=== PATIENT | male | born 1975 | race Caucasian/White ===

== ENCOUNTER 2016-08-13 18:00 | Inpatient (IN) | payer SELFPAY ==
[~2016-08-13] VITALS: Ht 180.3 cm; Wt 104.3 kg
[~2016-08-13 18:00] MED LIST: ALBU1.25 IH; ALBU4TAB3 PO; ALBU8.5H6 IH; FAMO20TA5 PO; HYDR-2666 PO; LORA0.5T96 PO; OMEP20TA63 PO; ONDA4TAB10 SL; THEO400T2 PO
[2016-08-13] MEDS ORDERED: IV NORMAL SALINE 1000ML BAG 1,000 ML IV ONE (19:15)
[2016-08-13 19:17] LABS: BASO # 0.1 x10^3/uL (0.0-0.2); BASO % 1 % (0-3); EOS % 3 % (0-3); HEMOGLOBIN 17.1 g/dL (13.0-17.5); LYMPH # 2.8 x10^3/uL (1.0-4.8); LYMPH % 36 % (24-48); MEAN CORPUSCULAR HEMOGLOBIN 30 pg (25-35); MEAN CORPUSCULAR HGB CONC 35 g/dL (31-37); MEAN CORPUSCULAR VOLUME 86 fL (79-100); MONO % 9 % (0-9); NEUT % 52 % (31-73); PLATELET COUNT 192 x10^3/uL (140-400); RED BLOOD COUNT 5.71 x10^6/uL (4.30-5.70); RED CELL DISTRIBUTION WIDTH 14.8 % (11.5-14.5); WHITE BLOOD COUNT 7.9 x10^3/uL (4.0-11.0)
[2016-08-13 19:25] LABS: BARBITURATES NEG (NEG); BENZODIAZEPINES NEG (NEG); CANNABINOIDS NEG (NEG); COCAINE NEG (NEG); METHADONE NEG (NEG); OPIATES NEG (NEG); PHENCYCLIDINE NEG (NEG)
[2016-08-13 19:30] LABS: ETHANOL, URINE POS (NEG)
[2016-08-13 19:35] LABS: ALBUMIN 3.7 g/dL (3.4-5.0); ALBUMIN/GLOBULIN RATIO 0.8 (1.0-1.7); CREATININE 1.1 mg/dL (0.7-1.3); GFR 74.5; POTASSIUM 3.1 mmol/L (3.5-5.1); TOTAL BILIRUBIN 0.6 mg/dL (0.2-1.0); TOTAL PROTEIN 8.1 g/dL (6.4-8.2)
[2016-08-13 19:36] LABS: PROTHROMBIN TIME PATIENT 12.9 SEC (11.7-14.0)
[2016-08-13] MEDS ORDERED: ONDANSETRON PF 4 MG/2 ML VIAL. IV ONE (19:45)
[2016-08-13] MEDS ORDERED: MVI, ADULT NO.4 WITH VIT K 10 ML, FOLIC ACID 1 MG, THIAMINE 100 MG in IV DEXTROSE 5 %-0... IV ONE ×4 (19:45)
--- NOTE | 2016-08-13 19:56 | RAD ---
PROCEDURE CT cervical spine without contrast. HISTORY Fall, ataxia, head and face injury TECHNIQUE Noncontrast CT imaging was performed of the cervical spine, multiplanar reconstruction images. Exposure: One or more of the following individualized dose reduction techniques were utilized for this exam: 1. Automated exposure control. 2. Adjustment of the mA and/or kV according to patient size. 3. Use of iterative reconstruction technique. COMPARISON None FINDINGS No acute cervical spine fracture is identified. There is facet hypertrophic change greatest on the right at C2-C3 and C3-4. There is negligible anterior spondylolisthesis at C2-3. There is negligible disc osteophyte complex at C3-4 also at C5-C6. No significant osseous cervical spinal stenosis is identified. There is mild cervical levoscoliosis. There is some partial fusion of the lateral masses of C1 to the occipital condyles. IMPRESSION 1. No acute cervical spine fracture is identified. 2. There is facet degenerative change of the superior cervical spine greater on the right, negligible anterior spondylolisthesis C2-3. 3. There is mild cervical levoscoliosis. 4. There is some partial fusion of the lateral masses of C1 to the occipital condyles. Electronically signed by: Rayshawn Holliday MD (Aug 13, 2016 19:55:26)
[2016-08-13 20:01] LABS: CALCIUM 8.6 mg/dL (8.5-10.1)
[2016-08-13 20:11] LABS: OBC FLU VALID
--- NOTE | 2016-08-13 20:52 | RAD ---
CT head and maxillofacial without Indication: Fall with head and facial injury. Axial imaging through the brain and facial bones was performed without contrast. Sagittal and coronal reformations of the facial bones were also performed. CT brain: The ventricles and sulci are within normal limits. No sulcal effacement, midline shift or hemorrhage is detected. The cisterns are patent. Impression: No acute intracranial process is detected. CT maxillofacial: The mandible is intact. The zygomatic arches appear intact. The maxillary sinus bravo are intact. No displaced nasal bone fracture is seen. The orbital bravo appear intact. There is mucosal thickening of ethmoid air cells as well as the maxillary sinuses. Impression: Paranasal sinus mucosal disease. No facial bone fracture is detected. Electronically signed by: Tio Helms MD (Aug 13, 2016 20:51:13)
[2016-08-13] MEDS ORDERED: ACETAMINOPHEN 325 MG TABLET. PO PRN (21:15)
[2016-08-13] MEDS ORDERED: ALBUTEROL SULFATE 2.5 MG/3 ML NEBU. NEB PRN (21:15)
--- NOTE | 2016-08-13 21:17 | PDOC1 ---
History and Physical Date of Admission Date of Admission 08/13/16 Identification/Chief Complaint Chief Complaint fall Problems: Source Source: Caregiver, Chart review, Patient History of Present Illness History of Present Illness 41yo M , heavy drinker ,comes post fall 5ds ago, and abd pain. Pt is drining daily , about 750cc wisky daily, usually had hand tremors for withdrawl , denies seizure. He STOOd up 5ds ago, then fell facing down. He said he didnot drink for 12 hours that day, denies drank. Since then, He felt not himself, with unsteady gait, and N/V daily with some LUQ abd pain. However, still drink 300cc ETOH daily. has asthma, use duoneb 4-[address] all neg Past Medical History Pulmonary: Asthma Past Surgical History Past Surgical History: No pertinent history Family History Family History: Hypertension Social History Smoke: No ALCOHOL: heavy Drugs: Marijuana Current Problem List Problem List Problems Medical Problems: (1) Pancreatitis Status: Acute (2) Syncope Status: Acute Current Medications Current Medications Current Medications Medications (Trade) Dose Ordered Sig/Wil Start Time Stop Time Status Last Admin Dose Admin Acetaminophen (Tylenol) 650 mg PRN Q6HRS PRN 08/13/16 21:15 UNV Folic Acid (Folic Acid) 1 mg DAILY 08/14/16 09:00 UNV Lorazepam (Ativan) 2 mg PRN Q4HRS PRN 08/13/16 21:15 UNV Multivitamins/ Minerals/Folic Acid/Thiamine HCl/ Dextrose/Sodium Chloride (Infuvite Adult/ Iv D5% - 1/2 NS) 1,011.2 ml @ 1,000 mls/ hr 1X ONCE 08/13/16 19:45 08/13/16 20:45 DC 08/13/16 19:49 1,000 MLS/HR Ondansetron HCl (Zofran) 4 mg PRN Q6HRS PRN 08/13/16 21:15 UNV Ondansetron HCl 4 mg 4 mg 1X ONCE 08/13/16 19:45 08/13/16 19:46 DC 08/13/16 19:20 4 MG Sodium Chloride (Iv Sodium Chloride 0.9% 1000ml Bag) 1,000 ml @ 1,000 mls/hr 1X ONCE 08/13/16 19:15 08/13/16 20:14 DC 08/13/16 19:20 1,000 MLS/HR Thiamine HCl (Vitamin B-1) 100 mg DAILY 08/14/16 09:00 UNV Allergies Allergies Allergies Coded Allergies Type Severity Reaction Last Updated Verified No Known Drug Allergies 04/30/16 No ROS Review of System CONSTITUTIONAL: No fever or chills EYES: No recent changes SKIN: No rash or itching CARDIOVASCULAR: No chest pain, syncope, palpitations, or edema RESPIRATORY: No SOB or cough GASTROINTESTINAL: No nausea, vomiting or abdominal pain NEUROLOGICAL: No headaches or weakness ENDOCRINE: No cold or heat intolerance GENITOURINARY: No urgency or frequency of urination MUSCULOSKELETAL: No back pain or joint pain LYMPHATICS: No enlarged lymph nodes PSYCHIATRIC: No anxiety or depression Physical Exam Physical Exam GEN.: No apparent distress. Alert and oriented. HEENT: Head is normocephalic, atraumatic. neck collar on NECK: Supple. LUNGS: Clear to auscultation. HEART: RRR, S1, S2 present. Peripheral pulses intact ABDOMEN: Soft, nontender. Positive bowel sounds. EXTREMITIES: Without any cyanosis. NEUROLOGIC: Normal speech, normal tone PSYCHIATRIC: Normal affect, normal mood. SKIN: No ulcerations Vitals Vitals Vital Signs Date Time Temp Pulse Resp B/P Pulse Ox O2 Delivery O2 Flow Rate FiO2 08/13/16 19:04 98.1 85 16 149/99 98 Room Air 98.1 Labs Labs Laboratory Tests Test 08/13/16 18:30 08/13/16 19:26 White Blood Count 7.9x10^3/uL (4.0-11.0) Red Blood Count 5.71x10^6/uL (4.30-5.70) Hemoglobin 17.1g/dL (13.0-17.5) Hematocrit 49.0% (39.0-53.0) Mean Corpuscular Volume 86fL (79-100) Mean Corpuscular Hemoglobin 30pg (25-35) Mean Corpuscular Hemoglobin Concent 35g/dL (31-37) Red Cell Distribution Width 14.8% (11.5-14.5) Platelet Count 192x10^3/uL (140-400) Neutrophils (%) (Auto) 52% (31-73) Lymphocytes (%) (Auto) 36% (24-48) Monocytes (%) (Auto) 9% (0-9) Eosinophils (%) (Auto) 3% (0-3) Basophils (%) (Auto) 1% (0-3) Neutrophils # (Auto) 4.1x10^3uL (1.8-7.7) Lymphocytes # (Auto) 2.8x10^3/uL (1.0-4.8) Monocytes # (Auto) 0.7x10^3/uL (0.0-1.1) Eosinophils # (Auto) 0.2x10^3/uL (0.0-0.7) Basophils # (Auto) 0.1x10^3/uL (0.0-0.2) Prothrombin Time 12.9SEC (11.7-14.0) Prothromb Time International Ratio 1.0 (0.8-1.1) Activated Partial Thromboplast Time 30SEC (24-38) Sodium Level 138mmol/L (136-145) Potassium Level 3.1mmol/L (3.5-5.1) Chloride Level 96mmol/L (98-107) Carbon Dioxide Level 30mmol/L (21-32) Anion Gap 12 (6-14) Blood Urea Nitrogen 19mg/dL (8-26) Creatinine 1.1mg/dL (0.7-1.3) Estimated GFR (Cockcroft-Gault) 74.5 BUN/Creatinine Ratio 17 (6-20) Glucose Level 126mg/dL (70-99) Calcium Level 8.6mg/dL (8.5-10.1) Total Bilirubin 0.6mg/dL (0.2-1.0) Aspartate Amino Transf (AST/SGOT) 91U/L (15-37) Alanine Aminotransferase (ALT/SGPT) 53U/L (16-63) Alkaline Phosphatase 79U/L (46-116) Troponin I Quantitative < 0.017ng/mL (0.000-0.055) Total Protein 8.1g/dL (6.4-8.2) Albumin 3.7g/dL (3.4-5.0) Albumin/Globulin Ratio 0.8 (1.0-1.7) Lipase 671U/L (73-393) Urine Opiates Screen Neg (NEG) Urine Methadone Screen Neg (NEG) Urine Barbiturates Neg (NEG) Urine Phencyclidine Screen Neg (NEG) Urine Amphetamine/Methamphetamine Neg (NEG) Urine Benzodiazepines Screen Neg (NEG) Urine Cocaine Screen Neg (NEG) Urine Cannabinoids Screen Neg (NEG) Ethyl Alcohol Level 330mg/dL (0-10) Urine Ethyl Alcohol Pos (NEG) Influenza Type A Antigen Negative (NEGATIVE) Influenza Type B Antigen Negative (NEGATIVE) Laboratory Tests Test 08/13/16 18:30 08/13/16 19:26 White Blood Count 7.9x10^3/uL (4.0-11.0) Red Blood Count 5.71x10^6/uL (4.30-5.70) Hemoglobin 17.1g/dL (13.0-17.5) Hematocrit 49.0% (39.0-53.0) Mean Corpuscular Volume 86fL (79-100) Mean Corpuscular Hemoglobin 30pg (25-35) Mean Corpuscular Hemoglobin Concent 35g/dL (31-37) Red Cell Distribution Width 14.8% (11.5-14.5) Platelet Count 192x10^3/uL (140-400) Neutrophils (%) (Auto) 52% (31-73) Lymphocytes (%) (Auto) 36% (24-48) Monocytes (%) (Auto) 9% (0-9) Eosinophils (%) (Auto) 3% (0-3) Basophils (%) (Auto) 1% (0-3) Neutrophils # (Auto) 4.1x10^3uL (1.8-7.7) Lymphocytes # (Auto) 2.8x10^3/uL (1.0-4.8) Monocytes # (Auto) 0.7x10^3/uL (0.0-1.1) Eosinophils # (Auto) 0.2x10^3/uL (0.0-0.7) Basophils # (Auto) 0.1x10^3/uL (0.0-0.2) Prothrombin Time 12.9SEC (11.7-14.0) Prothromb Time International Ratio 1.0 (0.8-1.1) Activated Partial Thromboplast Time 30SEC (24-38) Sodium Level 138mmol/L (136-145) Potassium Level 3.1mmol/L (3.5-5.1) Chloride Level 96mmol/L (98-107) Carbon Dioxide Level 30mmol/L (21-32) Anion Gap 12 (6-14) Blood Urea Nitrogen 19mg/dL (8-26) Creatinine 1.1mg/dL (0.7-1.3) Estimated GFR (Cockcroft-Gault) 74.5 BUN/Creatinine Ratio 17 (6-20) Glucose Level 126mg/dL (70-99) Calcium Level 8.6mg/dL (8.5-10.1) Total Bilirubin 0.6mg/dL (0.2-1.0) Aspartate Amino Transf (AST/SGOT) 91U/L (15-37) Alanine Aminotransferase (ALT/SGPT) 53U/L (16-63) Alkaline Phosphatase 79U/L (46-116) Troponin I Quantitative < 0.017ng/mL (0.000-0.055) Total Protein 8.1g/dL (6.4-8.2) Albumin 3.7g/dL (3.4-5.0) Albumin/Globulin Ratio 0.8 (1.0-1.7) Lipase 671U/L (73-393) Urine Opiates Screen Neg (NEG) Urine Methadone Screen Neg (NEG) Urine Barbiturates Neg (NEG) Urine Phencyclidine Screen Neg (NEG) Urine Amphetamine/Methamphetamine Neg (NEG) Urine Benzodiazepines Screen Neg (NEG) Urine Cocaine Screen Neg (NEG) Urine Cannabinoids Screen Neg (NEG) Ethyl Alcohol Level 330mg/dL (0-10) Urine Ethyl Alcohol Pos (NEG) Influenza Type A Antigen Negative (NEGATIVE) Influenza Type B Antigen Negative (NEGATIVE) VTE Prophylaxis Ordered VTE Prophylaxis Devices: Yes VTE Pharmacological Prophylaxi: Yes Assessment/Plan Assessment/Plan 1. fall 2. AMS, post concussion syndrome vs. 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 abd pain with mild pancreatitis 4. N/V 5. hypotassium 6. heavy drinker 7. marijuana drug abuse plan: 1. neuro consult 2. vitb1, FA daily 3. PTOT 4. lipase daily, abd US dvt ppx ativan BIGG Pollard MD Aug 13, 2016 21:17
[2016-08-13 21:30] LABS: MAGNESIUM 1.8 mg/dL (1.8-2.4); PHOSPHORUS 3.6 mg/dL (2.6-4.7)
[2016-08-13] MEDS ORDERED: POTASSIUM CHLORIDE 20 MEQ TABLET.ER. PO ONE (21:30)
--- NOTE | 2016-08-13 21:54 | ED.ADGEN ---
Past Medical History Past Medical History: Alcoholism, Asthma, GERD, Hypertension Past Surgical History: Tonsillectomy Additional Past Surgical Histo: adnoidectomy, left eye Alcohol Use: Heavy Drug Use: Marijuana Adult General Chief Complaint Chief Complaint: SYNCOPE HPI HPI Patient is a 41 year old man, history of alcohol abuse, GERD, hypertension, COPD, who presents to the emergency department with multiple complaints. Patient states that he had a fall about 5 days ago, "face planted", from which she has residual bruising around his right eye. Patient states that he's felt unsteady with walking since that time, and is almost fallen multiple times. He states that he has had nausea, vomiting, and left lower quadrant abdominal pain consistent with previous episodes of pancreatitis since that time as well. Patient states that he's had several episodes of "either nearly blacking out or blacking out" since that time. His complaining of ambulatory dysfunction, feels he cannot walk a straight line. States had mild blurry vision, and some feeling of being "foggy", although he is awake alert and oriented at this time, able to answer questions appropriately. He does admit to drinking today, states that he generally drinks about 750 mLs of vodka a day. Denies any drugs, does smoke cigarettes. No focal deficits reported, no other injuries, no other complaints. He states that he feels "very dehydrated". Patient states he's noted some streaks of blood in his emesis today, has been vomiting for the past several days. He states he did note dark stools, denies any cassidy blood. Review of Systems Review of Systems Constitutional: Denies fever or chills. [] Eyes: Denies change in visual acuity. [] HENT: Denies nasal congestion or sore throat. [] Respiratory: Denies cough or shortness of breath. [] Cardiovascular: Denies chest pain or edema. [] GI: Left lower quadrant abdominal pain, nausea, vomiting, : Denies dysuria. [] Musculoskeletal: Denies back pain or joint pain. [] Integument: Denies rash. [] Neurologic: Denies headache, focal weakness or sensory changes. [] Endocrine: Denies polyuria or polydipsia. [] Lymphatic: Denies swollen glands. [] Psychiatric: Denies depression or anxiety. [] Current Medications Current Medications Current Medications Medications (Trade) Dose Ordered Sig/Wil Start Time Stop Time Status Last Admin Dose Admin Multivitamins/ Minerals/Folic Acid/Thiamine HCl/ Dextrose/Sodium Chloride (Infuvite Adult/ Iv D5% - 1/2 NS) 1,011.2 ml @ 1,000 mls/ hr 1X ONCE 08/13/16 19:45 08/13/16 20:45 DC 08/13/16 19:49 1,000 MLS/HR Ondansetron HCl 4 mg 4 mg 1X ONCE 08/13/16 19:45 08/13/16 19:46 DC 08/13/16 19:20 4 MG Sodium Chloride (Iv Sodium Chloride 0.9% 1000ml Bag) 1,000 ml @ 1,000 mls/hr 1X ONCE 08/13/16 19:15 08/13/16 20:14 DC 08/13/16 19:20 1,000 MLS/HR Allergies Allergies Allergies Coded Allergies Type Severity Reaction Last Updated Verified No Known Drug Allergies 04/30/16 No Physical Exam Physical Exam Constitutional: Well developed, well nourished, no acute distress, non-toxic appearance. [] HENT: Normocephalic, patient with healing ecchymosis noted underneath the right eye, no nystagmus, no crepitus or bony point tenderness, bilateral external ears normal, oropharynx moist, no oral exudates, nose normal. [] Eyes: PERRLA, EOMI, conjunctiva normal, no discharge. [] Neck: Normal range of motion, no tenderness, supple, no stridor. [] Cardiovascular:Heart rate regular rhythm, no murmur, S1, S2, no rubs or gallops , mild tachycardia. [] Lungs & Thorax: Bilateral breath sounds clear to auscultation, no wheezing, rhonchi, rales. No chest tenderness or crepitus. [] Abdomen: Bowel sounds normal, soft, mild tenderness to palpation in the left lower quadrant, no rebound, rigidity, no guarding, no masses, no pulsatile masses. [] Skin: Warm, dry, no erythema, no rash. [] Back: No tenderness, no CVA tenderness. [] Extremities: No tenderness, no cyanosis, no clubbing, ROM intact, no edema. Negative Homans sign. [] Neurologic: Alert and oriented X 3, normal motor function, normal sensory function, no focal deficits noted. [] Psychologic: Affect normal, judgement normal, mood normal. [] Declined rectal examination in the ED. Current Patient Data Vital Signs Vital Signs Date Time Temp Pulse Resp B/P Pulse Ox O2 Delivery O2 Flow Rate FiO2 08/13/16 19:04 98.1 85 16 149/99 98 Room Air 98.1 Lab Values Laboratory Tests Test 08/13/16 18:30 08/13/16 19:26 White Blood Count 7.9x10^3/uL (4.0-11.0) Red Blood Count 5.71x10^6/uL (4.30-5.70) H Hemoglobin 17.1g/dL (13.0-17.5) Hematocrit 49.0% (39.0-53.0) Mean Corpuscular Volume 86fL (79-100) Mean Corpuscular Hemoglobin 30pg (25-35) Mean Corpuscular Hemoglobin Concent 35g/dL (31-37) Red Cell Distribution Width 14.8% (11.5-14.5) H Platelet Count 192x10^3/uL (140-400) Neutrophils (%) (Auto) 52% (31-73) Lymphocytes (%) (Auto) 36% (24-48) Monocytes (%) (Auto) 9% (0-9) Eosinophils (%) (Auto) 3% (0-3) Basophils (%) (Auto) 1% (0-3) Neutrophils # (Auto) 4.1x10^3uL (1.8-7.7) Lymphocytes # (Auto) 2.8x10^3/uL (1.0-4.8) Monocytes # (Auto) 0.7x10^3/uL (0.0-1.1) Eosinophils # (Auto) 0.2x10^3/uL (0.0-0.7) Basophils # (Auto) 0.1x10^3/uL (0.0-0.2) Prothrombin Time 12.9SEC (11.7-14.0) Prothrombin Time INR 1.0 (0.8-1.1) PTT 30SEC (24-38) Sodium Level 138mmol/L (136-145) Potassium Level 3.1mmol/L (3.5-5.1) L Chloride Level 96mmol/L (98-107) L Carbon Dioxide Level 30mmol/L (21-32) Anion Gap 12 (6-14) Blood Urea Nitrogen 19mg/dL (8-26) Creatinine 1.1mg/dL (0.7-1.3) Estimated GFR (Cockcroft-Gault) 74.5 BUN/Creatinine Ratio 17 (6-20) Glucose Level 126mg/dL (70-99) H Calcium Level 8.6mg/dL (8.5-10.1) Phosphorus Level 3.6mg/dL (2.6-4.7) Magnesium Level 1.8mg/dL (1.8-2.4) Total Bilirubin 0.6mg/dL (0.2-1.0) Aspartate Amino Transferase (AST) 91U/L (15-37) H Alanine Aminotransferase (ALT) 53U/L (16-63) Alkaline Phosphatase 79U/L (46-116) Troponin I Quantitative < 0.017ng/mL (0.000-0.055) Total Protein 8.1g/dL (6.4-8.2) Albumin 3.7g/dL (3.4-5.0) Albumin/Globulin Ratio 0.8 (1.0-1.7) L Lipase 671U/L (73-393) H Urine Opiates Screen Neg (NEG) Urine Methadone Screen Neg (NEG) Urine Barbiturates Neg (NEG) Urine Phencyclidine Screen Neg (NEG) Urine Amphetamine/Methamphetamine Neg (NEG) Urine Benzodiazepines Screen Neg (NEG) Urine Cocaine Screen Neg (NEG) Urine Cannabinoids Screen Neg (NEG) Ethyl Alcohol Level 330mg/dL (0-10) H Urine Ethyl Alcohol Pos (NEG) Influenza Type A Antigen Negative (NEGATIVE) Influenza Type B Antigen Negative (NEGATIVE) Laboratory Tests 08/13/16 18:30 Laboratory Tests 08/13/16 18:30 EKG EKG EC: Sinus rhythm, heart rate 91 beats minute, upright axis, QTC of 432, LA 160, QRS of 90, patient with mild baseline artifact noted, contour abnormalities is noted in the inferior leads, no ST elevations or depressions, no evidence of acute ST abnormalities. As interpreted by me. Interpretation Time: [facility] [address] [place], [place] [id number] IMAGING REPORT Signed PATIENT: YAHIR OLIVEIRA ACCOUNT: [id number] : 1975 LOCATION: ER AGE: 41 SEX: M EXAM STATUS: REG ER ORD. PHYSICIAN: MOOK KIDD DO REASON: fall/ataxia PROCEDURE: HEAD AND MAXILLOFACIAL WO CT head and maxillofacial without Indication: Fall with head and facial injury. Axial imaging through the brain and facial bones was performed without contrast. Sagittal and coronal reformations of the facial bones were also performed. CT brain: The ventricles and sulci are within normal limits. No sulcal effacement, midline shift or hemorrhage is detected. The cisterns are patent. Impression: No acute intracranial process is detected. CT maxillofacial: The mandible is intact. The zygomatic arches appear intact. The maxillary sinus bravo are intact. No displaced nasal bone fracture is seen. The orbital bravo appear intact. There is mucosal thickening of ethmoid air cells as well as the maxillary sinuses. Impression: Paranasal sinus mucosal disease. No facial bone fracture is detected. Electronically signed by: Tio Helms MD (Aug 13, 2016 20:51:13) DICTATED and SIGNED BY: TIO HELMS MD DATE: 08/13/162050 CC: MOOK KIDD DO; HERMILA JACKSON MD ~ Radiology/Procedures Radiology/Procedures [] [facility] [address] [place] [address] IMAGING REPORT Signed PATIENT: YAHIR OLIVEIRA ACCOUNT: [id number] : 1975 LOCATION: ER AGE: 41 SEX: M EXAM STATUS: REG ER ORD. PHYSICIAN: MOOK KIDD DO REASON: fall/ataxia PROCEDURE: HEAD AND MAXILLOFACIAL WO CT head and maxillofacial without Indication: Fall with head and facial injury. Axial imaging through the brain and facial bones was performed without contrast. Sagittal and coronal reformations of the facial bones were also performed. CT brain: The ventricles and sulci are within normal limits. No sulcal effacement, midline shift or hemorrhage is detected. The cisterns are patent. Impression: No acute intracranial process is detected. CT maxillofacial: The mandible is intact. The zygomatic arches appear intact. The maxillary sinus bravo are intact. No displaced nasal bone fracture is seen. The orbital bravo appear intact. There is mucosal thickening of ethmoid air cells as well as the maxillary sinuses. Impression: Paranasal sinus mucosal disease. No facial bone fracture is detected. Electronically signed by: Tio Helms MD (Aug 13, 2016 20:51:13) DICTATED and SIGNED BY: TIO HELMS MD DATE: 08/13/162050 CC: MOOK KIDD DO; HERMILA JACKSON MD ~ Course & Med Decision Making Course & Med Decision Making Pertinent Labs and Imaging studies reviewed. (See chart for details) Patient's examination is consistent with likely recurrent pancreatitis, alcohol level resulted at 330, potassium of 3.1, no further vomiting in the ED, patient with a lipase of 671. Imaging of head, face and neck does not reveal any evidence of acutely concerning findings, c-collar was cleared in the ED without issue. Patient is agreeable for initial hospital, states he is feeling much better after receiving a banana bag in the ED. Findings as above discussed with Dr. Witt of internal medicine, patient accepted to her service as a full admission to the medical telemetry floor, consultation placed for Dr. Bowens of neurology, for patient's gait abnormalities, I did discuss the findings as above with patient, and he is agreeable for admission, patient's symptoms may all be due to his alcohol abuse. We'll place on alcohol withdrawal protocol, follow-up for studies including repeat lipase in a.m., ultrasound of the abdomen is pending at this time. Patient remained stable, comfortable, awaiting transfer to the floor without issue. Dragon Disclaimer Dragon Disclaimer This electronic medical record was generated, in whole or in part, using a voice recognition dictation system. Departure Impression: Primary Impression: Alcoholic pancreatitis Additional Impressions: Abdominal pain Syncope Disposition: 09 ADMITTED INPATIENT Admitting Physician: Joelle Witt Condition: IMPROVED Problem Qualifiers Primary Impression: Alcoholic pancreatitis Chronicity: acute Acute pancreatitis complication: unspecified Qualified Code: K85.20 - Alcohol induced acute pancreatitis without necrosis or infection Additional Impressions: Abdominal pain Abdominal location: left lower quadrant Qualified Code: R10.32 - Left lower quadrant pain Syncope Syncope type: unspecified Qualified Code: R55 - Syncope and collapse MOOK KIDD DO Aug 13, 2016 21:54
[2016-08-13] MEDS: CHLORDIAZEPOXIDE HCL 25 MG CAPSULE PO SCH (22:45)
[2016-08-13] MEDS ORDERED: BUDE10.2 IH (23:27)
[2016-08-13 23:41] VITALS: BP 149/99
[2016-08-13 23:42] VITALS: BP 133/87
--- NOTE | 2016-08-14 00:03 | ACF ---
Admission Forms Criteria SYNCOPE Clinical Indications for Admission to Inpatient Care ( Place 'X' for any and all applicable criteria): Admission is indicated for syncope and ANY ONE of the following (1)(2)(3)(4)(5) (6)(7) : [X]I. Inpatient admission required rather than observation care (Also use Syncope: Observation Care Criteria as appropriate) because of ANY ONE of the following: [ ]a) Hemodynamic instability that is severe or persistent [ ]b) Cardiac arrhythmias of immediate concern identified or strongly suspected (eg, needs electrophysiologic study) [ ]c) Acute coronary syndrome identified (Also use Myocardial Infarction or Angina Criteria form ) [ ]d) Structural cardiac disorder (eg, aortic stenosis) suspected as cause that requires immediate correction [ ]e) Respiratory symptoms (eg, dyspnea, tachypnea) that are severe or persistent [X]f) Neurologic signs or symptoms that are severe or persistent ( eg, stroke, seizures, altered mental status) [ ]g) Severe electrolyte abnormalities requiring inpatient care [ ]h) Supplemental oxygen or respiratory treatment for over 24 hrs that are performable only in acute inpatient setting [ ]i) IV fluid to replace significant ongoing (eg, for over 24 hrs ) losses (>3 L/m2 per day) [ ]j) Continuous intravenous infusion of anticoagulation, platelet inhibitor, vasoactive, or antiarrhythmic medication(15)(16) [ ]k) Pulmonary artery catheter monitoring [ ]l) Temporary pacemaker placement(17) [ ]m) Emergent cardioversion(18) [ ]n) Other conditions, treatment or monitoring requiring inpatient admission [ ]II. Suspicion of imminently dangerous cause (eg, rare causes like pericardial tamponade, pulmonary embolism) [ ]III. Syncope causing severe injury requiring hospitalization Extended stay beyond goal length of stay may be needed for(28) [ ]a) Dangerous arrhythmia(15)(23)(27)(29) [ ]b) Myocardial ischemia [ ]c) Seizure disorder [ ]d) Syncope-related injuries The original [facility] content created by [employer] has been revised. The portions of the content which have been revised are identified through the use of italic text or in bold, and [employer] has neither reviewed nor approved the modified material. All other unmodified content is copyright [employer]. Please see references footnoted in the original [facility] edition 2016 Admission Criteria Met?: Yes MAYUR BEAVERS Aug 14, 2016 00:03
[2016-08-14] MEDS: MORPHINE SULFATE 2 MG/ML DISP.SYRIN. IV PRN ×6 (00:45→23:55)
[2016-08-14] MEDS: ONDANSETRON PF 4 MG/2 ML VIAL. IV PRN ×3 (00:46→18:15)
[2016-08-14 03:37] VITALS: BP 139/83
[2016-08-14] MEDS: CHLORDIAZEPOXIDE HCL 25 MG CAPSULE PO SCH ×4 (03:50→19:55)
[2016-08-14 06:11] LABS: CALCIUM 8.6 mg/dL (8.5-10.1); CREATININE 1.1 mg/dL (0.7-1.3); GFR 74.5; POTASSIUM 3.7 mmol/L (3.5-5.1)
[2016-08-14 06:14] LABS: BASO % 1 % (0-3); EOS % 2 % (0-3); LYMPH # 2.5 x10^3/uL (1.0-4.8); LYMPH % 33 % (24-48); MEAN CORPUSCULAR HEMOGLOBIN 30 pg (25-35); MEAN CORPUSCULAR HGB CONC 34 g/dL (31-37); MEAN CORPUSCULAR VOLUME 88 fL (79-100); MONO % 10 % (0-9); NEUT % 54 % (31-73); PLATELET COUNT 158 x10^3/uL (140-400); RED BLOOD COUNT 5.01 x10^6/uL (4.30-5.70); RED CELL DISTRIBUTION WIDTH 14.6 % (11.5-14.5); WHITE BLOOD COUNT 7.5 x10^3/uL (4.0-11.0)
--- NOTE | 2016-08-14 06:27 | EKG ---
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
[2016-08-14 07:15] VITALS: BP 133/90
--- NOTE | 2016-08-14 07:39 | RAD ---
Abdominal ultrasound, 08/13/2016: History: Abdominal pain The gallbladder is mildly distended. It contains echogenic sludge. No definite gallstones are seen. The gallbladder bravo are not thickened. The common hepatic duct is of normal caliber. The hepatic echogenicity is diffusely increased suggesting fatty change. The liver measures 21 cm in craniocaudad extent. No hepatic mass is evident. The pancreas was largely obscured by overlying bowel. The spleen is within normal limits in size measuring 12.6 cm in length. No renal abnormality is detected. The visualized portions of the aorta and inferior vena cava are unremarkable. Portions of the aorta were obscured by overlying bowel. IMPRESSION: 1. The gallbladder is distended and contains sludge. No gallstones are evident. 2. Hepatomegaly with hepatic steatosis.
--- NOTE | 2016-08-14 08:46 | RAD ---
Portable chest, 08/13/2016: History: Syncope Comparison is made to a study from 11/20/2009. The heart size and pulmonary vascularity are normal. No pulmonary infiltrates are seen. There is no evidence of pleural fluid. IMPRESSION: No acute cardiopulmonary abnormality is detected.
[2016-08-14] MEDS: FOLIC ACID 1 MG TABLET PO SCH (09:00)
[2016-08-14] MEDS: THIAMINE 100 MG TABLET. PO SCH (09:00)
[2016-08-14] MEDS: ENOXAPARIN 40 MG/0.4 ML DISP.SYRIN. SQ SCH (09:01)
[2016-08-14] MEDS: LORAZEPAM 2 MG/ML VIAL IV PRN ×3 (09:03→19:58)
[2016-08-14] MEDS: MVI, ADULT NO.4 WITH VIT K 10 ML, THIAMINE 100 MG, FOLIC ACID 1 MG in IV NORMAL SALINE ... IV SCH ×4 (09:30)
[2016-08-14] MEDS: PROCHLORPERAZINE 10 MG/2 ML VIAL. IV PRN ×2 (10:48→23:55)
--- NOTE | 2016-08-14 11:12 | PDOC ---
PROGRESS NOTES Chief Complaint Chief Complaint EtOH pancreatitis s/p fall ASSESSMENT AND PLAN: 1. EtOH pancreatitis: lipase sl improved, clinically ongoing. clear liquids as tolerated. cont IVF. monitor 2. EtOH gastritis: PPI 3. Nausea: poor response to zofran. add reglan, can alternate PRN 4. EtOH hepatitis: sl elevates in AST. monitor 5. EtOH toxicity: banana bag. ativan PRN for W/D sx 6. Hypokalemia: resolved 7. prophylaxis: PPI, lovenox Vitals Vitals Vital Signs Date Time Temp Pulse Resp B/P Pulse Ox O2 Delivery O2 Flow Rate FiO2 08/14/16 10:31 98 Room Air 08/14/16 07:15 96.6 72 18 133/90 96.6 Physical Exam General: Alert, Oriented X3, Cooperative Heart: Regular rate Lungs: Clear Abdomen: Normal bowel sounds, Other (LUQ TTP) Extremities: No edema Skin: No rashes Labs LABS Laboratory Tests Test 08/13/16 18:30 08/13/16 19:26 08/14/16 05:20 White Blood Count 7.9x10^3/uL (4.0-11.0) 7.5x10^3/uL (4.0-11.0) Red Blood Count 5.71x10^6/uL (4.30-5.70) 5.01x10^6/uL (4.30-5.70) Hemoglobin 17.1g/dL (13.0-17.5) 15.0g/dL (13.0-17.5) Hematocrit 49.0% (39.0-53.0) 44.0% (39.0-53.0) Mean Corpuscular Volume 86fL (79-100) 88fL (79-100) Mean Corpuscular Hemoglobin 30pg (25-35) 30pg (25-35) Mean Corpuscular Hemoglobin Concent 35g/dL (31-37) 34g/dL (31-37) Red Cell Distribution Width 14.8% (11.5-14.5) 14.6% (11.5-14.5) Platelet Count 192x10^3/uL (140-400) 158x10^3/uL (140-400) Neutrophils (%) (Auto) 52% (31-73) 54% (31-73) Lymphocytes (%) (Auto) 36% (24-48) 33% (24-48) Monocytes (%) (Auto) 9% (0-9) 10% (0-9) Eosinophils (%) (Auto) 3% (0-3) 2% (0-3) Basophils (%) (Auto) 1% (0-3) 1% (0-3) Neutrophils # (Auto) 4.1x10^3uL (1.8-7.7) 4.1x10^3uL (1.8-7.7) Lymphocytes # (Auto) 2.8x10^3/uL (1.0-4.8) 2.5x10^3/uL (1.0-4.8) Monocytes # (Auto) 0.7x10^3/uL (0.0-1.1) 0.8x10^3/uL (0.0-1.1) Eosinophils # (Auto) 0.2x10^3/uL (0.0-0.7) 0.1x10^3/uL (0.0-0.7) Basophils # (Auto) 0.1x10^3/uL (0.0-0.2) 0.0x10^3/uL (0.0-0.2) Prothrombin Time 12.9SEC (11.7-14.0) Prothromb Time International Ratio 1.0 (0.8-1.1) Activated Partial Thromboplast Time 30SEC (24-38) Sodium Level 138mmol/L (136-145) 138mmol/L (136-145) Potassium Level 3.1mmol/L (3.5-5.1) 3.7mmol/L (3.5-5.1) Chloride Level 96mmol/L (98-107) 97mmol/L (98-107) Carbon Dioxide Level 30mmol/L (21-32) 27mmol/L (21-32) Anion Gap 12 (6-14) 14 (6-14) Blood Urea Nitrogen 19mg/dL (8-26) 18mg/dL (8-26) Creatinine 1.1mg/dL (0.7-1.3) 1.1mg/dL (0.7-1.3) Estimated GFR (Cockcroft-Gault) 74.5 74.5 BUN/Creatinine Ratio 17 (6-20) Glucose Level 126mg/dL (70-99) 112mg/dL (70-99) Calcium Level 8.6mg/dL (8.5-10.1) 8.6mg/dL (8.5-10.1) Phosphorus Level 3.6mg/dL (2.6-4.7) Magnesium Level 1.8mg/dL (1.8-2.4) Total Bilirubin 0.6mg/dL (0.2-1.0) Aspartate Amino Transf (AST/SGOT) 91U/L (15-37) Alanine Aminotransferase (ALT/SGPT) 53U/L (16-63) Alkaline Phosphatase 79U/L (46-116) Troponin I Quantitative < 0.017ng/mL (0.000-0.055) Total Protein 8.1g/dL (6.4-8.2) Albumin 3.7g/dL (3.4-5.0) Albumin/Globulin Ratio 0.8 (1.0-1.7) Lipase 671U/L (73-393) 511U/L (73-393) Urine Opiates Screen Neg (NEG) Urine Methadone Screen Neg (NEG) Urine Barbiturates Neg (NEG) Urine Phencyclidine Screen Neg (NEG) Urine Amphetamine/Methamphetamine Neg (NEG) Urine Benzodiazepines Screen Neg (NEG) Urine Cocaine Screen Neg (NEG) Urine Cannabinoids Screen Neg (NEG) Ethyl Alcohol Level 330mg/dL (0-10) Urine Ethyl Alcohol Pos (NEG) Influenza Type A Antigen Negative (NEGATIVE) Influenza Type B Antigen Negative (NEGATIVE) Review of Systems Review of Systems in pain, remorseful about being back in hospital for EtOH abuse ANDREW YOST MD Aug 14, 2016 11:12
[2016-08-14 11:15] VITALS: BP 139/88
[2016-08-14 14:57] VITALS: BP 150/97
[2016-08-14 19:00] VITALS: BP 155/117
--- NOTE | 2016-08-14 19:06 | PDOC2 ---
NEUROLOGY CONSULT Date of Admission Date of Admission DATE: 08/14/16 TIME: 18:56 Reason for Consult Reason for Consult: IMPRESSION: Toxic encephalopathy. metabolic encephalopathy. Ataxia. Alcohol intoxication, acute on chronic, alcohol level 330. Pancreatitis. Hepatomegaly. Elevated hepatic enzymes. Tremors. RECOMMENDATIONS/PLAN: Vit B1 supplement. HCT performed, no SAH or ICH. Lab: see orders. Patient education for alcohol abstinence. OT/PT. HISTORY OF THE PRESENT ILLNESS: 41-y-old male patient with history of alcohol drinking for many years. he stated he drinks Wisky about 80% with small amount mix maybe down to 60% of alcohol a cup almost on a daily basis. He developed symptoms as described above to come to the ER of [facility]. His alcohol level was found 330. PAST MEDICAL HISTORY: Please see above. PAST SURGERY HISTORY: No major surgery recently. ALLERGY: Unknown MEDICATIONS: Refer to [facility] HISTORY: Unknown. SOCIAL HISTORY: Lives at home. Denies illicit drug use. He drinks a cup of 60% alcohol a day for many years. REVIEW OF SYSTEMS: Constitutional: No malnutrition, weight loss, cachexia. Head: No traumatic brain or head injury. Skin: No edema, or rash. Ear: No infection, tinnitus. Eyes: No vision loss or color blindness. Nose: No bleeding or purulent discharges. Hearing: No hearing decrease. Neck: No injury. Cardiac: No IL, arrhythmia Pulmonary: No COPD. GI: No GI ulcer, GI bleeding. Urinary/genital: No dysuria, hematuria, incontinence, urinary retention. Endocrinologic: No cousin face, craniofacial dysmorphism, polydactyly, goiter. Skeletomuscular: No muscular atrophy, deformity. Neurological: see HP. Psychiatric: alcohol use/abuse. Otherwise, not [id number] review of systems. PHYSICAL EXAMINATION: General appearance is in subacute distress. HEENT: Normocephalic and nontraumatic. Eyes, nose, ears, and throat are unremarkable. Neck is supple. No lymphadenopathy. No bruits are heard over the carotid artery. No crepitus. Cardiovascular: S1, S2, regular rate and rhythm. Pulmonary: Clear to auscultation bilaterally. Abdomen: Bowel sounds are positive. Extremities: No rash, lesions, or edema. No restriction of range of motion NEUROLOGICAL EXAMINATION: Drowsiness. Oriented to place and person. PERRL. EOMI. CN: no focal findings. Muscle tone: within normal. Muscle strength: 5 DTR: 2 Plantar reflex: Flexor response bilaterally Gait: not examined in bed. Sensory exam: no abnormal findings. Mild cerebellar signs elicited. F-T-N test not accurate. Current Medications Current Medications Current Medications Sodium Chloride (Iv Sodium Chloride 0.9% 1000ml Bag) 1,000 ml @ 1,000 mls/hr 1X ONCE IV Last administered on 08/13/16 19:20; Start 08/13/16 at 19:15; Stop 08/13/16 at 20:14; Status DC Ondansetron HCl 4 mg 4 mg 1X ONCE IV Last administered on 08/13/16 19:20; Start 08/13/16 at 19:45; Stop 08/13/16 at 19:46; Status DC Multivitamins/ Minerals/Folic Acid/Thiamine HCl/ Dextrose/Sodium Chloride ( Infuvite Adult/ Iv D5% - 1/ NS) 1,011.2 ml @ 1,000 mls/ hr 1X ONCE IV Last administered on 08/13/16 19:49; Start 08/13/16 at 19:45; Stop 08/13/16 at 20:45 ; Status DC Acetaminophen (Tylenol) 650 mg PRN Q6HRS PRN PO FEVER Last administered on 08/13 22:45; Start 08/13/16 at 21:15 Ondansetron HCl (Zofran) 4 mg PRN Q6HRS PRN IV NAUSEA Last administered on 06:16; Start 08/13/16 at 21:15; Stop 08/14/16 at 10:29; Status DC Thiamine HCl (Vitamin B-1) 100 mg DAILY PO Last administered on 08/14/16 09:00 ; Start 08/14/16 at 09:00 Folic Acid (Folic Acid) 1 mg DAILY PO Last administered on 08/14/16 09:00; Start 08/14/16 at 09:00 Lorazepam (Ativan) 1 mg PRN Q6HRS PRN PO ANXIETY / AGITATION; Start 08/13/16 at 21:15 Lorazepam (Ativan) 2 mg PRN Q4HRS PRN IV ANXIETY / AGITATION Last administered on 08/14/16 13:02; Start 08/13/16 at 21:15 Enoxaparin Sodium (Lovenox 40mg Syringe) 40 mg DAILY SQ Last administered on 09:01; Start 08/14/16 at 09:00 Albuterol Sulfate (Ventolin Neb Soln) 2.5 mg PRN Q4HRS PRN NEB SHORTNESS OF BREATH; Start 08/13/16 at 21:15 Potassium Chloride (Klor-Con) 40 meq 1X ONCE PO Last administered on 22:20; Start 08/13/16 at 21:30; Stop 08/13/16 at 21:31; Status DC Albuterol/ Ipratropium 3 ml 3 ml RTQID NEB ; Start 08/14/16 at 08:00 Multivitamins/ Minerals/Thiamine HCl/Folic Acid/ Sodium Chloride (Infuvite Adult / Iv Sodium Chloride 0.9% 1000ml Bag) 1,011.2 ml @ 100 mls/ hr DAILY IV Last administered on 08/14/16 09:30; Start 08/14/16 at 09:00; Stop 08/19/16 at 08:59 Chlordiazepoxide (Librium) 25 mg Q6H PO Last administered on 08/14/16 16:01; Start 08/13/16 at 22:00; Stop 08/15/16 at 04:01 Morphine Sulfate 2 mg PRN Q2HR PRN IV PAIN Last administered on 08/14/16 04:45 ; Start 08/14/16 at 00:30; Stop 08/14/16 at 07:43; Status DC Morphine Sulfate 2 mg PRN Q4HRS PRN IV PAIN Last administered on 08/14/16 18:28 ; Start 08/14/16 at 07:45 Ondansetron HCl (Zofran) 8 mg PRN Q8HRS PRN IV NAUSEA 1ST CHOICE Last administered on 08/14/16 18:15; Start 08/14/16 at 14:30 Prochlorperazine Edisylate (Compazine) 10 mg PRN Q8HRS PRN IV NAUSEA/VOMITING Last administered on 08/14/16 10:48; Start 08/14/16 at 10:30 Active Scripts Active Famotidine 20 Mg Tablet 20 Mg PO BID Zofran Odt (Ondansetron) 4 Mg Tab.rapdis 1 Tab SL Q8HRS Ativan (Lorazepam) 0.5 Mg Tablet 0.5 Mg PO TID Zofran Odt (Ondansetron) 4 Mg Tab.rapdis 1 Tab SL PRN Q8HRS PRN Hydrocodone-Apap 5-325 (Hydrocodone Bit/Acetaminophen) 1 Each Tablet 1 Tab PO PRN Q6HRS PRN Reported Symbicort 160-4.5 Mcg Inhaler (Budesonide/Formoterol Fumarate) 10.2 Gm Hfa.aer.ad 2 Puff IH BID Prilosec Otc (Omeprazole Magnesium) 20 Mg Tablet.dr 1 Tab PO DAILY Theophylline (Theophylline Anhydrous) 400 Mg Tablet.er 300 Mg PO BID Albuterol Sulfate Neb Soln (Albuterol Sulfate) 1.25 Mg/3 Ml Vial.neb 1.25 Mg IH Allergies Allergies: Coded Allergies: No Known Drug Allergies (Unverified , 04/30/16) Vitals VITALS Vital Signs Date Time Temp Pulse Resp B/P Pulse Ox O2 Delivery O2 Flow Rate FiO2 08/14/16 18:28 20 Room Air 08/14/16 14:57 97.8 106 150/97 96 97.8 Labs Labs Laboratory Tests Test 08/13/16 18:30 08/13/16 19:26 08/14/16 05:20 White Blood Count 7.9x10^3/uL (4.0-11.0) 7.5x10^3/uL (4.0-11.0) Red Blood Count 5.71x10^6/uL (4.30-5.70) 5.01x10^6/uL (4.30-5.70) Hemoglobin 17.1g/dL (13.0-17.5) 15.0g/dL (13.0-17.5) Hematocrit 49.0% (39.0-53.0) 44.0% (39.0-53.0) Mean Corpuscular Volume 86fL (79-100) 88fL (79-100) Mean Corpuscular Hemoglobin 30pg (25-35) 30pg (25-35) Mean Corpuscular Hemoglobin Concent 35g/dL (31-37) 34g/dL (31-37) Red Cell Distribution Width 14.8% (11.5-14.5) 14.6% (11.5-14.5) Platelet Count 192x10^3/uL (140-400) 158x10^3/uL (140-400) Neutrophils (%) (Auto) 52% (31-73) 54% (31-73) Lymphocytes (%) (Auto) 36% (24-48) 33% (24-48) Monocytes (%) (Auto) 9% (0-9) 10% (0-9) Eosinophils (%) (Auto) 3% (0-3) 2% (0-3) Basophils (%) (Auto) 1% (0-3) 1% (0-3) Neutrophils # (Auto) 4.1x10^3uL (1.8-7.7) 4.1x10^3uL (1.8-7.7) Lymphocytes # (Auto) 2.8x10^3/uL (1.0-4.8) 2.5x10^3/uL (1.0-4.8) Monocytes # (Auto) 0.7x10^3/uL (0.0-1.1) 0.8x10^3/uL (0.0-1.1) Eosinophils # (Auto) 0.2x10^3/uL (0.0-0.7) 0.1x10^3/uL (0.0-0.7) Basophils # (Auto) 0.1x10^3/uL (0.0-0.2) 0.0x10^3/uL (0.0-0.2) Prothrombin Time 12.9SEC (11.7-14.0) Prothromb Time International Ratio 1.0 (0.8-1.1) Activated Partial Thromboplast Time 30SEC (24-38) Sodium Level 138mmol/L (136-145) 138mmol/L (136-145) Potassium Level 3.1mmol/L (3.5-5.1) 3.7mmol/L (3.5-5.1) Chloride Level 96mmol/L (98-107) 97mmol/L (98-107) Carbon Dioxide Level 30mmol/L (21-32) 27mmol/L (21-32) Anion Gap 12 (6-14) 14 (6-14) Blood Urea Nitrogen 19mg/dL (8-26) 18mg/dL (8-26) Creatinine 1.1mg/dL (0.7-1.3) 1.1mg/dL (0.7-1.3) Estimated GFR (Cockcroft-Gault) 74.5 74.5 BUN/Creatinine Ratio 17 (6-20) Glucose Level 126mg/dL (70-99) 112mg/dL (70-99) Calcium Level 8.6mg/dL (8.5-10.1) 8.6mg/dL (8.5-10.1) Phosphorus Level 3.6mg/dL (2.6-4.7) Magnesium Level 1.8mg/dL (1.8-2.4) Total Bilirubin 0.6mg/dL (0.2-1.0) Aspartate Amino Transf (AST/SGOT) 91U/L (15-37) Alanine Aminotransferase (ALT/SGPT) 53U/L (16-63) Alkaline Phosphatase 79U/L (46-116) Troponin I Quantitative < 0.017ng/mL (0.000-0.055) Total Protein 8.1g/dL (6.4-8.2) Albumin 3.7g/dL (3.4-5.0) Albumin/Globulin Ratio 0.8 (1.0-1.7) Lipase 671U/L (73-393) 511U/L (73-393) Urine Opiates Screen Neg (NEG) Urine Methadone Screen Neg (NEG) Urine Barbiturates Neg (NEG) Urine Phencyclidine Screen Neg (NEG) Urine Amphetamine/Methamphetamine Neg (NEG) Urine Benzodiazepines Screen Neg (NEG) Urine Cocaine Screen Neg (NEG) Urine Cannabinoids Screen Neg (NEG) Ethyl Alcohol Level 330mg/dL (0-10) Urine Ethyl Alcohol Pos (NEG) Influenza Type A Antigen Negative (NEGATIVE) Influenza Type B Antigen Negative (NEGATIVE) Creatine Kinase 134U/L (39-308) Vitamin B12 Level 608pg/mL (211-946) Thyroid Stimulating Hormone (TSH) 1.705uIU/mL (0.358-3.74) Laboratory Tests Test 08/13/16 19:26 08/14/16 05:20 Influenza Type A Antigen Negative (NEGATIVE) Influenza Type B Antigen Negative (NEGATIVE) White Blood Count 7.5x10^3/uL (4.0-11.0) Red Blood Count 5.01x10^6/uL (4.30-5.70) Hemoglobin 15.0g/dL (13.0-17.5) Hematocrit 44.0% (39.0-53.0) Mean Corpuscular Volume 88fL (79-100) Mean Corpuscular Hemoglobin 30pg (25-35) Mean Corpuscular Hemoglobin Concent 34g/dL (31-37) Red Cell Distribution Width 14.6% (11.5-14.5) Platelet Count 158x10^3/uL (140-400) Neutrophils (%) (Auto) 54% (31-73) Lymphocytes (%) (Auto) 33% (24-48) Monocytes (%) (Auto) 10% (0-9) Eosinophils (%) (Auto) 2% (0-3) Basophils (%) (Auto) 1% (0-3) Neutrophils # (Auto) 4.1x10^3uL (1.8-7.7) Lymphocytes # (Auto) 2.5x10^3/uL (1.0-4.8) Monocytes # (Auto) 0.8x10^3/uL (0.0-1.1) Eosinophils # (Auto) 0.1x10^3/uL (0.0-0.7) Basophils # (Auto) 0.0x10^3/uL (0.0-0.2) Sodium Level 138mmol/L (136-145) Potassium Level 3.7mmol/L (3.5-5.1) Chloride Level 97mmol/L (98-107) Carbon Dioxide Level 27mmol/L (21-32) Anion Gap 14 (6-14) Blood Urea Nitrogen 18mg/dL (8-26) Creatinine 1.1mg/dL (0.7-1.3) Estimated GFR (Cockcroft-Gault) 74.5 Glucose Level 112mg/dL (70-99) Calcium Level 8.6mg/dL (8.5-10.1) Creatine Kinase 134U/L (39-308) Lipase 511U/L (73-393) Vitamin B12 Level 608pg/mL (211-946) Thyroid Stimulating Hormone (TSH) 1.705uIU/mL (0.358-3.74) EFE CRUZ MD Aug 14, 2016 19:06
[2016-08-14 22:48] VITALS: BP 149/102
[2016-08-15] MEDS: LORAZEPAM 2 MG/ML VIAL IV PRN ×4 (01:59→20:58)
[2016-08-15] MEDS: CHLORDIAZEPOXIDE HCL 25 MG CAPSULE PO SCH (04:00)
[2016-08-15] MEDS: MORPHINE SULFATE 2 MG/ML DISP.SYRIN. IV PRN ×4 (04:16→19:19)
[2016-08-15] MEDS: ONDANSETRON PF 4 MG/2 ML VIAL. IV PRN ×2 (04:16→15:26)
[2016-08-15 05:02] LABS: BASO # 0.1 x10^3/uL (0.0-0.2); BASO % 1 % (0-3); EOS % 6 % (0-3); HEMATOCRIT 37.3 % (39.0-53.0); LYMPH % 36 % (24-48); MEAN CORPUSCULAR HEMOGLOBIN 30 pg (25-35); MEAN CORPUSCULAR HGB CONC 35 g/dL (31-37); MEAN CORPUSCULAR VOLUME 87 fL (79-100); MONO % 8 % (0-9); NEUT % 50 % (31-73); PLATELET COUNT 101 x10^3/uL (140-400); RED BLOOD COUNT 4.28 x10^6/uL (4.30-5.70); RED CELL DISTRIBUTION WIDTH 14.2 % (11.5-14.5); WHITE BLOOD COUNT 5.6 x10^3/uL (4.0-11.0)
[2016-08-15 05:19] LABS: ALBUMIN 2.9 g/dL (3.4-5.0); ALBUMIN/GLOBULIN RATIO 0.9 (1.0-1.7); CALCIUM 8.6 mg/dL (8.5-10.1); CREATININE 1.2 mg/dL (0.7-1.3); GFR 67.4; MAGNESIUM 1.4 mg/dL (1.8-2.4); POTASSIUM 3.4 mmol/L (3.5-5.1); TOTAL BILIRUBIN 1.2 mg/dL (0.2-1.0); TOTAL PROTEIN 6.1 g/dL (6.4-8.2)
[2016-08-15 07:15] VITALS: BP 137/92
[2016-08-15] MEDS: THIAMINE 100 MG TABLET. PO SCH (08:30)
[2016-08-15] MEDS: FOLIC ACID 1 MG TABLET PO SCH (08:30)
[2016-08-15] MEDS: MVI, ADULT NO.4 WITH VIT K 10 ML, THIAMINE 100 MG, FOLIC ACID 1 MG in IV NORMAL SALINE ... IV SCH ×4 (08:30)
[2016-08-15] MEDS: ENOXAPARIN 40 MG/0.4 ML DISP.SYRIN. SQ SCH (08:31)
[2016-08-15] MEDS: PROCHLORPERAZINE 10 MG/2 ML VIAL. IV PRN ×2 (08:51→19:03)
[2016-08-15 11:16] VITALS: BP 126/85
--- NOTE | 2016-08-15 13:01 | PDOC ---
PROGRESS NOTES Chief Complaint Chief Complaint EtOH pancreatitis s/p fall ASSESSMENT AND PLAN: 1. EtOH pancreatitis: monitor lipase. clinically ongoing. advance diet to full liquids 2. EtOH gastritis: PPI 3. Nausea: improved. zofran or reglan PRN 4. EtOH hepatitis: sl worse by labs, new hyperbilirubinemia. monitor 5. EtOH toxicity: banana bag. ativan PRN for W/D sx 6. Hypokalemia: resolved 7. prophylaxis: PPI, lovenox Vitals Vitals Vital Signs Date Time Temp Pulse Resp B/P Pulse Ox O2 Delivery O2 Flow Rate FiO2 08/15/16 11:16 98.2 90 16 126/85 96 Room Air 98.2 Physical Exam General: Alert, Oriented X3, Cooperative Heart: Regular rate Lungs: Clear Abdomen: Normal bowel sounds, Other (LUQ TTP) Extremities: No edema Skin: No rashes Labs LABS Laboratory Tests Test 08/15/16 04:46 White Blood Count 5.6x10^3/uL (4.0-11.0) Red Blood Count 4.28x10^6/uL (4.30-5.70) Hemoglobin 13.0g/dL (13.0-17.5) Hematocrit 37.3% (39.0-53.0) Mean Corpuscular Volume 87fL (79-100) Mean Corpuscular Hemoglobin 30pg (25-35) Mean Corpuscular Hemoglobin Concent 35g/dL (31-37) Red Cell Distribution Width 14.2% (11.5-14.5) Platelet Count 101x10^3/uL (140-400) Neutrophils (%) (Auto) 50% (31-73) Lymphocytes (%) (Auto) 36% (24-48) Monocytes (%) (Auto) 8% (0-9) Eosinophils (%) (Auto) 6% (0-3) Basophils (%) (Auto) 1% (0-3) Neutrophils # (Auto) 2.8x10^3uL (1.8-7.7) Lymphocytes # (Auto) 2.0x10^3/uL (1.0-4.8) Monocytes # (Auto) 0.4x10^3/uL (0.0-1.1) Eosinophils # (Auto) 0.3x10^3/uL (0.0-0.7) Basophils # (Auto) 0.1x10^3/uL (0.0-0.2) Sodium Level 139mmol/L (136-145) Potassium Level 3.4mmol/L (3.5-5.1) Chloride Level 103mmol/L (98-107) Carbon Dioxide Level 28mmol/L (21-32) Anion Gap 8 (6-14) Blood Urea Nitrogen 14mg/dL (8-26) Creatinine 1.2mg/dL (0.7-1.3) Estimated GFR (Cockcroft-Gault) 67.4 BUN/Creatinine Ratio 12 (6-20) Glucose Level 108mg/dL (70-99) Calcium Level 8.6mg/dL (8.5-10.1) Magnesium Level 1.4mg/dL (1.8-2.4) Total Bilirubin 1.2mg/dL (0.2-1.0) Aspartate Amino Transf (AST/SGOT) 116U/L (15-37) Alanine Aminotransferase (ALT/SGPT) 48U/L (16-63) Alkaline Phosphatase 58U/L (46-116) Total Protein 6.1g/dL (6.4-8.2) Albumin 2.9g/dL (3.4-5.0) Albumin/Globulin Ratio 0.9 (1.0-1.7) Review of Systems Review of Systems lethargic, pt aware of MS changes - benzo induced. abd pain improved, jdry ANDREW YOST MD Aug 15, 2016 13:01
[2016-08-15] MEDS: IPRATRPIUM/ALBUTEROL 0.5/2.5MG 3 ML NEBU. NEB SCH ×2 (14:49→20:00)
[2016-08-15 15:03] VITALS: BP 134/88
--- NOTE | 2016-08-15 15:42 | PDOC ---
PROGRESS NOTES Assessment Assessment Toxic encephalopathy. metabolic encephalopathy. Ataxia, alcohol related. Alcohol intoxication, acute on chronic, alcohol level 330. Pancreatitis. Hepatomegaly. Elevated hepatic enzymes. Tremors. RECOMMENDATIONS/PLAN: Vit B1 supplement. HCT performed, no SAH or ICH. Treat pancreatitis per floor team. Treat medical diseases. Patient education for alcohol abstinence. OT/PT. Brain MRI if not improve. He need to have a PCP. HISTORY OF THE PRESENT ILLNESS: 41-y-old male patient with history of alcohol drinking for many years. he stated he drinks Whisky about 80% with small amount mix maybe down to 60% of alcohol a cup almost on a daily basis. He developed symptoms as described above to come to the ER of [facility]. His alcohol level was found 330. PAST MEDICAL HISTORY: Please see above. PAST SURGERY HISTORY: No major surgery recently. ALLERGY: Unknown MEDICATIONS: Refer to [facility] HISTORY: Unknown. SOCIAL HISTORY: Lives at home. Denies illicit drug use. He drinks a cup of 60% alcohol a day for many years. REVIEW OF SYSTEMS: Constitutional: No malnutrition, weight loss, cachexia. Head: No traumatic brain or head injury. Skin: No edema, or rash. Ear: No infection, tinnitus. Eyes: No vision loss or color blindness. Nose: No bleeding or purulent discharges. Hearing: No hearing decrease. Neck: No injury. Cardiac: No ND, arrhythmia Pulmonary: No COPD. GI: No GI ulcer, GI bleeding. Urinary/genital: No dysuria, hematuria, incontinence, urinary retention. Endocrinologic: No cousin face, craniofacial dysmorphism, polydactyly, goiter. Skeletomuscular: No muscular atrophy, deformity. Neurological: see HP. Psychiatric: alcohol use/abuse. Otherwise, not [id number] review of systems. PHYSICAL EXAMINATION: General appearance is in subacute distress. HEENT: Normocephalic and nontraumatic. Eyes, nose, ears, and throat are unremarkable. Neck is supple. No lymphadenopathy. No bruits are heard over the carotid artery. No crepitus. Cardiovascular: S1, S2, regular rate and rhythm. Pulmonary: Clear to auscultation bilaterally. Abdomen: Bowel sounds are positive. Extremities: No rash, lesions, or edema. No restriction of range of motion NEUROLOGICAL EXAMINATION: Drowsiness. Oriented to place and person. PERRL. EOMI. CN: no focal findings. Muscle tone: within normal. Muscle strength: 5 DTR: 2 Plantar reflex: Flexor response bilaterally Gait: able to walk. Sensory exam: no abnormal findings. Mild cerebellar signs elicited. F-T-N test not accurate. Objective Objective Vital Signs Date Time Temp Pulse Resp B/P Pulse Ox O2 Delivery O2 Flow Rate FiO2 08/15/16 15:24 20 97 Room Air 08/15/16 15:03 97.5 63 134/88 97.5 Intake and Output 08/15/16 07:00 Intake Total 2500 ml Output Total 400 ml Balance 2100 ml Intake Oral 2500 ml Output Urine Total 400 ml # Voids 2 Vitals Signs Vitals VS - Last 72 Hours, by Label Date Time Temp Pulse Resp B/P Pulse Ox O2 Delivery O2 Flow Rate FiO2 08/15/16 15:24 20 97 Room Air 08/15/16 15:03 97.5 63 18 134/88 97 Room Air 97.5 08/15/16 11:16 98.2 90 16 126/85 96 Room Air 98.2 08/15/16 09:19 20 96 Room Air 08/15/16 08:49 18 95 Room Air 08/15/16 08:00 Room Air 08/15/16 07:15 98.7 86 18 137/92 95 Room Air 98.7 08/15/16 04:16 18 Room Air 08/14/16 23:55 26 Room Air 08/14/16 22:48 97.6 85 20 149/102 99 Room Air 97.6 08/14/16 20:00 Room Air 08/14/16 19:00 97.5 85 18 155/117 98 Room Air 97.5 08/14/16 18:28 20 Room Air 08/14/16 14:57 97.8 106 18 150/97 96 Room Air 97.8 08/14/16 11:15 97.7 80 18 139/88 97 Room Air 97.7 08/14/16 08:03 98 Room Air 08/14/16 08:00 Room Air 08/14/16 07:15 96.6 72 18 133/90 96 Room Air 96.6 Laboratory Laboratory Laboratory Tests Test 08/15/16 04:46 White Blood Count 5.6x10^3/uL (4.0-11.0) Red Blood Count 4.28x10^6/uL (4.30-5.70) Hemoglobin 13.0g/dL (13.0-17.5) Hematocrit 37.3% (39.0-53.0) Mean Corpuscular Volume 87fL (79-100) Mean Corpuscular Hemoglobin 30pg (25-35) Mean Corpuscular Hemoglobin Concent 35g/dL (31-37) Red Cell Distribution Width 14.2% (11.5-14.5) Platelet Count 101x10^3/uL (140-400) Neutrophils (%) (Auto) 50% (31-73) Lymphocytes (%) (Auto) 36% (24-48) Monocytes (%) (Auto) 8% (0-9) Eosinophils (%) (Auto) 6% (0-3) Basophils (%) (Auto) 1% (0-3) Neutrophils # (Auto) 2.8x10^3uL (1.8-7.7) Lymphocytes # (Auto) 2.0x10^3/uL (1.0-4.8) Monocytes # (Auto) 0.4x10^3/uL (0.0-1.1) Eosinophils # (Auto) 0.3x10^3/uL (0.0-0.7) Basophils # (Auto) 0.1x10^3/uL (0.0-0.2) Sodium Level 139mmol/L (136-145) Potassium Level 3.4mmol/L (3.5-5.1) Chloride Level 103mmol/L (98-107) Carbon Dioxide Level 28mmol/L (21-32) Anion Gap 8 (6-14) Blood Urea Nitrogen 14mg/dL (8-26) Creatinine 1.2mg/dL (0.7-1.3) Estimated GFR (Cockcroft-Gault) 67.4 BUN/Creatinine Ratio 12 (6-20) Glucose Level 108mg/dL (70-99) Calcium Level 8.6mg/dL (8.5-10.1) Magnesium Level 1.4mg/dL (1.8-2.4) Total Bilirubin 1.2mg/dL (0.2-1.0) Aspartate Amino Transf (AST/SGOT) 116U/L (15-37) Alanine Aminotransferase (ALT/SGPT) 48U/L (16-63) Alkaline Phosphatase 58U/L (46-116) Total Protein 6.1g/dL (6.4-8.2) Albumin 2.9g/dL (3.4-5.0) Albumin/Globulin Ratio 0.9 (1.0-1.7) Comment Review of Relevant I have reviewed the following items wali (where applicable) has been applied. EFE CRUZ MD Aug 15, 2016 15:42
[2016-08-15 19:00] VITALS: BP 145/95
[2016-08-15 23:00] VITALS: BP 145/98
[2016-08-16] MEDS: LORAZEPAM 2 MG/ML VIAL IV PRN ×6 (01:07→23:54)
[2016-08-16] MEDS: ONDANSETRON PF 4 MG/2 ML VIAL. IV PRN ×3 (01:13→20:03)
[2016-08-16] MEDS: MORPHINE SULFATE 2 MG/ML DISP.SYRIN. IV PRN ×6 (01:15→23:54)
[2016-08-16 03:00] VITALS: BP 158/101
[2016-08-16 05:16] LABS: BASO % 1 % (0-3); EOS % 5 % (0-3); HEMATOCRIT 33.6 % (39.0-53.0); LYMPH # 1.4 x10^3/uL (1.0-4.8); LYMPH % 28 % (24-48); MEAN CORPUSCULAR HEMOGLOBIN 31 pg (25-35); MEAN CORPUSCULAR HGB CONC 36 g/dL (31-37); MEAN CORPUSCULAR VOLUME 86 fL (79-100); MONO % 10 % (0-9); NEUT % 57 % (31-73); PLATELET COUNT 89 x10^3/uL (140-400); RED BLOOD COUNT 3.92 x10^6/uL (4.30-5.70); RED CELL DISTRIBUTION WIDTH 14.6 % (11.5-14.5); WHITE BLOOD COUNT 4.9 x10^3/uL (4.0-11.0)
[2016-08-16 05:45] LABS: ALBUMIN 2.7 g/dL (3.4-5.0); ALBUMIN/GLOBULIN RATIO 0.8 (1.0-1.7); CALCIUM 8.2 mg/dL (8.5-10.1); CREATININE 1.1 mg/dL (0.7-1.3); GFR 74.5; MAGNESIUM 1.4 mg/dL (1.8-2.4); POTASSIUM 3.6 mmol/L (3.5-5.1); TOTAL BILIRUBIN 0.6 mg/dL (0.2-1.0); TOTAL PROTEIN 6.1 g/dL (6.4-8.2)
[2016-08-16 07:00] VITALS: BP 151/99
[2016-08-16] MEDS: IPRATRPIUM/ALBUTEROL 0.5/2.5MG 3 ML NEBU. NEB SCH ×4 (07:45→20:04)
[2016-08-16] MEDS: THIAMINE 100 MG TABLET. PO SCH (08:46)
[2016-08-16] MEDS: FOLIC ACID 1 MG TABLET PO SCH (08:46)
[2016-08-16] MEDS: ENOXAPARIN 40 MG/0.4 ML DISP.SYRIN. SQ SCH (08:47)
[2016-08-16] MEDS: MVI, ADULT NO.4 WITH VIT K 10 ML, THIAMINE 100 MG, FOLIC ACID 1 MG in IV NORMAL SALINE ... IV SCH ×4 (10:01)
[2016-08-16 10:52] VITALS: BP 132/80
--- NOTE | 2016-08-16 11:48 | PDOC ---
PROGRESS NOTES Assessment Assessment Toxic encephalopathy. Metabolic encephalopathy. Ataxia, alcohol related. Alcohol intoxication, acute on chronic, alcohol level 330. Pancreatitis. Hepatomegaly. Elevated hepatic enzymes. Tremors. RECOMMENDATIONS/PLAN: Continue Vit B1 supplement. HCT performed, no SAH or ICH. Treat pancreatitis per floor team. Treat medical diseases. Patient education for alcohol abstinence. OT/PT. He need to have a PCP. HISTORY OF THE PRESENT ILLNESS: 41-y-old male patient with history of alcohol drinking for many years. he stated he drinks Whisky about 80% with small amount mix maybe down to 60% of alcohol a cup almost on a daily basis. He developed symptoms as described above to come to the ER of [facility]. His alcohol level was found 330. He stated he has been doing much better and able to walk near normal on 08/16/16. PAST MEDICAL HISTORY: Please see above. PAST SURGERY HISTORY: No major surgery recently. ALLERGY: Unknown MEDICATIONS: Refer to [facility] HISTORY: Unknown. SOCIAL HISTORY: Lives at home. Denies illicit drug use. He drinks a cup of 60% alcohol a day for many years. REVIEW OF SYSTEMS: Constitutional: No malnutrition, weight loss, cachexia. Head: No traumatic brain or head injury. Skin: No edema, or rash. Ear: No infection, tinnitus. Eyes: No vision loss or color blindness. Nose: No bleeding or purulent discharges. Hearing: No hearing decrease. Neck: No injury. Cardiac: No AR, arrhythmia Pulmonary: No COPD. GI: No GI ulcer, GI bleeding. Urinary/genital: No dysuria, hematuria, incontinence, urinary retention. Endocrinologic: No cousin face, craniofacial dysmorphism, polydactyly, goiter. Skeletomuscular: No muscular atrophy, deformity. Neurological: see HP. Psychiatric: alcohol use/abuse. Otherwise, not [id number] review of systems. PHYSICAL EXAMINATION: General appearance is in no acute distress. HEENT: Normocephalic and nontraumatic. Eyes, nose, ears, and throat are unremarkable. Neck is supple. No lymphadenopathy. No bruits are heard over the carotid artery. No crepitus. Cardiovascular: S1, S2, regular rate and rhythm. Pulmonary: Clear to auscultation bilaterally. Abdomen: Bowel sounds are positive. Extremities: No rash, lesions, or edema. No restriction of range of motion NEUROLOGICAL EXAMINATION: Awake. Sitting in chair. Oriented to time, place and person. PERRL. EOMI. CN: no focal findings. Muscle tone: within normal. Muscle strength: 5 DTR: 2 Plantar reflex: Flexor response bilaterally Gait: able to walk at his baseline normal. Sensory exam: no abnormal findings. Mild cerebellar signs elicited. F-T-N test not accurate. Mild tremors noted in hands. Objective Objective Vital Signs Date Time Temp Pulse Resp B/P Pulse Ox O2 Delivery O2 Flow Rate FiO2 08/16/16 11:18 Room Air 08/16/16 10:52 97.4 92 18 132/80 98 97.4 Intake and Output 08/16/16 07:00 Intake Total 1720 ml Output Total 350 ml Balance 1370 ml Intake Oral 1720 ml Output Urine Total 350 ml # Voids 4 # Bowel Movements 1 Vitals Signs Vitals VS - Last 72 Hours, by Label Date Time Temp Pulse Resp B/P Pulse Ox O2 Delivery O2 Flow Rate FiO2 08/16/16 11:18 Room Air 08/16/16 10:52 97.4 92 18 132/80 98 Room Air 97.4 08/16/16 10:02 20 98 Room Air 08/16/16 08:00 Room Air 08/16/16 07:46 99 Room Air 08/16/16 07:00 97.5 73 18 151/99 98 Room Air 97.5 08/16/16 06:19 20 99 Room Air 08/16/16 05:49 20 Room Air 08/16/16 03:00 98.1 75 20 158/101 97 98.1 08/16/16 01:15 20 Room Air 08/15/16 23:00 98.3 80 18 145/98 99 98.3 08/15/16 20:03 98 Room Air 08/15/16 19:19 20 Room Air 08/15/16 19:00 98.0 81 20 145/95 98 98.0 08/15/16 15:24 20 97 Room Air 08/15/16 15:03 97.5 63 18 134/88 97 Room Air 97.5 08/15/16 11:16 98.2 90 16 126/85 96 Room Air 98.2 08/15/16 08:49 18 95 Room Air 08/15/16 08:00 Room Air 08/15/16 07:15 98.7 86 18 137/92 95 Room Air 98.7 Laboratory Laboratory Laboratory Tests Test 08/16/16 05:05 White Blood Count 4.9x10^3/uL (4.0-11.0) Red Blood Count 3.92x10^6/uL (4.30-5.70) Hemoglobin 12.0g/dL (13.0-17.5) Hematocrit 33.6% (39.0-53.0) Mean Corpuscular Volume 86fL (79-100) Mean Corpuscular Hemoglobin 31pg (25-35) Mean Corpuscular Hemoglobin Concent 36g/dL (31-37) Red Cell Distribution Width 14.6% (11.5-14.5) Platelet Count 89x10^3/uL (140-400) Neutrophils (%) (Auto) 57% (31-73) Lymphocytes (%) (Auto) 28% (24-48) Monocytes (%) (Auto) 10% (0-9) Eosinophils (%) (Auto) 5% (0-3) Basophils (%) (Auto) 1% (0-3) Neutrophils # (Auto) 2.8x10^3uL (1.8-7.7) Lymphocytes # (Auto) 1.4x10^3/uL (1.0-4.8) Monocytes # (Auto) 0.5x10^3/uL (0.0-1.1) Eosinophils # (Auto) 0.2x10^3/uL (0.0-0.7) Basophils # (Auto) 0.0x10^3/uL (0.0-0.2) Sodium Level 140mmol/L (136-145) Potassium Level 3.6mmol/L (3.5-5.1) Chloride Level 104mmol/L (98-107) Carbon Dioxide Level 28mmol/L (21-32) Anion Gap 8 (6-14) Blood Urea Nitrogen 8mg/dL (8-26) Creatinine 1.1mg/dL (0.7-1.3) Estimated GFR (Cockcroft-Gault) 74.5 BUN/Creatinine Ratio 7 (6-20) Glucose Level 114mg/dL (70-99) Calcium Level 8.2mg/dL (8.5-10.1) Magnesium Level 1.4mg/dL (1.8-2.4) Total Bilirubin 0.6mg/dL (0.2-1.0) Aspartate Amino Transf (AST/SGOT) 53U/L (15-37) Alanine Aminotransferase (ALT/SGPT) 39U/L (16-63) Alkaline Phosphatase 56U/L (46-116) Total Protein 6.1g/dL (6.4-8.2) Albumin 2.7g/dL (3.4-5.0) Albumin/Globulin Ratio 0.8 (1.0-1.7) Lipase 345U/L (73-393) Comment Review of Relevant I have reviewed the following items wali (where applicable) has been applied. EFE CRUZ MD Aug 16, 2016 11:48
[2016-08-16] MEDS ORDERED: methylPREDNISolone SOD SUCC PF 40 MG/ML VIAL. IV ONE (12:30)
--- NOTE | 2016-08-16 12:34 | PDOC ---
PROGRESS NOTES Chief Complaint Chief Complaint EtOH pancreatitis s/p fall ASSESSMENT AND PLAN: 1. EtOH pancreatitis: lipase improved, pain improved. advance diet 2. EtOH gastritis: PPI 3. Nausea: improved. zofran or reglan PRN 4. EtOH hepatitis: recovering. monitor 5. EtOH toxicity: banana bag. ativan PRN for W/D sx. still significant tremor 6. Hypokalemia: resolved 7. gout: new flare. IV steroids x1 today; start colchine and allopurinol in AM 7. prophylaxis: PPI, lovenox Vitals Vitals Vital Signs Date Time Temp Pulse Resp B/P Pulse Ox O2 Delivery O2 Flow Rate FiO2 08/16/16 11:18 Room Air 08/16/16 10:52 97.4 92 18 132/80 98 97.4 Physical Exam General: Alert, Oriented X3, Cooperative Heart: Regular rate Lungs: Clear Abdomen: Normal bowel sounds, Other (LUQ TTP) Extremities: No edema Skin: No rashes Labs LABS Laboratory Tests Test 08/16/16 05:05 White Blood Count 4.9x10^3/uL (4.0-11.0) Red Blood Count 3.92x10^6/uL (4.30-5.70) Hemoglobin 12.0g/dL (13.0-17.5) Hematocrit 33.6% (39.0-53.0) Mean Corpuscular Volume 86fL (79-100) Mean Corpuscular Hemoglobin 31pg (25-35) Mean Corpuscular Hemoglobin Concent 36g/dL (31-37) Red Cell Distribution Width 14.6% (11.5-14.5) Platelet Count 89x10^3/uL (140-400) Neutrophils (%) (Auto) 57% (31-73) Lymphocytes (%) (Auto) 28% (24-48) Monocytes (%) (Auto) 10% (0-9) Eosinophils (%) (Auto) 5% (0-3) Basophils (%) (Auto) 1% (0-3) Neutrophils # (Auto) 2.8x10^3uL (1.8-7.7) Lymphocytes # (Auto) 1.4x10^3/uL (1.0-4.8) Monocytes # (Auto) 0.5x10^3/uL (0.0-1.1) Eosinophils # (Auto) 0.2x10^3/uL (0.0-0.7) Basophils # (Auto) 0.0x10^3/uL (0.0-0.2) Sodium Level 140mmol/L (136-145) Potassium Level 3.6mmol/L (3.5-5.1) Chloride Level 104mmol/L (98-107) Carbon Dioxide Level 28mmol/L (21-32) Anion Gap 8 (6-14) Blood Urea Nitrogen 8mg/dL (8-26) Creatinine 1.1mg/dL (0.7-1.3) Estimated GFR (Cockcroft-Gault) 74.5 BUN/Creatinine Ratio 7 (6-20) Glucose Level 114mg/dL (70-99) Calcium Level 8.2mg/dL (8.5-10.1) Magnesium Level 1.4mg/dL (1.8-2.4) Total Bilirubin 0.6mg/dL (0.2-1.0) Aspartate Amino Transf (AST/SGOT) 53U/L (15-37) Alanine Aminotransferase (ALT/SGPT) 39U/L (16-63) Alkaline Phosphatase 56U/L (46-116) Total Protein 6.1g/dL (6.4-8.2) Albumin 2.7g/dL (3.4-5.0) Albumin/Globulin Ratio 0.8 (1.0-1.7) Lipase 345U/L (73-393) Review of Systems Review of Systems feels much better, thinks he is ready for home. gout pain developing in L big toe Comment Review of Relevant I have reviewed the following items wali (where applicable) has been applied. Labs Laboratory Tests Test 08/15/16 04:46 08/16/16 05:05 White Blood Count 5.6x10^3/uL (4.0-11.0) 4.9x10^3/uL (4.0-11.0) Red Blood Count 4.28x10^6/uL (4.30-5.70) 3.92x10^6/uL (4.30-5.70) Hemoglobin 13.0g/dL (13.0-17.5) 12.0g/dL (13.0-17.5) Hematocrit 37.3% (39.0-53.0) 33.6% (39.0-53.0) Mean Corpuscular Volume 87fL (79-100) 86fL (79-100) Mean Corpuscular Hemoglobin 30pg (25-35) 31pg (25-35) Mean Corpuscular Hemoglobin Concent 35g/dL (31-37) 36g/dL (31-37) Red Cell Distribution Width 14.2% (11.5-14.5) 14.6% (11.5-14.5) Platelet Count 101x10^3/uL (140-400) 89x10^3/uL (140-400) Neutrophils (%) (Auto) 50% (31-73) 57% (31-73) Lymphocytes (%) (Auto) 36% (24-48) 28% (24-48) Monocytes (%) (Auto) 8% (0-9) 10% (0-9) Eosinophils (%) (Auto) 6% (0-3) 5% (0-3) Basophils (%) (Auto) 1% (0-3) 1% (0-3) Neutrophils # (Auto) 2.8x10^3uL (1.8-7.7) 2.8x10^3uL (1.8-7.7) Lymphocytes # (Auto) 2.0x10^3/uL (1.0-4.8) 1.4x10^3/uL (1.0-4.8) Monocytes # (Auto) 0.4x10^3/uL (0.0-1.1) 0.5x10^3/uL (0.0-1.1) Eosinophils # (Auto) 0.3x10^3/uL (0.0-0.7) 0.2x10^3/uL (0.0-0.7) Basophils # (Auto) 0.1x10^3/uL (0.0-0.2) 0.0x10^3/uL (0.0-0.2) Sodium Level 139mmol/L (136-145) 140mmol/L (136-145) Potassium Level 3.4mmol/L (3.5-5.1) 3.6mmol/L (3.5-5.1) Chloride Level 103mmol/L (98-107) 104mmol/L (98-107) Carbon Dioxide Level 28mmol/L (21-32) 28mmol/L (21-32) Anion Gap 8 (6-14) 8 (6-14) Blood Urea Nitrogen 14mg/dL (8-26) 8mg/dL (8-26) Creatinine 1.2mg/dL (0.7-1.3) 1.1mg/dL (0.7-1.3) Estimated GFR (Cockcroft-Gault) 67.4 74.5 BUN/Creatinine Ratio 12 (6-20) 7 (6-20) Glucose Level 108mg/dL (70-99) 114mg/dL (70-99) Calcium Level 8.6mg/dL (8.5-10.1) 8.2mg/dL (8.5-10.1) Magnesium Level 1.4mg/dL (1.8-2.4) 1.4mg/dL (1.8-2.4) Total Bilirubin 1.2mg/dL (0.2-1.0) 0.6mg/dL (0.2-1.0) Aspartate Amino Transf (AST/SGOT) 116U/L (15-37) 53U/L (15-37) Alanine Aminotransferase (ALT/SGPT) 48U/L (16-63) 39U/L (16-63) Alkaline Phosphatase 58U/L (46-116) 56U/L (46-116) Total Protein 6.1g/dL (6.4-8.2) 6.1g/dL (6.4-8.2) Albumin 2.9g/dL (3.4-5.0) 2.7g/dL (3.4-5.0) Albumin/Globulin Ratio 0.9 (1.0-1.7) 0.8 (1.0-1.7) Lipase 611U/L (73-393) 345U/L (73-393) Laboratory Tests Test 08/16/16 05:05 White Blood Count 4.9x10^3/uL (4.0-11.0) Red Blood Count 3.92x10^6/uL (4.30-5.70) Hemoglobin 12.0g/dL (13.0-17.5) Hematocrit 33.6% (39.0-53.0) Mean Corpuscular Volume 86fL (79-100) Mean Corpuscular Hemoglobin 31pg (25-35) Mean Corpuscular Hemoglobin Concent 36g/dL (31-37) Red Cell Distribution Width 14.6% (11.5-14.5) Platelet Count 89x10^3/uL (140-400) Neutrophils (%) (Auto) 57% (31-73) Lymphocytes (%) (Auto) 28% (24-48) Monocytes (%) (Auto) 10% (0-9) Eosinophils (%) (Auto) 5% (0-3) Basophils (%) (Auto) 1% (0-3) Neutrophils # (Auto) 2.8x10^3uL (1.8-7.7) Lymphocytes # (Auto) 1.4x10^3/uL (1.0-4.8) Monocytes # (Auto) 0.5x10^3/uL (0.0-1.1) Eosinophils # (Auto) 0.2x10^3/uL (0.0-0.7) Basophils # (Auto) 0.0x10^3/uL (0.0-0.2) Sodium Level 140mmol/L (136-145) Potassium Level 3.6mmol/L (3.5-5.1) Chloride Level 104mmol/L (98-107) Carbon Dioxide Level 28mmol/L (21-32) Anion Gap 8 (6-14) Blood Urea Nitrogen 8mg/dL (8-26) Creatinine 1.1mg/dL (0.7-1.3) Estimated GFR (Cockcroft-Gault) 74.5 BUN/Creatinine Ratio 7 (6-20) Glucose Level 114mg/dL (70-99) Calcium Level 8.2mg/dL (8.5-10.1) Magnesium Level 1.4mg/dL (1.8-2.4) Total Bilirubin 0.6mg/dL (0.2-1.0) Aspartate Amino Transf (AST/SGOT) 53U/L (15-37) Alanine Aminotransferase (ALT/SGPT) 39U/L (16-63) Alkaline Phosphatase 56U/L (46-116) Total Protein 6.1g/dL (6.4-8.2) Albumin 2.7g/dL (3.4-5.0) Albumin/Globulin Ratio 0.8 (1.0-1.7) Lipase 345U/L (73-393) Medications Current Medications Sodium Chloride (Iv Sodium Chloride 0.9% 1000ml Bag) 1,000 ml @ 1,000 mls/hr 1X ONCE IV Last administered on 08/13/16 19:20; Start 08/13/16 at 19:15; Stop 08/13/16 at 20:14; Status DC Ondansetron HCl 4 mg 4 mg 1X ONCE IV Last administered on 08/13/16 19:20; Start 08/13/16 at 19:45; Stop 08/13/16 at 19:46; Status DC Multivitamins/ Minerals/Folic Acid/Thiamine HCl/ Dextrose/Sodium Chloride ( Infuvite Adult/ Iv D5% - 1/2 NS) 1,011.2 ml @ 1,000 mls/ hr 1X ONCE IV Last administered on 08/13/16 19:49; Start 08/13/16 at 19:45; Stop 08/13/16 at 20:45 ; Status DC Acetaminophen (Tylenol) 650 mg PRN Q6HRS PRN PO FEVER Last administered on 08/13 22:45; Start 08/13/16 at 21:15 Ondansetron HCl (Zofran) 4 mg PRN Q6HRS PRN IV NAUSEA Last administered on 06:16; Start 08/13/16 at 21:15; Stop 08/14/16 at 10:29; Status DC Thiamine HCl (Vitamin B-1) 100 mg DAILY PO Last administered on 08/16/16 08:46 ; Start 08/14/16 at 09:00 Folic Acid (Folic Acid) 1 mg DAILY PO Last administered on 08/16/16 08:46; Start 08/14/16 at 09:00 Lorazepam (Ativan) 1 mg PRN Q6HRS PRN PO ANXIETY / AGITATION; Start 08/13/16 at 21:15 Lorazepam (Ativan) 2 mg PRN Q4HRS PRN IV ANXIETY / AGITATION Last administered on 08/16/16 10:04; Start 08/13/16 at 21:15 Enoxaparin Sodium (Lovenox 40mg Syringe) 40 mg DAILY SQ Last administered on 08:47; Start 08/14/16 at 09:00 Albuterol Sulfate (Ventolin Neb Soln) 2.5 mg PRN Q4HRS PRN NEB SHORTNESS OF BREATH; Start 08/13/16 at 21:15 Potassium Chloride (Klor-Con) 40 meq 1X ONCE PO Last administered on 22:20; Start 08/13/16 at 21:30; Stop 08/13/16 at 21:31; Status DC Albuterol/ Ipratropium 3 ml 3 ml RTQID NEB Last administered on 08/16/16 11:17 ; Start 08/14/16 at 08:00 Multivitamins/ Minerals/Thiamine HCl/Folic Acid/ Sodium Chloride (Infuvite Adult / Iv Sodium Chloride 0.9% 1000ml Bag) 1,011.2 ml @ 100 mls/ hr DAILY IV Last administered on 08/16/16 10:01; Start 08/14/16 at 09:00; Stop 08/19/16 at 08:59 Chlordiazepoxide (Librium) 25 mg Q6H PO Last administered on 08/15/16 04:00; Start 08/13/16 at 22:00; Stop 08/15/16 at 04:01; Status DC Morphine Sulfate 2 mg PRN Q2HR PRN IV PAIN Last administered on 08/14/16 04:45 ; Start 08/14/16 at 00:30; Stop 08/14/16 at 07:43; Status DC Morphine Sulfate 2 mg PRN Q4HRS PRN IV PAIN Last administered on 08/16/16 10:02 ; Start 08/14/16 at 07:45 Ondansetron HCl (Zofran) 8 mg PRN Q8HRS PRN IV NAUSEA 1ST CHOICE Last administered on 08/16/16 10:06; Start 08/14/16 at 14:30 Prochlorperazine Edisylate (Compazine) 10 mg PRN Q8HRS PRN IV NAUSEA/VOMITING, 2ND CHOICE Last administered on 08/15/16 19:03; Start 08/14/16 at 10:30 Active Scripts Active Famotidine 20 Mg Tablet 20 Mg PO BID Zofran Odt (Ondansetron) 4 Mg Tab.rapdis 1 Tab SL Q8HRS Ativan (Lorazepam) 0.5 Mg Tablet 0.5 Mg PO TID Zofran Odt (Ondansetron) 4 Mg Tab.rapdis 1 Tab SL PRN Q8HRS PRN Hydrocodone-Apap 5-325 (Hydrocodone Bit/Acetaminophen) 1 Each Tablet 1 Tab PO PRN Q6HRS PRN Reported Symbicort 160-4.5 Mcg Inhaler (Budesonide/Formoterol Fumarate) 10.2 Gm Hfa.aer.ad 2 Puff IH BID Prilosec Otc (Omeprazole Magnesium) 20 Mg Tablet.dr 1 Tab PO DAILY Theophylline (Theophylline Anhydrous) 400 Mg Tablet.er 300 Mg PO BID Albuterol Sulfate Neb Soln (Albuterol Sulfate) 1.25 Mg/3 Ml Vial.neb 1.25 Mg IH Vitals/I & O Vital Sign - Last 24 Hours 08/15/16 08/15/16 08/15/16 08/15/16 15:03 15:24 19:00 19:19 Temp 97.5 98.0 97.5 98.0 Pulse 63 81 Resp 18 20 20 20 B/P 134/88 145/95 Pulse Ox 97 97 98 O2 Delivery Room Air Room Air Room Air 08/15/16 08/15/16 08/16/16 08/16/16 20:03 23:00 01:15 03:00 Temp 98.3 98.1 98.3 98.1 Pulse 80 75 Resp 18 20 20 B/P 145/98 158/101 Pulse Ox 98 99 97 O2 Delivery Room Air Room Air 08/16/16 08/16/16 08/16/16 08/16/16 05:49 07:00 07:46 08:00 Temp 97.5 97.5 Pulse 73 Resp 20 18 B/P 151/99 Pulse Ox 98 99 O2 Delivery Room Air Room Air Room Air Room Air 08/16/16 08/16/16 08/16/16 08/16/16 10:02 10:32 10:52 11:18 Temp 97.4 97.4 Pulse 92 Resp 20 20 18 B/P 132/80 Pulse Ox 98 98 98 O2 Delivery Room Air Room Air Room Air Room Air Intake and Output 08/15/16 08/15/16 08/16/16 15:00 23:00 07:00 Intake Total 1000 ml 480 ml 240 ml Output Total 350 ml Balance 1000 ml 130 ml 240 ml ANDREW YOST MD Aug 16, 2016 12:34
[2016-08-16] MEDS: COLCHICINE 0.6 MG TABLET PO SCH (12:48)
[2016-08-16] MEDS: ALLOPURINOL 300 MG TABLET. PO SCH (12:49)
[2016-08-16] MEDS: PROCHLORPERAZINE 10 MG/2 ML VIAL. IV PRN ×2 (15:01→23:16)
[2016-08-16 15:12] VITALS: BP 149/104
[2016-08-16 19:59] VITALS: BP 157/99
[2016-08-16] MEDS: LORAZEPAM 1 MG TABLET. PO PRN (23:15)
[2016-08-16 23:59] VITALS: BP 142/87
[2016-08-17 03:59] VITALS: BP 143/93
[2016-08-17] MEDS: MORPHINE SULFATE 2 MG/ML DISP.SYRIN. IV PRN ×2 (04:31→08:40)
[2016-08-17] MEDS: LORAZEPAM 2 MG/ML VIAL IV PRN (04:31)
[2016-08-17 05:26] LABS: BASO % 0 % (0-3); EOS % 0 % (0-3); HEMATOCRIT 36.8 % (39.0-53.0); HEMOGLOBIN 12.5 g/dL (13.0-17.5); LYMPH # 0.7 x10^3/uL (1.0-4.8); LYMPH % 7 % (24-48); MEAN CORPUSCULAR HEMOGLOBIN 31 pg (25-35); MEAN CORPUSCULAR HGB CONC 34 g/dL (31-37); MEAN CORPUSCULAR VOLUME 89 fL (79-100); MONO % 7 % (0-9); NEUT % 85 % (31-73); PLATELET COUNT 115 x10^3/uL (140-400); RED BLOOD COUNT 4.11 x10^6/uL (4.30-5.70); RED CELL DISTRIBUTION WIDTH 14.7 % (11.5-14.5); WHITE BLOOD COUNT 9.5 x10^3/uL (4.0-11.0)
[2016-08-17 05:54] LABS: ALBUMIN 3.2 g/dL (3.4-5.0); ALBUMIN/GLOBULIN RATIO 0.8 (1.0-1.7); CALCIUM 9.3 mg/dL (8.5-10.1); GFR 83.2; MAGNESIUM 1.5 mg/dL (1.8-2.4); POTASSIUM 4.2 mmol/L (3.5-5.1); TOTAL BILIRUBIN 0.3 mg/dL (0.2-1.0); TOTAL PROTEIN 7.3 g/dL (6.4-8.2)
[2016-08-17 07:00] VITALS: BP 170/125
[2016-08-17] MEDS: IPRATRPIUM/ALBUTEROL 0.5/2.5MG 3 ML NEBU. NEB SCH ×2 (08:00→12:00)
[2016-08-17] MEDS: ENOXAPARIN 40 MG/0.4 ML DISP.SYRIN. SQ SCH (08:38)
[2016-08-17] MEDS: FOLIC ACID 1 MG TABLET PO SCH (08:38)
[2016-08-17] MEDS: COLCHICINE 0.6 MG TABLET PO SCH (08:38)
[2016-08-17] MEDS: THIAMINE 100 MG TABLET. PO SCH (08:38)
[2016-08-17] MEDS: ONDANSETRON PF 4 MG/2 ML VIAL. IV PRN (08:39)
[2016-08-17] MEDS: ALLOPURINOL 300 MG TABLET. PO SCH (08:39)
[2016-08-17] MEDS: MVI, ADULT NO.4 WITH VIT K 10 ML, THIAMINE 100 MG, FOLIC ACID 1 MG in IV NORMAL SALINE ... IV SCH ×4 (08:39)
[2016-08-17] MEDS: LORAZEPAM 1 MG TABLET. PO PRN (10:16)
[2016-08-17 10:58] VITALS: BP 146/97
--- NOTE | 2016-08-17 11:48 | PDOC ---
PROGRESS NOTES Assessment Assessment Toxic encephalopathy. Metabolic encephalopathy. Acute ataxia, alcohol intoxication. Alcohol intoxication, acute on chronic, alcohol level 330. Pancreatitis. Hepatomegaly. Elevated hepatic enzymes. Tremors. RECOMMENDATIONS/PLAN: Continue Vit B1 supplement. HCT performed, no SAH or ICH. Treat pancreatitis per floor team. Treat medical diseases. Patient education for alcohol abstinence. OT/PT. He need to have a PCP. HISTORY OF THE PRESENT ILLNESS: 41-y-old male patient with history of alcohol drinking for many years. he stated he drinks Whisky about 80% with small amount mix maybe down to 60% of alcohol a cup almost on a daily basis. He developed symptoms as described above to come to the ER of [facility]. His alcohol level was found 330. He stated he has been doing much better and able to walk near normal since and ataxia has significantly improved after treatment. PAST MEDICAL HISTORY: Please see above. PAST SURGERY HISTORY: No major surgery recently. ALLERGY: Unknown MEDICATIONS: Refer to [facility] HISTORY: Unknown. SOCIAL HISTORY: Lives at home. Denies illicit drug use. He drinks a cup of 60% alcohol a day for many years. REVIEW OF SYSTEMS: Constitutional: No malnutrition, weight loss, cachexia. Head: No traumatic brain or head injury. Skin: No edema, or rash. Ear: No infection, tinnitus. Eyes: No vision loss or color blindness. Nose: No bleeding or purulent discharges. Hearing: No hearing decrease. Neck: No injury. Cardiac: No SD, arrhythmia Pulmonary: No COPD. GI: No GI ulcer, GI bleeding. Urinary/genital: No dysuria, hematuria, incontinence, urinary retention. Endocrinologic: No cousin face, craniofacial dysmorphism, polydactyly, goiter. Skeletomuscular: No muscular atrophy, deformity. Neurological: see HP. Psychiatric: alcohol use/abuse. Otherwise, not [id number] review of systems. PHYSICAL EXAMINATION: General appearance is in no acute distress. HEENT: Normocephalic and nontraumatic. Eyes, nose, ears, and throat are unremarkable. Neck is supple. No lymphadenopathy. No bruits are heard over the carotid artery. No crepitus. Cardiovascular: S1, S2, regular rate and rhythm. Pulmonary: Clear to auscultation bilaterally. Abdomen: Bowel sounds are positive. Extremities: No rash, lesions, or edema. No restriction of range of motion NEUROLOGICAL EXAMINATION: Awake. Sitting in chair. Oriented to time, place and person. PERRL. EOMI. CN: no focal findings. Muscle tone: within normal. Muscle strength: 5 DTR: 2 Plantar reflex: Flexor response bilaterally Gait: able to walk near normal. Sensory exam: no abnormal findings. Mild cerebellar signs elicited. F-T-N test not accurate. Mild tremors noted in hands. Objective Objective Vital Signs Date Time Temp Pulse Resp B/P Pulse Ox O2 Delivery O2 Flow Rate FiO2 08/17/16 10:58 97.6 84 18 146/97 100 Room Air 97.6 Intake and Output 08/17/16 07:00 Intake Total 2080 ml Balance 2080 ml Intake Oral 2080 ml # Voids 6 Vitals Signs Vitals VS - Last 72 Hours, by Label Date Time Temp Pulse Resp B/P Pulse Ox O2 Delivery O2 Flow Rate FiO2 08/17/16 10:58 97.6 84 18 146/97 100 Room Air 97.6 08/17/16 09:18 99 Room Air 08/17/16 09:15 Room Air 08/17/16 08:40 Room Air 08/17/16 08:30 Room Air 08/17/16 07:00 97.6 89 20 170/125 98 Room Air 97.6 08/17/16 05:12 18 95 08/17/16 04:31 16 95 Room Air 08/17/16 03:59 97.5 101 18 143/93 95 Room Air 97.5 08/16/16 23:59 97.7 93 18 142/87 97 Room Air 97.7 08/16/16 23:54 16 95 Room Air 08/16/16 20:05 Room Air 08/16/16 20:00 Room Air 08/16/16 19:59 97.8 91 20 157/99 95 Room Air 97.8 08/16/16 19:46 17 99 Room Air 08/16/16 16:00 99 Room Air 08/16/16 15:12 97.6 82 18 149/104 95 Room Air 97.6 08/16/16 14:59 20 94 Room Air 08/16/16 11:18 Room Air 08/16/16 10:52 97.4 92 18 132/80 98 Room Air 97.4 08/16/16 10:02 20 98 Room Air 08/16/16 08:00 Room Air 08/16/16 07:46 99 Room Air 08/16/16 07:00 97.5 73 18 151/99 98 Room Air 97.5 Laboratory Laboratory Laboratory Tests Test 08/17/16 04:05 White Blood Count 9.5x10^3/uL (4.0-11.0) Red Blood Count 4.11x10^6/uL (4.30-5.70) Hemoglobin 12.5g/dL (13.0-17.5) Hematocrit 36.8% (39.0-53.0) Mean Corpuscular Volume 89fL (79-100) Mean Corpuscular Hemoglobin 31pg (25-35) Mean Corpuscular Hemoglobin Concent 34g/dL (31-37) Red Cell Distribution Width 14.7% (11.5-14.5) Platelet Count 115x10^3/uL (140-400) Neutrophils (%) (Auto) 85% (31-73) Lymphocytes (%) (Auto) 7% (24-48) Monocytes (%) (Auto) 7% (0-9) Eosinophils (%) (Auto) 0% (0-3) Basophils (%) (Auto) 0% (0-3) Neutrophils # (Auto) 8.1x10^3uL (1.8-7.7) Lymphocytes # (Auto) 0.7x10^3/uL (1.0-4.8) Monocytes # (Auto) 0.7x10^3/uL (0.0-1.1) Eosinophils # (Auto) 0.0x10^3/uL (0.0-0.7) Basophils # (Auto) 0.0x10^3/uL (0.0-0.2) Sodium Level 140mmol/L (136-145) Potassium Level 4.2mmol/L (3.5-5.1) Chloride Level 103mmol/L (98-107) Carbon Dioxide Level 25mmol/L (21-32) Anion Gap 12 (6-14) Blood Urea Nitrogen 8mg/dL (8-26) Creatinine 1.0mg/dL (0.7-1.3) Estimated GFR (Cockcroft-Gault) 83.2 BUN/Creatinine Ratio 8 (6-20) Glucose Level 135mg/dL (70-99) Calcium Level 9.3mg/dL (8.5-10.1) Magnesium Level 1.5mg/dL (1.8-2.4) Total Bilirubin 0.3mg/dL (0.2-1.0) Aspartate Amino Transf (AST/SGOT) 48U/L (15-37) Alanine Aminotransferase (ALT/SGPT) 46U/L (16-63) Alkaline Phosphatase 66U/L (46-116) Total Protein 7.3g/dL (6.4-8.2) Albumin 3.2g/dL (3.4-5.0) Albumin/Globulin Ratio 0.8 (1.0-1.7) Medication Medications Current Medications Allopurinol (Zyloprim) 300 mg DAILY PO Last administered on 08/17/16 08:39; Start 08/16/16 at 13:00 Colchicine (Colcrys) 0.6 mg DAILY PO Last administered on 08/17/16 08:38; Start 08/16/16 at 13:00 Methylprednisolone Sodium Succinate (Solu-Medrol 40mg Vial) 40 mg 1X ONCE IV Last administered on 08/16/16 12:48; Start 08/16/16 at 12:30; Stop 08/16/16 at 12: 31; Status DC Comment Review of Relevant I have reviewed the following items wali (where applicable) has been applied. EFE CRUZ MD Aug 17, 2016 11:48
--- NOTE | 2016-08-17 12:21 | PDOC ---
PROGRESS NOTES Chief Complaint Chief Complaint EtOH pancreatitis s/p fall ASSESSMENT AND PLAN: 1. EtOH pancreatitis: lipase improved, pain resolved, tolerating reg diet 2. EtOH gastritis: PPI 3. Nausea: resolved 4. EtOH hepatitis: recovering. 5. EtOH toxicity: ativan PRN for W/D sx. still significant tremor 6. Hypokalemia: resolved 7. gout: new flare, improving. IV steroids x1 yesterday, now on colchine and allopurinol 8. prophylaxis: PPI, lovenox 9. Dispo: home wit PO ativen tid, F/U with [facility] detox Vitals Vitals Vital Signs Date Time Temp Pulse Resp B/P Pulse Ox O2 Delivery O2 Flow Rate FiO2 08/17/16 10:58 97.6 84 18 146/97 100 Room Air 97.6 Physical Exam Physical Exam tremors General: Alert, Oriented X3, Cooperative Heart: Regular rate Lungs: Clear Abdomen: Normal bowel sounds, Other (LUQ TTP) Extremities: No edema Skin: No rashes Labs LABS Laboratory Tests Test 08/17/16 04:05 White Blood Count 9.5x10^3/uL (4.0-11.0) Red Blood Count 4.11x10^6/uL (4.30-5.70) Hemoglobin 12.5g/dL (13.0-17.5) Hematocrit 36.8% (39.0-53.0) Mean Corpuscular Volume 89fL (79-100) Mean Corpuscular Hemoglobin 31pg (25-35) Mean Corpuscular Hemoglobin Concent 34g/dL (31-37) Red Cell Distribution Width 14.7% (11.5-14.5) Platelet Count 115x10^3/uL (140-400) Neutrophils (%) (Auto) 85% (31-73) Lymphocytes (%) (Auto) 7% (24-48) Monocytes (%) (Auto) 7% (0-9) Eosinophils (%) (Auto) 0% (0-3) Basophils (%) (Auto) 0% (0-3) Neutrophils # (Auto) 8.1x10^3uL (1.8-7.7) Lymphocytes # (Auto) 0.7x10^3/uL (1.0-4.8) Monocytes # (Auto) 0.7x10^3/uL (0.0-1.1) Eosinophils # (Auto) 0.0x10^3/uL (0.0-0.7) Basophils # (Auto) 0.0x10^3/uL (0.0-0.2) Sodium Level 140mmol/L (136-145) Potassium Level 4.2mmol/L (3.5-5.1) Chloride Level 103mmol/L (98-107) Carbon Dioxide Level 25mmol/L (21-32) Anion Gap 12 (6-14) Blood Urea Nitrogen 8mg/dL (8-26) Creatinine 1.0mg/dL (0.7-1.3) Estimated GFR (Cockcroft-Gault) 83.2 BUN/Creatinine Ratio 8 (6-20) Glucose Level 135mg/dL (70-99) Calcium Level 9.3mg/dL (8.5-10.1) Magnesium Level 1.5mg/dL (1.8-2.4) Total Bilirubin 0.3mg/dL (0.2-1.0) Aspartate Amino Transf (AST/SGOT) 48U/L (15-37) Alanine Aminotransferase (ALT/SGPT) 46U/L (16-63) Alkaline Phosphatase 66U/L (46-116) Total Protein 7.3g/dL (6.4-8.2) Albumin 3.2g/dL (3.4-5.0) Albumin/Globulin Ratio 0.8 (1.0-1.7) Review of Systems Review of Systems much improved. eager to go home Comment Review of Relevant I have reviewed the following items wali (where applicable) has been applied. Labs Laboratory Tests Test 08/16/16 05:05 08/17/16 04:05 White Blood Count 4.9x10^3/uL (4.0-11.0) 9.5x10^3/uL (4.0-11.0) Red Blood Count 3.92x10^6/uL (4.30-5.70) 4.11x10^6/uL (4.30-5.70) Hemoglobin 12.0g/dL (13.0-17.5) 12.5g/dL (13.0-17.5) Hematocrit 33.6% (39.0-53.0) 36.8% (39.0-53.0) Mean Corpuscular Volume 86fL (79-100) 89fL (79-100) Mean Corpuscular Hemoglobin 31pg (25-35) 31pg (25-35) Mean Corpuscular Hemoglobin Concent 36g/dL (31-37) 34g/dL (31-37) Red Cell Distribution Width 14.6% (11.5-14.5) 14.7% (11.5-14.5) Platelet Count 89x10^3/uL (140-400) 115x10^3/uL (140-400) Neutrophils (%) (Auto) 57% (31-73) 85% (31-73) Lymphocytes (%) (Auto) 28% (24-48) 7% (24-48) Monocytes (%) (Auto) 10% (0-9) 7% (0-9) Eosinophils (%) (Auto) 5% (0-3) 0% (0-3) Basophils (%) (Auto) 1% (0-3) 0% (0-3) Neutrophils # (Auto) 2.8x10^3uL (1.8-7.7) 8.1x10^3uL (1.8-7.7) Lymphocytes # (Auto) 1.4x10^3/uL (1.0-4.8) 0.7x10^3/uL (1.0-4.8) Monocytes # (Auto) 0.5x10^3/uL (0.0-1.1) 0.7x10^3/uL (0.0-1.1) Eosinophils # (Auto) 0.2x10^3/uL (0.0-0.7) 0.0x10^3/uL (0.0-0.7) Basophils # (Auto) 0.0x10^3/uL (0.0-0.2) 0.0x10^3/uL (0.0-0.2) Sodium Level 140mmol/L (136-145) 140mmol/L (136-145) Potassium Level 3.6mmol/L (3.5-5.1) 4.2mmol/L (3.5-5.1) Chloride Level 104mmol/L (98-107) 103mmol/L (98-107) Carbon Dioxide Level 28mmol/L (21-32) 25mmol/L (21-32) Anion Gap 8 (6-14) 12 (6-14) Blood Urea Nitrogen 8mg/dL (8-26) 8mg/dL (8-26) Creatinine 1.1mg/dL (0.7-1.3) 1.0mg/dL (0.7-1.3) Estimated GFR (Cockcroft-Gault) 74.5 83.2 BUN/Creatinine Ratio 7 (6-20) 8 (6-20) Glucose Level 114mg/dL (70-99) 135mg/dL (70-99) Calcium Level 8.2mg/dL (8.5-10.1) 9.3mg/dL (8.5-10.1) Magnesium Level 1.4mg/dL (1.8-2.4) 1.5mg/dL (1.8-2.4) Total Bilirubin 0.6mg/dL (0.2-1.0) 0.3mg/dL (0.2-1.0) Aspartate Amino Transf (AST/SGOT) 53U/L (15-37) 48U/L (15-37) Alanine Aminotransferase (ALT/SGPT) 39U/L (16-63) 46U/L (16-63) Alkaline Phosphatase 56U/L (46-116) 66U/L (46-116) Total Protein 6.1g/dL (6.4-8.2) 7.3g/dL (6.4-8.2) Albumin 2.7g/dL (3.4-5.0) 3.2g/dL (3.4-5.0) Albumin/Globulin Ratio 0.8 (1.0-1.7) 0.8 (1.0-1.7) Lipase 345U/L (73-393) Laboratory Tests Test 08/17/16 04:05 White Blood Count 9.5x10^3/uL (4.0-11.0) Red Blood Count 4.11x10^6/uL (4.30-5.70) Hemoglobin 12.5g/dL (13.0-17.5) Hematocrit 36.8% (39.0-53.0) Mean Corpuscular Volume 89fL (79-100) Mean Corpuscular Hemoglobin 31pg (25-35) Mean Corpuscular Hemoglobin Concent 34g/dL (31-37) Red Cell Distribution Width 14.7% (11.5-14.5) Platelet Count 115x10^3/uL (140-400) Neutrophils (%) (Auto) 85% (31-73) Lymphocytes (%) (Auto) 7% (24-48) Monocytes (%) (Auto) 7% (0-9) Eosinophils (%) (Auto) 0% (0-3) Basophils (%) (Auto) 0% (0-3) Neutrophils # (Auto) 8.1x10^3uL (1.8-7.7) Lymphocytes # (Auto) 0.7x10^3/uL (1.0-4.8) Monocytes # (Auto) 0.7x10^3/uL (0.0-1.1) Eosinophils # (Auto) 0.0x10^3/uL (0.0-0.7) Basophils # (Auto) 0.0x10^3/uL (0.0-0.2) Sodium Level 140mmol/L (136-145) Potassium Level 4.2mmol/L (3.5-5.1) Chloride Level 103mmol/L (98-107) Carbon Dioxide Level 25mmol/L (21-32) Anion Gap 12 (6-14) Blood Urea Nitrogen 8mg/dL (8-26) Creatinine 1.0mg/dL (0.7-1.3) Estimated GFR (Cockcroft-Gault) 83.2 BUN/Creatinine Ratio 8 (6-20) Glucose Level 135mg/dL (70-99) Calcium Level 9.3mg/dL (8.5-10.1) Magnesium Level 1.5mg/dL (1.8-2.4) Total Bilirubin 0.3mg/dL (0.2-1.0) Aspartate Amino Transf (AST/SGOT) 48U/L (15-37) Alanine Aminotransferase (ALT/SGPT) 46U/L (16-63) Alkaline Phosphatase 66U/L (46-116) Total Protein 7.3g/dL (6.4-8.2) Albumin 3.2g/dL (3.4-5.0) Albumin/Globulin Ratio 0.8 (1.0-1.7) Medications Current Medications Sodium Chloride (Iv Sodium Chloride 0.9% 1000ml Bag) 1,000 ml @ 1,000 mls/hr 1X ONCE IV Last administered on 08/13/16 19:20; Start 08/13/16 at 19:15; Stop 08/13/16 at 20:14; Status DC Ondansetron HCl 4 mg 4 mg 1X ONCE IV Last administered on 08/13/16 19:20; Start 08/13/16 at 19:45; Stop 08/13/16 at 19:46; Status DC Multivitamins/ Minerals/Folic Acid/Thiamine HCl/ Dextrose/Sodium Chloride ( Infuvite Adult/ Iv D5% - 1/2 NS) 1,011.2 ml @ 1,000 mls/ hr 1X ONCE IV Last administered on 08/13/16 19:49; Start 08/13/16 at 19:45; Stop 08/13/16 at 20:45 ; Status DC Acetaminophen (Tylenol) 650 mg PRN Q6HRS PRN PO FEVER Last administered on 08/13 22:45; Start 08/13/16 at 21:15 Ondansetron HCl (Zofran) 4 mg PRN Q6HRS PRN IV NAUSEA Last administered on 06:16; Start 08/13/16 at 21:15; Stop 08/14/16 at 10:29; Status DC Thiamine HCl (Vitamin B-1) 100 mg DAILY PO Last administered on 08/17/16 08:38 ; Start 08/14/16 at 09:00 Folic Acid (Folic Acid) 1 mg DAILY PO Last administered on 08/17/16 08:38; Start 08/14/16 at 09:00 Lorazepam (Ativan) 1 mg PRN Q6HRS PRN PO ANXIETY / AGITATION Last administered on 08/17/16 10:16; Start 08/13/16 at 21:15 Lorazepam (Ativan) 2 mg PRN Q4HRS PRN IV ANXIETY / AGITATION Last administered on 08/17/16 04:31; Start 08/13/16 at 21:15 Enoxaparin Sodium (Lovenox 40mg Syringe) 40 mg DAILY SQ Last administered on 08:38; Start 08/14/16 at 09:00 Albuterol Sulfate (Ventolin Neb Soln) 2.5 mg PRN Q4HRS PRN NEB SHORTNESS OF BREATH Last administered on 08/17/16 09:18; Start 08/13/16 at 21:15 Potassium Chloride (Klor-Con) 40 meq 1X ONCE PO Last administered on 22:20; Start 08/13/16 at 21:30; Stop 08/13/16 at 21:31; Status DC Albuterol/ Ipratropium 3 ml 3 ml RTQID NEB Last administered on 08/16/16 15:59 ; Start 08/14/16 at 08:00 Multivitamins/ Minerals/Thiamine HCl/Folic Acid/ Sodium Chloride (Infuvite Adult / Iv Sodium Chloride 0.9% 1000ml Bag) 1,011.2 ml @ 100 mls/ hr DAILY IV Last administered on 08/17/16 08:39; Start 08/14/16 at 09:00; Stop 08/19/16 at 08:59 Chlordiazepoxide (Librium) 25 mg Q6H PO Last administered on 08/15/16 04:00; Start 08/13/16 at 22:00; Stop 08/15/16 at 04:01; Status DC Morphine Sulfate 2 mg PRN Q2HR PRN IV PAIN Last administered on 08/14/16 04:45 ; Start 08/14/16 at 00:30; Stop 08/14/16 at 07:43; Status DC Morphine Sulfate 2 mg PRN Q4HRS PRN IV PAIN Last administered on 08/17/16 08:40 ; Start 08/14/16 at 07:45 Ondansetron HCl (Zofran) 8 mg PRN Q8HRS PRN IV NAUSEA 1ST CHOICE Last administered on 08/17/16 08:39; Start 08/14/16 at 14:30 Prochlorperazine Edisylate (Compazine) 10 mg PRN Q8HRS PRN IV NAUSEA/VOMITING, 2ND CHOICE Last administered on 08/16/16 23:16; Start 08/14/16 at 10:30 Methylprednisolone Sodium Succinate (Solu-Medrol 40mg Vial) 40 mg 1X ONCE IV Last administered on 08/16/16 12:48; Start 08/16/16 at 12:30; Stop 08/16/16 at 12: 31; Status DC Colchicine (Colcrys) 0.6 mg DAILY PO Last administered on 08/17/16 08:38; Start 08/16/16 at 13:00 Allopurinol (Zyloprim) 300 mg DAILY PO Last administered on 08/17/16 08:39; Start 08/16/16 at 13:00 Active Scripts Active Famotidine 20 Mg Tablet 20 Mg PO BID Zofran Odt (Ondansetron) 4 Mg Tab.rapdis 1 Tab SL Q8HRS Ativan (Lorazepam) 0.5 Mg Tablet 0.5 Mg PO TID Zofran Odt (Ondansetron) 4 Mg Tab.rapdis 1 Tab SL PRN Q8HRS PRN Hydrocodone-Apap 5-325 (Hydrocodone Bit/Acetaminophen) 1 Each Tablet 1 Tab PO PRN Q6HRS PRN Reported Symbicort 160-4.5 Mcg Inhaler (Budesonide/Formoterol Fumarate) 10.2 Gm Hfa.aer.ad 2 Puff IH BID Prilosec Otc (Omeprazole Magnesium) 20 Mg Tablet.dr 1 Tab PO DAILY Theophylline (Theophylline Anhydrous) 400 Mg Tablet.er 300 Mg PO BID Albuterol Sulfate Neb Soln (Albuterol Sulfate) 1.25 Mg/3 Ml Vial.neb 1.25 Mg IH Vitals/I & O Vital Sign - Last 24 Hours 08/16/16 08/16/16 08/16/16 08/16/16 14:59 15:12 16:00 19:46 Temp 97.6 97.6 Pulse 82 Resp 20 18 17 B/P 149/104 Pulse Ox 94 95 99 99 O2 Delivery Room Air Room Air Room Air Room Air 08/16/16 08/16/16 08/16/16 08/16/16 19:59 20:00 20:05 23:54 Temp 97.8 97.8 Pulse 91 Resp 20 16 B/P 157/99 Pulse Ox 95 95 O2 Delivery Room Air Room Air Room Air Room Air 08/16/16 08/17/16 08/17/16 08/17/16 23:59 03:59 04:31 05:12 Temp 97.7 97.5 97.7 97.5 Pulse 93 101 Resp 18 18 16 18 B/P 142/87 143/93 Pulse Ox 97 95 95 95 O2 Delivery Room Air Room Air Room Air 08/17/16 08/17/16 08/17/16 08/17/16 07:00 08:30 08:40 09:15 Temp 97.6 97.6 Pulse 89 Resp 20 B/P 170/125 Pulse Ox 98 O2 Delivery Room Air Room Air Room Air Room Air 08/17/16 08/17/16 09:18 10:58 Temp 97.6 97.6 Pulse 84 Resp 18 B/P 146/97 Pulse Ox 99 100 O2 Delivery Room Air Room Air Intake and Output 08/16/16 08/16/16 08/17/16 15:00 23:00 07:00 Intake Total 480 ml 600 ml 1000 ml Balance 480 ml 600 ml 1000 ml ANDREW YOST MD Aug 17, 2016 12:21
--- NOTE | 2016-08-17 13:40 | DISCH ---
DISCHARGE INSTRUCTIONS Condition on Discharge Condition on Discharge: Stable Activity After Discharge Activity Instructions for Disc: No restrictions Diet after Discharge Diet after Discharge: Susanna Contacting the DR. after DC Call your doctor for: Concerns you may have Follow-Up Follow up with: [facility] hospital Follow Up With: PCP in 2 weeks ANDREW YOST MD Aug 17, 2016 13:40
[2016-08-17] MEDS ORDERED: LORA-434 PO (13:45)
[2016-08-17] MEDS ORDERED: FOLI1TAB16 PO (13:45)
[2016-08-17] MEDS ORDERED: ALLO300T PO (13:45)
[2016-08-17] MEDS ORDERED: COLC0.6T34 PO (13:45)
[2016-08-17] MEDS ORDERED: THIA100T4 PO (13:45)
--- NOTE | 2016-08-18 22:26 | DS ---
DATE OF DISCHARGE: 08/17/2016 CHIEF COMPLAINT: Alcoholic pancreatitis, status post fall. HOSPITAL COURSE: The patient is a 41-year-old gentleman with history of alcoholic pancreatitis in April. He had been abstinent until about 10 days ago when he fell off the wagon once again and imbibed significant amounts. Had a fall secondary to intoxication as well as abdominal pain, which brought him to the Emergency Room. He was found with pancreatitis. He was treated conservatively with bowel rest, pain medications. Lipase and clinical symptoms improved fairly quickly. Also, has alcoholic gastritis for which he received proton pump inhibitor. For alcoholic toxicity, he was started on Ativan for withdrawal symptoms. Had significant tremors during his hospitalization, but otherwise was fairly stable. After discussion with him and his , he was agreeable to go home with Ativan rather than trying to transfer into [facility] from here. PHYSICAL EXAMINATION: Please refer to note from same day. DISCHARGE DATE: 08/17/2016 DISCHARGE CONDITION: Improved. DISCHARGE DISPOSITION: To home. DISCHARGE DIAGNOSES: 1. Alcoholic pancreatitis. 2. Alcohol withdrawal symptoms. DISCHARGE MEDICATIONS: Please refer to MAR. DISCHARGE INSTRUCTIONS: The patient will [place] [facility]. He will see his primary care physician as soon as possible as well. ANDREW YOST MD DR: UR/nts JOB#: [id number] / [id number] HERMILA Roman MDD
== END 2016-08-17 15:07 | disposition home or self-care (01) | DRG 438 ==
LOC: ER 18:03 → 5 SOUTH 20:54
PROVIDERS: ADMIT Internal Medicine; ATTEND Internal Medicine
DX: K85.90 Acute pancreatitis without necrosis or infection, unspecified (principal); G92 Toxic encephalopathy; F10.129 Alcohol abuse with intoxication, unspecified; K29.20 Alcoholic gastritis without bleeding; E87.6 Hypokalemia; F12.10 Cannabis abuse, uncomplicated; I10 Essential (primary) hypertension; J44.9 Chronic obstructive pulmonary disease, unspecified; J45.909 Unspecified asthma, uncomplicated; K21.9 Gastro-esophageal reflux disease without esophagitis; K70.10 Alcoholic hepatitis without ascites; M10.9 Gout, unspecified; Z82.49 Family history of ischemic heart disease and other diseases of the circulatory system; Z98.890 Other specified postprocedural states
CPT/HCPCS: 36415; 70450; 70486; 71010; 72125; 76700; 80048; 80053; 82550; 82607; 83690; 83735; 84100; 84443; 84484; 85027; 85610; 85730; 87804; 93005; 94250; 94640; 94760; 96365; 96375; G0480; G0481; J0780; J1650; J2060; J2270; J2405; J2920; J7030; J7620; 97116; 97530; 99285-25

== ENCOUNTER 2016-12-04 10:10 | Inpatient (IN) | payer SELFPAY ==
[~2016-12-04] VITALS: Ht 182.9 cm; Wt 105.0 kg
[2016-12-04] VITALS (14 sets, daily range): BP systolic 105–148; BP diastolic 63–84
[~2016-12-04 10:10] MED LIST changes: +ALLO300T PO; +BUDE10.2 IH; +COLC0.6T34 PO; +FOLI1TAB16 PO; +LORA-434 PO; +THIA100T4 PO
[2016-12-04] MEDS ORDERED: IV NORMAL SALINE 1000ML BAG 1,000 ML IV SCH (10:32)
[2016-12-04] MEDS ORDERED: ONDANSETRON PF 4 MG/2 ML VIAL. IV ONE (10:45)
[2016-12-04] MEDS ORDERED: PANTOPRAZOLE SODIUM IV 80 MG in IV NORMAL SALINE 100ML 100 ML IV ONE (10:45)
[2016-12-04] MEDS ORDERED: PANTOPRAZOLE IV PUSH 40 MG VIAL. IVP ONE (10:45)
[2016-12-04 10:54] LABS: BASO # 0.1 x10^3/uL (0.0-0.2); BASO % 1 % (0-3); EOS % 0 % (0-3); HEMATOCRIT 36.3 % (39.0-53.0); HEMOGLOBIN 12.7 g/dL (13.0-17.5); LYMPH # 1.2 x10^3/uL (1.0-4.8); LYMPH % 9 % (24-48); MEAN CORPUSCULAR HEMOGLOBIN 31 pg (25-35); MEAN CORPUSCULAR HGB CONC 35 g/dL (31-37); MEAN CORPUSCULAR VOLUME 87 fL (79-100); MONO % 6 % (0-9); NEUT % 85 % (31-73); PLATELET COUNT 171 x10^3/uL (140-400); RED BLOOD COUNT 4.15 x10^6/uL (4.30-5.70); RED CELL DISTRIBUTION WIDTH 13.6 % (11.5-14.5); WHITE BLOOD COUNT 13.9 x10^3/uL (4.0-11.0)
[2016-12-04] MEDS: fentaNYL PF VIAL 100 MCG/2 ML VIAL IV PRN ×6 (11:00→21:33)
[2016-12-04 11:03] LABS: CALCIUM 8.6 mg/dL (8.5-10.1); CREATININE 1.1 mg/dL (0.7-1.3); GFR 74.5; POTASSIUM 4.7 mmol/L (3.5-5.1)
[2016-12-04 11:09] LABS: ALBUMIN 3.7 g/dL (3.4-5.0); DIRECT BILIRUBIN 0.3 mg/dL (0.0-0.2); TOTAL BILIRUBIN 1.2 mg/dL (0.2-1.0); TOTAL PROTEIN 7.4 g/dL (6.4-8.2)
--- NOTE | 2016-12-04 11:11 | PHYS DOC ---
Past Medical History Past Medical History: Alcoholism, Asthma, GERD, Hypertension, Pancreatitis Past Surgical History: Tonsillectomy Additional Past Surgical Histo: adnoidectomy, left eye Alcohol Use: Heavy Drug Use: Marijuana Adult General Chief Complaint Chief Complaint: NAUSEA/VOMITING/DIARRHA HPI HPI Patient is a 41 year old alcoholic male who presents with nausea and vomiting x multiple that was nonbloody and nonbilious followed by bright red bloody emesis and dark stools. He quit drinking alcohol cold turkey yesterday. He is now shaky, has nausea, and LUQ abdominal pain worse than general abdominal pain. He has chills without measured fever and general throbbing headache. He denies chest pain, dyspnea, cough, dysuria, hematuria, vision changes. States he has abrasions from multiple falls without injury other than skin. Review of Systems Review of Systems Constitutional: Denies measured fever [] Eyes: Denies change in visual acuity, redness, or eye pain [] HENT: Denies nasal congestion or sore throat [] Respiratory: Denies cough or shortness of breath [] Cardiovascular: No additional information not addressed in HPI [] GI: Denies diarrhea [] : Denies dysuria or hematuria [] Musculoskeletal: Denies back pain or joint pain [] Integument: Denies rash or skin lesions [] Neurologic: Denies focal weakness or sensory changes [] Endocrine: Denies polyuria or polydipsia [] Current Medications Current Medications Current Medications Medications (Trade) Dose Ordered Sig/Wil Start Time Stop Time Status Last Admin Dose Admin Diazepam (Valium) 10 mg 1X ONCE 12/04/16 12:30 12/04/16 12:31 12/04/16 12:26 10 MG Fentanyl Citrate (Fentanyl 2ml Vial) 50 mcg PRN Q15MIN PRN 12/04/16 10:45 12/05/16 10:44 12/04/16 12:26 50 MCG Ondansetron HCl (Zofran) 4 mg 1X ONCE 12/04/16 10:45 12/04/16 10:46 DC 12/04/16 10:52 4 MG Pantoprazole Sodium (Protonix Vial) 40 mg 1X ONCE 12/04/16 10:45 12/04/16 10:46 DC 12/04/16 10:56 40 MG Pantoprazole Sodium 80 mg/ Sodium Chloride 100 ml @ 10 mls/hr 1X ONCE 12/04/16 10:45 12/04/16 20:44 12/04/16 11:21 10 MLS/HR Sodium Chloride 1,000 ml @ 1,000 mls/hr Q1H 12/04/16 10:32 12/04/16 11:31 DC 12/04/16 10:51 1,000 MLS/HR Allergies Allergies Allergies Coded Allergies Type Severity Reaction Last Updated Verified No Known Drug Allergies 04/30/16 No Physical Exam Physical Exam Constitutional: Well developed, well nourished, no acute distress, non-toxic appearance. [] HENT: Normocephalic, atraumatic, bilateral external ears normal, oropharynx moist, no oral exudates, nose normal. Tongue fasciculation present [] Eyes: PERRLA, EOMI, conjunctiva normal, no discharge. [] Neck: Normal range of motion, no tenderness, supple, no stridor. [] Cardiovascular:Heart rate regular rhythm [] Lungs & Thorax: Bilateral breath sounds clear to auscultation [] Abdomen: Bowel sounds normal, soft, no mild left upper quadrant more than general abdominal tenderness, no guarding or rebound. Rectal exam with small green stool with black flecks on glove; no hemorrhoid or fissure [] Skin: Warm, dry, no erythema, no rash. Has multiple healing abrasions to extremities and face without signs of infection [] Back: No tenderness, no CVA tenderness. [] Extremities: No tenderness, ROM intact, no edema. [] Neurologic: Alert and oriented X 3, normal motor function, normal sensory function, no focal deficits noted. [] Psychologic: Affect normal, judgement normal, mood normal. [] Current Patient Data Vital Signs Vital Signs Date Time Temp Pulse Resp B/P (MAP) Pulse Ox O2 Delivery O2 Flow Rate FiO2 12/04/16 12:26 18 100 Room Air 12/04/16 10:49 50 131/93 (106) 12/04/16 10:40 97.2 97.2 Lab Values Laboratory Tests Test 12/04/16 10:41 12/04/16 11:00 12/04/16 11:25 White Blood Count 13.9 x10^3/uL (4.0-11.0) H Red Blood Count 4.15 x10^6/uL (4.30-5.70) L Hemoglobin 12.7 g/dL (13.0-17.5) L Hematocrit 36.3 % (39.0-53.0) L Mean Corpuscular Volume 87 fL (79-100) Mean Corpuscular Hemoglobin 31 pg (25-35) Mean Corpuscular Hemoglobin Concent 35 g/dL (31-37) Red Cell Distribution Width 13.6 % (11.5-14.5) Platelet Count 171 x10^3/uL (140-400) Neutrophils (%) (Auto) 85 % (31-73) H Lymphocytes (%) (Auto) 9 % (24-48) L Monocytes (%) (Auto) 6 % (0-9) Eosinophils (%) (Auto) 0 % (0-3) Basophils (%) (Auto) 1 % (0-3) Neutrophils # (Auto) 11.8 x10^3uL (1.8-7.7) H Lymphocytes # (Auto) 1.2 x10^3/uL (1.0-4.8) Monocytes # (Auto) 0.9 x10^3/uL (0.0-1.1) Eosinophils # (Auto) 0.0 x10^3/uL (0.0-0.7) Basophils # (Auto) 0.1 x10^3/uL (0.0-0.2) Sodium Level 135 mmol/L (136-145) L Potassium Level 4.7 mmol/L (3.5-5.1) Chloride Level 95 mmol/L (98-107) L Carbon Dioxide Level 28 mmol/L (21-32) Anion Gap 12 (6-14) Blood Urea Nitrogen 29 mg/dL (8-26) H Creatinine 1.1 mg/dL (0.7-1.3) Estimated GFR (Cockcroft-Gault) 74.5 Glucose Level 122 mg/dL (70-99) H Calcium Level 8.6 mg/dL (8.5-10.1) Total Bilirubin 1.2 mg/dL (0.2-1.0) H Direct Bilirubin 0.3 mg/dL (0.0-0.2) H Aspartate Amino Transferase (AST) 60 U/L (15-37) H Alanine Aminotransferase (ALT) 55 U/L (16-63) Alkaline Phosphatase 64 U/L (46-116) Total Protein 7.4 g/dL (6.4-8.2) Albumin 3.7 g/dL (3.4-5.0) Lipase 82 U/L (73-393) Stool Occult Blood Negative (NEG) Urine Opiates Screen Neg (NEG) Urine Methadone Screen Neg (NEG) Urine Barbiturates Neg (NEG) Urine Phencyclidine Screen Neg (NEG) Urine Amphetamine/Methamphetamine Neg (NEG) Urine Benzodiazepines Screen Neg (NEG) Urine Cocaine Screen Pos (NEG) Urine Cannabinoids Screen Neg (NEG) Urine Ethyl Alcohol Pos (NEG) Laboratory Tests 12/04/16 10:41 Laboratory Tests 12/04/16 10:41 Course & Med Decision Making Course & Med Decision Making Pertinent Labs and Imaging studies reviewed. (See chart for details) Symptoms are improving with medications, but withdrawal symptoms are not quite controlled. Fecal occult is negative. Has elevated BUN, but hemoglobin appears stable compared to prior and laboratory evaluation is otherwise largely unremarkable. He will be admitted for alcohol withdrawal and likely upper GI bleeding. Discussed case with Dr. Ruvalcaba, who will admit. GI consult placed. Hemant Disclaimer Dragon Disclaimer This electronic medical record was generated, in whole or in part, using a voice recognition dictation system. Departure Departure Impression: Primary Impression: Alcohol withdrawal Additional Impression: Upper GI bleed Disposition: ADMITTED INPATIENT Condition: CRITICAL Referrals: HREMILA JACKSON MD (PCP) Problem Qualifiers Primary Impression: Alcohol withdrawal Complication of substance-induced condition: uncomplicated Qualified Codes: F10.230 - Alcohol dependence with withdrawal, uncomplicated Brady CADE MD December 04, 2016 11:11
[2016-12-04 11:32] LABS: NEG OBC FOB NEG; POS OBC FOB POS
[2016-12-04 12:05] LABS: BARBITURATES NEG (NEG); BENZODIAZEPINES NEG (NEG); CANNABINOIDS NEG (NEG); COCAINE POS (NEG); METHADONE NEG (NEG); OPIATES NEG (NEG); PHENCYCLIDINE NEG (NEG)
[2016-12-04] MEDS ORDERED: ACETAMINOPHEN 325 MG TABLET. PO PRN (12:30)
[2016-12-04] MEDS ORDERED: THIAMINE 100 MG TABLET. PO ONE (12:30)
[2016-12-04] MEDS ORDERED: ONDANSETRON PF 4 MG/2 ML VIAL. IV PRN (12:30)
[2016-12-04] MEDS ORDERED: FOLIC ACID 1 MG TABLET. PO ONE (12:30)
[2016-12-04] MEDS ORDERED: POTASSIUM CL 20MEQ D5-0.9%NACL 1,000 ML IV ONE (12:30)
[2016-12-04] MEDS ORDERED: MULTIVITAMIN with MINERAL TABLET. PO ONE (12:30)
[2016-12-04] MEDS ORDERED: LORazepam 1 MG TABLET PO PRN ×2 (13:15)
--- NOTE | 2016-12-04 13:48 | PDOC2 ---
GI CONSULT Reason For Consult: Upper GI bleed HPI: HPI: 41 y/o male who has previously seen Dr. Rogers. H/o alcoholism, alcoholic pancreatitis x 2, GERD (controlled on OTC omeprazole QD, EGD 20 years ago w/ esophageal dilation at ). Previous imaging as below. On this occasion admitted to ICU from ER for alcohol withdrawal. D/w Dr. Bonilla , ER physician. Drank two "fifths" of whiskey yesterday and decided to quit drinking altogether. Says he has vertigo when he drinks and falls frequently, currently w/ injuries to nose and forehead. Began feeling shaky and sweaty, and also started vomiting. Believes emesis contained red blood at least once and then was bilious w/ black flakes. Because of this, he came to the ER. Also reports 4-5 stools that "looked like black water." Vomiting and diarrhea last occurred this morning. Perhaps some upper abd discomfort. No NSAID use, reflux symptoms, dysphagia, weight loss. No previous colonoscopy. Has been tachycardic and hypertensive in ER. Hgb 12.7, compared to 12 last admission (in 08/2016), although has been higher/WNL prior to that. BUN is elevated (29) w/ normal Cr (1.1). Tox screen positive for cocaine, urine ethyl alcohol. Stool is heme negative. PMH: PMH: alcoholism, asthma (on theophylline, nebulizers, inhalers), GERD, pancreatitis, HTN, gout, tonsillectomy, left eye surgery FH: Family History: Cancer (father - bladder cancer), Other (parent and grandparent have dysphagia and GERD) Social History: Smoke: No ALCOHOL: heavy Drugs: Cocaine, Marijuana ROS: GEN: +sweats HEENT: +hoarseness CV: Denies chest pain RESP: Denies shortness of air, cough GI: Per HPI : Denies hematuria, dysuria ENDO: Denies weight changes NEURO: +dizziness/falls MSK: Denies weakness, joint pain/swelling SKIN: wounds to nose, forehead Vitals: Vitals: Vital Signs Date Time Temp Pulse Resp B/P (MAP) Pulse Ox O2 Delivery O2 Flow Rate FiO2 12/04/16 13:12 16 98 Room Air 12/04/16 12:49 104 128/59 (82) 12/04/16 10:40 97.2 97.2 Labs: Labs: Laboratory Tests Test 12/04/16 10:41 12/04/16 11:00 12/04/16 11:25 White Blood Count 13.9 x10^3/uL (4.0-11.0) Red Blood Count 4.15 x10^6/uL (4.30-5.70) Hemoglobin 12.7 g/dL (13.0-17.5) Hematocrit 36.3 % (39.0-53.0) Mean Corpuscular Volume 87 fL (79-100) Mean Corpuscular Hemoglobin 31 pg (25-35) Mean Corpuscular Hemoglobin Concent 35 g/dL (31-37) Red Cell Distribution Width 13.6 % (11.5-14.5) Platelet Count 171 x10^3/uL (140-400) Neutrophils (%) (Auto) 85 % (31-73) Lymphocytes (%) (Auto) 9 % (24-48) Monocytes (%) (Auto) 6 % (0-9) Eosinophils (%) (Auto) 0 % (0-3) Basophils (%) (Auto) 1 % (0-3) Neutrophils # (Auto) 11.8 x10^3uL (1.8-7.7) Lymphocytes # (Auto) 1.2 x10^3/uL (1.0-4.8) Monocytes # (Auto) 0.9 x10^3/uL (0.0-1.1) Eosinophils # (Auto) 0.0 x10^3/uL (0.0-0.7) Basophils # (Auto) 0.1 x10^3/uL (0.0-0.2) Sodium Level 135 mmol/L (136-145) Potassium Level 4.7 mmol/L (3.5-5.1) Chloride Level 95 mmol/L (98-107) Carbon Dioxide Level 28 mmol/L (21-32) Anion Gap 12 (6-14) Blood Urea Nitrogen 29 mg/dL (8-26) Creatinine 1.1 mg/dL (0.7-1.3) Estimated GFR (Cockcroft-Gault) 74.5 Glucose Level 122 mg/dL (70-99) Calcium Level 8.6 mg/dL (8.5-10.1) Total Bilirubin 1.2 mg/dL (0.2-1.0) Direct Bilirubin 0.3 mg/dL (0.0-0.2) Aspartate Amino Transf (AST/SGOT) 60 U/L (15-37) Alanine Aminotransferase (ALT/SGPT) 55 U/L (16-63) Alkaline Phosphatase 64 U/L (46-116) Total Protein 7.4 g/dL (6.4-8.2) Albumin 3.7 g/dL (3.4-5.0) Lipase 82 U/L (73-393) Ethyl Alcohol Level < 10 mg/dL (0-10) Stool Occult Blood Negative (NEG) Urine Opiates Screen Neg (NEG) Urine Methadone Screen Neg (NEG) Urine Barbiturates Neg (NEG) Urine Phencyclidine Screen Neg (NEG) Urine Amphetamine/Methamphetamine Neg (NEG) Urine Benzodiazepines Screen Neg (NEG) Urine Cocaine Screen Pos (NEG) Urine Cannabinoids Screen Neg (NEG) Urine Ethyl Alcohol Pos (NEG) Allergies: Coded Allergies: No Known Drug Allergies (Unverified , 04/30/16) Medications: Current Medications Medications (Trade) Dose Ordered Sig/Wil Route PRN Reason Start Time Stop Time Status Last Admin Dose Admin Fentanyl Citrate (Fentanyl 2ml Vial) 50 mcg PRN Q15MIN PRN IV PAIN GREATER THAN 3/10 12/04/16 10:45 12/05/16 10:44 12/04/16 13:12 Sodium Chloride 1,000 ml @ 1,000 mls/hr Q1H IV 12/04/16 10:32 12/04/16 11:31 DC 12/04/16 10:51 Ondansetron HCl (Zofran) 4 mg 1X ONCE IV 12/04/16 10:45 12/04/16 10:46 DC 12/04/16 10:52 Pantoprazole Sodium (Protonix Vial) 40 mg 1X ONCE IVP 12/04/16 10:45 12/04/16 10:46 DC 12/04/16 10:56 Diazepam (Valium) 20 mg 1X ONCE IV 12/04/16 10:45 12/04/16 10:46 DC 12/04/16 10:52 Pantoprazole Sodium 80 mg/ Sodium Chloride 100 ml @ 10 mls/hr 1X ONCE IV 12/04/16 10:45 12/04/16 20:44 12/04/16 11:21 Diazepam (Valium) 10 mg 1X ONCE IV 12/04/16 12:30 12/04/16 12:31 DC 12/04/16 12:26 Potassium Chloride/Dextrose/ Sod Cl 1,000 ml @ 100 mls/hr 1X ONCE IV 12/04/16 12:30 12/04/16 22:29 12/04/16 13:04 Multivitamins (Thera M Plus) 1 tab 1X ONCE PO 12/04/16 12:30 12/04/16 12:36 DC 12/04/16 13:04 Thiamine Mononitrate (Vitamin B-1) 100 mg 1X ONCE PO 12/04/16 12:30 12/04/16 12:36 DC 12/04/16 13:05 Folic Acid (Folic Acid) 1 mg 1X ONCE PO 12/04/16 12:30 12/04/16 12:36 DC 12/04/16 13:04 Diazepam (Valium) 10 mg 1X ONCE IV 12/04/16 12:45 12/04/16 12:46 DC 12/04/16 13:04 Imaging: Imaging: Abd US 08/13/16 Distended gallbladder w/ sludge (no stone), hepatomegaly w/ hepatic steatosis. CT 06/19/16 Mild hepatic steatosis, normal gallbladder and pancreas. CT A/P 04/30/16 Mild hepatomegaly c/w fatty change, poorly defined distal body and tail of pancreas c/w acute pancreatitis, distended gallbladder. PE: GEN: tremulous, hoarse HEENT: lacerations to forehead and nose LUNGS: clear anteriorly HEART: tachycardic ABD: BS+, non-tender, soft EXTREMITY: No edema SKIN: dried blood on feet NEURO/PSYCH: A & O 3 OTHER: and RN present A/P: A/P: Alcohol withdrawal -tremors, n/v, tachycardic, hypertensive; admitted to ICU Substance abuse -alcohol, cocaine Hematemesis/coffee-ground emesis, dark stools -describes multiple episodes of vomiting, noted red blood and black flakes -reports 4-5 "black water" stools -Hgb 12.7 (stable from last admission in 08/2016), BUN elevated w/ normal Cr -started on IV PPI, NPO H/o pancreatitis -presumably 2/2 alcohol, note gallbladder sludge on abd US earlier this year H/o GERD -controlled on OTC PPI QD -previous EGD w/ dilation at (20 years ago) CRC screen -no previous colonoscopy, average risk -- Withdrawal precautions. Continue IV PPI and NPO for now, monitor labs and for recurrent bleeding. If stable, possibly advance diet tomorrow. No plans for EGD at this point. MESSI GORE December 04, 2016 13:48
--- NOTE | 2016-12-04 14:44 | ACF ---
Admission Forms Criteria ALCOHOL AND PSYCHOACTIVE SUBSTANCE WITHDRAWAL Clinical Indications for Inpatient Care (Place ' X' for any and all applicable criteria): Ongoing inpatient care may be indicated for substance withdrawal[B][C] with ANY ONE of the following(1)(2)(3)(4)(21): [ ]I. Delirium due to alcohol or sedative[D] withdrawal is present. [X]II. Marked signs of withdrawal are present as indicated by ANY ONE of the following(15)(22)(23) [ ]a) Heart rate greater than 120 beats per minute is present. [ ]b) Severe vomiting is present (eg, precludes maintenance of oral hydration). [X]c) Grossly visible tremor is present. [ ]d) Profuse perspiration is present. [ ]e) Temperature greater than 101 degrees F (38.3 degrees C) is present. [ ]f) Other signs of severe withdrawal are present (eg, Altered mental status ) [ ]g) Severe withdrawal identified by standardized assessment score[A] [ ]III. Signs of withdrawal that require continued inpatient treatment as indicated by ANY ONE of the following(15)(22)(23): [ ]a) Inadequate response to pharmacotherapy (eg, benzodiazepines) [ ]b) Outpatient or lower level of care is not feasible or appropriate (eg, unavailable or inappropriate to patient condition or treatment history). [ ]IV. Withdrawal signs with high-risk indicator are present as manifested by ALL of the following[A](15)(22)(23) [ ]a) Signs of withdrawal are present as indicated by ANY ONE of the following: [ ]i. Tachycardia is present. [ ]ii. Nausea or vomiting is present. [ ]iii. Tremor is present. [ ]iv. Increased perspiration is present. [ ]v. Other signs of withdrawal are present. [ ]vi. Withdrawal identified by standardized assessment score [A] [ ]b) Elevated risk due to historical or comorbid factor is present as indicated by ANY ONE of the following: [ ]i. History of delirium due to withdrawal is present. [ ]ii. History of seizures due to withdrawal is present.[E] [ ]iii. Intrinsic seizure disorder (epilepsy) is present. [ ]iv. Patient is . [ ]v. Other significant medical history (eg, severe cardiac disease) is present, which is assessed to be at risk for destabilization due to withdrawal. [ ]V. Serious electrolyte abnormalities (eg, hyponatremia, hypokalemia, hypophosphatemia) requiring correction performable only in inpatient setting(6)(25) [ ]. Severe hypoglycemia requiring glucose infusions performable only in inpatient setting(6) [ ]VII. Drug toxicity or instability, such as Altered mental status, respiratory depression, or arrhythmias, that requires inpatient care [ ]VIII. Danger judged unmanageable at lower level of care because of ANY ONE of the following [ ]a) Danger to self [ ]b) Danger to others [ ]c) Grave disability (eg, inability to perform self-care necessary at lower level of care) The original [facility] Care [facility] content created by [facility] has been revised. The portions of the content which have been revised are identified through the use of italic text or in bold. [facility] Care Guidelines has neither reviewed nor approved the modified material. All other unmodified content is copyright [facility] Care [facility]. Please see references footnoted in the original [facility] CareGuidelines edition 2016 Admission Criteria Met?: Yes JULES DELEON December 04, 2016 14:44
--- NOTE | 2016-12-04 15:36 | PDOC1 ---
History and Physical Past Medical History Pulmonary: Asthma Past Surgical History Past Surgical History: No pertinent history Family History Family History: Hypertension Social History Smoke: No ALCOHOL: heavy Drugs: Cocaine, Marijuana Current Problem List Problem List Problems Medical Problems: (1) Alcohol withdrawal Status: Acute (2) Upper GI bleed Status: Acute Current Medications Current Medications Current Medications Medications (Trade) Dose Ordered Sig/Wil Start Time Stop Time Status Last Admin Dose Admin Acetaminophen (Tylenol) 650 mg PRN Q4HRS PRN 12/04/16 12:30 12/05/16 12:29 Diazepam (Valium) 10 mg PRN Q5MIN PRN 12/04/16 13:15 Fentanyl Citrate (Fentanyl 2ml Vial) 50 mcg PRN Q2HR PRN 12/04/16 12:30 12/05/16 12:29 Folic Acid (Folic Acid) 1 mg 1X ONCE 12/04/16 12:30 12/04/16 12:36 DC 12/04/16 13:04 1 MG Lorazepam (Ativan) 4 mg PRN Q1HR PRN 12/04/16 13:45 12/04/16 13:59 4 MG Multivitamins (Thera M Plus) 1 tab 1X ONCE 12/04/16 12:30 12/04/16 12:36 DC 12/04/16 13:04 1 TAB Ondansetron HCl (Zofran) 4 mg PRN Q8HRS PRN 12/04/16 12:30 12/05/16 12:29 Pantoprazole Sodium (Protonix Vial) 40 mg 1X ONCE 12/04/16 10:45 12/04/16 10:46 DC 12/04/16 10:56 40 MG Pantoprazole Sodium 80 mg/ Sodium Chloride 100 ml @ 10 mls/hr 1X ONCE 12/04/16 10:45 12/04/16 20:44 12/04/16 11:21 10 MLS/HR Potassium Chloride/Dextrose/ Sod Cl 1,000 ml @ 100 mls/hr 1X ONCE 12/04/16 12:30 12/04/16 22:29 12/04/16 13:04 100 MLS/HR Sodium Chloride 1,000 ml @ 1,000 mls/hr Q1H 12/04/16 10:32 12/04/16 11:31 DC 12/04/16 10:51 1,000 MLS/HR Thiamine Mononitrate (Vitamin B-1) 100 mg 1X ONCE 12/04/16 12:30 12/04/16 12:36 DC 12/04/16 13:05 100 MG Allergies Allergies Allergies Coded Allergies Type Severity Reaction Last Updated Verified No Known Drug Allergies 04/30/16 No ROS Review of System CONSTITUTIONAL: No fever or chills EYES: No recent changes SKIN: No rash or itching CARDIOVASCULAR: No chest pain, syncope, palpitations, or edema RESPIRATORY: No SOB or cough GASTROINTESTINAL: nausea, vomiting, coffee ground emesis NEUROLOGICAL: No headaches or weakness ENDOCRINE: No cold or heat intolerance GENITOURINARY: No urgency or frequency of urination MUSCULOSKELETAL: No back pain or joint pain LYMPHATICS: No enlarged lymph nodes PSYCHIATRIC: anxious Physical Exam Physical Exam GEN.: No apparent distress. Alert and oriented. tachycardia, HEENT: Head is normocephalic, atraumatic NECK: Supple. no JVD LUNGS: Clear to auscultation. HEART: TACHY, S1, S2 present. Peripheral pulses intact ABDOMEN: Soft, nontender. Positive bowel sounds. EXTREMITIES: Without any cyanosis. NEUROLOGIC: Normal speech, normal tone PSYCHIATRIC: Normal affect, normal mood. SKIN: CUT ON NOSE, several abrasion on Extremities, per family pt had fall few days ago. Vitals Vitals Vital Signs Date Time Temp Pulse Resp B/P (MAP) Pulse Ox O2 Delivery O2 Flow Rate FiO2 12/04/16 14:18 20 97 Room Air 12/04/16 13:19 108 141/81 (101) 12/04/16 10:40 97.2 97.2 Labs Labs Laboratory Tests Test 12/04/16 10:41 12/04/16 11:00 12/04/16 11:25 White Blood Count 13.9 x10^3/uL (4.0-11.0) Red Blood Count 4.15 x10^6/uL (4.30-5.70) Hemoglobin 12.7 g/dL (13.0-17.5) Hematocrit 36.3 % (39.0-53.0) Mean Corpuscular Volume 87 fL (79-100) Mean Corpuscular Hemoglobin 31 pg (25-35) Mean Corpuscular Hemoglobin Concent 35 g/dL (31-37) Red Cell Distribution Width 13.6 % (11.5-14.5) Platelet Count 171 x10^3/uL (140-400) Neutrophils (%) (Auto) 85 % (31-73) Lymphocytes (%) (Auto) 9 % (24-48) Monocytes (%) (Auto) 6 % (0-9) Eosinophils (%) (Auto) 0 % (0-3) Basophils (%) (Auto) 1 % (0-3) Neutrophils # (Auto) 11.8 x10^3uL (1.8-7.7) Lymphocytes # (Auto) 1.2 x10^3/uL (1.0-4.8) Monocytes # (Auto) 0.9 x10^3/uL (0.0-1.1) Eosinophils # (Auto) 0.0 x10^3/uL (0.0-0.7) Basophils # (Auto) 0.1 x10^3/uL (0.0-0.2) Sodium Level 135 mmol/L (136-145) Potassium Level 4.7 mmol/L (3.5-5.1) Chloride Level 95 mmol/L (98-107) Carbon Dioxide Level 28 mmol/L (21-32) Anion Gap 12 (6-14) Blood Urea Nitrogen 29 mg/dL (8-26) Creatinine 1.1 mg/dL (0.7-1.3) Estimated GFR (Cockcroft-Gault) 74.5 Glucose Level 122 mg/dL (70-99) Calcium Level 8.6 mg/dL (8.5-10.1) Total Bilirubin 1.2 mg/dL (0.2-1.0) Direct Bilirubin 0.3 mg/dL (0.0-0.2) Aspartate Amino Transf (AST/SGOT) 60 U/L (15-37) Alanine Aminotransferase (ALT/SGPT) 55 U/L (16-63) Alkaline Phosphatase 64 U/L (46-116) Total Protein 7.4 g/dL (6.4-8.2) Albumin 3.7 g/dL (3.4-5.0) Lipase 82 U/L (73-393) Ethyl Alcohol Level < 10 mg/dL (0-10) Stool Occult Blood Negative (NEG) Urine Opiates Screen Neg (NEG) Urine Methadone Screen Neg (NEG) Urine Barbiturates Neg (NEG) Urine Phencyclidine Screen Neg (NEG) Urine Amphetamine/Methamphetamine Neg (NEG) Urine Benzodiazepines Screen Neg (NEG) Urine Cocaine Screen Pos (NEG) Urine Cannabinoids Screen Neg (NEG) Urine Ethyl Alcohol Pos (NEG) Laboratory Tests Test 12/04/16 10:41 12/04/16 11:00 12/04/16 11:25 White Blood Count 13.9 x10^3/uL (4.0-11.0) Red Blood Count 4.15 x10^6/uL (4.30-5.70) Hemoglobin 12.7 g/dL (13.0-17.5) Hematocrit 36.3 % (39.0-53.0) Mean Corpuscular Volume 87 fL (79-100) Mean Corpuscular Hemoglobin 31 pg (25-35) Mean Corpuscular Hemoglobin Concent 35 g/dL (31-37) Red Cell Distribution Width 13.6 % (11.5-14.5) Platelet Count 171 x10^3/uL (140-400) Neutrophils (%) (Auto) 85 % (31-73) Lymphocytes (%) (Auto) 9 % (24-48) Monocytes (%) (Auto) 6 % (0-9) Eosinophils (%) (Auto) 0 % (0-3) Basophils (%) (Auto) 1 % (0-3) Neutrophils # (Auto) 11.8 x10^3uL (1.8-7.7) Lymphocytes # (Auto) 1.2 x10^3/uL (1.0-4.8) Monocytes # (Auto) 0.9 x10^3/uL (0.0-1.1) Eosinophils # (Auto) 0.0 x10^3/uL (0.0-0.7) Basophils # (Auto) 0.1 x10^3/uL (0.0-0.2) Sodium Level 135 mmol/L (136-145) Potassium Level 4.7 mmol/L (3.5-5.1) Chloride Level 95 mmol/L (98-107) Carbon Dioxide Level 28 mmol/L (21-32) Anion Gap 12 (6-14) Blood Urea Nitrogen 29 mg/dL (8-26) Creatinine 1.1 mg/dL (0.7-1.3) Estimated GFR (Cockcroft-Gault) 74.5 Glucose Level 122 mg/dL (70-99) Calcium Level 8.6 mg/dL (8.5-10.1) Total Bilirubin 1.2 mg/dL (0.2-1.0) Direct Bilirubin 0.3 mg/dL (0.0-0.2) Aspartate Amino Transf (AST/SGOT) 60 U/L (15-37) Alanine Aminotransferase (ALT/SGPT) 55 U/L (16-63) Alkaline Phosphatase 64 U/L (46-116) Total Protein 7.4 g/dL (6.4-8.2) Albumin 3.7 g/dL (3.4-5.0) Lipase 82 U/L (73-393) Ethyl Alcohol Level < 10 mg/dL (0-10) Stool Occult Blood Negative (NEG) Urine Opiates Screen Neg (NEG) Urine Methadone Screen Neg (NEG) Urine Barbiturates Neg (NEG) Urine Phencyclidine Screen Neg (NEG) Urine Amphetamine/Methamphetamine Neg (NEG) Urine Benzodiazepines Screen Neg (NEG) Urine Cocaine Screen Pos (NEG) Urine Cannabinoids Screen Neg (NEG) Urine Ethyl Alcohol Pos (NEG) VTE Prophylaxis Ordered VTE Prophylaxis Devices: Yes VTE Pharmacological Prophylaxi: Yes YONI HUSSEIN MD December 04, 2016 15:36
[2016-12-04 20:26] LABS: HEMATOCRIT 31.5 % (39.0-53.0); HEMOGLOBIN 10.8 g/dL (13.0-17.5); RED BLOOD COUNT 3.5 x10^6/uL (4.30-5.70); RED CELL DISTRIBUTION WIDTH 13.4 % (11.5-14.5); WHITE BLOOD COUNT 8.5 x10^3/uL (4.0-11.0)
[2016-12-04] MEDS: MULTIVIT INFUSN,ADULT 4,VIT K 10 ML, FOLIC ACID 1 MG, THIAMINE 100 MG in IV DEXTROSE 5 ... IV SCH (21:37)
[2016-12-05] VITALS (15 sets, daily range): BP systolic 103–124; BP diastolic 50–84
[2016-12-05] MEDS: fentaNYL PF VIAL 100 MCG/2 ML VIAL IV PRN ×3 (03:45→11:00)
--- NOTE | 2016-12-05 05:32 | HP ---
ADMIT DATE: 12/04/2016 CHIEF COMPLAINT: Upper GI bleeding. HISTORY OF PRESENT ILLNESS: A 41-year-old male patient with a prior history of alcoholism, alcoholic pancreatitis, GERD, presented to the ER with complaints of nausea, vomiting multiple times with nonbloody, nonbilious vomiting followed by bright red blood emesis and dark stools. The patient has a significant history of alcoholism, was admitted a few times here for alcohol withdrawals. The patient drank two fifths of whiskey yesterday and decided to quit drinking altogether and developed some shakiness, sweatiness and also had a fall a few days ago, noted to have abrasions on his nose and ankle and upper extremities. At the time of arrival, he was tachycardic and hypertensive and he was requiring high levels of benzodiazepines to control his symptoms and he is requiring ICU admission for the severity of symptoms. PAST MEDICAL HISTORY: Alcoholism, asthma, GERD, pancreatitis, alcoholic hypertension and left eye surgery. FAMILY HISTORY: Father has bladder cancer and grandparents have dysphagia, GERD. SOCIAL HISTORY: Alcoholism drugs, cocaine and marijuana, smoking ____. ALLERGIES: NKDA. REVIEW OF SYSTEMS AND PHYSICAL EXAMINATION: Please see my electronic H and P. LABORATORY FINDINGS: CBC: WBC is 13.9, hemoglobin is 12.7, MCV is 87. Chemistries: Sodium 135, potassium is 4.7, chloride is 95, carbon dioxide 28, gap is 12, BUN is 29, creatinine is 1.1. Toxicology positive for cocaine and positive for alcohol. Fecal occult blood test negative. ASSESSMENT: 1. Severe alcohol withdrawals. 2. Substance abuse, alcohol and cocaine. 3. Questionable coffee-ground emesis. 4. Prior history of alcoholic pancreatitis. 5. History of gastroesophageal reflux disease. 6. Dehydration. 7. Fall at home with bruises on face and upper extremities and lower extremities. PLAN: 1. He has been placed on alcohol withdrawal protocol. Currently, the patient got Valium in the ER and given his amount of Valium he was requiring, he needs to be placed in the ICU due to the severity of symptoms. Along with that, he has a prior history of pancreatitis with GERD. Given the nature of complaints, ? upper GI bleeding, the patient has been placed in the Critical Care Unit. Currently, he is on Protonix GTT 80 mL per hour and also placed on alcohol withdrawal prevention. The patient has been placed on multivitamin replacement with thiamine and folic acid. 2. Pain control. He has been placed on fentanyl. 3. Plan discussed with the RN and we will get a CT of the head, maxillofacial tomorrow as the patient has cuts on his nose. 4. Overall prognosis is guarded. Critical care time is 31 minutes. We will check serial hemoglobins. If the patient's hemoglobin drops significantly, he may need transfusion of 1 unit of PRBC. 5. Consult criminal justice social worker for substance abuse program. cc time 31 min. YONI HUSSEIN MD DR: AVI/gretel JOB#: [id number] / [id number] JAJA
[2016-12-05] MEDS: PANTOPRAZOLE SODIUM IV 80 MG in IV NORMAL SALINE 100ML 100 ML IV SCH ×2 (06:25→18:09)
--- NOTE | 2016-12-05 08:56 | PDOC ---
Subjective: Subjective: Wants to eat. No n/v or bleeding. Some LUQ discomfort. Objective: Objective: Per RN - no recurrent bleeding, n/v, diarrhea. Vital Signs: Vital Signs Date Time Temp Pulse Resp B/P (MAP) Pulse Ox O2 Delivery O2 Flow Rate FiO2 12/05/16 08:40 12 100 Room Air 12/05/16 08:00 98.0 91 110/68 (82) 98.0 Labs: Laboratory Tests Test 12/04/16 10:41 12/04/16 11:00 12/04/16 11:25 12/04/16 15:50 White Blood Count 13.9 x10^3/uL Red Blood Count 4.15 x10^6/uL Hemoglobin 12.7 g/dL Hematocrit 36.3 % Mean Corpuscular Volume 87 fL Mean Corpuscular Hemoglobin 31 pg Mean Corpuscular Hemoglobin Concent 35 g/dL Red Cell Distribution Width 13.6 % Platelet Count 171 x10^3/uL Neutrophils (%) (Auto) 85 % Lymphocytes (%) (Auto) 9 % Monocytes (%) (Auto) 6 % Eosinophils (%) (Auto) 0 % Basophils (%) (Auto) 1 % Neutrophils # (Auto) 11.8 x10^3uL Lymphocytes # (Auto) 1.2 x10^3/uL Monocytes # (Auto) 0.9 x10^3/uL Eosinophils # (Auto) 0.0 x10^3/uL Basophils # (Auto) 0.1 x10^3/uL Sodium Level 135 mmol/L Potassium Level 4.7 mmol/L Chloride Level 95 mmol/L Carbon Dioxide Level 28 mmol/L Anion Gap 12 Blood Urea Nitrogen 29 mg/dL Creatinine 1.1 mg/dL Estimated GFR (Cockcroft-Gault) 74.5 Glucose Level 122 mg/dL Calcium Level 8.6 mg/dL Total Bilirubin 1.2 mg/dL Direct Bilirubin 0.3 mg/dL Aspartate Amino Transf (AST/SGOT) 60 U/L Alanine Aminotransferase (ALT/SGPT) 55 U/L Alkaline Phosphatase 64 U/L Total Protein 7.4 g/dL Albumin 3.7 g/dL Lipase 82 U/L Ethyl Alcohol Level < 10 mg/dL Stool Occult Blood Negative Urine Opiates Screen Neg Urine Methadone Screen Neg Urine Barbiturates Neg Urine Phencyclidine Screen Neg Urine Amphetamine/Methamphetamine Neg Urine Benzodiazepines Screen Neg Urine Cocaine Screen Pos Urine Cannabinoids Screen Neg Urine Ethyl Alcohol Pos Nasal Screen MRSA (PCR) Negative Test 12/04/16 20:20 White Blood Count 8.5 x10^3/uL Red Blood Count 3.50 x10^6/uL Hemoglobin 10.8 g/dL Hematocrit 31.5 % Mean Corpuscular Volume 90 fL Mean Corpuscular Hemoglobin 31 pg Mean Corpuscular Hemoglobin Concent 34 g/dL Red Cell Distribution Width 13.4 % Platelet Count 113 x10^3/uL PE: GEN: still tremulous LUNGS: CTAB HEART: RRR ABD: vague LUQ discomfort NEURO/PSYCH: A & O 3 A/P: Alcohol withdrawal, substance abuse Hematemesis/coffee-ground emesis, dark stools - prior to admission Hgb from 12.7 to 10.8, BUN was 29 yesterday -h/o GERD on OTC PPI QD at home, EGD at 20 years ago -has been NPO on PPI drip LUQ discomfort H/o pancreatitis -presumably 2/2 alcohol, note gallbladder sludge on abd US earlier this year -- Wants to eat, okay to try diet. Continue supportive care for withdrawal, observe. MESSI GORE December 05, 2016 08:56
--- NOTE | 2016-12-05 12:55 | RAD ---
Indication fall, facial injury particularly around the nose and forehead. Maxillofacial CT was performed. Images were reformatted in the coronal and sagittal planes. Note is made of a similar examination August 13, 2016. The visualized brain appears unremarkable. There is modest mucosal thickening seen associated with the right maxillary sinus and a minimal amount of mucosal thickening associated with the left. There is partial opacification of ethmoid air cells. The frontal sinuses appear normally aerated and the sphenoid sinus appears normal. The zygomatic arches appear normal. A lucency is noted surrounding a right lower molar tooth likely reflecting dental, carious, disease. No mandibular fracture is seen. No maxillary fracture or orbital fracture is seen. No displaced nasal fracture is seen no definite facial fracture is apparent. IMPRESSION: Sinus disease. No facial fracture seen PQRS Compliance Statement: One or more of the following individualized dose reduction techniques were utilized for this examination: 1. Automated exposure control 2. Adjustment of the mA and/or kV according to patient size 3. Use of iterative reconstruction technique
--- NOTE | 2016-12-05 13:08 | PDOC ---
PROGRESS NOTES Chief Complaint Chief Complaint Hematemesis, Melena History of Present Illness History of Present Illness Pt was in ICU lying in bed in NAD Denies recent n/v or bleeding Feels improved from admission Reported he drinks about a fifth of whiskey a day but stopped cold turkey a couple days ago Vitals Vitals Vital Signs Date Time Temp Pulse Resp B/P (MAP) Pulse Ox O2 Delivery O2 Flow Rate FiO2 12/05/16 11:47 97.8 74 11 118/60 (79) 98 Room Air 97.8 Physical Exam General: Alert, Oriented X3, No acute distress Heart: Regular rate, No murmurs Lungs: Clear, Other (no wheezing) Abdomen: Normal bowel sounds, No tenderness Extremities: No clubbing, Other (Slight tremor in arms bilat) Skin: No rashes, Other (multiple healing skin abrasions on face and lower extremeties) Labs LABS Laboratory Tests Test 12/04/16 15:50 12/04/16 20:20 Nasal Screen MRSA (PCR) Negative (Negative) White Blood Count 8.5 x10^3/uL (4.0-11.0) Red Blood Count 3.50 x10^6/uL (4.30-5.70) Hemoglobin 10.8 g/dL (13.0-17.5) Hematocrit 31.5 % (39.0-53.0) Mean Corpuscular Volume 90 fL (79-100) Mean Corpuscular Hemoglobin 31 pg (25-35) Mean Corpuscular Hemoglobin Concent 34 g/dL (31-37) Red Cell Distribution Width 13.4 % (11.5-14.5) Platelet Count 113 x10^3/uL (140-400) Review of Systems Review of Systems Denies chest pain Denies SOA Assessment and Plan Assessmemt and Plan Problems Medical Problems: (1) Alcohol withdrawal Status: Acute (2) Upper GI bleed Status: Acute ASSESSMENT: 1. Severe alcohol withdrawals 2. Reported coffee-ground hematemesis - Hgb at 10.8 3. LUQ Pain 4. Substance abuse, alcohol and cocaine. 5. Prior history of alcoholic pancreatitis - U/S earlier this year showed gallblader sludge 6. History of gastroesophageal reflux disease. 7. Dehydration. 8. Fall at home with bruises on face and upper extremities and lower extremities. PLAN: Appreciate GI input - holding EGD unless bleeding occurs again or Hgb continues to fall CT head reviewed - sinus mucosal thickening, no fractures Advance diet Monitor Hgb Continue EtOH withdrawal protocol Continue pain control prn with Fentanyl Continue IV hydration Continue GI and DVT prophylaxis Check labs in am PT/OT Problems: Comment Review of Relevant I have reviewed the following items wali (where applicable) has been applied. Labs Laboratory Tests Test 12/04/16 10:41 12/04/16 11:00 12/04/16 11:25 12/04/16 15:50 White Blood Count 13.9 x10^3/uL (4.0-11.0) Red Blood Count 4.15 x10^6/uL (4.30-5.70) Hemoglobin 12.7 g/dL (13.0-17.5) Hematocrit 36.3 % (39.0-53.0) Mean Corpuscular Volume 87 fL (79-100) Mean Corpuscular Hemoglobin 31 pg (25-35) Mean Corpuscular Hemoglobin Concent 35 g/dL (31-37) Red Cell Distribution Width 13.6 % (11.5-14.5) Platelet Count 171 x10^3/uL (140-400) Neutrophils (%) (Auto) 85 % (31-73) Lymphocytes (%) (Auto) 9 % (24-48) Monocytes (%) (Auto) 6 % (0-9) Eosinophils (%) (Auto) 0 % (0-3) Basophils (%) (Auto) 1 % (0-3) Neutrophils # (Auto) 11.8 x10^3uL (1.8-7.7) Lymphocytes # (Auto) 1.2 x10^3/uL (1.0-4.8) Monocytes # (Auto) 0.9 x10^3/uL (0.0-1.1) Eosinophils # (Auto) 0.0 x10^3/uL (0.0-0.7) Basophils # (Auto) 0.1 x10^3/uL (0.0-0.2) Sodium Level 135 mmol/L (136-145) Potassium Level 4.7 mmol/L (3.5-5.1) Chloride Level 95 mmol/L (98-107) Carbon Dioxide Level 28 mmol/L (21-32) Anion Gap 12 (6-14) Blood Urea Nitrogen 29 mg/dL (8-26) Creatinine 1.1 mg/dL (0.7-1.3) Estimated GFR (Cockcroft-Gault) 74.5 Glucose Level 122 mg/dL (70-99) Calcium Level 8.6 mg/dL (8.5-10.1) Total Bilirubin 1.2 mg/dL (0.2-1.0) Direct Bilirubin 0.3 mg/dL (0.0-0.2) Aspartate Amino Transf (AST/SGOT) 60 U/L (15-37) Alanine Aminotransferase (ALT/SGPT) 55 U/L (16-63) Alkaline Phosphatase 64 U/L (46-116) Total Protein 7.4 g/dL (6.4-8.2) Albumin 3.7 g/dL (3.4-5.0) Lipase 82 U/L (73-393) Ethyl Alcohol Level < 10 mg/dL (0-10) Stool Occult Blood Negative (NEG) Urine Opiates Screen Neg (NEG) Urine Methadone Screen Neg (NEG) Urine Barbiturates Neg (NEG) Urine Phencyclidine Screen Neg (NEG) Urine Amphetamine/Methamphetamine Neg (NEG) Urine Benzodiazepines Screen Neg (NEG) Urine Cocaine Screen Pos (NEG) Urine Cannabinoids Screen Neg (NEG) Urine Ethyl Alcohol Pos (NEG) Nasal Screen MRSA (PCR) Negative (Negative) Test 12/04/16 20:20 White Blood Count 8.5 x10^3/uL (4.0-11.0) Red Blood Count 3.50 x10^6/uL (4.30-5.70) Hemoglobin 10.8 g/dL (13.0-17.5) Hematocrit 31.5 % (39.0-53.0) Mean Corpuscular Volume 90 fL (79-100) Mean Corpuscular Hemoglobin 31 pg (25-35) Mean Corpuscular Hemoglobin Concent 34 g/dL (31-37) Red Cell Distribution Width 13.4 % (11.5-14.5) Platelet Count 113 x10^3/uL (140-400) Laboratory Tests Test 12/04/16 15:50 12/04/16 20:20 Nasal Screen MRSA (PCR) Negative (Negative) White Blood Count 8.5 x10^3/uL (4.0-11.0) Red Blood Count 3.50 x10^6/uL (4.30-5.70) Hemoglobin 10.8 g/dL (13.0-17.5) Hematocrit 31.5 % (39.0-53.0) Mean Corpuscular Volume 90 fL (79-100) Mean Corpuscular Hemoglobin 31 pg (25-35) Mean Corpuscular Hemoglobin Concent 34 g/dL (31-37) Red Cell Distribution Width 13.4 % (11.5-14.5) Platelet Count 113 x10^3/uL (140-400) Medications Current Medications Fentanyl Citrate (Fentanyl 2ml Vial) 50 mcg PRN Q15MIN PRN IV PAIN GREATER THAN 3/10 Last administered on 12/05/16 08:03; Start 12/04/16 at 10:45; Stop at 10:44; Status DC Sodium Chloride 1,000 ml @ 1,000 mls/hr Q1H IV Last administered on 12/04/16 10:51; Start 12/04/16 at 10:32; Stop 12/04/16 at 11:31; Status DC Ondansetron HCl (Zofran) 4 mg 1X ONCE IV Last administered on 12/04/16 10:52 ; Start 12/04/16 at 10:45; Stop 12/04/16 at 10:46; Status DC Pantoprazole Sodium (Protonix Vial) 40 mg 1X ONCE IVP Last administered on 10:56; Start 12/04/16 at 10:45; Stop 12/04/16 at 10:46; Status DC Diazepam (Valium) 20 mg 1X ONCE IV Last administered on 12/04/16 10:52; Start 12/04/16 at 10:45; Stop 12/04/16 at 10:46; Status DC Pantoprazole Sodium 80 mg/ Sodium Chloride 100 ml @ 10 mls/hr 1X ONCE IV Last administered on 12/04/16 11:21; Start 12/04/16 at 10:45; Stop 12/04/16 at 20:44; Status DC Diazepam (Valium) 10 mg 1X ONCE IV Last administered on 12/04/16 12:26; Start 12/04/16 at 12:30; Stop 12/04/16 at 12:31; Status DC Ondansetron HCl (Zofran) 4 mg PRN Q8HRS PRN IV NAUSEA/VOMITING Last administered on 12/04/16 21:50; Start 12/04/16 at 12:30; Stop 12/05/16 at 12:29 ; Status DC Fentanyl Citrate (Fentanyl 2ml Vial) 50 mcg PRN Q2HR PRN IV PAIN Last administered on 12/05/16 11:00; Start 12/04/16 at 12:30; Stop 12/05/16 at 12:29 ; Status DC Acetaminophen (Tylenol) 650 mg PRN Q4HRS PRN PO FEVER; Start 12/04/16 at 12:30 ; Stop 12/05/16 at 12:29; Status DC Potassium Chloride/Dextrose/ Sod Cl 1,000 ml @ 100 mls/hr 1X ONCE IV Last administered on 12/04/16 13:04; Start 12/04/16 at 12:30; Stop 12/04/16 at 22:29 ; Status DC Multivitamins (Thera M Plus) 1 tab 1X ONCE PO Last administered on 12/04/16 13:04; Start 12/04/16 at 12:30; Stop 12/04/16 at 12:36; Status DC Thiamine Mononitrate (Vitamin B-1) 100 mg 1X ONCE PO Last administered on 12/04 13:05; Start 12/04/16 at 12:30; Stop 12/04/16 at 12:36; Status DC Folic Acid (Folic Acid) 1 mg 1X ONCE PO Last administered on 12/04/16 13:04; Start 12/04/16 at 12:30; Stop 12/04/16 at 12:36; Status DC Diazepam (Valium) 10 mg 1X ONCE IV Last administered on 12/04/16 13:04; Start 12/04/16 at 12:45; Stop 12/04/16 at 12:46; Status DC Lorazepam (Ativan) 4 mg PRN Q1HR PRN PO For CIWA 8-14; Start 12/04/16 at 13:15 ; Stop 12/04/16 at 13:37; Status DC Lorazepam (Ativan) 8 mg PRN Q1HR PRN PO For CIWA 15 or greater; Start 12/04/16 at 13:15; Stop 12/04/16 at 13:37; Status DC Diazepam (Valium) 10 mg PRN Q5MIN PRN IV COMM; Start 12/04/16 at 13:15; Stop at 12:39; Status DC Lorazepam (Ativan) 2 mg PRN Q1HR PRN IV For CIWA 8-14 Last administered on 12/05 07:26; Start 12/04/16 at 13:45 Lorazepam (Ativan) 4 mg PRN Q1HR PRN IV For CIWA 15 or greater Last administered on 12/05/16 13:03; Start 12/04/16 at 13:45 Multivitamins 10 ml/Folic Acid 1 mg/Thiamine HCl 100 mg/Dextrose/ Sodium Chloride 1,011.2 ml @ 100.009 mls/hr QHS IV Last administered on 12/04/16 21: 37; Start 12/04/16 at 21:00 Pantoprazole Sodium 80 mg/ Sodium Chloride 100 ml @ 10 mls/hr Q10H IV Last administered on 12/05/16 06:25; Start 12/05/16 at 07:00 Active Scripts Active Vitamin B-1 (Thiamine Hcl) 100 Mg Tablet 100 Mg PO DAILY Ativan (Lorazepam) 1 Mg Tablet 1 Mg PO TID Folic Acid 1 Mg Tablet 1 Mg PO DAILY Colcrys (Colchicine) 0.6 Mg Tablet 0.6 Mg PO DAILY PRN Allopurinol 300 Mg Tablet 300 Mg PO DAILY Zofran Odt (Ondansetron) 4 Mg Tab.rapdis 1 Tab SL Q8HRS Ativan (Lorazepam) 0.5 Mg Tablet 0.5 Mg PO TID Zofran Odt (Ondansetron) 4 Mg Tab.rapdis 1 Tab SL PRN Q8HRS PRN Hydrocodone-Apap 5-325 (Hydrocodone Bit/Acetaminophen) 1 Each Tablet 1 Tab PO PRN Q6HRS PRN Reported Symbicort 160-4.5 Mcg Inhaler (Budesonide/Formoterol Fumarate) 10.2 Gm Hfa.aer.ad 2 Puff IH BID Prilosec Otc (Omeprazole Magnesium) 20 Mg Tablet.dr 1 Tab PO DAILY Theophylline (Theophylline Anhydrous) 400 Mg Tablet.er 300 Mg PO BID Albuterol Sulfate Neb Soln (Albuterol Sulfate) 1.25 Mg/3 Ml Vial.neb 1.25 Mg IH Vitals/I & O Vital Sign - Last 24 Hours 12/04/16 12/04/16 12/04/16 12/04/16 13:12 13:19 13:45 14:00 Temp 97.9 97.9 Pulse 108 102 96 Resp 16 20 20 16 B/P (MAP) 141/81 (101) 143/84 (103) 144/81 (102) Pulse Ox 98 97 96 98 O2 Delivery Room Air Room Air Room Air Room Air 12/04/16 12/04/16 12/04/16 12/04/16 14:15 14:18 14:30 15:00 Pulse 96 96 94 Resp 18 20 15 15 B/P (MAP) 122/68 (86) 138/81 (100) 133/72 (92) Pulse Ox 96 97 94 99 O2 Delivery Room Air Room Air Room Air Room Air 12/04/16 12/04/16 12/04/16 12/04/16 15:08 15:30 16:00 17:00 Pulse 92 92 88 Resp 15 12 16 B/P (MAP) 119/66 (83) 148/74 (98) 117/65 (82) Pulse Ox 97 98 98 O2 Delivery Room Air Room Air Room Air Room Air 12/04/16 12/04/16 12/04/16 12/04/16 17:55 18:00 19:00 20:00 Pulse 87 91 Resp 18 20 20 B/P (MAP) 125/75 (92) 124/66 (85) Pulse Ox 99 95 96 O2 Delivery Room Air Room Air Room Air Room Air 12/04/16 12/04/16 12/04/16 12/04/16 20:00 21:00 21:33 22:00 Temp 97.6 97.6 Pulse 88 84 92 Resp 16 16 16 17 B/P (MAP) 119/63 (81) 111/63 (79) 119/71 (87) Pulse Ox 100 97 98 96 O2 Delivery Room Air Room Air Room Air Room Air 12/04/16 12/05/16 12/05/16 12/05/16 23:00 00:01 00:08 01:00 Temp 98.1 98.1 Pulse 87 81 82 Resp 18 15 18 B/P (MAP) 105/71 (82) 103/59 (74) 116/60 (78) Pulse Ox 95 97 95 O2 Delivery Room Air Room Air Room Air Room Air 12/05/16 12/05/16 12/05/16 12/05/16 02:00 03:19 03:45 04:04 Temp 97.7 97.7 Pulse 82 78 78 Resp 15 19 12 B/P (MAP) 119/66 (83) 120/57 (78) 124/65 (84) Pulse Ox 96 96 95 O2 Delivery Room Air Room Air Room Air Room Air 12/05/16 12/05/16 12/05/16 12/05/16 04:19 05:16 06:10 07:00 Pulse 78 77 75 Resp 19 17 14 B/P (MAP) 109/60 (76) 120/72 (88) 107/65 (79) Pulse Ox 96 96 97 O2 Delivery Room Air Room Air Room Air Room Air 12/05/16 12/05/16 12/05/16 12/05/16 08:00 08:00 08:03 08:40 Temp 98.0 98.0 Pulse 91 Resp 20 12 12 B/P (MAP) 110/68 (82) Pulse Ox 99 99 100 O2 Delivery Room Air Room Air Room Air Room Air 12/05/16 12/05/16 12/05/16 12/05/16 09:00 10:00 11:00 11:00 Pulse 70 70 67 Resp 15 14 12 12 B/P (MAP) 117/70 (86) 111/50 (70) 107/53 (71) Pulse Ox 98 98 100 97 O2 Delivery Room Air Room Air Room Air Room Air 12/05/16 12/05/16 11:30 11:47 Temp 97.8 97.8 Pulse 74 Resp 12 11 B/P (MAP) 118/60 (79) Pulse Ox 97 98 O2 Delivery Room Air Room Air Intake and Output 12/04/16 12/04/16 12/05/16 15:00 23:00 07:00 Intake Total 1000 ml 1036 ml 750.43 ml Output Total 750 ml 0 ml Balance 1000 ml 286 ml 750.43 ml Nutrition Consultation Dietary Evaluation: Recommendations by RD: Increase Calorie Intake, Protein supplementation Comments: Add boost breeze TID while on clear liquids (250 calories/9 grams protein per serving) Expected Outcomes/Goals: diet advancement diet tolerance meet 75% estimated nutrition needs 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
[2016-12-05] MEDS: MULTIVIT INFUSN,ADULT 4,VIT K 10 ML, FOLIC ACID 1 MG, THIAMINE 100 MG in IV DEXTROSE 5 ... IV SCH (21:00)
[2016-12-06] MEDS: PANTOPRAZOLE SODIUM IV 80 MG in IV NORMAL SALINE 100ML 100 ML IV SCH (03:00)
[2016-12-06 05:59] LABS: BASO % 1 % (0-3); EOS % 4 % (0-3); HEMATOCRIT 27.1 % (39.0-53.0); HEMOGLOBIN 9.2 g/dL (13.0-17.5); LYMPH # 1.3 x10^3/uL (1.0-4.8); LYMPH % 24 % (24-48); MEAN CORPUSCULAR HEMOGLOBIN 31 pg (25-35); MEAN CORPUSCULAR HGB CONC 34 g/dL (31-37); MEAN CORPUSCULAR VOLUME 91 fL (79-100); MONO % 7 % (0-9); NEUT % 65 % (31-73); PLATELET COUNT 99 x10^3/uL (140-400); RED BLOOD COUNT 2.98 x10^6/uL (4.30-5.70); RED CELL DISTRIBUTION WIDTH 13.7 % (11.5-14.5); WHITE BLOOD COUNT 5.3 x10^3/uL (4.0-11.0)
[2016-12-06 06:18] LABS: CALCIUM 8.1 mg/dL (8.5-10.1); GFR 83.2; POTASSIUM 3.8 mmol/L (3.5-5.1)
[2016-12-06 07:00] VITALS: BP 138/73
[2016-12-06] MEDS ORDERED: ACETAMINOPHEN 325 MG TABLET. PO PRN (10:00)
[2016-12-06] MEDS ORDERED: DOCUSATE SODIUM 100 MG CAPSULE. PO PRN (10:00)
[2016-12-06] MEDS ORDERED: hydrALAZINE 20 MG/ML VIAL. IVP PRN (10:00)
[2016-12-06] MEDS ORDERED: ONDANSETRON PF 4 MG/2 ML VIAL. IV PRN (10:00)
[2016-12-06 10:52] VITALS: BP 137/71
--- NOTE | 2016-12-06 11:56 | PDOC ---
PROGRESS NOTES Chief Complaint Chief Complaint Hematemesis, Melena 1. Severe alcohol withdrawals 2. Reported coffee-ground hematemesis - Hgb at 10.8 3. LUQ Pain 4. Substance abuse, alcohol and cocaine. 5. Prior history of alcoholic pancreatitis - U/S earlier this year showed gallblader sludge 6. History of gastroesophageal reflux disease. 7. Dehydration. 8. Fall at home with bruises on face and upper extremities and lower extremities. 9. anemia 2/2 gib , alcoholic hepatitis 10. thrombocytopenia, 2/2 alcoholic hepatitis PLAN: Appreciate GI input - holding EGD unless bleeding occurs again or Hgb continues to fall CT head reviewed - sinus mucosal thickening, no fractures Advance diet to full liquid today, may do gi soft later today or tmr if cont no N/V Monitor Hgb Continue EtOH withdrawal protocol Continue pain control prn with Fentanyl Continue IV hydration Continue GI and DVT prophylaxis Check labs in am PT/OT dc protonix drip as per GI, 40mg daily now add librium tid for DT prevention consider dc tmr History of Present Illness History of Present Illness pt has some agitation, finger tremor, able to walk independently with PT hb cont dropping, LIKELY 2/2 ivf dilutional Vitals Vitals Vital Signs Date Time Temp Pulse Resp B/P (MAP) Pulse Ox O2 Delivery O2 Flow Rate FiO2 12/06/16 10:52 97.8 93 20 137/71 (93) 98 Room Air 97.8 Physical Exam General: Alert, Oriented X3, No acute distress Heart: Regular rate, No murmurs Lungs: Clear, Other (no wheezing) Abdomen: Normal bowel sounds, No tenderness Extremities: No clubbing, Other (Slight tremor in arms bilat) Skin: No rashes, Other (multiple healing skin abrasions on face and lower extremeties) Labs LABS Laboratory Tests Test 12/06/16 05:30 White Blood Count 5.3 x10^3/uL (4.0-11.0) Red Blood Count 2.98 x10^6/uL (4.30-5.70) Hemoglobin 9.2 g/dL (13.0-17.5) Hematocrit 27.1 % (39.0-53.0) Mean Corpuscular Volume 91 fL (79-100) Mean Corpuscular Hemoglobin 31 pg (25-35) Mean Corpuscular Hemoglobin Concent 34 g/dL (31-37) Red Cell Distribution Width 13.7 % (11.5-14.5) Platelet Count 99 x10^3/uL (140-400) Neutrophils (%) (Auto) 65 % (31-73) Lymphocytes (%) (Auto) 24 % (24-48) Monocytes (%) (Auto) 7 % (0-9) Eosinophils (%) (Auto) 4 % (0-3) Basophils (%) (Auto) 1 % (0-3) Neutrophils # (Auto) 3.4 x10^3uL (1.8-7.7) Lymphocytes # (Auto) 1.3 x10^3/uL (1.0-4.8) Monocytes # (Auto) 0.4 x10^3/uL (0.0-1.1) Eosinophils # (Auto) 0.2 x10^3/uL (0.0-0.7) Basophils # (Auto) 0.0 x10^3/uL (0.0-0.2) Sodium Level 140 mmol/L (136-145) Potassium Level 3.8 mmol/L (3.5-5.1) Chloride Level 106 mmol/L (98-107) Carbon Dioxide Level 29 mmol/L (21-32) Anion Gap 5 (6-14) Blood Urea Nitrogen 10 mg/dL (8-26) Creatinine 1.0 mg/dL (0.7-1.3) Estimated GFR (Cockcroft-Gault) 83.2 Glucose Level 104 mg/dL (70-99) Calcium Level 8.1 mg/dL (8.5-10.1) Review of Systems Review of Systems no fever ,chills, sob or chest pain Assessment and Plan Assessmemt and Plan Problems Medical Problems: (1) Alcohol withdrawal Status: Acute (2) Upper GI bleed Status: Acute Problems: Comment Review of Relevant I have reviewed the following items wali (where applicable) has been applied. Labs Laboratory Tests Test 12/04/16 15:50 12/04/16 20:20 12/06/16 05:30 Nasal Screen MRSA (PCR) Negative (Negative) White Blood Count 8.5 x10^3/uL (4.0-11.0) 5.3 x10^3/uL (4.0-11.0) Red Blood Count 3.50 x10^6/uL (4.30-5.70) 2.98 x10^6/uL (4.30-5.70) Hemoglobin 10.8 g/dL (13.0-17.5) 9.2 g/dL (13.0-17.5) Hematocrit 31.5 % (39.0-53.0) 27.1 % (39.0-53.0) Mean Corpuscular Volume 90 fL (79-100) 91 fL (79-100) Mean Corpuscular Hemoglobin 31 pg (25-35) 31 pg (25-35) Mean Corpuscular Hemoglobin Concent 34 g/dL (31-37) 34 g/dL (31-37) Red Cell Distribution Width 13.4 % (11.5-14.5) 13.7 % (11.5-14.5) Platelet Count 113 x10^3/uL (140-400) 99 x10^3/uL (140-400) Neutrophils (%) (Auto) 65 % (31-73) Lymphocytes (%) (Auto) 24 % (24-48) Monocytes (%) (Auto) 7 % (0-9) Eosinophils (%) (Auto) 4 % (0-3) Basophils (%) (Auto) 1 % (0-3) Neutrophils # (Auto) 3.4 x10^3uL (1.8-7.7) Lymphocytes # (Auto) 1.3 x10^3/uL (1.0-4.8) Monocytes # (Auto) 0.4 x10^3/uL (0.0-1.1) Eosinophils # (Auto) 0.2 x10^3/uL (0.0-0.7) Basophils # (Auto) 0.0 x10^3/uL (0.0-0.2) Sodium Level 140 mmol/L (136-145) Potassium Level 3.8 mmol/L (3.5-5.1) Chloride Level 106 mmol/L (98-107) Carbon Dioxide Level 29 mmol/L (21-32) Anion Gap 5 (6-14) Blood Urea Nitrogen 10 mg/dL (8-26) Creatinine 1.0 mg/dL (0.7-1.3) Estimated GFR (Cockcroft-Gault) 83.2 Glucose Level 104 mg/dL (70-99) Calcium Level 8.1 mg/dL (8.5-10.1) Laboratory Tests Test 12/06/16 05:30 White Blood Count 5.3 x10^3/uL (4.0-11.0) Red Blood Count 2.98 x10^6/uL (4.30-5.70) Hemoglobin 9.2 g/dL (13.0-17.5) Hematocrit 27.1 % (39.0-53.0) Mean Corpuscular Volume 91 fL (79-100) Mean Corpuscular Hemoglobin 31 pg (25-35) Mean Corpuscular Hemoglobin Concent 34 g/dL (31-37) Red Cell Distribution Width 13.7 % (11.5-14.5) Platelet Count 99 x10^3/uL (140-400) Neutrophils (%) (Auto) 65 % (31-73) Lymphocytes (%) (Auto) 24 % (24-48) Monocytes (%) (Auto) 7 % (0-9) Eosinophils (%) (Auto) 4 % (0-3) Basophils (%) (Auto) 1 % (0-3) Neutrophils # (Auto) 3.4 x10^3uL (1.8-7.7) Lymphocytes # (Auto) 1.3 x10^3/uL (1.0-4.8) Monocytes # (Auto) 0.4 x10^3/uL (0.0-1.1) Eosinophils # (Auto) 0.2 x10^3/uL (0.0-0.7) Basophils # (Auto) 0.0 x10^3/uL (0.0-0.2) Sodium Level 140 mmol/L (136-145) Potassium Level 3.8 mmol/L (3.5-5.1) Chloride Level 106 mmol/L (98-107) Carbon Dioxide Level 29 mmol/L (21-32) Anion Gap 5 (6-14) Blood Urea Nitrogen 10 mg/dL (8-26) Creatinine 1.0 mg/dL (0.7-1.3) Estimated GFR (Cockcroft-Gault) 83.2 Glucose Level 104 mg/dL (70-99) Calcium Level 8.1 mg/dL (8.5-10.1) Medications Current Medications Fentanyl Citrate (Fentanyl 2ml Vial) 50 mcg PRN Q15MIN PRN IV PAIN GREATER THAN 3/10 Last administered on 12/05/16 08:03; Start 12/04/16 at 10:45; Stop at 10:44; Status DC Sodium Chloride 1,000 ml @ 1,000 mls/hr Q1H IV Last administered on 12/04/16 10:51; Start 12/04/16 at 10:32; Stop 12/04/16 at 11:31; Status DC Ondansetron HCl (Zofran) 4 mg 1X ONCE IV Last administered on 12/04/16 10:52 ; Start 12/04/16 at 10:45; Stop 12/04/16 at 10:46; Status DC Pantoprazole Sodium (Protonix Vial) 40 mg 1X ONCE IVP Last administered on 10:56; Start 12/04/16 at 10:45; Stop 12/04/16 at 10:46; Status DC Diazepam (Valium) 20 mg 1X ONCE IV Last administered on 12/04/16 10:52; Start 12/04/16 at 10:45; Stop 12/04/16 at 10:46; Status DC Pantoprazole Sodium 80 mg/ Sodium Chloride 100 ml @ 10 mls/hr 1X ONCE IV Last administered on 12/04/16 11:21; Start 12/04/16 at 10:45; Stop 12/04/16 at 20:44; Status DC Diazepam (Valium) 10 mg 1X ONCE IV Last administered on 12/04/16 12:26; Start 12/04/16 at 12:30; Stop 12/04/16 at 12:31; Status DC Ondansetron HCl (Zofran) 4 mg PRN Q8HRS PRN IV NAUSEA/VOMITING Last administered on 12/04/16 21:50; Start 12/04/16 at 12:30; Stop 12/05/16 at 12:29 ; Status DC Fentanyl Citrate (Fentanyl 2ml Vial) 50 mcg PRN Q2HR PRN IV PAIN Last administered on 12/05/16 11:00; Start 12/04/16 at 12:30; Stop 12/05/16 at 12:29 ; Status DC Acetaminophen (Tylenol) 650 mg PRN Q4HRS PRN PO FEVER; Start 12/04/16 at 12:30 ; Stop 12/05/16 at 12:29; Status DC Potassium Chloride/Dextrose/ Sod Cl 1,000 ml @ 100 mls/hr 1X ONCE IV Last administered on 12/04/16 13:04; Start 12/04/16 at 12:30; Stop 12/04/16 at 22:29 ; Status DC Multivitamins (Thera M Plus) 1 tab 1X ONCE PO Last administered on 12/04/16 13:04; Start 12/04/16 at 12:30; Stop 12/04/16 at 12:36; Status DC Thiamine Mononitrate (Vitamin B-1) 100 mg 1X ONCE PO Last administered on 12/04 13:05; Start 12/04/16 at 12:30; Stop 12/04/16 at 12:36; Status DC Folic Acid (Folic Acid) 1 mg 1X ONCE PO Last administered on 12/04/16 13:04; Start 12/04/16 at 12:30; Stop 12/04/16 at 12:36; Status DC Diazepam (Valium) 10 mg 1X ONCE IV Last administered on 12/04/16 13:04; Start 12/04/16 at 12:45; Stop 12/04/16 at 12:46; Status DC Lorazepam (Ativan) 4 mg PRN Q1HR PRN PO For CIWA 8-14; Start 12/04/16 at 13:15 ; Stop 12/04/16 at 13:37; Status DC Lorazepam (Ativan) 8 mg PRN Q1HR PRN PO For CIWA 15 or greater; Start 12/04/16 at 13:15; Stop 12/04/16 at 13:37; Status DC Diazepam (Valium) 10 mg PRN Q5MIN PRN IV COMM; Start 12/04/16 at 13:15; Stop at 12:39; Status DC Lorazepam (Ativan) 2 mg PRN Q1HR PRN IV For CIWA 8-14 Last administered on 12/06 06:19; Start 12/04/16 at 13:45 Lorazepam (Ativan) 4 mg PRN Q1HR PRN IV For CIWA 15 or greater Last administered on 12/06/16 05:07; Start 12/04/16 at 13:45 Multivitamins 10 ml/Folic Acid 1 mg/Thiamine HCl 100 mg/Dextrose/ Sodium Chloride 1,011.2 ml @ 100.009 mls/hr QHS IV Last administered on 12/05/16 21: 00; Start 12/04/16 at 21:00 Pantoprazole Sodium 80 mg/ Sodium Chloride 100 ml @ 10 mls/hr Q10H IV Last administered on 12/06/16 03:00; Start 12/05/16 at 07:00; Stop 12/06/16 at 09:50 ; Status DC Pantoprazole Sodium (Protonix) 40 mg DAILYAC PO ; Start 12/07/16 at 07:30 Acetaminophen (Tylenol) 650 mg PRN Q6HRS PRN PO FEVER; Start 12/06/16 at 10:00 Ondansetron HCl (Zofran) 4 mg PRN Q6HRS PRN IV NAUSEA/VOMITING; Start 12/06/16 at 10:00 Morphine Sulfate 2 mg PRN Q2HR PRN IV PAIN; Start 12/06/16 at 10:00 Tramadol HCl (Ultram) 50 mg PRN Q6HRS PRN PO PAIN; Start 12/06/16 at 10:00 Hydralazine HCl (Apresoline) 10 mg PRN Q4HRS PRN IVP ELEVATED BP, SEE COMMENTS ; Start 12/06/16 at 10:00 Docusate Sodium (Colace) 100 mg PRN DAILY PRN PO CONSTIPATION; Start 12/06/16 at 10:00 Chlordiazepoxide (Librium) 50 mg TID PO ; Start 12/06/16 at 10:00 Active Scripts Active Vitamin B-1 (Thiamine Hcl) 100 Mg Tablet 100 Mg PO DAILY Ativan (Lorazepam) 1 Mg Tablet 1 Mg PO TID Folic Acid 1 Mg Tablet 1 Mg PO DAILY Colcrys (Colchicine) 0.6 Mg Tablet 0.6 Mg PO DAILY PRN Allopurinol 300 Mg Tablet 300 Mg PO DAILY Zofran Odt (Ondansetron) 4 Mg Tab.rapdis 1 Tab SL Q8HRS Ativan (Lorazepam) 0.5 Mg Tablet 0.5 Mg PO TID Zofran Odt (Ondansetron) 4 Mg Tab.rapdis 1 Tab SL PRN Q8HRS PRN Hydrocodone-Apap 5-325 (Hydrocodone Bit/Acetaminophen) 1 Each Tablet 1 Tab PO PRN Q6HRS PRN Reported Symbicort 160-4.5 Mcg Inhaler (Budesonide/Formoterol Fumarate) 10.2 Gm Hfa.aer.ad 2 Puff IH BID Prilosec Otc (Omeprazole Magnesium) 20 Mg Tablet.dr 1 Tab PO DAILY Theophylline (Theophylline Anhydrous) 400 Mg Tablet.er 300 Mg PO BID Albuterol Sulfate Neb Soln (Albuterol Sulfate) 1.25 Mg/3 Ml Vial.neb 1.25 Mg IH Vitals/I & O Vital Sign - Last 24 Hours 12/05/16 12/05/16 12/05/16 12/06/16 19:00 20:00 23:09 07:00 Temp 98.5 98.3 97.8 98.5 98.3 97.8 Pulse 93 75 94 Resp 15 16 20 B/P (MAP) 120/84 (96) 118/74 (89) 138/73 (94) Pulse Ox 98 96 98 O2 Delivery Room Air Room Air Room Air Room Air 12/06/16 10:52 Temp 97.8 97.8 Pulse 93 Resp 20 B/P (MAP) 137/71 (93) Pulse Ox 98 O2 Delivery Room Air Intake and Output 12/05/16 12/05/16 12/06/16 15:00 23:00 07:00 Intake Total 900 ml 360 ml Output Total 400 ml 500 ml Balance 500 ml -140 ml Nutrition Consultation Dietary Evaluation: Recommendations by RD: Increase Calorie Intake, Protein supplementation Comments: Add boost breeze TID while on clear liquids (250 calories/9 grams protein per serving) Expected Outcomes/Goals: diet advancement diet tolerance meet 75% estimated nutrition needs Malnutrition Findings: Reduced Water Filterer Helper Strength: N/A Reduced Water Filterer Helper Strength (Non-Sev: N/A Malnutrition related to morbid: No Weight Status: Obese BIGG NICHOLE MD December 06, 2016 11:56
[2016-12-06] MEDS: chlordiazePOXIDE HCL 25 MG CAPSULE PO SCH ×3 (13:22→20:06)
--- NOTE | 2016-12-06 14:08 | PDOC ---
Subjective: Subjective: Feeling better. No n/v or bleeding. Wants to eat more. Objective: Vital Signs: Vital Signs Date Time Temp Pulse Resp B/P (MAP) Pulse Ox O2 Delivery O2 Flow Rate FiO2 12/06/16 10:52 97.8 93 20 137/71 (93) 98 Room Air 97.8 Labs: Laboratory Tests Test 12/06/16 05:30 White Blood Count 5.3 x10^3/uL Red Blood Count 2.98 x10^6/uL Hemoglobin 9.2 g/dL Hematocrit 27.1 % Mean Corpuscular Volume 91 fL Mean Corpuscular Hemoglobin 31 pg Mean Corpuscular Hemoglobin Concent 34 g/dL Red Cell Distribution Width 13.7 % Platelet Count 99 x10^3/uL Neutrophils (%) (Auto) 65 % Lymphocytes (%) (Auto) 24 % Monocytes (%) (Auto) 7 % Eosinophils (%) (Auto) 4 % Basophils (%) (Auto) 1 % Neutrophils # (Auto) 3.4 x10^3uL Lymphocytes # (Auto) 1.3 x10^3/uL Monocytes # (Auto) 0.4 x10^3/uL Eosinophils # (Auto) 0.2 x10^3/uL Basophils # (Auto) 0.0 x10^3/uL Sodium Level 140 mmol/L Potassium Level 3.8 mmol/L Chloride Level 106 mmol/L Carbon Dioxide Level 29 mmol/L Anion Gap 5 Blood Urea Nitrogen 10 mg/dL Creatinine 1.0 mg/dL Estimated GFR (Cockcroft-Gault) 83.2 Glucose Level 104 mg/dL Calcium Level 8.1 mg/dL PE: GEN: NAD, was asleep, less tremulous LUNGS: CTAB HEART: RRR ABD: left-sided discomfort NEURO/PSYCH: A & O 3 A/P: Alcohol withdrawal, substance abuse Hematemesis/coffee-ground emesis, dark stools - no recurrence Hgb from 12.7 to 10.6 to 9.2, BUN WNL, hemoccult neg -on PPI Abd discomfort (left-sided) H/o pancreatitis -2/2 alcohol, gallbladder sludge on abd US earlier this year -- Continue PPI, ADAT (orders already in). MESSI GORE December 06, 2016 14:08
[2016-12-06 15:08] VITALS: BP 140/72
[2016-12-06] MEDS: PANTOPRAZOLE 40 MG TABLET.DR. PO SCH (15:55)
[2016-12-06 19:59] VITALS: BP 135/79
[2016-12-06] MEDS: MULTIVIT INFUSN,ADULT 4,VIT K 10 ML, FOLIC ACID 1 MG, THIAMINE 100 MG in IV DEXTROSE 5 ... IV SCH (20:06)
[2016-12-06] MEDS: traMADol 50 MG TABLET PO PRN (20:35)
[2016-12-06] MEDS: MORPHINE SULFATE 2 MG/ML DISP.SYRIN. IV PRN ×2 (20:35→22:45)
[2016-12-06 23:59] VITALS: BP 141/96
[2016-12-07] MEDS: MORPHINE SULFATE 2 MG/ML DISP.SYRIN. IV PRN ×3 (01:25→08:40)
[2016-12-07] MEDS: traMADol 50 MG TABLET PO PRN (03:19)
[2016-12-07 05:12] LABS: BASO % 1 % (0-3); EOS % 4 % (0-3); HEMATOCRIT 25.5 % (39.0-53.0); HEMOGLOBIN 8.8 g/dL (13.0-17.5); LYMPH # 1.5 x10^3/uL (1.0-4.8); LYMPH % 31 % (24-48); MEAN CORPUSCULAR HEMOGLOBIN 31 pg (25-35); MEAN CORPUSCULAR HGB CONC 34 g/dL (31-37); MEAN CORPUSCULAR VOLUME 91 fL (79-100); MONO % 7 % (0-9); NEUT % 57 % (31-73); PLATELET COUNT 115 x10^3/uL (140-400); RED BLOOD COUNT 2.82 x10^6/uL (4.30-5.70); RED CELL DISTRIBUTION WIDTH 13.9 % (11.5-14.5); WHITE BLOOD COUNT 4.7 x10^3/uL (4.0-11.0)
[2016-12-07 05:35] LABS: CALCIUM 8.3 mg/dL (8.5-10.1); CREATININE 0.9 mg/dL (0.7-1.3); GFR 93.9
[2016-12-07] MEDS ORDERED: PANTOPRAZOLE 40 MG TABLET.DR. PO SCH (07:30)
[2016-12-07 07:59] VITALS: BP 129/88
[2016-12-07] MEDS: PANTOPRAZOLE 40 MG TABLET.DR. PO SCH (08:00)
[2016-12-07] MEDS: chlordiazePOXIDE HCL 25 MG CAPSULE PO SCH (08:39)
[2016-12-07] MEDS ORDERED: LORA0.5T96 PO (11:10)
[2016-12-07] MEDS ORDERED: THIA100T4 PO (11:10)
[2016-12-07] MEDS ORDERED: FOLI1TAB16 PO (11:10)
[2016-12-07] MEDS ORDERED: PANT40TA5 PO (11:10)
[2016-12-07] MEDS ORDERED: LORazepam 0.5 MG TABLET PO PRN (11:15)
[2016-12-07 12:21] VITALS: BP 123/92
--- NOTE | 2016-12-07 13:27 | PDOC3 ---
Discharge Summary [facility] Date of Admission: December 04, 2016 Discharge Date: December 07, 2016 Admitting Diagnosis 1. Severe alcohol withdrawals 2. Reported coffee-ground hematemesis - Hgb at 10.8 3. LUQ Pain 4. Substance abuse, alcohol and cocaine. 5. Prior history of alcoholic pancreatitis - U/S earlier this year showed gallbladder sludge 6. History of gastroesophageal reflux disease. 7. Dehydration. 8. Fall at home with bruises on face and upper extremities and lower extremities. 9. anemia 2/2 gib , alcoholic hepatitis, bone marrow suppression with heavy drinking 10. thrombocytopenia, 2/2 alcoholic hepatitis, Problems: Final Diagnosis CONSULTS gi Brief Hospital Course Mr. Osborn is a 41 old M, lives with his , heavy drinker, comes for alcohol withdrawl with coffee ground hematemesis. Hb stable, slowly dropping ,likely 2/2 ivf dilutional effect. no GI INTERVention done. no more N/V or hematemesis on 2nd day, tolerate food well. dc home with ativan, protonix bid for 2 weeks. dc time 35min. General: Alert, Oriented X3, No acute distress Heart: Regular rate, No murmurs Lungs: Clear, Other (no wheezing) Abdomen: Normal bowel sounds, No tenderness Extremities: No clubbing, Other (Slight tremor in arms bilat) Skin: No rashes, Other (multiple healing skin abrasions on face and lower extremeties) Patient History: FH: bladder cancer 33 FATHER Unknown Problems: Disposition home CONDITION AT DISCHARGE: Improved Diet gi soft Scheduled Allopurinol (Allopurinol), 300 MG PO DAILY Budesonide/Formoterol Fumarate (Symbicort 160-4.5 Mcg Inhaler), 2 PUFF IH BID, ( Reported) Folic Acid (Folic Acid), 1 MG PO DAILY Lorazepam (Ativan), 0.5 MG PO TID Omeprazole Magnesium (Prilosec Otc), 1 TAB PO DAILY, (Reported) Pantoprazole Sodium (Pantoprazole Sodium), 40 MG PO BIDAC Theophylline Anhydrous (Theophylline), 300 MG PO BID, (Reported) Thiamine Hcl (Vitamin B-1), 100 MG PO DAILY Scheduled PRN Colchicine (Colcrys), 0.6 MG PO DAILY PRN for gout pain Hydrocodone Bit/Acetaminophen (Hydrocodone-Apap 5-325 ), 1 TAB PO PRN Q6HRS PRN for PAIN Lorazepam (Ativan), 0.5 MG PO PRN Q8HRS PRN for ANXIETY / AGITATION Ondansetron (Zofran Odt), 1 TAB SL PRN Q8HRS PRN for NAUSEA Miscellaneous Medications Albuterol Sulfate (Albuterol Sulfate Neb Soln), 1.25 MG IH, (Reported) Discontinued Medications Lorazepam (Ativan), 1 MG PO TID Ondansetron (Zofran Odt), 1 TAB SL Q8HRS Follow Up pcp in 2 weeks BIGG NICHOLE MD December 07, 2016 13:27
[2016-12-08] MEDS ORDERED: FOLIC ACID 1 MG TABLET. PO SCH (09:00)
[2016-12-08] MEDS ORDERED: THIAMINE 100 MG TABLET. PO SCH (09:00)
== END 2016-12-07 13:22 | disposition home or self-care (01) | DRG 433 ==
LOC: ER 10:10 → 1 WEST ICU 12:30 → 5 SOUTH 12-05 12:38
PROVIDERS: ADMIT Internal Medicine; ATTEND Internal Medicine
DX: K70.10 Alcoholic hepatitis without ascites (principal); F10.239 Alcohol dependence with withdrawal, unspecified; D62 Acute posthemorrhagic anemia; F15.10 Other stimulant abuse, uncomplicated; D69.6 Thrombocytopenia, unspecified; E86.0 Dehydration; F14.10 Cocaine abuse, uncomplicated; F41.9 Anxiety disorder, unspecified; I10 Essential (primary) hypertension; J45.909 Unspecified asthma, uncomplicated; K21.9 Gastro-esophageal reflux disease without esophagitis; M10.9 Gout, unspecified; R29.6 Repeated falls; W18.39XA Other fall on same level, initial encounter; S00.83XA Contusion of other part of head, initial encounter; W19.XXXA Unspecified fall, initial encounter; Z80.52 Family history of malignant neoplasm of bladder; Z82.49 Family history of ischemic heart disease and other diseases of the circulatory system; Z85.51 Personal history of malignant neoplasm of bladder; Y93.89 Activity, other specified; Y92.038 Other place in apartment as the place of occurrence of the external cause; Y99.8 Other external cause status
CPT/HCPCS: 36415; 70486; 80048; 80076; 82274; 83690; 85027; 87641; 96361; 96365; 96366; 96375; 96376; C9113; G0480; G0481; J2060; J2270; J2405; J3010; J3360; J7030; 97116; 99285-25

== ENCOUNTER 2017-03-28 00:02 | Emergency (ER) | payer SELFPAY ==
[~2017-03-28 00:02] MED LIST changes: -HYDR-2666 PO; +HYDR-2758 PO; +LISI40TA PO; +PANT40TA5 PO
[2017-03-28 00:45] LABS: BASO # 0.2 x10^3/uL (0.0-0.2); BASO % 3 % (0-3); EOS % 4 % (0-3); HEMATOCRIT 39.5 % (39.0-53.0); HEMOGLOBIN 12.7 g/dL (13.0-17.5); LYMPH # 2.8 x10^3/uL (1.0-4.8); LYMPH % 35 % (24-48); MEAN CORPUSCULAR HEMOGLOBIN 25 pg (25-35); MEAN CORPUSCULAR HGB CONC 32 g/dL (31-37); MEAN CORPUSCULAR VOLUME 76 fL (79-100); MONO % 6 % (0-9); NEUT % 52 % (31-73); PLATELET COUNT 351 x10^3/uL (140-400); RED BLOOD COUNT 5.19 x10^6/uL (4.30-5.70); RED CELL DISTRIBUTION WIDTH 22.8 % (11.5-14.5); WHITE BLOOD COUNT 8.1 x10^3/uL (4.0-11.0)
--- NOTE | 2017-03-28 00:48 | PHYS DOC ---
Past Medical History Past Medical History: Alcoholism, Asthma, GERD, Hypertension, Pancreatitis Past Surgical History: Tonsillectomy Additional Past Surgical Histo: adnoidectomy, left eye Alcohol Use: Heavy Drug Use: Cocaine, Marijuana Social History Narrative: pt states former drug use Adult General Chief Complaint Chief Complaint: ABDOMINAL PAIN HPI HPI 42-year-old male presenting to the emergency department today . He describes his abdominal pain in the left upper quadrant it comes and goes. He reports a history of pancreatitis. The pain is mild to moderate intermittent. He denies nausea or vomiting. He reports mild amount of hemoptysis. The pain is been present for about one day. He does drink regularly. However, recently the patient was admitted for detox. He went about 7-10 days of complete abstinence and then restarted drinking about 3 days ago. Review of systems is negative for fevers chills chest pain shortness of breath. All other review of systems is negative unless otherwise noted in history of present illness. ED course: 42-year-old male presenting to the emergency department today with epigastric abdominal pain. Afebrile with mild tachycardia. IV fluids given along with thiamine and folate. Blood work obtained. pertinent exam: Soft nontender abdomen without rebound tenderness or guarding present. Negative McBurneys point. Negative Marie sign. No ecchymosis present. Blood work obtained which was unremarkable. Repeat abdominal exam continues show soft nontender abdomen. Patient was given oral Pepcid to follow-up with his doctor in the next few days. The patient was then discharged home in stable condition to follow up with their primary care physician over the next 2-3 days. They were to return if their symptoms worsened or if they were concerned for any reason. [id number] discharge instructions and return precautions were given. Patient's questions were answered to their satisfaction. Patient is comfortable plan. Patient's family is here with the patient and is able to care for the patient home. Patient's family member is comfortable monitoring the patient home. Review of Systems Review of Systems SEE ABOVE. Current Medications Current Medications Current Medications Medications (Trade) Dose Ordered Sig/Wil Start Time Stop Time Status Last Admin Dose Admin Hydromorphone HCl (Dilaudid) 0.5 mg PRN Q15MIN PRN 03/28/17 01:15 03/28/17 02:48 DC 03/28/17 02:30 0.5 MG Multi-Ingredient Mouthwash/Gargle (Gi Cocktail Single Dose) 15 ml 1X ONCE 03/28/17 02:30 03/28/17 02:31 DC 03/28/17 02:29 15 ML Multivitamins 10 ml/Folic Acid 1 mg/Thiamine HCl 100 mg/Sodium Chloride 1,011.2 ml @ 1,000 mls/ hr Q1H 03/28/17 01:00 03/28/17 01:00 DC 03/28/17 00:32 1,000 MLS/HR Ondansetron HCl (Zofran) 4 mg 1X ONCE 03/28/17 01:30 03/28/17 01:31 DC 03/28/17 01:29 4 MG Sodium Chloride 1,000 ml @ 1,000 mls/hr Q1H 03/28/17 01:30 03/28/17 02:29 DC 03/28/17 01:32 1,000 MLS/HR Allergies Allergies Allergies Coded Allergies Type Severity Reaction Last Updated Verified No Known Drug Allergies 04/30/16 No Physical Exam Physical Exam Constitutional: Well developed, well nourished, no acute distress, non-toxic appearance. [] HENT: Normocephalic, atraumatic, bilateral external ears normal, oropharynx moist, no oral exudates, nose normal. [] Eyes: PERRLA, EOMI, conjunctiva normal, no discharge. [] Neck: Normal range of motion, no tenderness, supple, no stridor. [] Cardiovascular:Heart rate regular rhythm, no murmur [] Lungs & Thorax: Bilateral breath sounds clear to auscultation [] Abdomen: Bowel sounds normal, soft, no tenderness, no masses, no pulsatile masses. [] Skin: Warm, dry, no erythema, no rash. [] Back: No tenderness, no CVA tenderness. [] Extremities: No tenderness, no cyanosis, no clubbing, ROM intact, no edema. [] Neurologic: Alert and oriented X 3, normal motor function, normal sensory function, no focal deficits noted. [] Psychologic: Affect normal, judgement normal, mood normal. [] Current Patient Data Vital Signs Vital Signs Date Time Temp Pulse Resp B/P (MAP) Pulse Ox O2 Delivery O2 Flow Rate FiO2 03/28/17 02:30 95 22 158/96 (116) 96 Room Air 03/28/17 00:12 99.1 99.1 Lab Values Laboratory Tests Test 03/28/17 00:30 03/28/17 01:05 White Blood Count 8.1 x10^3/uL (4.0-11.0) Red Blood Count 5.19 x10^6/uL (4.30-5.70) Hemoglobin 12.7 g/dL (13.0-17.5) L Hematocrit 39.5 % (39.0-53.0) Mean Corpuscular Volume 76 fL (79-100) L Mean Corpuscular Hemoglobin 25 pg (25-35) Mean Corpuscular Hemoglobin Concent 32 g/dL (31-37) Red Cell Distribution Width 22.8 % (11.5-14.5) H Platelet Count 351 x10^3/uL (140-400) # Neutrophils (%) (Auto) 52 % (31-73) Lymphocytes (%) (Auto) 35 % (24-48) Monocytes (%) (Auto) 6 % (0-9) Eosinophils (%) (Auto) 4 % (0-3) H Basophils (%) (Auto) 3 % (0-3) Neutrophils # (Auto) 4.2 x10^3uL (1.8-7.7) Lymphocytes # (Auto) 2.8 x10^3/uL (1.0-4.8) Monocytes # (Auto) 0.5 x10^3/uL (0.0-1.1) Eosinophils # (Auto) 0.3 x10^3/uL (0.0-0.7) Basophils # (Auto) 0.2 x10^3/uL (0.0-0.2) Sodium Level 140 mmol/L (136-145) Potassium Level 4.2 mmol/L (3.5-5.1) Chloride Level 101 mmol/L (98-107) Carbon Dioxide Level 28 mmol/L (21-32) Anion Gap 11 (6-14) Blood Urea Nitrogen 21 mg/dL (8-26) Creatinine 1.0 mg/dL (0.7-1.3) Estimated GFR (Cockcroft-Gault) 82.8 Glucose Level 119 mg/dL (70-99) H Calcium Level 8.8 mg/dL (8.5-10.1) Magnesium Level 2.0 mg/dL (1.8-2.4) Total Bilirubin 0.1 mg/dL (0.2-1.0) L Direct Bilirubin 0.1 mg/dL (0.0-0.2) Aspartate Amino Transferase (AST) 33 U/L (15-37) Alanine Aminotransferase (ALT) 33 U/L (16-63) Alkaline Phosphatase 69 U/L (46-116) Total Protein 8.3 g/dL (6.4-8.2) H Albumin 4.0 g/dL (3.4-5.0) Lipase 271 U/L (73-393) Ethyl Alcohol Level 370 mg/dL (0-10) H Urine Collection Type Unknown Urine Color Yellow Urine Clarity Clear Urine pH 5.5 Urine Specific [place] 1.025 Urine Protein 100 mg/dL (NEG-TRACE) Urine Glucose (UA) Negative mg/dL (NEG) Urine Ketones (Stick) Negative mg/dL (NEG) Urine Blood Negative (NEG) Urine Nitrite Negative (NEG) Urine Bilirubin Negative (NEG) Urine Urobilinogen Dipstick 0.2 mg/dL (0.2 mg/dL) Urine Leukocyte Esterase Negative (NEG) Urine RBC 0 /HPF (0-2) Urine WBC Occ /HPF (0-4) Urine Squamous Epithelial Cells Occ /LPF Urine Bacteria 0 /HPF (0-FEW) Urine Mucus Slight /LPF Urine Opiates Screen Neg (NEG) Urine Methadone Screen Neg (NEG) Urine Barbiturates Neg (NEG) Urine Phencyclidine Screen Neg (NEG) Urine Amphetamine/Methamphetamine Neg (NEG) Urine Benzodiazepines Screen Pos (NEG) Urine Cocaine Screen Neg (NEG) Urine Cannabinoids Screen Neg (NEG) Urine Ethyl Alcohol Pos (NEG) Laboratory Tests 03/28/17 00:30 Laboratory Tests 03/28/17 00:30 EKG EKG [] Radiology/Procedures Radiology/Procedures [] Course & Med Decision Making Course & Med Decision Making Pertinent Labs and Imaging studies reviewed. (See chart for details) [] Dragon Disclaimer Dragon Disclaimer This electronic medical record was generated, in whole or in part, using a voice recognition dictation system. Departure Departure Impression: Primary Impression: Abdominal pain Disposition: 01 HOME, SELF-CARE Condition: STABLE Referrals: HERMILA JACKSON MD (PCP) Scripts Famotidine (PEPCID) 40 Mg Tablet 40 MG PO HS, #14 TAB 0 Refills Prov: YISEL LOMAX MD 03/28/17 YISEL LOMAX MD Mar 28, 2017 00:48
[2017-03-28] MEDS ORDERED: MULTIVIT INFUSN,ADULT 4,VIT K 10 ML, FOLIC ACID 1 MG, THIAMINE 100 MG in IV NORMAL SALI... IV SCH (01:00)
[2017-03-28 01:15] LABS: BILIRUBIN,URINE NEGATIVE (NEG); GLUCOSE,URINE NEGATIVE (NEG); NITRITE,URINE NEGATIVE (NEG); PH,URINE 5.5; PROTEIN,URINE 100 mg/dL (NEG-TRACE); UROBILINOGEN,URINE 0.2 mg/dL (0.2 mg/dL)
[2017-03-28 01:20] LABS: CALCIUM 8.8 mg/dL (8.5-10.1); GFR 82.8; POTASSIUM 4.2 mmol/L (3.5-5.1)
[2017-03-28 01:24] LABS: DIRECT BILIRUBIN 0.1 mg/dL (0.0-0.2); TOTAL BILIRUBIN 0.1 mg/dL (0.2-1.0); TOTAL PROTEIN 8.3 g/dL (6.4-8.2)
[2017-03-28] MEDS ORDERED: IV NORMAL SALINE 1000ML BAG 1,000 ML IV SCH (01:30)
[2017-03-28] MEDS: HYDROmorphone 2 MG/ML VIAL IV/SQ PRN ×2 (01:30→02:30)
[2017-03-28] MEDS ORDERED: ONDANSETRON PF 4 MG/2 ML VIAL. IV ONE (01:30)
[2017-03-28 01:32] LABS: BARBITURATES NEG (NEG); BENZODIAZEPINES POS (NEG); CANNABINOIDS NEG (NEG); COCAINE NEG (NEG); METHADONE NEG (NEG); OPIATES NEG (NEG); PHENCYCLIDINE NEG (NEG)
[2017-03-28 01:41] LABS: BACTERIA,URINE 0 /HPF (0-FEW); RBC,URINE 0 /HPF (0-2); SQUAMOUS EPITHELIAL CELL,UR OCC /LPF; WBC,URINE OCC /HPF (0-4)
[2017-03-28] MEDS ORDERED: FAMO40TA57 PO (02:09)
[2017-03-28 02:30] VITALS: BP 158/96
[2017-03-28] MEDS ORDERED: LIDO:MAALOX:DONNATAL 1:1:1 15 ML SINGLE DOSE SWSW ONE (02:30)
== END 2017-03-28 02:48 | disposition home or self-care (01) ==
LOC: ER 00:02
DX: R10.12 Left upper quadrant pain (principal); R10.13 Epigastric pain; R04.2 Hemoptysis; R00.0 Tachycardia, unspecified; F10.20 Alcohol dependence, uncomplicated; J45.909 Unspecified asthma, uncomplicated; K21.9 Gastro-esophageal reflux disease without esophagitis; I10 Essential (primary) hypertension
CPT/HCPCS: 36415; 80048; 80076; 80307; 81001; 83690; 83735; 85025; 96361; 96365; 96375; 96376; 99284; G0480; J1170; J2405; J7030; G0479

== ENCOUNTER 2018-03-02 14:41 | Inpatient (IN) | payer SELFPAY ==
[~2018-03-02] VITALS: Ht 177.8 cm; Wt 105.7 kg
[~2018-03-02 14:41] MED LIST changes: +FAMO40TA57 PO; +LISI-130 PO; -LISI40TA PO; -THIA100T4 PO; +THIA100T57 PO
[2018-03-02] MEDS ORDERED: MORPHINE SULFATE 4 MG/ML VIAL. IV ONE ×2 (16:00→17:15)
[2018-03-02] MEDS ORDERED: ONDANSETRON PF 4 MG/2 ML VIAL. IV ONE (16:00)
[2018-03-02 16:05] LABS: BASO # 0.1 x10^3/uL (0.0-0.2); BASO % 1 % (0-3); EOS # 0.2 x10^3/uL (0.0-0.7); EOS % 3 % (0-3); HEMATOCRIT 41.4 % (39.0-53.0); HEMOGLOBIN 13.9 g/dL (13.0-17.5); LYMPH # 2.2 x10^3/uL (1.0-4.8); LYMPH % 27 % (24-48); MEAN CORPUSCULAR HEMOGLOBIN 26 pg (25-35); MEAN CORPUSCULAR HGB CONC 34 g/dL (31-37); MEAN CORPUSCULAR VOLUME 76 fL (79-100); MONO # 0.6 x10^3/uL (0.0-1.1); MONO % 8 % (0-9); NEUT # 5.1 x10^3uL (1.8-7.7); NEUT % 62 % (31-73); PLATELET COUNT 335 x10^3/uL (140-400); RED BLOOD COUNT 5.45 x10^6/uL (4.30-5.70); RED CELL DISTRIBUTION WIDTH 16.2 % (11.5-14.5); WHITE BLOOD COUNT 8.3 x10^3/uL (4.0-11.0)
[2018-03-02] MEDS ORDERED: IOHEXOL 300 MG/ML 100ML VIAL. IV ONE (16:15)
[2018-03-02 16:19] LABS: CALCIUM 8.8 mg/dL (8.5-10.1); GFR 82.8; POTASSIUM 3.7 mmol/L (3.5-5.1)
[2018-03-02 16:26] LABS: ALBUMIN 3.9 g/dL (3.4-5.0); DIRECT BILIRUBIN 0.1 mg/dL (0.0-0.2); TOTAL BILIRUBIN 0.3 mg/dL (0.2-1.0); TOTAL PROTEIN 8.1 g/dL (6.4-8.2)
[2018-03-02 17:00] LABS: BILIRUBIN,URINE NEGATIVE (NEG); CLARITY,URINE CLEAR; COLOR,URINE YELLOW; NITRITE,URINE NEGATIVE (NEG); PH,URINE 7.5; PROTEIN,URINE NEGATIVE (NEG-TRACE)
--- NOTE | 2018-03-02 17:07 | RAD ---
CT ABD PELV W/ IV CONTRST ONLY Indication: LEFT SIDE ABD PAIN WITH NAUSEA, VOMIITNG, DIARRHEA
OMNI 300 75ML, PRIOR SENT Exposure: One or more of the following individualized dose reduction techniques were utilized for this examination: 1. Automated exposure control 2. Adjustment of the mA and/or kV according to patient size 3. Use of iterative reconstruction technique. Comparison: February 24, 2017 Contrast: Intravenous contrast was given. No oral contrast per request. FINDINGS: Lower thorax: Lung bases are clear. Heart incompletely visualized, but appears enlarged. Liver: Hypodense lesion in the left lobe measures 3.5 cm diameter, with some peripheral nodular enhancement. Smaller similar lesion is seen at the central liver, measuring 2 cm. Not clearly seen on prior study. Mildly enlarged, measuring 21.5 cm longitudinal. This has increased since the prior study, when it measured 19 cm. Spleen: Unremarkable Pancreas: Unremarkable Adrenals:No evidence of mass. Kidneys:Unremarkable Gallbladder: No calcified stone Lymph nodes: No significant enlargement Vessels: * Aorta: Nonaneurysmal * Mesenteric: Patent * Portal venous: Patent GI tract: Small hiatal hernia. Mild fluid distention of proximal small bowel loops. No convincing evidence of obstruction. No evidence of acute colitis. Appendix is not clearly visualized. Reproductive organs:No evidence of mass. Urinary bladder: Unremarkable. Peritoneum: No evidence of pneumoperitoneum. No free fluid. Abdominal wall:Unremarkable Spine: Mild degenerative changes particularly at the lumbosacral junction. Bones: No destructive process identified. IMPRESSION: 1. There are 2 lesions within the liver, the imaging features of which suggest hemangiomas. However, these were not seen previously, therefore recommend further evaluation with other modality such as ultrasound or MRI. 2. Mild fluid distention of small bowel loops proximally, may represent a mild small bowel enteritis. There is not much inflammatory stranding in the fatty tissue surrounding the bowel. Focal ileus, or a low-grade or mild obstruction could be considered. Electronically signed by: Obey Tay MD (03/02/2018 5:03 PM) [id number]
[2018-03-02 17:09] LABS: BACTERIA,URINE 0 /HPF (0-FEW); SQUAMOUS EPITHELIAL CELL,UR FEW /LPF
[2018-03-02] MEDS ORDERED: FAMOTIDINE 20 MG/2 ML VIAL IVP ONE (17:30)
[2018-03-02] MEDS ORDERED: LIDO:MAALOX 1:1 20 ML SINGLE DOSE. PO ONE (17:45)
--- NOTE | 2018-03-02 17:56 | PHYS DOC ---
Past Medical History Past Medical History: Alcoholism, Asthma, GERD, Hypertension, Pancreatitis Past Surgical History: Tonsillectomy Additional Past Surgical Histo: adnoidectomy, left eye Alcohol Use: Heavy Drug Use: Cocaine, Marijuana Adult General Chief Complaint Chief Complaint: ABDOMINAL PAIN HPI HPI Patient is a 42 year old male who presents with epigastric pain after drinking alcohol. Patient is known to be an alcoholic. He has a prior history of pancreatitis. Patient did not drink alcohol over the last 7 weeks but did have a relapse this weekend binge drink. He presents to the ER today complaining of severe epigastric pain with nausea and vomiting. His symptoms have become severely worse in the last several hours. His last treatment of alcohol was at 1300 today. He does endorse prior history of some alcohol withdrawal symptoms. No fever or chills. He does complain of some dark tarry stools. Review of Systems Review of Systems Constitutional: Denies fever Eyes: Denies change in visual acuity HENT: Denies nasal congestion or sore throat Respiratory: Denies cough or shortness of breath Cardiovascular: No additional information not addressed in HPI GI: as documented above : Denies dysuria Musculoskeletal: Denies back pain Integument: Denies rash or skin lesions Neurologic: Denies headache Endocrine: Denies polyuria All other systems were reviewed and found to be within normal limits, except as documented in this note. Current Medications Current Medications Current Medications Medications (Trade) Dose Ordered Sig/Wil Start Time Stop Time Status Last Admin Dose Admin Famotidine (Pepcid Vial) 20 mg 1X ONCE 03/02/18 17:30 03/02/18 17:31 DC 03/02/18 17:24 20 MG Iohexol (Omnipaque 300 Mg/ml) 75 ml 1X ONCE 03/02/18 16:15 03/02/18 16:16 DC 03/02/18 16:36 75 ML Lorazepam (Ativan) 1 mg 1X ONCE 03/02/18 18:15 03/02/18 18:16 DC Morphine Sulfate (Morphine Sulfate) 6 mg 1X ONCE 03/02/18 17:15 03/02/18 17:16 DC 03/02/18 17:30 6 MG Multi-Ingredient Mouthwash/Gargle (Gi Cocktail) 20 ml 1X ONCE 03/02/18 17:45 03/02/18 17:48 DC Ondansetron HCl (Zofran) 4 mg 1X ONCE 03/02/18 16:00 03/02/18 16:01 DC 03/02/18 16:03 4 MG Allergies Allergies Allergies Coded Allergies Type Severity Reaction Last Updated Verified No Known Drug Allergies 04/30/16 No Physical Exam Physical Exam Constitutional: Well developed, well nourished, no acute distress HENT: Normocephalic, atraumatic, bilateral external ears normal Eyes: PERRLA, EOMI, conjunctiva normal, no discharge Neck: Normal range of motion Cardiovascular:Heart rate regular rhythm, no murmur Lungs & Thorax: Bilateral breath sounds clear to auscultation Abdomen: mild TTP over epigastrium. no guarding or rebound Skin: Warm, dry, no erythema Extremities: No tenderness, no edema Neurologic: Alert and oriented X 3 Psychologic: Affect normal Current Patient Data Vital Signs Vital Signs Date Time Temp Pulse Resp B/P (MAP) Pulse Ox O2 Delivery O2 Flow Rate FiO2 03/02/18 17:30 24 95 Room Air 03/02/18 15:54 98.0 96 157/90 (112) 98.0 Lab Values Laboratory Tests Test 03/02/18 15:45 03/02/18 18:10 White Blood Count 8.3 x10^3/uL (4.0-11.0) Red Blood Count 5.45 x10^6/uL (4.30-5.70) Hemoglobin 13.9 g/dL (13.0-17.5) Hematocrit 41.4 % (39.0-53.0) Mean Corpuscular Volume 76 fL (79-100) L Mean Corpuscular Hemoglobin 26 pg (25-35) Mean Corpuscular Hemoglobin Concent 34 g/dL (31-37) Red Cell Distribution Width 16.2 % (11.5-14.5) H Platelet Count 335 x10^3/uL (140-400) Neutrophils (%) (Auto) 62 % (31-73) Lymphocytes (%) (Auto) 27 % (24-48) Monocytes (%) (Auto) 8 % (0-9) Eosinophils (%) (Auto) 3 % (0-3) Basophils (%) (Auto) 1 % (0-3) Neutrophils # (Auto) 5.1 x10^3uL (1.8-7.7) Lymphocytes # (Auto) 2.2 x10^3/uL (1.0-4.8) Monocytes # (Auto) 0.6 x10^3/uL (0.0-1.1) Eosinophils # (Auto) 0.2 x10^3/uL (0.0-0.7) Basophils # (Auto) 0.1 x10^3/uL (0.0-0.2) Urine Collection Type Unknown Urine Color Yellow Urine Clarity Clear Urine pH 7.5 Urine Specific [place] 1.015 Urine Protein Negative mg/dL (NEG-TRACE) Urine Glucose (UA) Negative mg/dL (NEG) Urine Ketones (Stick) Negative mg/dL (NEG) Urine Blood Negative (NEG) Urine Nitrite Negative (NEG) Urine Bilirubin Negative (NEG) Urine Urobilinogen Dipstick 1.0 mg/dL (0.2 mg/dL) Urine Leukocyte Esterase Trace (NEG) Urine RBC 1-2 /HPF (0-2) Urine WBC 1-4 /HPF (0-4) Urine Squamous Epithelial Cells Few /LPF Urine Bacteria 0 /HPF (0-FEW) Sodium Level 143 mmol/L (136-145) Potassium Level 3.7 mmol/L (3.5-5.1) Chloride Level 101 mmol/L (98-107) Carbon Dioxide Level 28 mmol/L (21-32) Anion Gap 14 (6-14) Blood Urea Nitrogen 11 mg/dL (8-26) Creatinine 1.0 mg/dL (0.7-1.3) Estimated GFR (Cockcroft-Gault) 82.8 Glucose Level 148 mg/dL (70-99) H Calcium Level 8.8 mg/dL (8.5-10.1) Total Bilirubin 0.3 mg/dL (0.2-1.0) Direct Bilirubin 0.1 mg/dL (0.0-0.2) Aspartate Amino Transferase (AST) 24 U/L (15-37) Alanine Aminotransferase (ALT) 32 U/L (16-63) Alkaline Phosphatase 78 U/L (46-116) Total Protein 8.1 g/dL (6.4-8.2) Albumin 3.9 g/dL (3.4-5.0) Lipase 122 U/L (73-393) Ethyl Alcohol Level 276 mg/dL (0-10) H Stool Occult Blood Negative (NEG) Laboratory Tests 03/02/18 15:45 Laboratory Tests 03/02/18 15:45 EKG EKG [] Radiology/Procedures Radiology/Procedures FINDINGS: Lower thorax: Lung bases are clear. Heart incompletely visualized, but appears enlarged. Liver: Hypodense lesion in the left lobe measures 3.5 cm diameter, with some peripheral nodular enhancement. Smaller similar lesion is seen at the central liver, measuring 2 cm. Not clearly seen on prior study. Mildly enlarged, measuring 21.5 cm longitudinal. This has increased since the prior study, when it measured 19 cm. Spleen: Unremarkable Pancreas: Unremarkable Adrenals:No evidence of mass. Kidneys:Unremarkable Gallbladder: No calcified stone Lymph nodes: No significant enlargement Vessels: * Aorta: Nonaneurysmal * Mesenteric: Patent * Portal venous: Patent GI tract: Small hiatal hernia. Mild fluid distention of proximal small bowel loops. No convincing evidence of obstruction. No evidence of acute colitis. Appendix is not clearly visualized. Reproductive organs:No evidence of mass. Urinary bladder: Unremarkable. Peritoneum: No evidence of pneumoperitoneum. No free fluid. Abdominal wall:Unremarkable Spine: Mild degenerative changes particularly at the lumbosacral junction. Bones: No destructive process identified. IMPRESSION: 1. There are 2 lesions within the liver, the imaging features of which suggest hemangiomas. However, these were not seen previously, therefore recommend further evaluation with other modality such as ultrasound or MRI. 2. Mild fluid distention of small bowel loops proximally, may represent a mild small bowel enteritis. There is not much inflammatory stranding in the fatty tissue surrounding the bowel. Focal ileus, or a low-grade or mild obstruction could be considered. Course & Med Decision Making Course & Med Decision Making Pertinent Labs and Imaging studies reviewed. (See chart for details) 16:50: Patient is seen and examined. He has some mild tenderness to palpation over the epigastrium. Morphine and Zofran are ordered for pain control. Plan is to do standard abdominal pain workup to rule out pancreatitis. 17:55: PAT team did evaluate the patient. There are no inpatient beds for we have available. The patient can follow-up for this at a later date. The patient' s CT scan is reviewed and documented above. There are some findings of inflammation. Small bowel obstruction or ileus is not entirely ruled out. The patient currently continues to complain of abdominal pain. Guaiac of stool is negative for blood. Given the patient's CT scan findings, plan will be to admit for observation. Suspect alcoholic gastritis. His abdominal exam is not entirely consistent with any acute obstruction or ileus but will request an observation admission. I spoke to Dr. frank who will admit the patient. Patient is agreeable. Dragon Disclaimer Dragon Disclaimer This electronic medical record was generated, in whole or in part, using a voice recognition dictation system. Departure Departure Referrals: HERMILA JACKSON MD (PCP) GRIFFIN SALES DO Mar 02, 2018 17:56
[2018-03-02 18:22] LABS: FECAL OB PT NEGATIVE (NEG)
[2018-03-02] MEDS ORDERED: ONDANSETRON PF 4 MG/2 ML VIAL. IV PRN (18:30)
[2018-03-02] MEDS ORDERED: PANTOPRAZOLE IV PUSH 40 MG VIAL. IVP ONE (19:00)
[2018-03-02] MEDS: MORPHINE SULFATE 4 MG/ML VIAL. IV PRN ×2 (20:07→23:22)
[2018-03-02] MEDS: IV NORMAL SALINE 1000ML BAG 1,000 ML IV SCH (20:13)
[2018-03-02] MEDS ORDERED: PROAIR HFA8.5 GM INH (20:59)
[2018-03-02] MEDS ORDERED: IPRA3AMP29 NEB (20:59)
[2018-03-02] MEDS ORDERED: IPRATRPIUM/ALBUTEROL 0.5/2.5MG 3 ML NEBU. NEB PRN (21:15)
[2018-03-02] MEDS ORDERED: ALBUTEROL SULFATE 2.5 MG/3 ML NEBU. NEB PRN (21:30)
[2018-03-02] MEDS: THEOPHYLLINE 12HR ER 300 MG TAB.ER.12H. PO SCH (21:45)
--- NOTE | 2018-03-02 21:51 | PDOC1 ---
History and Physical Date of Admission Date of Admission DATE: 03/02/18 TIME: 21:49 Identification/Chief Complaint Chief Complaint abd pain Source Source: Caregiver (mom is present), Chart review, Patient History of Present Illness History of Present Illness Mr. Osborn is a 42 year old male who presents with acute and severe epigastric pain after drinking alcohol. Patient is known to be an alcoholic w/ a prior history of pancreatitis. He has been sober 8 months, then started drinking again past 5 days, one liter whiskey per day. . He presents to the ER today complaining of severe epigastric pain with nausea and vomiting. he has not eaten in 3 days, continued to drink EtOH, marked history of severe EtOH withdrawl with seizure. He does complain of some dark tarry stools. Past Medical History Pulmonary: Asthma Past Surgical History Past Surgical History: No pertinent history Family History Family History: Hypertension Social History ALCOHOL: heavy Drugs: Cocaine, Marijuana Current Medications Current Medications Current Medications Morphine Sulfate (Morphine Sulfate) 6 mg 1X ONCE IV Last administered on at 16:03; Start 03/02/18 at 16:00; Stop 03/02/18 at 16:01; Status DC Ondansetron HCl (Zofran) 4 mg 1X ONCE IV Last administered on 03/02/18at 16:03 ; Start 03/02/18 at 16:00; Stop 03/02/18 at 16:01; Status DC Iohexol (Omnipaque 300 Mg/ml) 75 ml 1X ONCE IV Last administered on 03/02/18at 16:36; Start 03/02/18 at 16:15; Stop 03/02/18 at 16:16; Status DC Morphine Sulfate (Morphine Sulfate) 6 mg 1X ONCE IV Last administered on at 17:30; Start 03/02/18 at 17:15; Stop 03/02/18 at 17:16; Status DC Famotidine (Pepcid Vial) 20 mg 1X ONCE IVP Last administered on 03/02/18at 17: 24; Start 03/02/18 at 17:30; Stop 03/02/18 at 17:31; Status DC Multi-Ingredient Mouthwash/Gargle (Gi Cocktail) 20 ml 1X ONCE PO ; Start at 17:45; Stop 03/02/18 at 17:48; Status DC Lorazepam (Ativan) 1 mg 1X ONCE IV Last administered on 03/02/18at 20:24; Start 03/02/18 at 18:15; Stop 03/02/18 at 18:16; Status DC Ondansetron HCl (Zofran) 4 mg PRN Q8HRS PRN IV NAUSEA/VOMITING; Start 03/02/18 at 18:30; Stop 03/03/18 at 18:29 Morphine Sulfate (Morphine Sulfate) 6 mg PRN Q3HRS PRN IV PAIN Last administered on 03/02/18at 20:07; Start 03/02/18 at 18:30; Stop 03/03/18 at 18:29 Sodium Chloride 1,000 ml @ 100 mls/hr Q10H IV Last administered on 03/02/18at 20:13; Start 03/02/18 at 18:30; Stop 03/03/18 at 18:29 Lorazepam (Ativan) 1 mg PRN Q3HRS PRN IV ETOH withdrawal; Start 03/02/18 at 18: 30 Pantoprazole Sodium (PROTONIX VIAL for IV PUSH) 40 mg 1X ONCE IVP Last administered on 03/02/18at 20:09; Start 03/02/18 at 19:00; Stop 03/02/18 at 19:01 ; Status DC Albuterol/ Ipratropium (Duoneb) 3 ml Q2HR PRN NEB SHORTNESS OF BREATH; Start at 21:15; Status UNV Albuterol Sulfate (Ventolin Neb Soln) 2.5 mg PRN Q4HRS PRN NEB SHORTNESS OF BREATH; Start 03/02/18 at 21:30 Non-Formulary Medication (Budesonide/ Formoterol Fumarate (Symbicort 160-4.5 Mcg Inhaler)) 2 puff BID IH ; Start 03/03/18 at 09:00; Status UNV Pantoprazole Sodium (Protonix) 40 mg DAILYAC PO ; Start 03/03/18 at 07:30 Theophylline (Theodur) 300 mg BID PO Last administered on 03/02/18at 21:45; Start 03/02/18 at 22:00 Budesonide (Pulmicort) 0.5 mg RTBID NEB ; Start 03/03/18 at 08:00 Albuterol Sulfate (Ventolin Neb Soln) 2.5 mg RTQID NEB ; Start 03/03/18 at 08:00 Active Scripts Active Reported Proair Hfa Inhaler (Albuterol Sulfate) 8.5 Gm Hfa.aer.ad 1 Puff INH PRN Q4HRS PRN Duoneb 0.5-3(2.5) Mg/3 Ml (Albuterol/Ipratropium) 3 Ml Ampul.neb 3 Ml NEB Q2HR PRN Symbicort 160-4.5 Mcg Inhaler (Budesonide/Formoterol Fumarate) 10.2 Gm Hfa.aer.ad 2 Puff IH BID Prilosec Otc (Omeprazole Magnesium) 20 Mg Tablet.dr 1 Tab PO DAILY Theophylline (Theophylline Anhydrous) 400 Mg Tablet.er 300 Mg PO BID Allergies Allergies: Coded Allergies: No Known Drug Allergies (Unverified , 04/30/16) ROS General: YES: Fatigue, Malaise, Appetite PSYCHOLOGICAL ROS: YES: Anxiety, Sleep disturbances; No: Behavioral Disorder, Concentration difficultie, Decreased libido, Depression, Disorientation, Hallucinations, Hostility, Irritablity, Memory difficulties, Mood Swings, Obsessive thoughts, Other Eyes: No Blurry vision, No Decreased vision, No Double vision, No Dry eyes, No Excessive tearing, No Eye Pain, No Itchy Eyes, No Loss of vision, No Photophobia , No Scotomata, No Uses contacts, No Uses glasses, No Other HEENT: No: Heacaches, Visual Changes, Hearing change, Nasal congestion, Nasal discharge, Oral lesions, Sinus pain, Sore Throat, Epistaxis, Sneezing, Snoring, Tinnitus, Vertigo, Vocal changes, Other Respiratory: No: Cough, Hemoptysis, Orthopnea, Pleuritic Pain, Shortness of breath, SOB with excertion, Sputum Changes, Stridor, Tachypnea, Wheezing, Other Cardiovascular: No Chest Pain, No Palpitations, No Orthopnea, No Paroxysmal Noc. Dyspnea, No Edema, No Lt Headedness, No Other Gastrointestinal: Yes Nausea, Yes Vomiting, Yes Abdominal Pain, Yes Melena Genitourinary: No Dysuria, No Frequency, No Incontinence, No Hematuria, No Retention, No Discharge, No Urgency, No Pain, No Flank Pain, No Other, No , No , No , No , No , No , No Musculoskeletal: No Gait Disturbance, No Joint Pain, No Joint Stiffness, No Joint Swelling, No Muscle Pain, No Muscular Weakness, No Pain In:, No Swelling In:, No Other Neurological: No Behavorial Changes, No Bowel/Bladder ControlChng, No Confusion , No Dizziness, No Gait Disturbance, No Headaches, No Impaired Coord/balance, No Memory Loss, No Numbness/Tingling, No Seizures, No Speech Problems, No Tremors, No Visual Changes, No Weakness, No Other Skin: No Dry Skin, No Eczema, No Hair Changes, No Lumps, No Mole Changes, No Mottling, No Nail Changes, No Pruritus, No Rash, No Skin Lesion Changes, No Other, No Acne Physical Exam General: Alert, Oriented X3, Cooperative, mild distress, moderate distress HEENT: Atraumatic, PERRLA, EOMI, Mucous membr. moist/pink Lungs: Clear to auscultation, Normal air movement Heart: S1S2, no gallops, no murmurs Abdomen: Normal bowel sounds, Other (tender diffuse) Extremities: No clubbing, No edema, Normal pulses Skin: Other (small breakdown on forearms, mom reports she has a new puppy) Neuro: Normal speech, Normal tone, Cranial nerves 3-12 NL Psych/Mental Status: Mood NL Vitals Vitals Vital Signs Date Time Temp Pulse Resp B/P (MAP) Pulse Ox O2 Delivery O2 Flow Rate FiO2 03/02/18 20:07 20 95 Room Air 03/02/18 15:54 98.0 96 157/90 (112) 98.0 Labs Labs Laboratory Tests Test 03/02/18 15:45 03/02/18 18:10 White Blood Count 8.3 x10^3/uL (4.0-11.0) Red Blood Count 5.45 x10^6/uL (4.30-5.70) Hemoglobin 13.9 g/dL (13.0-17.5) Hematocrit 41.4 % (39.0-53.0) Mean Corpuscular Volume 76 fL (79-100) Mean Corpuscular Hemoglobin 26 pg (25-35) Mean Corpuscular Hemoglobin Concent 34 g/dL (31-37) Red Cell Distribution Width 16.2 % (11.5-14.5) Platelet Count 335 x10^3/uL (140-400) Neutrophils (%) (Auto) 62 % (31-73) Lymphocytes (%) (Auto) 27 % (24-48) Monocytes (%) (Auto) 8 % (0-9) Eosinophils (%) (Auto) 3 % (0-3) Basophils (%) (Auto) 1 % (0-3) Neutrophils # (Auto) 5.1 x10^3uL (1.8-7.7) Lymphocytes # (Auto) 2.2 x10^3/uL (1.0-4.8) Monocytes # (Auto) 0.6 x10^3/uL (0.0-1.1) Eosinophils # (Auto) 0.2 x10^3/uL (0.0-0.7) Basophils # (Auto) 0.1 x10^3/uL (0.0-0.2) Urine Collection Type Unknown Urine Color Yellow Urine Clarity Clear Urine pH 7.5 Urine Specific [place] 1.015 Urine Protein Negative mg/dL (NEG-TRACE) Urine Glucose (UA) Negative mg/dL (NEG) Urine Ketones (Stick) Negative mg/dL (NEG) Urine Blood Negative (NEG) Urine Nitrite Negative (NEG) Urine Bilirubin Negative (NEG) Urine Urobilinogen Dipstick 1.0 mg/dL (0.2 mg/dL) Urine Leukocyte Esterase Trace (NEG) Urine RBC 1-2 /HPF (0-2) Urine WBC 1-4 /HPF (0-4) Urine Squamous Epithelial Cells Few /LPF Urine Bacteria 0 /HPF (0-FEW) Sodium Level 143 mmol/L (136-145) Potassium Level 3.7 mmol/L (3.5-5.1) Chloride Level 101 mmol/L (98-107) Carbon Dioxide Level 28 mmol/L (21-32) Anion Gap 14 (6-14) Blood Urea Nitrogen 11 mg/dL (8-26) Creatinine 1.0 mg/dL (0.7-1.3) Estimated GFR (Cockcroft-Gault) 82.8 Glucose Level 148 mg/dL (70-99) Calcium Level 8.8 mg/dL (8.5-10.1) Total Bilirubin 0.3 mg/dL (0.2-1.0) Direct Bilirubin 0.1 mg/dL (0.0-0.2) Aspartate Amino Transf (AST/SGOT) 24 U/L (15-37) Alanine Aminotransferase (ALT/SGPT) 32 U/L (16-63) Alkaline Phosphatase 78 U/L (46-116) Total Protein 8.1 g/dL (6.4-8.2) Albumin 3.9 g/dL (3.4-5.0) Lipase 122 U/L (73-393) Ethyl Alcohol Level 276 mg/dL (0-10) Stool Occult Blood Negative (NEG) Laboratory Tests Test 03/02/18 15:45 03/02/18 18:10 White Blood Count 8.3 x10^3/uL (4.0-11.0) Red Blood Count 5.45 x10^6/uL (4.30-5.70) Hemoglobin 13.9 g/dL (13.0-17.5) Hematocrit 41.4 % (39.0-53.0) Mean Corpuscular Volume 76 fL (79-100) Mean Corpuscular Hemoglobin 26 pg (25-35) Mean Corpuscular Hemoglobin Concent 34 g/dL (31-37) Red Cell Distribution Width 16.2 % (11.5-14.5) Platelet Count 335 x10^3/uL (140-400) Neutrophils (%) (Auto) 62 % (31-73) Lymphocytes (%) (Auto) 27 % (24-48) Monocytes (%) (Auto) 8 % (0-9) Eosinophils (%) (Auto) 3 % (0-3) Basophils (%) (Auto) 1 % (0-3) Neutrophils # (Auto) 5.1 x10^3uL (1.8-7.7) Lymphocytes # (Auto) 2.2 x10^3/uL (1.0-4.8) Monocytes # (Auto) 0.6 x10^3/uL (0.0-1.1) Eosinophils # (Auto) 0.2 x10^3/uL (0.0-0.7) Basophils # (Auto) 0.1 x10^3/uL (0.0-0.2) Urine Collection Type Unknown Urine Color Yellow Urine Clarity Clear Urine pH 7.5 Urine Specific [place] 1.015 Urine Protein Negative mg/dL (NEG-TRACE) Urine Glucose (UA) Negative mg/dL (NEG) Urine Ketones (Stick) Negative mg/dL (NEG) Urine Blood Negative (NEG) Urine Nitrite Negative (NEG) Urine Bilirubin Negative (NEG) Urine Urobilinogen Dipstick 1.0 mg/dL (0.2 mg/dL) Urine Leukocyte Esterase Trace (NEG) Urine RBC 1-2 /HPF (0-2) Urine WBC 1-4 /HPF (0-4) Urine Squamous Epithelial Cells Few /LPF Urine Bacteria 0 /HPF (0-FEW) Sodium Level 143 mmol/L (136-145) Potassium Level 3.7 mmol/L (3.5-5.1) Chloride Level 101 mmol/L (98-107) Carbon Dioxide Level 28 mmol/L (21-32) Anion Gap 14 (6-14) Blood Urea Nitrogen 11 mg/dL (8-26) Creatinine 1.0 mg/dL (0.7-1.3) Estimated GFR (Cockcroft-Gault) 82.8 Glucose Level 148 mg/dL (70-99) Calcium Level 8.8 mg/dL (8.5-10.1) Total Bilirubin 0.3 mg/dL (0.2-1.0) Direct Bilirubin 0.1 mg/dL (0.0-0.2) Aspartate Amino Transf (AST/SGOT) 24 U/L (15-37) Alanine Aminotransferase (ALT/SGPT) 32 U/L (16-63) Alkaline Phosphatase 78 U/L (46-116) Total Protein 8.1 g/dL (6.4-8.2) Albumin 3.9 g/dL (3.4-5.0) Lipase 122 U/L (73-393) Ethyl Alcohol Level 276 mg/dL (0-10) Stool Occult Blood Negative (NEG) VTE Prophylaxis Ordered VTE Prophylaxis Devices: Yes VTE Pharmacological Prophylaxi: Yes Assessment/Plan Assessment/Plan acute gastritis EtOH abuse gastritis, esophagitis EtOH intoxication, acute encephalopathy obesity, BMI 34 Hx EtOH withdrawl, will have strong prevention in place, he asked for Librium instead of ativan, will have PRN po and IV ativan WILMAR OSBORN MD Mar 02, 2018 21:51
[2018-03-02] MEDS ORDERED: LORazepam 1 MG TABLET PO SCH (22:00)
[2018-03-02] MEDS ORDERED: LORazepam 1 MG TABLET PO PRN (22:15)
[2018-03-02] MEDS: chlordiazePOXIDE HCL 25 MG CAPSULE PO SCH (22:41)
[2018-03-02 23:00] VITALS: BP 143/90
[2018-03-03] MEDS: MORPHINE SULFATE 4 MG/ML VIAL. IV PRN ×5 (02:42→17:40)
[2018-03-03 03:00] VITALS: BP 138/85
[2018-03-03 05:07] LABS: BASO # 0.1 x10^3/uL (0.0-0.2); BASO % 1 % (0-3); EOS # 0.3 x10^3/uL (0.0-0.7); EOS % 4 % (0-3); HEMATOCRIT 38.1 % (39.0-53.0); HEMOGLOBIN 12.7 g/dL (13.0-17.5); LYMPH % 23 % (24-48); MEAN CORPUSCULAR HEMOGLOBIN 25 pg (25-35); MEAN CORPUSCULAR HGB CONC 33 g/dL (31-37); MEAN CORPUSCULAR VOLUME 77 fL (79-100); MONO # 0.7 x10^3/uL (0.0-1.1); MONO % 8 % (0-9); NEUT # 5.7 x10^3uL (1.8-7.7); NEUT % 65 % (31-73); PLATELET COUNT 280 x10^3/uL (140-400); RED BLOOD COUNT 4.98 x10^6/uL (4.30-5.70); RED CELL DISTRIBUTION WIDTH 16.3 % (11.5-14.5); WHITE BLOOD COUNT 8.8 x10^3/uL (4.0-11.0)
[2018-03-03 05:09] LABS: PROTHROMBIN TIME PATIENT 14.7 SEC (11.7-14.0)
[2018-03-03 05:19] LABS: ALBUMIN 3.6 g/dL (3.4-5.0); ALBUMIN/GLOBULIN RATIO 0.9 (1.0-1.7); CALCIUM 8.1 mg/dL (8.5-10.1); GFR 82.8; POTASSIUM 3.8 mmol/L (3.5-5.1); TOTAL BILIRUBIN 0.4 mg/dL (0.2-1.0); TOTAL PROTEIN 7.5 g/dL (6.4-8.2)
[2018-03-03] MEDS: chlordiazePOXIDE HCL 25 MG CAPSULE PO SCH ×5 (05:59→23:27)
[2018-03-03] MEDS: IV NORMAL SALINE 1000ML BAG 1,000 ML IV SCH ×2 (05:59→14:30)
[2018-03-03] MEDS: PANTOPRAZOLE 40 MG TABLET.DR. PO SCH (05:59)
[2018-03-03] MEDS: BUDESONIDE 0.5 MG/2 ML NEBU. NEB SCH ×2 (06:55→19:17)
[2018-03-03] MEDS: ALBUTEROL SULFATE 2.5 MG/3 ML NEBU. NEB SCH ×4 (06:57→19:17)
[2018-03-03 07:00] VITALS: BP 167/96
[2018-03-03] MEDS: MULTIVIT INFUSN,ADULT 4,VIT K 10 ML, THIAMINE 100 MG, FOLIC ACID 1 MG in IV NORMAL SALI... IV SCH (08:27)
[2018-03-03] MEDS ORDERED: NON FORMULARY ITEM (Budesonide/Formoterol Fumarate (Symbicort 160-4.5 Mcg Inhaler) 2 PUFF) IH SCH (09:00)
[2018-03-03] MEDS: THEOPHYLLINE 12HR ER 300 MG TAB.ER.12H. PO SCH ×2 (10:30→21:20)
[2018-03-03 11:00] VITALS: BP 153/89
--- NOTE | 2018-03-03 13:28 | PDOC ---
PROGRESS NOTES Chief Complaint Chief Complaint acute gastritis EtOH abuse gastritis, esophagitis EtOH intoxication, acute encephalopathy auditory hallucination, acute EtOH withdrawl, tremor and tachycardia obesity, BMI 34 History of Present Illness History of Present Illness Librium sched PRn ativan haldol X1 for hallucinations very ill, cont IV fluid and supportive measures Vitals Vitals Vital Signs Date Time Temp Pulse Resp B/P (MAP) Pulse Ox O2 Delivery O2 Flow Rate FiO2 03/03/18 11:30 97 Room Air 03/03/18 11:00 96.9 93 18 153/89 (110) 96.9 Physical Exam Physical Exam asterixis, some tremor, marked nystagmus 3 beat General: Alert, Oriented X3, Cooperative, mild distress, moderate distress Heart: Other (tachycardia) Lungs: Clear, Other Abdomen: Normal bowel sounds, Other (tender diffuse) Extremities: No clubbing, No edema, Normal pulses Skin: Other (small breakdown on forearms, mom reports she has a new puppy) Labs LABS Laboratory Tests Test 03/02/18 15:45 03/02/18 18:10 03/03/18 03:10 White Blood Count 8.3 x10^3/uL (4.0-11.0) 8.8 x10^3/uL (4.0-11.0) Red Blood Count 5.45 x10^6/uL (4.30-5.70) 4.98 x10^6/uL (4.30-5.70) Hemoglobin 13.9 g/dL (13.0-17.5) 12.7 g/dL (13.0-17.5) Hematocrit 41.4 % (39.0-53.0) 38.1 % (39.0-53.0) Mean Corpuscular Volume 76 fL (79-100) 77 fL (79-100) Mean Corpuscular Hemoglobin 26 pg (25-35) 25 pg (25-35) Mean Corpuscular Hemoglobin Concent 34 g/dL (31-37) 33 g/dL (31-37) Red Cell Distribution Width 16.2 % (11.5-14.5) 16.3 % (11.5-14.5) Platelet Count 335 x10^3/uL (140-400) 280 x10^3/uL (140-400) Neutrophils (%) (Auto) 62 % (31-73) 65 % (31-73) Lymphocytes (%) (Auto) 27 % (24-48) 23 % (24-48) Monocytes (%) (Auto) 8 % (0-9) 8 % (0-9) Eosinophils (%) (Auto) 3 % (0-3) 4 % (0-3) Basophils (%) (Auto) 1 % (0-3) 1 % (0-3) Neutrophils # (Auto) 5.1 x10^3uL (1.8-7.7) 5.7 x10^3uL (1.8-7.7) Lymphocytes # (Auto) 2.2 x10^3/uL (1.0-4.8) 2.0 x10^3/uL (1.0-4.8) Monocytes # (Auto) 0.6 x10^3/uL (0.0-1.1) 0.7 x10^3/uL (0.0-1.1) Eosinophils # (Auto) 0.2 x10^3/uL (0.0-0.7) 0.3 x10^3/uL (0.0-0.7) Basophils # (Auto) 0.1 x10^3/uL (0.0-0.2) 0.1 x10^3/uL (0.0-0.2) Urine Collection Type Unknown Urine Color Yellow Urine Clarity Clear Urine pH 7.5 Urine Specific [place] 1.015 Urine Protein Negative mg/dL (NEG-TRACE) Urine Glucose (UA) Negative mg/dL (NEG) Urine Ketones (Stick) Negative mg/dL (NEG) Urine Blood Negative (NEG) Urine Nitrite Negative (NEG) Urine Bilirubin Negative (NEG) Urine Urobilinogen Dipstick 1.0 mg/dL (0.2 mg/dL) Urine Leukocyte Esterase Trace (NEG) Urine RBC 1-2 /HPF (0-2) Urine WBC 1-4 /HPF (0-4) Urine Squamous Epithelial Cells Few /LPF Urine Bacteria 0 /HPF (0-FEW) Sodium Level 143 mmol/L (136-145) 140 mmol/L (136-145) Potassium Level 3.7 mmol/L (3.5-5.1) 3.8 mmol/L (3.5-5.1) Chloride Level 101 mmol/L (98-107) 104 mmol/L (98-107) Carbon Dioxide Level 28 mmol/L (21-32) 26 mmol/L (21-32) Anion Gap 14 (6-14) 10 (6-14) Blood Urea Nitrogen 11 mg/dL (8-26) 13 mg/dL (8-26) Creatinine 1.0 mg/dL (0.7-1.3) 1.0 mg/dL (0.7-1.3) Estimated GFR (Cockcroft-Gault) 82.8 82.8 Glucose Level 148 mg/dL (70-99) 111 mg/dL (70-99) Calcium Level 8.8 mg/dL (8.5-10.1) 8.1 mg/dL (8.5-10.1) Total Bilirubin 0.3 mg/dL (0.2-1.0) 0.4 mg/dL (0.2-1.0) Direct Bilirubin 0.1 mg/dL (0.0-0.2) Aspartate Amino Transf (AST/SGOT) 24 U/L (15-37) 21 U/L (15-37) Alanine Aminotransferase (ALT/SGPT) 32 U/L (16-63) 30 U/L (16-63) Alkaline Phosphatase 78 U/L (46-116) 72 U/L (46-116) Total Protein 8.1 g/dL (6.4-8.2) 7.5 g/dL (6.4-8.2) Albumin 3.9 g/dL (3.4-5.0) 3.6 g/dL (3.4-5.0) Lipase 122 U/L (73-393) Ethyl Alcohol Level 276 mg/dL (0-10) Stool Occult Blood Negative (NEG) Prothrombin Time 14.7 SEC (11.7-14.0) Prothromb Time International Ratio 1.2 (0.8-1.1) BUN/Creatinine Ratio 13 (6-20) Albumin/Globulin Ratio 0.9 (1.0-1.7) Review of Systems Review of Systems hallucination, anxiety, tremor, abd pain Comment Review of Relevant I have reviewed the following items wali (where applicable) has been applied. Labs Laboratory Tests Test 03/02/18 15:45 8/20/18 18:10 03/03/18 03:10 White Blood Count 8.3 x10^3/uL (4.0-11.0) 8.8 x10^3/uL (4.0-11.0) Red Blood Count 5.45 x10^6/uL (4.30-5.70) 4.98 x10^6/uL (4.30-5.70) Hemoglobin 13.9 g/dL (13.0-17.5) 12.7 g/dL (13.0-17.5) Hematocrit 41.4 % (39.0-53.0) 38.1 % (39.0-53.0) Mean Corpuscular Volume 76 fL (79-100) 77 fL (79-100) Mean Corpuscular Hemoglobin 26 pg (25-35) 25 pg (25-35) Mean Corpuscular Hemoglobin Concent 34 g/dL (31-37) 33 g/dL (31-37) Red Cell Distribution Width 16.2 % (11.5-14.5) 16.3 % (11.5-14.5) Platelet Count 335 x10^3/uL (140-400) 280 x10^3/uL (140-400) Neutrophils (%) (Auto) 62 % (31-73) 65 % (31-73) Lymphocytes (%) (Auto) 27 % (24-48) 23 % (24-48) Monocytes (%) (Auto) 8 % (0-9) 8 % (0-9) Eosinophils (%) (Auto) 3 % (0-3) 4 % (0-3) Basophils (%) (Auto) 1 % (0-3) 1 % (0-3) Neutrophils # (Auto) 5.1 x10^3uL (1.8-7.7) 5.7 x10^3uL (1.8-7.7) Lymphocytes # (Auto) 2.2 x10^3/uL (1.0-4.8) 2.0 x10^3/uL (1.0-4.8) Monocytes # (Auto) 0.6 x10^3/uL (0.0-1.1) 0.7 x10^3/uL (0.0-1.1) Eosinophils # (Auto) 0.2 x10^3/uL (0.0-0.7) 0.3 x10^3/uL (0.0-0.7) Basophils # (Auto) 0.1 x10^3/uL (0.0-0.2) 0.1 x10^3/uL (0.0-0.2) Urine Collection Type Unknown Urine Color Yellow Urine Clarity Clear Urine pH 7.5 Urine Specific [place] 1.015 Urine Protein Negative mg/dL (NEG-TRACE) Urine Glucose (UA) Negative mg/dL (NEG) Urine Ketones (Stick) Negative mg/dL (NEG) Urine Blood Negative (NEG) Urine Nitrite Negative (NEG) Urine Bilirubin Negative (NEG) Urine Urobilinogen Dipstick 1.0 mg/dL (0.2 mg/dL) Urine Leukocyte Esterase Trace (NEG) Urine RBC 1-2 /HPF (0-2) Urine WBC 1-4 /HPF (0-4) Urine Squamous Epithelial Cells Few /LPF Urine Bacteria 0 /HPF (0-FEW) Sodium Level 143 mmol/L (136-145) 140 mmol/L (136-145) Potassium Level 3.7 mmol/L (3.5-5.1) 3.8 mmol/L (3.5-5.1) Chloride Level 101 mmol/L (98-107) 104 mmol/L (98-107) Carbon Dioxide Level 28 mmol/L (21-32) 26 mmol/L (21-32) Anion Gap 14 (6-14) 10 (6-14) Blood Urea Nitrogen 11 mg/dL (8-26) 13 mg/dL (8-26) Creatinine 1.0 mg/dL (0.7-1.3) 1.0 mg/dL (0.7-1.3) Estimated GFR (Cockcroft-Gault) 82.8 82.8 Glucose Level 148 mg/dL (70-99) 111 mg/dL (70-99) Calcium Level 8.8 mg/dL (8.5-10.1) 8.1 mg/dL (8.5-10.1) Total Bilirubin 0.3 mg/dL (0.2-1.0) 0.4 mg/dL (0.2-1.0) Direct Bilirubin 0.1 mg/dL (0.0-0.2) Aspartate Amino Transf (AST/SGOT) 24 U/L (15-37) 21 U/L (15-37) Alanine Aminotransferase (ALT/SGPT) 32 U/L (16-63) 30 U/L (16-63) Alkaline Phosphatase 78 U/L (46-116) 72 U/L (46-116) Total Protein 8.1 g/dL (6.4-8.2) 7.5 g/dL (6.4-8.2) Albumin 3.9 g/dL (3.4-5.0) 3.6 g/dL (3.4-5.0) Lipase 122 U/L (73-393) Ethyl Alcohol Level 276 mg/dL (0-10) Stool Occult Blood Negative (NEG) Prothrombin Time 14.7 SEC (11.7-14.0) Prothromb Time International Ratio 1.2 (0.8-1.1) BUN/Creatinine Ratio 13 (6-20) Albumin/Globulin Ratio 0.9 (1.0-1.7) Laboratory Tests Test 03/02/18 15:45 03/02/18 18:10 03/03/18 03:10 White Blood Count 8.3 x10^3/uL (4.0-11.0) 8.8 x10^3/uL (4.0-11.0) Red Blood Count 5.45 x10^6/uL (4.30-5.70) 4.98 x10^6/uL (4.30-5.70) Hemoglobin 13.9 g/dL (13.0-17.5) 12.7 g/dL (13.0-17.5) Hematocrit 41.4 % (39.0-53.0) 38.1 % (39.0-53.0) Mean Corpuscular Volume 76 fL (79-100) 77 fL (79-100) Mean Corpuscular Hemoglobin 26 pg (25-35) 25 pg (25-35) Mean Corpuscular Hemoglobin Concent 34 g/dL (31-37) 33 g/dL (31-37) Red Cell Distribution Width 16.2 % (11.5-14.5) 16.3 % (11.5-14.5) Platelet Count 335 x10^3/uL (140-400) 280 x10^3/uL (140-400) Neutrophils (%) (Auto) 62 % (31-73) 65 % (31-73) Lymphocytes (%) (Auto) 27 % (24-48) 23 % (24-48) Monocytes (%) (Auto) 8 % (0-9) 8 % (0-9) Eosinophils (%) (Auto) 3 % (0-3) 4 % (0-3) Basophils (%) (Auto) 1 % (0-3) 1 % (0-3) Neutrophils # (Auto) 5.1 x10^3uL (1.8-7.7) 5.7 x10^3uL (1.8-7.7) Lymphocytes # (Auto) 2.2 x10^3/uL (1.0-4.8) 2.0 x10^3/uL (1.0-4.8) Monocytes # (Auto) 0.6 x10^3/uL (0.0-1.1) 0.7 x10^3/uL (0.0-1.1) Eosinophils # (Auto) 0.2 x10^3/uL (0.0-0.7) 0.3 x10^3/uL (0.0-0.7) Basophils # (Auto) 0.1 x10^3/uL (0.0-0.2) 0.1 x10^3/uL (0.0-0.2) Urine Collection Type Unknown Urine Color Yellow Urine Clarity Clear Urine pH 7.5 Urine Specific [place] 1.015 Urine Protein Negative mg/dL (NEG-TRACE) Urine Glucose (UA) Negative mg/dL (NEG) Urine Ketones (Stick) Negative mg/dL (NEG) Urine Blood Negative (NEG) Urine Nitrite Negative (NEG) Urine Bilirubin Negative (NEG) Urine Urobilinogen Dipstick 1.0 mg/dL (0.2 mg/dL) Urine Leukocyte Esterase Trace (NEG) Urine RBC 1-2 /HPF (0-2) Urine WBC 1-4 /HPF (0-4) Urine Squamous Epithelial Cells Few /LPF Urine Bacteria 0 /HPF (0-FEW) Sodium Level 143 mmol/L (136-145) 140 mmol/L (136-145) Potassium Level 3.7 mmol/L (3.5-5.1) 3.8 mmol/L (3.5-5.1) Chloride Level 101 mmol/L (98-107) 104 mmol/L (98-107) Carbon Dioxide Level 28 mmol/L (21-32) 26 mmol/L (21-32) Anion Gap 14 (6-14) 10 (6-14) Blood Urea Nitrogen 11 mg/dL (8-26) 13 mg/dL (8-26) Creatinine 1.0 mg/dL (0.7-1.3) 1.0 mg/dL (0.7-1.3) Estimated GFR (Cockcroft-Gault) 82.8 82.8 Glucose Level 148 mg/dL (70-99) 111 mg/dL (70-99) Calcium Level 8.8 mg/dL (8.5-10.1) 8.1 mg/dL (8.5-10.1) Total Bilirubin 0.3 mg/dL (0.2-1.0) 0.4 mg/dL (0.2-1.0) Direct Bilirubin 0.1 mg/dL (0.0-0.2) Aspartate Amino Transf (AST/SGOT) 24 U/L (15-37) 21 U/L (15-37) Alanine Aminotransferase (ALT/SGPT) 32 U/L (16-63) 30 U/L (16-63) Alkaline Phosphatase 78 U/L (46-116) 72 U/L (46-116) Total Protein 8.1 g/dL (6.4-8.2) 7.5 g/dL (6.4-8.2) Albumin 3.9 g/dL (3.4-5.0) 3.6 g/dL (3.4-5.0) Lipase 122 U/L (73-393) Ethyl Alcohol Level 276 mg/dL (0-10) Stool Occult Blood Negative (NEG) Prothrombin Time 14.7 SEC (11.7-14.0) Prothromb Time International Ratio 1.2 (0.8-1.1) BUN/Creatinine Ratio 13 (6-20) Albumin/Globulin Ratio 0.9 (1.0-1.7) Medications Current Medications Morphine Sulfate (Morphine Sulfate) 6 mg 1X ONCE IV Last administered on at 16:03; Start 03/02/18 at 16:00; Stop 03/02/18 at 16:01; Status DC Ondansetron HCl (Zofran) 4 mg 1X ONCE IV Last administered on 03/02/18at 16:03 ; Start 03/02/18 at 16:00; Stop 03/02/18 at 16:01; Status DC Iohexol (Omnipaque 300 Mg/ml) 75 ml 1X ONCE IV Last administered on 03/02/18at 16:36; Start 03/02/18 at 16:15; Stop 03/02/18 at 16:16; Status DC Morphine Sulfate (Morphine Sulfate) 6 mg 1X ONCE IV Last administered on at 17:30; Start 03/02/18 at 17:15; Stop 03/02/18 at 17:16; Status DC Famotidine (Pepcid Vial) 20 mg 1X ONCE IVP Last administered on 03/02/18at 17: 24; Start 03/02/18 at 17:30; Stop 03/02/18 at 17:31; Status DC Multi-Ingredient Mouthwash/Gargle (Gi Cocktail) 20 ml 1X ONCE PO ; Start at 17:45; Stop 03/02/18 at 17:48; Status DC Lorazepam (Ativan) 1 mg 1X ONCE IV Last administered on 03/02/18at 20:24; Start 03/02/18 at 18:15; Stop 03/02/18 at 18:16; Status DC Ondansetron HCl (Zofran) 4 mg PRN Q8HRS PRN IV NAUSEA/VOMITING; Start 03/02/18 at 18:30; Stop 03/03/18 at 18:29 Morphine Sulfate (Morphine Sulfate) 6 mg PRN Q3HRS PRN IV PAIN Last administered on 03/03/18at 10:54; Start 03/02/18 at 18:30; Stop 03/03/18 at 18:29 Sodium Chloride 1,000 ml @ 100 mls/hr Q10H IV Last administered on 03/03/18at 05:59; Start 03/02/18 at 18:30; Stop 03/03/18 at 18:29 Lorazepam (Ativan) 1 mg PRN Q3HRS PRN IV ETOH withdrawal; Start 03/02/18 at 18: 30 Pantoprazole Sodium (PROTONIX VIAL for IV PUSH) 40 mg 1X ONCE IVP Last administered on 03/02/18at 20:09; Start 03/02/18 at 19:00; Stop 03/02/18 at 19:01 ; Status DC Albuterol/ Ipratropium (Duoneb) 3 ml Q2HR PRN NEB SHORTNESS OF BREATH; Start at 21:15; Status UNV Albuterol Sulfate (Ventolin Neb Soln) 2.5 mg PRN Q4HRS PRN NEB SHORTNESS OF BREATH; Start 03/02/18 at 21:30 Non-Formulary Medication (Budesonide/ Formoterol Fumarate (Symbicort 160-4.5 Mcg Inhaler)) 2 puff BID IH ; Start 03/03/18 at 09:00; Status UNV Pantoprazole Sodium (Protonix) 40 mg DAILYAC PO Last administered on 03/03/18at 05:59; Start 03/03/18 at 07:30 Theophylline (Theodur) 300 mg BID PO Last administered on 03/03/18at 10:30; Start 03/02/18 at 22:00 Budesonide (Pulmicort) 0.5 mg RTBID NEB Last administered on 03/03/18at 06:55; Start 03/03/18 at 08:00 Albuterol Sulfate (Ventolin Neb Soln) 2.5 mg RTQID NEB Last administered on at 11:04; Start 03/03/18 at 08:00 Multivitamins 10 ml/Thiamine HCl 100 mg/Folic Acid 1 mg/Sodium Chloride 1,011.2 ml @ 100 mls/ hr DAILY IV Last administered on 03/03/18at 08:27; Start at 09:00; Stop 03/07/18 at 19:07 Lorazepam (Ativan) 1 mg Q6H PO ; Start 03/02/18 at 22:00; Stop 03/02/18 at 22:09 ; Status DC Lorazepam (Ativan) 2 mg PRN Q1HR PRN IV For CIWA 8-14 Last administered on 03/03at 10:25; Start 03/02/18 at 22:00 Lorazepam (Ativan) 4 mg PRN Q1HR PRN IV For CIWA 15 or greater; Start 03/02/18 at 22:00 Haloperidol Lactate (Haldol Inj) 5 mg PRN Q4HRS PRN IVP Hallucinatns,Confusn, Delirium; Start 03/02/18 at 22:00 Diphenhydramine HCl (Benadryl) 25 mg PRN Q15MIN PRN IVP EPS symptoms 2'Haldol admin; Start 03/02/18 at 22:00 Chlordiazepoxide (Librium) 25 mg Q6HRS PO Last administered on 03/03/18at 05:59 ; Start 03/02/18 at 22:00 Lorazepam (Ativan) 1 mg Q6H PRN PO ANXIETY / AGITATION; Start 03/02/18 at 22:15 ; Status UNV Active Scripts Active Reported Proair Hfa Inhaler (Albuterol Sulfate) 8.5 Gm Hfa.aer.ad 1 Puff INH PRN Q4HRS PRN Duoneb 0.5-3(2.5) Mg/3 Ml (Albuterol/Ipratropium) 3 Ml Ampul.neb 3 Ml NEB Q2HR PRN Symbicort 160-4.5 Mcg Inhaler (Budesonide/Formoterol Fumarate) 10.2 Gm Hfa.aer.ad 2 Puff IH BID Prilosec Otc (Omeprazole Magnesium) 20 Mg Tablet.dr 1 Tab PO DAILY Theophylline (Theophylline Anhydrous) 400 Mg Tablet.er 300 Mg PO BID Vitals/I & O Vital Sign - Last 24 Hours 03/02/18 03/02/18 03/02/18 03/02/18 15:54 16:03 17:30 20:00 Temp 98.0 98.0 Pulse 96 Resp 16 28 24 B/P (MAP) 157/90 (112) Pulse Ox 95 95 O2 Delivery Room Air Room Air Room Air Room Air 03/02/18 03/02/18 03/02/18 03/02/18 20:07 23:00 23:22 23:25 Temp 97.7 97.7 Pulse 78 Resp 20 18 18 B/P (MAP) 143/90 (107) Pulse Ox 95 94 95 96 O2 Delivery Room Air Room Air Nasal Cannula Room Air 03/02/18 03/03/18 03/03/18 03/03/18 23:52 02:42 03:00 06:57 Temp 96.9 96.9 Pulse 72 Resp 18 20 19 B/P (MAP) 138/85 (102) Pulse Ox 96 93 97 O2 Delivery Room Air Room Air Room Air 03/03/18 03/03/18 03/03/18 03/03/18 07:00 07:12 07:45 10:54 Temp 98.1 98.1 Pulse 97 Resp 18 20 B/P (MAP) 167/96 (119) Pulse Ox 96 97 97 O2 Delivery Room Air Room Air Room Air Room Air 03/03/18 03/03/18 03/03/18 11:00 11:05 11:30 Temp 96.9 96.9 Pulse 93 Resp 18 B/P (MAP) 153/89 (110) Pulse Ox 97 97 O2 Delivery Room Air Room Air Room Air WILMAR OSBORN MD Mar 03, 2018 13:28
[2018-03-03] MEDS: diphenhydrAMINE 50 MG/ML VIAL IVP PRN (13:50)
[2018-03-03] MEDS: HALOPERIDOL LACTATE 5 MG/ML VIAL. IVP PRN (13:51)
[2018-03-03 15:00] VITALS: BP 143/81
[2018-03-03 19:00] VITALS: BP 148/94
[2018-03-03 23:00] VITALS: BP 109/59
[2018-03-04 03:01] VITALS: BP 136/62
[2018-03-04] MEDS: chlordiazePOXIDE HCL 25 MG CAPSULE PO SCH ×2 (05:45→13:30)
[2018-03-04 07:15] VITALS: BP 152/86
[2018-03-04] MEDS: ALBUTEROL SULFATE 2.5 MG/3 ML NEBU. NEB SCH ×4 (07:51→20:00)
[2018-03-04] MEDS: BUDESONIDE 0.5 MG/2 ML NEBU. NEB SCH ×2 (07:51→21:13)
[2018-03-04] MEDS: THEOPHYLLINE 12HR ER 300 MG TAB.ER.12H. PO SCH ×2 (08:09→20:44)
[2018-03-04] MEDS: PANTOPRAZOLE 40 MG TABLET.DR. PO SCH (08:09)
[2018-03-04] MEDS: MULTIVIT INFUSN,ADULT 4,VIT K 10 ML, THIAMINE 100 MG, FOLIC ACID 1 MG in IV NORMAL SALI... IV SCH (08:12)
[2018-03-04 09:26] LABS: BASO # 0.1 x10^3/uL (0.0-0.2); BASO % 1 % (0-3); EOS # 0.6 x10^3/uL (0.0-0.7); EOS % 9 % (0-3); HEMATOCRIT 37.1 % (39.0-53.0); HEMOGLOBIN 12.2 g/dL (13.0-17.5); LYMPH # 1.2 x10^3/uL (1.0-4.8); LYMPH % 18 % (24-48); MEAN CORPUSCULAR HEMOGLOBIN 25 pg (25-35); MEAN CORPUSCULAR HGB CONC 33 g/dL (31-37); MEAN CORPUSCULAR VOLUME 76 fL (79-100); MONO # 0.4 x10^3/uL (0.0-1.1); MONO % 7 % (0-9); NEUT # 4.3 x10^3uL (1.8-7.7); NEUT % 66 % (31-73); PLATELET COUNT 201 x10^3/uL (140-400); RED BLOOD COUNT 4.87 x10^6/uL (4.30-5.70); RED CELL DISTRIBUTION WIDTH 15.7 % (11.5-14.5); WHITE BLOOD COUNT 6.6 x10^3/uL (4.0-11.0)
[2018-03-04 09:51] LABS: ALBUMIN 3.2 g/dL (3.4-5.0); ALBUMIN/GLOBULIN RATIO 0.9 (1.0-1.7); CALCIUM 8.4 mg/dL (8.5-10.1); CREATININE 1.1 mg/dL (0.7-1.3); GFR 74.1; POTASSIUM 3.3 mmol/L (3.5-5.1); TOTAL BILIRUBIN 0.8 mg/dL (0.2-1.0); TOTAL PROTEIN 6.9 g/dL (6.4-8.2)
--- NOTE | 2018-03-04 10:28 | PDOC ---
PROGRESS NOTES Chief Complaint Chief Complaint acute gastritis EtOH abuse gastritis, esophagitis EtOH intoxication, acute encephalopathy auditory hallucination, acute EtOH withdrawl, tremor and tachycardia obesity, BMI 34 History of Present Illness History of Present Illness Librium sched PRn ativan haldol as need disoriented today, very ill, cont IV fluid and supportive measures Vitals Vitals Vital Signs Date Time Temp Pulse Resp B/P (MAP) Pulse Ox O2 Delivery O2 Flow Rate FiO2 03/04/18 07:52 98 Room Air 03/04/18 07:15 98.7 88 20 152/86 (108) 98.7 Physical Exam Physical Exam asterixis, some tremor, marked nystagmus 3 beat General: Alert, Oriented X3, Cooperative, mild distress, moderate distress Heart: Other (tachycardia) Lungs: Clear, Other Abdomen: Normal bowel sounds, Other (tender diffuse) Extremities: No clubbing, No edema, Normal pulses Skin: Other (small breakdown on forearms, mom reports she has a new puppy) Labs LABS Laboratory Tests Test 03/04/18 08:30 03/04/18 08:35 Sodium Level 136 mmol/L (136-145) Potassium Level 3.3 mmol/L (3.5-5.1) Chloride Level 102 mmol/L (98-107) Carbon Dioxide Level 27 mmol/L (21-32) Anion Gap 7 (6-14) Blood Urea Nitrogen 7 mg/dL (8-26) Creatinine 1.1 mg/dL (0.7-1.3) Estimated GFR (Cockcroft-Gault) 74.1 BUN/Creatinine Ratio 6 (6-20) Glucose Level 136 mg/dL (70-99) Calcium Level 8.4 mg/dL (8.5-10.1) Total Bilirubin 0.8 mg/dL (0.2-1.0) Aspartate Amino Transf (AST/SGOT) 26 U/L (15-37) Alanine Aminotransferase (ALT/SGPT) 33 U/L (16-63) Alkaline Phosphatase 84 U/L (46-116) Total Protein 6.9 g/dL (6.4-8.2) Albumin 3.2 g/dL (3.4-5.0) Albumin/Globulin Ratio 0.9 (1.0-1.7) White Blood Count 6.6 x10^3/uL (4.0-11.0) Red Blood Count 4.87 x10^6/uL (4.30-5.70) Hemoglobin 12.2 g/dL (13.0-17.5) Hematocrit 37.1 % (39.0-53.0) Mean Corpuscular Volume 76 fL (79-100) Mean Corpuscular Hemoglobin 25 pg (25-35) Mean Corpuscular Hemoglobin Concent 33 g/dL (31-37) Red Cell Distribution Width 15.7 % (11.5-14.5) Platelet Count 201 x10^3/uL (140-400) Neutrophils (%) (Auto) 66 % (31-73) Lymphocytes (%) (Auto) 18 % (24-48) Monocytes (%) (Auto) 7 % (0-9) Eosinophils (%) (Auto) 9 % (0-3) Basophils (%) (Auto) 1 % (0-3) Neutrophils # (Auto) 4.3 x10^3uL (1.8-7.7) Lymphocytes # (Auto) 1.2 x10^3/uL (1.0-4.8) Monocytes # (Auto) 0.4 x10^3/uL (0.0-1.1) Eosinophils # (Auto) 0.6 x10^3/uL (0.0-0.7) Basophils # (Auto) 0.1 x10^3/uL (0.0-0.2) Iron Level 283 ug/dL (65-175) Total Iron Binding Capacity 373 ug/dL (250-450) Iron Saturation 76 % (15-34) Comment Review of Relevant I have reviewed the following items wali (where applicable) has been applied. Labs Laboratory Tests Test 03/02/18 15:45 03/02/18 18:10 03/03/18 03:10 03/04/18 08:30 White Blood Count 8.3 x10^3/uL (4.0-11.0) 8.8 x10^3/uL (4.0-11.0) Red Blood Count 5.45 x10^6/uL (4.30-5.70) 4.98 x10^6/uL (4.30-5.70) Hemoglobin 13.9 g/dL (13.0-17.5) 12.7 g/dL (13.0-17.5) Hematocrit 41.4 % (39.0-53.0) 38.1 % (39.0-53.0) Mean Corpuscular Volume 76 fL (79-100) 77 fL (79-100) Mean Corpuscular Hemoglobin 26 pg (25-35) 25 pg (25-35) Mean Corpuscular Hemoglobin Concent 34 g/dL (31-37) 33 g/dL (31-37) Red Cell Distribution Width 16.2 % (11.5-14.5) 16.3 % (11.5-14.5) Platelet Count 335 x10^3/uL (140-400) 280 x10^3/uL (140-400) Neutrophils (%) (Auto) 62 % (31-73) 65 % (31-73) Lymphocytes (%) (Auto) 27 % (24-48) 23 % (24-48) Monocytes (%) (Auto) 8 % (0-9) 8 % (0-9) Eosinophils (%) (Auto) 3 % (0-3) 4 % (0-3) Basophils (%) (Auto) 1 % (0-3) 1 % (0-3) Neutrophils # (Auto) 5.1 x10^3uL (1.8-7.7) 5.7 x10^3uL (1.8-7.7) Lymphocytes # (Auto) 2.2 x10^3/uL (1.0-4.8) 2.0 x10^3/uL (1.0-4.8) Monocytes # (Auto) 0.6 x10^3/uL (0.0-1.1) 0.7 x10^3/uL (0.0-1.1) Eosinophils # (Auto) 0.2 x10^3/uL (0.0-0.7) 0.3 x10^3/uL (0.0-0.7) Basophils # (Auto) 0.1 x10^3/uL (0.0-0.2) 0.1 x10^3/uL (0.0-0.2) Urine Collection Type Unknown Urine Color Yellow Urine Clarity Clear Urine pH 7.5 Urine Specific [place] 1.015 Urine Protein Negative mg/dL (NEG-TRACE) Urine Glucose (UA) Negative mg/dL (NEG) Urine Ketones (Stick) Negative mg/dL (NEG) Urine Blood Negative (NEG) Urine Nitrite Negative (NEG) Urine Bilirubin Negative (NEG) Urine Urobilinogen Dipstick 1.0 mg/dL (0.2 mg/dL) Urine Leukocyte Esterase Trace (NEG) Urine RBC 1-2 /HPF (0-2) Urine WBC 1-4 /HPF (0-4) Urine Squamous Epithelial Cells Few /LPF Urine Bacteria 0 /HPF (0-FEW) Sodium Level 143 mmol/L (136-145) 140 mmol/L (136-145) 136 mmol/L (136-145) Potassium Level 3.7 mmol/L (3.5-5.1) 3.8 mmol/L (3.5-5.1) 3.3 mmol/L (3.5-5.1) Chloride Level 101 mmol/L (98-107) 104 mmol/L (98-107) 102 mmol/L (98-107) Carbon Dioxide Level 28 mmol/L (21-32) 26 mmol/L (21-32) 27 mmol/L (21-32) Anion Gap 14 (6-14) 10 (6-14) 7 (6-14) Blood Urea Nitrogen 11 mg/dL (8-26) 13 mg/dL (8-26) 7 mg/dL (8-26) Creatinine 1.0 mg/dL (0.7-1.3) 1.0 mg/dL (0.7-1.3) 1.1 mg/dL (0.7-1.3) Estimated GFR (Cockcroft-Gault) 82.8 82.8 74.1 Glucose Level 148 mg/dL (70-99) 111 mg/dL (70-99) 136 mg/dL (70-99) Calcium Level 8.8 mg/dL (8.5-10.1) 8.1 mg/dL (8.5-10.1) 8.4 mg/dL (8.5-10.1) Total Bilirubin 0.3 mg/dL (0.2-1.0) 0.4 mg/dL (0.2-1.0) 0.8 mg/dL (0.2-1.0) Direct Bilirubin 0.1 mg/dL (0.0-0.2) Aspartate Amino Transf (AST/SGOT) 24 U/L (15-37) 21 U/L (15-37) 26 U/L (15-37) Alanine Aminotransferase (ALT/SGPT) 32 U/L (16-63) 30 U/L (16-63) 33 U/L (16-63) Alkaline Phosphatase 78 U/L (46-116) 72 U/L (46-116) 84 U/L (46-116) Total Protein 8.1 g/dL (6.4-8.2) 7.5 g/dL (6.4-8.2) 6.9 g/dL (6.4-8.2) Albumin 3.9 g/dL (3.4-5.0) 3.6 g/dL (3.4-5.0) 3.2 g/dL (3.4-5.0) Lipase 122 U/L (73-393) Ethyl Alcohol Level 276 mg/dL (0-10) Stool Occult Blood Negative (NEG) Prothrombin Time 14.7 SEC (11.7-14.0) Prothromb Time International Ratio 1.2 (0.8-1.1) BUN/Creatinine Ratio 13 (6-20) 6 (6-20) Albumin/Globulin Ratio 0.9 (1.0-1.7) 0.9 (1.0-1.7) Test 03/04/18 08:35 White Blood Count 6.6 x10^3/uL (4.0-11.0) Red Blood Count 4.87 x10^6/uL (4.30-5.70) Hemoglobin 12.2 g/dL (13.0-17.5) Hematocrit 37.1 % (39.0-53.0) Mean Corpuscular Volume 76 fL (79-100) Mean Corpuscular Hemoglobin 25 pg (25-35) Mean Corpuscular Hemoglobin Concent 33 g/dL (31-37) Red Cell Distribution Width 15.7 % (11.5-14.5) Platelet Count 201 x10^3/uL (140-400) Neutrophils (%) (Auto) 66 % (31-73) Lymphocytes (%) (Auto) 18 % (24-48) Monocytes (%) (Auto) 7 % (0-9) Eosinophils (%) (Auto) 9 % (0-3) Basophils (%) (Auto) 1 % (0-3) Neutrophils # (Auto) 4.3 x10^3uL (1.8-7.7) Lymphocytes # (Auto) 1.2 x10^3/uL (1.0-4.8) Monocytes # (Auto) 0.4 x10^3/uL (0.0-1.1) Eosinophils # (Auto) 0.6 x10^3/uL (0.0-0.7) Basophils # (Auto) 0.1 x10^3/uL (0.0-0.2) Iron Level 283 ug/dL (65-175) Total Iron Binding Capacity 373 ug/dL (250-450) Iron Saturation 76 % (15-34) Laboratory Tests Test 03/04/18 08:30 03/04/18 08:35 Sodium Level 136 mmol/L (136-145) Potassium Level 3.3 mmol/L (3.5-5.1) Chloride Level 102 mmol/L (98-107) Carbon Dioxide Level 27 mmol/L (21-32) Anion Gap 7 (6-14) Blood Urea Nitrogen 7 mg/dL (8-26) Creatinine 1.1 mg/dL (0.7-1.3) Estimated GFR (Cockcroft-Gault) 74.1 BUN/Creatinine Ratio 6 (6-20) Glucose Level 136 mg/dL (70-99) Calcium Level 8.4 mg/dL (8.5-10.1) Total Bilirubin 0.8 mg/dL (0.2-1.0) Aspartate Amino Transf (AST/SGOT) 26 U/L (15-37) Alanine Aminotransferase (ALT/SGPT) 33 U/L (16-63) Alkaline Phosphatase 84 U/L (46-116) Total Protein 6.9 g/dL (6.4-8.2) Albumin 3.2 g/dL (3.4-5.0) Albumin/Globulin Ratio 0.9 (1.0-1.7) White Blood Count 6.6 x10^3/uL (4.0-11.0) Red Blood Count 4.87 x10^6/uL (4.30-5.70) Hemoglobin 12.2 g/dL (13.0-17.5) Hematocrit 37.1 % (39.0-53.0) Mean Corpuscular Volume 76 fL (79-100) Mean Corpuscular Hemoglobin 25 pg (25-35) Mean Corpuscular Hemoglobin Concent 33 g/dL (31-37) Red Cell Distribution Width 15.7 % (11.5-14.5) Platelet Count 201 x10^3/uL (140-400) Neutrophils (%) (Auto) 66 % (31-73) Lymphocytes (%) (Auto) 18 % (24-48) Monocytes (%) (Auto) 7 % (0-9) Eosinophils (%) (Auto) 9 % (0-3) Basophils (%) (Auto) 1 % (0-3) Neutrophils # (Auto) 4.3 x10^3uL (1.8-7.7) Lymphocytes # (Auto) 1.2 x10^3/uL (1.0-4.8) Monocytes # (Auto) 0.4 x10^3/uL (0.0-1.1) Eosinophils # (Auto) 0.6 x10^3/uL (0.0-0.7) Basophils # (Auto) 0.1 x10^3/uL (0.0-0.2) Iron Level 283 ug/dL (65-175) Total Iron Binding Capacity 373 ug/dL (250-450) Iron Saturation 76 % (15-34) Medications Current Medications Morphine Sulfate (Morphine Sulfate) 6 mg 1X ONCE IV Last administered on at 16:03; Start 03/02/18 at 16:00; Stop 03/02/18 at 16:01; Status DC Ondansetron HCl (Zofran) 4 mg 1X ONCE IV Last administered on 03/02/18at 16:03 ; Start 03/02/18 at 16:00; Stop 03/02/18 at 16:01; Status DC Iohexol (Omnipaque 300 Mg/ml) 75 ml 1X ONCE IV Last administered on 03/02/18at 16:36; Start 03/02/18 at 16:15; Stop 03/02/18 at 16:16; Status DC Morphine Sulfate (Morphine Sulfate) 6 mg 1X ONCE IV Last administered on at 17:30; Start 03/02/18 at 17:15; Stop 03/02/18 at 17:16; Status DC Famotidine (Pepcid Vial) 20 mg 1X ONCE IVP Last administered on 03/02/18at 17: 24; Start 03/02/18 at 17:30; Stop 03/02/18 at 17:31; Status DC Multi-Ingredient Mouthwash/Gargle (Gi Cocktail) 20 ml 1X ONCE PO ; Start at 17:45; Stop 03/02/18 at 17:48; Status DC Lorazepam (Ativan) 1 mg 1X ONCE IV Last administered on 03/02/18at 20:24; Start 03/02/18 at 18:15; Stop 03/02/18 at 18:16; Status DC Ondansetron HCl (Zofran) 4 mg PRN Q8HRS PRN IV NAUSEA/VOMITING; Start 03/02/18 at 18:30; Stop 03/03/18 at 18:29; Status DC Morphine Sulfate (Morphine Sulfate) 6 mg PRN Q3HRS PRN IV PAIN Last administered on 03/03/18at 17:40; Start 03/02/18 at 18:30; Stop 03/03/18 at 18:29 ; Status DC Sodium Chloride 1,000 ml @ 100 mls/hr Q10H IV Last administered on 03/03/18at 05:59; Start 03/02/18 at 18:30; Stop 03/03/18 at 18:29; Status DC Lorazepam (Ativan) 1 mg PRN Q3HRS PRN IV ETOH withdrawal; Start 03/02/18 at 18: 30; Stop 03/03/18 at 15:10; Status DC Pantoprazole Sodium (PROTONIX VIAL for IV PUSH) 40 mg 1X ONCE IVP Last administered on 03/02/18at 20:09; Start 03/02/18 at 19:00; Stop 03/02/18 at 19:01 ; Status DC Albuterol/ Ipratropium (Duoneb) 3 ml Q2HR PRN NEB SHORTNESS OF BREATH; Start at 21:15; Status UNV Albuterol Sulfate (Ventolin Neb Soln) 2.5 mg PRN Q4HRS PRN NEB SHORTNESS OF BREATH; Start 03/02/18 at 21:30 Non-Formulary Medication (Budesonide/ Formoterol Fumarate (Symbicort 160-4.5 Mcg Inhaler)) 2 puff BID IH ; Start 03/03/18 at 09:00; Status UNV Pantoprazole Sodium (Protonix) 40 mg DAILYAC PO Last administered on 03/04/18at 08:09; Start 03/03/18 at 07:30 Theophylline (Theodur) 300 mg BID PO Last administered on 03/04/18 08:09; Start 03/02/18 at 22:00 Budesonide (Pulmicort) 0.5 mg RTBID NEB Last administered on 03/04/18 07:51; Start 03/03/18 at 08:00 Albuterol Sulfate (Ventolin Neb Soln) 2.5 mg RTQID NEB Last administered on 07:51; Start 03/03/18 at 08:00 Multivitamins 10 ml/Thiamine HCl 100 mg/Folic Acid 1 mg/Sodium Chloride 1,011.2 ml @ 100 mls/ hr DAILY IV Last administered on 03/04/18at 08:12; Start at 09:00; Stop 03/07/18 at 19:07 Lorazepam (Ativan) 1 mg Q6H PO ; Start 03/02/18 at 22:00; Stop 03/02/18 at 22:09 ; Status DC Lorazepam (Ativan) 2 mg PRN Q1HR PRN IV For CIWA 8-14 Last administered on 03/03at 23:27; Start 03/02/18 at 22:00 Lorazepam (Ativan) 4 mg PRN Q1HR PRN IV For CIWA 15 or greater Last administered on 03/03/18at 16:15; Start 03/02/18 at 22:00 Haloperidol Lactate (Haldol Inj) 5 mg PRN Q4HRS PRN IVP Hallucinatns,Confusn, Delirium Last administered on 03/03/18 13:51; Start 03/02/18 at 22:00 Diphenhydramine HCl (Benadryl) 25 mg PRN Q15MIN PRN IVP EPS symptoms 2'Haldol admin Last administered on 03/03/18 13:50; Start 03/02/18 at 22:00 Chlordiazepoxide (Librium) 25 mg Q6HRS PO Last administered on 8/22/18at 05:45 ; Start 03/02/18 at 22:00 Lorazepam (Ativan) 1 mg Q6H PRN PO ANXIETY / AGITATION; Start 03/02/18 at 22:15 ; Status UNV Active Scripts Active Reported Proair Hfa Inhaler (Albuterol Sulfate) 8.5 Gm Hfa.aer.ad 1 Puff INH PRN Q4HRS PRN Duoneb 0.5-3(2.5) Mg/3 Ml (Albuterol/Ipratropium) 3 Ml Ampul.neb 3 Ml NEB Q2HR PRN Symbicort 160-4.5 Mcg Inhaler (Budesonide/Formoterol Fumarate) 10.2 Gm Hfa.aer.ad 2 Puff IH BID Prilosec Otc (Omeprazole Magnesium) 20 Mg Tablet.dr 1 Tab PO DAILY Theophylline (Theophylline Anhydrous) 400 Mg Tablet.er 300 Mg PO BID Vitals/I & O Vital Sign - Last 24 Hours 03/03/18 03/03/18 03/03/18 03/03/18 10:54 11:00 11:05 13:50 Temp 96.9 96.9 Pulse 93 Resp 18 B/P (MAP) 153/89 (110) Pulse Ox 97 97 97 O2 Delivery Room Air Room Air Room Air Room Air 03/03/18 03/03/18 03/03/18 03/03/18 15:00 17:40 18:22 19:00 Temp 98.1 97.7 98.1 97.7 Pulse 84 74 Resp 18 20 B/P (MAP) 143/81 (101) 148/94 (112) Pulse Ox 98 97 97 99 O2 Delivery Room Air Room Air Room Air Room Air 03/03/18 03/03/18 03/03/18 03/04/18 19:19 20:00 23:00 03:01 Temp 97.2 97.5 97.2 97.5 Pulse 83 72 Resp 20 20 B/P (MAP) 109/59 (76) 136/62 (86) Pulse Ox 96 93 O2 Delivery Room Air Room Air Room Air Room Air 03/04/18 03/04/18 03/04/18 03/04/18 05:13 07:15 07:30 07:52 Temp 98.7 98.7 Pulse 65 88 Resp 20 B/P (MAP) 152/86 (108) Pulse Ox 97 97 98 O2 Delivery Room Air Room Air Room Air Room Air Intake and Output 03/03/18 03/03/18 03/04/18 15:00 23:00 07:00 Intake Total 460 ml Output Total 600 ml Balance 460 ml -600 ml WILMAR OSBORN MD Mar 04, 2018 10:28
[2018-03-04] MEDS ORDERED: MAGNESIUM SULFATE 2GM 50 ML IV ONE (10:30)
[2018-03-04] MEDS ORDERED: POTASSIUM CHLORIDE 20 MEQ TABLET.ER. PO ONE (10:30)
[2018-03-04 11:15] VITALS: BP 127/67
[2018-03-04] MEDS: diazePAM 5 MG TABLET PO SCH ×2 (14:00→20:44)
[2018-03-04] MEDS ORDERED: HALOPERIDOL LACTATE 5 MG/ML VIAL. IVP ONE (15:00)
[2018-03-04 15:03] VITALS: BP 147/93
[2018-03-04] MEDS: diphenhydrAMINE 50 MG/ML VIAL IVP PRN ×2 (15:07→21:23)
[2018-03-04 19:00] VITALS: BP 129/71
[2018-03-04] MEDS: HALOPERIDOL LACTATE 5 MG/ML VIAL. IVP PRN (21:23)
[2018-03-04 23:00] VITALS: BP 151/73
[2018-03-05 03:00] VITALS: BP 123/76
[2018-03-05] MEDS: HALOPERIDOL LACTATE 5 MG/ML VIAL. IVP PRN (05:03)
[2018-03-05 07:15] VITALS: BP 122/78
[2018-03-05] MEDS: BUDESONIDE 0.5 MG/2 ML NEBU. NEB SCH (07:33)
[2018-03-05] MEDS: ALBUTEROL SULFATE 2.5 MG/3 ML NEBU. NEB SCH ×2 (07:33→10:52)
[2018-03-05] MEDS: THEOPHYLLINE 12HR ER 300 MG TAB.ER.12H. PO SCH (09:57)
[2018-03-05] MEDS: diazePAM 5 MG TABLET PO SCH ×2 (09:58→12:22)
[2018-03-05] MEDS: PANTOPRAZOLE 40 MG TABLET.DR. PO SCH (09:58)
[2018-03-05] MEDS: MULTIVIT INFUSN,ADULT 4,VIT K 10 ML, THIAMINE 100 MG, FOLIC ACID 1 MG in IV NORMAL SALI... IV SCH (09:59)
--- NOTE | 2018-03-05 10:18 | PDOC ---
PROGRESS NOTES Chief Complaint Chief Complaint EtOH intoxication, acute encephalopathy with active EtOH withdrawl delirium auditory hallucination, acute EtOH withdrawl, tremor a acute gastritis EtOH abuse gastritis, esophagitis obesity, BMI 34 History of Present Illness History of Present Illness valium scheduled ativan PRN, additional doses needed haldol as need disoriented today, and lethargic very ill, cont IV fluid and supportive measures Vitals Vitals Vital Signs Date Time Temp Pulse Resp B/P (MAP) Pulse Ox O2 Delivery O2 Flow Rate FiO2 03/05/18 07:34 96 Room Air 03/05/18 07:15 98.7 74 20 122/78 (93) 98.7 Physical Exam Physical Exam asterixis, some tremor, marked nystagmus 3 beat General: Alert, Oriented X3, Cooperative, mild distress, moderate distress Heart: Other (tachycardia) Lungs: Clear, Other Abdomen: Normal bowel sounds, Other (tender diffuse) Extremities: No clubbing, No edema, Normal pulses Skin: Other (small breakdown on forearms, mom reports she has a new puppy) Comment Review of Relevant I have reviewed the following items wali (where applicable) has been applied. Labs Laboratory Tests Test 03/04/18 08:30 03/04/18 08:35 Sodium Level 136 mmol/L (136-145) Potassium Level 3.3 mmol/L (3.5-5.1) Chloride Level 102 mmol/L (98-107) Carbon Dioxide Level 27 mmol/L (21-32) Anion Gap 7 (6-14) Blood Urea Nitrogen 7 mg/dL (8-26) Creatinine 1.1 mg/dL (0.7-1.3) Estimated GFR (Cockcroft-Gault) 74.1 BUN/Creatinine Ratio 6 (6-20) Glucose Level 136 mg/dL (70-99) Calcium Level 8.4 mg/dL (8.5-10.1) Total Bilirubin 0.8 mg/dL (0.2-1.0) Aspartate Amino Transf (AST/SGOT) 26 U/L (15-37) Alanine Aminotransferase (ALT/SGPT) 33 U/L (16-63) Alkaline Phosphatase 84 U/L (46-116) Total Protein 6.9 g/dL (6.4-8.2) Albumin 3.2 g/dL (3.4-5.0) Albumin/Globulin Ratio 0.9 (1.0-1.7) White Blood Count 6.6 x10^3/uL (4.0-11.0) Red Blood Count 4.87 x10^6/uL (4.30-5.70) Hemoglobin 12.2 g/dL (13.0-17.5) Hematocrit 37.1 % (39.0-53.0) Mean Corpuscular Volume 76 fL (79-100) Mean Corpuscular Hemoglobin 25 pg (25-35) Mean Corpuscular Hemoglobin Concent 33 g/dL (31-37) Red Cell Distribution Width 15.7 % (11.5-14.5) Platelet Count 201 x10^3/uL (140-400) Neutrophils (%) (Auto) 66 % (31-73) Lymphocytes (%) (Auto) 18 % (24-48) Monocytes (%) (Auto) 7 % (0-9) Eosinophils (%) (Auto) 9 % (0-3) Basophils (%) (Auto) 1 % (0-3) Neutrophils # (Auto) 4.3 x10^3uL (1.8-7.7) Lymphocytes # (Auto) 1.2 x10^3/uL (1.0-4.8) Monocytes # (Auto) 0.4 x10^3/uL (0.0-1.1) Eosinophils # (Auto) 0.6 x10^3/uL (0.0-0.7) Basophils # (Auto) 0.1 x10^3/uL (0.0-0.2) Iron Level 283 ug/dL (65-175) Total Iron Binding Capacity 373 ug/dL (250-450) Iron Saturation 76 % (15-34) Medications Current Medications Morphine Sulfate (Morphine Sulfate) 6 mg 1X ONCE IV Last administered on at 16:03; Start 03/02/18 at 16:00; Stop 03/02/18 at 16:01; Status DC Ondansetron HCl (Zofran) 4 mg 1X ONCE IV Last administered on 03/02/18at 16:03 ; Start 03/02/18 at 16:00; Stop 03/02/18 at 16:01; Status DC Iohexol (Omnipaque 300 Mg/ml) 75 ml 1X ONCE IV Last administered on 03/02/18at 16:36; Start 03/02/18 at 16:15; Stop 03/02/18 at 16:16; Status DC Morphine Sulfate (Morphine Sulfate) 6 mg 1X ONCE IV Last administered on at 17:30; Start 03/02/18 at 17:15; Stop 03/02/18 at 17:16; Status DC Famotidine (Pepcid Vial) 20 mg 1X ONCE IVP Last administered on 03/02/18at 17: 24; Start 03/02/18 at 17:30; Stop 03/02/18 at 17:31; Status DC Multi-Ingredient Mouthwash/Gargle (Gi Cocktail) 20 ml 1X ONCE PO ; Start at 17:45; Stop 03/02/18 at 17:48; Status DC Lorazepam (Ativan) 1 mg 1X ONCE IV Last administered on 03/02/18at 20:24; Start 03/02/18 at 18:15; Stop 03/02/18 at 18:16; Status DC Ondansetron HCl (Zofran) 4 mg PRN Q8HRS PRN IV NAUSEA/VOMITING; Start 03/02/18 at 18:30; Stop 03/03/18 at 18:29; Status DC Morphine Sulfate (Morphine Sulfate) 6 mg PRN Q3HRS PRN IV PAIN Last administered on 03/03/18at 17:40; Start 03/02/18 at 18:30; Stop 03/03/18 at 18:29 ; Status DC Sodium Chloride 1,000 ml @ 100 mls/hr Q10H IV Last administered on 03/03/18at 05:59; Start 03/02/18 at 18:30; Stop 03/03/18 at 18:29; Status DC Lorazepam (Ativan) 1 mg PRN Q3HRS PRN IV ETOH withdrawal; Start 03/02/18 at 18: 30; Stop 03/03/18 at 15:10; Status DC Pantoprazole Sodium (PROTONIX VIAL for IV PUSH) 40 mg 1X ONCE IVP Last administered on 03/02/18at 20:09; Start 03/02/18 at 19:00; Stop 03/02/18 at 19:01 ; Status DC Albuterol/ Ipratropium (Duoneb) 3 ml Q2HR PRN NEB SHORTNESS OF BREATH; Start at 21:15; Status UNV Albuterol Sulfate (Ventolin Neb Soln) 2.5 mg PRN Q4HRS PRN NEB SHORTNESS OF BREATH; Start 03/02/18 at 21:30 Non-Formulary Medication (Budesonide/ Formoterol Fumarate (Symbicort 160-4.5 Mcg Inhaler)) 2 puff BID IH ; Start 03/03/18 at 09:00; Status UNV Pantoprazole Sodium (Protonix) 40 mg DAILYAC PO Last administered on 03/05/18 09:58; Start 03/03/18 at 07:30 Theophylline (Theodur) 300 mg BID PO Last administered on 03/05/18 09:57; Start 03/02/18 at 22:00 Budesonide (Pulmicort) 0.5 mg RTBID NEB Last administered on 03/05/18 07:33; Start 03/03/18 at 08:00 Albuterol Sulfate (Ventolin Neb Soln) 2.5 mg RTQID NEB Last administered on at 07:33; Start 03/03/18 at 08:00 Multivitamins 10 ml/Thiamine HCl 100 mg/Folic Acid 1 mg/Sodium Chloride 1,011.2 ml @ 100 mls/ hr DAILY IV Last administered on 03/05/18at 09:59; Start at 09:00; Stop 03/07/18 at 19:07 Lorazepam (Ativan) 1 mg Q6H PO ; Start 03/02/18 at 22:00; Stop 03/02/18 at 22:09 ; Status DC Lorazepam (Ativan) 2 mg PRN Q1HR PRN IV For CIWA 8-14 Last administered on 03/05 05:04; Start 03/02/18 at 22:00 Lorazepam (Ativan) 4 mg PRN Q1HR PRN IV For CIWA 15 or greater Last administered on 03/05/18at 09:58; Start 03/02/18 at 22:00 Haloperidol Lactate (Haldol Inj) 5 mg PRN Q4HRS PRN IVP Hallucinatns,Confusn, Delirium Last administered on 03/05/18at 05:03; Start 03/02/18 at 22:00 Diphenhydramine HCl (Benadryl) 25 mg PRN Q15MIN PRN IVP EPS symptoms 2'Haldol admin Last administered on 03/04/18at 21:23; Start 03/02/18 at 22:00 Chlordiazepoxide (Librium) 25 mg Q6HRS PO Last administered on 03/04/18at 13:30 ; Start 03/02/18 at 22:00; Stop 03/04/18 at 13:46; Status DC Lorazepam (Ativan) 1 mg Q6H PRN PO ANXIETY / AGITATION; Start 03/02/18 at 22:15 ; Status UNV Potassium Chloride (Klor-Con) 40 meq 1X ONCE PO Last administered on at 10:58; Start 03/04/18 at 10:30; Stop 03/04/18 at 10:32; Status DC Magnesium Sulfate 50 ml @ 25 mls/hr 1X ONCE IV Last administered on 03/04/18at 10:58; Start 03/04/18 at 10:30; Stop 03/04/18 at 12:29; Status DC Lorazepam (Ativan) 4 mg 1X ONCE IV Last administered on 03/04/18at 14:05; Start 03/04/18 at 14:00; Stop 03/04/18 at 14:01; Status DC Diazepam (Valium) 5 mg TID PO Last administered on 03/05/18at 09:58; Start 03/04 at 14:00 Haloperidol Lactate (Haldol Inj) 5 mg 1X ONCE IVP Last administered on at 15:06; Start 03/04/18 at 15:00; Stop 03/04/18 at 15:01; Status DC Lorazepam (Ativan) 4 mg 1X ONCE IV Last administered on 03/04/18at 15:07; Start 03/04/18 at 15:00; Stop 03/04/18 at 15:02; Status DC Active Scripts Active Reported Proair Hfa Inhaler (Albuterol Sulfate) 8.5 Gm Hfa.aer.ad 1 Puff INH PRN Q4HRS PRN Duoneb 0.5-3(2.5) Mg/3 Ml (Albuterol/Ipratropium) 3 Ml Ampul.neb 3 Ml NEB Q2HR PRN Symbicort 160-4.5 Mcg Inhaler (Budesonide/Formoterol Fumarate) 10.2 Gm Hfa.aer.ad 2 Puff IH BID Prilosec Otc (Omeprazole Magnesium) 20 Mg Tablet.dr 1 Tab PO DAILY Theophylline (Theophylline Anhydrous) 400 Mg Tablet.er 300 Mg PO BID Vitals/I & O Vital Sign - Last 24 Hours 03/04/18 03/04/18 03/04/18 03/04/18 10:54 11:15 14:48 15:03 Temp 98.3 97.9 98.3 97.9 Pulse 70 100 Resp 18 18 B/P (MAP) 127/67 (87) 147/93 (111) Pulse Ox 96 96 O2 Delivery Room Air Room Air Room Air Room Air 03/04/18 03/04/18 03/04/18 03/04/18 19:00 20:00 20:25 20:30 Temp 97.9 97.9 Pulse 100 Resp 18 B/P (MAP) 129/71 (90) Pulse Ox 96 98 98 O2 Delivery Room Air Room Air Room Air Room Air 03/04/18 03/05/18 03/05/18 03/05/18 23:00 03:00 07:15 07:34 Temp 97.9 97.5 98.7 97.9 97.5 98.7 Pulse 78 71 74 Resp 18 18 20 B/P (MAP) 151/73 (99) 123/76 (92) 122/78 (93) Pulse Ox 93 97 97 96 O2 Delivery Room Air Room Air Room Air Room Air Intake and Output 03/04/18 03/04/18 03/05/18 15:00 23:00 07:00 Intake Total 1000 ml 100 ml Output Total 150 ml 300 ml Balance -150 ml 700 ml 100 ml WILMAR OSBORN MD Mar 05, 2018 10:18
[2018-03-05 11:10] VITALS: BP 127/74
[2018-03-05] MEDS ORDERED: DIAZ5TAB4 PO (12:15)
--- NOTE | 2018-03-05 12:18 | PDOC3 ---
Discharge Summary Visit Information Date of Admission: Mar 02, 2018 Date of Discharge: Mar 05, 2018 Admitting Diagnosis: delirium Final Diagnosis EtOH intoxication, acute encephalopathy with active EtOH withdrawl delirium auditory hallucination, acute EtOH withdrawl, tremor a acute gastritis EtOH abuse gastritis, esophagitis obesity, BMI 34 Brief Hospital Course Allergies Allergies Coded Allergies Type Severity Reaction Last Updated Verified No Known Drug Allergies 04/30/16 No Vital Signs Vital Signs Date Time Temp Pulse Resp B/P (MAP) Pulse Ox O2 Delivery O2 Flow Rate FiO2 03/05/18 11:10 97.2 76 18 127/74 (91) 96 Room Air 97.2 Lab Results Laboratory Tests Test 03/04/18 08:30 03/04/18 08:35 Sodium Level 136 mmol/L (136-145) Potassium Level 3.3 mmol/L (3.5-5.1) Chloride Level 102 mmol/L (98-107) Carbon Dioxide Level 27 mmol/L (21-32) Anion Gap 7 (6-14) Blood Urea Nitrogen 7 mg/dL (8-26) Creatinine 1.1 mg/dL (0.7-1.3) Estimated GFR (Cockcroft-Gault) 74.1 BUN/Creatinine Ratio 6 (6-20) Glucose Level 136 mg/dL (70-99) Calcium Level 8.4 mg/dL (8.5-10.1) Total Bilirubin 0.8 mg/dL (0.2-1.0) Aspartate Amino Transf (AST/SGOT) 26 U/L (15-37) Alanine Aminotransferase (ALT/SGPT) 33 U/L (16-63) Alkaline Phosphatase 84 U/L (46-116) Total Protein 6.9 g/dL (6.4-8.2) Albumin 3.2 g/dL (3.4-5.0) Albumin/Globulin Ratio 0.9 (1.0-1.7) White Blood Count 6.6 x10^3/uL (4.0-11.0) Red Blood Count 4.87 x10^6/uL (4.30-5.70) Hemoglobin 12.2 g/dL (13.0-17.5) Hematocrit 37.1 % (39.0-53.0) Mean Corpuscular Volume 76 fL (79-100) Mean Corpuscular Hemoglobin 25 pg (25-35) Mean Corpuscular Hemoglobin Concent 33 g/dL (31-37) Red Cell Distribution Width 15.7 % (11.5-14.5) Platelet Count 201 x10^3/uL (140-400) Neutrophils (%) (Auto) 66 % (31-73) Lymphocytes (%) (Auto) 18 % (24-48) Monocytes (%) (Auto) 7 % (0-9) Eosinophils (%) (Auto) 9 % (0-3) Basophils (%) (Auto) 1 % (0-3) Neutrophils # (Auto) 4.3 x10^3uL (1.8-7.7) Lymphocytes # (Auto) 1.2 x10^3/uL (1.0-4.8) Monocytes # (Auto) 0.4 x10^3/uL (0.0-1.1) Eosinophils # (Auto) 0.6 x10^3/uL (0.0-0.7) Basophils # (Auto) 0.1 x10^3/uL (0.0-0.2) Iron Level 283 ug/dL (65-175) Total Iron Binding Capacity 373 ug/dL (250-450) Iron Saturation 76 % (15-34) Brief Hospital Course Mr. Osborn is a 42 old acute EtOh intox, wanting detox, then withdrawl, delirium, hallucinations, tremor, better at 03/05, nystagmus and asterixis gone. still lethargic, po intake mostly poor, DC with Valium daily, he will live with his mother for the time being Discharge Information Condition at Discharge: Improved Follow Up: Weeks Disposition/Orders: D/C to Home Scheduled Budesonide/Formoterol Fumarate (Symbicort 160-4.5 Mcg Inhaler) 10.2 Gm Hfa.aer.ad, 2 PUFF IH BID, #10.6 Ref 3 (Reported) Entered as Reported by: RIKA RIVERA on 08/13/162326 Last Action: Converted on 03/02/182115 by FIONA CATHERINE Diazepam (Diazepam) 5 Mg Tablet, 5 MG PO DAILY, #30 Prescribed by: WILMAR OSBORN on 03/05/18 1215 Omeprazole Magnesium (Prilosec Otc) 20 Mg Tablet.dr, 1 TAB PO DAILY, #30 Ref 3 ( Reported) Entered as Reported by: FELICIANO KNOX on 04/30/161847 Last Action: Converted on 03/02/182115 by FIONA CATHERINE Theophylline Anhydrous (Theophylline) 400 Mg Tablet.er, 300 MG PO BID, (Reported ) Entered as Reported by: ALBERTINA MURILLO on 08/20/132034 Last Action: Converted on 03/02/182115 by FIONA CATHERINE Scheduled PRN Albuterol Sulfate (Proair Hfa Inhaler) 8.5 Gm Hfa.aer.ad, 1 PUFF INH PRN Q4HRS PRN for SHORTNESS OF BREATH, Ref 0 (Reported) Entered as Reported by: FIONA CATHERINE on 03/02/182058 Last Action: Converted on 03/02/182115 by FIONA CATHERINE Ipratropium/Albuterol Sulfate (Duoneb 0.5-3(2.5) Mg/3 Ml) 3 Ml Ampul.neb, 3 ML NEB Q2HR PRN for SHORTNESS OF BREATH, (Reported) Entered as Reported by: FIONA CATHERINE on 03/02/182058 Last Action: Continued on 03/02/182115 by FIONA CATHERINE Patient Instructions Patient Instructions > 30 min face to face WILMAR OSBORN MD Mar 05, 2018 12:18
== END 2018-03-05 13:34 | disposition home or self-care (01) | DRG 391 ==
LOC: ER 14:41 → 5 NORTH 18:15
PROVIDERS: ADMIT Internal Medicine; ATTEND Internal Medicine
DX: K29.20 Alcoholic gastritis without bleeding (principal); G93.40 Encephalopathy, unspecified; F10.239 Alcohol dependence with withdrawal, unspecified; R44.0 Auditory hallucinations; K29.00 Acute gastritis without bleeding; E66.9 Obesity, unspecified; F10.229 Alcohol dependence with intoxication, unspecified; I10 Essential (primary) hypertension; K44.9 Diaphragmatic hernia without obstruction or gangrene; Y90.8 Blood alcohol level of 240 mg/100 ml or more; H55.00 Unspecified nystagmus; R27.8 Other lack of coordination; J45.909 Unspecified asthma, uncomplicated; K21.0 Gastro-esophageal reflux disease with esophagitis; Z82.49 Family history of ischemic heart disease and other diseases of the circulatory system; Z90.89 Acquired absence of other organs; Z79.899 Other long term (current) drug therapy; Z68.33 Body mass index [BMI] 33.0-33.9, adult
CPT/HCPCS: 36415; 74177; 80048; 80053; 80076; 81001; 82274; 83540; 83550; 83690; 85025; 85610; 94640; 94760; 96374; 96375; 96376; C9113; G0480; J1200; J1630; J2060; J2270; J2405; J3475; J7030; J7613; J7626; Q9967; S0028; 99285-25

== ENCOUNTER 2018-03-26 13:38 | Inpatient (IN) | payer SELFPAY ==
[~2018-03-26] VITALS: Ht 182.9 cm; Wt 89.9 kg
[~2018-03-26 13:38] MED LIST changes: +DIAZ5TAB4 PO; +IPRA3AMP29 NEB; +PROAIR HFA8.5 GM INH
[2018-03-26] MEDS ORDERED: MULTIVIT INFUSN,ADULT 4,VIT K 10 ML, THIAMINE INJ 100 MG, FOLIC ACID INJ 1 MG in IV NOR... IV ONE (14:00)
[2018-03-26] MEDS ORDERED: PANTOPRAZOLE IV PUSH 40 MG VIAL. IVP ONE ×2 (14:00→14:10)
[2018-03-26] MEDS ORDERED: ONDANSETRON PF 4 MG/2 ML VIAL. IV ONE ×2 (14:00→15:00)
[2018-03-26 14:04] LABS: BILIRUBIN,URINE NEGATIVE (NEG); CLARITY,URINE CLEAR; COLOR,URINE YELLOW; NITRITE,URINE NEGATIVE (NEG); PH,URINE 5.5; PROTEIN,URINE NEGATIVE (NEG-TRACE); UROBILINOGEN,URINE 0.2 mg/dL (0.2 mg/dL)
[2018-03-26] MEDS ORDERED: ONDANSETRON PF 4 MG/2 ML VIAL. ONE (14:10)
--- NOTE | 2018-03-26 14:10 | PHYS DOC ---
Past Medical History Past Medical History: Alcoholism, Asthma, GERD, Hypertension, Pancreatitis Past Surgical History: Tonsillectomy Additional Past Surgical Histo: adnoidectomy, left eye Alcohol Use: Heavy Drug Use: Cocaine, Marijuana Adult General Chief Complaint Chief Complaint: GI PROBLEM HPI HPI Patient is a 43 year old male with a history of alcoholism, acid reflex, hypertension, who presents today complaining of 7 out of 10 left upper quadrant sharp constant abdominal pain that began this morning. Patient's also complaining of nausea, denies vomiting. He states he believes he has pancreatitis because he drank 1 pint of whiskey last night though the mother is in the ED stating patient drank 3 pints of whiskey last night. Patient denies any chest pain or shortness of breath. He states he does not need help with alcohol use because he knows how and where to get help. PCP Dr. Obregon Review of Systems Review of Systems Constitutional: Denies fever or chills [] Eyes: Denies change in visual acuity, redness, or eye pain [] HENT: Denies nasal congestion or sore throat [] Respiratory: Denies cough or shortness of breath [] Cardiovascular: No additional information not addressed in HPI [] GI: Reports left upper quadrant abdominal pain with nausea, denies vomiting, bloody stools or diarrhea [] : Denies dysuria or hematuria [] Musculoskeletal: Denies back pain or joint pain [] Integument: Denies rash or skin lesions [] Neurologic: Denies headache, focal weakness or sensory changes [] All other systems were reviewed and found to be within normal limits, except as documented in this note. Current Medications Current Medications Current Medications Medications (Trade) Dose Ordered Sig/Wil Start Time Stop Time Status Last Admin Dose Admin Info (CONTRAST GIVEN -- Rx MONITORING) 1 each PRN DAILY PRN 03/26/18 14:45 03/28/18 14:44 Iohexol (Omnipaque 300 Mg/ml) 100 ml STK-MED ONCE 03/26/18 14:38 03/26/18 14:39 DC Morphine Sulfate (Morphine Sulfate) 5 mg 1X ONCE 03/26/18 15:00 03/26/18 15:01 DC 03/26/18 15:09 5 MG Multivitamins 10 ml/Thiamine HCl 100 mg/Folic Acid 1 mg/Sodium Chloride 1,011.2 ml @ 1,000.088 mls/hr 1X ONCE 03/26/18 14:00 03/26/18 15:00 DC 03/26/18 15:07 1,000.088 MLS/HR Ondansetron HCl (Zofran) 4 mg 1X ONCE 03/26/18 15:00 03/26/18 15:01 DC 03/26/18 15:08 4 MG Pantoprazole Sodium (PROTONIX VIAL for IV PUSH) 40 mg STK-MED ONCE 03/26/18 14:10 03/26/18 14:11 DC Allergies Allergies Allergies Coded Allergies Type Severity Reaction Last Updated Verified No Known Drug Allergies 04/30/16 No Physical Exam Physical Exam Constitutional: Well developed, well nourished, no acute distress, non-toxic appearance. [] HENT: Normocephalic, atraumatic, bilateral external ears normal, oropharynx moist, no oral exudates, nose normal. [] Eyes: PERRLA, EOMI, conjunctiva normal, no discharge. [] Neck: Normal range of motion, no tenderness, supple, no stridor. [] Cardiovascular:Heart rate regular rhythm, no murmur [] Lungs & Thorax: Bilateral breath sounds clear to auscultation [] Abdomen: Bowel sounds normal, soft, slight tenderness in the left upper quadrant and epigastric region, no right upper quadrant or right lower quadrant tenderness, no guarding, no rebound tenderness, no masses, no pulsatile masses. [] Skin: Warm, dry, no erythema, no rash. [] Back: No tenderness, no CVA tenderness. [] Extremities: No tenderness, no cyanosis, no clubbing, ROM intact, no edema. [] Neurologic: Alert and oriented X 3, normal motor function, normal sensory function, no focal deficits noted. [] Psychologic: Affect normal, judgement normal, mood normal. [] Current Patient Data Vital Signs Vital Signs Date Time Temp Pulse Resp B/P (MAP) Pulse Ox O2 Delivery O2 Flow Rate FiO2 03/26/18 15:09 16 95 Room Air 03/26/18 13:49 97.6 93 158/93 (114) 97.6 Lab Values Laboratory Tests Test 03/26/18 13:45 03/26/18 14:00 Urine Collection Type Unknown Urine Color Yellow Urine Clarity Clear Urine pH 5.5 Urine Specific [place] >=1.030 Urine Protein Negative mg/dL (NEG-TRACE) Urine Glucose (UA) Negative mg/dL (NEG) Urine Ketones (Stick) Negative mg/dL (NEG) Urine Blood Negative (NEG) Urine Nitrite Negative (NEG) Urine Bilirubin Negative (NEG) Urine Urobilinogen Dipstick 0.2 mg/dL (0.2 mg/dL) Urine Leukocyte Esterase Negative (NEG) Urine RBC 0 /HPF (0-2) Urine WBC Occ /HPF (0-4) Urine Squamous Epithelial Cells None /LPF Urine Bacteria 0 /HPF (0-FEW) Urine Mucus Slight /LPF Urine Opiates Screen Neg (NEG) Urine Methadone Screen Neg (NEG) Urine Barbiturates Neg (NEG) Urine Phencyclidine Screen Neg (NEG) Urine Amphetamine/Methamphetamine Neg (NEG) Urine Benzodiazepines Screen Pos (NEG) Urine Cocaine Screen Neg (NEG) Urine Cannabinoids Screen Neg (NEG) Urine Ethyl Alcohol Pos (NEG) White Blood Count 7.4 x10^3/uL (4.0-11.0) Red Blood Count 5.81 x10^6/uL (4.30-5.70) H Hemoglobin 14.6 g/dL (13.0-17.5) Hematocrit 43.9 % (39.0-53.0) Mean Corpuscular Volume 76 fL (79-100) L Mean Corpuscular Hemoglobin 25 pg (25-35) Mean Corpuscular Hemoglobin Concent 33 g/dL (31-37) Red Cell Distribution Width 16.8 % (11.5-14.5) H Platelet Count 309 x10^3/uL (140-400) Neutrophils (%) (Auto) 65 % (31-73) Lymphocytes (%) (Auto) 22 % (24-48) L Monocytes (%) (Auto) 10 % (0-9) H Eosinophils (%) (Auto) 1 % (0-3) Basophils (%) (Auto) 1 % (0-3) Neutrophils # (Auto) 4.8 x10^3uL (1.8-7.7) Lymphocytes # (Auto) 1.6 x10^3/uL (1.0-4.8) Monocytes # (Auto) 0.8 x10^3/uL (0.0-1.1) Eosinophils # (Auto) 0.1 x10^3/uL (0.0-0.7) Basophils # (Auto) 0.1 x10^3/uL (0.0-0.2) Sodium Level 140 mmol/L (136-145) Potassium Level 4.2 mmol/L (3.5-5.1) Chloride Level 102 mmol/L (98-107) Carbon Dioxide Level 26 mmol/L (21-32) Anion Gap 12 (6-14) Blood Urea Nitrogen 23 mg/dL (8-26) Creatinine 1.1 mg/dL (0.7-1.3) Estimated GFR (Cockcroft-Gault) 73.8 BUN/Creatinine Ratio 21 (6-20) H Glucose Level 143 mg/dL (70-99) H Calcium Level 8.9 mg/dL (8.5-10.1) Total Bilirubin 0.3 mg/dL (0.2-1.0) Aspartate Amino Transferase (AST) 128 U/L (15-37) H Alanine Aminotransferase (ALT) 126 U/L (16-63) H Alkaline Phosphatase 72 U/L (46-116) Total Protein 8.1 g/dL (6.4-8.2) Albumin 3.8 g/dL (3.4-5.0) Albumin/Globulin Ratio 0.9 (1.0-1.7) L Lipase 1739 U/L (73-393) H Salicylates Level < 2.8 mg/dL (2.8-20.0) L Salicylate Last Dose Date Unknown Salicylate Last Dose Time Unknown Acetaminophen Level < 2 mcg/ml (10-30) L Acetaminophen Last Dose Date Unknown Acetaminophen Last Dose Time Unknown Ethyl Alcohol Level 182 mg/dL (0-10) H Laboratory Tests 03/26/18 14:00 Laboratory Tests 03/26/18 14:00 EKG EKG [] Radiology/Procedures Radiology/Procedures []PROCEDURE: CT ABD PELV W/ IV CONTRST ONLY EXAM: Abdomen and pelvis CT with intravenous contrast. HISTORY: Pain. TECHNIQUE: Computed tomographic images of the abdomen and pelvis were obtained following the administration of 75 cc Omnipaque 300 intravenous contrast. Multiplanar reformatting was performed. *One or more of the following individualized dose reduction techniques were utilized for this examination: 1. Automated exposure control. 2. Adjustment of the mA and/or kV according to patient size. 3. Use of iterative reconstruction technique. COMPARISON: 03/02/2018 and 02/24/2017 and 04/30/2016. FINDINGS: There is minimal posterior dependent and basilar atelectasis. There is no infiltrate or pleural effusion. There is slight right gynecomastia. There is a small hiatal hernia and suggestion of distal esophageal mucosal thickening. There are 4.5 cm and 2.4 cm hypodense lesions within the left and right hepatic lobes. There is hepatomegaly and mild hepatic steatosis. The gallbladder is unremarkable. There is slight stranding surrounding the pancreatic head. No focal pancreatic lesion is seen. The spleen, adrenal glands and kidneys are unremarkable. There is no evidence of bowel obstruction or abnormal bowel wall thickening. There is no lymphadenopathy. There is no suspicious osseous lesion. There is degenerative change of the lumbosacral junction. IMPRESSION: 1. Slight fatty stranding surrounding the pancreatic head. This can be seen with pancreatitis. Correlate with pancreatic laboratory values. 2. Small hiatal hernia and mild distal esophageal mucosal thickening. Correlate for possible esophagitis. 3. 4.5 cm and 2.4 cm hypodense lesions within the liver. These have increased in size compared to the most recent study and are not seen on additional prior studies, a component of which may due to differences in timing of contrast administration. There is somewhat nodular peripheral enhancement associated with these lesions, possibly due to hemangiomas. However, further evaluation with a liver sonogram or a liver protocol CT or MRI is recommended for confirmation given the interval change. 4. Mild hepatomegaly and hepatic steatosis. Electronically signed by: Eliana Johnson MD (03/26/2018 2:59 PM) [place] [id number] DICTATED and SIGNED BY: ELIANA JOHNSON MD DATE: 03/26/18 1452 Course & Med Decision Making Course & Med Decision Making Pertinent Labs and Imaging studies reviewed. (See chart for details) Male patient presenting to the ED today with complaints of left upper quadrant abdominal pain with concerned he could have pancreatitis, he has history of alcohol-induced pancreatitis and was drinking last night as much as 3 bottles of whisky per mother's statement. CBC with normal WBC, hemoglobin and hematocrit are normal. CMP with AST of 128 ALT 126, lipase 1739, alcohol [id number], drug screen positive for alcohol and benzodiazepines. CT of the abdomen and pelvic was noted for acute pancreatitis. No abscess. 15:08Consulted with Dr. Ortiz who accepted patient for admission. 15:09 Consulted with Dorie BARRERA for Dr. Rogers who follow-up with patient Patient was given banana bag in the Ed with nausea medicine and pain medicine. Also admitted with IV fluids. Dragon Disclaimer Dragon Disclaimer This electronic medical record was generated, in whole or in part, using a voice recognition dictation system. Departure Departure Impression: Primary Impression: Alcoholic pancreatitis Additional Impression: ETOH abuse Disposition: 09 ADMITTED INPATIENT Condition: STABLE Referrals: HERMILA JACKSON MD (PCP) Problem Qualifiers Primary Impression: Alcoholic pancreatitis Chronicity: acute Acute pancreatitis complication: unspecified Qualified Codes: K85.20 - Alcohol induced acute pancreatitis without necrosis or infection THIERNO LOZANO [employer] DOCUMENT [employer]PARER Mar 26, 2018 14:10
[2018-03-26 14:11] LABS: AMPHETAMINE/METHAMPHETAMINE NEG (NEG); BARBITURATES NEG (NEG); BENZODIAZEPINES POS (NEG); CANNABINOIDS NEG (NEG); COCAINE NEG (NEG); METHADONE NEG (NEG); OPIATES NEG (NEG); PHENCYCLIDINE NEG (NEG)
[2018-03-26 14:19] LABS: BASO # 0.1 x10^3/uL (0.0-0.2); BASO % 1 % (0-3); EOS # 0.1 x10^3/uL (0.0-0.7); EOS % 1 % (0-3); HEMATOCRIT 43.9 % (39.0-53.0); HEMOGLOBIN 14.6 g/dL (13.0-17.5); LYMPH # 1.6 x10^3/uL (1.0-4.8); LYMPH % 22 % (24-48); MEAN CORPUSCULAR HEMOGLOBIN 25 pg (25-35); MEAN CORPUSCULAR HGB CONC 33 g/dL (31-37); MEAN CORPUSCULAR VOLUME 76 fL (79-100); MONO # 0.8 x10^3/uL (0.0-1.1); MONO % 10 % (0-9); NEUT # 4.8 x10^3uL (1.8-7.7); NEUT % 65 % (31-73); PLATELET COUNT 309 x10^3/uL (140-400); RED BLOOD COUNT 5.81 x10^6/uL (4.30-5.70); RED CELL DISTRIBUTION WIDTH 16.8 % (11.5-14.5); WHITE BLOOD COUNT 7.4 x10^3/uL (4.0-11.0)
[2018-03-26 14:25] LABS: CALCIUM 8.9 mg/dL (8.5-10.1); CREATININE 1.1 mg/dL (0.7-1.3); GFR 73.8; POTASSIUM 4.2 mmol/L (3.5-5.1)
[2018-03-26 14:29] LABS: ACETAMIN < 2 mcg/ml (10-30); ETHANOL 182 mg/dL (0-10); SALIC < 2.8 mg/dL (2.8-20.0)
[2018-03-26 14:32] LABS: ALBUMIN 3.8 g/dL (3.4-5.0); ALBUMIN/GLOBULIN RATIO 0.9 (1.0-1.7); TOTAL BILIRUBIN 0.3 mg/dL (0.2-1.0); TOTAL PROTEIN 8.1 g/dL (6.4-8.2)
[2018-03-26 14:37] LABS: BACTERIA,URINE 0 /HPF (0-FEW); RBC,URINE 0 /HPF (0-2); WBC,URINE OCC /HPF (0-4)
[2018-03-26] MEDS ORDERED: IOHEXOL 300 MG/ML 100ML VIAL. ONE (14:38)
[2018-03-26] MEDS ORDERED: IOHEXOL 300 MG/ML 100ML VIAL. IV ONE (14:45)
[2018-03-26] MEDS ORDERED: CONTRAST GIVEN. MC PRN (14:45)
[2018-03-26] MEDS ORDERED: MORPHINE SULFATE 10 MG/ML VIAL. IV ONE (15:00)
--- NOTE | 2018-03-26 15:02 | RAD ---
EXAM: Abdomen and pelvis CT with intravenous contrast. HISTORY: Pain. TECHNIQUE: Computed tomographic images of the abdomen and pelvis were obtained following the administration of 75 cc Omnipaque 300 intravenous contrast. Multiplanar reformatting was performed. *One or more of the following individualized dose reduction techniques were utilized for this examination: 1. Automated exposure control. 2. Adjustment of the mA and/or kV according to patient size. 3. Use of iterative reconstruction technique. COMPARISON: 03/02/2018 and 02/24/2017 and 04/30/2016. FINDINGS: There is minimal posterior dependent and basilar atelectasis. There is no infiltrate or pleural effusion. There is slight right gynecomastia. There is a small hiatal hernia and suggestion of distal esophageal mucosal thickening. There are 4.5 cm and 2.4 cm hypodense lesions within the left and right hepatic lobes. There is hepatomegaly and mild hepatic steatosis. The gallbladder is unremarkable. There is slight stranding surrounding the pancreatic head. No focal pancreatic lesion is seen. The spleen, adrenal glands and kidneys are unremarkable. There is no evidence of bowel obstruction or abnormal bowel wall thickening. There is no lymphadenopathy. There is no suspicious osseous lesion. There is degenerative change of the lumbosacral junction. IMPRESSION: 1. Slight fatty stranding surrounding the pancreatic head. This can be seen with pancreatitis. Correlate with pancreatic laboratory values. 2. Small hiatal hernia and mild distal esophageal mucosal thickening. Correlate for possible esophagitis. 3. 4.5 cm and 2.4 cm hypodense lesions within the liver. These have increased in size compared to the most recent study and are not seen on additional prior studies, a component of which may due to differences in timing of contrast administration. There is somewhat nodular peripheral enhancement associated with these lesions, possibly due to hemangiomas. However, further evaluation with a liver sonogram or a liver protocol CT or MRI is recommended for confirmation given the interval change. 4. Mild hepatomegaly and hepatic steatosis. Electronically signed by: Eliana Wright MD (03/26/2018 2:59 PM) [place] [id number]
[2018-03-26] MEDS ORDERED: IV NORMAL SALINE 1000ML BAG 1,000 ML IV ONE (15:15)
--- NOTE | 2018-03-26 15:41 | PDOC2 ---
GI CONSULT Reason For Consult: Acute pancreatitis, alcohol abuse HPI: HPI: 43 y/o male who we have seen in the past. H/o alcoholic pancreatitis. Was sober x 8 months w/ AA, started drinking again last month. Last night developed severe epigastric pain w/ n/v after drinking more than a bottle of whiskey. No hematemesis, dysphagia, diarrhea, constipation, hematochezia, melena. AST 128, ALT 126, lipase 1739, ethyl alcohol 182. CT w/ fatty stranding surrounding pancreatic head, small hiatal hernia and mild distal esophageal thickening, hypodense liver lesions (increased in size possibly from timing of contrast, possible hemangiomas), hepatomegaly and hepatic steatosis. H/o GERD, currently untreated, last EGD at ~20 years ago. No previous colonoscopy. Abd US in 2017 showed distended GB w/ sludge and hepatic steatosis. No NSAIDs. Mother present. PMH: PMH: alcoholism, asthma (on theophylline, nebulizers, inhalers), GERD, hiatal hernia , recurrent pancreatitis, HTN, gout, depression, tonsillectomy, left eye surgery FH: Family History: Cancer (bladder), Other (dysphagia, GERD) Social History: ALCOHOL: heavy Drugs: Cocaine, Marijuana ROS: GEN: Denies fevers, chills, sweats HEENT: Denies blurred vision, sore throat CV: Denies chest pain RESP: Denies shortness of air, cough GI: Per HPI : Denies hematuria, dysuria ENDO: Denies weight changes NEURO: Denies confusion, dizziness MSK: Denies weakness, joint pain/swelling SKIN: Denies jaundice, pruritus Vitals: Vitals: Vital Signs Date Time Temp Pulse Resp B/P (MAP) Pulse Ox O2 Delivery O2 Flow Rate FiO2 03/26/18 15:09 16 95 Room Air 03/26/18 13:49 97.6 93 158/93 (114) 97.6 Labs: Labs: Laboratory Tests Test 03/26/18 13:45 03/26/18 14:00 Urine Collection Type Unknown Urine Color Yellow Urine Clarity Clear Urine pH 5.5 Urine Specific [place] >=1.030 Urine Protein Negative mg/dL (NEG-TRACE) Urine Glucose (UA) Negative mg/dL (NEG) Urine Ketones (Stick) Negative mg/dL (NEG) Urine Blood Negative (NEG) Urine Nitrite Negative (NEG) Urine Bilirubin Negative (NEG) Urine Urobilinogen Dipstick 0.2 mg/dL (0.2 mg/dL) Urine Leukocyte Esterase Negative (NEG) Urine RBC 0 /HPF (0-2) Urine WBC Occ /HPF (0-4) Urine Squamous Epithelial Cells None /LPF Urine Bacteria 0 /HPF (0-FEW) Urine Mucus Slight /LPF Urine Opiates Screen Neg (NEG) Urine Methadone Screen Neg (NEG) Urine Barbiturates Neg (NEG) Urine Phencyclidine Screen Neg (NEG) Urine Amphetamine/Methamphetamine Neg (NEG) Urine Benzodiazepines Screen Pos (NEG) Urine Cocaine Screen Neg (NEG) Urine Cannabinoids Screen Neg (NEG) Urine Ethyl Alcohol Pos (NEG) White Blood Count 7.4 x10^3/uL (4.0-11.0) Red Blood Count 5.81 x10^6/uL (4.30-5.70) Hemoglobin 14.6 g/dL (13.0-17.5) Hematocrit 43.9 % (39.0-53.0) Mean Corpuscular Volume 76 fL (79-100) Mean Corpuscular Hemoglobin 25 pg (25-35) Mean Corpuscular Hemoglobin Concent 33 g/dL (31-37) Red Cell Distribution Width 16.8 % (11.5-14.5) Platelet Count 309 x10^3/uL (140-400) Neutrophils (%) (Auto) 65 % (31-73) Lymphocytes (%) (Auto) 22 % (24-48) Monocytes (%) (Auto) 10 % (0-9) Eosinophils (%) (Auto) 1 % (0-3) Basophils (%) (Auto) 1 % (0-3) Neutrophils # (Auto) 4.8 x10^3uL (1.8-7.7) Lymphocytes # (Auto) 1.6 x10^3/uL (1.0-4.8) Monocytes # (Auto) 0.8 x10^3/uL (0.0-1.1) Eosinophils # (Auto) 0.1 x10^3/uL (0.0-0.7) Basophils # (Auto) 0.1 x10^3/uL (0.0-0.2) Sodium Level 140 mmol/L (136-145) Potassium Level 4.2 mmol/L (3.5-5.1) Chloride Level 102 mmol/L (98-107) Carbon Dioxide Level 26 mmol/L (21-32) Anion Gap 12 (6-14) Blood Urea Nitrogen 23 mg/dL (8-26) Creatinine 1.1 mg/dL (0.7-1.3) Estimated GFR (Cockcroft-Gault) 73.8 BUN/Creatinine Ratio 21 (6-20) Glucose Level 143 mg/dL (70-99) Calcium Level 8.9 mg/dL (8.5-10.1) Total Bilirubin 0.3 mg/dL (0.2-1.0) Aspartate Amino Transf (AST/SGOT) 128 U/L (15-37) Alanine Aminotransferase (ALT/SGPT) 126 U/L (16-63) Alkaline Phosphatase 72 U/L (46-116) Total Protein 8.1 g/dL (6.4-8.2) Albumin 3.8 g/dL (3.4-5.0) Albumin/Globulin Ratio 0.9 (1.0-1.7) Lipase 1739 U/L (73-393) Salicylates Level < 2.8 mg/dL (2.8-20.0) Salicylate Last Dose Date Unknown Salicylate Last Dose Time Unknown Acetaminophen Level < 2 mcg/ml (10-30) Acetaminophen Last Dose Date Unknown Acetaminophen Last Dose Time Unknown Ethyl Alcohol Level 182 mg/dL (0-10) Allergies: Coded Allergies: No Known Drug Allergies (Unverified , 04/30/16) Medications: Current Medications Medications (Trade) Dose Ordered Sig/Wil Route PRN Reason Start Time Stop Time Status Last Admin Dose Admin Multivitamins 10 ml/Thiamine HCl 100 mg/Folic Acid 1 mg/Sodium Chloride 1,011.2 ml @ 1,000.088 mls/hr 1X ONCE IV 03/26/18 14:00 03/26/18 15:00 DC 03/26/18 15:07 Ondansetron HCl (Zofran) 4 mg 1X ONCE IV 03/26/18 14:00 03/26/18 14:10 DC 03/26/18 14:13 Pantoprazole Sodium (PROTONIX VIAL for IV PUSH) 40 mg 1X ONCE IVP 03/26/18 14:00 03/26/18 14:10 DC 9/13/18 14:13 Iohexol (Omnipaque 300 Mg/ml) 75 ml 1X ONCE IV 03/26/18 14:45 03/26/18 14:46 DC 03/26/18 14:38 Ondansetron HCl (Zofran) 4 mg 1X ONCE IV 03/26/18 15:00 03/26/18 15:01 DC 03/26/18 15:08 Morphine Sulfate (Morphine Sulfate) 5 mg 1X ONCE IV 03/26/18 15:00 03/26/18 15:01 DC 03/26/18 15:09 Imaging: Imaging: CT A/P IMPRESSION: 1. Slight fatty stranding surrounding the pancreatic head. This can be seen with pancreatitis. Correlate with pancreatic laboratory values. 2. Small hiatal hernia and mild distal esophageal mucosal thickening. Correlate for possible esophagitis. 3. 4.5 cm and 2.4 cm hypodense lesions within the liver. These have increased in size compared to the most recent study and are not seen on additional prior studies, a component of which may due to differences in timing of contrast administration. There is somewhat nodular peripheral enhancement associated with these lesions, possibly due to hemangiomas. However , further evaluation with a liver sonogram or a liver protocol CT or MRI is recommended for confirmation given the interval change. 4. Mild hepatomegaly and hepatic steatosis. PE: GEN: uncomfortable, a bit tremulous HEENT: Atraumatic, PERRL LUNGS: CTAB HEART: RRR ABD: quiet, non-distended, epigastric discomfort to light touch EXTREMITY: No edema SKIN: No rashes, no jaundice NEURO/PSYCH: A & O 3 A/P: A/P: Alcoholism, recurrent pancreatitis GERD, hiatal hernia Hepatic steatosis CRC screen - average risk -- Withdrawal precautions, supportive care. Pain control per primary. NPO for now, can start clears when pain improves. Re: other CT findings - start PPI and check liver US. MESSI GORE Mar 26, 2018 15:41
[2018-03-26] MEDS: ONDANSETRON PF 4 MG/2 ML VIAL. IV PRN ×2 (15:57→20:54)
--- NOTE | 2018-03-26 16:28 | PDOC1 ---
History and Physical Date of Admission Date of Admission DATE: 03/26/18 TIME: 16:27 Identification/Chief Complaint Chief Complaint cc history of alcoholism, acid reflex, hypertension, who presented to ER today , 7 out of 10 left upper quadrant sharp constant abdominal pain also complaining of nausea, denies vomiting. He states he believes he has pancreatitis mother is in the ED stating patient drank 3 pints of whiskey last night. HX HEAVY WHISKEY INTAKE X MONTHS Past Medical History Past Medical History Past Medical History Past Medical History: Alcoholism, Asthma, GERD, Hypertension, Pancreatitis Past Surgical History: Tonsillectomy Additional Past Surgical Histo: adnoidectomy, left eye Alcohol Use: Heavy Drug Use: Cocaine, Marijuana FAMILY HX HTN Pulmonary: Asthma Past Surgical History Past Surgical History: No pertinent history Family History Family History: Hypertension Social History Smoke: <1 pack per day ALCOHOL: heavy Drugs: Cocaine, Marijuana Current Problem List Problem List Problems Medical Problems: (1) Alcoholic pancreatitis Status: Acute (2) ETOH abuse Status: Acute Current Medications Current Medications Current Medications Multivitamins 10 ml/Thiamine HCl 100 mg/Folic Acid 1 mg/Sodium Chloride 1,011.2 ml @ 1,000.088 mls/hr 1X ONCE IV Last administered on 03/26/18at 15:07; Start 03/26/18 at 14:00; Stop 03/26/18 at 15:00; Status DC Ondansetron HCl (Zofran) 4 mg 1X ONCE IV Last administered on 03/26/18at 14:13 ; Start 03/26/18 at 14:00; Stop 03/26/18 at 14:10; Status DC Pantoprazole Sodium (PROTONIX VIAL for IV PUSH) 40 mg 1X ONCE IVP Last administered on 03/26/18at 14:13; Start 03/26/18 at 14:00; Stop 03/26/18 at 14:10 ; Status DC Pantoprazole Sodium (PROTONIX VIAL for IV PUSH) 40 mg STK-MED ONCE IVP ; Start 03/26/18 at 14:10; Stop 03/26/18 at 14:11; Status DC Ondansetron HCl (Zofran) 4 mg STK-MED ONCE .ROUTE ; Start 03/26/18 at 14:10; Stop 03/26/18 at 14:11; Status DC Iohexol (Omnipaque 300 Mg/ml) 75 ml 1X ONCE IV Last administered on 03/26/18at 14:38; Start 03/26/18 at 14:45; Stop 03/26/18 at 14:46; Status DC Iohexol (Omnipaque 300 Mg/ml) 100 ml STK-MED ONCE .ROUTE ; Start 03/26/18 at 14: 38; Stop 03/26/18 at 14:39; Status DC Info (CONTRAST GIVEN -- Rx MONITORING) 1 each PRN DAILY PRN MC SEE COMMENTS; Start 03/26/18 at 14:45; Stop 03/28/18 at 14:44 Ondansetron HCl (Zofran) 4 mg 1X ONCE IV Last administered on 03/26/18at 15:08 ; Start 03/26/18 at 15:00; Stop 03/26/18 at 15:01; Status DC Morphine Sulfate (Morphine Sulfate) 5 mg 1X ONCE IV Last administered on at 15:09; Start 03/26/18 at 15:00; Stop 03/26/18 at 15:01; Status DC Ondansetron HCl (Zofran) 4 mg PRN Q8HRS PRN IV NAUSEA/VOMITING Last administered on 03/26/18at 15:57; Start 03/26/18 at 15:15; Stop 03/27/18 at 15:14 Morphine Sulfate (Morphine Sulfate) 4 mg PRN Q2HR PRN IV PAIN; Start 03/26/18 at 15:15; Stop 03/27/18 at 15:14 Multivitamins 10 ml/Thiamine HCl 100 mg/Folic Acid 1 mg/Sodium Chloride 1,011.2 ml @ 100 mls/ hr DAILY IV ; Start 03/26/18 at 16:00; Stop 03/30/18 at 19:07 Lorazepam (Ativan) 2 mg PRN Q1HR PRN IV For CIWA 8-14 Last administered on 03/26at 15:59; Start 03/26/18 at 15:15 Sodium Chloride 1,000 ml @ 125 mls/hr 1X ONCE IV ; Start 03/26/18 at 15:15; Stop 03/26/18 at 23:14 Pantoprazole Sodium (PROTONIX VIAL for IV PUSH) 40 mg DAILYAC IVP ; Start at 07:30 Active Scripts Active Diazepam 5 Mg Tablet 5 Mg PO DAILY Reported Proair Hfa Inhaler (Albuterol Sulfate) 8.5 Gm Hfa.aer.ad 1 Puff INH PRN Q4HRS PRN Duoneb 0.5-3(2.5) Mg/3 Ml (Albuterol/Ipratropium) 3 Ml Ampul.neb 3 Ml NEB Q2HR PRN Symbicort 160-4.5 Mcg Inhaler (Budesonide/Formoterol Fumarate) 10.2 Gm Hfa.aer.ad 2 Puff IH BID Prilosec Otc (Omeprazole Magnesium) 20 Mg Tablet.dr 1 Tab PO DAILY Theophylline (Theophylline Anhydrous) 400 Mg Tablet.er 300 Mg PO BID Allergies Allergies: Coded Allergies: No Known Drug Allergies (Unverified , 04/30/16) ROS Review of System Review of Systems Review of Systems Constitutional: Denies fever or chills [] Eyes: Denies change in visual acuity, redness, or eye pain [] HENT: Denies nasal congestion or sore throat [] Respiratory: Denies cough or shortness of breath [] Cardiovascular: No additional information not addressed in HPI [] GI: Reports left upper quadrant abdominal pain with nausea, denies vomiting, bloody stools or diarrhea [] : Denies dysuria or hematuria [] Musculoskeletal: Denies back pain or joint pain [] Integument: Denies rash or skin lesions [] Neurologic: Denies headache, focal weakness or sensory changes [] 14 PT systems were reviewed and found to be within normal limits, except as documented . General: No: Chills, Night Sweats, Fatigue, Malaise, Appetite, Other Hematological and Lymphatic: No: Bleeding Problems, Blood Clots, Blood Transfusions, Brusing, Night Sweats, Pallor, Swollen Lymph Nodes, Other Gastrointestinal: Yes Abdominal Pain Skin: No Dry Skin, No Eczema, No Hair Changes, No Lumps, No Mole Changes, No Mottling, No Nail Changes, No Pruritus, No Rash, No Skin Lesion Changes, No Other, No Acne Physical Exam Physical Exam Physical Exam Physical Exam Constitutional: Well developed, well nourished, MOD acute distress, non-toxic appearance. [] HENT: Normocephalic, atraumatic, bilateral external ears normal, oropharynx moist, no oral exudates, nose normal. [] Eyes: PERRLA, EOMI, conjunctiva normal, no discharge. [] Neck: Normal range of motion, no tenderness, supple, no stridor. [] Cardiovascular:Heart rate regular rhythm, no murmur [] Lungs & Thorax: Bilateral breath sounds clear to auscultation [] Abdomen: Bowel sounds normal, soft, slight tenderness in the left upper quadrant and epigastric region, no right upper quadrant or right lower quadrant tenderness, no guarding, no rebound tenderness, no masses, no pulsatile masses. [] Skin: Warm, dry, no erythema, no rash. [] Back: No tenderness, no CVA tenderness. [] Extremities: No tenderness, no cyanosis, no clubbing, ROM intact, no edema. [] Neurologic: Alert and oriented X 3, normal motor function, normal sensory function, no focal deficits noted. [] Psychologic: Affect normal, judgement POOR , mood normal. [] General: Oriented X3, Cooperative, moderate distress HEENT: PERRLA Lungs: Clear to auscultation Heart: S1S2 Rectal Exam: not examined Extremities: No cyanosis Neuro: Normal speech, Cranial nerves 3-12 NL Vitals Vitals Vital Signs Date Time Temp Pulse Resp B/P (MAP) Pulse Ox O2 Delivery O2 Flow Rate FiO2 03/26/18 15:09 16 95 Room Air 03/26/18 13:49 97.6 93 158/93 (114) 97.6 Labs Labs Laboratory Tests Test 03/26/18 13:45 03/26/18 14:00 Urine Collection Type Unknown Urine Color Yellow Urine Clarity Clear Urine pH 5.5 Urine Specific [place] >=1.030 Urine Protein Negative mg/dL (NEG-TRACE) Urine Glucose (UA) Negative mg/dL (NEG) Urine Ketones (Stick) Negative mg/dL (NEG) Urine Blood Negative (NEG) Urine Nitrite Negative (NEG) Urine Bilirubin Negative (NEG) Urine Urobilinogen Dipstick 0.2 mg/dL (0.2 mg/dL) Urine Leukocyte Esterase Negative (NEG) Urine RBC 0 /HPF (0-2) Urine WBC Occ /HPF (0-4) Urine Squamous Epithelial Cells None /LPF Urine Bacteria 0 /HPF (0-FEW) Urine Mucus Slight /LPF Urine Opiates Screen Neg (NEG) Urine Methadone Screen Neg (NEG) Urine Barbiturates Neg (NEG) Urine Phencyclidine Screen Neg (NEG) Urine Amphetamine/Methamphetamine Neg (NEG) Urine Benzodiazepines Screen Pos (NEG) Urine Cocaine Screen Neg (NEG) Urine Cannabinoids Screen Neg (NEG) Urine Ethyl Alcohol Pos (NEG) White Blood Count 7.4 x10^3/uL (4.0-11.0) Red Blood Count 5.81 x10^6/uL (4.30-5.70) Hemoglobin 14.6 g/dL (13.0-17.5) Hematocrit 43.9 % (39.0-53.0) Mean Corpuscular Volume 76 fL (79-100) Mean Corpuscular Hemoglobin 25 pg (25-35) Mean Corpuscular Hemoglobin Concent 33 g/dL (31-37) Red Cell Distribution Width 16.8 % (11.5-14.5) Platelet Count 309 x10^3/uL (140-400) Neutrophils (%) (Auto) 65 % (31-73) Lymphocytes (%) (Auto) 22 % (24-48) Monocytes (%) (Auto) 10 % (0-9) Eosinophils (%) (Auto) 1 % (0-3) Basophils (%) (Auto) 1 % (0-3) Neutrophils # (Auto) 4.8 x10^3uL (1.8-7.7) Lymphocytes # (Auto) 1.6 x10^3/uL (1.0-4.8) Monocytes # (Auto) 0.8 x10^3/uL (0.0-1.1) Eosinophils # (Auto) 0.1 x10^3/uL (0.0-0.7) Basophils # (Auto) 0.1 x10^3/uL (0.0-0.2) Sodium Level 140 mmol/L (136-145) Potassium Level 4.2 mmol/L (3.5-5.1) Chloride Level 102 mmol/L (98-107) Carbon Dioxide Level 26 mmol/L (21-32) Anion Gap 12 (6-14) Blood Urea Nitrogen 23 mg/dL (8-26) Creatinine 1.1 mg/dL (0.7-1.3) Estimated GFR (Cockcroft-Gault) 73.8 BUN/Creatinine Ratio 21 (6-20) Glucose Level 143 mg/dL (70-99) Calcium Level 8.9 mg/dL (8.5-10.1) Total Bilirubin 0.3 mg/dL (0.2-1.0) Aspartate Amino Transf (AST/SGOT) 128 U/L (15-37) Alanine Aminotransferase (ALT/SGPT) 126 U/L (16-63) Alkaline Phosphatase 72 U/L (46-116) Total Protein 8.1 g/dL (6.4-8.2) Albumin 3.8 g/dL (3.4-5.0) Albumin/Globulin Ratio 0.9 (1.0-1.7) Lipase 1739 U/L (73-393) Salicylates Level < 2.8 mg/dL (2.8-20.0) Salicylate Last Dose Date Unknown Salicylate Last Dose Time Unknown Acetaminophen Level < 2 mcg/ml (10-30) Acetaminophen Last Dose Date Unknown Acetaminophen Last Dose Time Unknown Ethyl Alcohol Level 182 mg/dL (0-10) Laboratory Tests Test 03/26/18 13:45 03/26/18 14:00 Urine Collection Type Unknown Urine Color Yellow Urine Clarity Clear Urine pH 5.5 Urine Specific [place] >=1.030 Urine Protein Negative mg/dL (NEG-TRACE) Urine Glucose (UA) Negative mg/dL (NEG) Urine Ketones (Stick) Negative mg/dL (NEG) Urine Blood Negative (NEG) Urine Nitrite Negative (NEG) Urine Bilirubin Negative (NEG) Urine Urobilinogen Dipstick 0.2 mg/dL (0.2 mg/dL) Urine Leukocyte Esterase Negative (NEG) Urine RBC 0 /HPF (0-2) Urine WBC Occ /HPF (0-4) Urine Squamous Epithelial Cells None /LPF Urine Bacteria 0 /HPF (0-FEW) Urine Mucus Slight /LPF Urine Opiates Screen Neg (NEG) Urine Methadone Screen Neg (NEG) Urine Barbiturates Neg (NEG) Urine Phencyclidine Screen Neg (NEG) Urine Amphetamine/Methamphetamine Neg (NEG) Urine Benzodiazepines Screen Pos (NEG) Urine Cocaine Screen Neg (NEG) Urine Cannabinoids Screen Neg (NEG) Urine Ethyl Alcohol Pos (NEG) White Blood Count 7.4 x10^3/uL (4.0-11.0) Red Blood Count 5.81 x10^6/uL (4.30-5.70) Hemoglobin 14.6 g/dL (13.0-17.5) Hematocrit 43.9 % (39.0-53.0) Mean Corpuscular Volume 76 fL (79-100) Mean Corpuscular Hemoglobin 25 pg (25-35) Mean Corpuscular Hemoglobin Concent 33 g/dL (31-37) Red Cell Distribution Width 16.8 % (11.5-14.5) Platelet Count 309 x10^3/uL (140-400) Neutrophils (%) (Auto) 65 % (31-73) Lymphocytes (%) (Auto) 22 % (24-48) Monocytes (%) (Auto) 10 % (0-9) Eosinophils (%) (Auto) 1 % (0-3) Basophils (%) (Auto) 1 % (0-3) Neutrophils # (Auto) 4.8 x10^3uL (1.8-7.7) Lymphocytes # (Auto) 1.6 x10^3/uL (1.0-4.8) Monocytes # (Auto) 0.8 x10^3/uL (0.0-1.1) Eosinophils # (Auto) 0.1 x10^3/uL (0.0-0.7) Basophils # (Auto) 0.1 x10^3/uL (0.0-0.2) Sodium Level 140 mmol/L (136-145) Potassium Level 4.2 mmol/L (3.5-5.1) Chloride Level 102 mmol/L (98-107) Carbon Dioxide Level 26 mmol/L (21-32) Anion Gap 12 (6-14) Blood Urea Nitrogen 23 mg/dL (8-26) Creatinine 1.1 mg/dL (0.7-1.3) Estimated GFR (Cockcroft-Gault) 73.8 BUN/Creatinine Ratio 21 (6-20) Glucose Level 143 mg/dL (70-99) Calcium Level 8.9 mg/dL (8.5-10.1) Total Bilirubin 0.3 mg/dL (0.2-1.0) Aspartate Amino Transf (AST/SGOT) 128 U/L (15-37) Alanine Aminotransferase (ALT/SGPT) 126 U/L (16-63) Alkaline Phosphatase 72 U/L (46-116) Total Protein 8.1 g/dL (6.4-8.2) Albumin 3.8 g/dL (3.4-5.0) Albumin/Globulin Ratio 0.9 (1.0-1.7) Lipase 1739 U/L (73-393) Salicylates Level < 2.8 mg/dL (2.8-20.0) Salicylate Last Dose Date Unknown Salicylate Last Dose Time Unknown Acetaminophen Level < 2 mcg/ml (10-30) Acetaminophen Last Dose Date Unknown Acetaminophen Last Dose Time Unknown Ethyl Alcohol Level 182 mg/dL (0-10) VTE Prophylaxis Ordered VTE Prophylaxis Devices: No VTE Pharmacological Prophylaxi: Yes Assessment/Plan Assessment/Plan IMPRESSION 1. ACUTE alcohol associated pancreatitis 2. severe alcohol abuse 3. polysubstance abuse hx 4. GERD 5. HTN plan 1. npo 2. iv fluid support, banana bag 3. bowel rest 4. iv protonix 5, gi consult 6. alcohol withdrawal protocol MENDOZA NICOLE MD Mar 26, 2018 16:27
[2018-03-26] MEDS ORDERED: NON FORMULARY ITEM (Albuterol Sulfate (Proair Hfa Inhaler) 1 PUFF) INH PRN (16:45)
[2018-03-26] MEDS ORDERED: LORazepam 1 MG TABLET PO PRN (16:45)
[2018-03-26] MEDS: MULTIVIT INFUSN,ADULT 4,VIT K 10 ML, THIAMINE INJ 100 MG, FOLIC ACID INJ 1 MG in IV NOR... IV SCH (16:57)
[2018-03-26] MEDS ORDERED: ALBUTEROL SULFATE 2.5 MG/3 ML NEBU. NEB PRN (17:00)
[2018-03-26] MEDS: MORPHINE SULFATE 4 MG/ML VIAL. IV PRN ×4 (17:06→22:50)
[2018-03-26] MEDS: LORazepam 1 MG TABLET PO SCH ×2 (17:06→22:19)
--- NOTE | 2018-03-26 17:32 | RAD ---
Indication:PANCREATITIS, NAUSEA, VOMITING TECHNIQUE: Grayscale, color Doppler and spectral waveform is of the abdomen obtained. COMPARISON:CT abdomen pelvis from 03/26/2018 FINDINGS: No radiopaque gallstones, pericholecystic fluid or gallbladder wall thickening. Visualized pancreas is within normal limits. Graded body and tail not visualized due to overlying bowel gas. IVC is patent. Aorta within normal limits. Liver is mildly enlarged measuring 21 cm in longest dimension with diffusely increased echogenicity and decreased through transmission. Main portal vein is patent with hepatopedal flow. Right kidney measures 11.8 cm in length without hydronephrosis. CBD measures 4 mm in diameter and is within normal limits. No focal liver masses are seen. IMPRESSION: Slightly suboptimal exam as patient was very uncooperative. 1. Previously seen Liver lesions on the CT from the same date are not seen on ultrasound. Nonemergent MRI of the abdomen with IV contrast recommended. 2. Mild hepatomegaly with hepatic steatosis. Electronically signed by: Octavio Rosales DO (03/26/2018 5:29 PM) [facility]
[2018-03-26 19:00] VITALS: BP 145/64
[2018-03-26] MEDS: BUDESONIDE 0.5 MG/2 ML NEBU. NEB SCH (19:55)
[2018-03-26] MEDS: ENOXAPARIN 40 MG/0.4 ML SYRINGE. SQ SCH (20:54)
[2018-03-26] MEDS: THEOPHYLLINE 12HR ER 300 MG TAB.ER.12H. PO SCH (20:54)
[2018-03-26] MEDS ORDERED: NON FORMULARY ITEM (Budesonide/Formoterol Fumarate (Symbicort 160-4.5 Mcg Inhaler) 2 PUFF) IH SCH (21:00)
[2018-03-26 23:00] VITALS: BP 135/92
[2018-03-27] VITALS (16 sets, daily range): BP systolic 99–166; BP diastolic 65–106
[2018-03-27] MEDS: MORPHINE SULFATE 4 MG/ML VIAL. IV PRN ×7 (00:45→15:12)
[2018-03-27] MEDS: cloNIDine HCL 0.1 MG TABLET PO PRN ×2 (03:25→05:28)
[2018-03-27] MEDS: ONDANSETRON PF 4 MG/2 ML VIAL. IV PRN ×2 (04:43→12:22)
[2018-03-27 05:55] LABS: BASO % 0 % (0-3); EOS % 0 % (0-3); HEMATOCRIT 47.8 % (39.0-53.0); HEMOGLOBIN 15.6 g/dL (13.0-17.5); LYMPH # 0.5 x10^3/uL (1.0-4.8); LYMPH % 2 % (24-48); MEAN CORPUSCULAR HEMOGLOBIN 25 pg (25-35); MEAN CORPUSCULAR HGB CONC 33 g/dL (31-37); MEAN CORPUSCULAR VOLUME 76 fL (79-100); MONO # 1.2 x10^3/uL (0.0-1.1); MONO % 4 % (0-9); NEUT # 26.7 x10^3uL (1.8-7.7); NEUT % 94 % (31-73); PLATELET COUNT 255 x10^3/uL (140-400); RED BLOOD COUNT 6.28 x10^6/uL (4.30-5.70); RED CELL DISTRIBUTION WIDTH 16.8 % (11.5-14.5); WHITE BLOOD COUNT 28.5 x10^3/uL (4.0-11.0)
[2018-03-27 06:10] LABS: ALBUMIN 3.7 g/dL (3.4-5.0); ALBUMIN/GLOBULIN RATIO 0.9 (1.0-1.7); CALCIUM 8.6 mg/dL (8.5-10.1); CREATININE 1.3 mg/dL (0.7-1.3); GFR 60.8; POTASSIUM 4.1 mmol/L (3.5-5.1); TOTAL BILIRUBIN 0.7 mg/dL (0.2-1.0); TOTAL PROTEIN 7.6 g/dL (6.4-8.2)
[2018-03-27] MEDS ORDERED: PANTOPRAZOLE IV PUSH 40 MG VIAL. IVP SCH (07:30)
[2018-03-27] MEDS: PANTOPRAZOLE IV PUSH 40 MG VIAL. IVP SCH (07:41)
[2018-03-27] MEDS: ALBUTEROL SULFATE 2.5 MG/3 ML NEBU. NEB SCH ×4 (08:04→19:25)
[2018-03-27] MEDS: BUDESONIDE 0.5 MG/2 ML NEBU. NEB SCH ×2 (08:04→19:26)
[2018-03-27 08:55] LABS: % BANDS 5 % (0-9); % MONOS 7 % (0-10)
[2018-03-27 08:56] LABS: % LYMPHS 3 % (24-48); % SEGS 85 % (35-66)
[2018-03-27 08:57] LABS: PLT ESTIMATE ADEQUATE (ADEQUATE)
[2018-03-27] MEDS ORDERED: THIAMINE INJ 100 MG in IV DEXTROSE 5% 50 ML IV SCH (09:00)
[2018-03-27] MEDS: THEOPHYLLINE 12HR ER 300 MG TAB.ER.12H. PO SCH ×2 (09:00→20:42)
[2018-03-27] MEDS ORDERED: MULTIVIT INFUSN,ADULT 4,VIT K 10 ML, THIAMINE INJ 100 MG, FOLIC ACID INJ 1 MG in IV NOR... IV SCH (09:00)
[2018-03-27] MEDS: MULTIVIT INFUSN,ADULT 4,VIT K 10 ML, THIAMINE INJ 100 MG, FOLIC ACID INJ 1 MG in IV NOR... IV SCH (09:00)
--- NOTE | 2018-03-27 11:20 | PDOC ---
Subjective: Subjective: Pt seen w/ Dr. Rogers earlier this morning. Not feeling well, confused. Objective: Vital Signs: Vital Signs Date Time Temp Pulse Resp B/P (MAP) Pulse Ox O2 Delivery O2 Flow Rate FiO2 03/27/18 09:26 18 Room Air 03/27/18 08:04 95 03/27/18 07:00 98.0 135 166/91 (116) 98.0 Labs: Laboratory Tests Test 03/26/18 13:45 03/26/18 14:00 03/27/18 04:15 Urine Collection Type Unknown Urine Color Yellow Urine Clarity Clear Urine pH 5.5 Urine Specific [place] >=1.030 Urine Protein Negative mg/dL Urine Glucose (UA) Negative mg/dL Urine Ketones (Stick) Negative mg/dL Urine Blood Negative Urine Nitrite Negative Urine Bilirubin Negative Urine Urobilinogen Dipstick 0.2 mg/dL Urine Leukocyte Esterase Negative Urine RBC 0 /HPF Urine WBC Occ /HPF Urine Squamous Epithelial Cells None /LPF Urine Bacteria 0 /HPF Urine Mucus Slight /LPF Urine Opiates Screen Neg Urine Methadone Screen Neg Urine Barbiturates Neg Urine Phencyclidine Screen Neg Urine Amphetamine/Methamphetamine Neg Urine Benzodiazepines Screen Pos Urine Cocaine Screen Neg Urine Cannabinoids Screen Neg Urine Ethyl Alcohol Pos White Blood Count 7.4 x10^3/uL 28.5 x10^3/uL Red Blood Count 5.81 x10^6/uL 6.28 x10^6/uL Hemoglobin 14.6 g/dL 15.6 g/dL Hematocrit 43.9 % 47.8 % Mean Corpuscular Volume 76 fL 76 fL Mean Corpuscular Hemoglobin 25 pg 25 pg Mean Corpuscular Hemoglobin Concent 33 g/dL 33 g/dL Red Cell Distribution Width 16.8 % 16.8 % Platelet Count 309 x10^3/uL 255 x10^3/uL Neutrophils (%) (Auto) 65 % 94 % Lymphocytes (%) (Auto) 22 % 2 % Monocytes (%) (Auto) 10 % 4 % Eosinophils (%) (Auto) 1 % 0 % Basophils (%) (Auto) 1 % 0 % Neutrophils # (Auto) 4.8 x10^3uL 26.7 x10^3uL Lymphocytes # (Auto) 1.6 x10^3/uL 0.5 x10^3/uL Monocytes # (Auto) 0.8 x10^3/uL 1.2 x10^3/uL Eosinophils # (Auto) 0.1 x10^3/uL 0.0 x10^3/uL Basophils # (Auto) 0.1 x10^3/uL 0.0 x10^3/uL Sodium Level 140 mmol/L 140 mmol/L Potassium Level 4.2 mmol/L 4.1 mmol/L Chloride Level 102 mmol/L 102 mmol/L Carbon Dioxide Level 26 mmol/L 22 mmol/L Anion Gap 12 16 Blood Urea Nitrogen 23 mg/dL 19 mg/dL Creatinine 1.1 mg/dL 1.3 mg/dL Estimated GFR (Cockcroft-Gault) 73.8 60.8 BUN/Creatinine Ratio 21 15 Glucose Level 143 mg/dL 113 mg/dL Calcium Level 8.9 mg/dL 8.6 mg/dL Total Bilirubin 0.3 mg/dL 0.7 mg/dL Aspartate Amino Transf (AST/SGOT) 128 U/L 87 U/L Alanine Aminotransferase (ALT/SGPT) 126 U/L 106 U/L Alkaline Phosphatase 72 U/L 76 U/L Total Protein 8.1 g/dL 7.6 g/dL Albumin 3.8 g/dL 3.7 g/dL Albumin/Globulin Ratio 0.9 0.9 Lipase 1739 U/L Salicylates Level < 2.8 mg/dL Salicylate Last Dose Date Unknown Salicylate Last Dose Time Unknown Acetaminophen Level < 2 mcg/ml Acetaminophen Last Dose Date Unknown Acetaminophen Last Dose Time Unknown Ethyl Alcohol Level 182 mg/dL Segmented Neutrophils % 85 % Band Neutrophils % 5 % Lymphocytes % 3 % Monocytes % 7 % Platelet Estimate Adequate Imaging: US IMPRESSION: Slightly suboptimal exam as patient was very uncooperative. 1. Previously seen Liver lesions on the CT from the same date are not seen on ultrasound. Nonemergent MRI of the abdomen with IV contrast recommended. 2. Mild hepatomegaly with hepatic steatosis. PE: GEN: NAD LUNGS: diminished HEART: tachycardic ABD: quiet, tender NEURO/PSYCH: confused - says he's in [place] A/P: Recurrent pancreatitis, alcohol withdrawal Leukocytosis, tachycardia -- As d/w RNs - transfer to ICU w/ leukocytosis, tachycardia - monitor for ARDS w/ pancreatitis. NPO, withdrawal precautions. MESSI GORE Mar 27, 2018 11:20
--- NOTE | 2018-03-27 11:36 | PDOC ---
PROGRESS NOTES Chief Complaint Chief Complaint pain History of Present Illness History of Present Illness pt in severe pain, hr in high 130s, very thirsty, confused, concerned enough to have him moved to ICU Vitals Vitals Vital Signs Date Time Temp Pulse Resp B/P (MAP) Pulse Ox O2 Delivery O2 Flow Rate FiO2 03/27/18 09:26 18 Room Air 03/27/18 08:04 95 03/27/18 07:00 98.0 135 166/91 (116) 98.0 Physical Exam General: Oriented X3, Cooperative, moderate distress Lungs: Clear, Other Extremities: No cyanosis Labs LABS Laboratory Tests Test 03/26/18 13:45 03/26/18 14:00 03/27/18 04:15 Urine Collection Type Unknown Urine Color Yellow Urine Clarity Clear Urine pH 5.5 Urine Specific [place] >=1.030 Urine Protein Negative mg/dL (NEG-TRACE) Urine Glucose (UA) Negative mg/dL (NEG) Urine Ketones (Stick) Negative mg/dL (NEG) Urine Blood Negative (NEG) Urine Nitrite Negative (NEG) Urine Bilirubin Negative (NEG) Urine Urobilinogen Dipstick 0.2 mg/dL (0.2 mg/dL) Urine Leukocyte Esterase Negative (NEG) Urine RBC 0 /HPF (0-2) Urine WBC Occ /HPF (0-4) Urine Squamous Epithelial Cells None /LPF Urine Bacteria 0 /HPF (0-FEW) Urine Mucus Slight /LPF Urine Opiates Screen Neg (NEG) Urine Methadone Screen Neg (NEG) Urine Barbiturates Neg (NEG) Urine Phencyclidine Screen Neg (NEG) Urine Amphetamine/Methamphetamine Neg (NEG) Urine Benzodiazepines Screen Pos (NEG) Urine Cocaine Screen Neg (NEG) Urine Cannabinoids Screen Neg (NEG) Urine Ethyl Alcohol Pos (NEG) White Blood Count 7.4 x10^3/uL (4.0-11.0) 28.5 x10^3/uL (4.0-11.0) Red Blood Count 5.81 x10^6/uL (4.30-5.70) 6.28 x10^6/uL (4.30-5.70) Hemoglobin 14.6 g/dL (13.0-17.5) 15.6 g/dL (13.0-17.5) Hematocrit 43.9 % (39.0-53.0) 47.8 % (39.0-53.0) Mean Corpuscular Volume 76 fL (79-100) 76 fL (79-100) Mean Corpuscular Hemoglobin 25 pg (25-35) 25 pg (25-35) Mean Corpuscular Hemoglobin Concent 33 g/dL (31-37) 33 g/dL (31-37) Red Cell Distribution Width 16.8 % (11.5-14.5) 16.8 % (11.5-14.5) Platelet Count 309 x10^3/uL (140-400) 255 x10^3/uL (140-400) Neutrophils (%) (Auto) 65 % (31-73) 94 % (31-73) Lymphocytes (%) (Auto) 22 % (24-48) 2 % (24-48) Monocytes (%) (Auto) 10 % (0-9) 4 % (0-9) Eosinophils (%) (Auto) 1 % (0-3) 0 % (0-3) Basophils (%) (Auto) 1 % (0-3) 0 % (0-3) Neutrophils # (Auto) 4.8 x10^3uL (1.8-7.7) 26.7 x10^3uL (1.8-7.7) Lymphocytes # (Auto) 1.6 x10^3/uL (1.0-4.8) 0.5 x10^3/uL (1.0-4.8) Monocytes # (Auto) 0.8 x10^3/uL (0.0-1.1) 1.2 x10^3/uL (0.0-1.1) Eosinophils # (Auto) 0.1 x10^3/uL (0.0-0.7) 0.0 x10^3/uL (0.0-0.7) Basophils # (Auto) 0.1 x10^3/uL (0.0-0.2) 0.0 x10^3/uL (0.0-0.2) Sodium Level 140 mmol/L (136-145) 140 mmol/L (136-145) Potassium Level 4.2 mmol/L (3.5-5.1) 4.1 mmol/L (3.5-5.1) Chloride Level 102 mmol/L (98-107) 102 mmol/L (98-107) Carbon Dioxide Level 26 mmol/L (21-32) 22 mmol/L (21-32) Anion Gap 12 (6-14) 16 (6-14) Blood Urea Nitrogen 23 mg/dL (8-26) 19 mg/dL (8-26) Creatinine 1.1 mg/dL (0.7-1.3) 1.3 mg/dL (0.7-1.3) Estimated GFR (Cockcroft-Gault) 73.8 60.8 BUN/Creatinine Ratio 21 (6-20) 15 (6-20) Glucose Level 143 mg/dL (70-99) 113 mg/dL (70-99) Calcium Level 8.9 mg/dL (8.5-10.1) 8.6 mg/dL (8.5-10.1) Total Bilirubin 0.3 mg/dL (0.2-1.0) 0.7 mg/dL (0.2-1.0) Aspartate Amino Transf (AST/SGOT) 128 U/L (15-37) 87 U/L (15-37) Alanine Aminotransferase (ALT/SGPT) 126 U/L (16-63) 106 U/L (16-63) Alkaline Phosphatase 72 U/L (46-116) 76 U/L (46-116) Total Protein 8.1 g/dL (6.4-8.2) 7.6 g/dL (6.4-8.2) Albumin 3.8 g/dL (3.4-5.0) 3.7 g/dL (3.4-5.0) Albumin/Globulin Ratio 0.9 (1.0-1.7) 0.9 (1.0-1.7) Lipase 1739 U/L (73-393) Salicylates Level < 2.8 mg/dL (2.8-20.0) Salicylate Last Dose Date Unknown Salicylate Last Dose Time Unknown Acetaminophen Level < 2 mcg/ml (10-30) Acetaminophen Last Dose Date Unknown Acetaminophen Last Dose Time Unknown Ethyl Alcohol Level 182 mg/dL (0-10) Segmented Neutrophils % 85 % (35-66) Band Neutrophils % 5 % (0-9) Lymphocytes % 3 % (24-48) Monocytes % 7 % (0-10) Platelet Estimate Adequate (ADEQUATE) Assessment and Plan Assessmemt and Plan 1. ACUTE alcohol associated pancreatitis - severe 2. severe alcohol abuse 3. polysubstance abuse hx 4. GERD 5. HTN 6. leukocytosis Plan: - move to ICU - iv fluids - NPO - see orders Problems Medical Problems: (1) Alcoholic pancreatitis Status: Acute (2) ETOH abuse Status: Acute Comment Review of Relevant I have reviewed the following items wali (where applicable) has been applied. Labs Laboratory Tests Test 03/26/18 13:45 03/26/18 14:00 03/27/18 04:15 Urine Collection Type Unknown Urine Color Yellow Urine Clarity Clear Urine pH 5.5 Urine Specific [place] >=1.030 Urine Protein Negative mg/dL (NEG-TRACE) Urine Glucose (UA) Negative mg/dL (NEG) Urine Ketones (Stick) Negative mg/dL (NEG) Urine Blood Negative (NEG) Urine Nitrite Negative (NEG) Urine Bilirubin Negative (NEG) Urine Urobilinogen Dipstick 0.2 mg/dL (0.2 mg/dL) Urine Leukocyte Esterase Negative (NEG) Urine RBC 0 /HPF (0-2) Urine WBC Occ /HPF (0-4) Urine Squamous Epithelial Cells None /LPF Urine Bacteria 0 /HPF (0-FEW) Urine Mucus Slight /LPF Urine Opiates Screen Neg (NEG) Urine Methadone Screen Neg (NEG) Urine Barbiturates Neg (NEG) Urine Phencyclidine Screen Neg (NEG) Urine Amphetamine/Methamphetamine Neg (NEG) Urine Benzodiazepines Screen Pos (NEG) Urine Cocaine Screen Neg (NEG) Urine Cannabinoids Screen Neg (NEG) Urine Ethyl Alcohol Pos (NEG) White Blood Count 7.4 x10^3/uL (4.0-11.0) 28.5 x10^3/uL (4.0-11.0) Red Blood Count 5.81 x10^6/uL (4.30-5.70) 6.28 x10^6/uL (4.30-5.70) Hemoglobin 14.6 g/dL (13.0-17.5) 15.6 g/dL (13.0-17.5) Hematocrit 43.9 % (39.0-53.0) 47.8 % (39.0-53.0) Mean Corpuscular Volume 76 fL (79-100) 76 fL (79-100) Mean Corpuscular Hemoglobin 25 pg (25-35) 25 pg (25-35) Mean Corpuscular Hemoglobin Concent 33 g/dL (31-37) 33 g/dL (31-37) Red Cell Distribution Width 16.8 % (11.5-14.5) 16.8 % (11.5-14.5) Platelet Count 309 x10^3/uL (140-400) 255 x10^3/uL (140-400) Neutrophils (%) (Auto) 65 % (31-73) 94 % (31-73) Lymphocytes (%) (Auto) 22 % (24-48) 2 % (24-48) Monocytes (%) (Auto) 10 % (0-9) 4 % (0-9) Eosinophils (%) (Auto) 1 % (0-3) 0 % (0-3) Basophils (%) (Auto) 1 % (0-3) 0 % (0-3) Neutrophils # (Auto) 4.8 x10^3uL (1.8-7.7) 26.7 x10^3uL (1.8-7.7) Lymphocytes # (Auto) 1.6 x10^3/uL (1.0-4.8) 0.5 x10^3/uL (1.0-4.8) Monocytes # (Auto) 0.8 x10^3/uL (0.0-1.1) 1.2 x10^3/uL (0.0-1.1) Eosinophils # (Auto) 0.1 x10^3/uL (0.0-0.7) 0.0 x10^3/uL (0.0-0.7) Basophils # (Auto) 0.1 x10^3/uL (0.0-0.2) 0.0 x10^3/uL (0.0-0.2) Sodium Level 140 mmol/L (136-145) 140 mmol/L (136-145) Potassium Level 4.2 mmol/L (3.5-5.1) 4.1 mmol/L (3.5-5.1) Chloride Level 102 mmol/L (98-107) 102 mmol/L (98-107) Carbon Dioxide Level 26 mmol/L (21-32) 22 mmol/L (21-32) Anion Gap 12 (6-14) 16 (6-14) Blood Urea Nitrogen 23 mg/dL (8-26) 19 mg/dL (8-26) Creatinine 1.1 mg/dL (0.7-1.3) 1.3 mg/dL (0.7-1.3) Estimated GFR (Cockcroft-Gault) 73.8 60.8 BUN/Creatinine Ratio 21 (6-20) 15 (6-20) Glucose Level 143 mg/dL (70-99) 113 mg/dL (70-99) Calcium Level 8.9 mg/dL (8.5-10.1) 8.6 mg/dL (8.5-10.1) Total Bilirubin 0.3 mg/dL (0.2-1.0) 0.7 mg/dL (0.2-1.0) Aspartate Amino Transf (AST/SGOT) 128 U/L (15-37) 87 U/L (15-37) Alanine Aminotransferase (ALT/SGPT) 126 U/L (16-63) 106 U/L (16-63) Alkaline Phosphatase 72 U/L (46-116) 76 U/L (46-116) Total Protein 8.1 g/dL (6.4-8.2) 7.6 g/dL (6.4-8.2) Albumin 3.8 g/dL (3.4-5.0) 3.7 g/dL (3.4-5.0) Albumin/Globulin Ratio 0.9 (1.0-1.7) 0.9 (1.0-1.7) Lipase 1739 U/L (73-393) Salicylates Level < 2.8 mg/dL (2.8-20.0) Salicylate Last Dose Date Unknown Salicylate Last Dose Time Unknown Acetaminophen Level < 2 mcg/ml (10-30) Acetaminophen Last Dose Date Unknown Acetaminophen Last Dose Time Unknown Ethyl Alcohol Level 182 mg/dL (0-10) Segmented Neutrophils % 85 % (35-66) Band Neutrophils % 5 % (0-9) Lymphocytes % 3 % (24-48) Monocytes % 7 % (0-10) Platelet Estimate Adequate (ADEQUATE) Laboratory Tests Test 03/26/18 13:45 03/26/18 14:00 03/27/18 04:15 Urine Collection Type Unknown Urine Color Yellow Urine Clarity Clear Urine pH 5.5 Urine Specific [place] >=1.030 Urine Protein Negative mg/dL (NEG-TRACE) Urine Glucose (UA) Negative mg/dL (NEG) Urine Ketones (Stick) Negative mg/dL (NEG) Urine Blood Negative (NEG) Urine Nitrite Negative (NEG) Urine Bilirubin Negative (NEG) Urine Urobilinogen Dipstick 0.2 mg/dL (0.2 mg/dL) Urine Leukocyte Esterase Negative (NEG) Urine RBC 0 /HPF (0-2) Urine WBC Occ /HPF (0-4) Urine Squamous Epithelial Cells None /LPF Urine Bacteria 0 /HPF (0-FEW) Urine Mucus Slight /LPF Urine Opiates Screen Neg (NEG) Urine Methadone Screen Neg (NEG) Urine Barbiturates Neg (NEG) Urine Phencyclidine Screen Neg (NEG) Urine Amphetamine/Methamphetamine Neg (NEG) Urine Benzodiazepines Screen Pos (NEG) Urine Cocaine Screen Neg (NEG) Urine Cannabinoids Screen Neg (NEG) Urine Ethyl Alcohol Pos (NEG) White Blood Count 7.4 x10^3/uL (4.0-11.0) 28.5 x10^3/uL (4.0-11.0) Red Blood Count 5.81 x10^6/uL (4.30-5.70) 6.28 x10^6/uL (4.30-5.70) Hemoglobin 14.6 g/dL (13.0-17.5) 15.6 g/dL (13.0-17.5) Hematocrit 43.9 % (39.0-53.0) 47.8 % (39.0-53.0) Mean Corpuscular Volume 76 fL (79-100) 76 fL (79-100) Mean Corpuscular Hemoglobin 25 pg (25-35) 25 pg (25-35) Mean Corpuscular Hemoglobin Concent 33 g/dL (31-37) 33 g/dL (31-37) Red Cell Distribution Width 16.8 % (11.5-14.5) 16.8 % (11.5-14.5) Platelet Count 309 x10^3/uL (140-400) 255 x10^3/uL (140-400) Neutrophils (%) (Auto) 65 % (31-73) 94 % (31-73) Lymphocytes (%) (Auto) 22 % (24-48) 2 % (24-48) Monocytes (%) (Auto) 10 % (0-9) 4 % (0-9) Eosinophils (%) (Auto) 1 % (0-3) 0 % (0-3) Basophils (%) (Auto) 1 % (0-3) 0 % (0-3) Neutrophils # (Auto) 4.8 x10^3uL (1.8-7.7) 26.7 x10^3uL (1.8-7.7) Lymphocytes # (Auto) 1.6 x10^3/uL (1.0-4.8) 0.5 x10^3/uL (1.0-4.8) Monocytes # (Auto) 0.8 x10^3/uL (0.0-1.1) 1.2 x10^3/uL (0.0-1.1) Eosinophils # (Auto) 0.1 x10^3/uL (0.0-0.7) 0.0 x10^3/uL (0.0-0.7) Basophils # (Auto) 0.1 x10^3/uL (0.0-0.2) 0.0 x10^3/uL (0.0-0.2) Sodium Level 140 mmol/L (136-145) 140 mmol/L (136-145) Potassium Level 4.2 mmol/L (3.5-5.1) 4.1 mmol/L (3.5-5.1) Chloride Level 102 mmol/L (98-107) 102 mmol/L (98-107) Carbon Dioxide Level 26 mmol/L (21-32) 22 mmol/L (21-32) Anion Gap 12 (6-14) 16 (6-14) Blood Urea Nitrogen 23 mg/dL (8-26) 19 mg/dL (8-26) Creatinine 1.1 mg/dL (0.7-1.3) 1.3 mg/dL (0.7-1.3) Estimated GFR (Cockcroft-Gault) 73.8 60.8 BUN/Creatinine Ratio 21 (6-20) 15 (6-20) Glucose Level 143 mg/dL (70-99) 113 mg/dL (70-99) Calcium Level 8.9 mg/dL (8.5-10.1) 8.6 mg/dL (8.5-10.1) Total Bilirubin 0.3 mg/dL (0.2-1.0) 0.7 mg/dL (0.2-1.0) Aspartate Amino Transf (AST/SGOT) 128 U/L (15-37) 87 U/L (15-37) Alanine Aminotransferase (ALT/SGPT) 126 U/L (16-63) 106 U/L (16-63) Alkaline Phosphatase 72 U/L (46-116) 76 U/L (46-116) Total Protein 8.1 g/dL (6.4-8.2) 7.6 g/dL (6.4-8.2) Albumin 3.8 g/dL (3.4-5.0) 3.7 g/dL (3.4-5.0) Albumin/Globulin Ratio 0.9 (1.0-1.7) 0.9 (1.0-1.7) Lipase 1739 U/L (73-393) Salicylates Level < 2.8 mg/dL (2.8-20.0) Salicylate Last Dose Date Unknown Salicylate Last Dose Time Unknown Acetaminophen Level < 2 mcg/ml (10-30) Acetaminophen Last Dose Date Unknown Acetaminophen Last Dose Time Unknown Ethyl Alcohol Level 182 mg/dL (0-10) Segmented Neutrophils % 85 % (35-66) Band Neutrophils % 5 % (0-9) Lymphocytes % 3 % (24-48) Monocytes % 7 % (0-10) Platelet Estimate Adequate (ADEQUATE) Medications Current Medications Multivitamins 10 ml/Thiamine HCl 100 mg/Folic Acid 1 mg/Sodium Chloride 1,011.2 ml @ 1,000.088 mls/hr 1X ONCE IV Last administered on 03/26/18at 15:07; Start 03/26/18 at 14:00; Stop 03/26/18 at 15:00; Status DC Ondansetron HCl (Zofran) 4 mg 1X ONCE IV Last administered on 03/26/18at 14:13 ; Start 03/26/18 at 14:00; Stop 03/26/18 at 14:10; Status DC Pantoprazole Sodium (PROTONIX VIAL for IV PUSH) 40 mg 1X ONCE IVP Last administered on 03/26/18at 14:13; Start 03/26/18 at 14:00; Stop 03/26/18 at 14:10 ; Status DC Pantoprazole Sodium (PROTONIX VIAL for IV PUSH) 40 mg STK-MED ONCE IVP ; Start 03/26/18 at 14:10; Stop 03/26/18 at 14:11; Status DC Ondansetron HCl (Zofran) 4 mg STK-MED ONCE .ROUTE ; Start 03/26/18 at 14:10; Stop 03/26/18 at 14:11; Status DC Iohexol (Omnipaque 300 Mg/ml) 75 ml 1X ONCE IV Last administered on 03/26/18at 14:38; Start 03/26/18 at 14:45; Stop 03/26/18 at 14:46; Status DC Iohexol (Omnipaque 300 Mg/ml) 100 ml STK-MED ONCE .ROUTE ; Start 03/26/18 at 14: 38; Stop 03/26/18 at 14:39; Status DC Info (CONTRAST GIVEN -- Rx MONITORING) 1 each PRN DAILY PRN MC SEE COMMENTS; Start 03/26/18 at 14:45; Stop 03/28/18 at 14:44 Ondansetron HCl (Zofran) 4 mg 1X ONCE IV Last administered on 03/26/18at 15:08 ; Start 03/26/18 at 15:00; Stop 03/26/18 at 15:01; Status DC Morphine Sulfate (Morphine Sulfate) 5 mg 1X ONCE IV Last administered on at 15:09; Start 03/26/18 at 15:00; Stop 03/26/18 at 15:01; Status DC Ondansetron HCl (Zofran) 4 mg PRN Q8HRS PRN IV NAUSEA/VOMITING Last administered on 03/27/18at 04:43; Start 03/26/18 at 15:15; Stop 03/27/18 at 15:14 Morphine Sulfate (Morphine Sulfate) 4 mg PRN Q2HR PRN IV PAIN Last administered on 03/27/18at 09:26; Start 03/26/18 at 15:15; Stop 03/27/18 at 15:14 Multivitamins 10 ml/Thiamine HCl 100 mg/Folic Acid 1 mg/Sodium Chloride 1,011.2 ml @ 100 mls/ hr DAILY IV Last administered on 03/27/18at 09:00; Start at 16:00; Stop 03/30/18 at 19:07 Lorazepam (Ativan) 2 mg PRN Q1HR PRN IV For CIWA 8-14 Last administered on 03/26at 15:59; Start 03/26/18 at 15:15; Stop 03/26/18 at 16:43; Status DC Sodium Chloride 1,000 ml @ 125 mls/hr 1X ONCE IV Last administered on at 02:10; Start 03/26/18 at 15:15; Stop 03/26/18 at 23:14; Status DC Pantoprazole Sodium (PROTONIX VIAL for IV PUSH) 40 mg DAILYAC IVP Last administered on 03/27/18at 07:41; Start 03/27/18 at 07:30 Multivitamins 10 ml/Thiamine HCl 100 mg/Folic Acid 1 mg/Sodium Chloride 1,011.2 ml @ 100 mls/ hr DAILY IV ; Start 03/27/18 at 09:00; Stop 03/31/18 at 19:07; Status UNV Multivitamins (Thera M Plus) 1 tab DAILY PO ; Start 03/31/18 at 09:00 Folic Acid (Folic Acid) 1 mg DAILY PO ; Start 03/31/18 at 09:00 Thiamine HCl 100 mg/Dextrose 51 ml @ 100 mls/hr DAILY IV ; Start 03/27/18 at 09 :00; Stop 03/31/18 at 09:31; Status UNV Lorazepam (Ativan) 2 mg Q6H PO Last administered on 03/26/18at 22:19; Start at 17:00; Stop 03/27/18 at 01:47; Status DC Lorazepam (Ativan) 4 mg PRN Q1HR PRN PO For CIWA 8-14; Start 03/26/18 at 16:45 Lorazepam (Ativan) 2 mg PRN Q1HR PRN IV For CIWA 8-14; Start 03/26/18 at 16:45 Lorazepam (Ativan) 4 mg PRN Q1HR PRN IV For CIWA 15 or greater Last administered on 03/27/18at 07:42; Start 03/26/18 at 16:45 Haloperidol Lactate (Haldol Inj) 5 mg PRN Q4HRS PRN IVP Hallucinatns,Confusn, Delirium; Start 03/26/18 at 16:45 Diphenhydramine HCl (Benadryl) 25 mg PRN Q15MIN PRN IVP EPS symptoms 2'Haldol admin; Start 03/26/18 at 16:45 Clonidine HCl (Catapres) 0.1 mg PRN Q1HR PRN PO SBP > 180 or DBP > 100, MRX3 Last administered on 03/27/18at 05:28; Start 03/26/18 at 16:45 Lorazepam (Ativan) 2 mg PRN Q15MIN PRN IV ; Start 03/26/18 at 16:45; Status UNV Lorazepam (Ativan) 4 mg PRN Q15MIN PRN IV ; Start 03/26/18 at 16:45; Status UNV Pantoprazole Sodium (PROTONIX VIAL for IV PUSH) 40 mg DAILYAC IVP ; Start at 07:30; Status UNV Enoxaparin Sodium (Lovenox 40mg Syringe) 40 mg Q24H SQ Last administered on at 20:54; Start 03/26/18 at 21:00 Albuterol Sulfate (Ventolin Neb Soln) 2.5 mg PRN Q2HRS PRN NEB SHORTNESS OF BREATH; Start 03/26/18 at 17:00 Non-Formulary Medication (Albuterol Sulfate (Proair Hfa Inhaler)) 1 puff PRN Q4HRS PRN INH SHORTNESS OF BREATH; Start 03/26/18 at 16:45; Status UNV Non-Formulary Medication (Budesonide/ Formoterol Fumarate (Symbicort 160-4.5 Mcg Inhaler)) 2 puff BID IH ; Start 03/26/18 at 21:00; Status UNV Theophylline (Theodur) 300 mg BID PO Last administered on 03/27/18at 09:00; Start 03/26/18 at 21:00 Budesonide (Pulmicort) 0.5 mg RTBID NEB Last administered on 03/27/18at 08:04; Start 03/26/18 at 20:00 Albuterol Sulfate (Ventolin Neb Soln) 2.5 mg RTQID NEB Last administered on at 08:04; Start 03/26/18 at 20:00 Active Scripts Active Diazepam 5 Mg Tablet 5 Mg PO DAILY Reported Proair Hfa Inhaler (Albuterol Sulfate) 8.5 Gm Hfa.aer.ad 1 Puff INH PRN Q4HRS PRN Duoneb 0.5-3(2.5) Mg/3 Ml (Albuterol/Ipratropium) 3 Ml Ampul.neb 3 Ml NEB Q2HR PRN Symbicort 160-4.5 Mcg Inhaler (Budesonide/Formoterol Fumarate) 10.2 Gm Hfa.aer.ad 2 Puff IH BID Prilosec Otc (Omeprazole Magnesium) 20 Mg Tablet.dr 1 Tab PO DAILY Theophylline (Theophylline Anhydrous) 400 Mg Tablet.er 300 Mg PO BID Vitals/I & O Vital Sign - Last 24 Hours 03/26/18 03/26/18 03/26/18 03/26/18 13:49 15:09 16:31 17:00 Temp 97.6 97.6 Pulse 93 74 Resp 20 16 16 B/P (MAP) 158/93 (114) 145/79 (101) Pulse Ox 96 95 97 O2 Delivery Room Air Room Air Room Air Room Air 03/26/18 03/26/18 03/26/18 03/26/18 17:06 18:39 19:00 19:46 Temp 98.5 98.5 Pulse 97 Resp 18 18 17 B/P (MAP) 145/64 (91) Pulse Ox 95 95 O2 Delivery Room Air Room Air Room Air Room Air 03/26/18 03/26/18 03/26/18 03/27/18 20:00 22:50 23:00 00:45 Temp 97.1 97.1 Pulse 105 Resp 22 B/P (MAP) 135/92 (106) Pulse Ox 95 94 95 O2 Delivery Room Air Room Air Room Air 03/27/18 03/27/18 03/27/18 03/27/18 01:20 03:00 03:25 04:44 Temp 97.0 97.0 Pulse 115 115 Resp 24 B/P (MAP) 163/106 (125) 163/106 Pulse Ox 95 94 94 O2 Delivery Room Air 03/27/18 03/27/18 03/27/18 03/27/18 05:28 07:00 07:47 08:00 Temp 98.0 98.0 Pulse 126 135 Resp 18 20 B/P (MAP) 146/109 166/91 (116) Pulse Ox 94 O2 Delivery Room Air Room Air 03/27/18 03/27/18 03/27/18 08:04 08:17 09:26 Resp 20 18 Pulse Ox 95 O2 Delivery Room Air Room Air Room Air Intake and Output 03/26/18 03/26/18 03/27/18 15:00 23:00 07:00 Intake Total 0 ml 0 ml Balance 0 ml 0 ml ALEKSEY YATES MD Mar 27, 2018 11:36
[2018-03-27] MEDS ORDERED: NORMAL SALINE IV ONE (12:15)
[2018-03-27] MEDS ORDERED: IV NORMAL SALINE 1000ML BAG 1,000 ML IV ONE ×3 (12:15)
[2018-03-27] MEDS: HALOPERIDOL LACTATE 5 MG/ML VIAL. IVP PRN ×3 (14:45→20:39)
--- NOTE | 2018-03-27 15:05 | PDOC ---
Infectious Disease Note Vital Sign Vital Signs Vital Signs Date Time Temp Pulse Resp B/P (MAP) Pulse Ox O2 Delivery O2 Flow Rate FiO2 03/27/18 14:45 94 Room Air 03/27/18 14:03 98.7 137 18 150/71 (97) 98.7 Labs Lab Laboratory Tests Test 03/27/18 04:15 03/27/18 10:45 White Blood Count 28.5 x10^3/uL (4.0-11.0) Red Blood Count 6.28 x10^6/uL (4.30-5.70) Hemoglobin 15.6 g/dL (13.0-17.5) Hematocrit 47.8 % (39.0-53.0) Mean Corpuscular Volume 76 fL (79-100) Mean Corpuscular Hemoglobin 25 pg (25-35) Mean Corpuscular Hemoglobin Concent 33 g/dL (31-37) Red Cell Distribution Width 16.8 % (11.5-14.5) Platelet Count 255 x10^3/uL (140-400) Neutrophils (%) (Auto) 94 % (31-73) Lymphocytes (%) (Auto) 2 % (24-48) Monocytes (%) (Auto) 4 % (0-9) Eosinophils (%) (Auto) 0 % (0-3) Basophils (%) (Auto) 0 % (0-3) Neutrophils # (Auto) 26.7 x10^3uL (1.8-7.7) Lymphocytes # (Auto) 0.5 x10^3/uL (1.0-4.8) Monocytes # (Auto) 1.2 x10^3/uL (0.0-1.1) Eosinophils # (Auto) 0.0 x10^3/uL (0.0-0.7) Basophils # (Auto) 0.0 x10^3/uL (0.0-0.2) Segmented Neutrophils % 85 % (35-66) Band Neutrophils % 5 % (0-9) Lymphocytes % 3 % (24-48) Monocytes % 7 % (0-10) Platelet Estimate Adequate (ADEQUATE) Sodium Level 140 mmol/L (136-145) Potassium Level 4.1 mmol/L (3.5-5.1) Chloride Level 102 mmol/L (98-107) Carbon Dioxide Level 22 mmol/L (21-32) Anion Gap 16 (6-14) Blood Urea Nitrogen 19 mg/dL (8-26) Creatinine 1.3 mg/dL (0.7-1.3) Estimated GFR (Cockcroft-Gault) 60.8 BUN/Creatinine Ratio 15 (6-20) Glucose Level 113 mg/dL (70-99) Calcium Level 8.6 mg/dL (8.5-10.1) Total Bilirubin 0.7 mg/dL (0.2-1.0) Aspartate Amino Transf (AST/SGOT) 87 U/L (15-37) Alanine Aminotransferase (ALT/SGPT) 106 U/L (16-63) Alkaline Phosphatase 76 U/L (46-116) Total Protein 7.6 g/dL (6.4-8.2) Albumin 3.7 g/dL (3.4-5.0) Albumin/Globulin Ratio 0.9 (1.0-1.7) Lactic Acid Level 4.1 mmol/L (0.4-2.0) Objective Assessment Lactic acidosis Leukocytosis ETOH abuse Pancreatitis HTN GERD Plan Plan of Care Zosyn fluids supportive care withdrawal precautions DIANNA VALENTE MD Mar 27, 2018 15:05
[2018-03-27] MEDS: PIPERACILLIN/TAZOBACTAM 3.375 GM in IV NORMAL SALINE 50ML 50 ML IV SCH ×2 (15:57→23:06)
[2018-03-27] MEDS: IV NORMAL SALINE 1000ML BAG 1,000 ML IV SCH (17:50)
[2018-03-27] MEDS: ENOXAPARIN 40 MG/0.4 ML SYRINGE. SQ SCH (20:42)
--- NOTE | 2018-03-27 22:20 | CONS ---
DATE OF CONSULTATION: 03/27/2018 REQUESTING PHYSICIAN: Dr. Matthew. REASON FOR CONSULTATION: Possible sepsis. HISTORY OF PRESENT ILLNESS: This is a 43-year-old gentleman who has alcohol dependence, who came in with not feeling well, abdominal pain, nausea. Denied any vomiting. The patient has had pancreatitis in the past and he said it feels like his pancreatitis is back. The patient was admitted on the floor, started with conservative management, fluids, banana bag, bowel rest, Protonix, etc. The patient has actually had a rapid response. White count went up to 28,000. Lactic acid 4.1. Hence, he was transferred to ICU and consult has been requested. The patient is not on any antibiotics. The patient is somnolent after having morphine and Haldol and he is not able to provide any information. Information was obtained through chart review and discussing with patient's nurse. There was no nausea, vomiting, diarrhea noted. PAST MEDICAL HISTORY: Positive for alcoholism. The patient also has gastroesophageal reflux disease, asthma, hypertension, history of pancreatitis, has had trauma to the left eye. SOCIAL HISTORY: Positive for significant alcohol use. Also, at times marijuana and cocaine use and smoking. ALLERGIES: No known drug allergies. CURRENT MEDICATIONS: Reviewed. REVIEW OF SYSTEMS: As per HPI. All other systems reviewed are negative. PHYSICAL EXAMINATION: GENERAL: Alert, awake gentleman who is somnolent under the medication influence, not in any distress. VITAL SIGNS: Temperature 98.7, pulse 137, respirations 18, blood pressure 150/71. HEENT: Right pupil is round and reacting. The patient has a surgically or traumatized left fixed pupil. No oral lesions. NECK: Supple, no JVP, no lymphadenopathy. LUNGS: Clear. HEART: S1, S2 regular. ABDOMEN: Benign. EXTREMITIES: No edema, cyanosis. SKIN: Unremarkable. NEUROLOGIC: The patient does move all the extremities. LABORATORY DATA: White count on admission yesterday was 7.4, today is 28.5. BUN and creatinine is normal. Lactic acid 4.1, AST 128, ALT 126, lipase 1739. Urinalysis was unremarkable. Blood alcohol level is 182. The patient had abdominal CT, which showed inflammation around the pancreas and hypodense lesion in the liver. IMPRESSION: 1. Leukocytosis may have been reactive, although lactic acidosis is concerning for infection. 2. Alcoholism. 3. Pancreatitis. 4. Hypertension. 5. Encephalopathy, probably medication related. RECOMMENDATIONS: Would park culture and start him on Zosyn, supportive care, IV fluids, withdrawal precautions and continue to follow. Thank you very much, Dr. Matthew for giving me the opportunity to participate in this patient's care. DIANNA VALENTE MD DR: RALEIGH/gretel JOB#: [id number] / [id number]
[2018-03-28] VITALS (12 sets, daily range): BP systolic 84–140; BP diastolic 60–93
[2018-03-28] MEDS: IV NORMAL SALINE 1000ML BAG 1,000 ML IV SCH ×3 (02:10→17:02)
[2018-03-28] MEDS: ONDANSETRON PF 4 MG/2 ML VIAL. IV PRN (02:34)
[2018-03-28] MEDS: MORPHINE SULFATE 2 MG/ML VIAL. IV PRN ×8 (02:34→23:47)
[2018-03-28] MEDS: HALOPERIDOL LACTATE 5 MG/ML VIAL. IVP PRN ×4 (02:34→23:47)
[2018-03-28 05:29] LABS: BASO % 0 % (0-3); EOS % 0 % (0-3); HEMATOCRIT 38.7 % (39.0-53.0); HEMOGLOBIN 12.8 g/dL (13.0-17.5); LYMPH # 1.2 x10^3/uL (1.0-4.8); LYMPH % 7 % (24-48); MEAN CORPUSCULAR HEMOGLOBIN 25 pg (25-35); MEAN CORPUSCULAR HGB CONC 33 g/dL (31-37); MEAN CORPUSCULAR VOLUME 76 fL (79-100); MONO % 6 % (0-9); NEUT # 14.6 x10^3uL (1.8-7.7); NEUT % 86 % (31-73); PLATELET COUNT 143 x10^3/uL (140-400); RED BLOOD COUNT 5.09 x10^6/uL (4.30-5.70); RED CELL DISTRIBUTION WIDTH 16.3 % (11.5-14.5); WHITE BLOOD COUNT 16.9 x10^3/uL (4.0-11.0)
[2018-03-28] MEDS: PIPERACILLIN/TAZOBACTAM 3.375 GM in IV NORMAL SALINE 50ML 50 ML IV SCH ×4 (05:36→23:31)
[2018-03-28 06:06] LABS: CREATININE 1.5 mg/dL (0.7-1.3); GFR 51.6
[2018-03-28] MEDS: BUDESONIDE 0.5 MG/2 ML NEBU. NEB SCH ×2 (07:33→19:30)
[2018-03-28] MEDS: ALBUTEROL SULFATE 2.5 MG/3 ML NEBU. NEB SCH ×4 (07:33→19:30)
[2018-03-28] MEDS: THEOPHYLLINE 12HR ER 300 MG TAB.ER.12H. PO SCH ×2 (07:48→20:34)
[2018-03-28] MEDS: PANTOPRAZOLE IV PUSH 40 MG VIAL. IVP SCH (07:48)
--- NOTE | 2018-03-28 08:12 | PDOC ---
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 PIV: ok Labs Lab Laboratory Tests Test 03/27/18 10:45 03/27/18 12:26 03/27/18 14:35 03/27/18 18:25 Lactic Acid Level 4.1 mmol/L (0.4-2.0) 3.7 mmol/L (0.4-2.0) 4.0 mmol/L (0.4-2.0) Nasal Screen MRSA (PCR) Negative (Negative) Test 03/28/18 05:00 White Blood Count 16.9 x10^3/uL (4.0-11.0) Red Blood Count 5.09 x10^6/uL (4.30-5.70) Hemoglobin 12.8 g/dL (13.0-17.5) Hematocrit 38.7 % (39.0-53.0) Mean Corpuscular Volume 76 fL (79-100) Mean Corpuscular Hemoglobin 25 pg (25-35) Mean Corpuscular Hemoglobin Concent 33 g/dL (31-37) Red Cell Distribution Width 16.3 % (11.5-14.5) Platelet Count 143 x10^3/uL (140-400) Neutrophils (%) (Auto) 86 % (31-73) Lymphocytes (%) (Auto) 7 % (24-48) Monocytes (%) (Auto) 6 % (0-9) Eosinophils (%) (Auto) 0 % (0-3) Basophils (%) (Auto) 0 % (0-3) Neutrophils # (Auto) 14.6 x10^3uL (1.8-7.7) Lymphocytes # (Auto) 1.2 x10^3/uL (1.0-4.8) Monocytes # (Auto) 1.0 x10^3/uL (0.0-1.1) Eosinophils # (Auto) 0.0 x10^3/uL (0.0-0.7) Basophils # (Auto) 0.0 x10^3/uL (0.0-0.2) Sodium Level 138 mmol/L (136-145) Potassium Level 4.0 mmol/L (3.5-5.1) Chloride Level 107 mmol/L (98-107) Carbon Dioxide Level 21 mmol/L (21-32) Anion Gap 10 (6-14) Blood Urea Nitrogen 22 mg/dL (8-26) Creatinine 1.5 mg/dL (0.7-1.3) Estimated GFR (Cockcroft-Gault) 51.6 Glucose Level 141 mg/dL (70-99) Lactic Acid Level 2.2 mmol/L (0.4-2.0) Calcium Level 8.0 mg/dL (8.5-10.1) Lipase 1922 U/L (73-393) Objective Assessment Leukocytosis may have been reactive, although lactic acidosis is concerning for infection, WBC and lactic acid are better Pancreatitis, lipase up to 1922 Encephalopathy, probably medication related ZAIRA Alcoholism Hypertension Plan Plan of Care Zosyn fluids NPO from 03/27 pending supportive care withdrawal precautions Attending Co-Sign The patient was seen and interviewed as well as examined at the bedside. The chart was reviewed. The case was discussed. Agree with the plan of care. ALESHA ELMORE APRN Mar 28, 2018 08:11 DIANNA VALENTE MD Mar 28, 2018 12:44
[2018-03-28] MEDS: MULTIVIT INFUSN,ADULT 4,VIT K 10 ML, THIAMINE INJ 100 MG, FOLIC ACID INJ 1 MG in IV NOR... IV SCH (08:55)
--- NOTE | 2018-03-28 11:59 | PDOC ---
Subjective: Subjective: IN ICU. Denies pain. Objective: Vital Signs: Vital Signs Date Time Temp Pulse Resp B/P (MAP) Pulse Ox O2 Delivery O2 Flow Rate FiO2 03/28/18 11:26 25 95 Room Air 03/28/18 11:01 98.9 128 98.9 Labs: Laboratory Tests Test 03/27/18 12:26 03/27/18 14:35 03/27/18 18:25 03/28/18 05:00 Nasal Screen MRSA (PCR) Negative (Negative) Lactic Acid Level 3.7 mmol/L (0.4-2.0) 4.0 mmol/L (0.4-2.0) 2.2 mmol/L (0.4-2.0) White Blood Count 16.9 x10^3/uL (4.0-11.0) Red Blood Count 5.09 x10^6/uL (4.30-5.70) Hemoglobin 12.8 g/dL (13.0-17.5) Hematocrit 38.7 % (39.0-53.0) Mean Corpuscular Volume 76 fL (79-100) Mean Corpuscular Hemoglobin 25 pg (25-35) Mean Corpuscular Hemoglobin Concent 33 g/dL (31-37) Red Cell Distribution Width 16.3 % (11.5-14.5) Platelet Count 143 x10^3/uL (140-400) Neutrophils (%) (Auto) 86 % (31-73) Lymphocytes (%) (Auto) 7 % (24-48) Monocytes (%) (Auto) 6 % (0-9) Eosinophils (%) (Auto) 0 % (0-3) Basophils (%) (Auto) 0 % (0-3) Neutrophils # (Auto) 14.6 x10^3uL (1.8-7.7) Lymphocytes # (Auto) 1.2 x10^3/uL (1.0-4.8) Monocytes # (Auto) 1.0 x10^3/uL (0.0-1.1) Eosinophils # (Auto) 0.0 x10^3/uL (0.0-0.7) Basophils # (Auto) 0.0 x10^3/uL (0.0-0.2) Sodium Level 138 mmol/L (136-145) Potassium Level 4.0 mmol/L (3.5-5.1) Chloride Level 107 mmol/L (98-107) Carbon Dioxide Level 21 mmol/L (21-32) Anion Gap 10 (6-14) Blood Urea Nitrogen 22 mg/dL (8-26) Creatinine 1.5 mg/dL (0.7-1.3) Estimated GFR (Cockcroft-Gault) 51.6 Glucose Level 141 mg/dL (70-99) Calcium Level 8.0 mg/dL (8.5-10.1) Lipase 1922 U/L (73-393) Physical Exam: Physical Exam: PE: GEN: NAD LUNGS: diminished HEART: tachycardic ABD: quiet, tender, distended NEURO/PSYCH: confused Assessment & Plan: Assessment : Laboratory Tests Test 03/26/18 14:00 03/28/18 05:00 Lipase 1739 U/L (73-393) 1922 U/L (73-393) Plan: A/P: Recurrent pancreatitis, alcohol withdrawal Leukocytosis, tachycardia Lipase worse. WBC better LINH SINCLAIR MD Mar 28, 2018 11:59
--- NOTE | 2018-03-28 12:21 | PDOC ---
PROGRESS NOTES Chief Complaint Chief Complaint Pancreatitis Alcohol abuse Asthma GERD HTN History of Present Illness History of Present Illness Pt seen and examined in ICU Dw RN Pt on 1:1 Pt in moderate distress, tachycardic Vitals Vitals Vital Signs Date Time Temp Pulse Resp B/P (MAP) Pulse Ox O2 Delivery O2 Flow Rate FiO2 03/28/18 12:01 96 Room Air 03/28/18 11:26 25 03/28/18 11:01 98.9 128 98.9 Physical Exam General: Alert, moderate distress Heart: Regular rate Lungs: Clear, Other Abdomen: Soft, No masses Extremities: No cyanosis, No edema Skin: No rashes, No breakdown Labs LABS Laboratory Tests Test 03/27/18 12:26 03/27/18 14:35 03/27/18 18:25 03/28/18 05:00 Nasal Screen MRSA (PCR) Negative (Negative) Lactic Acid Level 3.7 mmol/L (0.4-2.0) 4.0 mmol/L (0.4-2.0) 2.2 mmol/L (0.4-2.0) White Blood Count 16.9 x10^3/uL (4.0-11.0) Red Blood Count 5.09 x10^6/uL (4.30-5.70) Hemoglobin 12.8 g/dL (13.0-17.5) Hematocrit 38.7 % (39.0-53.0) Mean Corpuscular Volume 76 fL (79-100) Mean Corpuscular Hemoglobin 25 pg (25-35) Mean Corpuscular Hemoglobin Concent 33 g/dL (31-37) Red Cell Distribution Width 16.3 % (11.5-14.5) Platelet Count 143 x10^3/uL (140-400) Neutrophils (%) (Auto) 86 % (31-73) Lymphocytes (%) (Auto) 7 % (24-48) Monocytes (%) (Auto) 6 % (0-9) Eosinophils (%) (Auto) 0 % (0-3) Basophils (%) (Auto) 0 % (0-3) Neutrophils # (Auto) 14.6 x10^3uL (1.8-7.7) Lymphocytes # (Auto) 1.2 x10^3/uL (1.0-4.8) Monocytes # (Auto) 1.0 x10^3/uL (0.0-1.1) Eosinophils # (Auto) 0.0 x10^3/uL (0.0-0.7) Basophils # (Auto) 0.0 x10^3/uL (0.0-0.2) Sodium Level 138 mmol/L (136-145) Potassium Level 4.0 mmol/L (3.5-5.1) Chloride Level 107 mmol/L (98-107) Carbon Dioxide Level 21 mmol/L (21-32) Anion Gap 10 (6-14) Blood Urea Nitrogen 22 mg/dL (8-26) Creatinine 1.5 mg/dL (0.7-1.3) Estimated GFR (Cockcroft-Gault) 51.6 Glucose Level 141 mg/dL (70-99) Calcium Level 8.0 mg/dL (8.5-10.1) Lipase 1922 U/L (73-393) Review of Systems Review of Systems CO pain CO fatigue Assessment and Plan Assessmemt and Plan Problems Medical Problems: (1) Alcoholic pancreatitis Status: Acute (2) ETOH abuse Status: Acute Pancreatitis Alcohol abuse Asthma GERD HTN Plan: ICU monitoring Continue 1:1 Banana Bag Alcohol withdrawal protocol Abx Kramer to bedside drainage Labs Appreciate subspecialist input Comment Review of Relevant I have reviewed the following items wali (where applicable) has been applied. Labs Laboratory Tests Test 03/26/18 13:45 03/26/18 14:00 03/27/18 04:15 03/27/18 10:45 Urine Collection Type Unknown Urine Color Yellow Urine Clarity Clear Urine pH 5.5 Urine Specific [place] >=1.030 Urine Protein Negative mg/dL (NEG-TRACE) Urine Glucose (UA) Negative mg/dL (NEG) Urine Ketones (Stick) Negative mg/dL (NEG) Urine Blood Negative (NEG) Urine Nitrite Negative (NEG) Urine Bilirubin Negative (NEG) Urine Urobilinogen Dipstick 0.2 mg/dL (0.2 mg/dL) Urine Leukocyte Esterase Negative (NEG) Urine RBC 0 /HPF (0-2) Urine WBC Occ /HPF (0-4) Urine Squamous Epithelial Cells None /LPF Urine Bacteria 0 /HPF (0-FEW) Urine Mucus Slight /LPF Urine Opiates Screen Neg (NEG) Urine Methadone Screen Neg (NEG) Urine Barbiturates Neg (NEG) Urine Phencyclidine Screen Neg (NEG) Urine Amphetamine/Methamphetamine Neg (NEG) Urine Benzodiazepines Screen Pos (NEG) Urine Cocaine Screen Neg (NEG) Urine Cannabinoids Screen Neg (NEG) Urine Ethyl Alcohol Pos (NEG) White Blood Count 7.4 x10^3/uL (4.0-11.0) 28.5 x10^3/uL (4.0-11.0) Red Blood Count 5.81 x10^6/uL (4.30-5.70) 6.28 x10^6/uL (4.30-5.70) Hemoglobin 14.6 g/dL (13.0-17.5) 15.6 g/dL (13.0-17.5) Hematocrit 43.9 % (39.0-53.0) 47.8 % (39.0-53.0) Mean Corpuscular Volume 76 fL (79-100) 76 fL (79-100) Mean Corpuscular Hemoglobin 25 pg (25-35) 25 pg (25-35) Mean Corpuscular Hemoglobin Concent 33 g/dL (31-37) 33 g/dL (31-37) Red Cell Distribution Width 16.8 % (11.5-14.5) 16.8 % (11.5-14.5) Platelet Count 309 x10^3/uL (140-400) 255 x10^3/uL (140-400) Neutrophils (%) (Auto) 65 % (31-73) 94 % (31-73) Lymphocytes (%) (Auto) 22 % (24-48) 2 % (24-48) Monocytes (%) (Auto) 10 % (0-9) 4 % (0-9) Eosinophils (%) (Auto) 1 % (0-3) 0 % (0-3) Basophils (%) (Auto) 1 % (0-3) 0 % (0-3) Neutrophils # (Auto) 4.8 x10^3uL (1.8-7.7) 26.7 x10^3uL (1.8-7.7) Lymphocytes # (Auto) 1.6 x10^3/uL (1.0-4.8) 0.5 x10^3/uL (1.0-4.8) Monocytes # (Auto) 0.8 x10^3/uL (0.0-1.1) 1.2 x10^3/uL (0.0-1.1) Eosinophils # (Auto) 0.1 x10^3/uL (0.0-0.7) 0.0 x10^3/uL (0.0-0.7) Basophils # (Auto) 0.1 x10^3/uL (0.0-0.2) 0.0 x10^3/uL (0.0-0.2) Sodium Level 140 mmol/L (136-145) 140 mmol/L (136-145) Potassium Level 4.2 mmol/L (3.5-5.1) 4.1 mmol/L (3.5-5.1) Chloride Level 102 mmol/L (98-107) 102 mmol/L (98-107) Carbon Dioxide Level 26 mmol/L (21-32) 22 mmol/L (21-32) Anion Gap 12 (6-14) 16 (6-14) Blood Urea Nitrogen 23 mg/dL (8-26) 19 mg/dL (8-26) Creatinine 1.1 mg/dL (0.7-1.3) 1.3 mg/dL (0.7-1.3) Estimated GFR (Cockcroft-Gault) 73.8 60.8 BUN/Creatinine Ratio 21 (6-20) 15 (6-20) Glucose Level 143 mg/dL (70-99) 113 mg/dL (70-99) Calcium Level 8.9 mg/dL (8.5-10.1) 8.6 mg/dL (8.5-10.1) Total Bilirubin 0.3 mg/dL (0.2-1.0) 0.7 mg/dL (0.2-1.0) Aspartate Amino Transf (AST/SGOT) 128 U/L (15-37) 87 U/L (15-37) Alanine Aminotransferase (ALT/SGPT) 126 U/L (16-63) 106 U/L (16-63) Alkaline Phosphatase 72 U/L (46-116) 76 U/L (46-116) Total Protein 8.1 g/dL (6.4-8.2) 7.6 g/dL (6.4-8.2) Albumin 3.8 g/dL (3.4-5.0) 3.7 g/dL (3.4-5.0) Albumin/Globulin Ratio 0.9 (1.0-1.7) 0.9 (1.0-1.7) Lipase 1739 U/L (73-393) Salicylates Level < 2.8 mg/dL (2.8-20.0) Salicylate Last Dose Date Unknown Salicylate Last Dose Time Unknown Acetaminophen Level < 2 mcg/ml (10-30) Acetaminophen Last Dose Date Unknown Acetaminophen Last Dose Time Unknown Ethyl Alcohol Level 182 mg/dL (0-10) Segmented Neutrophils % 85 % (35-66) Band Neutrophils % 5 % (0-9) Lymphocytes % 3 % (24-48) Monocytes % 7 % (0-10) Platelet Estimate Adequate (ADEQUATE) Lactic Acid Level 4.1 mmol/L (0.4-2.0) Test 03/27/18 12:26 03/27/18 14:35 03/27/18 18:25 03/28/18 05:00 Nasal Screen MRSA (PCR) Negative (Negative) Lactic Acid Level 3.7 mmol/L (0.4-2.0) 4.0 mmol/L (0.4-2.0) 2.2 mmol/L (0.4-2.0) White Blood Count 16.9 x10^3/uL (4.0-11.0) Red Blood Count 5.09 x10^6/uL (4.30-5.70) Hemoglobin 12.8 g/dL (13.0-17.5) Hematocrit 38.7 % (39.0-53.0) Mean Corpuscular Volume 76 fL (79-100) Mean Corpuscular Hemoglobin 25 pg (25-35) Mean Corpuscular Hemoglobin Concent 33 g/dL (31-37) Red Cell Distribution Width 16.3 % (11.5-14.5) Platelet Count 143 x10^3/uL (140-400) Neutrophils (%) (Auto) 86 % (31-73) Lymphocytes (%) (Auto) 7 % (24-48) Monocytes (%) (Auto) 6 % (0-9) Eosinophils (%) (Auto) 0 % (0-3) Basophils (%) (Auto) 0 % (0-3) Neutrophils # (Auto) 14.6 x10^3uL (1.8-7.7) Lymphocytes # (Auto) 1.2 x10^3/uL (1.0-4.8) Monocytes # (Auto) 1.0 x10^3/uL (0.0-1.1) Eosinophils # (Auto) 0.0 x10^3/uL (0.0-0.7) Basophils # (Auto) 0.0 x10^3/uL (0.0-0.2) Sodium Level 138 mmol/L (136-145) Potassium Level 4.0 mmol/L (3.5-5.1) Chloride Level 107 mmol/L (98-107) Carbon Dioxide Level 21 mmol/L (21-32) Anion Gap 10 (6-14) Blood Urea Nitrogen 22 mg/dL (8-26) Creatinine 1.5 mg/dL (0.7-1.3) Estimated GFR (Cockcroft-Gault) 51.6 Glucose Level 141 mg/dL (70-99) Calcium Level 8.0 mg/dL (8.5-10.1) Lipase 1922 U/L (73-393) Laboratory Tests Test 03/27/18 12:26 03/27/18 14:35 03/27/18 18:25 03/28/18 05:00 Nasal Screen MRSA (PCR) Negative (Negative) Lactic Acid Level 3.7 mmol/L (0.4-2.0) 4.0 mmol/L (0.4-2.0) 2.2 mmol/L (0.4-2.0) White Blood Count 16.9 x10^3/uL (4.0-11.0) Red Blood Count 5.09 x10^6/uL (4.30-5.70) Hemoglobin 12.8 g/dL (13.0-17.5) Hematocrit 38.7 % (39.0-53.0) Mean Corpuscular Volume 76 fL (79-100) Mean Corpuscular Hemoglobin 25 pg (25-35) Mean Corpuscular Hemoglobin Concent 33 g/dL (31-37) Red Cell Distribution Width 16.3 % (11.5-14.5) Platelet Count 143 x10^3/uL (140-400) Neutrophils (%) (Auto) 86 % (31-73) Lymphocytes (%) (Auto) 7 % (24-48) Monocytes (%) (Auto) 6 % (0-9) Eosinophils (%) (Auto) 0 % (0-3) Basophils (%) (Auto) 0 % (0-3) Neutrophils # (Auto) 14.6 x10^3uL (1.8-7.7) Lymphocytes # (Auto) 1.2 x10^3/uL (1.0-4.8) Monocytes # (Auto) 1.0 x10^3/uL (0.0-1.1) Eosinophils # (Auto) 0.0 x10^3/uL (0.0-0.7) Basophils # (Auto) 0.0 x10^3/uL (0.0-0.2) Sodium Level 138 mmol/L (136-145) Potassium Level 4.0 mmol/L (3.5-5.1) Chloride Level 107 mmol/L (98-107) Carbon Dioxide Level 21 mmol/L (21-32) Anion Gap 10 (6-14) Blood Urea Nitrogen 22 mg/dL (8-26) Creatinine 1.5 mg/dL (0.7-1.3) Estimated GFR (Cockcroft-Gault) 51.6 Glucose Level 141 mg/dL (70-99) Calcium Level 8.0 mg/dL (8.5-10.1) Lipase 1922 U/L (73-393) Medications Current Medications Multivitamins 10 ml/Thiamine HCl 100 mg/Folic Acid 1 mg/Sodium Chloride 1,011.2 ml @ 1,000.088 mls/hr 1X ONCE IV Last administered on 03/26/18at 15:07; Start 03/26/18 at 14:00; Stop 03/26/18 at 15:00; Status DC Ondansetron HCl (Zofran) 4 mg 1X ONCE IV Last administered on 03/26/18at 14:13 ; Start 03/26/18 at 14:00; Stop 03/26/18 at 14:10; Status DC Pantoprazole Sodium (PROTONIX VIAL for IV PUSH) 40 mg 1X ONCE IVP Last administered on 03/26/18at 14:13; Start 03/26/18 at 14:00; Stop 03/26/18 at 14:10 ; Status DC Pantoprazole Sodium (PROTONIX VIAL for IV PUSH) 40 mg STK-MED ONCE IVP ; Start 03/26/18 at 14:10; Stop 03/26/18 at 14:11; Status DC Ondansetron HCl (Zofran) 4 mg STK-MED ONCE .ROUTE ; Start 03/26/18 at 14:10; Stop 03/26/18 at 14:11; Status DC Iohexol (Omnipaque 300 Mg/ml) 75 ml 1X ONCE IV Last administered on 03/26/18at 14:38; Start 03/26/18 at 14:45; Stop 03/26/18 at 14:46; Status DC Iohexol (Omnipaque 300 Mg/ml) 100 ml STK-MED ONCE .ROUTE ; Start 03/26/18 at 14: 38; Stop 03/26/18 at 14:39; Status DC Info (CONTRAST GIVEN -- Rx MONITORING) 1 each PRN DAILY PRN MC SEE COMMENTS; Start 03/26/18 at 14:45; Stop 03/28/18 at 14:44 Ondansetron HCl (Zofran) 4 mg 1X ONCE IV Last administered on 03/26/18at 15:08 ; Start 03/26/18 at 15:00; Stop 03/26/18 at 15:01; Status DC Morphine Sulfate (Morphine Sulfate) 5 mg 1X ONCE IV Last administered on at 15:09; Start 03/26/18 at 15:00; Stop 03/26/18 at 15:01; Status DC Ondansetron HCl (Zofran) 4 mg PRN Q8HRS PRN IV NAUSEA/VOMITING Last administered on 03/27/18at 12:22; Start 03/26/18 at 15:15; Stop 03/27/18 at 15:14 ; Status DC Morphine Sulfate (Morphine Sulfate) 4 mg PRN Q2HR PRN IV PAIN Last administered on 03/27/18at 15:12; Start 03/26/18 at 15:15; Stop 03/27/18 at 15:14 ; Status DC Multivitamins 10 ml/Thiamine HCl 100 mg/Folic Acid 1 mg/Sodium Chloride 1,011.2 ml @ 100 mls/ hr DAILY IV Last administered on 03/28/18at 08:55; Start at 16:00; Stop 03/30/18 at 19:07 Lorazepam (Ativan) 2 mg PRN Q1HR PRN IV For CIWA 8-14 Last administered on 03/26at 15:59; Start 03/26/18 at 15:15; Stop 03/26/18 at 16:43; Status DC Sodium Chloride 1,000 ml @ 125 mls/hr 1X ONCE IV Last administered on at 02:10; Start 03/26/18 at 15:15; Stop 03/26/18 at 23:14; Status DC Pantoprazole Sodium (PROTONIX VIAL for IV PUSH) 40 mg DAILYAC IVP Last administered on 03/28/18at 07:48; Start 03/27/18 at 07:30 Multivitamins 10 ml/Thiamine HCl 100 mg/Folic Acid 1 mg/Sodium Chloride 1,011.2 ml @ 100 mls/ hr DAILY IV ; Start 03/27/18 at 09:00; Stop 03/31/18 at 19:07; Status UNV Multivitamins (Thera M Plus) 1 tab DAILY PO ; Start 03/31/18 at 09:00 Folic Acid (Folic Acid) 1 mg DAILY PO ; Start 03/31/18 at 09:00 Thiamine HCl 100 mg/Dextrose 51 ml @ 100 mls/hr DAILY IV ; Start 03/27/18 at 09 :00; Stop 03/31/18 at 09:31; Status UNV Lorazepam (Ativan) 2 mg Q6H PO Last administered on 03/26/18at 22:19; Start at 17:00; Stop 03/27/18 at 01:47; Status DC Lorazepam (Ativan) 4 mg PRN Q1HR PRN PO For CIWA 8-14; Start 03/26/18 at 16:45 Lorazepam (Ativan) 2 mg PRN Q1HR PRN IV For CIWA 8-14 Last administered on 03/28at 12:09; Start 03/26/18 at 16:45 Lorazepam (Ativan) 4 mg PRN Q1HR PRN IV For CIWA 15 or greater Last administered on 03/28/18at 01:26; Start 03/26/18 at 16:45 Haloperidol Lactate (Haldol Inj) 5 mg PRN Q4HRS PRN IVP Hallucinatns,Confusn, Delirium Last administered on 03/28/18at 07:10; Start 03/26/18 at 16:45 Diphenhydramine HCl (Benadryl) 25 mg PRN Q15MIN PRN IVP EPS symptoms 2'Haldol admin; Start 03/26/18 at 16:45 Clonidine HCl (Catapres) 0.1 mg PRN Q1HR PRN PO SBP > 180 or DBP > 100, MRX3 Last administered on 03/27/18at 05:28; Start 03/26/18 at 16:45 Lorazepam (Ativan) 2 mg PRN Q15MIN PRN IV ; Start 03/26/18 at 16:45; Status UNV Lorazepam (Ativan) 4 mg PRN Q15MIN PRN IV ; Start 03/26/18 at 16:45; Status UNV Pantoprazole Sodium (PROTONIX VIAL for IV PUSH) 40 mg DAILYAC IVP ; Start at 07:30; Status UNV Enoxaparin Sodium (Lovenox 40mg Syringe) 40 mg Q24H SQ Last administered on at 20:42; Start 03/26/18 at 21:00 Albuterol Sulfate (Ventolin Neb Soln) 2.5 mg PRN Q2HRS PRN NEB SHORTNESS OF BREATH; Start 03/26/18 at 17:00 Non-Formulary Medication (Albuterol Sulfate (Proair Hfa Inhaler)) 1 puff PRN Q4HRS PRN INH SHORTNESS OF BREATH; Start 03/26/18 at 16:45; Status UNV Non-Formulary Medication (Budesonide/ Formoterol Fumarate (Symbicort 160-4.5 Mcg Inhaler)) 2 puff BID IH ; Start 03/26/18 at 21:00; Status UNV Theophylline (Theodur) 300 mg BID PO Last administered on 03/28/18at 07:48; Start 03/26/18 at 21:00 Budesonide (Pulmicort) 0.5 mg RTBID NEB Last administered on 03/28/18at 07:33; Start 03/26/18 at 20:00 Albuterol Sulfate (Ventolin Neb Soln) 2.5 mg RTQID NEB Last administered on at 11:58; Start 03/26/18 at 20:00 Sodium Chloride 1,000 ml @ 1,000 mls/hr 1X ONCE IV Last administered on at 12:23; Start 03/27/18 at 12:15; Stop 03/27/18 at 13:14; Status DC Sodium Chloride 1,000 ml @ 1,000 mls/hr 1X ONCE IV Last administered on at 13:05; Start 03/27/18 at 12:15; Stop 03/27/18 at 13:14; Status DC Sodium Chloride 1,000 ml @ 1,000 mls/hr 1X ONCE IV Last administered on at 14:11; Start 03/27/18 at 12:15; Stop 03/27/18 at 13:14; Status DC Sodium Chloride 136 ml @ 500 mls/hr 1X ONCE IV Last administered on at 12:15; Start 03/27/18 at 12:15; Stop 03/27/18 at 12:31; Status DC Piperacillin Sod/ Tazobactam Sod 3.375 gm/Sodium Chloride 50 ml @ 100 mls/hr Q6HRS IV Last administered on 03/28/18at 11:05; Start 03/27/18 at 16:00 Morphine Sulfate (Morphine Sulfate) 2 mg PRN Q2HR PRN IV PAIN Last administered on 03/28/18at 11:26; Start 03/27/18 at 16:45 Ondansetron HCl (Zofran) 4 mg PRN Q6HRS PRN IV NAUSEA/VOMITING Last administered on 03/28/18at 02:34; Start 03/27/18 at 16:45 Sodium Chloride 1,000 ml @ 125 mls/hr Q8H IV Last administered on 03/28/18at 08 :00; Start 03/27/18 at 17:45 Active Scripts Active Diazepam 5 Mg Tablet 5 Mg PO DAILY Reported Proair Hfa Inhaler (Albuterol Sulfate) 8.5 Gm Hfa.aer.ad 1 Puff INH PRN Q4HRS PRN Duoneb 0.5-3(2.5) Mg/3 Ml (Albuterol/Ipratropium) 3 Ml Ampul.neb 3 Ml NEB Q2HR PRN Symbicort 160-4.5 Mcg Inhaler (Budesonide/Formoterol Fumarate) 10.2 Gm Hfa.aer.ad 2 Puff IH BID Prilosec Otc (Omeprazole Magnesium) 20 Mg Tablet.dr 1 Tab PO DAILY Theophylline (Theophylline Anhydrous) 400 Mg Tablet.er 300 Mg PO BID Vitals/I & O Vital Sign - Last 24 Hours 03/27/18 03/27/18 03/27/18 03/27/18 12:30 13:07 14:03 14:45 Temp 98.0 98.7 98.0 98.7 Pulse 141 137 Resp 20 18 B/P (MAP) 125/70 (88) 150/71 (97) Pulse Ox 94 94 O2 Delivery Room Air Room Air Room Air Room Air 03/27/18 03/27/18 03/27/18 03/27/18 15:12 15:43 15:55 16:16 Temp 98.1 98.3 98.1 98.3 Pulse 125 131 Resp 18 18 B/P (MAP) 113/66 (82) 99/73 (82) Pulse Ox 100 94 96 O2 Delivery Room Air Room Air Room Air Room Air 03/27/18 03/27/18 03/27/18 03/27/18 16:59 18:01 19:00 19:15 Temp 98.6 98.9 98.6 98.9 Pulse 150 140 137 Resp 22 20 24 B/P (MAP) 102/73 (83) 114/86 (95) 111/66 (81) Pulse Ox 91 95 95 O2 Delivery Room Air Room Air Room Air Room Air 03/27/18 03/27/18 03/27/18 03/27/18 19:26 20:00 21:00 22:10 Temp 98.6 98.6 Pulse 138 148 141 Resp 22 24 22 B/P (MAP) 109/68 (82) 143/67 (92) 136/96 (109) Pulse Ox 93 95 95 94 O2 Delivery Room Air Room Air Room Air Room Air 03/27/18 03/27/18 03/28/18 03/28/18 23:17 23:59 00:05 02:13 Temp 98.8 98.8 Pulse 145 145 138 Resp 20 22 20 B/P (MAP) 135/69 (91) 113/65 (81) 131/93 (106) Pulse Ox 93 96 94 O2 Delivery Room Air Room Air Room Air Room Air 03/28/18 03/28/18 03/28/18 03/28/18 02:34 03:00 03:30 04:00 Temp 99.5 99.5 Pulse 137 136 Resp 20 20 20 B/P (MAP) 84/64 (71) 106/73 (84) Pulse Ox 94 96 94 O2 Delivery Room Air Room Air Room Air Room Air 03/28/18 03/28/18 03/28/18 03/28/18 05:00 06:00 07:00 07:01 Temp 99.9 99.9 Pulse 132 130 135 Resp 24 24 22 B/P (MAP) 116/73 (87) 117/73 (88) 134/76 (95) Pulse Ox 95 95 94 O2 Delivery Room Air Room Air Room Air Room Air 03/28/18 03/28/18 03/28/18 03/28/18 07:39 07:54 08:00 08:02 Pulse 128 Resp 24 24 B/P (MAP) 118/78 (91) Pulse Ox 96 95 96 O2 Delivery Room Air Room Air Room Air Room Air 03/28/18 03/28/18 03/28/18 03/28/18 08:35 09:00 10:00 11:01 Temp 98.9 98.9 Pulse 128 130 128 Resp 24 24 24 24 B/P (MAP) 119/81 (94) 116/80 (92) Pulse Ox 96 97 94 95 O2 Delivery Room Air Room Air Room Air Room Air 03/28/18 03/28/18 11:26 12:01 Resp 25 Pulse Ox 95 96 O2 Delivery Room Air Room Air Intake and Output 03/27/18 03/27/18 03/28/18 15:00 23:00 07:00 Intake Total 2000 ml 1196 ml 1703 ml Output Total 0 ml 575 ml 420 ml Balance 2000 ml 621 ml 1283 ml MAY FROST III DO Mar 28, 2018 12:21
[2018-03-28] MEDS: ENOXAPARIN 40 MG/0.4 ML SYRINGE. SQ SCH (20:46)
[2018-03-29] VITALS (12 sets, daily range): BP systolic 82–132; BP diastolic 53–74
[2018-03-29] MEDS ORDERED: OPIUM/BELLADONNA 30/16.2MG SUPP.RECT. PR PRN (01:45)
[2018-03-29] MEDS: IV NORMAL SALINE 1000ML BAG 1,000 ML IV SCH ×2 (02:09→10:14)
[2018-03-29] MEDS: diazePAM 5 MG TABLET PO PRN (02:47)
[2018-03-29] MEDS: HALOPERIDOL LACTATE 5 MG/ML VIAL. IVP PRN (03:52)
[2018-03-29 05:22] LABS: BASO % 0 % (0-3); EOS % 0 % (0-3); HEMOGLOBIN 10.1 g/dL (13.0-17.5); LYMPH # 0.8 x10^3/uL (1.0-4.8); LYMPH % 10 % (24-48); MEAN CORPUSCULAR HEMOGLOBIN 26 pg (25-35); MEAN CORPUSCULAR HGB CONC 34 g/dL (31-37); MEAN CORPUSCULAR VOLUME 77 fL (79-100); MONO # 0.7 x10^3/uL (0.0-1.1); MONO % 9 % (0-9); NEUT # 6.5 x10^3uL (1.8-7.7); NEUT % 81 % (31-73); PLATELET COUNT 99 x10^3/uL (140-400); RED BLOOD COUNT 3.92 x10^6/uL (4.30-5.70); RED CELL DISTRIBUTION WIDTH 16.4 % (11.5-14.5); WHITE BLOOD COUNT 8.1 x10^3/uL (4.0-11.0)
[2018-03-29 05:31] LABS: CALCIUM 7.7 mg/dL (8.5-10.1); CREATININE 1.1 mg/dL (0.7-1.3); GFR 73.8; POTASSIUM 3.3 mmol/L (3.5-5.1)
[2018-03-29] MEDS: PIPERACILLIN/TAZOBACTAM 3.375 GM in IV NORMAL SALINE 50ML 50 ML IV SCH ×4 (05:44→23:45)
[2018-03-29] MEDS: MORPHINE SULFATE 2 MG/ML VIAL. IV PRN ×7 (07:28→21:20)
[2018-03-29] MEDS: THEOPHYLLINE 12HR ER 300 MG TAB.ER.12H. PO SCH ×2 (07:50→21:00)
[2018-03-29] MEDS: PANTOPRAZOLE IV PUSH 40 MG VIAL. IVP SCH (07:50)
[2018-03-29] MEDS: BUDESONIDE 0.5 MG/2 ML NEBU. NEB SCH ×2 (08:00→19:47)
[2018-03-29] MEDS: ALBUTEROL SULFATE 2.5 MG/3 ML NEBU. NEB SCH ×4 (08:00→19:47)
[2018-03-29] MEDS: diphenhydrAMINE 50 MG/ML VIAL IVP PRN (08:25)
[2018-03-29] MEDS ORDERED: ATROPINE 0.5 MG/5 ML DISP.SYRINGE. IV PRN (08:30)
[2018-03-29] MEDS ORDERED: IV NORMAL SALINE 500ML BAG 500 ML IV PRN (08:30)
[2018-03-29] MEDS: MULTIVIT INFUSN,ADULT 4,VIT K 10 ML, THIAMINE INJ 100 MG, FOLIC ACID INJ 1 MG in IV NOR... IV SCH (08:53)
[2018-03-29] MEDS: DEXMEDETOMIDINE 200 MCG in IV NORMAL SALINE 50ML 48 ML IV PRN ×2 (08:53→17:03)
--- NOTE | 2018-03-29 08:55 | PDOC ---
Infectious Disease Note Subjective Subjective Per RN, patient did not sleep. He was confused and agitated all night. Now calm after dose Ativan No fevers, vomiting or diarrhea reported ROS ROS ROS unobtainable as patient is resting quietly now after a night of confusion and agitation. I didn't try to waken him at his time Vital Sign Vital Signs Vital Signs Date Time Temp Pulse Resp B/P (MAP) Pulse Ox O2 Delivery O2 Flow Rate FiO2 03/29/18 07:42 Room Air 03/29/18 07:28 22 03/29/18 07:00 99.9 132 132/74 (93) 96 99.9 Physical Exam PHYSICAL EXAM GENERAL: Resting quietly, LUNGS: Breathing nonlabored CV: Regular ABD: Obese : Kramer out EXT: No gross edema or cyanosis PIV Labs Lab Laboratory Tests Test 03/29/18 04:00 White Blood Count 8.1 x10^3/uL (4.0-11.0) Red Blood Count 3.92 x10^6/uL (4.30-5.70) Hemoglobin 10.1 g/dL (13.0-17.5) Hematocrit 30.0 % (39.0-53.0) Mean Corpuscular Volume 77 fL (79-100) Mean Corpuscular Hemoglobin 26 pg (25-35) Mean Corpuscular Hemoglobin Concent 34 g/dL (31-37) Red Cell Distribution Width 16.4 % (11.5-14.5) Platelet Count 99 x10^3/uL (140-400) Neutrophils (%) (Auto) 81 % (31-73) Lymphocytes (%) (Auto) 10 % (24-48) Monocytes (%) (Auto) 9 % (0-9) Eosinophils (%) (Auto) 0 % (0-3) Basophils (%) (Auto) 0 % (0-3) Neutrophils # (Auto) 6.5 x10^3uL (1.8-7.7) Lymphocytes # (Auto) 0.8 x10^3/uL (1.0-4.8) Monocytes # (Auto) 0.7 x10^3/uL (0.0-1.1) Eosinophils # (Auto) 0.0 x10^3/uL (0.0-0.7) Basophils # (Auto) 0.0 x10^3/uL (0.0-0.2) Sodium Level 141 mmol/L (136-145) Potassium Level 3.3 mmol/L (3.5-5.1) Chloride Level 107 mmol/L (98-107) Carbon Dioxide Level 25 mmol/L (21-32) Anion Gap 9 (6-14) Blood Urea Nitrogen 11 mg/dL (8-26) Creatinine 1.1 mg/dL (0.7-1.3) Estimated GFR (Cockcroft-Gault) 73.8 Glucose Level 118 mg/dL (70-99) Calcium Level 7.7 mg/dL (8.5-10.1) Micro Microbiology 03/27/18 Blood Culture - Preliminary, Resulted NO GROWTH AFTER 1 DAY Objective Assessment Leukocytosis may have been reactive, although lactic acidosis is concerning for infection, WBC and lactic acid are better Pancreatitis, lipase up to 1922 Encephalopathy, probably medication related ZAIRA - improved Alcoholism with DTs Hypertension Thrombocytopenia Plan Plan of Care Zosyn Continue to monitor platelets BC from 03/27 NGTD Withdrawal precautions D/w RN Attending Co-Sign The patient was seen and interviewed as well as examined at the bedside. The chart was reviewed. The case was discussed. Agree with the plan of care. ALESHA ELMORE APRN Mar 29, 2018 08:55 DIANNA VALENTE MD Mar 29, 2018 11:35
--- NOTE | 2018-03-29 13:14 | PDOC ---
PROGRESS NOTES Chief Complaint Chief Complaint Pancreatitis Alcohol abuse Asthma GERD HTN History of Present Illness History of Present Illness Pt seen and examined in ICU Dw RN Pt on 1:1 Pt with NAD. on IV Presidex Vitals Vitals Vital Signs Date Time Temp Pulse Resp B/P (MAP) Pulse Ox O2 Delivery O2 Flow Rate FiO2 03/29/18 12:00 25 93 Nasal Cannula 4.0 03/29/18 11:00 100.1 118 107/61 (76) 100.1 Physical Exam Physical Exam GENERAL: Resting quietly, LUNGS: Breathing nonlabored CV: Regular ABD: Obese : Kramer out EXT: No gross edema or cyanosis PIV General: No acute distress Heart: Regular rate Lungs: Clear, Other Abdomen: Soft, No masses Extremities: No cyanosis, No edema Skin: No rashes, No breakdown Labs LABS Laboratory Tests Test 03/29/18 04:00 White Blood Count 8.1 x10^3/uL (4.0-11.0) Red Blood Count 3.92 x10^6/uL (4.30-5.70) Hemoglobin 10.1 g/dL (13.0-17.5) Hematocrit 30.0 % (39.0-53.0) Mean Corpuscular Volume 77 fL (79-100) Mean Corpuscular Hemoglobin 26 pg (25-35) Mean Corpuscular Hemoglobin Concent 34 g/dL (31-37) Red Cell Distribution Width 16.4 % (11.5-14.5) Platelet Count 99 x10^3/uL (140-400) Neutrophils (%) (Auto) 81 % (31-73) Lymphocytes (%) (Auto) 10 % (24-48) Monocytes (%) (Auto) 9 % (0-9) Eosinophils (%) (Auto) 0 % (0-3) Basophils (%) (Auto) 0 % (0-3) Neutrophils # (Auto) 6.5 x10^3uL (1.8-7.7) Lymphocytes # (Auto) 0.8 x10^3/uL (1.0-4.8) Monocytes # (Auto) 0.7 x10^3/uL (0.0-1.1) Eosinophils # (Auto) 0.0 x10^3/uL (0.0-0.7) Basophils # (Auto) 0.0 x10^3/uL (0.0-0.2) Sodium Level 141 mmol/L (136-145) Potassium Level 3.3 mmol/L (3.5-5.1) Chloride Level 107 mmol/L (98-107) Carbon Dioxide Level 25 mmol/L (21-32) Anion Gap 9 (6-14) Blood Urea Nitrogen 11 mg/dL (8-26) Creatinine 1.1 mg/dL (0.7-1.3) Estimated GFR (Cockcroft-Gault) 73.8 Glucose Level 118 mg/dL (70-99) Calcium Level 7.7 mg/dL (8.5-10.1) Review of Systems Review of Systems Unable to obtain Assessment and Plan Assessmemt and Plan Problems Medical Problems: (1) Alcoholic pancreatitis Status: Acute (2) ETOH abuse Status: Acute Plan Replace K+ ICU Presidex ETOH Protocol Labs Home meds Prog garded Comment Review of Relevant I have reviewed the following items wali (where applicable) has been applied. Labs Laboratory Tests Test 03/27/18 14:35 03/27/18 18:25 03/28/18 05:00 03/29/18 04:00 Lactic Acid Level 3.7 mmol/L (0.4-2.0) 4.0 mmol/L (0.4-2.0) 2.2 mmol/L (0.4-2.0) White Blood Count 16.9 x10^3/uL (4.0-11.0) 8.1 x10^3/uL (4.0-11.0) Red Blood Count 5.09 x10^6/uL (4.30-5.70) 3.92 x10^6/uL (4.30-5.70) Hemoglobin 12.8 g/dL (13.0-17.5) 10.1 g/dL (13.0-17.5) Hematocrit 38.7 % (39.0-53.0) 30.0 % (39.0-53.0) Mean Corpuscular Volume 76 fL (79-100) 77 fL (79-100) Mean Corpuscular Hemoglobin 25 pg (25-35) 26 pg (25-35) Mean Corpuscular Hemoglobin Concent 33 g/dL (31-37) 34 g/dL (31-37) Red Cell Distribution Width 16.3 % (11.5-14.5) 16.4 % (11.5-14.5) Platelet Count 143 x10^3/uL (140-400) 99 x10^3/uL (140-400) Neutrophils (%) (Auto) 86 % (31-73) 81 % (31-73) Lymphocytes (%) (Auto) 7 % (24-48) 10 % (24-48) Monocytes (%) (Auto) 6 % (0-9) 9 % (0-9) Eosinophils (%) (Auto) 0 % (0-3) 0 % (0-3) Basophils (%) (Auto) 0 % (0-3) 0 % (0-3) Neutrophils # (Auto) 14.6 x10^3uL (1.8-7.7) 6.5 x10^3uL (1.8-7.7) Lymphocytes # (Auto) 1.2 x10^3/uL (1.0-4.8) 0.8 x10^3/uL (1.0-4.8) Monocytes # (Auto) 1.0 x10^3/uL (0.0-1.1) 0.7 x10^3/uL (0.0-1.1) Eosinophils # (Auto) 0.0 x10^3/uL (0.0-0.7) 0.0 x10^3/uL (0.0-0.7) Basophils # (Auto) 0.0 x10^3/uL (0.0-0.2) 0.0 x10^3/uL (0.0-0.2) Sodium Level 138 mmol/L (136-145) 141 mmol/L (136-145) Potassium Level 4.0 mmol/L (3.5-5.1) 3.3 mmol/L (3.5-5.1) Chloride Level 107 mmol/L (98-107) 107 mmol/L (98-107) Carbon Dioxide Level 21 mmol/L (21-32) 25 mmol/L (21-32) Anion Gap 10 (6-14) 9 (6-14) Blood Urea Nitrogen 22 mg/dL (8-26) 11 mg/dL (8-26) Creatinine 1.5 mg/dL (0.7-1.3) 1.1 mg/dL (0.7-1.3) Estimated GFR (Cockcroft-Gault) 51.6 73.8 Glucose Level 141 mg/dL (70-99) 118 mg/dL (70-99) Calcium Level 8.0 mg/dL (8.5-10.1) 7.7 mg/dL (8.5-10.1) Lipase 1922 U/L (73-393) Laboratory Tests Test 03/29/18 04:00 White Blood Count 8.1 x10^3/uL (4.0-11.0) Red Blood Count 3.92 x10^6/uL (4.30-5.70) Hemoglobin 10.1 g/dL (13.0-17.5) Hematocrit 30.0 % (39.0-53.0) Mean Corpuscular Volume 77 fL (79-100) Mean Corpuscular Hemoglobin 26 pg (25-35) Mean Corpuscular Hemoglobin Concent 34 g/dL (31-37) Red Cell Distribution Width 16.4 % (11.5-14.5) Platelet Count 99 x10^3/uL (140-400) Neutrophils (%) (Auto) 81 % (31-73) Lymphocytes (%) (Auto) 10 % (24-48) Monocytes (%) (Auto) 9 % (0-9) Eosinophils (%) (Auto) 0 % (0-3) Basophils (%) (Auto) 0 % (0-3) Neutrophils # (Auto) 6.5 x10^3uL (1.8-7.7) Lymphocytes # (Auto) 0.8 x10^3/uL (1.0-4.8) Monocytes # (Auto) 0.7 x10^3/uL (0.0-1.1) Eosinophils # (Auto) 0.0 x10^3/uL (0.0-0.7) Basophils # (Auto) 0.0 x10^3/uL (0.0-0.2) Sodium Level 141 mmol/L (136-145) Potassium Level 3.3 mmol/L (3.5-5.1) Chloride Level 107 mmol/L (98-107) Carbon Dioxide Level 25 mmol/L (21-32) Anion Gap 9 (6-14) Blood Urea Nitrogen 11 mg/dL (8-26) Creatinine 1.1 mg/dL (0.7-1.3) Estimated GFR (Cockcroft-Gault) 73.8 Glucose Level 118 mg/dL (70-99) Calcium Level 7.7 mg/dL (8.5-10.1) Microbiology 03/27/18 Blood Culture - Preliminary, Resulted NO GROWTH AFTER 1 DAY Medications Current Medications Multivitamins 10 ml/Thiamine HCl 100 mg/Folic Acid 1 mg/Sodium Chloride 1,011.2 ml @ 1,000.088 mls/hr 1X ONCE IV Last administered on 03/26/18at 15:07; Start 03/26/18 at 14:00; Stop 03/26/18 at 15:00; Status DC Ondansetron HCl (Zofran) 4 mg 1X ONCE IV Last administered on 03/26/18at 14:13 ; Start 03/26/18 at 14:00; Stop 03/26/18 at 14:10; Status DC Pantoprazole Sodium (PROTONIX VIAL for IV PUSH) 40 mg 1X ONCE IVP Last administered on 03/26/18at 14:13; Start 03/26/18 at 14:00; Stop 03/26/18 at 14:10 ; Status DC Pantoprazole Sodium (PROTONIX VIAL for IV PUSH) 40 mg STK-MED ONCE IVP ; Start 03/26/18 at 14:10; Stop 03/26/18 at 14:11; Status DC Ondansetron HCl (Zofran) 4 mg STK-MED ONCE .ROUTE ; Start 03/26/18 at 14:10; Stop 03/26/18 at 14:11; Status DC Iohexol (Omnipaque 300 Mg/ml) 75 ml 1X ONCE IV Last administered on 03/26/18at 14:38; Start 03/26/18 at 14:45; Stop 03/26/18 at 14:46; Status DC Iohexol (Omnipaque 300 Mg/ml) 100 ml STK-MED ONCE .ROUTE ; Start 03/26/18 at 14: 38; Stop 03/26/18 at 14:39; Status DC Info (CONTRAST GIVEN -- Rx MONITORING) 1 each PRN DAILY PRN MC SEE COMMENTS; Start 03/26/18 at 14:45; Stop 03/28/18 at 14:44; Status DC Ondansetron HCl (Zofran) 4 mg 1X ONCE IV Last administered on 03/26/18at 15:08 ; Start 03/26/18 at 15:00; Stop 03/26/18 at 15:01; Status DC Morphine Sulfate (Morphine Sulfate) 5 mg 1X ONCE IV Last administered on at 15:09; Start 03/26/18 at 15:00; Stop 03/26/18 at 15:01; Status DC Ondansetron HCl (Zofran) 4 mg PRN Q8HRS PRN IV NAUSEA/VOMITING Last administered on 03/27/18at 12:22; Start 03/26/18 at 15:15; Stop 03/27/18 at 15:14 ; Status DC Morphine Sulfate (Morphine Sulfate) 4 mg PRN Q2HR PRN IV PAIN Last administered on 03/27/18at 15:12; Start 03/26/18 at 15:15; Stop 03/27/18 at 15:14 ; Status DC Multivitamins 10 ml/Thiamine HCl 100 mg/Folic Acid 1 mg/Sodium Chloride 1,011.2 ml @ 100 mls/ hr DAILY IV Last administered on 03/29/18at 08:53; Start at 16:00; Stop 03/30/18 at 19:07 Lorazepam (Ativan) 2 mg PRN Q1HR PRN IV For CIWA 8-14 Last administered on 03/26at 15:59; Start 03/26/18 at 15:15; Stop 03/26/18 at 16:43; Status DC Sodium Chloride 1,000 ml @ 125 mls/hr 1X ONCE IV Last administered on at 02:10; Start 03/26/18 at 15:15; Stop 03/26/18 at 23:14; Status DC Pantoprazole Sodium (PROTONIX VIAL for IV PUSH) 40 mg DAILYAC IVP Last administered on 03/29/18at 07:50; Start 03/27/18 at 07:30 Multivitamins 10 ml/Thiamine HCl 100 mg/Folic Acid 1 mg/Sodium Chloride 1,011.2 ml @ 100 mls/ hr DAILY IV ; Start 03/27/18 at 09:00; Stop 03/31/18 at 19:07; Status UNV Multivitamins (Thera M Plus) 1 tab DAILY PO ; Start 03/31/18 at 09:00 Folic Acid (Folic Acid) 1 mg DAILY PO ; Start 03/31/18 at 09:00 Thiamine HCl 100 mg/Dextrose 51 ml @ 100 mls/hr DAILY IV ; Start 03/27/18 at 09 :00; Stop 03/31/18 at 09:31; Status UNV Lorazepam (Ativan) 2 mg Q6H PO Last administered on 03/26/18at 22:19; Start at 17:00; Stop 03/27/18 at 01:47; Status DC Lorazepam (Ativan) 4 mg PRN Q1HR PRN PO For CIWA 8-14; Start 03/26/18 at 16:45 Lorazepam (Ativan) 2 mg PRN Q1HR PRN IV For CIWA 8-14 Last administered on 03/28at 23:47; Start 03/26/18 at 16:45 Lorazepam (Ativan) 4 mg PRN Q1HR PRN IV For CIWA 15 or greater Last administered on 03/29/18at 08:27; Start 03/26/18 at 16:45 Haloperidol Lactate (Haldol Inj) 5 mg PRN Q4HRS PRN IVP Hallucinatns,Confusn, Delirium Last administered on 03/29/18at 03:52; Start 03/26/18 at 16:45 Diphenhydramine HCl (Benadryl) 25 mg PRN Q15MIN PRN IVP EPS symptoms 2'Haldol admin Last administered on 03/29/18at 08:25; Start 03/26/18 at 16:45 Clonidine HCl (Catapres) 0.1 mg PRN Q1HR PRN PO SBP > 180 or DBP > 100, MRX3 Last administered on 03/27/18at 05:28; Start 03/26/18 at 16:45 Lorazepam (Ativan) 2 mg PRN Q15MIN PRN IV ; Start 03/26/18 at 16:45; Status UNV Lorazepam (Ativan) 4 mg PRN Q15MIN PRN IV ; Start 03/26/18 at 16:45; Status UNV Pantoprazole Sodium (PROTONIX VIAL for IV PUSH) 40 mg DAILYAC IVP ; Start at 07:30; Status UNV Enoxaparin Sodium (Lovenox 40mg Syringe) 40 mg Q24H SQ Last administered on at 20:46; Start 03/26/18 at 21:00 Albuterol Sulfate (Ventolin Neb Soln) 2.5 mg PRN Q2HRS PRN NEB SHORTNESS OF BREATH Last administered on 03/29/18at 04:12; Start 03/26/18 at 17:00 Non-Formulary Medication (Albuterol Sulfate (Proair Hfa Inhaler)) 1 puff PRN Q4HRS PRN INH SHORTNESS OF BREATH; Start 03/26/18 at 16:45; Status UNV Non-Formulary Medication (Budesonide/ Formoterol Fumarate (Symbicort 160-4.5 Mcg Inhaler)) 2 puff BID IH ; Start 03/26/18 at 21:00; Status UNV Theophylline (Theodur) 300 mg BID PO Last administered on 03/29/18at 07:50; Start 03/26/18 at 21:00 Budesonide (Pulmicort) 0.5 mg RTBID NEB Last administered on 03/28/18at 19:30; Start 03/26/18 at 20:00 Albuterol Sulfate (Ventolin Neb Soln) 2.5 mg RTQID NEB Last administered on at 19:30; Start 03/26/18 at 20:00 Sodium Chloride 1,000 ml @ 1,000 mls/hr 1X ONCE IV Last administered on at 12:23; Start 03/27/18 at 12:15; Stop 03/27/18 at 13:14; Status DC Sodium Chloride 1,000 ml @ 1,000 mls/hr 1X ONCE IV Last administered on at 13:05; Start 03/27/18 at 12:15; Stop 03/27/18 at 13:14; Status DC Sodium Chloride 1,000 ml @ 1,000 mls/hr 1X ONCE IV Last administered on at 14:11; Start 03/27/18 at 12:15; Stop 03/27/18 at 13:14; Status DC Sodium Chloride 136 ml @ 500 mls/hr 1X ONCE IV Last administered on at 12:15; Start 03/27/18 at 12:15; Stop 03/27/18 at 12:31; Status DC Piperacillin Sod/ Tazobactam Sod 3.375 gm/Sodium Chloride 50 ml @ 100 mls/hr Q6HRS IV Last administered on 03/29/18at 11:03; Start 03/27/18 at 16:00 Morphine Sulfate (Morphine Sulfate) 2 mg PRN Q2HR PRN IV PAIN Last administered on 03/29/18at 11:27; Start 03/27/18 at 16:45 Ondansetron HCl (Zofran) 4 mg PRN Q6HRS PRN IV NAUSEA/VOMITING Last administered on 03/28/18at 02:34; Start 03/27/18 at 16:45 Sodium Chloride 1,000 ml @ 125 mls/hr Q8H IV Last administered on 03/29/18at 10 :14; Start 03/27/18 at 17:45 Diazepam (Valium) 5 mg PRN Q2HR PRN PO Agitation/Alcohol withdraw Last administered on 03/29/18at 02:47; Start 03/29/18 at 01:45 Belladonna Alkaloids/Opium (B & O) 1 supp PRN Q12HR PRN [place] BLADDER SPASM Last administered on 03/29/18at 02:58; Start 03/29/18 at 01:45 Dexmedetomidine HCl 200 mcg/ Sodium Chloride 50 ml @ 0 mls/hr CONT PRN IV PER PROTOCOL Last administered on 03/29/18at 08:53; Start 03/29/18 at 08:30 Sodium Chloride 500 ml @ 500 mls/hr 1X PRN PRN IV SEE COMMENTS; Start at 08:30 Atropine Sulfate (ATROPINE 0.5mg SYRINGE) 0.5 mg PRN Q5MIN PRN IV SEE COMMENTS ; Start 03/29/18 at 08:30 Active Scripts Active Diazepam 5 Mg Tablet 5 Mg PO DAILY Reported Proair Hfa Inhaler (Albuterol Sulfate) 8.5 Gm Hfa.aer.ad 1 Puff INH PRN Q4HRS PRN Duoneb 0.5-3(2.5) Mg/3 Ml (Albuterol/Ipratropium) 3 Ml Ampul.neb 3 Ml NEB Q2HR PRN Symbicort 160-4.5 Mcg Inhaler (Budesonide/Formoterol Fumarate) 10.2 Gm Hfa.aer.ad 2 Puff IH BID Prilosec Otc (Omeprazole Magnesium) 20 Mg Tablet.dr 1 Tab PO DAILY Theophylline (Theophylline Anhydrous) 400 Mg Tablet.er 300 Mg PO BID Vitals/I & O Vital Sign - Last 24 Hours 03/28/18 03/28/18 03/28/18 03/28/18 13:39 14:00 15:00 15:44 Temp 98.8 98.8 Pulse 130 130 Resp 24 24 24 B/P (MAP) 140/77 (98) Pulse Ox 93 93 95 96 O2 Delivery Room Air Room Air Room Air Room Air 03/28/18 03/28/18 03/28/18 03/28/18 16:51 19:08 19:08 19:30 Temp 98.3 98.3 Pulse 128 Resp 28 B/P (MAP) 119/66 (83) Pulse Ox 96 93 96 O2 Delivery Room Air Room Air Room Air Room Air 03/28/18 03/28/18 03/29/18 03/29/18 19:38 23:06 02:00 02:39 Temp 97.8 97.8 Pulse 136 Resp 30 B/P (MAP) 131/60 (83) Pulse Ox 92 92 O2 Delivery Room Air Room Air BiPAP/CPAP BiPAP/CPAP 03/29/18 03/29/18 03/29/18 03/29/18 02:58 03:58 07:00 07:28 Temp 97.8 99.9 97.8 99.9 Pulse 130 132 Resp 32 22 B/P (MAP) 120/70 (87) 132/74 (93) Pulse Ox 92 96 O2 Delivery Room Air Room Air Room Air Room Air 03/29/18 03/29/18 03/29/18 03/29/18 07:42 09:35 11:00 11:27 Temp 100.1 100.1 Pulse 118 Resp 25 B/P (MAP) 107/61 (76) Pulse Ox 97 94 93 O2 Delivery Room Air Room Air Nasal Cannula Nasal Cannula O2 Flow Rate 4.0 4.0 03/29/18 12:00 Resp 25 Pulse Ox 93 O2 Delivery Nasal Cannula O2 Flow Rate 4.0 Intake and Output 03/28/18 03/28/18 03/29/18 15:00 23:00 07:00 Intake Total 275 ml 2115 ml 1475 ml Output Total 555 ml 130 ml 700 ml Balance -280 ml 1985 ml 775 ml MAY FROST III DO Mar 29, 2018 13:14
[2018-03-29] MEDS ORDERED: POTASSIUM CHLORIDE 20 MEQ TABLET.ER. PO ONE (13:15)
[2018-03-29] MEDS: ENOXAPARIN 40 MG/0.4 ML SYRINGE. SQ SCH (21:20)
[2018-03-30] VITALS (23 sets, daily range): BP systolic 110–175; BP diastolic 57–99
[2018-03-30] MEDS: DEXMEDETOMIDINE 200 MCG in IV NORMAL SALINE 50ML 48 ML IV PRN ×12 (01:53→22:27)
[2018-03-30 04:50] LABS: BASO % 0 % (0-3); EOS # 0.1 x10^3/uL (0.0-0.7); EOS % 1 % (0-3); HEMATOCRIT 26.8 % (39.0-53.0); HEMOGLOBIN 8.9 g/dL (13.0-17.5); LYMPH # 0.9 x10^3/uL (1.0-4.8); LYMPH % 11 % (24-48); MEAN CORPUSCULAR HEMOGLOBIN 26 pg (25-35); MEAN CORPUSCULAR HGB CONC 33 g/dL (31-37); MEAN CORPUSCULAR VOLUME 79 fL (79-100); MONO # 0.8 x10^3/uL (0.0-1.1); MONO % 9 % (0-9); NEUT # 6.5 x10^3uL (1.8-7.7); NEUT % 78 % (31-73); PLATELET COUNT 116 x10^3/uL (140-400); RED BLOOD COUNT 3.42 x10^6/uL (4.30-5.70); RED CELL DISTRIBUTION WIDTH 17.2 % (11.5-14.5); WHITE BLOOD COUNT 8.4 x10^3/uL (4.0-11.0)
[2018-03-30 04:59] LABS: CALCIUM 7.8 mg/dL (8.5-10.1); GFR 82.3; POTASSIUM 3.9 mmol/L (3.5-5.1)
[2018-03-30] MEDS: MORPHINE SULFATE 2 MG/ML VIAL. IV PRN ×3 (05:14→15:12)
[2018-03-30] MEDS: PIPERACILLIN/TAZOBACTAM 3.375 GM in IV NORMAL SALINE 50ML 50 ML IV SCH ×4 (05:15→23:58)
[2018-03-30] MEDS: PANTOPRAZOLE IV PUSH 40 MG VIAL. IVP SCH (07:52)
[2018-03-30] MEDS: MULTIVIT INFUSN,ADULT 4,VIT K 10 ML, THIAMINE INJ 100 MG, FOLIC ACID INJ 1 MG in IV NOR... IV SCH (07:52)
[2018-03-30] MEDS: BUDESONIDE 0.5 MG/2 ML NEBU. NEB SCH ×2 (08:25→19:59)
[2018-03-30] MEDS: ALBUTEROL SULFATE 2.5 MG/3 ML NEBU. NEB SCH ×2 (08:25→12:28)
[2018-03-30] MEDS: HALOPERIDOL LACTATE 5 MG/ML VIAL. IVP PRN ×2 (08:44→15:11)
[2018-03-30] MEDS: THEOPHYLLINE 12HR ER 300 MG TAB.ER.12H. PO SCH ×2 (08:45→20:32)
--- NOTE | 2018-03-30 10:51 | PDOC ---
Objective: Objective: D/w RN - earlier twas eating ice chips by himself and tolerating some sips of water, then was very agitated, now medicated and on CPAP while attempting to rest (which he uses at home). Believes much of agitation caused by wanting to eat and drink. Vital Signs: Vital Signs Date Time Temp Pulse Resp B/P (MAP) Pulse Ox O2 Delivery O2 Flow Rate FiO2 03/30/18 10:00 84 27 163/87 (112) 97 BiPAP/CPAP 03/30/18 08:48 4.0 03/30/18 08:00 100.2 100.2 Labs: Laboratory Tests Test 03/30/18 04:40 White Blood Count 8.4 x10^3/uL Red Blood Count 3.42 x10^6/uL Hemoglobin 8.9 g/dL Hematocrit 26.8 % Mean Corpuscular Volume 79 fL Mean Corpuscular Hemoglobin 26 pg Mean Corpuscular Hemoglobin Concent 33 g/dL Red Cell Distribution Width 17.2 % Platelet Count 116 x10^3/uL Neutrophils (%) (Auto) 78 % Lymphocytes (%) (Auto) 11 % Monocytes (%) (Auto) 9 % Eosinophils (%) (Auto) 1 % Basophils (%) (Auto) 0 % Neutrophils # (Auto) 6.5 x10^3uL Lymphocytes # (Auto) 0.9 x10^3/uL Monocytes # (Auto) 0.8 x10^3/uL Eosinophils # (Auto) 0.1 x10^3/uL Basophils # (Auto) 0.0 x10^3/uL Sodium Level 143 mmol/L Potassium Level 3.9 mmol/L Chloride Level 111 mmol/L Carbon Dioxide Level 23 mmol/L Anion Gap 9 Blood Urea Nitrogen 12 mg/dL Creatinine 1.0 mg/dL Estimated GFR (Cockcroft-Gault) 82.3 Glucose Level 99 mg/dL Calcium Level 7.8 mg/dL PE: GEN: agitated LUNGS: CPAP HEART: RRR ABD: difficult to assess w/ agitation - does not seem tender NEURO/PSYCH: muttering, swats my hands away A/P: Recurrent pancreatitis, alcohol withdrawal w/ agitation Leukocytosis - resolved Fever Anemia -- Reviewed w/ LORA Camargo. Will also recheck lipase and LFTs. Change to PO PPI. MESSI GORE Mar 30, 2018 10:51
[2018-03-30 12:03] LABS: ALBUMIN 1.8 g/dL (3.4-5.0); DIRECT BILIRUBIN 0.2 mg/dL (0.0-0.2); TOTAL BILIRUBIN 0.6 mg/dL (0.2-1.0); TOTAL PROTEIN 5.8 g/dL (6.4-8.2)
--- NOTE | 2018-03-30 13:16 | PDOC ---
Infectious Disease Note Subjective: Subjective He was agitated earlier now sedated No vomiting or diarrhea reported had fever around 12 noon ROS: ROS Negative otherwise Vital Signs: Vital Signs Vital Signs Date Time Temp Pulse Resp B/P (MAP) Pulse Ox O2 Delivery O2 Flow Rate FiO2 03/30/18 12:28 98 Nasal Cannula 5.0 03/30/18 12:00 101.4 85 28 153/91 (111) 101.4 Physical Exam: PHYSICAL EXAM GENERAL: Resting quietly, Heent fixed pupils LUNGS: Breathing nonlabored CV: Regular ABD: Obese : Kramer out EXT: No gross edema or cyanosis PIV Medications: Inpatient Meds: Current Medications Medications (Trade) Dose Ordered Sig/Wil Start Time Stop Time Status Last Admin Dose Admin Albuterol Sulfate (Ventolin Neb Soln) 2.5 mg RTQID 03/26/18 20:00 03/30/18 12:28 2.5 MG Atropine Sulfate (ATROPINE 0.5mg SYRINGE) 0.5 mg PRN Q5MIN PRN 03/29/18 08:30 Belladonna Alkaloids/Opium (B & O) 1 supp PRN Q12HR PRN 03/29/18 01:45 03/29/18 02:58 1 SUPP Budesonide (Pulmicort) 0.5 mg RTBID 03/26/18 20:00 03/30/18 08:25 0.5 MG Clonidine HCl (Catapres) 0.1 mg PRN Q1HR PRN 03/26/18 16:45 03/27/18 05:28 0.1 MG Dexmedetomidine HCl 200 mcg/ Sodium Chloride 50 ml @ 0 mls/hr CONT PRN 03/29/18 08:30 03/30/18 12:09 31.8 MLS/HR Diazepam (Valium) 5 mg PRN Q2HR PRN 03/29/18 01:45 03/29/18 02:47 5 MG Diphenhydramine HCl (Benadryl) 25 mg PRN Q15MIN PRN 03/26/18 16:45 03/29/18 08:25 25 MG Enoxaparin Sodium (Lovenox 40mg Syringe) 40 mg Q24H 03/26/18 21:00 03/29/18 21:20 40 MG Folic Acid (Folic Acid) 1 mg DAILY 03/31/18 09:00 Haloperidol Lactate (Haldol Inj) 5 mg PRN Q4HRS PRN 03/26/18 16:45 03/30/18 08:44 5 MG Info (CONTRAST GIVEN -- Rx MONITORING) 1 each PRN DAILY PRN 03/26/18 14:45 03/28/18 14:44 DC Iohexol (Omnipaque 300 Mg/ml) 100 ml STK-MED ONCE 03/26/18 14:38 03/26/18 14:39 DC Lorazepam (Ativan) 4 mg PRN Q15MIN PRN 03/26/18 16:45 UNV Morphine Sulfate (Morphine Sulfate) 2 mg PRN Q2HR PRN 03/27/18 16:45 03/30/18 08:48 2 MG Multivitamins (Thera M Plus) 1 tab DAILY 03/31/18 09:00 Multivitamins 10 ml/Thiamine HCl 100 mg/Folic Acid 1 mg/Sodium Chloride 1,011.2 ml @ 100 mls/ hr DAILY 03/27/18 09:00 03/31/18 19:07 UNV Non-Formulary Medication (Albuterol Sulfate (Proair Hfa Inhaler)) 1 puff PRN Q4HRS PRN 03/26/18 16:45 UNV Non-Formulary Medication (Budesonide/ Formoterol Fumarate (Symbicort 160-4.5 Mcg Inhaler)) 2 puff BID 03/26/18 21:00 UNV Ondansetron HCl (Zofran) 4 mg PRN Q6HRS PRN 03/27/18 16:45 03/28/18 02:34 4 MG Pantoprazole Sodium (PROTONIX VIAL for IV PUSH) 40 mg DAILYAC 03/27/18 07:30 UNV Pantoprazole Sodium (Protonix) 40 mg DAILYAC 03/31/18 07:30 Piperacillin Sod/ Tazobactam Sod 3.375 gm/Sodium Chloride 50 ml @ 100 mls/hr Q6HRS 03/27/18 16:00 03/30/18 12:42 100 MLS/HR Potassium Chloride/Sodium Chloride 1,000 ml @ 125 mls/hr Q8H 03/29/18 14:15 03/30/18 06:35 125 MLS/HR Potassium Chloride (Klor-Con) 40 meq 1X ONCE 03/29/18 13:15 03/29/18 13:16 DC 03/29/18 14:25 40 MEQ Sodium Chloride 500 ml @ 500 mls/hr 1X PRN PRN 03/29/18 08:30 Theophylline (Theodur) 300 mg BID 03/26/18 21:00 03/30/18 08:45 300 MG Thiamine HCl 100 mg/Dextrose 51 ml @ 100 mls/hr DAILY 03/27/18 09:00 03/31/18 09:31 UNV Labs: Lab Laboratory Tests Test 03/30/18 04:40 White Blood Count 8.4 x10^3/uL (4.0-11.0) Red Blood Count 3.42 x10^6/uL (4.30-5.70) Hemoglobin 8.9 g/dL (13.0-17.5) Hematocrit 26.8 % (39.0-53.0) Mean Corpuscular Volume 79 fL (79-100) Mean Corpuscular Hemoglobin 26 pg (25-35) Mean Corpuscular Hemoglobin Concent 33 g/dL (31-37) Red Cell Distribution Width 17.2 % (11.5-14.5) Platelet Count 116 x10^3/uL (140-400) Neutrophils (%) (Auto) 78 % (31-73) Lymphocytes (%) (Auto) 11 % (24-48) Monocytes (%) (Auto) 9 % (0-9) Eosinophils (%) (Auto) 1 % (0-3) Basophils (%) (Auto) 0 % (0-3) Neutrophils # (Auto) 6.5 x10^3uL (1.8-7.7) Lymphocytes # (Auto) 0.9 x10^3/uL (1.0-4.8) Monocytes # (Auto) 0.8 x10^3/uL (0.0-1.1) Eosinophils # (Auto) 0.1 x10^3/uL (0.0-0.7) Basophils # (Auto) 0.0 x10^3/uL (0.0-0.2) Sodium Level 143 mmol/L (136-145) Potassium Level 3.9 mmol/L (3.5-5.1) Chloride Level 111 mmol/L (98-107) Carbon Dioxide Level 23 mmol/L (21-32) Anion Gap 9 (6-14) Blood Urea Nitrogen 12 mg/dL (8-26) Creatinine 1.0 mg/dL (0.7-1.3) Estimated GFR (Cockcroft-Gault) 82.3 Glucose Level 99 mg/dL (70-99) Calcium Level 7.8 mg/dL (8.5-10.1) Total Bilirubin 0.6 mg/dL (0.2-1.0) Direct Bilirubin 0.2 mg/dL (0.0-0.2) Aspartate Amino Transf (AST/SGOT) 35 U/L (15-37) Alanine Aminotransferase (ALT/SGPT) 28 U/L (16-63) Alkaline Phosphatase 42 U/L (46-116) Total Protein 5.8 g/dL (6.4-8.2) Albumin 1.8 g/dL (3.4-5.0) Lipase 366 U/L (73-393) Objective: Assessment: Fever could be from inflammation,pancreatitis or other BC neg Leukocytosis may have been reactive, although lactic acidosis is concerning for infection, WBC and lactic acid are better Pancreatitis, lipase up to 1922 Encephalopathy, probably medication related ZAIRA - improved Alcoholism with DTs Hypertension Thrombocytopenia Plan: Plan of Care Zosyn add empiric micafungin Continue to monitor platelets ,slightly improved BC from 03/27 NGTD F/U CXR Withdrawal precautions D/w EDIE KNIGHT MD Mar 30, 2018 13:16
[2018-03-30] MEDS ORDERED: OLANZapine IM 10 MG VIAL. IM PRN (14:00)
--- NOTE | 2018-03-30 14:43 | PDOC ---
PROGRESS NOTES Chief Complaint Chief Complaint Pancreatitis Alcohol abuse Asthma GERD HTN Severe metabolic encephalopathy History of Present Illness History of Present Illness Pt seen and examined in ICU Dw RN Pt on 1:1 Pt with NAD. on IV Presidex and Ativan Vitals Vitals Vital Signs Date Time Temp Pulse Resp B/P (MAP) Pulse Ox O2 Delivery O2 Flow Rate FiO2 03/30/18 14:00 85 31 164/94 (117) 96 Nasal Cannula 3.0 03/30/18 12:00 101.4 101.4 Physical Exam Physical Exam GENERAL: Resting quietly, Heent fixed pupils LUNGS: Breathing nonlabored CV: Regular ABD: Obese : Kramer out EXT: No gross edema or cyanosis PIV General: No acute distress Heart: Regular rate Lungs: Clear, Other Abdomen: Soft, No masses Extremities: No cyanosis, No edema Skin: No rashes, No breakdown Labs LABS Laboratory Tests Test 03/30/18 04:40 White Blood Count 8.4 x10^3/uL (4.0-11.0) Red Blood Count 3.42 x10^6/uL (4.30-5.70) Hemoglobin 8.9 g/dL (13.0-17.5) Hematocrit 26.8 % (39.0-53.0) Mean Corpuscular Volume 79 fL (79-100) Mean Corpuscular Hemoglobin 26 pg (25-35) Mean Corpuscular Hemoglobin Concent 33 g/dL (31-37) Red Cell Distribution Width 17.2 % (11.5-14.5) Platelet Count 116 x10^3/uL (140-400) Neutrophils (%) (Auto) 78 % (31-73) Lymphocytes (%) (Auto) 11 % (24-48) Monocytes (%) (Auto) 9 % (0-9) Eosinophils (%) (Auto) 1 % (0-3) Basophils (%) (Auto) 0 % (0-3) Neutrophils # (Auto) 6.5 x10^3uL (1.8-7.7) Lymphocytes # (Auto) 0.9 x10^3/uL (1.0-4.8) Monocytes # (Auto) 0.8 x10^3/uL (0.0-1.1) Eosinophils # (Auto) 0.1 x10^3/uL (0.0-0.7) Basophils # (Auto) 0.0 x10^3/uL (0.0-0.2) Sodium Level 143 mmol/L (136-145) Potassium Level 3.9 mmol/L (3.5-5.1) Chloride Level 111 mmol/L (98-107) Carbon Dioxide Level 23 mmol/L (21-32) Anion Gap 9 (6-14) Blood Urea Nitrogen 12 mg/dL (8-26) Creatinine 1.0 mg/dL (0.7-1.3) Estimated GFR (Cockcroft-Gault) 82.3 Glucose Level 99 mg/dL (70-99) Calcium Level 7.8 mg/dL (8.5-10.1) Total Bilirubin 0.6 mg/dL (0.2-1.0) Direct Bilirubin 0.2 mg/dL (0.0-0.2) Aspartate Amino Transf (AST/SGOT) 35 U/L (15-37) Alanine Aminotransferase (ALT/SGPT) 28 U/L (16-63) Alkaline Phosphatase 42 U/L (46-116) Total Protein 5.8 g/dL (6.4-8.2) Albumin 1.8 g/dL (3.4-5.0) Lipase 366 U/L (73-393) Review of Systems Review of Systems unable to obtain Assessment and Plan Assessmemt and Plan Problems Medical Problems: (1) Alcoholic pancreatitis Status: Acute (2) ETOH abuse Status: Acute Pancreatitis Alcohol abuse Asthma GERD HTN Severe metabolic encephalopathy Plan ICU CIWA Presidex drip Labs Banana bag Home meds O2 1:1 Prognosis guarded Comment Review of Relevant I have reviewed the following items wali (where applicable) has been applied. Labs Laboratory Tests Test 03/29/18 04:00 03/30/18 04:40 White Blood Count 8.1 x10^3/uL (4.0-11.0) 8.4 x10^3/uL (4.0-11.0) Red Blood Count 3.92 x10^6/uL (4.30-5.70) 3.42 x10^6/uL (4.30-5.70) Hemoglobin 10.1 g/dL (13.0-17.5) 8.9 g/dL (13.0-17.5) Hematocrit 30.0 % (39.0-53.0) 26.8 % (39.0-53.0) Mean Corpuscular Volume 77 fL (79-100) 79 fL (79-100) Mean Corpuscular Hemoglobin 26 pg (25-35) 26 pg (25-35) Mean Corpuscular Hemoglobin Concent 34 g/dL (31-37) 33 g/dL (31-37) Red Cell Distribution Width 16.4 % (11.5-14.5) 17.2 % (11.5-14.5) Platelet Count 99 x10^3/uL (140-400) 116 x10^3/uL (140-400) Neutrophils (%) (Auto) 81 % (31-73) 78 % (31-73) Lymphocytes (%) (Auto) 10 % (24-48) 11 % (24-48) Monocytes (%) (Auto) 9 % (0-9) 9 % (0-9) Eosinophils (%) (Auto) 0 % (0-3) 1 % (0-3) Basophils (%) (Auto) 0 % (0-3) 0 % (0-3) Neutrophils # (Auto) 6.5 x10^3uL (1.8-7.7) 6.5 x10^3uL (1.8-7.7) Lymphocytes # (Auto) 0.8 x10^3/uL (1.0-4.8) 0.9 x10^3/uL (1.0-4.8) Monocytes # (Auto) 0.7 x10^3/uL (0.0-1.1) 0.8 x10^3/uL (0.0-1.1) Eosinophils # (Auto) 0.0 x10^3/uL (0.0-0.7) 0.1 x10^3/uL (0.0-0.7) Basophils # (Auto) 0.0 x10^3/uL (0.0-0.2) 0.0 x10^3/uL (0.0-0.2) Sodium Level 141 mmol/L (136-145) 143 mmol/L (136-145) Potassium Level 3.3 mmol/L (3.5-5.1) 3.9 mmol/L (3.5-5.1) Chloride Level 107 mmol/L (98-107) 111 mmol/L (98-107) Carbon Dioxide Level 25 mmol/L (21-32) 23 mmol/L (21-32) Anion Gap 9 (6-14) 9 (6-14) Blood Urea Nitrogen 11 mg/dL (8-26) 12 mg/dL (8-26) Creatinine 1.1 mg/dL (0.7-1.3) 1.0 mg/dL (0.7-1.3) Estimated GFR (Cockcroft-Gault) 73.8 82.3 Glucose Level 118 mg/dL (70-99) 99 mg/dL (70-99) Calcium Level 7.7 mg/dL (8.5-10.1) 7.8 mg/dL (8.5-10.1) Total Bilirubin 0.6 mg/dL (0.2-1.0) Direct Bilirubin 0.2 mg/dL (0.0-0.2) Aspartate Amino Transf (AST/SGOT) 35 U/L (15-37) Alanine Aminotransferase (ALT/SGPT) 28 U/L (16-63) Alkaline Phosphatase 42 U/L (46-116) Total Protein 5.8 g/dL (6.4-8.2) Albumin 1.8 g/dL (3.4-5.0) Lipase 366 U/L (73-393) Laboratory Tests Test 03/30/18 04:40 White Blood Count 8.4 x10^3/uL (4.0-11.0) Red Blood Count 3.42 x10^6/uL (4.30-5.70) Hemoglobin 8.9 g/dL (13.0-17.5) Hematocrit 26.8 % (39.0-53.0) Mean Corpuscular Volume 79 fL (79-100) Mean Corpuscular Hemoglobin 26 pg (25-35) Mean Corpuscular Hemoglobin Concent 33 g/dL (31-37) Red Cell Distribution Width 17.2 % (11.5-14.5) Platelet Count 116 x10^3/uL (140-400) Neutrophils (%) (Auto) 78 % (31-73) Lymphocytes (%) (Auto) 11 % (24-48) Monocytes (%) (Auto) 9 % (0-9) Eosinophils (%) (Auto) 1 % (0-3) Basophils (%) (Auto) 0 % (0-3) Neutrophils # (Auto) 6.5 x10^3uL (1.8-7.7) Lymphocytes # (Auto) 0.9 x10^3/uL (1.0-4.8) Monocytes # (Auto) 0.8 x10^3/uL (0.0-1.1) Eosinophils # (Auto) 0.1 x10^3/uL (0.0-0.7) Basophils # (Auto) 0.0 x10^3/uL (0.0-0.2) Sodium Level 143 mmol/L (136-145) Potassium Level 3.9 mmol/L (3.5-5.1) Chloride Level 111 mmol/L (98-107) Carbon Dioxide Level 23 mmol/L (21-32) Anion Gap 9 (6-14) Blood Urea Nitrogen 12 mg/dL (8-26) Creatinine 1.0 mg/dL (0.7-1.3) Estimated GFR (Cockcroft-Gault) 82.3 Glucose Level 99 mg/dL (70-99) Calcium Level 7.8 mg/dL (8.5-10.1) Total Bilirubin 0.6 mg/dL (0.2-1.0) Direct Bilirubin 0.2 mg/dL (0.0-0.2) Aspartate Amino Transf (AST/SGOT) 35 U/L (15-37) Alanine Aminotransferase (ALT/SGPT) 28 U/L (16-63) Alkaline Phosphatase 42 U/L (46-116) Total Protein 5.8 g/dL (6.4-8.2) Albumin 1.8 g/dL (3.4-5.0) Lipase 366 U/L (73-393) Microbiology 03/27/18 Blood Culture - Preliminary, Resulted NO GROWTH AFTER 3 DAYS Medications Current Medications Multivitamins 10 ml/Thiamine HCl 100 mg/Folic Acid 1 mg/Sodium Chloride 1,011.2 ml @ 1,000.088 mls/hr 1X ONCE IV Last administered on 03/26/18at 15:07; Start 03/26/18 at 14:00; Stop 03/26/18 at 15:00; Status DC Ondansetron HCl (Zofran) 4 mg 1X ONCE IV Last administered on 03/26/18at 14:13 ; Start 03/26/18 at 14:00; Stop 03/26/18 at 14:10; Status DC Pantoprazole Sodium (PROTONIX VIAL for IV PUSH) 40 mg 1X ONCE IVP Last administered on 03/26/18at 14:13; Start 03/26/18 at 14:00; Stop 03/26/18 at 14:10 ; Status DC Pantoprazole Sodium (PROTONIX VIAL for IV PUSH) 40 mg STK-MED ONCE IVP ; Start 03/26/18 at 14:10; Stop 03/26/18 at 14:11; Status DC Ondansetron HCl (Zofran) 4 mg STK-MED ONCE .ROUTE ; Start 03/26/18 at 14:10; Stop 03/26/18 at 14:11; Status DC Iohexol (Omnipaque 300 Mg/ml) 75 ml 1X ONCE IV Last administered on 03/26/18at 14:38; Start 03/26/18 at 14:45; Stop 03/26/18 at 14:46; Status DC Iohexol (Omnipaque 300 Mg/ml) 100 ml STK-MED ONCE .ROUTE ; Start 03/26/18 at 14: 38; Stop 03/26/18 at 14:39; Status DC Info (CONTRAST GIVEN -- Rx MONITORING) 1 each PRN DAILY PRN MC SEE COMMENTS; Start 03/26/18 at 14:45; Stop 03/28/18 at 14:44; Status DC Ondansetron HCl (Zofran) 4 mg 1X ONCE IV Last administered on 03/26/18at 15:08 ; Start 03/26/18 at 15:00; Stop 03/26/18 at 15:01; Status DC Morphine Sulfate (Morphine Sulfate) 5 mg 1X ONCE IV Last administered on at 15:09; Start 03/26/18 at 15:00; Stop 03/26/18 at 15:01; Status DC Ondansetron HCl (Zofran) 4 mg PRN Q8HRS PRN IV NAUSEA/VOMITING Last administered on 03/27/18at 12:22; Start 03/26/18 at 15:15; Stop 03/27/18 at 15:14 ; Status DC Morphine Sulfate (Morphine Sulfate) 4 mg PRN Q2HR PRN IV PAIN Last administered on 03/27/18at 15:12; Start 03/26/18 at 15:15; Stop 03/27/18 at 15:14 ; Status DC Multivitamins 10 ml/Thiamine HCl 100 mg/Folic Acid 1 mg/Sodium Chloride 1,011.2 ml @ 100 mls/ hr DAILY IV Last administered on 03/30/18at 07:52; Start at 16:00; Stop 03/30/18 at 19:07 Lorazepam (Ativan) 2 mg PRN Q1HR PRN IV For CIWA 8-14 Last administered on 03/26at 15:59; Start 03/26/18 at 15:15; Stop 03/26/18 at 16:43; Status DC Sodium Chloride 1,000 ml @ 125 mls/hr 1X ONCE IV Last administered on at 02:10; Start 03/26/18 at 15:15; Stop 03/26/18 at 23:14; Status DC Pantoprazole Sodium (PROTONIX VIAL for IV PUSH) 40 mg DAILYAC IVP Last administered on 03/30/18at 07:52; Start 03/27/18 at 07:30; Stop 03/30/18 at 10:52 ; Status DC Multivitamins 10 ml/Thiamine HCl 100 mg/Folic Acid 1 mg/Sodium Chloride 1,011.2 ml @ 100 mls/ hr DAILY IV ; Start 03/27/18 at 09:00; Stop 03/31/18 at 19:07; Status UNV Multivitamins (Thera M Plus) 1 tab DAILY PO ; Start 03/31/18 at 09:00 Folic Acid (Folic Acid) 1 mg DAILY PO ; Start 03/31/18 at 09:00 Thiamine HCl 100 mg/Dextrose 51 ml @ 100 mls/hr DAILY IV ; Start 03/27/18 at 09 :00; Stop 03/31/18 at 09:31; Status UNV Lorazepam (Ativan) 2 mg Q6H PO Last administered on 03/26/18at 22:19; Start at 17:00; Stop 03/27/18 at 01:47; Status DC Lorazepam (Ativan) 4 mg PRN Q1HR PRN PO For CIWA 8-14; Start 03/26/18 at 16:45 Lorazepam (Ativan) 2 mg PRN Q1HR PRN IV For CIWA 8-14 Last administered on 03/30at 10:19; Start 03/26/18 at 16:45 Lorazepam (Ativan) 4 mg PRN Q1HR PRN IV For CIWA 15 or greater Last administered on 03/29/18 08:27; Start 03/26/18 at 16:45 Haloperidol Lactate (Haldol Inj) 5 mg PRN Q4HRS PRN IVP Hallucinatns,Confusn, Delirium Last administered on 03/30/18at 08:44; Start 03/26/18 at 16:45 Diphenhydramine HCl (Benadryl) 25 mg PRN Q15MIN PRN IVP EPS symptoms 2'Haldol admin Last administered on 03/29/18at 08:25; Start 03/26/18 at 16:45 Clonidine HCl (Catapres) 0.1 mg PRN Q1HR PRN PO SBP > 180 or DBP > 100, MRX3 Last administered on 03/27/18at 05:28; Start 03/26/18 at 16:45 Lorazepam (Ativan) 2 mg PRN Q15MIN PRN IV ; Start 03/26/18 at 16:45; Status UNV Lorazepam (Ativan) 4 mg PRN Q15MIN PRN IV ; Start 03/26/18 at 16:45; Status UNV Pantoprazole Sodium (PROTONIX VIAL for IV PUSH) 40 mg DAILYAC IVP ; Start at 07:30; Status UNV Enoxaparin Sodium (Lovenox 40mg Syringe) 40 mg Q24H SQ Last administered on at 21:20; Start 03/26/18 at 21:00 Albuterol Sulfate (Ventolin Neb Soln) 2.5 mg PRN Q2HRS PRN NEB SHORTNESS OF BREATH Last administered on 03/29/18at 04:12; Start 03/26/18 at 17:00; Stop 03/30 at 13:29; Status DC Non-Formulary Medication (Albuterol Sulfate (Proair Hfa Inhaler)) 1 puff PRN Q4HRS PRN INH SHORTNESS OF BREATH; Start 03/26/18 at 16:45; Status UNV Non-Formulary Medication (Budesonide/ Formoterol Fumarate (Symbicort 160-4.5 Mcg Inhaler)) 2 puff BID IH ; Start 03/26/18 at 21:00; Status UNV Theophylline (Theodur) 300 mg BID PO Last administered on 03/30/18at 08:45; Start 03/26/18 at 21:00 Budesonide (Pulmicort) 0.5 mg RTBID NEB Last administered on 03/30/18at 08:25; Start 03/26/18 at 20:00 Albuterol Sulfate (Ventolin Neb Soln) 2.5 mg RTQID NEB Last administered on at 12:28; Start 03/26/18 at 20:00; Stop 03/30/18 at 13:24; Status DC Sodium Chloride 1,000 ml @ 1,000 mls/hr 1X ONCE IV Last administered on at 12:23; Start 03/27/18 at 12:15; Stop 03/27/18 at 13:14; Status DC Sodium Chloride 1,000 ml @ 1,000 mls/hr 1X ONCE IV Last administered on at 13:05; Start 03/27/18 at 12:15; Stop 03/27/18 at 13:14; Status DC Sodium Chloride 1,000 ml @ 1,000 mls/hr 1X ONCE IV Last administered on at 14:11; Start 03/27/18 at 12:15; Stop 03/27/18 at 13:14; Status DC Sodium Chloride 136 ml @ 500 mls/hr 1X ONCE IV Last administered on at 12:15; Start 03/27/18 at 12:15; Stop 03/27/18 at 12:31; Status DC Piperacillin Sod/ Tazobactam Sod 3.375 gm/Sodium Chloride 50 ml @ 100 mls/hr Q6HRS IV Last administered on 03/30/18at 12:42; Start 03/27/18 at 16:00 Morphine Sulfate (Morphine Sulfate) 2 mg PRN Q2HR PRN IV PAIN Last administered on 03/30/18at 08:48; Start 03/27/18 at 16:45 Ondansetron HCl (Zofran) 4 mg PRN Q6HRS PRN IV NAUSEA/VOMITING Last administered on 03/28/18at 02:34; Start 03/27/18 at 16:45 Sodium Chloride 1,000 ml @ 125 mls/hr Q8H IV Last administered on 03/29/18at 10 :14; Start 03/27/18 at 17:45; Stop 03/29/18 at 14:21; Status DC Diazepam (Valium) 5 mg PRN Q2HR PRN PO Agitation/Alcohol withdraw Last administered on 03/29/18at 02:47; Start 03/29/18 at 01:45 Belladonna Alkaloids/Opium (B & O) 1 supp PRN Q12HR PRN HI BLADDER SPASM Last administered on 03/29/18at 02:58; Start 03/29/18 at 01:45 Dexmedetomidine HCl 200 mcg/ Sodium Chloride 50 ml @ 0 mls/hr CONT PRN IV PER PROTOCOL Last administered on 03/30/18at 14:07; Start 03/29/18 at 08:30 Sodium Chloride 500 ml @ 500 mls/hr 1X PRN PRN IV SEE COMMENTS; Start at 08:30 Atropine Sulfate (ATROPINE 0.5mg SYRINGE) 0.5 mg PRN Q5MIN PRN IV SEE COMMENTS ; Start 03/29/18 at 08:30 Potassium Chloride (Klor-Con) 40 meq 1X ONCE PO Last administered on at 14:25; Start 03/29/18 at 13:15; Stop 03/29/18 at 13:16; Status DC Potassium Chloride/Sodium Chloride 1,000 ml @ 125 mls/hr Q8H IV Last administered on 03/30/18at 06:35; Start 03/29/18 at 14:15 Pantoprazole Sodium (Protonix) 40 mg DAILYAC PO ; Start 03/31/18 at 07:30 Albuterol Sulfate (Ventolin Neb Soln) 2.5 mg PRN Q4HRS PRN NEB WHEEZING; Start 03/30/18 at 13:30 Micafungin Sodium 100 mg/Dextrose 100 ml @ 100 mls/hr Q24H IV ; Start 03/30/18 at 15:00 Linezolid/Dextrose 300 ml @ 300 mls/hr Q12HR IV Last administered on at 14:09; Start 03/30/18 at 14:00 Olanzapine (ZyPREXA IM) 10 mg PRN Q8HRS PRN IM ANXIETY / AGITATION; Start 03/30 at 14:00 Active Scripts Active Diazepam 5 Mg Tablet 5 Mg PO DAILY Reported Proair Hfa Inhaler (Albuterol Sulfate) 8.5 Gm Hfa.aer.ad 1 Puff INH PRN Q4HRS PRN Duoneb 0.5-3(2.5) Mg/3 Ml (Albuterol/Ipratropium) 3 Ml Ampul.neb 3 Ml NEB Q2HR PRN Symbicort 160-4.5 Mcg Inhaler (Budesonide/Formoterol Fumarate) 10.2 Gm Hfa.aer.ad 2 Puff IH BID Prilosec Otc (Omeprazole Magnesium) 20 Mg Tablet.dr 1 Tab PO DAILY Theophylline (Theophylline Anhydrous) 400 Mg Tablet.er 300 Mg PO BID Vitals/I & O Vital Sign - Last 24 Hours 03/29/18 03/29/18 03/29/18 03/29/18 15:02 15:25 16:00 16:49 Temp 100.2 100.2 Pulse 94 91 Resp B/P (MAP) 107/69 (82) 102/69 (80) Pulse Ox 97 98 93 93 O2 Delivery Nasal Cannula Nasal Cannula Nasal Cannula Room Air O2 Flow Rate 4.0 2.0 4.0 4.0 03/29/18 03/29/18 03/29/18 03/29/18 17:00 18:00 18:51 18:59 Temp 101.0 101.0 Pulse 94 90 B/P (MAP) 111/64 (80) 82/59 (67) Pulse Ox 93 92 95 O2 Delivery Nasal Cannula Nasal Cannula Room Air O2 Flow Rate 4.0 4.0 4.0 03/29/18 03/29/18 03/29/18 03/29/18 19:00 19:30 19:49 19:49 Temp 98.1 98.1 Pulse 90 25 B/P (MAP) 82/65 (71) Pulse Ox 98 98 98 O2 Delivery Nasal Cannula Nasal Cannula Nasal Cannula Nasal Cannula O2 Flow Rate 4.0 4.0 4.0 4.0 03/29/18 03/29/18 03/29/18 03/29/18 20:00 21:13 21:20 22:00 Pulse 90 89 Resp B/P (MAP) 93/62 (72) 106/53 (70) Pulse Ox 99 91 O2 Delivery Nasal Cannula Nasal Cannula Nasal Cannula O2 Flow Rate 4.0 4.0 4.0 4.0 18 18 03/30/18 03/30/18 22:39 23:00 00:05 00:05 Temp 98.3 98.3 Pulse 90 90 88 Resp B/P (MAP) 102/64 (77) 118/62 (80) 110/65 (80) Pulse Ox 91 92 91 O2 Delivery Nasal Cannula Nasal Cannula Nasal Cannula Nasal Cannula O2 Flow Rate 4.0 4.0 4.0 4.0 03/30/1818 03/30/18 03/30/18 00:29 01:10 02:02 03:08 Pulse 87 85 Resp B/P (MAP) 119/57 (77) 124/70 (88) Pulse Ox 95 94 94 96 O2 Delivery BiPAP/CPAP Nasal Cannula Nasal Cannula Nasal Cannula O2 Flow Rate 4.0 4.0 4.0 03/30/18 03/30/18 03/30/18 03/30/18 04:00 04:01 05:00 05:14 Temp 101.0 101.0 Pulse 85 85 B/P (MAP) 129/68 (88) 133/70 (91) Pulse Ox 96 95 O2 Delivery Nasal Cannula Nasal Cannula Nasal Cannula Nasal Cannula O2 Flow Rate 4.0 4.0 4.0 18 03/30/18 03/30/18 03/30/18 06:07 07:00 08:00 08:00 Temp 100.2 100.2 Pulse 85 84 85 B/P (MAP) 129/81 (97) 136/77 (96) 140/80 (100) Pulse Ox 95 98 96 O2 Delivery Nasal Cannula Nasal Cannula Nasal Cannula Nasal Cannula O2 Flow Rate 4.0 4.0 4.0 4.0 03/30/18 03/30/18 03/30/18 03/30/18 08:25 08:48 09:00 09:24 Pulse 82 Resp B/P (MAP) 150/92 (111) Pulse Ox 99 97 40 O2 Delivery BiPAP/CPAP Nasal Cannula BiPAP/CPAP BiPAP/CPAP O2 Flow Rate 4.0 03/30/18 03/30/18 03/30/18 03/30/18 09:45 10:00 11:00 12:00 Pulse 84 88 Resp 27 27 B/P (MAP) 163/87 (112) 168/93 (118) Pulse Ox 100 97 99 O2 Delivery BiPAP/CPAP BiPAP/CPAP BiPAP/CPAP Nasal Cannula O2 Flow Rate 5.0 03/30/18 03/30/18 03/30/18 03/30/18 12:00 12:28 13:00 14:00 Temp 101.4 101.4 Pulse 85 96 85 Resp 28 29 31 B/P (MAP) 153/91 (111) 160/96 (117) 164/94 (117) Pulse Ox 98 98 96 96 O2 Delivery Nasal Cannula Nasal Cannula Nasal Cannula Nasal Cannula O2 Flow Rate 5.0 5.0 3.0 3.0 Intake and Output 03/29/18 03/29/18 03/30/18 15:00 23:00 07:00 Intake Total 170 ml 3415 ml 1164 ml Output Total 650 ml 350 ml 530 ml Balance -480 ml 3065 ml 634 ml MAY FROST III DO Mar 30, 2018 14:43
[2018-03-30] MEDS: MICAFUNGIN 100 MG in IV DEXTROSE 5% 100ML 100 ML IV SCH (15:26)
[2018-03-30] MEDS: ACETAMINOPHEN 650 MG SUPP.RECT. PR PRN (17:25)
[2018-03-30] MEDS: ENOXAPARIN 40 MG/0.4 ML SYRINGE. SQ SCH (20:32)
[2018-03-31] VITALS (24 sets, daily range): BP systolic 120–182; BP diastolic 59–106
[2018-03-31] MEDS: DEXMEDETOMIDINE 200 MCG in IV NORMAL SALINE 50ML 48 ML IV PRN ×10 (00:02→13:09)
[2018-03-31] MEDS: ACETAMINOPHEN 650 MG SUPP.RECT. PR PRN ×2 (00:49→15:02)
[2018-03-31 04:34] LABS: BASO # 0.1 x10^3/uL (0.0-0.2); BASO % 1 % (0-3); EOS # 0.3 x10^3/uL (0.0-0.7); EOS % 2 % (0-3); HEMATOCRIT 28.7 % (39.0-53.0); HEMOGLOBIN 9.7 g/dL (13.0-17.5); LYMPH # 1.9 x10^3/uL (1.0-4.8); LYMPH % 10 % (24-48); MEAN CORPUSCULAR HEMOGLOBIN 26 pg (25-35); MEAN CORPUSCULAR HGB CONC 34 g/dL (31-37); MEAN CORPUSCULAR VOLUME 78 fL (79-100); MONO # 2.2 x10^3/uL (0.0-1.1); MONO % 12 % (0-9); NEUT # 13.7 x10^3uL (1.8-7.7); NEUT % 76 % (31-73); PLATELET COUNT 151 x10^3/uL (140-400); RED BLOOD COUNT 3.66 x10^6/uL (4.30-5.70); RED CELL DISTRIBUTION WIDTH 17.2 % (11.5-14.5)
[2018-03-31 05:13] LABS: CALCIUM 8.1 mg/dL (8.5-10.1); GFR 82.3; POTASSIUM 4.1 mmol/L (3.5-5.1)
[2018-03-31] MEDS: LABETALOL 20 MG/4 ML DISP.SYRIN. IVP PRN ×2 (05:14→10:02)
[2018-03-31] MEDS: HALOPERIDOL LACTATE 5 MG/ML VIAL. IVP PRN (05:20)
[2018-03-31] MEDS: PIPERACILLIN/TAZOBACTAM 3.375 GM in IV NORMAL SALINE 50ML 50 ML IV SCH ×2 (05:32→12:16)
[2018-03-31] MEDS ORDERED: PANTOPRAZOLE 40 MG TABLET.DR. PO SCH (07:30)
[2018-03-31] MEDS: BUDESONIDE 0.5 MG/2 ML NEBU. NEB SCH ×2 (08:00→19:28)
[2018-03-31 08:43] LABS: BASE EXCESS ABG -1 mmol/L (-3-3); HCO3 ABG 23 mmol/L (21-28); PCO2 ABG 38 mmHg (35-46); PO2 ABG 63 mmHg (75-108); SAT O2 ABG 92 % (92-99)
[2018-03-31 08:46] LABS: FIO2 ABG 32
[2018-03-31] MEDS: THEOPHYLLINE 12HR ER 300 MG TAB.ER.12H. PO SCH ×2 (09:00→21:00)
[2018-03-31] MEDS ORDERED: MULTIVITAMIN with MINERAL TABLET. PO SCH (09:00)
[2018-03-31] MEDS ORDERED: FOLIC ACID 1 MG TABLET. PO SCH (09:00)
[2018-03-31] MEDS ORDERED: CONTRAST GIVEN. MC PRN (09:15)
[2018-03-31] MEDS ORDERED: IOHEXOL 300 MG/ML 100ML VIAL. IV ONE ×2 (09:15→10:00)
--- NOTE | 2018-03-31 10:03 | RAD ---
EXAM: Chest, single view. HISTORY: Central line placement. COMPARISON: 08/13/2016 FINDINGS: A frontal view of the chest is obtained. There is a right internal jugular catheter with the tip in the superior cavoatrial junction. There is diffuse interstitial infiltrate. There is a suspected small left pleural effusion. There is a stable prominent cardiac silhouette. There is no pneumothorax. IMPRESSION: 1. Right internal jugular catheter with the tip in the superior cavoatrial junction. 2. Diffuse interstitial infiltrate and possible small left pleural effusion. Electronically signed by: Eliana Wright MD (03/31/2018 9:59 AM) [place] [id number]
[2018-03-31] MEDS: MORPHINE SULFATE 2 MG/ML VIAL. IV PRN (10:42)
--- NOTE | 2018-03-31 10:59 | RAD ---
EXAM: Abdomen and pelvis CT with intravenous contrast. HISTORY: Fever. Distention. TECHNIQUE: Computed tomographic images of the abdomen and pelvis were obtained following the administration of 75 cc Omnipaque 300 intravenous contrast. Multiplanar reformatting was performed. *One or more of the following individualized dose reduction techniques were utilized for this examination: 1. Automated exposure control. 2. Adjustment of the mA and/or kV according to patient size. 3. Use of iterative reconstruction technique. COMPARISON: 03/26/2018. FINDINGS: Evaluation of the lower thorax demonstrates small left greater than right pleural effusions, new compared to the prior study. There is left greater than right lower lobe compressive atelectasis/partial collapse. There is mild cardiomegaly. There are stable hypodense lesions within the liver, the largest of which measures 3.6 cm within the left hepatic lobe. There is mild perihepatic ascites. There is suspected vicarious excretion of contrast within the gallbladder. There is pericholecystic fluid. There is distal esophageal mucosal thickening and a small hiatal hernia. There has been extensive progression of pancreatic stranding and fluid due to acute pancreatitis. There is associated pancreatic enlargement. No pseudocyst is seen. There is fluid tracking inferior to the pancreatic tail left lower quadrant which appears slightly complex. The spleen is normal in size. The glands and kidneys are unremarkable. There is no evidence of bowel obstruction or abnormal bowel wall thickening. The bladder is unremarkable. There are prominent peripancreatic and periportal lymph nodes which are likely reactive. There is no suspicious osseous lesion. IMPRESSION: 1. Acute pancreatitis. There has been significant progression of peripancreatic stranding and free fluid and there is interval pancreatic enlargement. No focal pancreatic lesion or pseudocyst is seen. 2. Suspected complex free fluid tracking along the anterior inferior pancreatic tail into the left lower quadrant. There is a small amount of additional free fluid throughout the abdomen and pelvis. 3. New small left greater than right pleural effusions with left greater than right lower lobe compressive atelectasis/partial collapse. 4. Stable hypodense lesions within the liver. These are better characterized on the prior exam due to suboptimal contrast on the current study. Nonemergent assessment with a liver protocol CT or MRI is recommended. 5. Mild hepatomegaly and hepatic steatosis. 6. Small hiatal hernia and distal esophageal mucosal thickening. Correlate for esophagitis. Electronically signed by: Eliana Wright MD (03/31/2018 10:56 AM) [id number]
[2018-03-31] MEDS ORDERED: VECURONIUM BOLUS 10 MG VIAL. IV ONE ×4 (11:05→12:00)
[2018-03-31] MEDS ORDERED: PROPOFOL 100 ML IV ONE (11:08)
--- NOTE | 2018-03-31 11:18 | CONS ---
DATE OF CONSULTATION: ATTENDING PHYSICIAN: Dr. Ortiz. REASON FOR CONSULTATION: Sepsis, tachypnea. HISTORY OF PRESENT ILLNESS: The patient is a 43-year-old male who has history of alcoholism, history of asthma and history of pancreatitis. He presented to the hospital with abdominal pain and nausea. He was noted to have a white cell count of 28,000 and a lactic acid of 4.1 on admission. His lipase level was markedly elevated. He was diagnosed with acute alcoholic pancreatitis. The patient has been in the ICU and has been followed by GI and Infectious Disease for recurrent alcoholic pancreatitis along with alcohol withdrawal and agitation. I have been asked to see him for critical care consult as the patient was noted to be tachypneic today. He has a new fever of 101.6. He just went for CT abdomen and pelvis and I have been asked to see him for further evaluation. He does not answer much questions, but he mumbles few words. He is currently being on Precedex drip along with p.r.n. morphine and p.r.n. benzodiazepines. The patient is also on Lovenox for DVT prophylaxis. In addition, he is on p.r.n. Haldol. PAST MEDICAL HISTORY: History of alcoholic pancreatitis, history of asthma, history of GERD, hypertension and alcoholism. PAST SURGICAL HISTORY: Tonsillectomy, adenoidectomy and left eye surgery. SOCIAL HISTORY: Heavy alcohol use, cocaine and marijuana use. FAMILY HISTORY: Hypertension. ALLERGIES: None. MEDICATIONS: All reviewed, as listed in the MRAD. PHYSICAL EXAMINATION: GENERAL: His is lethargic. VITAL SIGNS: His T-max is 101.6. His blood pressure is on the high side with 181 systolic. Pulse ox is 96% on nasal cannula at 4 liters. HEENT: Sclerae are nonicteric. NECK: Supple. LUNGS: With few rhonchi. CARDIOVASCULAR: Regular rate and tachycardia. ABDOMEN: Soft and tender. EXTREMITIES: With trace pitting edema. LABORATORY DATA: Reviewed. White cell count 18.2, hemoglobin 9.7 and platelets are 151. His chemistry is with an albumin of 1.8. His lipase is down to 248. His ABG is with a pH of 7.41, pCO2 of 38 and a pO2 of 63. IMPRESSION: 1. Acute recurrent alcoholic pancreatitis. 2. New sepsis with a new fever and elevated white cell count. Need to rule out any pancreatic abscess or necrotic pancreatitis. 3. Alcoholism with withdrawal. 4. Acute encephalopathy/delirium. 5. History of asthma. 6. Abnormal chest x-ray with mild interstitial infiltrates, suspect acute lung injury. 7. Acute hypoxic respiratory failure related to acute pancreatitis with/suspected acute lung injury. RECOMMENDATIONS: 1. Continue with present nasal cannula. 2. Monitor ABGs and chest x-rays closely. 3. Continue Precedex along with p.r.n. Ativan and p.r.n. Haldol, add fentanyl. 4. Watch for withdrawal of care. 5. He is at risk for respiratory failure secondary to acute lung injury from acute pancreatitis and we will closely monitor for the need for intubation. 6. Follow ID recommendation. 7. Follow GI recommendations. 8. DVT and stress ulcer prophylaxis. Critical care time 39 minutes. KARLA LOVING MD DR: RENETTA/gretel JOB#: [id number] / [id number]
[2018-03-31 11:21] LABS: WHITE BLOOD COUNT 18.2 x10^3/uL (4.0-11.0)
[2018-03-31] MEDS ORDERED: SUCCINYLCHOLINE 200 MG/10 ML VIAL. IV ONE (11:30)
--- NOTE | 2018-03-31 11:31 | PDOC ---
Subjective: Subjective: Agitation still an issue requiring multiple meds. Objective: Vital Signs: Vital Signs Date Time Temp Pulse Resp B/P (MAP) Pulse Ox O2 Delivery O2 Flow Rate FiO2 03/31/18 10:42 28 98 Nasal Cannula 3.0 03/31/18 10:02 83 185/96 03/31/18 06:00 99.6 99.6 Labs: Laboratory Tests Test 03/31/18 04:00 03/31/18 08:21 03/31/18 09:25 White Blood Count 18.2 x10^3/uL Red Blood Count 3.66 x10^6/uL Hemoglobin 9.7 g/dL Hematocrit 28.7 % Mean Corpuscular Volume 78 fL Mean Corpuscular Hemoglobin 26 pg Mean Corpuscular Hemoglobin Concent 34 g/dL Red Cell Distribution Width 17.2 % Platelet Count 151 x10^3/uL Neutrophils (%) (Auto) 76 % Lymphocytes (%) (Auto) 10 % Monocytes (%) (Auto) 12 % Eosinophils (%) (Auto) 2 % Basophils (%) (Auto) 1 % Neutrophils # (Auto) 13.7 x10^3uL Lymphocytes # (Auto) 1.9 x10^3/uL Monocytes # (Auto) 2.2 x10^3/uL Eosinophils # (Auto) 0.3 x10^3/uL Basophils # (Auto) 0.1 x10^3/uL Sodium Level 142 mmol/L Potassium Level 4.1 mmol/L Chloride Level 108 mmol/L Carbon Dioxide Level 25 mmol/L Anion Gap 9 Blood Urea Nitrogen 8 mg/dL Creatinine 1.0 mg/dL Estimated GFR (Cockcroft-Gault) 82.3 Glucose Level 110 mg/dL Calcium Level 8.1 mg/dL Lipase 248 U/L O2 Saturation 92 % Arterial Blood pH 7.41 Arterial Blood pCO2 at Patient Temp 38 mmHg Arterial Blood pO2 at Patient Temp 63 mmHg Arterial Blood HCO3 23 mmol/L Arterial Blood Base Excess -1 mmol/L FiO2 32 Lactic Acid Level 0.7 mmol/L Imaging: CXR IMPRESSION: 1. Right internal jugular catheter with the tip in the superior cavoatrial junction. 2. Diffuse interstitial infiltrate and possible small left pleural effusion. CT A/P IMPRESSION: 1. Acute pancreatitis. There has been significant progression of peripancreatic stranding and free fluid and there is interval pancreatic enlargement. No focal pancreatic lesion or pseudocyst is seen. 2. Suspected complex free fluid tracking along the anterior inferior pancreatic tail into the left lower quadrant. There is a small amount of additional free fluid throughout the abdomen and pelvis. 3. New small left greater than right pleural effusions with left greater than right lower lobe compressive atelectasis/partial collapse. 4. Stable hypodense lesions within the liver. These are better characterized on the prior exam due to suboptimal contrast on the current study. Nonemergent assessment with a liver protocol CT or MRI is recommended. 5. Mild hepatomegaly and hepatic steatosis. 6. Small hiatal hernia and distal esophageal mucosal thickening. Correlate for esophagitis. PE: GEN: restless LUNGS: tachypneic HEART: tachycardic ABD: some distention, quiet, difficult to assess tenderness NEURO/PSYCH: aggravated A/P: Alcohol withdrawal Pancreatitis, leukocytosis, fever -- Code choudhury called after I saw. Will review interval CT w/ Dr. Rogers - notes progression of peripancreatic standing and pancreatic enlargement, also suspected complex free fluid along anterior inferior pancreatic tail to LLQ. Is back to NPO, will change PPI to IV. May need to consider TPN, etc. - difficult with withdrawal and agitation. MESSI GORE Mar 31, 2018 11:31
--- NOTE | 2018-03-31 11:53 | RAD ---
PORTABLE CHEST 1V History: Endotracheal tube placement Comparison: Exam earlier the same day Findings: Single view of the chest is submitted. Previously seen right internal jugular venous catheter is no longer visualized. There is now enteric catheter coursing into the region of stomach, not fully included. There is now endotracheal tube with tip about 3 cm from osvaldo. Pericardial cardiac silhouette is again enlarged. There is again left base opacity, possible small left pleural effusion. There is airspace opacity of the left perihilar region and right lung base, somewhat greater such as at the right lung base. No obvious pneumothorax is identified, limited evaluation in supine patient. Impression: 1. There is now endotracheal tube and enteric catheter. Previously seen right internal jugular venous catheter is no longer visualized. 2. There is again suspected small left pleural effusion. There is airspace opacity bilaterally somewhat increased at the right lung base in interval, could be due to edema although underlying infiltrates not excluded. 3. There is again enlargement of the pericardial cardiac silhouette. Electronically signed by: Cl Holliday MD (03/31/2018 11:50 AM) [id number]
[2018-03-31] MEDS: PROPOFOL 100 ML IV PRN ×4 (12:00→22:54)
--- NOTE | 2018-03-31 12:32 | PDOC ---
PROGRESS NOTES Chief Complaint Chief Complaint acute Pancreatitis Alcohol abuse and withdrawal AMS metabolic encephalopathy with alcohol withdrawal acute hypoxic resp failure severe agitation required intubated 03/31 h/o Asthma GERD HTN possible sepsis wo clear etiology morbid obesity leucocytosis hepatic lesions on CT plan: pulm, gi, ID consult on 3 iv abx with ID repeat bcx, cxr, repeat abd CT showed worsening pancreatitis, lipase normal tho defer to GI to see if need another LIVER CT for the lesions sedated, intubated 03/31 change TPN with central line, NPO given pancreatitis dvt, gi ppx CC time 35min History of Present Illness History of Present Illness Pt seen and examined in ICU Dw RN Pt on 1:1 Pt with NAD. on IV Presidex and Ativan pt got very agitated later this am, required intubation high fever since Friday high WBC to 18 today c/o abd pain, with distention Vitals Vitals Vital Signs Date Time Temp Pulse Resp B/P (MAP) Pulse Ox O2 Delivery O2 Flow Rate FiO2 03/31/18 12:18 100 Ventilator 03/31/18 10:42 28 3.0 03/31/18 10:02 83 185/96 03/31/18 06:00 99.6 99.6 Physical Exam Physical Exam GENERAL: mild agitation when i saw him today with precidex and ativan Heent fixed pupils LUNGS: Breathing nonlabored CV: Regular ABD: Obese, moderate distended with mild tenderness : Kramer out EXT: No gross edema or cyanosis PIV General: No acute distress Heart: Regular rate Lungs: Clear, Other Abdomen: Soft, No masses Extremities: No cyanosis, No edema Skin: No rashes, No breakdown Labs LABS Laboratory Tests Test 03/31/18 04:00 03/31/18 08:21 03/31/18 09:25 White Blood Count 18.2 x10^3/uL (4.0-11.0) Red Blood Count 3.66 x10^6/uL (4.30-5.70) Hemoglobin 9.7 g/dL (13.0-17.5) Hematocrit 28.7 % (39.0-53.0) Mean Corpuscular Volume 78 fL (79-100) Mean Corpuscular Hemoglobin 26 pg (25-35) Mean Corpuscular Hemoglobin Concent 34 g/dL (31-37) Red Cell Distribution Width 17.2 % (11.5-14.5) Platelet Count 151 x10^3/uL (140-400) Neutrophils (%) (Auto) 76 % (31-73) Lymphocytes (%) (Auto) 10 % (24-48) Monocytes (%) (Auto) 12 % (0-9) Eosinophils (%) (Auto) 2 % (0-3) Basophils (%) (Auto) 1 % (0-3) Neutrophils # (Auto) 13.7 x10^3uL (1.8-7.7) Lymphocytes # (Auto) 1.9 x10^3/uL (1.0-4.8) Monocytes # (Auto) 2.2 x10^3/uL (0.0-1.1) Eosinophils # (Auto) 0.3 x10^3/uL (0.0-0.7) Basophils # (Auto) 0.1 x10^3/uL (0.0-0.2) Sodium Level 142 mmol/L (136-145) Potassium Level 4.1 mmol/L (3.5-5.1) Chloride Level 108 mmol/L (98-107) Carbon Dioxide Level 25 mmol/L (21-32) Anion Gap 9 (6-14) Blood Urea Nitrogen 8 mg/dL (8-26) Creatinine 1.0 mg/dL (0.7-1.3) Estimated GFR (Cockcroft-Gault) 82.3 Glucose Level 110 mg/dL (70-99) Calcium Level 8.1 mg/dL (8.5-10.1) Lipase 248 U/L (73-393) O2 Saturation 92 % (92-99) Arterial Blood pH 7.41 (7.35-7.45) Arterial Blood pCO2 at Patient Temp 38 mmHg (35-46) Arterial Blood pO2 at Patient Temp 63 mmHg (75-108) Arterial Blood HCO3 23 mmol/L (21-28) Arterial Blood Base Excess -1 mmol/L (-3-3) FiO2 32 Lactic Acid Level 0.7 mmol/L (0.4-2.0) Assessment and Plan Assessmemt and Plan Problems Medical Problems: (1) Alcoholic pancreatitis Status: Acute (2) ETOH abuse Status: Acute Comment Review of Relevant I have reviewed the following items wali (where applicable) has been applied. Labs Laboratory Tests Test 03/30/18 04:40 03/31/18 04:00 03/31/18 08:21 03/31/18 09:25 White Blood Count 8.4 x10^3/uL (4.0-11.0) 18.2 x10^3/uL (4.0-11.0) Red Blood Count 3.42 x10^6/uL (4.30-5.70) 3.66 x10^6/uL (4.30-5.70) Hemoglobin 8.9 g/dL (13.0-17.5) 9.7 g/dL (13.0-17.5) Hematocrit 26.8 % (39.0-53.0) 28.7 % (39.0-53.0) Mean Corpuscular Volume 79 fL (79-100) 78 fL (79-100) Mean Corpuscular Hemoglobin 26 pg (25-35) 26 pg (25-35) Mean Corpuscular Hemoglobin Concent 33 g/dL (31-37) 34 g/dL (31-37) Red Cell Distribution Width 17.2 % (11.5-14.5) 17.2 % (11.5-14.5) Platelet Count 116 x10^3/uL (140-400) 151 x10^3/uL (140-400) Neutrophils (%) (Auto) 78 % (31-73) 76 % (31-73) Lymphocytes (%) (Auto) 11 % (24-48) 10 % (24-48) Monocytes (%) (Auto) 9 % (0-9) 12 % (0-9) Eosinophils (%) (Auto) 1 % (0-3) 2 % (0-3) Basophils (%) (Auto) 0 % (0-3) 1 % (0-3) Neutrophils # (Auto) 6.5 x10^3uL (1.8-7.7) 13.7 x10^3uL (1.8-7.7) Lymphocytes # (Auto) 0.9 x10^3/uL (1.0-4.8) 1.9 x10^3/uL (1.0-4.8) Monocytes # (Auto) 0.8 x10^3/uL (0.0-1.1) 2.2 x10^3/uL (0.0-1.1) Eosinophils # (Auto) 0.1 x10^3/uL (0.0-0.7) 0.3 x10^3/uL (0.0-0.7) Basophils # (Auto) 0.0 x10^3/uL (0.0-0.2) 0.1 x10^3/uL (0.0-0.2) Sodium Level 143 mmol/L (136-145) 142 mmol/L (136-145) Potassium Level 3.9 mmol/L (3.5-5.1) 4.1 mmol/L (3.5-5.1) Chloride Level 111 mmol/L (98-107) 108 mmol/L (98-107) Carbon Dioxide Level 23 mmol/L (21-32) 25 mmol/L (21-32) Anion Gap 9 (6-14) 9 (6-14) Blood Urea Nitrogen 12 mg/dL (8-26) 8 mg/dL (8-26) Creatinine 1.0 mg/dL (0.7-1.3) 1.0 mg/dL (0.7-1.3) Estimated GFR (Cockcroft-Gault) 82.3 82.3 Glucose Level 99 mg/dL (70-99) 110 mg/dL (70-99) Calcium Level 7.8 mg/dL (8.5-10.1) 8.1 mg/dL (8.5-10.1) Total Bilirubin 0.6 mg/dL (0.2-1.0) Direct Bilirubin 0.2 mg/dL (0.0-0.2) Aspartate Amino Transf (AST/SGOT) 35 U/L (15-37) Alanine Aminotransferase (ALT/SGPT) 28 U/L (16-63) Alkaline Phosphatase 42 U/L (46-116) Total Protein 5.8 g/dL (6.4-8.2) Albumin 1.8 g/dL (3.4-5.0) Lipase 366 U/L (73-393) 248 U/L (73-393) O2 Saturation 92 % (92-99) Arterial Blood pH 7.41 (7.35-7.45) Arterial Blood pCO2 at Patient Temp 38 mmHg (35-46) Arterial Blood pO2 at Patient Temp 63 mmHg (75-108) Arterial Blood HCO3 23 mmol/L (21-28) Arterial Blood Base Excess -1 mmol/L (-3-3) FiO2 32 Lactic Acid Level 0.7 mmol/L (0.4-2.0) Laboratory Tests Test 03/31/18 04:00 03/31/18 08:21 03/31/18 09:25 White Blood Count 18.2 x10^3/uL (4.0-11.0) Red Blood Count 3.66 x10^6/uL (4.30-5.70) Hemoglobin 9.7 g/dL (13.0-17.5) Hematocrit 28.7 % (39.0-53.0) Mean Corpuscular Volume 78 fL (79-100) Mean Corpuscular Hemoglobin 26 pg (25-35) Mean Corpuscular Hemoglobin Concent 34 g/dL (31-37) Red Cell Distribution Width 17.2 % (11.5-14.5) Platelet Count 151 x10^3/uL (140-400) Neutrophils (%) (Auto) 76 % (31-73) Lymphocytes (%) (Auto) 10 % (24-48) Monocytes (%) (Auto) 12 % (0-9) Eosinophils (%) (Auto) 2 % (0-3) Basophils (%) (Auto) 1 % (0-3) Neutrophils # (Auto) 13.7 x10^3uL (1.8-7.7) Lymphocytes # (Auto) 1.9 x10^3/uL (1.0-4.8) Monocytes # (Auto) 2.2 x10^3/uL (0.0-1.1) Eosinophils # (Auto) 0.3 x10^3/uL (0.0-0.7) Basophils # (Auto) 0.1 x10^3/uL (0.0-0.2) Sodium Level 142 mmol/L (136-145) Potassium Level 4.1 mmol/L (3.5-5.1) Chloride Level 108 mmol/L (98-107) Carbon Dioxide Level 25 mmol/L (21-32) Anion Gap 9 (6-14) Blood Urea Nitrogen 8 mg/dL (8-26) Creatinine 1.0 mg/dL (0.7-1.3) Estimated GFR (Cockcroft-Gault) 82.3 Glucose Level 110 mg/dL (70-99) Calcium Level 8.1 mg/dL (8.5-10.1) Lipase 248 U/L (73-393) O2 Saturation 92 % (92-99) Arterial Blood pH 7.41 (7.35-7.45) Arterial Blood pCO2 at Patient Temp 38 mmHg (35-46) Arterial Blood pO2 at Patient Temp 63 mmHg (75-108) Arterial Blood HCO3 23 mmol/L (21-28) Arterial Blood Base Excess -1 mmol/L (-3-3) FiO2 32 Lactic Acid Level 0.7 mmol/L (0.4-2.0) Microbiology 03/27/18 Blood Culture - Preliminary, Resulted NO GROWTH AFTER 3 DAYS Medications Current Medications Multivitamins 10 ml/Thiamine HCl 100 mg/Folic Acid 1 mg/Sodium Chloride 1,011.2 ml @ 1,000.088 mls/hr 1X ONCE IV Last administered on 03/26/18at 15:07; Start 03/26/18 at 14:00; Stop 03/26/18 at 15:00; Status DC Ondansetron HCl (Zofran) 4 mg 1X ONCE IV Last administered on 03/26/18at 14:13 ; Start 03/26/18 at 14:00; Stop 03/26/18 at 14:10; Status DC Pantoprazole Sodium (PROTONIX VIAL for IV PUSH) 40 mg 1X ONCE IVP Last administered on 03/26/18at 14:13; Start 03/26/18 at 14:00; Stop 03/26/18 at 14:10 ; Status DC Pantoprazole Sodium (PROTONIX VIAL for IV PUSH) 40 mg STK-MED ONCE IVP ; Start 03/26/18 at 14:10; Stop 03/26/18 at 14:11; Status DC Ondansetron HCl (Zofran) 4 mg STK-MED ONCE .ROUTE ; Start 03/26/18 at 14:10; Stop 03/26/18 at 14:11; Status DC Iohexol (Omnipaque 300 Mg/ml) 75 ml 1X ONCE IV Last administered on 03/26/18at 14:38; Start 03/26/18 at 14:45; Stop 03/26/18 at 14:46; Status DC Iohexol (Omnipaque 300 Mg/ml) 100 ml STK-MED ONCE .ROUTE ; Start 03/26/18 at 14: 38; Stop 03/26/18 at 14:39; Status DC Info (CONTRAST GIVEN -- Rx MONITORING) 1 each PRN DAILY PRN MC SEE COMMENTS; Start 03/26/18 at 14:45; Stop 03/28/18 at 14:44; Status DC Ondansetron HCl (Zofran) 4 mg 1X ONCE IV Last administered on 03/26/18at 15:08 ; Start 03/26/18 at 15:00; Stop 03/26/18 at 15:01; Status DC Morphine Sulfate (Morphine Sulfate) 5 mg 1X ONCE IV Last administered on at 15:09; Start 03/26/18 at 15:00; Stop 03/26/18 at 15:01; Status DC Ondansetron HCl (Zofran) 4 mg PRN Q8HRS PRN IV NAUSEA/VOMITING Last administered on 03/27/18at 12:22; Start 03/26/18 at 15:15; Stop 03/27/18 at 15:14 ; Status DC Morphine Sulfate (Morphine Sulfate) 4 mg PRN Q2HR PRN IV PAIN Last administered on 03/27/18at 15:12; Start 03/26/18 at 15:15; Stop 03/27/18 at 15:14 ; Status DC Multivitamins 10 ml/Thiamine HCl 100 mg/Folic Acid 1 mg/Sodium Chloride 1,011.2 ml @ 100 mls/ hr DAILY IV Last administered on 03/30/18at 07:52; Start at 16:00; Stop 03/30/18 at 19:07; Status DC Lorazepam (Ativan) 2 mg PRN Q1HR PRN IV For CIWA 8-14 Last administered on 03/26at 15:59; Start 03/26/18 at 15:15; Stop 03/26/18 at 16:43; Status DC Sodium Chloride 1,000 ml @ 125 mls/hr 1X ONCE IV Last administered on at 02:10; Start 03/26/18 at 15:15; Stop 03/26/18 at 23:14; Status DC Pantoprazole Sodium (PROTONIX VIAL for IV PUSH) 40 mg DAILYAC IVP Last administered on 03/30/18at 07:52; Start 03/27/18 at 07:30; Stop 03/30/18 at 10:52 ; Status DC Multivitamins 10 ml/Thiamine HCl 100 mg/Folic Acid 1 mg/Sodium Chloride 1,011.2 ml @ 100 mls/ hr DAILY IV ; Start 03/27/18 at 09:00; Stop 03/31/18 at 19:07; Status UNV Multivitamins (Thera M Plus) 1 tab DAILY PO ; Start 03/31/18 at 09:00 Folic Acid (Folic Acid) 1 mg DAILY PO ; Start 03/31/18 at 09:00 Thiamine HCl 100 mg/Dextrose 51 ml @ 100 mls/hr DAILY IV ; Start 03/27/18 at 09 :00; Stop 03/31/18 at 09:31; Status UNV Lorazepam (Ativan) 2 mg Q6H PO Last administered on 03/26/18at 22:19; Start at 17:00; Stop 03/27/18 at 01:47; Status DC Lorazepam (Ativan) 4 mg PRN Q1HR PRN PO For CIWA 8-14; Start 03/26/18 at 16:45 Lorazepam (Ativan) 2 mg PRN Q1HR PRN IV For CIWA 8-14 Last administered on 03/31at 00:14; Start 03/26/18 at 16:45 Lorazepam (Ativan) 4 mg PRN Q1HR PRN IV For CIWA 15 or greater Last administered on 03/31/18at 10:07; Start 03/26/18 at 16:45 Haloperidol Lactate (Haldol Inj) 5 mg PRN Q4HRS PRN IVP Hallucinatns,Confusn, Delirium Last administered on 03/31/18at 05:20; Start 03/26/18 at 16:45 Diphenhydramine HCl (Benadryl) 25 mg PRN Q15MIN PRN IVP EPS symptoms 2'Haldol admin Last administered on 03/29/18at 08:25; Start 03/26/18 at 16:45 Clonidine HCl (Catapres) 0.1 mg PRN Q1HR PRN PO SBP > 180 or DBP > 100, MRX3 Last administered on 03/27/18at 05:28; Start 03/26/18 at 16:45 Lorazepam (Ativan) 2 mg PRN Q15MIN PRN IV ; Start 03/26/18 at 16:45; Status UNV Lorazepam (Ativan) 4 mg PRN Q15MIN PRN IV ; Start 03/26/18 at 16:45; Status UNV Pantoprazole Sodium (PROTONIX VIAL for IV PUSH) 40 mg DAILYAC IVP ; Start at 07:30; Status UNV Enoxaparin Sodium (Lovenox 40mg Syringe) 40 mg Q24H SQ Last administered on at 20:32; Start 03/26/18 at 21:00 Albuterol Sulfate (Ventolin Neb Soln) 2.5 mg PRN Q2HRS PRN NEB SHORTNESS OF BREATH Last administered on 03/29/18at 04:12; Start 03/26/18 at 17:00; Stop 03/30 at 13:29; Status DC Non-Formulary Medication (Albuterol Sulfate (Proair Hfa Inhaler)) 1 puff PRN Q4HRS PRN INH SHORTNESS OF BREATH; Start 03/26/18 at 16:45; Status UNV Non-Formulary Medication (Budesonide/ Formoterol Fumarate (Symbicort 160-4.5 Mcg Inhaler)) 2 puff BID IH ; Start 03/26/18 at 21:00; Status UNV Theophylline (Theodur) 300 mg BID PO Last administered on 03/30/18at 08:45; Start 03/26/18 at 21:00 Budesonide (Pulmicort) 0.5 mg RTBID NEB Last administered on 03/31/18at 08:00; Start 03/26/18 at 20:00 Albuterol Sulfate (Ventolin Neb Soln) 2.5 mg RTQID NEB Last administered on at 12:28; Start 03/26/18 at 20:00; Stop 03/30/18 at 13:24; Status DC Sodium Chloride 1,000 ml @ 1,000 mls/hr 1X ONCE IV Last administered on at 12:23; Start 03/27/18 at 12:15; Stop 03/27/18 at 13:14; Status DC Sodium Chloride 1,000 ml @ 1,000 mls/hr 1X ONCE IV Last administered on at 13:05; Start 03/27/18 at 12:15; Stop 03/27/18 at 13:14; Status DC Sodium Chloride 1,000 ml @ 1,000 mls/hr 1X ONCE IV Last administered on at 14:11; Start 03/27/18 at 12:15; Stop 03/27/18 at 13:14; Status DC Sodium Chloride 136 ml @ 500 mls/hr 1X ONCE IV Last administered on at 12:15; Start 03/27/18 at 12:15; Stop 03/27/18 at 12:31; Status DC Piperacillin Sod/ Tazobactam Sod 3.375 gm/Sodium Chloride 50 ml @ 100 mls/hr Q6HRS IV Last administered on 03/31/18at 12:16; Start 03/27/18 at 16:00 Morphine Sulfate (Morphine Sulfate) 2 mg PRN Q2HR PRN IV PAIN Last administered on 03/31/18at 10:42; Start 03/27/18 at 16:45 Ondansetron HCl (Zofran) 4 mg PRN Q6HRS PRN IV NAUSEA/VOMITING Last administered on 03/28/18at 02:34; Start 03/27/18 at 16:45 Sodium Chloride 1,000 ml @ 125 mls/hr Q8H IV Last administered on 03/29/18at 10 :14; Start 03/27/18 at 17:45; Stop 03/29/18 at 14:21; Status DC Diazepam (Valium) 5 mg PRN Q2HR PRN PO Agitation/Alcohol withdraw Last administered on 03/29/18at 02:47; Start 03/29/18 at 01:45 Belladonna Alkaloids/Opium (B & O) 1 supp PRN Q12HR PRN MT BLADDER SPASM Last administered on 03/29/18at 02:58; Start 03/29/18 at 01:45 Dexmedetomidine HCl 200 mcg/ Sodium Chloride 50 ml @ 0 mls/hr CONT PRN IV PER PROTOCOL Last administered on 03/31/18at 11:59; Start 03/29/18 at 08:30 Sodium Chloride 500 ml @ 500 mls/hr 1X PRN PRN IV SEE COMMENTS; Start at 08:30 Atropine Sulfate (ATROPINE 0.5mg SYRINGE) 0.5 mg PRN Q5MIN PRN IV SEE COMMENTS ; Start 03/29/18 at 08:30 Potassium Chloride (Klor-Con) 40 meq 1X ONCE PO Last administered on at 14:25; Start 03/29/18 at 13:15; Stop 03/29/18 at 13:16; Status DC Potassium Chloride/Sodium Chloride 1,000 ml @ 125 mls/hr Q8H IV Last administered on 03/31/18at 03:43; Start 03/29/18 at 14:15 Pantoprazole Sodium (Protonix) 40 mg DAILYAC PO ; Start 03/31/18 at 07:30; Stop 03/31/18 at 11:32; Status DC Albuterol Sulfate (Ventolin Neb Soln) 2.5 mg PRN Q4HRS PRN NEB WHEEZING; Start 03/30/18 at 13:30 Micafungin Sodium 100 mg/Dextrose 100 ml @ 100 mls/hr Q24H IV Last administered on 03/30/18at 15:26; Start 03/30/18 at 15:00 Linezolid/Dextrose 300 ml @ 300 mls/hr Q12HR IV Last administered on at 09:48; Start 03/30/18 at 14:00 Olanzapine (ZyPREXA IM) 10 mg PRN Q8HRS PRN IM ANXIETY / AGITATION; Start 03/30 at 14:00 Labetalol HCl (Normodyne Iv Push) 20 mg PRN Q2HR PRN IVP GIVE FOR SBP > 180 DBP >110 Last administered on 03/31/18at 10:02; Start 03/30/18 at 17:15 Acetaminophen (Tylenol Supp) 650 mg PRN Q6HRS PRN MT MILD PAIN / TEMP Last administered on 03/31/18at 00:49; Start 03/30/18 at 17:15 Iohexol (Omnipaque 300 Mg/ml) 75 ml 1X ONCE IV ; Start 03/31/18 at 09:15; Stop 03/31/18 at 09:16; Status DC Info (CONTRAST GIVEN -- Rx MONITORING) 1 each PRN DAILY PRN MC SEE COMMENTS; Start 03/31/18 at 09:15; Stop 04/02/18 at 09:14 Iohexol (Omnipaque 300 Mg/ml) 75 ml 1X ONCE IV Last administered on 03/31/18at 10:29; Start 03/31/18 at 10:00; Stop 03/31/18 at 10:04; Status DC Fentanyl Citrate 30 ml @ 0 mls/hr CONT PRN IV PER PROTOCOL Last administered on 03/31/18at 12:18; Start 03/31/18 at 11:00 Lorazepam (Ativan) 2 mg STK-MED ONCE .ROUTE ; Start 03/31/18 at 11:02; Stop at 11:03; Status DC Vecuronium [place] (Norcuron Bolus) 10 mg STK-MED ONCE IV ; Start 03/31/18 at 11 :05; Stop 03/31/18 at 11:06; Status DC Propofol 100 ml @ As Directed STK-MED ONCE IV ; Start 03/31/18 at 11:08; Stop 03/31/18 at 11:09; Status DC Vecuronium [place] (Norcuron Bolus) 10 mg STK-MED ONCE IV ; Start 03/31/18 at 11 :08; Stop 03/31/18 at 11:10; Status DC Succinylcholine Chloride (Anectine) 200 mg 1X ONCE IV ; Start 03/31/18 at 11:30 ; Stop 03/31/18 at 11:31; Status DC Propofol 100 ml @ 0 mls/hr CONT PRN IV PER PROTOCOL; Start 03/31/18 at 11:30 Chlorhexidine Gluconate (Peridex) 15 ml BID MM ; Start 03/31/18 at 21:00 Pantoprazole Sodium (PROTONIX VIAL for IV PUSH) 40 mg DAILYAC IVP ; Start at 07:30 Vecuronium [place] (Norcuron Bolus) 10 mg 1X ONCE IV Last administered on 03/31at 11:58; Start 03/31/18 at 12:00; Stop 03/31/18 at 12:01; Status DC Active Scripts Active Diazepam 5 Mg Tablet 5 Mg PO DAILY Reported Proair Hfa Inhaler (Albuterol Sulfate) 8.5 Gm Hfa.aer.ad 1 Puff INH PRN Q4HRS PRN Duoneb 0.5-3(2.5) Mg/3 Ml (Albuterol/Ipratropium) 3 Ml Ampul.neb 3 Ml NEB Q2HR PRN Symbicort 160-4.5 Mcg Inhaler (Budesonide/Formoterol Fumarate) 10.2 Gm Hfa.aer.ad 2 Puff IH BID Prilosec Otc (Omeprazole Magnesium) 20 Mg Tablet.dr 1 Tab PO DAILY Theophylline (Theophylline Anhydrous) 400 Mg Tablet.er 300 Mg PO BID Vitals/I & O Vital Sign - Last 24 Hours 03/30/18 03/30/18 03/30/18 03/30/18 12:28 13:00 14:00 15:00 Pulse 96 85 87 Resp 29 B/P (MAP) 160/96 (117) 164/94 (117) 172/99 (123) Pulse Ox 98 96 96 93 O2 Delivery Nasal Cannula Nasal Cannula Nasal Cannula Nasal Cannula O2 Flow Rate 5.0 3.0 3.0 3.0 03/30/18 03/30/18 03/30/18 03/30/18 15:12 15:42 16:00 16:00 Temp 102.3 102.3 Pulse 88 Resp 29 B/P (MAP) 175/89 (117) Pulse Ox 96 93 93 O2 Delivery Nasal Cannula Nasal Cannula Nasal Cannula O2 Flow Rate 3.0 3.0 3.0 3.0 03/30/18 03/30/18 03/30/18 03/30/18 17:00 18:00 19:00 19:45 Temp 102.1 100.6 102.1 100.6 Pulse 86 85 84 Resp 27 B/P (MAP) 173/95 (121) 171/88 (115) 147/82 (103) Pulse Ox 95 94 96 O2 Delivery Nasal Cannula Nasal Cannula Nasal Cannula Nasal Cannula O2 Flow Rate 3.0 3.0 3.0 3.0 03/30/18 03/30/18 03/30/18 03/30/18 19:59 20:00 21:00 22:00 Temp 101.0 101.0 Pulse 81 82 81 Resp 29 B/P (MAP) 154/85 (108) 157/93 (114) 154/88 (110) Pulse Ox 96 99 94 97 O2 Delivery Nasal Cannula Nasal Cannula Nasal Cannula Nasal Cannula O2 Flow Rate 5.0 3.0 3.0 3.0 03/30/18 03/31/18 03/31/18 03/31/18 23:00 00:00 00:00 01:00 Temp 100.8 101.0 100.8 101.0 Pulse 81 84 81 Resp 18 16 19 B/P (MAP) 170/75 (106) 154/87 (109) 158/91 (113) Pulse Ox 95 92 97 O2 Delivery Nasal Cannula Nasal Cannula Nasal Cannula Nasal Cannula O2 Flow Rate 3.0 3.0 3.0 3.0 03/31/18 03/31/18 03/31/18 03/31/18 02:00 03:00 04:00 04:00 Temp 101.1 101.6 101.1 101.6 Pulse 81 82 81 Resp 27 B/P (MAP) 158/91 (113) 165/95 (118) 161/97 (118) Pulse Ox 97 95 97 O2 Delivery Nasal Cannula Nasal Cannula Nasal Cannula Nasal Cannula O2 Flow Rate 3.0 3.0 3.0 3.0 03/31/18 03/31/18 03/31/18 03/31/18 05:00 05:14 06:00 07:00 Temp 99.6 99.6 Pulse 81 85 91 84 Resp 28 B/P (MAP) 181/94 (123) 181/94 168/78 (108) 169/91 (117) Pulse Ox 92 97 97 O2 Delivery Nasal Cannula Nasal Cannula Nasal Cannula O2 Flow Rate 3.0 3.0 3.0 03/31/18 03/31/18 03/31/18 03/31/18 08:46 10:02 10:42 11:30 Pulse 83 Resp 28 B/P (MAP) 185/96 Pulse Ox 98 100 O2 Delivery Nasal Cannula Nasal Cannula Ventilator O2 Flow Rate 3.0 3.0 03/31/18 03/31/18 11:54 12:18 Pulse Ox 100 O2 Delivery Nasal Cannula Ventilator Intake and Output 03/30/18 03/30/18 03/31/18 15:00 23:00 07:00 Intake Total 50 ml 4579 ml 2217 ml Balance 50 ml 4579 ml 2217 ml BIGG NICHOLE MD Mar 31, 2018 12:32
--- NOTE | 2018-03-31 13:10 | PDOC ---
Infectious Disease Note Subjective: Subjective Pt was agitated earlier had pulled out the central line had another line placed T > 101.3 continues to have fevers wbc is increasing ROS: ROS unable to obtain d/w rn Vital Signs: Vital Signs Vital Signs Date Time Temp Pulse Resp B/P (MAP) Pulse Ox O2 Delivery O2 Flow Rate FiO2 03/31/18 12:18 100 Ventilator 03/31/18 10:42 28 3.0 03/31/18 10:02 83 185/96 03/31/18 06:00 99.6 99.6 Physical Exam: PHYSICAL EXAM GENERAL: sedated Heent fixed pupils LUNGS: Breathing nonlabored CV: Regular ABD: Obese, moderate distended with mild tenderness : Kramer + EXT: No gross edema or cyanosis rt central line in place, clean Medications: Inpatient Meds: Current Medications Medications (Trade) Dose Ordered Sig/Wli Start Time Stop Time Status Last Admin Dose Admin Acetaminophen (Tylenol Supp) 650 mg PRN Q6HRS PRN 03/30/18 17:15 03/31/18 00:49 650 MG Albuterol Sulfate (Ventolin Neb Soln) 2.5 mg PRN Q4HRS PRN 03/30/18 13:30 Atropine Sulfate (ATROPINE 0.5mg SYRINGE) 0.5 mg PRN Q5MIN PRN 03/29/18 08:30 Belladonna Alkaloids/Opium (B & O) 1 supp PRN Q12HR PRN 03/29/18 01:45 03/29/18 02:58 1 SUPP Budesonide (Pulmicort) 0.5 mg RTBID 03/26/18 20:00 03/31/18 08:00 0.5 MG Chlorhexidine Gluconate (Peridex) 15 ml BID 03/31/18 21:00 Clonidine HCl (Catapres) 0.1 mg PRN Q1HR PRN 03/26/18 16:45 03/27/18 05:28 0.1 MG Dexmedetomidine HCl 200 mcg/ Sodium Chloride 50 ml @ 0 mls/hr CONT PRN 03/29/18 08:30 03/31/18 11:59 31.8 MLS/HR Diazepam (Valium) 5 mg PRN Q2HR PRN 03/29/18 01:45 03/29/18 02:47 5 MG Diphenhydramine HCl (Benadryl) 25 mg PRN Q15MIN PRN 03/26/18 16:45 03/29/18 08:25 25 MG Enoxaparin Sodium (Lovenox 40mg Syringe) 40 mg Q24H 03/26/18 21:00 03/30/18 20:32 40 MG Fentanyl Citrate 30 ml @ 0 mls/hr CONT PRN 03/31/18 11:00 03/31/18 12:18 25 MLS/HR Folic Acid (Folic Acid) 1 mg DAILY 03/31/18 09:00 Haloperidol Lactate (Haldol Inj) 5 mg PRN Q4HRS PRN 03/26/18 16:45 03/31/18 05:20 5 MG Info (CONTRAST GIVEN -- Rx MONITORING) 1 each PRN DAILY PRN 03/31/18 09:15 04/02/18 09:14 Iohexol (Omnipaque 300 Mg/ml) 75 ml 1X ONCE 03/31/18 10:00 03/31/18 10:04 DC 03/31/18 10:29 75 ML Labetalol HCl (Normodyne Iv Push) 20 mg PRN Q2HR PRN 03/30/18 17:15 03/31/18 10:02 20 MG Linezolid/Dextrose 300 ml @ 300 mls/hr Q12HR 03/30/18 14:00 03/31/18 09:48 300 MLS/HR Lorazepam (Ativan) 2 mg STK-MED ONCE 03/31/18 11:02 03/31/18 11:03 DC Micafungin Sodium 100 mg/Dextrose 100 ml @ 100 mls/hr Q24H 03/30/18 15:00 03/30/18 15:26 100 MLS/HR Morphine Sulfate (Morphine Sulfate) 2 mg PRN Q2HR PRN 03/27/18 16:45 03/31/18 10:42 2 MG Multivitamins (Thera M Plus) 1 tab DAILY 03/31/18 09:00 Multivitamins 10 ml/Thiamine HCl 100 mg/Folic Acid 1 mg/Sodium Chloride 1,011.2 ml @ 100 mls/ hr DAILY 03/27/18 09:00 03/31/18 19:07 UNV Non-Formulary Medication (Albuterol Sulfate (Proair Hfa Inhaler)) 1 puff PRN Q4HRS PRN 03/26/18 16:45 UNV Non-Formulary Medication (Budesonide/ Formoterol Fumarate (Symbicort 160-4.5 Mcg Inhaler)) 2 puff BID 03/26/18 21:00 UNV Olanzapine (ZyPREXA IM) 10 mg PRN Q8HRS PRN 03/30/18 14:00 Ondansetron HCl (Zofran) 4 mg PRN Q6HRS PRN 03/27/18 16:45 03/28/18 02:34 4 MG Pantoprazole Sodium (PROTONIX VIAL for IV PUSH) 40 mg DAILYAC 04/01/18 07:30 Pantoprazole Sodium (Protonix) 40 mg DAILYAC 03/31/18 07:30 03/31/18 11:32 DC Piperacillin Sod/ Tazobactam Sod 3.375 gm/Sodium Chloride 50 ml @ 100 mls/hr Q6HRS 03/27/18 16:00 03/31/18 12:16 100 MLS/HR Potassium Chloride/Sodium Chloride 1,000 ml @ 125 mls/hr Q8H 03/29/18 14:15 03/31/18 03:43 125 MLS/HR Potassium Chloride (Klor-Con) 40 meq 1X ONCE 03/29/18 13:15 03/29/18 13:16 DC 03/29/18 14:25 40 MEQ Propofol 100 ml @ 0 mls/hr CONT PRN 03/31/18 11:30 Sodium Chloride 500 ml @ 500 mls/hr 1X PRN PRN 03/29/18 08:30 Succinylcholine Chloride (Anectine) 200 mg 1X ONCE 03/31/18 11:30 03/31/18 11:31 DC Theophylline (Theodur) 300 mg BID 03/26/18 21:00 03/30/18 08:45 300 MG Thiamine HCl 100 mg/Dextrose 51 ml @ 100 mls/hr DAILY 03/27/18 09:00 03/31/18 09:31 UNV Vecuronium [place] (Norcuron Bolus) 10 mg 1X ONCE 03/31/18 12:00 03/31/18 12:01 DC 03/31/18 11:58 6 MG Labs: Lab Laboratory Tests Test 03/31/18 04:00 03/31/18 08:03/31/18 09:25 White Blood Count 18.2 x10^3/uL (4.0-11.0) Red Blood Count 3.66 x10^6/uL (4.30-5.70) Hemoglobin 9.7 g/dL (13.0-17.5) Hematocrit 28.7 % (39.0-53.0) Mean Corpuscular Volume 78 fL (79-100) Mean Corpuscular Hemoglobin 26 pg (25-35) Mean Corpuscular Hemoglobin Concent 34 g/dL (31-37) Red Cell Distribution Width 17.2 % (11.5-14.5) Platelet Count 151 x10^3/uL (140-400) Neutrophils (%) (Auto) 76 % (31-73) Lymphocytes (%) (Auto) 10 % (24-48) Monocytes (%) (Auto) 12 % (0-9) Eosinophils (%) (Auto) 2 % (0-3) Basophils (%) (Auto) 1 % (0-3) Neutrophils # (Auto) 13.7 x10^3uL (1.8-7.7) Lymphocytes # (Auto) 1.9 x10^3/uL (1.0-4.8) Monocytes # (Auto) 2.2 x10^3/uL (0.0-1.1) Eosinophils # (Auto) 0.3 x10^3/uL (0.0-0.7) Basophils # (Auto) 0.1 x10^3/uL (0.0-0.2) Sodium Level 142 mmol/L (136-145) Potassium Level 4.1 mmol/L (3.5-5.1) Chloride Level 108 mmol/L (98-107) Carbon Dioxide Level 25 mmol/L (21-32) Anion Gap 9 (6-14) Blood Urea Nitrogen 8 mg/dL (8-26) Creatinine 1.0 mg/dL (0.7-1.3) Estimated GFR (Cockcroft-Gault) 82.3 Glucose Level 110 mg/dL (70-99) Calcium Level 8.1 mg/dL (8.5-10.1) Lipase 248 U/L (73-393) O2 Saturation 92 % (92-99) Arterial Blood pH 7.41 (7.35-7.45) Arterial Blood pCO2 at Patient Temp 38 mmHg (35-46) Arterial Blood pO2 at Patient Temp 63 mmHg (75-108) Arterial Blood HCO3 23 mmol/L (21-28) Arterial Blood Base Excess -1 mmol/L (-3-3) FiO2 32 Lactic Acid Level 0.7 mmol/L (0.4-2.0) Objective: Assessment: Fever with worsening CT abdomen pancreatic and peripancreatic changes BC neg Leukocytosis worsening Pancreatitis,with worsening changes on ct Encephalopathy, likely medication related ZAIRA - improved Alcoholism with DTs Hypertension Thrombocytopenia Plan: Plan of Care change Zosyn to empiric merrem cont micafungin and linezolid ( 03/30) BC from 03/27 NGTD F/U BC 03/31 GI following Withdrawal precautions D/W EDIE KNIGHT MD Mar 31, 2018 13:10
[2018-03-31 13:22] LABS: BASE EXCESS COOX 0 mmol/L (-3-3); HCO3 COOX 25 mmol/L (21-28); METHEMOGLOBIN 0.3 % (0.0-1.9); OXYHEMOGLOBIN 98.8 %; PCO2 COOX 42 mmHg (35-46); PO2 COOX 383 mmHg (75-108); SAT O2 COOX 99 % (92-99)
--- NOTE | 2018-03-31 13:47 | RAD ---
KUB, CHEST AP supine ONLY Clinical Indication: OG PLACEMENT Comparison: None. Findings: Enteric tube tip and side port are in the proximal stomach. Endotracheal tube tip is 4.2 cm superior to the osvaldo. There is right IJ central line, tip at superior atrial caval junction. No dilated small bowel. Mild air in the colon. No organomegaly. Cardiac size upper limits of normal. There is left basilar retrocardiac opacity. Pulmonary vasculature is upper limits of normal. There is no obvious pneumothorax, limited sensitivity with supine positioning. No pleural effusion is appreciated. No acute bone abnormality. IMPRESSION: 1. Appropriate position of life support devices. 2. Left basilar retrocardiac opacity. 3. Pulmonary vasculature is upper limits of normal. 4. Nonobstructive bowel gas pattern. Electronically signed by: Tommy Estrada MD (03/31/2018 1:44 PM) [id number]
[2018-03-31 14:22] LABS: MAGNESIUM 1.8 mg/dL (1.8-2.4); PHOSPHORUS 3.3 mg/dL (2.6-4.7)
[2018-03-31] MEDS: TPN PER PHARMACY MC PRN (15:12)
[2018-03-31] MEDS: MICAFUNGIN 100 MG in IV DEXTROSE 5% 100ML 100 ML IV SCH (15:49)
[2018-03-31] MEDS: OCTREOTIDE 100 MCG/ML VIAL SQ SCH ×2 (15:49→21:42)
[2018-03-31] MEDS: MEROPENEM 500 MG in IV NORMAL SALINE 50ML 50 ML IV SCH ×2 (17:07→23:46)
--- NOTE | 2018-03-31 18:36 | RAD ---
Procedure: Ultrasound guided Central line placement Clinical Indication: Patient requiring central venous access Sedation: Local anesthesia only Antibiotics: None Fluoro Time: None Contrast: None Sterility: All elements of maximal sterile barrier technique including the use of a cap, mask, sterile gown, sterile gloves, large sterile sheet, appropriate hand hygiene, and 2% chlorhexidine for cutaneous antisepsis (or acceptable alternative antiseptic per current guidelines) were followed for this procedure. Consent: The procedure was explained in its entirety to the patient or the patients designated customer service representative by a member of the treatment team, including a discussion of the risks, benefits and commonly accepted alternatives to the procedure, as well as the expected consequences of no therapy whatsoever. Discussion of the risks included, but was not limited to, those that are most frequent and those that are rare but possibly severe or life-threatening, as well as the possibility of unforeseen complications. Technique and Findings: Following informed consent, the patient was prepped and draped in usual sterile fashion. Ultrasound interrogation of the right neck revealed patency and compressibility of the targeted jugular vein. A hard copy ultrasound image was recorded as a 21-gauge micro puncture needle was used to gain access to this vein with a single stick. The needle was exchanged over a wire for a small dilator followed by a triple lumen central line. All 3 lumens flushed and aspirated with ease and the catheter was sutured to the skin. Complications: No immediate Impression: 1. Central line placement as described
[2018-03-31] MEDS: CHLORHEXIDINE 0.12% 15 ML MOUTHWASH. MM SCH (21:41)
[2018-03-31] MEDS: ENOXAPARIN 40 MG/0.4 ML SYRINGE. SQ SCH (21:42)
[2018-03-31] MEDS ORDERED: AMINO ACIDS IV SCH ×12 (22:00)
[2018-03-31] MEDS ORDERED: DEXTROSE 70% IV SCH ×12 (22:00)
[2018-03-31] MEDS ORDERED: [UNRECOGNIZED DRUG - OTHER] IV SCH ×12 (22:00)
[2018-03-31] MEDS ORDERED: TOTAL PARENTERAL NUTRITION IV SCH ×12 (22:00)
[2018-04-01] VITALS (25 sets, daily range): BP systolic 96–155; BP diastolic 52–78
[2018-04-01] MEDS: PROPOFOL 100 ML IV PRN ×6 (03:24→22:57)
[2018-04-01] MEDS: OCTREOTIDE 100 MCG/ML VIAL SQ SCH ×3 (06:01→22:34)
[2018-04-01] MEDS: MEROPENEM 500 MG in IV NORMAL SALINE 50ML 50 ML IV SCH ×4 (06:01→23:54)
[2018-04-01 06:14] LABS: BASO # 0.1 x10^3/uL (0.0-0.2); BASO % 1 % (0-3); EOS # 0.2 x10^3/uL (0.0-0.7); EOS % 2 % (0-3); HEMATOCRIT 24.4 % (39.0-53.0); LYMPH # 0.8 x10^3/uL (1.0-4.8); LYMPH % 11 % (24-48); MEAN CORPUSCULAR HEMOGLOBIN 26 pg (25-35); MEAN CORPUSCULAR HGB CONC 33 g/dL (31-37); MEAN CORPUSCULAR VOLUME 79 fL (79-100); MONO # 0.9 x10^3/uL (0.0-1.1); MONO % 12 % (0-9); NEUT # 5.9 x10^3uL (1.8-7.7); NEUT % 74 % (31-73); PLATELET COUNT 157 x10^3/uL (140-400); RED BLOOD COUNT 3.09 x10^6/uL (4.30-5.70); WHITE BLOOD COUNT 7.9 x10^3/uL (4.0-11.0)
[2018-04-01 06:36] LABS: CALCIUM 8.2 mg/dL (8.5-10.1); CREATININE 0.8 mg/dL (0.7-1.3); GFR 106.5; MAGNESIUM 1.9 mg/dL (1.8-2.4); PHOSPHORUS 3.1 mg/dL (2.6-4.7); POTASSIUM 3.8 mmol/L (3.5-5.1)
[2018-04-01] MEDS: PANTOPRAZOLE IV PUSH 40 MG VIAL. IVP SCH (07:42)
[2018-04-01] MEDS: BUDESONIDE 0.5 MG/2 ML NEBU. NEB SCH ×2 (07:51→20:06)
--- NOTE | 2018-04-01 07:52 | PDOC ---
Infectious Disease Note Subjective: Subjective Fever pattern is improving on propofol, ativan and fentanyl opens eyes comfortable d/w RN ROS: ROS limited Vital Signs: Vital Signs Vital Signs Date Time Temp Pulse Resp B/P (MAP) Pulse Ox O2 Delivery O2 Flow Rate FiO2 04/01/18 06:50 18 98 Ventilator 3.0 04/01/18 06:00 64 110/56 (74) 04/01/18 04:00 99.8 99.8 Physical Exam: PHYSICAL EXAM GENERAL: opens eyes , Heent fixed pupils LUNGS: Breathing nonlabored CV: Regular ABD: Obese, moderately distended ,BS + : Kramer + EXT: No gross edema or cyanosis rt central line in place, clean Medications: Inpatient Meds: Current Medications Medications (Trade) Dose Ordered Sig/Wil Start Time Stop Time Status Last Admin Dose Admin Acetaminophen (Tylenol Supp) 650 mg PRN Q6HRS PRN 03/30/18 17:15 03/31/18 15:02 650 MG Albuterol Sulfate (Ventolin Neb Soln) 2.5 mg PRN Q4HRS PRN 03/30/18 13:30 Atropine Sulfate (ATROPINE 0.5mg SYRINGE) 0.5 mg PRN Q5MIN PRN 03/29/18 08:30 Belladonna Alkaloids/Opium (B & O) 1 supp PRN Q12HR PRN 03/29/18 01:45 03/29/18 02:58 1 SUPP Budesonide (Pulmicort) 0.5 mg RTBID 03/26/18 20:00 03/31/18 19:28 0.5 MG Chlorhexidine Gluconate (Peridex) 15 ml BID 03/31/18 21:00 03/31/18 21:41 15 ML Clonidine HCl (Catapres) 0.1 mg PRN Q1HR PRN 03/26/18 16:45 03/27/18 05:28 0.1 MG Dexmedetomidine HCl 200 mcg/ Sodium Chloride 50 ml @ 0 mls/hr CONT PRN 03/29/18 08:30 03/31/18 13:09 23.8 MLS/HR Diazepam (Valium) 5 mg PRN Q2HR PRN 03/29/18 01:45 03/29/18 02:47 5 MG Diphenhydramine HCl (Benadryl) 25 mg PRN Q15MIN PRN 03/26/18 16:45 03/29/18 08:25 25 MG Enoxaparin Sodium (Lovenox 40mg Syringe) 40 mg Q24H 03/26/18 21:00 03/31/18 21:42 40 MG Fentanyl Citrate 30 ml @ 0 mls/hr CONT PRN 03/31/18 11:00 04/01/18 06:50 2.5 MLS/HR Folic Acid (Folic Acid) 1 mg DAILY 03/31/18 09:00 03/31/18 14:18 DC Haloperidol Lactate (Haldol Inj) 5 mg PRN Q4HRS PRN 03/26/18 16:45 03/31/18 05:20 5 MG Info (CONTRAST GIVEN -- Rx MONITORING) 1 each PRN DAILY PRN 03/31/18 09:15 04/02/18 09:14 Info (Tpn Per Pharmacy) 1 each PRN DAILY PRN 03/31/18 14:00 03/31/18 15:12 1 EACH Iohexol (Omnipaque 300 Mg/ml) 75 ml 1X ONCE 03/31/18 10:00 03/31/18 10:04 DC 03/31/18 10:29 75 ML Labetalol HCl (Normodyne Iv Push) 20 mg PRN Q2HR PRN 03/30/18 17:15 03/31/18 10:02 20 MG Linezolid/Dextrose 300 ml @ 300 mls/hr Q12HR 03/30/18 14:00 03/31/18 21:42 300 MLS/HR Lorazepam (Ativan) 2 mg STK-MED ONCE 03/31/18 11:02 03/31/18 11:03 DC Meropenem 500 mg/ Sodium Chloride 50 ml @ 100 mls/hr Q6HRS 03/31/18 18:00 04/01/18 06:01 100 MLS/HR Micafungin Sodium 100 mg/Dextrose 100 ml @ 100 mls/hr Q24H 03/30/18 15:00 03/31/18 15:49 100 MLS/HR Morphine Sulfate (Morphine Sulfate) 2 mg PRN Q2HR PRN 03/27/18 16:45 03/31/18 10:42 2 MG Multivitamins (Thera M Plus) 1 tab DAILY 03/31/18 09:00 03/31/18 14:18 DC Multivitamins 10 ml/Thiamine HCl 100 mg/Folic Acid 1 mg/Sodium Chloride 1,011.2 ml @ 100 mls/ hr DAILY 03/27/18 09:00 03/31/18 19:07 UNV Non-Formulary Medication (Albuterol Sulfate (Proair Hfa Inhaler)) 1 puff PRN Q4HRS PRN 03/26/18 16:45 UNV Non-Formulary Medication (Budesonide/ Formoterol Fumarate (Symbicort 160-4.5 Mcg Inhaler)) 2 puff BID 03/26/18 21:00 UNV Octreotide Acetate (SandoSTATIN) 100 mcg Q8HRS 03/31/18 15:30 04/01/18 06:01 100 MCG Olanzapine (ZyPREXA IM) 10 mg PRN Q8HRS PRN 03/30/18 14:00 Ondansetron HCl (Zofran) 4 mg PRN Q6HRS PRN 03/27/18 16:45 03/28/18 02:34 4 MG Pantoprazole Sodium (PROTONIX VIAL for IV PUSH) 40 mg DAILYAC 04/01/18 07:30 04/01/18 07:42 40 MG Pantoprazole Sodium (Protonix) 40 mg DAILYAC 03/31/18 07:30 03/31/18 11:32 DC Piperacillin Sod/ Tazobactam Sod 3.375 gm/Sodium Chloride 50 ml @ 100 mls/hr Q6HRS 03/27/18 16:00 03/31/18 13:38 DC 03/31/18 12:16 100 MLS/HR Potassium Chloride/Sodium Chloride 1,000 ml @ 75 mls/hr [id number] 03/29/18 14:15 03/31/18 03:43 125 MLS/HR Potassium Chloride (Klor-Con) 40 meq 1X ONCE 03/29/18 13:15 03/29/18 13:16 DC 03/29/18 14:25 40 MEQ Propofol 100 ml @ 0 mls/hr CONT PRN 03/31/18 11:30 04/01/18 03:24 17 MLS/HR Sodium Chloride 45 meq/Sodium Acetate 45 meq/ Potassium Chloride 50 meq/ Potassium Phosphate 13.6 mmol/Magnesium Sulfate 10 meq/ Calcium Gluconate 10 meq/ Multivitamins 10 ml/Chromium/ Copper/Manganese/ Seleni/Zn 1 ml/ Folic Acid 1 mg/ Thiamine HCl 100 mg/Total Donna... 1,512 ml @ 63 mls/hr TPN CONT 03/31/18 22:00 04/01/18 21:59 03/31/18 21:41 63 MLS/HR Succinylcholine Chloride (Anectine) 200 mg 1X ONCE 03/31/18 11:30 03/31/18 11:31 DC Theophylline (Theodur) 300 mg BID 03/26/18 21:00 03/30/18 08:45 300 MG Thiamine HCl 100 mg/Dextrose 51 ml @ 100 mls/hr DAILY 03/27/18 09:00 03/31/18 09:31 UNV Vecuronium [place] (Norcuron Bolus) 10 mg 1X ONCE 03/31/18 12:00 03/31/18 12:01 DC 03/31/18 11:58 6 MG Labs: Lab Laboratory Tests Test 03/31/18 08:21 03/31/18 09:25 03/31/18 11:20 04/01/18 06:05 O2 Saturation 92 % (92-99) 99 % (92-99) Arterial Blood pH 7.41 (7.35-7.45) 7.39 (7.35-7.45) Arterial Blood pCO2 at Patient Temp 38 mmHg (35-46) 42 mmHg (35-46) Arterial Blood pO2 at Patient Temp 63 mmHg (75-108) 383 mmHg (75-108) Arterial Blood HCO3 23 mmol/L (21-28) 25 mmol/L (21-28) Arterial Blood Base Excess -1 mmol/L (-3-3) 0 mmol/L (-3-3) FiO2 32 100 Lactic Acid Level 0.7 mmol/L (0.4-2.0) Oxyhemoglobin 98.8 % Methemoglobin 0.3 % (0.0-1.9) Carbon Monoxide, Quantitative 0.3 % (0.0-1.9) White Blood Count 7.9 x10^3/uL (4.0-11.0) Red Blood Count 3.09 x10^6/uL (4.30-5.70) Hemoglobin 8.0 g/dL (13.0-17.5) Hematocrit 24.4 % (39.0-53.0) Mean Corpuscular Volume 79 fL (79-100) Mean Corpuscular Hemoglobin 26 pg (25-35) Mean Corpuscular Hemoglobin Concent 33 g/dL (31-37) Red Cell Distribution Width 17.0 % (11.5-14.5) Platelet Count 157 x10^3/uL (140-400) Neutrophils (%) (Auto) 74 % (31-73) Lymphocytes (%) (Auto) 11 % (24-48) Monocytes (%) (Auto) 12 % (0-9) Eosinophils (%) (Auto) 2 % (0-3) Basophils (%) (Auto) 1 % (0-3) Neutrophils # (Auto) 5.9 x10^3uL (1.8-7.7) Lymphocytes # (Auto) 0.8 x10^3/uL (1.0-4.8) Monocytes # (Auto) 0.9 x10^3/uL (0.0-1.1) Eosinophils # (Auto) 0.2 x10^3/uL (0.0-0.7) Basophils # (Auto) 0.1 x10^3/uL (0.0-0.2) Sodium Level 141 mmol/L (136-145) Potassium Level 3.8 mmol/L (3.5-5.1) Chloride Level 107 mmol/L (98-107) Carbon Dioxide Level 28 mmol/L (21-32) Anion Gap 6 (6-14) Blood Urea Nitrogen 6 mg/dL (8-26) Creatinine 0.8 mg/dL (0.7-1.3) Estimated GFR (Cockcroft-Gault) 106.5 Glucose Level 153 mg/dL (70-99) Calcium Level 8.2 mg/dL (8.5-10.1) Phosphorus Level 3.1 mg/dL (2.6-4.7) Magnesium Level 1.9 mg/dL (1.8-2.4) Triglycerides Level 151 mg/dL (0-150) Objective: Assessment: Fever pattern improving Leukocytosis resolved, ? reactive vs other Pancreatitis,with worsening changes on ct Encephalopathy, likely medication related ZAIRA - improved Alcoholism with DTs Hypertension Lt lung opacity ? aspiration Plan: Plan of Care cont merrem micafungin and linezolid ( 03/30) NGTD GI following Withdrawal precautions D/W EDIE KNIGHT MD Apr 01, 2018 07:52
--- NOTE | 2018-04-01 08:37 | RAD ---
Portable chest, 04/01/2018: HISTORY: Respiratory failure Comparison is made to yesterday's study. The ET tube tip lies well above the osvaldo. A right jugular central venous catheter extends into the superior aspect of the right atrium. An NG tube extends in the stomach. The heart is enlarged. The pulmonary vascularity appears congested with loss of vascular margination. There are moderate bibasilar opacities suggesting pleural fluid and underlying atelectasis/infiltrate. The findings appear to have worsened slightly since yesterday study. Differences in patient positioning could be contributing to this apparent change. IMPRESSION: 1. Stable tube positions. 2. Vascular congestion with worsening basilar opacities compatible with a combination of pleural fluid and atelectasis/infiltrate. Electronically signed by: Esteban Hall MD (04/01/2018 8:33 AM) [facility]
[2018-04-01] MEDS: THEOPHYLLINE 12HR ER 300 MG TAB.ER.12H. PO SCH ×2 (09:00→20:44)
--- NOTE | 2018-04-01 11:04 | PDOC ---
PULMONARY PROGRESS NOTES Subjective intubated 03/31 was very combative yesterday and a threat to staff and himself Vitals Vital Signs Date Time Temp Pulse Resp B/P (MAP) Pulse Ox O2 Delivery O2 Flow Rate FiO2 04/01/18 09:29 100 Ventilator 04/01/18 09:00 74 17 132/67 (88) 04/01/18 08:00 98.7 98.7 04/01/18 06:50 3.0 Lungs: Clear Cardiovascular: S1 Abdomen: Soft Extremities: Other (1+edema) Skin: Warm Labs Laboratory Tests Test 03/31/18 04:00 03/31/18 08:21 03/31/18 09:25 03/31/18 11:20 White Blood Count 18.2 x10^3/uL (4.0-11.0) Red Blood Count 3.66 x10^6/uL (4.30-5.70) Hemoglobin 9.7 g/dL (13.0-17.5) Hematocrit 28.7 % (39.0-53.0) Mean Corpuscular Volume 78 fL (79-100) Mean Corpuscular Hemoglobin 26 pg (25-35) Mean Corpuscular Hemoglobin Concent 34 g/dL (31-37) Red Cell Distribution Width 17.2 % (11.5-14.5) Platelet Count 151 x10^3/uL (140-400) Neutrophils (%) (Auto) 76 % (31-73) Lymphocytes (%) (Auto) 10 % (24-48) Monocytes (%) (Auto) 12 % (0-9) Eosinophils (%) (Auto) 2 % (0-3) Basophils (%) (Auto) 1 % (0-3) Neutrophils # (Auto) 13.7 x10^3uL (1.8-7.7) Lymphocytes # (Auto) 1.9 x10^3/uL (1.0-4.8) Monocytes # (Auto) 2.2 x10^3/uL (0.0-1.1) Eosinophils # (Auto) 0.3 x10^3/uL (0.0-0.7) Basophils # (Auto) 0.1 x10^3/uL (0.0-0.2) Sodium Level 142 mmol/L (136-145) Potassium Level 4.1 mmol/L (3.5-5.1) Chloride Level 108 mmol/L (98-107) Carbon Dioxide Level 25 mmol/L (21-32) Anion Gap 9 (6-14) Blood Urea Nitrogen 8 mg/dL (8-26) Creatinine 1.0 mg/dL (0.7-1.3) Estimated GFR (Cockcroft-Gault) 82.3 Glucose Level 110 mg/dL (70-99) Calcium Level 8.1 mg/dL (8.5-10.1) Phosphorus Level 3.3 mg/dL (2.6-4.7) Magnesium Level 1.8 mg/dL (1.8-2.4) Lipase 248 U/L (73-393) O2 Saturation 92 % (92-99) 99 % (92-99) Arterial Blood pH 7.41 (7.35-7.45) 7.39 (7.35-7.45) Arterial Blood pCO2 at Patient Temp 38 mmHg (35-46) 42 mmHg (35-46) Arterial Blood pO2 at Patient Temp 63 mmHg (75-108) 383 mmHg (75-108) Arterial Blood HCO3 23 mmol/L (21-28) 25 mmol/L (21-28) Arterial Blood Base Excess -1 mmol/L (-3-3) 0 mmol/L (-3-3) FiO2 32 100 Lactic Acid Level 0.7 mmol/L (0.4-2.0) Oxyhemoglobin 98.8 % Methemoglobin 0.3 % (0.0-1.9) Carbon Monoxide, Quantitative 0.3 % (0.0-1.9) Test 04/01/18 06:05 04/01/18 08:17 White Blood Count 7.9 x10^3/uL (4.0-11.0) Red Blood Count 3.09 x10^6/uL (4.30-5.70) Hemoglobin 8.0 g/dL (13.0-17.5) Hematocrit 24.4 % (39.0-53.0) Mean Corpuscular Volume 79 fL (79-100) Mean Corpuscular Hemoglobin 26 pg (25-35) Mean Corpuscular Hemoglobin Concent 33 g/dL (31-37) Red Cell Distribution Width 17.0 % (11.5-14.5) Platelet Count 157 x10^3/uL (140-400) Neutrophils (%) (Auto) 74 % (31-73) Lymphocytes (%) (Auto) 11 % (24-48) Monocytes (%) (Auto) 12 % (0-9) Eosinophils (%) (Auto) 2 % (0-3) Basophils (%) (Auto) 1 % (0-3) Neutrophils # (Auto) 5.9 x10^3uL (1.8-7.7) Lymphocytes # (Auto) 0.8 x10^3/uL (1.0-4.8) Monocytes # (Auto) 0.9 x10^3/uL (0.0-1.1) Eosinophils # (Auto) 0.2 x10^3/uL (0.0-0.7) Basophils # (Auto) 0.1 x10^3/uL (0.0-0.2) Sodium Level 141 mmol/L (136-145) Potassium Level 3.8 mmol/L (3.5-5.1) Chloride Level 107 mmol/L (98-107) Carbon Dioxide Level 28 mmol/L (21-32) Anion Gap 6 (6-14) Blood Urea Nitrogen 6 mg/dL (8-26) Creatinine 0.8 mg/dL (0.7-1.3) Estimated GFR (Cockcroft-Gault) 106.5 Glucose Level 153 mg/dL (70-99) Calcium Level 8.2 mg/dL (8.5-10.1) Phosphorus Level 3.1 mg/dL (2.6-4.7) Magnesium Level 1.9 mg/dL (1.8-2.4) Triglycerides Level 151 mg/dL (0-150) Glucose (Fingerstick) 161 mg/dL (70-99) Laboratory Tests Test 03/31/18 11:20 04/01/18 06:05 04/01/18 08:17 O2 Saturation 99 % (92-99) Arterial Blood pH 7.39 (7.35-7.45) Arterial Blood pCO2 at Patient Temp 42 mmHg (35-46) Arterial Blood pO2 at Patient Temp 383 mmHg (75-108) Arterial Blood HCO3 25 mmol/L (21-28) Arterial Blood Base Excess 0 mmol/L (-3-3) Oxyhemoglobin 98.8 % Methemoglobin 0.3 % (0.0-1.9) Carbon Monoxide, Quantitative 0.3 % (0.0-1.9) FiO2 100 White Blood Count 7.9 x10^3/uL (4.0-11.0) Red Blood Count 3.09 x10^6/uL (4.30-5.70) Hemoglobin 8.0 g/dL (13.0-17.5) Hematocrit 24.4 % (39.0-53.0) Mean Corpuscular Volume 79 fL (79-100) Mean Corpuscular Hemoglobin 26 pg (25-35) Mean Corpuscular Hemoglobin Concent 33 g/dL (31-37) Red Cell Distribution Width 17.0 % (11.5-14.5) Platelet Count 157 x10^3/uL (140-400) Neutrophils (%) (Auto) 74 % (31-73) Lymphocytes (%) (Auto) 11 % (24-48) Monocytes (%) (Auto) 12 % (0-9) Eosinophils (%) (Auto) 2 % (0-3) Basophils (%) (Auto) 1 % (0-3) Neutrophils # (Auto) 5.9 x10^3uL (1.8-7.7) Lymphocytes # (Auto) 0.8 x10^3/uL (1.0-4.8) Monocytes # (Auto) 0.9 x10^3/uL (0.0-1.1) Eosinophils # (Auto) 0.2 x10^3/uL (0.0-0.7) Basophils # (Auto) 0.1 x10^3/uL (0.0-0.2) Sodium Level 141 mmol/L (136-145) Potassium Level 3.8 mmol/L (3.5-5.1) Chloride Level 107 mmol/L (98-107) Carbon Dioxide Level 28 mmol/L (21-32) Anion Gap 6 (6-14) Blood Urea Nitrogen 6 mg/dL (8-26) Creatinine 0.8 mg/dL (0.7-1.3) Estimated GFR (Cockcroft-Gault) 106.5 Glucose Level 153 mg/dL (70-99) Calcium Level 8.2 mg/dL (8.5-10.1) Phosphorus Level 3.1 mg/dL (2.6-4.7) Magnesium Level 1.9 mg/dL (1.8-2.4) Triglycerides Level 151 mg/dL (0-150) Glucose (Fingerstick) 161 mg/dL (70-99) Medications Active Scripts Medications Dose Route/Sig Max Daily Dose Days Date Category Diazepam 5 Mg Tablet 5 Mg PO DAILY 03/05/18 Rx Proair Hfa Inhaler (Albuterol Sulfate) 8.5 Gm Hfa.aer.ad 1 Puff INH PRN Q4HRS PRN 03/02/18 Reported Duoneb 0.5-3(2.5) Mg/3 Ml (Albuterol/Ipratropium) 3 Ml Ampul.neb 3 Ml NEB Q2HR PRN 03/02/18 Reported Symbicort 160-4.5 Mcg Inhaler (Budesonide/Formoterol Fumarate) 10.2 Gm Hfa.aer.ad 2 Puff IH BID 08/13/16 Reported Prilosec Otc (Omeprazole Magnesium) 20 Mg Tablet.dr 1 Tab PO DAILY 04/30/16 Reported Theophylline (Theophylline Anhydrous) 400 Mg Tablet.er 300 Mg PO BID 08/20/13 Reported Impression . 1. Acute recurrent alcoholic pancreatitis. worsening by ct abdomen 2. New sepsis with a new fever and elevated white cell count. progression of pancreatitis any pancreatic abscess or necrotic pancreatitis. 3. Acute Respiratory failure due to above 4. Acute encephalopathy/delirium.now intubated 5. History of asthma. 6. Abnormal chest x-ray with new infiltrate/ RLL effusion, suspect aspiration 7. Acute hypoxic respiratory failure related to acute pancreatitis with/suspected acute lung injury. Plan . 1. Continue with present AC mode, 40% fio2 2. Monitor ABGs and chest x-rays closely. 3. Continue SEDATION 4. Watch for withdrawal symptoms 5. TPN 6. Follow ID recommendation. 7. Follow GI recommendations. 8. DVT and stress ulcer prophylaxis. KARLA LOVING MD Apr 01, 2018 11:04
[2018-04-01] MEDS: CHLORHEXIDINE 0.12% 15 ML MOUTHWASH. MM SCH ×2 (11:59→20:43)
--- NOTE | 2018-04-01 12:22 | PDOC ---
Objective: Objective: Intubated, sedated, on TPN. Significant NG output - RN says thick. Has IV PPI and octreotide. Stooled yesterday. Vital Signs: Vital Signs Date Time Temp Pulse Resp B/P (MAP) Pulse Ox O2 Delivery O2 Flow Rate FiO2 04/01/18 12:00 100 Ventilator 04/01/18 11:00 66 18 122/57 (78) 04/01/18 08:00 98.7 98.7 04/01/18 06:50 3.0 Labs: Laboratory Tests Test 04/01/18 06:05 04/01/18 08:17 04/01/18 11:59 White Blood Count 7.9 x10^3/uL Red Blood Count 3.09 x10^6/uL Hemoglobin 8.0 g/dL Hematocrit 24.4 % Mean Corpuscular Volume 79 fL Mean Corpuscular Hemoglobin 26 pg Mean Corpuscular Hemoglobin Concent 33 g/dL Red Cell Distribution Width 17.0 % Platelet Count 157 x10^3/uL Neutrophils (%) (Auto) 74 % Lymphocytes (%) (Auto) 11 % Monocytes (%) (Auto) 12 % Eosinophils (%) (Auto) 2 % Basophils (%) (Auto) 1 % Neutrophils # (Auto) 5.9 x10^3uL Lymphocytes # (Auto) 0.8 x10^3/uL Monocytes # (Auto) 0.9 x10^3/uL Eosinophils # (Auto) 0.2 x10^3/uL Basophils # (Auto) 0.1 x10^3/uL Sodium Level 141 mmol/L Potassium Level 3.8 mmol/L Chloride Level 107 mmol/L Carbon Dioxide Level 28 mmol/L Anion Gap 6 Blood Urea Nitrogen 6 mg/dL Creatinine 0.8 mg/dL Estimated GFR (Cockcroft-Gault) 106.5 Glucose Level 153 mg/dL Calcium Level 8.2 mg/dL Phosphorus Level 3.1 mg/dL Magnesium Level 1.9 mg/dL Triglycerides Level 151 mg/dL Glucose (Fingerstick) 161 mg/dL 153 mg/dL PE: GEN: intubated HEENT: NG output dark/bilious LUNGS: vent HEART: RRR ABD: quiet NEURO/PSYCH: sedated A/P: Alcoholic pancreatitis w/ withdrawal -- Continue same per GI as above. MESSI GORE Apr 01, 2018 12:22
[2018-04-01] MEDS: TPN PER PHARMACY MC PRN (13:03)
--- NOTE | 2018-04-01 13:41 | PDOC ---
PROGRESS NOTES Chief Complaint Chief Complaint acute Pancreatitis Alcohol abuse and withdrawal AMS metabolic encephalopathy with alcohol withdrawal Severe agitation with homocide ideation requiring sedation and intubation 03/31 acute hypoxic resp failure 8 h/o Asthma GERD HTN possible sepsis wo clear etiology morbid obesity leucocytosis hepatic lesions on CT plan: pulm, gi, ID consulted on 3 iv abx with ID repeat bcx, cxr, repeat abd CT showed worsening pancreatitis, lipase normal tho defer to GI to see if need another LIVER CT for the lesions sedated, intubated 03/31 change TPN with central line, dc ivf NPO given pancreatitis dvt, gi ppx History of Present Illness History of Present Illness Pt seen and examined in ICU Dw RN pt got very agitated later 03/31/19, trying to kill/hurt nurse, required intubation and sedation high fever since Friday, better fri. high WBC to 18 down to 8 c/o abd pain, with distention before intubation Vitals Vitals Vital Signs Date Time Temp Pulse Resp B/P (MAP) Pulse Ox O2 Delivery O2 Flow Rate FiO2 04/01/18 13:07 100 Ventilator 04/01/18 13:00 71 18 109/52 (71) 04/01/18 12:00 99.0 99.0 04/01/18 06:50 3.0 Physical Exam Physical Exam intubated, sedated Heent fixed pupils LUNGS: Breathing nonlabored CV: Regular ABD: Obese, moderately distended ,BS + : Kramer + EXT: No gross edema or cyanosis rt central line in place, clean Heart: Regular rate Lungs: Clear Abdomen: Soft, No masses Extremities: No cyanosis, No edema Skin: No rashes, No breakdown Labs LABS Laboratory Tests Test 04/01/18 06:05 04/01/18 08:17 04/01/18 11:59 White Blood Count 7.9 x10^3/uL (4.0-11.0) Red Blood Count 3.09 x10^6/uL (4.30-5.70) Hemoglobin 8.0 g/dL (13.0-17.5) Hematocrit 24.4 % (39.0-53.0) Mean Corpuscular Volume 79 fL (79-100) Mean Corpuscular Hemoglobin 26 pg (25-35) Mean Corpuscular Hemoglobin Concent 33 g/dL (31-37) Red Cell Distribution Width 17.0 % (11.5-14.5) Platelet Count 157 x10^3/uL (140-400) Neutrophils (%) (Auto) 74 % (31-73) Lymphocytes (%) (Auto) 11 % (24-48) Monocytes (%) (Auto) 12 % (0-9) Eosinophils (%) (Auto) 2 % (0-3) Basophils (%) (Auto) 1 % (0-3) Neutrophils # (Auto) 5.9 x10^3uL (1.8-7.7) Lymphocytes # (Auto) 0.8 x10^3/uL (1.0-4.8) Monocytes # (Auto) 0.9 x10^3/uL (0.0-1.1) Eosinophils # (Auto) 0.2 x10^3/uL (0.0-0.7) Basophils # (Auto) 0.1 x10^3/uL (0.0-0.2) Sodium Level 141 mmol/L (136-145) Potassium Level 3.8 mmol/L (3.5-5.1) Chloride Level 107 mmol/L (98-107) Carbon Dioxide Level 28 mmol/L (21-32) Anion Gap 6 (6-14) Blood Urea Nitrogen 6 mg/dL (8-26) Creatinine 0.8 mg/dL (0.7-1.3) Estimated GFR (Cockcroft-Gault) 106.5 Glucose Level 153 mg/dL (70-99) Calcium Level 8.2 mg/dL (8.5-10.1) Phosphorus Level 3.1 mg/dL (2.6-4.7) Magnesium Level 1.9 mg/dL (1.8-2.4) Triglycerides Level 151 mg/dL (0-150) Glucose (Fingerstick) 161 mg/dL (70-99) 153 mg/dL (70-99) Assessment and Plan Assessmemt and Plan Problems Medical Problems: (1) Alcoholic pancreatitis Status: Acute (2) ETOH abuse Status: Acute Comment Review of Relevant I have reviewed the following items wali (where applicable) has been applied. Labs Laboratory Tests Test 03/31/18 04:00 03/31/18 08:21 03/31/18 09:25 03/31/18 11:20 White Blood Count 18.2 x10^3/uL (4.0-11.0) Red Blood Count 3.66 x10^6/uL (4.30-5.70) Hemoglobin 9.7 g/dL (13.0-17.5) Hematocrit 28.7 % (39.0-53.0) Mean Corpuscular Volume 78 fL (79-100) Mean Corpuscular Hemoglobin 26 pg (25-35) Mean Corpuscular Hemoglobin Concent 34 g/dL (31-37) Red Cell Distribution Width 17.2 % (11.5-14.5) Platelet Count 151 x10^3/uL (140-400) Neutrophils (%) (Auto) 76 % (31-73) Lymphocytes (%) (Auto) 10 % (24-48) Monocytes (%) (Auto) 12 % (0-9) Eosinophils (%) (Auto) 2 % (0-3) Basophils (%) (Auto) 1 % (0-3) Neutrophils # (Auto) 13.7 x10^3uL (1.8-7.7) Lymphocytes # (Auto) 1.9 x10^3/uL (1.0-4.8) Monocytes # (Auto) 2.2 x10^3/uL (0.0-1.1) Eosinophils # (Auto) 0.3 x10^3/uL (0.0-0.7) Basophils # (Auto) 0.1 x10^3/uL (0.0-0.2) Sodium Level 142 mmol/L (136-145) Potassium Level 4.1 mmol/L (3.5-5.1) Chloride Level 108 mmol/L (98-107) Carbon Dioxide Level 25 mmol/L (21-32) Anion Gap 9 (6-14) Blood Urea Nitrogen 8 mg/dL (8-26) Creatinine 1.0 mg/dL (0.7-1.3) Estimated GFR (Cockcroft-Gault) 82.3 Glucose Level 110 mg/dL (70-99) Calcium Level 8.1 mg/dL (8.5-10.1) Phosphorus Level 3.3 mg/dL (2.6-4.7) Magnesium Level 1.8 mg/dL (1.8-2.4) Lipase 248 U/L (73-393) O2 Saturation 92 % (92-99) 99 % (92-99) Arterial Blood pH 7.41 (7.35-7.45) 7.39 (7.35-7.45) Arterial Blood pCO2 at Patient Temp 38 mmHg (35-46) 42 mmHg (35-46) Arterial Blood pO2 at Patient Temp 63 mmHg (75-108) 383 mmHg (75-108) Arterial Blood HCO3 23 mmol/L (21-28) 25 mmol/L (21-28) Arterial Blood Base Excess -1 mmol/L (-3-3) 0 mmol/L (-3-3) FiO2 32 100 Lactic Acid Level 0.7 mmol/L (0.4-2.0) Oxyhemoglobin 98.8 % Methemoglobin 0.3 % (0.0-1.9) Carbon Monoxide, Quantitative 0.3 % (0.0-1.9) Test 04/01/18 06:05 04/01/18 08:17 04/01/18 11:59 White Blood Count 7.9 x10^3/uL (4.0-11.0) Red Blood Count 3.09 x10^6/uL (4.30-5.70) Hemoglobin 8.0 g/dL (13.0-17.5) Hematocrit 24.4 % (39.0-53.0) Mean Corpuscular Volume 79 fL (79-100) Mean Corpuscular Hemoglobin 26 pg (25-35) Mean Corpuscular Hemoglobin Concent 33 g/dL (31-37) Red Cell Distribution Width 17.0 % (11.5-14.5) Platelet Count 157 x10^3/uL (140-400) Neutrophils (%) (Auto) 74 % (31-73) Lymphocytes (%) (Auto) 11 % (24-48) Monocytes (%) (Auto) 12 % (0-9) Eosinophils (%) (Auto) 2 % (0-3) Basophils (%) (Auto) 1 % (0-3) Neutrophils # (Auto) 5.9 x10^3uL (1.8-7.7) Lymphocytes # (Auto) 0.8 x10^3/uL (1.0-4.8) Monocytes # (Auto) 0.9 x10^3/uL (0.0-1.1) Eosinophils # (Auto) 0.2 x10^3/uL (0.0-0.7) Basophils # (Auto) 0.1 x10^3/uL (0.0-0.2) Sodium Level 141 mmol/L (136-145) Potassium Level 3.8 mmol/L (3.5-5.1) Chloride Level 107 mmol/L (98-107) Carbon Dioxide Level 28 mmol/L (21-32) Anion Gap 6 (6-14) Blood Urea Nitrogen 6 mg/dL (8-26) Creatinine 0.8 mg/dL (0.7-1.3) Estimated GFR (Cockcroft-Gault) 106.5 Glucose Level 153 mg/dL (70-99) Calcium Level 8.2 mg/dL (8.5-10.1) Phosphorus Level 3.1 mg/dL (2.6-4.7) Magnesium Level 1.9 mg/dL (1.8-2.4) Triglycerides Level 151 mg/dL (0-150) Glucose (Fingerstick) 161 mg/dL (70-99) 153 mg/dL (70-99) Laboratory Tests Test 04/01/18 06:05 04/01/18 08:17 04/01/18 11:59 White Blood Count 7.9 x10^3/uL (4.0-11.0) Red Blood Count 3.09 x10^6/uL (4.30-5.70) Hemoglobin 8.0 g/dL (13.0-17.5) Hematocrit 24.4 % (39.0-53.0) Mean Corpuscular Volume 79 fL (79-100) Mean Corpuscular Hemoglobin 26 pg (25-35) Mean Corpuscular Hemoglobin Concent 33 g/dL (31-37) Red Cell Distribution Width 17.0 % (11.5-14.5) Platelet Count 157 x10^3/uL (140-400) Neutrophils (%) (Auto) 74 % (31-73) Lymphocytes (%) (Auto) 11 % (24-48) Monocytes (%) (Auto) 12 % (0-9) Eosinophils (%) (Auto) 2 % (0-3) Basophils (%) (Auto) 1 % (0-3) Neutrophils # (Auto) 5.9 x10^3uL (1.8-7.7) Lymphocytes # (Auto) 0.8 x10^3/uL (1.0-4.8) Monocytes # (Auto) 0.9 x10^3/uL (0.0-1.1) Eosinophils # (Auto) 0.2 x10^3/uL (0.0-0.7) Basophils # (Auto) 0.1 x10^3/uL (0.0-0.2) Sodium Level 141 mmol/L (136-145) Potassium Level 3.8 mmol/L (3.5-5.1) Chloride Level 107 mmol/L (98-107) Carbon Dioxide Level 28 mmol/L (21-32) Anion Gap 6 (6-14) Blood Urea Nitrogen 6 mg/dL (8-26) Creatinine 0.8 mg/dL (0.7-1.3) Estimated GFR (Cockcroft-Gault) 106.5 Glucose Level 153 mg/dL (70-99) Calcium Level 8.2 mg/dL (8.5-10.1) Phosphorus Level 3.1 mg/dL (2.6-4.7) Magnesium Level 1.9 mg/dL (1.8-2.4) Triglycerides Level 151 mg/dL (0-150) Glucose (Fingerstick) 161 mg/dL (70-99) 153 mg/dL (70-99) Microbiology 03/31/18 Blood Culture - Preliminary, Resulted NO GROWTH AFTER 1 DAY Medications Current Medications Multivitamins 10 ml/Thiamine HCl 100 mg/Folic Acid 1 mg/Sodium Chloride 1,011.2 ml @ 1,000.088 mls/hr 1X ONCE IV Last administered on 03/26/18at 15:07; Start 03/26/18 at 14:00; Stop 03/26/18 at 15:00; Status DC Ondansetron HCl (Zofran) 4 mg 1X ONCE IV Last administered on 03/26/18at 14:13 ; Start 03/26/18 at 14:00; Stop 03/26/18 at 14:10; Status DC Pantoprazole Sodium (PROTONIX VIAL for IV PUSH) 40 mg 1X ONCE IVP Last administered on 03/26/18at 14:13; Start 03/26/18 at 14:00; Stop 03/26/18 at 14:10 ; Status DC Pantoprazole Sodium (PROTONIX VIAL for IV PUSH) 40 mg STK-MED ONCE IVP ; Start 03/26/18 at 14:10; Stop 03/26/18 at 14:11; Status DC Ondansetron HCl (Zofran) 4 mg STK-MED ONCE .ROUTE ; Start 03/26/18 at 14:10; Stop 03/26/18 at 14:11; Status DC Iohexol (Omnipaque 300 Mg/ml) 75 ml 1X ONCE IV Last administered on 03/26/18at 14:38; Start 03/26/18 at 14:45; Stop 03/26/18 at 14:46; Status DC Iohexol (Omnipaque 300 Mg/ml) 100 ml STK-MED ONCE .ROUTE ; Start 03/26/18 at 14: 38; Stop 03/26/18 at 14:39; Status DC Info (CONTRAST GIVEN -- Rx MONITORING) 1 each PRN DAILY PRN MC SEE COMMENTS; Start 03/26/18 at 14:45; Stop 03/28/18 at 14:44; Status DC Ondansetron HCl (Zofran) 4 mg 1X ONCE IV Last administered on 03/26/18at 15:08 ; Start 03/26/18 at 15:00; Stop 03/26/18 at 15:01; Status DC Morphine Sulfate (Morphine Sulfate) 5 mg 1X ONCE IV Last administered on at 15:09; Start 03/26/18 at 15:00; Stop 03/26/18 at 15:01; Status DC Ondansetron HCl (Zofran) 4 mg PRN Q8HRS PRN IV NAUSEA/VOMITING Last administered on 03/27/18at 12:22; Start 03/26/18 at 15:15; Stop 03/27/18 at 15:14 ; Status DC Morphine Sulfate (Morphine Sulfate) 4 mg PRN Q2HR PRN IV PAIN Last administered on 03/27/18at 15:12; Start 03/26/18 at 15:15; Stop 03/27/18 at 15:14 ; Status DC Multivitamins 10 ml/Thiamine HCl 100 mg/Folic Acid 1 mg/Sodium Chloride 1,011.2 ml @ 100 mls/ hr DAILY IV Last administered on 03/30/18at 07:52; Start at 16:00; Stop 03/30/18 at 19:07; Status DC Lorazepam (Ativan) 2 mg PRN Q1HR PRN IV For CIWA 8-14 Last administered on 03/26at 15:59; Start 03/26/18 at 15:15; Stop 03/26/18 at 16:43; Status DC Sodium Chloride 1,000 ml @ 125 mls/hr 1X ONCE IV Last administered on at 02:10; Start 03/26/18 at 15:15; Stop 03/26/18 at 23:14; Status DC Pantoprazole Sodium (PROTONIX VIAL for IV PUSH) 40 mg DAILYAC IVP Last administered on 03/30/18at 07:52; Start 03/27/18 at 07:30; Stop 03/30/18 at 10:52 ; Status DC Multivitamins 10 ml/Thiamine HCl 100 mg/Folic Acid 1 mg/Sodium Chloride 1,011.2 ml @ 100 mls/ hr DAILY IV ; Start 03/27/18 at 09:00; Stop 03/31/18 at 19:07; Status UNV Multivitamins (Thera M Plus) 1 tab DAILY PO ; Start 03/31/18 at 09:00; Stop at 14:18; Status DC Folic Acid (Folic Acid) 1 mg DAILY PO ; Start 03/31/18 at 09:00; Stop 03/31/18 at 14:18; Status DC Thiamine HCl 100 mg/Dextrose 51 ml @ 100 mls/hr DAILY IV ; Start 03/27/18 at 09 :00; Stop 03/31/18 at 09:31; Status UNV Lorazepam (Ativan) 2 mg Q6H PO Last administered on 03/26/18at 22:19; Start at 17:00; Stop 03/27/18 at 01:47; Status DC Lorazepam (Ativan) 4 mg PRN Q1HR PRN PO For CIWA 8-14; Start 03/26/18 at 16:45 Lorazepam (Ativan) 2 mg PRN Q1HR PRN IV For CIWA 8-14 Last administered on 04/01at 04:41; Start 03/26/18 at 16:45 Lorazepam (Ativan) 4 mg PRN Q1HR PRN IV For CIWA 15 or greater Last administered on 04/01/18 07:51; Start 03/26/18 at 16:45 Haloperidol Lactate (Haldol Inj) 5 mg PRN Q4HRS PRN IVP Hallucinatns,Confusn, Delirium Last administered on 03/31/18 05:20; Start 03/26/18 at 16:45 Diphenhydramine HCl (Benadryl) 25 mg PRN Q15MIN PRN IVP EPS symptoms 2'Haldol admin Last administered on 03/29/18at 08:25; Start 03/26/18 at 16:45 Clonidine HCl (Catapres) 0.1 mg PRN Q1HR PRN PO SBP > 180 or DBP > 100, MRX3 Last administered on 03/27/18 05:28; Start 03/26/18 at 16:45 Lorazepam (Ativan) 2 mg PRN Q15MIN PRN IV ; Start 03/26/18 at 16:45; Status UNV Lorazepam (Ativan) 4 mg PRN Q15MIN PRN IV ; Start 03/26/18 at 16:45; Status UNV Pantoprazole Sodium (PROTONIX VIAL for IV PUSH) 40 mg DAILYAC IVP ; Start at 07:30; Status UNV Enoxaparin Sodium (Lovenox 40mg Syringe) 40 mg Q24H SQ Last administered on at 21:42; Start 03/26/18 at 21:00 Albuterol Sulfate (Ventolin Neb Soln) 2.5 mg PRN Q2HRS PRN NEB SHORTNESS OF BREATH Last administered on 03/29/18 04:12; Start 03/26/18 at 17:00; Stop 03/30 at 13:29; Status DC Non-Formulary Medication (Albuterol Sulfate (Proair Hfa Inhaler)) 1 puff PRN Q4HRS PRN INH SHORTNESS OF BREATH; Start 03/26/18 at 16:45; Status UNV Non-Formulary Medication (Budesonide/ Formoterol Fumarate (Symbicort 160-4.5 Mcg Inhaler)) 2 puff BID IH ; Start 03/26/18 at 21:00; Status UNV Theophylline (Theodur) 300 mg BID PO Last administered on 03/30/18at 08:45; Start 03/26/18 at 21:00 Budesonide (Pulmicort) 0.5 mg RTBID NEB Last administered on 04/01/18at 07:51; Start 03/26/18 at 20:00 Albuterol Sulfate (Ventolin Neb Soln) 2.5 mg RTQID NEB Last administered on at 12:28; Start 03/26/18 at 20:00; Stop 03/30/18 at 13:24; Status DC Sodium Chloride 1,000 ml @ 1,000 mls/hr 1X ONCE IV Last administered on at 12:23; Start 03/27/18 at 12:15; Stop 03/27/18 at 13:14; Status DC Sodium Chloride 1,000 ml @ 1,000 mls/hr 1X ONCE IV Last administered on at 13:05; Start 03/27/18 at 12:15; Stop 03/27/18 at 13:14; Status DC Sodium Chloride 1,000 ml @ 1,000 mls/hr 1X ONCE IV Last administered on at 14:11; Start 03/27/18 at 12:15; Stop 03/27/18 at 13:14; Status DC Sodium Chloride 136 ml @ 500 mls/hr 1X ONCE IV Last administered on at 12:15; Start 03/27/18 at 12:15; Stop 03/27/18 at 12:31; Status DC Piperacillin Sod/ Tazobactam Sod 3.375 gm/Sodium Chloride 50 ml @ 100 mls/hr Q6HRS IV Last administered on 03/31/18at 12:16; Start 03/27/18 at 16:00; Stop at 13:38; Status DC Morphine Sulfate (Morphine Sulfate) 2 mg PRN Q2HR PRN IV PAIN Last administered on 03/31/18at 10:42; Start 03/27/18 at 16:45 Ondansetron HCl (Zofran) 4 mg PRN Q6HRS PRN IV NAUSEA/VOMITING Last administered on 03/28/18at 02:34; Start 03/27/18 at 16:45 Sodium Chloride 1,000 ml @ 125 mls/hr Q8H IV Last administered on 03/29/18at 10 :14; Start 03/27/18 at 17:45; Stop 03/29/18 at 14:21; Status DC Diazepam (Valium) 5 mg PRN Q2HR PRN PO Agitation/Alcohol withdraw Last administered on 03/29/18at 02:47; Start 03/29/18 at 01:45 Belladonna Alkaloids/Opium (B & O) 1 supp PRN Q12HR PRN MI BLADDER SPASM Last administered on 03/29/18at 02:58; Start 03/29/18 at 01:45 Dexmedetomidine HCl 200 mcg/ Sodium Chloride 50 ml @ 0 mls/hr CONT PRN IV PER PROTOCOL Last administered on 03/31/18at 13:09; Start 03/29/18 at 08:30 Sodium Chloride 500 ml @ 500 mls/hr 1X PRN PRN IV SEE COMMENTS; Start at 08:30 Atropine Sulfate (ATROPINE 0.5mg SYRINGE) 0.5 mg PRN Q5MIN PRN IV SEE COMMENTS ; Start 03/29/18 at 08:30 Potassium Chloride (Klor-Con) 40 meq 1X ONCE PO Last administered on at 14:25; Start 03/29/18 at 13:15; Stop 03/29/18 at 13:16; Status DC Potassium Chloride/Sodium Chloride 1,000 ml @ 75 mls/hr [id number] IV Last administered on 04/01/18at 08:47; Start 03/29/18 at 14:15 Pantoprazole Sodium (Protonix) 40 mg DAILYAC PO ; Start 03/31/18 at 07:30; Stop 03/31/18 at 11:32; Status DC Albuterol Sulfate (Ventolin Neb Soln) 2.5 mg PRN Q4HRS PRN NEB WHEEZING; Start 03/30/18 at 13:30 Micafungin Sodium 100 mg/Dextrose 100 ml @ 100 mls/hr Q24H IV Last administered on 03/31/18at 15:49; Start 03/30/18 at 15:00 Linezolid/Dextrose 300 ml @ 300 mls/hr Q12HR IV Last administered on at 09:40; Start 03/30/18 at 14:00 Olanzapine (ZyPREXA IM) 10 mg PRN Q8HRS PRN IM ANXIETY / AGITATION; Start 03/30 at 14:00 Labetalol HCl (Normodyne Iv Push) 20 mg PRN Q2HR PRN IVP GIVE FOR SBP > 180 DBP >110 Last administered on 03/31/18at 10:02; Start 03/30/18 at 17:15 Acetaminophen (Tylenol Supp) 650 mg PRN Q6HRS PRN MI MILD PAIN / TEMP Last administered on 03/31/18at 15:02; Start 03/30/18 at 17:15 Iohexol (Omnipaque 300 Mg/ml) 75 ml 1X ONCE IV ; Start 03/31/18 at 09:15; Stop 03/31/18 at 09:16; Status DC Info (CONTRAST GIVEN -- Rx MONITORING) 1 each PRN DAILY PRN MC SEE COMMENTS; Start 03/31/18 at 09:15; Stop 04/02/18 at 09:14 Iohexol (Omnipaque 300 Mg/ml) 75 ml 1X ONCE IV Last administered on 03/31/18at 10:29; Start 03/31/18 at 10:00; Stop 03/31/18 at 10:04; Status DC Fentanyl Citrate 30 ml @ 0 mls/hr CONT PRN IV PER PROTOCOL Last administered on 04/01/18at 06:50; Start 03/31/18 at 11:00 Lorazepam (Ativan) 2 mg STK-MED ONCE .ROUTE ; Start 03/31/18 at 11:02; Stop at 11:03; Status DC Vecuronium Seth (Norcuron Bolus) 10 mg STK-MED ONCE IV ; Start 03/31/18 at 11 :05; Stop 03/31/18 at 11:06; Status DC Propofol 100 ml @ As Directed STK-MED ONCE IV ; Start 03/31/18 at 11:08; Stop 03/31/18 at 11:09; Status DC Vecuronium Seth (Norcuron Bolus) 10 mg STK-MED ONCE IV ; Start 03/31/18 at 11 :08; Stop 03/31/18 at 11:10; Status DC Succinylcholine Chloride (Anectine) 200 mg 1X ONCE IV ; Start 03/31/18 at 11:30 ; Stop 03/31/18 at 11:31; Status DC Propofol 100 ml @ 0 mls/hr CONT PRN IV PER PROTOCOL Last administered on 13:03; Start 03/31/18 at 11:30 Chlorhexidine Gluconate (Peridex) 15 ml BID MM Last administered on 04/01/18at 11:59; Start 03/31/18 at 21:00 Pantoprazole Sodium (PROTONIX VIAL for IV PUSH) 40 mg DAILYAC IVP Last administered on 04/01/18 07:42; Start 04/01/18 at 07:30 Vecuronium Seth (Norcuron Bolus) 10 mg 1X ONCE IV Last administered on 03/31at 11:58; Start 03/31/18 at 12:00; Stop 03/31/18 at 12:01; Status DC Meropenem 500 mg/ Sodium Chloride 50 ml @ 100 mls/hr Q6HRS IV Last administered on 04/01/18 11:45; Start 03/31/18 at 18:00 Info (Tpn Per Pharmacy) 1 each PRN DAILY PRN MC SEE COMMENTS Last administered on 04/01/18at 13:03; Start 03/31/18 at 14:00 Sodium Chloride 45 meq/Sodium Acetate 45 meq/ Potassium Chloride 50 meq/ Potassium Phosphate 13.6 mmol/Magnesium Sulfate 10 meq/ Calcium Gluconate 10 meq / Multivitamins 10 ml/Chromium/ Copper/Manganese/ Seleni/Zn 1 ml/ Folic Acid 1 mg/ Thiamine HCl 100 mg/Total Donna... 1,512 ml @ 63 mls/hr TPN CONT IV Last administered on 03/31/18at 21:41; Start 03/31/18 at 22:00; Stop 04/01/18 at 21:59 Octreotide Acetate (SandoSTATIN) 100 mcg Q8HRS SQ Last administered on at 06:01; Start 03/31/18 at 15:30 Vecuronium Seth (Norcuron Bolus) 10 mg STK-MED ONCE IV ; Start 03/31/18 at 11 :10; Stop 04/01/18 at 09:10; Status DC Lorazepam (Ativan) 2 mg STK-MED ONCE .ROUTE ; Start 03/31/18 at 11:10; Stop at 09:10; Status DC Active Scripts Active Diazepam 5 Mg Tablet 5 Mg PO DAILY Reported Proair Hfa Inhaler (Albuterol Sulfate) 8.5 Gm Hfa.aer.ad 1 Puff INH PRN Q4HRS PRN Duoneb 0.5-3(2.5) Mg/3 Ml (Albuterol/Ipratropium) 3 Ml Ampul.neb 3 Ml NEB Q2HR PRN Symbicort 160-4.5 Mcg Inhaler (Budesonide/Formoterol Fumarate) 10.2 Gm Hfa.aer.ad 2 Puff IH BID Prilosec Otc (Omeprazole Magnesium) 20 Mg Tablet.dr 1 Tab PO DAILY Theophylline (Theophylline Anhydrous) 400 Mg Tablet.er 300 Mg PO BID Vitals/I & O Vital Sign - Last 24 Hours 03/31/18 03/31/18 03/31/18 03/31/18 14:00 15:00 16:00 16:00 Temp 101.4 101.4 Pulse 80 80 74 Resp 18 18 18 B/P (MAP) 159/88 (111) 165/90 (115) 168/94 (118) Pulse Ox 100 100 100 O2 Delivery Ventilator Ventilator Ventilator Mechanical Ventilator 03/31/18 03/31/18 03/31/18 03/31/18 17:00 17:01 18:00 19:00 Pulse 80 73 80 Resp 18 18 18 B/P (MAP) 156/75 (102) 137/73 (94) 141/78 (99) Pulse Ox 100 100 100 100 O2 Delivery Ventilator Ventilator Ventilator Ventilator 03/31/18 03/31/18 03/31/18 03/31/18 19:28 20:00 20:00 21:00 Temp 98.7 98.7 Pulse 80 77 Resp 18 18 B/P (MAP) 133/69 (90) 120/59 (79) Pulse Ox 100 100 100 O2 Delivery Ventilator Ventilator Mechanical Ventilator Ventilator 03/31/18 03/31/18 03/31/18 03/31/18 21:05 22:00 23:00 23:15 Pulse 71 71 Resp 18 18 B/P (MAP) 130/73 (92) 139/73 (95) Pulse Ox 100 100 100 100 O2 Delivery Ventilator Ventilator Ventilator Ventilator 04/01/18 04/01/18 04/01/18 04/01/18 00:00 00:00 01:00 01:00 Temp 99.1 99.1 Pulse 74 73 Resp 18 18 B/P (MAP) 119/65 (83) 112/60 (77) Pulse Ox 100 100 100 O2 Delivery Mechanical Ventilator Ventilator Ventilator Ventilator 04/01/18 04/01/18 04/01/18 04/01/18 02:00 03:00 03:04 03:51 Pulse 75 70 Resp 18 18 B/P (MAP) 102/52 (69) 112/54 (73) Pulse Ox 100 100 100 O2 Delivery Ventilator Ventilator Ventilator Mechanical Ventilator 04/01/18 04/01/18 04/01/18 04/01/18 04:00 05:00 05:35 06:00 Temp 99.8 99.8 Pulse 74 71 64 Resp 18 17 17 B/P (MAP) 106/56 (73) 106/53 (70) 110/56 (74) Pulse Ox 100 100 100 98 O2 Delivery Ventilator Ventilator Ventilator Ventilator 04/01/18 04/01/18 04/01/18 04/01/18 06:50 07:00 07:20 07:30 Pulse 68 Resp 18 17 18 B/P (MAP) 136/77 (96) Pulse Ox 98 100 100 O2 Delivery Ventilator Ventilator Ventilator Mechanical Ventilator O2 Flow Rate 3.0 04/01/18 04/01/18 04/01/18 04/01/18 07:52 08:00 09:00 09:29 Temp 98.7 98.7 Pulse 78 74 Resp 18 17 B/P (MAP) 155/78 (103) 132/67 (88) Pulse Ox 100 98 100 100 O2 Delivery Ventilator Ventilator Ventilator Ventilator 04/01/18 04/01/18 04/01/18 04/01/18 10:00 11:00 12:00 12:00 Temp 99.0 99.0 Pulse 71 66 70 Resp 18 18 24 B/P (MAP) 135/65 (88) 122/57 (78) 127/57 (80) Pulse Ox 100 100 100 100 O2 Delivery Ventilator Ventilator Ventilator Ventilator 04/01/18 04/01/18 04/01/18 12:00 13:00 13:07 Pulse 71 Resp 18 B/P (MAP) 109/52 (71) Pulse Ox 98 100 O2 Delivery Mechanical Ventilator Ventilator Ventilator Intake and Output 03/31/18 03/31/18 04/01/18 15:00 23:00 07:00 Intake Total 618 ml 1207.76 ml 1790 ml Output Total 1075 ml 1035 ml 675 ml Balance -457 ml 172.76 ml 1115 ml BIGG NICHOLE MD Apr 01, 2018 13:41
[2018-04-01] MEDS: MICAFUNGIN 100 MG in IV DEXTROSE 5% 100ML 100 ML IV SCH (14:33)
[2018-04-01 15:08] LABS: BASE EXCESS ABG 2 mmol/L (-3-3); HCO3 ABG 26 mmol/L (21-28); PCO2 ABG 41 mmHg (35-46); PO2 ABG 117 mmHg (75-108); SAT O2 ABG 98 % (92-99)
[2018-04-01 15:09] LABS: FIO2 ABG 40
[2018-04-01] MEDS: ENOXAPARIN 40 MG/0.4 ML SYRINGE. SQ SCH (20:40)
[2018-04-01] MEDS ORDERED: TOTAL PARENTERAL NUTRITION IV SCH ×12 (22:00)
[2018-04-01] MEDS ORDERED: DEXTROSE 70% IV SCH ×12 (22:00)
[2018-04-01] MEDS ORDERED: [UNRECOGNIZED DRUG - OTHER] IV SCH ×12 (22:00)
[2018-04-01] MEDS ORDERED: AMINO ACIDS IV SCH ×12 (22:00)
[2018-04-02] VITALS (23 sets, daily range): BP systolic 109–160; BP diastolic 59–92
--- NOTE | 2018-04-02 02:41 | RAD ---
EXAM: CHEST 1 VIEW History: ET tube placement COMPARISON: 04/01/2018 TECHNIQUE: Single portable radiograph of the chest FINDINGS: The ET tube, feeding tube, right-sided internal jugular line are unchanged. Bilateral pleural effusions with prominent appearing bilateral interstitial lung markings likely congestive changes similar to prior exam. Bibasilar lung airspace opacities unchanged. Impression: 1. Lines and tubes unchanged. 2. Bilateral pleural effusions with congestive changes and bibasal infiltrates are similar to prior exam. Electronically signed by: Kosta Hernandez MD (04/02/2018 2:37 AM) [id number]
[2018-04-02] MEDS: PROPOFOL 100 ML IV PRN ×7 (03:13→23:26)
[2018-04-02] MEDS: MEROPENEM 500 MG in IV NORMAL SALINE 50ML 50 ML IV SCH ×4 (05:49→23:25)
[2018-04-02] MEDS: OCTREOTIDE 100 MCG/ML VIAL SQ SCH ×3 (05:49→22:18)
[2018-04-02 06:19] LABS: BASO % 0 % (0-3); EOS # 0.2 x10^3/uL (0.0-0.7); EOS % 3 % (0-3); HEMATOCRIT 23.5 % (39.0-53.0); HEMOGLOBIN 7.7 g/dL (13.0-17.5); LYMPH % 15 % (24-48); MEAN CORPUSCULAR HEMOGLOBIN 26 pg (25-35); MEAN CORPUSCULAR HGB CONC 33 g/dL (31-37); MEAN CORPUSCULAR VOLUME 79 fL (79-100); MONO # 0.8 x10^3/uL (0.0-1.1); MONO % 11 % (0-9); NEUT % 71 % (31-73); PLATELET COUNT 178 x10^3/uL (140-400); RED BLOOD COUNT 2.98 x10^6/uL (4.30-5.70); RED CELL DISTRIBUTION WIDTH 17.4 % (11.5-14.5)
[2018-04-02 06:20] LABS: CALCIUM 8.2 mg/dL (8.5-10.1); CREATININE 0.7 mg/dL (0.7-1.3); GFR 124.3; MAGNESIUM 1.9 mg/dL (1.8-2.4); PHOSPHORUS 3.6 mg/dL (2.6-4.7); POTASSIUM 3.8 mmol/L (3.5-5.1)
[2018-04-02] MEDS: CHLORHEXIDINE 0.12% 15 ML MOUTHWASH. MM SCH ×2 (07:55→19:32)
[2018-04-02] MEDS: PANTOPRAZOLE IV PUSH 40 MG VIAL. IVP SCH (07:55)
--- NOTE | 2018-04-02 07:57 | PDOC ---
Infectious Disease Note Subjective: Subjective Pt remains sedated, intubated on TPN on propofol, ativan and fentanyl opens eyes comfortable d/w RN ROS: ROS d/w RN Vital Signs: Vital Signs Vital Signs Date Time Temp Pulse Resp B/P (MAP) Pulse Ox O2 Delivery O2 Flow Rate FiO2 04/02/18 06:00 56 18 147/72 (97) 100 Ventilator 04/02/18 04:00 99.8 99.8 04/02/18 01:38 3.0 Physical Exam: PHYSICAL EXAM intubated, sedated Heent fixed pupils,opens eyes intermitently LUNGS: Breathing nonlabored CV: Regular ABD: Obese, moderately distended ,BS + : Kramer + EXT:edema +, no cyanosis rt central line in place, clean LUE PICC line looks ok Medications: Inpatient Meds: Current Medications Medications (Trade) Dose Ordered Sig/Wil Start Time Stop Time Status Last Admin Dose Admin Acetaminophen (Tylenol Supp) 650 mg PRN Q6HRS PRN 03/30/18 17:15 03/31/18 15:02 Albuterol Sulfate (Ventolin Neb Soln) 2.5 mg PRN Q4HRS PRN 03/30/18 13:30 Atropine Sulfate (ATROPINE 0.5mg SYRINGE) 0.5 mg PRN Q5MIN PRN 03/29/18 08:30 Belladonna Alkaloids/Opium (B & O) 1 supp PRN Q12HR PRN 03/29/18 01:45 03/29/18 02:58 Budesonide (Pulmicort) 0.5 mg RTBID 03/26/18 20:00 04/01/18 20:06 Chlorhexidine Gluconate (Peridex) 15 ml BID 03/31/18 21:00 04/01/18 20:43 Clonidine HCl (Catapres) 0.1 mg PRN Q1HR PRN 03/26/18 16:45 03/27/18 05:28 Dexmedetomidine HCl 200 mcg/ Sodium Chloride 50 ml @ 0 mls/hr CONT PRN 03/29/18 08:30 03/31/18 13:09 Diazepam (Valium) 5 mg PRN Q2HR PRN 03/29/18 01:45 03/29/18 02:47 Diphenhydramine HCl (Benadryl) 25 mg PRN Q15MIN PRN 03/26/18 16:45 03/29/18 08:25 Enoxaparin Sodium (Lovenox 40mg Syringe) 40 mg Q24H 03/26/18 21:00 04/01/18 20:40 Fentanyl Citrate 30 ml @ 0 mls/hr CONT PRN 03/31/18 11:00 04/02/18 01:08 Folic Acid (Folic Acid) 1 mg DAILY 03/31/18 09:00 03/31/18 14:18 DC Haloperidol Lactate (Haldol Inj) 5 mg PRN Q4HRS PRN 03/26/18 16:45 03/31/18 05:20 Info (CONTRAST GIVEN -- Rx MONITORING) 1 each PRN DAILY PRN 03/31/18 09:15 04/02/18 09:14 Info (Tpn Per Pharmacy) 1 each PRN DAILY PRN 03/31/18 14:00 04/01/18 13:03 Iohexol (Omnipaque 300 Mg/ml) 75 ml 1X ONCE 03/31/18 10:00 03/31/18 10:04 DC 03/31/18 10:29 Labetalol HCl (Normodyne Iv Push) 20 mg PRN Q2HR PRN 03/30/18 17:15 03/31/18 10:02 Linezolid/Dextrose 300 ml @ 300 mls/hr Q12HR 03/30/18 14:00 04/01/18 20:41 Lorazepam (Ativan) 2 mg STK-MED ONCE 03/31/18 11:10 04/01/18 09:10 DC Meropenem 500 mg/ Sodium Chloride 50 ml @ 100 mls/hr Q6HRS 03/31/18 18:00 04/02/18 05:49 Micafungin Sodium 100 mg/Dextrose 100 ml @ 100 mls/hr Q24H 03/30/18 15:00 04/01/18 14:33 Morphine Sulfate (Morphine Sulfate) 2 mg PRN Q2HR PRN 03/27/18 16:45 03/31/18 10:42 Multivitamins (Thera M Plus) 1 tab DAILY 03/31/18 09:00 03/31/18 14:18 DC Multivitamins 10 ml/Thiamine HCl 100 mg/Folic Acid 1 mg/Sodium Chloride 1,011.2 ml @ 100 mls/ hr DAILY 03/27/18 09:00 03/31/18 19:07 UNV Non-Formulary Medication (Albuterol Sulfate (Proair Hfa Inhaler)) 1 puff PRN Q4HRS PRN 03/26/18 16:45 UNV Non-Formulary Medication (Budesonide/ Formoterol Fumarate (Symbicort 160-4.5 Mcg Inhaler)) 2 puff BID 03/26/18 21:00 UNV Octreotide Acetate (SandoSTATIN) 100 mcg Q8HRS 03/31/18 15:30 04/02/18 05:49 Olanzapine (ZyPREXA IM) 10 mg PRN Q8HRS PRN 03/30/18 14:00 Ondansetron HCl (Zofran) 4 mg PRN Q6HRS PRN 03/27/18 16:45 03/28/18 02:34 Pantoprazole Sodium (PROTONIX VIAL for IV PUSH) 40 mg DAILYAC 04/01/18 07:30 04/01/18 07:42 Pantoprazole Sodium (Protonix) 40 mg DAILYAC 03/31/18 07:30 03/31/18 11:32 DC Piperacillin Sod/ Tazobactam Sod 3.375 gm/Sodium Chloride 50 ml @ 100 mls/hr Q6HRS 03/27/18 16:00 03/31/18 13:38 DC 03/31/18 12:16 Potassium Chloride/Sodium Chloride 1,000 ml @ 75 mls/hr [id number] 03/29/18 14:15 04/01/18 13:39 DC 04/01/18 08:47 Potassium Chloride (Klor-Con) 40 meq 1X ONCE 03/29/18 13:15 03/29/18 13:16 DC 03/29/18 14:25 Propofol 100 ml @ 0 mls/hr CONT PRN 03/31/18 11:30 04/02/18 05:50 Sodium Chloride 45 meq/Sodium Acetate 45 meq/ Potassium Chloride 50 meq/ Potassium Phosphate 13.6 mmol/Magnesium Sulfate 10 meq/ Calcium Gluconate 10 meq/ Multivitamins 10 ml/Chromium/ Copper/Manganese/ Seleni/Zn 1 ml/ Folic Acid 1 mg/ Thiamine HCl 100 mg/Total Donna... 1,512 ml @ 63 mls/hr TPN CONT 03/31/18 22:00 04/01/18 21:59 DC 03/31/18 21:41 Sodium Chloride 45 meq/Sodium Acetate 45 meq/ Potassium Chloride 70 meq/ Potassium Phosphate 13.6 mmol/Magnesium Sulfate 10 meq/ Calcium Gluconate 10 meq/ Multivitamins 10 ml/Chromium/ Copper/Manganese/ Seleni/Zn 1 ml/ Folic Acid 1 mg/ Thiamine HCl 100 mg/Total Donna... 1,512 ml @ 63 mls/hr TPN CONT 04/01/18 22:00 04/02/18 21:59 04/01/18 22:35 Succinylcholine Chloride (Anectine) 200 mg 1X ONCE 03/31/18 11:30 03/31/18 11:31 DC Theophylline (Theodur) 300 mg BID 03/26/18 21:00 03/30/18 08:45 Thiamine HCl 100 mg/Dextrose 51 ml @ 100 mls/hr DAILY 03/27/18 09:00 03/31/18 09:31 UNV Vecuronium [place] (Norcuron Bolus) 10 mg STK-MED ONCE 03/31/18 11:10 04/01/18 09:10 DC Labs: Lab Laboratory Tests Test 04/01/18 08:00 04/01/18 08:17 04/01/18 11:59 04/01/18 17:35 O2 Saturation 98 % (92-99) Arterial Blood pH 7.43 (7.35-7.45) Arterial Blood pCO2 at Patient Temp 41 mmHg (35-46) Arterial Blood pO2 at Patient Temp 117 mmHg (75-108) Arterial Blood HCO3 26 mmol/L (21-28) Arterial Blood Base Excess 2 mmol/L (-3-3) FiO2 40 Glucose (Fingerstick) 161 mg/dL (70-99) 153 mg/dL (70-99) 150 mg/dL (70-99) Test 04/01/18 23:56 04/02/18 05:46 04/02/18 05:50 Glucose (Fingerstick) 133 mg/dL (70-99) 118 mg/dL (70-99) White Blood Count 7.0 x10^3/uL (4.0-11.0) Red Blood Count 2.98 x10^6/uL (4.30-5.70) Hemoglobin 7.7 g/dL (13.0-17.5) Hematocrit 23.5 % (39.0-53.0) Mean Corpuscular Volume 79 fL (79-100) Mean Corpuscular Hemoglobin 26 pg (25-35) Mean Corpuscular Hemoglobin Concent 33 g/dL (31-37) Red Cell Distribution Width 17.4 % (11.5-14.5) Platelet Count 178 x10^3/uL (140-400) Neutrophils (%) (Auto) 71 % (31-73) Lymphocytes (%) (Auto) 15 % (24-48) Monocytes (%) (Auto) 11 % (0-9) Eosinophils (%) (Auto) 3 % (0-3) Basophils (%) (Auto) 0 % (0-3) Neutrophils # (Auto) 5.0 x10^3uL (1.8-7.7) Lymphocytes # (Auto) 1.0 x10^3/uL (1.0-4.8) Monocytes # (Auto) 0.8 x10^3/uL (0.0-1.1) Eosinophils # (Auto) 0.2 x10^3/uL (0.0-0.7) Basophils # (Auto) 0.0 x10^3/uL (0.0-0.2) Sodium Level 143 mmol/L (136-145) Potassium Level 3.8 mmol/L (3.5-5.1) Chloride Level 108 mmol/L (98-107) Carbon Dioxide Level 31 mmol/L (21-32) Anion Gap 4 (6-14) Blood Urea Nitrogen 8 mg/dL (8-26) Creatinine 0.7 mg/dL (0.7-1.3) Estimated GFR (Cockcroft-Gault) 124.3 Glucose Level 134 mg/dL (70-99) Calcium Level 8.2 mg/dL (8.5-10.1) Phosphorus Level 3.6 mg/dL (2.6-4.7) Magnesium Level 1.9 mg/dL (1.8-2.4) Objective: Assessment: Fever pattern improving Leukocytosis resolved, ? reactive vs other Pancreatitis,with worsening changes on ct Encephalopathy, likely medication related ZAIRA - improved Alcoholism with DTs Hypertension Lung infiltrates likely pulm venous congestion Plan: Plan of Care cont merrem; micafungin and linezolid ( 03/30) BC NGTD GI following Withdrawal precautions Monitor RUE edema closely ON TPN D/W EDIE KNIGHT MD Apr 02, 2018 07:56
[2018-04-02] MEDS: BUDESONIDE 0.5 MG/2 ML NEBU. NEB SCH ×2 (08:12→19:44)
--- NOTE | 2018-04-02 09:07 | PDOC ---
Objective: Objective: Reviewed w/ RN - lots of OG output. Father has cancer, is at [facility] w/ ~1 month to live, mother had been buying alcohol for him, has a teenage daughter. Vital Signs: Vital Signs Date Time Temp Pulse Resp B/P (MAP) Pulse Ox O2 Delivery O2 Flow Rate FiO2 04/02/18 08:13 100 Ventilator 04/02/18 08:00 80 22 160/64 (96) 04/02/18 07:00 99.2 99.2 04/02/18 01:38 3.0 Labs: Laboratory Tests Test 04/01/18 11:59 04/01/18 17:35 04/01/18 23:56 04/02/18 05:46 Glucose (Fingerstick) 153 mg/dL 150 mg/dL 133 mg/dL 118 mg/dL Test 04/02/18 05:50 White Blood Count 7.0 x10^3/uL Red Blood Count 2.98 x10^6/uL Hemoglobin 7.7 g/dL Hematocrit 23.5 % Mean Corpuscular Volume 79 fL Mean Corpuscular Hemoglobin 26 pg Mean Corpuscular Hemoglobin Concent 33 g/dL Red Cell Distribution Width 17.4 % Platelet Count 178 x10^3/uL Neutrophils (%) (Auto) 71 % Lymphocytes (%) (Auto) 15 % Monocytes (%) (Auto) 11 % Eosinophils (%) (Auto) 3 % Basophils (%) (Auto) 0 % Neutrophils # (Auto) 5.0 x10^3uL Lymphocytes # (Auto) 1.0 x10^3/uL Monocytes # (Auto) 0.8 x10^3/uL Eosinophils # (Auto) 0.2 x10^3/uL Basophils # (Auto) 0.0 x10^3/uL Sodium Level 143 mmol/L Potassium Level 3.8 mmol/L Chloride Level 108 mmol/L Carbon Dioxide Level 31 mmol/L Anion Gap 4 Blood Urea Nitrogen 8 mg/dL Creatinine 0.7 mg/dL Estimated GFR (Cockcroft-Gault) 124.3 Glucose Level 134 mg/dL Calcium Level 8.2 mg/dL Phosphorus Level 3.6 mg/dL Magnesium Level 1.9 mg/dL Imaging: CXR 04/02 Impression: 1. Lines and tubes unchanged. 2. Bilateral pleural effusions with congestive changes and bibasal infiltrates are similar to prior exam. PE: GEN: intubated HEENT: OG bilious LUNGS: vent HEART: RRR ABD: quiet NEURO/PSYCH: has sedation but is stirring A/P: Alcoholic pancreatitis, withdrawal - intubated, sedated, IV atbx -- On TPN and octreotide. Initial CT on 03/26, interval CT worse on 03/31. Continue same per GI. MESSI GORE Apr 02, 2018 09:07
[2018-04-02] MEDS ORDERED: FUROSEMIDE 20 MG/2 ML VIAL. IVP ONE (09:30)
--- NOTE | 2018-04-02 11:01 | PDOC ---
PULMONARY PROGRESS NOTES Subjective intubated 03/31 was very combative copious ET secretions Vitals Vital Signs Date Time Temp Pulse Resp B/P (MAP) Pulse Ox O2 Delivery O2 Flow Rate FiO2 04/02/18 10:00 87 25 151/85 (107) 100 Ventilator 04/02/18 07:00 99.2 99.2 04/02/18 01:38 3.0 Lungs: Other (coarse bs) Cardiovascular: S1 Abdomen: Soft Extremities: Other (1+edema) Skin: Warm Labs Laboratory Tests Test 03/31/18 11:20 04/01/18 06:05 04/01/18 08:00 04/01/18 08:17 O2 Saturation 99 % (92-99) 98 % (92-99) Arterial Blood pH 7.39 (7.35-7.45) 7.43 (7.35-7.45) Arterial Blood pCO2 at Patient Temp 42 mmHg (35-46) 41 mmHg (35-46) Arterial Blood pO2 at Patient Temp 383 mmHg (75-108) 117 mmHg (75-108) Arterial Blood HCO3 25 mmol/L (21-28) 26 mmol/L (21-28) Arterial Blood Base Excess 0 mmol/L (-3-3) 2 mmol/L (-3-3) Oxyhemoglobin 98.8 % Methemoglobin 0.3 % (0.0-1.9) Carbon Monoxide, Quantitative 0.3 % (0.0-1.9) FiO2 100 40 White Blood Count 7.9 x10^3/uL (4.0-11.0) Red Blood Count 3.09 x10^6/uL (4.30-5.70) Hemoglobin 8.0 g/dL (13.0-17.5) Hematocrit 24.4 % (39.0-53.0) Mean Corpuscular Volume 79 fL (79-100) Mean Corpuscular Hemoglobin 26 pg (25-35) Mean Corpuscular Hemoglobin Concent 33 g/dL (31-37) Red Cell Distribution Width 17.0 % (11.5-14.5) Platelet Count 157 x10^3/uL (140-400) Neutrophils (%) (Auto) 74 % (31-73) Lymphocytes (%) (Auto) 11 % (24-48) Monocytes (%) (Auto) 12 % (0-9) Eosinophils (%) (Auto) 2 % (0-3) Basophils (%) (Auto) 1 % (0-3) Neutrophils # (Auto) 5.9 x10^3uL (1.8-7.7) Lymphocytes # (Auto) 0.8 x10^3/uL (1.0-4.8) Monocytes # (Auto) 0.9 x10^3/uL (0.0-1.1) Eosinophils # (Auto) 0.2 x10^3/uL (0.0-0.7) Basophils # (Auto) 0.1 x10^3/uL (0.0-0.2) Sodium Level 141 mmol/L (136-145) Potassium Level 3.8 mmol/L (3.5-5.1) Chloride Level 107 mmol/L (98-107) Carbon Dioxide Level 28 mmol/L (21-32) Anion Gap 6 (6-14) Blood Urea Nitrogen 6 mg/dL (8-26) Creatinine 0.8 mg/dL (0.7-1.3) Estimated GFR (Cockcroft-Gault) 106.5 Glucose Level 153 mg/dL (70-99) Calcium Level 8.2 mg/dL (8.5-10.1) Phosphorus Level 3.1 mg/dL (2.6-4.7) Magnesium Level 1.9 mg/dL (1.8-2.4) Triglycerides Level 151 mg/dL (0-150) Glucose (Fingerstick) 161 mg/dL (70-99) Test 04/01/18 11:59 04/01/18 17:35 04/01/18 23:56 04/02/18 05:46 Glucose (Fingerstick) 153 mg/dL (70-99) 150 mg/dL (70-99) 133 mg/dL (70-99) 118 mg/dL (70-99) Test 04/02/18 05:50 White Blood Count 7.0 x10^3/uL (4.0-11.0) Red Blood Count 2.98 x10^6/uL (4.30-5.70) Hemoglobin 7.7 g/dL (13.0-17.5) Hematocrit 23.5 % (39.0-53.0) Mean Corpuscular Volume 79 fL (79-100) Mean Corpuscular Hemoglobin 26 pg (25-35) Mean Corpuscular Hemoglobin Concent 33 g/dL (31-37) Red Cell Distribution Width 17.4 % (11.5-14.5) Platelet Count 178 x10^3/uL (140-400) Neutrophils (%) (Auto) 71 % (31-73) Lymphocytes (%) (Auto) 15 % (24-48) Monocytes (%) (Auto) 11 % (0-9) Eosinophils (%) (Auto) 3 % (0-3) Basophils (%) (Auto) 0 % (0-3) Neutrophils # (Auto) 5.0 x10^3uL (1.8-7.7) Lymphocytes # (Auto) 1.0 x10^3/uL (1.0-4.8) Monocytes # (Auto) 0.8 x10^3/uL (0.0-1.1) Eosinophils # (Auto) 0.2 x10^3/uL (0.0-0.7) Basophils # (Auto) 0.0 x10^3/uL (0.0-0.2) Sodium Level 143 mmol/L (136-145) Potassium Level 3.8 mmol/L (3.5-5.1) Chloride Level 108 mmol/L (98-107) Carbon Dioxide Level 31 mmol/L (21-32) Anion Gap 4 (6-14) Blood Urea Nitrogen 8 mg/dL (8-26) Creatinine 0.7 mg/dL (0.7-1.3) Estimated GFR (Cockcroft-Gault) 124.3 Glucose Level 134 mg/dL (70-99) Calcium Level 8.2 mg/dL (8.5-10.1) Phosphorus Level 3.6 mg/dL (2.6-4.7) Magnesium Level 1.9 mg/dL (1.8-2.4) Laboratory Tests Test 04/01/18 11:59 04/01/18 17:35 04/01/18 23:56 04/02/18 05:46 Glucose (Fingerstick) 153 mg/dL (70-99) 150 mg/dL (70-99) 133 mg/dL (70-99) 118 mg/dL (70-99) Test 04/02/18 05:50 White Blood Count 7.0 x10^3/uL (4.0-11.0) Red Blood Count 2.98 x10^6/uL (4.30-5.70) Hemoglobin 7.7 g/dL (13.0-17.5) Hematocrit 23.5 % (39.0-53.0) Mean Corpuscular Volume 79 fL (79-100) Mean Corpuscular Hemoglobin 26 pg (25-35) Mean Corpuscular Hemoglobin Concent 33 g/dL (31-37) Red Cell Distribution Width 17.4 % (11.5-14.5) Platelet Count 178 x10^3/uL (140-400) Neutrophils (%) (Auto) 71 % (31-73) Lymphocytes (%) (Auto) 15 % (24-48) Monocytes (%) (Auto) 11 % (0-9) Eosinophils (%) (Auto) 3 % (0-3) Basophils (%) (Auto) 0 % (0-3) Neutrophils # (Auto) 5.0 x10^3uL (1.8-7.7) Lymphocytes # (Auto) 1.0 x10^3/uL (1.0-4.8) Monocytes # (Auto) 0.8 x10^3/uL (0.0-1.1) Eosinophils # (Auto) 0.2 x10^3/uL (0.0-0.7) Basophils # (Auto) 0.0 x10^3/uL (0.0-0.2) Sodium Level 143 mmol/L (136-145) Potassium Level 3.8 mmol/L (3.5-5.1) Chloride Level 108 mmol/L (98-107) Carbon Dioxide Level 31 mmol/L (21-32) Anion Gap 4 (6-14) Blood Urea Nitrogen 8 mg/dL (8-26) Creatinine 0.7 mg/dL (0.7-1.3) Estimated GFR (Cockcroft-Gault) 124.3 Glucose Level 134 mg/dL (70-99) Calcium Level 8.2 mg/dL (8.5-10.1) Phosphorus Level 3.6 mg/dL (2.6-4.7) Magnesium Level 1.9 mg/dL (1.8-2.4) Medications Active Scripts Medications Dose Route/Sig Max Daily Dose Days Date Category Diazepam 5 Mg Tablet 5 Mg PO DAILY 03/05/18 Rx Proair Hfa Inhaler (Albuterol Sulfate) 8.5 Gm Hfa.aer.ad 1 Puff INH PRN Q4HRS PRN 03/02/18 Reported Duoneb 0.5-3(2.5) Mg/3 Ml (Albuterol/Ipratropium) 3 Ml Ampul.neb 3 Ml NEB Q2HR PRN 03/02/18 Reported Symbicort 160-4.5 Mcg Inhaler (Budesonide/Formoterol Fumarate) 10.2 Gm Hfa.aer.ad 2 Puff IH BID 08/13/16 Reported Prilosec Otc (Omeprazole Magnesium) 20 Mg Tablet.dr 1 Tab PO DAILY 04/30/16 Reported Theophylline (Theophylline Anhydrous) 400 Mg Tablet.er 300 Mg PO BID 08/20/13 Reported Impression . 1. Acute recurrent alcoholic pancreatitis. worsening by ct abdomen 2. New sepsis with a new fever and elevated white cell count. progression of pancreatitis ? pancreatic abscess or necrotic pancreatitis. 3. Acute Respiratory failure due to above 4. Acute encephalopathy/delirium.now intubated 5. History of asthma. 6. Abnormal chest x-ray with new infiltrate/ RLL effusion, suspect aspiration 7. Acute hypoxic respiratory failure related to acute pancreatitis with/suspected acute lung injury. Plan . 1. Continue with present AC mode, 40% fio2/ Not ready for weaning due to copious secretions 2. Monitor ABGs and chest x-rays closely. 3. Continue SEDATION 4. Watch for withdrawal symptoms 5. TPN 6. Follow ID recommendation. 7. Follow GI recommendations. 8. DVT and stress ulcer prophylaxis. 9. prn suction/ prn lasix/ Abx KARLA LOVING MD Apr 02, 2018 11:01
[2018-04-02] MEDS: TPN PER PHARMACY MC PRN (12:32)
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
--- NOTE | 2018-04-02 13:43 | RAD ---
Right upper extremity venous ultrasound, 04/02/2018: HISTORY: Arm swelling The visualized portions of the right internal jugular and subclavian veins are patent. There is a bandage obscuring portions of these vessels. The right axillary, brachial, radial and ulnar veins are patent. The right cephalic vein in the upper arm is patent. There is occlusive thrombus in the cephalic vein in the forearm. The right basilic vein is patent. IMPRESSION: 1. No sonographic evidence of deep vein thrombosis in the right upper extremity. 2. Occlusive thrombus is present in the cephalic vein in the right forearm. Electronically signed by: Esteban Hall MD (04/02/2018 1:39 PM) [facility]
[2018-04-02] MEDS: MICAFUNGIN 100 MG in IV DEXTROSE 5% 100ML 100 ML IV SCH (14:09)
[2018-04-02] MEDS: MINERAL OIL/PETROLATUM,WHITE OPHTH OINT 3.5GM TUBE. OU SCH ×2 (14:49→19:32)
[2018-04-02] MEDS: DEXMEDETOMIDINE 200 MCG in IV NORMAL SALINE 50ML 48 ML IV PRN ×2 (14:59→19:34)
[2018-04-02 15:48] LABS: BASE EXCESS ABG 3 mmol/L (-3-3); HCO3 ABG 27 mmol/L (21-28); PCO2 ABG 44 mmHg (35-46); PO2 ABG 78 mmHg (75-108); SAT O2 ABG 95 % (92-99)
[2018-04-02 15:49] LABS: FIO2 ABG 40
[2018-04-02] MEDS: ENOXAPARIN 40 MG/0.4 ML SYRINGE. SQ SCH (19:32)
[2018-04-02] MEDS ORDERED: TOTAL PARENTERAL NUTRITION IV SCH ×12 (22:00)
[2018-04-02] MEDS ORDERED: AMINO ACIDS IV SCH ×12 (22:00)
[2018-04-02] MEDS ORDERED: DEXTROSE 70% IV SCH ×12 (22:00)
[2018-04-02] MEDS ORDERED: [UNRECOGNIZED DRUG - OTHER] IV SCH ×12 (22:00)
[2018-04-03] VITALS (24 sets, daily range): BP systolic 107–156; BP diastolic 58–89
[2018-04-03] MEDS: DEXMEDETOMIDINE 200 MCG in IV NORMAL SALINE 50ML 48 ML IV PRN ×4 (02:26→16:24)
[2018-04-03] MEDS: PROPOFOL 100 ML IV PRN ×5 (04:15→18:46)
[2018-04-03] MEDS: OCTREOTIDE 100 MCG/ML VIAL SQ SCH ×3 (05:13→21:10)
[2018-04-03] MEDS: MEROPENEM 500 MG in IV NORMAL SALINE 50ML 50 ML IV SCH ×3 (05:13→17:43)
[2018-04-03 07:07] LABS: BASO # 0.1 x10^3/uL (0.0-0.2); BASO % 1 % (0-3); EOS # 0.2 x10^3/uL (0.0-0.7); EOS % 3 % (0-3); HEMATOCRIT 25.7 % (39.0-53.0); HEMOGLOBIN 8.4 g/dL (13.0-17.5); LYMPH # 0.7 x10^3/uL (1.0-4.8); LYMPH % 12 % (24-48); MEAN CORPUSCULAR HEMOGLOBIN 26 pg (25-35); MEAN CORPUSCULAR HGB CONC 33 g/dL (31-37); MEAN CORPUSCULAR VOLUME 79 fL (79-100); MONO # 0.5 x10^3/uL (0.0-1.1); MONO % 9 % (0-9); NEUT # 4.3 x10^3uL (1.8-7.7); NEUT % 75 % (31-73); PLATELET COUNT 221 x10^3/uL (140-400); RED BLOOD COUNT 3.28 x10^6/uL (4.30-5.70); RED CELL DISTRIBUTION WIDTH 17.7 % (11.5-14.5); WHITE BLOOD COUNT 5.7 x10^3/uL (4.0-11.0)
[2018-04-03 07:12] LABS: CALCIUM 8.3 mg/dL (8.5-10.1); CREATININE 0.7 mg/dL (0.7-1.3); GFR 124.3; POTASSIUM 4.1 mmol/L (3.5-5.1)
[2018-04-03 07:16] LABS: MAGNESIUM 1.9 mg/dL (1.8-2.4); PHOSPHORUS 4.2 mg/dL (2.6-4.7)
[2018-04-03] MEDS: PANTOPRAZOLE IV PUSH 40 MG VIAL. IVP SCH (07:42)
[2018-04-03] MEDS: CHLORHEXIDINE 0.12% 15 ML MOUTHWASH. MM SCH ×2 (07:53→21:10)
--- NOTE | 2018-04-03 07:56 | PDOC ---
Infectious Disease Note Subjective: Subjective Pt remains sedated, intubated T max 100.9 on TPN on propofol, ativan and fentanyl opens eyes comfortable d/w RN ROS: ROS unable to obtain Vital Signs: Vital Signs Vital Signs Date Time Temp Pulse Resp B/P (MAP) Pulse Ox O2 Delivery O2 Flow Rate FiO2 04/03/18 06:05 67 18 141/77 (98) 100 Ventilator 04/03/18 04:00 98.8 98.8 Physical Exam: PHYSICAL EXAM intubated, sedated Heent fixed pupils,opens eyes intermitently LUNGS: Breathing nonlabored CV: Regular ABD: Obese, moderately distended ,BS + : Kramer + EXT:edema +, no cyanosis rt central line in place, clean LUE PICC line looks ok Medications: Inpatient Meds: Current Medications Medications (Trade) Dose Ordered Sig/Wil Start Time Stop Time Status Last Admin Dose Admin Acetaminophen (Tylenol Supp) 650 mg PRN Q6HRS PRN 03/30/18 17:15 03/31/18 15:02 650 MG Albuterol Sulfate (Ventolin Neb Soln) 2.5 mg PRN Q4HRS PRN 03/30/18 13:30 Atropine Sulfate (ATROPINE 0.5mg SYRINGE) 0.5 mg PRN Q5MIN PRN 03/29/18 08:30 Belladonna Alkaloids/Opium (B & O) 1 supp PRN Q12HR PRN 03/29/18 01:45 03/29/18 02:58 1 SUPP Budesonide (Pulmicort) 0.5 mg RTBID 03/26/18 20:00 04/02/18 19:44 0.5 MG Chlorhexidine Gluconate (Peridex) 15 ml BID 03/31/18 21:00 04/02/18 19:32 15 ML Clonidine HCl (Catapres) 0.1 mg PRN Q1HR PRN 03/26/18 16:45 03/27/18 05:28 0.1 MG Dexmedetomidine HCl 200 mcg/ Sodium Chloride 50 ml @ 0 mls/hr CONT PRN 03/29/18 08:30 04/03/18 02:26 0 MLS/HR Diazepam (Valium) 5 mg PRN Q2HR PRN 03/29/18 01:45 03/29/18 02:47 5 MG Diphenhydramine HCl (Benadryl) 25 mg PRN Q15MIN PRN 03/26/18 16:45 03/29/18 08:25 25 MG Enoxaparin Sodium (Lovenox 40mg Syringe) 40 mg Q24H 03/26/18 21:00 04/02/18 19:32 40 MG Fentanyl Citrate 30 ml @ 0 mls/hr CONT PRN 03/31/18 11:00 04/03/18 05:19 0 MLS/HR Folic Acid (Folic Acid) 1 mg DAILY 03/31/18 09:00 03/31/18 14:18 DC Furosemide (Lasix) 20 mg 1X ONCE 04/02/18 09:30 04/02/18 09:31 DC 04/02/18 09:12 20 MG Haloperidol Lactate (Haldol Inj) 5 mg PRN Q4HRS PRN 03/26/18 16:45 03/31/18 05:20 5 MG Info (CONTRAST GIVEN -- Rx MONITORING) 1 each PRN DAILY PRN 03/31/18 09:15 04/02/18 09:14 DC Info (Tpn Per Pharmacy) 1 each PRN DAILY PRN 03/31/18 14:00 04/02/18 12:32 1 EACH Iohexol (Omnipaque 300 Mg/ml) 75 ml 1X ONCE 03/31/18 10:00 03/31/18 10:04 DC 03/31/18 10:29 75 ML Labetalol HCl (Normodyne Iv Push) 20 mg PRN Q2HR PRN 03/30/18 17:15 03/31/18 10:02 20 MG Linezolid/Dextrose 300 ml @ 300 mls/hr Q12HR 03/30/18 14:00 04/02/18 19:33 300 MLS/HR Lorazepam (Ativan) 2 mg STK-MED ONCE 03/31/18 11:10 04/01/18 09:10 DC Meropenem 500 mg/ Sodium Chloride 50 ml @ 100 mls/hr Q6HRS 03/31/18 18:00 04/03/18 05:13 100 MLS/HR Micafungin Sodium 100 mg/Dextrose 100 ml @ 100 mls/hr Q24H 03/30/18 15:00 04/02/18 14:09 100 MLS/HR Morphine Sulfate (Morphine Sulfate) 2 mg PRN Q2HR PRN 03/27/18 16:45 03/31/18 10:42 2 MG Multi-Ingred Cream/Lotion/Oil/ Oint (Artificial Tears Eye Ointment) 1 rosemary Q12HR 04/02/18 14:00 04/02/18 19:32 1 ROSEMARY Multivitamins (Thera M Plus) 1 tab DAILY 03/31/18 09:00 03/31/18 14:18 DC Multivitamins 10 ml/Thiamine HCl 100 mg/Folic Acid 1 mg/Sodium Chloride 1,011.2 ml @ 100 mls/ hr DAILY 03/27/18 09:00 03/31/18 19:07 UNV Non-Formulary Medication (Albuterol Sulfate (Proair Hfa Inhaler)) 1 puff PRN Q4HRS PRN 03/26/18 16:45 UNV Non-Formulary Medication (Budesonide/ Formoterol Fumarate (Symbicort 160-4.5 Mcg Inhaler)) 2 puff BID 03/26/18 21:00 UNV Octreotide Acetate (SandoSTATIN) 100 mcg Q8HRS 03/31/18 15:30 04/03/18 05:13 100 MCG Olanzapine (ZyPREXA IM) 10 mg PRN Q8HRS PRN 03/30/18 14:00 Ondansetron HCl (Zofran) 4 mg PRN Q6HRS PRN 03/27/18 16:45 03/28/18 02:34 4 MG Pantoprazole Sodium (PROTONIX VIAL for IV PUSH) 40 mg DAILYAC 04/01/18 07:30 04/03/18 07:42 40 MG Pantoprazole Sodium (Protonix) 40 mg DAILYAC 03/31/18 07:30 03/31/18 11:32 DC Piperacillin Sod/ Tazobactam Sod 3.375 gm/Sodium Chloride 50 ml @ 100 mls/hr Q6HRS 03/27/18 16:00 03/31/18 13:38 DC 03/31/18 12:16 100 MLS/HR Potassium Chloride/Sodium Chloride 1,000 ml @ 75 mls/hr [id number] 03/29/18 14:15 04/01/18 13:39 DC 04/01/18 08:47 75 MLS/HR Potassium Chloride (Klor-Con) 40 meq 1X ONCE 03/29/18 13:15 03/29/18 13:16 DC 03/29/18 14:25 40 MEQ Propofol 100 ml @ 0 mls/hr CONT PRN 03/31/18 11:30 04/03/18 07:42 25.8 MLS/HR Sodium Chloride 45 meq/Sodium Acetate 45 meq/ Potassium Chloride 50 meq/ Potassium Phosphate 13.6 mmol/Magnesium Sulfate 10 meq/ Calcium Gluconate 10 meq/ Multivitamins 10 ml/Chromium/ Copper/Manganese/ Seleni/Zn 1 ml/ Folic Acid 1 mg/ Thiamine HCl 100 mg/Total Donna... 1,512 ml @ 63 mls/hr TPN CONT 03/31/18 22:00 04/01/18 21:59 DC 03/31/18 21:41 63 MLS/HR Sodium Chloride 45 meq/Sodium Acetate 45 meq/ Potassium Chloride 70 meq/ Potassium Phosphate 13.6 mmol/Magnesium Sulfate 10 meq/ Calcium Gluconate 10 meq/ Multivitamins 10 ml/Chromium/ Copper/Manganese/ Seleni/Zn 1 ml/ Folic Acid 1 mg/ Thiamine HCl 100 mg/Total Donna... 1,512 ml @ 63 mls/hr TPN CONT 04/02/18 22:00 04/03/18 21:59 04/02/18 22:18 63 MLS/HR Succinylcholine Chloride (Anectine) 200 mg 1X ONCE 03/31/18 11:30 03/31/18 11:31 DC Theophylline (Theodur) 300 mg BID 03/26/18 21:00 04/02/18 08:50 DC 03/30/18 08:45 300 MG Thiamine HCl 100 mg/Dextrose 51 ml @ 100 mls/hr DAILY 03/27/18 09:00 03/31/18 09:31 UNV Vecuronium Orange (Norcuron Bolus) 10 mg STK-MED ONCE 03/31/18 11:10 04/01/18 09:10 DC Labs: Lab Laboratory Tests Test 04/02/18 08:00 04/03/18 06:50 O2 Saturation 95 % (92-99) Arterial Blood pH 7.41 (7.35-7.45) Arterial Blood pCO2 at Patient Temp 44 mmHg (35-46) Arterial Blood pO2 at Patient Temp 78 mmHg (75-108) Arterial Blood HCO3 27 mmol/L (21-28) Arterial Blood Base Excess 3 mmol/L (-3-3) FiO2 40 White Blood Count 5.7 x10^3/uL (4.0-11.0) Red Blood Count 3.28 x10^6/uL (4.30-5.70) Hemoglobin 8.4 g/dL (13.0-17.5) Hematocrit 25.7 % (39.0-53.0) Mean Corpuscular Volume 79 fL (79-100) Mean Corpuscular Hemoglobin 26 pg (25-35) Mean Corpuscular Hemoglobin Concent 33 g/dL (31-37) Red Cell Distribution Width 17.7 % (11.5-14.5) Platelet Count 221 x10^3/uL (140-400) Neutrophils (%) (Auto) 75 % (31-73) Lymphocytes (%) (Auto) 12 % (24-48) Monocytes (%) (Auto) 9 % (0-9) Eosinophils (%) (Auto) 3 % (0-3) Basophils (%) (Auto) 1 % (0-3) Neutrophils # (Auto) 4.3 x10^3uL (1.8-7.7) Lymphocytes # (Auto) 0.7 x10^3/uL (1.0-4.8) Monocytes # (Auto) 0.5 x10^3/uL (0.0-1.1) Eosinophils # (Auto) 0.2 x10^3/uL (0.0-0.7) Basophils # (Auto) 0.1 x10^3/uL (0.0-0.2) Sodium Level 138 mmol/L (136-145) Potassium Level 4.1 mmol/L (3.5-5.1) Chloride Level 102 mmol/L (98-107) Carbon Dioxide Level 30 mmol/L (21-32) Anion Gap 6 (6-14) Blood Urea Nitrogen 10 mg/dL (8-26) Creatinine 0.7 mg/dL (0.7-1.3) Estimated GFR (Cockcroft-Gault) 124.3 Glucose Level 159 mg/dL (70-99) Calcium Level 8.3 mg/dL (8.5-10.1) Phosphorus Level 4.2 mg/dL (2.6-4.7) Magnesium Level 1.9 mg/dL (1.8-2.4) Objective: Assessment: Fever likely from pancreatitis vs other, cult nonrevealing Leukocytosis resolved, ? reactive vs other Pancreatitis,with worsening changes on ct Encephalopathy, likely medication related ZAIRA - improved Alcoholism with DTs Hypertension Lung infiltrates likely pulm venous congestion Occlusive thrombus Rt Cephalic vein PICC line in LUE on TPN constipation last bm 03/30 Plan: Plan of Care Cont Merrem; Micafungin and linezolid ( 03/30) BC NGTD GI following Withdrawal precautions D/W EDIE KNIGHT MD Apr 03, 2018 07:56
[2018-04-03] MEDS: ALBUTEROL SULFATE 2.5 MG/3 ML NEBU. NEB PRN (08:13)
[2018-04-03] MEDS: BUDESONIDE 0.5 MG/2 ML NEBU. NEB SCH ×2 (08:13→19:51)
[2018-04-03 08:22] LABS: BASE EXCESS ABG 3 mmol/L (-3-3); HCO3 ABG 27 mmol/L (21-28); PCO2 ABG 40 mmHg (35-46); PO2 ABG 115 mmHg (75-108); SAT O2 ABG 98 % (92-99)
--- NOTE | 2018-04-03 08:46 | RAD ---
Portable chest, 04/03/2018: HISTORY: Respiratory failure Comparison is made to yesterday's study. The ET tube and right jugular central venous catheters are in satisfactory positions. The tip of the NG tube overlies the proximal aspect of the stomach with a sidehole lying in the region of the distal esophagus. The heart is enlarged. The pulmonary vascularity remains prominent with loss of vascular margination the left. The vascularity has improved slightly over the last several days. There is a moderate ongoing left basilar opacity compatible with infiltrate and pleural fluid. There is improved aeration of the right lung base. No new abnormality is detected. IMPRESSION: 1. Ongoing cardiomegaly with improved vascular congestion. 2. Moderate persistent left basilar infiltrate and pleural fluid. 3. Improved aeration of the right lung base. Electronically signed by: Esteban Hall MD (04/03/2018 8:42 AM) [facility]
[2018-04-03] MEDS: MINERAL OIL/PETROLATUM,WHITE OPHTH OINT 3.5GM TUBE. OU SCH ×2 (08:59→21:12)
--- NOTE | 2018-04-03 09:05 | PDOC ---
Objective: Objective: Reviewed w/ RN - still has OG output, abdomen is quiet. 1000mL charted gastric output. Vital Signs: Vital Signs Date Time Temp Pulse Resp B/P (MAP) Pulse Ox O2 Delivery O2 Flow Rate FiO2 04/03/18 08:19 100 Ventilator 04/03/18 06:05 67 18 141/77 (98) 04/03/18 04:00 98.8 98.8 Labs: Laboratory Tests Test 04/03/18 06:50 White Blood Count 5.7 x10^3/uL Red Blood Count 3.28 x10^6/uL Hemoglobin 8.4 g/dL Hematocrit 25.7 % Mean Corpuscular Volume 79 fL Mean Corpuscular Hemoglobin 26 pg Mean Corpuscular Hemoglobin Concent 33 g/dL Red Cell Distribution Width 17.7 % Platelet Count 221 x10^3/uL Neutrophils (%) (Auto) 75 % Lymphocytes (%) (Auto) 12 % Monocytes (%) (Auto) 9 % Eosinophils (%) (Auto) 3 % Basophils (%) (Auto) 1 % Neutrophils # (Auto) 4.3 x10^3uL Lymphocytes # (Auto) 0.7 x10^3/uL Monocytes # (Auto) 0.5 x10^3/uL Eosinophils # (Auto) 0.2 x10^3/uL Basophils # (Auto) 0.1 x10^3/uL Sodium Level 138 mmol/L Potassium Level 4.1 mmol/L Chloride Level 102 mmol/L Carbon Dioxide Level 30 mmol/L Anion Gap 6 Blood Urea Nitrogen 10 mg/dL Creatinine 0.7 mg/dL Estimated GFR (Cockcroft-Gault) 124.3 Glucose Level 159 mg/dL Calcium Level 8.3 mg/dL Phosphorus Level 4.2 mg/dL Magnesium Level 1.9 mg/dL Imaging: CXR 04/03 IMPRESSION: 1. Ongoing cardiomegaly with improved vascular congestion. 2. Moderate persistent left basilar infiltrate and pleural fluid. 3. Improved aeration of the right lung base. PE: GEN: intubated LUNGS: vent HEART: RRR ABD: quiet, ?less distended NEURO/PSYCH: sedated A/P: Alcoholic pancreatitis, withdrawal/agitation - intubated -- Will review w/ Dr. Rogers re: continuing octreotide or need for third CT. MESSI GORE Apr 03, 2018 09:05
--- NOTE | 2018-04-03 11:14 | PDOC ---
PULMONARY PROGRESS NOTES Subjective intubated 03/31 remains on AC mode resolved ET secretions Vitals Vital Signs Date Time Temp Pulse Resp B/P (MAP) Pulse Ox O2 Delivery O2 Flow Rate FiO2 04/03/18 09:54 100 Ventilator 04/03/18 06:05 67 18 141/77 (98) 04/03/18 04:00 98.8 98.8 Lungs: Other (clear) Cardiovascular: S1 Abdomen: Soft Extremities: Other (1+edema) Skin: Warm Labs Laboratory Tests Test 04/01/18 11:59 04/01/18 17:35 04/01/18 23:56 04/02/18 05:46 Glucose (Fingerstick) 153 mg/dL (70-99) 150 mg/dL (70-99) 133 mg/dL (70-99) 118 mg/dL (70-99) Test 04/02/18 05:50 04/02/18 08:00 04/03/18 06:50 White Blood Count 7.0 x10^3/uL (4.0-11.0) 5.7 x10^3/uL (4.0-11.0) Red Blood Count 2.98 x10^6/uL (4.30-5.70) 3.28 x10^6/uL (4.30-5.70) Hemoglobin 7.7 g/dL (13.0-17.5) 8.4 g/dL (13.0-17.5) Hematocrit 23.5 % (39.0-53.0) 25.7 % (39.0-53.0) Mean Corpuscular Volume 79 fL (79-100) 79 fL (79-100) Mean Corpuscular Hemoglobin 26 pg (25-35) 26 pg (25-35) Mean Corpuscular Hemoglobin Concent 33 g/dL (31-37) 33 g/dL (31-37) Red Cell Distribution Width 17.4 % (11.5-14.5) 17.7 % (11.5-14.5) Platelet Count 178 x10^3/uL (140-400) 221 x10^3/uL (140-400) Neutrophils (%) (Auto) 71 % (31-73) 75 % (31-73) Lymphocytes (%) (Auto) 15 % (24-48) 12 % (24-48) Monocytes (%) (Auto) 11 % (0-9) 9 % (0-9) Eosinophils (%) (Auto) 3 % (0-3) 3 % (0-3) Basophils (%) (Auto) 0 % (0-3) 1 % (0-3) Neutrophils # (Auto) 5.0 x10^3uL (1.8-7.7) 4.3 x10^3uL (1.8-7.7) Lymphocytes # (Auto) 1.0 x10^3/uL (1.0-4.8) 0.7 x10^3/uL (1.0-4.8) Monocytes # (Auto) 0.8 x10^3/uL (0.0-1.1) 0.5 x10^3/uL (0.0-1.1) Eosinophils # (Auto) 0.2 x10^3/uL (0.0-0.7) 0.2 x10^3/uL (0.0-0.7) Basophils # (Auto) 0.0 x10^3/uL (0.0-0.2) 0.1 x10^3/uL (0.0-0.2) Sodium Level 143 mmol/L (136-145) 138 mmol/L (136-145) Potassium Level 3.8 mmol/L (3.5-5.1) 4.1 mmol/L (3.5-5.1) Chloride Level 108 mmol/L (98-107) 102 mmol/L (98-107) Carbon Dioxide Level 31 mmol/L (21-32) 30 mmol/L (21-32) Anion Gap 4 (6-14) 6 (6-14) Blood Urea Nitrogen 8 mg/dL (8-26) 10 mg/dL (8-26) Creatinine 0.7 mg/dL (0.7-1.3) 0.7 mg/dL (0.7-1.3) Estimated GFR (Cockcroft-Gault) 124.3 124.3 Glucose Level 134 mg/dL (70-99) 159 mg/dL (70-99) Calcium Level 8.2 mg/dL (8.5-10.1) 8.3 mg/dL (8.5-10.1) Phosphorus Level 3.6 mg/dL (2.6-4.7) 4.2 mg/dL (2.6-4.7) Magnesium Level 1.9 mg/dL (1.8-2.4) 1.9 mg/dL (1.8-2.4) O2 Saturation 95 % (92-99) Arterial Blood pH 7.41 (7.35-7.45) Arterial Blood pCO2 at Patient Temp 44 mmHg (35-46) Arterial Blood pO2 at Patient Temp 78 mmHg (75-108) Arterial Blood HCO3 27 mmol/L (21-28) Arterial Blood Base Excess 3 mmol/L (-3-3) FiO2 40 Laboratory Tests Test 04/03/18 06:50 White Blood Count 5.7 x10^3/uL (4.0-11.0) Red Blood Count 3.28 x10^6/uL (4.30-5.70) Hemoglobin 8.4 g/dL (13.0-17.5) Hematocrit 25.7 % (39.0-53.0) Mean Corpuscular Volume 79 fL (79-100) Mean Corpuscular Hemoglobin 26 pg (25-35) Mean Corpuscular Hemoglobin Concent 33 g/dL (31-37) Red Cell Distribution Width 17.7 % (11.5-14.5) Platelet Count 221 x10^3/uL (140-400) Neutrophils (%) (Auto) 75 % (31-73) Lymphocytes (%) (Auto) 12 % (24-48) Monocytes (%) (Auto) 9 % (0-9) Eosinophils (%) (Auto) 3 % (0-3) Basophils (%) (Auto) 1 % (0-3) Neutrophils # (Auto) 4.3 x10^3uL (1.8-7.7) Lymphocytes # (Auto) 0.7 x10^3/uL (1.0-4.8) Monocytes # (Auto) 0.5 x10^3/uL (0.0-1.1) Eosinophils # (Auto) 0.2 x10^3/uL (0.0-0.7) Basophils # (Auto) 0.1 x10^3/uL (0.0-0.2) Sodium Level 138 mmol/L (136-145) Potassium Level 4.1 mmol/L (3.5-5.1) Chloride Level 102 mmol/L (98-107) Carbon Dioxide Level 30 mmol/L (21-32) Anion Gap 6 (6-14) Blood Urea Nitrogen 10 mg/dL (8-26) Creatinine 0.7 mg/dL (0.7-1.3) Estimated GFR (Cockcroft-Gault) 124.3 Glucose Level 159 mg/dL (70-99) Calcium Level 8.3 mg/dL (8.5-10.1) Phosphorus Level 4.2 mg/dL (2.6-4.7) Magnesium Level 1.9 mg/dL (1.8-2.4) Medications Active Scripts Medications Dose Route/Sig Max Daily Dose Days Date Category Diazepam 5 Mg Tablet 5 Mg PO DAILY 03/05/18 Rx Proair Hfa Inhaler (Albuterol Sulfate) 8.5 Gm Hfa.aer.ad 1 Puff INH PRN Q4HRS PRN 03/02/18 Reported Duoneb 0.5-3(2.5) Mg/3 Ml (Albuterol/Ipratropium) 3 Ml Ampul.neb 3 Ml NEB Q2HR PRN 03/02/18 Reported Symbicort 160-4.5 Mcg Inhaler (Budesonide/Formoterol Fumarate) 10.2 Gm Hfa.aer.ad 2 Puff IH BID 08/13/16 Reported Prilosec Otc (Omeprazole Magnesium) 20 Mg Tablet.dr 1 Tab PO DAILY 04/30/16 Reported Theophylline (Theophylline Anhydrous) 400 Mg Tablet.er 300 Mg PO BID 08/20/[address] ABDOMEN 1. Acute pancreatitis. There has been significant progression of peripancreatic stranding and free fluid and there is interval pancreatic enlargement. No focal pancreatic lesion or pseudocyst is seen. 2. Suspected complex free fluid tracking along the anterior inferior pancreatic tail into the left lower quadrant. There is a small amount of additional free fluid throughout the abdomen and pelvis. 3. New small left greater than right pleural effusions with left greater than right lower lobe compressive atelectasis/partial collapse. 4. Stable hypodense lesions within the liver. These are better characterized on the prior exam due to suboptimal contrast on the current study. Nonemergent assessment with a liver protocol CT or MRI is recommended. 5. Mild hepatomegaly and hepatic steatosis. 6. Small hiatal hernia and distal esophageal mucosal thickening. Correlate for esophagitis. Electronically signed by: Eliana Wright MD (03/31/2018 10:56 AM) [facility] Impression . 1. Acute recurrent alcoholic pancreatitis. worsening by ct abdomen/ Suspected complex free fluid tracking along the anterior inferior pancreatic tail into the left lower quadrant. 2. New sepsis with a new fever and elevated white cell count. progression of pancreatitis ? pancreatic abscess or necrotic pancreatitis. 3. Acute Respiratory failure due to above 4. Acute encephalopathy/delirium.now intubated 5. History of asthma. 6. Abnormal chest x-ray with new infiltrate/ RLL effusion, suspect aspiration 7. Acute hypoxic respiratory failure related to acute pancreatitis with/suspected acute lung injury. Plan . 1. Continue with present AC mode, 40% fio2/ Not ready for weaning due to ongoing fever/sepsis 2. Monitor ABGs and chest x-rays closely. improved effusion 3. Continue SEDATION 4. Watch for withdrawal symptoms 5. TPN 6. Follow ID recommendation. 7. Follow GI recommendations./ ? Need drain.? another ct abdomen 8. DVT and stress ulcer prophylaxis. 9. prn suction/ prn lasix/ Abx 10. d/w ID KARLA LOVING MD Apr 03, 2018 11:14
[2018-04-03 12:20] LABS: FIO2 ABG 35
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
[2018-04-03] MEDS: TPN PER PHARMACY MC PRN (13:47)
[2018-04-03] MEDS: MICAFUNGIN 100 MG in IV DEXTROSE 5% 100ML 100 ML IV SCH (13:59)
[2018-04-03] MEDS: ENOXAPARIN 40 MG/0.4 ML SYRINGE. SQ SCH (21:12)
[2018-04-03] MEDS ORDERED: AMINO ACIDS IV SCH ×12 (22:00)
[2018-04-03] MEDS ORDERED: TOTAL PARENTERAL NUTRITION IV SCH ×12 (22:00)
[2018-04-03] MEDS ORDERED: [UNRECOGNIZED DRUG - OTHER] IV SCH ×12 (22:00)
[2018-04-03] MEDS ORDERED: DEXTROSE 70% IV SCH ×12 (22:00)
[2018-04-04] VITALS (19 sets, daily range): BP systolic 96–141; BP diastolic 46–78
[2018-04-04] MEDS: PROPOFOL 100 ML IV PRN ×8 (00:03→22:27)
[2018-04-04] MEDS: DEXMEDETOMIDINE 200 MCG in IV NORMAL SALINE 50ML 48 ML IV PRN ×4 (00:03→21:48)
[2018-04-04] MEDS: MEROPENEM 500 MG in IV NORMAL SALINE 50ML 50 ML IV SCH ×4 (00:03→18:14)
[2018-04-04] MEDS: OCTREOTIDE 100 MCG/ML VIAL SQ SCH ×3 (06:11→21:44)
[2018-04-04 06:45] LABS: CALCIUM 8.6 mg/dL (8.5-10.1); CREATININE 0.7 mg/dL (0.7-1.3); GFR 124.3; POTASSIUM 4.2 mmol/L (3.5-5.1)
--- NOTE | 2018-04-04 06:55 | PDOC ---
Infectious Disease Note Subjective: Subjective Pt remains sedated, intubated,arousable fever improved on TPN comfortable ROS: ROS D/W RN Vital Signs: Vital Signs Vital Signs Date Time Temp Pulse Resp B/P (MAP) Pulse Ox O2 Delivery O2 Flow Rate FiO2 04/04/18 06:00 62 18 101/55 (70) 100 Ventilator 04/04/18 04:00 99.5 99.5 Physical Exam: PHYSICAL EXAM intubated, sedated Heent Lt fixed pupil,opens eyes intermitently LUNGS: Breathing nonlabored CV: Regular ABD: Obese, moderately distended ,BS + : Kramer + EXT:edema +, no cyanosis rt central line in place, clean LUE PICC line looks ok Medications: Inpatient Meds: Current Medications Medications (Trade) Dose Ordered Sig/Wil Start Time Stop Time Status Last Admin Dose Admin Acetaminophen (Tylenol Supp) 650 mg PRN Q6HRS PRN 03/30/18 17:15 03/31/18 15:02 650 MG Albuterol Sulfate (Ventolin Neb Soln) 2.5 mg PRN Q4HRS PRN 03/30/18 13:30 04/03/18 08:13 2.5 MG Atropine Sulfate (ATROPINE 0.5mg SYRINGE) 0.5 mg PRN Q5MIN PRN 03/29/18 08:30 Belladonna Alkaloids/Opium (B & O) 1 supp PRN Q12HR PRN 03/29/18 01:45 03/29/18 02:58 1 SUPP Budesonide (Pulmicort) 0.5 mg RTBID 03/26/18 20:00 04/03/18 19:51 0.5 MG Chlorhexidine Gluconate (Peridex) 15 ml BID 03/31/18 21:00 04/03/18 21:10 15 ML Clonidine HCl (Catapres) 0.1 mg PRN Q1HR PRN 03/26/18 16:45 03/27/18 05:28 0.1 MG Dexmedetomidine HCl 200 mcg/ Sodium Chloride 50 ml @ 0 mls/hr CONT PRN 03/29/18 08:30 04/04/18 06:11 5.65 MLS/HR Diazepam (Valium) 5 mg PRN Q2HR PRN 03/29/18 01:45 03/29/18 02:47 5 MG Diphenhydramine HCl (Benadryl) 25 mg PRN Q15MIN PRN 03/26/18 16:45 03/29/18 08:25 25 MG Enoxaparin Sodium (Lovenox 40mg Syringe) 40 mg Q24H 03/26/18 21:00 04/03/18 21:12 40 MG Fentanyl Citrate 30 ml @ 0 mls/hr CONT PRN 03/31/18 11:00 04/04/18 01:34 2.5 MLS/HR Folic Acid (Folic Acid) 1 mg DAILY 03/31/18 09:00 03/31/18 14:18 DC Furosemide (Lasix) 20 mg 1X ONCE 04/02/18 09:30 04/02/18 09:31 DC 04/02/18 09:12 20 MG Haloperidol Lactate (Haldol Inj) 5 mg PRN Q4HRS PRN 03/26/18 16:45 03/31/18 05:20 5 MG Info (CONTRAST GIVEN -- Rx MONITORING) 1 each PRN DAILY PRN 03/31/18 09:15 04/02/18 09:14 DC Info (Tpn Per Pharmacy) 1 each PRN DAILY PRN 03/31/18 14:00 04/03/18 13:47 1 EACH Iohexol (Omnipaque 300 Mg/ml) 75 ml 1X ONCE 03/31/18 10:00 03/31/18 10:04 DC 03/31/18 10:29 75 ML Labetalol HCl (Normodyne Iv Push) 20 mg PRN Q2HR PRN 03/30/18 17:15 03/31/18 10:02 20 MG Linezolid/Dextrose 300 ml @ 300 mls/hr Q12HR 03/30/18 14:00 04/03/18 21:10 300 MLS/HR Lorazepam (Ativan) 2 mg STK-MED ONCE 03/31/18 11:10 04/01/18 09:10 DC Meropenem 500 mg/ Sodium Chloride 50 ml @ 100 mls/hr Q6HRS 03/31/18 18:00 04/04/18 06:11 100 MLS/HR Micafungin Sodium 100 mg/Dextrose 100 ml @ 100 mls/hr Q24H 03/30/18 15:00 04/03/18 13:59 100 MLS/HR Morphine Sulfate (Morphine Sulfate) 2 mg PRN Q2HR PRN 03/27/18 16:45 03/31/18 10:42 2 MG Multi-Ingred Cream/Lotion/Oil/ Oint (Artificial Tears Eye Ointment) 1 rosemary Q12HR 04/02/18 14:00 04/03/18 21:12 1 ROSEMARY Multivitamins (Thera M Plus) 1 tab DAILY 03/31/18 09:00 03/31/18 14:18 DC Multivitamins 10 ml/Thiamine HCl 100 mg/Folic Acid 1 mg/Sodium Chloride 1,011.2 ml @ 100 mls/ hr DAILY 03/27/18 09:00 03/31/18 19:07 UNV Non-Formulary Medication (Albuterol Sulfate (Proair Hfa Inhaler)) 1 puff PRN Q4HRS PRN 03/26/18 16:45 UNV Non-Formulary Medication (Budesonide/ Formoterol Fumarate (Symbicort 160-4.5 Mcg Inhaler)) 2 puff BID 03/26/18 21:00 UNV Octreotide Acetate (SandoSTATIN) 100 mcg Q8HRS 03/31/18 15:30 04/04/18 06:11 100 MCG Olanzapine (ZyPREXA IM) 10 mg PRN Q8HRS PRN 03/30/18 14:00 Ondansetron HCl (Zofran) 4 mg PRN Q6HRS PRN 03/27/18 16:45 03/28/18 02:34 4 MG Pantoprazole Sodium (PROTONIX VIAL for IV PUSH) 40 mg DAILYAC 04/01/18 07:30 04/03/18 07:42 40 MG Pantoprazole Sodium (Protonix) 40 mg DAILYAC 03/31/18 07:30 03/31/18 11:32 DC Piperacillin Sod/ Tazobactam Sod 3.375 gm/Sodium Chloride 50 ml @ 100 mls/hr Q6HRS 03/27/18 16:00 03/31/18 13:38 DC 03/31/18 12:16 100 MLS/HR Potassium Chloride/Sodium Chloride 1,000 ml @ 75 mls/hr [id number] 03/29/18 14:15 04/01/18 13:39 DC 04/01/18 08:47 75 MLS/HR Potassium Chloride (Klor-Con) 40 meq 1X ONCE 03/29/18 13:15 03/29/18 13:16 DC 03/29/18 14:25 40 MEQ Propofol 100 ml @ 0 mls/hr CONT PRN 03/31/18 11:30 04/04/18 06:12 33.9 MLS/HR Sodium Chloride 45 meq/Sodium Acetate 45 meq/ Potassium Chloride 50 meq/ Potassium Phosphate 13.6 mmol/Magnesium Sulfate 10 meq/ Calcium Gluconate 10 meq/ Multivitamins 10 ml/Chromium/ Copper/Manganese/ Seleni/Zn 1 ml/ Folic Acid 1 mg/ Thiamine HCl 100 mg/Total Donna... 1,512 ml @ 63 mls/hr TPN CONT 03/31/18 22:00 04/01/18 21:59 DC 03/31/18 21:41 63 MLS/HR Sodium Chloride 45 meq/Sodium Acetate 45 meq/ Potassium Chloride 70 meq/ Potassium Phosphate 13.6 mmol/Magnesium Sulfate 10 meq/ Calcium Gluconate 10 meq/ Multivitamins 10 ml/Chromium/ Copper/Manganese/ Seleni/Zn 1 ml/ Folic Acid 1 mg/ Thiamine HCl 100 mg/Total Donna... 1,512 ml @ 63 mls/hr TPN CONT 04/03/18 22:00 04/04/18 21:59 04/03/18 21:11 63 MLS/HR Succinylcholine Chloride (Anectine) 200 mg 1X ONCE 03/31/18 11:30 03/31/18 11:31 DC Theophylline (Theodur) 300 mg BID 03/26/18 21:00 04/02/18 08:50 DC 03/30/18 08:45 300 MG Thiamine HCl 100 mg/Dextrose 51 ml @ 100 mls/hr DAILY 03/27/18 09:00 03/31/18 09:31 UNV Vecuronium S [place] (Norcuron Bolus) 10 mg STK-MED ONCE 03/31/18 11:10 04/01/18 09:10 DC Labs: Lab Laboratory Tests Test 04/03/18 08:00 04/03/18 14:00 04/03/18 17:46 04/04/18 06:20 O2 Saturation 98 % (92-99) Arterial Blood pH 7.45 (7.35-7.45) Arterial Blood pCO2 at Patient Temp 40 mmHg (35-46) Arterial Blood pO2 at Patient Temp 115 mmHg (75-108) Arterial Blood HCO3 27 mmol/L (21-28) Arterial Blood Base Excess 3 mmol/L (-3-3) FiO2 35 Glucose (Fingerstick) 124 mg/dL (70-99) 133 mg/dL (70-99) Sodium Level 135 mmol/L (136-145) Potassium Level 4.2 mmol/L (3.5-5.1) Chloride Level 100 mmol/L (98-107) Carbon Dioxide Level 28 mmol/L (21-32) Anion Gap 7 (6-14) Blood Urea Nitrogen 14 mg/dL (8-26) Creatinine 0.7 mg/dL (0.7-1.3) Estimated GFR (Cockcroft-Gault) 124.3 Glucose Level 132 mg/dL (70-99) Calcium Level 8.6 mg/dL (8.5-10.1) Objective: Assessment: Fever likely from pancreatitis vs other, cult nonrevealing fluctuating pattern Leukocytosis resolved, ? reactive vs other Pancreatitis,with worsening changes on ct Encephalopathy, likely medication related ZAIRA - improved Alcoholism with DTs Hypertension Lung infiltrates likely pulm venous congestion Occlusive thrombus Rt Cephalic vein PICC line in LUE on TPN Plan: Plan of Care Cont Merrem; Micafungin and linezolid ( 03/30) BC NGTD GI following Withdrawal precautions D/W EDIE KNIGHT MD Apr 04, 2018 06:54
[2018-04-04] MEDS: CHLORHEXIDINE 0.12% 15 ML MOUTHWASH. MM SCH ×2 (07:30→21:44)
[2018-04-04] MEDS: PANTOPRAZOLE IV PUSH 40 MG VIAL. IVP SCH (07:30)
[2018-04-04 07:35] LABS: BASO % 1 % (0-3); EOS # 0.1 x10^3/uL (0.0-0.7); EOS % 3 % (0-3); HEMATOCRIT 24.9 % (39.0-53.0); HEMOGLOBIN 8.2 g/dL (13.0-17.5); LYMPH # 0.7 x10^3/uL (1.0-4.8); LYMPH % 14 % (24-48); MEAN CORPUSCULAR HEMOGLOBIN 26 pg (25-35); MEAN CORPUSCULAR HGB CONC 33 g/dL (31-37); MEAN CORPUSCULAR VOLUME 78 fL (79-100); MONO # 0.5 x10^3/uL (0.0-1.1); MONO % 9 % (0-9); NEUT # 3.8 x10^3uL (1.8-7.7); NEUT % 74 % (31-73); PLATELET COUNT 259 x10^3/uL (140-400); RED CELL DISTRIBUTION WIDTH 17.4 % (11.5-14.5); WHITE BLOOD COUNT 5.2 x10^3/uL (4.0-11.0)
[2018-04-04] MEDS: BUDESONIDE 0.5 MG/2 ML NEBU. NEB SCH ×2 (08:00→20:44)
--- NOTE | 2018-04-04 08:16 | RAD ---
EXAM: PORTABLE CHEST 1V AP View of the chest DATE: 04/04/2018 6:47 AM INDICATION: RF dyspnea COMPARISON: 04/03/2018, 04/02/2018 FINDINGS/ IMPRESSION: ET tube tip terminates roughly 3 cm above the osvaldo. Enteric tube extends beyond the diaphragm tip is not visualized. Right IJ vascular catheter tip projects over the superior cavoatrial junction. The heart is not enlarged. Lung base opacities are seen bilaterally with small left pleural effusion. No pneumothorax. Electronically signed by: Maurilio Mcleod MD (04/04/2018 8:13 AM) [facility]
--- NOTE | 2018-04-04 08:33 | PDOC ---
GI PROGRESS NOTES Date Date/Time DATE: 04/04/18 TIME: 08:29 Subjective Subjective Severe alcohol related pancreatitis, withdrawal Intubated and sedated Objective Vitals Vital Signs Date Time Temp Pulse Resp B/P (MAP) Pulse Ox O2 Delivery O2 Flow Rate FiO2 04/04/18 08:12 100 Ventilator 04/04/18 08:00 100.3 69 21 119/62 (81) 100 Ventilator 100.3 04/04/18 07:33 18 100 Ventilator 04/04/18 06:00 62 18 101/55 (70) 100 Ventilator 04/04/18 05:37 98 Ventilator 04/04/18 05:00 65 18 96/48 (64) 99 Ventilator 04/04/18 04:00 Mechanical Ventilator 04/04/18 04:00 99.5 64 18 114/60 (78) 98 Ventilator 99.5 04/04/18 03:04 98 Ventilator 04/04/18 03:00 68 18 133/74 (93) 100 Ventilator 04/04/18 02:38 18 100 Ventilator 04/04/18 02:00 65 18 118/61 (80) 100 Ventilator 04/04/18 01:49 98 Ventilator 04/04/18 01:34 18 100 Ventilator 04/04/18 01:00 64 18 117/60 (79) 100 Ventilator 04/04/18 00:00 Mechanical Ventilator 04/04/18 00:00 99.3 65 18 109/59 (76) 100 Ventilator 99.3 04/03/18 23:17 98 Ventilator 04/03/18 23:00 63 18 108/61 (77) 100 Ventilator 04/03/18 22:00 60 18 127/70 (89) 100 Ventilator 04/03/18 21:03 98 Ventilator 04/03/18 21:00 60 18 107/59 (75) 100 Ventilator 04/03/18 20:00 99.8 64 18 126/69 (88) 100 Ventilator 99.8 04/03/18 20:00 Mechanical Ventilator 04/03/18 19:48 98 Ventilator 04/03/18 19:00 65 18 138/78 (98) 100 Ventilator 04/03/18 18:15 18 99 Ventilator 04/03/18 18:00 68 18 142/79 (100) 97 Ventilator 04/03/18 17:51 98 Ventilator 04/03/18 17:00 66 18 144/74 (97) 99 Ventilator 04/03/18 16:00 99.8 70 18 156/82 (106) 99 Ventilator 99.8 04/03/18 16:00 Mechanical Ventilator 04/03/18 15:45 99 Ventilator 04/03/18 15:00 76 18 141/89 (106) 98 Ventilator 04/03/18 14:00 72 18 118/59 (78) 99 Ventilator 04/03/18 13:51 18 Ventilator 04/03/18 13:00 72 18 126/63 (84) 100 Ventilator 04/03/18 12:00 Mechanical Ventilator 04/03/18 12:00 99.2 72 18 120/58 (78) 100 Ventilator 99.2 04/03/18 11:51 100 Ventilator 04/03/18 11:00 74 18 134/67 (89) 99 Ventilator 04/03/18 10:00 84 18 156/71 (99) 100 Ventilator 04/03/18 09:54 100 Ventilator 04/03/18 09:00 72 18 135/69 (91) 100 Ventilator Labs Labs Laboratory Tests Test 04/03/18 14:00 04/03/18 17:46 04/04/18 06:20 Glucose (Fingerstick) 124 mg/dL (70-99) 133 mg/dL (70-99) White Blood Count 5.2 x10^3/uL (4.0-11.0) Red Blood Count 3.20 x10^6/uL (4.30-5.70) Hemoglobin 8.2 g/dL (13.0-17.5) Hematocrit 24.9 % (39.0-53.0) Mean Corpuscular Volume 78 fL (79-100) Mean Corpuscular Hemoglobin 26 pg (25-35) Mean Corpuscular Hemoglobin Concent 33 g/dL (31-37) Red Cell Distribution Width 17.4 % (11.5-14.5) Platelet Count 259 x10^3/uL (140-400) Neutrophils (%) (Auto) 74 % (31-73) Lymphocytes (%) (Auto) 14 % (24-48) Monocytes (%) (Auto) 9 % (0-9) Eosinophils (%) (Auto) 3 % (0-3) Basophils (%) (Auto) 1 % (0-3) Neutrophils # (Auto) 3.8 x10^3uL (1.8-7.7) Lymphocytes # (Auto) 0.7 x10^3/uL (1.0-4.8) Monocytes # (Auto) 0.5 x10^3/uL (0.0-1.1) Eosinophils # (Auto) 0.1 x10^3/uL (0.0-0.7) Basophils # (Auto) 0.0 x10^3/uL (0.0-0.2) Sodium Level 135 mmol/L (136-145) Potassium Level 4.2 mmol/L (3.5-5.1) Chloride Level 100 mmol/L (98-107) Carbon Dioxide Level 28 mmol/L (21-32) Anion Gap 7 (6-14) Blood Urea Nitrogen 14 mg/dL (8-26) Creatinine 0.7 mg/dL (0.7-1.3) Estimated GFR (Cockcroft-Gault) 124.3 Glucose Level 132 mg/dL (70-99) Calcium Level 8.6 mg/dL (8.5-10.1) Physical Exam Physical Exam SEdated, intubated chest- clear Cor- RRR abd- mildly distended, decreased bowel sounds Assessment Assessment Laboratory Tests Test 03/26/18 14:00 03/28/18 05:00 Lipase 1739 U/L (73-393) 1922 U/L (73-393) Plan Plan A/P: Recurrent pancreatitis- severe with alcohol withdrawal Leukocytosis, tachycardia Lipase worse. WBC better Plan- supportive care plan repeat CT next week to r/o necrosis KOLE CROWE MD Apr 04, 2018 08:33
[2018-04-04] MEDS: TPN PER PHARMACY MC PRN (08:43)
[2018-04-04 09:03] LABS: BASE EXCESS ABG 0 mmol/L (-3-3); HCO3 ABG 23 mmol/L (21-28); PCO2 ABG 35 mmHg (35-46); PO2 ABG 86 mmHg (75-108); SAT O2 ABG 96 % (92-99)
[2018-04-04 09:06] LABS: FIO2 ABG 35
--- NOTE | 2018-04-04 10:42 | PDOC ---
PULMONARY PROGRESS NOTES Subjective intubated 03/31 remains on AC mode resolved ET secretions Vitals Vital Signs Date Time Temp Pulse Resp B/P (MAP) Pulse Ox O2 Delivery O2 Flow Rate FiO2 04/04/18 10:27 74 18 123/58 (79) Ventilator 04/04/18 09:11 100 04/04/18 08:00 100.3 100.3 Lungs: Other (clear) Cardiovascular: S1 Abdomen: Soft Extremities: Other (1+edema) Skin: Warm Labs Laboratory Tests Test 04/03/18 06:50 04/03/18 08:00 04/03/18 14:00 04/03/18 17:46 White Blood Count 5.7 x10^3/uL (4.0-11.0) Red Blood Count 3.28 x10^6/uL (4.30-5.70) Hemoglobin 8.4 g/dL (13.0-17.5) Hematocrit 25.7 % (39.0-53.0) Mean Corpuscular Volume 79 fL (79-100) Mean Corpuscular Hemoglobin 26 pg (25-35) Mean Corpuscular Hemoglobin Concent 33 g/dL (31-37) Red Cell Distribution Width 17.7 % (11.5-14.5) Platelet Count 221 x10^3/uL (140-400) Neutrophils (%) (Auto) 75 % (31-73) Lymphocytes (%) (Auto) 12 % (24-48) Monocytes (%) (Auto) 9 % (0-9) Eosinophils (%) (Auto) 3 % (0-3) Basophils (%) (Auto) 1 % (0-3) Neutrophils # (Auto) 4.3 x10^3uL (1.8-7.7) Lymphocytes # (Auto) 0.7 x10^3/uL (1.0-4.8) Monocytes # (Auto) 0.5 x10^3/uL (0.0-1.1) Eosinophils # (Auto) 0.2 x10^3/uL (0.0-0.7) Basophils # (Auto) 0.1 x10^3/uL (0.0-0.2) Sodium Level 138 mmol/L (136-145) Potassium Level 4.1 mmol/L (3.5-5.1) Chloride Level 102 mmol/L (98-107) Carbon Dioxide Level 30 mmol/L (21-32) Anion Gap 6 (6-14) Blood Urea Nitrogen 10 mg/dL (8-26) Creatinine 0.7 mg/dL (0.7-1.3) Estimated GFR (Cockcroft-Gault) 124.3 Glucose Level 159 mg/dL (70-99) Calcium Level 8.3 mg/dL (8.5-10.1) Phosphorus Level 4.2 mg/dL (2.6-4.7) Magnesium Level 1.9 mg/dL (1.8-2.4) O2 Saturation 98 % (92-99) Arterial Blood pH 7.45 (7.35-7.45) Arterial Blood pCO2 at Patient Temp 40 mmHg (35-46) Arterial Blood pO2 at Patient Temp 115 mmHg (75-108) Arterial Blood HCO3 27 mmol/L (21-28) Arterial Blood Base Excess 3 mmol/L (-3-3) FiO2 35 Glucose (Fingerstick) 124 mg/dL (70-99) 133 mg/dL (70-99) Test 04/04/18 06:20 04/04/18 08:00 White Blood Count 5.2 x10^3/uL (4.0-11.0) Red Blood Count 3.20 x10^6/uL (4.30-5.70) Hemoglobin 8.2 g/dL (13.0-17.5) Hematocrit 24.9 % (39.0-53.0) Mean Corpuscular Volume 78 fL (79-100) Mean Corpuscular Hemoglobin 26 pg (25-35) Mean Corpuscular Hemoglobin Concent 33 g/dL (31-37) Red Cell Distribution Width 17.4 % (11.5-14.5) Platelet Count 259 x10^3/uL (140-400) Neutrophils (%) (Auto) 74 % (31-73) Lymphocytes (%) (Auto) 14 % (24-48) Monocytes (%) (Auto) 9 % (0-9) Eosinophils (%) (Auto) 3 % (0-3) Basophils (%) (Auto) 1 % (0-3) Neutrophils # (Auto) 3.8 x10^3uL (1.8-7.7) Lymphocytes # (Auto) 0.7 x10^3/uL (1.0-4.8) Monocytes # (Auto) 0.5 x10^3/uL (0.0-1.1) Eosinophils # (Auto) 0.1 x10^3/uL (0.0-0.7) Basophils # (Auto) 0.0 x10^3/uL (0.0-0.2) Sodium Level 135 mmol/L (136-145) Potassium Level 4.2 mmol/L (3.5-5.1) Chloride Level 100 mmol/L (98-107) Carbon Dioxide Level 28 mmol/L (21-32) Anion Gap 7 (6-14) Blood Urea Nitrogen 14 mg/dL (8-26) Creatinine 0.7 mg/dL (0.7-1.3) Estimated GFR (Cockcroft-Gault) 124.3 Glucose Level 132 mg/dL (70-99) Calcium Level 8.6 mg/dL (8.5-10.1) O2 Saturation 96 % (92-99) Arterial Blood pH 7.45 (7.35-7.45) Arterial Blood pCO2 at Patient Temp 35 mmHg (35-46) Arterial Blood pO2 at Patient Temp 86 mmHg (75-108) Arterial Blood HCO3 23 mmol/L (21-28) Arterial Blood Base Excess 0 mmol/L (-3-3) FiO2 35 Laboratory Tests Test 04/03/18 14:00 04/03/18 17:46 04/04/18 06:20 04/04/18 08:00 Glucose (Fingerstick) 124 mg/dL (70-99) 133 mg/dL (70-99) White Blood Count 5.2 x10^3/uL (4.0-11.0) Red Blood Count 3.20 x10^6/uL (4.30-5.70) Hemoglobin 8.2 g/dL (13.0-17.5) Hematocrit 24.9 % (39.0-53.0) Mean Corpuscular Volume 78 fL (79-100) Mean Corpuscular Hemoglobin 26 pg (25-35) Mean Corpuscular Hemoglobin Concent 33 g/dL (31-37) Red Cell Distribution Width 17.4 % (11.5-14.5) Platelet Count 259 x10^3/uL (140-400) Neutrophils (%) (Auto) 74 % (31-73) Lymphocytes (%) (Auto) 14 % (24-48) Monocytes (%) (Auto) 9 % (0-9) Eosinophils (%) (Auto) 3 % (0-3) Basophils (%) (Auto) 1 % (0-3) Neutrophils # (Auto) 3.8 x10^3uL (1.8-7.7) Lymphocytes # (Auto) 0.7 x10^3/uL (1.0-4.8) Monocytes # (Auto) 0.5 x10^3/uL (0.0-1.1) Eosinophils # (Auto) 0.1 x10^3/uL (0.0-0.7) Basophils # (Auto) 0.0 x10^3/uL (0.0-0.2) Sodium Level 135 mmol/L (136-145) Potassium Level 4.2 mmol/L (3.5-5.1) Chloride Level 100 mmol/L (98-107) Carbon Dioxide Level 28 mmol/L (21-32) Anion Gap 7 (6-14) Blood Urea Nitrogen 14 mg/dL (8-26) Creatinine 0.7 mg/dL (0.7-1.3) Estimated GFR (Cockcroft-Gault) 124.3 Glucose Level 132 mg/dL (70-99) Calcium Level 8.6 mg/dL (8.5-10.1) O2 Saturation 96 % (92-99) Arterial Blood pH 7.45 (7.35-7.45) Arterial Blood pCO2 at Patient Temp 35 mmHg (35-46) Arterial Blood pO2 at Patient Temp 86 mmHg (75-108) Arterial Blood HCO3 23 mmol/L (21-28) Arterial Blood Base Excess 0 mmol/L (-3-3) FiO2 35 Medications Active Scripts Medications Dose Route/Sig Max Daily Dose Days Date Category Diazepam 5 Mg Tablet 5 Mg PO DAILY 03/05/18 Rx Proair Hfa Inhaler (Albuterol Sulfate) 8.5 Gm Hfa.aer.ad 1 Puff INH PRN Q4HRS PRN 03/02/18 Reported Duoneb 0.5-3(2.5) Mg/3 Ml (Albuterol/Ipratropium) 3 Ml Ampul.neb 3 Ml NEB Q2HR PRN 03/02/18 Reported Symbicort 160-4.5 Mcg Inhaler (Budesonide/Formoterol Fumarate) 10.2 Gm Hfa.aer.ad 2 Puff IH BID 08/13/16 Reported Prilosec Otc (Omeprazole Magnesium) 20 Mg Tablet.dr 1 Tab PO DAILY 04/30/16 Reported Theophylline (Theophylline Anhydrous) 400 Mg Tablet.er 300 Mg PO BID 08/20/[address] ABDOMEN 1. Acute pancreatitis. There has been significant progression of peripancreatic stranding and free fluid and there is interval pancreatic enlargement. No focal pancreatic lesion or pseudocyst is seen. 2. Suspected complex free fluid tracking along the anterior inferior pancreatic tail into the left lower quadrant. There is a small amount of additional free fluid throughout the abdomen and pelvis. 3. New small left greater than right pleural effusions with left greater than right lower lobe compressive atelectasis/partial collapse. 4. Stable hypodense lesions within the liver. These are better characterized on the prior exam due to suboptimal contrast on the current study. Nonemergent assessment with a liver protocol CT or MRI is recommended. 5. Mild hepatomegaly and hepatic steatosis. 6. Small hiatal hernia and distal esophageal mucosal thickening. Correlate for esophagitis. Electronically signed by: Eliana Wright MD (03/31/2018 10:56 AM) [facility] Impression . 1. Acute recurrent alcoholic pancreatitis. worsening by ct abdomen/ Suspected complex free fluid tracking along the anterior inferior pancreatic tail into the left lower quadrant. 2. New sepsis with a new fever and elevated white cell count. progression of pancreatitis ? pancreatic abscess or necrotic pancreatitis. 3. Acute Respiratory failure due to above 4. Acute encephalopathy/delirium.now intubated 5. History of asthma. 6. Abnormal chest x-ray with new infiltrate/ RLL effusion, suspect aspiration 7. Acute hypoxic respiratory failure related to acute pancreatitis with/suspected acute lung injury. Plan . 1. Continue with present AC mode, 40% fio2/ ongoing fever/sepsis 2. Monitor ABGs and chest x-rays closely. improved effusion 3. will try to minimize sedation and assess MS 4. Watch for withdrawal symptoms 5. TPN 6. Follow ID recommendation. 7. Follow GI recommendations./ ? Need drain.? another ct abdomen 8. DVT and stress ulcer prophylaxis. 9. prn suction/ prn lasix/ Abx 10. d/w ID KARLA LOVING MD Apr 04, 2018 10:42
[2018-04-04] MEDS: MINERAL OIL/PETROLATUM,WHITE OPHTH OINT 3.5GM TUBE. OU SCH ×2 (10:47→21:44)
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
[2018-04-04] MEDS: MICAFUNGIN 100 MG in IV DEXTROSE 5% 100ML 100 ML IV SCH (14:09)
[2018-04-04] MEDS: ENOXAPARIN 40 MG/0.4 ML SYRINGE. SQ SCH (21:44)
[2018-04-04] MEDS ORDERED: AMINO ACIDS IV SCH ×12 (22:00)
[2018-04-04] MEDS ORDERED: DEXTROSE 70% IV SCH ×12 (22:00)
[2018-04-04] MEDS ORDERED: TOTAL PARENTERAL NUTRITION IV SCH ×12 (22:00)
[2018-04-04] MEDS ORDERED: [UNRECOGNIZED DRUG - OTHER] IV SCH ×12 (22:00)
[2018-04-05] VITALS (24 sets, daily range): BP systolic 87–152; BP diastolic 47–85
[2018-04-05] MEDS: MEROPENEM 500 MG in IV NORMAL SALINE 50ML 50 ML IV SCH ×4 (00:30→17:39)
[2018-04-05] MEDS: PROPOFOL 100 ML IV PRN ×8 (02:13→22:10)
[2018-04-05] MEDS: DEXMEDETOMIDINE 200 MCG in IV NORMAL SALINE 50ML 48 ML IV PRN ×16 (03:03→22:43)
[2018-04-05 05:17] LABS: BASO % 1 % (0-3); EOS # 0.1 x10^3/uL (0.0-0.7); EOS % 3 % (0-3); HEMOGLOBIN 8.1 g/dL (13.0-17.5); LYMPH # 0.7 x10^3/uL (1.0-4.8); LYMPH % 19 % (24-48); MEAN CORPUSCULAR HEMOGLOBIN 25 pg (25-35); MEAN CORPUSCULAR HGB CONC 32 g/dL (31-37); MEAN CORPUSCULAR VOLUME 78 fL (79-100); MONO # 0.4 x10^3/uL (0.0-1.1); MONO % 11 % (0-9); NEUT # 2.5 x10^3uL (1.8-7.7); NEUT % 66 % (31-73); PLATELET COUNT 267 x10^3/uL (140-400); RED BLOOD COUNT 3.22 x10^6/uL (4.30-5.70); RED CELL DISTRIBUTION WIDTH 17.5 % (11.5-14.5); WHITE BLOOD COUNT 3.8 x10^3/uL (4.0-11.0)
[2018-04-05 05:39] LABS: CALCIUM 8.3 mg/dL (8.5-10.1); CREATININE 0.8 mg/dL (0.7-1.3); GFR 106.5; POTASSIUM 4.2 mmol/L (3.5-5.1)
[2018-04-05] MEDS: OCTREOTIDE 100 MCG/ML VIAL SQ SCH (06:14)
--- NOTE | 2018-04-05 07:11 | PDOC ---
Infectious Disease Note Subjective: Subjective Pt remains sedated, intubated,arousable fever improved on TPN comfortable ROS: ROS Negative except for above. Vital Signs: Vital Signs Vital Signs Date Time Temp Pulse Resp B/P (MAP) Pulse Ox O2 Delivery O2 Flow Rate FiO2 04/05/18 06:00 56 20 98/50 (66) 100 Ventilator 04/05/18 04:00 97.7 97.7 04/05/18 02:13 3.0 Physical Exam: PHYSICAL EXAM intubated, sedated Heent Lt fixed pupil,opens eyes intermitently LUNGS: Breathing nonlabored CV: Regular ABD: Obese, moderately distended ,BS + : Kramer + EXT:edema +, no cyanosis rt central line in place, clean LUE PICC line looks ok Medications: Inpatient Meds: Current Medications Medications (Trade) Dose Ordered Sig/Wil Start Time Stop Time Status Last Admin Dose Admin Acetaminophen (Tylenol Supp) 650 mg PRN Q6HRS PRN 03/30/18 17:15 03/31/18 15:02 650 MG Albuterol Sulfate (Ventolin Neb Soln) 2.5 mg PRN Q4HRS PRN 03/30/18 13:30 04/03/18 08:13 2.5 MG Atropine Sulfate (ATROPINE 0.5mg SYRINGE) 0.5 mg PRN Q5MIN PRN 03/29/18 08:30 Belladonna Alkaloids/Opium (B & O) 1 supp PRN Q12HR PRN 03/29/18 01:45 03/29/18 02:58 1 SUPP Budesonide (Pulmicort) 0.5 mg RTBID 03/26/18 20:00 04/04/18 20:44 0.5 MG Chlorhexidine Gluconate (Peridex) 15 ml BID 03/31/18 21:00 04/04/18 21:44 15 ML Clonidine HCl (Catapres) 0.1 mg PRN Q1HR PRN 03/26/18 16:45 03/27/18 05:28 0.1 MG Dexmedetomidine HCl 200 mcg/ Sodium Chloride 50 ml @ 0 mls/hr CONT PRN 03/29/18 08:30 04/05/18 03:03 8.48 MLS/HR Diazepam (Valium) 5 mg PRN Q2HR PRN 03/29/18 01:45 03/29/18 02:47 5 MG Diphenhydramine HCl (Benadryl) 25 mg PRN Q15MIN PRN 03/26/18 16:45 03/29/18 08:25 25 MG Enoxaparin Sodium (Lovenox 40mg Syringe) 40 mg Q24H 03/26/18 21:00 04/04/18 21:44 40 MG Fentanyl Citrate 30 ml @ 0 mls/hr CONT PRN 03/31/18 11:00 04/05/18 02:13 4.95 MLS/HR Folic Acid (Folic Acid) 1 mg DAILY 03/31/18 09:00 03/31/18 14:18 DC Furosemide (Lasix) 20 mg 1X ONCE 04/02/18 09:30 04/02/18 09:31 DC 04/02/18 09:12 20 MG Haloperidol Lactate (Haldol Inj) 5 mg PRN Q4HRS PRN 03/26/18 16:45 03/31/18 05:20 5 MG Info (CONTRAST GIVEN -- Rx MONITORING) 1 each PRN DAILY PRN 03/31/18 09:15 04/02/18 09:14 DC Info (Tpn Per Pharmacy) 1 each PRN DAILY PRN 03/31/18 14:00 04/04/18 08:43 1 EACH Iohexol (Omnipaque 300 Mg/ml) 75 ml 1X ONCE 03/31/18 10:00 03/31/18 10:04 DC 03/31/18 10:29 75 ML Labetalol HCl (Normodyne Iv Push) 20 mg PRN Q2HR PRN 03/30/18 17:15 03/31/18 10:02 20 MG Linezolid/Dextrose 300 ml @ 300 mls/hr Q12HR 03/30/18 14:00 04/04/18 21:45 300 MLS/HR Lorazepam (Ativan) 2 mg STK-MED ONCE 03/31/18 11:10 04/01/18 09:10 DC Meropenem 500 mg/ Sodium Chloride 50 ml @ 100 mls/hr Q6HRS 03/31/18 18:00 04/05/18 06:15 100 MLS/HR Micafungin Sodium 100 mg/Dextrose 100 ml @ 100 mls/hr Q24H 03/30/18 15:00 04/04/18 14:09 100 MLS/HR Morphine Sulfate (Morphine Sulfate) 2 mg PRN Q2HR PRN 03/27/18 16:45 03/31/18 10:42 2 MG Multi-Ingred Cream/Lotion/Oil/ Oint (Artificial Tears Eye Ointment) 1 rosemary Q12HR 04/02/18 14:00 04/04/18 21:44 1 ROSEMARY Multivitamins (Thera M Plus) 1 tab DAILY 03/31/18 09:00 03/31/18 14:18 DC Multivitamins 10 ml/Thiamine HCl 100 mg/Folic Acid 1 mg/Sodium Chloride 1,011.2 ml @ 100 mls/ hr DAILY 03/27/18 09:00 03/31/18 19:07 UNV Non-Formulary Medication (Albuterol Sulfate (Proair Hfa Inhaler)) 1 puff PRN Q4HRS PRN 03/26/18 16:45 UNV Non-Formulary Medication (Budesonide/ Formoterol Fumarate (Symbicort 160-4.5 Mcg Inhaler)) 2 puff BID 03/26/18 21:00 UNV Octreotide Acetate (SandoSTATIN) 100 mcg Q8HRS 03/31/18 15:30 04/05/18 06:14 100 MCG Olanzapine (ZyPREXA IM) 10 mg PRN Q8HRS PRN 03/30/18 14:00 Ondansetron HCl (Zofran) 4 mg PRN Q6HRS PRN 03/27/18 16:45 03/28/18 02:34 4 MG Pantoprazole Sodium (PROTONIX VIAL for IV PUSH) 40 mg DAILYAC 04/01/18 07:30 04/04/18 07:30 40 MG Pantoprazole Sodium (Protonix) 40 mg DAILYAC 03/31/18 07:30 03/31/18 11:32 DC Piperacillin Sod/ Tazobactam Sod 3.375 gm/Sodium Chloride 50 ml @ 100 mls/hr Q6HRS 03/27/18 16:00 03/31/18 13:38 DC 03/31/18 12:16 100 MLS/HR Potassium Chloride/Sodium Chloride 1,000 ml @ 75 mls/hr [id number] 03/29/18 14:15 04/01/18 13:39 DC 04/01/18 08:47 75 MLS/HR Potassium Chloride (Klor-Con) 40 meq 1X ONCE 03/29/18 13:15 03/29/18 13:16 DC 03/29/18 14:25 40 MEQ Propofol 100 ml @ 0 mls/hr CONT PRN 03/31/18 11:30 04/05/18 04:18 33.8 MLS/HR Sodium Chloride 45 meq/Sodium Acetate 45 meq/ Potassium Chloride 50 meq/ Potassium Phosphate 13.6 mmol/Magnesium Sulfate 10 meq/ Calcium Gluconate 10 meq/ Multivitamins 10 ml/Chromium/ Copper/Manganese/ Seleni/Zn 1 ml/ Folic Acid 1 mg/ Thiamine HCl 100 mg/Total Donna... 1,512 ml @ 63 mls/hr TPN CONT 03/31/18 22:00 04/01/18 21:59 DC 03/31/18 21:41 63 MLS/HR Sodium Chloride 45 meq/Sodium Acetate 45 meq/ Potassium Chloride 70 meq/ Potassium Phosphate 13.6 mmol/Magnesium Sulfate 10 meq/ Calcium Gluconate 10 meq/ Multivitamins 10 ml/Chromium/ Copper/Manganese/ Seleni/Zn 1 ml/ Folic Acid 1 mg/ Thiamine HCl 100 mg/Total Donna... 1,512 ml @ 63 mls/hr TPN CONT 04/03/18 22:00 04/04/18 21:59 DC 04/03/18 21:11 63 MLS/HR Sodium Chloride 60 meq/Sodium Acetate 50 meq/ Potassium Chloride 70 meq/ Potassium Phosphate 13.6 mmol/Magnesium Sulfate 10 meq/ Calcium Gluconate 10 meq/ Multivitamins 10 ml/Chromium/ Copper/Manganese/ Seleni/Zn 1 ml/ Folic Acid 1 mg/ Thiamine HCl 100 mg/Total Donna... 1,512 ml @ 63 mls/hr TPN CONT 04/04/18 22:00 04/05/18 21:59 04/04/18 21:40 63 MLS/HR Succinylcholine Chloride (Anectine) 200 mg 1X ONCE 03/31/18 11:30 03/31/18 11:31 DC Theophylline (Theodur) 300 mg BID 03/26/18 21:00 04/02/18 08:50 DC 03/30/18 08:45 300 MG Thiamine HCl 100 mg/Dextrose 51 ml @ 100 mls/hr DAILY 03/27/18 09:00 03/31/18 09:31 UNV Vecuronium [place] (Norcuron Bolus) 10 mg STK-MED ONCE 03/31/18 11:10 04/01/18 09:10 DC Labs: Lab Laboratory Tests Test 04/04/18 08:00 04/05/18 05:00 O2 Saturation 96 % (92-99) Arterial Blood pH 7.45 (7.35-7.45) Arterial Blood pCO2 at Patient Temp 35 mmHg (35-46) Arterial Blood pO2 at Patient Temp 86 mmHg (75-108) Arterial Blood HCO3 23 mmol/L (21-28) Arterial Blood Base Excess 0 mmol/L (-3-3) FiO2 35 White Blood Count 3.8 x10^3/uL (4.0-11.0) Red Blood Count 3.22 x10^6/uL (4.30-5.70) Hemoglobin 8.1 g/dL (13.0-17.5) Hematocrit 25.0 % (39.0-53.0) Mean Corpuscular Volume 78 fL (79-100) Mean Corpuscular Hemoglobin 25 pg (25-35) Mean Corpuscular Hemoglobin Concent 32 g/dL (31-37) Red Cell Distribution Width 17.5 % (11.5-14.5) Platelet Count 267 x10^3/uL (140-400) Neutrophils (%) (Auto) 66 % (31-73) Lymphocytes (%) (Auto) 19 % (24-48) Monocytes (%) (Auto) 11 % (0-9) Eosinophils (%) (Auto) 3 % (0-3) Basophils (%) (Auto) 1 % (0-3) Neutrophils # (Auto) 2.5 x10^3uL (1.8-7.7) Lymphocytes # (Auto) 0.7 x10^3/uL (1.0-4.8) Monocytes # (Auto) 0.4 x10^3/uL (0.0-1.1) Eosinophils # (Auto) 0.1 x10^3/uL (0.0-0.7) Basophils # (Auto) 0.0 x10^3/uL (0.0-0.2) Sodium Level 140 mmol/L (136-145) Potassium Level 4.2 mmol/L (3.5-5.1) Chloride Level 104 mmol/L (98-107) Carbon Dioxide Level 28 mmol/L (21-32) Anion Gap 8 (6-14) Blood Urea Nitrogen 13 mg/dL (8-26) Creatinine 0.8 mg/dL (0.7-1.3) Estimated GFR (Cockcroft-Gault) 106.5 Glucose Level 149 mg/dL (70-99) Calcium Level 8.3 mg/dL (8.5-10.1) Objective: Assessment: Fever likely from pancreatitis vs other, cult nonrevealing, resolving Leukocytosis resolved now leucopenia Pancreatitis,with worsening changes on ct Encephalopathy, likely medication related ZAIRA - improved Alcoholism with DTs Hypertension Lung infiltrates likely pulm venous congestion Occlusive thrombus Rt Cephalic vein PICC line in LUE on TPN Plan: Plan of Care Cont Merrem; Micafungin and linezolid ( 03/30) BC NGTD GI following Withdrawal precautions Monitor WBC closely, D/W EDIE KNIGHT MD Apr 05, 2018 07:11
[2018-04-05] MEDS: CHLORHEXIDINE 0.12% 15 ML MOUTHWASH. MM SCH ×2 (07:48→21:32)
[2018-04-05] MEDS: MINERAL OIL/PETROLATUM,WHITE OPHTH OINT 3.5GM TUBE. OU SCH ×2 (07:48→21:34)
[2018-04-05] MEDS: PANTOPRAZOLE IV PUSH 40 MG VIAL. IVP SCH (07:48)
[2018-04-05] MEDS: BUDESONIDE 0.5 MG/2 ML NEBU. NEB SCH ×2 (07:55→20:10)
[2018-04-05 08:05] LABS: BASE EXCESS ABG 1 mmol/L (-3-3); HCO3 ABG 25 mmol/L (21-28); PCO2 ABG 37 mmHg (35-46); PO2 ABG 84 mmHg (75-108); SAT O2 ABG 96 % (92-99)
--- NOTE | 2018-04-05 08:14 | RAD ---
AP chest. HISTORY: Respiratory failure AP view was taken of the chest. Heart is upper normal in size. NG tube just enters the stomach. Central line is unchanged. Endotracheal tube is in good position. There is a left pleural effusion with left lower lobe atelectasis or consolidation. IMPRESSION: 1. Little change from the recent study. Electronically signed by: Alton Tolbert MD (04/05/2018 8:11 AM) [facility]
--- NOTE | 2018-04-05 11:03 | PDOC ---
PULMONARY PROGRESS NOTES Subjective intubated 03/31 due to severe agitation remains on AC mode resolved ET secretions Vitals Vital Signs Date Time Temp Pulse Resp B/P (MAP) Pulse Ox O2 Delivery O2 Flow Rate FiO2 04/05/18 10:56 100 Ventilator 04/05/18 10:00 65 20 125/69 (87) 04/05/18 08:00 99.1 99.1 04/05/18 07:46 3.0 Lungs: Other (clear) Cardiovascular: S1 Abdomen: Soft Extremities: Other (1+edema) Skin: Warm Labs Laboratory Tests Test 04/03/18 14:00 04/03/18 17:46 04/04/18 06:20 04/04/18 08:00 Glucose (Fingerstick) 124 mg/dL (70-99) 133 mg/dL (70-99) White Blood Count 5.2 x10^3/uL (4.0-11.0) Red Blood Count 3.20 x10^6/uL (4.30-5.70) Hemoglobin 8.2 g/dL (13.0-17.5) Hematocrit 24.9 % (39.0-53.0) Mean Corpuscular Volume 78 fL (79-100) Mean Corpuscular Hemoglobin 26 pg (25-35) Mean Corpuscular Hemoglobin Concent 33 g/dL (31-37) Red Cell Distribution Width 17.4 % (11.5-14.5) Platelet Count 259 x10^3/uL (140-400) Neutrophils (%) (Auto) 74 % (31-73) Lymphocytes (%) (Auto) 14 % (24-48) Monocytes (%) (Auto) 9 % (0-9) Eosinophils (%) (Auto) 3 % (0-3) Basophils (%) (Auto) 1 % (0-3) Neutrophils # (Auto) 3.8 x10^3uL (1.8-7.7) Lymphocytes # (Auto) 0.7 x10^3/uL (1.0-4.8) Monocytes # (Auto) 0.5 x10^3/uL (0.0-1.1) Eosinophils # (Auto) 0.1 x10^3/uL (0.0-0.7) Basophils # (Auto) 0.0 x10^3/uL (0.0-0.2) Sodium Level 135 mmol/L (136-145) Potassium Level 4.2 mmol/L (3.5-5.1) Chloride Level 100 mmol/L (98-107) Carbon Dioxide Level 28 mmol/L (21-32) Anion Gap 7 (6-14) Blood Urea Nitrogen 14 mg/dL (8-26) Creatinine 0.7 mg/dL (0.7-1.3) Estimated GFR (Cockcroft-Gault) 124.3 Glucose Level 132 mg/dL (70-99) Calcium Level 8.6 mg/dL (8.5-10.1) O2 Saturation 96 % (92-99) Arterial Blood pH 7.45 (7.35-7.45) Arterial Blood pCO2 at Patient Temp 35 mmHg (35-46) Arterial Blood pO2 at Patient Temp 86 mmHg (75-108) Arterial Blood HCO3 23 mmol/L (21-28) Arterial Blood Base Excess 0 mmol/L (-3-3) FiO2 35 Test 04/05/18 05:00 04/05/18 08:00 White Blood Count 3.8 x10^3/uL (4.0-11.0) Red Blood Count 3.22 x10^6/uL (4.30-5.70) Hemoglobin 8.1 g/dL (13.0-17.5) Hematocrit 25.0 % (39.0-53.0) Mean Corpuscular Volume 78 fL (79-100) Mean Corpuscular Hemoglobin 25 pg (25-35) Mean Corpuscular Hemoglobin Concent 32 g/dL (31-37) Red Cell Distribution Width 17.5 % (11.5-14.5) Platelet Count 267 x10^3/uL (140-400) Neutrophils (%) (Auto) 66 % (31-73) Lymphocytes (%) (Auto) 19 % (24-48) Monocytes (%) (Auto) 11 % (0-9) Eosinophils (%) (Auto) 3 % (0-3) Basophils (%) (Auto) 1 % (0-3) Neutrophils # (Auto) 2.5 x10^3uL (1.8-7.7) Lymphocytes # (Auto) 0.7 x10^3/uL (1.0-4.8) Monocytes # (Auto) 0.4 x10^3/uL (0.0-1.1) Eosinophils # (Auto) 0.1 x10^3/uL (0.0-0.7) Basophils # (Auto) 0.0 x10^3/uL (0.0-0.2) Sodium Level 140 mmol/L (136-145) Potassium Level 4.2 mmol/L (3.5-5.1) Chloride Level 104 mmol/L (98-107) Carbon Dioxide Level 28 mmol/L (21-32) Anion Gap 8 (6-14) Blood Urea Nitrogen 13 mg/dL (8-26) Creatinine 0.8 mg/dL (0.7-1.3) Estimated GFR (Cockcroft-Gault) 106.5 Glucose Level 149 mg/dL (70-99) Calcium Level 8.3 mg/dL (8.5-10.1) O2 Saturation 96 % (92-99) Arterial Blood pH 7.45 (7.35-7.45) Arterial Blood pCO2 at Patient Temp 37 mmHg (35-46) Arterial Blood pO2 at Patient Temp 84 mmHg (75-108) Arterial Blood HCO3 25 mmol/L (21-28) Arterial Blood Base Excess 1 mmol/L (-3-3) FiO2 35% vent Laboratory Tests Test 04/05/18 05:00 04/05/18 08:00 White Blood Count 3.8 x10^3/uL (4.0-11.0) Red Blood Count 3.22 x10^6/uL (4.30-5.70) Hemoglobin 8.1 g/dL (13.0-17.5) Hematocrit 25.0 % (39.0-53.0) Mean Corpuscular Volume 78 fL (79-100) Mean Corpuscular Hemoglobin 25 pg (25-35) Mean Corpuscular Hemoglobin Concent 32 g/dL (31-37) Red Cell Distribution Width 17.5 % (11.5-14.5) Platelet Count 267 x10^3/uL (140-400) Neutrophils (%) (Auto) 66 % (31-73) Lymphocytes (%) (Auto) 19 % (24-48) Monocytes (%) (Auto) 11 % (0-9) Eosinophils (%) (Auto) 3 % (0-3) Basophils (%) (Auto) 1 % (0-3) Neutrophils # (Auto) 2.5 x10^3uL (1.8-7.7) Lymphocytes # (Auto) 0.7 x10^3/uL (1.0-4.8) Monocytes # (Auto) 0.4 x10^3/uL (0.0-1.1) Eosinophils # (Auto) 0.1 x10^3/uL (0.0-0.7) Basophils # (Auto) 0.0 x10^3/uL (0.0-0.2) Sodium Level 140 mmol/L (136-145) Potassium Level 4.2 mmol/L (3.5-5.1) Chloride Level 104 mmol/L (98-107) Carbon Dioxide Level 28 mmol/L (21-32) Anion Gap 8 (6-14) Blood Urea Nitrogen 13 mg/dL (8-26) Creatinine 0.8 mg/dL (0.7-1.3) Estimated GFR (Cockcroft-Gault) 106.5 Glucose Level 149 mg/dL (70-99) Calcium Level 8.3 mg/dL (8.5-10.1) O2 Saturation 96 % (92-99) Arterial Blood pH 7.45 (7.35-7.45) Arterial Blood pCO2 at Patient Temp 37 mmHg (35-46) Arterial Blood pO2 at Patient Temp 84 mmHg (75-108) Arterial Blood HCO3 25 mmol/L (21-28) Arterial Blood Base Excess 1 mmol/L (-3-3) FiO2 35% vent Medications Active Scripts Medications Dose Route/Sig Max Daily Dose Days Date Category Diazepam 5 Mg Tablet 5 Mg PO DAILY 03/05/18 Rx Proair Hfa Inhaler (Albuterol Sulfate) 8.5 Gm Hfa.aer.ad 1 Puff INH PRN Q4HRS PRN 03/02/18 Reported Duoneb 0.5-3(2.5) Mg/3 Ml (Albuterol/Ipratropium) 3 Ml Ampul.neb 3 Ml NEB Q2HR PRN 03/02/18 Reported Symbicort 160-4.5 Mcg Inhaler (Budesonide/Formoterol Fumarate) 10.2 Gm Hfa.aer.ad 2 Puff IH BID 08/13/16 Reported Prilosec Otc (Omeprazole Magnesium) 20 Mg Tablet.dr 1 Tab PO DAILY 04/30/16 Reported Theophylline (Theophylline Anhydrous) 400 Mg Tablet.er 300 Mg PO BID 08/20/[address] ABDOMEN 1. Acute pancreatitis. There has been significant progression of peripancreatic stranding and free fluid and there is interval pancreatic enlargement. No focal pancreatic lesion or pseudocyst is seen. 2. Suspected complex free fluid tracking along the anterior inferior pancreatic tail into the left lower quadrant. There is a small amount of additional free fluid throughout the abdomen and pelvis. 3. New small left greater than right pleural effusions with left greater than right lower lobe compressive atelectasis/partial collapse. 4. Stable hypodense lesions within the liver. These are better characterized on the prior exam due to suboptimal contrast on the current study. Nonemergent assessment with a liver protocol CT or MRI is recommended. 5. Mild hepatomegaly and hepatic steatosis. 6. Small hiatal hernia and distal esophageal mucosal thickening. Correlate for esophagitis. Electronically signed by: Eliana Wright MD (03/31/2018 10:56 AM) [facility] Impression . 1. Acute recurrent alcoholic pancreatitis. worsening by ct abdomen/ Suspected complex free fluid tracking along the anterior inferior pancreatic tail into the left lower quadrant. 2. New sepsis with a new fever and elevated white cell count. progression of pancreatitis ? pancreatic abscess or necrotic pancreatitis. 3. Acute Respiratory failure due to above 4. Acute encephalopathy/delirium.now intubated 5. History of asthma. 6. Abnormal chest x-ray with new infiltrate/ RLL effusion, suspect aspiration 7. Acute hypoxic respiratory failure related to acute pancreatitis/ increase WOB Plan . 1. Continue with present AC mode, 40% fio2/ improving fever/sepsis 2. Monitor ABGs and chest x-rays closely. improved effusion 3. will try to minimize sedation and assess MS/ CPAP trial later today 4. Watch for withdrawal symptoms 5. TPN 6. Follow ID recommendation. 7. Follow GI recommendations./ ? Need drain.? another ct abdomen 8. DVT and stress ulcer prophylaxis. 9. prn suction/ prn lasix/ Abx 10. d/w RN/RT KARLA LOVING MD Apr 05, 2018 11:03
--- NOTE | 2018-04-05 11:56 | PDOC ---
GI PROGRESS NOTES Date Date/Time DATE: 04/05/18 TIME: 11:54 Subjective Subjective attempted weaning but still intubated and sedated Objective Vitals Vital Signs Date Time Temp Pulse Resp B/P (MAP) Pulse Ox O2 Delivery O2 Flow Rate FiO2 04/05/18 11:53 18 99 3.0 04/05/18 11:00 73 20 135/75 (95) 99 Ventilator 04/05/18 10:56 100 Ventilator 04/05/18 10:00 65 20 125/69 (87) 99 Ventilator 04/05/18 09:00 55 18 115/67 (83) 99 Ventilator 04/05/18 08:55 100 Ventilator 04/05/18 08:00 Mechanical Ventilator 04/05/18 08:00 99.1 61 18 117/62 (80) 99 Ventilator 99.1 04/05/18 07:55 100 Ventilator 04/05/18 07:46 100 3.0 04/05/18 07:16 100 3.0 04/05/18 07:00 56 18 120/57 (78) 98 Ventilator 04/05/18 06:00 56 20 98/50 (66) 100 Ventilator 04/05/18 05:50 100 Ventilator 04/05/18 05:00 52 20 106/57 (73) 99 Ventilator 04/05/18 04:49 100 Ventilator 04/05/18 04:00 97.7 54 20 108/55 (72) 100 Ventilator 97.7 04/05/18 03:51 Mechanical Ventilator 04/05/18 03:14 100 Ventilator 04/05/18 03:00 56 20 119/72 (88) 100 Ventilator 04/05/18 02:13 100 3.0 04/05/18 02:00 54 18 120/65 (83) 100 Ventilator 04/05/18 01:00 60 18 130/69 (89) 99 Ventilator 04/05/18 00:08 100 Ventilator 04/05/18 00:07 Mechanical Ventilator 04/05/18 00:00 98.2 54 18 132/66 (88) 99 Ventilator 98.2 04/04/18 22:00 46 18 126/69 (88) 100 Ventilator 04/04/18 21:43 100 3.0 04/04/18 21:00 52 18 118/61 (80) 100 Ventilator 04/04/18 20:44 100 Ventilator 04/04/18 20:00 54 18 121/63 (82) 100 Ventilator 04/04/18 20:00 Mechanical Ventilator 04/04/18 19:00 98.4 54 20 119/58 (78) 100 Ventilator 98.4 04/04/18 18:00 59 18 116/57 (76) 100 Ventilator 04/04/18 17:41 100 Ventilator 04/04/18 17:39 20 04/04/18 17:09 23 100 Ventilator 04/04/18 17:00 62 23 121/62 (81) 100 Ventilator 04/04/18 16:00 Mechanical Ventilator 04/04/18 16:00 61 18 123/59 (80) 100 Ventilator 04/04/18 15:59 100 Ventilator 04/04/18 15:00 59 18 141/78 (99) 100 Ventilator 04/04/18 14:07 17 Ventilator 04/04/18 13:39 54 18 110/57 (74) 100 Ventilator 04/04/18 12:26 100 Ventilator 04/04/18 12:13 Mechanical Ventilator 04/04/18 12:09 99.0 60 18 97/46 (63) 100 Ventilator 99.0 Labs Labs Laboratory Tests Test 04/05/18 05:00 04/05/18 08:00 White Blood Count 3.8 x10^3/uL (4.0-11.0) Red Blood Count 3.22 x10^6/uL (4.30-5.70) Hemoglobin 8.1 g/dL (13.0-17.5) Hematocrit 25.0 % (39.0-53.0) Mean Corpuscular Volume 78 fL (79-100) Mean Corpuscular Hemoglobin 25 pg (25-35) Mean Corpuscular Hemoglobin Concent 32 g/dL (31-37) Red Cell Distribution Width 17.5 % (11.5-14.5) Platelet Count 267 x10^3/uL (140-400) Neutrophils (%) (Auto) 66 % (31-73) Lymphocytes (%) (Auto) 19 % (24-48) Monocytes (%) (Auto) 11 % (0-9) Eosinophils (%) (Auto) 3 % (0-3) Basophils (%) (Auto) 1 % (0-3) Neutrophils # (Auto) 2.5 x10^3uL (1.8-7.7) Lymphocytes # (Auto) 0.7 x10^3/uL (1.0-4.8) Monocytes # (Auto) 0.4 x10^3/uL (0.0-1.1) Eosinophils # (Auto) 0.1 x10^3/uL (0.0-0.7) Basophils # (Auto) 0.0 x10^3/uL (0.0-0.2) Sodium Level 140 mmol/L (136-145) Potassium Level 4.2 mmol/L (3.5-5.1) Chloride Level 104 mmol/L (98-107) Carbon Dioxide Level 28 mmol/L (21-32) Anion Gap 8 (6-14) Blood Urea Nitrogen 13 mg/dL (8-26) Creatinine 0.8 mg/dL (0.7-1.3) Estimated GFR (Cockcroft-Gault) 106.5 Glucose Level 149 mg/dL (70-99) Calcium Level 8.3 mg/dL (8.5-10.1) O2 Saturation 96 % (92-99) Arterial Blood pH 7.45 (7.35-7.45) Arterial Blood pCO2 at Patient Temp 37 mmHg (35-46) Arterial Blood pO2 at Patient Temp 84 mmHg (75-108) Arterial Blood HCO3 25 mmol/L (21-28) Arterial Blood Base Excess 1 mmol/L (-3-3) FiO2 35% vent Physical Exam Physical Exam Sedated, intubated chest- clear Cor- RRR abd- mildly distended, decreased bowel sounds Assessment Assessment Laboratory Tests Test 03/26/18 14:00 03/28/18 05:00 Lipase 1739 U/L (73-393) 1922 U/L (73-393) Plan Plan A/P: Recurrent pancreatitis- severe with alcohol withdrawal Leukocytosis, tachycardia Lipase worse. WBC better Plan- supportive care plan repeat CT next week to r/o necrosis since no clear clinically improvement, will d/c octreotide today KOLE CROWE MD Apr 05, 2018 11:56
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
[2018-04-05] MEDS: MICAFUNGIN 100 MG in IV DEXTROSE 5% 100ML 100 ML IV SCH (15:07)
[2018-04-05] MEDS: ENOXAPARIN 40 MG/0.4 ML SYRINGE. SQ SCH (21:33)
[2018-04-05] MEDS ORDERED: TOTAL PARENTERAL NUTRITION IV SCH ×12 (22:00)
[2018-04-05] MEDS ORDERED: DEXTROSE 70% IV SCH ×12 (22:00)
[2018-04-05] MEDS ORDERED: [UNRECOGNIZED DRUG - OTHER] IV SCH ×12 (22:00)
[2018-04-05] MEDS ORDERED: AMINO ACIDS IV SCH ×12 (22:00)
[2018-04-06] VITALS (24 sets, daily range): BP systolic 84–118; BP diastolic 49–68
[2018-04-06] MEDS: DEXMEDETOMIDINE 200 MCG in IV NORMAL SALINE 50ML 48 ML IV PRN ×12 (00:08→22:30)
[2018-04-06] MEDS: MEROPENEM 500 MG in IV NORMAL SALINE 50ML 50 ML IV SCH ×4 (00:16→18:09)
[2018-04-06] MEDS: PROPOFOL 100 ML IV PRN ×8 (00:35→21:45)
[2018-04-06 05:42] LABS: BASO % 1 % (0-3); EOS # 0.1 x10^3/uL (0.0-0.7); EOS % 3 % (0-3); HEMATOCRIT 26.8 % (39.0-53.0); HEMOGLOBIN 8.8 g/dL (13.0-17.5); LYMPH # 1.1 x10^3/uL (1.0-4.8); LYMPH % 21 % (24-48); MEAN CORPUSCULAR HEMOGLOBIN 26 pg (25-35); MEAN CORPUSCULAR HGB CONC 33 g/dL (31-37); MEAN CORPUSCULAR VOLUME 77 fL (79-100); MONO # 0.6 x10^3/uL (0.0-1.1); MONO % 12 % (0-9); NEUT # 3.5 x10^3uL (1.8-7.7); NEUT % 64 % (31-73); PLATELET COUNT 377 x10^3/uL (140-400); RED BLOOD COUNT 3.47 x10^6/uL (4.30-5.70); RED CELL DISTRIBUTION WIDTH 17.4 % (11.5-14.5); WHITE BLOOD COUNT 5.4 x10^3/uL (4.0-11.0)
[2018-04-06 05:57] LABS: CREATININE 0.8 mg/dL (0.7-1.3); GFR 106.5; PHOSPHORUS 4.2 mg/dL (2.6-4.7); POTASSIUM 4.4 mmol/L (3.5-5.1)
[2018-04-06] MEDS: BUDESONIDE 0.5 MG/2 ML NEBU. NEB SCH ×2 (07:35→19:27)
[2018-04-06 07:58] LABS: BASE EXCESS ABG 3 mmol/L (-3-3); HCO3 ABG 26 mmol/L (21-28); PCO2 ABG 38 mmHg (35-46); PO2 ABG 76 mmHg (75-108); SAT O2 ABG 95 % (92-99)
--- NOTE | 2018-04-06 08:06 | PDOC ---
Infectious Disease Note Subjective Subjective Pt remains sedated, intubated,arousable fever improved on TPN comfortable ROS ROS unobtainable Vital Sign Vital Signs Vital Signs Date Time Temp Pulse Resp B/P (MAP) Pulse Ox O2 Delivery O2 Flow Rate FiO2 04/06/18 07:35 99 Ventilator 04/06/18 07:00 99.6 63 18 106/63 (77) 99.6 04/05/18 23:55 3.0 Physical Exam PHYSICAL EXAM intubated, sedated Heent Lt fixed pupil,opens eyes intermittently NECK: supple LUNGS: Breathing nonlabored CV: Regular ABD: Obese, moderately distended ,BS + : Kramer + EXT:edema +, no cyanosis SKIN: no rash rt central line in place, clean Labs Lab Laboratory Tests Test 04/05/18 08:00 04/06/18 00:13 04/06/18 05:33 04/06/18 05:36 O2 Saturation 96 % (92-99) Arterial Blood pH 7.45 (7.35-7.45) Arterial Blood pCO2 at Patient Temp 37 mmHg (35-46) Arterial Blood pO2 at Patient Temp 84 mmHg (75-108) Arterial Blood HCO3 25 mmol/L (21-28) Arterial Blood Base Excess 1 mmol/L (-3-3) FiO2 35% vent Glucose (Fingerstick) 133 mg/dL (70-99) 131 mg/dL (70-99) White Blood Count 5.4 x10^3/uL (4.0-11.0) Red Blood Count 3.47 x10^6/uL (4.30-5.70) Hemoglobin 8.8 g/dL (13.0-17.5) Hematocrit 26.8 % (39.0-53.0) Mean Corpuscular Volume 77 fL (79-100) Mean Corpuscular Hemoglobin 26 pg (25-35) Mean Corpuscular Hemoglobin Concent 33 g/dL (31-37) Red Cell Distribution Width 17.4 % (11.5-14.5) Platelet Count 377 x10^3/uL (140-400) Neutrophils (%) (Auto) 64 % (31-73) Lymphocytes (%) (Auto) 21 % (24-48) Monocytes (%) (Auto) 12 % (0-9) Eosinophils (%) (Auto) 3 % (0-3) Basophils (%) (Auto) 1 % (0-3) Neutrophils # (Auto) 3.5 x10^3uL (1.8-7.7) Lymphocytes # (Auto) 1.1 x10^3/uL (1.0-4.8) Monocytes # (Auto) 0.6 x10^3/uL (0.0-1.1) Eosinophils # (Auto) 0.1 x10^3/uL (0.0-0.7) Basophils # (Auto) 0.0 x10^3/uL (0.0-0.2) Sodium Level 140 mmol/L (136-145) Potassium Level 4.4 mmol/L (3.5-5.1) Chloride Level 104 mmol/L (98-107) Carbon Dioxide Level 30 mmol/L (21-32) Anion Gap 6 (6-14) Blood Urea Nitrogen 15 mg/dL (8-26) Creatinine 0.8 mg/dL (0.7-1.3) Estimated GFR (Cockcroft-Gault) 106.5 Glucose Level 139 mg/dL (70-99) Calcium Level 9.0 mg/dL (8.5-10.1) Phosphorus Level 4.2 mg/dL (2.6-4.7) Magnesium Level 2.0 mg/dL (1.8-2.4) Triglycerides Level 165 mg/dL (0-150) Micro Microbiology 03/31/18 Blood Culture - Final, Complete NO GROWTH AFTER 5 DAYS Objective Assessment Fever likely from pancreatitis/occlusive thrombus vs other, cult nonrevealing, resolving Leukocytosis resolved Pancreatitis,with worsening changes on ct Encephalopathy, likely medication related ZAIRA - improved Alcoholism with DTs Lung infiltrates likely pulm venous congestion Occlusive thrombus Rt Cephalic vein on TPN Plan Plan of Care Add Procalcitonin this am Cont Merrem (03/31) D/c Micafungin and linezolid ( 03/30) with neg cults and a week of treatment BC NGTD GI following Withdrawal precautions Monitor WBC closely, Critically ill D/W FOREST SEXTON MD Apr 06, 2018 08:06
[2018-04-06] MEDS: PANTOPRAZOLE IV PUSH 40 MG VIAL. IVP SCH (08:25)
[2018-04-06] MEDS: MINERAL OIL/PETROLATUM,WHITE OPHTH OINT 3.5GM TUBE. OU SCH ×2 (08:26→21:24)
[2018-04-06] MEDS: CHLORHEXIDINE 0.12% 15 ML MOUTHWASH. MM SCH ×2 (08:26→21:25)
[2018-04-06 08:33] LABS: FIO2 ABG 35
--- NOTE | 2018-04-06 09:11 | PDOC ---
PULMONARY PROGRESS NOTES Subjective intubated 03/31 due to severe agitation remains on AC mode Vitals Vital Signs Date Time Temp Pulse Resp B/P (MAP) Pulse Ox O2 Delivery O2 Flow Rate FiO2 04/06/18 08:00 65 18 107/62 (77) 99 Ventilator 04/06/18 07:00 99.6 99.6 04/05/18 23:55 3.0 Lungs: Other (clear) Cardiovascular: S1 Abdomen: Soft Extremities: Other (1+edema) Skin: Warm Labs Laboratory Tests Test 04/05/18 05:00 04/05/18 08:00 04/06/18 00:13 04/06/18 05:33 White Blood Count 3.8 x10^3/uL (4.0-11.0) Red Blood Count 3.22 x10^6/uL (4.30-5.70) Hemoglobin 8.1 g/dL (13.0-17.5) Hematocrit 25.0 % (39.0-53.0) Mean Corpuscular Volume 78 fL (79-100) Mean Corpuscular Hemoglobin 25 pg (25-35) Mean Corpuscular Hemoglobin Concent 32 g/dL (31-37) Red Cell Distribution Width 17.5 % (11.5-14.5) Platelet Count 267 x10^3/uL (140-400) Neutrophils (%) (Auto) 66 % (31-73) Lymphocytes (%) (Auto) 19 % (24-48) Monocytes (%) (Auto) 11 % (0-9) Eosinophils (%) (Auto) 3 % (0-3) Basophils (%) (Auto) 1 % (0-3) Neutrophils # (Auto) 2.5 x10^3uL (1.8-7.7) Lymphocytes # (Auto) 0.7 x10^3/uL (1.0-4.8) Monocytes # (Auto) 0.4 x10^3/uL (0.0-1.1) Eosinophils # (Auto) 0.1 x10^3/uL (0.0-0.7) Basophils # (Auto) 0.0 x10^3/uL (0.0-0.2) Sodium Level 140 mmol/L (136-145) Potassium Level 4.2 mmol/L (3.5-5.1) Chloride Level 104 mmol/L (98-107) Carbon Dioxide Level 28 mmol/L (21-32) Anion Gap 8 (6-14) Blood Urea Nitrogen 13 mg/dL (8-26) Creatinine 0.8 mg/dL (0.7-1.3) Estimated GFR (Cockcroft-Gault) 106.5 Glucose Level 149 mg/dL (70-99) Calcium Level 8.3 mg/dL (8.5-10.1) O2 Saturation 96 % (92-99) Arterial Blood pH 7.45 (7.35-7.45) Arterial Blood pCO2 at Patient Temp 37 mmHg (35-46) Arterial Blood pO2 at Patient Temp 84 mmHg (75-108) Arterial Blood HCO3 25 mmol/L (21-28) Arterial Blood Base Excess 1 mmol/L (-3-3) FiO2 35% vent Glucose (Fingerstick) 133 mg/dL (70-99) 131 mg/dL (70-99) Test 04/06/18 05:36 04/06/18 07:45 White Blood Count 5.4 x10^3/uL (4.0-11.0) Red Blood Count 3.47 x10^6/uL (4.30-5.70) Hemoglobin 8.8 g/dL (13.0-17.5) Hematocrit 26.8 % (39.0-53.0) Mean Corpuscular Volume 77 fL (79-100) Mean Corpuscular Hemoglobin 26 pg (25-35) Mean Corpuscular Hemoglobin Concent 33 g/dL (31-37) Red Cell Distribution Width 17.4 % (11.5-14.5) Platelet Count 377 x10^3/uL (140-400) Neutrophils (%) (Auto) 64 % (31-73) Lymphocytes (%) (Auto) 21 % (24-48) Monocytes (%) (Auto) 12 % (0-9) Eosinophils (%) (Auto) 3 % (0-3) Basophils (%) (Auto) 1 % (0-3) Neutrophils # (Auto) 3.5 x10^3uL (1.8-7.7) Lymphocytes # (Auto) 1.1 x10^3/uL (1.0-4.8) Monocytes # (Auto) 0.6 x10^3/uL (0.0-1.1) Eosinophils # (Auto) 0.1 x10^3/uL (0.0-0.7) Basophils # (Auto) 0.0 x10^3/uL (0.0-0.2) Sodium Level 140 mmol/L (136-145) Potassium Level 4.4 mmol/L (3.5-5.1) Chloride Level 104 mmol/L (98-107) Carbon Dioxide Level 30 mmol/L (21-32) Anion Gap 6 (6-14) Blood Urea Nitrogen 15 mg/dL (8-26) Creatinine 0.8 mg/dL (0.7-1.3) Estimated GFR (Cockcroft-Gault) 106.5 Glucose Level 139 mg/dL (70-99) Calcium Level 9.0 mg/dL (8.5-10.1) Phosphorus Level 4.2 mg/dL (2.6-4.7) Magnesium Level 2.0 mg/dL (1.8-2.4) Triglycerides Level 165 mg/dL (0-150) O2 Saturation 95 % (92-99) Arterial Blood pH 7.46 (7.35-7.45) Arterial Blood pCO2 at Patient Temp 38 mmHg (35-46) Arterial Blood pO2 at Patient Temp 76 mmHg (75-108) Arterial Blood HCO3 26 mmol/L (21-28) Arterial Blood Base Excess 3 mmol/L (-3-3) FiO2 35 Laboratory Tests Test 04/06/18 00:13 04/06/18 05:33 04/06/18 05:36 04/06/18 07:45 Glucose (Fingerstick) 133 mg/dL (70-99) 131 mg/dL (70-99) White Blood Count 5.4 x10^3/uL (4.0-11.0) Red Blood Count 3.47 x10^6/uL (4.30-5.70) Hemoglobin 8.8 g/dL (13.0-17.5) Hematocrit 26.8 % (39.0-53.0) Mean Corpuscular Volume 77 fL (79-100) Mean Corpuscular Hemoglobin 26 pg (25-35) Mean Corpuscular Hemoglobin Concent 33 g/dL (31-37) Red Cell Distribution Width 17.4 % (11.5-14.5) Platelet Count 377 x10^3/uL (140-400) Neutrophils (%) (Auto) 64 % (31-73) Lymphocytes (%) (Auto) 21 % (24-48) Monocytes (%) (Auto) 12 % (0-9) Eosinophils (%) (Auto) 3 % (0-3) Basophils (%) (Auto) 1 % (0-3) Neutrophils # (Auto) 3.5 x10^3uL (1.8-7.7) Lymphocytes # (Auto) 1.1 x10^3/uL (1.0-4.8) Monocytes # (Auto) 0.6 x10^3/uL (0.0-1.1) Eosinophils # (Auto) 0.1 x10^3/uL (0.0-0.7) Basophils # (Auto) 0.0 x10^3/uL (0.0-0.2) Sodium Level 140 mmol/L (136-145) Potassium Level 4.4 mmol/L (3.5-5.1) Chloride Level 104 mmol/L (98-107) Carbon Dioxide Level 30 mmol/L (21-32) Anion Gap 6 (6-14) Blood Urea Nitrogen 15 mg/dL (8-26) Creatinine 0.8 mg/dL (0.7-1.3) Estimated GFR (Cockcroft-Gault) 106.5 Glucose Level 139 mg/dL (70-99) Calcium Level 9.0 mg/dL (8.5-10.1) Phosphorus Level 4.2 mg/dL (2.6-4.7) Magnesium Level 2.0 mg/dL (1.8-2.4) Triglycerides Level 165 mg/dL (0-150) O2 Saturation 95 % (92-99) Arterial Blood pH 7.46 (7.35-7.45) Arterial Blood pCO2 at Patient Temp 38 mmHg (35-46) Arterial Blood pO2 at Patient Temp 76 mmHg (75-108) Arterial Blood HCO3 26 mmol/L (21-28) Arterial Blood Base Excess 3 mmol/L (-3-3) FiO2 35 Medications Active Scripts Medications Dose Route/Sig Max Daily Dose Days Date Category Diazepam 5 Mg Tablet 5 Mg PO DAILY 03/05/18 Rx Proair Hfa Inhaler (Albuterol Sulfate) 8.5 Gm Hfa.aer.ad 1 Puff INH PRN Q4HRS PRN 03/02/18 Reported Duoneb 0.5-3(2.5) Mg/3 Ml (Albuterol/Ipratropium) 3 Ml Ampul.neb 3 Ml NEB Q2HR PRN 03/02/18 Reported Symbicort 160-4.5 Mcg Inhaler (Budesonide/Formoterol Fumarate) 10.2 Gm Hfa.aer.ad 2 Puff IH BID 08/13/16 Reported Prilosec Otc (Omeprazole Magnesium) 20 Mg Tablet.dr 1 Tab PO DAILY 04/30/16 Reported Theophylline (Theophylline Anhydrous) 400 Mg Tablet.er 300 Mg PO BID 08/20/[address] ABDOMEN 1. Acute pancreatitis. There has been significant progression of peripancreatic stranding and free fluid and there is interval pancreatic enlargement. No focal pancreatic lesion or pseudocyst is seen. 2. Suspected complex free fluid tracking along the anterior inferior pancreatic tail into the left lower quadrant. There is a small amount of additional free fluid throughout the abdomen and pelvis. 3. New small left greater than right pleural effusions with left greater than right lower lobe compressive atelectasis/partial collapse. 4. Stable hypodense lesions within the liver. These are better characterized on the prior exam due to suboptimal contrast on the current study. Nonemergent assessment with a liver protocol CT or MRI is recommended. 5. Mild hepatomegaly and hepatic steatosis. 6. Small hiatal hernia and distal esophageal mucosal thickening. Correlate for esophagitis. Electronically signed by: Eliana Wright MD (03/31/2018 10:56 AM) [facility] Impression . 1. Acute recurrent alcoholic pancreatitis. 2. SEPSIS 3. Acute Respiratory failure due to above 4. Acute encephalopathy/delirium. 5. History of asthma. 6. ABNORMAL CXR Plan . REPEAT CT ABD PENDING WILL CONTINUE SUPPORT ETOH WITHDRAWAL PROTOCOL ANTIBX PER ID NOT READY FOR EXTUBATION CLINICAL STATUS NEEDS TO IMPROVE MAY NOT BE ABLE TO PERFORM A TRIAL, ONCE BETTER WILL EXTUBATE CHASITY THOMAS MD Apr 06, 2018 09:11
[2018-04-06] MEDS: TPN PER PHARMACY MC PRN ×2 (09:52→10:00)
--- NOTE | 2018-04-06 11:14 | PDOC ---
Objective: Objective: Reviewed w/ RN - extubation discussed along w/ possibilities for placement, family has felt unsafe - pt expressed homicidal thoughts, h/o cocaine use. On TPN, IV PPI - octreotide stopped. Last CT A/P 03/31. Weaning attempted, pt mad and bumping RN w/ clif. Vital Signs: Vital Signs Date Time Temp Pulse Resp B/P (MAP) Pulse Ox O2 Delivery O2 Flow Rate FiO2 04/06/18 11:00 66 18 111/62 (78) 99 Ventilator 04/06/18 07:00 99.6 99.6 04/05/18 23:55 3.0 Labs: Laboratory Tests Test 04/06/18 00:13 04/06/18 05:33 04/06/18 05:36 04/06/18 07:45 Glucose (Fingerstick) 133 mg/dL 131 mg/dL White Blood Count 5.4 x10^3/uL Red Blood Count 3.47 x10^6/uL Hemoglobin 8.8 g/dL Hematocrit 26.8 % Mean Corpuscular Volume 77 fL Mean Corpuscular Hemoglobin 26 pg Mean Corpuscular Hemoglobin Concent 33 g/dL Red Cell Distribution Width 17.4 % Platelet Count 377 x10^3/uL Neutrophils (%) (Auto) 64 % Lymphocytes (%) (Auto) 21 % Monocytes (%) (Auto) 12 % Eosinophils (%) (Auto) 3 % Basophils (%) (Auto) 1 % Neutrophils # (Auto) 3.5 x10^3uL Lymphocytes # (Auto) 1.1 x10^3/uL Monocytes # (Auto) 0.6 x10^3/uL Eosinophils # (Auto) 0.1 x10^3/uL Basophils # (Auto) 0.0 x10^3/uL Sodium Level 140 mmol/L Potassium Level 4.4 mmol/L Chloride Level 104 mmol/L Carbon Dioxide Level 30 mmol/L Anion Gap 6 Blood Urea Nitrogen 15 mg/dL Creatinine 0.8 mg/dL Estimated GFR (Cockcroft-Gault) 106.5 Glucose Level 139 mg/dL Calcium Level 9.0 mg/dL Phosphorus Level 4.2 mg/dL Magnesium Level 2.0 mg/dL Triglycerides Level 165 mg/dL Procalcitonin < 0.10 ng/mL O2 Saturation 95 % Arterial Blood pH 7.46 Arterial Blood pCO2 at Patient Temp 38 mmHg Arterial Blood pO2 at Patient Temp 76 mmHg Arterial Blood HCO3 26 mmol/L Arterial Blood Base Excess 3 mmol/L FiO2 35 BLOOD CULTURE Final NO GROWTH AFTER 5 DAYS Imaging: CXR 04/05 IMPRESSION: 1. Little change from the recent study. PE: GEN: intubated LUNGS: vent HEART: RRR ABD: quiet, stable distention NEURO/PSYCH: eyes open, stirring a bit A/P: Alcoholic pancreatitis/withdrawal Psych issues -- Difficult situation - significant agitation/pulling lines last week - has been intubated - family and staff w/ safety concerns. Recheck CT A/P. Continue TPN. MESSI GORE Apr 06, 2018 11:14
[2018-04-06] MEDS: HALOPERIDOL LACTATE 5 MG/ML VIAL. IVP PRN (11:21)
[2018-04-06 11:31] LABS: ALBUMIN 1.9 g/dL (3.4-5.0); DIRECT BILIRUBIN 0.4 mg/dL (0.0-0.2); TOTAL BILIRUBIN 0.5 mg/dL (0.2-1.0); TOTAL PROTEIN 6.7 g/dL (6.4-8.2)
[2018-04-06] MEDS ORDERED: CONTRAST GIVEN. MC PRN (11:45)
[2018-04-06] MEDS ORDERED: IOHEXOL 300 MG/ML 100ML VIAL. IV ONE (11:45)
--- NOTE | 2018-04-06 11:49 | PDOC ---
PROGRESS NOTES Chief Complaint Chief Complaint acute Pancreatitis Alcohol abuse and withdrawal AMS metabolic encephalopathy with alcohol withdrawal Severe agitation with homocide ideation requiring sedation and intubation 03/31 acute hypoxic resp failure h/o Asthma GERD HTN possible sepsis wo clear etiology morbid obesity leucocytosis hepatic lesions on CT History of Present Illness History of Present Illness Pt seen and examined in ICU Dw RN pt is intubated and sedated /600/35% Vitals Vitals Vital Signs Date Time Temp Pulse Resp B/P (MAP) Pulse Ox O2 Delivery O2 Flow Rate FiO2 04/06/18 11:12 93 Ventilator 04/06/18 11:00 66 18 111/62 (78) 04/06/18 07:00 99.6 99.6 04/05/18 23:55 3.0 Physical Exam Physical Exam intubated, sedated Heent Lt fixed pupil,opens eyes intermittently NECK: supple LUNGS: Breathing nonlabored CV: Regular ABD: Obese, moderately distended ,BS + : Kramer + EXT:edema +, no cyanosis SKIN: no rash rt central line in place, clean Heart: Regular rate, Normal S1 Lungs: Other (clear) Abdomen: Soft, No masses Extremities: No cyanosis, No edema Skin: No rashes, No breakdown Labs LABS Laboratory Tests Test 04/06/18 00:13 04/06/18 05:33 04/06/18 05:36 04/06/18 07:45 Glucose (Fingerstick) 133 mg/dL (70-99) 131 mg/dL (70-99) White Blood Count 5.4 x10^3/uL (4.0-11.0) Red Blood Count 3.47 x10^6/uL (4.30-5.70) Hemoglobin 8.8 g/dL (13.0-17.5) Hematocrit 26.8 % (39.0-53.0) Mean Corpuscular Volume 77 fL (79-100) Mean Corpuscular Hemoglobin 26 pg (25-35) Mean Corpuscular Hemoglobin Concent 33 g/dL (31-37) Red Cell Distribution Width 17.4 % (11.5-14.5) Platelet Count 377 x10^3/uL (140-400) Neutrophils (%) (Auto) 64 % (31-73) Lymphocytes (%) (Auto) 21 % (24-48) Monocytes (%) (Auto) 12 % (0-9) Eosinophils (%) (Auto) 3 % (0-3) Basophils (%) (Auto) 1 % (0-3) Neutrophils # (Auto) 3.5 x10^3uL (1.8-7.7) Lymphocytes # (Auto) 1.1 x10^3/uL (1.0-4.8) Monocytes # (Auto) 0.6 x10^3/uL (0.0-1.1) Eosinophils # (Auto) 0.1 x10^3/uL (0.0-0.7) Basophils # (Auto) 0.0 x10^3/uL (0.0-0.2) Sodium Level 140 mmol/L (136-145) Potassium Level 4.4 mmol/L (3.5-5.1) Chloride Level 104 mmol/L (98-107) Carbon Dioxide Level 30 mmol/L (21-32) Anion Gap 6 (6-14) Blood Urea Nitrogen 15 mg/dL (8-26) Creatinine 0.8 mg/dL (0.7-1.3) Estimated GFR (Cockcroft-Gault) 106.5 Glucose Level 139 mg/dL (70-99) Calcium Level 9.0 mg/dL (8.5-10.1) Phosphorus Level 4.2 mg/dL (2.6-4.7) Magnesium Level 2.0 mg/dL (1.8-2.4) Total Bilirubin 0.5 mg/dL (0.2-1.0) Direct Bilirubin 0.4 mg/dL (0.0-0.2) Aspartate Amino Transf (AST/SGOT) 20 U/L (15-37) Alanine Aminotransferase (ALT/SGPT) 22 U/L (16-63) Alkaline Phosphatase 59 U/L (46-116) Total Protein 6.7 g/dL (6.4-8.2) Albumin 1.9 g/dL (3.4-5.0) Triglycerides Level 165 mg/dL (0-150) Lipase 229 U/L (73-393) Procalcitonin < 0.10 ng/mL (0.00-0.10) O2 Saturation 95 % (92-99) Arterial Blood pH 7.46 (7.35-7.45) Arterial Blood pCO2 at Patient Temp 38 mmHg (35-46) Arterial Blood pO2 at Patient Temp 76 mmHg (75-108) Arterial Blood HCO3 26 mmol/L (21-28) Arterial Blood Base Excess 3 mmol/L (-3-3) FiO2 35 Review of Systems Review of Systems pt sedated Assessment and Plan Assessmemt and Plan acute Pancreatitis Alcohol abuse and withdrawal AMS metabolic encephalopathy with alcohol withdrawal Severe agitation with homocide ideation requiring sedation and intubation 03/31 acute hypoxic resp failure h/o Asthma GERD HTN possible sepsis wo clear etiology morbid obesity leucocytosis hepatic lesions on CT Plan: ICU monitoring IV TPN Vent weaning Propofol PRN Kramer to BSD Comment Review of Relevant I have reviewed the following items wali (where applicable) has been applied. Labs Laboratory Tests Test 04/05/18 05:00 04/05/18 08:00 04/06/18 00:13 04/06/18 05:33 White Blood Count 3.8 x10^3/uL (4.0-11.0) Red Blood Count 3.22 x10^6/uL (4.30-5.70) Hemoglobin 8.1 g/dL (13.0-17.5) Hematocrit 25.0 % (39.0-53.0) Mean Corpuscular Volume 78 fL (79-100) Mean Corpuscular Hemoglobin 25 pg (25-35) Mean Corpuscular Hemoglobin Concent 32 g/dL (31-37) Red Cell Distribution Width 17.5 % (11.5-14.5) Platelet Count 267 x10^3/uL (140-400) Neutrophils (%) (Auto) 66 % (31-73) Lymphocytes (%) (Auto) 19 % (24-48) Monocytes (%) (Auto) 11 % (0-9) Eosinophils (%) (Auto) 3 % (0-3) Basophils (%) (Auto) 1 % (0-3) Neutrophils # (Auto) 2.5 x10^3uL (1.8-7.7) Lymphocytes # (Auto) 0.7 x10^3/uL (1.0-4.8) Monocytes # (Auto) 0.4 x10^3/uL (0.0-1.1) Eosinophils # (Auto) 0.1 x10^3/uL (0.0-0.7) Basophils # (Auto) 0.0 x10^3/uL (0.0-0.2) Sodium Level 140 mmol/L (136-145) Potassium Level 4.2 mmol/L (3.5-5.1) Chloride Level 104 mmol/L (98-107) Carbon Dioxide Level 28 mmol/L (21-32) Anion Gap 8 (6-14) Blood Urea Nitrogen 13 mg/dL (8-26) Creatinine 0.8 mg/dL (0.7-1.3) Estimated GFR (Cockcroft-Gault) 106.5 Glucose Level 149 mg/dL (70-99) Calcium Level 8.3 mg/dL (8.5-10.1) O2 Saturation 96 % (92-99) Arterial Blood pH 7.45 (7.35-7.45) Arterial Blood pCO2 at Patient Temp 37 mmHg (35-46) Arterial Blood pO2 at Patient Temp 84 mmHg (75-108) Arterial Blood HCO3 25 mmol/L (21-28) Arterial Blood Base Excess 1 mmol/L (-3-3) FiO2 35% vent Glucose (Fingerstick) 133 mg/dL (70-99) 131 mg/dL (70-99) Test 04/06/18 05:36 04/06/18 07:45 White Blood Count 5.4 x10^3/uL (4.0-11.0) Red Blood Count 3.47 x10^6/uL (4.30-5.70) Hemoglobin 8.8 g/dL (13.0-17.5) Hematocrit 26.8 % (39.0-53.0) Mean Corpuscular Volume 77 fL (79-100) Mean Corpuscular Hemoglobin 26 pg (25-35) Mean Corpuscular Hemoglobin Concent 33 g/dL (31-37) Red Cell Distribution Width 17.4 % (11.5-14.5) Platelet Count 377 x10^3/uL (140-400) Neutrophils (%) (Auto) 64 % (31-73) Lymphocytes (%) (Auto) 21 % (24-48) Monocytes (%) (Auto) 12 % (0-9) Eosinophils (%) (Auto) 3 % (0-3) Basophils (%) (Auto) 1 % (0-3) Neutrophils # (Auto) 3.5 x10^3uL (1.8-7.7) Lymphocytes # (Auto) 1.1 x10^3/uL (1.0-4.8) Monocytes # (Auto) 0.6 x10^3/uL (0.0-1.1) Eosinophils # (Auto) 0.1 x10^3/uL (0.0-0.7) Basophils # (Auto) 0.0 x10^3/uL (0.0-0.2) Sodium Level 140 mmol/L (136-145) Potassium Level 4.4 mmol/L (3.5-5.1) Chloride Level 104 mmol/L (98-107) Carbon Dioxide Level 30 mmol/L (21-32) Anion Gap 6 (6-14) Blood Urea Nitrogen 15 mg/dL (8-26) Creatinine 0.8 mg/dL (0.7-1.3) Estimated GFR (Cockcroft-Gault) 106.5 Glucose Level 139 mg/dL (70-99) Calcium Level 9.0 mg/dL (8.5-10.1) Phosphorus Level 4.2 mg/dL (2.6-4.7) Magnesium Level 2.0 mg/dL (1.8-2.4) Total Bilirubin 0.5 mg/dL (0.2-1.0) Direct Bilirubin 0.4 mg/dL (0.0-0.2) Aspartate Amino Transf (AST/SGOT) 20 U/L (15-37) Alanine Aminotransferase (ALT/SGPT) 22 U/L (16-63) Alkaline Phosphatase 59 U/L (46-116) Total Protein 6.7 g/dL (6.4-8.2) Albumin 1.9 g/dL (3.4-5.0) Triglycerides Level 165 mg/dL (0-150) Lipase 229 U/L (73-393) Procalcitonin < 0.10 ng/mL (0.00-0.10) O2 Saturation 95 % (92-99) Arterial Blood pH 7.46 (7.35-7.45) Arterial Blood pCO2 at Patient Temp 38 mmHg (35-46) Arterial Blood pO2 at Patient Temp 76 mmHg (75-108) Arterial Blood HCO3 26 mmol/L (21-28) Arterial Blood Base Excess 3 mmol/L (-3-3) FiO2 35 Laboratory Tests Test 04/06/18 00:13 04/06/18 05:33 04/06/18 05:36 04/06/18 07:45 Glucose (Fingerstick) 133 mg/dL (70-99) 131 mg/dL (70-99) White Blood Count 5.4 x10^3/uL (4.0-11.0) Red Blood Count 3.47 x10^6/uL (4.30-5.70) Hemoglobin 8.8 g/dL (13.0-17.5) Hematocrit 26.8 % (39.0-53.0) Mean Corpuscular Volume 77 fL (79-100) Mean Corpuscular Hemoglobin 26 pg (25-35) Mean Corpuscular Hemoglobin Concent 33 g/dL (31-37) Red Cell Distribution Width 17.4 % (11.5-14.5) Platelet Count 377 x10^3/uL (140-400) Neutrophils (%) (Auto) 64 % (31-73) Lymphocytes (%) (Auto) 21 % (24-48) Monocytes (%) (Auto) 12 % (0-9) Eosinophils (%) (Auto) 3 % (0-3) Basophils (%) (Auto) 1 % (0-3) Neutrophils # (Auto) 3.5 x10^3uL (1.8-7.7) Lymphocytes # (Auto) 1.1 x10^3/uL (1.0-4.8) Monocytes # (Auto) 0.6 x10^3/uL (0.0-1.1) Eosinophils # (Auto) 0.1 x10^3/uL (0.0-0.7) Basophils # (Auto) 0.0 x10^3/uL (0.0-0.2) Sodium Level 140 mmol/L (136-145) Potassium Level 4.4 mmol/L (3.5-5.1) Chloride Level 104 mmol/L (98-107) Carbon Dioxide Level 30 mmol/L (21-32) Anion Gap 6 (6-14) Blood Urea Nitrogen 15 mg/dL (8-26) Creatinine 0.8 mg/dL (0.7-1.3) Estimated GFR (Cockcroft-Gault) 106.5 Glucose Level 139 mg/dL (70-99) Calcium Level 9.0 mg/dL (8.5-10.1) Phosphorus Level 4.2 mg/dL (2.6-4.7) Magnesium Level 2.0 mg/dL (1.8-2.4) Total Bilirubin 0.5 mg/dL (0.2-1.0) Direct Bilirubin 0.4 mg/dL (0.0-0.2) Aspartate Amino Transf (AST/SGOT) 20 U/L (15-37) Alanine Aminotransferase (ALT/SGPT) 22 U/L (16-63) Alkaline Phosphatase 59 U/L (46-116) Total Protein 6.7 g/dL (6.4-8.2) Albumin 1.9 g/dL (3.4-5.0) Triglycerides Level 165 mg/dL (0-150) Lipase 229 U/L (73-393) Procalcitonin < 0.10 ng/mL (0.00-0.10) O2 Saturation 95 % (92-99) Arterial Blood pH 7.46 (7.35-7.45) Arterial Blood pCO2 at Patient Temp 38 mmHg (35-46) Arterial Blood pO2 at Patient Temp 76 mmHg (75-108) Arterial Blood HCO3 26 mmol/L (21-28) Arterial Blood Base Excess 3 mmol/L (-3-3) FiO2 35 Microbiology 03/31/18 Blood Culture - Final, Complete NO GROWTH AFTER 5 DAYS Medications Current Medications Multivitamins 10 ml/Thiamine HCl 100 mg/Folic Acid 1 mg/Sodium Chloride 1,011.2 ml @ 1,000.088 mls/hr 1X ONCE IV Last administered on 03/26/18at 15:07; Start 03/26/18 at 14:00; Stop 03/26/18 at 15:00; Status DC Ondansetron HCl (Zofran) 4 mg 1X ONCE IV Last administered on 03/26/18at 14:13 ; Start 03/26/18 at 14:00; Stop 03/26/18 at 14:10; Status DC Pantoprazole Sodium (PROTONIX VIAL for IV PUSH) 40 mg 1X ONCE IVP Last administered on 03/26/18at 14:13; Start 03/26/18 at 14:00; Stop 03/26/18 at 14:10 ; Status DC Pantoprazole Sodium (PROTONIX VIAL for IV PUSH) 40 mg STK-MED ONCE IVP ; Start 03/26/18 at 14:10; Stop 03/26/18 at 14:11; Status DC Ondansetron HCl (Zofran) 4 mg STK-MED ONCE .ROUTE ; Start 03/26/18 at 14:10; Stop 03/26/18 at 14:11; Status DC Iohexol (Omnipaque 300 Mg/ml) 75 ml 1X ONCE IV Last administered on 03/26/18at 14:38; Start 03/26/18 at 14:45; Stop 03/26/18 at 14:46; Status DC Iohexol (Omnipaque 300 Mg/ml) 100 ml STK-MED ONCE .ROUTE ; Start 03/26/18 at 14: 38; Stop 03/26/18 at 14:39; Status DC Info (CONTRAST GIVEN -- Rx MONITORING) 1 each PRN DAILY PRN MC SEE COMMENTS; Start 03/26/18 at 14:45; Stop 03/28/18 at 14:44; Status DC Ondansetron HCl (Zofran) 4 mg 1X ONCE IV Last administered on 03/26/18at 15:08 ; Start 03/26/18 at 15:00; Stop 03/26/18 at 15:01; Status DC Morphine Sulfate (Morphine Sulfate) 5 mg 1X ONCE IV Last administered on at 15:09; Start 03/26/18 at 15:00; Stop 03/26/18 at 15:01; Status DC Ondansetron HCl (Zofran) 4 mg PRN Q8HRS PRN IV NAUSEA/VOMITING Last administered on 03/27/18at 12:22; Start 03/26/18 at 15:15; Stop 03/27/18 at 15:14 ; Status DC Morphine Sulfate (Morphine Sulfate) 4 mg PRN Q2HR PRN IV PAIN Last administered on 03/27/18at 15:12; Start 03/26/18 at 15:15; Stop 03/27/18 at 15:14 ; Status DC Multivitamins 10 ml/Thiamine HCl 100 mg/Folic Acid 1 mg/Sodium Chloride 1,011.2 ml @ 100 mls/ hr DAILY IV Last administered on 03/30/18at 07:52; Start at 16:00; Stop 03/30/18 at 19:07; Status DC Lorazepam (Ativan) 2 mg PRN Q1HR PRN IV For CIWA 8-14 Last administered on 03/26at 15:59; Start 03/26/18 at 15:15; Stop 03/26/18 at 16:43; Status DC Sodium Chloride 1,000 ml @ 125 mls/hr 1X ONCE IV Last administered on at 02:10; Start 03/26/18 at 15:15; Stop 03/26/18 at 23:14; Status DC Pantoprazole Sodium (PROTONIX VIAL for IV PUSH) 40 mg DAILYAC IVP Last administered on 03/30/18at 07:52; Start 03/27/18 at 07:30; Stop 03/30/18 at 10:52 ; Status DC Multivitamins 10 ml/Thiamine HCl 100 mg/Folic Acid 1 mg/Sodium Chloride 1,011.2 ml @ 100 mls/ hr DAILY IV ; Start 03/27/18 at 09:00; Stop 03/31/18 at 19:07; Status UNV Multivitamins (Thera M Plus) 1 tab DAILY PO ; Start 03/31/18 at 09:00; Stop at 14:18; Status DC Folic Acid (Folic Acid) 1 mg DAILY PO ; Start 03/31/18 at 09:00; Stop 03/31/18 at 14:18; Status DC Thiamine HCl 100 mg/Dextrose 51 ml @ 100 mls/hr DAILY IV ; Start 03/27/18 at 09 :00; Stop 03/31/18 at 09:31; Status UNV Lorazepam (Ativan) 2 mg Q6H PO Last administered on 03/26/18at 22:19; Start at 17:00; Stop 03/27/18 at 01:47; Status DC Lorazepam (Ativan) 4 mg PRN Q1HR PRN PO For CIWA 8-14; Start 03/26/18 at 16:45 Lorazepam (Ativan) 2 mg PRN Q1HR PRN IV For CIWA 8-14 Last administered on 04/06at 11:21; Start 03/26/18 at 16:45 Lorazepam (Ativan) 4 mg PRN Q1HR PRN IV For CIWA 15 or greater Last administered on 04/03/18at 00:29; Start 03/26/18 at 16:45 Haloperidol Lactate (Haldol Inj) 5 mg PRN Q4HRS PRN IVP Hallucinatns,Confusn, Delirium Last administered on 04/06/18at 11:21; Start 03/26/18 at 16:45 Diphenhydramine HCl (Benadryl) 25 mg PRN Q15MIN PRN IVP EPS symptoms 2'Haldol admin Last administered on 03/29/18at 08:25; Start 03/26/18 at 16:45 Clonidine HCl (Catapres) 0.1 mg PRN Q1HR PRN PO SBP > 180 or DBP > 100, MRX3 Last administered on 03/27/18at 05:28; Start 03/26/18 at 16:45 Lorazepam (Ativan) 2 mg PRN Q15MIN PRN IV ; Start 03/26/18 at 16:45; Status UNV Lorazepam (Ativan) 4 mg PRN Q15MIN PRN IV ; Start 03/26/18 at 16:45; Status UNV Pantoprazole Sodium (PROTONIX VIAL for IV PUSH) 40 mg DAILYAC IVP ; Start at 07:30; Status UNV Enoxaparin Sodium (Lovenox 40mg Syringe) 40 mg Q24H SQ Last administered on at 21:33; Start 03/26/18 at 21:00 Albuterol Sulfate (Ventolin Neb Soln) 2.5 mg PRN Q2HRS PRN NEB SHORTNESS OF BREATH Last administered on 03/29/18at 04:12; Start 03/26/18 at 17:00; Stop 03/30 at 13:29; Status DC Non-Formulary Medication (Albuterol Sulfate (Proair Hfa Inhaler)) 1 puff PRN Q4HRS PRN INH SHORTNESS OF BREATH; Start 03/26/18 at 16:45; Status UNV Non-Formulary Medication (Budesonide/ Formoterol Fumarate (Symbicort 160-4.5 Mcg Inhaler)) 2 puff BID IH ; Start 03/26/18 at 21:00; Status UNV Theophylline (Theodur) 300 mg BID PO Last administered on 03/30/18at 08:45; Start 03/26/18 at 21:00; Stop 04/02/18 at 08:50; Status DC Budesonide (Pulmicort) 0.5 mg RTBID NEB Last administered on 04/06/18at 07:35; Start 03/26/18 at 20:00 Albuterol Sulfate (Ventolin Neb Soln) 2.5 mg RTQID NEB Last administered on at 12:28; Start 03/26/18 at 20:00; Stop 03/30/18 at 13:24; Status DC Sodium Chloride 1,000 ml @ 1,000 mls/hr 1X ONCE IV Last administered on at 12:23; Start 03/27/18 at 12:15; Stop 03/27/18 at 13:14; Status DC Sodium Chloride 1,000 ml @ 1,000 mls/hr 1X ONCE IV Last administered on at 13:05; Start 03/27/18 at 12:15; Stop 03/27/18 at 13:14; Status DC Sodium Chloride 1,000 ml @ 1,000 mls/hr 1X ONCE IV Last administered on at 14:11; Start 03/27/18 at 12:15; Stop 03/27/18 at 13:14; Status DC Sodium Chloride 136 ml @ 500 mls/hr 1X ONCE IV Last administered on at 12:15; Start 03/27/18 at 12:15; Stop 03/27/18 at 12:31; Status DC Piperacillin Sod/ Tazobactam Sod 3.375 gm/Sodium Chloride 50 ml @ 100 mls/hr Q6HRS IV Last administered on 03/31/18at 12:16; Start 03/27/18 at 16:00; Stop at 13:38; Status DC Morphine Sulfate (Morphine Sulfate) 2 mg PRN Q2HR PRN IV PAIN Last administered on 03/31/18at 10:42; Start 03/27/18 at 16:45 Ondansetron HCl (Zofran) 4 mg PRN Q6HRS PRN IV NAUSEA/VOMITING Last administered on 03/28/18at 02:34; Start 03/27/18 at 16:45 Sodium Chloride 1,000 ml @ 125 mls/hr Q8H IV Last administered on 03/29/18at 10 :14; Start 03/27/18 at 17:45; Stop 03/29/18 at 14:21; Status DC Diazepam (Valium) 5 mg PRN Q2HR PRN PO Agitation/Alcohol withdraw Last administered on 03/29/18at 02:47; Start 03/29/18 at 01:45 Belladonna Alkaloids/Opium (B & O) 1 supp PRN Q12HR PRN [place] BLADDER SPASM Last administered on 03/29/18at 02:58; Start 03/29/18 at 01:45 Dexmedetomidine HCl 200 mcg/ Sodium Chloride 50 ml @ 0 mls/hr CONT PRN IV PER PROTOCOL Last administered on 04/06/18at 10:16; Start 03/29/18 at 08:30 Sodium Chloride 500 ml @ 500 mls/hr 1X PRN PRN IV SEE COMMENTS; Start at 08:30 Atropine Sulfate (ATROPINE 0.5mg SYRINGE) 0.5 mg PRN Q5MIN PRN IV SEE COMMENTS ; Start 03/29/18 at 08:30 Potassium Chloride (Klor-Con) 40 meq 1X ONCE PO Last administered on at 14:25; Start 03/29/18 at 13:15; Stop 03/29/18 at 13:16; Status DC Potassium Chloride/Sodium Chloride 1,000 ml @ 75 mls/hr [id number] IV Last administered on 04/01/18at 08:47; Start 03/29/18 at 14:15; Stop 04/01/18 at 13:39 ; Status DC Pantoprazole Sodium (Protonix) 40 mg DAILYAC PO ; Start 03/31/18 at 07:30; Stop 03/31/18 at 11:32; Status DC Albuterol Sulfate (Ventolin Neb Soln) 2.5 mg PRN Q4HRS PRN NEB WHEEZING Last administered on 04/03/18at 08:13; Start 03/30/18 at 13:30 Micafungin Sodium 100 mg/Dextrose 100 ml @ 100 mls/hr Q24H IV Last administered on 04/05/18at 15:07; Start 03/30/18 at 15:00; Stop 04/06/18 at 08:05 ; Status DC Linezolid/Dextrose 300 ml @ 300 mls/hr Q12HR IV Last administered on at 21:33; Start 03/30/18 at 14:00; Stop 04/06/18 at 08:05; Status DC Olanzapine (ZyPREXA IM) 10 mg PRN Q8HRS PRN IM ANXIETY / AGITATION; Start 03/30 at 14:00 Labetalol HCl (Normodyne Iv Push) 20 mg PRN Q2HR PRN IVP GIVE FOR SBP > 180 DBP >110 Last administered on 03/31/18at 10:02; Start 03/30/18 at 17:15 Acetaminophen (Tylenol Supp) 650 mg PRN Q6HRS PRN [place] MILD PAIN / TEMP Last administered on 03/31/18at 15:02; Start 03/30/18 at 17:15 Iohexol (Omnipaque 300 Mg/ml) 75 ml 1X ONCE IV ; Start 03/31/18 at 09:15; Stop 03/31/18 at 09:16; Status DC Info (CONTRAST GIVEN -- Rx MONITORING) 1 each PRN DAILY PRN MC SEE COMMENTS; Start 03/31/18 at 09:15; Stop 04/02/18 at 09:14; Status DC Iohexol (Omnipaque 300 Mg/ml) 75 ml 1X ONCE IV Last administered on 03/31/18at 10:29; Start 03/31/18 at 10:00; Stop 03/31/18 at 10:04; Status DC Fentanyl Citrate 30 ml @ 0 mls/hr CONT PRN IV PER PROTOCOL Last administered on 04/06/18at 05:29; Start 03/31/18 at 11:00 Lorazepam (Ativan) 2 mg STK-MED ONCE .ROUTE ; Start 03/31/18 at 11:02; Stop at 11:03; Status DC Vecuronium [place] (Norcuron Bolus) 10 mg STK-MED ONCE IV ; Start 03/31/18 at 11 :05; Stop 03/31/18 at 11:06; Status DC Propofol 100 ml @ As Directed STK-MED ONCE IV ; Start 03/31/18 at 11:08; Stop 03/31/18 at 11:09; Status DC Vecuronium [place] (Norcuron Bolus) 10 mg STK-MED ONCE IV ; Start 03/31/18 at 11 :08; Stop 03/31/18 at 11:10; Status DC Succinylcholine Chloride (Anectine) 200 mg 1X ONCE IV ; Start 03/31/18 at 11:30 ; Stop 03/31/18 at 11:31; Status DC Propofol 100 ml @ 0 mls/hr CONT PRN IV PER PROTOCOL Last administered on 11:22; Start 03/31/18 at 11:30 Chlorhexidine Gluconate (Peridex) 15 ml BID MM Last administered on 04/06/18 08:26; Start 03/31/18 at 21:00 Pantoprazole Sodium (PROTONIX VIAL for IV PUSH) 40 mg DAILYAC IVP Last administered on 04/06/18 08:25; Start 04/01/18 at 07:30 Vecuronium [place] (Norcuron Bolus) 10 mg 1X ONCE IV Last administered on 03/31 11:58; Start 03/31/18 at 12:00; Stop 03/31/18 at 12:01; Status DC Meropenem 500 mg/ Sodium Chloride 50 ml @ 100 mls/hr Q6HRS IV Last administered on 04/06/18 11:23; Start 03/31/18 at 18:00 Info (Tpn Per Pharmacy) 1 each PRN DAILY PRN MC SEE COMMENTS Last administered on 04/06/18 10:00; Start 03/31/18 at 14:00 Sodium Chloride 45 meq/Sodium Acetate 45 meq/ Potassium Chloride 50 meq/ Potassium Phosphate 13.6 mmol/Magnesium Sulfate 10 meq/ Calcium Gluconate 10 meq / Multivitamins 10 ml/Chromium/ Copper/Manganese/ Seleni/Zn 1 ml/ Folic Acid 1 mg/ Thiamine HCl 100 mg/Total Donna... 1,512 ml @ 63 mls/hr TPN CONT IV Last administered on 03/31/18 21:41; Start 03/31/18 at 22:00; Stop 04/01/18 at 21:59; Status DC Octreotide Acetate (SandoSTATIN) 100 mcg Q8HRS SQ Last administered on at 06:14; Start 03/31/18 at 15:30; Stop 04/05/18 at 11:58; Status DC Vecuronium [place] (Norcuron Bolus) 10 mg STK-MED ONCE IV ; Start 03/31/18 at 11 :10; Stop 04/01/18 at 09:10; Status DC Lorazepam (Ativan) 2 mg STK-MED ONCE .ROUTE ; Start 03/31/18 at 11:10; Stop at 09:10; Status DC Sodium Chloride 45 meq/Sodium Acetate 45 meq/ Potassium Chloride 70 meq/ Potassium Phosphate 13.6 mmol/Magnesium Sulfate 10 meq/ Calcium Gluconate 10 meq / Multivitamins 10 ml/Chromium/ Copper/Manganese/ Seleni/Zn 1 ml/ Folic Acid 1 mg/ Thiamine HCl 100 mg/Total Donna... 1,512 ml @ 63 mls/hr TPN CONT IV Last administered on 04/01/18at 22:35; Start 04/01/18 at 22:00; Stop 04/02/18 at 21:59; Status DC Furosemide (Lasix) 20 mg 1X ONCE IVP Last administered on 04/02/18at 09:12; Start 04/02/18 at 09:30; Stop 04/02/18 at 09:31; Status DC Sodium Chloride 45 meq/Sodium Acetate 45 meq/ Potassium Chloride 70 meq/ Potassium Phosphate 13.6 mmol/Magnesium Sulfate 10 meq/ Calcium Gluconate 10 meq / Multivitamins 10 ml/Chromium/ Copper/Manganese/ Seleni/Zn 1 ml/ Folic Acid 1 mg/ Thiamine HCl 100 mg/Total Donna... 1,512 ml @ 63 mls/hr TPN CONT IV Last administered on 04/02/18at 22:18; Start 04/02/18 at 22:00; Stop 04/03/18 at 21:59; Status DC Multi-Ingred Cream/Lotion/Oil/ Oint (Artificial Tears Eye Ointment) 1 rosemary Q12HR OU Last administered on 04/06/18at 08:26; Start 04/02/18 at 14:00 Sodium Chloride 45 meq/Sodium Acetate 45 meq/ Potassium Chloride 70 meq/ Potassium Phosphate 13.6 mmol/Magnesium Sulfate 10 meq/ Calcium Gluconate 10 meq / Multivitamins 10 ml/Chromium/ Copper/Manganese/ Seleni/Zn 1 ml/ Folic Acid 1 mg/ Thiamine HCl 100 mg/Total Donna... 1,512 ml @ 63 mls/hr TPN CONT IV Last administered on 04/03/18at 21:11; Start 04/03/18 at 22:00; Stop 04/04/18 at 21:59; Status DC Sodium Chloride 60 meq/Sodium Acetate 50 meq/ Potassium Chloride 70 meq/ Potassium Phosphate 13.6 mmol/Magnesium Sulfate 10 meq/ Calcium Gluconate 10 meq / Multivitamins 10 ml/Chromium/ Copper/Manganese/ Seleni/Zn 1 ml/ Folic Acid 1 mg/ Thiamine HCl 100 mg/Total Donna... 1,512 ml @ 63 mls/hr TPN CONT IV Last administered on 04/04/18at 21:40; Start 04/04/18 at 22:00; Stop 04/05/18 at 21:59; Status DC Sodium Chloride 50 meq/Sodium Acetate 50 meq/ Potassium Chloride 70 meq/ Potassium Phosphate 13.6 mmol/Magnesium Sulfate 10 meq/ Calcium Gluconate 10 meq / Multivitamins 10 ml/Chromium/ Copper/Manganese/ Seleni/Zn 1 ml/ Folic Acid 1 mg/ Thiamine HCl 100 mg/Total Donna... 1,512 ml @ 63 mls/hr TPN CONT IV Last administered on 04/05/18at 21:34; Start 04/05/18 at 22:00; Stop 04/06/18 at 21:59 Sodium Chloride 50 meq/Sodium Acetate 50 meq/ Potassium Chloride 70 meq/ Potassium Phosphate 13.6 mmol/Magnesium Sulfate 10 meq/ Calcium Gluconate 10 meq / Multivitamins 10 ml/Chromium/ Copper/Manganese/ Seleni/Zn 1 ml/ Folic Acid 1 mg/ Thiamine HCl 100 mg/Total Donna... 1,512 ml @ 63 mls/hr TPN CONT IV ; Start 04/06/18 at 22:00; Stop 04/07/18 at 21:59 Iohexol (Omnipaque 300 Mg/ml) 75 ml 1X ONCE IV ; Start 04/06/18 at 11:45; Stop 04/06/18 at 11:46 Info (CONTRAST GIVEN -- Rx MONITORING) 1 each PRN DAILY PRN MC SEE COMMENTS; Start 04/06/18 at 11:45; Stop 04/08/18 at 11:44 Active Scripts Active Diazepam 5 Mg Tablet 5 Mg PO DAILY Reported Proair Hfa Inhaler (Albuterol Sulfate) 8.5 Gm Hfa.aer.ad 1 Puff INH PRN Q4HRS PRN Duoneb 0.5-3(2.5) Mg/3 Ml (Albuterol/Ipratropium) 3 Ml Ampul.neb 3 Ml NEB Q2HR PRN Symbicort 160-4.5 Mcg Inhaler (Budesonide/Formoterol Fumarate) 10.2 Gm Hfa.aer.ad 2 Puff IH BID Prilosec Otc (Omeprazole Magnesium) 20 Mg Tablet.dr 1 Tab PO DAILY Theophylline (Theophylline Anhydrous) 400 Mg Tablet.er 300 Mg PO BID Vitals/I & O Vital Sign - Last 24 Hours 04/05/18 04/05/18 04/05/18 04/05/18 11:53 12:00 12:00 12:23 Temp 99.4 99.4 Pulse 61 Resp 18 20 18 B/P (MAP) 143/76 (98) Pulse Ox 99 99 O2 Delivery Mechanical Ventilator Ventilator O2 Flow Rate 3.0 04/05/18 04/05/18 04/05/18 04/05/18 12:55 13:00 14:00 15:00 Pulse 53 50 56 Resp 18 18 18 B/P (MAP) 150/85 (106) 150/80 (103) 152/83 (106) Pulse Ox 100 100 100 100 O2 Delivery Ventilator Ventilator Ventilator Ventilator 04/05/18 04/05/18 04/05/18 04/05/18 15:19 16:00 16:00 17:00 Pulse 58 61 Resp 18 18 B/P (MAP) 152/83 (106) 145/75 (98) Pulse Ox 100 100 100 O2 Delivery Ventilator Ventilator Mechanical Ventilator Ventilator 04/05/18 04/05/18 04/05/18 04/05/18 17:17 17:40 18:00 19:00 Temp 98.7 98.7 Pulse 68 63 Resp 18 18 17 B/P (MAP) 145/78 (100) 143/84 (103) Pulse Ox 100 100 100 99 O2 Delivery Ventilator Ventilator Ventilator Ventilator 04/05/18 04/05/18 04/05/18 04/05/18 20:00 20:00 20:05 21:00 Pulse 70 64 Resp 21 18 B/P (MAP) 104/62 (76) 87/52 (64) Pulse Ox 100 100 100 O2 Delivery Mechanical Ventilator Ventilator Ventilator Ventilator 04/05/18 04/05/18 04/05/18 04/05/18 22:00 23:00 23:03 23:25 Temp 98.5 98.5 Pulse 65 66 Resp 18 18 18 B/P (MAP) 87/49 (62) 87/47 (60) Pulse Ox 100 100 100 100 O2 Delivery Ventilator Ventilator Ventilator O2 Flow Rate 3.0 04/05/18 04/06/18 04/06/18 04/06/18 23:55 00:00 00:00 01:00 Pulse 60 62 Resp 18 18 B/P (MAP) 91/49 (63) 90/52 (65) Pulse Ox 99 100 100 O2 Delivery Ventilator Ventilator Mechanical Ventilator Ventilator O2 Flow Rate 3.0 04/06/18 04/06/18 04/06/18 04/06/18 01:46 02:00 03:00 03:37 Pulse 65 65 Resp 18 18 B/P (MAP) 91/50 (64) 94/51 (65) Pulse Ox 100 100 100 100 O2 Delivery Ventilator Ventilator Ventilator Ventilator 04/06/18 04/06/18 04/06/18 04/06/18 04:00 04:00 05:00 05:29 Temp 98.5 98.5 Pulse 62 60 Resp 18 18 B/P (MAP) 90/54 (66) 84/50 (61) Pulse Ox 100 100 100 O2 Delivery Ventilator Mechanical Ventilator Ventilator Ventilator 04/06/18 04/06/18 04/06/18 04/06/18 05:56 06:15 07:00 07:35 Temp 99.6 99.6 Pulse 60 63 Resp 18 18 B/P (MAP) 103/58 (73) 106/63 (77) Pulse Ox 100 99 99 99 O2 Delivery Ventilator Ventilator Ventilator Ventilator 04/06/18 04/06/18 04/06/18 04/06/18 08:00 08:00 09:00 10:00 Pulse 65 66 66 Resp 18 18 18 B/P (MAP) 107/62 (77) 92/60 (71) 107/62 (77) Pulse Ox 99 99 99 O2 Delivery Mechanical Ventilator Ventilator Ventilator Ventilator 04/06/18 04/06/18 11:00 11:12 Pulse 66 Resp 18 B/P (MAP) 111/62 (78) Pulse Ox 99 93 O2 Delivery Ventilator Ventilator Intake and Output 04/05/18 04/05/18 04/06/18 15:00 23:00 07:00 Intake Total 350 ml 2011.55 ml 1968 ml Output Total 1350 ml 1975 ml 650 ml Balance -1000 ml 36.55 ml 1318 ml CASTLE,NIAL K III DO Apr 06, 2018 11:49
--- NOTE | 2018-04-06 14:07 | RAD ---
CT of the head without contrast, 04/06/2018: HISTORY: Seizures, ethanol The ventricles are within normal limits in size. There is no shift of the midline structures. There is no evidence of acute intracranial hemorrhage or mass effect. There is mild mucosal thickening in the ethmoid sinuses. There is dependent debris in the right sphenoid sinus. There appears to be a small amount of dependent fluid in the right maxillary sinus. IMPRESSION: 1. No acute intracranial abnormality is detected. 2. Paranasal sinusitis. PQRS Compliance Statement: One or more of the following individualized dose reduction techniques were utilized for this examination: 1. Automated exposure control 2. Adjustment of the mA and/or kV according to patient size 3. Use of iterative reconstruction technique Electronically signed by: Esteban Hall MD (04/06/2018 2:03 PM) [facility]
--- NOTE | 2018-04-06 16:23 | RAD ---
CT of the abdomen and pelvis with contrast, 04/06/2018: HISTORY: Pancreatitis, possible pancreatic necrosis Multidetector CT imaging was performed following an IV bolus injection of iodinated contrast material. No oral contrast material was administered for this study. Comparison is made to an exam from 03/31/2018. Streak artifacts arising from the patient's arms degrade image quality. There are ongoing small bilateral pleural effusions with moderate associated bilateral lower lobe atelectasis. The atelectasis has worsened. The heart is enlarged. There is an unchanged low-density lesion in the left lobe of the liver. The gallbladder is somewhat distended. No dense gallstones are seen. The spleen is enlarged. It appears to be increased slightly in size since the previous study. There is extensive peripancreatic inflammation with lack of definition of the pancreatic margins. The underlying pancreas does appear to enhance, however, this is not clearly defined due to the streak artifacts. Fluid collections extending into the mesentery and left anterior pararenal space are similar to those seen on the previous exam. No discrete drainable abscess or pseudocyst is seen. There is a small volume of ascites. This has redistributed slightly with increasing ascites in the pelvis and a lesser amount of ascites in the right paracolic gutter. The bowel loops are not dilated. An NG tube extends to the level of the gastric cardia. A Kramer catheter is in place in the bladder. No free air is evident in the abdomen or pelvis. IMPRESSION: 1. Moderate peripancreatic inflammation extending into the mesentery and left anterior pararenal space, similar to that seen on 03/31/2018. 2. Stable small volume of ascites. 3. Small ongoing bilateral pleural effusions with increasing bilateral lower lobe atelectasis. 4. Splenomegaly which has worsened slightly. 5. Distended gallbladder. PQRS Compliance Statement: One or more of the following individualized dose reduction techniques were utilized for this examination: 1. Automated exposure control 2. Adjustment of the mA and/or kV according to patient size 3. Use of iterative reconstruction technique Electronically signed by: Esteban Hall MD (04/06/2018 4:19 PM) [facility]
[2018-04-06] MEDS: ENOXAPARIN 40 MG/0.4 ML SYRINGE. SQ SCH (21:25)
[2018-04-06] MEDS ORDERED: TOTAL PARENTERAL NUTRITION IV SCH ×12 (22:00)
[2018-04-06] MEDS ORDERED: DEXTROSE 70% IV SCH ×12 (22:00)
[2018-04-06] MEDS ORDERED: AMINO ACIDS IV SCH ×12 (22:00)
[2018-04-06] MEDS ORDERED: [UNRECOGNIZED DRUG - OTHER] IV SCH ×12 (22:00)
[2018-04-07] VITALS (24 sets, daily range): BP systolic 87–133; BP diastolic 47–69
[2018-04-07] MEDS: MEROPENEM 500 MG in IV NORMAL SALINE 50ML 50 ML IV SCH ×4 (00:16→17:25)
[2018-04-07] MEDS: DEXMEDETOMIDINE 200 MCG in IV NORMAL SALINE 50ML 48 ML IV PRN ×9 (00:16→21:30)
[2018-04-07] MEDS: PROPOFOL 100 ML IV PRN ×7 (01:43→23:13)
[2018-04-07 06:28] LABS: BASO # 0.1 x10^3/uL (0.0-0.2); BASO % 1 % (0-3); EOS # 0.2 x10^3/uL (0.0-0.7); EOS % 3 % (0-3); HEMATOCRIT 25.5 % (39.0-53.0); HEMOGLOBIN 8.5 g/dL (13.0-17.5); LYMPH # 1.4 x10^3/uL (1.0-4.8); LYMPH % 24 % (24-48); MEAN CORPUSCULAR HEMOGLOBIN 26 pg (25-35); MEAN CORPUSCULAR HGB CONC 33 g/dL (31-37); MEAN CORPUSCULAR VOLUME 77 fL (79-100); MONO # 0.6 x10^3/uL (0.0-1.1); MONO % 11 % (0-9); NEUT # 3.4 x10^3uL (1.8-7.7); NEUT % 61 % (31-73); PLATELET COUNT 435 x10^3/uL (140-400); RED BLOOD COUNT 3.31 x10^6/uL (4.30-5.70); RED CELL DISTRIBUTION WIDTH 17.2 % (11.5-14.5); WHITE BLOOD COUNT 5.6 x10^3/uL (4.0-11.0)
[2018-04-07 06:36] LABS: ALBUMIN/GLOBULIN RATIO 0.4 (1.0-1.7); CALCIUM 9.1 mg/dL (8.5-10.1); CREATININE 0.7 mg/dL (0.7-1.3); GFR 124.3; POTASSIUM 4.5 mmol/L (3.5-5.1); TOTAL BILIRUBIN 0.5 mg/dL (0.2-1.0)
--- NOTE | 2018-04-07 07:25 | PDOC ---
Infectious Disease Note Subjective Subjective Pt remains sedated, intubated,arousable fever improved on TPN comfortable ROS ROS unobtainable Vital Sign Vital Signs Vital Signs Date Time Temp Pulse Resp B/P (MAP) Pulse Ox O2 Delivery O2 Flow Rate FiO2 04/07/18 07:00 55 18 117/64 (81) 99 Ventilator 04/07/18 04:00 99.4 99.4 Physical Exam PHYSICAL EXAM intubated, sedated - lightly Heent Lt fixed pupil,opens eyes intermittently NECK: supple LUNGS: Breathing nonlabored CV: Regular ABD: Obese, moderately distended ,BS + : Kramer + EXT:edema +, no cyanosis SKIN: no rash rt central line in place, clean Labs Lab Laboratory Tests Test 04/06/18 07:45 04/07/18 00:14 04/07/18 06:10 O2 Saturation 95 % (92-99) Arterial Blood pH 7.46 (7.35-7.45) Arterial Blood pCO2 at Patient Temp 38 mmHg (35-46) Arterial Blood pO2 at Patient Temp 76 mmHg (75-108) Arterial Blood HCO3 26 mmol/L (21-28) Arterial Blood Base Excess 3 mmol/L (-3-3) FiO2 35 Glucose (Fingerstick) 131 mg/dL (70-99) White Blood Count 5.6 x10^3/uL (4.0-11.0) Red Blood Count 3.31 x10^6/uL (4.30-5.70) Hemoglobin 8.5 g/dL (13.0-17.5) Hematocrit 25.5 % (39.0-53.0) Mean Corpuscular Volume 77 fL (79-100) Mean Corpuscular Hemoglobin 26 pg (25-35) Mean Corpuscular Hemoglobin Concent 33 g/dL (31-37) Red Cell Distribution Width 17.2 % (11.5-14.5) Platelet Count 435 x10^3/uL (140-400) Neutrophils (%) (Auto) 61 % (31-73) Lymphocytes (%) (Auto) 24 % (24-48) Monocytes (%) (Auto) 11 % (0-9) Eosinophils (%) (Auto) 3 % (0-3) Basophils (%) (Auto) 1 % (0-3) Neutrophils # (Auto) 3.4 x10^3uL (1.8-7.7) Lymphocytes # (Auto) 1.4 x10^3/uL (1.0-4.8) Monocytes # (Auto) 0.6 x10^3/uL (0.0-1.1) Eosinophils # (Auto) 0.2 x10^3/uL (0.0-0.7) Basophils # (Auto) 0.1 x10^3/uL (0.0-0.2) Sodium Level 138 mmol/L (136-145) Potassium Level 4.5 mmol/L (3.5-5.1) Chloride Level 103 mmol/L (98-107) Carbon Dioxide Level 28 mmol/L (21-32) Anion Gap 7 (6-14) Blood Urea Nitrogen 17 mg/dL (8-26) Creatinine 0.7 mg/dL (0.7-1.3) Estimated GFR (Cockcroft-Gault) 124.3 BUN/Creatinine Ratio 24 (6-20) Glucose Level 134 mg/dL (70-99) Calcium Level 9.1 mg/dL (8.5-10.1) Total Bilirubin 0.5 mg/dL (0.2-1.0) Aspartate Amino Transf (AST/SGOT) 21 U/L (15-37) Alanine Aminotransferase (ALT/SGPT) 25 U/L (16-63) Alkaline Phosphatase 64 U/L (46-116) Total Protein 7.0 g/dL (6.4-8.2) Albumin 2.0 g/dL (3.4-5.0) Albumin/Globulin Ratio 0.4 (1.0-1.7) Micro Microbiology 03/31/18 Blood Culture - Final, Complete NO GROWTH AFTER 5 DAYS Objective Assessment Fever likely from pancreatitis/occlusive thrombus vs other, cult nonrevealing, resolving. Nml procalcitonin 04/06. D/c'd Micafungin and linezolid ( 03/30- 04/06 ) with neg cults and a week of treatment Leukocytosis resolved Pancreatitis,with worsening changes on ct Encephalopathy, likely medication related ZAIRA - improved Alcoholism with DTs Lung infiltrates likely pulm venous congestion Occlusive thrombus Rt Cephalic vein on TPN Plan Plan of Care Cont Merrem (03/31) BC NGTD GI following Withdrawal precautions Critically ill D/W FOREST SEXTON MD Apr 07, 2018 07:25
[2018-04-07] MEDS: BUDESONIDE 0.5 MG/2 ML NEBU. NEB SCH ×2 (07:53→19:50)
[2018-04-07 08:07] LABS: BASE EXCESS ABG 2 mmol/L (-3-3); HCO3 ABG 26 mmol/L (21-28); PCO2 ABG 39 mmHg (35-46); PO2 ABG 113 mmHg (75-108); SAT O2 ABG 98 % (92-99)
[2018-04-07 08:08] LABS: FIO2 ABG 35
--- NOTE | 2018-04-07 09:00 | PDOC ---
PULMONARY PROGRESS NOTES Subjective ON AC SEDATED WITH MULTIPLE AGENTS Vitals Vital Signs Date Time Temp Pulse Resp B/P (MAP) Pulse Ox O2 Delivery O2 Flow Rate FiO2 04/07/18 07:53 96 Ventilator 04/07/18 07:00 55 18 117/64 (81) 04/07/18 04:00 99.4 99.4 Lungs: Other (clear) Cardiovascular: S1 Abdomen: Soft Extremities: Other (1+edema) Skin: Warm Labs Laboratory Tests Test 04/06/18 00:13 04/06/18 05:33 04/06/18 05:36 04/06/18 07:45 Glucose (Fingerstick) 133 mg/dL (70-99) 131 mg/dL (70-99) White Blood Count 5.4 x10^3/uL (4.0-11.0) Red Blood Count 3.47 x10^6/uL (4.30-5.70) Hemoglobin 8.8 g/dL (13.0-17.5) Hematocrit 26.8 % (39.0-53.0) Mean Corpuscular Volume 77 fL (79-100) Mean Corpuscular Hemoglobin 26 pg (25-35) Mean Corpuscular Hemoglobin Concent 33 g/dL (31-37) Red Cell Distribution Width 17.4 % (11.5-14.5) Platelet Count 377 x10^3/uL (140-400) Neutrophils (%) (Auto) 64 % (31-73) Lymphocytes (%) (Auto) 21 % (24-48) Monocytes (%) (Auto) 12 % (0-9) Eosinophils (%) (Auto) 3 % (0-3) Basophils (%) (Auto) 1 % (0-3) Neutrophils # (Auto) 3.5 x10^3uL (1.8-7.7) Lymphocytes # (Auto) 1.1 x10^3/uL (1.0-4.8) Monocytes # (Auto) 0.6 x10^3/uL (0.0-1.1) Eosinophils # (Auto) 0.1 x10^3/uL (0.0-0.7) Basophils # (Auto) 0.0 x10^3/uL (0.0-0.2) Sodium Level 140 mmol/L (136-145) Potassium Level 4.4 mmol/L (3.5-5.1) Chloride Level 104 mmol/L (98-107) Carbon Dioxide Level 30 mmol/L (21-32) Anion Gap 6 (6-14) Blood Urea Nitrogen 15 mg/dL (8-26) Creatinine 0.8 mg/dL (0.7-1.3) Estimated GFR (Cockcroft-Gault) 106.5 Glucose Level 139 mg/dL (70-99) Calcium Level 9.0 mg/dL (8.5-10.1) Phosphorus Level 4.2 mg/dL (2.6-4.7) Magnesium Level 2.0 mg/dL (1.8-2.4) Total Bilirubin 0.5 mg/dL (0.2-1.0) Direct Bilirubin 0.4 mg/dL (0.0-0.2) Aspartate Amino Transf (AST/SGOT) 20 U/L (15-37) Alanine Aminotransferase (ALT/SGPT) 22 U/L (16-63) Alkaline Phosphatase 59 U/L (46-116) Total Protein 6.7 g/dL (6.4-8.2) Albumin 1.9 g/dL (3.4-5.0) Triglycerides Level 165 mg/dL (0-150) Lipase 229 U/L (73-393) Procalcitonin < 0.10 ng/mL (0.00-0.10) O2 Saturation 95 % (92-99) Arterial Blood pH 7.46 (7.35-7.45) Arterial Blood pCO2 at Patient Temp 38 mmHg (35-46) Arterial Blood pO2 at Patient Temp 76 mmHg (75-108) Arterial Blood HCO3 26 mmol/L (21-28) Arterial Blood Base Excess 3 mmol/L (-3-3) FiO2 35 Test 04/07/18 00:14 04/07/18 06:10 04/07/18 07:25 Glucose (Fingerstick) 131 mg/dL (70-99) White Blood Count 5.6 x10^3/uL (4.0-11.0) Red Blood Count 3.31 x10^6/uL (4.30-5.70) Hemoglobin 8.5 g/dL (13.0-17.5) Hematocrit 25.5 % (39.0-53.0) Mean Corpuscular Volume 77 fL (79-100) Mean Corpuscular Hemoglobin 26 pg (25-35) Mean Corpuscular Hemoglobin Concent 33 g/dL (31-37) Red Cell Distribution Width 17.2 % (11.5-14.5) Platelet Count 435 x10^3/uL (140-400) Neutrophils (%) (Auto) 61 % (31-73) Lymphocytes (%) (Auto) 24 % (24-48) Monocytes (%) (Auto) 11 % (0-9) Eosinophils (%) (Auto) 3 % (0-3) Basophils (%) (Auto) 1 % (0-3) Neutrophils # (Auto) 3.4 x10^3uL (1.8-7.7) Lymphocytes # (Auto) 1.4 x10^3/uL (1.0-4.8) Monocytes # (Auto) 0.6 x10^3/uL (0.0-1.1) Eosinophils # (Auto) 0.2 x10^3/uL (0.0-0.7) Basophils # (Auto) 0.1 x10^3/uL (0.0-0.2) Sodium Level 138 mmol/L (136-145) Potassium Level 4.5 mmol/L (3.5-5.1) Chloride Level 103 mmol/L (98-107) Carbon Dioxide Level 28 mmol/L (21-32) Anion Gap 7 (6-14) Blood Urea Nitrogen 17 mg/dL (8-26) Creatinine 0.7 mg/dL (0.7-1.3) Estimated GFR (Cockcroft-Gault) 124.3 BUN/Creatinine Ratio 24 (6-20) Glucose Level 134 mg/dL (70-99) Calcium Level 9.1 mg/dL (8.5-10.1) Total Bilirubin 0.5 mg/dL (0.2-1.0) Aspartate Amino Transf (AST/SGOT) 21 U/L (15-37) Alanine Aminotransferase (ALT/SGPT) 25 U/L (16-63) Alkaline Phosphatase 64 U/L (46-116) Total Protein 7.0 g/dL (6.4-8.2) Albumin 2.0 g/dL (3.4-5.0) Albumin/Globulin Ratio 0.4 (1.0-1.7) O2 Saturation 98 % (92-99) Arterial Blood pH 7.44 (7.35-7.45) Arterial Blood pCO2 at Patient Temp 39 mmHg (35-46) Arterial Blood pO2 at Patient Temp 113 mmHg (75-108) Arterial Blood HCO3 26 mmol/L (21-28) Arterial Blood Base Excess 2 mmol/L (-3-3) FiO2 35 Laboratory Tests Test 04/07/18 00:14 04/07/18 06:10 04/07/18 07:25 Glucose (Fingerstick) 131 mg/dL (70-99) White Blood Count 5.6 x10^3/uL (4.0-11.0) Red Blood Count 3.31 x10^6/uL (4.30-5.70) Hemoglobin 8.5 g/dL (13.0-17.5) Hematocrit 25.5 % (39.0-53.0) Mean Corpuscular Volume 77 fL (79-100) Mean Corpuscular Hemoglobin 26 pg (25-35) Mean Corpuscular Hemoglobin Concent 33 g/dL (31-37) Red Cell Distribution Width 17.2 % (11.5-14.5) Platelet Count 435 x10^3/uL (140-400) Neutrophils (%) (Auto) 61 % (31-73) Lymphocytes (%) (Auto) 24 % (24-48) Monocytes (%) (Auto) 11 % (0-9) Eosinophils (%) (Auto) 3 % (0-3) Basophils (%) (Auto) 1 % (0-3) Neutrophils # (Auto) 3.4 x10^3uL (1.8-7.7) Lymphocytes # (Auto) 1.4 x10^3/uL (1.0-4.8) Monocytes # (Auto) 0.6 x10^3/uL (0.0-1.1) Eosinophils # (Auto) 0.2 x10^3/uL (0.0-0.7) Basophils # (Auto) 0.1 x10^3/uL (0.0-0.2) Sodium Level 138 mmol/L (136-145) Potassium Level 4.5 mmol/L (3.5-5.1) Chloride Level 103 mmol/L (98-107) Carbon Dioxide Level 28 mmol/L (21-32) Anion Gap 7 (6-14) Blood Urea Nitrogen 17 mg/dL (8-26) Creatinine 0.7 mg/dL (0.7-1.3) Estimated GFR (Cockcroft-Gault) 124.3 BUN/Creatinine Ratio 24 (6-20) Glucose Level 134 mg/dL (70-99) Calcium Level 9.1 mg/dL (8.5-10.1) Total Bilirubin 0.5 mg/dL (0.2-1.0) Aspartate Amino Transf (AST/SGOT) 21 U/L (15-37) Alanine Aminotransferase (ALT/SGPT) 25 U/L (16-63) Alkaline Phosphatase 64 U/L (46-116) Total Protein 7.0 g/dL (6.4-8.2) Albumin 2.0 g/dL (3.4-5.0) Albumin/Globulin Ratio 0.4 (1.0-1.7) O2 Saturation 98 % (92-99) Arterial Blood pH 7.44 (7.35-7.45) Arterial Blood pCO2 at Patient Temp 39 mmHg (35-46) Arterial Blood pO2 at Patient Temp 113 mmHg (75-108) Arterial Blood HCO3 26 mmol/L (21-28) Arterial Blood Base Excess 2 mmol/L (-3-3) FiO2 35 Medications Active Scripts Medications Dose Route/Sig Max Daily Dose Days Date Category Diazepam 5 Mg Tablet 5 Mg PO DAILY 03/05/18 Rx Proair Hfa Inhaler (Albuterol Sulfate) 8.5 Gm Hfa.aer.ad 1 Puff INH PRN Q4HRS PRN 03/02/18 Reported Duoneb 0.5-3(2.5) Mg/3 Ml (Albuterol/Ipratropium) 3 Ml Ampul.neb 3 Ml NEB Q2HR PRN 03/02/18 Reported Symbicort 160-4.5 Mcg Inhaler (Budesonide/Formoterol Fumarate) 10.2 Gm Hfa.aer.ad 2 Puff IH BID 08/13/16 Reported Prilosec Otc (Omeprazole Magnesium) 20 Mg Tablet.dr 1 Tab PO DAILY 04/30/16 Reported Theophylline (Theophylline Anhydrous) 400 Mg Tablet.er 300 Mg PO BID 08/20/[address] ABDOMEN 1. Acute pancreatitis. There has been significant progression of peripancreatic stranding and free fluid and there is interval pancreatic enlargement. No focal pancreatic lesion or pseudocyst is seen. 2. Suspected complex free fluid tracking along the anterior inferior pancreatic tail into the left lower quadrant. There is a small amount of additional free fluid throughout the abdomen and pelvis. 3. New small left greater than right pleural effusions with left greater than right lower lobe compressive atelectasis/partial collapse. 4. Stable hypodense lesions within the liver. These are better characterized on the prior exam due to suboptimal contrast on the current study. Nonemergent assessment with a liver protocol CT or MRI is recommended. 5. Mild hepatomegaly and hepatic steatosis. 6. Small hiatal hernia and distal esophageal mucosal thickening. Correlate for esophagitis. Electronically signed by: Eliana Wright MD (03/31/2018 10:56 AM) [facility] Impression . 1. Acute recurrent alcoholic pancreatitis. 2. SEPSIS 3. Acute Respiratory failure due to above 4. Acute TOXIC/ METABOLIC ACIDOSIS encephalopathy/delirium. 5. History of asthma. 6. ABNORMAL CXR Plan . REPEAT CT ABD REPORT NOTED WILL ATTEMPT TRIAL IN AM WILL CONTINUE SUPPORT ETOH WITHDRAWAL PROTOCOL ANTIBX PER ID MAY NOT BE ABLE TO PERFORM A TRIAL, ONCE BETTER WILL EXTUBATE CHASITY THOMAS MD Apr 07, 2018 09:00
[2018-04-07] MEDS: PANTOPRAZOLE IV PUSH 40 MG VIAL. IVP SCH (10:00)
[2018-04-07] MEDS: MINERAL OIL/PETROLATUM,WHITE OPHTH OINT 3.5GM TUBE. OU SCH ×2 (10:01→21:54)
[2018-04-07] MEDS: CHLORHEXIDINE 0.12% 15 ML MOUTHWASH. MM SCH ×2 (10:01→21:54)
[2018-04-07] MEDS: TPN PER PHARMACY MC PRN (12:32)
--- NOTE | 2018-04-07 13:04 | PDOC ---
Objective: Objective: Reviewed w/ RN - significant OG output, still sedated - gets agitated when not. Vital Signs: Vital Signs Date Time Temp Pulse Resp B/P (MAP) Pulse Ox O2 Delivery O2 Flow Rate FiO2 04/07/18 12:12 100 Ventilator 04/07/18 12:00 98.0 55 18 110/62 (78) 98.0 Labs: Laboratory Tests Test 04/07/18 00:14 Glucose (Fingerstick) 131 mg/dL (70-99) Imaging: CT A/P IMPRESSION: 1. Moderate peripancreatic inflammation extending into the mesentery and left anterior pararenal space, similar to that seen on 03/31/2018. 2. Stable small volume of ascites. 3. Small ongoing bilateral pleural effusions with increasing bilateral lower lobe atelectasis. 4. Splenomegaly which has worsened slightly. 5. Distended gallbladder. Head CT IMPRESSION: 1. No acute intracranial abnormality is detected. 2. Paranasal sinusitis. PE: GEN: intubated LUNGS: vent HEART: RRR ABD: quiet BS today? NEURO/PSYCH: sedated A/P: Alcoholic pancreatitis Withdrawal/agitation - intubated and sedated -- Interval CT seems stable - will review w/ Dr. Rogers. MESSI GORE Apr 07, 2018 13:04
[2018-04-07] MEDS ORDERED: OLANZapine IM 10 MG VIAL. IM PRN ×2 (15:00)
--- NOTE | 2018-04-07 15:08 | PDOC ---
PROGRESS NOTES Chief Complaint Chief Complaint acute Pancreatitis Alcohol abuse and withdrawal AMS metabolic encephalopathy with alcohol withdrawal Severe agitation with homocide ideation requiring sedation and intubation 03/31 acute hypoxic resp failure h/o Asthma GERD HTN possible sepsis wo clear etiology morbid obesity leucocytosis hepatic lesions on CT History of Present Illness History of Present Illness Pt seen and examined in ICU Dw RN pt is intubated and sedated on multiple meds but the patient has a KENDRICK of 0 Ac/18/600/35% Vitals Vitals Vital Signs Date Time Temp Pulse Resp B/P (MAP) Pulse Ox O2 Delivery O2 Flow Rate FiO2 04/07/18 14:14 18 Ventilator 04/07/18 14:00 52 125/65 (85) 99 04/07/18 12:00 98.0 98.0 Physical Exam Physical Exam intubated, sedated - lightly Heent opens eyes spontaneously with nodding head for questions NECK: supple LUNGS: Breathing nonlabored CV: Regular ABD: Obese, moderately distended ,BS + : Kramer + EXT:edema +, no cyanosis SKIN: no rash rt central line in place, clean Heart: Regular rate, Normal S1 Lungs: Other (clear) Abdomen: Soft, No masses Extremities: No cyanosis, No edema Skin: No rashes, No breakdown Labs LABS Laboratory Tests Test 04/07/18 00:14 04/07/18 06:10 04/07/18 07:25 Glucose (Fingerstick) 131 mg/dL (70-99) White Blood Count 5.6 x10^3/uL (4.0-11.0) Red Blood Count 3.31 x10^6/uL (4.30-5.70) Hemoglobin 8.5 g/dL (13.0-17.5) Hematocrit 25.5 % (39.0-53.0) Mean Corpuscular Volume 77 fL (79-100) Mean Corpuscular Hemoglobin 26 pg (25-35) Mean Corpuscular Hemoglobin Concent 33 g/dL (31-37) Red Cell Distribution Width 17.2 % (11.5-14.5) Platelet Count 435 x10^3/uL (140-400) Neutrophils (%) (Auto) 61 % (31-73) Lymphocytes (%) (Auto) 24 % (24-48) Monocytes (%) (Auto) 11 % (0-9) Eosinophils (%) (Auto) 3 % (0-3) Basophils (%) (Auto) 1 % (0-3) Neutrophils # (Auto) 3.4 x10^3uL (1.8-7.7) Lymphocytes # (Auto) 1.4 x10^3/uL (1.0-4.8) Monocytes # (Auto) 0.6 x10^3/uL (0.0-1.1) Eosinophils # (Auto) 0.2 x10^3/uL (0.0-0.7) Basophils # (Auto) 0.1 x10^3/uL (0.0-0.2) Sodium Level 138 mmol/L (136-145) Potassium Level 4.5 mmol/L (3.5-5.1) Chloride Level 103 mmol/L (98-107) Carbon Dioxide Level 28 mmol/L (21-32) Anion Gap 7 (6-14) Blood Urea Nitrogen 17 mg/dL (8-26) Creatinine 0.7 mg/dL (0.7-1.3) Estimated GFR (Cockcroft-Gault) 124.3 BUN/Creatinine Ratio 24 (6-20) Glucose Level 134 mg/dL (70-99) Calcium Level 9.1 mg/dL (8.5-10.1) Total Bilirubin 0.5 mg/dL (0.2-1.0) Aspartate Amino Transf (AST/SGOT) 21 U/L (15-37) Alanine Aminotransferase (ALT/SGPT) 25 U/L (16-63) Alkaline Phosphatase 64 U/L (46-116) Total Protein 7.0 g/dL (6.4-8.2) Albumin 2.0 g/dL (3.4-5.0) Albumin/Globulin Ratio 0.4 (1.0-1.7) O2 Saturation 98 % (92-99) Arterial Blood pH 7.44 (7.35-7.45) Arterial Blood pCO2 at Patient Temp 39 mmHg (35-46) Arterial Blood pO2 at Patient Temp 113 mmHg (75-108) Arterial Blood HCO3 26 mmol/L (21-28) Arterial Blood Base Excess 2 mmol/L (-3-3) FiO2 35 Assessment and Plan Assessmemt and Plan Problems Medical Problems: (1) Alcoholic pancreatitis #acute hypoxic resp failure #Acute metabolic encephalopathy - severe stranding noted - cont meropenem - has been having og output - but given this is 1 week into it will try to clamp and see how his distension is - add zyprexa to help reduce his propfol #alcohol w/d Status: Acute (2) ETOH abuse Status: Acute 30 min of critical care time spent on patient Comment Review of Relevant I have reviewed the following items wali (where applicable) has been applied. Labs Laboratory Tests Test 04/06/18 00:13 04/06/18 05:33 04/06/18 05:36 04/06/18 07:45 Glucose (Fingerstick) 133 mg/dL (70-99) 131 mg/dL (70-99) White Blood Count 5.4 x10^3/uL (4.0-11.0) Red Blood Count 3.47 x10^6/uL (4.30-5.70) Hemoglobin 8.8 g/dL (13.0-17.5) Hematocrit 26.8 % (39.0-53.0) Mean Corpuscular Volume 77 fL (79-100) Mean Corpuscular Hemoglobin 26 pg (25-35) Mean Corpuscular Hemoglobin Concent 33 g/dL (31-37) Red Cell Distribution Width 17.4 % (11.5-14.5) Platelet Count 377 x10^3/uL (140-400) Neutrophils (%) (Auto) 64 % (31-73) Lymphocytes (%) (Auto) 21 % (24-48) Monocytes (%) (Auto) 12 % (0-9) Eosinophils (%) (Auto) 3 % (0-3) Basophils (%) (Auto) 1 % (0-3) Neutrophils # (Auto) 3.5 x10^3uL (1.8-7.7) Lymphocytes # (Auto) 1.1 x10^3/uL (1.0-4.8) Monocytes # (Auto) 0.6 x10^3/uL (0.0-1.1) Eosinophils # (Auto) 0.1 x10^3/uL (0.0-0.7) Basophils # (Auto) 0.0 x10^3/uL (0.0-0.2) Sodium Level 140 mmol/L (136-145) Potassium Level 4.4 mmol/L (3.5-5.1) Chloride Level 104 mmol/L (98-107) Carbon Dioxide Level 30 mmol/L (21-32) Anion Gap 6 (6-14) Blood Urea Nitrogen 15 mg/dL (8-26) Creatinine 0.8 mg/dL (0.7-1.3) Estimated GFR (Cockcroft-Gault) 106.5 Glucose Level 139 mg/dL (70-99) Calcium Level 9.0 mg/dL (8.5-10.1) Phosphorus Level 4.2 mg/dL (2.6-4.7) Magnesium Level 2.0 mg/dL (1.8-2.4) Total Bilirubin 0.5 mg/dL (0.2-1.0) Direct Bilirubin 0.4 mg/dL (0.0-0.2) Aspartate Amino Transf (AST/SGOT) 20 U/L (15-37) Alanine Aminotransferase (ALT/SGPT) 22 U/L (16-63) Alkaline Phosphatase 59 U/L (46-116) Total Protein 6.7 g/dL (6.4-8.2) Albumin 1.9 g/dL (3.4-5.0) Triglycerides Level 165 mg/dL (0-150) Lipase 229 U/L (73-393) Procalcitonin < 0.10 ng/mL (0.00-0.10) O2 Saturation 95 % (92-99) Arterial Blood pH 7.46 (7.35-7.45) Arterial Blood pCO2 at Patient Temp 38 mmHg (35-46) Arterial Blood pO2 at Patient Temp 76 mmHg (75-108) Arterial Blood HCO3 26 mmol/L (21-28) Arterial Blood Base Excess 3 mmol/L (-3-3) FiO2 35 Test 04/07/18 00:14 04/07/18 06:10 04/07/18 07:25 Glucose (Fingerstick) 131 mg/dL (70-99) White Blood Count 5.6 x10^3/uL (4.0-11.0) Red Blood Count 3.31 x10^6/uL (4.30-5.70) Hemoglobin 8.5 g/dL (13.0-17.5) Hematocrit 25.5 % (39.0-53.0) Mean Corpuscular Volume 77 fL (79-100) Mean Corpuscular Hemoglobin 26 pg (25-35) Mean Corpuscular Hemoglobin Concent 33 g/dL (31-37) Red Cell Distribution Width 17.2 % (11.5-14.5) Platelet Count 435 x10^3/uL (140-400) Neutrophils (%) (Auto) 61 % (31-73) Lymphocytes (%) (Auto) 24 % (24-48) Monocytes (%) (Auto) 11 % (0-9) Eosinophils (%) (Auto) 3 % (0-3) Basophils (%) (Auto) 1 % (0-3) Neutrophils # (Auto) 3.4 x10^3uL (1.8-7.7) Lymphocytes # (Auto) 1.4 x10^3/uL (1.0-4.8) Monocytes # (Auto) 0.6 x10^3/uL (0.0-1.1) Eosinophils # (Auto) 0.2 x10^3/uL (0.0-0.7) Basophils # (Auto) 0.1 x10^3/uL (0.0-0.2) Sodium Level 138 mmol/L (136-145) Potassium Level 4.5 mmol/L (3.5-5.1) Chloride Level 103 mmol/L (98-107) Carbon Dioxide Level 28 mmol/L (21-32) Anion Gap 7 (6-14) Blood Urea Nitrogen 17 mg/dL (8-26) Creatinine 0.7 mg/dL (0.7-1.3) Estimated GFR (Cockcroft-Gault) 124.3 BUN/Creatinine Ratio 24 (6-20) Glucose Level 134 mg/dL (70-99) Calcium Level 9.1 mg/dL (8.5-10.1) Total Bilirubin 0.5 mg/dL (0.2-1.0) Aspartate Amino Transf (AST/SGOT) 21 U/L (15-37) Alanine Aminotransferase (ALT/SGPT) 25 U/L (16-63) Alkaline Phosphatase 64 U/L (46-116) Total Protein 7.0 g/dL (6.4-8.2) Albumin 2.0 g/dL (3.4-5.0) Albumin/Globulin Ratio 0.4 (1.0-1.7) O2 Saturation 98 % (92-99) Arterial Blood pH 7.44 (7.35-7.45) Arterial Blood pCO2 at Patient Temp 39 mmHg (35-46) Arterial Blood pO2 at Patient Temp 113 mmHg (75-108) Arterial Blood HCO3 26 mmol/L (21-28) Arterial Blood Base Excess 2 mmol/L (-3-3) FiO2 35 Laboratory Tests Test 04/07/18 00:14 04/07/18 06:10 04/07/18 07:25 Glucose (Fingerstick) 131 mg/dL (70-99) White Blood Count 5.6 x10^3/uL (4.0-11.0) Red Blood Count 3.31 x10^6/uL (4.30-5.70) Hemoglobin 8.5 g/dL (13.0-17.5) Hematocrit 25.5 % (39.0-53.0) Mean Corpuscular Volume 77 fL (79-100) Mean Corpuscular Hemoglobin 26 pg (25-35) Mean Corpuscular Hemoglobin Concent 33 g/dL (31-37) Red Cell Distribution Width 17.2 % (11.5-14.5) Platelet Count 435 x10^3/uL (140-400) Neutrophils (%) (Auto) 61 % (31-73) Lymphocytes (%) (Auto) 24 % (24-48) Monocytes (%) (Auto) 11 % (0-9) Eosinophils (%) (Auto) 3 % (0-3) Basophils (%) (Auto) 1 % (0-3) Neutrophils # (Auto) 3.4 x10^3uL (1.8-7.7) Lymphocytes # (Auto) 1.4 x10^3/uL (1.0-4.8) Monocytes # (Auto) 0.6 x10^3/uL (0.0-1.1) Eosinophils # (Auto) 0.2 x10^3/uL (0.0-0.7) Basophils # (Auto) 0.1 x10^3/uL (0.0-0.2) Sodium Level 138 mmol/L (136-145) Potassium Level 4.5 mmol/L (3.5-5.1) Chloride Level 103 mmol/L (98-107) Carbon Dioxide Level 28 mmol/L (21-32) Anion Gap 7 (6-14) Blood Urea Nitrogen 17 mg/dL (8-26) Creatinine 0.7 mg/dL (0.7-1.3) Estimated GFR (Cockcroft-Gault) 124.3 BUN/Creatinine Ratio 24 (6-20) Glucose Level 134 mg/dL (70-99) Calcium Level 9.1 mg/dL (8.5-10.1) Total Bilirubin 0.5 mg/dL (0.2-1.0) Aspartate Amino Transf (AST/SGOT) 21 U/L (15-37) Alanine Aminotransferase (ALT/SGPT) 25 U/L (16-63) Alkaline Phosphatase 64 U/L (46-116) Total Protein 7.0 g/dL (6.4-8.2) Albumin 2.0 g/dL (3.4-5.0) Albumin/Globulin Ratio 0.4 (1.0-1.7) O2 Saturation 98 % (92-99) Arterial Blood pH 7.44 (7.35-7.45) Arterial Blood pCO2 at Patient Temp 39 mmHg (35-46) Arterial Blood pO2 at Patient Temp 113 mmHg (75-108) Arterial Blood HCO3 26 mmol/L (21-28) Arterial Blood Base Excess 2 mmol/L (-3-3) FiO2 35 Microbiology 03/31/18 Blood Culture - Final, Complete NO GROWTH AFTER 5 DAYS Medications Current Medications Multivitamins 10 ml/Thiamine HCl 100 mg/Folic Acid 1 mg/Sodium Chloride 1,011.2 ml @ 1,000.088 mls/hr 1X ONCE IV Last administered on 03/26/18at 15:07; Start 03/26/18 at 14:00; Stop 03/26/18 at 15:00; Status DC Ondansetron HCl (Zofran) 4 mg 1X ONCE IV Last administered on 03/26/18at 14:13 ; Start 03/26/18 at 14:00; Stop 03/26/18 at 14:10; Status DC Pantoprazole Sodium (PROTONIX VIAL for IV PUSH) 40 mg 1X ONCE IVP Last administered on 03/26/18at 14:13; Start 03/26/18 at 14:00; Stop 03/26/18 at 14:10 ; Status DC Pantoprazole Sodium (PROTONIX VIAL for IV PUSH) 40 mg STK-MED ONCE IVP ; Start 03/26/18 at 14:10; Stop 03/26/18 at 14:11; Status DC Ondansetron HCl (Zofran) 4 mg STK-MED ONCE .ROUTE ; Start 03/26/18 at 14:10; Stop 03/26/18 at 14:11; Status DC Iohexol (Omnipaque 300 Mg/ml) 75 ml 1X ONCE IV Last administered on 03/26/18at 14:38; Start 03/26/18 at 14:45; Stop 03/26/18 at 14:46; Status DC Iohexol (Omnipaque 300 Mg/ml) 100 ml STK-MED ONCE .ROUTE ; Start 03/26/18 at 14: 38; Stop 03/26/18 at 14:39; Status DC Info (CONTRAST GIVEN -- Rx MONITORING) 1 each PRN DAILY PRN MC SEE COMMENTS; Start 03/26/18 at 14:45; Stop 03/28/18 at 14:44; Status DC Ondansetron HCl (Zofran) 4 mg 1X ONCE IV Last administered on 03/26/18at 15:08 ; Start 03/26/18 at 15:00; Stop 03/26/18 at 15:01; Status DC Morphine Sulfate (Morphine Sulfate) 5 mg 1X ONCE IV Last administered on at 15:09; Start 03/26/18 at 15:00; Stop 03/26/18 at 15:01; Status DC Ondansetron HCl (Zofran) 4 mg PRN Q8HRS PRN IV NAUSEA/VOMITING Last administered on 03/27/18at 12:22; Start 03/26/18 at 15:15; Stop 03/27/18 at 15:14 ; Status DC Morphine Sulfate (Morphine Sulfate) 4 mg PRN Q2HR PRN IV PAIN Last administered on 03/27/18at 15:12; Start 03/26/18 at 15:15; Stop 03/27/18 at 15:14 ; Status DC Multivitamins 10 ml/Thiamine HCl 100 mg/Folic Acid 1 mg/Sodium Chloride 1,011.2 ml @ 100 mls/ hr DAILY IV Last administered on 03/30/18at 07:52; Start at 16:00; Stop 03/30/18 at 19:07; Status DC Lorazepam (Ativan) 2 mg PRN Q1HR PRN IV For CIWA 8-14 Last administered on 03/26at 15:59; Start 03/26/18 at 15:15; Stop 03/26/18 at 16:43; Status DC Sodium Chloride 1,000 ml @ 125 mls/hr 1X ONCE IV Last administered on at 02:10; Start 03/26/18 at 15:15; Stop 03/26/18 at 23:14; Status DC Pantoprazole Sodium (PROTONIX VIAL for IV PUSH) 40 mg DAILYAC IVP Last administered on 03/30/18at 07:52; Start 03/27/18 at 07:30; Stop 03/30/18 at 10:52 ; Status DC Multivitamins 10 ml/Thiamine HCl 100 mg/Folic Acid 1 mg/Sodium Chloride 1,011.2 ml @ 100 mls/ hr DAILY IV ; Start 03/27/18 at 09:00; Stop 03/31/18 at 19:07; Status UNV Multivitamins (Thera M Plus) 1 tab DAILY PO ; Start 03/31/18 at 09:00; Stop at 14:18; Status DC Folic Acid (Folic Acid) 1 mg DAILY PO ; Start 03/31/18 at 09:00; Stop 03/31/18 at 14:18; Status DC Thiamine HCl 100 mg/Dextrose 51 ml @ 100 mls/hr DAILY IV ; Start 03/27/18 at 09 :00; Stop 03/31/18 at 09:31; Status UNV Lorazepam (Ativan) 2 mg Q6H PO Last administered on 03/26/18at 22:19; Start at 17:00; Stop 03/27/18 at 01:47; Status DC Lorazepam (Ativan) 4 mg PRN Q1HR PRN PO For CIWA 8-14; Start 03/26/18 at 16:45 Lorazepam (Ativan) 2 mg PRN Q1HR PRN IV For CIWA 8-14 Last administered on 04/06at 11:21; Start 03/26/18 at 16:45 Lorazepam (Ativan) 4 mg PRN Q1HR PRN IV For CIWA 15 or greater Last administered on 04/03/18at 00:29; Start 03/26/18 at 16:45 Haloperidol Lactate (Haldol Inj) 5 mg PRN Q4HRS PRN IVP Hallucinatns,Confusn, Delirium Last administered on 04/06/18at 11:21; Start 03/26/18 at 16:45 Diphenhydramine HCl (Benadryl) 25 mg PRN Q15MIN PRN IVP EPS symptoms 2'Haldol admin Last administered on 03/29/18at 08:25; Start 03/26/18 at 16:45 Clonidine HCl (Catapres) 0.1 mg PRN Q1HR PRN PO SBP > 180 or DBP > 100, MRX3 Last administered on 03/27/18at 05:28; Start 03/26/18 at 16:45 Lorazepam (Ativan) 2 mg PRN Q15MIN PRN IV ; Start 03/26/18 at 16:45; Status UNV Lorazepam (Ativan) 4 mg PRN Q15MIN PRN IV ; Start 03/26/18 at 16:45; Status UNV Pantoprazole Sodium (PROTONIX VIAL for IV PUSH) 40 mg DAILYAC IVP ; Start at 07:30; Status UNV Enoxaparin Sodium (Lovenox 40mg Syringe) 40 mg Q24H SQ Last administered on at 21:25; Start 03/26/18 at 21:00 Albuterol Sulfate (Ventolin Neb Soln) 2.5 mg PRN Q2HRS PRN NEB SHORTNESS OF BREATH Last administered on 03/29/18at 04:12; Start 03/26/18 at 17:00; Stop 03/30 at 13:29; Status DC Non-Formulary Medication (Albuterol Sulfate (Proair Hfa Inhaler)) 1 puff PRN Q4HRS PRN INH SHORTNESS OF BREATH; Start 03/26/18 at 16:45; Status UNV Non-Formulary Medication (Budesonide/ Formoterol Fumarate (Symbicort 160-4.5 Mcg Inhaler)) 2 puff BID IH ; Start 03/26/18 at 21:00; Status UNV Theophylline (Theodur) 300 mg BID PO Last administered on 03/30/18at 08:45; Start 03/26/18 at 21:00; Stop 04/02/18 at 08:50; Status DC Budesonide (Pulmicort) 0.5 mg RTBID NEB Last administered on 04/07/18at 07:53; Start 03/26/18 at 20:00 Albuterol Sulfate (Ventolin Neb Soln) 2.5 mg RTQID NEB Last administered on at 12:28; Start 03/26/18 at 20:00; Stop 03/30/18 at 13:24; Status DC Sodium Chloride 1,000 ml @ 1,000 mls/hr 1X ONCE IV Last administered on at 12:23; Start 03/27/18 at 12:15; Stop 03/27/18 at 13:14; Status DC Sodium Chloride 1,000 ml @ 1,000 mls/hr 1X ONCE IV Last administered on at 13:05; Start 03/27/18 at 12:15; Stop 03/27/18 at 13:14; Status DC Sodium Chloride 1,000 ml @ 1,000 mls/hr 1X ONCE IV Last administered on at 14:11; Start 03/27/18 at 12:15; Stop 03/27/18 at 13:14; Status DC Sodium Chloride 136 ml @ 500 mls/hr 1X ONCE IV Last administered on at 12:15; Start 03/27/18 at 12:15; Stop 03/27/18 at 12:31; Status DC Piperacillin Sod/ Tazobactam Sod 3.375 gm/Sodium Chloride 50 ml @ 100 mls/hr Q6HRS IV Last administered on 03/31/18at 12:16; Start 03/27/18 at 16:00; Stop at 13:38; Status DC Morphine Sulfate (Morphine Sulfate) 2 mg PRN Q2HR PRN IV PAIN Last administered on 03/31/18at 10:42; Start 03/27/18 at 16:45 Ondansetron HCl (Zofran) 4 mg PRN Q6HRS PRN IV NAUSEA/VOMITING Last administered on 03/28/18at 02:34; Start 03/27/18 at 16:45 Sodium Chloride 1,000 ml @ 125 mls/hr Q8H IV Last administered on 03/29/18at 10 :14; Start 03/27/18 at 17:45; Stop 03/29/18 at 14:21; Status DC Diazepam (Valium) 5 mg PRN Q2HR PRN PO Agitation/Alcohol withdraw Last administered on 03/29/18at 02:47; Start 03/29/18 at 01:45 Belladonna Alkaloids/Opium (B & O) 1 supp PRN Q12HR PRN DE BLADDER SPASM Last administered on 03/29/18at 02:58; Start 03/29/18 at 01:45 Dexmedetomidine HCl 200 mcg/ Sodium Chloride 50 ml @ 0 mls/hr CONT PRN IV PER PROTOCOL Last administered on 04/07/18at 13:25; Start 03/29/18 at 08:30 Sodium Chloride 500 ml @ 500 mls/hr 1X PRN PRN IV SEE COMMENTS; Start at 08:30 Atropine Sulfate (ATROPINE 0.5mg SYRINGE) 0.5 mg PRN Q5MIN PRN IV SEE COMMENTS ; Start 03/29/18 at 08:30 Potassium Chloride (Klor-Con) 40 meq 1X ONCE PO Last administered on at 14:25; Start 03/29/18 at 13:15; Stop 03/29/18 at 13:16; Status DC Potassium Chloride/Sodium Chloride 1,000 ml @ 75 mls/hr [id number] IV Last administered on 04/01/18at 08:47; Start 03/29/18 at 14:15; Stop 04/01/18 at 13:39 ; Status DC Pantoprazole Sodium (Protonix) 40 mg DAILYAC PO ; Start 03/31/18 at 07:30; Stop 03/31/18 at 11:32; Status DC Albuterol Sulfate (Ventolin Neb Soln) 2.5 mg PRN Q4HRS PRN NEB WHEEZING Last administered on 04/03/18at 08:13; Start 03/30/18 at 13:30 Micafungin Sodium 100 mg/Dextrose 100 ml @ 100 mls/hr Q24H IV Last administered on 04/05/18at 15:07; Start 03/30/18 at 15:00; Stop 04/06/18 at 08:05 ; Status DC Linezolid/Dextrose 300 ml @ 300 mls/hr Q12HR IV Last administered on at 21:33; Start 03/30/18 at 14:00; Stop 04/06/18 at 08:05; Status DC Olanzapine (ZyPREXA IM) 10 mg PRN Q8HRS PRN IM ANXIETY / AGITATION; Start 03/30 at 14:00; Stop 04/07/18 at 14:49; Status DC Labetalol HCl (Normodyne Iv Push) 20 mg PRN Q2HR PRN IVP GIVE FOR SBP > 180 DBP >110 Last administered on 03/31/18at 10:02; Start 03/30/18 at 17:15 Acetaminophen (Tylenol Supp) 650 mg PRN Q6HRS PRN DE MILD PAIN / TEMP Last administered on 03/31/18at 15:02; Start 03/30/18 at 17:15 Iohexol (Omnipaque 300 Mg/ml) 75 ml 1X ONCE IV ; Start 03/31/18 at 09:15; Stop 03/31/18 at 09:16; Status DC Info (CONTRAST GIVEN -- Rx MONITORING) 1 each PRN DAILY PRN MC SEE COMMENTS; Start 03/31/18 at 09:15; Stop 04/02/18 at 09:14; Status DC Iohexol (Omnipaque 300 Mg/ml) 75 ml 1X ONCE IV Last administered on 03/31/18at 10:29; Start 03/31/18 at 10:00; Stop 03/31/18 at 10:04; Status DC Fentanyl Citrate 30 ml @ 0 mls/hr CONT PRN IV PER PROTOCOL Last administered on 04/07/18at 14:14; Start 03/31/18 at 11:00 Lorazepam (Ativan) 2 mg STK-MED ONCE .ROUTE ; Start 03/31/18 at 11:02; Stop at 11:03; Status DC Vecuronium [place] (Norcuron Bolus) 10 mg STK-MED ONCE IV ; Start 03/31/18 at 11 :05; Stop 03/31/18 at 11:06; Status DC Propofol 100 ml @ As Directed STK-MED ONCE IV ; Start 03/31/18 at 11:08; Stop 03/31/18 at 11:09; Status DC Vecuronium [place] (Norcuron Bolus) 10 mg STK-MED ONCE IV ; Start 03/31/18 at 11 :08; Stop 03/31/18 at 11:10; Status DC Succinylcholine Chloride (Anectine) 200 mg 1X ONCE IV ; Start 03/31/18 at 11:30 ; Stop 03/31/18 at 11:31; Status DC Propofol 100 ml @ 0 mls/hr CONT PRN IV PER PROTOCOL Last administered on 12:02; Start 03/31/18 at 11:30 Chlorhexidine Gluconate (Peridex) 15 ml BID MM Last administered on 04/07/18at 10:01; Start 03/31/18 at 21:00 Pantoprazole Sodium (PROTONIX VIAL for IV PUSH) 40 mg DAILYAC IVP Last administered on 04/07/18 10:00; Start 04/01/18 at 07:30 Vecuronium [place] (Norcuron Bolus) 10 mg 1X ONCE IV Last administered on 03/31 11:58; Start 03/31/18 at 12:00; Stop 03/31/18 at 12:01; Status DC Meropenem 500 mg/ Sodium Chloride 50 ml @ 100 mls/hr Q6HRS IV Last administered on 04/07/18 12:01; Start 03/31/18 at 18:00 Info (Tpn Per Pharmacy) 1 each PRN DAILY PRN MC SEE COMMENTS Last administered on 04/07/18at 12:32; Start 03/31/18 at 14:00 Sodium Chloride 45 meq/Sodium Acetate 45 meq/ Potassium Chloride 50 meq/ Potassium Phosphate 13.6 mmol/Magnesium Sulfate 10 meq/ Calcium Gluconate 10 meq / Multivitamins 10 ml/Chromium/ Copper/Manganese/ Seleni/Zn 1 ml/ Folic Acid 1 mg/ Thiamine HCl 100 mg/Total Donna... 1,512 ml @ 63 mls/hr TPN CONT IV Last administered on 03/31/18at 21:41; Start 03/31/18 at 22:00; Stop 04/01/18 at 21:59; Status DC Octreotide Acetate (SandoSTATIN) 100 mcg Q8HRS SQ Last administered on at 06:14; Start 03/31/18 at 15:30; Stop 04/05/18 at 11:58; Status DC Vecuronium [place] (Norcuron Bolus) 10 mg STK-MED ONCE IV ; Start 03/31/18 at 11 :10; Stop 04/01/18 at 09:10; Status DC Lorazepam (Ativan) 2 mg STK-MED ONCE .ROUTE ; Start 03/31/18 at 11:10; Stop at 09:10; Status DC Sodium Chloride 45 meq/Sodium Acetate 45 meq/ Potassium Chloride 70 meq/ Potassium Phosphate 13.6 mmol/Magnesium Sulfate 10 meq/ Calcium Gluconate 10 meq / Multivitamins 10 ml/Chromium/ Copper/Manganese/ Seleni/Zn 1 ml/ Folic Acid 1 mg/ Thiamine HCl 100 mg/Total Donna... 1,512 ml @ 63 mls/hr TPN CONT IV Last administered on 04/01/18at 22:35; Start 04/01/18 at 22:00; Stop 04/02/18 at 21:59; Status DC Furosemide (Lasix) 20 mg 1X ONCE IVP Last administered on 04/02/18at 09:12; Start 04/02/18 at 09:30; Stop 04/02/18 at 09:31; Status DC Sodium Chloride 45 meq/Sodium Acetate 45 meq/ Potassium Chloride 70 meq/ Potassium Phosphate 13.6 mmol/Magnesium Sulfate 10 meq/ Calcium Gluconate 10 meq / Multivitamins 10 ml/Chromium/ Copper/Manganese/ Seleni/Zn 1 ml/ Folic Acid 1 mg/ Thiamine HCl 100 mg/Total Donna... 1,512 ml @ 63 mls/hr TPN CONT IV Last administered on 04/02/18at 22:18; Start 04/02/18 at 22:00; Stop 04/03/18 at 21:59; Status DC Multi-Ingred Cream/Lotion/Oil/ Oint (Artificial Tears Eye Ointment) 1 rosemary Q12HR OU Last administered on 04/07/18at 10:01; Start 04/02/18 at 14:00 Sodium Chloride 45 meq/Sodium Acetate 45 meq/ Potassium Chloride 70 meq/ Potassium Phosphate 13.6 mmol/Magnesium Sulfate 10 meq/ Calcium Gluconate 10 meq / Multivitamins 10 ml/Chromium/ Copper/Manganese/ Seleni/Zn 1 ml/ Folic Acid 1 mg/ Thiamine HCl 100 mg/Total Donna... 1,512 ml @ 63 mls/hr TPN CONT IV Last administered on 04/03/18at 21:11; Start 04/03/18 at 22:00; Stop 04/04/18 at 21:59; Status DC Sodium Chloride 60 meq/Sodium Acetate 50 meq/ Potassium Chloride 70 meq/ Potassium Phosphate 13.6 mmol/Magnesium Sulfate 10 meq/ Calcium Gluconate 10 meq / Multivitamins 10 ml/Chromium/ Copper/Manganese/ Seleni/Zn 1 ml/ Folic Acid 1 mg/ Thiamine HCl 100 mg/Total Donna... 1,512 ml @ 63 mls/hr TPN CONT IV Last administered on 04/04/18at 21:40; Start 04/04/18 at 22:00; Stop 04/05/18 at 21:59; Status DC Sodium Chloride 50 meq/Sodium Acetate 50 meq/ Potassium Chloride 70 meq/ Potassium Phosphate 13.6 mmol/Magnesium Sulfate 10 meq/ Calcium Gluconate 10 meq / Multivitamins 10 ml/Chromium/ Copper/Manganese/ Seleni/Zn 1 ml/ Folic Acid 1 mg/ Thiamine HCl 100 mg/Total Donna... 1,512 ml @ 63 mls/hr TPN CONT IV Last administered on 04/05/18at 21:34; Start 04/05/18 at 22:00; Stop 04/06/18 at 21:59; Status DC Sodium Chloride 50 meq/Sodium Acetate 50 meq/ Potassium Chloride 70 meq/ Potassium Phosphate 13.6 mmol/Magnesium Sulfate 10 meq/ Calcium Gluconate 10 meq / Multivitamins 10 ml/Chromium/ Copper/Manganese/ Seleni/Zn 1 ml/ Folic Acid 1 mg/ Thiamine HCl 100 mg/Total Donna... 1,512 ml @ 63 mls/hr TPN CONT IV Last administered on 04/06/18at 21:24; Start 04/06/18 at 22:00; Stop 04/07/18 at 21:59 Iohexol (Omnipaque 300 Mg/ml) 75 ml 1X ONCE IV Last administered on 04/06/18at 11:45; Start 04/06/18 at 11:45; Stop 04/06/18 at 11:46; Status DC Info (CONTRAST GIVEN -- Rx MONITORING) 1 each PRN DAILY PRN MC SEE COMMENTS; Start 04/06/18 at 11:45; Stop 04/08/18 at 11:44 Sodium Chloride 50 meq/Sodium Acetate 50 meq/ Potassium Chloride 65 meq/ Potassium Phosphate 13.6 mmol/Magnesium Sulfate 10 meq/ Calcium Gluconate 10 meq / Multivitamins 10 ml/Chromium/ Copper/Manganese/ Seleni/Zn 1 ml/ Folic Acid 1 mg/ Thiamine HCl 100 mg/Total Donna... 1,512 ml @ 63 mls/hr TPN CONT IV ; Start 04/07/18 at 22:00; Stop 04/08/18 at 21:59 Olanzapine (ZyPREXA IM) 10 mg Q8HRS PRN IM ANXIETY / AGITATION; Start 04/07/18 at 15:00; Stop 04/07/18 at 15:00; Status DC Olanzapine (ZyPREXA IM) 10 mg Q8HRS PRN IM AGITATION; Start 04/07/18 at 15:00; Stop 04/09/18 at 14:59 Active Scripts Active Diazepam 5 Mg Tablet 5 Mg PO DAILY Reported Proair Hfa Inhaler (Albuterol Sulfate) 8.5 Gm Hfa.aer.ad 1 Puff INH PRN Q4HRS PRN Duoneb 0.5-3(2.5) Mg/3 Ml (Albuterol/Ipratropium) 3 Ml Ampul.neb 3 Ml NEB Q2HR PRN Symbicort 160-4.5 Mcg Inhaler (Budesonide/Formoterol Fumarate) 10.2 Gm Hfa.aer.ad 2 Puff IH BID Prilosec Otc (Omeprazole Magnesium) 20 Mg Tablet.dr 1 Tab PO DAILY Theophylline (Theophylline Anhydrous) 400 Mg Tablet.er 300 Mg PO BID Vitals/I & O Vital Sign - Last 24 Hours 04/06/18 04/06/18 04/06/18 04/06/18 15:00 16:00 16:00 16:09 Temp 99.0 99.0 Pulse 55 62 Resp 18 18 B/P (MAP) 108/60 (76) 110/60 (77) Pulse Ox 99 99 93 O2 Delivery Ventilator Mechanical Ventilator Ventilator Ventilator 04/06/18 04/06/18 04/06/18 04/06/18 17:00 18:00 19:00 19:27 Pulse 66 56 52 Resp 18 18 17 B/P (MAP) 114/68 (83) 109/60 (76) 117/68 (84) Pulse Ox 99 99 95 95 O2 Delivery Ventilator Ventilator Ventilator Ventilator 04/06/18 04/06/18 04/06/18 04/06/18 20:00 20:00 20:58 21:00 Temp 98.6 98.6 Pulse 56 54 Resp 17 17 B/P (MAP) 113/62 (79) 109/59 (76) Pulse Ox 97 93 96 O2 Delivery Mechanical Ventilator Ventilator Ventilator Ventilator 04/06/18 04/06/18 04/06/18 04/06/18 21:40 22:00 23:00 23:10 Pulse 55 54 Resp 17 18 B/P (MAP) 96/56 (69) 91/51 (64) Pulse Ox 99 97 99 O2 Delivery Ventilator Ventilator Ventilator Ventilator 04/07/18 04/07/18 04/07/18 04/07/18 00:00 00:00 01:00 01:00 Temp 99.0 99.0 Pulse 61 56 Resp 20 17 B/P (MAP) 103/57 (72) 110/61 (77) Pulse Ox 97 99 98 O2 Delivery Mechanical Ventilator Ventilator Ventilator Ventilator 04/07/18 04/07/18 04/07/18 04/07/18 02:00 03:00 03:00 04:00 Temp 99.4 99.4 Pulse 52 58 59 Resp 18 18 12 B/P (MAP) 117/63 (81) 120/67 (84) 133/64 (87) Pulse Ox 99 99 98 94 O2 Delivery Ventilator Ventilator Ventilator Ventilator 04/07/18 04/07/18 04/07/18 04/07/18 04:00 05:00 05:45 06:00 Pulse 53 51 Resp 12 17 B/P (MAP) 131/69 (89) 125/69 (87) Pulse Ox 94 94 99 O2 Delivery Mechanical Ventilator Ventilator Ventilator Ventilator 04/07/18 04/07/18 04/07/18 04/07/18 06:06 06:36 07:00 07:53 Pulse 55 Resp 18 B/P (MAP) 117/64 (81) Pulse Ox 99 96 O2 Delivery Ventilator Ventilator Ventilator Ventilator 04/07/18 04/07/18 04/07/18 04/07/18 08:00 08:00 09:00 10:00 Temp 98.7 98.7 Pulse 55 55 55 Resp 18 18 18 B/P (MAP) 110/64 (79) 106/59 (75) 109/62 (78) Pulse Ox 99 99 99 O2 Delivery Mechanical Ventilator Ventilator Ventilator Ventilator 04/07/18 04/07/18 04/07/18 04/07/18 10:19 11:00 12:00 12:00 Temp 98.0 98.0 Pulse 55 55 Resp 18 18 B/P (MAP) 100/52 (68) 110/62 (78) Pulse Ox 100 99 99 O2 Delivery Ventilator Ventilator Ventilator Mechanical Ventilator 04/07/18 04/07/18 04/07/18 04/07/18 12:12 13:00 13:07 14:00 Pulse 58 52 Resp 18 18 B/P (MAP) 116/65 (82) 125/65 (85) Pulse Ox 100 100 100 99 O2 Delivery Ventilator Ventilator Ventilator Ventilator 04/07/18 14:14 Resp 18 O2 Delivery Ventilator Intake and Output 04/06/18 04/06/18 04/07/18 15:00 23:00 07:00 Intake Total 1811 ml 1385 ml Output Total 595 ml 1390 ml 1080 ml Balance -595 ml 421 ml 305 ml ALEKSEY YATES MD Apr 07, 2018 15:08
[2018-04-07] MEDS: OLANZapine IM 10 MG VIAL. IM SCH ×2 (15:46→21:55)
[2018-04-07] MEDS: ENOXAPARIN 40 MG/0.4 ML SYRINGE. SQ SCH (21:54)
[2018-04-07] MEDS ORDERED: DEXTROSE 70% IV SCH ×12 (22:00)
[2018-04-07] MEDS ORDERED: AMINO ACIDS IV SCH ×12 (22:00)
[2018-04-07] MEDS ORDERED: [UNRECOGNIZED DRUG - OTHER] IV SCH ×12 (22:00)
[2018-04-07] MEDS ORDERED: TOTAL PARENTERAL NUTRITION IV SCH ×12 (22:00)
[2018-04-08] VITALS (24 sets, daily range): BP systolic 89–140; BP diastolic 43–77
[2018-04-08] MEDS: MEROPENEM 500 MG in IV NORMAL SALINE 50ML 50 ML IV SCH ×4 (00:03→17:42)
[2018-04-08] MEDS: PROPOFOL 100 ML IV PRN ×4 (03:12→15:13)
[2018-04-08] MEDS: DEXMEDETOMIDINE 200 MCG in IV NORMAL SALINE 50ML 48 ML IV PRN ×5 (03:12→20:12)
[2018-04-08] MEDS: OLANZapine IM 10 MG VIAL. IM SCH (05:50)
[2018-04-08 06:36] LABS: CALCIUM 9.5 mg/dL (8.5-10.1); CREATININE 0.7 mg/dL (0.7-1.3); GFR 124.3; POTASSIUM 4.5 mmol/L (3.5-5.1)
[2018-04-08 06:42] LABS: BASO # 0.1 x10^3/uL (0.0-0.2); BASO % 1 % (0-3); EOS # 0.2 x10^3/uL (0.0-0.7); EOS % 4 % (0-3); HEMATOCRIT 26.8 % (39.0-53.0); HEMOGLOBIN 8.8 g/dL (13.0-17.5); LYMPH # 1.8 x10^3/uL (1.0-4.8); LYMPH % 31 % (24-48); MEAN CORPUSCULAR HEMOGLOBIN 25 pg (25-35); MEAN CORPUSCULAR HGB CONC 33 g/dL (31-37); MEAN CORPUSCULAR VOLUME 77 fL (79-100); MONO # 0.6 x10^3/uL (0.0-1.1); MONO % 10 % (0-9); NEUT # 3.2 x10^3uL (1.8-7.7); NEUT % 55 % (31-73); PLATELET COUNT 547 x10^3/uL (140-400); RED CELL DISTRIBUTION WIDTH 17.3 % (11.5-14.5); WHITE BLOOD COUNT 5.9 x10^3/uL (4.0-11.0)
[2018-04-08] MEDS: CHLORHEXIDINE 0.12% 15 ML MOUTHWASH. MM SCH ×2 (07:56→19:36)
[2018-04-08] MEDS: PANTOPRAZOLE IV PUSH 40 MG VIAL. IVP SCH (07:56)
[2018-04-08] MEDS: MINERAL OIL/PETROLATUM,WHITE OPHTH OINT 3.5GM TUBE. OU SCH ×2 (07:56→19:34)
[2018-04-08] MEDS: BUDESONIDE 0.5 MG/2 ML NEBU. NEB SCH ×2 (08:00→19:54)
[2018-04-08 08:17] LABS: BASE EXCESS ABG 3 mmol/L (-3-3); HCO3 ABG 26 mmol/L (21-28); PCO2 ABG 37 mmHg (35-46); PO2 ABG 101 mmHg (75-108); SAT O2 ABG 97 % (92-99)
--- NOTE | 2018-04-08 08:43 | RAD ---
Examination: PORTABLE CHEST 1V History: RESPIRATORY FAILURE Comparison/Correlation: 04/05/2018 portable x-ray exam Findings: Portable upright frontal view chest was obtained. Right internal jugular catheter terminates overlying the right atrium. Endotracheal tube terminates 2.5 cm from the osvaldo. Nasogastric tube is again identified and appears to be in place. Heart size is borderline. No pneumothorax. Mild pulmonary vasculature congestion noted. Small pleural effusions noted. No pneumothorax. Left basilar retrocardiac opacification is noted and may represent atelectasis. Impression: Small left pleural effusions. Retrocardiac basilar atelectasis. Electronically signed by: Benito Ross MD (04/08/2018 8:39 AM) [facility]
[2018-04-08 08:49] LABS: FIO2 ABG 35
[2018-04-08 10:16] LABS: % BANDS 11 % (0-9); % EOS 3 % (0-5); % LYMPHS 19 % (24-48); % METAS 1 % (0-0); % MONOS 10 % (0-10); % SEGS 56 % (35-66)
[2018-04-08 10:17] LABS: ANISOCYTOSIS SLIGHT; MICROCYTOSIS PRESENT
[2018-04-08 10:18] LABS: PLT ESTIMATE INCREASED (ADEQUATE)
--- NOTE | 2018-04-08 11:34 | PDOC ---
Infectious Disease Note Subjective Subjective Pt remains sedated, intubated,arousable on TPN comfortable ROS ROS unobtainable Vital Sign Vital Signs Vital Signs Date Time Temp Pulse Resp B/P (MAP) Pulse Ox O2 Delivery O2 Flow Rate FiO2 04/08/18 10:23 100 Ventilator 04/08/18 09:46 18 04/08/18 07:00 66 136/71 (92) 04/08/18 04:00 98.7 98.7 Physical Exam PHYSICAL EXAM intubated, sedated - lightly Heent opens eyes spontaneously NECK: supple LUNGS: Breathing nonlabored CV: Regular ABD: Obese, moderately distended ,BS + : Kramer + EXT:edema +, no cyanosis, mitts SKIN: no rash rt central line in place, clean Labs Lab Laboratory Tests Test 04/08/18 06:00 04/08/18 08:00 04/08/18 08:23 White Blood Count 5.9 x10^3/uL (4.0-11.0) Red Blood Count 3.50 x10^6/uL (4.30-5.70) Hemoglobin 8.8 g/dL (13.0-17.5) Hematocrit 26.8 % (39.0-53.0) Mean Corpuscular Volume 77 fL (79-100) Mean Corpuscular Hemoglobin 25 pg (25-35) Mean Corpuscular Hemoglobin Concent 33 g/dL (31-37) Red Cell Distribution Width 17.3 % (11.5-14.5) Platelet Count 547 x10^3/uL (140-400) Neutrophils (%) (Auto) 55 % (31-73) Lymphocytes (%) (Auto) 31 % (24-48) Monocytes (%) (Auto) 10 % (0-9) Eosinophils (%) (Auto) 4 % (0-3) Basophils (%) (Auto) 1 % (0-3) Neutrophils # (Auto) 3.2 x10^3uL (1.8-7.7) Lymphocytes # (Auto) 1.8 x10^3/uL (1.0-4.8) Monocytes # (Auto) 0.6 x10^3/uL (0.0-1.1) Eosinophils # (Auto) 0.2 x10^3/uL (0.0-0.7) Basophils # (Auto) 0.1 x10^3/uL (0.0-0.2) Segmented Neutrophils % 56 % (35-66) Band Neutrophils % 11 % (0-9) Lymphocytes % 19 % (24-48) Monocytes % 10 % (0-10) Eosinophils % 3 % (0-5) Metamyelocytes % 1 % (0-0) Platelet Estimate Increased (ADEQUATE) Large Platelets Present Anisocytosis Slight Microcytosis Present Sodium Level 141 mmol/L (136-145) Potassium Level 4.5 mmol/L (3.5-5.1) Chloride Level 105 mmol/L (98-107) Carbon Dioxide Level 28 mmol/L (21-32) Anion Gap 8 (6-14) Blood Urea Nitrogen 19 mg/dL (8-26) Creatinine 0.7 mg/dL (0.7-1.3) Estimated GFR (Cockcroft-Gault) 124.3 Glucose Level 124 mg/dL (70-99) Calcium Level 9.5 mg/dL (8.5-10.1) O2 Saturation 97 % (92-99) Arterial Blood pH 7.47 (7.35-7.45) Arterial Blood pCO2 at Patient Temp 37 mmHg (35-46) Arterial Blood pO2 at Patient Temp 101 mmHg (75-108) Arterial Blood HCO3 26 mmol/L (21-28) Arterial Blood Base Excess 3 mmol/L (-3-3) FiO2 35 Glucose (Fingerstick) 126 mg/dL (70-99) Micro Microbiology 03/31/18 Blood Culture - Final, Complete NO GROWTH AFTER 5 DAYS Objective Assessment Fever - better - likely from pancreatitis/occlusive thrombus vs other, cult nonrevealing, resolving. Nml procalcitonin 04/06. D/c'd Micafungin and linezolid ( 03/30- 04/06 ) with neg cults and a week of treatment Leukocytosis resolved Pancreatitis,with worsening changes on ct Encephalopathy, likely medication related ZAIRA - improved Alcoholism with DTs Lung infiltrates likely pulm venous congestion Occlusive thrombus Rt Cephalic vein on TPN Plan Plan of Care Cont Merrem (03/31) BC NGTD GI following Withdrawal precautions Critically ill D/W FOREST SEXTON MD Apr 08, 2018 11:34
--- NOTE | 2018-04-08 12:46 | PDOC ---
PULMONARY PROGRESS NOTES Subjective ON AC SEDATED WITH MULTIPLE AGENTS AT TIMES GET UP IN BED DESPITE THESE AGENTS Vitals Vital Signs Date Time Temp Pulse Resp B/P (MAP) Pulse Ox O2 Delivery O2 Flow Rate FiO2 04/08/18 11:32 100 Ventilator 04/08/18 09:46 18 04/08/18 07:00 66 136/71 (92) 04/08/18 04:00 98.7 98.7 Lungs: Other (clear) Cardiovascular: S1 Abdomen: Soft Extremities: Other (1+edema) Skin: Warm Labs Laboratory Tests Test 04/07/18 00:14 04/07/18 06:10 04/07/18 07:25 04/08/18 06:00 Glucose (Fingerstick) 131 mg/dL (70-99) White Blood Count 5.6 x10^3/uL (4.0-11.0) 5.9 x10^3/uL (4.0-11.0) Red Blood Count 3.31 x10^6/uL (4.30-5.70) 3.50 x10^6/uL (4.30-5.70) Hemoglobin 8.5 g/dL (13.0-17.5) 8.8 g/dL (13.0-17.5) Hematocrit 25.5 % (39.0-53.0) 26.8 % (39.0-53.0) Mean Corpuscular Volume 77 fL (79-100) 77 fL (79-100) Mean Corpuscular Hemoglobin 26 pg (25-35) 25 pg (25-35) Mean Corpuscular Hemoglobin Concent 33 g/dL (31-37) 33 g/dL (31-37) Red Cell Distribution Width 17.2 % (11.5-14.5) 17.3 % (11.5-14.5) Platelet Count 435 x10^3/uL (140-400) 547 x10^3/uL (140-400) Neutrophils (%) (Auto) 61 % (31-73) 55 % (31-73) Lymphocytes (%) (Auto) 24 % (24-48) 31 % (24-48) Monocytes (%) (Auto) 11 % (0-9) 10 % (0-9) Eosinophils (%) (Auto) 3 % (0-3) 4 % (0-3) Basophils (%) (Auto) 1 % (0-3) 1 % (0-3) Neutrophils # (Auto) 3.4 x10^3uL (1.8-7.7) 3.2 x10^3uL (1.8-7.7) Lymphocytes # (Auto) 1.4 x10^3/uL (1.0-4.8) 1.8 x10^3/uL (1.0-4.8) Monocytes # (Auto) 0.6 x10^3/uL (0.0-1.1) 0.6 x10^3/uL (0.0-1.1) Eosinophils # (Auto) 0.2 x10^3/uL (0.0-0.7) 0.2 x10^3/uL (0.0-0.7) Basophils # (Auto) 0.1 x10^3/uL (0.0-0.2) 0.1 x10^3/uL (0.0-0.2) Sodium Level 138 mmol/L (136-145) 141 mmol/L (136-145) Potassium Level 4.5 mmol/L (3.5-5.1) 4.5 mmol/L (3.5-5.1) Chloride Level 103 mmol/L (98-107) 105 mmol/L (98-107) Carbon Dioxide Level 28 mmol/L (21-32) 28 mmol/L (21-32) Anion Gap 7 (6-14) 8 (6-14) Blood Urea Nitrogen 17 mg/dL (8-26) 19 mg/dL (8-26) Creatinine 0.7 mg/dL (0.7-1.3) 0.7 mg/dL (0.7-1.3) Estimated GFR (Cockcroft-Gault) 124.3 124.3 BUN/Creatinine Ratio 24 (6-20) Glucose Level 134 mg/dL (70-99) 124 mg/dL (70-99) Calcium Level 9.1 mg/dL (8.5-10.1) 9.5 mg/dL (8.5-10.1) Total Bilirubin 0.5 mg/dL (0.2-1.0) Aspartate Amino Transf (AST/SGOT) 21 U/L (15-37) Alanine Aminotransferase (ALT/SGPT) 25 U/L (16-63) Alkaline Phosphatase 64 U/L (46-116) Total Protein 7.0 g/dL (6.4-8.2) Albumin 2.0 g/dL (3.4-5.0) Albumin/Globulin Ratio 0.4 (1.0-1.7) O2 Saturation 98 % (92-99) Arterial Blood pH 7.44 (7.35-7.45) Arterial Blood pCO2 at Patient Temp 39 mmHg (35-46) Arterial Blood pO2 at Patient Temp 113 mmHg (75-108) Arterial Blood HCO3 26 mmol/L (21-28) Arterial Blood Base Excess 2 mmol/L (-3-3) FiO2 35 Segmented Neutrophils % 56 % (35-66) Band Neutrophils % 11 % (0-9) Lymphocytes % 19 % (24-48) Monocytes % 10 % (0-10) Eosinophils % 3 % (0-5) Metamyelocytes % 1 % (0-0) Platelet Estimate Increased (ADEQUATE) Large Platelets Present Anisocytosis Slight Microcytosis Present Test 04/08/18 08:00 04/08/18 08:23 O2 Saturation 97 % (92-99) Arterial Blood pH 7.47 (7.35-7.45) Arterial Blood pCO2 at Patient Temp 37 mmHg (35-46) Arterial Blood pO2 at Patient Temp 101 mmHg (75-108) Arterial Blood HCO3 26 mmol/L (21-28) Arterial Blood Base Excess 3 mmol/L (-3-3) FiO2 35 Glucose (Fingerstick) 126 mg/dL (70-99) Laboratory Tests Test 04/08/18 06:00 04/08/18 08:00 04/08/18 08:23 White Blood Count 5.9 x10^3/uL (4.0-11.0) Red Blood Count 3.50 x10^6/uL (4.30-5.70) Hemoglobin 8.8 g/dL (13.0-17.5) Hematocrit 26.8 % (39.0-53.0) Mean Corpuscular Volume 77 fL (79-100) Mean Corpuscular Hemoglobin 25 pg (25-35) Mean Corpuscular Hemoglobin Concent 33 g/dL (31-37) Red Cell Distribution Width 17.3 % (11.5-14.5) Platelet Count 547 x10^3/uL (140-400) Neutrophils (%) (Auto) 55 % (31-73) Lymphocytes (%) (Auto) 31 % (24-48) Monocytes (%) (Auto) 10 % (0-9) Eosinophils (%) (Auto) 4 % (0-3) Basophils (%) (Auto) 1 % (0-3) Neutrophils # (Auto) 3.2 x10^3uL (1.8-7.7) Lymphocytes # (Auto) 1.8 x10^3/uL (1.0-4.8) Monocytes # (Auto) 0.6 x10^3/uL (0.0-1.1) Eosinophils # (Auto) 0.2 x10^3/uL (0.0-0.7) Basophils # (Auto) 0.1 x10^3/uL (0.0-0.2) Segmented Neutrophils % 56 % (35-66) Band Neutrophils % 11 % (0-9) Lymphocytes % 19 % (24-48) Monocytes % 10 % (0-10) Eosinophils % 3 % (0-5) Metamyelocytes % 1 % (0-0) Platelet Estimate Increased (ADEQUATE) Large Platelets Present Anisocytosis Slight Microcytosis Present Sodium Level 141 mmol/L (136-145) Potassium Level 4.5 mmol/L (3.5-5.1) Chloride Level 105 mmol/L (98-107) Carbon Dioxide Level 28 mmol/L (21-32) Anion Gap 8 (6-14) Blood Urea Nitrogen 19 mg/dL (8-26) Creatinine 0.7 mg/dL (0.7-1.3) Estimated GFR (Cockcroft-Gault) 124.3 Glucose Level 124 mg/dL (70-99) Calcium Level 9.5 mg/dL (8.5-10.1) O2 Saturation 97 % (92-99) Arterial Blood pH 7.47 (7.35-7.45) Arterial Blood pCO2 at Patient Temp 37 mmHg (35-46) Arterial Blood pO2 at Patient Temp 101 mmHg (75-108) Arterial Blood HCO3 26 mmol/L (21-28) Arterial Blood Base Excess 3 mmol/L (-3-3) FiO2 35 Glucose (Fingerstick) 126 mg/dL (70-99) Medications Active Scripts Medications Dose Route/Sig Max Daily Dose Days Date Category Diazepam 5 Mg Tablet 5 Mg PO DAILY 03/05/18 Rx Proair Hfa Inhaler (Albuterol Sulfate) 8.5 Gm Hfa.aer.ad 1 Puff INH PRN Q4HRS PRN 03/02/18 Reported Duoneb 0.5-3(2.5) Mg/3 Ml (Albuterol/Ipratropium) 3 Ml Ampul.neb 3 Ml NEB Q2HR PRN 03/02/18 Reported Symbicort 160-4.5 Mcg Inhaler (Budesonide/Formoterol Fumarate) 10.2 Gm Hfa.aer.ad 2 Puff IH BID 08/13/16 Reported Prilosec Otc (Omeprazole Magnesium) 20 Mg Tablet.dr 1 Tab PO DAILY 04/30/16 Reported Theophylline (Theophylline Anhydrous) 400 Mg Tablet.er 300 Mg PO BID 08/20/[address] ABDOMEN 1. Acute pancreatitis. There has been significant progression of peripancreatic stranding and free fluid and there is interval pancreatic enlargement. No focal pancreatic lesion or pseudocyst is seen. 2. Suspected complex free fluid tracking along the anterior inferior pancreatic tail into the left lower quadrant. There is a small amount of additional free fluid throughout the abdomen and pelvis. 3. New small left greater than right pleural effusions with left greater than right lower lobe compressive atelectasis/partial collapse. 4. Stable hypodense lesions within the liver. These are better characterized on the prior exam due to suboptimal contrast on the current study. Nonemergent assessment with a liver protocol CT or MRI is recommended. 5. Mild hepatomegaly and hepatic steatosis. 6. Small hiatal hernia and distal esophageal mucosal thickening. Correlate for esophagitis. Electronically signed by: Eliana Wright MD (03/31/2018 10:56 AM) [facility] Impression . 1. Acute recurrent alcoholic pancreatitis. 2. SEPSIS 3. Acute Respiratory failure due to above 4. Acute TOXIC/ METABOLIC ACIDOSIS encephalopathy/delirium. 5. History of asthma. 6. ABNORMAL CXR Plan . CLINICALLY BETTER UNABLE TO PREFORM A TRIAL WILL PROCEED WITH EXTUBATION, D/C ZYPREXA START HALDOL AND BENADRYL D/W DR LEÓN REPEAT CT ABD REPORT NOTED ETOH WITHDRAWAL PROTOCOL ANTIBX PER CHASITY ALONSO MD Apr 08, 2018 12:46
[2018-04-08] MEDS: diphenhydrAMINE 50 MG/ML VIAL IVP SCH ×2 (14:50→22:00)
[2018-04-08] MEDS: HALOPERIDOL LACTATE 5 MG/ML VIAL. IV SCH ×2 (14:53→21:56)
--- NOTE | 2018-04-08 14:58 | PDOC ---
PROGRESS NOTES Chief Complaint Chief Complaint acute Pancreatitis Alcohol abuse and withdrawal AMS metabolic encephalopathy with alcohol withdrawal Severe agitation with homocide ideation requiring sedation and intubation 03/31 acute hypoxic resp failure h/o Asthma GERD HTN possible sepsis wo clear etiology morbid obesity leucocytosis hepatic lesions on CT History of Present Illness History of Present Illness Pt seen and examined in ICU Dw RN pt is intubated and sedated Ac/18/600/35% PEEP 5 Vitals Vitals Vital Signs Date Time Temp Pulse Resp B/P (MAP) Pulse Ox O2 Delivery O2 Flow Rate FiO2 04/08/18 14:30 18 100 Ventilator 04/08/18 07:00 66 136/71 (92) 04/08/18 04:00 98.7 98.7 Physical Exam Physical Exam General: No acute distress Heart: Regular rate, Normal S1, Normal S2 Lungs: Other (clear) Abdomen: Soft, No masses Extremities: No cyanosis, No edema Skin: No rashes, No breakdown Labs LABS Laboratory Tests Test 04/08/18 06:00 04/08/18 08:00 04/08/18 08:23 White Blood Count 5.9 x10^3/uL (4.0-11.0) Red Blood Count 3.50 x10^6/uL (4.30-5.70) Hemoglobin 8.8 g/dL (13.0-17.5) Hematocrit 26.8 % (39.0-53.0) Mean Corpuscular Volume 77 fL (79-100) Mean Corpuscular Hemoglobin 25 pg (25-35) Mean Corpuscular Hemoglobin Concent 33 g/dL (31-37) Red Cell Distribution Width 17.3 % (11.5-14.5) Platelet Count 547 x10^3/uL (140-400) Neutrophils (%) (Auto) 55 % (31-73) Lymphocytes (%) (Auto) 31 % (24-48) Monocytes (%) (Auto) 10 % (0-9) Eosinophils (%) (Auto) 4 % (0-3) Basophils (%) (Auto) 1 % (0-3) Neutrophils # (Auto) 3.2 x10^3uL (1.8-7.7) Lymphocytes # (Auto) 1.8 x10^3/uL (1.0-4.8) Monocytes # (Auto) 0.6 x10^3/uL (0.0-1.1) Eosinophils # (Auto) 0.2 x10^3/uL (0.0-0.7) Basophils # (Auto) 0.1 x10^3/uL (0.0-0.2) Segmented Neutrophils % 56 % (35-66) Band Neutrophils % 11 % (0-9) Lymphocytes % 19 % (24-48) Monocytes % 10 % (0-10) Eosinophils % 3 % (0-5) Metamyelocytes % 1 % (0-0) Platelet Estimate Increased (ADEQUATE) Large Platelets Present Anisocytosis Slight Microcytosis Present Sodium Level 141 mmol/L (136-145) Potassium Level 4.5 mmol/L (3.5-5.1) Chloride Level 105 mmol/L (98-107) Carbon Dioxide Level 28 mmol/L (21-32) Anion Gap 8 (6-14) Blood Urea Nitrogen 19 mg/dL (8-26) Creatinine 0.7 mg/dL (0.7-1.3) Estimated GFR (Cockcroft-Gault) 124.3 Glucose Level 124 mg/dL (70-99) Calcium Level 9.5 mg/dL (8.5-10.1) O2 Saturation 97 % (92-99) Arterial Blood pH 7.47 (7.35-7.45) Arterial Blood pCO2 at Patient Temp 37 mmHg (35-46) Arterial Blood pO2 at Patient Temp 101 mmHg (75-108) Arterial Blood HCO3 26 mmol/L (21-28) Arterial Blood Base Excess 3 mmol/L (-3-3) FiO2 35 Glucose (Fingerstick) 126 mg/dL (70-99) Review of Systems Review of Systems Intubated and Sedated, unable to ROS Assessment and Plan Assessmemt and Plan Problems Medical Problems: (1) Alcoholic pancreatitis Status: Acute (2) ETOH abuse Status: Acute acute Pancreatitis Alcohol abuse and withdrawal AMS metabolic encephalopathy with alcohol withdrawal Severe agitation with homocide ideation requiring sedation and intubation 03/31 acute hypoxic resp failure h/o Asthma GERD HTN possible sepsis wo clear etiology morbid obesity leucocytosis hepatic lesions on CT Plan: ICU monitoring TPN propofol and fentanyl for sedation meropenen labs extubate later today Total time 32 minutes Comment Review of Relevant I have reviewed the following items wali (where applicable) has been applied. Labs Laboratory Tests Test 04/07/18 00:14 9/25/18 06:10 04/07/18 07:25 04/08/18 06:00 Glucose (Fingerstick) 131 mg/dL (70-99) White Blood Count 5.6 x10^3/uL (4.0-11.0) 5.9 x10^3/uL (4.0-11.0) Red Blood Count 3.31 x10^6/uL (4.30-5.70) 3.50 x10^6/uL (4.30-5.70) Hemoglobin 8.5 g/dL (13.0-17.5) 8.8 g/dL (13.0-17.5) Hematocrit 25.5 % (39.0-53.0) 26.8 % (39.0-53.0) Mean Corpuscular Volume 77 fL (79-100) 77 fL (79-100) Mean Corpuscular Hemoglobin 26 pg (25-35) 25 pg (25-35) Mean Corpuscular Hemoglobin Concent 33 g/dL (31-37) 33 g/dL (31-37) Red Cell Distribution Width 17.2 % (11.5-14.5) 17.3 % (11.5-14.5) Platelet Count 435 x10^3/uL (140-400) 547 x10^3/uL (140-400) Neutrophils (%) (Auto) 61 % (31-73) 55 % (31-73) Lymphocytes (%) (Auto) 24 % (24-48) 31 % (24-48) Monocytes (%) (Auto) 11 % (0-9) 10 % (0-9) Eosinophils (%) (Auto) 3 % (0-3) 4 % (0-3) Basophils (%) (Auto) 1 % (0-3) 1 % (0-3) Neutrophils # (Auto) 3.4 x10^3uL (1.8-7.7) 3.2 x10^3uL (1.8-7.7) Lymphocytes # (Auto) 1.4 x10^3/uL (1.0-4.8) 1.8 x10^3/uL (1.0-4.8) Monocytes # (Auto) 0.6 x10^3/uL (0.0-1.1) 0.6 x10^3/uL (0.0-1.1) Eosinophils # (Auto) 0.2 x10^3/uL (0.0-0.7) 0.2 x10^3/uL (0.0-0.7) Basophils # (Auto) 0.1 x10^3/uL (0.0-0.2) 0.1 x10^3/uL (0.0-0.2) Sodium Level 138 mmol/L (136-145) 141 mmol/L (136-145) Potassium Level 4.5 mmol/L (3.5-5.1) 4.5 mmol/L (3.5-5.1) Chloride Level 103 mmol/L (98-107) 105 mmol/L (98-107) Carbon Dioxide Level 28 mmol/L (21-32) 28 mmol/L (21-32) Anion Gap 7 (6-14) 8 (6-14) Blood Urea Nitrogen 17 mg/dL (8-26) 19 mg/dL (8-26) Creatinine 0.7 mg/dL (0.7-1.3) 0.7 mg/dL (0.7-1.3) Estimated GFR (Cockcroft-Gault) 124.3 124.3 BUN/Creatinine Ratio 24 (6-20) Glucose Level 134 mg/dL (70-99) 124 mg/dL (70-99) Calcium Level 9.1 mg/dL (8.5-10.1) 9.5 mg/dL (8.5-10.1) Total Bilirubin 0.5 mg/dL (0.2-1.0) Aspartate Amino Transf (AST/SGOT) 21 U/L (15-37) Alanine Aminotransferase (ALT/SGPT) 25 U/L (16-63) Alkaline Phosphatase 64 U/L (46-116) Total Protein 7.0 g/dL (6.4-8.2) Albumin 2.0 g/dL (3.4-5.0) Albumin/Globulin Ratio 0.4 (1.0-1.7) O2 Saturation 98 % (92-99) Arterial Blood pH 7.44 (7.35-7.45) Arterial Blood pCO2 at Patient Temp 39 mmHg (35-46) Arterial Blood pO2 at Patient Temp 113 mmHg (75-108) Arterial Blood HCO3 26 mmol/L (21-28) Arterial Blood Base Excess 2 mmol/L (-3-3) FiO2 35 Segmented Neutrophils % 56 % (35-66) Band Neutrophils % 11 % (0-9) Lymphocytes % 19 % (24-48) Monocytes % 10 % (0-10) Eosinophils % 3 % (0-5) Metamyelocytes % 1 % (0-0) Platelet Estimate Increased (ADEQUATE) Large Platelets Present Anisocytosis Slight Microcytosis Present Test 04/08/18 08:00 04/08/18 08:23 O2 Saturation 97 % (92-99) Arterial Blood pH 7.47 (7.35-7.45) Arterial Blood pCO2 at Patient Temp 37 mmHg (35-46) Arterial Blood pO2 at Patient Temp 101 mmHg (75-108) Arterial Blood HCO3 26 mmol/L (21-28) Arterial Blood Base Excess 3 mmol/L (-3-3) FiO2 35 Glucose (Fingerstick) 126 mg/dL (70-99) Laboratory Tests Test 04/08/18 06:00 04/08/18 08:00 04/08/18 08:23 White Blood Count 5.9 x10^3/uL (4.0-11.0) Red Blood Count 3.50 x10^6/uL (4.30-5.70) Hemoglobin 8.8 g/dL (13.0-17.5) Hematocrit 26.8 % (39.0-53.0) Mean Corpuscular Volume 77 fL (79-100) Mean Corpuscular Hemoglobin 25 pg (25-35) Mean Corpuscular Hemoglobin Concent 33 g/dL (31-37) Red Cell Distribution Width 17.3 % (11.5-14.5) Platelet Count 547 x10^3/uL (140-400) Neutrophils (%) (Auto) 55 % (31-73) Lymphocytes (%) (Auto) 31 % (24-48) Monocytes (%) (Auto) 10 % (0-9) Eosinophils (%) (Auto) 4 % (0-3) Basophils (%) (Auto) 1 % (0-3) Neutrophils # (Auto) 3.2 x10^3uL (1.8-7.7) Lymphocytes # (Auto) 1.8 x10^3/uL (1.0-4.8) Monocytes # (Auto) 0.6 x10^3/uL (0.0-1.1) Eosinophils # (Auto) 0.2 x10^3/uL (0.0-0.7) Basophils # (Auto) 0.1 x10^3/uL (0.0-0.2) Segmented Neutrophils % 56 % (35-66) Band Neutrophils % 11 % (0-9) Lymphocytes % 19 % (24-48) Monocytes % 10 % (0-10) Eosinophils % 3 % (0-5) Metamyelocytes % 1 % (0-0) Platelet Estimate Increased (ADEQUATE) Large Platelets Present Anisocytosis Slight Microcytosis Present Sodium Level 141 mmol/L (136-145) Potassium Level 4.5 mmol/L (3.5-5.1) Chloride Level 105 mmol/L (98-107) Carbon Dioxide Level 28 mmol/L (21-32) Anion Gap 8 (6-14) Blood Urea Nitrogen 19 mg/dL (8-26) Creatinine 0.7 mg/dL (0.7-1.3) Estimated GFR (Cockcroft-Gault) 124.3 Glucose Level 124 mg/dL (70-99) Calcium Level 9.5 mg/dL (8.5-10.1) O2 Saturation 97 % (92-99) Arterial Blood pH 7.47 (7.35-7.45) Arterial Blood pCO2 at Patient Temp 37 mmHg (35-46) Arterial Blood pO2 at Patient Temp 101 mmHg (75-108) Arterial Blood HCO3 26 mmol/L (21-28) Arterial Blood Base Excess 3 mmol/L (-3-3) FiO2 35 Glucose (Fingerstick) 126 mg/dL (70-99) Microbiology 03/31/18 Blood Culture - Final, Complete NO GROWTH AFTER 5 DAYS Medications Current Medications Multivitamins 10 ml/Thiamine HCl 100 mg/Folic Acid 1 mg/Sodium Chloride 1,011.2 ml @ 1,000.088 mls/hr 1X ONCE IV Last administered on 03/26/18at 15:07; Start 03/26/18 at 14:00; Stop 03/26/18 at 15:00; Status DC Ondansetron HCl (Zofran) 4 mg 1X ONCE IV Last administered on 03/26/18at 14:13 ; Start 03/26/18 at 14:00; Stop 03/26/18 at 14:10; Status DC Pantoprazole Sodium (PROTONIX VIAL for IV PUSH) 40 mg 1X ONCE IVP Last administered on 03/26/18at 14:13; Start 03/26/18 at 14:00; Stop 03/26/18 at 14:10 ; Status DC Pantoprazole Sodium (PROTONIX VIAL for IV PUSH) 40 mg STK-MED ONCE IVP ; Start 03/26/18 at 14:10; Stop 03/26/18 at 14:11; Status DC Ondansetron HCl (Zofran) 4 mg STK-MED ONCE .ROUTE ; Start 03/26/18 at 14:10; Stop 03/26/18 at 14:11; Status DC Iohexol (Omnipaque 300 Mg/ml) 75 ml 1X ONCE IV Last administered on 03/26/18at 14:38; Start 03/26/18 at 14:45; Stop 03/26/18 at 14:46; Status DC Iohexol (Omnipaque 300 Mg/ml) 100 ml STK-MED ONCE .ROUTE ; Start 03/26/18 at 14: 38; Stop 03/26/18 at 14:39; Status DC Info (CONTRAST GIVEN -- Rx MONITORING) 1 each PRN DAILY PRN MC SEE COMMENTS; Start 03/26/18 at 14:45; Stop 03/28/18 at 14:44; Status DC Ondansetron HCl (Zofran) 4 mg 1X ONCE IV Last administered on 03/26/18at 15:08 ; Start 03/26/18 at 15:00; Stop 03/26/18 at 15:01; Status DC Morphine Sulfate (Morphine Sulfate) 5 mg 1X ONCE IV Last administered on at 15:09; Start 03/26/18 at 15:00; Stop 03/26/18 at 15:01; Status DC Ondansetron HCl (Zofran) 4 mg PRN Q8HRS PRN IV NAUSEA/VOMITING Last administered on 03/27/18at 12:22; Start 03/26/18 at 15:15; Stop 03/27/18 at 15:14 ; Status DC Morphine Sulfate (Morphine Sulfate) 4 mg PRN Q2HR PRN IV PAIN Last administered on 03/27/18at 15:12; Start 03/26/18 at 15:15; Stop 03/27/18 at 15:14 ; Status DC Multivitamins 10 ml/Thiamine HCl 100 mg/Folic Acid 1 mg/Sodium Chloride 1,011.2 ml @ 100 mls/ hr DAILY IV Last administered on 03/30/18at 07:52; Start at 16:00; Stop 03/30/18 at 19:07; Status DC Lorazepam (Ativan) 2 mg PRN Q1HR PRN IV For CIWA 8-14 Last administered on 03/26at 15:59; Start 03/26/18 at 15:15; Stop 03/26/18 at 16:43; Status DC Sodium Chloride 1,000 ml @ 125 mls/hr 1X ONCE IV Last administered on at 02:10; Start 03/26/18 at 15:15; Stop 03/26/18 at 23:14; Status DC Pantoprazole Sodium (PROTONIX VIAL for IV PUSH) 40 mg DAILYAC IVP Last administered on 03/30/18at 07:52; Start 03/27/18 at 07:30; Stop 03/30/18 at 10:52 ; Status DC Multivitamins 10 ml/Thiamine HCl 100 mg/Folic Acid 1 mg/Sodium Chloride 1,011.2 ml @ 100 mls/ hr DAILY IV ; Start 03/27/18 at 09:00; Stop 03/31/18 at 19:07; Status UNV Multivitamins (Thera M Plus) 1 tab DAILY PO ; Start 03/31/18 at 09:00; Stop at 14:18; Status DC Folic Acid (Folic Acid) 1 mg DAILY PO ; Start 03/31/18 at 09:00; Stop 03/31/18 at 14:18; Status DC Thiamine HCl 100 mg/Dextrose 51 ml @ 100 mls/hr DAILY IV ; Start 03/27/18 at 09 :00; Stop 03/31/18 at 09:31; Status UNV Lorazepam (Ativan) 2 mg Q6H PO Last administered on 03/26/18at 22:19; Start at 17:00; Stop 03/27/18 at 01:47; Status DC Lorazepam (Ativan) 4 mg PRN Q1HR PRN PO For CIWA 8-14; Start 03/26/18 at 16:45 Lorazepam (Ativan) 2 mg PRN Q1HR PRN IV For CIWA 8-14 Last administered on 04/08at 01:49; Start 03/26/18 at 16:45 Lorazepam (Ativan) 4 mg PRN Q1HR PRN IV For CIWA 15 or greater Last administered on 04/03/18at 00:29; Start 03/26/18 at 16:45 Haloperidol Lactate (Haldol Inj) 5 mg PRN Q4HRS PRN IVP Hallucinatns,Confusn, Delirium Last administered on 04/06/18at 11:21; Start 03/26/18 at 16:45 Diphenhydramine HCl (Benadryl) 25 mg PRN Q15MIN PRN IVP EPS symptoms 2'Haldol admin Last administered on 03/29/18at 08:25; Start 03/26/18 at 16:45 Clonidine HCl (Catapres) 0.1 mg PRN Q1HR PRN PO SBP > 180 or DBP > 100, MRX3 Last administered on 03/27/18at 05:28; Start 03/26/18 at 16:45 Lorazepam (Ativan) 2 mg PRN Q15MIN PRN IV ; Start 03/26/18 at 16:45; Status UNV Lorazepam (Ativan) 4 mg PRN Q15MIN PRN IV ; Start 03/26/18 at 16:45; Status UNV Pantoprazole Sodium (PROTONIX VIAL for IV PUSH) 40 mg DAILYAC IVP ; Start at 07:30; Status UNV Enoxaparin Sodium (Lovenox 40mg Syringe) 40 mg Q24H SQ Last administered on at 21:54; Start 03/26/18 at 21:00 Albuterol Sulfate (Ventolin Neb Soln) 2.5 mg PRN Q2HRS PRN NEB SHORTNESS OF BREATH Last administered on 03/29/18at 04:12; Start 03/26/18 at 17:00; Stop 03/30 at 13:29; Status DC Non-Formulary Medication (Albuterol Sulfate (Proair Hfa Inhaler)) 1 puff PRN Q4HRS PRN INH SHORTNESS OF BREATH; Start 03/26/18 at 16:45; Status UNV Non-Formulary Medication (Budesonide/ Formoterol Fumarate (Symbicort 160-4.5 Mcg Inhaler)) 2 puff BID IH ; Start 03/26/18 at 21:00; Status UNV Theophylline (Theodur) 300 mg BID PO Last administered on 03/30/18at 08:45; Start 03/26/18 at 21:00; Stop 04/02/18 at 08:50; Status DC Budesonide (Pulmicort) 0.5 mg RTBID NEB Last administered on 04/08/18at 08:00; Start 03/26/18 at 20:00 Albuterol Sulfate (Ventolin Neb Soln) 2.5 mg RTQID NEB Last administered on at 12:28; Start 03/26/18 at 20:00; Stop 03/30/18 at 13:24; Status DC Sodium Chloride 1,000 ml @ 1,000 mls/hr 1X ONCE IV Last administered on at 12:23; Start 03/27/18 at 12:15; Stop 03/27/18 at 13:14; Status DC Sodium Chloride 1,000 ml @ 1,000 mls/hr 1X ONCE IV Last administered on at 13:05; Start 03/27/18 at 12:15; Stop 03/27/18 at 13:14; Status DC Sodium Chloride 1,000 ml @ 1,000 mls/hr 1X ONCE IV Last administered on at 14:11; Start 03/27/18 at 12:15; Stop 03/27/18 at 13:14; Status DC Sodium Chloride 136 ml @ 500 mls/hr 1X ONCE IV Last administered on at 12:15; Start 03/27/18 at 12:15; Stop 03/27/18 at 12:31; Status DC Piperacillin Sod/ Tazobactam Sod 3.375 gm/Sodium Chloride 50 ml @ 100 mls/hr Q6HRS IV Last administered on 03/31/18at 12:16; Start 03/27/18 at 16:00; Stop at 13:38; Status DC Morphine Sulfate (Morphine Sulfate) 2 mg PRN Q2HR PRN IV PAIN Last administered on 03/31/18at 10:42; Start 03/27/18 at 16:45 Ondansetron HCl (Zofran) 4 mg PRN Q6HRS PRN IV NAUSEA/VOMITING Last administered on 03/28/18at 02:34; Start 03/27/18 at 16:45 Sodium Chloride 1,000 ml @ 125 mls/hr Q8H IV Last administered on 03/29/18at 10 :14; Start 03/27/18 at 17:45; Stop 03/29/18 at 14:21; Status DC Diazepam (Valium) 5 mg PRN Q2HR PRN PO Agitation/Alcohol withdraw Last administered on 03/29/18at 02:47; Start 03/29/18 at 01:45 Belladonna Alkaloids/Opium (B & O) 1 supp PRN Q12HR PRN DC BLADDER SPASM Last administered on 03/29/18at 02:58; Start 03/29/18 at 01:45 Dexmedetomidine HCl 200 mcg/ Sodium Chloride 50 ml @ 0 mls/hr CONT PRN IV PER PROTOCOL Last administered on 04/08/18at 09:28; Start 03/29/18 at 08:30 Sodium Chloride 500 ml @ 500 mls/hr 1X PRN PRN IV SEE COMMENTS; Start at 08:30 Atropine Sulfate (ATROPINE 0.5mg SYRINGE) 0.5 mg PRN Q5MIN PRN IV SEE COMMENTS ; Start 03/29/18 at 08:30 Potassium Chloride (Klor-Con) 40 meq 1X ONCE PO Last administered on at 14:25; Start 03/29/18 at 13:15; Stop 03/29/18 at 13:16; Status DC Potassium Chloride/Sodium Chloride 1,000 ml @ 75 mls/hr [id number] IV Last administered on 04/01/18at 08:47; Start 03/29/18 at 14:15; Stop 04/01/18 at 13:39 ; Status DC Pantoprazole Sodium (Protonix) 40 mg DAILYAC PO ; Start 03/31/18 at 07:30; Stop 03/31/18 at 11:32; Status DC Albuterol Sulfate (Ventolin Neb Soln) 2.5 mg PRN Q4HRS PRN NEB WHEEZING Last administered on 04/03/18at 08:13; Start 03/30/18 at 13:30 Micafungin Sodium 100 mg/Dextrose 100 ml @ 100 mls/hr Q24H IV Last administered on 04/05/18at 15:07; Start 03/30/18 at 15:00; Stop 04/06/18 at 08:05 ; Status DC Linezolid/Dextrose 300 ml @ 300 mls/hr Q12HR IV Last administered on at 21:33; Start 03/30/18 at 14:00; Stop 04/06/18 at 08:05; Status DC Olanzapine (ZyPREXA IM) 10 mg PRN Q8HRS PRN IM ANXIETY / AGITATION; Start 03/30 at 14:00; Stop 04/07/18 at 14:49; Status DC Labetalol HCl (Normodyne Iv Push) 20 mg PRN Q2HR PRN IVP GIVE FOR SBP > 180 DBP >110 Last administered on 03/31/18at 10:02; Start 03/30/18 at 17:15 Acetaminophen (Tylenol Supp) 650 mg PRN Q6HRS PRN DC MILD PAIN / TEMP Last administered on 03/31/18at 15:02; Start 03/30/18 at 17:15 Iohexol (Omnipaque 300 Mg/ml) 75 ml 1X ONCE IV ; Start 03/31/18 at 09:15; Stop 03/31/18 at 09:16; Status DC Info (CONTRAST GIVEN -- Rx MONITORING) 1 each PRN DAILY PRN MC SEE COMMENTS; Start 03/31/18 at 09:15; Stop 04/02/18 at 09:14; Status DC Iohexol (Omnipaque 300 Mg/ml) 75 ml 1X ONCE IV Last administered on 03/31/18at 10:29; Start 03/31/18 at 10:00; Stop 03/31/18 at 10:04; Status DC Fentanyl Citrate 30 ml @ 0 mls/hr CONT PRN IV PER PROTOCOL Last administered on 04/08/18at 13:59; Start 03/31/18 at 11:00 Lorazepam (Ativan) 2 mg STK-MED ONCE .ROUTE ; Start 03/31/18 at 11:02; Stop at 11:03; Status DC Vecuronium [place] (Norcuron Bolus) 10 mg STK-MED ONCE IV ; Start 03/31/18 at 11 :05; Stop 03/31/18 at 11:06; Status DC Propofol 100 ml @ As Directed STK-MED ONCE IV ; Start 03/31/18 at 11:08; Stop 03/31/18 at 11:09; Status DC Vecuronium [place] (Norcuron Bolus) 10 mg STK-MED ONCE IV ; Start 03/31/18 at 11 :08; Stop 03/31/18 at 11:10; Status DC Succinylcholine Chloride (Anectine) 200 mg 1X ONCE IV ; Start 03/31/18 at 11:30 ; Stop 03/31/18 at 11:31; Status DC Propofol 100 ml @ 0 mls/hr CONT PRN IV PER PROTOCOL Last administered on at 11:27; Start 03/31/18 at 11:30 Chlorhexidine Gluconate (Peridex) 15 ml BID MM Last administered on 04/08/18at 07:56; Start 03/31/18 at 21:00 Pantoprazole Sodium (PROTONIX VIAL for IV PUSH) 40 mg DAILYAC IVP Last administered on 04/08/18at 07:56; Start 04/01/18 at 07:30 Vecuronium [place] (Norcuron Bolus) 10 mg 1X ONCE IV Last administered on 03/31at 11:58; Start 03/31/18 at 12:00; Stop 03/31/18 at 12:01; Status DC Meropenem 500 mg/ Sodium Chloride 50 ml @ 100 mls/hr Q6HRS IV Last administered on 04/08/18at 11:27; Start 03/31/18 at 18:00 Info (Tpn Per Pharmacy) 1 each PRN DAILY PRN MC SEE COMMENTS Last administered on 04/07/18at 12:32; Start 03/31/18 at 14:00 Sodium Chloride 45 meq/Sodium Acetate 45 meq/ Potassium Chloride 50 meq/ Potassium Phosphate 13.6 mmol/Magnesium Sulfate 10 meq/ Calcium Gluconate 10 meq / Multivitamins 10 ml/Chromium/ Copper/Manganese/ Seleni/Zn 1 ml/ Folic Acid 1 mg/ Thiamine HCl 100 mg/Total Donna... 1,512 ml @ 63 mls/hr TPN CONT IV Last administered on 03/31/18at 21:41; Start 03/31/18 at 22:00; Stop 04/01/18 at 21:59; Status DC Octreotide Acetate (SandoSTATIN) 100 mcg Q8HRS SQ Last administered on at 06:14; Start 03/31/18 at 15:30; Stop 04/05/18 at 11:58; Status DC Vecuronium [place] (Norcuron Bolus) 10 mg STK-MED ONCE IV ; Start 03/31/18 at 11 :10; Stop 04/01/18 at 09:10; Status DC Lorazepam (Ativan) 2 mg STK-MED ONCE .ROUTE ; Start 03/31/18 at 11:10; Stop at 09:10; Status DC Sodium Chloride 45 meq/Sodium Acetate 45 meq/ Potassium Chloride 70 meq/ Potassium Phosphate 13.6 mmol/Magnesium Sulfate 10 meq/ Calcium Gluconate 10 meq / Multivitamins 10 ml/Chromium/ Copper/Manganese/ Seleni/Zn 1 ml/ Folic Acid 1 mg/ Thiamine HCl 100 mg/Total Donna... 1,512 ml @ 63 mls/hr TPN CONT IV Last administered on 04/01/18at 22:35; Start 04/01/18 at 22:00; Stop 04/02/18 at 21:59; Status DC Furosemide (Lasix) 20 mg 1X ONCE IVP Last administered on 04/02/18at 09:12; Start 04/02/18 at 09:30; Stop 04/02/18 at 09:31; Status DC Sodium Chloride 45 meq/Sodium Acetate 45 meq/ Potassium Chloride 70 meq/ Potassium Phosphate 13.6 mmol/Magnesium Sulfate 10 meq/ Calcium Gluconate 10 meq / Multivitamins 10 ml/Chromium/ Copper/Manganese/ Seleni/Zn 1 ml/ Folic Acid 1 mg/ Thiamine HCl 100 mg/Total Donna... 1,512 ml @ 63 mls/hr TPN CONT IV Last administered on 04/02/18at 22:18; Start 04/02/18 at 22:00; Stop 04/03/18 at 21:59; Status DC Multi-Ingred Cream/Lotion/Oil/ Oint (Artificial Tears Eye Ointment) 1 rosemary Q12HR OU Last administered on 04/08/18at 07:56; Start 04/02/18 at 14:00 Sodium Chloride 45 meq/Sodium Acetate 45 meq/ Potassium Chloride 70 meq/ Potassium Phosphate 13.6 mmol/Magnesium Sulfate 10 meq/ Calcium Gluconate 10 meq / Multivitamins 10 ml/Chromium/ Copper/Manganese/ Seleni/Zn 1 ml/ Folic Acid 1 mg/ Thiamine HCl 100 mg/Total Donna... 1,512 ml @ 63 mls/hr TPN CONT IV Last administered on 04/03/18at 21:11; Start 04/03/18 at 22:00; Stop 04/04/18 at 21:59; Status DC Sodium Chloride 60 meq/Sodium Acetate 50 meq/ Potassium Chloride 70 meq/ Potassium Phosphate 13.6 mmol/Magnesium Sulfate 10 meq/ Calcium Gluconate 10 meq / Multivitamins 10 ml/Chromium/ Copper/Manganese/ Seleni/Zn 1 ml/ Folic Acid 1 mg/ Thiamine HCl 100 mg/Total Donna... 1,512 ml @ 63 mls/hr TPN CONT IV Last administered on 04/04/18at 21:40; Start 04/04/18 at 22:00; Stop 04/05/18 at 21:59; Status DC Sodium Chloride 50 meq/Sodium Acetate 50 meq/ Potassium Chloride 70 meq/ Potassium Phosphate 13.6 mmol/Magnesium Sulfate 10 meq/ Calcium Gluconate 10 meq / Multivitamins 10 ml/Chromium/ Copper/Manganese/ Seleni/Zn 1 ml/ Folic Acid 1 mg/ Thiamine HCl 100 mg/Total Donna... 1,512 ml @ 63 mls/hr TPN CONT IV Last administered on 04/05/18at 21:34; Start 04/05/18 at 22:00; Stop 04/06/18 at 21:59; Status DC Sodium Chloride 50 meq/Sodium Acetate 50 meq/ Potassium Chloride 70 meq/ Potassium Phosphate 13.6 mmol/Magnesium Sulfate 10 meq/ Calcium Gluconate 10 meq / Multivitamins 10 ml/Chromium/ Copper/Manganese/ Seleni/Zn 1 ml/ Folic Acid 1 mg/ Thiamine HCl 100 mg/Total Donna... 1,512 ml @ 63 mls/hr TPN CONT IV Last administered on 04/06/18at 21:24; Start 04/06/18 at 22:00; Stop 04/07/18 at 21:59; Status DC Iohexol (Omnipaque 300 Mg/ml) 75 ml 1X ONCE IV Last administered on 04/06/18at 11:45; Start 04/06/18 at 11:45; Stop 04/06/18 at 11:46; Status DC Info (CONTRAST GIVEN -- Rx MONITORING) 1 each PRN DAILY PRN MC SEE COMMENTS; Start 04/06/18 at 11:45; Stop 04/08/18 at 11:44; Status DC Sodium Chloride 50 meq/Sodium Acetate 50 meq/ Potassium Chloride 65 meq/ Potassium Phosphate 13.6 mmol/Magnesium Sulfate 10 meq/ Calcium Gluconate 10 meq / Multivitamins 10 ml/Chromium/ Copper/Manganese/ Seleni/Zn 1 ml/ Folic Acid 1 mg/ Thiamine HCl 100 mg/Total Donna... 1,512 ml @ 63 mls/hr TPN CONT IV Last administered on 04/07/18at 21:55; Start 04/07/18 at 22:00; Stop 04/08/18 at 21:59 Olanzapine (ZyPREXA IM) 10 mg Q8HRS PRN IM ANXIETY / AGITATION; Start 04/07/18 at 15:00; Stop 04/07/18 at 15:00; Status DC Olanzapine (ZyPREXA IM) 10 mg Q8HRS PRN IM AGITATION; Start 04/07/18 at 15:00; Stop 04/07/18 at 15:23; Status DC Olanzapine (ZyPREXA IM) 10 mg Q8HRS IM Last administered on 04/08/18at 05:50; Start 04/07/18 at 15:00; Stop 04/08/18 at 12:44; Status DC Sodium Chloride 50 meq/Sodium Acetate 50 meq/ Potassium Chloride 65 meq/ Potassium Phosphate 13.6 mmol/Magnesium Sulfate 10 meq/ Multivitamins 10 ml/ Chromium/ Copper/Manganese/ Seleni/Zn 1 ml/ Folic Acid 1 mg/ Thiamine HCl 100 mg /Total Parenteral Nutrition/Amino Acids/Dextrose 1,512 ml @ 63 mls/hr TPN CONT IV ; Start 04/08/18 at 22:00; Stop 04/09/18 at 21:59 Haloperidol Lactate (Haldol Inj) 10 mg Q8HRS IV ; Start 04/08/18 at 14:00 Diphenhydramine HCl (Benadryl) 50 mg Q8HRS IVP ; Start 04/08/18 at 14:00 Active Scripts Active Diazepam 5 Mg Tablet 5 Mg PO DAILY Reported Proair Hfa Inhaler (Albuterol Sulfate) 8.5 Gm Hfa.aer.ad 1 Puff INH PRN Q4HRS PRN Duoneb 0.5-3(2.5) Mg/3 Ml (Albuterol/Ipratropium) 3 Ml Ampul.neb 3 Ml NEB Q2HR PRN Symbicort 160-4.5 Mcg Inhaler (Budesonide/Formoterol Fumarate) 10.2 Gm Hfa.aer.ad 2 Puff IH BID Prilosec Otc (Omeprazole Magnesium) 20 Mg Tablet.dr 1 Tab PO DAILY Theophylline (Theophylline Anhydrous) 400 Mg Tablet.er 300 Mg PO BID Vitals/I & O Vital Sign - Last 24 Hours 04/07/18 04/07/18 04/07/18 04/07/18 15:00 15:37 16:00 16:00 Temp 98.7 98.7 Pulse 56 51 Resp 18 18 B/P (MAP) 114/65 (81) 111/57 (75) Pulse Ox 99 100 99 O2 Delivery Ventilator Ventilator Mechanical Ventilator Ventilator 04/07/18 04/07/18 04/07/18 04/07/18 17:00 17:42 18:00 19:00 Pulse 45 46 48 Resp 18 18 18 B/P (MAP) 100/49 (66) 93/47 (62) 87/47 (60) Pulse Ox 99 100 99 100 O2 Delivery Ventilator Ventilator Ventilator Ventilator 04/07/18 04/07/18 04/07/18 04/07/18 19:51 20:00 20:00 20:04 Temp 97.2 97.2 Pulse 50 Resp 17 B/P (MAP) 101/49 (66) Pulse Ox 100 100 O2 Delivery Ventilator Mechanical Ventilator Ventilator Ventilator 04/07/18 04/07/18 04/07/18 04/07/18 21:00 21:30 22:00 23:00 Pulse 44 58 48 Resp 18 18 17 B/P (MAP) 109/56 (73) 114/61 (78) 108/54 (72) Pulse Ox 100 100 100 100 O2 Delivery Ventilator Ventilator Ventilator Ventilator 04/07/18 04/08/18 04/08/18 04/08/18 23:40 00:00 00:00 01:00 Temp 99.1 99.1 Pulse 55 61 Resp 17 17 B/P (MAP) 119/62 (81) 124/66 (85) Pulse Ox 100 100 100 O2 Delivery Ventilator Mechanical Ventilator Ventilator Ventilator 04/08/18 04/08/18 04/08/18 04/08/18 01:37 01:40 02:00 03:00 Pulse 63 65 Resp 17 18 B/P (MAP) 123/63 (83) 97/48 (64) Pulse Ox 100 100 100 O2 Delivery Ventilator Ventilator Ventilator Ventilator 04/08/18 04/08/18 04/08/18 04/08/18 03:45 04:00 04:00 04:54 Temp 98.7 98.7 Pulse 57 Resp 17 B/P (MAP) 92/44 (60) Pulse Ox 100 100 100 O2 Delivery Ventilator Ventilator Mechanical Ventilator Ventilator 04/08/18 04/08/18 04/08/18 04/08/18 05:00 06:00 07:00 08:00 Pulse 55 68 66 Resp 18 18 18 B/P (MAP) 110/51 (70) 137/73 (94) 136/71 (92) Pulse Ox 100 100 100 O2 Delivery Ventilator Ventilator Ventilator Mechanical Ventilator 04/08/18 04/08/18 04/08/18 04/08/18 08:00 09:16 10:23 11:32 Resp 18 Pulse Ox 100 98 100 100 O2 Delivery Ventilator Ventilator Ventilator Ventilator 04/08/18 04/08/18 04/08/18 13:05 13:59 14:30 Resp 18 18 Pulse Ox 100 100 100 O2 Delivery Ventilator Ventilator Intake and Output 04/07/18 04/07/18 04/08/18 15:00 23:00 07:00 Intake Total 1547 ml 1278 ml Output Total 850 ml 2090 ml 1355 ml Balance -850 ml -543 ml -77 ml MAY FROST III DO Apr 08, 2018 14:57
[2018-04-08] MEDS: TPN PER PHARMACY MC PRN (15:57)
[2018-04-08] MEDS: ENOXAPARIN 40 MG/0.4 ML SYRINGE. SQ SCH ×2 (19:36→20:40)
[2018-04-08] MEDS ORDERED: TOTAL PARENTERAL NUTRITION IV SCH ×11 (22:00)
[2018-04-08] MEDS ORDERED: DEXTROSE 70% IV SCH ×11 (22:00)
[2018-04-08] MEDS ORDERED: [UNRECOGNIZED DRUG - OTHER] IV SCH ×11 (22:00)
[2018-04-08] MEDS ORDERED: AMINO ACIDS IV SCH ×11 (22:00)
[2018-04-09] VITALS (25 sets, daily range): BP systolic 134–178; BP diastolic 64–111
[2018-04-09] MEDS: MEROPENEM 500 MG in IV NORMAL SALINE 50ML 50 ML IV SCH ×4 (00:07→17:26)
[2018-04-09] MEDS: ALBUTEROL SULFATE 2.5 MG/3 ML NEBU. NEB PRN (01:23)
[2018-04-09] MEDS: DEXMEDETOMIDINE 200 MCG in IV NORMAL SALINE 50ML 48 ML IV PRN ×2 (02:07→07:41)
[2018-04-09] MEDS: HALOPERIDOL LACTATE 5 MG/ML VIAL. IV SCH ×3 (05:28→21:41)
[2018-04-09] MEDS: diphenhydrAMINE 50 MG/ML VIAL IVP SCH ×3 (05:29→21:39)
[2018-04-09 06:58] LABS: BASO # 0.1 x10^3/uL (0.0-0.2); BASO % 1 % (0-3); EOS # 0.2 x10^3/uL (0.0-0.7); EOS % 2 % (0-3); HEMATOCRIT 26.7 % (39.0-53.0); HEMOGLOBIN 8.9 g/dL (13.0-17.5); LYMPH # 1.5 x10^3/uL (1.0-4.8); LYMPH % 22 % (24-48); MEAN CORPUSCULAR HEMOGLOBIN 26 pg (25-35); MEAN CORPUSCULAR HGB CONC 33 g/dL (31-37); MEAN CORPUSCULAR VOLUME 77 fL (79-100); MONO # 0.6 x10^3/uL (0.0-1.1); MONO % 9 % (0-9); NEUT # 4.5 x10^3uL (1.8-7.7); NEUT % 66 % (31-73); PLATELET COUNT 640 x10^3/uL (140-400); RED BLOOD COUNT 3.48 x10^6/uL (4.30-5.70); RED CELL DISTRIBUTION WIDTH 17.1 % (11.5-14.5); WHITE BLOOD COUNT 6.8 x10^3/uL (4.0-11.0)
[2018-04-09 07:15] LABS: ALBUMIN 2.4 g/dL (3.4-5.0); ALBUMIN/GLOBULIN RATIO 0.4 (1.0-1.7); CALCIUM 9.2 mg/dL (8.5-10.1); CREATININE 0.7 mg/dL (0.7-1.3); GFR 124.3; PHOSPHORUS 3.5 mg/dL (2.6-4.7); POTASSIUM 4.1 mmol/L (3.5-5.1); TOTAL BILIRUBIN 0.5 mg/dL (0.2-1.0); TOTAL PROTEIN 7.9 g/dL (6.4-8.2)
[2018-04-09] MEDS: BUDESONIDE 0.5 MG/2 ML NEBU. NEB SCH ×2 (07:27→19:44)
[2018-04-09] MEDS: ONDANSETRON PF 4 MG/2 ML VIAL. IV PRN ×3 (07:29→21:38)
[2018-04-09] MEDS: PANTOPRAZOLE IV PUSH 40 MG VIAL. IVP SCH (07:29)
[2018-04-09] MEDS: MINERAL OIL/PETROLATUM,WHITE OPHTH OINT 3.5GM TUBE. OU SCH ×2 (09:00→21:00)
[2018-04-09] MEDS: CHLORHEXIDINE 0.12% 15 ML MOUTHWASH. MM SCH ×2 (09:00→21:00)
--- NOTE | 2018-04-09 11:44 | PDOC ---
Infectious Disease Note Subjective Subjective No F/C/s/SOA/N/V/D/abd pain + BM on TPN comfortable ROS ROS o/w neg Vital Sign Vital Signs Vital Signs Date Time Temp Pulse Resp B/P (MAP) Pulse Ox O2 Delivery O2 Flow Rate FiO2 04/09/18 11:00 101 22 150/95 (113) 98 Room Air 04/09/18 08:00 97.5 97.5 04/09/18 00:00 3.0 Physical Exam PHYSICAL EXAM CONST: NAD, coop, in chair Heent Nml conj/ Oc/op - clear NECK: supple. no JVD LUNGS: Breathing nonlabored CV: Regular ABD: Obese, mildly distended ,BS +, NT : Kramer + EXT:edema +, no cyanosis, mitts SKIN: no rash in gen but LUE biceps mild erythema rt central line in place, clean Labs Lab Laboratory Tests Test 04/09/18 06:15 04/09/18 06:49 White Blood Count 6.8 x10^3/uL (4.0-11.0) Red Blood Count 3.48 x10^6/uL (4.30-5.70) Hemoglobin 8.9 g/dL (13.0-17.5) Hematocrit 26.7 % (39.0-53.0) Mean Corpuscular Volume 77 fL (79-100) Mean Corpuscular Hemoglobin 26 pg (25-35) Mean Corpuscular Hemoglobin Concent 33 g/dL (31-37) Red Cell Distribution Width 17.1 % (11.5-14.5) Platelet Count 640 x10^3/uL (140-400) Neutrophils (%) (Auto) 66 % (31-73) Lymphocytes (%) (Auto) 22 % (24-48) Monocytes (%) (Auto) 9 % (0-9) Eosinophils (%) (Auto) 2 % (0-3) Basophils (%) (Auto) 1 % (0-3) Neutrophils # (Auto) 4.5 x10^3uL (1.8-7.7) Lymphocytes # (Auto) 1.5 x10^3/uL (1.0-4.8) Monocytes # (Auto) 0.6 x10^3/uL (0.0-1.1) Eosinophils # (Auto) 0.2 x10^3/uL (0.0-0.7) Basophils # (Auto) 0.1 x10^3/uL (0.0-0.2) Sodium Level 141 mmol/L (136-145) Potassium Level 4.1 mmol/L (3.5-5.1) Chloride Level 105 mmol/L (98-107) Carbon Dioxide Level 25 mmol/L (21-32) Anion Gap 11 (6-14) Blood Urea Nitrogen 17 mg/dL (8-26) Creatinine 0.7 mg/dL (0.7-1.3) Estimated GFR (Cockcroft-Gault) 124.3 BUN/Creatinine Ratio 24 (6-20) Glucose Level 146 mg/dL (70-99) Calcium Level 9.2 mg/dL (8.5-10.1) Phosphorus Level 3.5 mg/dL (2.6-4.7) Magnesium Level 2.0 mg/dL (1.8-2.4) Total Bilirubin 0.5 mg/dL (0.2-1.0) Aspartate Amino Transf (AST/SGOT) 26 U/L (15-37) Alanine Aminotransferase (ALT/SGPT) 31 U/L (16-63) Alkaline Phosphatase 72 U/L (46-116) Total Protein 7.9 g/dL (6.4-8.2) Albumin 2.4 g/dL (3.4-5.0) Albumin/Globulin Ratio 0.4 (1.0-1.7) Triglycerides Level 220 mg/dL (0-150) Glucose (Fingerstick) 141 mg/dL (70-99) Micro Microbiology 03/31/18 Blood Culture - Final, Complete NO GROWTH AFTER 5 DAYS Objective Assessment Fever - better - likely from pancreatitis/occlusive thrombus vs other, cult nonrevealing, resolving. Nml procalcitonin 04/06. D/c'd Micafungin and linezolid ( 03/30- 04/06 ) with neg cults and a week of treatment Rash LUE - mild Leukocytosis resolved Pancreatitis,with worsening changes on ct Encephalopathy, likely medication related ZAIRA - improved Alcoholism with DTs Lung infiltrates likely pulm venous congestion Occlusive thrombus Rt Cephalic vein on TPN Plan Plan of Care Cont Merrem (03/31) BC NGTD F/u LUE rash GI following Withdrawal precautions D/W RN FOREST LEÓN MD Apr 09, 2018 11:44
--- NOTE | 2018-04-09 12:05 | PDOC ---
PROGRESS NOTES Chief Complaint Chief Complaint Acute Pancreatitis Alcohol abuse and withdrawal AMS metabolic encephalopathy with alcohol withdrawal Severe agitation with homocide ideation requiring sedation and intubation 03/31 Acute hypoxic resp failure h/o Asthma GERD HTN Possible sepsis wo clear etiology Morbid obesity Leukocytosis Hepatic lesions on CT History of Present Illness History of Present Illness Pt seen and examined in ICU Dw RN Pt extubated yesterday at 1800 Sitting upright in chair Vitals Vitals Vital Signs Date Time Temp Pulse Resp B/P (MAP) Pulse Ox O2 Delivery O2 Flow Rate FiO2 04/09/18 11:00 101 22 150/95 (113) 98 Room Air 04/09/18 08:00 97.5 97.5 04/09/18 00:00 3.0 Physical Exam Physical Exam General: Alert, Cooperative, No acute distress Heart: Regular rate, Normal S1, Normal S2 Lungs: Clear, Other (clear) Abdomen: Soft, No masses Extremities: No cyanosis, No edema Skin: No rashes, No breakdown Labs LABS Laboratory Tests Test 04/09/18 06:15 04/09/18 06:49 White Blood Count 6.8 x10^3/uL (4.0-11.0) Red Blood Count 3.48 x10^6/uL (4.30-5.70) Hemoglobin 8.9 g/dL (13.0-17.5) Hematocrit 26.7 % (39.0-53.0) Mean Corpuscular Volume 77 fL (79-100) Mean Corpuscular Hemoglobin 26 pg (25-35) Mean Corpuscular Hemoglobin Concent 33 g/dL (31-37) Red Cell Distribution Width 17.1 % (11.5-14.5) Platelet Count 640 x10^3/uL (140-400) Neutrophils (%) (Auto) 66 % (31-73) Lymphocytes (%) (Auto) 22 % (24-48) Monocytes (%) (Auto) 9 % (0-9) Eosinophils (%) (Auto) 2 % (0-3) Basophils (%) (Auto) 1 % (0-3) Neutrophils # (Auto) 4.5 x10^3uL (1.8-7.7) Lymphocytes # (Auto) 1.5 x10^3/uL (1.0-4.8) Monocytes # (Auto) 0.6 x10^3/uL (0.0-1.1) Eosinophils # (Auto) 0.2 x10^3/uL (0.0-0.7) Basophils # (Auto) 0.1 x10^3/uL (0.0-0.2) Sodium Level 141 mmol/L (136-145) Potassium Level 4.1 mmol/L (3.5-5.1) Chloride Level 105 mmol/L (98-107) Carbon Dioxide Level 25 mmol/L (21-32) Anion Gap 11 (6-14) Blood Urea Nitrogen 17 mg/dL (8-26) Creatinine 0.7 mg/dL (0.7-1.3) Estimated GFR (Cockcroft-Gault) 124.3 BUN/Creatinine Ratio 24 (6-20) Glucose Level 146 mg/dL (70-99) Calcium Level 9.2 mg/dL (8.5-10.1) Phosphorus Level 3.5 mg/dL (2.6-4.7) Magnesium Level 2.0 mg/dL (1.8-2.4) Total Bilirubin 0.5 mg/dL (0.2-1.0) Aspartate Amino Transf (AST/SGOT) 26 U/L (15-37) Alanine Aminotransferase (ALT/SGPT) 31 U/L (16-63) Alkaline Phosphatase 72 U/L (46-116) Total Protein 7.9 g/dL (6.4-8.2) Albumin 2.4 g/dL (3.4-5.0) Albumin/Globulin Ratio 0.4 (1.0-1.7) Triglycerides Level 220 mg/dL (0-150) Glucose (Fingerstick) 141 mg/dL (70-99) Review of Systems Review of Systems AxO 1 Denies fever Mild hunger pains Assessment and Plan Assessmemt and Plan Assessment: Acute Pancreatitis Alcohol abuse and withdrawal AMS metabolic encephalopathy with alcohol withdrawal Severe agitation with homocide ideation requiring sedation and intubation 03/31 Acute hypoxic resp failure h/o Asthma GERD HTN Possible sepsis wo clear etiology Morbid obesity Leukocytosis Hepatic lesions on CT Plan: ICU monitoring ST evaluation pending Transfer out of ICU if subspecialty agree PT/OT TPN [place] Comment Review of Relevant I have reviewed the following items wali (where applicable) has been applied. Labs Laboratory Tests Test 04/08/18 06:00 04/08/18 08:00 04/08/18 08:23 04/09/18 06:15 White Blood Count 5.9 x10^3/uL (4.0-11.0) 6.8 x10^3/uL (4.0-11.0) Red Blood Count 3.50 x10^6/uL (4.30-5.70) 3.48 x10^6/uL (4.30-5.70) Hemoglobin 8.8 g/dL (13.0-17.5) 8.9 g/dL (13.0-17.5) Hematocrit 26.8 % (39.0-53.0) 26.7 % (39.0-53.0) Mean Corpuscular Volume 77 fL (79-100) 77 fL (79-100) Mean Corpuscular Hemoglobin 25 pg (25-35) 26 pg (25-35) Mean Corpuscular Hemoglobin Concent 33 g/dL (31-37) 33 g/dL (31-37) Red Cell Distribution Width 17.3 % (11.5-14.5) 17.1 % (11.5-14.5) Platelet Count 547 x10^3/uL (140-400) 640 x10^3/uL (140-400) Neutrophils (%) (Auto) 55 % (31-73) 66 % (31-73) Lymphocytes (%) (Auto) 31 % (24-48) 22 % (24-48) Monocytes (%) (Auto) 10 % (0-9) 9 % (0-9) Eosinophils (%) (Auto) 4 % (0-3) 2 % (0-3) Basophils (%) (Auto) 1 % (0-3) 1 % (0-3) Neutrophils # (Auto) 3.2 x10^3uL (1.8-7.7) 4.5 x10^3uL (1.8-7.7) Lymphocytes # (Auto) 1.8 x10^3/uL (1.0-4.8) 1.5 x10^3/uL (1.0-4.8) Monocytes # (Auto) 0.6 x10^3/uL (0.0-1.1) 0.6 x10^3/uL (0.0-1.1) Eosinophils # (Auto) 0.2 x10^3/uL (0.0-0.7) 0.2 x10^3/uL (0.0-0.7) Basophils # (Auto) 0.1 x10^3/uL (0.0-0.2) 0.1 x10^3/uL (0.0-0.2) Segmented Neutrophils % 56 % (35-66) Band Neutrophils % 11 % (0-9) Lymphocytes % 19 % (24-48) Monocytes % 10 % (0-10) Eosinophils % 3 % (0-5) Metamyelocytes % 1 % (0-0) Platelet Estimate Increased (ADEQUATE) Large Platelets Present Anisocytosis Slight Microcytosis Present Sodium Level 141 mmol/L (136-145) 141 mmol/L (136-145) Potassium Level 4.5 mmol/L (3.5-5.1) 4.1 mmol/L (3.5-5.1) Chloride Level 105 mmol/L (98-107) 105 mmol/L (98-107) Carbon Dioxide Level 28 mmol/L (21-32) 25 mmol/L (21-32) Anion Gap 8 (6-14) 11 (6-14) Blood Urea Nitrogen 19 mg/dL (8-26) 17 mg/dL (8-26) Creatinine 0.7 mg/dL (0.7-1.3) 0.7 mg/dL (0.7-1.3) Estimated GFR (Cockcroft-Gault) 124.3 124.3 Glucose Level 124 mg/dL (70-99) 146 mg/dL (70-99) Calcium Level 9.5 mg/dL (8.5-10.1) 9.2 mg/dL (8.5-10.1) O2 Saturation 97 % (92-99) Arterial Blood pH 7.47 (7.35-7.45) Arterial Blood pCO2 at Patient Temp 37 mmHg (35-46) Arterial Blood pO2 at Patient Temp 101 mmHg (75-108) Arterial Blood HCO3 26 mmol/L (21-28) Arterial Blood Base Excess 3 mmol/L (-3-3) FiO2 35 Glucose (Fingerstick) 126 mg/dL (70-99) BUN/Creatinine Ratio 24 (6-20) Phosphorus Level 3.5 mg/dL (2.6-4.7) Magnesium Level 2.0 mg/dL (1.8-2.4) Total Bilirubin 0.5 mg/dL (0.2-1.0) Aspartate Amino Transf (AST/SGOT) 26 U/L (15-37) Alanine Aminotransferase (ALT/SGPT) 31 U/L (16-63) Alkaline Phosphatase 72 U/L (46-116) Total Protein 7.9 g/dL (6.4-8.2) Albumin 2.4 g/dL (3.4-5.0) Albumin/Globulin Ratio 0.4 (1.0-1.7) Triglycerides Level 220 mg/dL (0-150) Test 04/09/18 06:49 Glucose (Fingerstick) 141 mg/dL (70-99) Laboratory Tests Test 04/09/18 06:15 04/09/18 06:49 White Blood Count 6.8 x10^3/uL (4.0-11.0) Red Blood Count 3.48 x10^6/uL (4.30-5.70) Hemoglobin 8.9 g/dL (13.0-17.5) Hematocrit 26.7 % (39.0-53.0) Mean Corpuscular Volume 77 fL (79-100) Mean Corpuscular Hemoglobin 26 pg (25-35) Mean Corpuscular Hemoglobin Concent 33 g/dL (31-37) Red Cell Distribution Width 17.1 % (11.5-14.5) Platelet Count 640 x10^3/uL (140-400) Neutrophils (%) (Auto) 66 % (31-73) Lymphocytes (%) (Auto) 22 % (24-48) Monocytes (%) (Auto) 9 % (0-9) Eosinophils (%) (Auto) 2 % (0-3) Basophils (%) (Auto) 1 % (0-3) Neutrophils # (Auto) 4.5 x10^3uL (1.8-7.7) Lymphocytes # (Auto) 1.5 x10^3/uL (1.0-4.8) Monocytes # (Auto) 0.6 x10^3/uL (0.0-1.1) Eosinophils # (Auto) 0.2 x10^3/uL (0.0-0.7) Basophils # (Auto) 0.1 x10^3/uL (0.0-0.2) Sodium Level 141 mmol/L (136-145) Potassium Level 4.1 mmol/L (3.5-5.1) Chloride Level 105 mmol/L (98-107) Carbon Dioxide Level 25 mmol/L (21-32) Anion Gap 11 (6-14) Blood Urea Nitrogen 17 mg/dL (8-26) Creatinine 0.7 mg/dL (0.7-1.3) Estimated GFR (Cockcroft-Gault) 124.3 BUN/Creatinine Ratio 24 (6-20) Glucose Level 146 mg/dL (70-99) Calcium Level 9.2 mg/dL (8.5-10.1) Phosphorus Level 3.5 mg/dL (2.6-4.7) Magnesium Level 2.0 mg/dL (1.8-2.4) Total Bilirubin 0.5 mg/dL (0.2-1.0) Aspartate Amino Transf (AST/SGOT) 26 U/L (15-37) Alanine Aminotransferase (ALT/SGPT) 31 U/L (16-63) Alkaline Phosphatase 72 U/L (46-116) Total Protein 7.9 g/dL (6.4-8.2) Albumin 2.4 g/dL (3.4-5.0) Albumin/Globulin Ratio 0.4 (1.0-1.7) Triglycerides Level 220 mg/dL (0-150) Glucose (Fingerstick) 141 mg/dL (70-99) Microbiology 03/31/18 Blood Culture - Final, Complete NO GROWTH AFTER 5 DAYS Medications Current Medications Multivitamins 10 ml/Thiamine HCl 100 mg/Folic Acid 1 mg/Sodium Chloride 1,011.2 ml @ 1,000.088 mls/hr 1X ONCE IV Last administered on 03/26/18at 15:07; Start 03/26/18 at 14:00; Stop 03/26/18 at 15:00; Status DC Ondansetron HCl (Zofran) 4 mg 1X ONCE IV Last administered on 03/26/18at 14:13 ; Start 03/26/18 at 14:00; Stop 03/26/18 at 14:10; Status DC Pantoprazole Sodium (PROTONIX VIAL for IV PUSH) 40 mg 1X ONCE IVP Last administered on 03/26/18at 14:13; Start 03/26/18 at 14:00; Stop 03/26/18 at 14:10 ; Status DC Pantoprazole Sodium (PROTONIX VIAL for IV PUSH) 40 mg STK-MED ONCE IVP ; Start 03/26/18 at 14:10; Stop 03/26/18 at 14:11; Status DC Ondansetron HCl (Zofran) 4 mg STK-MED ONCE .ROUTE ; Start 03/26/18 at 14:10; Stop 03/26/18 at 14:11; Status DC Iohexol (Omnipaque 300 Mg/ml) 75 ml 1X ONCE IV Last administered on 03/26/18at 14:38; Start 03/26/18 at 14:45; Stop 03/26/18 at 14:46; Status DC Iohexol (Omnipaque 300 Mg/ml) 100 ml STK-MED ONCE .ROUTE ; Start 03/26/18 at 14: 38; Stop 03/26/18 at 14:39; Status DC Info (CONTRAST GIVEN -- Rx MONITORING) 1 each PRN DAILY PRN MC SEE COMMENTS; Start 03/26/18 at 14:45; Stop 03/28/18 at 14:44; Status DC Ondansetron HCl (Zofran) 4 mg 1X ONCE IV Last administered on 03/26/18at 15:08 ; Start 03/26/18 at 15:00; Stop 03/26/18 at 15:01; Status DC Morphine Sulfate (Morphine Sulfate) 5 mg 1X ONCE IV Last administered on at 15:09; Start 03/26/18 at 15:00; Stop 03/26/18 at 15:01; Status DC Ondansetron HCl (Zofran) 4 mg PRN Q8HRS PRN IV NAUSEA/VOMITING Last administered on 03/27/18at 12:22; Start 03/26/18 at 15:15; Stop 03/27/18 at 15:14 ; Status DC Morphine Sulfate (Morphine Sulfate) 4 mg PRN Q2HR PRN IV PAIN Last administered on 03/27/18at 15:12; Start 03/26/18 at 15:15; Stop 03/27/18 at 15:14 ; Status DC Multivitamins 10 ml/Thiamine HCl 100 mg/Folic Acid 1 mg/Sodium Chloride 1,011.2 ml @ 100 mls/ hr DAILY IV Last administered on 03/30/18at 07:52; Start at 16:00; Stop 03/30/18 at 19:07; Status DC Lorazepam (Ativan) 2 mg PRN Q1HR PRN IV For CIWA 8-14 Last administered on 03/26at 15:59; Start 03/26/18 at 15:15; Stop 03/26/18 at 16:43; Status DC Sodium Chloride 1,000 ml @ 125 mls/hr 1X ONCE IV Last administered on at 02:10; Start 03/26/18 at 15:15; Stop 03/26/18 at 23:14; Status DC Pantoprazole Sodium (PROTONIX VIAL for IV PUSH) 40 mg DAILYAC IVP Last administered on 03/30/18at 07:52; Start 03/27/18 at 07:30; Stop 03/30/18 at 10:52 ; Status DC Multivitamins 10 ml/Thiamine HCl 100 mg/Folic Acid 1 mg/Sodium Chloride 1,011.2 ml @ 100 mls/ hr DAILY IV ; Start 03/27/18 at 09:00; Stop 03/31/18 at 19:07; Status UNV Multivitamins (Thera M Plus) 1 tab DAILY PO ; Start 03/31/18 at 09:00; Stop at 14:18; Status DC Folic Acid (Folic Acid) 1 mg DAILY PO ; Start 03/31/18 at 09:00; Stop 03/31/18 at 14:18; Status DC Thiamine HCl 100 mg/Dextrose 51 ml @ 100 mls/hr DAILY IV ; Start 03/27/18 at 09 :00; Stop 03/31/18 at 09:31; Status UNV Lorazepam (Ativan) 2 mg Q6H PO Last administered on 03/26/18at 22:19; Start at 17:00; Stop 03/27/18 at 01:47; Status DC Lorazepam (Ativan) 4 mg PRN Q1HR PRN PO For CIWA 8-14; Start 03/26/18 at 16:45 Lorazepam (Ativan) 2 mg PRN Q1HR PRN IV For CIWA 8-14 Last administered on 04/09 04:20; Start 03/26/18 at 16:45 Lorazepam (Ativan) 4 mg PRN Q1HR PRN IV For CIWA 15 or greater Last administered on 04/03/18at 00:29; Start 03/26/18 at 16:45 Haloperidol Lactate (Haldol Inj) 5 mg PRN Q4HRS PRN IVP Hallucinatns,Confusn, Delirium Last administered on 04/06/18at 11:21; Start 03/26/18 at 16:45 Diphenhydramine HCl (Benadryl) 25 mg PRN Q15MIN PRN IVP EPS symptoms 2'Haldol admin Last administered on 03/29/18at 08:25; Start 03/26/18 at 16:45 Clonidine HCl (Catapres) 0.1 mg PRN Q1HR PRN PO SBP > 180 or DBP > 100, MRX3 Last administered on 03/27/18at 05:28; Start 03/26/18 at 16:45 Lorazepam (Ativan) 2 mg PRN Q15MIN PRN IV ; Start 03/26/18 at 16:45; Status UNV Lorazepam (Ativan) 4 mg PRN Q15MIN PRN IV ; Start 03/26/18 at 16:45; Status UNV Pantoprazole Sodium (PROTONIX VIAL for IV PUSH) 40 mg DAILYAC IVP ; Start at 07:30; Status UNV Enoxaparin Sodium (Lovenox 40mg Syringe) 40 mg Q24H SQ Last administered on at 20:40; Start 03/26/18 at 21:00 Albuterol Sulfate (Ventolin Neb Soln) 2.5 mg PRN Q2HRS PRN NEB SHORTNESS OF BREATH Last administered on 03/29/18at 04:12; Start 03/26/18 at 17:00; Stop 03/30 at 13:29; Status DC Non-Formulary Medication (Albuterol Sulfate (Proair Hfa Inhaler)) 1 puff PRN Q4HRS PRN INH SHORTNESS OF BREATH; Start 03/26/18 at 16:45; Status UNV Non-Formulary Medication (Budesonide/ Formoterol Fumarate (Symbicort 160-4.5 Mcg Inhaler)) 2 puff BID IH ; Start 03/26/18 at 21:00; Status UNV Theophylline (Theodur) 300 mg BID PO Last administered on 03/30/18at 08:45; Start 03/26/18 at 21:00; Stop 04/02/18 at 08:50; Status DC Budesonide (Pulmicort) 0.5 mg RTBID NEB Last administered on 04/09/18at 07:27; Start 03/26/18 at 20:00 Albuterol Sulfate (Ventolin Neb Soln) 2.5 mg RTQID NEB Last administered on at 12:28; Start 03/26/18 at 20:00; Stop 03/30/18 at 13:24; Status DC Sodium Chloride 1,000 ml @ 1,000 mls/hr 1X ONCE IV Last administered on at 12:23; Start 03/27/18 at 12:15; Stop 03/27/18 at 13:14; Status DC Sodium Chloride 1,000 ml @ 1,000 mls/hr 1X ONCE IV Last administered on at 13:05; Start 03/27/18 at 12:15; Stop 03/27/18 at 13:14; Status DC Sodium Chloride 1,000 ml @ 1,000 mls/hr 1X ONCE IV Last administered on at 14:11; Start 03/27/18 at 12:15; Stop 03/27/18 at 13:14; Status DC Sodium Chloride 136 ml @ 500 mls/hr 1X ONCE IV Last administered on at 12:15; Start 03/27/18 at 12:15; Stop 03/27/18 at 12:31; Status DC Piperacillin Sod/ Tazobactam Sod 3.375 gm/Sodium Chloride 50 ml @ 100 mls/hr Q6HRS IV Last administered on 03/31/18at 12:16; Start 03/27/18 at 16:00; Stop at 13:38; Status DC Morphine Sulfate (Morphine Sulfate) 2 mg PRN Q2HR PRN IV PAIN Last administered on 03/31/18at 10:42; Start 03/27/18 at 16:45 Ondansetron HCl (Zofran) 4 mg PRN Q6HRS PRN IV NAUSEA/VOMITING Last administered on 04/09/18at 07:29; Start 03/27/18 at 16:45 Sodium Chloride 1,000 ml @ 125 mls/hr Q8H IV Last administered on 03/29/18at 10 :14; Start 03/27/18 at 17:45; Stop 03/29/18 at 14:21; Status DC Diazepam (Valium) 5 mg PRN Q2HR PRN PO Agitation/Alcohol withdraw Last administered on 03/29/18at 02:47; Start 03/29/18 at 01:45 Belladonna Alkaloids/Opium (B & O) 1 supp PRN Q12HR PRN TX BLADDER SPASM Last administered on 03/29/18at 02:58; Start 03/29/18 at 01:45 Dexmedetomidine HCl 200 mcg/ Sodium Chloride 50 ml @ 0 mls/hr CONT PRN IV PER PROTOCOL Last administered on 04/09/18at 07:41; Start 03/29/18 at 08:30 Sodium Chloride 500 ml @ 500 mls/hr 1X PRN PRN IV SEE COMMENTS; Start at 08:30 Atropine Sulfate (ATROPINE 0.5mg SYRINGE) 0.5 mg PRN Q5MIN PRN IV SEE COMMENTS ; Start 03/29/18 at 08:30 Potassium Chloride (Klor-Con) 40 meq 1X ONCE PO Last administered on at 14:25; Start 03/29/18 at 13:15; Stop 03/29/18 at 13:16; Status DC Potassium Chloride/Sodium Chloride 1,000 ml @ 75 mls/hr [id number] IV Last administered on 04/01/18at 08:47; Start 03/29/18 at 14:15; Stop 04/01/18 at 13:39 ; Status DC Pantoprazole Sodium (Protonix) 40 mg DAILYAC PO ; Start 03/31/18 at 07:30; Stop 03/31/18 at 11:32; Status DC Albuterol Sulfate (Ventolin Neb Soln) 2.5 mg PRN Q4HRS PRN NEB WHEEZING Last administered on 04/09/18at 01:23; Start 03/30/18 at 13:30 Micafungin Sodium 100 mg/Dextrose 100 ml @ 100 mls/hr Q24H IV Last administered on 04/05/18at 15:07; Start 03/30/18 at 15:00; Stop 04/06/18 at 08:05 ; Status DC Linezolid/Dextrose 300 ml @ 300 mls/hr Q12HR IV Last administered on at 21:33; Start 03/30/18 at 14:00; Stop 04/06/18 at 08:05; Status DC Olanzapine (ZyPREXA IM) 10 mg PRN Q8HRS PRN IM ANXIETY / AGITATION; Start 03/30 at 14:00; Stop 04/07/18 at 14:49; Status DC Labetalol HCl (Normodyne Iv Push) 20 mg PRN Q2HR PRN IVP GIVE FOR SBP > 180 DBP >110 Last administered on 03/31/18at 10:02; Start 03/30/18 at 17:15 Acetaminophen (Tylenol Supp) 650 mg PRN Q6HRS PRN TX MILD PAIN / TEMP Last administered on 03/31/18at 15:02; Start 03/30/18 at 17:15 Iohexol (Omnipaque 300 Mg/ml) 75 ml 1X ONCE IV ; Start 03/31/18 at 09:15; Stop 03/31/18 at 09:16; Status DC Info (CONTRAST GIVEN -- Rx MONITORING) 1 each PRN DAILY PRN MC SEE COMMENTS; Start 03/31/18 at 09:15; Stop 04/02/18 at 09:14; Status DC Iohexol (Omnipaque 300 Mg/ml) 75 ml 1X ONCE IV Last administered on 03/31/18at 10:29; Start 03/31/18 at 10:00; Stop 03/31/18 at 10:04; Status DC Fentanyl Citrate 30 ml @ 0 mls/hr CONT PRN IV PER PROTOCOL Last administered on 04/08/18at 13:59; Start 03/31/18 at 11:00 Lorazepam (Ativan) 2 mg STK-MED ONCE .ROUTE ; Start 03/31/18 at 11:02; Stop at 11:03; Status DC Vecuronium Compton (Norcuron Bolus) 10 mg STK-MED ONCE IV ; Start 03/31/18 at 11 :05; Stop 03/31/18 at 11:06; Status DC Propofol 100 ml @ As Directed STK-MED ONCE IV ; Start 03/31/18 at 11:08; Stop 03/31/18 at 11:09; Status DC Vecuronium Compton (Norcuron Bolus) 10 mg STK-MED ONCE IV ; Start 03/31/18 at 11 :08; Stop 03/31/18 at 11:10; Status DC Succinylcholine Chloride (Anectine) 200 mg 1X ONCE IV ; Start 03/31/18 at 11:30 ; Stop 03/31/18 at 11:31; Status DC Propofol 100 ml @ 0 mls/hr CONT PRN IV PER PROTOCOL Last administered on at 15:13; Start 03/31/18 at 11:30 Chlorhexidine Gluconate (Peridex) 15 ml BID MM Last administered on 04/08/18at 07:56; Start 03/31/18 at 21:00 Pantoprazole Sodium (PROTONIX VIAL for IV PUSH) 40 mg DAILYAC IVP Last administered on 04/09/18at 07:29; Start 04/01/18 at 07:30 Vecuronium Compton (Norcuron Bolus) 10 mg 1X ONCE IV Last administered on 03/31at 11:58; Start 03/31/18 at 12:00; Stop 03/31/18 at 12:01; Status DC Meropenem 500 mg/ Sodium Chloride 50 ml @ 100 mls/hr Q6HRS IV Last administered on 04/09/18at 05:28; Start 03/31/18 at 18:00 Info (Tpn Per Pharmacy) 1 each PRN DAILY PRN MC SEE COMMENTS Last administered on 04/08/18at 15:57; Start 03/31/18 at 14:00 Sodium Chloride 45 meq/Sodium Acetate 45 meq/ Potassium Chloride 50 meq/ Potassium Phosphate 13.6 mmol/Magnesium Sulfate 10 meq/ Calcium Gluconate 10 meq / Multivitamins 10 ml/Chromium/ Copper/Manganese/ Seleni/Zn 1 ml/ Folic Acid 1 mg/ Thiamine HCl 100 mg/Total Donna... 1,512 ml @ 63 mls/hr TPN CONT IV Last administered on 03/31/18at 21:41; Start 03/31/18 at 22:00; Stop 04/01/18 at 21:59; Status DC Octreotide Acetate (SandoSTATIN) 100 mcg Q8HRS SQ Last administered on at 06:14; Start 03/31/18 at 15:30; Stop 04/05/18 at 11:58; Status DC Vecuronium Compton (Norcuron Bolus) 10 mg STK-MED ONCE IV ; Start 03/31/18 at 11 :10; Stop 04/01/18 at 09:10; Status DC Lorazepam (Ativan) 2 mg STK-MED ONCE .ROUTE ; Start 03/31/18 at 11:10; Stop at 09:10; Status DC Sodium Chloride 45 meq/Sodium Acetate 45 meq/ Potassium Chloride 70 meq/ Potassium Phosphate 13.6 mmol/Magnesium Sulfate 10 meq/ Calcium Gluconate 10 meq / Multivitamins 10 ml/Chromium/ Copper/Manganese/ Seleni/Zn 1 ml/ Folic Acid 1 mg/ Thiamine HCl 100 mg/Total Donna... 1,512 ml @ 63 mls/hr TPN CONT IV Last administered on 04/01/18at 22:35; Start 04/01/18 at 22:00; Stop 04/02/18 at 21:59; Status DC Furosemide (Lasix) 20 mg 1X ONCE IVP Last administered on 04/02/18at 09:12; Start 04/02/18 at 09:30; Stop 04/02/18 at 09:31; Status DC Sodium Chloride 45 meq/Sodium Acetate 45 meq/ Potassium Chloride 70 meq/ Potassium Phosphate 13.6 mmol/Magnesium Sulfate 10 meq/ Calcium Gluconate 10 meq / Multivitamins 10 ml/Chromium/ Copper/Manganese/ Seleni/Zn 1 ml/ Folic Acid 1 mg/ Thiamine HCl 100 mg/Total Donna... 1,512 ml @ 63 mls/hr TPN CONT IV Last administered on 04/02/18at 22:18; Start 04/02/18 at 22:00; Stop 04/03/18 at 21:59; Status DC Multi-Ingred Cream/Lotion/Oil/ Oint (Artificial Tears Eye Ointment) 1 rosemary Q12HR OU Last administered on 04/08/18at 07:56; Start 04/02/18 at 14:00 Sodium Chloride 45 meq/Sodium Acetate 45 meq/ Potassium Chloride 70 meq/ Potassium Phosphate 13.6 mmol/Magnesium Sulfate 10 meq/ Calcium Gluconate 10 meq / Multivitamins 10 ml/Chromium/ Copper/Manganese/ Seleni/Zn 1 ml/ Folic Acid 1 mg/ Thiamine HCl 100 mg/Total Donna... 1,512 ml @ 63 mls/hr TPN CONT IV Last administered on 04/03/18at 21:11; Start 04/03/18 at 22:00; Stop 04/04/18 at 21:59; Status DC Sodium Chloride 60 meq/Sodium Acetate 50 meq/ Potassium Chloride 70 meq/ Potassium Phosphate 13.6 mmol/Magnesium Sulfate 10 meq/ Calcium Gluconate 10 meq / Multivitamins 10 ml/Chromium/ Copper/Manganese/ Seleni/Zn 1 ml/ Folic Acid 1 mg/ Thiamine HCl 100 mg/Total Donna... 1,512 ml @ 63 mls/hr TPN CONT IV Last administered on 04/04/18at 21:40; Start 04/04/18 at 22:00; Stop 04/05/18 at 21:59; Status DC Sodium Chloride 50 meq/Sodium Acetate 50 meq/ Potassium Chloride 70 meq/ Potassium Phosphate 13.6 mmol/Magnesium Sulfate 10 meq/ Calcium Gluconate 10 meq / Multivitamins 10 ml/Chromium/ Copper/Manganese/ Seleni/Zn 1 ml/ Folic Acid 1 mg/ Thiamine HCl 100 mg/Total Donna... 1,512 ml @ 63 mls/hr TPN CONT IV Last administered on 04/05/18at 21:34; Start 04/05/18 at 22:00; Stop 04/06/18 at 21:59; Status DC Sodium Chloride 50 meq/Sodium Acetate 50 meq/ Potassium Chloride 70 meq/ Potassium Phosphate 13.6 mmol/Magnesium Sulfate 10 meq/ Calcium Gluconate 10 meq / Multivitamins 10 ml/Chromium/ Copper/Manganese/ Seleni/Zn 1 ml/ Folic Acid 1 mg/ Thiamine HCl 100 mg/Total Donna... 1,512 ml @ 63 mls/hr TPN CONT IV Last administered on 04/06/18at 21:24; Start 04/06/18 at 22:00; Stop 04/07/18 at 21:59; Status DC Iohexol (Omnipaque 300 Mg/ml) 75 ml 1X ONCE IV Last administered on 04/06/18at 11:45; Start 04/06/18 at 11:45; Stop 04/06/18 at 11:46; Status DC Info (CONTRAST GIVEN -- Rx MONITORING) 1 each PRN DAILY PRN MC SEE COMMENTS; Start 04/06/18 at 11:45; Stop 04/08/18 at 11:44; Status DC Sodium Chloride 50 meq/Sodium Acetate 50 meq/ Potassium Chloride 65 meq/ Potassium Phosphate 13.6 mmol/Magnesium Sulfate 10 meq/ Calcium Gluconate 10 meq / Multivitamins 10 ml/Chromium/ Copper/Manganese/ Seleni/Zn 1 ml/ Folic Acid 1 mg/ Thiamine HCl 100 mg/Total Donna... 1,512 ml @ 63 mls/hr TPN CONT IV Last administered on 04/07/18at 21:55; Start 04/07/18 at 22:00; Stop 04/08/18 at 21:59; Status DC Olanzapine (ZyPREXA IM) 10 mg Q8HRS PRN IM ANXIETY / AGITATION; Start 04/07/18 at 15:00; Stop 04/07/18 at 15:00; Status DC Olanzapine (ZyPREXA IM) 10 mg Q8HRS PRN IM AGITATION; Start 04/07/18 at 15:00; Stop 04/07/18 at 15:23; Status DC Olanzapine (ZyPREXA IM) 10 mg Q8HRS IM Last administered on 04/08/18at 05:50; Start 04/07/18 at 15:00; Stop 04/08/18 at 12:44; Status DC Sodium Chloride 50 meq/Sodium Acetate 50 meq/ Potassium Chloride 65 meq/ Potassium Phosphate 13.6 mmol/Magnesium Sulfate 10 meq/ Multivitamins 10 ml/ Chromium/ Copper/Manganese/ Seleni/Zn 1 ml/ Folic Acid 1 mg/ Thiamine HCl 100 mg /Total Parenteral Nutrition/Amino Acids/Dextrose 1,512 ml @ 63 mls/hr TPN CONT IV Last administered on 04/08/18at 21:56; Start 04/08/18 at 22:00; Stop at 21:59 Haloperidol Lactate (Haldol Inj) 10 mg Q8HRS IV Last administered on 04/09/18at 05:28; Start 04/08/18 at 14:00 Diphenhydramine HCl (Benadryl) 50 mg Q8HRS IVP Last administered on 04/09/18at 05:29; Start 04/08/18 at 14:00 Active Scripts Active Diazepam 5 Mg Tablet 5 Mg PO DAILY Reported Proair Hfa Inhaler (Albuterol Sulfate) 8.5 Gm Hfa.aer.ad 1 Puff INH PRN Q4HRS PRN Duoneb 0.5-3(2.5) Mg/3 Ml (Albuterol/Ipratropium) 3 Ml Ampul.neb 3 Ml NEB Q2HR PRN Symbicort 160-4.5 Mcg Inhaler (Budesonide/Formoterol Fumarate) 10.2 Gm Hfa.aer.ad 2 Puff IH BID Prilosec Otc (Omeprazole Magnesium) 20 Mg Tablet.dr 1 Tab PO DAILY Theophylline (Theophylline Anhydrous) 400 Mg Tablet.er 300 Mg PO BID Vitals/I & O Vital Sign - Last 24 Hours 04/08/18 04/08/18 04/08/18 04/08/18 12:00 12:00 13:00 13:05 Temp 98.0 98.0 Pulse 72 66 Resp 18 18 B/P (MAP) 100/53 (69) 89/43 (58) Pulse Ox 100 100 100 O2 Delivery Mechanical Ventilator Ventilator Ventilator Ventilator 04/08/18 04/08/18 04/08/18 04/08/18 13:59 14:00 14:30 15:00 Pulse 54 54 Resp 18 18 18 18 B/P (MAP) 89/46 (60) 97/50 (66) Pulse Ox 100 100 100 100 O2 Delivery Ventilator Ventilator Ventilator 04/08/18 04/08/18 04/08/18 04/08/18 16:00 16:00 16:02 17:00 Temp 98.7 98.7 Pulse 52 52 Resp 18 18 B/P (MAP) 90/46 (61) 94/49 (64) Pulse Ox 100 100 100 O2 Delivery Ventilator Mechanical Ventilator Ventilator Ventilator 04/08/18 04/08/18 04/08/18 04/08/18 18:00 19:00 19:55 20:00 Pulse 74 79 Resp 18 22 B/P (MAP) 116/77 (90) 111/56 (74) Pulse Ox 100 98 96 O2 Delivery Nasal Cannula Nasal Cannula Nasal Cannula Nasal Cannula O2 Flow Rate 3.0 3.0 5.0 3.0 04/08/18 04/08/18 04/08/18 04/08/18 20:02 21:05 22:00 23:00 Temp 97.4 97.4 Pulse 75 78 75 76 Resp 22 15 15 15 B/P (MAP) 119/68 (85) 136/70 (92) 121/70 (87) 130/72 (91) Pulse Ox 98 97 98 98 O2 Delivery Nasal Cannula Room Air Room Air Room Air O2 Flow Rate 3.0 04/09/18 04/09/18 04/09/18 04/09/18 00:00 00:00 01:00 01:24 Temp 97.6 97.6 Pulse 88 76 Resp 15 15 B/P (MAP) 138/75 (96) 136/74 (94) Pulse Ox 98 98 98 O2 Delivery Room Air Nasal Cannula Room Air Room Air O2 Flow Rate 3.0 04/09/18 04/09/18 04/09/18 04/09/18 02:00 03:09 04:15 04:17 Temp 97.4 97.4 Pulse 85 73 82 Resp 15 15 15 B/P (MAP) 140/80 (100) 148/81 (103) 137/74 (95) Pulse Ox 100 98 97 O2 Delivery Room Air Room Air Room Air Room Air 04/09/18 04/09/18 04/09/18 04/09/18 05:00 06:04 07:00 07:27 Pulse 85 93 75 Resp 15 15 12 B/P (MAP) 137/71 (93) 159/111 (127) 138/83 (101) Pulse Ox 98 97 99 98 O2 Delivery Room Air Room Air Room Air Room Air 04/09/18 04/09/18 04/09/18 04/09/18 08:00 08:00 09:00 10:00 Temp 97.5 97.5 Pulse 80 74 93 Resp 16 18 20 B/P (MAP) 134/74 (94) 138/77 (97) 146/90 (108) Pulse Ox 97 98 98 O2 Delivery Room Air Room Air Room Air Room Air 04/09/18 11:00 Pulse 101 Resp 22 B/P (MAP) 150/95 (113) Pulse Ox 98 O2 Delivery Room Air Intake and Output 04/08/18 04/08/18 04/09/18 15:00 23:00 07:00 Intake Total 50 ml 1477.33 ml 906 ml Output Total 1200 ml 495 ml 1290 ml Balance -1150 ml 982.33 ml -384 ml MAY FROST III DO Apr 09, 2018 12:05
[2018-04-09] MEDS: TPN PER PHARMACY MC PRN (12:35)
--- NOTE | 2018-04-09 14:59 | PDOC ---
PULMONARY PROGRESS NOTES Subjective EXTUBATED 04/08 OFF 02 SITTING IN CHAIR Vitals Vital Signs Date Time Temp Pulse Resp B/P (MAP) Pulse Ox O2 Delivery O2 Flow Rate FiO2 04/09/18 14:00 104 24 150/91 (110) 99 Room Air 04/09/18 12:00 97.8 97.8 04/09/18 00:00 3.0 ROS: No Nausea, No Chest Pain, No Abdominal Pain, No Increase Cough Lungs: Clear, Other Cardiovascular: S1 Abdomen: Soft Neuro Exam: Alert Extremities: Other (1+edema) Skin: Warm Labs Laboratory Tests Test 04/08/18 06:00 04/08/18 08:00 04/08/18 08:23 04/09/18 06:15 White Blood Count 5.9 x10^3/uL (4.0-11.0) 6.8 x10^3/uL (4.0-11.0) Red Blood Count 3.50 x10^6/uL (4.30-5.70) 3.48 x10^6/uL (4.30-5.70) Hemoglobin 8.8 g/dL (13.0-17.5) 8.9 g/dL (13.0-17.5) Hematocrit 26.8 % (39.0-53.0) 26.7 % (39.0-53.0) Mean Corpuscular Volume 77 fL (79-100) 77 fL (79-100) Mean Corpuscular Hemoglobin 25 pg (25-35) 26 pg (25-35) Mean Corpuscular Hemoglobin Concent 33 g/dL (31-37) 33 g/dL (31-37) Red Cell Distribution Width 17.3 % (11.5-14.5) 17.1 % (11.5-14.5) Platelet Count 547 x10^3/uL (140-400) 640 x10^3/uL (140-400) Neutrophils (%) (Auto) 55 % (31-73) 66 % (31-73) Lymphocytes (%) (Auto) 31 % (24-48) 22 % (24-48) Monocytes (%) (Auto) 10 % (0-9) 9 % (0-9) Eosinophils (%) (Auto) 4 % (0-3) 2 % (0-3) Basophils (%) (Auto) 1 % (0-3) 1 % (0-3) Neutrophils # (Auto) 3.2 x10^3uL (1.8-7.7) 4.5 x10^3uL (1.8-7.7) Lymphocytes # (Auto) 1.8 x10^3/uL (1.0-4.8) 1.5 x10^3/uL (1.0-4.8) Monocytes # (Auto) 0.6 x10^3/uL (0.0-1.1) 0.6 x10^3/uL (0.0-1.1) Eosinophils # (Auto) 0.2 x10^3/uL (0.0-0.7) 0.2 x10^3/uL (0.0-0.7) Basophils # (Auto) 0.1 x10^3/uL (0.0-0.2) 0.1 x10^3/uL (0.0-0.2) Segmented Neutrophils % 56 % (35-66) Band Neutrophils % 11 % (0-9) Lymphocytes % 19 % (24-48) Monocytes % 10 % (0-10) Eosinophils % 3 % (0-5) Metamyelocytes % 1 % (0-0) Platelet Estimate Increased (ADEQUATE) Large Platelets Present Anisocytosis Slight Microcytosis Present Sodium Level 141 mmol/L (136-145) 141 mmol/L (136-145) Potassium Level 4.5 mmol/L (3.5-5.1) 4.1 mmol/L (3.5-5.1) Chloride Level 105 mmol/L (98-107) 105 mmol/L (98-107) Carbon Dioxide Level 28 mmol/L (21-32) 25 mmol/L (21-32) Anion Gap 8 (6-14) 11 (6-14) Blood Urea Nitrogen 19 mg/dL (8-26) 17 mg/dL (8-26) Creatinine 0.7 mg/dL (0.7-1.3) 0.7 mg/dL (0.7-1.3) Estimated GFR (Cockcroft-Gault) 124.3 124.3 Glucose Level 124 mg/dL (70-99) 146 mg/dL (70-99) Calcium Level 9.5 mg/dL (8.5-10.1) 9.2 mg/dL (8.5-10.1) O2 Saturation 97 % (92-99) Arterial Blood pH 7.47 (7.35-7.45) Arterial Blood pCO2 at Patient Temp 37 mmHg (35-46) Arterial Blood pO2 at Patient Temp 101 mmHg (75-108) Arterial Blood HCO3 26 mmol/L (21-28) Arterial Blood Base Excess 3 mmol/L (-3-3) FiO2 35 Glucose (Fingerstick) 126 mg/dL (70-99) BUN/Creatinine Ratio 24 (6-20) Phosphorus Level 3.5 mg/dL (2.6-4.7) Magnesium Level 2.0 mg/dL (1.8-2.4) Total Bilirubin 0.5 mg/dL (0.2-1.0) Aspartate Amino Transf (AST/SGOT) 26 U/L (15-37) Alanine Aminotransferase (ALT/SGPT) 31 U/L (16-63) Alkaline Phosphatase 72 U/L (46-116) Total Protein 7.9 g/dL (6.4-8.2) Albumin 2.4 g/dL (3.4-5.0) Albumin/Globulin Ratio 0.4 (1.0-1.7) Triglycerides Level 220 mg/dL (0-150) Test 04/09/18 06:49 04/09/18 12:17 Glucose (Fingerstick) 141 mg/dL (70-99) 138 mg/dL (70-99) Laboratory Tests Test 04/09/18 06:15 04/09/18 06:49 04/09/18 12:17 White Blood Count 6.8 x10^3/uL (4.0-11.0) Red Blood Count 3.48 x10^6/uL (4.30-5.70) Hemoglobin 8.9 g/dL (13.0-17.5) Hematocrit 26.7 % (39.0-53.0) Mean Corpuscular Volume 77 fL (79-100) Mean Corpuscular Hemoglobin 26 pg (25-35) Mean Corpuscular Hemoglobin Concent 33 g/dL (31-37) Red Cell Distribution Width 17.1 % (11.5-14.5) Platelet Count 640 x10^3/uL (140-400) Neutrophils (%) (Auto) 66 % (31-73) Lymphocytes (%) (Auto) 22 % (24-48) Monocytes (%) (Auto) 9 % (0-9) Eosinophils (%) (Auto) 2 % (0-3) Basophils (%) (Auto) 1 % (0-3) Neutrophils # (Auto) 4.5 x10^3uL (1.8-7.7) Lymphocytes # (Auto) 1.5 x10^3/uL (1.0-4.8) Monocytes # (Auto) 0.6 x10^3/uL (0.0-1.1) Eosinophils # (Auto) 0.2 x10^3/uL (0.0-0.7) Basophils # (Auto) 0.1 x10^3/uL (0.0-0.2) Sodium Level 141 mmol/L (136-145) Potassium Level 4.1 mmol/L (3.5-5.1) Chloride Level 105 mmol/L (98-107) Carbon Dioxide Level 25 mmol/L (21-32) Anion Gap 11 (6-14) Blood Urea Nitrogen 17 mg/dL (8-26) Creatinine 0.7 mg/dL (0.7-1.3) Estimated GFR (Cockcroft-Gault) 124.3 BUN/Creatinine Ratio 24 (6-20) Glucose Level 146 mg/dL (70-99) Calcium Level 9.2 mg/dL (8.5-10.1) Phosphorus Level 3.5 mg/dL (2.6-4.7) Magnesium Level 2.0 mg/dL (1.8-2.4) Total Bilirubin 0.5 mg/dL (0.2-1.0) Aspartate Amino Transf (AST/SGOT) 26 U/L (15-37) Alanine Aminotransferase (ALT/SGPT) 31 U/L (16-63) Alkaline Phosphatase 72 U/L (46-116) Total Protein 7.9 g/dL (6.4-8.2) Albumin 2.4 g/dL (3.4-5.0) Albumin/Globulin Ratio 0.4 (1.0-1.7) Triglycerides Level 220 mg/dL (0-150) Glucose (Fingerstick) 141 mg/dL (70-99) 138 mg/dL (70-99) Medications Active Scripts Medications Dose Route/Sig Max Daily Dose Days Date Category Diazepam 5 Mg Tablet 5 Mg PO DAILY 03/05/18 Rx Proair Hfa Inhaler (Albuterol Sulfate) 8.5 Gm Hfa.aer.ad 1 Puff INH PRN Q4HRS PRN 03/02/18 Reported Duoneb 0.5-3(2.5) Mg/3 Ml (Albuterol/Ipratropium) 3 Ml Ampul.neb 3 Ml NEB Q2HR PRN 03/02/18 Reported Symbicort 160-4.5 Mcg Inhaler (Budesonide/Formoterol Fumarate) 10.2 Gm Hfa.aer.ad 2 Puff IH BID 08/13/16 Reported Prilosec Otc (Omeprazole Magnesium) 20 Mg Tablet.dr 1 Tab PO DAILY 04/30/16 Reported Theophylline (Theophylline Anhydrous) 400 Mg Tablet.er 300 Mg PO BID 08/20/[address] ABDOMEN 1. Acute pancreatitis. There has been significant progression of peripancreatic stranding and free fluid and there is interval pancreatic enlargement. No focal pancreatic lesion or pseudocyst is seen. 2. Suspected complex free fluid tracking along the anterior inferior pancreatic tail into the left lower quadrant. There is a small amount of additional free fluid throughout the abdomen and pelvis. 3. New small left greater than right pleural effusions with left greater than right lower lobe compressive atelectasis/partial collapse. 4. Stable hypodense lesions within the liver. These are better characterized on the prior exam due to suboptimal contrast on the current study. Nonemergent assessment with a liver protocol CT or MRI is recommended. 5. Mild hepatomegaly and hepatic steatosis. 6. Small hiatal hernia and distal esophageal mucosal thickening. Correlate for esophagitis. Electronically signed by: Eliana Wright MD (03/31/2018 10:56 AM) [facility] Impression . 1. Acute recurrent alcoholic pancreatitis. 2. SEPSIS 3. Acute Respiratory failure due to above 4. Acute TOXIC/ METABOLIC ACIDOSIS encephalopathy/delirium. 5. History of asthma. 6. ABNORMAL CXR Plan . RESP STATUS IS COMPENSATED OFF 02 WILL CONTINUE SUPPORT START HALDOL AND BENADRYL D/W DR LEÓN REPEAT CT ABD REPORT NOTED ETOH WITHDRAWAL PROTOCOL ANTIBX PER CHASITY ALONSO MD Apr 09, 2018 14:59
[2018-04-09] MEDS: ENOXAPARIN 40 MG/0.4 ML SYRINGE. SQ SCH (21:44)
[2018-04-09] MEDS ORDERED: AMINO ACIDS IV SCH ×12 (22:00)
[2018-04-09] MEDS ORDERED: [UNRECOGNIZED DRUG - OTHER] IV SCH ×12 (22:00)
[2018-04-09] MEDS ORDERED: TOTAL PARENTERAL NUTRITION IV SCH ×12 (22:00)
[2018-04-09] MEDS ORDERED: DEXTROSE 70% IV SCH ×12 (22:00)
[2018-04-10] VITALS (14 sets, daily range): BP systolic 132–200; BP diastolic 75–109
[2018-04-10] MEDS: MEROPENEM 500 MG in IV NORMAL SALINE 50ML 50 ML IV SCH ×5 (00:41→23:32)
[2018-04-10] MEDS ORDERED: SCOPOLAMINE 1.5MG PATCH. TD SCH (01:00)
[2018-04-10] MEDS: LABETALOL 20 MG/4 ML DISP.SYRIN. IVP PRN (02:51)
[2018-04-10] MEDS ORDERED: PROCHLORPERAZINE 10 MG/2 ML VIAL. IV PRN (05:30)
[2018-04-10] MEDS: diphenhydrAMINE 50 MG/ML VIAL IVP SCH ×3 (05:44→22:31)
[2018-04-10] MEDS: HALOPERIDOL LACTATE 5 MG/ML VIAL. IV SCH ×3 (05:45→22:30)
[2018-04-10 06:14] LABS: BASO # 0.1 x10^3/uL (0.0-0.2); BASO % 1 % (0-3); EOS # 0.1 x10^3/uL (0.0-0.7); EOS % 1 % (0-3); HEMATOCRIT 32.1 % (39.0-53.0); HEMOGLOBIN 10.7 g/dL (13.0-17.5); LYMPH # 1.8 x10^3/uL (1.0-4.8); LYMPH % 18 % (24-48); MEAN CORPUSCULAR HEMOGLOBIN 25 pg (25-35); MEAN CORPUSCULAR HGB CONC 33 g/dL (31-37); MEAN CORPUSCULAR VOLUME 77 fL (79-100); MONO # 0.7 x10^3/uL (0.0-1.1); MONO % 7 % (0-9); NEUT # 7.5 x10^3uL (1.8-7.7); NEUT % 73 % (31-73); PLATELET COUNT 790 x10^3/uL (140-400); RED BLOOD COUNT 4.19 x10^6/uL (4.30-5.70); RED CELL DISTRIBUTION WIDTH 17.7 % (11.5-14.5); WHITE BLOOD COUNT 10.3 x10^3/uL (4.0-11.0)
[2018-04-10 06:34] LABS: CALCIUM 9.8 mg/dL (8.5-10.1); CREATININE 0.8 mg/dL (0.7-1.3); GFR 106.5
--- NOTE | 2018-04-10 06:57 | PDOC ---
Infectious Disease Note Subjective Subjective Resting and not combative currently on TPN comfortable Vital Sign Vital Signs Vital Signs Date Time Temp Pulse Resp B/P (MAP) Pulse Ox O2 Delivery O2 Flow Rate FiO2 04/10/18 06:00 94 22 158/78 (104) 96 Nasal Cannula 2.0 04/10/18 04:00 98.8 98.8 Physical Exam PHYSICAL EXAM CONST: NAD, coop, in bed Heent Nml cephalic NECK: supple. no JVD LUNGS: Breathing nonlabored CV: Regular ABD: Obese, mildly distended ,BS +, NT : Kramer + EXT:edema +, no cyanosis, mitts SKIN: no rash in gen but LUE biceps mild erythema - stable rt central line in place, clean Labs Lab Laboratory Tests Test 04/09/18 12:17 04/09/18 18:31 04/10/18 05:51 04/10/18 06:00 Glucose (Fingerstick) 138 mg/dL (70-99) 145 mg/dL (70-99) 173 mg/dL (70-99) Sodium Level 143 mmol/L (136-145) Potassium Level 4.0 mmol/L (3.5-5.1) Chloride Level 104 mmol/L (98-107) Carbon Dioxide Level 27 mmol/L (21-32) Anion Gap 12 (6-14) Blood Urea Nitrogen 18 mg/dL (8-26) Creatinine 0.8 mg/dL (0.7-1.3) Estimated GFR (Cockcroft-Gault) 106.5 Glucose Level 175 mg/dL (70-99) Calcium Level 9.8 mg/dL (8.5-10.1) Micro Microbiology 03/31/18 Blood Culture - Final, Complete NO GROWTH AFTER 5 DAYS Objective Assessment Fever - better - likely from pancreatitis/occlusive thrombus vs other, cult nonrevealing, resolving. Nml procalcitonin 04/06. D/c'd Micafungin and linezolid ( 03/30- 04/06 ) with neg cults and a week of treatment Rash LUE - mild Leukocytosis resolved Pancreatitis,with worsening changes on ct Encephalopathy, likely medication related ZAIRA - improved Alcoholism with DTs Lung infiltrates likely pulm venous congestion Occlusive thrombus Rt Cephalic vein on TPN Plan Plan of Care Cont Merrem (03/31) BC NGTD Cont to f/u LUE rash GI following D/W RN - FOREST Chong MD Apr 10, 2018 06:57
[2018-04-10] MEDS: CHLORHEXIDINE 0.12% 15 ML MOUTHWASH. MM SCH (07:48)
[2018-04-10] MEDS: MINERAL OIL/PETROLATUM,WHITE OPHTH OINT 3.5GM TUBE. OU SCH ×2 (07:49→21:36)
[2018-04-10] MEDS: PANTOPRAZOLE IV PUSH 40 MG VIAL. IVP SCH (07:51)
[2018-04-10] MEDS: BUDESONIDE 0.5 MG/2 ML NEBU. NEB SCH ×2 (08:36→19:38)
[2018-04-10] MEDS: ONDANSETRON PF 4 MG/2 ML VIAL. IV PRN ×3 (08:54→23:38)
--- NOTE | 2018-04-10 09:30 | PDOC ---
Subjective: Subjective: Nausea, a little abd pain. Objective: Objective: GI asked to re-visit. Reviewed w/ RN - vomiting overnight, hiccups this morning. Has been NPO, didn' t pass swallow eval. Emesis is bilious. Receiving Zofran, Benadryl, Compazine, Scopolomine, and Protonix. BM yesterday. Vital Signs: Vital Signs Date Time Temp Pulse Resp B/P (MAP) Pulse Ox O2 Delivery O2 Flow Rate FiO2 04/10/18 08:37 97 Room Air 04/10/18 06:00 94 22 158/78 (104) 2.0 04/10/18 04:00 98.8 98.8 Labs: Laboratory Tests Test 04/09/18 12:17 04/09/18 18:31 04/10/18 05:51 04/10/18 06:00 Glucose (Fingerstick) 138 mg/dL 145 mg/dL 173 mg/dL White Blood Count 10.3 x10^3/uL Red Blood Count 4.19 x10^6/uL Hemoglobin 10.7 g/dL Hematocrit 32.1 % Mean Corpuscular Volume 77 fL Mean Corpuscular Hemoglobin 25 pg Mean Corpuscular Hemoglobin Concent 33 g/dL Red Cell Distribution Width 17.7 % Platelet Count 790 x10^3/uL Neutrophils (%) (Auto) 73 % Lymphocytes (%) (Auto) 18 % Monocytes (%) (Auto) 7 % Eosinophils (%) (Auto) 1 % Basophils (%) (Auto) 1 % Neutrophils # (Auto) 7.5 x10^3uL Lymphocytes # (Auto) 1.8 x10^3/uL Monocytes # (Auto) 0.7 x10^3/uL Eosinophils # (Auto) 0.1 x10^3/uL Basophils # (Auto) 0.1 x10^3/uL Sodium Level 143 mmol/L Potassium Level 4.0 mmol/L Chloride Level 104 mmol/L Carbon Dioxide Level 27 mmol/L Anion Gap 12 Blood Urea Nitrogen 18 mg/dL Creatinine 0.8 mg/dL Estimated GFR (Cockcroft-Gault) 106.5 Glucose Level 175 mg/dL Calcium Level 9.8 mg/dL Imaging: Bedside Swallow Eval Bedside swallow eval completed earlier this date. Pt intubated 03/31-04/08; extubated at ~1800hrs. Pt <24hrs p.extubation at time of this eval. IMPRESSIONS: Moderate oropharyngeal dysphagia w/mild laryngeal dysfunction s/p 8d.intubation. Pt w/impaired phonation, cough and weak, incomplete swallow. Suspect reduced airway closure and associated high risk of aspiration at this time. Anticipate improvement w/additional time s/p vent. Would allow small amts of ice chips, 1 at a time and f/u for progress. RECOMMENDATIONS: NPO except single ice chips in lmtd amts. Results explained to pt w/questionable understanding. [employer] to f/u per POC. PE: GEN: looks ill - has emesis basin LUNGS: room air HEART: RRR ABD: BS+ but quiet, some distention (stable), not particularly tender NEURO/PSYCH: awake, calm A/P: Pancreatitis/alcohol withdrawal -- Now extubated and vomiting. No abd imaging since 04/06 - CT that day w/ stable findings - moderate peripancreatic inflammation extending into the mesentery and left anterior pararenal space, small volume ascites, slightly worse splenomegaly, distended gallbladder. Previous US on 03/26 w/ hepatomegaly and hepatic steatosis, normal GB. RN asking for more for nausea - difficult situation, already taking multiple anti-emetics, will review w/ Dr. Rogers. Suggestion for UGI r/o GOO but remains NPO/failed swallow eval - will start with KUB for now. MESSI GORE Apr 10, 2018 09:30
--- NOTE | 2018-04-10 11:49 | PDOC ---
PROGRESS NOTES Chief Complaint Chief Complaint Acute Pancreatitis Alcohol abuse and withdrawal AMS metabolic encephalopathy with alcohol withdrawal Severe agitation with homocide ideation requiring sedation and intubation 03/31 Acute hypoxic resp failure h/o Asthma GERD HTN Possible sepsis wo clear etiology Morbid obesity Leukocytosis Hepatic lesions on CT History of Present Illness History of Present Illness Pt seen and examined in ICU Dw RN Switched to TPN Vitals Vitals Vital Signs Date Time Temp Pulse Resp B/P (MAP) Pulse Ox O2 Delivery O2 Flow Rate FiO2 04/10/18 11:00 104 22 172/91 (118) 92 Room Air 04/10/18 08:00 97.5 2.0 97.5 Physical Exam Physical Exam CONST: NAD, coop, in bed Heent Nml cephalic NECK: supple. no JVD LUNGS: Breathing nonlabored CV: Regular ABD: Obese, mildly distended ,BS +, NT : Kramer + EXT:edema +, no cyanosis, mitts SKIN: no rash in gen but LUE biceps mild erythema - stable rt central line in place, clean General: Alert, Cooperative, No acute distress Heart: Regular rate, Normal S1, Normal S2 Lungs: Clear, Other Abdomen: Soft, No masses Extremities: No cyanosis, No edema Skin: No rashes, No breakdown Labs LABS Laboratory Tests Test 04/09/18 12:17 04/09/18 18:31 04/10/18 05:51 04/10/18 06:00 Glucose (Fingerstick) 138 mg/dL (70-99) 145 mg/dL (70-99) 173 mg/dL (70-99) White Blood Count 10.3 x10^3/uL (4.0-11.0) Red Blood Count 4.19 x10^6/uL (4.30-5.70) Hemoglobin 10.7 g/dL (13.0-17.5) Hematocrit 32.1 % (39.0-53.0) Mean Corpuscular Volume 77 fL (79-100) Mean Corpuscular Hemoglobin 25 pg (25-35) Mean Corpuscular Hemoglobin Concent 33 g/dL (31-37) Red Cell Distribution Width 17.7 % (11.5-14.5) Platelet Count 790 x10^3/uL (140-400) Neutrophils (%) (Auto) 73 % (31-73) Lymphocytes (%) (Auto) 18 % (24-48) Monocytes (%) (Auto) 7 % (0-9) Eosinophils (%) (Auto) 1 % (0-3) Basophils (%) (Auto) 1 % (0-3) Neutrophils # (Auto) 7.5 x10^3uL (1.8-7.7) Lymphocytes # (Auto) 1.8 x10^3/uL (1.0-4.8) Monocytes # (Auto) 0.7 x10^3/uL (0.0-1.1) Eosinophils # (Auto) 0.1 x10^3/uL (0.0-0.7) Basophils # (Auto) 0.1 x10^3/uL (0.0-0.2) Sodium Level 143 mmol/L (136-145) Potassium Level 4.0 mmol/L (3.5-5.1) Chloride Level 104 mmol/L (98-107) Carbon Dioxide Level 27 mmol/L (21-32) Anion Gap 12 (6-14) Blood Urea Nitrogen 18 mg/dL (8-26) Creatinine 0.8 mg/dL (0.7-1.3) Estimated GFR (Cockcroft-Gault) 106.5 Glucose Level 175 mg/dL (70-99) Calcium Level 9.8 mg/dL (8.5-10.1) Review of Systems Review of Systems Pt resting with NAD Assessment and Plan Assessmemt and Plan Assessment: Acute Pancreatitis Alcohol abuse and withdrawal AMS metabolic encephalopathy with alcohol withdrawal Severe agitation with homocide ideation requiring sedation and intubation 03/31 Acute hypoxic resp failure h/o Asthma GERD HTN Possible sepsis wo clear etiology Morbid obesity Leukocytosis Hepatic lesions on CT Plan: ICU monitoring TPN [place] Labs Home meds Comment Review of Relevant I have reviewed the following items wali (where applicable) has been applied. Labs Laboratory Tests Test 04/09/18 06:15 04/09/18 06:49 04/09/18 12:17 04/09/18 18:31 White Blood Count 6.8 x10^3/uL (4.0-11.0) Red Blood Count 3.48 x10^6/uL (4.30-5.70) Hemoglobin 8.9 g/dL (13.0-17.5) Hematocrit 26.7 % (39.0-53.0) Mean Corpuscular Volume 77 fL (79-100) Mean Corpuscular Hemoglobin 26 pg (25-35) Mean Corpuscular Hemoglobin Concent 33 g/dL (31-37) Red Cell Distribution Width 17.1 % (11.5-14.5) Platelet Count 640 x10^3/uL (140-400) Neutrophils (%) (Auto) 66 % (31-73) Lymphocytes (%) (Auto) 22 % (24-48) Monocytes (%) (Auto) 9 % (0-9) Eosinophils (%) (Auto) 2 % (0-3) Basophils (%) (Auto) 1 % (0-3) Neutrophils # (Auto) 4.5 x10^3uL (1.8-7.7) Lymphocytes # (Auto) 1.5 x10^3/uL (1.0-4.8) Monocytes # (Auto) 0.6 x10^3/uL (0.0-1.1) Eosinophils # (Auto) 0.2 x10^3/uL (0.0-0.7) Basophils # (Auto) 0.1 x10^3/uL (0.0-0.2) Sodium Level 141 mmol/L (136-145) Potassium Level 4.1 mmol/L (3.5-5.1) Chloride Level 105 mmol/L (98-107) Carbon Dioxide Level 25 mmol/L (21-32) Anion Gap 11 (6-14) Blood Urea Nitrogen 17 mg/dL (8-26) Creatinine 0.7 mg/dL (0.7-1.3) Estimated GFR (Cockcroft-Gault) 124.3 BUN/Creatinine Ratio 24 (6-20) Glucose Level 146 mg/dL (70-99) Calcium Level 9.2 mg/dL (8.5-10.1) Phosphorus Level 3.5 mg/dL (2.6-4.7) Magnesium Level 2.0 mg/dL (1.8-2.4) Total Bilirubin 0.5 mg/dL (0.2-1.0) Aspartate Amino Transf (AST/SGOT) 26 U/L (15-37) Alanine Aminotransferase (ALT/SGPT) 31 U/L (16-63) Alkaline Phosphatase 72 U/L (46-116) Total Protein 7.9 g/dL (6.4-8.2) Albumin 2.4 g/dL (3.4-5.0) Albumin/Globulin Ratio 0.4 (1.0-1.7) Triglycerides Level 220 mg/dL (0-150) Glucose (Fingerstick) 141 mg/dL (70-99) 138 mg/dL (70-99) 145 mg/dL (70-99) Test 04/10/18 05:51 04/10/18 06:00 Glucose (Fingerstick) 173 mg/dL (70-99) White Blood Count 10.3 x10^3/uL (4.0-11.0) Red Blood Count 4.19 x10^6/uL (4.30-5.70) Hemoglobin 10.7 g/dL (13.0-17.5) Hematocrit 32.1 % (39.0-53.0) Mean Corpuscular Volume 77 fL (79-100) Mean Corpuscular Hemoglobin 25 pg (25-35) Mean Corpuscular Hemoglobin Concent 33 g/dL (31-37) Red Cell Distribution Width 17.7 % (11.5-14.5) Platelet Count 790 x10^3/uL (140-400) Neutrophils (%) (Auto) 73 % (31-73) Lymphocytes (%) (Auto) 18 % (24-48) Monocytes (%) (Auto) 7 % (0-9) Eosinophils (%) (Auto) 1 % (0-3) Basophils (%) (Auto) 1 % (0-3) Neutrophils # (Auto) 7.5 x10^3uL (1.8-7.7) Lymphocytes # (Auto) 1.8 x10^3/uL (1.0-4.8) Monocytes # (Auto) 0.7 x10^3/uL (0.0-1.1) Eosinophils # (Auto) 0.1 x10^3/uL (0.0-0.7) Basophils # (Auto) 0.1 x10^3/uL (0.0-0.2) Sodium Level 143 mmol/L (136-145) Potassium Level 4.0 mmol/L (3.5-5.1) Chloride Level 104 mmol/L (98-107) Carbon Dioxide Level 27 mmol/L (21-32) Anion Gap 12 (6-14) Blood Urea Nitrogen 18 mg/dL (8-26) Creatinine 0.8 mg/dL (0.7-1.3) Estimated GFR (Cockcroft-Gault) 106.5 Glucose Level 175 mg/dL (70-99) Calcium Level 9.8 mg/dL (8.5-10.1) Laboratory Tests Test 04/09/18 12:17 04/09/18 18:31 04/10/18 05:51 04/10/18 06:00 Glucose (Fingerstick) 138 mg/dL (70-99) 145 mg/dL (70-99) 173 mg/dL (70-99) White Blood Count 10.3 x10^3/uL (4.0-11.0) Red Blood Count 4.19 x10^6/uL (4.30-5.70) Hemoglobin 10.7 g/dL (13.0-17.5) Hematocrit 32.1 % (39.0-53.0) Mean Corpuscular Volume 77 fL (79-100) Mean Corpuscular Hemoglobin 25 pg (25-35) Mean Corpuscular Hemoglobin Concent 33 g/dL (31-37) Red Cell Distribution Width 17.7 % (11.5-14.5) Platelet Count 790 x10^3/uL (140-400) Neutrophils (%) (Auto) 73 % (31-73) Lymphocytes (%) (Auto) 18 % (24-48) Monocytes (%) (Auto) 7 % (0-9) Eosinophils (%) (Auto) 1 % (0-3) Basophils (%) (Auto) 1 % (0-3) Neutrophils # (Auto) 7.5 x10^3uL (1.8-7.7) Lymphocytes # (Auto) 1.8 x10^3/uL (1.0-4.8) Monocytes # (Auto) 0.7 x10^3/uL (0.0-1.1) Eosinophils # (Auto) 0.1 x10^3/uL (0.0-0.7) Basophils # (Auto) 0.1 x10^3/uL (0.0-0.2) Sodium Level 143 mmol/L (136-145) Potassium Level 4.0 mmol/L (3.5-5.1) Chloride Level 104 mmol/L (98-107) Carbon Dioxide Level 27 mmol/L (21-32) Anion Gap 12 (6-14) Blood Urea Nitrogen 18 mg/dL (8-26) Creatinine 0.8 mg/dL (0.7-1.3) Estimated GFR (Cockcroft-Gault) 106.5 Glucose Level 175 mg/dL (70-99) Calcium Level 9.8 mg/dL (8.5-10.1) Microbiology 03/31/18 Blood Culture - Final, Complete NO GROWTH AFTER 5 DAYS Medications Current Medications Multivitamins 10 ml/Thiamine HCl 100 mg/Folic Acid 1 mg/Sodium Chloride 1,011.2 ml @ 1,000.088 mls/hr 1X ONCE IV Last administered on 03/26/18at 15:07; Start 03/26/18 at 14:00; Stop 03/26/18 at 15:00; Status DC Ondansetron HCl (Zofran) 4 mg 1X ONCE IV Last administered on 03/26/18at 14:13 ; Start 03/26/18 at 14:00; Stop 03/26/18 at 14:10; Status DC Pantoprazole Sodium (PROTONIX VIAL for IV PUSH) 40 mg 1X ONCE IVP Last administered on 03/26/18at 14:13; Start 03/26/18 at 14:00; Stop 03/26/18 at 14:10 ; Status DC Pantoprazole Sodium (PROTONIX VIAL for IV PUSH) 40 mg STK-MED ONCE IVP ; Start 03/26/18 at 14:10; Stop 03/26/18 at 14:11; Status DC Ondansetron HCl (Zofran) 4 mg STK-MED ONCE .ROUTE ; Start 03/26/18 at 14:10; Stop 03/26/18 at 14:11; Status DC Iohexol (Omnipaque 300 Mg/ml) 75 ml 1X ONCE IV Last administered on 03/26/18at 14:38; Start 03/26/18 at 14:45; Stop 03/26/18 at 14:46; Status DC Iohexol (Omnipaque 300 Mg/ml) 100 ml STK-MED ONCE .ROUTE ; Start 03/26/18 at 14: 38; Stop 03/26/18 at 14:39; Status DC Info (CONTRAST GIVEN -- Rx MONITORING) 1 each PRN DAILY PRN MC SEE COMMENTS; Start 03/26/18 at 14:45; Stop 03/28/18 at 14:44; Status DC Ondansetron HCl (Zofran) 4 mg 1X ONCE IV Last administered on 03/26/18at 15:08 ; Start 03/26/18 at 15:00; Stop 03/26/18 at 15:01; Status DC Morphine Sulfate (Morphine Sulfate) 5 mg 1X ONCE IV Last administered on at 15:09; Start 03/26/18 at 15:00; Stop 03/26/18 at 15:01; Status DC Ondansetron HCl (Zofran) 4 mg PRN Q8HRS PRN IV NAUSEA/VOMITING Last administered on 03/27/18at 12:22; Start 03/26/18 at 15:15; Stop 03/27/18 at 15:14 ; Status DC Morphine Sulfate (Morphine Sulfate) 4 mg PRN Q2HR PRN IV PAIN Last administered on 03/27/18at 15:12; Start 03/26/18 at 15:15; Stop 03/27/18 at 15:14 ; Status DC Multivitamins 10 ml/Thiamine HCl 100 mg/Folic Acid 1 mg/Sodium Chloride 1,011.2 ml @ 100 mls/ hr DAILY IV Last administered on 03/30/18at 07:52; Start at 16:00; Stop 03/30/18 at 19:07; Status DC Lorazepam (Ativan) 2 mg PRN Q1HR PRN IV For CIWA 8-14 Last administered on 03/26at 15:59; Start 03/26/18 at 15:15; Stop 03/26/18 at 16:43; Status DC Sodium Chloride 1,000 ml @ 125 mls/hr 1X ONCE IV Last administered on at 02:10; Start 03/26/18 at 15:15; Stop 03/26/18 at 23:14; Status DC Pantoprazole Sodium (PROTONIX VIAL for IV PUSH) 40 mg DAILYAC IVP Last administered on 03/30/18at 07:52; Start 03/27/18 at 07:30; Stop 03/30/18 at 10:52 ; Status DC Multivitamins 10 ml/Thiamine HCl 100 mg/Folic Acid 1 mg/Sodium Chloride 1,011.2 ml @ 100 mls/ hr DAILY IV ; Start 03/27/18 at 09:00; Stop 03/31/18 at 19:07; Status UNV Multivitamins (Thera M Plus) 1 tab DAILY PO ; Start 03/31/18 at 09:00; Stop at 14:18; Status DC Folic Acid (Folic Acid) 1 mg DAILY PO ; Start 03/31/18 at 09:00; Stop 03/31/18 at 14:18; Status DC Thiamine HCl 100 mg/Dextrose 51 ml @ 100 mls/hr DAILY IV ; Start 03/27/18 at 09 :00; Stop 03/31/18 at 09:31; Status UNV Lorazepam (Ativan) 2 mg Q6H PO Last administered on 03/26/18at 22:19; Start at 17:00; Stop 03/27/18 at 01:47; Status DC Lorazepam (Ativan) 4 mg PRN Q1HR PRN PO For CIWA 8-14; Start 03/26/18 at 16:45 Lorazepam (Ativan) 2 mg PRN Q1HR PRN IV For CIWA 8-14 Last administered on 04/10at 07:51; Start 03/26/18 at 16:45 Lorazepam (Ativan) 4 mg PRN Q1HR PRN IV For CIWA 15 or greater Last administered on 04/09/18at 14:51; Start 03/26/18 at 16:45 Haloperidol Lactate (Haldol Inj) 5 mg PRN Q4HRS PRN IVP Hallucinatns,Confusn, Delirium Last administered on 04/06/18at 11:21; Start 03/26/18 at 16:45 Diphenhydramine HCl (Benadryl) 25 mg PRN Q15MIN PRN IVP EPS symptoms 2'Haldol admin Last administered on 03/29/18at 08:25; Start 03/26/18 at 16:45 Clonidine HCl (Catapres) 0.1 mg PRN Q1HR PRN PO SBP > 180 or DBP > 100, MRX3 Last administered on 03/27/18at 05:28; Start 03/26/18 at 16:45 Lorazepam (Ativan) 2 mg PRN Q15MIN PRN IV ; Start 03/26/18 at 16:45; Status UNV Lorazepam (Ativan) 4 mg PRN Q15MIN PRN IV ; Start 03/26/18 at 16:45; Status UNV Pantoprazole Sodium (PROTONIX VIAL for IV PUSH) 40 mg DAILYAC IVP ; Start at 07:30; Status UNV Enoxaparin Sodium (Lovenox 40mg Syringe) 40 mg Q24H SQ Last administered on at 21:44; Start 03/26/18 at 21:00 Albuterol Sulfate (Ventolin Neb Soln) 2.5 mg PRN Q2HRS PRN NEB SHORTNESS OF BREATH Last administered on 03/29/18at 04:12; Start 03/26/18 at 17:00; Stop 03/30 at 13:29; Status DC Non-Formulary Medication (Albuterol Sulfate (Proair Hfa Inhaler)) 1 puff PRN Q4HRS PRN INH SHORTNESS OF BREATH; Start 03/26/18 at 16:45; Status UNV Non-Formulary Medication (Budesonide/ Formoterol Fumarate (Symbicort 160-4.5 Mcg Inhaler)) 2 puff BID IH ; Start 03/26/18 at 21:00; Status UNV Theophylline (Theodur) 300 mg BID PO Last administered on 03/30/18at 08:45; Start 03/26/18 at 21:00; Stop 04/02/18 at 08:50; Status DC Budesonide (Pulmicort) 0.5 mg RTBID NEB Last administered on 04/10/18at 08:36; Start 03/26/18 at 20:00 Albuterol Sulfate (Ventolin Neb Soln) 2.5 mg RTQID NEB Last administered on at 12:28; Start 03/26/18 at 20:00; Stop 03/30/18 at 13:24; Status DC Sodium Chloride 1,000 ml @ 1,000 mls/hr 1X ONCE IV Last administered on at 12:23; Start 03/27/18 at 12:15; Stop 03/27/18 at 13:14; Status DC Sodium Chloride 1,000 ml @ 1,000 mls/hr 1X ONCE IV Last administered on at 13:05; Start 03/27/18 at 12:15; Stop 03/27/18 at 13:14; Status DC Sodium Chloride 1,000 ml @ 1,000 mls/hr 1X ONCE IV Last administered on at 14:11; Start 03/27/18 at 12:15; Stop 03/27/18 at 13:14; Status DC Sodium Chloride 136 ml @ 500 mls/hr 1X ONCE IV Last administered on at 12:15; Start 03/27/18 at 12:15; Stop 03/27/18 at 12:31; Status DC Piperacillin Sod/ Tazobactam Sod 3.375 gm/Sodium Chloride 50 ml @ 100 mls/hr Q6HRS IV Last administered on 03/31/18at 12:16; Start 03/27/18 at 16:00; Stop at 13:38; Status DC Morphine Sulfate (Morphine Sulfate) 2 mg PRN Q2HR PRN IV PAIN Last administered on 03/31/18at 10:42; Start 03/27/18 at 16:45 Ondansetron HCl (Zofran) 4 mg PRN Q6HRS PRN IV NAUSEA/VOMITING Last administered on 04/10/18at 08:54; Start 03/27/18 at 16:45 Sodium Chloride 1,000 ml @ 125 mls/hr Q8H IV Last administered on 03/29/18at 10 :14; Start 03/27/18 at 17:45; Stop 03/29/18 at 14:21; Status DC Diazepam (Valium) 5 mg PRN Q2HR PRN PO Agitation/Alcohol withdraw Last administered on 03/29/18at 02:47; Start 03/29/18 at 01:45 Belladonna Alkaloids/Opium (B & O) 1 supp PRN Q12HR PRN MA BLADDER SPASM Last administered on 03/29/18at 02:58; Start 03/29/18 at 01:45 Dexmedetomidine HCl 200 mcg/ Sodium Chloride 50 ml @ 0 mls/hr CONT PRN IV PER PROTOCOL Last administered on 04/09/18at 07:41; Start 03/29/18 at 08:30 Sodium Chloride 500 ml @ 500 mls/hr 1X PRN PRN IV SEE COMMENTS; Start at 08:30 Atropine Sulfate (ATROPINE 0.5mg SYRINGE) 0.5 mg PRN Q5MIN PRN IV SEE COMMENTS ; Start 03/29/18 at 08:30 Potassium Chloride (Klor-Con) 40 meq 1X ONCE PO Last administered on at 14:25; Start 03/29/18 at 13:15; Stop 03/29/18 at 13:16; Status DC Potassium Chloride/Sodium Chloride 1,000 ml @ 75 mls/hr [id number] IV Last administered on 04/01/18at 08:47; Start 03/29/18 at 14:15; Stop 04/01/18 at 13:39 ; Status DC Pantoprazole Sodium (Protonix) 40 mg DAILYAC PO ; Start 03/31/18 at 07:30; Stop 03/31/18 at 11:32; Status DC Albuterol Sulfate (Ventolin Neb Soln) 2.5 mg PRN Q4HRS PRN NEB WHEEZING Last administered on 04/09/18at 01:23; Start 03/30/18 at 13:30 Micafungin Sodium 100 mg/Dextrose 100 ml @ 100 mls/hr Q24H IV Last administered on 04/05/18at 15:07; Start 03/30/18 at 15:00; Stop 04/06/18 at 08:05 ; Status DC Linezolid/Dextrose 300 ml @ 300 mls/hr Q12HR IV Last administered on at 21:33; Start 03/30/18 at 14:00; Stop 04/06/18 at 08:05; Status DC Olanzapine (ZyPREXA IM) 10 mg PRN Q8HRS PRN IM ANXIETY / AGITATION; Start 03/30 at 14:00; Stop 04/07/18 at 14:49; Status DC Labetalol HCl (Normodyne Iv Push) 20 mg PRN Q2HR PRN IVP GIVE FOR SBP > 180 DBP >110 Last administered on 04/10/18at 02:51; Start 03/30/18 at 17:15 Acetaminophen (Tylenol Supp) 650 mg PRN Q6HRS PRN MA MILD PAIN / TEMP Last administered on 03/31/18at 15:02; Start 03/30/18 at 17:15 Iohexol (Omnipaque 300 Mg/ml) 75 ml 1X ONCE IV ; Start 03/31/18 at 09:15; Stop 03/31/18 at 09:16; Status DC Info (CONTRAST GIVEN -- Rx MONITORING) 1 each PRN DAILY PRN MC SEE COMMENTS; Start 03/31/18 at 09:15; Stop 04/02/18 at 09:14; Status DC Iohexol (Omnipaque 300 Mg/ml) 75 ml 1X ONCE IV Last administered on 03/31/18at 10:29; Start 03/31/18 at 10:00; Stop 03/31/18 at 10:04; Status DC Fentanyl Citrate 30 ml @ 0 mls/hr CONT PRN IV PER PROTOCOL Last administered on 04/08/18at 13:59; Start 03/31/18 at 11:00 Lorazepam (Ativan) 2 mg STK-MED ONCE .ROUTE ; Start 03/31/18 at 11:02; Stop at 11:03; Status DC Vecuronium Lillian (Norcuron Bolus) 10 mg STK-MED ONCE IV ; Start 03/31/18 at 11 :05; Stop 03/31/18 at 11:06; Status DC Propofol 100 ml @ As Directed STK-MED ONCE IV ; Start 03/31/18 at 11:08; Stop 03/31/18 at 11:09; Status DC Vecuronium Lillian (Norcuron Bolus) 10 mg STK-MED ONCE IV ; Start 03/31/18 at 11 :08; Stop 03/31/18 at 11:10; Status DC Succinylcholine Chloride (Anectine) 200 mg 1X ONCE IV ; Start 03/31/18 at 11:30 ; Stop 03/31/18 at 11:31; Status DC Propofol 100 ml @ 0 mls/hr CONT PRN IV PER PROTOCOL Last administered on at 15:13; Start 03/31/18 at 11:30 Chlorhexidine Gluconate (Peridex) 15 ml BID MM Last administered on 04/08/18at 07:56; Start 03/31/18 at 21:00 Pantoprazole Sodium (PROTONIX VIAL for IV PUSH) 40 mg DAILYAC IVP Last administered on 04/10/18at 07:51; Start 04/01/18 at 07:30 Vecuronium Lillian (Norcuron Bolus) 10 mg 1X ONCE IV Last administered on 03/31at 11:58; Start 03/31/18 at 12:00; Stop 03/31/18 at 12:01; Status DC Meropenem 500 mg/ Sodium Chloride 50 ml @ 100 mls/hr Q6HRS IV Last administered on 04/10/18at 05:46; Start 03/31/18 at 18:00 Info (Tpn Per Pharmacy) 1 each PRN DAILY PRN MC SEE COMMENTS Last administered on 04/09/18at 12:35; Start 03/31/18 at 14:00 Sodium Chloride 45 meq/Sodium Acetate 45 meq/ Potassium Chloride 50 meq/ Potassium Phosphate 13.6 mmol/Magnesium Sulfate 10 meq/ Calcium Gluconate 10 meq / Multivitamins 10 ml/Chromium/ Copper/Manganese/ Seleni/Zn 1 ml/ Folic Acid 1 mg/ Thiamine HCl 100 mg/Total Donna... 1,512 ml @ 63 mls/hr TPN CONT IV Last administered on 03/31/18at 21:41; Start 03/31/18 at 22:00; Stop 04/01/18 at 21:59; Status DC Octreotide Acetate (SandoSTATIN) 100 mcg Q8HRS SQ Last administered on at 06:14; Start 03/31/18 at 15:30; Stop 04/05/18 at 11:58; Status DC Vecuronium Lillian (Norcuron Bolus) 10 mg STK-MED ONCE IV ; Start 03/31/18 at 11 :10; Stop 04/01/18 at 09:10; Status DC Lorazepam (Ativan) 2 mg STK-MED ONCE .ROUTE ; Start 03/31/18 at 11:10; Stop at 09:10; Status DC Sodium Chloride 45 meq/Sodium Acetate 45 meq/ Potassium Chloride 70 meq/ Potassium Phosphate 13.6 mmol/Magnesium Sulfate 10 meq/ Calcium Gluconate 10 meq / Multivitamins 10 ml/Chromium/ Copper/Manganese/ Seleni/Zn 1 ml/ Folic Acid 1 mg/ Thiamine HCl 100 mg/Total Donna... 1,512 ml @ 63 mls/hr TPN CONT IV Last administered on 04/01/18at 22:35; Start 04/01/18 at 22:00; Stop 04/02/18 at 21:59; Status DC Furosemide (Lasix) 20 mg 1X ONCE IVP Last administered on 04/02/18at 09:12; Start 04/02/18 at 09:30; Stop 04/02/18 at 09:31; Status DC Sodium Chloride 45 meq/Sodium Acetate 45 meq/ Potassium Chloride 70 meq/ Potassium Phosphate 13.6 mmol/Magnesium Sulfate 10 meq/ Calcium Gluconate 10 meq / Multivitamins 10 ml/Chromium/ Copper/Manganese/ Seleni/Zn 1 ml/ Folic Acid 1 mg/ Thiamine HCl 100 mg/Total Donna... 1,512 ml @ 63 mls/hr TPN CONT IV Last administered on 04/02/18at 22:18; Start 04/02/18 at 22:00; Stop 04/03/18 at 21:59; Status DC Multi-Ingred Cream/Lotion/Oil/ Oint (Artificial Tears Eye Ointment) 1 rosemary Q12HR OU Last administered on 04/08/18at 07:56; Start 04/02/18 at 14:00 Sodium Chloride 45 meq/Sodium Acetate 45 meq/ Potassium Chloride 70 meq/ Potassium Phosphate 13.6 mmol/Magnesium Sulfate 10 meq/ Calcium Gluconate 10 meq / Multivitamins 10 ml/Chromium/ Copper/Manganese/ Seleni/Zn 1 ml/ Folic Acid 1 mg/ Thiamine HCl 100 mg/Total Donna... 1,512 ml @ 63 mls/hr TPN CONT IV Last administered on 04/03/18at 21:11; Start 04/03/18 at 22:00; Stop 04/04/18 at 21:59; Status DC Sodium Chloride 60 meq/Sodium Acetate 50 meq/ Potassium Chloride 70 meq/ Potassium Phosphate 13.6 mmol/Magnesium Sulfate 10 meq/ Calcium Gluconate 10 meq / Multivitamins 10 ml/Chromium/ Copper/Manganese/ Seleni/Zn 1 ml/ Folic Acid 1 mg/ Thiamine HCl 100 mg/Total Donna... 1,512 ml @ 63 mls/hr TPN CONT IV Last administered on 04/04/18at 21:40; Start 04/04/18 at 22:00; Stop 04/05/18 at 21:59; Status DC Sodium Chloride 50 meq/Sodium Acetate 50 meq/ Potassium Chloride 70 meq/ Potassium Phosphate 13.6 mmol/Magnesium Sulfate 10 meq/ Calcium Gluconate 10 meq / Multivitamins 10 ml/Chromium/ Copper/Manganese/ Seleni/Zn 1 ml/ Folic Acid 1 mg/ Thiamine HCl 100 mg/Total Donna... 1,512 ml @ 63 mls/hr TPN CONT IV Last administered on 04/05/18at 21:34; Start 04/05/18 at 22:00; Stop 04/06/18 at 21:59; Status DC Sodium Chloride 50 meq/Sodium Acetate 50 meq/ Potassium Chloride 70 meq/ Potassium Phosphate 13.6 mmol/Magnesium Sulfate 10 meq/ Calcium Gluconate 10 meq / Multivitamins 10 ml/Chromium/ Copper/Manganese/ Seleni/Zn 1 ml/ Folic Acid 1 mg/ Thiamine HCl 100 mg/Total Donna... 1,512 ml @ 63 mls/hr TPN CONT IV Last administered on 04/06/18at 21:24; Start 04/06/18 at 22:00; Stop 04/07/18 at 21:59; Status DC Iohexol (Omnipaque 300 Mg/ml) 75 ml 1X ONCE IV Last administered on 04/06/18at 11:45; Start 04/06/18 at 11:45; Stop 04/06/18 at 11:46; Status DC Info (CONTRAST GIVEN -- Rx MONITORING) 1 each PRN DAILY PRN MC SEE COMMENTS; Start 04/06/18 at 11:45; Stop 04/08/18 at 11:44; Status DC Sodium Chloride 50 meq/Sodium Acetate 50 meq/ Potassium Chloride 65 meq/ Potassium Phosphate 13.6 mmol/Magnesium Sulfate 10 meq/ Calcium Gluconate 10 meq / Multivitamins 10 ml/Chromium/ Copper/Manganese/ Seleni/Zn 1 ml/ Folic Acid 1 mg/ Thiamine HCl 100 mg/Total Donna... 1,512 ml @ 63 mls/hr TPN CONT IV Last administered on 04/07/18at 21:55; Start 04/07/18 at 22:00; Stop 04/08/18 at 21:59; Status DC Olanzapine (ZyPREXA IM) 10 mg Q8HRS PRN IM ANXIETY / AGITATION; Start 04/07/18 at 15:00; Stop 04/07/18 at 15:00; Status DC Olanzapine (ZyPREXA IM) 10 mg Q8HRS PRN IM AGITATION; Start 04/07/18 at 15:00; Stop 04/07/18 at 15:23; Status DC Olanzapine (ZyPREXA IM) 10 mg Q8HRS IM Last administered on 04/08/18at 05:50; Start 04/07/18 at 15:00; Stop 04/08/18 at 12:44; Status DC Sodium Chloride 50 meq/Sodium Acetate 50 meq/ Potassium Chloride 65 meq/ Potassium Phosphate 13.6 mmol/Magnesium Sulfate 10 meq/ Multivitamins 10 ml/ Chromium/ Copper/Manganese/ Seleni/Zn 1 ml/ Folic Acid 1 mg/ Thiamine HCl 100 mg /Total Parenteral Nutrition/Amino Acids/Dextrose 1,512 ml @ 63 mls/hr TPN CONT IV Last administered on 04/08/18at 21:56; Start 04/08/18 at 22:00; Stop at 21:59; Status DC Haloperidol Lactate (Haldol Inj) 10 mg Q8HRS IV Last administered on 04/10/18at 05:45; Start 04/08/18 at 14:00 Diphenhydramine HCl (Benadryl) 50 mg Q8HRS IVP Last administered on 04/10/18at 05:44; Start 04/08/18 at 14:00 Sodium Chloride 50 meq/Sodium Acetate 50 meq/ Potassium Chloride 65 meq/ Potassium Phosphate 13.6 mmol/Magnesium Sulfate 10 meq/ Multivitamins 10 ml/ Chromium/ Copper/Manganese/ Seleni/Zn 1 ml/ Folic Acid 1 mg/ Thiamine HCl 100 mg /Total Parenteral Nutrition/Amino Acids/Dextro... 1,492 ml @ 62.167 mls/ hr TPN CONT IV Last administered on 04/09/18at 21:46; Start 04/09/18 at 22:00; Stop 04/10/18 at 21:59 Scopolamine (Transderm-Scop) 1 patch Q3DAYS TD Last administered on 04/10/18at 01:00; Start 04/10/18 at 01:00 Prochlorperazine Edisylate (Compazine) 10 mg PRN Q6HRS PRN IV NAUSEA/VOMITING 2ND CHOICE Last administered on 04/10/18at 05:45; Start 04/10/18 at 05:30 Active Scripts Active Diazepam 5 Mg Tablet 5 Mg PO DAILY Reported Proair Hfa Inhaler (Albuterol Sulfate) 8.5 Gm Hfa.aer.ad 1 Puff INH PRN Q4HRS PRN Duoneb 0.5-3(2.5) Mg/3 Ml (Albuterol/Ipratropium) 3 Ml Ampul.neb 3 Ml NEB Q2HR PRN Symbicort 160-4.5 Mcg Inhaler (Budesonide/Formoterol Fumarate) 10.2 Gm Hfa.aer.ad 2 Puff IH BID Prilosec Otc (Omeprazole Magnesium) 20 Mg Tablet.dr 1 Tab PO DAILY Theophylline (Theophylline Anhydrous) 400 Mg Tablet.er 300 Mg PO BID Vitals/I & O Vital Sign - Last 24 Hours 04/09/18 04/09/18 04/09/18 04/09/18 12:00 12:00 13:00 14:00 Temp 97.8 97.8 Pulse 79 85 104 Resp 18 20 24 B/P (MAP) 134/83 (100) 149/89 (109) 150/91 (110) Pulse Ox 98 99 99 O2 Delivery Room Air Room Air Room Air Room Air 04/09/18 04/09/18 04/09/18 04/09/18 15:01 16:00 16:00 17:00 Temp 98.8 98.8 Pulse 126 120 105 Resp 22 B/P (MAP) 176/102 (126) 160/99 (119) 152/85 (107) Pulse Ox 96 97 100 O2 Delivery Room Air Room Air Room Air Room Air 04/09/18 04/09/18 04/09/18 04/09/18 18:01 19:00 19:43 20:00 Pulse 100 117 Resp 22 B/P (MAP) 152/85 (107) 164/96 (118) Pulse Ox 94 100 92 O2 Delivery Room Air Room Air Room Air Room Air 04/09/18 04/09/18 04/09/18 04/09/18 20:00 21:00 22:00 23:00 Temp 98.8 98.8 Pulse 121 101 118 98 Resp 22 22 22 B/P (MAP) 159/64 (95) 160/90 (113) 161/92 (115) 176/97 (123) Pulse Ox 97 95 95 94 O2 Delivery Room Air Room Air Room Air Room Air 04/09/18 04/09/18 04/10/18 04/10/18 23:59 23:59 01:00 02:00 Temp 98.0 98.0 Pulse 96 110 111 Resp B/P (MAP) 178/90 (119) 171/98 (122) 178/80 (112) Pulse Ox 94 94 92 O2 Delivery Room Air Room Air Room Air Room Air 04/10/18 04/10/18 04/10/18 04/10/18 02:51 03:00 04:00 04:00 Temp 98.8 98.8 Pulse 102 100 93 B/P (MAP) 200/90 200/80 (120) 144/75 (98) Pulse Ox 94 96 O2 Delivery Room Air Room Air Room Air 04/10/18 04/10/18 04/10/18 04/10/18 05:00 06:00 08:00 08:00 Temp 97.5 97.5 Pulse 106 94 84 Resp B/P (MAP) 170/98 (122) 158/78 (104) 197/89 (125) Pulse Ox 96 96 94 O2 Delivery Nasal Cannula Nasal Cannula Room Air Nasal Cannula O2 Flow Rate 2.0 2.0 2.0 04/10/18 04/10/18 04/10/18 04/10/18 08:37 09:00 10:00 11:00 Pulse 102 108 104 Resp B/P (MAP) 186/90 (122) 169/85 (113) 172/91 (118) Pulse Ox 97 93 94 92 O2 Delivery Room Air Room Air Room Air Room Air Intake and Output 04/09/18 04/09/18 04/10/18 15:00 23:00 07:00 Intake Total 95.5 ml 721 ml 844 ml Output Total 845 ml 745 ml 479 ml Balance -749.5 ml -24 ml 365 ml MAY FROST III DO Apr 10, 2018 11:49
[2018-04-10] MEDS: TPN PER PHARMACY MC PRN (12:14)
[2018-04-10 14:08] LABS: ALBUMIN 2.9 g/dL (3.4-5.0); ALBUMIN/GLOBULIN RATIO 0.5 (1.0-1.7); CREATININE 0.8 mg/dL (0.7-1.3); GFR 106.5; POTASSIUM 4.3 mmol/L (3.5-5.1); TOTAL BILIRUBIN 0.5 mg/dL (0.2-1.0)
--- NOTE | 2018-04-10 15:29 | PDOC ---
PULMONARY PROGRESS NOTES Subjective EXTUBATED 04/08 OFF 02 SITTING IN CHAIR Vitals Vital Signs Date Time Temp Pulse Resp B/P (MAP) Pulse Ox O2 Delivery O2 Flow Rate FiO2 04/10/18 11:00 104 22 172/91 (118) 92 Room Air 04/10/18 08:00 97.5 2.0 97.5 ROS: No Nausea, No Chest Pain, No Abdominal Pain, No Increase Cough Lungs: Clear, Other Cardiovascular: S1 Abdomen: Soft Neuro Exam: Alert Extremities: Other (1+edema) Skin: Warm Labs Laboratory Tests Test 04/09/18 06:15 04/09/18 06:49 04/09/18 12:17 04/09/18 18:31 White Blood Count 6.8 x10^3/uL (4.0-11.0) Red Blood Count 3.48 x10^6/uL (4.30-5.70) Hemoglobin 8.9 g/dL (13.0-17.5) Hematocrit 26.7 % (39.0-53.0) Mean Corpuscular Volume 77 fL (79-100) Mean Corpuscular Hemoglobin 26 pg (25-35) Mean Corpuscular Hemoglobin Concent 33 g/dL (31-37) Red Cell Distribution Width 17.1 % (11.5-14.5) Platelet Count 640 x10^3/uL (140-400) Neutrophils (%) (Auto) 66 % (31-73) Lymphocytes (%) (Auto) 22 % (24-48) Monocytes (%) (Auto) 9 % (0-9) Eosinophils (%) (Auto) 2 % (0-3) Basophils (%) (Auto) 1 % (0-3) Neutrophils # (Auto) 4.5 x10^3uL (1.8-7.7) Lymphocytes # (Auto) 1.5 x10^3/uL (1.0-4.8) Monocytes # (Auto) 0.6 x10^3/uL (0.0-1.1) Eosinophils # (Auto) 0.2 x10^3/uL (0.0-0.7) Basophils # (Auto) 0.1 x10^3/uL (0.0-0.2) Sodium Level 141 mmol/L (136-145) Potassium Level 4.1 mmol/L (3.5-5.1) Chloride Level 105 mmol/L (98-107) Carbon Dioxide Level 25 mmol/L (21-32) Anion Gap 11 (6-14) Blood Urea Nitrogen 17 mg/dL (8-26) Creatinine 0.7 mg/dL (0.7-1.3) Estimated GFR (Cockcroft-Gault) 124.3 BUN/Creatinine Ratio 24 (6-20) Glucose Level 146 mg/dL (70-99) Calcium Level 9.2 mg/dL (8.5-10.1) Phosphorus Level 3.5 mg/dL (2.6-4.7) Magnesium Level 2.0 mg/dL (1.8-2.4) Total Bilirubin 0.5 mg/dL (0.2-1.0) Aspartate Amino Transf (AST/SGOT) 26 U/L (15-37) Alanine Aminotransferase (ALT/SGPT) 31 U/L (16-63) Alkaline Phosphatase 72 U/L (46-116) Total Protein 7.9 g/dL (6.4-8.2) Albumin 2.4 g/dL (3.4-5.0) Albumin/Globulin Ratio 0.4 (1.0-1.7) Triglycerides Level 220 mg/dL (0-150) Glucose (Fingerstick) 141 mg/dL (70-99) 138 mg/dL (70-99) 145 mg/dL (70-99) Test 04/10/18 05:51 04/10/18 06:00 04/10/18 13:33 Glucose (Fingerstick) 173 mg/dL (70-99) White Blood Count 10.3 x10^3/uL (4.0-11.0) Red Blood Count 4.19 x10^6/uL (4.30-5.70) Hemoglobin 10.7 g/dL (13.0-17.5) Hematocrit 32.1 % (39.0-53.0) Mean Corpuscular Volume 77 fL (79-100) Mean Corpuscular Hemoglobin 25 pg (25-35) Mean Corpuscular Hemoglobin Concent 33 g/dL (31-37) Red Cell Distribution Width 17.7 % (11.5-14.5) Platelet Count 790 x10^3/uL (140-400) Neutrophils (%) (Auto) 73 % (31-73) Lymphocytes (%) (Auto) 18 % (24-48) Monocytes (%) (Auto) 7 % (0-9) Eosinophils (%) (Auto) 1 % (0-3) Basophils (%) (Auto) 1 % (0-3) Neutrophils # (Auto) 7.5 x10^3uL (1.8-7.7) Lymphocytes # (Auto) 1.8 x10^3/uL (1.0-4.8) Monocytes # (Auto) 0.7 x10^3/uL (0.0-1.1) Eosinophils # (Auto) 0.1 x10^3/uL (0.0-0.7) Basophils # (Auto) 0.1 x10^3/uL (0.0-0.2) Sodium Level 143 mmol/L (136-145) 143 mmol/L (136-145) Potassium Level 4.0 mmol/L (3.5-5.1) 4.3 mmol/L (3.5-5.1) Chloride Level 104 mmol/L (98-107) 104 mmol/L (98-107) Carbon Dioxide Level 27 mmol/L (21-32) 28 mmol/L (21-32) Anion Gap 12 (6-14) 11 (6-14) Blood Urea Nitrogen 18 mg/dL (8-26) 19 mg/dL (8-26) Creatinine 0.8 mg/dL (0.7-1.3) 0.8 mg/dL (0.7-1.3) Estimated GFR (Cockcroft-Gault) 106.5 106.5 Glucose Level 175 mg/dL (70-99) 140 mg/dL (70-99) Calcium Level 9.8 mg/dL (8.5-10.1) 10.0 mg/dL (8.5-10.1) BUN/Creatinine Ratio 24 (6-20) Total Bilirubin 0.5 mg/dL (0.2-1.0) Aspartate Amino Transf (AST/SGOT) 29 U/L (15-37) Alanine Aminotransferase (ALT/SGPT) 44 U/L (16-63) Alkaline Phosphatase 86 U/L (46-116) Total Protein 9.0 g/dL (6.4-8.2) Albumin 2.9 g/dL (3.4-5.0) Albumin/Globulin Ratio 0.5 (1.0-1.7) Laboratory Tests Test 04/09/18 18:31 04/10/18 05:51 04/10/18 06:00 04/10/18 13:33 Glucose (Fingerstick) 145 mg/dL (70-99) 173 mg/dL (70-99) White Blood Count 10.3 x10^3/uL (4.0-11.0) Red Blood Count 4.19 x10^6/uL (4.30-5.70) Hemoglobin 10.7 g/dL (13.0-17.5) Hematocrit 32.1 % (39.0-53.0) Mean Corpuscular Volume 77 fL (79-100) Mean Corpuscular Hemoglobin 25 pg (25-35) Mean Corpuscular Hemoglobin Concent 33 g/dL (31-37) Red Cell Distribution Width 17.7 % (11.5-14.5) Platelet Count 790 x10^3/uL (140-400) Neutrophils (%) (Auto) 73 % (31-73) Lymphocytes (%) (Auto) 18 % (24-48) Monocytes (%) (Auto) 7 % (0-9) Eosinophils (%) (Auto) 1 % (0-3) Basophils (%) (Auto) 1 % (0-3) Neutrophils # (Auto) 7.5 x10^3uL (1.8-7.7) Lymphocytes # (Auto) 1.8 x10^3/uL (1.0-4.8) Monocytes # (Auto) 0.7 x10^3/uL (0.0-1.1) Eosinophils # (Auto) 0.1 x10^3/uL (0.0-0.7) Basophils # (Auto) 0.1 x10^3/uL (0.0-0.2) Sodium Level 143 mmol/L (136-145) 143 mmol/L (136-145) Potassium Level 4.0 mmol/L (3.5-5.1) 4.3 mmol/L (3.5-5.1) Chloride Level 104 mmol/L (98-107) 104 mmol/L (98-107) Carbon Dioxide Level 27 mmol/L (21-32) 28 mmol/L (21-32) Anion Gap 12 (6-14) 11 (6-14) Blood Urea Nitrogen 18 mg/dL (8-26) 19 mg/dL (8-26) Creatinine 0.8 mg/dL (0.7-1.3) 0.8 mg/dL (0.7-1.3) Estimated GFR (Cockcroft-Gault) 106.5 106.5 Glucose Level 175 mg/dL (70-99) 140 mg/dL (70-99) Calcium Level 9.8 mg/dL (8.5-10.1) 10.0 mg/dL (8.5-10.1) BUN/Creatinine Ratio 24 (6-20) Total Bilirubin 0.5 mg/dL (0.2-1.0) Aspartate Amino Transf (AST/SGOT) 29 U/L (15-37) Alanine Aminotransferase (ALT/SGPT) 44 U/L (16-63) Alkaline Phosphatase 86 U/L (46-116) Total Protein 9.0 g/dL (6.4-8.2) Albumin 2.9 g/dL (3.4-5.0) Albumin/Globulin Ratio 0.5 (1.0-1.7) Medications Active Scripts Medications Dose Route/Sig Max Daily Dose Days Date Category Diazepam 5 Mg Tablet 5 Mg PO DAILY 03/05/18 Rx Proair Hfa Inhaler (Albuterol Sulfate) 8.5 Gm Hfa.aer.ad 1 Puff INH PRN Q4HRS PRN 03/02/18 Reported Duoneb 0.5-3(2.5) Mg/3 Ml (Albuterol/Ipratropium) 3 Ml Ampul.neb 3 Ml NEB Q2HR PRN 03/02/18 Reported Symbicort 160-4.5 Mcg Inhaler (Budesonide/Formoterol Fumarate) 10.2 Gm Hfa.aer.ad 2 Puff IH BID 08/13/16 Reported Prilosec Otc (Omeprazole Magnesium) 20 Mg Tablet.dr 1 Tab PO DAILY 04/30/16 Reported Theophylline (Theophylline Anhydrous) 400 Mg Tablet.er 300 Mg PO BID 08/20/[address] ABDOMEN 1. Acute pancreatitis. There has been significant progression of peripancreatic stranding and free fluid and there is interval pancreatic enlargement. No focal pancreatic lesion or pseudocyst is seen. 2. Suspected complex free fluid tracking along the anterior inferior pancreatic tail into the left lower quadrant. There is a small amount of additional free fluid throughout the abdomen and pelvis. 3. New small left greater than right pleural effusions with left greater than right lower lobe compressive atelectasis/partial collapse. 4. Stable hypodense lesions within the liver. These are better characterized on the prior exam due to suboptimal contrast on the current study. Nonemergent assessment with a liver protocol CT or MRI is recommended. 5. Mild hepatomegaly and hepatic steatosis. 6. Small hiatal hernia and distal esophageal mucosal thickening. Correlate for esophagitis. Electronically signed by: Eliana Wright MD (03/31/2018 10:56 AM) [facility] Impression . 1. Acute recurrent alcoholic pancreatitis. 2. SEPSIS 3. Acute Respiratory failure due to above 4. Acute TOXIC/ METABOLIC ACIDOSIS encephalopathy/delirium. 5. History of asthma. 6. ABNORMAL CXR Plan . RESP STATUS IS COMPENSATED OFF 02 WILL SEE PRN ANTIBX PER CHASITY ALONSO MD Apr 10, 2018 15:29
--- NOTE | 2018-04-10 16:33 | RAD ---
Examination: Single frontal view the chest HISTORY: History of central line placement COMPARISON: 04/08/2018 FINDINGS: Low lung volumes and technique accentuates heart and pulmonary vascularity. Right-sided internal jugular line is unchanged. Left-sided internal jugular line tip is identified in the distal SVC region.No pneumothorax. Mild prominent interstitial lung markings likely mild congestive changes. IMPRESSION: 1. Right and left internal jugular lines in place. 2. No pneumothorax. 2. Mild congestive changes improved since prior exam. Electronically signed by: Kosta Hernandez MD (04/10/2018 4:29 PM) [id number]
--- NOTE | 2018-04-10 16:47 | RAD ---
History: Vomiting. Comparison: March 31, 2018. Findings: AP view of the abdomen. Bowel gas pattern is nonspecific, without evidence of obstruction. Impression: Nonspecific bowel gas pattern. Electronically signed by: Obey Milan MD (04/10/2018 4:43 PM) [place] [id number]
[2018-04-10] MEDS: ENOXAPARIN 40 MG/0.4 ML SYRINGE. SQ SCH (21:36)
[2018-04-10] MEDS ORDERED: DEXTROSE 70% IV SCH ×12 (22:00)
[2018-04-10] MEDS ORDERED: TOTAL PARENTERAL NUTRITION IV SCH ×12 (22:00)
[2018-04-10] MEDS ORDERED: AMINO ACIDS IV SCH ×12 (22:00)
[2018-04-10] MEDS ORDERED: [UNRECOGNIZED DRUG - OTHER] IV SCH ×12 (22:00)
[2018-04-10] MEDS: ALBUTEROL SULFATE 2.5 MG/3 ML NEBU. NEB PRN (22:20)
[2018-04-11 03:19] VITALS: BP 157/96
[2018-04-11] MEDS: MEROPENEM 500 MG in IV NORMAL SALINE 50ML 50 ML IV SCH ×4 (06:33→23:34)
[2018-04-11] MEDS: HALOPERIDOL LACTATE 5 MG/ML VIAL. IV SCH ×3 (06:37→22:09)
[2018-04-11 06:58] LABS: BASO # 0.2 x10^3/uL (0.0-0.2); BASO % 2 % (0-3); EOS # 0.3 x10^3/uL (0.0-0.7); EOS % 3 % (0-3); HEMATOCRIT 30.9 % (39.0-53.0); HEMOGLOBIN 9.9 g/dL (13.0-17.5); LYMPH # 2.1 x10^3/uL (1.0-4.8); LYMPH % 20 % (24-48); MEAN CORPUSCULAR HEMOGLOBIN 25 pg (25-35); MEAN CORPUSCULAR HGB CONC 32 g/dL (31-37); MEAN CORPUSCULAR VOLUME 78 fL (79-100); MONO # 0.8 x10^3/uL (0.0-1.1); MONO % 8 % (0-9); NEUT # 6.8 x10^3uL (1.8-7.7); NEUT % 66 % (31-73); PLATELET COUNT 786 x10^3/uL (140-400); RED BLOOD COUNT 3.97 x10^6/uL (4.30-5.70); RED CELL DISTRIBUTION WIDTH 17.6 % (11.5-14.5); WHITE BLOOD COUNT 10.2 x10^3/uL (4.0-11.0)
[2018-04-11 07:00] VITALS: BP 144/88
[2018-04-11] MEDS: PANTOPRAZOLE IV PUSH 40 MG VIAL. IVP SCH (07:28)
[2018-04-11] MEDS: diphenhydrAMINE 50 MG/ML VIAL IVP SCH ×3 (07:28→22:09)
[2018-04-11] MEDS: BUDESONIDE 0.5 MG/2 ML NEBU. NEB SCH ×2 (07:41→19:28)
[2018-04-11] MEDS: TPN PER PHARMACY MC PRN (10:09)
--- NOTE | 2018-04-11 10:44 | PDOC ---
PROGRESS NOTES Chief Complaint Chief Complaint presented with Abd pain N/V and pancreatitis today he feels better , would like to try po , he state no abdominal pain and no nausea History of Present Illness History of Present Illness Acute Pancreatitis Alcohol abuse and withdrawal AMS metabolic encephalopathy with alcohol withdrawal Severe agitation with homocide ideation requiring sedation and intubation 03/31 Acute hypoxic resp failure h/o Asthma GERD HTN Fever - better - likely from pancreatitis/occlusive thrombus vs other, cult nonrevealing, resolving. Nml procalcitonin 04/06. ID D/c'd Micafungin and linezolid ( 03/30- 04/06 ) with neg cults and a week of treatment Morbid obesity Leukocytosis resolving Hepatic lesions on CT ZAIRA - improved Lung infiltrates likely pulm venous congestion Occlusive thrombus Rt Cephalic vein Rash LUE - mild on TPN Plan Plan of Care Cont Merrem (03/31) Cont to monitor LUE rash GI following D/w RN may start po soon Vitals Vitals Vital Signs Date Time Temp Pulse Resp B/P (MAP) Pulse Ox O2 Delivery O2 Flow Rate FiO2 04/11/18 08:15 Room Air 2.0 04/11/18 07:43 93 04/11/18 07:00 96.6 82 18 144/88 (106) 96.6 Physical Exam Physical Exam CONST: NAD, coop, in bed Heent Nml cephalic NECK: supple. no JVD LUNGS: Breathing nonlabored CV: Regular ABD: Obese, mildly distended ,BS +, NT SKIN: no rash in gen but LUE biceps mild erythema - stable rt central line in place, clean General: Alert, Cooperative, No acute distress Heart: Regular rate, Normal S1, Normal S2 Lungs: Clear, Other Abdomen: Soft, No masses Extremities: No cyanosis, No edema Skin: No rashes, No breakdown Labs LABS Laboratory Tests Test 04/10/18 13:33 04/10/18 17:43 04/10/18 17:56 04/10/18 23:17 Sodium Level 143 mmol/L (136-145) Potassium Level 4.3 mmol/L (3.5-5.1) Chloride Level 104 mmol/L (98-107) Carbon Dioxide Level 28 mmol/L (21-32) Anion Gap 11 (6-14) Blood Urea Nitrogen 19 mg/dL (8-26) Creatinine 0.8 mg/dL (0.7-1.3) Estimated GFR (Cockcroft-Gault) 106.5 BUN/Creatinine Ratio 24 (6-20) Glucose Level 140 mg/dL (70-99) Calcium Level 10.0 mg/dL (8.5-10.1) Total Bilirubin 0.5 mg/dL (0.2-1.0) Aspartate Amino Transf (AST/SGOT) 29 U/L (15-37) Alanine Aminotransferase (ALT/SGPT) 44 U/L (16-63) Alkaline Phosphatase 86 U/L (46-116) Total Protein 9.0 g/dL (6.4-8.2) Albumin 2.9 g/dL (3.4-5.0) Albumin/Globulin Ratio 0.5 (1.0-1.7) Glucose (Fingerstick) 113 mg/dL (70-99) 125 mg/dL (70-99) 139 mg/dL (70-99) Test 04/11/18 06:00 04/11/18 06:54 04/11/18 07:30 White Blood Count 10.2 x10^3/uL (4.0-11.0) Red Blood Count 3.97 x10^6/uL (4.30-5.70) Hemoglobin 9.9 g/dL (13.0-17.5) Hematocrit 30.9 % (39.0-53.0) Mean Corpuscular Volume 78 fL (79-100) Mean Corpuscular Hemoglobin 25 pg (25-35) Mean Corpuscular Hemoglobin Concent 32 g/dL (31-37) Red Cell Distribution Width 17.6 % (11.5-14.5) Platelet Count 786 x10^3/uL (140-400) Neutrophils (%) (Auto) 66 % (31-73) Lymphocytes (%) (Auto) 20 % (24-48) Monocytes (%) (Auto) 8 % (0-9) Eosinophils (%) (Auto) 3 % (0-3) Basophils (%) (Auto) 2 % (0-3) Neutrophils # (Auto) 6.8 x10^3uL (1.8-7.7) Lymphocytes # (Auto) 2.1 x10^3/uL (1.0-4.8) Monocytes # (Auto) 0.8 x10^3/uL (0.0-1.1) Eosinophils # (Auto) 0.3 x10^3/uL (0.0-0.7) Basophils # (Auto) 0.2 x10^3/uL (0.0-0.2) Glucose (Fingerstick) 132 mg/dL (70-99) 150 mg/dL (70-99) Assessment and Plan Assessmemt and Plan Problems Medical Problems: (1) Alcoholic pancreatitis Status: Acute (2) ETOH abuse Status: Acute Comment Review of Relevant I have reviewed the following items wali (where applicable) has been applied. Labs Laboratory Tests Test 04/09/18 12:17 04/09/18 18:31 04/10/18 05:51 04/10/18 06:00 Glucose (Fingerstick) 138 mg/dL (70-99) 145 mg/dL (70-99) 173 mg/dL (70-99) White Blood Count 10.3 x10^3/uL (4.0-11.0) Red Blood Count 4.19 x10^6/uL (4.30-5.70) Hemoglobin 10.7 g/dL (13.0-17.5) Hematocrit 32.1 % (39.0-53.0) Mean Corpuscular Volume 77 fL (79-100) Mean Corpuscular Hemoglobin 25 pg (25-35) Mean Corpuscular Hemoglobin Concent 33 g/dL (31-37) Red Cell Distribution Width 17.7 % (11.5-14.5) Platelet Count 790 x10^3/uL (140-400) Neutrophils (%) (Auto) 73 % (31-73) Lymphocytes (%) (Auto) 18 % (24-48) Monocytes (%) (Auto) 7 % (0-9) Eosinophils (%) (Auto) 1 % (0-3) Basophils (%) (Auto) 1 % (0-3) Neutrophils # (Auto) 7.5 x10^3uL (1.8-7.7) Lymphocytes # (Auto) 1.8 x10^3/uL (1.0-4.8) Monocytes # (Auto) 0.7 x10^3/uL (0.0-1.1) Eosinophils # (Auto) 0.1 x10^3/uL (0.0-0.7) Basophils # (Auto) 0.1 x10^3/uL (0.0-0.2) Sodium Level 143 mmol/L (136-145) Potassium Level 4.0 mmol/L (3.5-5.1) Chloride Level 104 mmol/L (98-107) Carbon Dioxide Level 27 mmol/L (21-32) Anion Gap 12 (6-14) Blood Urea Nitrogen 18 mg/dL (8-26) Creatinine 0.8 mg/dL (0.7-1.3) Estimated GFR (Cockcroft-Gault) 106.5 Glucose Level 175 mg/dL (70-99) Calcium Level 9.8 mg/dL (8.5-10.1) Test 04/10/18 13:33 04/10/18 17:43 04/10/18 17:56 04/10/18 23:17 Sodium Level 143 mmol/L (136-145) Potassium Level 4.3 mmol/L (3.5-5.1) Chloride Level 104 mmol/L (98-107) Carbon Dioxide Level 28 mmol/L (21-32) Anion Gap 11 (6-14) Blood Urea Nitrogen 19 mg/dL (8-26) Creatinine 0.8 mg/dL (0.7-1.3) Estimated GFR (Cockcroft-Gault) 106.5 BUN/Creatinine Ratio 24 (6-20) Glucose Level 140 mg/dL (70-99) Calcium Level 10.0 mg/dL (8.5-10.1) Total Bilirubin 0.5 mg/dL (0.2-1.0) Aspartate Amino Transf (AST/SGOT) 29 U/L (15-37) Alanine Aminotransferase (ALT/SGPT) 44 U/L (16-63) Alkaline Phosphatase 86 U/L (46-116) Total Protein 9.0 g/dL (6.4-8.2) Albumin 2.9 g/dL (3.4-5.0) Albumin/Globulin Ratio 0.5 (1.0-1.7) Glucose (Fingerstick) 113 mg/dL (70-99) 125 mg/dL (70-99) 139 mg/dL (70-99) Test 04/11/18 06:00 04/11/18 06:54 04/11/18 07:30 White Blood Count 10.2 x10^3/uL (4.0-11.0) Red Blood Count 3.97 x10^6/uL (4.30-5.70) Hemoglobin 9.9 g/dL (13.0-17.5) Hematocrit 30.9 % (39.0-53.0) Mean Corpuscular Volume 78 fL (79-100) Mean Corpuscular Hemoglobin 25 pg (25-35) Mean Corpuscular Hemoglobin Concent 32 g/dL (31-37) Red Cell Distribution Width 17.6 % (11.5-14.5) Platelet Count 786 x10^3/uL (140-400) Neutrophils (%) (Auto) 66 % (31-73) Lymphocytes (%) (Auto) 20 % (24-48) Monocytes (%) (Auto) 8 % (0-9) Eosinophils (%) (Auto) 3 % (0-3) Basophils (%) (Auto) 2 % (0-3) Neutrophils # (Auto) 6.8 x10^3uL (1.8-7.7) Lymphocytes # (Auto) 2.1 x10^3/uL (1.0-4.8) Monocytes # (Auto) 0.8 x10^3/uL (0.0-1.1) Eosinophils # (Auto) 0.3 x10^3/uL (0.0-0.7) Basophils # (Auto) 0.2 x10^3/uL (0.0-0.2) Glucose (Fingerstick) 132 mg/dL (70-99) 150 mg/dL (70-99) Laboratory Tests Test 04/10/18 13:33 04/10/18 17:43 04/10/18 17:56 04/10/18 23:17 Sodium Level 143 mmol/L (136-145) Potassium Level 4.3 mmol/L (3.5-5.1) Chloride Level 104 mmol/L (98-107) Carbon Dioxide Level 28 mmol/L (21-32) Anion Gap 11 (6-14) Blood Urea Nitrogen 19 mg/dL (8-26) Creatinine 0.8 mg/dL (0.7-1.3) Estimated GFR (Cockcroft-Gault) 106.5 BUN/Creatinine Ratio 24 (6-20) Glucose Level 140 mg/dL (70-99) Calcium Level 10.0 mg/dL (8.5-10.1) Total Bilirubin 0.5 mg/dL (0.2-1.0) Aspartate Amino Transf (AST/SGOT) 29 U/L (15-37) Alanine Aminotransferase (ALT/SGPT) 44 U/L (16-63) Alkaline Phosphatase 86 U/L (46-116) Total Protein 9.0 g/dL (6.4-8.2) Albumin 2.9 g/dL (3.4-5.0) Albumin/Globulin Ratio 0.5 (1.0-1.7) Glucose (Fingerstick) 113 mg/dL (70-99) 125 mg/dL (70-99) 139 mg/dL (70-99) Test 04/11/18 06:00 04/11/18 06:54 04/11/18 07:30 White Blood Count 10.2 x10^3/uL (4.0-11.0) Red Blood Count 3.97 x10^6/uL (4.30-5.70) Hemoglobin 9.9 g/dL (13.0-17.5) Hematocrit 30.9 % (39.0-53.0) Mean Corpuscular Volume 78 fL (79-100) Mean Corpuscular Hemoglobin 25 pg (25-35) Mean Corpuscular Hemoglobin Concent 32 g/dL (31-37) Red Cell Distribution Width 17.6 % (11.5-14.5) Platelet Count 786 x10^3/uL (140-400) Neutrophils (%) (Auto) 66 % (31-73) Lymphocytes (%) (Auto) 20 % (24-48) Monocytes (%) (Auto) 8 % (0-9) Eosinophils (%) (Auto) 3 % (0-3) Basophils (%) (Auto) 2 % (0-3) Neutrophils # (Auto) 6.8 x10^3uL (1.8-7.7) Lymphocytes # (Auto) 2.1 x10^3/uL (1.0-4.8) Monocytes # (Auto) 0.8 x10^3/uL (0.0-1.1) Eosinophils # (Auto) 0.3 x10^3/uL (0.0-0.7) Basophils # (Auto) 0.2 x10^3/uL (0.0-0.2) Glucose (Fingerstick) 132 mg/dL (70-99) 150 mg/dL (70-99) Microbiology 03/31/18 Blood Culture - Final, Complete NO GROWTH AFTER 5 DAYS Medications Current Medications Multivitamins 10 ml/Thiamine HCl 100 mg/Folic Acid 1 mg/Sodium Chloride 1,011.2 ml @ 1,000.088 mls/hr 1X ONCE IV Last administered on 03/26/18at 15:07; Start 03/26/18 at 14:00; Stop 03/26/18 at 15:00; Status DC Ondansetron HCl (Zofran) 4 mg 1X ONCE IV Last administered on 03/26/18at 14:13 ; Start 03/26/18 at 14:00; Stop 03/26/18 at 14:10; Status DC Pantoprazole Sodium (PROTONIX VIAL for IV PUSH) 40 mg 1X ONCE IVP Last administered on 03/26/18at 14:13; Start 03/26/18 at 14:00; Stop 03/26/18 at 14:10 ; Status DC Pantoprazole Sodium (PROTONIX VIAL for IV PUSH) 40 mg STK-MED ONCE IVP ; Start 03/26/18 at 14:10; Stop 03/26/18 at 14:11; Status DC Ondansetron HCl (Zofran) 4 mg STK-MED ONCE .ROUTE ; Start 03/26/18 at 14:10; Stop 03/26/18 at 14:11; Status DC Iohexol (Omnipaque 300 Mg/ml) 75 ml 1X ONCE IV Last administered on 03/26/18at 14:38; Start 03/26/18 at 14:45; Stop 03/26/18 at 14:46; Status DC Iohexol (Omnipaque 300 Mg/ml) 100 ml STK-MED ONCE .ROUTE ; Start 03/26/18 at 14: 38; Stop 03/26/18 at 14:39; Status DC Info (CONTRAST GIVEN -- Rx MONITORING) 1 each PRN DAILY PRN MC SEE COMMENTS; Start 03/26/18 at 14:45; Stop 03/28/18 at 14:44; Status DC Ondansetron HCl (Zofran) 4 mg 1X ONCE IV Last administered on 03/26/18at 15:08 ; Start 03/26/18 at 15:00; Stop 03/26/18 at 15:01; Status DC Morphine Sulfate (Morphine Sulfate) 5 mg 1X ONCE IV Last administered on at 15:09; Start 03/26/18 at 15:00; Stop 03/26/18 at 15:01; Status DC Ondansetron HCl (Zofran) 4 mg PRN Q8HRS PRN IV NAUSEA/VOMITING Last administered on 03/27/18at 12:22; Start 03/26/18 at 15:15; Stop 03/27/18 at 15:14 ; Status DC Morphine Sulfate (Morphine Sulfate) 4 mg PRN Q2HR PRN IV PAIN Last administered on 03/27/18at 15:12; Start 03/26/18 at 15:15; Stop 03/27/18 at 15:14 ; Status DC Multivitamins 10 ml/Thiamine HCl 100 mg/Folic Acid 1 mg/Sodium Chloride 1,011.2 ml @ 100 mls/ hr DAILY IV Last administered on 03/30/18at 07:52; Start at 16:00; Stop 03/30/18 at 19:07; Status DC Lorazepam (Ativan) 2 mg PRN Q1HR PRN IV For CIWA 8-14 Last administered on 03/26at 15:59; Start 03/26/18 at 15:15; Stop 03/26/18 at 16:43; Status DC Sodium Chloride 1,000 ml @ 125 mls/hr 1X ONCE IV Last administered on at 02:10; Start 03/26/18 at 15:15; Stop 03/26/18 at 23:14; Status DC Pantoprazole Sodium (PROTONIX VIAL for IV PUSH) 40 mg DAILYAC IVP Last administered on 03/30/18at 07:52; Start 03/27/18 at 07:30; Stop 03/30/18 at 10:52 ; Status DC Multivitamins 10 ml/Thiamine HCl 100 mg/Folic Acid 1 mg/Sodium Chloride 1,011.2 ml @ 100 mls/ hr DAILY IV ; Start 03/27/18 at 09:00; Stop 03/31/18 at 19:07; Status UNV Multivitamins (Thera M Plus) 1 tab DAILY PO ; Start 03/31/18 at 09:00; Stop at 14:18; Status DC Folic Acid (Folic Acid) 1 mg DAILY PO ; Start 03/31/18 at 09:00; Stop 03/31/18 at 14:18; Status DC Thiamine HCl 100 mg/Dextrose 51 ml @ 100 mls/hr DAILY IV ; Start 03/27/18 at 09 :00; Stop 03/31/18 at 09:31; Status UNV Lorazepam (Ativan) 2 mg Q6H PO Last administered on 03/26/18at 22:19; Start at 17:00; Stop 03/27/18 at 01:47; Status DC Lorazepam (Ativan) 4 mg PRN Q1HR PRN PO For CIWA 8-14; Start 03/26/18 at 16:45 Lorazepam (Ativan) 2 mg PRN Q1HR PRN IV For CIWA 8-14 Last administered on 04/10at 07:51; Start 03/26/18 at 16:45 Lorazepam (Ativan) 4 mg PRN Q1HR PRN IV For CIWA 15 or greater Last administered on 04/09/18at 14:51; Start 03/26/18 at 16:45 Haloperidol Lactate (Haldol Inj) 5 mg PRN Q4HRS PRN IVP Hallucinatns,Confusn, Delirium Last administered on 04/06/18at 11:21; Start 03/26/18 at 16:45 Diphenhydramine HCl (Benadryl) 25 mg PRN Q15MIN PRN IVP EPS symptoms 2'Haldol admin Last administered on 03/29/18at 08:25; Start 03/26/18 at 16:45 Clonidine HCl (Catapres) 0.1 mg PRN Q1HR PRN PO SBP > 180 or DBP > 100, MRX3 Last administered on 03/27/18at 05:28; Start 03/26/18 at 16:45 Lorazepam (Ativan) 2 mg PRN Q15MIN PRN IV ; Start 03/26/18 at 16:45; Status UNV Lorazepam (Ativan) 4 mg PRN Q15MIN PRN IV ; Start 03/26/18 at 16:45; Status UNV Pantoprazole Sodium (PROTONIX VIAL for IV PUSH) 40 mg DAILYAC IVP ; Start at 07:30; Status UNV Enoxaparin Sodium (Lovenox 40mg Syringe) 40 mg Q24H SQ Last administered on at 21:36; Start 03/26/18 at 21:00 Albuterol Sulfate (Ventolin Neb Soln) 2.5 mg PRN Q2HRS PRN NEB SHORTNESS OF BREATH Last administered on 03/29/18at 04:12; Start 03/26/18 at 17:00; Stop 03/30 at 13:29; Status DC Non-Formulary Medication (Albuterol Sulfate (Proair Hfa Inhaler)) 1 puff PRN Q4HRS PRN INH SHORTNESS OF BREATH; Start 03/26/18 at 16:45; Status UNV Non-Formulary Medication (Budesonide/ Formoterol Fumarate (Symbicort 160-4.5 Mcg Inhaler)) 2 puff BID IH ; Start 03/26/18 at 21:00; Status UNV Theophylline (Theodur) 300 mg BID PO Last administered on 03/30/18at 08:45; Start 03/26/18 at 21:00; Stop 04/02/18 at 08:50; Status DC Budesonide (Pulmicort) 0.5 mg RTBID NEB Last administered on 04/11/18at 07:41; Start 03/26/18 at 20:00 Albuterol Sulfate (Ventolin Neb Soln) 2.5 mg RTQID NEB Last administered on at 12:28; Start 03/26/18 at 20:00; Stop 03/30/18 at 13:24; Status DC Sodium Chloride 1,000 ml @ 1,000 mls/hr 1X ONCE IV Last administered on at 12:23; Start 03/27/18 at 12:15; Stop 03/27/18 at 13:14; Status DC Sodium Chloride 1,000 ml @ 1,000 mls/hr 1X ONCE IV Last administered on at 13:05; Start 03/27/18 at 12:15; Stop 03/27/18 at 13:14; Status DC Sodium Chloride 1,000 ml @ 1,000 mls/hr 1X ONCE IV Last administered on at 14:11; Start 03/27/18 at 12:15; Stop 03/27/18 at 13:14; Status DC Sodium Chloride 136 ml @ 500 mls/hr 1X ONCE IV Last administered on at 12:15; Start 03/27/18 at 12:15; Stop 03/27/18 at 12:31; Status DC Piperacillin Sod/ Tazobactam Sod 3.375 gm/Sodium Chloride 50 ml @ 100 mls/hr Q6HRS IV Last administered on 03/31/18at 12:16; Start 03/27/18 at 16:00; Stop at 13:38; Status DC Morphine Sulfate (Morphine Sulfate) 2 mg PRN Q2HR PRN IV PAIN Last administered on 03/31/18at 10:42; Start 03/27/18 at 16:45 Ondansetron HCl (Zofran) 4 mg PRN Q6HRS PRN IV NAUSEA/VOMITING 1ST CHOICE Last administered on 04/10/18at 23:38; Start 03/27/18 at 16:45 Sodium Chloride 1,000 ml @ 125 mls/hr Q8H IV Last administered on 03/29/18at 10 :14; Start 03/27/18 at 17:45; Stop 03/29/18 at 14:21; Status DC Diazepam (Valium) 5 mg PRN Q2HR PRN PO Agitation/Alcohol withdraw Last administered on 03/29/18at 02:47; Start 03/29/18 at 01:45 Belladonna Alkaloids/Opium (B & O) 1 supp PRN Q12HR PRN [place] BLADDER SPASM Last administered on 03/29/18at 02:58; Start 03/29/18 at 01:45 Dexmedetomidine HCl 200 mcg/ Sodium Chloride 50 ml @ 0 mls/hr CONT PRN IV PER PROTOCOL Last administered on 04/09/18at 07:41; Start 03/29/18 at 08:30; Stop at 07:53; Status DC Sodium Chloride 500 ml @ 500 mls/hr 1X PRN PRN IV SEE COMMENTS; Start at 08:30 Atropine Sulfate (ATROPINE 0.5mg SYRINGE) 0.5 mg PRN Q5MIN PRN IV SEE COMMENTS ; Start 03/29/18 at 08:30 Potassium Chloride (Klor-Con) 40 meq 1X ONCE PO Last administered on at 14:25; Start 03/29/18 at 13:15; Stop 03/29/18 at 13:16; Status DC Potassium Chloride/Sodium Chloride 1,000 ml @ 75 mls/hr [id number] IV Last administered on 04/01/18at 08:47; Start 03/29/18 at 14:15; Stop 04/01/18 at 13:39 ; Status DC Pantoprazole Sodium (Protonix) 40 mg DAILYAC PO ; Start 03/31/18 at 07:30; Stop 03/31/18 at 11:32; Status DC Albuterol Sulfate (Ventolin Neb Soln) 2.5 mg PRN Q4HRS PRN NEB WHEEZING Last administered on 04/10/18at 22:20; Start 03/30/18 at 13:30 Micafungin Sodium 100 mg/Dextrose 100 ml @ 100 mls/hr Q24H IV Last administered on 04/05/18at 15:07; Start 03/30/18 at 15:00; Stop 04/06/18 at 08:05 ; Status DC Linezolid/Dextrose 300 ml @ 300 mls/hr Q12HR IV Last administered on at 21:33; Start 03/30/18 at 14:00; Stop 04/06/18 at 08:05; Status DC Olanzapine (ZyPREXA IM) 10 mg PRN Q8HRS PRN IM ANXIETY / AGITATION; Start 03/30 at 14:00; Stop 04/07/18 at 14:49; Status DC Labetalol HCl (Normodyne Iv Push) 20 mg PRN Q2HR PRN IVP GIVE FOR SBP > 180 DBP >110 Last administered on 04/10/18at 02:51; Start 03/30/18 at 17:15 Acetaminophen (Tylenol Supp) 650 mg PRN Q6HRS PRN [place] MILD PAIN / TEMP Last administered on 03/31/18at 15:02; Start 03/30/18 at 17:15 Iohexol (Omnipaque 300 Mg/ml) 75 ml 1X ONCE IV ; Start 03/31/18 at 09:15; Stop 03/31/18 at 09:16; Status DC Info (CONTRAST GIVEN -- Rx MONITORING) 1 each PRN DAILY PRN MC SEE COMMENTS; Start 03/31/18 at 09:15; Stop 04/02/18 at 09:14; Status DC Iohexol (Omnipaque 300 Mg/ml) 75 ml 1X ONCE IV Last administered on 03/31/18at 10:29; Start 03/31/18 at 10:00; Stop 03/31/18 at 10:04; Status DC Fentanyl Citrate 30 ml @ 0 mls/hr CONT PRN IV PER PROTOCOL Last administered on 04/08/18at 13:59; Start 03/31/18 at 11:00; Stop 04/11/18 at 08:11; Status DC Lorazepam (Ativan) 2 mg STK-MED ONCE .ROUTE ; Start 03/31/18 at 11:02; Stop at 11:03; Status DC Vecuronium [place] (Norcuron Bolus) 10 mg STK-MED ONCE IV ; Start 03/31/18 at 11 :05; Stop 03/31/18 at 11:06; Status DC Propofol 100 ml @ As Directed STK-MED ONCE IV ; Start 03/31/18 at 11:08; Stop 03/31/18 at 11:09; Status DC Vecuronium [place] (Norcuron Bolus) 10 mg STK-MED ONCE IV ; Start 03/31/18 at 11 :08; Stop 03/31/18 at 11:10; Status DC Succinylcholine Chloride (Anectine) 200 mg 1X ONCE IV ; Start 03/31/18 at 11:30 ; Stop 03/31/18 at 11:31; Status DC Propofol 100 ml @ 0 mls/hr CONT PRN IV PER PROTOCOL Last administered on at 15:13; Start 03/31/18 at 11:30; Stop 04/11/18 at 07:52; Status DC Chlorhexidine Gluconate (Peridex) 15 ml BID MM Last administered on 04/08/18at 07:56; Start 03/31/18 at 21:00; Stop 04/10/18 at 12:08; Status DC Pantoprazole Sodium (PROTONIX VIAL for IV PUSH) 40 mg DAILYAC IVP Last administered on 04/11/18at 07:28; Start 04/01/18 at 07:30 Vecuronium [place] (Norcuron Bolus) 10 mg 1X ONCE IV Last administered on 03/31at 11:58; Start 03/31/18 at 12:00; Stop 03/31/18 at 12:01; Status DC Meropenem 500 mg/ Sodium Chloride 50 ml @ 100 mls/hr Q6HRS IV Last administered on 04/11/18at 06:33; Start 03/31/18 at 18:00 Info (Tpn Per Pharmacy) 1 each PRN DAILY PRN MC SEE COMMENTS Last administered on 04/11/18at 10:09; Start 03/31/18 at 14:00 Sodium Chloride 45 meq/Sodium Acetate 45 meq/ Potassium Chloride 50 meq/ Potassium Phosphate 13.6 mmol/Magnesium Sulfate 10 meq/ Calcium Gluconate 10 meq / Multivitamins 10 ml/Chromium/ Copper/Manganese/ Seleni/Zn 1 ml/ Folic Acid 1 mg/ Thiamine HCl 100 mg/Total Donna... 1,512 ml @ 63 mls/hr TPN CONT IV Last administered on 03/31/18at 21:41; Start 03/31/18 at 22:00; Stop 04/01/18 at 21:59; Status DC Octreotide Acetate (SandoSTATIN) 100 mcg Q8HRS SQ Last administered on at 06:14; Start 03/31/18 at 15:30; Stop 04/05/18 at 11:58; Status DC Vecuronium [place] (Norcuron Bolus) 10 mg STK-MED ONCE IV ; Start 03/31/18 at 11 :10; Stop 04/01/18 at 09:10; Status DC Lorazepam (Ativan) 2 mg STK-MED ONCE .ROUTE ; Start 03/31/18 at 11:10; Stop at 09:10; Status DC Sodium Chloride 45 meq/Sodium Acetate 45 meq/ Potassium Chloride 70 meq/ Potassium Phosphate 13.6 mmol/Magnesium Sulfate 10 meq/ Calcium Gluconate 10 meq / Multivitamins 10 ml/Chromium/ Copper/Manganese/ Seleni/Zn 1 ml/ Folic Acid 1 mg/ Thiamine HCl 100 mg/Total Donna... 1,512 ml @ 63 mls/hr TPN CONT IV Last administered on 04/01/18at 22:35; Start 04/01/18 at 22:00; Stop 04/02/18 at 21:59; Status DC Furosemide (Lasix) 20 mg 1X ONCE IVP Last administered on 04/02/18at 09:12; Start 04/02/18 at 09:30; Stop 04/02/18 at 09:31; Status DC Sodium Chloride 45 meq/Sodium Acetate 45 meq/ Potassium Chloride 70 meq/ Potassium Phosphate 13.6 mmol/Magnesium Sulfate 10 meq/ Calcium Gluconate 10 meq / Multivitamins 10 ml/Chromium/ Copper/Manganese/ Seleni/Zn 1 ml/ Folic Acid 1 mg/ Thiamine HCl 100 mg/Total Donna... 1,512 ml @ 63 mls/hr TPN CONT IV Last administered on 04/02/18at 22:18; Start 04/02/18 at 22:00; Stop 04/03/18 at 21:59; Status DC Multi-Ingred Cream/Lotion/Oil/ Oint (Artificial Tears Eye Ointment) 1 rosemary Q12HR OU Last administered on 04/08/18at 07:56; Start 04/02/18 at 14:00; Stop at 08:12; Status DC Sodium Chloride 45 meq/Sodium Acetate 45 meq/ Potassium Chloride 70 meq/ Potassium Phosphate 13.6 mmol/Magnesium Sulfate 10 meq/ Calcium Gluconate 10 meq / Multivitamins 10 ml/Chromium/ Copper/Manganese/ Seleni/Zn 1 ml/ Folic Acid 1 mg/ Thiamine HCl 100 mg/Total Donna... 1,512 ml @ 63 mls/hr TPN CONT IV Last administered on 04/03/18at 21:11; Start 04/03/18 at 22:00; Stop 04/04/18 at 21:59; Status DC Sodium Chloride 60 meq/Sodium Acetate 50 meq/ Potassium Chloride 70 meq/ Potassium Phosphate 13.6 mmol/Magnesium Sulfate 10 meq/ Calcium Gluconate 10 meq / Multivitamins 10 ml/Chromium/ Copper/Manganese/ Seleni/Zn 1 ml/ Folic Acid 1 mg/ Thiamine HCl 100 mg/Total Donna... 1,512 ml @ 63 mls/hr TPN CONT IV Last administered on 04/04/18at 21:40; Start 04/04/18 at 22:00; Stop 04/05/18 at 21:59; Status DC Sodium Chloride 50 meq/Sodium Acetate 50 meq/ Potassium Chloride 70 meq/ Potassium Phosphate 13.6 mmol/Magnesium Sulfate 10 meq/ Calcium Gluconate 10 meq / Multivitamins 10 ml/Chromium/ Copper/Manganese/ Seleni/Zn 1 ml/ Folic Acid 1 mg/ Thiamine HCl 100 mg/Total Donna... 1,512 ml @ 63 mls/hr TPN CONT IV Last administered on 04/05/18at 21:34; Start 04/05/18 at 22:00; Stop 04/06/18 at 21:59; Status DC Sodium Chloride 50 meq/Sodium Acetate 50 meq/ Potassium Chloride 70 meq/ Potassium Phosphate 13.6 mmol/Magnesium Sulfate 10 meq/ Calcium Gluconate 10 meq / Multivitamins 10 ml/Chromium/ Copper/Manganese/ Seleni/Zn 1 ml/ Folic Acid 1 mg/ Thiamine HCl 100 mg/Total Donna... 1,512 ml @ 63 mls/hr TPN CONT IV Last administered on 04/06/18at 21:24; Start 04/06/18 at 22:00; Stop 04/07/18 at 21:59; Status DC Iohexol (Omnipaque 300 Mg/ml) 75 ml 1X ONCE IV Last administered on 04/06/18at 11:45; Start 04/06/18 at 11:45; Stop 04/06/18 at 11:46; Status DC Info (CONTRAST GIVEN -- Rx MONITORING) 1 each PRN DAILY PRN MC SEE COMMENTS; Start 04/06/18 at 11:45; Stop 04/08/18 at 11:44; Status DC Sodium Chloride 50 meq/Sodium Acetate 50 meq/ Potassium Chloride 65 meq/ Potassium Phosphate 13.6 mmol/Magnesium Sulfate 10 meq/ Calcium Gluconate 10 meq / Multivitamins 10 ml/Chromium/ Copper/Manganese/ Seleni/Zn 1 ml/ Folic Acid 1 mg/ Thiamine HCl 100 mg/Total Donna... 1,512 ml @ 63 mls/hr TPN CONT IV Last administered on 04/07/18at 21:55; Start 04/07/18 at 22:00; Stop 04/08/18 at 21:59; Status DC Olanzapine (ZyPREXA IM) 10 mg Q8HRS PRN IM ANXIETY / AGITATION; Start 04/07/18 at 15:00; Stop 04/07/18 at 15:00; Status DC Olanzapine (ZyPREXA IM) 10 mg Q8HRS PRN IM AGITATION; Start 04/07/18 at 15:00; Stop 04/07/18 at 15:23; Status DC Olanzapine (ZyPREXA IM) 10 mg Q8HRS IM Last administered on 04/08/18at 05:50; Start 04/07/18 at 15:00; Stop 04/08/18 at 12:44; Status DC Sodium Chloride 50 meq/Sodium Acetate 50 meq/ Potassium Chloride 65 meq/ Potassium Phosphate 13.6 mmol/Magnesium Sulfate 10 meq/ Multivitamins 10 ml/ Chromium/ Copper/Manganese/ Seleni/Zn 1 ml/ Folic Acid 1 mg/ Thiamine HCl 100 mg /Total Parenteral Nutrition/Amino Acids/Dextrose 1,512 ml @ 63 mls/hr TPN CONT IV Last administered on 04/08/18at 21:56; Start 04/08/18 at 22:00; Stop at 21:59; Status DC Haloperidol Lactate (Haldol Inj) 10 mg Q8HRS IV Last administered on 04/11/18at 06:37; Start 04/08/18 at 14:00 Diphenhydramine HCl (Benadryl) 50 mg Q8HRS IVP Last administered on 04/11/18at 07:28; Start 04/08/18 at 14:00 Sodium Chloride 50 meq/Sodium Acetate 50 meq/ Potassium Chloride 65 meq/ Potassium Phosphate 13.6 mmol/Magnesium Sulfate 10 meq/ Multivitamins 10 ml/ Chromium/ Copper/Manganese/ Seleni/Zn 1 ml/ Folic Acid 1 mg/ Thiamine HCl 100 mg /Total Parenteral Nutrition/Amino Acids/Dextro... 1,492 ml @ 62.167 mls/ hr TPN CONT IV Last administered on 04/09/18at 21:46; Start 04/09/18 at 22:00; Stop 04/10/18 at 21:59; Status DC Scopolamine (Transderm-Scop) 1 patch Q3DAYS TD Last administered on 04/10/18at 01:00; Start 04/10/18 at 01:00 Prochlorperazine Edisylate (Compazine) 10 mg PRN Q6HRS PRN IV NAUSEA/VOMITING 2ND CHOICE Last administered on 04/10/18at 05:45; Start 04/10/18 at 05:30 Sodium Chloride 50 meq/Sodium Acetate 50 meq/ Potassium Chloride 65 meq/ Potassium Phosphate 13.6 mmol/Magnesium Sulfate 10 meq/ Multivitamins 10 ml/ Chromium/ Copper/Manganese/ Seleni/Zn 1 ml/ Folic Acid 1 mg/ Thiamine HCl 100 mg /Total Parenteral Nutrition/Amino Acids/Dextro... 1,492 ml @ 62.167 mls/ hr TPN CONT IV Last administered on 04/10/18at 21:37; Start 04/10/18 at 22:00; Stop 04/11/18 at 21:59 Sodium Chloride 50 meq/Sodium Acetate 50 meq/ Potassium Chloride 65 meq/ Potassium Phosphate 13.6 mmol/Magnesium Sulfate 10 meq/ Multivitamins 10 ml/ Chromium/ Copper/Manganese/ Seleni/Zn 1 ml/ Folic Acid 1 mg/ Thiamine HCl 100 mg /Total Parenteral Nutrition/Amino Acids/Dextro... 1,492 ml @ 62.167 mls/ hr TPN CONT IV ; Start 04/11/18 at 22:00; Stop 04/12/18 at 21:59 Active Scripts Active Diazepam 5 Mg Tablet 5 Mg PO DAILY Reported Proair Hfa Inhaler (Albuterol Sulfate) 8.5 Gm Hfa.aer.ad 1 Puff INH PRN Q4HRS PRN Duoneb 0.5-3(2.5) Mg/3 Ml (Albuterol/Ipratropium) 3 Ml Ampul.neb 3 Ml NEB Q2HR PRN Symbicort 160-4.5 Mcg Inhaler (Budesonide/Formoterol Fumarate) 10.2 Gm Hfa.aer.ad 2 Puff IH BID Prilosec Otc (Omeprazole Magnesium) 20 Mg Tablet.dr 1 Tab PO DAILY Theophylline (Theophylline Anhydrous) 400 Mg Tablet.er 300 Mg PO BID Vitals/I & O Vital Sign - Last 24 Hours 04/10/18 04/10/18 04/10/18 04/10/18 11:00 15:00 19:00 19:39 Temp 97.5 97.4 97.5 97.4 Pulse 104 85 113 Resp 22 18 20 B/P (MAP) 172/91 (118) 165/90 (115) 145/102 (116) Pulse Ox 92 94 94 96 O2 Delivery Room Air Room Air Room Air Room Air 04/10/18 04/10/18 04/10/18 04/10/18 20:00 22:20 23:04 23:33 Temp 98.5 98.5 Pulse 103 100 Resp 20 B/P (MAP) 161/109 (126) 132/82 (99) Pulse Ox 91 O2 Delivery Room Air Room Air Room Air 04/11/18 04/11/18 04/11/18 04/11/18 03:19 07:00 07:43 08:15 Temp 97.0 96.6 97.0 96.6 Pulse 82 82 Resp 20 18 B/P (MAP) 157/96 (116) 144/88 (106) Pulse Ox 92 94 93 O2 Delivery Room Air Room Air Room Air Room Air O2 Flow Rate 2.0 Intake and Output 04/10/18 04/10/18 04/11/18 15:00 23:00 07:00 Intake Total 50 ml 1125 ml Output Total 360 ml 0 ml 550 ml Balance -310 ml 1125 ml -550 ml KJ SINGH MD Apr 11, 2018 10:44
[2018-04-11 11:28] VITALS: BP 137/87
--- NOTE | 2018-04-11 12:12 | PDOC ---
G I PROGRESS NOTE Reason for Follow-up Alcoholic pancreatitis/n/v Subjective Feeling better/wants to eat Physical Exam Lungs decreased BS CV S1 S2 Abd +BS, soft, +epigastric tenderness Review of Relevant I have reviewed the following items wali (where applicable) has been applied. Labs Laboratory Tests Test 04/09/18 12:17 04/09/18 18:31 04/10/18 05:51 04/10/18 06:00 Glucose (Fingerstick) 138 mg/dL (70-99) 145 mg/dL (70-99) 173 mg/dL (70-99) White Blood Count 10.3 x10^3/uL (4.0-11.0) Red Blood Count 4.19 x10^6/uL (4.30-5.70) Hemoglobin 10.7 g/dL (13.0-17.5) Hematocrit 32.1 % (39.0-53.0) Mean Corpuscular Volume 77 fL (79-100) Mean Corpuscular Hemoglobin 25 pg (25-35) Mean Corpuscular Hemoglobin Concent 33 g/dL (31-37) Red Cell Distribution Width 17.7 % (11.5-14.5) Platelet Count 790 x10^3/uL (140-400) Neutrophils (%) (Auto) 73 % (31-73) Lymphocytes (%) (Auto) 18 % (24-48) Monocytes (%) (Auto) 7 % (0-9) Eosinophils (%) (Auto) 1 % (0-3) Basophils (%) (Auto) 1 % (0-3) Neutrophils # (Auto) 7.5 x10^3uL (1.8-7.7) Lymphocytes # (Auto) 1.8 x10^3/uL (1.0-4.8) Monocytes # (Auto) 0.7 x10^3/uL (0.0-1.1) Eosinophils # (Auto) 0.1 x10^3/uL (0.0-0.7) Basophils # (Auto) 0.1 x10^3/uL (0.0-0.2) Sodium Level 143 mmol/L (136-145) Potassium Level 4.0 mmol/L (3.5-5.1) Chloride Level 104 mmol/L (98-107) Carbon Dioxide Level 27 mmol/L (21-32) Anion Gap 12 (6-14) Blood Urea Nitrogen 18 mg/dL (8-26) Creatinine 0.8 mg/dL (0.7-1.3) Estimated GFR (Cockcroft-Gault) 106.5 Glucose Level 175 mg/dL (70-99) Calcium Level 9.8 mg/dL (8.5-10.1) Test 04/10/18 13:33 04/10/18 17:43 04/10/18 17:56 04/10/18 23:17 Sodium Level 143 mmol/L (136-145) Potassium Level 4.3 mmol/L (3.5-5.1) Chloride Level 104 mmol/L (98-107) Carbon Dioxide Level 28 mmol/L (21-32) Anion Gap 11 (6-14) Blood Urea Nitrogen 19 mg/dL (8-26) Creatinine 0.8 mg/dL (0.7-1.3) Estimated GFR (Cockcroft-Gault) 106.5 BUN/Creatinine Ratio 24 (6-20) Glucose Level 140 mg/dL (70-99) Calcium Level 10.0 mg/dL (8.5-10.1) Total Bilirubin 0.5 mg/dL (0.2-1.0) Aspartate Amino Transf (AST/SGOT) 29 U/L (15-37) Alanine Aminotransferase (ALT/SGPT) 44 U/L (16-63) Alkaline Phosphatase 86 U/L (46-116) Total Protein 9.0 g/dL (6.4-8.2) Albumin 2.9 g/dL (3.4-5.0) Albumin/Globulin Ratio 0.5 (1.0-1.7) Glucose (Fingerstick) 113 mg/dL (70-99) 125 mg/dL (70-99) 139 mg/dL (70-99) Test 04/11/18 06:00 04/11/18 06:54 04/11/18 07:30 04/11/18 10:53 White Blood Count 10.2 x10^3/uL (4.0-11.0) Red Blood Count 3.97 x10^6/uL (4.30-5.70) Hemoglobin 9.9 g/dL (13.0-17.5) Hematocrit 30.9 % (39.0-53.0) Mean Corpuscular Volume 78 fL (79-100) Mean Corpuscular Hemoglobin 25 pg (25-35) Mean Corpuscular Hemoglobin Concent 32 g/dL (31-37) Red Cell Distribution Width 17.6 % (11.5-14.5) Platelet Count 786 x10^3/uL (140-400) Neutrophils (%) (Auto) 66 % (31-73) Lymphocytes (%) (Auto) 20 % (24-48) Monocytes (%) (Auto) 8 % (0-9) Eosinophils (%) (Auto) 3 % (0-3) Basophils (%) (Auto) 2 % (0-3) Neutrophils # (Auto) 6.8 x10^3uL (1.8-7.7) Lymphocytes # (Auto) 2.1 x10^3/uL (1.0-4.8) Monocytes # (Auto) 0.8 x10^3/uL (0.0-1.1) Eosinophils # (Auto) 0.3 x10^3/uL (0.0-0.7) Basophils # (Auto) 0.2 x10^3/uL (0.0-0.2) Glucose (Fingerstick) 132 mg/dL (70-99) 150 mg/dL (70-99) 140 mg/dL (70-99) Laboratory Tests Test 04/10/18 13:33 04/10/18 17:43 04/10/18 17:56 04/10/18 23:17 Sodium Level 143 mmol/L (136-145) Potassium Level 4.3 mmol/L (3.5-5.1) Chloride Level 104 mmol/L (98-107) Carbon Dioxide Level 28 mmol/L (21-32) Anion Gap 11 (6-14) Blood Urea Nitrogen 19 mg/dL (8-26) Creatinine 0.8 mg/dL (0.7-1.3) Estimated GFR (Cockcroft-Gault) 106.5 BUN/Creatinine Ratio 24 (6-20) Glucose Level 140 mg/dL (70-99) Calcium Level 10.0 mg/dL (8.5-10.1) Total Bilirubin 0.5 mg/dL (0.2-1.0) Aspartate Amino Transf (AST/SGOT) 29 U/L (15-37) Alanine Aminotransferase (ALT/SGPT) 44 U/L (16-63) Alkaline Phosphatase 86 U/L (46-116) Total Protein 9.0 g/dL (6.4-8.2) Albumin 2.9 g/dL (3.4-5.0) Albumin/Globulin Ratio 0.5 (1.0-1.7) Glucose (Fingerstick) 113 mg/dL (70-99) 125 mg/dL (70-99) 139 mg/dL (70-99) Test 04/11/18 06:00 04/11/18 06:54 04/11/18 07:30 04/11/18 10:53 White Blood Count 10.2 x10^3/uL (4.0-11.0) Red Blood Count 3.97 x10^6/uL (4.30-5.70) Hemoglobin 9.9 g/dL (13.0-17.5) Hematocrit 30.9 % (39.0-53.0) Mean Corpuscular Volume 78 fL (79-100) Mean Corpuscular Hemoglobin 25 pg (25-35) Mean Corpuscular Hemoglobin Concent 32 g/dL (31-37) Red Cell Distribution Width 17.6 % (11.5-14.5) Platelet Count 786 x10^3/uL (140-400) Neutrophils (%) (Auto) 66 % (31-73) Lymphocytes (%) (Auto) 20 % (24-48) Monocytes (%) (Auto) 8 % (0-9) Eosinophils (%) (Auto) 3 % (0-3) Basophils (%) (Auto) 2 % (0-3) Neutrophils # (Auto) 6.8 x10^3uL (1.8-7.7) Lymphocytes # (Auto) 2.1 x10^3/uL (1.0-4.8) Monocytes # (Auto) 0.8 x10^3/uL (0.0-1.1) Eosinophils # (Auto) 0.3 x10^3/uL (0.0-0.7) Basophils # (Auto) 0.2 x10^3/uL (0.0-0.2) Glucose (Fingerstick) 132 mg/dL (70-99) 150 mg/dL (70-99) 140 mg/dL (70-99) Microbiology 03/31/18 Blood Culture - Final, Complete NO GROWTH AFTER 5 DAYS Medications Current Medications Multivitamins 10 ml/Thiamine HCl 100 mg/Folic Acid 1 mg/Sodium Chloride 1,011.2 ml @ 1,000.088 mls/hr 1X ONCE IV Last administered on 03/26/18at 15:07; Start 03/26/18 at 14:00; Stop 03/26/18 at 15:00; Status DC Ondansetron HCl (Zofran) 4 mg 1X ONCE IV Last administered on 03/26/18at 14:13 ; Start 03/26/18 at 14:00; Stop 03/26/18 at 14:10; Status DC Pantoprazole Sodium (PROTONIX VIAL for IV PUSH) 40 mg 1X ONCE IVP Last administered on 03/26/18at 14:13; Start 03/26/18 at 14:00; Stop 03/26/18 at 14:10 ; Status DC Pantoprazole Sodium (PROTONIX VIAL for IV PUSH) 40 mg STK-MED ONCE IVP ; Start 03/26/18 at 14:10; Stop 03/26/18 at 14:11; Status DC Ondansetron HCl (Zofran) 4 mg STK-MED ONCE .ROUTE ; Start 03/26/18 at 14:10; Stop 03/26/18 at 14:11; Status DC Iohexol (Omnipaque 300 Mg/ml) 75 ml 1X ONCE IV Last administered on 03/26/18at 14:38; Start 03/26/18 at 14:45; Stop 03/26/18 at 14:46; Status DC Iohexol (Omnipaque 300 Mg/ml) 100 ml STK-MED ONCE .ROUTE ; Start 03/26/18 at 14: 38; Stop 03/26/18 at 14:39; Status DC Info (CONTRAST GIVEN -- Rx MONITORING) 1 each PRN DAILY PRN MC SEE COMMENTS; Start 03/26/18 at 14:45; Stop 03/28/18 at 14:44; Status DC Ondansetron HCl (Zofran) 4 mg 1X ONCE IV Last administered on 03/26/18at 15:08 ; Start 03/26/18 at 15:00; Stop 03/26/18 at 15:01; Status DC Morphine Sulfate (Morphine Sulfate) 5 mg 1X ONCE IV Last administered on at 15:09; Start 03/26/18 at 15:00; Stop 03/26/18 at 15:01; Status DC Ondansetron HCl (Zofran) 4 mg PRN Q8HRS PRN IV NAUSEA/VOMITING Last administered on 03/27/18at 12:22; Start 03/26/18 at 15:15; Stop 03/27/18 at 15:14 ; Status DC Morphine Sulfate (Morphine Sulfate) 4 mg PRN Q2HR PRN IV PAIN Last administered on 03/27/18at 15:12; Start 03/26/18 at 15:15; Stop 03/27/18 at 15:14 ; Status DC Multivitamins 10 ml/Thiamine HCl 100 mg/Folic Acid 1 mg/Sodium Chloride 1,011.2 ml @ 100 mls/ hr DAILY IV Last administered on 03/30/18at 07:52; Start at 16:00; Stop 03/30/18 at 19:07; Status DC Lorazepam (Ativan) 2 mg PRN Q1HR PRN IV For CIWA 8-14 Last administered on 03/26at 15:59; Start 03/26/18 at 15:15; Stop 03/26/18 at 16:43; Status DC Sodium Chloride 1,000 ml @ 125 mls/hr 1X ONCE IV Last administered on at 02:10; Start 03/26/18 at 15:15; Stop 03/26/18 at 23:14; Status DC Pantoprazole Sodium (PROTONIX VIAL for IV PUSH) 40 mg DAILYAC IVP Last administered on 03/30/18at 07:52; Start 03/27/18 at 07:30; Stop 03/30/18 at 10:52 ; Status DC Multivitamins 10 ml/Thiamine HCl 100 mg/Folic Acid 1 mg/Sodium Chloride 1,011.2 ml @ 100 mls/ hr DAILY IV ; Start 03/27/18 at 09:00; Stop 03/31/18 at 19:07; Status UNV Multivitamins (Thera M Plus) 1 tab DAILY PO ; Start 03/31/18 at 09:00; Stop at 14:18; Status DC Folic Acid (Folic Acid) 1 mg DAILY PO ; Start 03/31/18 at 09:00; Stop 03/31/18 at 14:18; Status DC Thiamine HCl 100 mg/Dextrose 51 ml @ 100 mls/hr DAILY IV ; Start 03/27/18 at 09 :00; Stop 03/31/18 at 09:31; Status UNV Lorazepam (Ativan) 2 mg Q6H PO Last administered on 03/26/18at 22:19; Start at 17:00; Stop 03/27/18 at 01:47; Status DC Lorazepam (Ativan) 4 mg PRN Q1HR PRN PO For CIWA 8-14; Start 03/26/18 at 16:45 Lorazepam (Ativan) 2 mg PRN Q1HR PRN IV For CIWA 8-14 Last administered on 04/10at 07:51; Start 03/26/18 at 16:45 Lorazepam (Ativan) 4 mg PRN Q1HR PRN IV For CIWA 15 or greater Last administered on 04/09/18at 14:51; Start 03/26/18 at 16:45 Haloperidol Lactate (Haldol Inj) 5 mg PRN Q4HRS PRN IVP Hallucinatns,Confusn, Delirium Last administered on 04/06/18at 11:21; Start 03/26/18 at 16:45 Diphenhydramine HCl (Benadryl) 25 mg PRN Q15MIN PRN IVP EPS symptoms 2'Haldol admin Last administered on 03/29/18at 08:25; Start 03/26/18 at 16:45 Clonidine HCl (Catapres) 0.1 mg PRN Q1HR PRN PO SBP > 180 or DBP > 100, MRX3 Last administered on 03/27/18at 05:28; Start 03/26/18 at 16:45 Lorazepam (Ativan) 2 mg PRN Q15MIN PRN IV ; Start 03/26/18 at 16:45; Status UNV Lorazepam (Ativan) 4 mg PRN Q15MIN PRN IV ; Start 03/26/18 at 16:45; Status UNV Pantoprazole Sodium (PROTONIX VIAL for IV PUSH) 40 mg DAILYAC IVP ; Start at 07:30; Status UNV Enoxaparin Sodium (Lovenox 40mg Syringe) 40 mg Q24H SQ Last administered on at 21:36; Start 03/26/18 at 21:00 Albuterol Sulfate (Ventolin Neb Soln) 2.5 mg PRN Q2HRS PRN NEB SHORTNESS OF BREATH Last administered on 03/29/18at 04:12; Start 03/26/18 at 17:00; Stop 03/30 at 13:29; Status DC Non-Formulary Medication (Albuterol Sulfate (Proair Hfa Inhaler)) 1 puff PRN Q4HRS PRN INH SHORTNESS OF BREATH; Start 03/26/18 at 16:45; Status UNV Non-Formulary Medication (Budesonide/ Formoterol Fumarate (Symbicort 160-4.5 Mcg Inhaler)) 2 puff BID IH ; Start 03/26/18 at 21:00; Status UNV Theophylline (Theodur) 300 mg BID PO Last administered on 03/30/18at 08:45; Start 03/26/18 at 21:00; Stop 04/02/18 at 08:50; Status DC Budesonide (Pulmicort) 0.5 mg RTBID NEB Last administered on 04/11/18at 07:41; Start 03/26/18 at 20:00 Albuterol Sulfate (Ventolin Neb Soln) 2.5 mg RTQID NEB Last administered on at 12:28; Start 03/26/18 at 20:00; Stop 03/30/18 at 13:24; Status DC Sodium Chloride 1,000 ml @ 1,000 mls/hr 1X ONCE IV Last administered on at 12:23; Start 03/27/18 at 12:15; Stop 03/27/18 at 13:14; Status DC Sodium Chloride 1,000 ml @ 1,000 mls/hr 1X ONCE IV Last administered on at 13:05; Start 03/27/18 at 12:15; Stop 03/27/18 at 13:14; Status DC Sodium Chloride 1,000 ml @ 1,000 mls/hr 1X ONCE IV Last administered on at 14:11; Start 03/27/18 at 12:15; Stop 03/27/18 at 13:14; Status DC Sodium Chloride 136 ml @ 500 mls/hr 1X ONCE IV Last administered on at 12:15; Start 03/27/18 at 12:15; Stop 03/27/18 at 12:31; Status DC Piperacillin Sod/ Tazobactam Sod 3.375 gm/Sodium Chloride 50 ml @ 100 mls/hr Q6HRS IV Last administered on 03/31/18at 12:16; Start 03/27/18 at 16:00; Stop at 13:38; Status DC Morphine Sulfate (Morphine Sulfate) 2 mg PRN Q2HR PRN IV PAIN Last administered on 03/31/18at 10:42; Start 03/27/18 at 16:45 Ondansetron HCl (Zofran) 4 mg PRN Q6HRS PRN IV NAUSEA/VOMITING 1ST CHOICE Last administered on 04/10/18at 23:38; Start 03/27/18 at 16:45 Sodium Chloride 1,000 ml @ 125 mls/hr Q8H IV Last administered on 03/29/18at 10 :14; Start 03/27/18 at 17:45; Stop 03/29/18 at 14:21; Status DC Diazepam (Valium) 5 mg PRN Q2HR PRN PO Agitation/Alcohol withdraw Last administered on 03/29/18at 02:47; Start 03/29/18 at 01:45 Belladonna Alkaloids/Opium (B & O) 1 supp PRN Q12HR PRN [place] BLADDER SPASM Last administered on 03/29/18at 02:58; Start 03/29/18 at 01:45 Dexmedetomidine HCl 200 mcg/ Sodium Chloride 50 ml @ 0 mls/hr CONT PRN IV PER PROTOCOL Last administered on 04/09/18at 07:41; Start 03/29/18 at 08:30; Stop at 07:53; Status DC Sodium Chloride 500 ml @ 500 mls/hr 1X PRN PRN IV SEE COMMENTS; Start at 08:30 Atropine Sulfate (ATROPINE 0.5mg SYRINGE) 0.5 mg PRN Q5MIN PRN IV SEE COMMENTS ; Start 03/29/18 at 08:30 Potassium Chloride (Klor-Con) 40 meq 1X ONCE PO Last administered on at 14:25; Start 03/29/18 at 13:15; Stop 03/29/18 at 13:16; Status DC Potassium Chloride/Sodium Chloride 1,000 ml @ 75 mls/hr [id number] IV Last administered on 04/01/18at 08:47; Start 03/29/18 at 14:15; Stop 04/01/18 at 13:39 ; Status DC Pantoprazole Sodium (Protonix) 40 mg DAILYAC PO ; Start 03/31/18 at 07:30; Stop 03/31/18 at 11:32; Status DC Albuterol Sulfate (Ventolin Neb Soln) 2.5 mg PRN Q4HRS PRN NEB WHEEZING Last administered on 04/10/18at 22:20; Start 03/30/18 at 13:30 Micafungin Sodium 100 mg/Dextrose 100 ml @ 100 mls/hr Q24H IV Last administered on 04/05/18at 15:07; Start 03/30/18 at 15:00; Stop 04/06/18 at 08:05 ; Status DC Linezolid/Dextrose 300 ml @ 300 mls/hr Q12HR IV Last administered on at 21:33; Start 03/30/18 at 14:00; Stop 04/06/18 at 08:05; Status DC Olanzapine (ZyPREXA IM) 10 mg PRN Q8HRS PRN IM ANXIETY / AGITATION; Start 03/30 at 14:00; Stop 04/07/18 at 14:49; Status DC Labetalol HCl (Normodyne Iv Push) 20 mg PRN Q2HR PRN IVP GIVE FOR SBP > 180 DBP >110 Last administered on 04/10/18at 02:51; Start 03/30/18 at 17:15 Acetaminophen (Tylenol Supp) 650 mg PRN Q6HRS PRN [place] MILD PAIN / TEMP Last administered on 03/31/18at 15:02; Start 03/30/18 at 17:15 Iohexol (Omnipaque 300 Mg/ml) 75 ml 1X ONCE IV ; Start 03/31/18 at 09:15; Stop 03/31/18 at 09:16; Status DC Info (CONTRAST GIVEN -- Rx MONITORING) 1 each PRN DAILY PRN MC SEE COMMENTS; Start 03/31/18 at 09:15; Stop 04/02/18 at 09:14; Status DC Iohexol (Omnipaque 300 Mg/ml) 75 ml 1X ONCE IV Last administered on 03/31/18at 10:29; Start 03/31/18 at 10:00; Stop 03/31/18 at 10:04; Status DC Fentanyl Citrate 30 ml @ 0 mls/hr CONT PRN IV PER PROTOCOL Last administered on 04/08/18at 13:59; Start 03/31/18 at 11:00; Stop 04/11/18 at 08:11; Status DC Lorazepam (Ativan) 2 mg STK-MED ONCE .ROUTE ; Start 03/31/18 at 11:02; Stop at 11:03; Status DC Vecuronium Grubbs (Norcuron Bolus) 10 mg STK-MED ONCE IV ; Start 03/31/18 at 11 :05; Stop 03/31/18 at 11:06; Status DC Propofol 100 ml @ As Directed STK-MED ONCE IV ; Start 03/31/18 at 11:08; Stop 03/31/18 at 11:09; Status DC Vecuronium Grubbs (Norcuron Bolus) 10 mg STK-MED ONCE IV ; Start 03/31/18 at 11 :08; Stop 03/31/18 at 11:10; Status DC Succinylcholine Chloride (Anectine) 200 mg 1X ONCE IV ; Start 03/31/18 at 11:30 ; Stop 03/31/18 at 11:31; Status DC Propofol 100 ml @ 0 mls/hr CONT PRN IV PER PROTOCOL Last administered on at 15:13; Start 03/31/18 at 11:30; Stop 04/11/18 at 07:52; Status DC Chlorhexidine Gluconate (Peridex) 15 ml BID MM Last administered on 04/08/18at 07:56; Start 03/31/18 at 21:00; Stop 04/10/18 at 12:08; Status DC Pantoprazole Sodium (PROTONIX VIAL for IV PUSH) 40 mg DAILYAC IVP Last administered on 04/11/18at 07:28; Start 04/01/18 at 07:30 Vecuronium Grubbs (Norcuron Bolus) 10 mg 1X ONCE IV Last administered on 03/31at 11:58; Start 03/31/18 at 12:00; Stop 03/31/18 at 12:01; Status DC Meropenem 500 mg/ Sodium Chloride 50 ml @ 100 mls/hr Q6HRS IV Last administered on 04/11/18at 06:33; Start 03/31/18 at 18:00 Info (Tpn Per Pharmacy) 1 each PRN DAILY PRN MC SEE COMMENTS Last administered on 04/11/18at 10:09; Start 03/31/18 at 14:00 Sodium Chloride 45 meq/Sodium Acetate 45 meq/ Potassium Chloride 50 meq/ Potassium Phosphate 13.6 mmol/Magnesium Sulfate 10 meq/ Calcium Gluconate 10 meq / Multivitamins 10 ml/Chromium/ Copper/Manganese/ Seleni/Zn 1 ml/ Folic Acid 1 mg/ Thiamine HCl 100 mg/Total Donna... 1,512 ml @ 63 mls/hr TPN CONT IV Last administered on 03/31/18at 21:41; Start 03/31/18 at 22:00; Stop 04/01/18 at 21:59; Status DC Octreotide Acetate (SandoSTATIN) 100 mcg Q8HRS SQ Last administered on at 06:14; Start 03/31/18 at 15:30; Stop 04/05/18 at 11:58; Status DC Vecuronium Grubbs (Norcuron Bolus) 10 mg STK-MED ONCE IV ; Start 03/31/18 at 11 :10; Stop 04/01/18 at 09:10; Status DC Lorazepam (Ativan) 2 mg STK-MED ONCE .ROUTE ; Start 03/31/18 at 11:10; Stop at 09:10; Status DC Sodium Chloride 45 meq/Sodium Acetate 45 meq/ Potassium Chloride 70 meq/ Potassium Phosphate 13.6 mmol/Magnesium Sulfate 10 meq/ Calcium Gluconate 10 meq / Multivitamins 10 ml/Chromium/ Copper/Manganese/ Seleni/Zn 1 ml/ Folic Acid 1 mg/ Thiamine HCl 100 mg/Total Donna... 1,512 ml @ 63 mls/hr TPN CONT IV Last administered on 04/01/18at 22:35; Start 04/01/18 at 22:00; Stop 04/02/18 at 21:59; Status DC Furosemide (Lasix) 20 mg 1X ONCE IVP Last administered on 04/02/18at 09:12; Start 04/02/18 at 09:30; Stop 04/02/18 at 09:31; Status DC Sodium Chloride 45 meq/Sodium Acetate 45 meq/ Potassium Chloride 70 meq/ Potassium Phosphate 13.6 mmol/Magnesium Sulfate 10 meq/ Calcium Gluconate 10 meq / Multivitamins 10 ml/Chromium/ Copper/Manganese/ Seleni/Zn 1 ml/ Folic Acid 1 mg/ Thiamine HCl 100 mg/Total Donna... 1,512 ml @ 63 mls/hr TPN CONT IV Last administered on 04/02/18at 22:18; Start 04/02/18 at 22:00; Stop 04/03/18 at 21:59; Status DC Multi-Ingred Cream/Lotion/Oil/ Oint (Artificial Tears Eye Ointment) 1 rosemary Q12HR OU Last administered on 04/08/18at 07:56; Start 04/02/18 at 14:00; Stop at 08:12; Status DC Sodium Chloride 45 meq/Sodium Acetate 45 meq/ Potassium Chloride 70 meq/ Potassium Phosphate 13.6 mmol/Magnesium Sulfate 10 meq/ Calcium Gluconate 10 meq / Multivitamins 10 ml/Chromium/ Copper/Manganese/ Seleni/Zn 1 ml/ Folic Acid 1 mg/ Thiamine HCl 100 mg/Total Donna... 1,512 ml @ 63 mls/hr TPN CONT IV Last administered on 04/03/18at 21:11; Start 04/03/18 at 22:00; Stop 04/04/18 at 21:59; Status DC Sodium Chloride 60 meq/Sodium Acetate 50 meq/ Potassium Chloride 70 meq/ Potassium Phosphate 13.6 mmol/Magnesium Sulfate 10 meq/ Calcium Gluconate 10 meq / Multivitamins 10 ml/Chromium/ Copper/Manganese/ Seleni/Zn 1 ml/ Folic Acid 1 mg/ Thiamine HCl 100 mg/Total Donna... 1,512 ml @ 63 mls/hr TPN CONT IV Last administered on 04/04/18at 21:40; Start 04/04/18 at 22:00; Stop 04/05/18 at 21:59; Status DC Sodium Chloride 50 meq/Sodium Acetate 50 meq/ Potassium Chloride 70 meq/ Potassium Phosphate 13.6 mmol/Magnesium Sulfate 10 meq/ Calcium Gluconate 10 meq / Multivitamins 10 ml/Chromium/ Copper/Manganese/ Seleni/Zn 1 ml/ Folic Acid 1 mg/ Thiamine HCl 100 mg/Total Donna... 1,512 ml @ 63 mls/hr TPN CONT IV Last administered on 04/05/18at 21:34; Start 04/05/18 at 22:00; Stop 04/06/18 at 21:59; Status DC Sodium Chloride 50 meq/Sodium Acetate 50 meq/ Potassium Chloride 70 meq/ Potassium Phosphate 13.6 mmol/Magnesium Sulfate 10 meq/ Calcium Gluconate 10 meq / Multivitamins 10 ml/Chromium/ Copper/Manganese/ Seleni/Zn 1 ml/ Folic Acid 1 mg/ Thiamine HCl 100 mg/Total Donna... 1,512 ml @ 63 mls/hr TPN CONT IV Last administered on 04/06/18at 21:24; Start 04/06/18 at 22:00; Stop 04/07/18 at 21:59; Status DC Iohexol (Omnipaque 300 Mg/ml) 75 ml 1X ONCE IV Last administered on 04/06/18at 11:45; Start 04/06/18 at 11:45; Stop 04/06/18 at 11:46; Status DC Info (CONTRAST GIVEN -- Rx MONITORING) 1 each PRN DAILY PRN MC SEE COMMENTS; Start 04/06/18 at 11:45; Stop 04/08/18 at 11:44; Status DC Sodium Chloride 50 meq/Sodium Acetate 50 meq/ Potassium Chloride 65 meq/ Potassium Phosphate 13.6 mmol/Magnesium Sulfate 10 meq/ Calcium Gluconate 10 meq / Multivitamins 10 ml/Chromium/ Copper/Manganese/ Seleni/Zn 1 ml/ Folic Acid 1 mg/ Thiamine HCl 100 mg/Total Donna... 1,512 ml @ 63 mls/hr TPN CONT IV Last administered on 04/07/18at 21:55; Start 04/07/18 at 22:00; Stop 04/08/18 at 21:59; Status DC Olanzapine (ZyPREXA IM) 10 mg Q8HRS PRN IM ANXIETY / AGITATION; Start 04/07/18 at 15:00; Stop 04/07/18 at 15:00; Status DC Olanzapine (ZyPREXA IM) 10 mg Q8HRS PRN IM AGITATION; Start 04/07/18 at 15:00; Stop 04/07/18 at 15:23; Status DC Olanzapine (ZyPREXA IM) 10 mg Q8HRS IM Last administered on 04/08/18at 05:50; Start 04/07/18 at 15:00; Stop 04/08/18 at 12:44; Status DC Sodium Chloride 50 meq/Sodium Acetate 50 meq/ Potassium Chloride 65 meq/ Potassium Phosphate 13.6 mmol/Magnesium Sulfate 10 meq/ Multivitamins 10 ml/ Chromium/ Copper/Manganese/ Seleni/Zn 1 ml/ Folic Acid 1 mg/ Thiamine HCl 100 mg /Total Parenteral Nutrition/Amino Acids/Dextrose 1,512 ml @ 63 mls/hr TPN CONT IV Last administered on 04/08/18at 21:56; Start 04/08/18 at 22:00; Stop at 21:59; Status DC Haloperidol Lactate (Haldol Inj) 10 mg Q8HRS IV Last administered on 04/11/18at 06:37; Start 04/08/18 at 14:00 Diphenhydramine HCl (Benadryl) 50 mg Q8HRS IVP Last administered on 04/11/18at 07:28; Start 04/08/18 at 14:00 Sodium Chloride 50 meq/Sodium Acetate 50 meq/ Potassium Chloride 65 meq/ Potassium Phosphate 13.6 mmol/Magnesium Sulfate 10 meq/ Multivitamins 10 ml/ Chromium/ Copper/Manganese/ Seleni/Zn 1 ml/ Folic Acid 1 mg/ Thiamine HCl 100 mg /Total Parenteral Nutrition/Amino Acids/Dextro... 1,492 ml @ 62.167 mls/ hr TPN CONT IV Last administered on 04/09/18at 21:46; Start 04/09/18 at 22:00; Stop 04/10/18 at 21:59; Status DC Scopolamine (Transderm-Scop) 1 patch Q3DAYS TD Last administered on 04/10/18at 01:00; Start 04/10/18 at 01:00 Prochlorperazine Edisylate (Compazine) 10 mg PRN Q6HRS PRN IV NAUSEA/VOMITING 2ND CHOICE Last administered on 04/10/18at 05:45; Start 04/10/18 at 05:30 Sodium Chloride 50 meq/Sodium Acetate 50 meq/ Potassium Chloride 65 meq/ Potassium Phosphate 13.6 mmol/Magnesium Sulfate 10 meq/ Multivitamins 10 ml/ Chromium/ Copper/Manganese/ Seleni/Zn 1 ml/ Folic Acid 1 mg/ Thiamine HCl 100 mg /Total Parenteral Nutrition/Amino Acids/Dextro... 1,492 ml @ 62.167 mls/ hr TPN CONT IV Last administered on 04/10/18at 21:37; Start 04/10/18 at 22:00; Stop 04/11/18 at 21:59 Sodium Chloride 50 meq/Sodium Acetate 50 meq/ Potassium Chloride 65 meq/ Potassium Phosphate 13.6 mmol/Magnesium Sulfate 10 meq/ Multivitamins 10 ml/ Chromium/ Copper/Manganese/ Seleni/Zn 1 ml/ Folic Acid 1 mg/ Thiamine HCl 100 mg /Total Parenteral Nutrition/Amino Acids/Dextro... 1,512 ml @ 63 mls/hr TPN CONT IV ; Start 04/11/18 at 22:00; Stop 04/12/18 at 21:59 Active Scripts Active Diazepam 5 Mg Tablet 5 Mg PO DAILY Reported Proair Hfa Inhaler (Albuterol Sulfate) 8.5 Gm Hfa.aer.ad 1 Puff INH PRN Q4HRS PRN Duoneb 0.5-3(2.5) Mg/3 Ml (Albuterol/Ipratropium) 3 Ml Ampul.neb 3 Ml NEB Q2HR PRN Symbicort 160-4.5 Mcg Inhaler (Budesonide/Formoterol Fumarate) 10.2 Gm Hfa.aer.ad 2 Puff IH BID Prilosec Otc (Omeprazole Magnesium) 20 Mg Tablet.dr 1 Tab PO DAILY Theophylline (Theophylline Anhydrous) 400 Mg Tablet.er 300 Mg PO BID Vitals/I & O Vital Sign - Last 24 Hours 04/10/18 04/10/18 04/10/18 04/10/18 15:00 19:00 19:39 20:00 Temp 97.5 97.4 97.5 97.4 Pulse 85 113 Resp 18 20 B/P (MAP) 165/90 (115) 145/102 (116) Pulse Ox 94 94 96 O2 Delivery Room Air Room Air Room Air Room Air 04/10/18 04/10/18 04/10/18 04/11/18 22:20 23:04 23:33 03:19 Temp 98.5 97.0 98.5 97.0 Pulse 103 100 82 Resp 20 20 B/P (MAP) 161/109 (126) 132/82 (99) 157/96 (116) Pulse Ox 91 92 O2 Delivery Room Air Room Air Room Air 04/11/18 04/11/18 04/11/18 04/11/18 07:00 07:43 08:15 11:28 Temp 96.6 98.6 96.6 98.6 Pulse 82 111 Resp 18 18 B/P (MAP) 144/88 (106) 137/87 (104) Pulse Ox 94 93 95 O2 Delivery Room Air Room Air Room Air Room Air O2 Flow Rate 2.0 Intake and Output 04/10/18 04/10/18 04/11/18 15:00 23:00 07:00 Intake Total 50 ml 1125 ml Output Total 360 ml 0 ml 550 ml Balance -310 ml 1125 ml -550 ml Problem List Problems Medical Problems: (1) Alcoholic pancreatitis Status: Acute (2) ETOH abuse Status: Acute Assessment Alcoholic pancreatitis- slowly improving, interval speech path study possible tomorrow, continue with TPN SURJIT KIMBLE MD Apr 11, 2018 12:12
--- NOTE | 2018-04-11 13:47 | PDOC ---
Infectious Disease Note Subjective Subjective Requesting ice chips Remains NPO TPN No F/C/N/V/D/pain Vital Sign Vital Signs Vital Signs Date Time Temp Pulse Resp B/P (MAP) Pulse Ox O2 Delivery O2 Flow Rate FiO2 04/11/18 11:28 98.6 111 18 137/87 (104) 95 Room Air 98.6 04/11/18 08:15 2.0 Physical Exam PHYSICAL EXAM GENERAL: Lying down, calm, + tremor LUNGS: CTAB CV: S1 S2 ABD: Obese, mildly distended, BS +, NT : Kramer EXT: No gross edema or cyanosis SKIN: LUE biceps area with mild rash RIJ clean Labs Lab Laboratory Tests Test 04/10/18 17:43 04/10/18 17:56 04/10/18 23:17 04/11/18 06:00 Glucose (Fingerstick) 113 mg/dL (70-99) 125 mg/dL (70-99) 139 mg/dL (70-99) White Blood Count 10.2 x10^3/uL (4.0-11.0) Red Blood Count 3.97 x10^6/uL (4.30-5.70) Hemoglobin 9.9 g/dL (13.0-17.5) Hematocrit 30.9 % (39.0-53.0) Mean Corpuscular Volume 78 fL (79-100) Mean Corpuscular Hemoglobin 25 pg (25-35) Mean Corpuscular Hemoglobin Concent 32 g/dL (31-37) Red Cell Distribution Width 17.6 % (11.5-14.5) Platelet Count 786 x10^3/uL (140-400) Neutrophils (%) (Auto) 66 % (31-73) Lymphocytes (%) (Auto) 20 % (24-48) Monocytes (%) (Auto) 8 % (0-9) Eosinophils (%) (Auto) 3 % (0-3) Basophils (%) (Auto) 2 % (0-3) Neutrophils # (Auto) 6.8 x10^3uL (1.8-7.7) Lymphocytes # (Auto) 2.1 x10^3/uL (1.0-4.8) Monocytes # (Auto) 0.8 x10^3/uL (0.0-1.1) Eosinophils # (Auto) 0.3 x10^3/uL (0.0-0.7) Basophils # (Auto) 0.2 x10^3/uL (0.0-0.2) Test 04/11/18 06:54 04/11/18 07:30 04/11/18 10:53 Glucose (Fingerstick) 132 mg/dL (70-99) 150 mg/dL (70-99) 140 mg/dL (70-99) Micro Microbiology 03/27/18 Blood Culture - Preliminary, Resulted NO GROWTH AFTER 1 DAY Objective Assessment Fever - better - likely from pancreatitis/occlusive thrombus vs other, cult nonrevealing, resolving. Nml procalcitonin 04/06. D/c'd Micafungin and linezolid ( 03/30- 04/06 ) with neg cults and a week of treatment Rash LUE - mild Leukocytosis resolved Pancreatitis Encephalopathy, likely medication related ZAIRA - improved Alcoholism with DTs Lung infiltrates likely pulm venous congestion Occlusive thrombus Rt Cephalic vein on TPN Plan Plan of Care Cont Merrem (03/31) Cont to monitor LUE rash GI following D/w RN Patient seen and examined. Chart reviewed in detail. Case discussed with DIRECTOR STRATEGIC PLANNING. I agree with the above Plan ALESHA ELMORE APRN Apr 11, 2018 13:47 LEONIE WOOD MD Apr 11, 2018 18:21
[2018-04-11 15:38] VITALS: BP 131/87
[2018-04-11 19:00] VITALS: BP 148/99
[2018-04-11] MEDS: ALBUTEROL SULFATE 2.5 MG/3 ML NEBU. NEB PRN (21:21)
[2018-04-11] MEDS ORDERED: [UNRECOGNIZED DRUG - OTHER] IV SCH ×12 (22:00)
[2018-04-11] MEDS ORDERED: DEXTROSE 70% IV SCH ×12 (22:00)
[2018-04-11] MEDS ORDERED: TOTAL PARENTERAL NUTRITION IV SCH ×12 (22:00)
[2018-04-11] MEDS ORDERED: AMINO ACIDS IV SCH ×12 (22:00)
[2018-04-11] MEDS: ENOXAPARIN 40 MG/0.4 ML SYRINGE. SQ SCH (22:09)
[2018-04-11 23:00] VITALS: BP 142/87
[2018-04-11] MEDS: ONDANSETRON PF 4 MG/2 ML VIAL. IV PRN (23:32)
[2018-04-12 03:00] VITALS: BP 152/94
[2018-04-12] MEDS: MEROPENEM 500 MG in IV NORMAL SALINE 50ML 50 ML IV SCH ×4 (05:31→23:24)
[2018-04-12] MEDS: diphenhydrAMINE 50 MG/ML VIAL IVP SCH ×3 (05:32→21:16)
[2018-04-12] MEDS: HALOPERIDOL LACTATE 5 MG/ML VIAL. IV SCH ×3 (05:33→21:16)
[2018-04-12] MEDS: PANTOPRAZOLE IV PUSH 40 MG VIAL. IVP SCH (06:23)
[2018-04-12 06:25] LABS: CALCIUM 9.5 mg/dL (8.5-10.1); CREATININE 0.8 mg/dL (0.7-1.3); GFR 106.5; POTASSIUM 4.2 mmol/L (3.5-5.1)
[2018-04-12] MEDS: ONDANSETRON PF 4 MG/2 ML VIAL. IV PRN (06:33)
[2018-04-12 07:00] VITALS: BP 130/70
[2018-04-12 07:08] LABS: BASO # 0.2 x10^3/uL (0.0-0.2); BASO % 2 % (0-3); EOS # 0.4 x10^3/uL (0.0-0.7); EOS % 5 % (0-3); HEMATOCRIT 29.2 % (39.0-53.0); HEMOGLOBIN 9.6 g/dL (13.0-17.5); LYMPH # 2.2 x10^3/uL (1.0-4.8); LYMPH % 24 % (24-48); MEAN CORPUSCULAR HEMOGLOBIN 25 pg (25-35); MEAN CORPUSCULAR HGB CONC 33 g/dL (31-37); MEAN CORPUSCULAR VOLUME 77 fL (79-100); MONO # 0.9 x10^3/uL (0.0-1.1); MONO % 10 % (0-9); NEUT # 5.6 x10^3uL (1.8-7.7); NEUT % 60 % (31-73); PLATELET COUNT 704 x10^3/uL (140-400); RED BLOOD COUNT 3.79 x10^6/uL (4.30-5.70); RED CELL DISTRIBUTION WIDTH 17.5 % (11.5-14.5); WHITE BLOOD COUNT 9.3 x10^3/uL (4.0-11.0)
[2018-04-12] MEDS: BUDESONIDE 0.5 MG/2 ML NEBU. NEB SCH ×2 (08:04→19:21)
[2018-04-12] MEDS: TPN PER PHARMACY MC PRN (09:59)
--- NOTE | 2018-04-12 10:52 | PDOC ---
PROGRESS NOTES Chief Complaint Chief Complaint presented with Abd pain N/V and pancreatitis today he feels better , passed swallow test, started diet wean off TPN and decrease pain medication frequency History of Present Illness History of Present Illness Acute Pancreatitis Alcohol abuse and withdrawal AMS metabolic encephalopathy with alcohol withdrawal Severe agitation with homocide ideation requiring sedation and intubation 03/31 Acute hypoxic resp failure h/o Asthma GERD HTN Fever - better - likely from pancreatitis/occlusive thrombus vs other, cult nonrevealing, resolving. Nml procalcitonin 04/06. ID D/c'd Micafungin and linezolid ( 03/30- 04/06 ) with neg cults and a week of treatment Morbid obesity Leukocytosis resolving Hepatic lesions on CT ZAIRA - improved Lung infiltrates likely pulm venous congestion Occlusive thrombus Rt Cephalic vein Rash LUE - mild on TPN Plan Plan of Care Cont Merrem (03/31) Cont to monitor LUE rash GI following started po today after passing swallow test, wean TPN decrease frequency of pain medication Vitals Vitals Vital Signs Date Time Temp Pulse Resp B/P (MAP) Pulse Ox O2 Delivery O2 Flow Rate FiO2 04/12/18 08:15 Room Air 2.0 04/12/18 07:00 97.5 77 20 130/70 (90) 97 97.5 Physical Exam Physical Exam CONST: NAD, coop, in bed Heent Nml cephalic NECK: supple. no JVD LUNGS: Breathing nonlabored CV: Regular ABD: Obese, mildly distended ,BS +, NT SKIN: no rash in gen but LUE biceps mild erythema - stable rt central line in place, clean General: Alert, Cooperative, No acute distress Heart: Regular rate, Normal S1, Normal S2 Lungs: Clear, Other Abdomen: Soft, No masses Extremities: No cyanosis, No edema Skin: No rashes, No breakdown Labs LABS Laboratory Tests Test 04/11/18 10:53 04/11/18 16:19 04/11/18 21:30 04/12/18 06:00 Glucose (Fingerstick) 140 mg/dL (70-99) 134 mg/dL (70-99) 137 mg/dL (70-99) White Blood Count 9.3 x10^3/uL (4.0-11.0) Red Blood Count 3.79 x10^6/uL (4.30-5.70) Hemoglobin 9.6 g/dL (13.0-17.5) Hematocrit 29.2 % (39.0-53.0) Mean Corpuscular Volume 77 fL (79-100) Mean Corpuscular Hemoglobin 25 pg (25-35) Mean Corpuscular Hemoglobin Concent 33 g/dL (31-37) Red Cell Distribution Width 17.5 % (11.5-14.5) Platelet Count 704 x10^3/uL (140-400) Neutrophils (%) (Auto) 60 % (31-73) Lymphocytes (%) (Auto) 24 % (24-48) Monocytes (%) (Auto) 10 % (0-9) Eosinophils (%) (Auto) 5 % (0-3) Basophils (%) (Auto) 2 % (0-3) Neutrophils # (Auto) 5.6 x10^3uL (1.8-7.7) Lymphocytes # (Auto) 2.2 x10^3/uL (1.0-4.8) Monocytes # (Auto) 0.9 x10^3/uL (0.0-1.1) Eosinophils # (Auto) 0.4 x10^3/uL (0.0-0.7) Basophils # (Auto) 0.2 x10^3/uL (0.0-0.2) Sodium Level 141 mmol/L (136-145) Potassium Level 4.2 mmol/L (3.5-5.1) Chloride Level 105 mmol/L (98-107) Carbon Dioxide Level 26 mmol/L (21-32) Anion Gap 10 (6-14) Blood Urea Nitrogen 19 mg/dL (8-26) Creatinine 0.8 mg/dL (0.7-1.3) Estimated GFR (Cockcroft-Gault) 106.5 Glucose Level 124 mg/dL (70-99) Calcium Level 9.5 mg/dL (8.5-10.1) Test 04/12/18 06:03 Glucose (Fingerstick) 113 mg/dL (70-99) Assessment and Plan Assessmemt and Plan Problems Medical Problems: (1) Alcoholic pancreatitis Status: Acute (2) ETOH abuse Status: Acute Comment Review of Relevant I have reviewed the following items wali (where applicable) has been applied. Labs Laboratory Tests Test 04/10/18 13:33 04/10/18 17:43 04/10/18 17:56 04/10/18 23:17 Sodium Level 143 mmol/L (136-145) Potassium Level 4.3 mmol/L (3.5-5.1) Chloride Level 104 mmol/L (98-107) Carbon Dioxide Level 28 mmol/L (21-32) Anion Gap 11 (6-14) Blood Urea Nitrogen 19 mg/dL (8-26) Creatinine 0.8 mg/dL (0.7-1.3) Estimated GFR (Cockcroft-Gault) 106.5 BUN/Creatinine Ratio 24 (6-20) Glucose Level 140 mg/dL (70-99) Calcium Level 10.0 mg/dL (8.5-10.1) Total Bilirubin 0.5 mg/dL (0.2-1.0) Aspartate Amino Transf (AST/SGOT) 29 U/L (15-37) Alanine Aminotransferase (ALT/SGPT) 44 U/L (16-63) Alkaline Phosphatase 86 U/L (46-116) Total Protein 9.0 g/dL (6.4-8.2) Albumin 2.9 g/dL (3.4-5.0) Albumin/Globulin Ratio 0.5 (1.0-1.7) Glucose (Fingerstick) 113 mg/dL (70-99) 125 mg/dL (70-99) 139 mg/dL (70-99) Test 04/11/18 06:00 04/11/18 06:54 04/11/18 07:30 04/11/18 10:53 White Blood Count 10.2 x10^3/uL (4.0-11.0) Red Blood Count 3.97 x10^6/uL (4.30-5.70) Hemoglobin 9.9 g/dL (13.0-17.5) Hematocrit 30.9 % (39.0-53.0) Mean Corpuscular Volume 78 fL (79-100) Mean Corpuscular Hemoglobin 25 pg (25-35) Mean Corpuscular Hemoglobin Concent 32 g/dL (31-37) Red Cell Distribution Width 17.6 % (11.5-14.5) Platelet Count 786 x10^3/uL (140-400) Neutrophils (%) (Auto) 66 % (31-73) Lymphocytes (%) (Auto) 20 % (24-48) Monocytes (%) (Auto) 8 % (0-9) Eosinophils (%) (Auto) 3 % (0-3) Basophils (%) (Auto) 2 % (0-3) Neutrophils # (Auto) 6.8 x10^3uL (1.8-7.7) Lymphocytes # (Auto) 2.1 x10^3/uL (1.0-4.8) Monocytes # (Auto) 0.8 x10^3/uL (0.0-1.1) Eosinophils # (Auto) 0.3 x10^3/uL (0.0-0.7) Basophils # (Auto) 0.2 x10^3/uL (0.0-0.2) Glucose (Fingerstick) 132 mg/dL (70-99) 150 mg/dL (70-99) 140 mg/dL (70-99) Test 04/11/18 16:19 04/11/18 21:30 04/12/18 06:00 04/12/18 06:03 Glucose (Fingerstick) 134 mg/dL (70-99) 137 mg/dL (70-99) 113 mg/dL (70-99) White Blood Count 9.3 x10^3/uL (4.0-11.0) Red Blood Count 3.79 x10^6/uL (4.30-5.70) Hemoglobin 9.6 g/dL (13.0-17.5) Hematocrit 29.2 % (39.0-53.0) Mean Corpuscular Volume 77 fL (79-100) Mean Corpuscular Hemoglobin 25 pg (25-35) Mean Corpuscular Hemoglobin Concent 33 g/dL (31-37) Red Cell Distribution Width 17.5 % (11.5-14.5) Platelet Count 704 x10^3/uL (140-400) Neutrophils (%) (Auto) 60 % (31-73) Lymphocytes (%) (Auto) 24 % (24-48) Monocytes (%) (Auto) 10 % (0-9) Eosinophils (%) (Auto) 5 % (0-3) Basophils (%) (Auto) 2 % (0-3) Neutrophils # (Auto) 5.6 x10^3uL (1.8-7.7) Lymphocytes # (Auto) 2.2 x10^3/uL (1.0-4.8) Monocytes # (Auto) 0.9 x10^3/uL (0.0-1.1) Eosinophils # (Auto) 0.4 x10^3/uL (0.0-0.7) Basophils # (Auto) 0.2 x10^3/uL (0.0-0.2) Sodium Level 141 mmol/L (136-145) Potassium Level 4.2 mmol/L (3.5-5.1) Chloride Level 105 mmol/L (98-107) Carbon Dioxide Level 26 mmol/L (21-32) Anion Gap 10 (6-14) Blood Urea Nitrogen 19 mg/dL (8-26) Creatinine 0.8 mg/dL (0.7-1.3) Estimated GFR (Cockcroft-Gault) 106.5 Glucose Level 124 mg/dL (70-99) Calcium Level 9.5 mg/dL (8.5-10.1) Laboratory Tests Test 04/11/18 10:53 04/11/18 16:19 04/11/18 21:30 04/12/18 06:00 Glucose (Fingerstick) 140 mg/dL (70-99) 134 mg/dL (70-99) 137 mg/dL (70-99) White Blood Count 9.3 x10^3/uL (4.0-11.0) Red Blood Count 3.79 x10^6/uL (4.30-5.70) Hemoglobin 9.6 g/dL (13.0-17.5) Hematocrit 29.2 % (39.0-53.0) Mean Corpuscular Volume 77 fL (79-100) Mean Corpuscular Hemoglobin 25 pg (25-35) Mean Corpuscular Hemoglobin Concent 33 g/dL (31-37) Red Cell Distribution Width 17.5 % (11.5-14.5) Platelet Count 704 x10^3/uL (140-400) Neutrophils (%) (Auto) 60 % (31-73) Lymphocytes (%) (Auto) 24 % (24-48) Monocytes (%) (Auto) 10 % (0-9) Eosinophils (%) (Auto) 5 % (0-3) Basophils (%) (Auto) 2 % (0-3) Neutrophils # (Auto) 5.6 x10^3uL (1.8-7.7) Lymphocytes # (Auto) 2.2 x10^3/uL (1.0-4.8) Monocytes # (Auto) 0.9 x10^3/uL (0.0-1.1) Eosinophils # (Auto) 0.4 x10^3/uL (0.0-0.7) Basophils # (Auto) 0.2 x10^3/uL (0.0-0.2) Sodium Level 141 mmol/L (136-145) Potassium Level 4.2 mmol/L (3.5-5.1) Chloride Level 105 mmol/L (98-107) Carbon Dioxide Level 26 mmol/L (21-32) Anion Gap 10 (6-14) Blood Urea Nitrogen 19 mg/dL (8-26) Creatinine 0.8 mg/dL (0.7-1.3) Estimated GFR (Cockcroft-Gault) 106.5 Glucose Level 124 mg/dL (70-99) Calcium Level 9.5 mg/dL (8.5-10.1) Test 04/12/18 06:03 Glucose (Fingerstick) 113 mg/dL (70-99) Microbiology 03/31/18 Blood Culture - Final, Complete NO GROWTH AFTER 5 DAYS Medications Current Medications Multivitamins 10 ml/Thiamine HCl 100 mg/Folic Acid 1 mg/Sodium Chloride 1,011.2 ml @ 1,000.088 mls/hr 1X ONCE IV Last administered on 03/26/18at 15:07; Start 03/26/18 at 14:00; Stop 03/26/18 at 15:00; Status DC Ondansetron HCl (Zofran) 4 mg 1X ONCE IV Last administered on 03/26/18at 14:13 ; Start 03/26/18 at 14:00; Stop 03/26/18 at 14:10; Status DC Pantoprazole Sodium (PROTONIX VIAL for IV PUSH) 40 mg 1X ONCE IVP Last administered on 03/26/18at 14:13; Start 03/26/18 at 14:00; Stop 03/26/18 at 14:10 ; Status DC Pantoprazole Sodium (PROTONIX VIAL for IV PUSH) 40 mg STK-MED ONCE IVP ; Start 03/26/18 at 14:10; Stop 03/26/18 at 14:11; Status DC Ondansetron HCl (Zofran) 4 mg STK-MED ONCE .ROUTE ; Start 03/26/18 at 14:10; Stop 03/26/18 at 14:11; Status DC Iohexol (Omnipaque 300 Mg/ml) 75 ml 1X ONCE IV Last administered on 03/26/18at 14:38; Start 03/26/18 at 14:45; Stop 03/26/18 at 14:46; Status DC Iohexol (Omnipaque 300 Mg/ml) 100 ml STK-MED ONCE .ROUTE ; Start 03/26/18 at 14: 38; Stop 03/26/18 at 14:39; Status DC Info (CONTRAST GIVEN -- Rx MONITORING) 1 each PRN DAILY PRN MC SEE COMMENTS; Start 03/26/18 at 14:45; Stop 03/28/18 at 14:44; Status DC Ondansetron HCl (Zofran) 4 mg 1X ONCE IV Last administered on 03/26/18at 15:08 ; Start 03/26/18 at 15:00; Stop 03/26/18 at 15:01; Status DC Morphine Sulfate (Morphine Sulfate) 5 mg 1X ONCE IV Last administered on at 15:09; Start 03/26/18 at 15:00; Stop 03/26/18 at 15:01; Status DC Ondansetron HCl (Zofran) 4 mg PRN Q8HRS PRN IV NAUSEA/VOMITING Last administered on 03/27/18at 12:22; Start 03/26/18 at 15:15; Stop 03/27/18 at 15:14 ; Status DC Morphine Sulfate (Morphine Sulfate) 4 mg PRN Q2HR PRN IV PAIN Last administered on 03/27/18at 15:12; Start 03/26/18 at 15:15; Stop 03/27/18 at 15:14 ; Status DC Multivitamins 10 ml/Thiamine HCl 100 mg/Folic Acid 1 mg/Sodium Chloride 1,011.2 ml @ 100 mls/ hr DAILY IV Last administered on 03/30/18at 07:52; Start at 16:00; Stop 03/30/18 at 19:07; Status DC Lorazepam (Ativan) 2 mg PRN Q1HR PRN IV For CIWA 8-14 Last administered on 03/26at 15:59; Start 03/26/18 at 15:15; Stop 03/26/18 at 16:43; Status DC Sodium Chloride 1,000 ml @ 125 mls/hr 1X ONCE IV Last administered on at 02:10; Start 03/26/18 at 15:15; Stop 03/26/18 at 23:14; Status DC Pantoprazole Sodium (PROTONIX VIAL for IV PUSH) 40 mg DAILYAC IVP Last administered on 03/30/18at 07:52; Start 03/27/18 at 07:30; Stop 03/30/18 at 10:52 ; Status DC Multivitamins 10 ml/Thiamine HCl 100 mg/Folic Acid 1 mg/Sodium Chloride 1,011.2 ml @ 100 mls/ hr DAILY IV ; Start 03/27/18 at 09:00; Stop 03/31/18 at 19:07; Status UNV Multivitamins (Thera M Plus) 1 tab DAILY PO ; Start 03/31/18 at 09:00; Stop at 14:18; Status DC Folic Acid (Folic Acid) 1 mg DAILY PO ; Start 03/31/18 at 09:00; Stop 03/31/18 at 14:18; Status DC Thiamine HCl 100 mg/Dextrose 51 ml @ 100 mls/hr DAILY IV ; Start 03/27/18 at 09 :00; Stop 03/31/18 at 09:31; Status UNV Lorazepam (Ativan) 2 mg Q6H PO Last administered on 03/26/18at 22:19; Start at 17:00; Stop 03/27/18 at 01:47; Status DC Lorazepam (Ativan) 4 mg PRN Q1HR PRN PO For CIWA 8-14; Start 03/26/18 at 16:45 Lorazepam (Ativan) 2 mg PRN Q1HR PRN IV For CIWA 8-14 Last administered on 04/10at 07:51; Start 03/26/18 at 16:45 Lorazepam (Ativan) 4 mg PRN Q1HR PRN IV For CIWA 15 or greater Last administered on 04/09/18at 14:51; Start 03/26/18 at 16:45 Haloperidol Lactate (Haldol Inj) 5 mg PRN Q4HRS PRN IVP Hallucinatns,Confusn, Delirium Last administered on 04/06/18at 11:21; Start 03/26/18 at 16:45 Diphenhydramine HCl (Benadryl) 25 mg PRN Q15MIN PRN IVP EPS symptoms 2'Haldol admin Last administered on 03/29/18at 08:25; Start 03/26/18 at 16:45 Clonidine HCl (Catapres) 0.1 mg PRN Q1HR PRN PO SBP > 180 or DBP > 100, MRX3 Last administered on 03/27/18at 05:28; Start 03/26/18 at 16:45 Lorazepam (Ativan) 2 mg PRN Q15MIN PRN IV ; Start 03/26/18 at 16:45; Status UNV Lorazepam (Ativan) 4 mg PRN Q15MIN PRN IV ; Start 03/26/18 at 16:45; Status UNV Pantoprazole Sodium (PROTONIX VIAL for IV PUSH) 40 mg DAILYAC IVP ; Start at 07:30; Status UNV Enoxaparin Sodium (Lovenox 40mg Syringe) 40 mg Q24H SQ Last administered on at 22:09; Start 03/26/18 at 21:00 Albuterol Sulfate (Ventolin Neb Soln) 2.5 mg PRN Q2HRS PRN NEB SHORTNESS OF BREATH Last administered on 03/29/18at 04:12; Start 03/26/18 at 17:00; Stop 03/30 at 13:29; Status DC Non-Formulary Medication (Albuterol Sulfate (Proair Hfa Inhaler)) 1 puff PRN Q4HRS PRN INH SHORTNESS OF BREATH; Start 03/26/18 at 16:45; Status UNV Non-Formulary Medication (Budesonide/ Formoterol Fumarate (Symbicort 160-4.5 Mcg Inhaler)) 2 puff BID IH ; Start 03/26/18 at 21:00; Status UNV Theophylline (Theodur) 300 mg BID PO Last administered on 03/30/18at 08:45; Start 03/26/18 at 21:00; Stop 04/02/18 at 08:50; Status DC Budesonide (Pulmicort) 0.5 mg RTBID NEB Last administered on 04/12/18at 08:04; Start 03/26/18 at 20:00 Albuterol Sulfate (Ventolin Neb Soln) 2.5 mg RTQID NEB Last administered on at 12:28; Start 03/26/18 at 20:00; Stop 03/30/18 at 13:24; Status DC Sodium Chloride 1,000 ml @ 1,000 mls/hr 1X ONCE IV Last administered on at 12:23; Start 03/27/18 at 12:15; Stop 03/27/18 at 13:14; Status DC Sodium Chloride 1,000 ml @ 1,000 mls/hr 1X ONCE IV Last administered on at 13:05; Start 03/27/18 at 12:15; Stop 03/27/18 at 13:14; Status DC Sodium Chloride 1,000 ml @ 1,000 mls/hr 1X ONCE IV Last administered on at 14:11; Start 03/27/18 at 12:15; Stop 03/27/18 at 13:14; Status DC Sodium Chloride 136 ml @ 500 mls/hr 1X ONCE IV Last administered on at 12:15; Start 03/27/18 at 12:15; Stop 03/27/18 at 12:31; Status DC Piperacillin Sod/ Tazobactam Sod 3.375 gm/Sodium Chloride 50 ml @ 100 mls/hr Q6HRS IV Last administered on 03/31/18at 12:16; Start 03/27/18 at 16:00; Stop at 13:38; Status DC Morphine Sulfate (Morphine Sulfate) 2 mg PRN Q2HR PRN IV PAIN Last administered on 03/31/18at 10:42; Start 03/27/18 at 16:45 Ondansetron HCl (Zofran) 4 mg PRN Q6HRS PRN IV NAUSEA/VOMITING 1ST CHOICE Last administered on 04/12/18at 06:33; Start 03/27/18 at 16:45 Sodium Chloride 1,000 ml @ 125 mls/hr Q8H IV Last administered on 03/29/18at 10 :14; Start 03/27/18 at 17:45; Stop 03/29/18 at 14:21; Status DC Diazepam (Valium) 5 mg PRN Q2HR PRN PO Agitation/Alcohol withdraw Last administered on 03/29/18at 02:47; Start 03/29/18 at 01:45 Belladonna Alkaloids/Opium (B & O) 1 supp PRN Q12HR PRN SD BLADDER SPASM Last administered on 03/29/18at 02:58; Start 03/29/18 at 01:45 Dexmedetomidine HCl 200 mcg/ Sodium Chloride 50 ml @ 0 mls/hr CONT PRN IV PER PROTOCOL Last administered on 04/09/18at 07:41; Start 03/29/18 at 08:30; Stop at 07:53; Status DC Sodium Chloride 500 ml @ 500 mls/hr 1X PRN PRN IV SEE COMMENTS; Start at 08:30 Atropine Sulfate (ATROPINE 0.5mg SYRINGE) 0.5 mg PRN Q5MIN PRN IV SEE COMMENTS ; Start 03/29/18 at 08:30 Potassium Chloride (Klor-Con) 40 meq 1X ONCE PO Last administered on at 14:25; Start 03/29/18 at 13:15; Stop 03/29/18 at 13:16; Status DC Potassium Chloride/Sodium Chloride 1,000 ml @ 75 mls/hr [id number] IV Last administered on 04/01/18at 08:47; Start 03/29/18 at 14:15; Stop 04/01/18 at 13:39 ; Status DC Pantoprazole Sodium (Protonix) 40 mg DAILYAC PO ; Start 03/31/18 at 07:30; Stop 03/31/18 at 11:32; Status DC Albuterol Sulfate (Ventolin Neb Soln) 2.5 mg PRN Q4HRS PRN NEB WHEEZING Last administered on 04/11/18at 21:21; Start 03/30/18 at 13:30 Micafungin Sodium 100 mg/Dextrose 100 ml @ 100 mls/hr Q24H IV Last administered on 04/05/18at 15:07; Start 03/30/18 at 15:00; Stop 04/06/18 at 08:05 ; Status DC Linezolid/Dextrose 300 ml @ 300 mls/hr Q12HR IV Last administered on at 21:33; Start 03/30/18 at 14:00; Stop 04/06/18 at 08:05; Status DC Olanzapine (ZyPREXA IM) 10 mg PRN Q8HRS PRN IM ANXIETY / AGITATION; Start 03/30 at 14:00; Stop 04/07/18 at 14:49; Status DC Labetalol HCl (Normodyne Iv Push) 20 mg PRN Q2HR PRN IVP GIVE FOR SBP > 180 DBP >110 Last administered on 04/10/18at 02:51; Start 03/30/18 at 17:15 Acetaminophen (Tylenol Supp) 650 mg PRN Q6HRS PRN SD MILD PAIN / TEMP Last administered on 03/31/18at 15:02; Start 03/30/18 at 17:15 Iohexol (Omnipaque 300 Mg/ml) 75 ml 1X ONCE IV ; Start 03/31/18 at 09:15; Stop 03/31/18 at 09:16; Status DC Info (CONTRAST GIVEN -- Rx MONITORING) 1 each PRN DAILY PRN MC SEE COMMENTS; Start 03/31/18 at 09:15; Stop 04/02/18 at 09:14; Status DC Iohexol (Omnipaque 300 Mg/ml) 75 ml 1X ONCE IV Last administered on 03/31/18at 10:29; Start 03/31/18 at 10:00; Stop 03/31/18 at 10:04; Status DC Fentanyl Citrate 30 ml @ 0 mls/hr CONT PRN IV PER PROTOCOL Last administered on 04/08/18at 13:59; Start 03/31/18 at 11:00; Stop 04/11/18 at 08:11; Status DC Lorazepam (Ativan) 2 mg STK-MED ONCE .ROUTE ; Start 03/31/18 at 11:02; Stop at 11:03; Status DC Vecuronium [place] (Norcuron Bolus) 10 mg STK-MED ONCE IV ; Start 03/31/18 at 11 :05; Stop 03/31/18 at 11:06; Status DC Propofol 100 ml @ As Directed STK-MED ONCE IV ; Start 03/31/18 at 11:08; Stop 03/31/18 at 11:09; Status DC Vecuronium [place] (Norcuron Bolus) 10 mg STK-MED ONCE IV ; Start 03/31/18 at 11 :08; Stop 03/31/18 at 11:10; Status DC Succinylcholine Chloride (Anectine) 200 mg 1X ONCE IV ; Start 03/31/18 at 11:30 ; Stop 03/31/18 at 11:31; Status DC Propofol 100 ml @ 0 mls/hr CONT PRN IV PER PROTOCOL Last administered on at 15:13; Start 03/31/18 at 11:30; Stop 04/11/18 at 07:52; Status DC Chlorhexidine Gluconate (Peridex) 15 ml BID MM Last administered on 04/08/18at 07:56; Start 03/31/18 at 21:00; Stop 04/10/18 at 12:08; Status DC Pantoprazole Sodium (PROTONIX VIAL for IV PUSH) 40 mg DAILYAC IVP Last administered on 04/12/18 06:23; Start 04/01/18 at 07:30 Vecuronium [place] (Norcuron Bolus) 10 mg 1X ONCE IV Last administered on 03/31at 11:58; Start 03/31/18 at 12:00; Stop 03/31/18 at 12:01; Status DC Meropenem 500 mg/ Sodium Chloride 50 ml @ 100 mls/hr Q6HRS IV Last administered on 04/12/18at 05:31; Start 03/31/18 at 18:00 Info (Tpn Per Pharmacy) 1 each PRN DAILY PRN MC SEE COMMENTS Last administered on 04/12/18at 09:59; Start 03/31/18 at 14:00 Sodium Chloride 45 meq/Sodium Acetate 45 meq/ Potassium Chloride 50 meq/ Potassium Phosphate 13.6 mmol/Magnesium Sulfate 10 meq/ Calcium Gluconate 10 meq / Multivitamins 10 ml/Chromium/ Copper/Manganese/ Seleni/Zn 1 ml/ Folic Acid 1 mg/ Thiamine HCl 100 mg/Total Donna... 1,512 ml @ 63 mls/hr TPN CONT IV Last administered on 03/31/18at 21:41; Start 03/31/18 at 22:00; Stop 04/01/18 at 21:59; Status DC Octreotide Acetate (SandoSTATIN) 100 mcg Q8HRS SQ Last administered on 9/23/ 18at 06:14; Start 03/31/18 at 15:30; Stop 04/05/18 at 11:58; Status DC Vecuronium [place] (Norcuron Bolus) 10 mg STK-MED ONCE IV ; Start 03/31/18 at 11 :10; Stop 04/01/18 at 09:10; Status DC Lorazepam (Ativan) 2 mg STK-MED ONCE .ROUTE ; Start 03/31/18 at 11:10; Stop at 09:10; Status DC Sodium Chloride 45 meq/Sodium Acetate 45 meq/ Potassium Chloride 70 meq/ Potassium Phosphate 13.6 mmol/Magnesium Sulfate 10 meq/ Calcium Gluconate 10 meq / Multivitamins 10 ml/Chromium/ Copper/Manganese/ Seleni/Zn 1 ml/ Folic Acid 1 mg/ Thiamine HCl 100 mg/Total Donna... 1,512 ml @ 63 mls/hr TPN CONT IV Last administered on 04/01/18at 22:35; Start 04/01/18 at 22:00; Stop 04/02/18 at 21:59; Status DC Furosemide (Lasix) 20 mg 1X ONCE IVP Last administered on 04/02/18at 09:12; Start 04/02/18 at 09:30; Stop 04/02/18 at 09:31; Status DC Sodium Chloride 45 meq/Sodium Acetate 45 meq/ Potassium Chloride 70 meq/ Potassium Phosphate 13.6 mmol/Magnesium Sulfate 10 meq/ Calcium Gluconate 10 meq / Multivitamins 10 ml/Chromium/ Copper/Manganese/ Seleni/Zn 1 ml/ Folic Acid 1 mg/ Thiamine HCl 100 mg/Total Donna... 1,512 ml @ 63 mls/hr TPN CONT IV Last administered on 04/02/18at 22:18; Start 04/02/18 at 22:00; Stop 04/03/18 at 21:59; Status DC Multi-Ingred Cream/Lotion/Oil/ Oint (Artificial Tears Eye Ointment) 1 rosemary Q12HR OU Last administered on 04/08/18at 07:56; Start 04/02/18 at 14:00; Stop at 08:12; Status DC Sodium Chloride 45 meq/Sodium Acetate 45 meq/ Potassium Chloride 70 meq/ Potassium Phosphate 13.6 mmol/Magnesium Sulfate 10 meq/ Calcium Gluconate 10 meq / Multivitamins 10 ml/Chromium/ Copper/Manganese/ Seleni/Zn 1 ml/ Folic Acid 1 mg/ Thiamine HCl 100 mg/Total Odnna... 1,512 ml @ 63 mls/hr TPN CONT IV Last administered on 04/03/18at 21:11; Start 04/03/18 at 22:00; Stop 04/04/18 at 21:59; Status DC Sodium Chloride 60 meq/Sodium Acetate 50 meq/ Potassium Chloride 70 meq/ Potassium Phosphate 13.6 mmol/Magnesium Sulfate 10 meq/ Calcium Gluconate 10 meq / Multivitamins 10 ml/Chromium/ Copper/Manganese/ Seleni/Zn 1 ml/ Folic Acid 1 mg/ Thiamine HCl 100 mg/Total Donna... 1,512 ml @ 63 mls/hr TPN CONT IV Last administered on 04/04/18at 21:40; Start 04/04/18 at 22:00; Stop 04/05/18 at 21:59; Status DC Sodium Chloride 50 meq/Sodium Acetate 50 meq/ Potassium Chloride 70 meq/ Potassium Phosphate 13.6 mmol/Magnesium Sulfate 10 meq/ Calcium Gluconate 10 meq / Multivitamins 10 ml/Chromium/ Copper/Manganese/ Seleni/Zn 1 ml/ Folic Acid 1 mg/ Thiamine HCl 100 mg/Total Donna... 1,512 ml @ 63 mls/hr TPN CONT IV Last administered on 04/05/18at 21:34; Start 04/05/18 at 22:00; Stop 04/06/18 at 21:59; Status DC Sodium Chloride 50 meq/Sodium Acetate 50 meq/ Potassium Chloride 70 meq/ Potassium Phosphate 13.6 mmol/Magnesium Sulfate 10 meq/ Calcium Gluconate 10 meq / Multivitamins 10 ml/Chromium/ Copper/Manganese/ Seleni/Zn 1 ml/ Folic Acid 1 mg/ Thiamine HCl 100 mg/Total Donna... 1,512 ml @ 63 mls/hr TPN CONT IV Last administered on 04/06/18at 21:24; Start 04/06/18 at 22:00; Stop 04/07/18 at 21:59; Status DC Iohexol (Omnipaque 300 Mg/ml) 75 ml 1X ONCE IV Last administered on 04/06/18at 11:45; Start 04/06/18 at 11:45; Stop 04/06/18 at 11:46; Status DC Info (CONTRAST GIVEN -- Rx MONITORING) 1 each PRN DAILY PRN MC SEE COMMENTS; Start 04/06/18 at 11:45; Stop 04/08/18 at 11:44; Status DC Sodium Chloride 50 meq/Sodium Acetate 50 meq/ Potassium Chloride 65 meq/ Potassium Phosphate 13.6 mmol/Magnesium Sulfate 10 meq/ Calcium Gluconate 10 meq / Multivitamins 10 ml/Chromium/ Copper/Manganese/ Seleni/Zn 1 ml/ Folic Acid 1 mg/ Thiamine HCl 100 mg/Total Donna... 1,512 ml @ 63 mls/hr TPN CONT IV Last administered on 04/07/18at 21:55; Start 04/07/18 at 22:00; Stop 04/08/18 at 21:59; Status DC Olanzapine (ZyPREXA IM) 10 mg Q8HRS PRN IM ANXIETY / AGITATION; Start 04/07/18 at 15:00; Stop 04/07/18 at 15:00; Status DC Olanzapine (ZyPREXA IM) 10 mg Q8HRS PRN IM AGITATION; Start 04/07/18 at 15:00; Stop 04/07/18 at 15:23; Status DC Olanzapine (ZyPREXA IM) 10 mg Q8HRS IM Last administered on 04/08/18at 05:50; Start 04/07/18 at 15:00; Stop 04/08/18 at 12:44; Status DC Sodium Chloride 50 meq/Sodium Acetate 50 meq/ Potassium Chloride 65 meq/ Potassium Phosphate 13.6 mmol/Magnesium Sulfate 10 meq/ Multivitamins 10 ml/ Chromium/ Copper/Manganese/ Seleni/Zn 1 ml/ Folic Acid 1 mg/ Thiamine HCl 100 mg /Total Parenteral Nutrition/Amino Acids/Dextrose 1,512 ml @ 63 mls/hr TPN CONT IV Last administered on 04/08/18at 21:56; Start 04/08/18 at 22:00; Stop at 21:59; Status DC Haloperidol Lactate (Haldol Inj) 10 mg Q8HRS IV Last administered on 04/12/18at 05:33; Start 04/08/18 at 14:00 Diphenhydramine HCl (Benadryl) 50 mg Q8HRS IVP Last administered on 04/12/18at 05:32; Start 04/08/18 at 14:00 Sodium Chloride 50 meq/Sodium Acetate 50 meq/ Potassium Chloride 65 meq/ Potassium Phosphate 13.6 mmol/Magnesium Sulfate 10 meq/ Multivitamins 10 ml/ Chromium/ Copper/Manganese/ Seleni/Zn 1 ml/ Folic Acid 1 mg/ Thiamine HCl 100 mg /Total Parenteral Nutrition/Amino Acids/Dextro... 1,492 ml @ 62.167 mls/ hr TPN CONT IV Last administered on 04/09/18at 21:46; Start 04/09/18 at 22:00; Stop 04/10/18 at 21:59; Status DC Scopolamine (Transderm-Scop) 1 patch Q3DAYS TD Last administered on 04/10/18at 01:00; Start 04/10/18 at 01:00; Stop 04/12/18 at 07:25; Status DC Prochlorperazine Edisylate (Compazine) 10 mg PRN Q6HRS PRN IV NAUSEA/VOMITING 2ND CHOICE Last administered on 04/10/18at 05:45; Start 04/10/18 at 05:30 Sodium Chloride 50 meq/Sodium Acetate 50 meq/ Potassium Chloride 65 meq/ Potassium Phosphate 13.6 mmol/Magnesium Sulfate 10 meq/ Multivitamins 10 ml/ Chromium/ Copper/Manganese/ Seleni/Zn 1 ml/ Folic Acid 1 mg/ Thiamine HCl 100 mg /Total Parenteral Nutrition/Amino Acids/Dextro... 1,492 ml @ 62.167 mls/ hr TPN CONT IV Last administered on 04/10/18at 21:37; Start 04/10/18 at 22:00; Stop 04/11/18 at 21:59; Status DC Sodium Chloride 50 meq/Sodium Acetate 50 meq/ Potassium Chloride 65 meq/ Potassium Phosphate 13.6 mmol/Magnesium Sulfate 10 meq/ Multivitamins 10 ml/ Chromium/ Copper/Manganese/ Seleni/Zn 1 ml/ Folic Acid 1 mg/ Thiamine HCl 100 mg /Total Parenteral Nutrition/Amino Acids/Dextro... 1,512 ml @ 63 mls/hr TPN CONT IV Last administered on 04/11/18at 22:10; Start 04/11/18 at 22:00; Stop at 21:59 Sodium Chloride 50 meq/Sodium Acetate 50 meq/ Potassium Chloride 65 meq/ Potassium Phosphate 13.6 mmol/Magnesium Sulfate 10 meq/ Multivitamins 10 ml/ Chromium/ Copper/Manganese/ Seleni/Zn 1 ml/ Folic Acid 1 mg/ Thiamine HCl 100 mg /Total Parenteral Nutrition/Amino Acids/Dextro... 1,512 ml @ 63 mls/hr TPN CONT IV ; Start 04/12/18 at 22:00; Stop 04/13/18 at 21:59 Active Scripts Active Diazepam 5 Mg Tablet 5 Mg PO DAILY Reported Proair Hfa Inhaler (Albuterol Sulfate) 8.5 Gm Hfa.aer.ad 1 Puff INH PRN Q4HRS PRN Duoneb 0.5-3(2.5) Mg/3 Ml (Albuterol/Ipratropium) 3 Ml Ampul.neb 3 Ml NEB Q2HR PRN Symbicort 160-4.5 Mcg Inhaler (Budesonide/Formoterol Fumarate) 10.2 Gm Hfa.aer.ad 2 Puff IH BID Prilosec Otc (Omeprazole Magnesium) 20 Mg Tablet.dr 1 Tab PO DAILY Theophylline (Theophylline Anhydrous) 400 Mg Tablet.er 300 Mg PO BID Vitals/I & O Vital Sign - Last 24 Hours 04/11/18 04/11/18 04/11/18 04/11/18 11:28 15:38 19:00 19:28 Temp 98.6 98.6 97.6 98.6 98.6 97.6 Pulse 111 84 86 Resp 18 18 18 B/P (MAP) 137/87 (104) 131/87 (102) 148/99 (115) Pulse Ox 95 96 96 96 O2 Delivery Room Air Room Air Room Air Room Air 04/11/18 04/11/18 04/11/18 04/12/18 20:00 21:22 23:00 03:00 Temp 97.9 97.9 97.9 97.9 Pulse 80 83 Resp 18 18 B/P (MAP) 142/87 (105) 152/94 (113) Pulse Ox 98 93 94 O2 Delivery Room Air Room Air Room Air Room Air 04/12/18 04/12/18 04/12/18 07:00 08:05 08:15 Temp 97.5 97.5 Pulse 77 Resp 20 B/P (MAP) 130/70 (90) Pulse Ox 97 O2 Delivery Room Air Room Air Room Air O2 Flow Rate 2.0 Intake and Output 04/11/18 04/11/18 04/12/18 15:00 23:00 07:00 Output Total 250 ml 600 ml Balance -250 ml -600 ml KJ SINGH MD Apr 12, 2018 10:52
[2018-04-12 11:00] VITALS: BP 150/94
[2018-04-12 15:00] VITALS: BP 137/97
--- NOTE | 2018-04-12 17:50 | PDOC ---
Infectious Disease Note Subjective Subjective Feeling better today Tolerating soft diet TPN No F/C/N/V/D/pain ROS ROS per HPI otherwise neg Vital Sign Vital Signs Vital Signs Date Time Temp Pulse Resp B/P (MAP) Pulse Ox O2 Delivery O2 Flow Rate FiO2 04/12/18 15:00 97.8 75 18 137/97 (110) 94 Room Air 97.8 04/12/18 08:15 2.0 Physical Exam PHYSICAL EXAM GENERAL: Sitting on the side of the bed, NAD LUNGS: CTAB CV: S1 S2 ABD: Obese, mildly distended, BS +, NT : Kramer EXT: No gross edema or cyanosis SKIN: LUE biceps area with mild rash RIJ clean Labs Lab Laboratory Tests Test 04/11/18 21:30 04/12/18 06:00 04/12/18 06:03 04/12/18 12:01 Glucose (Fingerstick) 137 mg/dL (70-99) 113 mg/dL (70-99) 135 mg/dL (70-99) White Blood Count 9.3 x10^3/uL (4.0-11.0) Red Blood Count 3.79 x10^6/uL (4.30-5.70) Hemoglobin 9.6 g/dL (13.0-17.5) Hematocrit 29.2 % (39.0-53.0) Mean Corpuscular Volume 77 fL (79-100) Mean Corpuscular Hemoglobin 25 pg (25-35) Mean Corpuscular Hemoglobin Concent 33 g/dL (31-37) Red Cell Distribution Width 17.5 % (11.5-14.5) Platelet Count 704 x10^3/uL (140-400) Neutrophils (%) (Auto) 60 % (31-73) Lymphocytes (%) (Auto) 24 % (24-48) Monocytes (%) (Auto) 10 % (0-9) Eosinophils (%) (Auto) 5 % (0-3) Basophils (%) (Auto) 2 % (0-3) Neutrophils # (Auto) 5.6 x10^3uL (1.8-7.7) Lymphocytes # (Auto) 2.2 x10^3/uL (1.0-4.8) Monocytes # (Auto) 0.9 x10^3/uL (0.0-1.1) Eosinophils # (Auto) 0.4 x10^3/uL (0.0-0.7) Basophils # (Auto) 0.2 x10^3/uL (0.0-0.2) Sodium Level 141 mmol/L (136-145) Potassium Level 4.2 mmol/L (3.5-5.1) Chloride Level 105 mmol/L (98-107) Carbon Dioxide Level 26 mmol/L (21-32) Anion Gap 10 (6-14) Blood Urea Nitrogen 19 mg/dL (8-26) Creatinine 0.8 mg/dL (0.7-1.3) Estimated GFR (Cockcroft-Gault) 106.5 Glucose Level 124 mg/dL (70-99) Calcium Level 9.5 mg/dL (8.5-10.1) Micro Microbiology 03/27/18 Blood Culture - Preliminary, Resulted NO GROWTH AFTER 5 DAY Objective Assessment Fever - better - likely from pancreatitis/occlusive thrombus vs other, cult nonrevealing, resolving. Nml procalcitonin 04/06. D/c'd Micafungin and linezolid ( 03/30- 04/06 ) with neg cults and a week of treatment Rash LUE - mild Leukocytosis resolved Pancreatitis Encephalopathy, likely medication related ZAIRA - improved Alcoholism with DTs Lung infiltrates likely pulm venous congestion Occlusive thrombus Rt Cephalic vein on TPN Plan Plan of Care Cont Merrem (03/31) Cont to monitor LUE rash GI following D/w mother Pt seen and examined. Chart reviewed in detail. Case discussed with MEASURING MACHINE OPERATOR. Agree with above plan ALESHA ELMORE APRN Apr 12, 2018 17:50 LEONIE WOOD MD Apr 12, 2018 18:40
[2018-04-12 19:00] VITALS: BP 128/42
[2018-04-12] MEDS: ALBUTEROL SULFATE 2.5 MG/3 ML NEBU. NEB PRN (19:21)
[2018-04-12] MEDS: ENOXAPARIN 40 MG/0.4 ML SYRINGE. SQ SCH (21:17)
[2018-04-12] MEDS ORDERED: AMINO ACIDS IV SCH ×12 (22:00)
[2018-04-12] MEDS ORDERED: DEXTROSE 70% IV SCH ×12 (22:00)
[2018-04-12] MEDS ORDERED: TOTAL PARENTERAL NUTRITION IV SCH ×12 (22:00)
[2018-04-12] MEDS ORDERED: [UNRECOGNIZED DRUG - OTHER] IV SCH ×12 (22:00)
[2018-04-12 23:00] VITALS: BP 165/103
[2018-04-12] MEDS: diazePAM 5 MG TABLET PO PRN (23:24)
[2018-04-13 03:00] VITALS: BP 167/103
[2018-04-13] MEDS: MEROPENEM 500 MG in IV NORMAL SALINE 50ML 50 ML IV SCH (05:07)
[2018-04-13 05:23] LABS: BASO # 0.3 x10^3/uL (0.0-0.2); BASO % 3 % (0-3); EOS # 0.5 x10^3/uL (0.0-0.7); EOS % 5 % (0-3); HEMATOCRIT 30.7 % (39.0-53.0); HEMOGLOBIN 10.2 g/dL (13.0-17.5); LYMPH # 2.5 x10^3/uL (1.0-4.8); LYMPH % 26 % (24-48); MEAN CORPUSCULAR HEMOGLOBIN 26 pg (25-35); MEAN CORPUSCULAR HGB CONC 33 g/dL (31-37); MEAN CORPUSCULAR VOLUME 77 fL (79-100); MONO % 10 % (0-9); NEUT # 5.6 x10^3uL (1.8-7.7); NEUT % 57 % (31-73); PLATELET COUNT 686 x10^3/uL (140-400); RED BLOOD COUNT 3.98 x10^6/uL (4.30-5.70); WHITE BLOOD COUNT 9.8 x10^3/uL (4.0-11.0)
[2018-04-13 05:46] LABS: CALCIUM 9.6 mg/dL (8.5-10.1); CREATININE 0.8 mg/dL (0.7-1.3); GFR 106.5; MAGNESIUM 1.8 mg/dL (1.8-2.4); PHOSPHORUS 5.1 mg/dL (2.6-4.7); POTASSIUM 4.1 mmol/L (3.5-5.1)
[2018-04-13] MEDS: HALOPERIDOL LACTATE 5 MG/ML VIAL. IV SCH ×3 (06:22→21:07)
[2018-04-13] MEDS: diphenhydrAMINE 50 MG/ML VIAL IVP SCH ×3 (06:23→21:07)
[2018-04-13 07:00] VITALS: BP 151/86
[2018-04-13] MEDS: PANTOPRAZOLE IV PUSH 40 MG VIAL. IVP SCH (07:54)
[2018-04-13] MEDS: BUDESONIDE 0.5 MG/2 ML NEBU. NEB SCH ×2 (08:05→19:46)
--- NOTE | 2018-04-13 09:09 | PDOC ---
Subjective: Subjective: Doing better. Tolerating PO w/o n/v or abd pain. Says stooled yesterday. Objective: Objective: Stools charted on 04/11. Vital Signs: Vital Signs Date Time Temp Pulse Resp B/P (MAP) Pulse Ox O2 Delivery O2 Flow Rate FiO2 04/13/18 08:08 97 Room Air 04/13/18 03:00 98.9 88 20 167/103 (124) 98.9 04/12/18 08:15 2.0 Labs: Laboratory Tests Test 04/12/18 12:01 04/13/18 05:10 04/13/18 07:50 Glucose (Fingerstick) 135 mg/dL 95 mg/dL White Blood Count 9.8 x10^3/uL Red Blood Count 3.98 x10^6/uL Hemoglobin 10.2 g/dL Hematocrit 30.7 % Mean Corpuscular Volume 77 fL Mean Corpuscular Hemoglobin 26 pg Mean Corpuscular Hemoglobin Concent 33 g/dL Red Cell Distribution Width 18.0 % Platelet Count 686 x10^3/uL Neutrophils (%) (Auto) 57 % Lymphocytes (%) (Auto) 26 % Monocytes (%) (Auto) 10 % Eosinophils (%) (Auto) 5 % Basophils (%) (Auto) 3 % Neutrophils # (Auto) 5.6 x10^3uL Lymphocytes # (Auto) 2.5 x10^3/uL Monocytes # (Auto) 1.0 x10^3/uL Eosinophils # (Auto) 0.5 x10^3/uL Basophils # (Auto) 0.3 x10^3/uL Sodium Level 138 mmol/L Potassium Level 4.1 mmol/L Chloride Level 101 mmol/L Carbon Dioxide Level 26 mmol/L Anion Gap 11 Blood Urea Nitrogen 18 mg/dL Creatinine 0.8 mg/dL Estimated GFR (Cockcroft-Gault) 106.5 Glucose Level 105 mg/dL Calcium Level 9.6 mg/dL Phosphorus Level 5.1 mg/dL Magnesium Level 1.8 mg/dL Triglycerides Level 207 mg/dL Imaging: KUB 04/10 Impression: Nonspecific bowel gas pattern. Speech Path Pt seen in f/u to dysphagia. IMPRESSIONS: Resolved oropharyngeal dysphagia and laryngeal dysfunction s/p 8d.intubation. Phonation quality now clear. Oropharyngeal swallow function appears WFLs across consistencies. Anticipate safe and efficient intake to meet nutritional needs and take po meds. RECOMMENDATIONS: GI following for pancreatitis. Will need diet per MD. General precautions. No restrictions from perspective of swallow function. No further MORTGAGE LOAN ORIGINATOR f/u indicated at this time. PE: GEN: NAD LUNGS: CTAB HEART: RRR ABD: NABS, S/ND/NT NEURO/PSYCH: appropriate, mild tremor A/P: Pancreatitis/alcohol withdrawal -- Improved - now tolerating PO w/o n/v or abd pain, also stooling. Supportive care, look to MESSI ALVARADO Apr 13, 2018 09:09
--- NOTE | 2018-04-13 09:49 | PDOC ---
PROGRESS NOTES Chief Complaint Chief Complaint Presented with Abd pain N/V and pancreatitis Today he feels better, passed swallow test, started diet, off TPN and decrease pain medication frequency Doing better. Tolerating PO w/o n/v or abd pain. Ate eggs this am Says stooled yesterday. Wants connor out and LIJ removed. Not OOB w/o assistance. Out of ICU now, still recovering. History of Present Illness History of Present Illness Acute Pancreatitis Alcohol abuse and withdrawal AMS metabolic encephalopathy with alcohol withdrawal Severe agitation with homocide ideation requiring sedation and intubation 03/31 Acute hypoxic resp failure h/o Asthma GERD HTN Fever - better - likely from pancreatitis/occlusive thrombus vs other, cult nonrevealing, resolving. Nml procalcitonin 04/06. ID D/c'd Micafungin and linezolid ( 03/30- 04/06 ) with neg cults and a week of treatment Morbid obesity Leukocytosis resolving Hepatic lesions on CT ZAIRA - improved Lung infiltrates likely pulm venous congestion Occlusive thrombus Rt Cephalic vein Rash LUE - mild on TPN Plan Plan of Care Cont Merrem (03/31) Ambulate today Remove Connor Remove RIJ, place PIV first Cont to monitor LUE rash GI following Cont po today after passing swallow test, weaned off TPN decrease frequency of pain medication. Change completely to oral Vitals Vitals Vital Signs Date Time Temp Pulse Resp B/P (MAP) Pulse Ox O2 Delivery O2 Flow Rate FiO2 04/13/18 08:08 97 Room Air 04/13/18 08:00 2.0 04/13/18 07:00 95.7 55 18 151/86 (107) 95.7 Physical Exam Physical Exam GENERAL: Laying in the bed, NAD LUNGS: CTAB CV: S1 S2 ABD: Obese, mildly distended, BS +, NT : Connor EXT: No gross edema or cyanosis SKIN: LUE biceps area with mild rash RIJ clean General: Alert, Cooperative, No acute distress Heart: Regular rate, Normal S1, Normal S2 Lungs: Clear, Other Abdomen: Soft, No masses Extremities: No cyanosis, No edema Skin: No rashes, No breakdown Labs LABS Laboratory Tests Test 04/12/18 12:01 04/13/18 05:10 04/13/18 07:50 Glucose (Fingerstick) 135 mg/dL (70-99) 95 mg/dL (70-99) White Blood Count 9.8 x10^3/uL (4.0-11.0) Red Blood Count 3.98 x10^6/uL (4.30-5.70) Hemoglobin 10.2 g/dL (13.0-17.5) Hematocrit 30.7 % (39.0-53.0) Mean Corpuscular Volume 77 fL (79-100) Mean Corpuscular Hemoglobin 26 pg (25-35) Mean Corpuscular Hemoglobin Concent 33 g/dL (31-37) Red Cell Distribution Width 18.0 % (11.5-14.5) Platelet Count 686 x10^3/uL (140-400) Neutrophils (%) (Auto) 57 % (31-73) Lymphocytes (%) (Auto) 26 % (24-48) Monocytes (%) (Auto) 10 % (0-9) Eosinophils (%) (Auto) 5 % (0-3) Basophils (%) (Auto) 3 % (0-3) Neutrophils # (Auto) 5.6 x10^3uL (1.8-7.7) Lymphocytes # (Auto) 2.5 x10^3/uL (1.0-4.8) Monocytes # (Auto) 1.0 x10^3/uL (0.0-1.1) Eosinophils # (Auto) 0.5 x10^3/uL (0.0-0.7) Basophils # (Auto) 0.3 x10^3/uL (0.0-0.2) Sodium Level 138 mmol/L (136-145) Potassium Level 4.1 mmol/L (3.5-5.1) Chloride Level 101 mmol/L (98-107) Carbon Dioxide Level 26 mmol/L (21-32) Anion Gap 11 (6-14) Blood Urea Nitrogen 18 mg/dL (8-26) Creatinine 0.8 mg/dL (0.7-1.3) Estimated GFR (Cockcroft-Gault) 106.5 Glucose Level 105 mg/dL (70-99) Calcium Level 9.6 mg/dL (8.5-10.1) Phosphorus Level 5.1 mg/dL (2.6-4.7) Magnesium Level 1.8 mg/dL (1.8-2.4) Triglycerides Level 207 mg/dL (0-150) Assessment and Plan Assessmemt and Plan Problems Medical Problems: (1) Alcoholic pancreatitis Status: Acute (2) ETOH abuse Status: Acute (2) Rash Status: Acute Comment Review of Relevant I have reviewed the following items wali (where applicable) has been applied. Labs Laboratory Tests Test 04/11/18 10:53 04/11/18 16:19 04/11/18 21:30 04/12/18 06:00 Glucose (Fingerstick) 140 mg/dL (70-99) 134 mg/dL (70-99) 137 mg/dL (70-99) White Blood Count 9.3 x10^3/uL (4.0-11.0) Red Blood Count 3.79 x10^6/uL (4.30-5.70) Hemoglobin 9.6 g/dL (13.0-17.5) Hematocrit 29.2 % (39.0-53.0) Mean Corpuscular Volume 77 fL (79-100) Mean Corpuscular Hemoglobin 25 pg (25-35) Mean Corpuscular Hemoglobin Concent 33 g/dL (31-37) Red Cell Distribution Width 17.5 % (11.5-14.5) Platelet Count 704 x10^3/uL (140-400) Neutrophils (%) (Auto) 60 % (31-73) Lymphocytes (%) (Auto) 24 % (24-48) Monocytes (%) (Auto) 10 % (0-9) Eosinophils (%) (Auto) 5 % (0-3) Basophils (%) (Auto) 2 % (0-3) Neutrophils # (Auto) 5.6 x10^3uL (1.8-7.7) Lymphocytes # (Auto) 2.2 x10^3/uL (1.0-4.8) Monocytes # (Auto) 0.9 x10^3/uL (0.0-1.1) Eosinophils # (Auto) 0.4 x10^3/uL (0.0-0.7) Basophils # (Auto) 0.2 x10^3/uL (0.0-0.2) Sodium Level 141 mmol/L (136-145) Potassium Level 4.2 mmol/L (3.5-5.1) Chloride Level 105 mmol/L (98-107) Carbon Dioxide Level 26 mmol/L (21-32) Anion Gap 10 (6-14) Blood Urea Nitrogen 19 mg/dL (8-26) Creatinine 0.8 mg/dL (0.7-1.3) Estimated GFR (Cockcroft-Gault) 106.5 Glucose Level 124 mg/dL (70-99) Calcium Level 9.5 mg/dL (8.5-10.1) Test 04/12/18 06:03 04/12/18 12:01 04/13/18 05:10 04/13/18 07:50 Glucose (Fingerstick) 113 mg/dL (70-99) 135 mg/dL (70-99) 95 mg/dL (70-99) White Blood Count 9.8 x10^3/uL (4.0-11.0) Red Blood Count 3.98 x10^6/uL (4.30-5.70) Hemoglobin 10.2 g/dL (13.0-17.5) Hematocrit 30.7 % (39.0-53.0) Mean Corpuscular Volume 77 fL (79-100) Mean Corpuscular Hemoglobin 26 pg (25-35) Mean Corpuscular Hemoglobin Concent 33 g/dL (31-37) Red Cell Distribution Width 18.0 % (11.5-14.5) Platelet Count 686 x10^3/uL (140-400) Neutrophils (%) (Auto) 57 % (31-73) Lymphocytes (%) (Auto) 26 % (24-48) Monocytes (%) (Auto) 10 % (0-9) Eosinophils (%) (Auto) 5 % (0-3) Basophils (%) (Auto) 3 % (0-3) Neutrophils # (Auto) 5.6 x10^3uL (1.8-7.7) Lymphocytes # (Auto) 2.5 x10^3/uL (1.0-4.8) Monocytes # (Auto) 1.0 x10^3/uL (0.0-1.1) Eosinophils # (Auto) 0.5 x10^3/uL (0.0-0.7) Basophils # (Auto) 0.3 x10^3/uL (0.0-0.2) Sodium Level 138 mmol/L (136-145) Potassium Level 4.1 mmol/L (3.5-5.1) Chloride Level 101 mmol/L (98-107) Carbon Dioxide Level 26 mmol/L (21-32) Anion Gap 11 (6-14) Blood Urea Nitrogen 18 mg/dL (8-26) Creatinine 0.8 mg/dL (0.7-1.3) Estimated GFR (Cockcroft-Gault) 106.5 Glucose Level 105 mg/dL (70-99) Calcium Level 9.6 mg/dL (8.5-10.1) Phosphorus Level 5.1 mg/dL (2.6-4.7) Magnesium Level 1.8 mg/dL (1.8-2.4) Triglycerides Level 207 mg/dL (0-150) Laboratory Tests Test 04/12/18 12:01 04/13/18 05:10 04/13/18 07:50 Glucose (Fingerstick) 135 mg/dL (70-99) 95 mg/dL (70-99) White Blood Count 9.8 x10^3/uL (4.0-11.0) Red Blood Count 3.98 x10^6/uL (4.30-5.70) Hemoglobin 10.2 g/dL (13.0-17.5) Hematocrit 30.7 % (39.0-53.0) Mean Corpuscular Volume 77 fL (79-100) Mean Corpuscular Hemoglobin 26 pg (25-35) Mean Corpuscular Hemoglobin Concent 33 g/dL (31-37) Red Cell Distribution Width 18.0 % (11.5-14.5) Platelet Count 686 x10^3/uL (140-400) Neutrophils (%) (Auto) 57 % (31-73) Lymphocytes (%) (Auto) 26 % (24-48) Monocytes (%) (Auto) 10 % (0-9) Eosinophils (%) (Auto) 5 % (0-3) Basophils (%) (Auto) 3 % (0-3) Neutrophils # (Auto) 5.6 x10^3uL (1.8-7.7) Lymphocytes # (Auto) 2.5 x10^3/uL (1.0-4.8) Monocytes # (Auto) 1.0 x10^3/uL (0.0-1.1) Eosinophils # (Auto) 0.5 x10^3/uL (0.0-0.7) Basophils # (Auto) 0.3 x10^3/uL (0.0-0.2) Sodium Level 138 mmol/L (136-145) Potassium Level 4.1 mmol/L (3.5-5.1) Chloride Level 101 mmol/L (98-107) Carbon Dioxide Level 26 mmol/L (21-32) Anion Gap 11 (6-14) Blood Urea Nitrogen 18 mg/dL (8-26) Creatinine 0.8 mg/dL (0.7-1.3) Estimated GFR (Cockcroft-Gault) 106.5 Glucose Level 105 mg/dL (70-99) Calcium Level 9.6 mg/dL (8.5-10.1) Phosphorus Level 5.1 mg/dL (2.6-4.7) Magnesium Level 1.8 mg/dL (1.8-2.4) Triglycerides Level 207 mg/dL (0-150) Microbiology 03/31/18 Blood Culture - Final, Complete NO GROWTH AFTER 5 DAYS Medications Current Medications Multivitamins 10 ml/Thiamine HCl 100 mg/Folic Acid 1 mg/Sodium Chloride 1,011.2 ml @ 1,000.088 mls/hr 1X ONCE IV Last administered on 03/26/18at 15:07; Start 03/26/18 at 14:00; Stop 03/26/18 at 15:00; Status DC Ondansetron HCl (Zofran) 4 mg 1X ONCE IV Last administered on 03/26/18at 14:13 ; Start 03/26/18 at 14:00; Stop 03/26/18 at 14:10; Status DC Pantoprazole Sodium (PROTONIX VIAL for IV PUSH) 40 mg 1X ONCE IVP Last administered on 03/26/18at 14:13; Start 03/26/18 at 14:00; Stop 03/26/18 at 14:10 ; Status DC Pantoprazole Sodium (PROTONIX VIAL for IV PUSH) 40 mg STK-MED ONCE IVP ; Start 03/26/18 at 14:10; Stop 03/26/18 at 14:11; Status DC Ondansetron HCl (Zofran) 4 mg STK-MED ONCE .ROUTE ; Start 03/26/18 at 14:10; Stop 03/26/18 at 14:11; Status DC Iohexol (Omnipaque 300 Mg/ml) 75 ml 1X ONCE IV Last administered on 03/26/18at 14:38; Start 03/26/18 at 14:45; Stop 03/26/18 at 14:46; Status DC Iohexol (Omnipaque 300 Mg/ml) 100 ml STK-MED ONCE .ROUTE ; Start 03/26/18 at 14: 38; Stop 03/26/18 at 14:39; Status DC Info (CONTRAST GIVEN -- Rx MONITORING) 1 each PRN DAILY PRN MC SEE COMMENTS; Start 03/26/18 at 14:45; Stop 03/28/18 at 14:44; Status DC Ondansetron HCl (Zofran) 4 mg 1X ONCE IV Last administered on 03/26/18at 15:08 ; Start 03/26/18 at 15:00; Stop 03/26/18 at 15:01; Status DC Morphine Sulfate (Morphine Sulfate) 5 mg 1X ONCE IV Last administered on at 15:09; Start 03/26/18 at 15:00; Stop 03/26/18 at 15:01; Status DC Ondansetron HCl (Zofran) 4 mg PRN Q8HRS PRN IV NAUSEA/VOMITING Last administered on 03/27/18at 12:22; Start 03/26/18 at 15:15; Stop 03/27/18 at 15:14 ; Status DC Morphine Sulfate (Morphine Sulfate) 4 mg PRN Q2HR PRN IV PAIN Last administered on 03/27/18at 15:12; Start 03/26/18 at 15:15; Stop 03/27/18 at 15:14 ; Status DC Multivitamins 10 ml/Thiamine HCl 100 mg/Folic Acid 1 mg/Sodium Chloride 1,011.2 ml @ 100 mls/ hr DAILY IV Last administered on 03/30/18at 07:52; Start at 16:00; Stop 03/30/18 at 19:07; Status DC Lorazepam (Ativan) 2 mg PRN Q1HR PRN IV For CIWA 8-14 Last administered on 03/26at 15:59; Start 03/26/18 at 15:15; Stop 03/26/18 at 16:43; Status DC Sodium Chloride 1,000 ml @ 125 mls/hr 1X ONCE IV Last administered on at 02:10; Start 03/26/18 at 15:15; Stop 03/26/18 at 23:14; Status DC Pantoprazole Sodium (PROTONIX VIAL for IV PUSH) 40 mg DAILYAC IVP Last administered on 03/30/18at 07:52; Start 03/27/18 at 07:30; Stop 03/30/18 at 10:52 ; Status DC Multivitamins 10 ml/Thiamine HCl 100 mg/Folic Acid 1 mg/Sodium Chloride 1,011.2 ml @ 100 mls/ hr DAILY IV ; Start 03/27/18 at 09:00; Stop 03/31/18 at 19:07; Status UNV Multivitamins (Thera M Plus) 1 tab DAILY PO ; Start 03/31/18 at 09:00; Stop at 14:18; Status DC Folic Acid (Folic Acid) 1 mg DAILY PO ; Start 03/31/18 at 09:00; Stop 03/31/18 at 14:18; Status DC Thiamine HCl 100 mg/Dextrose 51 ml @ 100 mls/hr DAILY IV ; Start 03/27/18 at 09 :00; Stop 03/31/18 at 09:31; Status UNV Lorazepam (Ativan) 2 mg Q6H PO Last administered on 03/26/18at 22:19; Start at 17:00; Stop 03/27/18 at 01:47; Status DC Lorazepam (Ativan) 4 mg PRN Q1HR PRN PO For CIWA 8-14; Start 03/26/18 at 16:45 Lorazepam (Ativan) 2 mg PRN Q1HR PRN IV For CIWA 8-14 Last administered on 04/10at 07:51; Start 03/26/18 at 16:45 Lorazepam (Ativan) 4 mg PRN Q1HR PRN IV For CIWA 15 or greater Last administered on 04/09/18at 14:51; Start 03/26/18 at 16:45 Haloperidol Lactate (Haldol Inj) 5 mg PRN Q4HRS PRN IVP Hallucinatns,Confusn, Delirium Last administered on 04/06/18at 11:21; Start 03/26/18 at 16:45 Diphenhydramine HCl (Benadryl) 25 mg PRN Q15MIN PRN IVP EPS symptoms 2'Haldol admin Last administered on 03/29/18at 08:25; Start 03/26/18 at 16:45 Clonidine HCl (Catapres) 0.1 mg PRN Q1HR PRN PO SBP > 180 or DBP > 100, MRX3 Last administered on 03/27/18at 05:28; Start 03/26/18 at 16:45 Lorazepam (Ativan) 2 mg PRN Q15MIN PRN IV ; Start 03/26/18 at 16:45; Status UNV Lorazepam (Ativan) 4 mg PRN Q15MIN PRN IV ; Start 03/26/18 at 16:45; Status UNV Pantoprazole Sodium (PROTONIX VIAL for IV PUSH) 40 mg DAILYAC IVP ; Start at 07:30; Status UNV Enoxaparin Sodium (Lovenox 40mg Syringe) 40 mg Q24H SQ Last administered on at 21:17; Start 03/26/18 at 21:00 Albuterol Sulfate (Ventolin Neb Soln) 2.5 mg PRN Q2HRS PRN NEB SHORTNESS OF BREATH Last administered on 03/29/18at 04:12; Start 03/26/18 at 17:00; Stop 03/30 at 13:29; Status DC Non-Formulary Medication (Albuterol Sulfate (Proair Hfa Inhaler)) 1 puff PRN Q4HRS PRN INH SHORTNESS OF BREATH; Start 03/26/18 at 16:45; Status UNV Non-Formulary Medication (Budesonide/ Formoterol Fumarate (Symbicort 160-4.5 Mcg Inhaler)) 2 puff BID IH ; Start 03/26/18 at 21:00; Status UNV Theophylline (Theodur) 300 mg BID PO Last administered on 03/30/18at 08:45; Start 03/26/18 at 21:00; Stop 04/02/18 at 08:50; Status DC Budesonide (Pulmicort) 0.5 mg RTBID NEB Last administered on 04/13/18at 08:05; Start 03/26/18 at 20:00 Albuterol Sulfate (Ventolin Neb Soln) 2.5 mg RTQID NEB Last administered on at 12:28; Start 03/26/18 at 20:00; Stop 03/30/18 at 13:24; Status DC Sodium Chloride 1,000 ml @ 1,000 mls/hr 1X ONCE IV Last administered on at 12:23; Start 03/27/18 at 12:15; Stop 03/27/18 at 13:14; Status DC Sodium Chloride 1,000 ml @ 1,000 mls/hr 1X ONCE IV Last administered on at 13:05; Start 03/27/18 at 12:15; Stop 03/27/18 at 13:14; Status DC Sodium Chloride 1,000 ml @ 1,000 mls/hr 1X ONCE IV Last administered on at 14:11; Start 03/27/18 at 12:15; Stop 03/27/18 at 13:14; Status DC Sodium Chloride 136 ml @ 500 mls/hr 1X ONCE IV Last administered on at 12:15; Start 03/27/18 at 12:15; Stop 03/27/18 at 12:31; Status DC Piperacillin Sod/ Tazobactam Sod 3.375 gm/Sodium Chloride 50 ml @ 100 mls/hr Q6HRS IV Last administered on 03/31/18at 12:16; Start 03/27/18 at 16:00; Stop at 13:38; Status DC Morphine Sulfate (Morphine Sulfate) 2 mg PRN Q2HR PRN IV PAIN Last administered on 03/31/18at 10:42; Start 03/27/18 at 16:45; Stop 04/12/18 at 12:37 ; Status DC Ondansetron HCl (Zofran) 4 mg PRN Q6HRS PRN IV NAUSEA/VOMITING 1ST CHOICE Last administered on 04/12/18at 06:33; Start 03/27/18 at 16:45 Sodium Chloride 1,000 ml @ 125 mls/hr Q8H IV Last administered on 03/29/18at 10 :14; Start 03/27/18 at 17:45; Stop 03/29/18 at 14:21; Status DC Diazepam (Valium) 5 mg PRN Q2HR PRN PO Agitation/Alcohol withdraw Last administered on 04/12/18at 23:24; Start 03/29/18 at 01:45 Belladonna Alkaloids/Opium (B & O) 1 supp PRN Q12HR PRN IL BLADDER SPASM Last administered on 03/29/18at 02:58; Start 03/29/18 at 01:45 Dexmedetomidine HCl 200 mcg/ Sodium Chloride 50 ml @ 0 mls/hr CONT PRN IV PER PROTOCOL Last administered on 04/09/18at 07:41; Start 03/29/18 at 08:30; Stop at 07:53; Status DC Sodium Chloride 500 ml @ 500 mls/hr 1X PRN PRN IV SEE COMMENTS; Start at 08:30 Atropine Sulfate (ATROPINE 0.5mg SYRINGE) 0.5 mg PRN Q5MIN PRN IV SEE COMMENTS ; Start 03/29/18 at 08:30 Potassium Chloride (Klor-Con) 40 meq 1X ONCE PO Last administered on at 14:25; Start 03/29/18 at 13:15; Stop 03/29/18 at 13:16; Status DC Potassium Chloride/Sodium Chloride 1,000 ml @ 75 mls/hr [id number] IV Last administered on 04/01/18at 08:47; Start 03/29/18 at 14:15; Stop 04/01/18 at 13:39 ; Status DC Pantoprazole Sodium (Protonix) 40 mg DAILYAC PO ; Start 03/31/18 at 07:30; Stop 03/31/18 at 11:32; Status DC Albuterol Sulfate (Ventolin Neb Soln) 2.5 mg PRN Q4HRS PRN NEB WHEEZING Last administered on 04/12/18at 19:21; Start 03/30/18 at 13:30 Micafungin Sodium 100 mg/Dextrose 100 ml @ 100 mls/hr Q24H IV Last administered on 04/05/18at 15:07; Start 03/30/18 at 15:00; Stop 04/06/18 at 08:05 ; Status DC Linezolid/Dextrose 300 ml @ 300 mls/hr Q12HR IV Last administered on at 21:33; Start 03/30/18 at 14:00; Stop 04/06/18 at 08:05; Status DC Olanzapine (ZyPREXA IM) 10 mg PRN Q8HRS PRN IM ANXIETY / AGITATION; Start 03/30 at 14:00; Stop 04/07/18 at 14:49; Status DC Labetalol HCl (Normodyne Iv Push) 20 mg PRN Q2HR PRN IVP GIVE FOR SBP > 180 DBP >110 Last administered on 04/10/18at 02:51; Start 03/30/18 at 17:15 Acetaminophen (Tylenol Supp) 650 mg PRN Q6HRS PRN IL MILD PAIN / TEMP Last administered on 03/31/18at 15:02; Start 03/30/18 at 17:15 Iohexol (Omnipaque 300 Mg/ml) 75 ml 1X ONCE IV ; Start 03/31/18 at 09:15; Stop 03/31/18 at 09:16; Status DC Info (CONTRAST GIVEN -- Rx MONITORING) 1 each PRN DAILY PRN MC SEE COMMENTS; Start 03/31/18 at 09:15; Stop 04/02/18 at 09:14; Status DC Iohexol (Omnipaque 300 Mg/ml) 75 ml 1X ONCE IV Last administered on 03/31/18at 10:29; Start 03/31/18 at 10:00; Stop 03/31/18 at 10:04; Status DC Fentanyl Citrate 30 ml @ 0 mls/hr CONT PRN IV PER PROTOCOL Last administered on 04/08/18at 13:59; Start 03/31/18 at 11:00; Stop 04/11/18 at 08:11; Status DC Lorazepam (Ativan) 2 mg STK-MED ONCE .ROUTE ; Start 03/31/18 at 11:02; Stop at 11:03; Status DC Vecuronium Lamar (Norcuron Bolus) 10 mg STK-MED ONCE IV ; Start 03/31/18 at 11 :05; Stop 03/31/18 at 11:06; Status DC Propofol 100 ml @ As Directed STK-MED ONCE IV ; Start 03/31/18 at 11:08; Stop 03/31/18 at 11:09; Status DC Vecuronium Lamar (Norcuron Bolus) 10 mg STK-MED ONCE IV ; Start 03/31/18 at 11 :08; Stop 03/31/18 at 11:10; Status DC Succinylcholine Chloride (Anectine) 200 mg 1X ONCE IV ; Start 03/31/18 at 11:30 ; Stop 03/31/18 at 11:31; Status DC Propofol 100 ml @ 0 mls/hr CONT PRN IV PER PROTOCOL Last administered on at 15:13; Start 03/31/18 at 11:30; Stop 04/11/18 at 07:52; Status DC Chlorhexidine Gluconate (Peridex) 15 ml BID MM Last administered on 04/08/18at 07:56; Start 03/31/18 at 21:00; Stop 04/10/18 at 12:08; Status DC Pantoprazole Sodium (PROTONIX VIAL for IV PUSH) 40 mg DAILYAC IVP Last administered on 04/13/18at 07:54; Start 04/01/18 at 07:30 Vecuronium Lamar (Norcuron Bolus) 10 mg 1X ONCE IV Last administered on 03/31at 11:58; Start 03/31/18 at 12:00; Stop 03/31/18 at 12:01; Status DC Meropenem 500 mg/ Sodium Chloride 50 ml @ 100 mls/hr Q6HRS IV Last administered on 04/13/18at 05:07; Start 03/31/18 at 18:00 Info (Tpn Per Pharmacy) 1 each PRN DAILY PRN MC SEE COMMENTS Last administered on 04/12/18at 09:59; Start 03/31/18 at 14:00; Stop 04/12/18 at 12:31; Status DC Sodium Chloride 45 meq/Sodium Acetate 45 meq/ Potassium Chloride 50 meq/ Potassium Phosphate 13.6 mmol/Magnesium Sulfate 10 meq/ Calcium Gluconate 10 meq / Multivitamins 10 ml/Chromium/ Copper/Manganese/ Seleni/Zn 1 ml/ Folic Acid 1 mg/ Thiamine HCl 100 mg/Total Donna... 1,512 ml @ 63 mls/hr TPN CONT IV Last administered on 03/31/18at 21:41; Start 03/31/18 at 22:00; Stop 04/01/18 at 21:59; Status DC Octreotide Acetate (SandoSTATIN) 100 mcg Q8HRS SQ Last administered on at 06:14; Start 03/31/18 at 15:30; Stop 04/05/18 at 11:58; Status DC Vecuronium Lamar (Norcuron Bolus) 10 mg STK-MED ONCE IV ; Start 03/31/18 at 11 :10; Stop 04/01/18 at 09:10; Status DC Lorazepam (Ativan) 2 mg STK-MED ONCE .ROUTE ; Start 03/31/18 at 11:10; Stop at 09:10; Status DC Sodium Chloride 45 meq/Sodium Acetate 45 meq/ Potassium Chloride 70 meq/ Potassium Phosphate 13.6 mmol/Magnesium Sulfate 10 meq/ Calcium Gluconate 10 meq / Multivitamins 10 ml/Chromium/ Copper/Manganese/ Seleni/Zn 1 ml/ Folic Acid 1 mg/ Thiamine HCl 100 mg/Total Donna... 1,512 ml @ 63 mls/hr TPN CONT IV Last administered on 04/01/18at 22:35; Start 04/01/18 at 22:00; Stop 04/02/18 at 21:59; Status DC Furosemide (Lasix) 20 mg 1X ONCE IVP Last administered on 04/02/18at 09:12; Start 04/02/18 at 09:30; Stop 04/02/18 at 09:31; Status DC Sodium Chloride 45 meq/Sodium Acetate 45 meq/ Potassium Chloride 70 meq/ Potassium Phosphate 13.6 mmol/Magnesium Sulfate 10 meq/ Calcium Gluconate 10 meq / Multivitamins 10 ml/Chromium/ Copper/Manganese/ Seleni/Zn 1 ml/ Folic Acid 1 mg/ Thiamine HCl 100 mg/Total Donna... 1,512 ml @ 63 mls/hr TPN CONT IV Last administered on 04/02/18at 22:18; Start 04/02/18 at 22:00; Stop 04/03/18 at 21:59; Status DC Multi-Ingred Cream/Lotion/Oil/ Oint (Artificial Tears Eye Ointment) 1 rosemary Q12HR OU Last administered on 04/08/18at 07:56; Start 04/02/18 at 14:00; Stop at 08:12; Status DC Sodium Chloride 45 meq/Sodium Acetate 45 meq/ Potassium Chloride 70 meq/ Potassium Phosphate 13.6 mmol/Magnesium Sulfate 10 meq/ Calcium Gluconate 10 meq / Multivitamins 10 ml/Chromium/ Copper/Manganese/ Seleni/Zn 1 ml/ Folic Acid 1 mg/ Thiamine HCl 100 mg/Total Donna... 1,512 ml @ 63 mls/hr TPN CONT IV Last administered on 04/03/18at 21:11; Start 04/03/18 at 22:00; Stop 04/04/18 at 21:59; Status DC Sodium Chloride 60 meq/Sodium Acetate 50 meq/ Potassium Chloride 70 meq/ Potassium Phosphate 13.6 mmol/Magnesium Sulfate 10 meq/ Calcium Gluconate 10 meq / Multivitamins 10 ml/Chromium/ Copper/Manganese/ Seleni/Zn 1 ml/ Folic Acid 1 mg/ Thiamine HCl 100 mg/Total Donna... 1,512 ml @ 63 mls/hr TPN CONT IV Last administered on 04/04/18at 21:40; Start 04/04/18 at 22:00; Stop 04/05/18 at 21:59; Status DC Sodium Chloride 50 meq/Sodium Acetate 50 meq/ Potassium Chloride 70 meq/ Potassium Phosphate 13.6 mmol/Magnesium Sulfate 10 meq/ Calcium Gluconate 10 meq / Multivitamins 10 ml/Chromium/ Copper/Manganese/ Seleni/Zn 1 ml/ Folic Acid 1 mg/ Thiamine HCl 100 mg/Total Donna... 1,512 ml @ 63 mls/hr TPN CONT IV Last administered on 04/05/18at 21:34; Start 04/05/18 at 22:00; Stop 04/06/18 at 21:59; Status DC Sodium Chloride 50 meq/Sodium Acetate 50 meq/ Potassium Chloride 70 meq/ Potassium Phosphate 13.6 mmol/Magnesium Sulfate 10 meq/ Calcium Gluconate 10 meq / Multivitamins 10 ml/Chromium/ Copper/Manganese/ Seleni/Zn 1 ml/ Folic Acid 1 mg/ Thiamine HCl 100 mg/Total Donna... 1,512 ml @ 63 mls/hr TPN CONT IV Last administered on 04/06/18at 21:24; Start 04/06/18 at 22:00; Stop 04/07/18 at 21:59; Status DC Iohexol (Omnipaque 300 Mg/ml) 75 ml 1X ONCE IV Last administered on 04/06/18at 11:45; Start 04/06/18 at 11:45; Stop 04/06/18 at 11:46; Status DC Info (CONTRAST GIVEN -- Rx MONITORING) 1 each PRN DAILY PRN MC SEE COMMENTS; Start 04/06/18 at 11:45; Stop 04/08/18 at 11:44; Status DC Sodium Chloride 50 meq/Sodium Acetate 50 meq/ Potassium Chloride 65 meq/ Potassium Phosphate 13.6 mmol/Magnesium Sulfate 10 meq/ Calcium Gluconate 10 meq / Multivitamins 10 ml/Chromium/ Copper/Manganese/ Seleni/Zn 1 ml/ Folic Acid 1 mg/ Thiamine HCl 100 mg/Total Donna... 1,512 ml @ 63 mls/hr TPN CONT IV Last administered on 04/07/18at 21:55; Start 04/07/18 at 22:00; Stop 04/08/18 at 21:59; Status DC Olanzapine (ZyPREXA IM) 10 mg Q8HRS PRN IM ANXIETY / AGITATION; Start 04/07/18 at 15:00; Stop 04/07/18 at 15:00; Status DC Olanzapine (ZyPREXA IM) 10 mg Q8HRS PRN IM AGITATION; Start 04/07/18 at 15:00; Stop 04/07/18 at 15:23; Status DC Olanzapine (ZyPREXA IM) 10 mg Q8HRS IM Last administered on 04/08/18at 05:50; Start 04/07/18 at 15:00; Stop 04/08/18 at 12:44; Status DC Sodium Chloride 50 meq/Sodium Acetate 50 meq/ Potassium Chloride 65 meq/ Potassium Phosphate 13.6 mmol/Magnesium Sulfate 10 meq/ Multivitamins 10 ml/ Chromium/ Copper/Manganese/ Seleni/Zn 1 ml/ Folic Acid 1 mg/ Thiamine HCl 100 mg /Total Parenteral Nutrition/Amino Acids/Dextrose 1,512 ml @ 63 mls/hr TPN CONT IV Last administered on 04/08/18at 21:56; Start 04/08/18 at 22:00; Stop at 21:59; Status DC Haloperidol Lactate (Haldol Inj) 10 mg Q8HRS IV Last administered on 04/13/18at 06:22; Start 04/08/18 at 14:00 Diphenhydramine HCl (Benadryl) 50 mg Q8HRS IVP Last administered on 04/13/18at 06:23; Start 04/08/18 at 14:00 Sodium Chloride 50 meq/Sodium Acetate 50 meq/ Potassium Chloride 65 meq/ Potassium Phosphate 13.6 mmol/Magnesium Sulfate 10 meq/ Multivitamins 10 ml/ Chromium/ Copper/Manganese/ Seleni/Zn 1 ml/ Folic Acid 1 mg/ Thiamine HCl 100 mg /Total Parenteral Nutrition/Amino Acids/Dextro... 1,492 ml @ 62.167 mls/ hr TPN CONT IV Last administered on 04/09/18at 21:46; Start 04/09/18 at 22:00; Stop 04/10/18 at 21:59; Status DC Scopolamine (Transderm-Scop) 1 patch Q3DAYS TD Last administered on 04/10/18at 01:00; Start 04/10/18 at 01:00; Stop 04/12/18 at 07:25; Status DC Prochlorperazine Edisylate (Compazine) 10 mg PRN Q6HRS PRN IV NAUSEA/VOMITING 2ND CHOICE Last administered on 04/10/18at 05:45; Start 04/10/18 at 05:30 Sodium Chloride 50 meq/Sodium Acetate 50 meq/ Potassium Chloride 65 meq/ Potassium Phosphate 13.6 mmol/Magnesium Sulfate 10 meq/ Multivitamins 10 ml/ Chromium/ Copper/Manganese/ Seleni/Zn 1 ml/ Folic Acid 1 mg/ Thiamine HCl 100 mg /Total Parenteral Nutrition/Amino Acids/Dextro... 1,492 ml @ 62.167 mls/ hr TPN CONT IV Last administered on 04/10/18at 21:37; Start 04/10/18 at 22:00; Stop 04/11/18 at 21:59; Status DC Sodium Chloride 50 meq/Sodium Acetate 50 meq/ Potassium Chloride 65 meq/ Potassium Phosphate 13.6 mmol/Magnesium Sulfate 10 meq/ Multivitamins 10 ml/ Chromium/ Copper/Manganese/ Seleni/Zn 1 ml/ Folic Acid 1 mg/ Thiamine HCl 100 mg /Total Parenteral Nutrition/Amino Acids/Dextro... 1,512 ml @ 63 mls/hr TPN CONT IV Last administered on 04/11/18at 22:10; Start 04/11/18 at 22:00; Stop at 21:59; Status DC Sodium Chloride 50 meq/Sodium Acetate 50 meq/ Potassium Chloride 65 meq/ Potassium Phosphate 13.6 mmol/Magnesium Sulfate 10 meq/ Multivitamins 10 ml/ Chromium/ Copper/Manganese/ Seleni/Zn 1 ml/ Folic Acid 1 mg/ Thiamine HCl 100 mg /Total Parenteral Nutrition/Amino Acids/Dextro... 1,512 ml @ 63 mls/hr TPN CONT IV ; Start 04/12/18 at 22:00; Stop 04/12/18 at 22:00; Status DC Morphine Sulfate (Morphine Sulfate) 2 mg PRN Q4HRS PRN IV PAIN; Start 04/12/18 at 12:45 Active Scripts Active Diazepam 5 Mg Tablet 5 Mg PO DAILY Reported Proair Hfa Inhaler (Albuterol Sulfate) 8.5 Gm Hfa.aer.ad 1 Puff INH PRN Q4HRS PRN Duoneb 0.5-3(2.5) Mg/3 Ml (Albuterol/Ipratropium) 3 Ml Ampul.neb 3 Ml NEB Q2HR PRN Symbicort 160-4.5 Mcg Inhaler (Budesonide/Formoterol Fumarate) 10.2 Gm Hfa.aer.ad 2 Puff IH BID Prilosec Otc (Omeprazole Magnesium) 20 Mg Tablet.dr 1 Tab PO DAILY Theophylline (Theophylline Anhydrous) 400 Mg Tablet.er 300 Mg PO BID Vitals/I & O Vital Sign - Last 24 Hours 04/12/18 04/12/18 04/12/18 04/12/18 11:00 15:00 19:00 19:23 Temp 97.9 97.8 97.9 97.9 97.8 97.9 Pulse 80 75 71 Resp 20 18 20 B/P (MAP) 150/94 (112) 137/97 (110) 128/42 (70) Pulse Ox 95 94 100 97 O2 Delivery Room Air Room Air Room Air Room Air 04/12/18 04/12/18 04/12/18 04/13/18 19:23 20:00 23:00 03:00 Temp 99.0 98.9 99.0 98.9 Pulse 74 88 Resp 20 20 B/P (MAP) 165/103 (123) 167/103 (124) Pulse Ox 97 97 96 O2 Delivery Room Air Room Air Room Air Room Air 04/13/18 04/13/18 04/13/18 04/13/18 07:00 07:00 08:00 08:08 Temp 95.7 95.7 95.7 95.7 Pulse 55 Resp 18 B/P (MAP) 151/86 (107) Pulse Ox 94 97 O2 Delivery Room Air Room Air Room Air O2 Flow Rate 2.0 Intake and Output 04/12/18 04/12/18 04/13/18 15:00 23:00 07:00 Intake Total 0 ml Balance 0 ml RYAN HERNÁNDEZ MD Apr 13, 2018 09:49
[2018-04-13 11:00] VITALS: BP 146/82
--- NOTE | 2018-04-13 11:35 | PDOC ---
Infectious Disease Note Subjective Subjective Feeling better today Tolerating soft diet TPN No F/C/N/V/D/pain Vital Sign Vital Signs Vital Signs Date Time Temp Pulse Resp B/P (MAP) Pulse Ox O2 Delivery O2 Flow Rate FiO2 04/13/18 08:08 97 Room Air 04/13/18 08:00 2.0 04/13/18 07:00 95.7 55 18 151/86 (107) 95.7 Physical Exam PHYSICAL EXAM GENERAL: Laying in the bed, NAD LUNGS: CTAB CV: S1 S2 ABD: Obese, mildly distended, BS +, NT : Kramer EXT: No gross edema or cyanosis SKIN: LUE biceps area with mild rash RIJ clean Labs Lab Laboratory Tests Test 04/12/18 12:01 04/13/18 05:10 04/13/18 07:50 Glucose (Fingerstick) 135 mg/dL (70-99) 95 mg/dL (70-99) White Blood Count 9.8 x10^3/uL (4.0-11.0) Red Blood Count 3.98 x10^6/uL (4.30-5.70) Hemoglobin 10.2 g/dL (13.0-17.5) Hematocrit 30.7 % (39.0-53.0) Mean Corpuscular Volume 77 fL (79-100) Mean Corpuscular Hemoglobin 26 pg (25-35) Mean Corpuscular Hemoglobin Concent 33 g/dL (31-37) Red Cell Distribution Width 18.0 % (11.5-14.5) Platelet Count 686 x10^3/uL (140-400) Neutrophils (%) (Auto) 57 % (31-73) Lymphocytes (%) (Auto) 26 % (24-48) Monocytes (%) (Auto) 10 % (0-9) Eosinophils (%) (Auto) 5 % (0-3) Basophils (%) (Auto) 3 % (0-3) Neutrophils # (Auto) 5.6 x10^3uL (1.8-7.7) Lymphocytes # (Auto) 2.5 x10^3/uL (1.0-4.8) Monocytes # (Auto) 1.0 x10^3/uL (0.0-1.1) Eosinophils # (Auto) 0.5 x10^3/uL (0.0-0.7) Basophils # (Auto) 0.3 x10^3/uL (0.0-0.2) Sodium Level 138 mmol/L (136-145) Potassium Level 4.1 mmol/L (3.5-5.1) Chloride Level 101 mmol/L (98-107) Carbon Dioxide Level 26 mmol/L (21-32) Anion Gap 11 (6-14) Blood Urea Nitrogen 18 mg/dL (8-26) Creatinine 0.8 mg/dL (0.7-1.3) Estimated GFR (Cockcroft-Gault) 106.5 Glucose Level 105 mg/dL (70-99) Calcium Level 9.6 mg/dL (8.5-10.1) Phosphorus Level 5.1 mg/dL (2.6-4.7) Magnesium Level 1.8 mg/dL (1.8-2.4) Triglycerides Level 207 mg/dL (0-150) Micro Microbiology 03/31/18 Blood Culture - Final, Complete NO GROWTH AFTER 5 DAYS Objective Assessment Fever - better - likely from pancreatitis/occlusive thrombus vs other, cult nonrevealing, resolving. Nml procalcitonin 04/06. D/c'd Micafungin and linezolid ( 03/30- 04/06 ) with neg cults and a week of treatment Rash LUE - mild Leukocytosis resolved Pancreatitis Encephalopathy, likely medication related ZAIRA - improved Alcoholism with DTs Lung infiltrates likely pulm venous congestion Occlusive thrombus Rt Cephalic vein on TPN Plan Plan of Care d/c Merrem (03/31) Cont to monitor LUE rash d/c cv line akhil/ DIANNA Cervantes MD Apr 13, 2018 11:35
--- NOTE | 2018-04-13 14:25 | RAD ---
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 Informed consent was obtained. A timeout procedure was performed. All elements of maximal sterile barrier technique including the use of a cap, mask, sterile gown, sterile gloves, large sterile sheet, appropriate hand hygiene, and 2% chlorhexidine for cutaneous antisepsis (or acceptable alternative antiseptic per current guidelines) were followed for this procedure. The patient was prepped and draped in the usual sterile fashion. Ultrasound interrogation of the left neck revealed patency and compressibility of the left internal jugular vein. A 21-gauge micropuncture was then used to gain access to this vein under ultrasound guidance. A hard copy ultrasound image was recorded. A guidewire was advanced centrally. 5 [place] sheath was placed. Over a wire following dilatation, a triple-lumen central venous catheter was advanced centrally. Catheter was found to flush and aspirate normally. Follow-up chest radiograph demonstrates tip at the cavoatrial junction. Catheter secured in place and a sterile dressing was applied. No immediate complications were identified. Impression: Successful ultrasound-guided placement of left internal jugular triple-lumen central venous catheter
[2018-04-13 15:00] VITALS: BP 149/87
[2018-04-13 19:00] VITALS: BP 139/84
[2018-04-13] MEDS: MORPHINE SULFATE 2 MG/ML VIAL. IV PRN (19:15)
[2018-04-13] MEDS: ENOXAPARIN 40 MG/0.4 ML SYRINGE. SQ SCH (21:07)
[2018-04-13 23:00] VITALS: BP 145/90
[2018-04-14] VITALS (7 sets, daily range): BP systolic 130–146; BP diastolic 74–100
[2018-04-14] MEDS: HALOPERIDOL LACTATE 5 MG/ML VIAL. IV SCH ×3 (05:10→21:01)
[2018-04-14] MEDS: diphenhydrAMINE 50 MG/ML VIAL IVP SCH ×3 (05:10→21:01)
[2018-04-14] MEDS: BUDESONIDE 0.5 MG/2 ML NEBU. NEB SCH ×2 (08:50→19:50)
[2018-04-14] MEDS: PANTOPRAZOLE IV PUSH 40 MG VIAL. IVP SCH (09:20)
[2018-04-14] MEDS: MORPHINE SULFATE 2 MG/ML VIAL. IV PRN ×3 (09:21→17:29)
--- NOTE | 2018-04-14 10:25 | PDOC ---
PROGRESS NOTES Chief Complaint Chief Complaint Presented with Abd pain N/V and pancreatitis Today he feels better, passed swallow test, started diet, off TPN and decrease pain medication frequency Doing better. Tolerating PO w/o n/v or abd pain. Ate eggs this am Says stooled yesterday. Wants connor out and LIJ removed. Not OOB w/o assistance. Out of ICU now, still recovering. History of Present Illness History of Present Illness Acute Pancreatitis Alcohol abuse and withdrawal AMS metabolic encephalopathy with alcohol withdrawal Severe agitation with homocide ideation requiring sedation and intubation 03/31 Acute hypoxic resp failure h/o Asthma GERD HTN Fever - better - likely from pancreatitis/occlusive thrombus vs other, cult nonrevealing, resolving. Nml procalcitonin 04/06. ID D/c'd Micafungin and linezolid ( 03/30- 04/06 ) with neg cults and a week of treatment Morbid obesity Leukocytosis resolving Hepatic lesions on CT ZAIRA - improved Lung infiltrates likely pulm venous congestion Occlusive thrombus Rt Cephalic vein Rash LUE - mild off TPN Plan Plan of Care D/C Merrem (03/31-04/13) Ambulate today again, he is very weak, likely will need skilled services on d/c Removed Connor Removed RIJ, placed PIV Cont to monitor LUE rash GI following Cont po Decrease frequency of pain medication. Change completely to oral Vitals Vitals Vital Signs Date Time Temp Pulse Resp B/P (MAP) Pulse Ox O2 Delivery O2 Flow Rate FiO2 04/14/18 09:21 24 Room Air 04/14/18 08:51 96 04/14/18 07:00 98.1 87 142/74 (96) 98.1 04/13/18 08:00 2.0 Physical Exam Physical Exam GENERAL: Laying in the bed, NAD LUNGS: CTAB CV: S1 S2 ABD: Obese, mildly distended, BS +, NT : Connor EXT: No gross edema or cyanosis SKIN: LUE biceps area with mild rash RIJ clean General: Alert, Cooperative, No acute distress Heart: Regular rate, Normal S1, Normal S2 Lungs: Clear, Other Abdomen: Soft, No masses Extremities: No cyanosis, No edema Skin: No rashes, No breakdown Labs LABS Laboratory Tests Test 04/13/18 11:49 04/13/18 17:16 Glucose (Fingerstick) 94 mg/dL (70-99) 106 mg/dL (70-99) Review of Systems Review of Systems Constitutional: Weak, little appetite, tremulous MSK: Weak bilateral legs Uro: Able to urinate without problems after connor removed Psych: Depressed, unaware his family will not accept him back home. Assessment and Plan Assessmemt and Plan Problems Medical Problems: (1) Alcoholic pancreatitis Status: Acute (2) ETOH abuse Status: Acute Comment Review of Relevant I have reviewed the following items wali (where applicable) has been applied. Labs Laboratory Tests Test 04/12/18 12:01 04/13/18 05:10 04/13/18 07:50 04/13/18 11:49 Glucose (Fingerstick) 135 mg/dL (70-99) 95 mg/dL (70-99) 94 mg/dL (70-99) White Blood Count 9.8 x10^3/uL (4.0-11.0) Red Blood Count 3.98 x10^6/uL (4.30-5.70) Hemoglobin 10.2 g/dL (13.0-17.5) Hematocrit 30.7 % (39.0-53.0) Mean Corpuscular Volume 77 fL (79-100) Mean Corpuscular Hemoglobin 26 pg (25-35) Mean Corpuscular Hemoglobin Concent 33 g/dL (31-37) Red Cell Distribution Width 18.0 % (11.5-14.5) Platelet Count 686 x10^3/uL (140-400) Neutrophils (%) (Auto) 57 % (31-73) Lymphocytes (%) (Auto) 26 % (24-48) Monocytes (%) (Auto) 10 % (0-9) Eosinophils (%) (Auto) 5 % (0-3) Basophils (%) (Auto) 3 % (0-3) Neutrophils # (Auto) 5.6 x10^3uL (1.8-7.7) Lymphocytes # (Auto) 2.5 x10^3/uL (1.0-4.8) Monocytes # (Auto) 1.0 x10^3/uL (0.0-1.1) Eosinophils # (Auto) 0.5 x10^3/uL (0.0-0.7) Basophils # (Auto) 0.3 x10^3/uL (0.0-0.2) Sodium Level 138 mmol/L (136-145) Potassium Level 4.1 mmol/L (3.5-5.1) Chloride Level 101 mmol/L (98-107) Carbon Dioxide Level 26 mmol/L (21-32) Anion Gap 11 (6-14) Blood Urea Nitrogen 18 mg/dL (8-26) Creatinine 0.8 mg/dL (0.7-1.3) Estimated GFR (Cockcroft-Gault) 106.5 Glucose Level 105 mg/dL (70-99) Calcium Level 9.6 mg/dL (8.5-10.1) Phosphorus Level 5.1 mg/dL (2.6-4.7) Magnesium Level 1.8 mg/dL (1.8-2.4) Triglycerides Level 207 mg/dL (0-150) Test 04/13/18 17:16 Glucose (Fingerstick) 106 mg/dL (70-99) Laboratory Tests Test 04/13/18 11:49 04/13/18 17:16 Glucose (Fingerstick) 94 mg/dL (70-99) 106 mg/dL (70-99) Microbiology 03/31/18 Blood Culture - Final, Complete NO GROWTH AFTER 5 DAYS Medications Current Medications Multivitamins 10 ml/Thiamine HCl 100 mg/Folic Acid 1 mg/Sodium Chloride 1,011.2 ml @ 1,000.088 mls/hr 1X ONCE IV Last administered on 03/26/18at 15:07; Start 03/26/18 at 14:00; Stop 03/26/18 at 15:00; Status DC Ondansetron HCl (Zofran) 4 mg 1X ONCE IV Last administered on 03/26/18at 14:13 ; Start 03/26/18 at 14:00; Stop 03/26/18 at 14:10; Status DC Pantoprazole Sodium (PROTONIX VIAL for IV PUSH) 40 mg 1X ONCE IVP Last administered on 03/26/18at 14:13; Start 03/26/18 at 14:00; Stop 03/26/18 at 14:10 ; Status DC Pantoprazole Sodium (PROTONIX VIAL for IV PUSH) 40 mg STK-MED ONCE IVP ; Start 03/26/18 at 14:10; Stop 03/26/18 at 14:11; Status DC Ondansetron HCl (Zofran) 4 mg STK-MED ONCE .ROUTE ; Start 03/26/18 at 14:10; Stop 03/26/18 at 14:11; Status DC Iohexol (Omnipaque 300 Mg/ml) 75 ml 1X ONCE IV Last administered on 03/26/18at 14:38; Start 03/26/18 at 14:45; Stop 03/26/18 at 14:46; Status DC Iohexol (Omnipaque 300 Mg/ml) 100 ml STK-MED ONCE .ROUTE ; Start 03/26/18 at 14: 38; Stop 03/26/18 at 14:39; Status DC Info (CONTRAST GIVEN -- Rx MONITORING) 1 each PRN DAILY PRN MC SEE COMMENTS; Start 03/26/18 at 14:45; Stop 03/28/18 at 14:44; Status DC Ondansetron HCl (Zofran) 4 mg 1X ONCE IV Last administered on 03/26/18at 15:08 ; Start 03/26/18 at 15:00; Stop 03/26/18 at 15:01; Status DC Morphine Sulfate (Morphine Sulfate) 5 mg 1X ONCE IV Last administered on at 15:09; Start 03/26/18 at 15:00; Stop 03/26/18 at 15:01; Status DC Ondansetron HCl (Zofran) 4 mg PRN Q8HRS PRN IV NAUSEA/VOMITING Last administered on 03/27/18at 12:22; Start 03/26/18 at 15:15; Stop 03/27/18 at 15:14 ; Status DC Morphine Sulfate (Morphine Sulfate) 4 mg PRN Q2HR PRN IV PAIN Last administered on 03/27/18at 15:12; Start 03/26/18 at 15:15; Stop 03/27/18 at 15:14 ; Status DC Multivitamins 10 ml/Thiamine HCl 100 mg/Folic Acid 1 mg/Sodium Chloride 1,011.2 ml @ 100 mls/ hr DAILY IV Last administered on 03/30/18at 07:52; Start at 16:00; Stop 03/30/18 at 19:07; Status DC Lorazepam (Ativan) 2 mg PRN Q1HR PRN IV For CIWA 8-14 Last administered on 03/26at 15:59; Start 03/26/18 at 15:15; Stop 03/26/18 at 16:43; Status DC Sodium Chloride 1,000 ml @ 125 mls/hr 1X ONCE IV Last administered on at 02:10; Start 03/26/18 at 15:15; Stop 03/26/18 at 23:14; Status DC Pantoprazole Sodium (PROTONIX VIAL for IV PUSH) 40 mg DAILYAC IVP Last administered on 03/30/18at 07:52; Start 03/27/18 at 07:30; Stop 03/30/18 at 10:52 ; Status DC Multivitamins 10 ml/Thiamine HCl 100 mg/Folic Acid 1 mg/Sodium Chloride 1,011.2 ml @ 100 mls/ hr DAILY IV ; Start 03/27/18 at 09:00; Stop 03/31/18 at 19:07; Status UNV Multivitamins (Thera M Plus) 1 tab DAILY PO ; Start 03/31/18 at 09:00; Stop at 14:18; Status DC Folic Acid (Folic Acid) 1 mg DAILY PO ; Start 03/31/18 at 09:00; Stop 03/31/18 at 14:18; Status DC Thiamine HCl 100 mg/Dextrose 51 ml @ 100 mls/hr DAILY IV ; Start 03/27/18 at 09 :00; Stop 03/31/18 at 09:31; Status UNV Lorazepam (Ativan) 2 mg Q6H PO Last administered on 03/26/18at 22:19; Start at 17:00; Stop 03/27/18 at 01:47; Status DC Lorazepam (Ativan) 4 mg PRN Q1HR PRN PO For CIWA 8-14; Start 03/26/18 at 16:45 Lorazepam (Ativan) 2 mg PRN Q1HR PRN IV For CIWA 8-14 Last administered on 04/10at 07:51; Start 03/26/18 at 16:45 Lorazepam (Ativan) 4 mg PRN Q1HR PRN IV For CIWA 15 or greater Last administered on 04/09/18at 14:51; Start 03/26/18 at 16:45 Haloperidol Lactate (Haldol Inj) 5 mg PRN Q4HRS PRN IVP Hallucinatns,Confusn, Delirium Last administered on 04/06/18at 11:21; Start 03/26/18 at 16:45 Diphenhydramine HCl (Benadryl) 25 mg PRN Q15MIN PRN IVP EPS symptoms 2'Haldol admin Last administered on 03/29/18at 08:25; Start 03/26/18 at 16:45 Clonidine HCl (Catapres) 0.1 mg PRN Q1HR PRN PO SBP > 180 or DBP > 100, MRX3 Last administered on 03/27/18at 05:28; Start 03/26/18 at 16:45 Lorazepam (Ativan) 2 mg PRN Q15MIN PRN IV ; Start 03/26/18 at 16:45; Status UNV Lorazepam (Ativan) 4 mg PRN Q15MIN PRN IV ; Start 03/26/18 at 16:45; Status UNV Pantoprazole Sodium (PROTONIX VIAL for IV PUSH) 40 mg DAILYAC IVP ; Start at 07:30; Status UNV Enoxaparin Sodium (Lovenox 40mg Syringe) 40 mg Q24H SQ Last administered on 04/13/18at 21:07; Start 03/26/18 at 21:00 Albuterol Sulfate (Ventolin Neb Soln) 2.5 mg PRN Q2HRS PRN NEB SHORTNESS OF BREATH Last administered on 03/29/18at 04:12; Start 03/26/18 at 17:00; Stop 03/30 at 13:29; Status DC Non-Formulary Medication (Albuterol Sulfate (Proair Hfa Inhaler)) 1 puff PRN Q4HRS PRN INH SHORTNESS OF BREATH; Start 03/26/18 at 16:45; Status UNV Non-Formulary Medication (Budesonide/ Formoterol Fumarate (Symbicort 160-4.5 Mcg Inhaler)) 2 puff BID IH ; Start 03/26/18 at 21:00; Status UNV Theophylline (Theodur) 300 mg BID PO Last administered on 03/30/18at 08:45; Start 03/26/18 at 21:00; Stop 04/02/18 at 08:50; Status DC Budesonide (Pulmicort) 0.5 mg RTBID NEB Last administered on 04/14/18at 08:50; Start 03/26/18 at 20:00 Albuterol Sulfate (Ventolin Neb Soln) 2.5 mg RTQID NEB Last administered on at 12:28; Start 03/26/18 at 20:00; Stop 03/30/18 at 13:24; Status DC Sodium Chloride 1,000 ml @ 1,000 mls/hr 1X ONCE IV Last administered on at 12:23; Start 03/27/18 at 12:15; Stop 03/27/18 at 13:14; Status DC Sodium Chloride 1,000 ml @ 1,000 mls/hr 1X ONCE IV Last administered on at 13:05; Start 03/27/18 at 12:15; Stop 03/27/18 at 13:14; Status DC Sodium Chloride 1,000 ml @ 1,000 mls/hr 1X ONCE IV Last administered on at 14:11; Start 03/27/18 at 12:15; Stop 03/27/18 at 13:14; Status DC Sodium Chloride 136 ml @ 500 mls/hr 1X ONCE IV Last administered on at 12:15; Start 03/27/18 at 12:15; Stop 03/27/18 at 12:31; Status DC Piperacillin Sod/ Tazobactam Sod 3.375 gm/Sodium Chloride 50 ml @ 100 mls/hr Q6HRS IV Last administered on 03/31/18at 12:16; Start 03/27/18 at 16:00; Stop at 13:38; Status DC Morphine Sulfate (Morphine Sulfate) 2 mg PRN Q2HR PRN IV PAIN Last administered on 03/31/18at 10:42; Start 03/27/18 at 16:45; Stop 04/12/18 at 12:37 ; Status DC Ondansetron HCl (Zofran) 4 mg PRN Q6HRS PRN IV NAUSEA/VOMITING 1ST CHOICE Last administered on 04/12/18at 06:33; Start 03/27/18 at 16:45 Sodium Chloride 1,000 ml @ 125 mls/hr Q8H IV Last administered on 03/29/18at 10 :14; Start 03/27/18 at 17:45; Stop 03/29/18 at 14:21; Status DC Diazepam (Valium) 5 mg PRN Q2HR PRN PO Agitation/Alcohol withdraw Last administered on 04/12/18at 23:24; Start 03/29/18 at 01:45 Belladonna Alkaloids/Opium (B & O) 1 supp PRN Q12HR PRN NM BLADDER SPASM Last administered on 03/29/18at 02:58; Start 03/29/18 at 01:45 Dexmedetomidine HCl 200 mcg/ Sodium Chloride 50 ml @ 0 mls/hr CONT PRN IV PER PROTOCOL Last administered on 04/09/18at 07:41; Start 03/29/18 at 08:30; Stop at 07:53; Status DC Sodium Chloride 500 ml @ 500 mls/hr 1X PRN PRN IV SEE COMMENTS; Start at 08:30 Atropine Sulfate (ATROPINE 0.5mg SYRINGE) 0.5 mg PRN Q5MIN PRN IV SEE COMMENTS ; Start 03/29/18 at 08:30 Potassium Chloride (Klor-Con) 40 meq 1X ONCE PO Last administered on at 14:25; Start 03/29/18 at 13:15; Stop 03/29/18 at 13:16; Status DC Potassium Chloride/Sodium Chloride 1,000 ml @ 75 mls/hr [id number] IV Last administered on 04/01/18at 08:47; Start 03/29/18 at 14:15; Stop 04/01/18 at 13:39 ; Status DC Pantoprazole Sodium (Protonix) 40 mg DAILYAC PO ; Start 03/31/18 at 07:30; Stop 03/31/18 at 11:32; Status DC Albuterol Sulfate (Ventolin Neb Soln) 2.5 mg PRN Q4HRS PRN NEB WHEEZING Last administered on 04/12/18at 19:21; Start 03/30/18 at 13:30 Micafungin Sodium 100 mg/Dextrose 100 ml @ 100 mls/hr Q24H IV Last administered on 04/05/18at 15:07; Start 03/30/18 at 15:00; Stop 04/06/18 at 08:05 ; Status DC Linezolid/Dextrose 300 ml @ 300 mls/hr Q12HR IV Last administered on at 21:33; Start 03/30/18 at 14:00; Stop 04/06/18 at 08:05; Status DC Olanzapine (ZyPREXA IM) 10 mg PRN Q8HRS PRN IM ANXIETY / AGITATION; Start 03/30 at 14:00; Stop 04/07/18 at 14:49; Status DC Labetalol HCl (Normodyne Iv Push) 20 mg PRN Q2HR PRN IVP GIVE FOR SBP > 180 DBP >110 Last administered on 04/10/18at 02:51; Start 03/30/18 at 17:15 Acetaminophen (Tylenol Supp) 650 mg PRN Q6HRS PRN NM MILD PAIN / TEMP Last administered on 03/31/18at 15:02; Start 03/30/18 at 17:15 Iohexol (Omnipaque 300 Mg/ml) 75 ml 1X ONCE IV ; Start 03/31/18 at 09:15; Stop 03/31/18 at 09:16; Status DC Info (CONTRAST GIVEN -- Rx MONITORING) 1 each PRN DAILY PRN MC SEE COMMENTS; Start 03/31/18 at 09:15; Stop 04/02/18 at 09:14; Status DC Iohexol (Omnipaque 300 Mg/ml) 75 ml 1X ONCE IV Last administered on 03/31/18at 10:29; Start 03/31/18 at 10:00; Stop 03/31/18 at 10:04; Status DC Fentanyl Citrate 30 ml @ 0 mls/hr CONT PRN IV PER PROTOCOL Last administered on 04/08/18at 13:59; Start 03/31/18 at 11:00; Stop 04/11/18 at 08:11; Status DC Lorazepam (Ativan) 2 mg STK-MED ONCE .ROUTE ; Start 03/31/18 at 11:02; Stop at 11:03; Status DC Vecuronium Basalt (Norcuron Bolus) 10 mg STK-MED ONCE IV ; Start 03/31/18 at 11 :05; Stop 03/31/18 at 11:06; Status DC Propofol 100 ml @ As Directed STK-MED ONCE IV ; Start 03/31/18 at 11:08; Stop 03/31/18 at 11:09; Status DC Vecuronium Basalt (Norcuron Bolus) 10 mg STK-MED ONCE IV ; Start 03/31/18 at 11 :08; Stop 03/31/18 at 11:10; Status DC Succinylcholine Chloride (Anectine) 200 mg 1X ONCE IV ; Start 03/31/18 at 11:30 ; Stop 03/31/18 at 11:31; Status DC Propofol 100 ml @ 0 mls/hr CONT PRN IV PER PROTOCOL Last administered on at 15:13; Start 03/31/18 at 11:30; Stop 04/11/18 at 07:52; Status DC Chlorhexidine Gluconate (Peridex) 15 ml BID MM Last administered on 04/08/18at 07:56; Start 03/31/18 at 21:00; Stop 04/10/18 at 12:08; Status DC Pantoprazole Sodium (PROTONIX VIAL for IV PUSH) 40 mg DAILYAC IVP Last administered on 04/14/18at 09:20; Start 04/01/18 at 07:30 Vecuronium Basalt (Norcuron Bolus) 10 mg 1X ONCE IV Last administered on 03/31at 11:58; Start 03/31/18 at 12:00; Stop 03/31/18 at 12:01; Status DC Meropenem 500 mg/ Sodium Chloride 50 ml @ 100 mls/hr Q6HRS IV Last administered on 04/13/18at 05:07; Start 03/31/18 at 18:00; Stop 04/13/18 at 11:36 ; Status DC Info (Tpn Per Pharmacy) 1 each PRN DAILY PRN MC SEE COMMENTS Last administered on 04/12/18at 09:59; Start 03/31/18 at 14:00; Stop 04/12/18 at 12:31; Status DC Sodium Chloride 45 meq/Sodium Acetate 45 meq/ Potassium Chloride 50 meq/ Potassium Phosphate 13.6 mmol/Magnesium Sulfate 10 meq/ Calcium Gluconate 10 meq / Multivitamins 10 ml/Chromium/ Copper/Manganese/ Seleni/Zn 1 ml/ Folic Acid 1 mg/ Thiamine HCl 100 mg/Total Donna... 1,512 ml @ 63 mls/hr TPN CONT IV Last administered on 03/31/18at 21:41; Start 03/31/18 at 22:00; Stop 04/01/18 at 21:59; Status DC Octreotide Acetate (SandoSTATIN) 100 mcg Q8HRS SQ Last administered on at 06:14; Start 03/31/18 at 15:30; Stop 04/05/18 at 11:58; Status DC Vecuronium Basalt (Norcuron Bolus) 10 mg STK-MED ONCE IV ; Start 03/31/18 at 11 :10; Stop 04/01/18 at 09:10; Status DC Lorazepam (Ativan) 2 mg STK-MED ONCE .ROUTE ; Start 03/31/18 at 11:10; Stop at 09:10; Status DC Sodium Chloride 45 meq/Sodium Acetate 45 meq/ Potassium Chloride 70 meq/ Potassium Phosphate 13.6 mmol/Magnesium Sulfate 10 meq/ Calcium Gluconate 10 meq / Multivitamins 10 ml/Chromium/ Copper/Manganese/ Seleni/Zn 1 ml/ Folic Acid 1 mg/ Thiamine HCl 100 mg/Total Donna... 1,512 ml @ 63 mls/hr TPN CONT IV Last administered on 04/01/18at 22:35; Start 04/01/18 at 22:00; Stop 04/02/18 at 21:59; Status DC Furosemide (Lasix) 20 mg 1X ONCE IVP Last administered on 04/02/18at 09:12; Start 04/02/18 at 09:30; Stop 04/02/18 at 09:31; Status DC Sodium Chloride 45 meq/Sodium Acetate 45 meq/ Potassium Chloride 70 meq/ Potassium Phosphate 13.6 mmol/Magnesium Sulfate 10 meq/ Calcium Gluconate 10 meq / Multivitamins 10 ml/Chromium/ Copper/Manganese/ Seleni/Zn 1 ml/ Folic Acid 1 mg/ Thiamine HCl 100 mg/Total Donna... 1,512 ml @ 63 mls/hr TPN CONT IV Last administered on 04/02/18at 22:18; Start 04/02/18 at 22:00; Stop 04/03/18 at 21:59; Status DC Multi-Ingred Cream/Lotion/Oil/ Oint (Artificial Tears Eye Ointment) 1 rosemary Q12HR OU Last administered on 04/08/18at 07:56; Start 04/02/18 at 14:00; Stop at 08:12; Status DC Sodium Chloride 45 meq/Sodium Acetate 45 meq/ Potassium Chloride 70 meq/ Potassium Phosphate 13.6 mmol/Magnesium Sulfate 10 meq/ Calcium Gluconate 10 meq / Multivitamins 10 ml/Chromium/ Copper/Manganese/ Seleni/Zn 1 ml/ Folic Acid 1 mg/ Thiamine HCl 100 mg/Total Donna... 1,512 ml @ 63 mls/hr TPN CONT IV Last administered on 04/03/18at 21:11; Start 04/03/18 at 22:00; Stop 04/04/18 at 21:59; Status DC Sodium Chloride 60 meq/Sodium Acetate 50 meq/ Potassium Chloride 70 meq/ Potassium Phosphate 13.6 mmol/Magnesium Sulfate 10 meq/ Calcium Gluconate 10 meq / Multivitamins 10 ml/Chromium/ Copper/Manganese/ Seleni/Zn 1 ml/ Folic Acid 1 mg/ Thiamine HCl 100 mg/Total Donna... 1,512 ml @ 63 mls/hr TPN CONT IV Last administered on 04/04/18at 21:40; Start 04/04/18 at 22:00; Stop 04/05/18 at 21:59; Status DC Sodium Chloride 50 meq/Sodium Acetate 50 meq/ Potassium Chloride 70 meq/ Potassium Phosphate 13.6 mmol/Magnesium Sulfate 10 meq/ Calcium Gluconate 10 meq / Multivitamins 10 ml/Chromium/ Copper/Manganese/ Seleni/Zn 1 ml/ Folic Acid 1 mg/ Thiamine HCl 100 mg/Total Donna... 1,512 ml @ 63 mls/hr TPN CONT IV Last administered on 04/05/18at 21:34; Start 04/05/18 at 22:00; Stop 04/06/18 at 21:59; Status DC Sodium Chloride 50 meq/Sodium Acetate 50 meq/ Potassium Chloride 70 meq/ Potassium Phosphate 13.6 mmol/Magnesium Sulfate 10 meq/ Calcium Gluconate 10 meq / Multivitamins 10 ml/Chromium/ Copper/Manganese/ Seleni/Zn 1 ml/ Folic Acid 1 mg/ Thiamine HCl 100 mg/Total Donna... 1,512 ml @ 63 mls/hr TPN CONT IV Last administered on 04/06/18at 21:24; Start 04/06/18 at 22:00; Stop 04/07/18 at 21:59; Status DC Iohexol (Omnipaque 300 Mg/ml) 75 ml 1X ONCE IV Last administered on 04/06/18at 11:45; Start 04/06/18 at 11:45; Stop 04/06/18 at 11:46; Status DC Info (CONTRAST GIVEN -- Rx MONITORING) 1 each PRN DAILY PRN MC SEE COMMENTS; Start 04/06/18 at 11:45; Stop 04/08/18 at 11:44; Status DC Sodium Chloride 50 meq/Sodium Acetate 50 meq/ Potassium Chloride 65 meq/ Potassium Phosphate 13.6 mmol/Magnesium Sulfate 10 meq/ Calcium Gluconate 10 meq / Multivitamins 10 ml/Chromium/ Copper/Manganese/ Seleni/Zn 1 ml/ Folic Acid 1 mg/ Thiamine HCl 100 mg/Total Donna... 1,512 ml @ 63 mls/hr TPN CONT IV Last administered on 04/07/18at 21:55; Start 04/07/18 at 22:00; Stop 04/08/18 at 21:59; Status DC Olanzapine (ZyPREXA IM) 10 mg Q8HRS PRN IM ANXIETY / AGITATION; Start 04/07/18 at 15:00; Stop 04/07/18 at 15:00; Status DC Olanzapine (ZyPREXA IM) 10 mg Q8HRS PRN IM AGITATION; Start 04/07/18 at 15:00; Stop 04/07/18 at 15:23; Status DC Olanzapine (ZyPREXA IM) 10 mg Q8HRS IM Last administered on 04/08/18at 05:50; Start 04/07/18 at 15:00; Stop 04/08/18 at 12:44; Status DC Sodium Chloride 50 meq/Sodium Acetate 50 meq/ Potassium Chloride 65 meq/ Potassium Phosphate 13.6 mmol/Magnesium Sulfate 10 meq/ Multivitamins 10 ml/ Chromium/ Copper/Manganese/ Seleni/Zn 1 ml/ Folic Acid 1 mg/ Thiamine HCl 100 mg /Total Parenteral Nutrition/Amino Acids/Dextrose 1,512 ml @ 63 mls/hr TPN CONT IV Last administered on 04/08/18at 21:56; Start 04/08/18 at 22:00; Stop at 21:59; Status DC Haloperidol Lactate (Haldol Inj) 10 mg Q8HRS IV Last administered on 04/14/18at 05:10; Start 04/08/18 at 14:00 Diphenhydramine HCl (Benadryl) 50 mg Q8HRS IVP Last administered on 04/14/18at 05:10; Start 04/08/18 at 14:00 Sodium Chloride 50 meq/Sodium Acetate 50 meq/ Potassium Chloride 65 meq/ Potassium Phosphate 13.6 mmol/Magnesium Sulfate 10 meq/ Multivitamins 10 ml/ Chromium/ Copper/Manganese/ Seleni/Zn 1 ml/ Folic Acid 1 mg/ Thiamine HCl 100 mg /Total Parenteral Nutrition/Amino Acids/Dextro... 1,492 ml @ 62.167 mls/ hr TPN CONT IV Last administered on 04/09/18at 21:46; Start 04/09/18 at 22:00; Stop 04/10/18 at 21:59; Status DC Scopolamine (Transderm-Scop) 1 patch Q3DAYS TD Last administered on 04/10/18at 01:00; Start 04/10/18 at 01:00; Stop 04/12/18 at 07:25; Status DC Prochlorperazine Edisylate (Compazine) 10 mg PRN Q6HRS PRN IV NAUSEA/VOMITING 2ND CHOICE Last administered on 04/10/18at 05:45; Start 04/10/18 at 05:30 Sodium Chloride 50 meq/Sodium Acetate 50 meq/ Potassium Chloride 65 meq/ Potassium Phosphate 13.6 mmol/Magnesium Sulfate 10 meq/ Multivitamins 10 ml/ Chromium/ Copper/Manganese/ Seleni/Zn 1 ml/ Folic Acid 1 mg/ Thiamine HCl 100 mg /Total Parenteral Nutrition/Amino Acids/Dextro... 1,492 ml @ 62.167 mls/ hr TPN CONT IV Last administered on 04/10/18at 21:37; Start 04/10/18 at 22:00; Stop 04/11/18 at 21:59; Status DC Sodium Chloride 50 meq/Sodium Acetate 50 meq/ Potassium Chloride 65 meq/ Potassium Phosphate 13.6 mmol/Magnesium Sulfate 10 meq/ Multivitamins 10 ml/ Chromium/ Copper/Manganese/ Seleni/Zn 1 ml/ Folic Acid 1 mg/ Thiamine HCl 100 mg /Total Parenteral Nutrition/Amino Acids/Dextro... 1,512 ml @ 63 mls/hr TPN CONT IV Last administered on 04/11/18at 22:10; Start 04/11/18 at 22:00; Stop at 21:59; Status DC Sodium Chloride 50 meq/Sodium Acetate 50 meq/ Potassium Chloride 65 meq/ Potassium Phosphate 13.6 mmol/Magnesium Sulfate 10 meq/ Multivitamins 10 ml/ Chromium/ Copper/Manganese/ Seleni/Zn 1 ml/ Folic Acid 1 mg/ Thiamine HCl 100 mg /Total Parenteral Nutrition/Amino Acids/Dextro... 1,512 ml @ 63 mls/hr TPN CONT IV ; Start 04/12/18 at 22:00; Stop 04/12/18 at 22:00; Status DC Morphine Sulfate (Morphine Sulfate) 2 mg PRN Q4HRS PRN IV PAIN Last administered on 04/14/18at 09:21; Start 04/12/18 at 12:45 Active Scripts Active Diazepam 5 Mg Tablet 5 Mg PO DAILY Reported Proair Hfa Inhaler (Albuterol Sulfate) 8.5 Gm Hfa.aer.ad 1 Puff INH PRN Q4HRS PRN Duoneb 0.5-3(2.5) Mg/3 Ml (Albuterol/Ipratropium) 3 Ml Ampul.neb 3 Ml NEB Q2HR PRN Symbicort 160-4.5 Mcg Inhaler (Budesonide/Formoterol Fumarate) 10.2 Gm Hfa.aer.ad 2 Puff IH BID Prilosec Otc (Omeprazole Magnesium) 20 Mg Tablet.dr 1 Tab PO DAILY Theophylline (Theophylline Anhydrous) 400 Mg Tablet.er 300 Mg PO BID Vitals/I & O Vital Sign - Last 24 Hours 04/13/18 04/13/18 04/13/18 04/13/18 11:00 15:00 19:00 19:00 Temp 97.5 97.5 98.2 97.5 97.5 98.2 Pulse 98 100 101 Resp 18 B/P (MAP) 146/82 (103) 149/87 (107) 139/84 (102) Pulse Ox 98 96 96 O2 Delivery Room Air Room Air Room Air Room Air 04/13/18 04/13/18 04/13/18 04/13/18 19:15 19:44 19:47 23:00 Temp 97.9 97.9 Pulse 88 Resp 18 16 18 B/P (MAP) 145/90 (108) Pulse Ox 96 96 95 O2 Delivery Room Air Room Air Room Air Room Air 04/14/18 04/14/18 04/14/18 04/14/18 03:00 03:30 07:00 08:51 Temp 97.5 98.1 97.5 98.1 Pulse 100 87 Resp 18 16 B/P (MAP) 146/100 (115) 142/89 (106) 142/74 (96) Pulse Ox 96 93 96 O2 Delivery Room Air Room Air Room Air 04/14/18 09:21 Resp 24 O2 Delivery Room Air Intake and Output 04/13/18 04/13/18 04/14/18 15:00 23:00 07:00 Intake Total 250 ml Balance 250 ml RYAN HERNÁNDEZ MD Apr 14, 2018 10:25
--- NOTE | 2018-04-14 10:36 | PDOC ---
Subjective: Subjective: I asked how he was doing and he said "I don't know." Has some abd pain after eating, no n/v. Objective: Objective: Reviewed chart - might have to go to [facility] [place]? Per RN - he said he had a dark stool. Vital Signs: Vital Signs Date Time Temp Pulse Resp B/P (MAP) Pulse Ox O2 Delivery O2 Flow Rate FiO2 04/14/18 09:21 24 Room Air 04/14/18 08:51 96 04/14/18 07:00 98.1 87 142/74 (96) 98.1 04/13/18 08:00 2.0 Labs: Laboratory Tests Test 04/13/18 11:49 04/13/18 17:16 Glucose (Fingerstick) 94 mg/dL 106 mg/dL PE: GEN: NAD LUNGS: CTAB HEART: RRR ABD: soft, not particularly tender NEURO/PSYCH: A & O 3, mildly tremulous A/P: Pancreatitis/alcohol withdrawal Anemia - stable, has been on IV PPI -- Change to PO PPI. Supportive care. MESSI GORE Apr 14, 2018 10:36
--- NOTE | 2018-04-14 12:27 | PDOC ---
Infectious Disease Note Subjective Subjective Feeling better over-all Tolerating soft diet Walking some Pain controlled Denies F/C/N/V/D ROS ROS per HPI otherwise neg Vital Sign Vital Signs Vital Signs Date Time Temp Pulse Resp B/P (MAP) Pulse Ox O2 Delivery O2 Flow Rate FiO2 04/14/18 09:21 24 Room Air 04/14/18 08:51 96 04/14/18 07:00 98.1 87 142/74 (96) 98.1 04/13/18 08:00 2.0 Physical Exam PHYSICAL EXAM GENERAL: Laying in the bed, NAD LUNGS: CTAB CV: S1 S2 ABD: Obese, mildly distended, BS +, NT : Kramer out EXT: No gross edema or cyanosis SKIN: LUE biceps area with mild rash - fading RIJ clean - out PIV Labs Lab Laboratory Tests Test 04/13/18 17:16 Glucose (Fingerstick) 106 mg/dL (70-99) Micro Microbiology 03/27/18 Blood Culture - Preliminary, Resulted NO GROWTH AFTER 5 DAY Objective Assessment Fever - better - likely from pancreatitis/occlusive thrombus vs other, cult nonrevealing, resolving. Nml procalcitonin 04/06. D/c'd Micafungin and linezolid ( 03/30- 04/06 ) with neg cults and a week of treatment Rash LUE - mild - resolving Leukocytosis resolved Pancreatitis Encephalopathy, likely medication related ZAIRA - improved Alcoholism with DTs Lung infiltrates likely pulm venous congestion Occlusive thrombus Rt Cephalic vein Plan Plan of Care Continue to observe off abx will sign off Attending Co-Sign The patient was seen and interviewed as well as examined at the bedside. The chart was reviewed. The case was discussed. Agree with the plan of care. ALESHA ELMORE APRN Apr 14, 2018 12:27 DIANNA VALENTE MD Apr 14, 2018 13:08
[2018-04-14] MEDS: ONDANSETRON PF 4 MG/2 ML VIAL. IV PRN (19:36)
[2018-04-14] MEDS: ENOXAPARIN 40 MG/0.4 ML SYRINGE. SQ SCH (21:01)
[2018-04-15 02:58] VITALS: BP 117/58
[2018-04-15] MEDS: HALOPERIDOL LACTATE 5 MG/ML VIAL. IV SCH (05:13)
[2018-04-15] MEDS: diphenhydrAMINE 50 MG/ML VIAL IVP SCH (05:13)
[2018-04-15 07:00] VITALS: BP 137/82
[2018-04-15] MEDS: BUDESONIDE 0.5 MG/2 ML NEBU. NEB SCH ×2 (08:05→20:23)
--- NOTE | 2018-04-15 09:33 | PDOC ---
PROGRESS NOTES Chief Complaint Chief Complaint Presented with Abd pain N/V and pancreatitis Today he is diaphoretic, trembling, appears agitated does not look well today has passed swallow test, started diet, Tolerating PO w/o n/v or abd pain. Ate eggs this am Says stooled yesterday. Wants connor out and LIJ removed. Not OOB w/o assistance. Out of ICU now, still recovering. History of Present Illness History of Present Illness Acute Pancreatitis Alcohol abuse and withdrawal AMS metabolic encephalopathy with alcohol withdrawal Severe agitation with homocide ideation requiring sedation and intubation 03/31 Acute hypoxic resp failure h/o Asthma GERD HTN Fever - better - likely from pancreatitis/occlusive thrombus vs other, cult nonrevealing, resolving. Nml procalcitonin 04/06. ID D/c'd Micafungin and linezolid ( 03/30- 04/06 ) with neg cults and a week of treatment Morbid obesity Leukocytosis resolving Hepatic lesions on CT ZAIRA - improved Lung infiltrates likely pulm venous congestion Occlusive thrombus Rt Cephalic vein Rash LUE - mild off TPN off Merrem Ambulate today again, he is very weak, likely will need skilled services on d/c Removed Connor Removed RIJ, placed PIV Cont to monitor LUE rash GI following Cont po - meds changed to PO yesterday, will give IV ativan Vitals Vitals Vital Signs Date Time Temp Pulse Resp B/P (MAP) Pulse Ox O2 Delivery O2 Flow Rate FiO2 04/15/18 08:06 96 Room Air 04/15/18 07:00 98.6 92 17 137/82 (100) 98.6 Physical Exam Physical Exam GENERAL: Laying in the bed, NAD LUNGS: CTAB CV: S1 S2 ABD: Obese, mildly distended, BS +, NT : Connor out EXT: No gross edema or cyanosis SKIN: LUE biceps area with mild rash - fading RIJ clean - out PIV General: Alert, Cooperative, No acute distress Heart: Regular rate, Normal S1, Normal S2 Lungs: Clear, Other Abdomen: Soft, No masses Extremities: No cyanosis, No edema Skin: No rashes, No breakdown Assessment and Plan Assessmemt and Plan Problems Medical Problems: (1) Alcoholic pancreatitis Status: Acute (2) ETOH abuse Status: Acute Comment Review of Relevant I have reviewed the following items wali (where applicable) has been applied. Labs Laboratory Tests Test 04/13/18 11:49 04/13/18 17:16 Glucose (Fingerstick) 94 mg/dL (70-99) 106 mg/dL (70-99) Microbiology 03/31/18 Blood Culture - Final, Complete NO GROWTH AFTER 5 DAYS Medications Current Medications Multivitamins 10 ml/Thiamine HCl 100 mg/Folic Acid 1 mg/Sodium Chloride 1,011.2 ml @ 1,000.088 mls/hr 1X ONCE IV Last administered on 03/26/18at 15:07; Start 03/26/18 at 14:00; Stop 03/26/18 at 15:00; Status DC Ondansetron HCl (Zofran) 4 mg 1X ONCE IV Last administered on 03/26/18at 14:13 ; Start 03/26/18 at 14:00; Stop 03/26/18 at 14:10; Status DC Pantoprazole Sodium (PROTONIX VIAL for IV PUSH) 40 mg 1X ONCE IVP Last administered on 03/26/18at 14:13; Start 03/26/18 at 14:00; Stop 03/26/18 at 14:10 ; Status DC Pantoprazole Sodium (PROTONIX VIAL for IV PUSH) 40 mg STK-MED ONCE IVP ; Start 03/26/18 at 14:10; Stop 03/26/18 at 14:11; Status DC Ondansetron HCl (Zofran) 4 mg STK-MED ONCE .ROUTE ; Start 03/26/18 at 14:10; Stop 03/26/18 at 14:11; Status DC Iohexol (Omnipaque 300 Mg/ml) 75 ml 1X ONCE IV Last administered on 03/26/18at 14:38; Start 03/26/18 at 14:45; Stop 03/26/18 at 14:46; Status DC Iohexol (Omnipaque 300 Mg/ml) 100 ml STK-MED ONCE .ROUTE ; Start 03/26/18 at 14: 38; Stop 03/26/18 at 14:39; Status DC Info (CONTRAST GIVEN -- Rx MONITORING) 1 each PRN DAILY PRN MC SEE COMMENTS; Start 03/26/18 at 14:45; Stop 03/28/18 at 14:44; Status DC Ondansetron HCl (Zofran) 4 mg 1X ONCE IV Last administered on 03/26/18at 15:08 ; Start 03/26/18 at 15:00; Stop 03/26/18 at 15:01; Status DC Morphine Sulfate (Morphine Sulfate) 5 mg 1X ONCE IV Last administered on at 15:09; Start 03/26/18 at 15:00; Stop 03/26/18 at 15:01; Status DC Ondansetron HCl (Zofran) 4 mg PRN Q8HRS PRN IV NAUSEA/VOMITING Last administered on 03/27/18at 12:22; Start 03/26/18 at 15:15; Stop 03/27/18 at 15:14 ; Status DC Morphine Sulfate (Morphine Sulfate) 4 mg PRN Q2HR PRN IV PAIN Last administered on 03/27/18at 15:12; Start 03/26/18 at 15:15; Stop 03/27/18 at 15:14 ; Status DC Multivitamins 10 ml/Thiamine HCl 100 mg/Folic Acid 1 mg/Sodium Chloride 1,011.2 ml @ 100 mls/ hr DAILY IV Last administered on 03/30/18at 07:52; Start at 16:00; Stop 03/30/18 at 19:07; Status DC Lorazepam (Ativan) 2 mg PRN Q1HR PRN IV For CIWA 8-14 Last administered on 03/26at 15:59; Start 03/26/18 at 15:15; Stop 03/26/18 at 16:43; Status DC Sodium Chloride 1,000 ml @ 125 mls/hr 1X ONCE IV Last administered on at 02:10; Start 03/26/18 at 15:15; Stop 03/26/18 at 23:14; Status DC Pantoprazole Sodium (PROTONIX VIAL for IV PUSH) 40 mg DAILYAC IVP Last administered on 03/30/18at 07:52; Start 03/27/18 at 07:30; Stop 03/30/18 at 10:52 ; Status DC Multivitamins 10 ml/Thiamine HCl 100 mg/Folic Acid 1 mg/Sodium Chloride 1,011.2 ml @ 100 mls/ hr DAILY IV ; Start 03/27/18 at 09:00; Stop 03/31/18 at 19:07; Status UNV Multivitamins (Thera M Plus) 1 tab DAILY PO ; Start 03/31/18 at 09:00; Stop at 14:18; Status DC Folic Acid (Folic Acid) 1 mg DAILY PO ; Start 03/31/18 at 09:00; Stop 03/31/18 at 14:18; Status DC Thiamine HCl 100 mg/Dextrose 51 ml @ 100 mls/hr DAILY IV ; Start 03/27/18 at 09 :00; Stop 03/31/18 at 09:31; Status UNV Lorazepam (Ativan) 2 mg Q6H PO Last administered on 03/26/18at 22:19; Start at 17:00; Stop 03/27/18 at 01:47; Status DC Lorazepam (Ativan) 4 mg PRN Q1HR PRN PO For CIWA 8-14; Start 03/26/18 at 16:45 Lorazepam (Ativan) 2 mg PRN Q1HR PRN IV For CIWA 8-14 Last administered on 04/10at 07:51; Start 03/26/18 at 16:45 Lorazepam (Ativan) 4 mg PRN Q1HR PRN IV For CIWA 15 or greater Last administered on 04/09/18at 14:51; Start 03/26/18 at 16:45 Haloperidol Lactate (Haldol Inj) 5 mg PRN Q4HRS PRN IVP Hallucinatns,Confusn, Delirium Last administered on 04/06/18at 11:21; Start 03/26/18 at 16:45 Diphenhydramine HCl (Benadryl) 25 mg PRN Q15MIN PRN IVP EPS symptoms 2'Haldol admin Last administered on 03/29/18at 08:25; Start 03/26/18 at 16:45 Clonidine HCl (Catapres) 0.1 mg PRN Q1HR PRN PO SBP > 180 or DBP > 100, MRX3 Last administered on 03/27/18at 05:28; Start 03/26/18 at 16:45 Lorazepam (Ativan) 2 mg PRN Q15MIN PRN IV ; Start 03/26/18 at 16:45; Status UNV Lorazepam (Ativan) 4 mg PRN Q15MIN PRN IV ; Start 03/26/18 at 16:45; Status UNV Pantoprazole Sodium (PROTONIX VIAL for IV PUSH) 40 mg DAILYAC IVP ; Start at 07:30; Status UNV Enoxaparin Sodium (Lovenox 40mg Syringe) 40 mg Q24H SQ Last administered on 04/14/18at 21:01; Start 03/26/18 at 21:00 Albuterol Sulfate (Ventolin Neb Soln) 2.5 mg PRN Q2HRS PRN NEB SHORTNESS OF BREATH Last administered on 03/29/18at 04:12; Start 03/26/18 at 17:00; Stop 03/30 at 13:29; Status DC Non-Formulary Medication (Albuterol Sulfate (Proair Hfa Inhaler)) 1 puff PRN Q4HRS PRN INH SHORTNESS OF BREATH; Start 03/26/18 at 16:45; Status UNV Non-Formulary Medication (Budesonide/ Formoterol Fumarate (Symbicort 160-4.5 Mcg Inhaler)) 2 puff BID IH ; Start 03/26/18 at 21:00; Status UNV Theophylline (Theodur) 300 mg BID PO Last administered on 03/30/18at 08:45; Start 03/26/18 at 21:00; Stop 04/02/18 at 08:50; Status DC Budesonide (Pulmicort) 0.5 mg RTBID NEB Last administered on 04/15/18at 08:05; Start 03/26/18 at 20:00 Albuterol Sulfate (Ventolin Neb Soln) 2.5 mg RTQID NEB Last administered on at 12:28; Start 03/26/18 at 20:00; Stop 03/30/18 at 13:24; Status DC Sodium Chloride 1,000 ml @ 1,000 mls/hr 1X ONCE IV Last administered on at 12:23; Start 03/27/18 at 12:15; Stop 03/27/18 at 13:14; Status DC Sodium Chloride 1,000 ml @ 1,000 mls/hr 1X ONCE IV Last administered on at 13:05; Start 03/27/18 at 12:15; Stop 03/27/18 at 13:14; Status DC Sodium Chloride 1,000 ml @ 1,000 mls/hr 1X ONCE IV Last administered on at 14:11; Start 03/27/18 at 12:15; Stop 03/27/18 at 13:14; Status DC Sodium Chloride 136 ml @ 500 mls/hr 1X ONCE IV Last administered on at 12:15; Start 03/27/18 at 12:15; Stop 03/27/18 at 12:31; Status DC Piperacillin Sod/ Tazobactam Sod 3.375 gm/Sodium Chloride 50 ml @ 100 mls/hr Q6HRS IV Last administered on 03/31/18at 12:16; Start 03/27/18 at 16:00; Stop at 13:38; Status DC Morphine Sulfate (Morphine Sulfate) 2 mg PRN Q2HR PRN IV PAIN Last administered on 03/31/18at 10:42; Start 03/27/18 at 16:45; Stop 04/12/18 at 12:37 ; Status DC Ondansetron HCl (Zofran) 4 mg PRN Q6HRS PRN IV NAUSEA/VOMITING 1ST CHOICE Last administered on 04/14/18at 19:36; Start 03/27/18 at 16:45 Sodium Chloride 1,000 ml @ 125 mls/hr Q8H IV Last administered on 03/29/18at 10 :14; Start 03/27/18 at 17:45; Stop 03/29/18 at 14:21; Status DC Diazepam (Valium) 5 mg PRN Q2HR PRN PO Agitation/Alcohol withdraw Last administered on 04/12/18at 23:24; Start 03/29/18 at 01:45 Belladonna Alkaloids/Opium (B & O) 1 supp PRN Q12HR PRN PA BLADDER SPASM Last administered on 03/29/18at 02:58; Start 03/29/18 at 01:45 Dexmedetomidine HCl 200 mcg/ Sodium Chloride 50 ml @ 0 mls/hr CONT PRN IV PER PROTOCOL Last administered on 04/09/18at 07:41; Start 03/29/18 at 08:30; Stop at 07:53; Status DC Sodium Chloride 500 ml @ 500 mls/hr 1X PRN PRN IV SEE COMMENTS; Start at 08:30 Atropine Sulfate (ATROPINE 0.5mg SYRINGE) 0.5 mg PRN Q5MIN PRN IV SEE COMMENTS ; Start 03/29/18 at 08:30 Potassium Chloride (Klor-Con) 40 meq 1X ONCE PO Last administered on at 14:25; Start 03/29/18 at 13:15; Stop 03/29/18 at 13:16; Status DC Potassium Chloride/Sodium Chloride 1,000 ml @ 75 mls/hr [id number] IV Last administered on 04/01/18at 08:47; Start 03/29/18 at 14:15; Stop 04/01/18 at 13:39 ; Status DC Pantoprazole Sodium (Protonix) 40 mg DAILYAC PO ; Start 03/31/18 at 07:30; Stop 03/31/18 at 11:32; Status DC Albuterol Sulfate (Ventolin Neb Soln) 2.5 mg PRN Q4HRS PRN NEB WHEEZING Last administered on 04/12/18at 19:21; Start 03/30/18 at 13:30 Micafungin Sodium 100 mg/Dextrose 100 ml @ 100 mls/hr Q24H IV Last administered on 04/05/18at 15:07; Start 03/30/18 at 15:00; Stop 04/06/18 at 08:05 ; Status DC Linezolid/Dextrose 300 ml @ 300 mls/hr Q12HR IV Last administered on at 21:33; Start 03/30/18 at 14:00; Stop 04/06/18 at 08:05; Status DC Olanzapine (ZyPREXA IM) 10 mg PRN Q8HRS PRN IM ANXIETY / AGITATION; Start 03/30 at 14:00; Stop 04/07/18 at 14:49; Status DC Labetalol HCl (Normodyne Iv Push) 20 mg PRN Q2HR PRN IVP GIVE FOR SBP > 180 DBP >110 Last administered on 04/10/18at 02:51; Start 03/30/18 at 17:15 Acetaminophen (Tylenol Supp) 650 mg PRN Q6HRS PRN PA MILD PAIN / TEMP Last administered on 03/31/18at 15:02; Start 03/30/18 at 17:15 Iohexol (Omnipaque 300 Mg/ml) 75 ml 1X ONCE IV ; Start 03/31/18 at 09:15; Stop 03/31/18 at 09:16; Status DC Info (CONTRAST GIVEN -- Rx MONITORING) 1 each PRN DAILY PRN MC SEE COMMENTS; Start 03/31/18 at 09:15; Stop 04/02/18 at 09:14; Status DC Iohexol (Omnipaque 300 Mg/ml) 75 ml 1X ONCE IV Last administered on 03/31/18at 10:29; Start 03/31/18 at 10:00; Stop 03/31/18 at 10:04; Status DC Fentanyl Citrate 30 ml @ 0 mls/hr CONT PRN IV PER PROTOCOL Last administered on 04/08/18at 13:59; Start 03/31/18 at 11:00; Stop 04/11/18 at 08:11; Status DC Lorazepam (Ativan) 2 mg STK-MED ONCE .ROUTE ; Start 03/31/18 at 11:02; Stop at 11:03; Status DC Vecuronium [place] (Norcuron Bolus) 10 mg STK-MED ONCE IV ; Start 03/31/18 at 11 :05; Stop 03/31/18 at 11:06; Status DC Propofol 100 ml @ As Directed STK-MED ONCE IV ; Start 03/31/18 at 11:08; Stop 03/31/18 at 11:09; Status DC Vecuronium [place] (Norcuron Bolus) 10 mg STK-MED ONCE IV ; Start 03/31/18 at 11 :08; Stop 03/31/18 at 11:10; Status DC Succinylcholine Chloride (Anectine) 200 mg 1X ONCE IV ; Start 03/31/18 at 11:30 ; Stop 03/31/18 at 11:31; Status DC Propofol 100 ml @ 0 mls/hr CONT PRN IV PER PROTOCOL Last administered on at 15:13; Start 03/31/18 at 11:30; Stop 04/11/18 at 07:52; Status DC Chlorhexidine Gluconate (Peridex) 15 ml BID MM Last administered on 04/08/18at 07:56; Start 03/31/18 at 21:00; Stop 04/10/18 at 12:08; Status DC Pantoprazole Sodium (PROTONIX VIAL for IV PUSH) 40 mg DAILYAC IVP Last administered on 04/14/18at 09:20; Start 04/01/18 at 07:30; Stop 04/14/18 at 10:37 ; Status DC Vecuronium [place] (Norcuron Bolus) 10 mg 1X ONCE IV Last administered on 03/31at 11:58; Start 03/31/18 at 12:00; Stop 03/31/18 at 12:01; Status DC Meropenem 500 mg/ Sodium Chloride 50 ml @ 100 mls/hr Q6HRS IV Last administered on 04/13/18at 05:07; Start 03/31/18 at 18:00; Stop 04/13/18 at 11:36 ; Status DC Info (Tpn Per Pharmacy) 1 each PRN DAILY PRN MC SEE COMMENTS Last administered on 04/12/18at 09:59; Start 03/31/18 at 14:00; Stop 04/12/18 at 12:31; Status DC Sodium Chloride 45 meq/Sodium Acetate 45 meq/ Potassium Chloride 50 meq/ Potassium Phosphate 13.6 mmol/Magnesium Sulfate 10 meq/ Calcium Gluconate 10 meq / Multivitamins 10 ml/Chromium/ Copper/Manganese/ Seleni/Zn 1 ml/ Folic Acid 1 mg/ Thiamine HCl 100 mg/Total Donna... 1,512 ml @ 63 mls/hr TPN CONT IV Last administered on 03/31/18at 21:41; Start 03/31/18 at 22:00; Stop 04/01/18 at 21:59; Status DC Octreotide Acetate (SandoSTATIN) 100 mcg Q8HRS SQ Last administered on at 06:14; Start 03/31/18 at 15:30; Stop 04/05/18 at 11:58; Status DC Vecuronium [place] (Norcuron Bolus) 10 mg STK-MED ONCE IV ; Start 03/31/18 at 11 :10; Stop 04/01/18 at 09:10; Status DC Lorazepam (Ativan) 2 mg STK-MED ONCE .ROUTE ; Start 03/31/18 at 11:10; Stop at 09:10; Status DC Sodium Chloride 45 meq/Sodium Acetate 45 meq/ Potassium Chloride 70 meq/ Potassium Phosphate 13.6 mmol/Magnesium Sulfate 10 meq/ Calcium Gluconate 10 meq / Multivitamins 10 ml/Chromium/ Copper/Manganese/ Seleni/Zn 1 ml/ Folic Acid 1 mg/ Thiamine HCl 100 mg/Total Donna... 1,512 ml @ 63 mls/hr TPN CONT IV Last administered on 04/01/18at 22:35; Start 04/01/18 at 22:00; Stop 04/02/18 at 21:59; Status DC Furosemide (Lasix) 20 mg 1X ONCE IVP Last administered on 04/02/18at 09:12; Start 04/02/18 at 09:30; Stop 04/02/18 at 09:31; Status DC Sodium Chloride 45 meq/Sodium Acetate 45 meq/ Potassium Chloride 70 meq/ Potassium Phosphate 13.6 mmol/Magnesium Sulfate 10 meq/ Calcium Gluconate 10 meq / Multivitamins 10 ml/Chromium/ Copper/Manganese/ Seleni/Zn 1 ml/ Folic Acid 1 mg/ Thiamine HCl 100 mg/Total Donna... 1,512 ml @ 63 mls/hr TPN CONT IV Last administered on 04/02/18at 22:18; Start 04/02/18 at 22:00; Stop 04/03/18 at 21:59; Status DC Multi-Ingred Cream/Lotion/Oil/ Oint (Artificial Tears Eye Ointment) 1 rosemary Q12HR OU Last administered on 04/08/18at 07:56; Start 04/02/18 at 14:00; Stop at 08:12; Status DC Sodium Chloride 45 meq/Sodium Acetate 45 meq/ Potassium Chloride 70 meq/ Potassium Phosphate 13.6 mmol/Magnesium Sulfate 10 meq/ Calcium Gluconate 10 meq / Multivitamins 10 ml/Chromium/ Copper/Manganese/ Seleni/Zn 1 ml/ Folic Acid 1 mg/ Thiamine HCl 100 mg/Total Donna... 1,512 ml @ 63 mls/hr TPN CONT IV Last administered on 04/03/18at 21:11; Start 04/03/18 at 22:00; Stop 04/04/18 at 21:59; Status DC Sodium Chloride 60 meq/Sodium Acetate 50 meq/ Potassium Chloride 70 meq/ Potassium Phosphate 13.6 mmol/Magnesium Sulfate 10 meq/ Calcium Gluconate 10 meq / Multivitamins 10 ml/Chromium/ Copper/Manganese/ Seleni/Zn 1 ml/ Folic Acid 1 mg/ Thiamine HCl 100 mg/Total Donna... 1,512 ml @ 63 mls/hr TPN CONT IV Last administered on 04/04/18at 21:40; Start 04/04/18 at 22:00; Stop 04/05/18 at 21:59; Status DC Sodium Chloride 50 meq/Sodium Acetate 50 meq/ Potassium Chloride 70 meq/ Potassium Phosphate 13.6 mmol/Magnesium Sulfate 10 meq/ Calcium Gluconate 10 meq / Multivitamins 10 ml/Chromium/ Copper/Manganese/ Seleni/Zn 1 ml/ Folic Acid 1 mg/ Thiamine HCl 100 mg/Total Donna... 1,512 ml @ 63 mls/hr TPN CONT IV Last administered on 04/05/18at 21:34; Start 04/05/18 at 22:00; Stop 04/06/18 at 21:59; Status DC Sodium Chloride 50 meq/Sodium Acetate 50 meq/ Potassium Chloride 70 meq/ Potassium Phosphate 13.6 mmol/Magnesium Sulfate 10 meq/ Calcium Gluconate 10 meq / Multivitamins 10 ml/Chromium/ Copper/Manganese/ Seleni/Zn 1 ml/ Folic Acid 1 mg/ Thiamine HCl 100 mg/Total Donna... 1,512 ml @ 63 mls/hr TPN CONT IV Last administered on 04/06/18at 21:24; Start 04/06/18 at 22:00; Stop 04/07/18 at 21:59; Status DC Iohexol (Omnipaque 300 Mg/ml) 75 ml 1X ONCE IV Last administered on 04/06/18at 11:45; Start 04/06/18 at 11:45; Stop 04/06/18 at 11:46; Status DC Info (CONTRAST GIVEN -- Rx MONITORING) 1 each PRN DAILY PRN MC SEE COMMENTS; Start 04/06/18 at 11:45; Stop 04/08/18 at 11:44; Status DC Sodium Chloride 50 meq/Sodium Acetate 50 meq/ Potassium Chloride 65 meq/ Potassium Phosphate 13.6 mmol/Magnesium Sulfate 10 meq/ Calcium Gluconate 10 meq / Multivitamins 10 ml/Chromium/ Copper/Manganese/ Seleni/Zn 1 ml/ Folic Acid 1 mg/ Thiamine HCl 100 mg/Total Donna... 1,512 ml @ 63 mls/hr TPN CONT IV Last administered on 04/07/18at 21:55; Start 04/07/18 at 22:00; Stop 04/08/18 at 21:59; Status DC Olanzapine (ZyPREXA IM) 10 mg Q8HRS PRN IM ANXIETY / AGITATION; Start 04/07/18 at 15:00; Stop 04/07/18 at 15:00; Status DC Olanzapine (ZyPREXA IM) 10 mg Q8HRS PRN IM AGITATION; Start 04/07/18 at 15:00; Stop 04/07/18 at 15:23; Status DC Olanzapine (ZyPREXA IM) 10 mg Q8HRS IM Last administered on 04/08/18at 05:50; Start 04/07/18 at 15:00; Stop 04/08/18 at 12:44; Status DC Sodium Chloride 50 meq/Sodium Acetate 50 meq/ Potassium Chloride 65 meq/ Potassium Phosphate 13.6 mmol/Magnesium Sulfate 10 meq/ Multivitamins 10 ml/ Chromium/ Copper/Manganese/ Seleni/Zn 1 ml/ Folic Acid 1 mg/ Thiamine HCl 100 mg /Total Parenteral Nutrition/Amino Acids/Dextrose 1,512 ml @ 63 mls/hr TPN CONT IV Last administered on 04/08/18at 21:56; Start 04/08/18 at 22:00; Stop at 21:59; Status DC Haloperidol Lactate (Haldol Inj) 10 mg Q8HRS IV Last administered on 04/15/18at 05:13; Start 04/08/18 at 14:00; Stop 04/15/18 at 08:07; Status DC Diphenhydramine HCl (Benadryl) 50 mg Q8HRS IVP Last administered on 04/15/18at 05:13; Start 04/08/18 at 14:00; Stop 04/15/18 at 08:05; Status DC Sodium Chloride 50 meq/Sodium Acetate 50 meq/ Potassium Chloride 65 meq/ Potassium Phosphate 13.6 mmol/Magnesium Sulfate 10 meq/ Multivitamins 10 ml/ Chromium/ Copper/Manganese/ Seleni/Zn 1 ml/ Folic Acid 1 mg/ Thiamine HCl 100 mg /Total Parenteral Nutrition/Amino Acids/Dextro... 1,492 ml @ 62.167 mls/ hr TPN CONT IV Last administered on 04/09/18at 21:46; Start 04/09/18 at 22:00; Stop 04/10/18 at 21:59; Status DC Scopolamine (Transderm-Scop) 1 patch Q3DAYS TD Last administered on 04/10/18at 01:00; Start 04/10/18 at 01:00; Stop 04/12/18 at 07:25; Status DC Prochlorperazine Edisylate (Compazine) 10 mg PRN Q6HRS PRN IV NAUSEA/VOMITING 2ND CHOICE Last administered on 04/10/18at 05:45; Start 04/10/18 at 05:30 Sodium Chloride 50 meq/Sodium Acetate 50 meq/ Potassium Chloride 65 meq/ Potassium Phosphate 13.6 mmol/Magnesium Sulfate 10 meq/ Multivitamins 10 ml/ Chromium/ Copper/Manganese/ Seleni/Zn 1 ml/ Folic Acid 1 mg/ Thiamine HCl 100 mg /Total Parenteral Nutrition/Amino Acids/Dextro... 1,492 ml @ 62.167 mls/ hr TPN CONT IV Last administered on 04/10/18at 21:37; Start 04/10/18 at 22:00; Stop 04/11/18 at 21:59; Status DC Sodium Chloride 50 meq/Sodium Acetate 50 meq/ Potassium Chloride 65 meq/ Potassium Phosphate 13.6 mmol/Magnesium Sulfate 10 meq/ Multivitamins 10 ml/ Chromium/ Copper/Manganese/ Seleni/Zn 1 ml/ Folic Acid 1 mg/ Thiamine HCl 100 mg /Total Parenteral Nutrition/Amino Acids/Dextro... 1,512 ml @ 63 mls/hr TPN CONT IV Last administered on 04/11/18at 22:10; Start 04/11/18 at 22:00; Stop at 21:59; Status DC Sodium Chloride 50 meq/Sodium Acetate 50 meq/ Potassium Chloride 65 meq/ Potassium Phosphate 13.6 mmol/Magnesium Sulfate 10 meq/ Multivitamins 10 ml/ Chromium/ Copper/Manganese/ Seleni/Zn 1 ml/ Folic Acid 1 mg/ Thiamine HCl 100 mg /Total Parenteral Nutrition/Amino Acids/Dextro... 1,512 ml @ 63 mls/hr TPN CONT IV ; Start 04/12/18 at 22:00; Stop 04/12/18 at 22:00; Status DC Morphine Sulfate (Morphine Sulfate) 2 mg PRN Q4HRS PRN IV PAIN Last administered on 04/14/18at 17:29; Start 04/12/18 at 12:45 Pantoprazole Sodium (Protonix) 40 mg DAILYAC PO ; Start 04/15/18 at 07:30 Diphenhydramine HCl (Benadryl) 50 mg Q8HRS PO ; Start 04/15/18 at 14:00 Haloperidol (Haldol) 10 mg Q8HRS PO ; Start 04/15/18 at 14:00 Active Scripts Active Diazepam 5 Mg Tablet 5 Mg PO DAILY Reported Proair Hfa Inhaler (Albuterol Sulfate) 8.5 Gm Hfa.aer.ad 1 Puff INH PRN Q4HRS PRN Duoneb 0.5-3(2.5) Mg/3 Ml (Albuterol/Ipratropium) 3 Ml Ampul.neb 3 Ml NEB Q2HR PRN Symbicort 160-4.5 Mcg Inhaler (Budesonide/Formoterol Fumarate) 10.2 Gm Hfa.aer.ad 2 Puff IH BID Prilosec Otc (Omeprazole Magnesium) 20 Mg Tablet.dr 1 Tab PO DAILY Theophylline (Theophylline Anhydrous) 400 Mg Tablet.er 300 Mg PO BID Vitals/I & O Vital Sign - Last 24 Hours 04/14/18 04/14/18 04/14/18 04/14/18 11:00 13:36 14:06 15:00 Temp 98.3 97.9 98.3 97.9 Pulse 100 85 Resp 18 20 18 B/P (MAP) 134/99 (111) 143/94 (110) Pulse Ox 93 96 O2 Delivery Room Air Room Air Room Air Room Air 04/14/18 04/14/18 04/14/18 04/14/18 17:29 17:59 19:00 19:10 Temp 96.6 96.6 Pulse 96 Resp 20 20 18 B/P (MAP) 130/81 (97) Pulse Ox 95 O2 Delivery Room Air Room Air Room Air Room Air 04/14/18 04/14/18 04/15/18 04/15/18 19:52 23:00 02:58 07:00 Temp 97.9 98.1 98.6 97.9 98.1 98.6 Pulse 93 100 92 Resp 18 18 17 B/P (MAP) 138/91 (107) 117/58 (77) 137/82 (100) Pulse Ox 97 95 93 O2 Delivery Room Air Room Air Room Air Room Air 04/15/18 08:06 Pulse Ox 96 O2 Delivery Room Air Intake and Output 04/14/18 04/14/18 04/15/18 15:00 23:00 07:00 Intake Total 480 ml 240 ml Balance 480 ml 240 ml WILMAR OSBORN MD Apr 15, 2018 09:33
[2018-04-15] MEDS: PANTOPRAZOLE 40 MG TABLET.DR. PO SCH (09:35)
[2018-04-15 11:00] VITALS: BP 139/75
[2018-04-15] MEDS: diazePAM 5 MG TABLET PO PRN ×3 (12:46→20:31)
--- NOTE | 2018-04-15 13:25 | PDOC ---
Subjective: Subjective: Epigastric pain after eating - stable. Objective: Objective: Reviewed other notes. Vital Signs: Vital Signs Date Time Temp Pulse Resp B/P (MAP) Pulse Ox O2 Delivery O2 Flow Rate FiO2 04/15/18 11:00 95.7 117 17 139/75 (96) 93 Room Air 95.7 PE: GEN: NAD, up to chair - ate ~50% of lunch LUNGS: CTAB HEART: RRR ABD: mild epigastric discomfort NEURO/PSYCH: A & O 3, tremulous A/P: Pancreatitis/alcohol withdrawal, anemia -- Continue PPI, supportive care. MESSI GORE Apr 15, 2018 13:25
[2018-04-15] MEDS ORDERED: HALOPERIDOL 5 MG TABLET. PO SCH (14:00)
[2018-04-15] MEDS: diphenhydrAMINE HCL 25 MG CAPSULE PO SCH ×2 (14:23→20:31)
[2018-04-15 15:00] VITALS: BP 134/85
[2018-04-15] MEDS: MORPHINE SULFATE 2 MG/ML VIAL. IV PRN (18:16)
[2018-04-15 19:00] VITALS: BP 143/91
[2018-04-15] MEDS: HALOPERIDOL 5 MG TABLET. PO SCH (20:31)
[2018-04-15] MEDS: ENOXAPARIN 40 MG/0.4 ML SYRINGE. SQ SCH (20:34)
[2018-04-15 23:00] VITALS: BP 128/84
[2018-04-16 03:00] VITALS: BP 137/87
[2018-04-16] MEDS: diphenhydrAMINE HCL 25 MG CAPSULE PO SCH ×3 (04:58→20:15)
[2018-04-16] MEDS: diazePAM 5 MG TABLET PO PRN (04:58)
[2018-04-16 07:00] VITALS: BP 139/82
[2018-04-16] MEDS: PANTOPRAZOLE 40 MG TABLET.DR. PO SCH (07:48)
[2018-04-16] MEDS: BUDESONIDE 0.5 MG/2 ML NEBU. NEB SCH ×2 (07:53→20:21)
[2018-04-16] MEDS: HALOPERIDOL 5 MG TABLET. PO SCH ×2 (09:22→20:02)
[2018-04-16] MEDS: MORPHINE SULFATE 2 MG/ML VIAL. IV PRN ×3 (09:24→20:03)
--- NOTE | 2018-04-16 09:26 | PDOC ---
PROGRESS NOTES Chief Complaint Chief Complaint Presented with Abd pain N/V and pancreatitis Today he is diaphoretic, trembling, appears agitated does not look well today has passed swallow test, started diet, Tolerating PO w/o n/v or abd pain. Ate eggs this am Says stooled yesterday. Wants connor out and LIJ removed. Not OOB w/o assistance. Out of ICU now, still recovering. History of Present Illness History of Present Illness Acute Pancreatitis Alcohol abuse and withdrawal AMS metabolic encephalopathy with alcohol withdrawal Severe agitation with homocide ideation requiring sedation and intubation 03/31 Acute hypoxic resp failure h/o Asthma GERD HTN Fever - better - likely from pancreatitis/occlusive thrombus vs other, cult nonrevealing, resolving. Nml procalcitonin 04/06. ID D/c'd Micafungin and linezolid ( 03/30- 04/06 ) with neg cults and a week of treatment Morbid obesity Leukocytosis resolving Hepatic lesions on CT ZAIRA - improved Lung infiltrates likely pulm venous congestion Occlusive thrombus Rt Cephalic vein Rash LUE - mild off TPN off Merrem Ambulate today again, he is very weak, likely will need skilled services on d/c Removed Connor Removed RIJ, placed PIV Cont to monitor LUE rash GI following Cont po - meds changed to PO yesterday, will give IV ativan Vitals Vitals Vital Signs Date Time Temp Pulse Resp B/P (MAP) Pulse Ox O2 Delivery O2 Flow Rate FiO2 04/16/18 07:54 Room Air 04/16/18 03:00 97.9 86 137/87 (104) 93 2.0 97.9 04/15/18 23:00 17 Physical Exam Physical Exam GENERAL: Laying in the bed, NAD LUNGS: CTAB CV: S1 S2 ABD: Obese, mildly distended, BS +, NT : Connor out EXT: No gross edema or cyanosis SKIN: LUE biceps area with mild rash - fading RIJ clean - out PIV General: Alert, Cooperative, No acute distress Heart: Regular rate, Normal S1, Normal S2 Lungs: Clear, Other Abdomen: Soft, No masses Extremities: No cyanosis, No edema Skin: No rashes, No breakdown Review of Systems Review of Systems abd pain after eating this AM, epigastric pain Assessment and Plan Assessmemt and Plan Problems Medical Problems: (1) Alcoholic pancreatitis Status: Acute (2) ETOH abuse Status: Acute Comment Review of Relevant I have reviewed the following items wali (where applicable) has been applied. Labs Microbiology 03/31/18 Blood Culture - Final, Complete NO GROWTH AFTER 5 DAYS Medications Current Medications Multivitamins 10 ml/Thiamine HCl 100 mg/Folic Acid 1 mg/Sodium Chloride 1,011.2 ml @ 1,000.088 mls/hr 1X ONCE IV Last administered on 03/26/18at 15:07; Start 03/26/18 at 14:00; Stop 03/26/18 at 15:00; Status DC Ondansetron HCl (Zofran) 4 mg 1X ONCE IV Last administered on 03/26/18at 14:13 ; Start 03/26/18 at 14:00; Stop 03/26/18 at 14:10; Status DC Pantoprazole Sodium (PROTONIX VIAL for IV PUSH) 40 mg 1X ONCE IVP Last administered on 03/26/18at 14:13; Start 03/26/18 at 14:00; Stop 03/26/18 at 14:10 ; Status DC Pantoprazole Sodium (PROTONIX VIAL for IV PUSH) 40 mg STK-MED ONCE IVP ; Start 03/26/18 at 14:10; Stop 03/26/18 at 14:11; Status DC Ondansetron HCl (Zofran) 4 mg STK-MED ONCE .ROUTE ; Start 03/26/18 at 14:10; Stop 03/26/18 at 14:11; Status DC Iohexol (Omnipaque 300 Mg/ml) 75 ml 1X ONCE IV Last administered on 03/26/18at 14:38; Start 03/26/18 at 14:45; Stop 03/26/18 at 14:46; Status DC Iohexol (Omnipaque 300 Mg/ml) 100 ml STK-MED ONCE .ROUTE ; Start 03/26/18 at 14: 38; Stop 03/26/18 at 14:39; Status DC Info (CONTRAST GIVEN -- Rx MONITORING) 1 each PRN DAILY PRN MC SEE COMMENTS; Start 03/26/18 at 14:45; Stop 03/28/18 at 14:44; Status DC Ondansetron HCl (Zofran) 4 mg 1X ONCE IV Last administered on 03/26/18at 15:08 ; Start 03/26/18 at 15:00; Stop 03/26/18 at 15:01; Status DC Morphine Sulfate (Morphine Sulfate) 5 mg 1X ONCE IV Last administered on at 15:09; Start 03/26/18 at 15:00; Stop 03/26/18 at 15:01; Status DC Ondansetron HCl (Zofran) 4 mg PRN Q8HRS PRN IV NAUSEA/VOMITING Last administered on 03/27/18at 12:22; Start 03/26/18 at 15:15; Stop 03/27/18 at 15:14 ; Status DC Morphine Sulfate (Morphine Sulfate) 4 mg PRN Q2HR PRN IV PAIN Last administered on 03/27/18at 15:12; Start 03/26/18 at 15:15; Stop 03/27/18 at 15:14 ; Status DC Multivitamins 10 ml/Thiamine HCl 100 mg/Folic Acid 1 mg/Sodium Chloride 1,011.2 ml @ 100 mls/ hr DAILY IV Last administered on 03/30/18at 07:52; Start at 16:00; Stop 03/30/18 at 19:07; Status DC Lorazepam (Ativan) 2 mg PRN Q1HR PRN IV For CIWA 8-14 Last administered on 03/26at 15:59; Start 03/26/18 at 15:15; Stop 03/26/18 at 16:43; Status DC Sodium Chloride 1,000 ml @ 125 mls/hr 1X ONCE IV Last administered on at 02:10; Start 03/26/18 at 15:15; Stop 03/26/18 at 23:14; Status DC Pantoprazole Sodium (PROTONIX VIAL for IV PUSH) 40 mg DAILYAC IVP Last administered on 03/30/18at 07:52; Start 03/27/18 at 07:30; Stop 03/30/18 at 10:52 ; Status DC Multivitamins 10 ml/Thiamine HCl 100 mg/Folic Acid 1 mg/Sodium Chloride 1,011.2 ml @ 100 mls/ hr DAILY IV ; Start 03/27/18 at 09:00; Stop 03/31/18 at 19:07; Status UNV Multivitamins (Thera M Plus) 1 tab DAILY PO ; Start 03/31/18 at 09:00; Stop at 14:18; Status DC Folic Acid (Folic Acid) 1 mg DAILY PO ; Start 03/31/18 at 09:00; Stop 03/31/18 at 14:18; Status DC Thiamine HCl 100 mg/Dextrose 51 ml @ 100 mls/hr DAILY IV ; Start 03/27/18 at 09 :00; Stop 03/31/18 at 09:31; Status UNV Lorazepam (Ativan) 2 mg Q6H PO Last administered on 03/26/18at 22:19; Start at 17:00; Stop 03/27/18 at 01:47; Status DC Lorazepam (Ativan) 4 mg PRN Q1HR PRN PO For CIWA 8-14; Start 03/26/18 at 16:45 Lorazepam (Ativan) 2 mg PRN Q1HR PRN IV For CIWA 8-14 Last administered on 04/15at 09:35; Start 03/26/18 at 16:45 Lorazepam (Ativan) 4 mg PRN Q1HR PRN IV For CIWA 15 or greater Last administered on 04/09/18at 14:51; Start 03/26/18 at 16:45 Haloperidol Lactate (Haldol Inj) 5 mg PRN Q4HRS PRN IVP Hallucinatns,Confusn, Delirium Last administered on 04/06/18at 11:21; Start 03/26/18 at 16:45 Diphenhydramine HCl (Benadryl) 25 mg PRN Q15MIN PRN IVP EPS symptoms 2'Haldol admin Last administered on 03/29/18at 08:25; Start 03/26/18 at 16:45 Clonidine HCl (Catapres) 0.1 mg PRN Q1HR PRN PO SBP > 180 or DBP > 100, MRX3 Last administered on 03/27/18at 05:28; Start 03/26/18 at 16:45 Lorazepam (Ativan) 2 mg PRN Q15MIN PRN IV ; Start 03/26/18 at 16:45; Status UNV Lorazepam (Ativan) 4 mg PRN Q15MIN PRN IV ; Start 03/26/18 at 16:45; Status UNV Pantoprazole Sodium (PROTONIX VIAL for IV PUSH) 40 mg DAILYAC IVP ; Start at 07:30; Status UNV Enoxaparin Sodium (Lovenox 40mg Syringe) 40 mg Q24H SQ Last administered on 04/15/18at 20:34; Start 03/26/18 at 21:00 Albuterol Sulfate (Ventolin Neb Soln) 2.5 mg PRN Q2HRS PRN NEB SHORTNESS OF BREATH Last administered on 03/29/18at 04:12; Start 03/26/18 at 17:00; Stop 03/30 at 13:29; Status DC Non-Formulary Medication (Albuterol Sulfate (Proair Hfa Inhaler)) 1 puff PRN Q4HRS PRN INH SHORTNESS OF BREATH; Start 03/26/18 at 16:45; Status UNV Non-Formulary Medication (Budesonide/ Formoterol Fumarate (Symbicort 160-4.5 Mcg Inhaler)) 2 puff BID IH ; Start 03/26/18 at 21:00; Status UNV Theophylline (Theodur) 300 mg BID PO Last administered on 03/30/18at 08:45; Start 03/26/18 at 21:00; Stop 04/02/18 at 08:50; Status DC Budesonide (Pulmicort) 0.5 mg RTBID NEB Last administered on 04/16/18at 07:53; Start 03/26/18 at 20:00 Albuterol Sulfate (Ventolin Neb Soln) 2.5 mg RTQID NEB Last administered on at 12:28; Start 03/26/18 at 20:00; Stop 03/30/18 at 13:24; Status DC Sodium Chloride 1,000 ml @ 1,000 mls/hr 1X ONCE IV Last administered on at 12:23; Start 03/27/18 at 12:15; Stop 03/27/18 at 13:14; Status DC Sodium Chloride 1,000 ml @ 1,000 mls/hr 1X ONCE IV Last administered on at 13:05; Start 03/27/18 at 12:15; Stop 03/27/18 at 13:14; Status DC Sodium Chloride 1,000 ml @ 1,000 mls/hr 1X ONCE IV Last administered on at 14:11; Start 03/27/18 at 12:15; Stop 03/27/18 at 13:14; Status DC Sodium Chloride 136 ml @ 500 mls/hr 1X ONCE IV Last administered on at 12:15; Start 03/27/18 at 12:15; Stop 03/27/18 at 12:31; Status DC Piperacillin Sod/ Tazobactam Sod 3.375 gm/Sodium Chloride 50 ml @ 100 mls/hr Q6HRS IV Last administered on 03/31/18at 12:16; Start 03/27/18 at 16:00; Stop at 13:38; Status DC Morphine Sulfate (Morphine Sulfate) 2 mg PRN Q2HR PRN IV PAIN Last administered on 03/31/18at 10:42; Start 03/27/18 at 16:45; Stop 04/12/18 at 12:37 ; Status DC Ondansetron HCl (Zofran) 4 mg PRN Q6HRS PRN IV NAUSEA/VOMITING 1ST CHOICE Last administered on 04/14/18at 19:36; Start 03/27/18 at 16:45 Sodium Chloride 1,000 ml @ 125 mls/hr Q8H IV Last administered on 03/29/18at 10 :14; Start 03/27/18 at 17:45; Stop 03/29/18 at 14:21; Status DC Diazepam (Valium) 5 mg PRN Q2HR PRN PO Agitation/Alcohol withdraw Last administered on 04/16/18at 04:58; Start 03/29/18 at 01:45 Belladonna Alkaloids/Opium (B & O) 1 supp PRN Q12HR PRN SD BLADDER SPASM Last administered on 03/29/18at 02:58; Start 03/29/18 at 01:45 Dexmedetomidine HCl 200 mcg/ Sodium Chloride 50 ml @ 0 mls/hr CONT PRN IV PER PROTOCOL Last administered on 04/09/18at 07:41; Start 03/29/18 at 08:30; Stop at 07:53; Status DC Sodium Chloride 500 ml @ 500 mls/hr 1X PRN PRN IV SEE COMMENTS; Start at 08:30 Atropine Sulfate (ATROPINE 0.5mg SYRINGE) 0.5 mg PRN Q5MIN PRN IV SEE COMMENTS ; Start 03/29/18 at 08:30 Potassium Chloride (Klor-Con) 40 meq 1X ONCE PO Last administered on at 14:25; Start 03/29/18 at 13:15; Stop 03/29/18 at 13:16; Status DC Potassium Chloride/Sodium Chloride 1,000 ml @ 75 mls/hr [id number] IV Last administered on 04/01/18at 08:47; Start 03/29/18 at 14:15; Stop 04/01/18 at 13:39 ; Status DC Pantoprazole Sodium (Protonix) 40 mg DAILYAC PO ; Start 03/31/18 at 07:30; Stop 03/31/18 at 11:32; Status DC Albuterol Sulfate (Ventolin Neb Soln) 2.5 mg PRN Q4HRS PRN NEB WHEEZING Last administered on 04/12/18at 19:21; Start 03/30/18 at 13:30 Micafungin Sodium 100 mg/Dextrose 100 ml @ 100 mls/hr Q24H IV Last administered on 04/05/18at 15:07; Start 03/30/18 at 15:00; Stop 04/06/18 at 08:05 ; Status DC Linezolid/Dextrose 300 ml @ 300 mls/hr Q12HR IV Last administered on at 21:33; Start 03/30/18 at 14:00; Stop 04/06/18 at 08:05; Status DC Olanzapine (ZyPREXA IM) 10 mg PRN Q8HRS PRN IM ANXIETY / AGITATION; Start 03/30 at 14:00; Stop 04/07/18 at 14:49; Status DC Labetalol HCl (Normodyne Iv Push) 20 mg PRN Q2HR PRN IVP GIVE FOR SBP > 180 DBP >110 Last administered on 04/10/18at 02:51; Start 03/30/18 at 17:15 Acetaminophen (Tylenol Supp) 650 mg PRN Q6HRS PRN SD MILD PAIN / TEMP Last administered on 03/31/18at 15:02; Start 03/30/18 at 17:15 Iohexol (Omnipaque 300 Mg/ml) 75 ml 1X ONCE IV ; Start 03/31/18 at 09:15; Stop 03/31/18 at 09:16; Status DC Info (CONTRAST GIVEN -- Rx MONITORING) 1 each PRN DAILY PRN MC SEE COMMENTS; Start 03/31/18 at 09:15; Stop 04/02/18 at 09:14; Status DC Iohexol (Omnipaque 300 Mg/ml) 75 ml 1X ONCE IV Last administered on 03/31/18at 10:29; Start 03/31/18 at 10:00; Stop 03/31/18 at 10:04; Status DC Fentanyl Citrate 30 ml @ 0 mls/hr CONT PRN IV PER PROTOCOL Last administered on 04/08/18at 13:59; Start 03/31/18 at 11:00; Stop 04/11/18 at 08:11; Status DC Lorazepam (Ativan) 2 mg STK-MED ONCE .ROUTE ; Start 03/31/18 at 11:02; Stop at 11:03; Status DC Vecuronium [place] (Norcuron Bolus) 10 mg STK-MED ONCE IV ; Start 03/31/18 at 11 :05; Stop 03/31/18 at 11:06; Status DC Propofol 100 ml @ As Directed STK-MED ONCE IV ; Start 03/31/18 at 11:08; Stop 03/31/18 at 11:09; Status DC Vecuronium [place] (Norcuron Bolus) 10 mg STK-MED ONCE IV ; Start 03/31/18 at 11 :08; Stop 03/31/18 at 11:10; Status DC Succinylcholine Chloride (Anectine) 200 mg 1X ONCE IV ; Start 03/31/18 at 11:30 ; Stop 03/31/18 at 11:31; Status DC Propofol 100 ml @ 0 mls/hr CONT PRN IV PER PROTOCOL Last administered on at 15:13; Start 03/31/18 at 11:30; Stop 04/11/18 at 07:52; Status DC Chlorhexidine Gluconate (Peridex) 15 ml BID MM Last administered on 04/08/18at 07:56; Start 03/31/18 at 21:00; Stop 04/10/18 at 12:08; Status DC Pantoprazole Sodium (PROTONIX VIAL for IV PUSH) 40 mg DAILYAC IVP Last administered on 04/14/18at 09:20; Start 04/01/18 at 07:30; Stop 04/14/18 at 10:37 ; Status DC Vecuronium [place] (Norcuron Bolus) 10 mg 1X ONCE IV Last administered on 03/31at 11:58; Start 03/31/18 at 12:00; Stop 03/31/18 at 12:01; Status DC Meropenem 500 mg/ Sodium Chloride 50 ml @ 100 mls/hr Q6HRS IV Last administered on 04/13/18at 05:07; Start 03/31/18 at 18:00; Stop 04/13/18 at 11:36 ; Status DC Info (Tpn Per Pharmacy) 1 each PRN DAILY PRN MC SEE COMMENTS Last administered on 04/12/18at 09:59; Start 03/31/18 at 14:00; Stop 04/12/18 at 12:31; Status DC Sodium Chloride 45 meq/Sodium Acetate 45 meq/ Potassium Chloride 50 meq/ Potassium Phosphate 13.6 mmol/Magnesium Sulfate 10 meq/ Calcium Gluconate 10 meq / Multivitamins 10 ml/Chromium/ Copper/Manganese/ Seleni/Zn 1 ml/ Folic Acid 1 mg/ Thiamine HCl 100 mg/Total Donna... 1,512 ml @ 63 mls/hr TPN CONT IV Last administered on 03/31/18at 21:41; Start 03/31/18 at 22:00; Stop 04/01/18 at 21:59; Status DC Octreotide Acetate (SandoSTATIN) 100 mcg Q8HRS SQ Last administered on at 06:14; Start 03/31/18 at 15:30; Stop 04/05/18 at 11:58; Status DC Vecuronium [place] (Norcuron Bolus) 10 mg STK-MED ONCE IV ; Start 03/31/18 at 11 :10; Stop 04/01/18 at 09:10; Status DC Lorazepam (Ativan) 2 mg STK-MED ONCE .ROUTE ; Start 03/31/18 at 11:10; Stop at 09:10; Status DC Sodium Chloride 45 meq/Sodium Acetate 45 meq/ Potassium Chloride 70 meq/ Potassium Phosphate 13.6 mmol/Magnesium Sulfate 10 meq/ Calcium Gluconate 10 meq / Multivitamins 10 ml/Chromium/ Copper/Manganese/ Seleni/Zn 1 ml/ Folic Acid 1 mg/ Thiamine HCl 100 mg/Total Donna... 1,512 ml @ 63 mls/hr TPN CONT IV Last administered on 04/01/18at 22:35; Start 04/01/18 at 22:00; Stop 04/02/18 at 21:59; Status DC Furosemide (Lasix) 20 mg 1X ONCE IVP Last administered on 04/02/18at 09:12; Start 04/02/18 at 09:30; Stop 04/02/18 at 09:31; Status DC Sodium Chloride 45 meq/Sodium Acetate 45 meq/ Potassium Chloride 70 meq/ Potassium Phosphate 13.6 mmol/Magnesium Sulfate 10 meq/ Calcium Gluconate 10 meq / Multivitamins 10 ml/Chromium/ Copper/Manganese/ Seleni/Zn 1 ml/ Folic Acid 1 mg/ Thiamine HCl 100 mg/Total Donna... 1,512 ml @ 63 mls/hr TPN CONT IV Last administered on 04/02/18at 22:18; Start 04/02/18 at 22:00; Stop 04/03/18 at 21:59; Status DC Multi-Ingred Cream/Lotion/Oil/ Oint (Artificial Tears Eye Ointment) 1 rosemary Q12HR OU Last administered on 04/08/18at 07:56; Start 04/02/18 at 14:00; Stop at 08:12; Status DC Sodium Chloride 45 meq/Sodium Acetate 45 meq/ Potassium Chloride 70 meq/ Potassium Phosphate 13.6 mmol/Magnesium Sulfate 10 meq/ Calcium Gluconate 10 meq / Multivitamins 10 ml/Chromium/ Copper/Manganese/ Seleni/Zn 1 ml/ Folic Acid 1 mg/ Thiamine HCl 100 mg/Total Donna... 1,512 ml @ 63 mls/hr TPN CONT IV Last administered on 04/03/18at 21:11; Start 04/03/18 at 22:00; Stop 04/04/18 at 21:59; Status DC Sodium Chloride 60 meq/Sodium Acetate 50 meq/ Potassium Chloride 70 meq/ Potassium Phosphate 13.6 mmol/Magnesium Sulfate 10 meq/ Calcium Gluconate 10 meq / Multivitamins 10 ml/Chromium/ Copper/Manganese/ Seleni/Zn 1 ml/ Folic Acid 1 mg/ Thiamine HCl 100 mg/Total Donna... 1,512 ml @ 63 mls/hr TPN CONT IV Last administered on 04/04/18at 21:40; Start 04/04/18 at 22:00; Stop 04/05/18 at 21:59; Status DC Sodium Chloride 50 meq/Sodium Acetate 50 meq/ Potassium Chloride 70 meq/ Potassium Phosphate 13.6 mmol/Magnesium Sulfate 10 meq/ Calcium Gluconate 10 meq / Multivitamins 10 ml/Chromium/ Copper/Manganese/ Seleni/Zn 1 ml/ Folic Acid 1 mg/ Thiamine HCl 100 mg/Total Donna... 1,512 ml @ 63 mls/hr TPN CONT IV Last administered on 04/05/18at 21:34; Start 04/05/18 at 22:00; Stop 04/06/18 at 21:59; Status DC Sodium Chloride 50 meq/Sodium Acetate 50 meq/ Potassium Chloride 70 meq/ Potassium Phosphate 13.6 mmol/Magnesium Sulfate 10 meq/ Calcium Gluconate 10 meq / Multivitamins 10 ml/Chromium/ Copper/Manganese/ Seleni/Zn 1 ml/ Folic Acid 1 mg/ Thiamine HCl 100 mg/Total Donna... 1,512 ml @ 63 mls/hr TPN CONT IV Last administered on 04/06/18at 21:24; Start 04/06/18 at 22:00; Stop 04/07/18 at 21:59; Status DC Iohexol (Omnipaque 300 Mg/ml) 75 ml 1X ONCE IV Last administered on 04/06/18at 11:45; Start 04/06/18 at 11:45; Stop 04/06/18 at 11:46; Status DC Info (CONTRAST GIVEN -- Rx MONITORING) 1 each PRN DAILY PRN MC SEE COMMENTS; Start 04/06/18 at 11:45; Stop 04/08/18 at 11:44; Status DC Sodium Chloride 50 meq/Sodium Acetate 50 meq/ Potassium Chloride 65 meq/ Potassium Phosphate 13.6 mmol/Magnesium Sulfate 10 meq/ Calcium Gluconate 10 meq / Multivitamins 10 ml/Chromium/ Copper/Manganese/ Seleni/Zn 1 ml/ Folic Acid 1 mg/ Thiamine HCl 100 mg/Total Donna... 1,512 ml @ 63 mls/hr TPN CONT IV Last administered on 04/07/18at 21:55; Start 04/07/18 at 22:00; Stop 04/08/18 at 21:59; Status DC Olanzapine (ZyPREXA IM) 10 mg Q8HRS PRN IM ANXIETY / AGITATION; Start 04/07/18 at 15:00; Stop 04/07/18 at 15:00; Status DC Olanzapine (ZyPREXA IM) 10 mg Q8HRS PRN IM AGITATION; Start 04/07/18 at 15:00; Stop 04/07/18 at 15:23; Status DC Olanzapine (ZyPREXA IM) 10 mg Q8HRS IM Last administered on 04/08/18at 05:50; Start 04/07/18 at 15:00; Stop 04/08/18 at 12:44; Status DC Sodium Chloride 50 meq/Sodium Acetate 50 meq/ Potassium Chloride 65 meq/ Potassium Phosphate 13.6 mmol/Magnesium Sulfate 10 meq/ Multivitamins 10 ml/ Chromium/ Copper/Manganese/ Seleni/Zn 1 ml/ Folic Acid 1 mg/ Thiamine HCl 100 mg /Total Parenteral Nutrition/Amino Acids/Dextrose 1,512 ml @ 63 mls/hr TPN CONT IV Last administered on 04/08/18at 21:56; Start 04/08/18 at 22:00; Stop at 21:59; Status DC Haloperidol Lactate (Haldol Inj) 10 mg Q8HRS IV Last administered on 04/15/18at 05:13; Start 04/08/18 at 14:00; Stop 04/15/18 at 08:07; Status DC Diphenhydramine HCl (Benadryl) 50 mg Q8HRS IVP Last administered on 04/15/18at 05:13; Start 04/08/18 at 14:00; Stop 04/15/18 at 08:05; Status DC Sodium Chloride 50 meq/Sodium Acetate 50 meq/ Potassium Chloride 65 meq/ Potassium Phosphate 13.6 mmol/Magnesium Sulfate 10 meq/ Multivitamins 10 ml/ Chromium/ Copper/Manganese/ Seleni/Zn 1 ml/ Folic Acid 1 mg/ Thiamine HCl 100 mg /Total Parenteral Nutrition/Amino Acids/Dextro... 1,492 ml @ 62.167 mls/ hr TPN CONT IV Last administered on 04/09/18at 21:46; Start 04/09/18 at 22:00; Stop 04/10/18 at 21:59; Status DC Scopolamine (Transderm-Scop) 1 patch Q3DAYS TD Last administered on 04/10/18at 01:00; Start 04/10/18 at 01:00; Stop 04/12/18 at 07:25; Status DC Prochlorperazine Edisylate (Compazine) 10 mg PRN Q6HRS PRN IV NAUSEA/VOMITING 2ND CHOICE Last administered on 04/10/18at 05:45; Start 04/10/18 at 05:30 Sodium Chloride 50 meq/Sodium Acetate 50 meq/ Potassium Chloride 65 meq/ Potassium Phosphate 13.6 mmol/Magnesium Sulfate 10 meq/ Multivitamins 10 ml/ Chromium/ Copper/Manganese/ Seleni/Zn 1 ml/ Folic Acid 1 mg/ Thiamine HCl 100 mg /Total Parenteral Nutrition/Amino Acids/Dextro... 1,492 ml @ 62.167 mls/ hr TPN CONT IV Last administered on 04/10/18at 21:37; Start 04/10/18 at 22:00; Stop 04/11/18 at 21:59; Status DC Sodium Chloride 50 meq/Sodium Acetate 50 meq/ Potassium Chloride 65 meq/ Potassium Phosphate 13.6 mmol/Magnesium Sulfate 10 meq/ Multivitamins 10 ml/ Chromium/ Copper/Manganese/ Seleni/Zn 1 ml/ Folic Acid 1 mg/ Thiamine HCl 100 mg /Total Parenteral Nutrition/Amino Acids/Dextro... 1,512 ml @ 63 mls/hr TPN CONT IV Last administered on 04/11/18at 22:10; Start 04/11/18 at 22:00; Stop at 21:59; Status DC Sodium Chloride 50 meq/Sodium Acetate 50 meq/ Potassium Chloride 65 meq/ Potassium Phosphate 13.6 mmol/Magnesium Sulfate 10 meq/ Multivitamins 10 ml/ Chromium/ Copper/Manganese/ Seleni/Zn 1 ml/ Folic Acid 1 mg/ Thiamine HCl 100 mg /Total Parenteral Nutrition/Amino Acids/Dextro... 1,512 ml @ 63 mls/hr TPN CONT IV ; Start 04/12/18 at 22:00; Stop 04/12/18 at 22:00; Status DC Morphine Sulfate (Morphine Sulfate) 2 mg PRN Q4HRS PRN IV PAIN Last administered on 04/15/18at 18:16; Start 04/12/18 at 12:45 Pantoprazole Sodium (Protonix) 40 mg DAILYAC PO Last administered on 04/16/18at 07:48; Start 04/15/18 at 07:30 Diphenhydramine HCl (Benadryl) 50 mg Q8HRS PO Last administered on 04/16/18at 04 :58; Start 04/15/18 at 14:00 Haloperidol (Haldol) 10 mg Q8HRS PO ; Start 04/15/18 at 14:00; Stop 04/15/18 at 14:00; Status DC Haloperidol (Haldol) 10 mg BID PO Last administered on 04/15/18at 20:31; Start 04/15/18 at 21:00 Active Scripts Active Diazepam 5 Mg Tablet 5 Mg PO DAILY Reported Proair Hfa Inhaler (Albuterol Sulfate) 8.5 Gm Hfa.aer.ad 1 Puff INH PRN Q4HRS PRN Duoneb 0.5-3(2.5) Mg/3 Ml (Albuterol/Ipratropium) 3 Ml Ampul.neb 3 Ml NEB Q2HR PRN Symbicort 160-4.5 Mcg Inhaler (Budesonide/Formoterol Fumarate) 10.2 Gm Hfa.aer.ad 2 Puff IH BID Prilosec Otc (Omeprazole Magnesium) 20 Mg Tablet.dr 1 Tab PO DAILY Theophylline (Theophylline Anhydrous) 400 Mg Tablet.er 300 Mg PO BID Vitals/I & O Vital Sign - Last 24 Hours 04/15/18 04/15/18 04/15/18 04/15/18 11:00 15:00 18:46 19:00 Temp 95.7 97.4 97.9 95.7 97.4 97.9 Pulse 117 104 84 Resp 17 17 17 B/P (MAP) 139/75 (96) 134/85 (101) 143/91 (108) Pulse Ox 93 95 95 97 O2 Delivery Room Air Room Air Room Air Room Air O2 Flow Rate 2.0 04/15/18 04/15/18 04/15/18 04/16/18 19:59 20:24 23:00 03:00 Temp 97.9 97.9 97.9 97.9 Pulse 90 86 Resp 17 B/P (MAP) 128/84 (99) 137/87 (104) Pulse Ox 97 95 93 O2 Delivery Room Air Room Air Room Air Room Air O2 Flow Rate 2.0 04/16/18 07:54 O2 Delivery Room Air Intake and Output 04/15/18 04/15/18 04/16/18 15:00 23:00 07:00 Intake Total 900 ml Balance 900 ml WILMAR OSBORN MD Apr 16, 2018 09:26
[2018-04-16] MEDS: LIDO:MAALOX 1:1 20 ML SINGLE DOSE. PO PRN (09:36)
[2018-04-16 11:00] VITALS: BP 128/75
--- NOTE | 2018-04-16 11:24 | PDOC ---
Subjective: Subjective: Feels the same. Objective: Vital Signs: Vital Signs Date Time Temp Pulse Resp B/P (MAP) Pulse Ox O2 Delivery O2 Flow Rate FiO2 04/16/18 09:54 16 Room Air 04/16/18 08:00 2.0 04/16/18 07:00 97.7 96 139/82 (101) 96 97.7 PE: GEN: NAD LUNGS: CTAB HEART: RRR ABD: soft, vague epigastric discomfort - mild NEURO/PSYCH: A & O 3, tremulous A/P: Alcohol withdrawal and pancreatitis Post-prandial epigastric pain - likely related to above, has been on PPI -- Note GI cocktail ordered - await results, okay to use PRN. Supportive care, await DC plans. MESSI GORE Apr 16, 2018 11:24
[2018-04-16] MEDS: diphenhydrAMINE 50 MG/ML VIAL IVP PRN ×2 (14:34→20:03)
[2018-04-16] MEDS: HALOPERIDOL LACTATE 5 MG/ML VIAL. IVP PRN (14:35)
[2018-04-16 15:00] VITALS: BP 112/97
[2018-04-16 19:00] VITALS: BP 127/74
[2018-04-16] MEDS: ENOXAPARIN 40 MG/0.4 ML SYRINGE. SQ SCH (20:02)
[2018-04-16 23:00] VITALS: BP 127/70
[2018-04-17 03:00] VITALS: BP 109/74
[2018-04-17] MEDS: diphenhydrAMINE HCL 25 MG CAPSULE PO SCH ×3 (06:11→20:22)
[2018-04-17] MEDS: PANTOPRAZOLE 40 MG TABLET.DR. PO SCH (06:35)
[2018-04-17 07:00] VITALS: BP 114/73
[2018-04-17] MEDS: BUDESONIDE 0.5 MG/2 ML NEBU. NEB SCH ×2 (09:00→19:35)
[2018-04-17] MEDS: HALOPERIDOL 5 MG TABLET. PO SCH ×2 (10:46→20:22)
[2018-04-17] MEDS: LIDO:MAALOX 1:1 20 ML SINGLE DOSE. PO PRN ×3 (10:51→18:01)
[2018-04-17 11:00] VITALS: BP 140/91
--- NOTE | 2018-04-17 11:14 | PDOC ---
PROGRESS NOTES Chief Complaint Chief Complaint Presented with Abd pain N/V and pancreatitis Today he is diaphoretic, trembling, appears agitated does not look well today has passed swallow test, started diet, Tolerating PO w/o n/v or abd pain. Wants connor out and LIJ removed. Not OOB w/o assistance. \ still sweaty, weak, poor balance History of Present Illness History of Present Illness Acute Pancreatitis Alcohol abuse and withdrawal AMS metabolic encephalopathy with alcohol withdrawal Severe agitation with homocide ideation requiring sedation and intubation 03/31 Acute hypoxic resp failure h/o Asthma GERD HTN Fever - better - likely from pancreatitis/occlusive thrombus vs other, cult nonrevealing, resolving. Nml procalcitonin 04/06. ID D/c'd Micafungin and linezolid ( 03/30- 04/06 ) with neg cults and a week of treatment Morbid obesity Leukocytosis resolving Hepatic lesions on CT ZAIRA - improved Lung infiltrates likely pulm venous congestion Occlusive thrombus Rt Cephalic vein Rash LUE - mild off TPN Ambulate today again, he is very weak, likely will need skilled services on d/c Vitals Vitals Vital Signs Date Time Temp Pulse Resp B/P (MAP) Pulse Ox O2 Delivery O2 Flow Rate FiO2 04/17/18 09:02 Room Air 04/17/18 07:00 98.1 98 16 114/73 (87) 97 98.1 04/17/18 03:00 2.0 Physical Exam Physical Exam GENERAL: Laying in the bed, NAD LUNGS: CTAB CV: S1 S2 ABD: Obese, mildly distended, BS +, NT : Connor out EXT: No gross edema or cyanosis SKIN: LUE biceps area with mild rash - fading RIJ clean - out PIV General: Alert, Cooperative, No acute distress Heart: Regular rate, Normal S1, Normal S2 Lungs: Clear, Other Abdomen: Soft, No masses Extremities: No cyanosis, No edema Skin: No rashes, No breakdown Assessment and Plan Assessmemt and Plan Problems Medical Problems: (1) Alcoholic pancreatitis Status: Acute (2) ETOH abuse Status: Acute Comment Review of Relevant I have reviewed the following items wali (where applicable) has been applied. Labs Microbiology 03/31/18 Blood Culture - Final, Complete NO GROWTH AFTER 5 DAYS Medications Current Medications Multivitamins 10 ml/Thiamine HCl 100 mg/Folic Acid 1 mg/Sodium Chloride 1,011.2 ml @ 1,000.088 mls/hr 1X ONCE IV Last administered on 03/26/18at 15:07; Start 03/26/18 at 14:00; Stop 03/26/18 at 15:00; Status DC Ondansetron HCl (Zofran) 4 mg 1X ONCE IV Last administered on 03/26/18at 14:13 ; Start 03/26/18 at 14:00; Stop 03/26/18 at 14:10; Status DC Pantoprazole Sodium (PROTONIX VIAL for IV PUSH) 40 mg 1X ONCE IVP Last administered on 03/26/18at 14:13; Start 03/26/18 at 14:00; Stop 03/26/18 at 14:10 ; Status DC Pantoprazole Sodium (PROTONIX VIAL for IV PUSH) 40 mg STK-MED ONCE IVP ; Start 03/26/18 at 14:10; Stop 03/26/18 at 14:11; Status DC Ondansetron HCl (Zofran) 4 mg STK-MED ONCE .ROUTE ; Start 03/26/18 at 14:10; Stop 03/26/18 at 14:11; Status DC Iohexol (Omnipaque 300 Mg/ml) 75 ml 1X ONCE IV Last administered on 03/26/18at 14:38; Start 03/26/18 at 14:45; Stop 03/26/18 at 14:46; Status DC Iohexol (Omnipaque 300 Mg/ml) 100 ml STK-MED ONCE .ROUTE ; Start 03/26/18 at 14: 38; Stop 03/26/18 at 14:39; Status DC Info (CONTRAST GIVEN -- Rx MONITORING) 1 each PRN DAILY PRN MC SEE COMMENTS; Start 03/26/18 at 14:45; Stop 03/28/18 at 14:44; Status DC Ondansetron HCl (Zofran) 4 mg 1X ONCE IV Last administered on 03/26/18at 15:08 ; Start 03/26/18 at 15:00; Stop 03/26/18 at 15:01; Status DC Morphine Sulfate (Morphine Sulfate) 5 mg 1X ONCE IV Last administered on at 15:09; Start 03/26/18 at 15:00; Stop 03/26/18 at 15:01; Status DC Ondansetron HCl (Zofran) 4 mg PRN Q8HRS PRN IV NAUSEA/VOMITING Last administered on 03/27/18at 12:22; Start 03/26/18 at 15:15; Stop 03/27/18 at 15:14 ; Status DC Morphine Sulfate (Morphine Sulfate) 4 mg PRN Q2HR PRN IV PAIN Last administered on 03/27/18at 15:12; Start 03/26/18 at 15:15; Stop 03/27/18 at 15:14 ; Status DC Multivitamins 10 ml/Thiamine HCl 100 mg/Folic Acid 1 mg/Sodium Chloride 1,011.2 ml @ 100 mls/ hr DAILY IV Last administered on 03/30/18at 07:52; Start at 16:00; Stop 03/30/18 at 19:07; Status DC Lorazepam (Ativan) 2 mg PRN Q1HR PRN IV For CIWA 8-14 Last administered on 03/26at 15:59; Start 03/26/18 at 15:15; Stop 03/26/18 at 16:43; Status DC Sodium Chloride 1,000 ml @ 125 mls/hr 1X ONCE IV Last administered on at 02:10; Start 03/26/18 at 15:15; Stop 03/26/18 at 23:14; Status DC Pantoprazole Sodium (PROTONIX VIAL for IV PUSH) 40 mg DAILYAC IVP Last administered on 03/30/18at 07:52; Start 03/27/18 at 07:30; Stop 03/30/18 at 10:52 ; Status DC Multivitamins 10 ml/Thiamine HCl 100 mg/Folic Acid 1 mg/Sodium Chloride 1,011.2 ml @ 100 mls/ hr DAILY IV ; Start 03/27/18 at 09:00; Stop 03/31/18 at 19:07; Status UNV Multivitamins (Thera M Plus) 1 tab DAILY PO ; Start 03/31/18 at 09:00; Stop at 14:18; Status DC Folic Acid (Folic Acid) 1 mg DAILY PO ; Start 03/31/18 at 09:00; Stop 03/31/18 at 14:18; Status DC Thiamine HCl 100 mg/Dextrose 51 ml @ 100 mls/hr DAILY IV ; Start 03/27/18 at 09 :00; Stop 03/31/18 at 09:31; Status UNV Lorazepam (Ativan) 2 mg Q6H PO Last administered on 03/26/18at 22:19; Start at 17:00; Stop 03/27/18 at 01:47; Status DC Lorazepam (Ativan) 4 mg PRN Q1HR PRN PO For CIWA 8-14; Start 03/26/18 at 16:45 Lorazepam (Ativan) 2 mg PRN Q1HR PRN IV For CIWA 8-14 Last administered on 04/16 14:35; Start 03/26/18 at 16:45 Lorazepam (Ativan) 4 mg PRN Q1HR PRN IV For CIWA 15 or greater Last administered on 04/09/18at 14:51; Start 03/26/18 at 16:45 Haloperidol Lactate (Haldol Inj) 5 mg PRN Q4HRS PRN IVP Hallucinatns,Confusn, Delirium Last administered on 04/16/18 14:35; Start 03/26/18 at 16:45 Diphenhydramine HCl (Benadryl) 25 mg PRN Q15MIN PRN IVP EPS symptoms 2'Haldol admin Last administered on 04/16/18 20:03; Start 03/26/18 at 16:45 Clonidine HCl (Catapres) 0.1 mg PRN Q1HR PRN PO SBP > 180 or DBP > 100, MRX3 Last administered on 03/27/18at 05:28; Start 03/26/18 at 16:45 Lorazepam (Ativan) 2 mg PRN Q15MIN PRN IV ; Start 03/26/18 at 16:45; Status UNV Lorazepam (Ativan) 4 mg PRN Q15MIN PRN IV ; Start 03/26/18 at 16:45; Status UNV Pantoprazole Sodium (PROTONIX VIAL for IV PUSH) 40 mg DAILYAC IVP ; Start at 07:30; Status UNV Enoxaparin Sodium (Lovenox 40mg Syringe) 40 mg Q24H SQ Last administered on 04/16/18at 20:02; Start 03/26/18 at 21:00 Albuterol Sulfate (Ventolin Neb Soln) 2.5 mg PRN Q2HRS PRN NEB SHORTNESS OF BREATH Last administered on 03/29/18at 04:12; Start 03/26/18 at 17:00; Stop 03/30 at 13:29; Status DC Non-Formulary Medication (Albuterol Sulfate (Proair Hfa Inhaler)) 1 puff PRN Q4HRS PRN INH SHORTNESS OF BREATH; Start 03/26/18 at 16:45; Status UNV Non-Formulary Medication (Budesonide/ Formoterol Fumarate (Symbicort 160-4.5 Mcg Inhaler)) 2 puff BID IH ; Start 03/26/18 at 21:00; Status UNV Theophylline (Theodur) 300 mg BID PO Last administered on 03/30/18at 08:45; Start 03/26/18 at 21:00; Stop 04/02/18 at 08:50; Status DC Budesonide (Pulmicort) 0.5 mg RTBID NEB Last administered on 04/17/18at 09:00; Start 03/26/18 at 20:00 Albuterol Sulfate (Ventolin Neb Soln) 2.5 mg RTQID NEB Last administered on at 12:28; Start 03/26/18 at 20:00; Stop 03/30/18 at 13:24; Status DC Sodium Chloride 1,000 ml @ 1,000 mls/hr 1X ONCE IV Last administered on at 12:23; Start 03/27/18 at 12:15; Stop 03/27/18 at 13:14; Status DC Sodium Chloride 1,000 ml @ 1,000 mls/hr 1X ONCE IV Last administered on at 13:05; Start 03/27/18 at 12:15; Stop 03/27/18 at 13:14; Status DC Sodium Chloride 1,000 ml @ 1,000 mls/hr 1X ONCE IV Last administered on at 14:11; Start 03/27/18 at 12:15; Stop 03/27/18 at 13:14; Status DC Sodium Chloride 136 ml @ 500 mls/hr 1X ONCE IV Last administered on at 12:15; Start 03/27/18 at 12:15; Stop 03/27/18 at 12:31; Status DC Piperacillin Sod/ Tazobactam Sod 3.375 gm/Sodium Chloride 50 ml @ 100 mls/hr Q6HRS IV Last administered on 03/31/18at 12:16; Start 03/27/18 at 16:00; Stop at 13:38; Status DC Morphine Sulfate (Morphine Sulfate) 2 mg PRN Q2HR PRN IV PAIN Last administered on 03/31/18at 10:42; Start 03/27/18 at 16:45; Stop 04/12/18 at 12:37 ; Status DC Ondansetron HCl (Zofran) 4 mg PRN Q6HRS PRN IV NAUSEA/VOMITING 1ST CHOICE Last administered on 04/14/18at 19:36; Start 03/27/18 at 16:45 Sodium Chloride 1,000 ml @ 125 mls/hr Q8H IV Last administered on 03/29/18at 10 :14; Start 03/27/18 at 17:45; Stop 03/29/18 at 14:21; Status DC Diazepam (Valium) 5 mg PRN Q2HR PRN PO Agitation/Alcohol withdraw Last administered on 04/16/18at 04:58; Start 03/29/18 at 01:45 Belladonna Alkaloids/Opium (B & O) 1 supp PRN Q12HR PRN TN BLADDER SPASM Last administered on 03/29/18at 02:58; Start 03/29/18 at 01:45 Dexmedetomidine HCl 200 mcg/ Sodium Chloride 50 ml @ 0 mls/hr CONT PRN IV PER PROTOCOL Last administered on 04/09/18at 07:41; Start 03/29/18 at 08:30; Stop at 07:53; Status DC Sodium Chloride 500 ml @ 500 mls/hr 1X PRN PRN IV SEE COMMENTS; Start at 08:30 Atropine Sulfate (ATROPINE 0.5mg SYRINGE) 0.5 mg PRN Q5MIN PRN IV SEE COMMENTS ; Start 03/29/18 at 08:30 Potassium Chloride (Klor-Con) 40 meq 1X ONCE PO Last administered on at 14:25; Start 03/29/18 at 13:15; Stop 03/29/18 at 13:16; Status DC Potassium Chloride/Sodium Chloride 1,000 ml @ 75 mls/hr [id number] IV Last administered on 04/01/18at 08:47; Start 03/29/18 at 14:15; Stop 04/01/18 at 13:39 ; Status DC Pantoprazole Sodium (Protonix) 40 mg DAILYAC PO ; Start 03/31/18 at 07:30; Stop 03/31/18 at 11:32; Status DC Albuterol Sulfate (Ventolin Neb Soln) 2.5 mg PRN Q4HRS PRN NEB WHEEZING Last administered on 04/12/18at 19:21; Start 03/30/18 at 13:30 Micafungin Sodium 100 mg/Dextrose 100 ml @ 100 mls/hr Q24H IV Last administered on 04/05/18at 15:07; Start 03/30/18 at 15:00; Stop 04/06/18 at 08:05 ; Status DC Linezolid/Dextrose 300 ml @ 300 mls/hr Q12HR IV Last administered on at 21:33; Start 03/30/18 at 14:00; Stop 04/06/18 at 08:05; Status DC Olanzapine (ZyPREXA IM) 10 mg PRN Q8HRS PRN IM ANXIETY / AGITATION; Start 03/30 at 14:00; Stop 04/07/18 at 14:49; Status DC Labetalol HCl (Normodyne Iv Push) 20 mg PRN Q2HR PRN IVP GIVE FOR SBP > 180 DBP >110 Last administered on 04/10/18at 02:51; Start 03/30/18 at 17:15 Acetaminophen (Tylenol Supp) 650 mg PRN Q6HRS PRN TN MILD PAIN / TEMP Last administered on 03/31/18at 15:02; Start 03/30/18 at 17:15 Iohexol (Omnipaque 300 Mg/ml) 75 ml 1X ONCE IV ; Start 03/31/18 at 09:15; Stop 03/31/18 at 09:16; Status DC Info (CONTRAST GIVEN -- Rx MONITORING) 1 each PRN DAILY PRN MC SEE COMMENTS; Start 03/31/18 at 09:15; Stop 04/02/18 at 09:14; Status DC Iohexol (Omnipaque 300 Mg/ml) 75 ml 1X ONCE IV Last administered on 03/31/18at 10:29; Start 03/31/18 at 10:00; Stop 03/31/18 at 10:04; Status DC Fentanyl Citrate 30 ml @ 0 mls/hr CONT PRN IV PER PROTOCOL Last administered on 04/08/18at 13:59; Start 03/31/18 at 11:00; Stop 04/11/18 at 08:11; Status DC Lorazepam (Ativan) 2 mg STK-MED ONCE .ROUTE ; Start 03/31/18 at 11:02; Stop at 11:03; Status DC Vecuronium Bard (Norcuron Bolus) 10 mg STK-MED ONCE IV ; Start 03/31/18 at 11 :05; Stop 03/31/18 at 11:06; Status DC Propofol 100 ml @ As Directed STK-MED ONCE IV ; Start 03/31/18 at 11:08; Stop 03/31/18 at 11:09; Status DC Vecuronium Bard (Norcuron Bolus) 10 mg STK-MED ONCE IV ; Start 03/31/18 at 11 :08; Stop 03/31/18 at 11:10; Status DC Succinylcholine Chloride (Anectine) 200 mg 1X ONCE IV ; Start 03/31/18 at 11:30 ; Stop 03/31/18 at 11:31; Status DC Propofol 100 ml @ 0 mls/hr CONT PRN IV PER PROTOCOL Last administered on at 15:13; Start 03/31/18 at 11:30; Stop 04/11/18 at 07:52; Status DC Chlorhexidine Gluconate (Peridex) 15 ml BID MM Last administered on 04/08/18at 07:56; Start 03/31/18 at 21:00; Stop 04/10/18 at 12:08; Status DC Pantoprazole Sodium (PROTONIX VIAL for IV PUSH) 40 mg DAILYAC IVP Last administered on 04/14/18at 09:20; Start 04/01/18 at 07:30; Stop 04/14/18 at 10:37 ; Status DC Vecuronium Bard (Norcuron Bolus) 10 mg 1X ONCE IV Last administered on 03/31at 11:58; Start 03/31/18 at 12:00; Stop 03/31/18 at 12:01; Status DC Meropenem 500 mg/ Sodium Chloride 50 ml @ 100 mls/hr Q6HRS IV Last administered on 04/13/18at 05:07; Start 03/31/18 at 18:00; Stop 04/13/18 at 11:36 ; Status DC Info (Tpn Per Pharmacy) 1 each PRN DAILY PRN MC SEE COMMENTS Last administered on 04/12/18at 09:59; Start 03/31/18 at 14:00; Stop 04/12/18 at 12:31; Status DC Sodium Chloride 45 meq/Sodium Acetate 45 meq/ Potassium Chloride 50 meq/ Potassium Phosphate 13.6 mmol/Magnesium Sulfate 10 meq/ Calcium Gluconate 10 meq / Multivitamins 10 ml/Chromium/ Copper/Manganese/ Seleni/Zn 1 ml/ Folic Acid 1 mg/ Thiamine HCl 100 mg/Total Donna... 1,512 ml @ 63 mls/hr TPN CONT IV Last administered on 03/31/18at 21:41; Start 03/31/18 at 22:00; Stop 04/01/18 at 21:59; Status DC Octreotide Acetate (SandoSTATIN) 100 mcg Q8HRS SQ Last administered on at 06:14; Start 03/31/18 at 15:30; Stop 04/05/18 at 11:58; Status DC Vecuronium Bard (Norcuron Bolus) 10 mg STK-MED ONCE IV ; Start 03/31/18 at 11 :10; Stop 04/01/18 at 09:10; Status DC Lorazepam (Ativan) 2 mg STK-MED ONCE .ROUTE ; Start 03/31/18 at 11:10; Stop at 09:10; Status DC Sodium Chloride 45 meq/Sodium Acetate 45 meq/ Potassium Chloride 70 meq/ Potassium Phosphate 13.6 mmol/Magnesium Sulfate 10 meq/ Calcium Gluconate 10 meq / Multivitamins 10 ml/Chromium/ Copper/Manganese/ Seleni/Zn 1 ml/ Folic Acid 1 mg/ Thiamine HCl 100 mg/Total Donna... 1,512 ml @ 63 mls/hr TPN CONT IV Last administered on 04/01/18at 22:35; Start 04/01/18 at 22:00; Stop 04/02/18 at 21:59; Status DC Furosemide (Lasix) 20 mg 1X ONCE IVP Last administered on 04/02/18at 09:12; Start 04/02/18 at 09:30; Stop 04/02/18 at 09:31; Status DC Sodium Chloride 45 meq/Sodium Acetate 45 meq/ Potassium Chloride 70 meq/ Potassium Phosphate 13.6 mmol/Magnesium Sulfate 10 meq/ Calcium Gluconate 10 meq / Multivitamins 10 ml/Chromium/ Copper/Manganese/ Seleni/Zn 1 ml/ Folic Acid 1 mg/ Thiamine HCl 100 mg/Total Donna... 1,512 ml @ 63 mls/hr TPN CONT IV Last administered on 04/02/18at 22:18; Start 04/02/18 at 22:00; Stop 04/03/18 at 21:59; Status DC Multi-Ingred Cream/Lotion/Oil/ Oint (Artificial Tears Eye Ointment) 1 rosemary Q12HR OU Last administered on 04/08/18at 07:56; Start 04/02/18 at 14:00; Stop at 08:12; Status DC Sodium Chloride 45 meq/Sodium Acetate 45 meq/ Potassium Chloride 70 meq/ Potassium Phosphate 13.6 mmol/Magnesium Sulfate 10 meq/ Calcium Gluconate 10 meq / Multivitamins 10 ml/Chromium/ Copper/Manganese/ Seleni/Zn 1 ml/ Folic Acid 1 mg/ Thiamine HCl 100 mg/Total Donna... 1,512 ml @ 63 mls/hr TPN CONT IV Last administered on 04/03/18at 21:11; Start 04/03/18 at 22:00; Stop 04/04/18 at 21:59; Status DC Sodium Chloride 60 meq/Sodium Acetate 50 meq/ Potassium Chloride 70 meq/ Potassium Phosphate 13.6 mmol/Magnesium Sulfate 10 meq/ Calcium Gluconate 10 meq / Multivitamins 10 ml/Chromium/ Copper/Manganese/ Seleni/Zn 1 ml/ Folic Acid 1 mg/ Thiamine HCl 100 mg/Total Donna... 1,512 ml @ 63 mls/hr TPN CONT IV Last administered on 04/04/18at 21:40; Start 04/04/18 at 22:00; Stop 04/05/18 at 21:59; Status DC Sodium Chloride 50 meq/Sodium Acetate 50 meq/ Potassium Chloride 70 meq/ Potassium Phosphate 13.6 mmol/Magnesium Sulfate 10 meq/ Calcium Gluconate 10 meq / Multivitamins 10 ml/Chromium/ Copper/Manganese/ Seleni/Zn 1 ml/ Folic Acid 1 mg/ Thiamine HCl 100 mg/Total Donna... 1,512 ml @ 63 mls/hr TPN CONT IV Last administered on 04/05/18at 21:34; Start 04/05/18 at 22:00; Stop 04/06/18 at 21:59; Status DC Sodium Chloride 50 meq/Sodium Acetate 50 meq/ Potassium Chloride 70 meq/ Potassium Phosphate 13.6 mmol/Magnesium Sulfate 10 meq/ Calcium Gluconate 10 meq / Multivitamins 10 ml/Chromium/ Copper/Manganese/ Seleni/Zn 1 ml/ Folic Acid 1 mg/ Thiamine HCl 100 mg/Total Donna... 1,512 ml @ 63 mls/hr TPN CONT IV Last administered on 04/06/18at 21:24; Start 04/06/18 at 22:00; Stop 04/07/18 at 21:59; Status DC Iohexol (Omnipaque 300 Mg/ml) 75 ml 1X ONCE IV Last administered on 04/06/18at 11:45; Start 04/06/18 at 11:45; Stop 04/06/18 at 11:46; Status DC Info (CONTRAST GIVEN -- Rx MONITORING) 1 each PRN DAILY PRN MC SEE COMMENTS; Start 04/06/18 at 11:45; Stop 04/08/18 at 11:44; Status DC Sodium Chloride 50 meq/Sodium Acetate 50 meq/ Potassium Chloride 65 meq/ Potassium Phosphate 13.6 mmol/Magnesium Sulfate 10 meq/ Calcium Gluconate 10 meq / Multivitamins 10 ml/Chromium/ Copper/Manganese/ Seleni/Zn 1 ml/ Folic Acid 1 mg/ Thiamine HCl 100 mg/Total Donna... 1,512 ml @ 63 mls/hr TPN CONT IV Last administered on 04/07/18at 21:55; Start 04/07/18 at 22:00; Stop 04/08/18 at 21:59; Status DC Olanzapine (ZyPREXA IM) 10 mg Q8HRS PRN IM ANXIETY / AGITATION; Start 04/07/18 at 15:00; Stop 04/07/18 at 15:00; Status DC Olanzapine (ZyPREXA IM) 10 mg Q8HRS PRN IM AGITATION; Start 04/07/18 at 15:00; Stop 04/07/18 at 15:23; Status DC Olanzapine (ZyPREXA IM) 10 mg Q8HRS IM Last administered on 04/08/18at 05:50; Start 04/07/18 at 15:00; Stop 04/08/18 at 12:44; Status DC Sodium Chloride 50 meq/Sodium Acetate 50 meq/ Potassium Chloride 65 meq/ Potassium Phosphate 13.6 mmol/Magnesium Sulfate 10 meq/ Multivitamins 10 ml/ Chromium/ Copper/Manganese/ Seleni/Zn 1 ml/ Folic Acid 1 mg/ Thiamine HCl 100 mg /Total Parenteral Nutrition/Amino Acids/Dextrose 1,512 ml @ 63 mls/hr TPN CONT IV Last administered on 04/08/18at 21:56; Start 04/08/18 at 22:00; Stop at 21:59; Status DC Haloperidol Lactate (Haldol Inj) 10 mg Q8HRS IV Last administered on 04/15/18at 05:13; Start 04/08/18 at 14:00; Stop 04/15/18 at 08:07; Status DC Diphenhydramine HCl (Benadryl) 50 mg Q8HRS IVP Last administered on 04/15/18at 05:13; Start 04/08/18 at 14:00; Stop 04/15/18 at 08:05; Status DC Sodium Chloride 50 meq/Sodium Acetate 50 meq/ Potassium Chloride 65 meq/ Potassium Phosphate 13.6 mmol/Magnesium Sulfate 10 meq/ Multivitamins 10 ml/ Chromium/ Copper/Manganese/ Seleni/Zn 1 ml/ Folic Acid 1 mg/ Thiamine HCl 100 mg /Total Parenteral Nutrition/Amino Acids/Dextro... 1,492 ml @ 62.167 mls/ hr TPN CONT IV Last administered on 04/09/18at 21:46; Start 04/09/18 at 22:00; Stop 04/10/18 at 21:59; Status DC Scopolamine (Transderm-Scop) 1 patch Q3DAYS TD Last administered on 04/10/18at 01:00; Start 04/10/18 at 01:00; Stop 04/12/18 at 07:25; Status DC Prochlorperazine Edisylate (Compazine) 10 mg PRN Q6HRS PRN IV NAUSEA/VOMITING 2ND CHOICE Last administered on 04/10/18at 05:45; Start 04/10/18 at 05:30 Sodium Chloride 50 meq/Sodium Acetate 50 meq/ Potassium Chloride 65 meq/ Potassium Phosphate 13.6 mmol/Magnesium Sulfate 10 meq/ Multivitamins 10 ml/ Chromium/ Copper/Manganese/ Seleni/Zn 1 ml/ Folic Acid 1 mg/ Thiamine HCl 100 mg /Total Parenteral Nutrition/Amino Acids/Dextro... 1,492 ml @ 62.167 mls/ hr TPN CONT IV Last administered on 04/10/18at 21:37; Start 04/10/18 at 22:00; Stop 04/11/18 at 21:59; Status DC Sodium Chloride 50 meq/Sodium Acetate 50 meq/ Potassium Chloride 65 meq/ Potassium Phosphate 13.6 mmol/Magnesium Sulfate 10 meq/ Multivitamins 10 ml/ Chromium/ Copper/Manganese/ Seleni/Zn 1 ml/ Folic Acid 1 mg/ Thiamine HCl 100 mg /Total Parenteral Nutrition/Amino Acids/Dextro... 1,512 ml @ 63 mls/hr TPN CONT IV Last administered on 04/11/18at 22:10; Start 04/11/18 at 22:00; Stop at 21:59; Status DC Sodium Chloride 50 meq/Sodium Acetate 50 meq/ Potassium Chloride 65 meq/ Potassium Phosphate 13.6 mmol/Magnesium Sulfate 10 meq/ Multivitamins 10 ml/ Chromium/ Copper/Manganese/ Seleni/Zn 1 ml/ Folic Acid 1 mg/ Thiamine HCl 100 mg /Total Parenteral Nutrition/Amino Acids/Dextro... 1,512 ml @ 63 mls/hr TPN CONT IV ; Start 04/12/18 at 22:00; Stop 04/12/18 at 22:00; Status DC Morphine Sulfate (Morphine Sulfate) 2 mg PRN Q4HRS PRN IV PAIN Last administered on 04/16/18at 20:03; Start 04/12/18 at 12:45 Pantoprazole Sodium (Protonix) 40 mg DAILYAC PO Last administered on 04/17/18at 06:35; Start 04/15/18 at 07:30 Diphenhydramine HCl (Benadryl) 50 mg Q8HRS PO Last administered on 04/17/18at 06 :11; Start 04/15/18 at 14:00 Haloperidol (Haldol) 10 mg Q8HRS PO ; Start 04/15/18 at 14:00; Stop 04/15/18 at 14:00; Status DC Haloperidol (Haldol) 10 mg BID PO Last administered on 04/17/18at 10:46; Start 04/15/18 at 21:00 Multi-Ingredient Mouthwash/Gargle (Gi Cocktail) 20 ml PRN QID PRN PO CHEST PAIN Last administered on 04/17/18at 10:51; Start 04/16/18 at 09:30 Active Scripts Active Diazepam 5 Mg Tablet 5 Mg PO DAILY Reported Proair Hfa Inhaler (Albuterol Sulfate) 8.5 Gm Hfa.aer.ad 1 Puff INH PRN Q4HRS PRN Duoneb 0.5-3(2.5) Mg/3 Ml (Albuterol/Ipratropium) 3 Ml Ampul.neb 3 Ml NEB Q2HR PRN Symbicort 160-4.5 Mcg Inhaler (Budesonide/Formoterol Fumarate) 10.2 Gm Hfa.aer.ad 2 Puff IH BID Prilosec Otc (Omeprazole Magnesium) 20 Mg Tablet.dr 1 Tab PO DAILY Theophylline (Theophylline Anhydrous) 400 Mg Tablet.er 300 Mg PO BID Vitals/I & O Vital Sign - Last 24 Hours 04/16/18 04/16/18 04/16/18 04/16/18 14:34 15:00 19:00 20:00 Temp 97.2 97.7 97.2 97.7 Pulse 83 108 Resp 16 17 17 B/P (MAP) 112/97 (102) 127/74 (91) Pulse Ox 96 94 O2 Delivery Room Air Room Air Room Air Room Air O2 Flow Rate 2.0 2.0 2.0 04/16/18 04/16/18 04/16/18 04/16/18 20:03 20:23 20:33 23:00 Temp 97.9 97.9 Pulse 99 Resp 18 16 17 B/P (MAP) 127/70 (89) Pulse Ox 96 97 95 95 O2 Delivery Room Air Room Air Room Air Room Air O2 Flow Rate 2.0 2.0 04/17/18 04/17/18 04/17/18 03:00 07:00 09:02 Temp 97.9 98.1 97.9 98.1 Pulse 94 98 Resp 17 16 B/P (MAP) 109/74 (86) 114/73 (87) Pulse Ox 93 97 O2 Delivery Room Air Room Air Room Air O2 Flow Rate 2.0 Intake and Output 04/16/18 04/16/18 04/17/18 15:00 23:00 07:00 Intake Total 800 ml 120 ml Balance 800 ml 120 ml WILMAR OSBORN MD Apr 17, 2018 11:14
--- NOTE | 2018-04-17 11:16 | PDOC ---
Subjective: Subjective: Epigastric pain after eating - less so w/ nutrition shakes. Improved w/ GI cocktail yesterday but would like some morphine now. Stooling, no n/v. Objective: Vital Signs: Vital Signs Date Time Temp Pulse Resp B/P (MAP) Pulse Ox O2 Delivery O2 Flow Rate FiO2 04/17/18 09:02 Room Air 04/17/18 07:00 98.1 98 16 114/73 (87) 97 98.1 04/17/18 03:00 2.0 PE: GEN: NAD LUNGS: CTAB HEART: RRR ABD: soft NEURO/PSYCH: A & O 3 A/P: Alcoholism, abd pain/pancreatitis -- Ongoing c/o pain w/ eating - has had CTs (3), US, and KUBs - last 04/10. Will review need for any repeat imaging w/ Dr. Rogers. Continue PPI, use GI cocktail PRN. MESSI GORE Apr 17, 2018 11:16
[2018-04-17 15:00] VITALS: BP 126/85
[2018-04-17] MEDS: diazePAM 5 MG TABLET PO PRN ×2 (18:07→20:22)
[2018-04-17 19:00] VITALS: BP 141/94
[2018-04-17] MEDS: ENOXAPARIN 40 MG/0.4 ML SYRINGE. SQ SCH (20:23)
[2018-04-17 22:47] VITALS: BP 131/84
[2018-04-18 03:00] VITALS: BP 132/80
[2018-04-18] MEDS: diazePAM 5 MG TABLET PO PRN ×2 (03:11→05:14)
[2018-04-18] MEDS: diphenhydrAMINE HCL 25 MG CAPSULE PO SCH ×2 (05:14→14:00)
[2018-04-18 07:00] VITALS: BP 128/80
[2018-04-18] MEDS: BUDESONIDE 0.5 MG/2 ML NEBU. NEB SCH (08:01)
--- NOTE | 2018-04-18 08:29 | PDOC ---
PROGRESS NOTES Chief Complaint Chief Complaint Presented with Abd pain N/V and pancreatitis History of Present Illness History of Present Illness Acute Pancreatitis Alcohol abuse and withdrawal AMS metabolic encephalopathy with alcohol withdrawal Severe agitation with homocide ideation requiring sedation and intubation 03/31 Acute hypoxic resp failure h/o Asthma GERD HTN Fever - better - likely from pancreatitis/occlusive thrombus vs other, cult nonrevealing, resolving. Nml procalcitonin 04/06. ID D/c'd Micafungin and linezolid ( 03/30- 04/06 ) with neg cults and a week of treatment Morbid obesity Leukocytosis resolving Hepatic lesions on CT ZAIRA - improved Lung infiltrates likely pulm venous congestion Occlusive thrombus Rt Cephalic vein Rash LUE - mild off TPN Vitals Vitals Vital Signs Date Time Temp Pulse Resp B/P (MAP) Pulse Ox O2 Delivery O2 Flow Rate FiO2 04/18/18 08:02 96 Room Air 04/18/18 03:00 97.5 88 18 132/80 (97) 97.5 Physical Exam Physical Exam GENERAL: Laying in the bed, NAD LUNGS: CTAB CV: S1 S2 ABD: Obese, mildly distended, BS +, NT : Kramer out EXT: No gross edema or cyanosis SKIN: LUE biceps area with mild rash - fading RIJ clean - out PIV General: Alert, Cooperative, No acute distress Heart: Regular rate, Normal S1, Normal S2 Lungs: Clear, Other Abdomen: Soft, No masses Extremities: No cyanosis, No edema Skin: No rashes, No breakdown Assessment and Plan Assessmemt and Plan Problems Medical Problems: (1) Alcoholic pancreatitis Status: Acute (2) ETOH abuse Status: Acute Comment Review of Relevant I have reviewed the following items wali (where applicable) has been applied. Labs Microbiology 03/31/18 Blood Culture - Final, Complete NO GROWTH AFTER 5 DAYS Medications Current Medications Multivitamins 10 ml/Thiamine HCl 100 mg/Folic Acid 1 mg/Sodium Chloride 1,011.2 ml @ 1,000.088 mls/hr 1X ONCE IV Last administered on 03/26/18at 15:07; Start 03/26/18 at 14:00; Stop 03/26/18 at 15:00; Status DC Ondansetron HCl (Zofran) 4 mg 1X ONCE IV Last administered on 03/26/18at 14:13 ; Start 03/26/18 at 14:00; Stop 03/26/18 at 14:10; Status DC Pantoprazole Sodium (PROTONIX VIAL for IV PUSH) 40 mg 1X ONCE IVP Last administered on 03/26/18at 14:13; Start 03/26/18 at 14:00; Stop 03/26/18 at 14:10 ; Status DC Pantoprazole Sodium (PROTONIX VIAL for IV PUSH) 40 mg STK-MED ONCE IVP ; Start 03/26/18 at 14:10; Stop 03/26/18 at 14:11; Status DC Ondansetron HCl (Zofran) 4 mg STK-MED ONCE .ROUTE ; Start 03/26/18 at 14:10; Stop 03/26/18 at 14:11; Status DC Iohexol (Omnipaque 300 Mg/ml) 75 ml 1X ONCE IV Last administered on 03/26/18at 14:38; Start 03/26/18 at 14:45; Stop 03/26/18 at 14:46; Status DC Iohexol (Omnipaque 300 Mg/ml) 100 ml STK-MED ONCE .ROUTE ; Start 03/26/18 at 14: 38; Stop 03/26/18 at 14:39; Status DC Info (CONTRAST GIVEN -- Rx MONITORING) 1 each PRN DAILY PRN MC SEE COMMENTS; Start 03/26/18 at 14:45; Stop 03/28/18 at 14:44; Status DC Ondansetron HCl (Zofran) 4 mg 1X ONCE IV Last administered on 03/26/18at 15:08 ; Start 03/26/18 at 15:00; Stop 03/26/18 at 15:01; Status DC Morphine Sulfate (Morphine Sulfate) 5 mg 1X ONCE IV Last administered on at 15:09; Start 03/26/18 at 15:00; Stop 03/26/18 at 15:01; Status DC Ondansetron HCl (Zofran) 4 mg PRN Q8HRS PRN IV NAUSEA/VOMITING Last administered on 03/27/18at 12:22; Start 03/26/18 at 15:15; Stop 03/27/18 at 15:14 ; Status DC Morphine Sulfate (Morphine Sulfate) 4 mg PRN Q2HR PRN IV PAIN Last administered on 03/27/18at 15:12; Start 03/26/18 at 15:15; Stop 03/27/18 at 15:14 ; Status DC Multivitamins 10 ml/Thiamine HCl 100 mg/Folic Acid 1 mg/Sodium Chloride 1,011.2 ml @ 100 mls/ hr DAILY IV Last administered on 03/30/18at 07:52; Start at 16:00; Stop 03/30/18 at 19:07; Status DC Lorazepam (Ativan) 2 mg PRN Q1HR PRN IV For CIWA 8-14 Last administered on 03/26at 15:59; Start 03/26/18 at 15:15; Stop 03/26/18 at 16:43; Status DC Sodium Chloride 1,000 ml @ 125 mls/hr 1X ONCE IV Last administered on at 02:10; Start 03/26/18 at 15:15; Stop 03/26/18 at 23:14; Status DC Pantoprazole Sodium (PROTONIX VIAL for IV PUSH) 40 mg DAILYAC IVP Last administered on 03/30/18at 07:52; Start 03/27/18 at 07:30; Stop 03/30/18 at 10:52 ; Status DC Multivitamins 10 ml/Thiamine HCl 100 mg/Folic Acid 1 mg/Sodium Chloride 1,011.2 ml @ 100 mls/ hr DAILY IV ; Start 03/27/18 at 09:00; Stop 03/31/18 at 19:07; Status UNV Multivitamins (Thera M Plus) 1 tab DAILY PO ; Start 03/31/18 at 09:00; Stop at 14:18; Status DC Folic Acid (Folic Acid) 1 mg DAILY PO ; Start 03/31/18 at 09:00; Stop 03/31/18 at 14:18; Status DC Thiamine HCl 100 mg/Dextrose 51 ml @ 100 mls/hr DAILY IV ; Start 03/27/18 at 09 :00; Stop 03/31/18 at 09:31; Status UNV Lorazepam (Ativan) 2 mg Q6H PO Last administered on 03/26/18at 22:19; Start at 17:00; Stop 03/27/18 at 01:47; Status DC Lorazepam (Ativan) 4 mg PRN Q1HR PRN PO For CIWA 8-14; Start 03/26/18 at 16:45 Lorazepam (Ativan) 2 mg PRN Q1HR PRN IV For CIWA 8-14 Last administered on 04/16 14:35; Start 03/26/18 at 16:45 Lorazepam (Ativan) 4 mg PRN Q1HR PRN IV For CIWA 15 or greater Last administered on 04/09/18 14:51; Start 03/26/18 at 16:45 Haloperidol Lactate (Haldol Inj) 5 mg PRN Q4HRS PRN IVP Hallucinatns,Confusn, Delirium Last administered on 04/16/18 14:35; Start 03/26/18 at 16:45 Diphenhydramine HCl (Benadryl) 25 mg PRN Q15MIN PRN IVP EPS symptoms 2'Haldol admin Last administered on 04/16/18 20:03; Start 03/26/18 at 16:45 Clonidine HCl (Catapres) 0.1 mg PRN Q1HR PRN PO SBP > 180 or DBP > 100, MRX3 Last administered on 03/27/18 05:28; Start 03/26/18 at 16:45 Lorazepam (Ativan) 2 mg PRN Q15MIN PRN IV ; Start 03/26/18 at 16:45; Status UNV Lorazepam (Ativan) 4 mg PRN Q15MIN PRN IV ; Start 03/26/18 at 16:45; Status UNV Pantoprazole Sodium (PROTONIX VIAL for IV PUSH) 40 mg DAILYAC IVP ; Start at 07:30; Status UNV Enoxaparin Sodium (Lovenox 40mg Syringe) 40 mg Q24H SQ Last administered on 04/17/18at 20:23; Start 03/26/18 at 21:00 Albuterol Sulfate (Ventolin Neb Soln) 2.5 mg PRN Q2HRS PRN NEB SHORTNESS OF BREATH Last administered on 03/29/18 04:12; Start 03/26/18 at 17:00; Stop 03/30 at 13:29; Status DC Non-Formulary Medication (Albuterol Sulfate (Proair Hfa Inhaler)) 1 puff PRN Q4HRS PRN INH SHORTNESS OF BREATH; Start 03/26/18 at 16:45; Status UNV Non-Formulary Medication (Budesonide/ Formoterol Fumarate (Symbicort 160-4.5 Mcg Inhaler)) 2 puff BID IH ; Start 03/26/18 at 21:00; Status UNV Theophylline (Theodur) 300 mg BID PO Last administered on 03/30/18at 08:45; Start 03/26/18 at 21:00; Stop 04/02/18 at 08:50; Status DC Budesonide (Pulmicort) 0.5 mg RTBID NEB Last administered on 04/18/18at 08:01; Start 03/26/18 at 20:00 Albuterol Sulfate (Ventolin Neb Soln) 2.5 mg RTQID NEB Last administered on at 12:28; Start 03/26/18 at 20:00; Stop 03/30/18 at 13:24; Status DC Sodium Chloride 1,000 ml @ 1,000 mls/hr 1X ONCE IV Last administered on at 12:23; Start 03/27/18 at 12:15; Stop 03/27/18 at 13:14; Status DC Sodium Chloride 1,000 ml @ 1,000 mls/hr 1X ONCE IV Last administered on at 13:05; Start 03/27/18 at 12:15; Stop 03/27/18 at 13:14; Status DC Sodium Chloride 1,000 ml @ 1,000 mls/hr 1X ONCE IV Last administered on at 14:11; Start 03/27/18 at 12:15; Stop 03/27/18 at 13:14; Status DC Sodium Chloride 136 ml @ 500 mls/hr 1X ONCE IV Last administered on at 12:15; Start 03/27/18 at 12:15; Stop 03/27/18 at 12:31; Status DC Piperacillin Sod/ Tazobactam Sod 3.375 gm/Sodium Chloride 50 ml @ 100 mls/hr Q6HRS IV Last administered on 03/31/18at 12:16; Start 03/27/18 at 16:00; Stop at 13:38; Status DC Morphine Sulfate (Morphine Sulfate) 2 mg PRN Q2HR PRN IV PAIN Last administered on 03/31/18at 10:42; Start 03/27/18 at 16:45; Stop 04/12/18 at 12:37 ; Status DC Ondansetron HCl (Zofran) 4 mg PRN Q6HRS PRN IV NAUSEA/VOMITING 1ST CHOICE Last administered on 04/14/18at 19:36; Start 03/27/18 at 16:45 Sodium Chloride 1,000 ml @ 125 mls/hr Q8H IV Last administered on 03/29/18at 10 :14; Start 03/27/18 at 17:45; Stop 03/29/18 at 14:21; Status DC Diazepam (Valium) 5 mg PRN Q2HR PRN PO Agitation/Alcohol withdraw Last administered on 04/18/18at 05:14; Start 03/29/18 at 01:45 Belladonna Alkaloids/Opium (B & O) 1 supp PRN Q12HR PRN [place] BLADDER SPASM Last administered on 03/29/18at 02:58; Start 03/29/18 at 01:45 Dexmedetomidine HCl 200 mcg/ Sodium Chloride 50 ml @ 0 mls/hr CONT PRN IV PER PROTOCOL Last administered on 04/09/18at 07:41; Start 03/29/18 at 08:30; Stop at 07:53; Status DC Sodium Chloride 500 ml @ 500 mls/hr 1X PRN PRN IV SEE COMMENTS; Start at 08:30 Atropine Sulfate (ATROPINE 0.5mg SYRINGE) 0.5 mg PRN Q5MIN PRN IV SEE COMMENTS ; Start 03/29/18 at 08:30 Potassium Chloride (Klor-Con) 40 meq 1X ONCE PO Last administered on at 14:25; Start 03/29/18 at 13:15; Stop 03/29/18 at 13:16; Status DC Potassium Chloride/Sodium Chloride 1,000 ml @ 75 mls/hr [id number] IV Last administered on 04/01/18at 08:47; Start 03/29/18 at 14:15; Stop 04/01/18 at 13:39 ; Status DC Pantoprazole Sodium (Protonix) 40 mg DAILYAC PO ; Start 03/31/18 at 07:30; Stop 03/31/18 at 11:32; Status DC Albuterol Sulfate (Ventolin Neb Soln) 2.5 mg PRN Q4HRS PRN NEB WHEEZING Last administered on 04/12/18at 19:21; Start 03/30/18 at 13:30 Micafungin Sodium 100 mg/Dextrose 100 ml @ 100 mls/hr Q24H IV Last administered on 04/05/18at 15:07; Start 03/30/18 at 15:00; Stop 04/06/18 at 08:05 ; Status DC Linezolid/Dextrose 300 ml @ 300 mls/hr Q12HR IV Last administered on at 21:33; Start 03/30/18 at 14:00; Stop 04/06/18 at 08:05; Status DC Olanzapine (ZyPREXA IM) 10 mg PRN Q8HRS PRN IM ANXIETY / AGITATION; Start 03/30 at 14:00; Stop 04/07/18 at 14:49; Status DC Labetalol HCl (Normodyne Iv Push) 20 mg PRN Q2HR PRN IVP GIVE FOR SBP > 180 DBP >110 Last administered on 04/10/18at 02:51; Start 03/30/18 at 17:15 Acetaminophen (Tylenol Supp) 650 mg PRN Q6HRS PRN [place] MILD PAIN / TEMP Last administered on 03/31/18at 15:02; Start 03/30/18 at 17:15 Iohexol (Omnipaque 300 Mg/ml) 75 ml 1X ONCE IV ; Start 03/31/18 at 09:15; Stop 03/31/18 at 09:16; Status DC Info (CONTRAST GIVEN -- Rx MONITORING) 1 each PRN DAILY PRN MC SEE COMMENTS; Start 03/31/18 at 09:15; Stop 04/02/18 at 09:14; Status DC Iohexol (Omnipaque 300 Mg/ml) 75 ml 1X ONCE IV Last administered on 03/31/18at 10:29; Start 03/31/18 at 10:00; Stop 03/31/18 at 10:04; Status DC Fentanyl Citrate 30 ml @ 0 mls/hr CONT PRN IV PER PROTOCOL Last administered on 04/08/18at 13:59; Start 03/31/18 at 11:00; Stop 04/11/18 at 08:11; Status DC Lorazepam (Ativan) 2 mg STK-MED ONCE .ROUTE ; Start 03/31/18 at 11:02; Stop at 11:03; Status DC Vecuronium Ben Bolt (Norcuron Bolus) 10 mg STK-MED ONCE IV ; Start 03/31/18 at 11 :05; Stop 03/31/18 at 11:06; Status DC Propofol 100 ml @ As Directed STK-MED ONCE IV ; Start 03/31/18 at 11:08; Stop 03/31/18 at 11:09; Status DC Vecuronium [place]olt (Norcuron Bolus) 10 mg STK-MED ONCE IV ; Start 03/31/18 at 11 :08; Stop 03/31/18 at 11:10; Status DC Succinylcholine Chloride (Anectine) 200 mg 1X ONCE IV ; Start 03/31/18 at 11:30 ; Stop 03/31/18 at 11:31; Status DC Propofol 100 ml @ 0 mls/hr CONT PRN IV PER PROTOCOL Last administered on at 15:13; Start 03/31/18 at 11:30; Stop 04/11/18 at 07:52; Status DC Chlorhexidine Gluconate (Peridex) 15 ml BID MM Last administered on 04/08/18at 07:56; Start 03/31/18 at 21:00; Stop 04/10/18 at 12:08; Status DC Pantoprazole Sodium (PROTONIX VIAL for IV PUSH) 40 mg DAILYAC IVP Last administered on 04/14/18at 09:20; Start 04/01/18 at 07:30; Stop 04/14/18 at 10:37 ; Status DC Vecuronium Ben Bolt (Norcuron Bolus) 10 mg 1X ONCE IV Last administered on 03/31at 11:58; Start 03/31/18 at 12:00; Stop 03/31/18 at 12:01; Status DC Meropenem 500 mg/ Sodium Chloride 50 ml @ 100 mls/hr Q6HRS IV Last administered on 04/13/18at 05:07; Start 03/31/18 at 18:00; Stop 04/13/18 at 11:36 ; Status DC Info (Tpn Per Pharmacy) 1 each PRN DAILY PRN MC SEE COMMENTS Last administered on 04/12/18at 09:59; Start 03/31/18 at 14:00; Stop 04/12/18 at 12:31; Status DC Sodium Chloride 45 meq/Sodium Acetate 45 meq/ Potassium Chloride 50 meq/ Potassium Phosphate 13.6 mmol/Magnesium Sulfate 10 meq/ Calcium Gluconate 10 meq / Multivitamins 10 ml/Chromium/ Copper/Manganese/ Seleni/Zn 1 ml/ Folic Acid 1 mg/ Thiamine HCl 100 mg/Total Donna... 1,512 ml @ 63 mls/hr TPN CONT IV Last administered on 03/31/18at 21:41; Start 03/31/18 at 22:00; Stop 04/01/18 at 21:59; Status DC Octreotide Acetate (SandoSTATIN) 100 mcg Q8HRS SQ Last administered on at 06:14; Start 03/31/18 at 15:30; Stop 04/05/18 at 11:58; Status DC Vecuronium [place]olt (Norcuron Bolus) 10 mg STK-MED ONCE IV ; Start 03/31/18 at 11 :10; Stop 04/01/18 at 09:10; Status DC Lorazepam (Ativan) 2 mg STK-MED ONCE .ROUTE ; Start 03/31/18 at 11:10; Stop at 09:10; Status DC Sodium Chloride 45 meq/Sodium Acetate 45 meq/ Potassium Chloride 70 meq/ Potassium Phosphate 13.6 mmol/Magnesium Sulfate 10 meq/ Calcium Gluconate 10 meq / Multivitamins 10 ml/Chromium/ Copper/Manganese/ Seleni/Zn 1 ml/ Folic Acid 1 mg/ Thiamine HCl 100 mg/Total Donna... 1,512 ml @ 63 mls/hr TPN CONT IV Last administered on 04/01/18at 22:35; Start 04/01/18 at 22:00; Stop 04/02/18 at 21:59; Status DC Furosemide (Lasix) 20 mg 1X ONCE IVP Last administered on 04/02/18at 09:12; Start 04/02/18 at 09:30; Stop 04/02/18 at 09:31; Status DC Sodium Chloride 45 meq/Sodium Acetate 45 meq/ Potassium Chloride 70 meq/ Potassium Phosphate 13.6 mmol/Magnesium Sulfate 10 meq/ Calcium Gluconate 10 meq / Multivitamins 10 ml/Chromium/ Copper/Manganese/ Seleni/Zn 1 ml/ Folic Acid 1 mg/ Thiamine HCl 100 mg/Total Donna... 1,512 ml @ 63 mls/hr TPN CONT IV Last administered on 04/02/18at 22:18; Start 04/02/18 at 22:00; Stop 04/03/18 at 21:59; Status DC Multi-Ingred Cream/Lotion/Oil/ Oint (Artificial Tears Eye Ointment) 1 rosemary Q12HR OU Last administered on 04/08/18at 07:56; Start 04/02/18 at 14:00; Stop at 08:12; Status DC Sodium Chloride 45 meq/Sodium Acetate 45 meq/ Potassium Chloride 70 meq/ Potassium Phosphate 13.6 mmol/Magnesium Sulfate 10 meq/ Calcium Gluconate 10 meq / Multivitamins 10 ml/Chromium/ Copper/Manganese/ Seleni/Zn 1 ml/ Folic Acid 1 mg/ Thiamine HCl 100 mg/Total Donna... 1,512 ml @ 63 mls/hr TPN CONT IV Last administered on 04/03/18at 21:11; Start 04/03/18 at 22:00; Stop 04/04/18 at 21:59; Status DC Sodium Chloride 60 meq/Sodium Acetate 50 meq/ Potassium Chloride 70 meq/ Potassium Phosphate 13.6 mmol/Magnesium Sulfate 10 meq/ Calcium Gluconate 10 meq / Multivitamins 10 ml/Chromium/ Copper/Manganese/ Seleni/Zn 1 ml/ Folic Acid 1 mg/ Thiamine HCl 100 mg/Total Donna... 1,512 ml @ 63 mls/hr TPN CONT IV Last administered on 04/04/18at 21:40; Start 04/04/18 at 22:00; Stop 04/05/18 at 21:59; Status DC Sodium Chloride 50 meq/Sodium Acetate 50 meq/ Potassium Chloride 70 meq/ Potassium Phosphate 13.6 mmol/Magnesium Sulfate 10 meq/ Calcium Gluconate 10 meq / Multivitamins 10 ml/Chromium/ Copper/Manganese/ Seleni/Zn 1 ml/ Folic Acid 1 mg/ Thiamine HCl 100 mg/Total Donna... 1,512 ml @ 63 mls/hr TPN CONT IV Last administered on 04/05/18at 21:34; Start 04/05/18 at 22:00; Stop 04/06/18 at 21:59; Status DC Sodium Chloride 50 meq/Sodium Acetate 50 meq/ Potassium Chloride 70 meq/ Potassium Phosphate 13.6 mmol/Magnesium Sulfate 10 meq/ Calcium Gluconate 10 meq / Multivitamins 10 ml/Chromium/ Copper/Manganese/ Seleni/Zn 1 ml/ Folic Acid 1 mg/ Thiamine HCl 100 mg/Total Donna... 1,512 ml @ 63 mls/hr TPN CONT IV Last administered on 04/06/18at 21:24; Start 04/06/18 at 22:00; Stop 04/07/18 at 21:59; Status DC Iohexol (Omnipaque 300 Mg/ml) 75 ml 1X ONCE IV Last administered on 04/06/18at 11:45; Start 04/06/18 at 11:45; Stop 04/06/18 at 11:46; Status DC Info (CONTRAST GIVEN -- Rx MONITORING) 1 each PRN DAILY PRN MC SEE COMMENTS; Start 04/06/18 at 11:45; Stop 04/08/18 at 11:44; Status DC Sodium Chloride 50 meq/Sodium Acetate 50 meq/ Potassium Chloride 65 meq/ Potassium Phosphate 13.6 mmol/Magnesium Sulfate 10 meq/ Calcium Gluconate 10 meq / Multivitamins 10 ml/Chromium/ Copper/Manganese/ Seleni/Zn 1 ml/ Folic Acid 1 mg/ Thiamine HCl 100 mg/Total Donna... 1,512 ml @ 63 mls/hr TPN CONT IV Last administered on 04/07/18at 21:55; Start 04/07/18 at 22:00; Stop 04/08/18 at 21:59; Status DC Olanzapine (ZyPREXA IM) 10 mg Q8HRS PRN IM ANXIETY / AGITATION; Start 04/07/18 at 15:00; Stop 04/07/18 at 15:00; Status DC Olanzapine (ZyPREXA IM) 10 mg Q8HRS PRN IM AGITATION; Start 04/07/18 at 15:00; Stop 04/07/18 at 15:23; Status DC Olanzapine (ZyPREXA IM) 10 mg Q8HRS IM Last administered on 04/08/18at 05:50; Start 04/07/18 at 15:00; Stop 04/08/18 at 12:44; Status DC Sodium Chloride 50 meq/Sodium Acetate 50 meq/ Potassium Chloride 65 meq/ Potassium Phosphate 13.6 mmol/Magnesium Sulfate 10 meq/ Multivitamins 10 ml/ Chromium/ Copper/Manganese/ Seleni/Zn 1 ml/ Folic Acid 1 mg/ Thiamine HCl 100 mg /Total Parenteral Nutrition/Amino Acids/Dextrose 1,512 ml @ 63 mls/hr TPN CONT IV Last administered on 04/08/18at 21:56; Start 04/08/18 at 22:00; Stop at 21:59; Status DC Haloperidol Lactate (Haldol Inj) 10 mg Q8HRS IV Last administered on 04/15/18at 05:13; Start 04/08/18 at 14:00; Stop 04/15/18 at 08:07; Status DC Diphenhydramine HCl (Benadryl) 50 mg Q8HRS IVP Last administered on 04/15/18at 05:13; Start 04/08/18 at 14:00; Stop 04/15/18 at 08:05; Status DC Sodium Chloride 50 meq/Sodium Acetate 50 meq/ Potassium Chloride 65 meq/ Potassium Phosphate 13.6 mmol/Magnesium Sulfate 10 meq/ Multivitamins 10 ml/ Chromium/ Copper/Manganese/ Seleni/Zn 1 ml/ Folic Acid 1 mg/ Thiamine HCl 100 mg /Total Parenteral Nutrition/Amino Acids/Dextro... 1,492 ml @ 62.167 mls/ hr TPN CONT IV Last administered on 04/09/18at 21:46; Start 04/09/18 at 22:00; Stop 04/10/18 at 21:59; Status DC Scopolamine (Transderm-Scop) 1 patch Q3DAYS TD Last administered on 04/10/18at 01:00; Start 04/10/18 at 01:00; Stop 04/12/18 at 07:25; Status DC Prochlorperazine Edisylate (Compazine) 10 mg PRN Q6HRS PRN IV NAUSEA/VOMITING 2ND CHOICE Last administered on 04/10/18at 05:45; Start 04/10/18 at 05:30 Sodium Chloride 50 meq/Sodium Acetate 50 meq/ Potassium Chloride 65 meq/ Potassium Phosphate 13.6 mmol/Magnesium Sulfate 10 meq/ Multivitamins 10 ml/ Chromium/ Copper/Manganese/ Seleni/Zn 1 ml/ Folic Acid 1 mg/ Thiamine HCl 100 mg /Total Parenteral Nutrition/Amino Acids/Dextro... 1,492 ml @ 62.167 mls/ hr TPN CONT IV Last administered on 04/10/18at 21:37; Start 04/10/18 at 22:00; Stop 04/11/18 at 21:59; Status DC Sodium Chloride 50 meq/Sodium Acetate 50 meq/ Potassium Chloride 65 meq/ Potassium Phosphate 13.6 mmol/Magnesium Sulfate 10 meq/ Multivitamins 10 ml/ Chromium/ Copper/Manganese/ Seleni/Zn 1 ml/ Folic Acid 1 mg/ Thiamine HCl 100 mg /Total Parenteral Nutrition/Amino Acids/Dextro... 1,512 ml @ 63 mls/hr TPN CONT IV Last administered on 04/11/18at 22:10; Start 04/11/18 at 22:00; Stop at 21:59; Status DC Sodium Chloride 50 meq/Sodium Acetate 50 meq/ Potassium Chloride 65 meq/ Potassium Phosphate 13.6 mmol/Magnesium Sulfate 10 meq/ Multivitamins 10 ml/ Chromium/ Copper/Manganese/ Seleni/Zn 1 ml/ Folic Acid 1 mg/ Thiamine HCl 100 mg /Total Parenteral Nutrition/Amino Acids/Dextro... 1,512 ml @ 63 mls/hr TPN CONT IV ; Start 04/12/18 at 22:00; Stop 04/12/18 at 22:00; Status DC Morphine Sulfate (Morphine Sulfate) 2 mg PRN Q4HRS PRN IV PAIN Last administered on 04/16/18at 20:03; Start 04/12/18 at 12:45 Pantoprazole Sodium (Protonix) 40 mg DAILYAC PO Last administered on 04/17/18at 06:35; Start 04/15/18 at 07:30 Diphenhydramine HCl (Benadryl) 50 mg Q8HRS PO Last administered on 04/18/18at 05 :14; Start 04/15/18 at 14:00 Haloperidol (Haldol) 10 mg Q8HRS PO ; Start 04/15/18 at 14:00; Stop 04/15/18 at 14:00; Status DC Haloperidol (Haldol) 10 mg BID PO Last administered on 04/17/18at 20:22; Start 04/15/18 at 21:00 Multi-Ingredient Mouthwash/Gargle (Gi Cocktail) 20 ml PRN QID PRN PO CHEST PAIN Last administered on 04/17/18at 18:01; Start 04/16/18 at 09:30 Active Scripts Active Diazepam 5 Mg Tablet 5 Mg PO DAILY Reported Proair Hfa Inhaler (Albuterol Sulfate) 8.5 Gm Hfa.aer.ad 1 Puff INH PRN Q4HRS PRN Duoneb 0.5-3(2.5) Mg/3 Ml (Albuterol/Ipratropium) 3 Ml Ampul.neb 3 Ml NEB Q2HR PRN Symbicort 160-4.5 Mcg Inhaler (Budesonide/Formoterol Fumarate) 10.2 Gm Hfa.aer.ad 2 Puff IH BID Prilosec Otc (Omeprazole Magnesium) 20 Mg Tablet.dr 1 Tab PO DAILY Theophylline (Theophylline Anhydrous) 400 Mg Tablet.er 300 Mg PO BID Vitals/I & O Vital Sign - Last 24 Hours 04/17/18 04/17/18 04/17/18 04/17/18 09:02 11:00 15:00 19:00 Temp 96.6 96.4 97.9 96.6 96.4 97.9 Pulse 109 90 97 Resp 16 16 18 B/P (MAP) 140/91 (107) 126/85 (99) 141/94 (110) Pulse Ox 96 96 95 O2 Delivery Room Air Room Air Room Air Room Air 04/17/18 04/17/18 04/17/18 04/18/18 19:35 20:00 22:47 03:00 Temp 97.9 97.5 97.9 97.5 Pulse 87 88 Resp 18 18 B/P (MAP) 131/84 (100) 132/80 (97) Pulse Ox 96 95 O2 Delivery Room Air Room Air Room Air Room Air 04/18/18 08:02 Pulse Ox 96 O2 Delivery Room Air Intake and Output 04/17/18 04/17/18 04/18/18 15:00 23:00 07:00 Intake Total 360 ml Output Total 0 ml Balance 360 ml 0 ml RYAN HERNÁNDEZ MD Apr 18, 2018 08:29
[2018-04-18] MEDS: PANTOPRAZOLE 40 MG TABLET.DR. PO SCH (08:42)
[2018-04-18] MEDS: HALOPERIDOL 5 MG TABLET. PO SCH (08:43)
[2018-04-18 11:00] VITALS: BP 128/80
[2018-04-18] MEDS ORDERED: CLON0.1T12 PO (11:23)
== END 2018-04-18 14:45 | disposition home or self-care (01) | DRG 870 ==
LOC: ER 13:38 → 5 NORTH 15:08 → 1 WEST ICU 03-27 12:01 → 5 NORTH 04-10 15:14
PROVIDERS: ADMIT Family Medicine; ATTEND Family Medicine
PROC: 5A09357 Assistance with Respiratory Ventilation, Less than 24 Consecutive Hours, Continuous Positive Airway Pressure (ICD-10-PCS; 2018-03-29)
PROC: 5A09357 Assistance with Respiratory Ventilation, Less than 24 Consecutive Hours, Continuous Positive Airway Pressure (ICD-10-PCS; 2018-03-30)
PROC: 02HV33Z Insertion of Infusion Device into Superior Vena Cava, Percutaneous Approach (ICD-10-PCS; principal; 2018-03-31)
PROC: 5A1955Z Respiratory Ventilation, Greater than 96 Consecutive Hours (ICD-10-PCS; 2018-03-31)
PROC: B548ZZA Ultrasonography of Superior Vena Cava, Guidance (ICD-10-PCS; 2018-03-31)
PROC: 0BH17EZ Insertion of Endotracheal Airway into Trachea, Via Natural or Artificial Opening (ICD-10-PCS; 2018-03-31)
PROC: 02HV33Z Insertion of Infusion Device into Superior Vena Cava, Percutaneous Approach (ICD-10-PCS; 2018-04-13)
PROC: B548ZZA Ultrasonography of Superior Vena Cava, Guidance (ICD-10-PCS; 2018-04-13)
DX: A41.9 Sepsis, unspecified organism (principal); K85.20 Alcohol induced acute pancreatitis without necrosis or infection; J96.01 Acute respiratory failure with hypoxia; G92 Toxic encephalopathy; F10.231 Alcohol dependence with withdrawal delirium; N17.9 Acute kidney failure, unspecified; I82.611 Acute embolism and thrombosis of superficial veins of right upper extremity; K31.1 Adult hypertrophic pyloric stenosis; K21.9 Gastro-esophageal reflux disease without esophagitis; J45.909 Unspecified asthma, uncomplicated; I11.9 Hypertensive heart disease without heart failure; F14.90 Cocaine use, unspecified, uncomplicated; Z82.49 Family history of ischemic heart disease and other diseases of the circulatory system; F17.210 Nicotine dependence, cigarettes, uncomplicated; M10.9 Gout, unspecified; F32.9 Major depressive disorder, single episode, unspecified; Z80.52 Family history of malignant neoplasm of bladder; K76.0 Fatty (change of) liver, not elsewhere classified; K44.9 Diaphragmatic hernia without obstruction or gangrene; D69.6 Thrombocytopenia, unspecified; D64.9 Anemia, unspecified; T50.905A Adverse effect of unspecified drugs, medicaments and biological substances, initial encounter; E66.01 Morbid (severe) obesity due to excess calories; K59.00 Constipation, unspecified; R91.8 Other nonspecific abnormal finding of lung field; Z68.26 Body mass index [BMI] 26.0-26.9, adult; F12.90 Cannabis use, unspecified, uncomplicated
CPT/HCPCS: 36415; 36556; 36600; 70450; 71045; 74018; 74177; 76705; 76937; 80048; 80053; 80076; 80307; 80329; 81001; 82805; 82962; 83605; 83690; 83735; 84100; 84145; 84478; 85007; 85025; 87040; 87641; 93971; 94002; 94003; 94640; 94660; 94760; 96374; 96375; 96376; C1892; C9113; G0480; G6039; J0610; J0780; J1200; J1630; J1650; J1940; J2020; J2060; J2185; J2248; J2270; J2354; J2405; J2543; J2704; J3010; J3475; J3490; J7030; J7040; J7613; J7626; Q0163; Q9967; 92526; 92610; 97530; 97535; 99285-25; G0479

== ENCOUNTER 2018-04-20 18:25 | Inpatient (IN) | payer SELFPAY ==
[~2018-04-20] VITALS: Ht 182.9 cm; Wt 89.8 kg
[~2018-04-20 18:25] MED LIST changes: +CLON0.1T12 PO
[2018-04-20] MEDS ORDERED: cloNIDine HCL 0.1 MG TABLET PO PRN (22:15)
[2018-04-20] MEDS ORDERED: LORazepam 1 MG TABLET PO PRN (22:15)
[2018-04-20] MEDS ORDERED: chlordiazePOXIDE HCL 25 MG CAPSULE PO PRN ×2 (22:15)
[2018-04-20 23:00] VITALS: BP 142/83
[2018-04-21 03:08] VITALS: BP 124/78
[2018-04-21 05:00] LABS: AMPHETAMINE/METHAMPHETAMINE NEG (NEG); BARBITURATES NEG (NEG); BENZODIAZEPINES POS (NEG); CANNABINOIDS NEG (NEG); COCAINE NEG (NEG); METHADONE NEG (NEG); OPIATES NEG (NEG); PHENCYCLIDINE NEG (NEG)
[2018-04-21 07:50] VITALS: BP 124/80
[2018-04-21] MEDS ORDERED: THIAMINE INJ 100 MG in IV DEXTROSE 5% 50 ML IV SCH (09:00)
[2018-04-21] MEDS: MULTIVIT INFUSN,ADULT 4,VIT K 10 ML, THIAMINE INJ 100 MG, FOLIC ACID INJ 1 MG in IV NOR... IV SCH (09:07)
[2018-04-21] MEDS: MULTIVITAMIN with MINERAL TABLET. PO SCH (09:45)
[2018-04-21] MEDS: levETIRAcetam 500 MG TABLET PO SCH ×2 (09:45→19:50)
[2018-04-21] MEDS: FOLIC ACID 1 MG TABLET. PO SCH (09:45)
[2018-04-21 11:07] VITALS: BP 132/66
--- NOTE | 2018-04-21 11:51 | PDOC2 ---
NEUROLOGY CONSULT Date of Admission Date of Admission DATE: 04/21/18 TIME: 11:41 Reason for Consult Reason for Consult: Possible seizures Referring Physician Referring Physician: Dr. Munoz PCP: Dr. Manzanares Source Source: Chart review, Patient History of Present Illness History of Present Illness The patient is a 43-year-old male who is hospitalized here for 25 days, going home from our ICU yesterday. He had severe metabolic encephalopathy with agitation and homicidal ideation. Neurology was never consulted during the last hospital stay, but we did see him during his August 2016 hospital stay for same, with negative workup for other causes of encephalopathy. Upon arrival at home, he had increased tremors in the arms and legs. He had frequent staring spells off into space. He received Ativan in the emergency department. I discussed the case with Dr. Miranda and advised starting the patient on levetiracetam in transferring him to [place] for further workup. The patient denies any prior history of stroke, seizure, head injury, delirium tremens. He has had no further episodes here in the hospital. Past Medical History Cardiovascular: CAD, HTN Pulmonary: Asthma, Other ( sleep apnea) CENTRAL NERVOUS SYSTEM: Seizure (Nursing note says that he has had seizures, patient denies) GI: GERD Heme/Onc: Other ( alcoholic pancreatitis) Psych: Anxiety, Addictions, Depression Musculoskeletal: low back pain ( degenerative disc disease) Rheumatologic: Gout Infectious disease: HIV Endocrine: Diabetes ( prediabetes) Past Surgical History Past Surgical History: No pertinent history Family History Family History: CAD Social History Social History Single, mireles, no tobacco or street drugs, drinks alcohol heavily, but not since going home Current Medications Current Medications Current Medications Multivitamins 10 ml/Thiamine HCl 100 mg/Folic Acid 1 mg/Sodium Chloride 1,011.2 ml @ 100 mls/ hr DAILY IV Last administered on 04/21/18at 09:07; Start at 09:00; Stop 04/25/18 at 19:07 Multivitamins (Thera M Plus) 1 tab DAILY PO Last administered on 04/21/18at 09: 45; Start 04/21/18 at 09:00 Folic Acid (Folic Acid) 1 mg DAILY PO Last administered on 04/21/18at 09:45; Start 04/21/18 at 09:00 Thiamine HCl 100 mg/Dextrose 51 ml @ 100 mls/hr DAILY IV Last administered on 04/21/18at 09:08; Start 04/21/18 at 09:00; Stop 04/25/18 at 09:31 Chlordiazepoxide (Librium) 50 mg PRN Q1HR PRN PO For CIWA 8-14; Start 04/20/18 at 22:15 Chlordiazepoxide (Librium) 100 mg PRN Q1HR PRN PO For CIWA 15 or greater; Start 04/20/18 at 22:15 Lorazepam (Ativan) 4 mg PRN Q1HR PRN PO For CIWA 8-14; Start 04/20/18 at 22:15 Lorazepam (Ativan) 8 mg PRN Q1HR PRN PO For CIWA 15 or greater; Start 04/20/18 at 22:15 Lorazepam (Ativan) 2 mg PRN Q1HR PRN IV For CIWA 8-14 Last administered on 04/21at 08:11; Start 04/20/18 at 22:15 Lorazepam (Ativan) 4 mg PRN Q1HR PRN IV For CIWA 15 or greater; Start 04/20/18 at 22:15 Haloperidol Lactate (Haldol Inj) 5 mg PRN Q4HRS PRN IVP Hallucinatns,Confusn, Delirium; Start 04/20/18 at 22:15 Clonidine HCl (Catapres) 0.1 mg PRN Q1HR PRN PO SBP > 180 or DBP > 100, MRX3; Start 04/20/18 at 22:15 Lorazepam (Ativan) 2 mg PRN Q15MIN PRN IV ANXIETY / AGITATION; Start 04/20/18 at 22:15 Lorazepam (Ativan) 4 mg PRN Q15MIN PRN IV ANXIETY / AGITATION; Start 04/20/18 at 22:15 Levetiracetam (Keppra) 500 mg BID PO Last administered on 04/21/18at 09:45; Start 04/21/18 at 09:00 Active Scripts Active Catapres (Clonidine Hcl) 0.1 Mg Tablet 0.1 Mg PO PRN Q1HR PRN 14 Days Withdrawal symptoms Reported Proair Hfa Inhaler (Albuterol Sulfate) 8.5 Gm Hfa.aer.ad 1 Puff INH PRN Q4HRS PRN Duoneb 0.5-3(2.5) Mg/3 Ml (Albuterol/Ipratropium) 3 Ml Ampul.neb 3 Ml NEB Q2HR PRN Symbicort 160-4.5 Mcg Inhaler (Budesonide/Formoterol Fumarate) 10.2 Gm Hfa.aer.ad 2 Puff IH BID Prilosec Otc (Omeprazole Magnesium) 20 Mg Tablet.dr 1 Tab PO DAILY Theophylline (Theophylline Anhydrous) 400 Mg Tablet.er 300 Mg PO BID Allergies Allergies: Coded Allergies: No Known Drug Allergies (Unverified , 04/30/16) ROS Review of System Negative for fevers, chills, weight loss, shortness of breath, chest pain, indigestion, hematochezia, melena, dysuria. Full 14-point review systems is negative. Physical Exam Physical Examination General: Well-developed, well-nourished, white male, in no acute distress HEENT: Normocephalic andatraumatic. Temporal arteriespulsatile and nontender. Neck: Supple without bruit, no meningismus Musculoskeletal: Stability:see neurologic. Gait exam:see neurologic. Tone:see neurologic. Strength:see neurologic. Neurological: Mental Status:intact, orientation, memory, attention span/concentration, language, fund of knowledge normal. Cranial Nerves:Pupils equal and reactive to light, extraocular movements areintact, visual vuong are full to confrontation. Facial sensation is normal. There is no facial asymmetry. Vestibulo-ocular reflex is intact. Palate elvates and tongue protrudes in midline. All other cranial related problems are negative except as mentioned before.Reflexes:2+ and symmetric with flexor plantar responses. Motor:5/5 strength with normal tone and bulk. Coordination:Finger-nose finger and heel-to -thomas testing are normal. Rapid alternating movements and fine finger movements are intact. He does have postural limb tremors which give the appearance of some limb ataxia. Gait:Normal, including tandem. Sensory:Normal pinprick, vibration, light touch, proprioception. Vitals VITALS Vital Signs Date Time Temp Pulse Resp B/P (MAP) Pulse Ox O2 Delivery O2 Flow Rate FiO2 04/21/18 11:07 98.7 105 18 132/66 (88) 97 Room Air 98.7 Labs Labs Laboratory Tests Test 04/21/18 04:45 Urine Opiates Screen Neg (NEG) Urine Methadone Screen Neg (NEG) Urine Barbiturates Neg (NEG) Urine Phencyclidine Screen Neg (NEG) Urine Amphetamine/Methamphetamine Neg (NEG) Urine Benzodiazepines Screen Pos (NEG) Urine Cocaine Screen Neg (NEG) Urine Cannabinoids Screen Neg (NEG) Urine Ethyl Alcohol Neg (NEG) Laboratory Tests Test 04/21/18 04:45 Urine Opiates Screen Neg (NEG) Urine Methadone Screen Neg (NEG) Urine Barbiturates Neg (NEG) Urine Phencyclidine Screen Neg (NEG) Urine Amphetamine/Methamphetamine Neg (NEG) Urine Benzodiazepines Screen Pos (NEG) Urine Cocaine Screen Neg (NEG) Urine Cannabinoids Screen Neg (NEG) Urine Ethyl Alcohol Neg (NEG) Images Images CT HEAD WITHOUT CONTRAST 04/20 HISTORY: Seizure, tremor, cannot walk. TECHNIQUE: Computed tomography of the head was performed without intravenous contrast. COMPARISON: None. FINDINGS: There is no intracranial hemorrhage. Jackson-white differentiation is preserved. The ventricles are normal in size and position. There are changes of bilateral maxillary sinus decompressive surgery. There is a small left maxillary mucus retention cyst. There are changes of left cataract surgery. The temporal bones are unremarkable. The calvarium reveals no suspicious lesions. IMPRESSION: 1. No acute intracranial findings. Assessment/Plan Assessment/Plan Impression: Postural tremor consistent with essential tremor Possible seizure episodes, partial-complex. 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 Alcoholism, prior metabolic encephalopathy Recommendations: MRI of the brain Electroencephalogram Levetiracetam Further studies, treatment depending on the above. Thank you for letting me help the patient's care. JUANCARLOS CULP MD Apr 21, 2018 11:51
--- NOTE | 2018-04-21 12:03 | HP ---
ADMIT DATE: 04/20/2018 CHIEF COMPLAINT: Possible seizure. HISTORY OF PRESENT ILLNESS: The patient is a pleasant 43-year-old male who we just discharged a couple of weeks ago. He was in the ICU on the vent for a while. He has severe alcohol issues. We have had him out to another facility. He presented to [facility] last night with possible seizure activity. Apparently, he has been having some tremors. I suspect he might be possibly having some more alcohol withdrawal. I accepted the patient as a transfer. He is currently being examined on the medical floor. PAST MEDICAL HISTORY: Alcoholism and I think he had previous seizures, respiratory failure and sepsis. ALLERGIES: None. FAMILY HISTORY: Hypertension. SOCIAL HISTORY: He drinks. He smokes. No drugs. MEDICATIONS: Reviewed, please refer to the MRAD. REVIEW OF SYSTEMS: Unable to obtain. The patient is not talking today. PHYSICAL EXAMINATION: VITAL SIGNS: Temperature afebrile, pulse 88, respirations 18 and blood pressure 142/90. GENERAL: He is sleeping and he awakens but goes back to sleep. HEART: Normal S1 and S2. LUNGS: Clear. ABDOMEN: Soft and distended. EXTREMITIES: Trace edema. SKIN: No rash. ENDOCRINE: No thyromegaly. LYMPHATICS: No cervical nodes. HEMATOPOIETIC: No bruising. LABORATORY DATA: Drug screen is positive for benzos. Other labs pending. ASSESSMENT AND PLAN: Mental status change with alcohol issues, suspect possible seizures. The patient will be admitted. We will consult Neurology, alcohol withdrawal protocol. Continue home medicines and frequent labs. MAY FROST DO DR: AMANDA/gretel JOB#: [id number] / [id number]
[2018-04-21] MEDS ORDERED: GADOBUTROL 10 MMOL/10 ML VIAL IV ONE (14:00)
[2018-04-21 15:17] VITALS: BP 117/84
--- NOTE | 2018-04-21 15:30 | EEG ---
DATE OF SERVICE: 04/21/2018 EEG NUMBER: [id number]. OBJECTIVE: The patient is a 43-year-old male with possible seizures. DESCRIPTION: This is a digital study. Electrodes are placed according to the international 10-20 system. Bipolar and referential montages are available. Activation procedures typically include hyperventilation and intermittent photic stimulation. INTERPRETATION: The waking background consists of 9-10 Hz, 50-100 microvolt activity, symmetrically distributed over parietooccipital regions and reactive to eye opening. The patient would not stay awake to perform hyperventilation. Intermittent photic stimulation is noncontributory. Stage 1 sleep is achieved with normal electroencephalogram patterns. Tremors of the body were observed during the study. IMPRESSION: This electroencephalogram with the patient awake and asleep is within normal limits. There is no focal, paroxysmal, or epileptiform activity. In particular, there was no epileptic activity while the patient is having his tremors. Thank you for letting us help with the patient's care. JUANCARLOS CULP MD DR: ANURAG/gretel JOB#: [id number] / [id number] MAY Gutierrez DO
--- NOTE | 2018-04-21 15:48 | RAD ---
MRI of the Brain without and with Contrast 04/21/2018 Clinical History: Seizures. Technique: Unenhanced T1-weighted sagittal and axial and FLAIR, T2-weighted, gradient echo and diffusion-weighted axial images of the brain were obtained. Additionally thin section FLAIR coronal images through the temporal lobes were obtained. After the intravenous administration of 10 cc of Gadavist, enhanced T1-weighted axial and coronal images of the brain were obtained. Findings: Comparison is made to the patient's CT scan of the head dated 04/06/2018. Images from the study are degraded by patient motion. There is generalized parenchymal atrophy.. No area of significant abnormal signal intensity is seen involving the brain parenchyma. No abnormal area of contrast enhancement is seen. No extra-axial fluid collection is noted. There is no MRI evidence of acute ischemia/infarction. Images through the temporal lobes are within normal limits. Mild mucosal thickening in seen scattered throughout the paranasal sinuses. There are small to moderate-sized bilateral mastoid effusions. Normal flow voids are seen within the major vascular structures surrounding the brain parenchyma. Impression: No acute parenchymal abnormality is seen. Electronically signed by: Gino Long MD (04/21/2018 3:45 PM) [id number]
[2018-04-21 19:00] VITALS: BP 117/87
[2018-04-21] MEDS: HALOPERIDOL LACTATE 5 MG/ML VIAL. IVP PRN (19:50)
[2018-04-21] MEDS: IPRATRPIUM/ALBUTEROL 0.5/2.5MG 3 ML NEBU. NEB SCH (22:13)
[2018-04-21 23:00] VITALS: BP 124/82
[2018-04-22 03:00] VITALS: BP 130/88
[2018-04-22 07:00] VITALS: BP 123/91
[2018-04-22] MEDS: IPRATRPIUM/ALBUTEROL 0.5/2.5MG 3 ML NEBU. NEB SCH ×4 (07:42→19:57)
[2018-04-22] MEDS: MULTIVIT INFUSN,ADULT 4,VIT K 10 ML, THIAMINE INJ 100 MG, FOLIC ACID INJ 1 MG in IV NOR... IV SCH (08:01)
[2018-04-22] MEDS: MULTIVITAMIN with MINERAL TABLET. PO SCH (08:02)
[2018-04-22] MEDS: FOLIC ACID 1 MG TABLET. PO SCH (08:02)
[2018-04-22] MEDS: levETIRAcetam 500 MG TABLET PO SCH ×2 (08:02→20:28)
--- NOTE | 2018-04-22 09:46 | PDOC ---
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 Alcoholism, prior metabolic encephalopathy Plan Continue levetiracetam, 2-6 months No further studies needed. I gave the patient reassurance that if he abstains from alcohol and get some therapy, physical and mental, he should continue to improve. Follow up with me in 4-6 weeks Subjective Worried about this problem being permanent Objective Vital Signs Date Time Temp Pulse Resp B/P (MAP) Pulse Ox O2 Delivery O2 Flow Rate FiO2 04/22/18 07:38 Room Air 04/22/18 07:25 98 04/22/18 07:00 98.8 99 18 123/91 (102) 98.8 04/22/18 03:00 2.0 Intake and Output 04/22/18 07:00 Intake Total 490 ml Output Total 451 ml Balance 39 ml Intake Oral 490 ml Output Urine Total 450 ml Stool Total 1 ml PHYSICAL EXAM Alert. Oriented to time, place and person. PERRL. EOMI. CN: no focal findings. Muscle tone: normal. Muscle strength: 5/5 DTR: 2+ Plantar reflex: flexor Gait: not examined in bed. Sensory exam: no abnormal findings. Bilateral postural limb tremors, otherwise no cerebellar signs elicited. Review of Relevant I have reviewed the following items wali (where applicable) has been applied. Labs Laboratory Tests Test 04/21/18 04:45 Urine Opiates Screen Neg (NEG) Urine Methadone Screen Neg (NEG) Urine Barbiturates Neg (NEG) Urine Phencyclidine Screen Neg (NEG) Urine Amphetamine/Methamphetamine Neg (NEG) Urine Benzodiazepines Screen Pos (NEG) Urine Cocaine Screen Neg (NEG) Urine Cannabinoids Screen Neg (NEG) Urine Ethyl Alcohol Neg (NEG) Medications Current Medications Multivitamins 10 ml/Thiamine HCl 100 mg/Folic Acid 1 mg/Sodium Chloride 1,011.2 ml @ 100 mls/ hr DAILY IV Last administered on 04/22/18at 08:01; Start at 09:00; Stop 04/25/18 at 19:07 Multivitamins (Thera M Plus) 1 tab DAILY PO Last administered on 04/22/18at 08: 02; Start 04/21/18 at 09:00 Folic Acid (Folic Acid) 1 mg DAILY PO Last administered on 04/22/18at 08:02; Start 04/21/18 at 09:00 Thiamine HCl 100 mg/Dextrose 51 ml @ 100 mls/hr DAILY IV Last administered on 04/21/18at 09:08; Start 04/21/18 at 09:00; Stop 04/21/18 at 17:17; Status DC Chlordiazepoxide (Librium) 50 mg PRN Q1HR PRN PO For CIWA 8-14; Start 04/20/18 at 22:15 Chlordiazepoxide (Librium) 100 mg PRN Q1HR PRN PO For CIWA 15 or greater; Start 04/20/18 at 22:15 Lorazepam (Ativan) 4 mg PRN Q1HR PRN PO For CIWA 8-14; Start 04/20/18 at 22:15 Lorazepam (Ativan) 8 mg PRN Q1HR PRN PO For CIWA 15 or greater; Start 04/20/18 at 22:15 Lorazepam (Ativan) 2 mg PRN Q1HR PRN IV For CIWA 8-14 Last administered on 04/21at 18:05; Start 04/20/18 at 22:15 Lorazepam (Ativan) 4 mg PRN Q1HR PRN IV For CIWA 15 or greater Last administered on 04/22/18at 09:00; Start 04/20/18 at 22:15 Haloperidol Lactate (Haldol Inj) 5 mg PRN Q4HRS PRN IVP Hallucinatns,Confusn, Delirium Last administered on 04/21/18at 19:50; Start 04/20/18 at 22:15 Clonidine HCl (Catapres) 0.1 mg PRN Q1HR PRN PO SBP > 180 or DBP > 100, MRX3; Start 04/20/18 at 22:15 Lorazepam (Ativan) 2 mg PRN Q15MIN PRN IV ANXIETY / AGITATION; Start 04/20/18 at 22:15 Lorazepam (Ativan) 4 mg PRN Q15MIN PRN IV ANXIETY / AGITATION; Start 04/20/18 at 22:15 Levetiracetam (Keppra) 500 mg BID PO Last administered on 04/22/18at 08:02; Start 04/21/18 at 09:00 Gadobutrol (Gadavist) 10 mmol 1X ONCE IV Last administered on 04/21/18at 14:14 ; Start 04/21/18 at 14:00; Stop 04/21/18 at 14:01; Status DC Albuterol/ Ipratropium (Duoneb) 3 ml RTQID NEB Last administered on 04/22/18at 07:42; Start 04/21/18 at 20:00 Active Scripts Active Catapres (Clonidine Hcl) 0.1 Mg Tablet 0.1 Mg PO PRN Q1HR PRN 14 Days Withdrawal symptoms Reported Proair Hfa Inhaler (Albuterol Sulfate) 8.5 Gm Hfa.aer.ad 1 Puff INH PRN Q4HRS PRN Duoneb 0.5-3(2.5) Mg/3 Ml (Albuterol/Ipratropium) 3 Ml Ampul.neb 3 Ml NEB Q2HR PRN Symbicort 160-4.5 Mcg Inhaler (Budesonide/Formoterol Fumarate) 10.2 Gm Hfa.aer.ad 2 Puff IH BID Prilosec Otc (Omeprazole Magnesium) 20 Mg Tablet.dr 1 Tab PO DAILY Theophylline (Theophylline Anhydrous) 400 Mg Tablet.er 300 Mg PO BID Vitals/I & O Vital Sign - Last 24 Hours 04/21/18 04/21/18 04/21/18 04/21/18 11:07 15:17 19:00 20:00 Temp 98.7 99.7 98.8 98.7 99.7 98.8 Pulse 105 107 103 Resp 18 20 18 B/P (MAP) 132/66 (88) 117/84 (95) 117/87 (97) Pulse Ox 97 96 O2 Delivery Room Air Room Air Room Air Room Air O2 Flow Rate 92.0 04/21/18 04/22/18 04/22/18 04/22/18 23:00 03:00 07:00 07:25 Temp 96.7 97.0 98.8 96.7 97.0 98.8 Pulse 80 75 99 Resp 22 22 18 B/P (MAP) 124/82 (96) 130/88 (102) 123/91 (102) Pulse Ox 97 97 94 98 O2 Delivery Nasal Cannula Nasal Cannula Room Air Room Air O2 Flow Rate 2.0 2.0 04/22/18 07:38 O2 Delivery Room Air Intake and Output 04/21/18 04/21/18 04/22/18 15:00 23:00 07:00 Intake Total 250 ml 240 ml Output Total 1 ml 450 ml Balance 249 ml -210 ml Images EEG, 04/21/18, normal awake and asleep. MRI of the Brain without and with Contrast 04/21/2018 Clinical History: Seizures. Technique: Unenhanced T1-weighted sagittal and axial and FLAIR, T2-weighted, gradient echo and diffusion-weighted axial images of the brain were obtained. Additionally thin section FLAIR coronal images through the temporal lobes were obtained. After the intravenous administration of 10 cc of Gadavist, enhanced T1-weighted axial and coronal images of the brain were obtained. Findings: Comparison is made to the patient's CT scan of the head dated 04/06/2018. Images from the study are degraded by patient motion. There is generalized parenchymal atrophy.. No area of significant abnormal signal intensity is seen involving the brain parenchyma. No abnormal area of contrast enhancement is seen. No extra-axial fluid collection is noted. There is no MRI evidence of acute ischemia/infarction. Images through the temporal lobes are within normal limits. Mild mucosal thickening in seen scattered throughout the paranasal sinuses. There are small to moderate-sized bilateral mastoid effusions. Normal flow voids are seen within the major vascular structures surrounding the brain parenchyma. Impression: No acute parenchymal abnormality is seen. JUANCARLOS CULP MD Apr 22, 2018 09:46
[2018-04-22 10:32] VITALS: BP 121/83
[2018-04-22] MEDS: HALOPERIDOL LACTATE 5 MG/ML VIAL. IVP PRN ×2 (10:52→20:28)
--- NOTE | 2018-04-22 13:24 | PDOC ---
PROGRESS NOTES Chief Complaint Chief Complaint Postural tremor consistent with essential tremor Possible seizure episodes, partial-complex. 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 Alcoholism, prior metabolic encephalopathy History of Present Illness History of Present Illness Pt seen and examined Dw Rn Tremor Pt worried about condition Vitals Vitals Vital Signs Date Time Temp Pulse Resp B/P (MAP) Pulse Ox O2 Delivery O2 Flow Rate FiO2 04/22/18 12:56 98 Room Air 04/22/18 10:32 99.3 108 16 121/83 (96) 99.3 04/22/18 03:00 2.0 Physical Exam General: Alert, Oriented X3, Cooperative Heart: Regular rate, Normal S1 Lungs: Clear, Other Abdomen: Normal bowel sounds, Soft Extremities: No edema, Normal pulses Skin: No rashes, No significant lesion Review of Systems Review of Systems Tremor Leg weakness Assessment and Plan Assessmemt and Plan Assessment: Postural tremor consistent with essential tremor Possible seizure episodes, partial-complex. 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 Alcoholism, prior metabolic encephalopathy Plan: Discharge if okay with neuro PT/OT Alcohol withdraw protocol Follow up with neuro per their orders Labs Home meds Levetiracetam Comment Review of Relevant I have reviewed the following items wali (where applicable) has been applied. Labs Laboratory Tests Test 04/21/18 04:45 Urine Opiates Screen Neg (NEG) Urine Methadone Screen Neg (NEG) Urine Barbiturates Neg (NEG) Urine Phencyclidine Screen Neg (NEG) Urine Amphetamine/Methamphetamine Neg (NEG) Urine Benzodiazepines Screen Pos (NEG) Urine Cocaine Screen Neg (NEG) Urine Cannabinoids Screen Neg (NEG) Urine Ethyl Alcohol Neg (NEG) Medications Current Medications Multivitamins 10 ml/Thiamine HCl 100 mg/Folic Acid 1 mg/Sodium Chloride 1,011.2 ml @ 100 mls/ hr DAILY IV Last administered on 04/22/18at 08:01; Start at 09:00; Stop 04/25/18 at 19:07 Multivitamins (Thera M Plus) 1 tab DAILY PO Last administered on 04/22/18at 08: 02; Start 04/21/18 at 09:00 Folic Acid (Folic Acid) 1 mg DAILY PO Last administered on 04/22/18at 08:02; Start 04/21/18 at 09:00 Thiamine HCl 100 mg/Dextrose 51 ml @ 100 mls/hr DAILY IV Last administered on 04/21/18at 09:08; Start 04/21/18 at 09:00; Stop 04/21/18 at 17:17; Status DC Chlordiazepoxide (Librium) 50 mg PRN Q1HR PRN PO For CIWA 8-14; Start 04/20/18 at 22:15 Chlordiazepoxide (Librium) 100 mg PRN Q1HR PRN PO For CIWA 15 or greater; Start 04/20/18 at 22:15 Lorazepam (Ativan) 4 mg PRN Q1HR PRN PO For CIWA 8-14; Start 04/20/18 at 22:15 Lorazepam (Ativan) 8 mg PRN Q1HR PRN PO For CIWA 15 or greater; Start 04/20/18 at 22:15 Lorazepam (Ativan) 2 mg PRN Q1HR PRN IV For CIWA 8-14 Last administered on 04/21at 18:05; Start 04/20/18 at 22:15 Lorazepam (Ativan) 4 mg PRN Q1HR PRN IV For CIWA 15 or greater Last administered on 04/22/18at 12:22; Start 04/20/18 at 22:15 Haloperidol Lactate (Haldol Inj) 5 mg PRN Q4HRS PRN IVP Hallucinatns,Confusn, Delirium Last administered on 04/22/18at 10:52; Start 04/20/18 at 22:15 Clonidine HCl (Catapres) 0.1 mg PRN Q1HR PRN PO SBP > 180 or DBP > 100, MRX3; Start 04/20/18 at 22:15 Lorazepam (Ativan) 2 mg PRN Q15MIN PRN IV ANXIETY / AGITATION; Start 04/20/18 at 22:15 Lorazepam (Ativan) 4 mg PRN Q15MIN PRN IV ANXIETY / AGITATION; Start 04/20/18 at 22:15 Levetiracetam (Keppra) 500 mg BID PO Last administered on 04/22/18at 08:02; Start 04/21/18 at 09:00 Gadobutrol (Gadavist) 10 mmol 1X ONCE IV Last administered on 04/21/18at 14:14 ; Start 04/21/18 at 14:00; Stop 04/21/18 at 14:01; Status DC Albuterol/ Ipratropium (Duoneb) 3 ml RTQID NEB Last administered on 04/22/18at 12:54; Start 04/21/18 at 20:00 Active Scripts Active Catapres (Clonidine Hcl) 0.1 Mg Tablet 0.1 Mg PO PRN Q1HR PRN 14 Days Withdrawal symptoms Reported Proair Hfa Inhaler (Albuterol Sulfate) 8.5 Gm Hfa.aer.ad 1 Puff INH PRN Q4HRS PRN Duoneb 0.5-3(2.5) Mg/3 Ml (Albuterol/Ipratropium) 3 Ml Ampul.neb 3 Ml NEB Q2HR PRN Symbicort 160-4.5 Mcg Inhaler (Budesonide/Formoterol Fumarate) 10.2 Gm Hfa.aer.ad 2 Puff IH BID Prilosec Otc (Omeprazole Magnesium) 20 Mg Tablet.dr 1 Tab PO DAILY Theophylline (Theophylline Anhydrous) 400 Mg Tablet.er 300 Mg PO BID Vitals/I & O Vital Sign - Last 24 Hours 04/21/18 04/21/18 04/21/18 04/21/18 15:17 19:00 20:00 23:00 Temp 99.7 98.8 96.7 99.7 98.8 96.7 Pulse 107 103 80 Resp 20 18 22 B/P (MAP) 117/84 (95) 117/87 (97) 124/82 (96) Pulse Ox 96 97 O2 Delivery Room Air Room Air Room Air Nasal Cannula O2 Flow Rate 92.0 2.0 04/22/18 04/22/18 04/22/18 04/22/18 03:00 07:00 07:25 07:38 Temp 97.0 98.8 97.0 98.8 Pulse 75 99 Resp 22 18 B/P (MAP) 130/88 (102) 123/91 (102) Pulse Ox 97 94 98 O2 Delivery Nasal Cannula Room Air Room Air Room Air O2 Flow Rate 2.0 04/22/18 04/22/18 10:32 12:56 Temp 99.3 99.3 Pulse 108 Resp 16 B/P (MAP) 121/83 (96) Pulse Ox 96 98 O2 Delivery Room Air Room Air Intake and Output 04/21/18 04/21/18 04/22/18 15:00 23:00 07:00 Intake Total 250 ml 240 ml Output Total 1 ml 450 ml Balance 249 ml -210 ml MAY FROST III DO Apr 22, 2018 13:24
[2018-04-22 15:00] VITALS: BP 134/83
[2018-04-22 19:00] VITALS: BP 130/82
[2018-04-22 22:56] VITALS: BP 139/77
[2018-04-23 03:00] VITALS: BP 138/83
[2018-04-23 05:07] LABS: BASO # 0.1 x10^3/uL (0.0-0.2); BASO % 1 % (0-3); EOS # 0.3 x10^3/uL (0.0-0.7); EOS % 3 % (0-3); HEMATOCRIT 33.4 % (39.0-53.0); HEMOGLOBIN 11.2 g/dL (13.0-17.5); LYMPH % 22 % (24-48); MEAN CORPUSCULAR HEMOGLOBIN 26 pg (25-35); MEAN CORPUSCULAR HGB CONC 34 g/dL (31-37); MEAN CORPUSCULAR VOLUME 78 fL (79-100); MONO # 0.8 x10^3/uL (0.0-1.1); MONO % 8 % (0-9); NEUT # 5.9 x10^3uL (1.8-7.7); NEUT % 66 % (31-73); PLATELET COUNT 273 x10^3/uL (140-400); RED BLOOD COUNT 4.27 x10^6/uL (4.30-5.70); RED CELL DISTRIBUTION WIDTH 19.8 % (11.5-14.5)
[2018-04-23 05:37] LABS: CALCIUM 9.2 mg/dL (8.5-10.1); CREATININE 0.8 mg/dL (0.7-1.3); GFR 106.5
[2018-04-23] MEDS: HALOPERIDOL LACTATE 5 MG/ML VIAL. IVP PRN ×3 (06:09→21:26)
[2018-04-23 07:00] VITALS: BP 116/76
[2018-04-23] MEDS: IPRATRPIUM/ALBUTEROL 0.5/2.5MG 3 ML NEBU. NEB SCH ×4 (07:51→18:26)
[2018-04-23] MEDS: MULTIVIT INFUSN,ADULT 4,VIT K 10 ML, THIAMINE INJ 100 MG, FOLIC ACID INJ 1 MG in IV NOR... IV SCH (08:13)
[2018-04-23] MEDS: levETIRAcetam 500 MG TABLET PO SCH ×2 (09:57→21:26)
[2018-04-23] MEDS: FOLIC ACID 1 MG TABLET. PO SCH (09:57)
[2018-04-23] MEDS: MULTIVITAMIN with MINERAL TABLET. PO SCH (09:57)
--- NOTE | 2018-04-23 10:51 | PDOC ---
PROGRESS NOTES Chief Complaint Chief Complaint Postural tremor consistent with essential tremor Possible seizure episodes, partial-complex. 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 Alcoholism, prior metabolic encephalopathy Substance use disorder History of Present Illness History of Present Illness Mother at bedside. She is worried about her son. He was recently in ICU for 19 days and was discharged last Friday. He has a chronic history of severe alcohol abuse. He is not tremulous at this time. Neurology notes, per record states to start Keppra for 2-6 months and follow up with neurology in 4-6 weeks. Mother states the pt has difficulty moving both his upper and lower extremity. He does not have insurance and social work is assisting with the case. Pt resting in NAD DW RN VSS Vitals Vitals Vital Signs Date Time Temp Pulse Resp B/P (MAP) Pulse Ox O2 Delivery O2 Flow Rate FiO2 04/23/18 07:52 96 Room Air 04/23/18 07:00 98.1 89 20 116/76 (89) 98.1 Physical Exam General: No acute distress Heart: Regular rate, Normal S1 Lungs: Clear, Other Abdomen: Normal bowel sounds, Soft Extremities: No edema, Normal pulses Skin: No rashes, No significant lesion Labs LABS Laboratory Tests Test 04/23/18 03:50 04/23/18 03:58 White Blood Count 9.0 x10^3/uL (4.0-11.0) Red Blood Count 4.27 x10^6/uL (4.30-5.70) Hemoglobin 11.2 g/dL (13.0-17.5) Hematocrit 33.4 % (39.0-53.0) Mean Corpuscular Volume 78 fL (79-100) Mean Corpuscular Hemoglobin 26 pg (25-35) Mean Corpuscular Hemoglobin Concent 34 g/dL (31-37) Red Cell Distribution Width 19.8 % (11.5-14.5) Platelet Count 273 x10^3/uL (140-400) Neutrophils (%) (Auto) 66 % (31-73) Lymphocytes (%) (Auto) 22 % (24-48) Monocytes (%) (Auto) 8 % (0-9) Eosinophils (%) (Auto) 3 % (0-3) Basophils (%) (Auto) 1 % (0-3) Neutrophils # (Auto) 5.9 x10^3uL (1.8-7.7) Lymphocytes # (Auto) 2.0 x10^3/uL (1.0-4.8) Monocytes # (Auto) 0.8 x10^3/uL (0.0-1.1) Eosinophils # (Auto) 0.3 x10^3/uL (0.0-0.7) Basophils # (Auto) 0.1 x10^3/uL (0.0-0.2) Sodium Level 140 mmol/L (136-145) Potassium Level 4.0 mmol/L (3.5-5.1) Chloride Level 103 mmol/L (98-107) Carbon Dioxide Level 26 mmol/L (21-32) Anion Gap 11 (6-14) Blood Urea Nitrogen 11 mg/dL (8-26) Creatinine 0.8 mg/dL (0.7-1.3) Estimated GFR (Cockcroft-Gault) 106.5 Glucose Level 95 mg/dL (70-99) Calcium Level 9.2 mg/dL (8.5-10.1) Review of Systems Review of Systems Pt resting NAD. Assessment and Plan Assessmemt and Plan Assessment: Postural tremor consistent with essential tremor Possible seizure episodes, partial-complex. 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 Alcoholism, prior metabolic encephalopathy Substance use disorder Plan: PT/OT Speech therapy Seizure precautions Banana bag hanging F/u neurology; appreciate input Social work following; appreciate input Comment Review of Relevant I have reviewed the following items wali (where applicable) has been applied. Labs Laboratory Tests Test 04/23/18 03:50 04/23/18 03:58 White Blood Count 9.0 x10^3/uL (4.0-11.0) Red Blood Count 4.27 x10^6/uL (4.30-5.70) Hemoglobin 11.2 g/dL (13.0-17.5) Hematocrit 33.4 % (39.0-53.0) Mean Corpuscular Volume 78 fL (79-100) Mean Corpuscular Hemoglobin 26 pg (25-35) Mean Corpuscular Hemoglobin Concent 34 g/dL (31-37) Red Cell Distribution Width 19.8 % (11.5-14.5) Platelet Count 273 x10^3/uL (140-400) Neutrophils (%) (Auto) 66 % (31-73) Lymphocytes (%) (Auto) 22 % (24-48) Monocytes (%) (Auto) 8 % (0-9) Eosinophils (%) (Auto) 3 % (0-3) Basophils (%) (Auto) 1 % (0-3) Neutrophils # (Auto) 5.9 x10^3uL (1.8-7.7) Lymphocytes # (Auto) 2.0 x10^3/uL (1.0-4.8) Monocytes # (Auto) 0.8 x10^3/uL (0.0-1.1) Eosinophils # (Auto) 0.3 x10^3/uL (0.0-0.7) Basophils # (Auto) 0.1 x10^3/uL (0.0-0.2) Sodium Level 140 mmol/L (136-145) Potassium Level 4.0 mmol/L (3.5-5.1) Chloride Level 103 mmol/L (98-107) Carbon Dioxide Level 26 mmol/L (21-32) Anion Gap 11 (6-14) Blood Urea Nitrogen 11 mg/dL (8-26) Creatinine 0.8 mg/dL (0.7-1.3) Estimated GFR (Cockcroft-Gault) 106.5 Glucose Level 95 mg/dL (70-99) Calcium Level 9.2 mg/dL (8.5-10.1) Laboratory Tests Test 04/23/18 03:50 04/23/18 03:58 White Blood Count 9.0 x10^3/uL (4.0-11.0) Red Blood Count 4.27 x10^6/uL (4.30-5.70) Hemoglobin 11.2 g/dL (13.0-17.5) Hematocrit 33.4 % (39.0-53.0) Mean Corpuscular Volume 78 fL (79-100) Mean Corpuscular Hemoglobin 26 pg (25-35) Mean Corpuscular Hemoglobin Concent 34 g/dL (31-37) Red Cell Distribution Width 19.8 % (11.5-14.5) Platelet Count 273 x10^3/uL (140-400) Neutrophils (%) (Auto) 66 % (31-73) Lymphocytes (%) (Auto) 22 % (24-48) Monocytes (%) (Auto) 8 % (0-9) Eosinophils (%) (Auto) 3 % (0-3) Basophils (%) (Auto) 1 % (0-3) Neutrophils # (Auto) 5.9 x10^3uL (1.8-7.7) Lymphocytes # (Auto) 2.0 x10^3/uL (1.0-4.8) Monocytes # (Auto) 0.8 x10^3/uL (0.0-1.1) Eosinophils # (Auto) 0.3 x10^3/uL (0.0-0.7) Basophils # (Auto) 0.1 x10^3/uL (0.0-0.2) Sodium Level 140 mmol/L (136-145) Potassium Level 4.0 mmol/L (3.5-5.1) Chloride Level 103 mmol/L (98-107) Carbon Dioxide Level 26 mmol/L (21-32) Anion Gap 11 (6-14) Blood Urea Nitrogen 11 mg/dL (8-26) Creatinine 0.8 mg/dL (0.7-1.3) Estimated GFR (Cockcroft-Gault) 106.5 Glucose Level 95 mg/dL (70-99) Calcium Level 9.2 mg/dL (8.5-10.1) Medications Current Medications Multivitamins 10 ml/Thiamine HCl 100 mg/Folic Acid 1 mg/Sodium Chloride 1,011.2 ml @ 100 mls/ hr DAILY IV Last administered on 04/23/18at 08:13; Start at 09:00; Stop 04/25/18 at 19:07 Multivitamins (Thera M Plus) 1 tab DAILY PO Last administered on 04/23/18at 09: 57; Start 04/21/18 at 09:00 Folic Acid (Folic Acid) 1 mg DAILY PO Last administered on 04/23/18at 09:57; Start 04/21/18 at 09:00 Thiamine HCl 100 mg/Dextrose 51 ml @ 100 mls/hr DAILY IV Last administered on 04/21/18at 09:08; Start 04/21/18 at 09:00; Stop 04/21/18 at 17:17; Status DC Chlordiazepoxide (Librium) 50 mg PRN Q1HR PRN PO For CIWA 8-14; Start 04/20/18 at 22:15 Chlordiazepoxide (Librium) 100 mg PRN Q1HR PRN PO For CIWA 15 or greater; Start 04/20/18 at 22:15 Lorazepam (Ativan) 4 mg PRN Q1HR PRN PO For CIWA 8-14, 2nd CHOICE; Start at 22:15 Lorazepam (Ativan) 8 mg PRN Q1HR PRN PO CIWA 15 or greater,2nd CHOICE; Start 04/20/18 at 22:15 Lorazepam (Ativan) 2 mg PRN Q1HR PRN IV For CIWA 8-14 Last administered on 04/21at 18:05; Start 04/20/18 at 22:15 Lorazepam (Ativan) 4 mg PRN Q1HR PRN IV For CIWA 15 or greater Last administered on 04/22/18at 18:25; Start 04/20/18 at 22:15 Haloperidol Lactate (Haldol Inj) 5 mg PRN Q4HRS PRN IVP Hallucinatns,Confusn, Delirium Last administered on 04/23/18at 09:58; Start 04/20/18 at 22:15 Clonidine HCl (Catapres) 0.1 mg PRN Q1HR PRN PO SBP > 180 or DBP > 100, MRX3; Start 04/20/18 at 22:15 Lorazepam (Ativan) 2 mg PRN Q15MIN PRN IV ANXIETY / AGITATION; Start 04/20/18 at 22:15; Stop 04/22/18 at 14:35; Status DC Lorazepam (Ativan) 4 mg PRN Q15MIN PRN IV ANXIETY / AGITATION; Start 04/20/18 at 22:15; Stop 04/22/18 at 14:35; Status DC Levetiracetam (Keppra) 500 mg BID PO Last administered on 04/23/18at 09:57; Start 04/21/18 at 09:00 Gadobutrol (Gadavist) 10 mmol 1X ONCE IV Last administered on 04/21/18at 14:14 ; Start 04/21/18 at 14:00; Stop 04/21/18 at 14:01; Status DC Albuterol/ Ipratropium (Duoneb) 3 ml RTQID NEB Last administered on 04/23/18at 07:51; Start 04/21/18 at 20:00 Active Scripts Active Catapres (Clonidine Hcl) 0.1 Mg Tablet 0.1 Mg PO PRN Q1HR PRN 14 Days Withdrawal symptoms Reported Proair Hfa Inhaler (Albuterol Sulfate) 8.5 Gm Hfa.aer.ad 1 Puff INH PRN Q4HRS PRN Duoneb 0.5-3(2.5) Mg/3 Ml (Albuterol/Ipratropium) 3 Ml Ampul.neb 3 Ml NEB Q2HR PRN Symbicort 160-4.5 Mcg Inhaler (Budesonide/Formoterol Fumarate) 10.2 Gm Hfa.aer.ad 2 Puff IH BID Prilosec Otc (Omeprazole Magnesium) 20 Mg Tablet.dr 1 Tab PO DAILY Theophylline (Theophylline Anhydrous) 400 Mg Tablet.er 300 Mg PO BID Vitals/I & O Vital Sign - Last 24 Hours 04/22/18 04/22/18 04/22/18 04/22/18 12:56 15:00 15:04 19:00 Temp 99.2 99.2 99.2 99.2 Pulse 86 101 Resp 18 24 B/P (MAP) 134/83 (100) 130/82 (98) Pulse Ox 98 95 94 94 O2 Delivery Room Air 2L Room Air Room Air 04/22/18 04/22/18 04/23/18 04/23/18 20:00 22:56 03:00 07:00 Temp 99.9 99.6 98.1 99.9 99.6 98.1 Pulse 84 86 89 Resp 24 23 20 B/P (MAP) 139/77 (97) 138/83 (101) 116/76 (89) Pulse Ox 95 94 94 93 O2 Delivery Room Air Room Air Room Air Room Air 04/23/18 07:52 Pulse Ox 96 O2 Delivery Room Air Intake and Output 04/22/18 04/22/18 04/23/18 15:00 23:00 07:00 Intake Total 500 ml 0 ml Output Total 150 ml 300 ml Balance 350 ml -300 ml MAY FROST III DO Apr 23, 2018 10:51
[2018-04-23 11:36] VITALS: BP 113/66
[2018-04-23 15:00] VITALS: BP 112/71
--- NOTE | 2018-04-23 15:27 | PDOC ---
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 Alcoholism, prior metabolic encephalopathy Psychogenic component, patient refuses therapy, makes the nurses feed him and provide total care Plan Continue levetiracetam, 2-6 months No further studies needed. Encouraged patient to cooperate with therapy and to not have the nurses do everything for him I gave the patient reassurance that if he abstains from alcohol and get some therapy, physical and mental, he should continue to improve. Follow up with me in 4-6 weeks Subjective Denies pain Objective Vital Signs Date Time Temp Pulse Resp B/P (MAP) Pulse Ox O2 Delivery O2 Flow Rate FiO2 04/23/18 11:36 99.1 96 20 113/66 (82) 94 Room Air 99.1 Intake and Output 04/23/18 07:00 Intake Total 500 ml Output Total 450 ml Balance 50 ml Intake Oral 500 ml Output Urine Total 450 ml PHYSICAL EXAM Alert. Oriented to time, place and person. PERRL, left pupil dilated due to iris injury. EOMI. CN: no focal findings. Muscle tone: normal. Muscle strength: 5/5 DTR: 2+ Plantar reflex: flexor Gait: not examined in bed. Sensory exam: no abnormal findings. Bilateral intermittent postural limb tremors, otherwise no cerebellar signs elicited. Review of Relevant I have reviewed the following items wali (where applicable) has been applied. Labs Laboratory Tests Test 04/23/18 03:50 04/23/18 03:58 White Blood Count 9.0 x10^3/uL (4.0-11.0) Red Blood Count 4.27 x10^6/uL (4.30-5.70) Hemoglobin 11.2 g/dL (13.0-17.5) Hematocrit 33.4 % (39.0-53.0) Mean Corpuscular Volume 78 fL (79-100) Mean Corpuscular Hemoglobin 26 pg (25-35) Mean Corpuscular Hemoglobin Concent 34 g/dL (31-37) Red Cell Distribution Width 19.8 % (11.5-14.5) Platelet Count 273 x10^3/uL (140-400) Neutrophils (%) (Auto) 66 % (31-73) Lymphocytes (%) (Auto) 22 % (24-48) Monocytes (%) (Auto) 8 % (0-9) Eosinophils (%) (Auto) 3 % (0-3) Basophils (%) (Auto) 1 % (0-3) Neutrophils # (Auto) 5.9 x10^3uL (1.8-7.7) Lymphocytes # (Auto) 2.0 x10^3/uL (1.0-4.8) Monocytes # (Auto) 0.8 x10^3/uL (0.0-1.1) Eosinophils # (Auto) 0.3 x10^3/uL (0.0-0.7) Basophils # (Auto) 0.1 x10^3/uL (0.0-0.2) Sodium Level 140 mmol/L (136-145) Potassium Level 4.0 mmol/L (3.5-5.1) Chloride Level 103 mmol/L (98-107) Carbon Dioxide Level 26 mmol/L (21-32) Anion Gap 11 (6-14) Blood Urea Nitrogen 11 mg/dL (8-26) Creatinine 0.8 mg/dL (0.7-1.3) Estimated GFR (Cockcroft-Gault) 106.5 Glucose Level 95 mg/dL (70-99) Calcium Level 9.2 mg/dL (8.5-10.1) Laboratory Tests Test 04/23/18 03:50 04/23/18 03:58 White Blood Count 9.0 x10^3/uL (4.0-11.0) Red Blood Count 4.27 x10^6/uL (4.30-5.70) Hemoglobin 11.2 g/dL (13.0-17.5) Hematocrit 33.4 % (39.0-53.0) Mean Corpuscular Volume 78 fL (79-100) Mean Corpuscular Hemoglobin 26 pg (25-35) Mean Corpuscular Hemoglobin Concent 34 g/dL (31-37) Red Cell Distribution Width 19.8 % (11.5-14.5) Platelet Count 273 x10^3/uL (140-400) Neutrophils (%) (Auto) 66 % (31-73) Lymphocytes (%) (Auto) 22 % (24-48) Monocytes (%) (Auto) 8 % (0-9) Eosinophils (%) (Auto) 3 % (0-3) Basophils (%) (Auto) 1 % (0-3) Neutrophils # (Auto) 5.9 x10^3uL (1.8-7.7) Lymphocytes # (Auto) 2.0 x10^3/uL (1.0-4.8) Monocytes # (Auto) 0.8 x10^3/uL (0.0-1.1) Eosinophils # (Auto) 0.3 x10^3/uL (0.0-0.7) Basophils # (Auto) 0.1 x10^3/uL (0.0-0.2) Sodium Level 140 mmol/L (136-145) Potassium Level 4.0 mmol/L (3.5-5.1) Chloride Level 103 mmol/L (98-107) Carbon Dioxide Level 26 mmol/L (21-32) Anion Gap 11 (6-14) Blood Urea Nitrogen 11 mg/dL (8-26) Creatinine 0.8 mg/dL (0.7-1.3) Estimated GFR (Cockcroft-Gault) 106.5 Glucose Level 95 mg/dL (70-99) Calcium Level 9.2 mg/dL (8.5-10.1) Medications Current Medications Multivitamins 10 ml/Thiamine HCl 100 mg/Folic Acid 1 mg/Sodium Chloride 1,011.2 ml @ 100 mls/ hr DAILY IV Last administered on 04/23/18at 08:13; Start at 09:00; Stop 04/25/18 at 19:07 Multivitamins (Thera M Plus) 1 tab DAILY PO Last administered on 04/23/18at 09: 57; Start 04/21/18 at 09:00 Folic Acid (Folic Acid) 1 mg DAILY PO Last administered on 04/23/18at 09:57; Start 04/21/18 at 09:00 Thiamine HCl 100 mg/Dextrose 51 ml @ 100 mls/hr DAILY IV Last administered on 04/21/18at 09:08; Start 04/21/18 at 09:00; Stop 04/21/18 at 17:17; Status DC Chlordiazepoxide (Librium) 50 mg PRN Q1HR PRN PO For CIWA 8-14; Start 04/20/18 at 22:15 Chlordiazepoxide (Librium) 100 mg PRN Q1HR PRN PO For CIWA 15 or greater; Start 04/20/18 at 22:15 Lorazepam (Ativan) 4 mg PRN Q1HR PRN PO For CIWA 8-14, 2nd CHOICE; Start at 22:15 Lorazepam (Ativan) 8 mg PRN Q1HR PRN PO CIWA 15 or greater,2nd CHOICE; Start 04/20/18 at 22:15 Lorazepam (Ativan) 2 mg PRN Q1HR PRN IV For CIWA 8-14 Last administered on 05/31at 13:02; Start 04/20/18 at 22:15 Lorazepam (Ativan) 4 mg PRN Q1HR PRN IV For CIWA 15 or greater Last administered on 04/22/18at 18:25; Start 04/20/18 at 22:15 Haloperidol Lactate (Haldol Inj) 5 mg PRN Q4HRS PRN IVP Hallucinatns,Confusn, Delirium Last administered on 04/23/18at 09:58; Start 04/20/18 at 22:15 Clonidine HCl (Catapres) 0.1 mg PRN Q1HR PRN PO SBP > 180 or DBP > 100, MRX3; Start 04/20/18 at 22:15 Lorazepam (Ativan) 2 mg PRN Q15MIN PRN IV ANXIETY / AGITATION; Start 04/20/18 at 22:15; Stop 04/22/18 at 14:35; Status DC Lorazepam (Ativan) 4 mg PRN Q15MIN PRN IV ANXIETY / AGITATION; Start 04/20/18 at 22:15; Stop 04/22/18 at 14:35; Status DC Levetiracetam (Keppra) 500 mg BID PO Last administered on 04/23/18at 09:57; Start 04/21/18 at 09:00 Gadobutrol (Gadavist) 10 mmol 1X ONCE IV Last administered on 04/21/18at 14:14 ; Start 04/21/18 at 14:00; Stop 04/21/18 at 14:01; Status DC Albuterol/ Ipratropium (Duoneb) 3 ml RTQID NEB Last administered on 04/23/18at 11:32; Start 04/21/18 at 20:00 Active Scripts Active Catapres (Clonidine Hcl) 0.1 Mg Tablet 0.1 Mg PO PRN Q1HR PRN 14 Days Withdrawal symptoms Reported Proair Hfa Inhaler (Albuterol Sulfate) 8.5 Gm Hfa.aer.ad 1 Puff INH PRN Q4HRS PRN Duoneb 0.5-3(2.5) Mg/3 Ml (Albuterol/Ipratropium) 3 Ml Ampul.neb 3 Ml NEB Q2HR PRN Symbicort 160-4.5 Mcg Inhaler (Budesonide/Formoterol Fumarate) 10.2 Gm Hfa.aer.ad 2 Puff IH BID Prilosec Otc (Omeprazole Magnesium) 20 Mg Tablet.dr 1 Tab PO DAILY Theophylline (Theophylline Anhydrous) 400 Mg Tablet.er 300 Mg PO BID Vitals/I & O Vital Sign - Last 24 Hours 04/22/18 04/22/18 04/22/18 04/23/18 19:00 20:00 22:56 03:00 Temp 99.2 99.9 99.6 99.2 99.9 99.6 Pulse 101 84 86 Resp 24 24 23 B/P (MAP) 130/82 (98) 139/77 (97) 138/83 (101) Pulse Ox 94 95 94 94 O2 Delivery Room Air Room Air Room Air Room Air 04/23/18 04/23/18 04/23/18 04/23/18 07:00 07:52 08:00 11:33 Temp 98.1 98.1 Pulse 89 Resp 20 B/P (MAP) 116/76 (89) Pulse Ox 93 96 98 O2 Delivery Room Air Room Air Room Air Room Air 04/23/18 11:36 Temp 99.1 99.1 Pulse 96 Resp 20 B/P (MAP) 113/66 (82) Pulse Ox 94 O2 Delivery Room Air Intake and Output 04/22/18 04/22/18 04/23/18 15:00 23:00 07:00 Intake Total 500 ml 0 ml Output Total 150 ml 300 ml Balance 350 ml -300 ml JUANCARLOS CULP MD Apr 23, 2018 15:27
[2018-04-23 19:00] VITALS: BP 131/91
[2018-04-23 23:00] VITALS: BP 110/77
[2018-04-24 03:00] VITALS: BP 127/76
[2018-04-24 04:52] LABS: BASO # 0.1 x10^3/uL (0.0-0.2); BASO % 1 % (0-3); EOS # 0.4 x10^3/uL (0.0-0.7); EOS % 4 % (0-3); HEMATOCRIT 34.7 % (39.0-53.0); HEMOGLOBIN 11.4 g/dL (13.0-17.5); LYMPH # 1.9 x10^3/uL (1.0-4.8); LYMPH % 19 % (24-48); MEAN CORPUSCULAR HEMOGLOBIN 26 pg (25-35); MEAN CORPUSCULAR HGB CONC 33 g/dL (31-37); MEAN CORPUSCULAR VOLUME 78 fL (79-100); MONO % 10 % (0-9); NEUT # 6.5 x10^3uL (1.8-7.7); NEUT % 67 % (31-73); PLATELET COUNT 247 x10^3/uL (140-400); RED BLOOD COUNT 4.43 x10^6/uL (4.30-5.70); RED CELL DISTRIBUTION WIDTH 20.5 % (11.5-14.5); WHITE BLOOD COUNT 9.8 x10^3/uL (4.0-11.0)
[2018-04-24 06:01] LABS: CALCIUM 9.9 mg/dL (8.5-10.1); CREATININE 0.8 mg/dL (0.7-1.3); GFR 106.5; POTASSIUM 4.1 mmol/L (3.5-5.1)
[2018-04-24] MEDS: HALOPERIDOL LACTATE 5 MG/ML VIAL. IVP PRN ×3 (06:12→13:49)
[2018-04-24 07:00] VITALS: BP 141/89
[2018-04-24] MEDS: IPRATRPIUM/ALBUTEROL 0.5/2.5MG 3 ML NEBU. NEB SCH ×4 (07:50→19:21)
[2018-04-24] MEDS: MULTIVITAMIN with MINERAL TABLET. PO SCH (09:07)
[2018-04-24] MEDS: levETIRAcetam 500 MG TABLET PO SCH ×2 (09:07→20:24)
[2018-04-24] MEDS: MULTIVIT INFUSN,ADULT 4,VIT K 10 ML, THIAMINE INJ 100 MG, FOLIC ACID INJ 1 MG in IV NOR... IV SCH (09:07)
[2018-04-24] MEDS: FOLIC ACID 1 MG TABLET. PO SCH (09:07)
[2018-04-24 11:00] VITALS: BP 107/74
--- NOTE | 2018-04-24 11:25 | PDOC ---
PROGRESS NOTES Chief Complaint Chief Complaint Postural tremor consistent with essential tremor Possible seizure episodes, partial-complex. 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 Alcoholism, prior metabolic encephalopathy Substance use disorder History of Present Illness History of Present Illness Pt has a chronic history of severe alcohol abuse. He is not tremulous at this time. Neurology notes, per record states to start Keppra for 2-6 months and follow up with neurology in 4-6 weeks. Neurology progress note states pt needs to abstain from alcohol and receive both mental and physical therapy to improve tremor symptoms and weakness. Pt seen and examined Pt alert and oriented; affect appropriate DW RN VSS Vitals Vitals Vital Signs Date Time Temp Pulse Resp B/P (MAP) Pulse Ox O2 Delivery O2 Flow Rate FiO2 04/24/18 08:00 Room Air 04/24/18 07:50 97 04/24/18 07:00 97.9 118 22 141/89 (106) 97.9 Physical Exam General: No acute distress Heart: Regular rate, Normal S1 Lungs: Clear, Other Abdomen: Normal bowel sounds, Soft Extremities: No edema, Normal pulses Skin: No rashes, No significant lesion Labs LABS Laboratory Tests Test 04/24/18 03:50 White Blood Count 9.8 x10^3/uL (4.0-11.0) Red Blood Count 4.43 x10^6/uL (4.30-5.70) Hemoglobin 11.4 g/dL (13.0-17.5) Hematocrit 34.7 % (39.0-53.0) Mean Corpuscular Volume 78 fL (79-100) Mean Corpuscular Hemoglobin 26 pg (25-35) Mean Corpuscular Hemoglobin Concent 33 g/dL (31-37) Red Cell Distribution Width 20.5 % (11.5-14.5) Platelet Count 247 x10^3/uL (140-400) Neutrophils (%) (Auto) 67 % (31-73) Lymphocytes (%) (Auto) 19 % (24-48) Monocytes (%) (Auto) 10 % (0-9) Eosinophils (%) (Auto) 4 % (0-3) Basophils (%) (Auto) 1 % (0-3) Neutrophils # (Auto) 6.5 x10^3uL (1.8-7.7) Lymphocytes # (Auto) 1.9 x10^3/uL (1.0-4.8) Monocytes # (Auto) 1.0 x10^3/uL (0.0-1.1) Eosinophils # (Auto) 0.4 x10^3/uL (0.0-0.7) Basophils # (Auto) 0.1 x10^3/uL (0.0-0.2) Sodium Level 137 mmol/L (136-145) Potassium Level 4.1 mmol/L (3.5-5.1) Chloride Level 101 mmol/L (98-107) Carbon Dioxide Level 25 mmol/L (21-32) Anion Gap 11 (6-14) Blood Urea Nitrogen 13 mg/dL (8-26) Creatinine 0.8 mg/dL (0.7-1.3) Estimated GFR (Cockcroft-Gault) 106.5 Glucose Level 110 mg/dL (70-99) Calcium Level 9.9 mg/dL (8.5-10.1) Review of Systems Review of Systems Pt is complaining of leg pain in left calf. LLE US ordered. Levonox 40mg SQ q24h ordered. Assessment and Plan Assessmemt and Plan Assessment: Postural tremor consistent with essential tremor Possible seizure episodes, partial-complex. 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 Alcoholism, prior metabolic encephalopathy Substance use disorder, severe Plan: CIWA Lovenox and US for L calf pain PT/OT Labs Home medications D/c disposition pending Comment Review of Relevant I have reviewed the following items wali (where applicable) has been applied. Labs Laboratory Tests Test 04/23/18 03:50 04/23/18 03:58 04/24/18 03:50 White Blood Count 9.0 x10^3/uL (4.0-11.0) 9.8 x10^3/uL (4.0-11.0) Red Blood Count 4.27 x10^6/uL (4.30-5.70) 4.43 x10^6/uL (4.30-5.70) Hemoglobin 11.2 g/dL (13.0-17.5) 11.4 g/dL (13.0-17.5) Hematocrit 33.4 % (39.0-53.0) 34.7 % (39.0-53.0) Mean Corpuscular Volume 78 fL (79-100) 78 fL (79-100) Mean Corpuscular Hemoglobin 26 pg (25-35) 26 pg (25-35) Mean Corpuscular Hemoglobin Concent 34 g/dL (31-37) 33 g/dL (31-37) Red Cell Distribution Width 19.8 % (11.5-14.5) 20.5 % (11.5-14.5) Platelet Count 273 x10^3/uL (140-400) 247 x10^3/uL (140-400) Neutrophils (%) (Auto) 66 % (31-73) 67 % (31-73) Lymphocytes (%) (Auto) 22 % (24-48) 19 % (24-48) Monocytes (%) (Auto) 8 % (0-9) 10 % (0-9) Eosinophils (%) (Auto) 3 % (0-3) 4 % (0-3) Basophils (%) (Auto) 1 % (0-3) 1 % (0-3) Neutrophils # (Auto) 5.9 x10^3uL (1.8-7.7) 6.5 x10^3uL (1.8-7.7) Lymphocytes # (Auto) 2.0 x10^3/uL (1.0-4.8) 1.9 x10^3/uL (1.0-4.8) Monocytes # (Auto) 0.8 x10^3/uL (0.0-1.1) 1.0 x10^3/uL (0.0-1.1) Eosinophils # (Auto) 0.3 x10^3/uL (0.0-0.7) 0.4 x10^3/uL (0.0-0.7) Basophils # (Auto) 0.1 x10^3/uL (0.0-0.2) 0.1 x10^3/uL (0.0-0.2) Sodium Level 140 mmol/L (136-145) 137 mmol/L (136-145) Potassium Level 4.0 mmol/L (3.5-5.1) 4.1 mmol/L (3.5-5.1) Chloride Level 103 mmol/L (98-107) 101 mmol/L (98-107) Carbon Dioxide Level 26 mmol/L (21-32) 25 mmol/L (21-32) Anion Gap 11 (6-14) 11 (6-14) Blood Urea Nitrogen 11 mg/dL (8-26) 13 mg/dL (8-26) Creatinine 0.8 mg/dL (0.7-1.3) 0.8 mg/dL (0.7-1.3) Estimated GFR (Cockcroft-Gault) 106.5 106.5 Glucose Level 95 mg/dL (70-99) 110 mg/dL (70-99) Calcium Level 9.2 mg/dL (8.5-10.1) 9.9 mg/dL (8.5-10.1) Laboratory Tests Test 04/24/18 03:50 White Blood Count 9.8 x10^3/uL (4.0-11.0) Red Blood Count 4.43 x10^6/uL (4.30-5.70) Hemoglobin 11.4 g/dL (13.0-17.5) Hematocrit 34.7 % (39.0-53.0) Mean Corpuscular Volume 78 fL (79-100) Mean Corpuscular Hemoglobin 26 pg (25-35) Mean Corpuscular Hemoglobin Concent 33 g/dL (31-37) Red Cell Distribution Width 20.5 % (11.5-14.5) Platelet Count 247 x10^3/uL (140-400) Neutrophils (%) (Auto) 67 % (31-73) Lymphocytes (%) (Auto) 19 % (24-48) Monocytes (%) (Auto) 10 % (0-9) Eosinophils (%) (Auto) 4 % (0-3) Basophils (%) (Auto) 1 % (0-3) Neutrophils # (Auto) 6.5 x10^3uL (1.8-7.7) Lymphocytes # (Auto) 1.9 x10^3/uL (1.0-4.8) Monocytes # (Auto) 1.0 x10^3/uL (0.0-1.1) Eosinophils # (Auto) 0.4 x10^3/uL (0.0-0.7) Basophils # (Auto) 0.1 x10^3/uL (0.0-0.2) Sodium Level 137 mmol/L (136-145) Potassium Level 4.1 mmol/L (3.5-5.1) Chloride Level 101 mmol/L (98-107) Carbon Dioxide Level 25 mmol/L (21-32) Anion Gap 11 (6-14) Blood Urea Nitrogen 13 mg/dL (8-26) Creatinine 0.8 mg/dL (0.7-1.3) Estimated GFR (Cockcroft-Gault) 106.5 Glucose Level 110 mg/dL (70-99) Calcium Level 9.9 mg/dL (8.5-10.1) Medications Current Medications Multivitamins 10 ml/Thiamine HCl 100 mg/Folic Acid 1 mg/Sodium Chloride 1,011.2 ml @ 100 mls/ hr DAILY IV Last administered on 04/24/18at 09:07; Start at 09:00; Stop 04/25/18 at 19:07 Multivitamins (Thera M Plus) 1 tab DAILY PO Last administered on 04/24/18at 09: 07; Start 04/21/18 at 09:00 Folic Acid (Folic Acid) 1 mg DAILY PO Last administered on 04/24/18at 09:07; Start 04/21/18 at 09:00 Thiamine HCl 100 mg/Dextrose 51 ml @ 100 mls/hr DAILY IV Last administered on 04/21/18at 09:08; Start 04/21/18 at 09:00; Stop 04/21/18 at 17:17; Status DC Chlordiazepoxide (Librium) 50 mg PRN Q1HR PRN PO For CIWA 8-14; Start 04/20/18 at 22:15 Chlordiazepoxide (Librium) 100 mg PRN Q1HR PRN PO For CIWA 15 or greater; Start 04/20/18 at 22:15 Lorazepam (Ativan) 4 mg PRN Q1HR PRN PO For CIWA 8-14, 2nd CHOICE; Start at 22:15 Lorazepam (Ativan) 8 mg PRN Q1HR PRN PO CIWA 15 or greater,2nd CHOICE; Start 04/20/18 at 22:15 Lorazepam (Ativan) 2 mg PRN Q1HR PRN IV For CIWA 8-14 Last administered on 06/30at 09:07; Start 04/20/18 at 22:15 Lorazepam (Ativan) 4 mg PRN Q1HR PRN IV For CIWA 15 or greater Last administered on 04/22/18at 18:25; Start 04/20/18 at 22:15 Haloperidol Lactate (Haldol Inj) 5 mg PRN Q4HRS PRN IVP Hallucinatns,Confusn, Delirium Last administered on 04/24/18at 10:04; Start 04/20/18 at 22:15 Clonidine HCl (Catapres) 0.1 mg PRN Q1HR PRN PO SBP > 180 or DBP > 100, MRX3; Start 04/20/18 at 22:15 Lorazepam (Ativan) 2 mg PRN Q15MIN PRN IV ANXIETY / AGITATION; Start 04/20/18 at 22:15; Stop 04/22/18 at 14:35; Status DC Lorazepam (Ativan) 4 mg PRN Q15MIN PRN IV ANXIETY / AGITATION; Start 04/20/18 at 22:15; Stop 04/22/18 at 14:35; Status DC Levetiracetam (Keppra) 500 mg BID PO Last administered on 04/24/18at 09:07; Start 04/21/18 at 09:00 Gadobutrol (Gadavist) 10 mmol 1X ONCE IV Last administered on 04/21/18at 14:14 ; Start 04/21/18 at 14:00; Stop 04/21/18 at 14:01; Status DC Albuterol/ Ipratropium (Duoneb) 3 ml RTQID NEB Last administered on 04/24/18at 07:50; Start 04/21/18 at 20:00 Active Scripts Active Catapres (Clonidine Hcl) 0.1 Mg Tablet 0.1 Mg PO PRN Q1HR PRN 14 Days Withdrawal symptoms Reported Proair Hfa Inhaler (Albuterol Sulfate) 8.5 Gm Hfa.aer.ad 1 Puff INH PRN Q4HRS PRN Duoneb 0.5-3(2.5) Mg/3 Ml (Albuterol/Ipratropium) 3 Ml Ampul.neb 3 Ml NEB Q2HR PRN Symbicort 160-4.5 Mcg Inhaler (Budesonide/Formoterol Fumarate) 10.2 Gm Hfa.aer.ad 2 Puff IH BID Prilosec Otc (Omeprazole Magnesium) 20 Mg Tablet.dr 1 Tab PO DAILY Theophylline (Theophylline Anhydrous) 400 Mg Tablet.er 300 Mg PO BID Vitals/I & O Vital Sign - Last 24 Hours 04/23/18 04/23/18 04/23/18 04/23/18 11:33 11:36 15:00 15:47 Temp 99.1 98.1 99.1 98.1 Pulse 96 110 Resp 20 16 B/P (MAP) 113/66 (82) 112/71 (85) Pulse Ox 98 94 94 O2 Delivery Room Air Room Air Room Air Room Air 04/23/18 04/23/18 04/23/18 04/24/18 18:27 19:00 23:00 03:00 Temp 99.0 99.1 98.9 99.0 99.1 98.9 Pulse 93 89 94 Resp 20 18 20 B/P (MAP) 131/91 (104) 110/77 (88) 127/76 (93) Pulse Ox 96 92 94 94 O2 Delivery Room Air Room Air Room Air 04/24/18 04/24/18 04/24/18 07:00 07:50 08:00 Temp 97.9 97.9 Pulse 118 Resp 22 B/P (MAP) 141/89 (106) Pulse Ox 94 97 O2 Delivery Room Air Room Air Intake and Output 04/23/18 04/23/18 04/24/18 15:00 23:00 07:00 Intake Total 150 ml 240 ml 115 ml Output Total 700 ml 600 ml Balance 150 ml -460 ml -485 ml MAY FROST III DO Apr 24, 2018 11:24
--- NOTE | 2018-04-24 11:34 | PDOC ---
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 Alcoholism, prior metabolic encephalopathy Psychogenic component, patient refuses therapy, makes the nurses feed him and provide total care, tremors appear factitious as well, but there may be a component of essential tremor Plan Continue levetiracetam, 2-6 months No further studies needed. Encouraged patient to cooperate with therapy and to not have the nurses do everything for him I gave the patient reassurance that if he abstains from alcohol and get some therapy, physical and mental, he should continue to improve. Follow up with me in 4-6 weeks Subjective Complains that it hurts to move Objective Vital Signs Date Time Temp Pulse Resp B/P (MAP) Pulse Ox O2 Delivery O2 Flow Rate FiO2 04/24/18 08:00 Room Air 04/24/18 07:50 97 04/24/18 07:00 97.9 118 22 141/89 (106) 97.9 Intake and Output 04/24/18 07:00 Intake Total 505 ml Output Total 1300 ml Balance -795 ml Intake Oral 505 ml Output Urine Total 1300 ml # Voids 3 PHYSICAL EXAM Alert. Oriented to time, place and person. PERRL, left pupil dilated due to iris injury. EOMI. CN: no focal findings. Muscle tone: normal. Muscle strength: 5/5 DTR: 2+ Plantar reflex: flexor Gait: not examined in bed. Sensory exam: no abnormal findings. Tremors: today as I come into the room, he has tremor of the right thigh. That disappears and goes to the left leg. He does have a postural arm tremor. When I asked him to stop shaking, the tremor ceases. Review of Relevant I have reviewed the following items wali (where applicable) has been applied. Labs Laboratory Tests Test 04/23/18 03:50 04/23/18 03:58 04/24/18 03:50 White Blood Count 9.0 x10^3/uL (4.0-11.0) 9.8 x10^3/uL (4.0-11.0) Red Blood Count 4.27 x10^6/uL (4.30-5.70) 4.43 x10^6/uL (4.30-5.70) Hemoglobin 11.2 g/dL (13.0-17.5) 11.4 g/dL (13.0-17.5) Hematocrit 33.4 % (39.0-53.0) 34.7 % (39.0-53.0) Mean Corpuscular Volume 78 fL (79-100) 78 fL (79-100) Mean Corpuscular Hemoglobin 26 pg (25-35) 26 pg (25-35) Mean Corpuscular Hemoglobin Concent 34 g/dL (31-37) 33 g/dL (31-37) Red Cell Distribution Width 19.8 % (11.5-14.5) 20.5 % (11.5-14.5) Platelet Count 273 x10^3/uL (140-400) 247 x10^3/uL (140-400) Neutrophils (%) (Auto) 66 % (31-73) 67 % (31-73) Lymphocytes (%) (Auto) 22 % (24-48) 19 % (24-48) Monocytes (%) (Auto) 8 % (0-9) 10 % (0-9) Eosinophils (%) (Auto) 3 % (0-3) 4 % (0-3) Basophils (%) (Auto) 1 % (0-3) 1 % (0-3) Neutrophils # (Auto) 5.9 x10^3uL (1.8-7.7) 6.5 x10^3uL (1.8-7.7) Lymphocytes # (Auto) 2.0 x10^3/uL (1.0-4.8) 1.9 x10^3/uL (1.0-4.8) Monocytes # (Auto) 0.8 x10^3/uL (0.0-1.1) 1.0 x10^3/uL (0.0-1.1) Eosinophils # (Auto) 0.3 x10^3/uL (0.0-0.7) 0.4 x10^3/uL (0.0-0.7) Basophils # (Auto) 0.1 x10^3/uL (0.0-0.2) 0.1 x10^3/uL (0.0-0.2) Sodium Level 140 mmol/L (136-145) 137 mmol/L (136-145) Potassium Level 4.0 mmol/L (3.5-5.1) 4.1 mmol/L (3.5-5.1) Chloride Level 103 mmol/L (98-107) 101 mmol/L (98-107) Carbon Dioxide Level 26 mmol/L (21-32) 25 mmol/L (21-32) Anion Gap 11 (6-14) 11 (6-14) Blood Urea Nitrogen 11 mg/dL (8-26) 13 mg/dL (8-26) Creatinine 0.8 mg/dL (0.7-1.3) 0.8 mg/dL (0.7-1.3) Estimated GFR (Cockcroft-Gault) 106.5 106.5 Glucose Level 95 mg/dL (70-99) 110 mg/dL (70-99) Calcium Level 9.2 mg/dL (8.5-10.1) 9.9 mg/dL (8.5-10.1) Laboratory Tests Test 04/24/18 03:50 White Blood Count 9.8 x10^3/uL (4.0-11.0) Red Blood Count 4.43 x10^6/uL (4.30-5.70) Hemoglobin 11.4 g/dL (13.0-17.5) Hematocrit 34.7 % (39.0-53.0) Mean Corpuscular Volume 78 fL (79-100) Mean Corpuscular Hemoglobin 26 pg (25-35) Mean Corpuscular Hemoglobin Concent 33 g/dL (31-37) Red Cell Distribution Width 20.5 % (11.5-14.5) Platelet Count 247 x10^3/uL (140-400) Neutrophils (%) (Auto) 67 % (31-73) Lymphocytes (%) (Auto) 19 % (24-48) Monocytes (%) (Auto) 10 % (0-9) Eosinophils (%) (Auto) 4 % (0-3) Basophils (%) (Auto) 1 % (0-3) Neutrophils # (Auto) 6.5 x10^3uL (1.8-7.7) Lymphocytes # (Auto) 1.9 x10^3/uL (1.0-4.8) Monocytes # (Auto) 1.0 x10^3/uL (0.0-1.1) Eosinophils # (Auto) 0.4 x10^3/uL (0.0-0.7) Basophils # (Auto) 0.1 x10^3/uL (0.0-0.2) Sodium Level 137 mmol/L (136-145) Potassium Level 4.1 mmol/L (3.5-5.1) Chloride Level 101 mmol/L (98-107) Carbon Dioxide Level 25 mmol/L (21-32) Anion Gap 11 (6-14) Blood Urea Nitrogen 13 mg/dL (8-26) Creatinine 0.8 mg/dL (0.7-1.3) Estimated GFR (Cockcroft-Gault) 106.5 Glucose Level 110 mg/dL (70-99) Calcium Level 9.9 mg/dL (8.5-10.1) Medications Current Medications Multivitamins 10 ml/Thiamine HCl 100 mg/Folic Acid 1 mg/Sodium Chloride 1,011.2 ml @ 100 mls/ hr DAILY IV Last administered on 04/24/18at 09:07; Start at 09:00; Stop 04/25/18 at 19:07 Multivitamins (Thera M Plus) 1 tab DAILY PO Last administered on 04/24/18at 09: 07; Start 04/21/18 at 09:00 Folic Acid (Folic Acid) 1 mg DAILY PO Last administered on 04/24/18at 09:07; Start 04/21/18 at 09:00 Thiamine HCl 100 mg/Dextrose 51 ml @ 100 mls/hr DAILY IV Last administered on 04/21/18at 09:08; Start 04/21/18 at 09:00; Stop 04/21/18 at 17:17; Status DC Chlordiazepoxide (Librium) 50 mg PRN Q1HR PRN PO For CIWA 8-14; Start 04/20/18 at 22:15 Chlordiazepoxide (Librium) 100 mg PRN Q1HR PRN PO For CIWA 15 or greater; Start 04/20/18 at 22:15 Lorazepam (Ativan) 4 mg PRN Q1HR PRN PO For CIWA 8-14, 2nd CHOICE; Start at 22:15 Lorazepam (Ativan) 8 mg PRN Q1HR PRN PO CIWA 15 or greater,2nd CHOICE; Start 04/20/18 at 22:15 Lorazepam (Ativan) 2 mg PRN Q1HR PRN IV For CIWA 8-14 Last administered on 06/30at 09:07; Start 04/20/18 at 22:15 Lorazepam (Ativan) 4 mg PRN Q1HR PRN IV For CIWA 15 or greater Last administered on 04/22/18at 18:25; Start 04/20/18 at 22:15 Haloperidol Lactate (Haldol Inj) 5 mg PRN Q4HRS PRN IVP Hallucinatns,Confusn, Delirium Last administered on 04/24/18at 10:04; Start 04/20/18 at 22:15 Clonidine HCl (Catapres) 0.1 mg PRN Q1HR PRN PO SBP > 180 or DBP > 100, MRX3; Start 04/20/18 at 22:15 Lorazepam (Ativan) 2 mg PRN Q15MIN PRN IV ANXIETY / AGITATION; Start 04/20/18 at 22:15; Stop 04/22/18 at 14:35; Status DC Lorazepam (Ativan) 4 mg PRN Q15MIN PRN IV ANXIETY / AGITATION; Start 04/20/18 at 22:15; Stop 04/22/18 at 14:35; Status DC Levetiracetam (Keppra) 500 mg BID PO Last administered on 04/24/18at 09:07; Start 04/21/18 at 09:00 Gadobutrol (Gadavist) 10 mmol 1X ONCE IV Last administered on 04/21/18at 14:14 ; Start 04/21/18 at 14:00; Stop 04/21/18 at 14:01; Status DC Albuterol/ Ipratropium (Duoneb) 3 ml RTQID NEB Last administered on 04/24/18at 07:50; Start 04/21/18 at 20:00 Enoxaparin Sodium (Lovenox 40mg Syringe) 40 mg Q24H SQ ; Start 04/24/18 at 12: 00 Active Scripts Active Catapres (Clonidine Hcl) 0.1 Mg Tablet 0.1 Mg PO PRN Q1HR PRN 14 Days Withdrawal symptoms Reported Proair Hfa Inhaler (Albuterol Sulfate) 8.5 Gm Hfa.aer.ad 1 Puff INH PRN Q4HRS PRN Duoneb 0.5-3(2.5) Mg/3 Ml (Albuterol/Ipratropium) 3 Ml Ampul.neb 3 Ml NEB Q2HR PRN Symbicort 160-4.5 Mcg Inhaler (Budesonide/Formoterol Fumarate) 10.2 Gm Hfa.aer.ad 2 Puff IH BID Prilosec Otc (Omeprazole Magnesium) 20 Mg Tablet.dr 1 Tab PO DAILY Theophylline (Theophylline Anhydrous) 400 Mg Tablet.er 300 Mg PO BID Vitals/I & O Vital Sign - Last 24 Hours 04/23/18 04/23/18 04/23/18 04/23/18 11:33 11:36 15:00 15:47 Temp 99.1 98.1 99.1 98.1 Pulse 96 110 Resp 20 16 B/P (MAP) 113/66 (82) 112/71 (85) Pulse Ox 98 94 94 O2 Delivery Room Air Room Air Room Air Room Air 04/23/18 04/23/18 04/23/18 04/24/18 18:27 19:00 23:00 03:00 Temp 99.0 99.1 98.9 99.0 99.1 98.9 Pulse 93 89 94 Resp 20 18 20 B/P (MAP) 131/91 (104) 110/77 (88) 127/76 (93) Pulse Ox 96 92 94 94 O2 Delivery Room Air Room Air Room Air 04/24/18 04/24/18 04/24/18 07:00 07:50 08:00 Temp 97.9 97.9 Pulse 118 Resp 22 B/P (MAP) 141/89 (106) Pulse Ox 94 97 O2 Delivery Room Air Room Air Intake and Output 04/23/18 04/23/18 04/24/18 15:00 23:00 07:00 Intake Total 150 ml 240 ml 115 ml Output Total 700 ml 600 ml Balance 150 ml -460 ml -485 ml JUANCARLOS CULP MD Apr 24, 2018 11:34
[2018-04-24] MEDS ORDERED: ENOXAPARIN 40 MG/0.4 ML SYRINGE. SQ SCH (12:00)
[2018-04-24 15:00] VITALS: BP 124/74
--- NOTE | 2018-04-24 15:04 | RAD ---
Bilateral lower extremity venous doppler ultrasound History: Left lower extremity pain, swelling, and redness Comparison: None Findings: Multiple grayscale, color, and duplex spectral analysis sonographic images were acquired of the bilateral lower extremity veins to evaluate for the presence of DVT. On the right, there is normal compression and color flow from the right common femoral to the popliteal veins with normal phasicity, also normal color flow of segments of the right calf veins. On the left, there is extensive abnormal occlusive echogenicity from the left common femoral vein to the calf veins. Left peroneal veins could not be well visualized. Impression: 1. There is extensive occlusive thrombus on the left from the common femoral vein to the calf veins. 2. There is no evidence of deep venous thrombosis of the right lower extremity. Critical result: Findings discussed with patient's nurse Mariam at 04/24/2018 3:01 PM. Electronically signed by: Cl Holliday MD (04/24/2018 3:01 PM) [id number]
[2018-04-24 19:00] VITALS: BP 137/67
[2018-04-24] MEDS: ACETAMINOPHEN 325 MG TABLET. PO PRN (20:24)
--- NOTE | 2018-04-24 21:17 | RAD ---
EXAM: CHEST 1 VIEW. HISTORY: Fever and left chest pain. COMPARISON: 04/02/2018. FINDINGS: A frontal view of the chest is obtained. There are no confluent infiltrates. There is no pneumothorax or pleural effusion. The heart is not enlarged. IMPRESSION: 1. No confluent infiltrates. Electronically signed by: Rolando Mitchell MD (04/24/2018 9:14 PM) [facility]
[2018-04-24 23:00] VITALS: BP 128/83
[2018-04-24 23:06] LABS: BILIRUBIN,URINE NEGATIVE (NEG); CLARITY,URINE CLEAR; COLOR,URINE YELLOW; NITRITE,URINE NEGATIVE (NEG); PH,URINE 5.5; PROTEIN,URINE NEGATIVE (NEG-TRACE); UROBILINOGEN,URINE 0.2 mg/dL (0.2 mg/dL)
[2018-04-24 23:13] LABS: RBC,URINE 0 /HPF (0-2)
[2018-04-24 23:14] LABS: BACTERIA,URINE 0 /HPF (0-FEW); WBC,URINE RARE /HPF (0-4)
[2018-04-25] VITALS (7 sets, daily range): BP systolic 101–135; BP diastolic 72–85
[2018-04-25 05:28] LABS: BASO # 0.1 x10^3/uL (0.0-0.2); BASO % 1 % (0-3); EOS # 0.3 x10^3/uL (0.0-0.7); EOS % 3 % (0-3); HEMATOCRIT 33.6 % (39.0-53.0); LYMPH # 2.1 x10^3/uL (1.0-4.8); LYMPH % 19 % (24-48); MEAN CORPUSCULAR HEMOGLOBIN 26 pg (25-35); MEAN CORPUSCULAR HGB CONC 33 g/dL (31-37); MEAN CORPUSCULAR VOLUME 79 fL (79-100); MONO # 1.1 x10^3/uL (0.0-1.1); MONO % 11 % (0-9); NEUT # 7.2 x10^3uL (1.8-7.7); NEUT % 66 % (31-73); PLATELET COUNT 212 x10^3/uL (140-400); RED BLOOD COUNT 4.25 x10^6/uL (4.30-5.70); RED CELL DISTRIBUTION WIDTH 20.6 % (11.5-14.5); WHITE BLOOD COUNT 10.8 x10^3/uL (4.0-11.0)
[2018-04-25 05:49] LABS: CALCIUM 9.7 mg/dL (8.5-10.1); CREATININE 0.8 mg/dL (0.7-1.3); GFR 106.5; POTASSIUM 3.8 mmol/L (3.5-5.1)
[2018-04-25] MEDS: IPRATRPIUM/ALBUTEROL 0.5/2.5MG 3 ML NEBU. NEB SCH ×4 (07:02→18:17)
[2018-04-25] MEDS: levETIRAcetam 500 MG TABLET PO SCH ×2 (08:53→19:48)
[2018-04-25] MEDS: MULTIVITAMIN with MINERAL TABLET. PO SCH (08:53)
[2018-04-25] MEDS: MULTIVIT INFUSN,ADULT 4,VIT K 10 ML, THIAMINE INJ 100 MG, FOLIC ACID INJ 1 MG in IV NOR... IV SCH (08:54)
[2018-04-25] MEDS: FOLIC ACID 1 MG TABLET. PO SCH (08:54)
[2018-04-25 09:39] LABS: PLT ESTIMATE ADEQUATE (ADEQUATE)
[2018-04-25 09:52] LABS: ANISOCYTOSIS PRESENT
--- NOTE | 2018-04-25 11:13 | PDOC ---
PROGRESS NOTES Chief Complaint Chief Complaint Postural tremor consistent with essential tremor Possible seizure episodes, partial-complex. 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 Alcoholism, prior metabolic encephalopathy Substance use disorder History of Present Illness History of Present Illness Pt has a chronic history of severe alcohol abuse. He is not tremulous at this time. Neurology notes, per record states to start Keppra for 2-6 months and follow up with neurology in 4-6 weeks. Neurology progress note states pt needs to abstain from alcohol and receive both mental and physical therapy to improve tremor symptoms and weakness. Discussed with pt about DVT found yesterday on U/S and increasing Lovenox Pt alert and oriented; affect appropriate DW RN VSS Vitals Vitals Vital Signs Date Time Temp Pulse Resp B/P (MAP) Pulse Ox O2 Delivery O2 Flow Rate FiO2 04/25/18 10:59 Room Air 04/25/18 10:39 98.6 113 20 131/85 (100) 94 98.6 Physical Exam General: Cooperative, No acute distress Heart: Regular rate, Normal S1 Lungs: Clear, Other Abdomen: Normal bowel sounds, Soft Extremities: No clubbing, No edema, Normal pulses Skin: No rashes, No breakdown, No significant lesion Labs LABS Laboratory Tests Test 04/24/18 22:30 04/25/18 05:00 Urine Collection Type Unknown Urine Color Yellow Urine Clarity Clear Urine pH 5.5 Urine Specific [place] 1.020 Urine Protein Negative mg/dL (NEG-TRACE) Urine Glucose (UA) Negative mg/dL (NEG) Urine Ketones (Stick) Negative mg/dL (NEG) Urine Blood Negative (NEG) Urine Nitrite Negative (NEG) Urine Bilirubin Negative (NEG) Urine Urobilinogen Dipstick 0.2 mg/dL (0.2 mg/dL) Urine Leukocyte Esterase Negative (NEG) Urine RBC 0 /HPF (0-2) Urine WBC Rare /HPF (0-4) Urine Squamous Epithelial Cells None /LPF Urine Bacteria 0 /HPF (0-FEW) Urine Mucus Mod /LPF White Blood Count 10.8 x10^3/uL (4.0-11.0) Red Blood Count 4.25 x10^6/uL (4.30-5.70) Hemoglobin 11.0 g/dL (13.0-17.5) Hematocrit 33.6 % (39.0-53.0) Mean Corpuscular Volume 79 fL (79-100) Mean Corpuscular Hemoglobin 26 pg (25-35) Mean Corpuscular Hemoglobin Concent 33 g/dL (31-37) Red Cell Distribution Width 20.6 % (11.5-14.5) Platelet Count 212 x10^3/uL (140-400) Neutrophils (%) (Auto) 66 % (31-73) Lymphocytes (%) (Auto) 19 % (24-48) Monocytes (%) (Auto) 11 % (0-9) Eosinophils (%) (Auto) 3 % (0-3) Basophils (%) (Auto) 1 % (0-3) Neutrophils # (Auto) 7.2 x10^3uL (1.8-7.7) Lymphocytes # (Auto) 2.1 x10^3/uL (1.0-4.8) Monocytes # (Auto) 1.1 x10^3/uL (0.0-1.1) Eosinophils # (Auto) 0.3 x10^3/uL (0.0-0.7) Basophils # (Auto) 0.1 x10^3/uL (0.0-0.2) Platelet Estimate Adequate (ADEQUATE) Anisocytosis Present Sodium Level 137 mmol/L (136-145) Potassium Level 3.8 mmol/L (3.5-5.1) Chloride Level 99 mmol/L (98-107) Carbon Dioxide Level 26 mmol/L (21-32) Anion Gap 12 (6-14) Blood Urea Nitrogen 13 mg/dL (8-26) Creatinine 0.8 mg/dL (0.7-1.3) Estimated GFR (Cockcroft-Gault) 106.5 Glucose Level 75 mg/dL (70-99) Calcium Level 9.7 mg/dL (8.5-10.1) Review of Systems Review of Systems CO fatigue CO hunger Assessment and Plan Assessmemt and Plan Postural tremor consistent with essential tremor Possible seizure episodes, partial-complex. 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 Alcoholism, prior metabolic encephalopathy Substance use disorder Plan: Lovenox 1mg/kg bid for DVT Home meds Labs awaiting medicare approval PT/OT Comment Review of Relevant I have reviewed the following items wali (where applicable) has been applied. Labs Laboratory Tests Test 04/24/18 03:50 04/24/18 22:30 04/25/18 05:00 White Blood Count 9.8 x10^3/uL (4.0-11.0) 10.8 x10^3/uL (4.0-11.0) Red Blood Count 4.43 x10^6/uL (4.30-5.70) 4.25 x10^6/uL (4.30-5.70) Hemoglobin 11.4 g/dL (13.0-17.5) 11.0 g/dL (13.0-17.5) Hematocrit 34.7 % (39.0-53.0) 33.6 % (39.0-53.0) Mean Corpuscular Volume 78 fL (79-100) 79 fL (79-100) Mean Corpuscular Hemoglobin 26 pg (25-35) 26 pg (25-35) Mean Corpuscular Hemoglobin Concent 33 g/dL (31-37) 33 g/dL (31-37) Red Cell Distribution Width 20.5 % (11.5-14.5) 20.6 % (11.5-14.5) Platelet Count 247 x10^3/uL (140-400) 212 x10^3/uL (140-400) Neutrophils (%) (Auto) 67 % (31-73) 66 % (31-73) Lymphocytes (%) (Auto) 19 % (24-48) 19 % (24-48) Monocytes (%) (Auto) 10 % (0-9) 11 % (0-9) Eosinophils (%) (Auto) 4 % (0-3) 3 % (0-3) Basophils (%) (Auto) 1 % (0-3) 1 % (0-3) Neutrophils # (Auto) 6.5 x10^3uL (1.8-7.7) 7.2 x10^3uL (1.8-7.7) Lymphocytes # (Auto) 1.9 x10^3/uL (1.0-4.8) 2.1 x10^3/uL (1.0-4.8) Monocytes # (Auto) 1.0 x10^3/uL (0.0-1.1) 1.1 x10^3/uL (0.0-1.1) Eosinophils # (Auto) 0.4 x10^3/uL (0.0-0.7) 0.3 x10^3/uL (0.0-0.7) Basophils # (Auto) 0.1 x10^3/uL (0.0-0.2) 0.1 x10^3/uL (0.0-0.2) Sodium Level 137 mmol/L (136-145) 137 mmol/L (136-145) Potassium Level 4.1 mmol/L (3.5-5.1) 3.8 mmol/L (3.5-5.1) Chloride Level 101 mmol/L (98-107) 99 mmol/L (98-107) Carbon Dioxide Level 25 mmol/L (21-32) 26 mmol/L (21-32) Anion Gap 11 (6-14) 12 (6-14) Blood Urea Nitrogen 13 mg/dL (8-26) 13 mg/dL (8-26) Creatinine 0.8 mg/dL (0.7-1.3) 0.8 mg/dL (0.7-1.3) Estimated GFR (Cockcroft-Gault) 106.5 106.5 Glucose Level 110 mg/dL (70-99) 75 mg/dL (70-99) Calcium Level 9.9 mg/dL (8.5-10.1) 9.7 mg/dL (8.5-10.1) Urine Collection Type Unknown Urine Color Yellow Urine Clarity Clear Urine pH 5.5 Urine Specific [place] 1.020 Urine Protein Negative mg/dL (NEG-TRACE) Urine Glucose (UA) Negative mg/dL (NEG) Urine Ketones (Stick) Negative mg/dL (NEG) Urine Blood Negative (NEG) Urine Nitrite Negative (NEG) Urine Bilirubin Negative (NEG) Urine Urobilinogen Dipstick 0.2 mg/dL (0.2 mg/dL) Urine Leukocyte Esterase Negative (NEG) Urine RBC 0 /HPF (0-2) Urine WBC Rare /HPF (0-4) Urine Squamous Epithelial Cells None /LPF Urine Bacteria 0 /HPF (0-FEW) Urine Mucus Mod /LPF Platelet Estimate Adequate (ADEQUATE) Anisocytosis Present Laboratory Tests Test 04/24/18 22:30 04/25/18 05:00 Urine Collection Type Unknown Urine Color Yellow Urine Clarity Clear Urine pH 5.5 Urine Specific [place] 1.020 Urine Protein Negative mg/dL (NEG-TRACE) Urine Glucose (UA) Negative mg/dL (NEG) Urine Ketones (Stick) Negative mg/dL (NEG) Urine Blood Negative (NEG) Urine Nitrite Negative (NEG) Urine Bilirubin Negative (NEG) Urine Urobilinogen Dipstick 0.2 mg/dL (0.2 mg/dL) Urine Leukocyte Esterase Negative (NEG) Urine RBC 0 /HPF (0-2) Urine WBC Rare /HPF (0-4) Urine Squamous Epithelial Cells None /LPF Urine Bacteria 0 /HPF (0-FEW) Urine Mucus Mod /LPF White Blood Count 10.8 x10^3/uL (4.0-11.0) Red Blood Count 4.25 x10^6/uL (4.30-5.70) Hemoglobin 11.0 g/dL (13.0-17.5) Hematocrit 33.6 % (39.0-53.0) Mean Corpuscular Volume 79 fL (79-100) Mean Corpuscular Hemoglobin 26 pg (25-35) Mean Corpuscular Hemoglobin Concent 33 g/dL (31-37) Red Cell Distribution Width 20.6 % (11.5-14.5) Platelet Count 212 x10^3/uL (140-400) Neutrophils (%) (Auto) 66 % (31-73) Lymphocytes (%) (Auto) 19 % (24-48) Monocytes (%) (Auto) 11 % (0-9) Eosinophils (%) (Auto) 3 % (0-3) Basophils (%) (Auto) 1 % (0-3) Neutrophils # (Auto) 7.2 x10^3uL (1.8-7.7) Lymphocytes # (Auto) 2.1 x10^3/uL (1.0-4.8) Monocytes # (Auto) 1.1 x10^3/uL (0.0-1.1) Eosinophils # (Auto) 0.3 x10^3/uL (0.0-0.7) Basophils # (Auto) 0.1 x10^3/uL (0.0-0.2) Platelet Estimate Adequate (ADEQUATE) Anisocytosis Present Sodium Level 137 mmol/L (136-145) Potassium Level 3.8 mmol/L (3.5-5.1) Chloride Level 99 mmol/L (98-107) Carbon Dioxide Level 26 mmol/L (21-32) Anion Gap 12 (6-14) Blood Urea Nitrogen 13 mg/dL (8-26) Creatinine 0.8 mg/dL (0.7-1.3) Estimated GFR (Cockcroft-Gault) 106.5 Glucose Level 75 mg/dL (70-99) Calcium Level 9.7 mg/dL (8.5-10.1) Medications Current Medications Multivitamins 10 ml/Thiamine HCl 100 mg/Folic Acid 1 mg/Sodium Chloride 1,011.2 ml @ 100 mls/ hr DAILY IV Last administered on 04/25/18 08:54; Start at 09:00; Stop 04/25/18 at 19:07 Multivitamins (Thera M Plus) 1 tab DAILY PO Last administered on 04/25/18 08: 53; Start 04/21/18 at 09:00 Folic Acid (Folic Acid) 1 mg DAILY PO Last administered on 04/25/18 08:54; Start 04/21/18 at 09:00 Thiamine HCl 100 mg/Dextrose 51 ml @ 100 mls/hr DAILY IV Last administered on 04/21/18at 09:08; Start 04/21/18 at 09:00; Stop 04/21/18 at 17:17; Status DC Chlordiazepoxide (Librium) 50 mg PRN Q1HR PRN PO For CIWA 8-14; Start 04/20/18 at 22:15 Chlordiazepoxide (Librium) 100 mg PRN Q1HR PRN PO For CIWA 15 or greater; Start 04/20/18 at 22:15 Lorazepam (Ativan) 4 mg PRN Q1HR PRN PO For CIWA 8-14, 2nd CHOICE; Start at 22:15 Lorazepam (Ativan) 8 mg PRN Q1HR PRN PO CIWA 15 or greater,2nd CHOICE; Start 04/20/18 at 22:15 Lorazepam (Ativan) 2 mg PRN Q1HR PRN IV For CIWA 8-14 Last administered on 06/30at 23:05; Start 04/20/18 at 22:15 Lorazepam (Ativan) 4 mg PRN Q1HR PRN IV For CIWA 15 or greater Last administered on 04/22/18at 18:25; Start 04/20/18 at 22:15 Haloperidol Lactate (Haldol Inj) 5 mg PRN Q4HRS PRN IVP Hallucinatns,Confusn, Delirium Last administered on 04/24/18at 13:49; Start 04/20/18 at 22:15 Clonidine HCl (Catapres) 0.1 mg PRN Q1HR PRN PO SBP > 180 or DBP > 100, MRX3; Start 04/20/18 at 22:15 Lorazepam (Ativan) 2 mg PRN Q15MIN PRN IV ANXIETY / AGITATION; Start 04/20/18 at 22:15; Stop 04/22/18 at 14:35; Status DC Lorazepam (Ativan) 4 mg PRN Q15MIN PRN IV ANXIETY / AGITATION; Start 04/20/18 at 22:15; Stop 04/22/18 at 14:35; Status DC Levetiracetam (Keppra) 500 mg BID PO Last administered on 04/25/18at 08:53; Start 04/21/18 at 09:00 Gadobutrol (Gadavist) 10 mmol 1X ONCE IV Last administered on 04/21/18at 14:14 ; Start 04/21/18 at 14:00; Stop 04/21/18 at 14:01; Status DC Albuterol/ Ipratropium (Duoneb) 3 ml RTQID NEB Last administered on 04/25/18at 10:58; Start 04/21/18 at 20:00 Enoxaparin Sodium (Lovenox 40mg Syringe) 40 mg Q24H SQ Last administered on 06/30at 12:51; Start 04/24/18 at 12:00; Stop 04/24/18 at 14:57; Status DC Enoxaparin Sodium (Lovenox Per Pharmacy Treatment Dosing) 1 each PRN DAILY PRN MC SEE COMMENTS; Start 04/24/18 at 15:00; Status UNV Enoxaparin Sodium (Lovenox 60mg Syringe) 60 mg 1X ONCE SQ Last administered on 04/24/18at 15:25; Start 04/24/18 at 15:00; Stop 04/24/18 at 15:01; Status DC Enoxaparin Sodium (Lovenox 100mg Syringe) 90 mg Q12HR SQ Last administered on 04/25/18at 08:55; Start 04/24/18 at 23:00 Acetaminophen (Tylenol) 650 mg PRN Q6HRS PRN PO MILD PAIN / TEMP Last administered on 04/24/18at 20:24; Start 04/24/18 at 20:00 Active Scripts Active Catapres (Clonidine Hcl) 0.1 Mg Tablet 0.1 Mg PO PRN Q1HR PRN 14 Days Withdrawal symptoms Reported Proair Hfa Inhaler (Albuterol Sulfate) 8.5 Gm Hfa.aer.ad 1 Puff INH PRN Q4HRS PRN Duoneb 0.5-3(2.5) Mg/3 Ml (Albuterol/Ipratropium) 3 Ml Ampul.neb 3 Ml NEB Q2HR PRN Symbicort 160-4.5 Mcg Inhaler (Budesonide/Formoterol Fumarate) 10.2 Gm Hfa.aer.ad 2 Puff IH BID Prilosec Otc (Omeprazole Magnesium) 20 Mg Tablet.dr 1 Tab PO DAILY Theophylline (Theophylline Anhydrous) 400 Mg Tablet.er 300 Mg PO BID Vitals/I & O Vital Sign - Last 24 Hours 04/24/18 04/24/18 04/24/18 04/24/18 11:45 15:00 15:46 19:00 Temp 98.8 101.5 98.8 101.5 Pulse 109 109 Resp 24 28 B/P (MAP) 124/74 (91) 137/67 (90) Pulse Ox 98 96 96 94 O2 Delivery Room Air Room Air Room Air 04/24/18 04/24/18 04/24/18 04/25/18 19:22 20:15 23:00 03:00 Temp 97.9 97.9 97.9 97.9 Pulse 105 113 Resp 24 22 B/P (MAP) 128/83 (98) 125/74 (91) Pulse Ox 98 96 93 O2 Delivery Room Air Room Air Room Air Room Air 04/25/18 04/25/18 04/25/18 04/25/18 07:00 07:04 08:00 10:39 Temp 98.9 98.6 98.9 98.6 Pulse 107 113 Resp 18 20 B/P (MAP) 101/78 (86) 131/85 (100) Pulse Ox 99 96 94 O2 Delivery Room Air Room Air Room Air Room Air 04/25/18 10:59 O2 Delivery Room Air Intake and Output 04/24/18 04/24/18 04/25/18 15:00 23:00 07:00 Intake Total 120 ml 1500 ml 450 ml Output Total 1500 ml 250 ml Balance 120 ml 0 ml 200 ml AMY FROST III DO Apr 25, 2018 11:13
--- NOTE | 2018-04-25 15:26 | PDOC ---
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 Alcoholism, prior metabolic encephalopathy Psychogenic component, patient refuses therapy, makes the nurses feed him and provide total care, tremors appear factitious as well, but there may be a component of essential tremor Diffuse weakness, can't even get up and physical therapy, but able to give pretty good strength while in bed Plan Continue levetiracetam, 2-6 months No further studies needed. Encouraged patient to cooperate with therapy and to not have the nurses do everything for him I gave the patient reassurance that if he abstains from alcohol and get some therapy, physical and mental, he should continue to improve. With continued weakness I'll check an MRI of the cervical spine I'll also do an EMG on 04/27 to rule out myopathy or neuropathy Objective Vital Signs Date Time Temp Pulse Resp B/P (MAP) Pulse Ox O2 Delivery O2 Flow Rate FiO2 04/25/18 15:00 98.0 110 20 135/80 (98) 95 Room Air 98.0 04/25/18 12:25 2.0 Intake and Output 04/25/18 07:00 Intake Total 2070 ml Output Total 1750 ml Balance 320 ml Intake Oral 1070 ml IV Total 1000 ml Output Urine Total 1750 ml # Voids 4 PHYSICAL EXAM Alert. Oriented to time, place and person. PERRL, left pupil dilated due to iris injury. EOMI. CN: no focal findings. Muscle tone: normal. Muscle strength: 5/5 DTR: 2+ Plantar reflex: flexor Gait: not examined in bed. Sensory exam: no abnormal findings. Tremors: appear voluntary Review of Relevant I have reviewed the following items wali (where applicable) has been applied. Labs Laboratory Tests Test 04/24/18 03:50 04/24/18 22:30 04/25/18 05:00 White Blood Count 9.8 x10^3/uL (4.0-11.0) 10.8 x10^3/uL (4.0-11.0) Red Blood Count 4.43 x10^6/uL (4.30-5.70) 4.25 x10^6/uL (4.30-5.70) Hemoglobin 11.4 g/dL (13.0-17.5) 11.0 g/dL (13.0-17.5) Hematocrit 34.7 % (39.0-53.0) 33.6 % (39.0-53.0) Mean Corpuscular Volume 78 fL (79-100) 79 fL (79-100) Mean Corpuscular Hemoglobin 26 pg (25-35) 26 pg (25-35) Mean Corpuscular Hemoglobin Concent 33 g/dL (31-37) 33 g/dL (31-37) Red Cell Distribution Width 20.5 % (11.5-14.5) 20.6 % (11.5-14.5) Platelet Count 247 x10^3/uL (140-400) 212 x10^3/uL (140-400) Neutrophils (%) (Auto) 67 % (31-73) 66 % (31-73) Lymphocytes (%) (Auto) 19 % (24-48) 19 % (24-48) Monocytes (%) (Auto) 10 % (0-9) 11 % (0-9) Eosinophils (%) (Auto) 4 % (0-3) 3 % (0-3) Basophils (%) (Auto) 1 % (0-3) 1 % (0-3) Neutrophils # (Auto) 6.5 x10^3uL (1.8-7.7) 7.2 x10^3uL (1.8-7.7) Lymphocytes # (Auto) 1.9 x10^3/uL (1.0-4.8) 2.1 x10^3/uL (1.0-4.8) Monocytes # (Auto) 1.0 x10^3/uL (0.0-1.1) 1.1 x10^3/uL (0.0-1.1) Eosinophils # (Auto) 0.4 x10^3/uL (0.0-0.7) 0.3 x10^3/uL (0.0-0.7) Basophils # (Auto) 0.1 x10^3/uL (0.0-0.2) 0.1 x10^3/uL (0.0-0.2) Sodium Level 137 mmol/L (136-145) 137 mmol/L (136-145) Potassium Level 4.1 mmol/L (3.5-5.1) 3.8 mmol/L (3.5-5.1) Chloride Level 101 mmol/L (98-107) 99 mmol/L (98-107) Carbon Dioxide Level 25 mmol/L (21-32) 26 mmol/L (21-32) Anion Gap 11 (6-14) 12 (6-14) Blood Urea Nitrogen 13 mg/dL (8-26) 13 mg/dL (8-26) Creatinine 0.8 mg/dL (0.7-1.3) 0.8 mg/dL (0.7-1.3) Estimated GFR (Cockcroft-Gault) 106.5 106.5 Glucose Level 110 mg/dL (70-99) 75 mg/dL (70-99) Calcium Level 9.9 mg/dL (8.5-10.1) 9.7 mg/dL (8.5-10.1) Urine Collection Type Unknown Urine Color Yellow Urine Clarity Clear Urine pH 5.5 Urine Specific [place] 1.020 Urine Protein Negative mg/dL (NEG-TRACE) Urine Glucose (UA) Negative mg/dL (NEG) Urine Ketones (Stick) Negative mg/dL (NEG) Urine Blood Negative (NEG) Urine Nitrite Negative (NEG) Urine Bilirubin Negative (NEG) Urine Urobilinogen Dipstick 0.2 mg/dL (0.2 mg/dL) Urine Leukocyte Esterase Negative (NEG) Urine RBC 0 /HPF (0-2) Urine WBC Rare /HPF (0-4) Urine Squamous Epithelial Cells None /LPF Urine Bacteria 0 /HPF (0-FEW) Urine Mucus Mod /LPF Platelet Estimate Adequate (ADEQUATE) Anisocytosis Present Laboratory Tests Test 04/24/18 22:30 04/25/18 05:00 Urine Collection Type Unknown Urine Color Yellow Urine Clarity Clear Urine pH 5.5 Urine Specific [place] 1.020 Urine Protein Negative mg/dL (NEG-TRACE) Urine Glucose (UA) Negative mg/dL (NEG) Urine Ketones (Stick) Negative mg/dL (NEG) Urine Blood Negative (NEG) Urine Nitrite Negative (NEG) Urine Bilirubin Negative (NEG) Urine Urobilinogen Dipstick 0.2 mg/dL (0.2 mg/dL) Urine Leukocyte Esterase Negative (NEG) Urine RBC 0 /HPF (0-2) Urine WBC Rare /HPF (0-4) Urine Squamous Epithelial Cells None /LPF Urine Bacteria 0 /HPF (0-FEW) Urine Mucus Mod /LPF White Blood Count 10.8 x10^3/uL (4.0-11.0) Red Blood Count 4.25 x10^6/uL (4.30-5.70) Hemoglobin 11.0 g/dL (13.0-17.5) Hematocrit 33.6 % (39.0-53.0) Mean Corpuscular Volume 79 fL (79-100) Mean Corpuscular Hemoglobin 26 pg (25-35) Mean Corpuscular Hemoglobin Concent 33 g/dL (31-37) Red Cell Distribution Width 20.6 % (11.5-14.5) Platelet Count 212 x10^3/uL (140-400) Neutrophils (%) (Auto) 66 % (31-73) Lymphocytes (%) (Auto) 19 % (24-48) Monocytes (%) (Auto) 11 % (0-9) Eosinophils (%) (Auto) 3 % (0-3) Basophils (%) (Auto) 1 % (0-3) Neutrophils # (Auto) 7.2 x10^3uL (1.8-7.7) Lymphocytes # (Auto) 2.1 x10^3/uL (1.0-4.8) Monocytes # (Auto) 1.1 x10^3/uL (0.0-1.1) Eosinophils # (Auto) 0.3 x10^3/uL (0.0-0.7) Basophils # (Auto) 0.1 x10^3/uL (0.0-0.2) Platelet Estimate Adequate (ADEQUATE) Anisocytosis Present Sodium Level 137 mmol/L (136-145) Potassium Level 3.8 mmol/L (3.5-5.1) Chloride Level 99 mmol/L (98-107) Carbon Dioxide Level 26 mmol/L (21-32) Anion Gap 12 (6-14) Blood Urea Nitrogen 13 mg/dL (8-26) Creatinine 0.8 mg/dL (0.7-1.3) Estimated GFR (Cockcroft-Gault) 106.5 Glucose Level 75 mg/dL (70-99) Calcium Level 9.7 mg/dL (8.5-10.1) Medications Current Medications Multivitamins 10 ml/Thiamine HCl 100 mg/Folic Acid 1 mg/Sodium Chloride 1,011.2 ml @ 100 mls/ hr DAILY IV Last administered on 04/25/18at 08:54; Start at 09:00; Stop 04/25/18 at 19:07 Multivitamins (Thera M Plus) 1 tab DAILY PO Last administered on 04/25/18at 08: 53; Start 04/21/18 at 09:00 Folic Acid (Folic Acid) 1 mg DAILY PO Last administered on 04/25/18 08:54; Start 04/21/18 at 09:00 Thiamine HCl 100 mg/Dextrose 51 ml @ 100 mls/hr DAILY IV Last administered on 04/21/18at 09:08; Start 04/21/18 at 09:00; Stop 04/21/18 at 17:17; Status DC Chlordiazepoxide (Librium) 50 mg PRN Q1HR PRN PO For CIWA 8-14; Start 04/20/18 at 22:15 Chlordiazepoxide (Librium) 100 mg PRN Q1HR PRN PO For CIWA 15 or greater; Start 04/20/18 at 22:15 Lorazepam (Ativan) 4 mg PRN Q1HR PRN PO For CIWA 8-14, 2nd CHOICE; Start at 22:15 Lorazepam (Ativan) 8 mg PRN Q1HR PRN PO CIWA 15 or greater,2nd CHOICE; Start 04/20/18 at 22:15 Lorazepam (Ativan) 2 mg PRN Q1HR PRN IV For CIWA 8-14 Last administered on at 11:37; Start 04/20/18 at 22:15 Lorazepam (Ativan) 4 mg PRN Q1HR PRN IV For CIWA 15 or greater Last administered on 04/22/18at 18:25; Start 04/20/18 at 22:15 Haloperidol Lactate (Haldol Inj) 5 mg PRN Q4HRS PRN IVP Hallucinatns,Confusn, Delirium Last administered on 04/24/18at 13:49; Start 04/20/18 at 22:15 Clonidine HCl (Catapres) 0.1 mg PRN Q1HR PRN PO SBP > 180 or DBP > 100, MRX3; Start 04/20/18 at 22:15 Lorazepam (Ativan) 2 mg PRN Q15MIN PRN IV ANXIETY / AGITATION; Start 04/20/18 at 22:15; Stop 04/22/18 at 14:35; Status DC Lorazepam (Ativan) 4 mg PRN Q15MIN PRN IV ANXIETY / AGITATION; Start 04/20/18 at 22:15; Stop 04/22/18 at 14:35; Status DC Levetiracetam (Keppra) 500 mg BID PO Last administered on 04/25/18at 08:53; Start 04/21/18 at 09:00 Gadobutrol (Gadavist) 10 mmol 1X ONCE IV Last administered on 04/21/18at 14:14 ; Start 04/21/18 at 14:00; Stop 04/21/18 at 14:01; Status DC Albuterol/ Ipratropium (Duoneb) 3 ml RTQID NEB Last administered on 04/25/18at 14:49; Start 04/21/18 at 20:00 Enoxaparin Sodium (Lovenox 40mg Syringe) 40 mg Q24H SQ Last administered on 06/30at 12:51; Start 04/24/18 at 12:00; Stop 04/24/18 at 14:57; Status DC Enoxaparin Sodium (Lovenox Per Pharmacy Treatment Dosing) 1 each PRN DAILY PRN MC SEE COMMENTS; Start 04/24/18 at 15:00; Status UNV Enoxaparin Sodium (Lovenox 60mg Syringe) 60 mg 1X ONCE SQ Last administered on 04/24/18at 15:25; Start 04/24/18 at 15:00; Stop 04/24/18 at 15:01; Status DC Enoxaparin Sodium (Lovenox 100mg Syringe) 90 mg Q12HR SQ Last administered on 04/25/18at 08:55; Start 04/24/18 at 23:00 Acetaminophen (Tylenol) 650 mg PRN Q6HRS PRN PO MILD PAIN / TEMP Last administered on 04/24/18at 20:24; Start 04/24/18 at 20:00 Active Scripts Active Catapres (Clonidine Hcl) 0.1 Mg Tablet 0.1 Mg PO PRN Q1HR PRN 14 Days Withdrawal symptoms Reported Proair Hfa Inhaler (Albuterol Sulfate) 8.5 Gm Hfa.aer.ad 1 Puff INH PRN Q4HRS PRN Duoneb 0.5-3(2.5) Mg/3 Ml (Albuterol/Ipratropium) 3 Ml Ampul.neb 3 Ml NEB Q2HR PRN Symbicort 160-4.5 Mcg Inhaler (Budesonide/Formoterol Fumarate) 10.2 Gm Hfa.aer.ad 2 Puff IH BID Prilosec Otc (Omeprazole Magnesium) 20 Mg Tablet.dr 1 Tab PO DAILY Theophylline (Theophylline Anhydrous) 400 Mg Tablet.er 300 Mg PO BID Vitals/I & O Vital Sign - Last 24 Hours 04/24/18 04/24/18 04/24/18 04/24/18 15:46 19:00 19:22 20:15 Temp 101.5 101.5 Pulse 109 Resp 28 B/P (MAP) 137/67 (90) Pulse Ox 96 94 98 O2 Delivery Room Air Room Air Room Air Room Air 04/24/18 04/25/18 04/25/18 04/25/18 23:00 03:00 07:00 07:04 Temp 97.9 97.9 98.9 97.9 97.9 98.9 Pulse 105 113 107 Resp 24 22 18 B/P (MAP) 128/83 (98) 125/74 (91) 101/78 (86) Pulse Ox 96 93 99 96 O2 Delivery Room Air Room Air Room Air Room Air 04/25/18 04/25/18 04/25/18 04/25/18 08:00 10:39 10:59 12:25 Temp 98.6 97.8 98.6 97.8 Pulse 113 71 Resp 20 20 B/P (MAP) 131/85 (100) 132/79 (96) Pulse Ox 94 99 O2 Delivery Room Air Room Air Room Air Nasal Cannula O2 Flow Rate 2.0 04/25/18 04/25/18 14:50 15:00 Temp 98.0 98.0 Pulse 110 Resp 20 B/P (MAP) 135/80 (98) Pulse Ox 95 O2 Delivery Room Air Room Air Intake and Output 04/24/18 04/24/18 04/25/18 15:00 23:00 07:00 Intake Total 120 ml 1500 ml 450 ml Output Total 1500 ml 250 ml Balance 120 ml 0 ml 200 ml JUANCARLOS CULP MD Apr 25, 2018 15:26
[2018-04-25] MEDS: ACETAMINOPHEN 325 MG TABLET. PO PRN (18:51)
[2018-04-26 03:00] VITALS: BP 108/75
[2018-04-26 06:58] LABS: CALCIUM 10.3 mg/dL (8.5-10.1); CREATININE 0.8 mg/dL (0.7-1.3); GFR 106.5; POTASSIUM 4.2 mmol/L (3.5-5.1)
[2018-04-26 06:59] LABS: BASO # 0.1 x10^3/uL (0.0-0.2); BASO % 1 % (0-3); EOS # 0.4 x10^3/uL (0.0-0.7); EOS % 4 % (0-3); HEMATOCRIT 35.6 % (39.0-53.0); HEMOGLOBIN 11.6 g/dL (13.0-17.5); LYMPH # 1.6 x10^3/uL (1.0-4.8); LYMPH % 19 % (24-48); MEAN CORPUSCULAR HEMOGLOBIN 26 pg (25-35); MEAN CORPUSCULAR HGB CONC 33 g/dL (31-37); MEAN CORPUSCULAR VOLUME 80 fL (79-100); MONO # 0.9 x10^3/uL (0.0-1.1); MONO % 11 % (0-9); NEUT # 5.6 x10^3uL (1.8-7.7); NEUT % 65 % (31-73); PLATELET COUNT 172 x10^3/uL (140-400); RED BLOOD COUNT 4.47 x10^6/uL (4.30-5.70); RED CELL DISTRIBUTION WIDTH 20.3 % (11.5-14.5); WHITE BLOOD COUNT 8.6 x10^3/uL (4.0-11.0)
[2018-04-26 07:00] VITALS: BP 125/78
[2018-04-26] MEDS: IPRATRPIUM/ALBUTEROL 0.5/2.5MG 3 ML NEBU. NEB SCH ×4 (07:09→19:32)
[2018-04-26] MEDS: FOLIC ACID 1 MG TABLET. PO SCH (09:10)
[2018-04-26] MEDS: MULTIVITAMIN with MINERAL TABLET. PO SCH (09:10)
[2018-04-26] MEDS: levETIRAcetam 500 MG TABLET PO SCH ×2 (09:10→21:46)
[2018-04-26 11:00] VITALS: BP 130/74
--- NOTE | 2018-04-26 13:21 | PDOC ---
PROGRESS NOTES Chief Complaint Chief Complaint Postural tremor consistent with essential tremor Left leg DVT Possible seizure episodes, partial-complex. 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 Alcoholism, prior metabolic encephalopathy Substance use disorder History of Present Illness History of Present Illness Pt has a chronic history of severe alcohol abuse. He is not tremulous at this time. Neurology notes, per record states to start Keppra for 2-6 months and follow up with neurology in 4-6 weeks. Neurology progress note states pt needs to abstain from alcohol and receive both mental and physical therapy to improve tremor symptoms and weakness. Pt alert and oriented; affect appropriate, pt is complaining of leg pain. His left knee and thigh is TTP DW RN VSS Vitals Vitals Vital Signs Date Time Temp Pulse Resp B/P (MAP) Pulse Ox O2 Delivery O2 Flow Rate FiO2 04/26/18 11:35 Room Air 04/26/18 11:00 98.0 92 20 130/74 (92) 94 98.0 04/25/18 12:25 2.0 Physical Exam General: Cooperative, No acute distress Heart: Regular rate, Normal S1 Lungs: Clear, Other Abdomen: Normal bowel sounds, Soft Extremities: No clubbing, No edema, Normal pulses Skin: No rashes, No breakdown, No significant lesion Labs LABS Laboratory Tests Test 04/26/18 04:55 White Blood Count 8.6 x10^3/uL (4.0-11.0) Red Blood Count 4.47 x10^6/uL (4.30-5.70) Hemoglobin 11.6 g/dL (13.0-17.5) Hematocrit 35.6 % (39.0-53.0) Mean Corpuscular Volume 80 fL (79-100) Mean Corpuscular Hemoglobin 26 pg (25-35) Mean Corpuscular Hemoglobin Concent 33 g/dL (31-37) Red Cell Distribution Width 20.3 % (11.5-14.5) Platelet Count 172 x10^3/uL (140-400) Neutrophils (%) (Auto) 65 % (31-73) Lymphocytes (%) (Auto) 19 % (24-48) Monocytes (%) (Auto) 11 % (0-9) Eosinophils (%) (Auto) 4 % (0-3) Basophils (%) (Auto) 1 % (0-3) Neutrophils # (Auto) 5.6 x10^3uL (1.8-7.7) Lymphocytes # (Auto) 1.6 x10^3/uL (1.0-4.8) Monocytes # (Auto) 0.9 x10^3/uL (0.0-1.1) Eosinophils # (Auto) 0.4 x10^3/uL (0.0-0.7) Basophils # (Auto) 0.1 x10^3/uL (0.0-0.2) Sodium Level 136 mmol/L (136-145) Potassium Level 4.2 mmol/L (3.5-5.1) Chloride Level 100 mmol/L (98-107) Carbon Dioxide Level 27 mmol/L (21-32) Anion Gap 9 (6-14) Blood Urea Nitrogen 13 mg/dL (8-26) Creatinine 0.8 mg/dL (0.7-1.3) Estimated GFR (Cockcroft-Gault) 106.5 Glucose Level 96 mg/dL (70-99) Calcium Level 10.3 mg/dL (8.5-10.1) Review of Systems Review of Systems CO fatigue CO pain Assessment and Plan Assessmemt and Plan Postural tremor consistent with essential tremor Left leg DVT Possible seizure episodes, partial-complex. 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 Alcoholism, prior metabolic encephalopathy Substance use disorder Plan: Cecelia PT/OT Labs Home Meds PRN narcotics Discharge disposition pending ( Probably will need LTC?, Awaiting insurance) Comment Review of Relevant I have reviewed the following items wali (where applicable) has been applied. Labs Laboratory Tests Test 04/24/18 22:30 04/25/18 05:00 04/26/18 04:55 Urine Collection Type Unknown Urine Color Yellow Urine Clarity Clear Urine pH 5.5 Urine Specific [place] 1.020 Urine Protein Negative mg/dL (NEG-TRACE) Urine Glucose (UA) Negative mg/dL (NEG) Urine Ketones (Stick) Negative mg/dL (NEG) Urine Blood Negative (NEG) Urine Nitrite Negative (NEG) Urine Bilirubin Negative (NEG) Urine Urobilinogen Dipstick 0.2 mg/dL (0.2 mg/dL) Urine Leukocyte Esterase Negative (NEG) Urine RBC 0 /HPF (0-2) Urine WBC Rare /HPF (0-4) Urine Squamous Epithelial Cells None /LPF Urine Bacteria 0 /HPF (0-FEW) Urine Mucus Mod /LPF White Blood Count 10.8 x10^3/uL (4.0-11.0) 8.6 x10^3/uL (4.0-11.0) Red Blood Count 4.25 x10^6/uL (4.30-5.70) 4.47 x10^6/uL (4.30-5.70) Hemoglobin 11.0 g/dL (13.0-17.5) 11.6 g/dL (13.0-17.5) Hematocrit 33.6 % (39.0-53.0) 35.6 % (39.0-53.0) Mean Corpuscular Volume 79 fL (79-100) 80 fL (79-100) Mean Corpuscular Hemoglobin 26 pg (25-35) 26 pg (25-35) Mean Corpuscular Hemoglobin Concent 33 g/dL (31-37) 33 g/dL (31-37) Red Cell Distribution Width 20.6 % (11.5-14.5) 20.3 % (11.5-14.5) Platelet Count 212 x10^3/uL (140-400) 172 x10^3/uL (140-400) Neutrophils (%) (Auto) 66 % (31-73) 65 % (31-73) Lymphocytes (%) (Auto) 19 % (24-48) 19 % (24-48) Monocytes (%) (Auto) 11 % (0-9) 11 % (0-9) Eosinophils (%) (Auto) 3 % (0-3) 4 % (0-3) Basophils (%) (Auto) 1 % (0-3) 1 % (0-3) Neutrophils # (Auto) 7.2 x10^3uL (1.8-7.7) 5.6 x10^3uL (1.8-7.7) Lymphocytes # (Auto) 2.1 x10^3/uL (1.0-4.8) 1.6 x10^3/uL (1.0-4.8) Monocytes # (Auto) 1.1 x10^3/uL (0.0-1.1) 0.9 x10^3/uL (0.0-1.1) Eosinophils # (Auto) 0.3 x10^3/uL (0.0-0.7) 0.4 x10^3/uL (0.0-0.7) Basophils # (Auto) 0.1 x10^3/uL (0.0-0.2) 0.1 x10^3/uL (0.0-0.2) Platelet Estimate Adequate (ADEQUATE) Anisocytosis Present Sodium Level 137 mmol/L (136-145) 136 mmol/L (136-145) Potassium Level 3.8 mmol/L (3.5-5.1) 4.2 mmol/L (3.5-5.1) Chloride Level 99 mmol/L (98-107) 100 mmol/L (98-107) Carbon Dioxide Level 26 mmol/L (21-32) 27 mmol/L (21-32) Anion Gap 12 (6-14) 9 (6-14) Blood Urea Nitrogen 13 mg/dL (8-26) 13 mg/dL (8-26) Creatinine 0.8 mg/dL (0.7-1.3) 0.8 mg/dL (0.7-1.3) Estimated GFR (Cockcroft-Gault) 106.5 106.5 Glucose Level 75 mg/dL (70-99) 96 mg/dL (70-99) Calcium Level 9.7 mg/dL (8.5-10.1) 10.3 mg/dL (8.5-10.1) Laboratory Tests Test 04/26/18 04:55 White Blood Count 8.6 x10^3/uL (4.0-11.0) Red Blood Count 4.47 x10^6/uL (4.30-5.70) Hemoglobin 11.6 g/dL (13.0-17.5) Hematocrit 35.6 % (39.0-53.0) Mean Corpuscular Volume 80 fL (79-100) Mean Corpuscular Hemoglobin 26 pg (25-35) Mean Corpuscular Hemoglobin Concent 33 g/dL (31-37) Red Cell Distribution Width 20.3 % (11.5-14.5) Platelet Count 172 x10^3/uL (140-400) Neutrophils (%) (Auto) 65 % (31-73) Lymphocytes (%) (Auto) 19 % (24-48) Monocytes (%) (Auto) 11 % (0-9) Eosinophils (%) (Auto) 4 % (0-3) Basophils (%) (Auto) 1 % (0-3) Neutrophils # (Auto) 5.6 x10^3uL (1.8-7.7) Lymphocytes # (Auto) 1.6 x10^3/uL (1.0-4.8) Monocytes # (Auto) 0.9 x10^3/uL (0.0-1.1) Eosinophils # (Auto) 0.4 x10^3/uL (0.0-0.7) Basophils # (Auto) 0.1 x10^3/uL (0.0-0.2) Sodium Level 136 mmol/L (136-145) Potassium Level 4.2 mmol/L (3.5-5.1) Chloride Level 100 mmol/L (98-107) Carbon Dioxide Level 27 mmol/L (21-32) Anion Gap 9 (6-14) Blood Urea Nitrogen 13 mg/dL (8-26) Creatinine 0.8 mg/dL (0.7-1.3) Estimated GFR (Cockcroft-Gault) 106.5 Glucose Level 96 mg/dL (70-99) Calcium Level 10.3 mg/dL (8.5-10.1) Microbiology 04/24/18 Blood Culture - Preliminary, Resulted NO GROWTH AFTER 1 DAY Medications Current Medications Multivitamins 10 ml/Thiamine HCl 100 mg/Folic Acid 1 mg/Sodium Chloride 1,011.2 ml @ 100 mls/ hr DAILY IV Last administered on 04/25/18at 08:54; Start at 09:00; Stop 04/25/18 at 19:07; Status DC Multivitamins (Thera M Plus) 1 tab DAILY PO Last administered on 04/26/18at 09: 10; Start 04/21/18 at 09:00 Folic Acid (Folic Acid) 1 mg DAILY PO Last administered on 04/26/18at 09:10; Start 04/21/18 at 09:00 Thiamine HCl 100 mg/Dextrose 51 ml @ 100 mls/hr DAILY IV Last administered on 04/21/18at 09:08; Start 04/21/18 at 09:00; Stop 04/21/18 at 17:17; Status DC Chlordiazepoxide (Librium) 50 mg PRN Q1HR PRN PO For CIWA 8-14; Start 04/20/18 at 22:15 Chlordiazepoxide (Librium) 100 mg PRN Q1HR PRN PO For CIWA 15 or greater; Start 04/20/18 at 22:15 Lorazepam (Ativan) 4 mg PRN Q1HR PRN PO For CIWA 8-14, 2nd CHOICE; Start at 22:15 Lorazepam (Ativan) 8 mg PRN Q1HR PRN PO CIWA 15 or greater,2nd CHOICE; Start 04/20/18 at 22:15 Lorazepam (Ativan) 2 mg PRN Q1HR PRN IV For CIWA 8-14 Last administered on at 09:18; Start 04/20/18 at 22:15 Lorazepam (Ativan) 4 mg PRN Q1HR PRN IV For CIWA 15 or greater Last administered on 04/22/18at 18:25; Start 04/20/18 at 22:15 Haloperidol Lactate (Haldol Inj) 5 mg PRN Q4HRS PRN IVP Hallucinatns,Confusn, Delirium Last administered on 04/24/18at 13:49; Start 04/20/18 at 22:15 Clonidine HCl (Catapres) 0.1 mg PRN Q1HR PRN PO SBP > 180 or DBP > 100, MRX3; Start 04/20/18 at 22:15 Lorazepam (Ativan) 2 mg PRN Q15MIN PRN IV ANXIETY / AGITATION; Start 04/20/18 at 22:15; Stop 04/22/18 at 14:35; Status DC Lorazepam (Ativan) 4 mg PRN Q15MIN PRN IV ANXIETY / AGITATION; Start 04/20/18 at 22:15; Stop 04/22/18 at 14:35; Status DC Levetiracetam (Keppra) 500 mg BID PO Last administered on 04/26/18at 09:10; Start 04/21/18 at 09:00 Gadobutrol (Gadavist) 10 mmol 1X ONCE IV Last administered on 04/21/18at 14:14 ; Start 04/21/18 at 14:00; Stop 04/21/18 at 14:01; Status DC Albuterol/ Ipratropium (Duoneb) 3 ml RTQID NEB Last administered on 04/26/18at 11:34; Start 04/21/18 at 20:00 Enoxaparin Sodium (Lovenox 40mg Syringe) 40 mg Q24H SQ Last administered on 06/30at 12:51; Start 04/24/18 at 12:00; Stop 04/24/18 at 14:57; Status DC Enoxaparin Sodium (Lovenox Per Pharmacy Treatment Dosing) 1 each PRN DAILY PRN MC SEE COMMENTS; Start 04/24/18 at 15:00; Status UNV Enoxaparin Sodium (Lovenox 60mg Syringe) 60 mg 1X ONCE SQ Last administered on 04/24/18at 15:25; Start 04/24/18 at 15:00; Stop 04/24/18 at 15:01; Status DC Enoxaparin Sodium (Lovenox 100mg Syringe) 90 mg Q12HR SQ Last administered on 04/25/18at 08:55; Start 04/24/18 at 23:00; Stop 04/25/18 at 18:47; Status DC Acetaminophen (Tylenol) 650 mg PRN Q6HRS PRN PO MILD PAIN / TEMP Last administered on 04/25/18at 18:51; Start 04/24/18 at 20:00 Enoxaparin Sodium (Lovenox 100mg Syringe) 90 mg Q12HR SQ Last administered on 04/26/18at 09:10; Start 04/26/18 at 09:00 Active Scripts Active Catapres (Clonidine Hcl) 0.1 Mg Tablet 0.1 Mg PO PRN Q1HR PRN 14 Days Withdrawal symptoms Reported Proair Hfa Inhaler (Albuterol Sulfate) 8.5 Gm Hfa.aer.ad 1 Puff INH PRN Q4HRS PRN Duoneb 0.5-3(2.5) Mg/3 Ml (Albuterol/Ipratropium) 3 Ml Ampul.neb 3 Ml NEB Q2HR PRN Symbicort 160-4.5 Mcg Inhaler (Budesonide/Formoterol Fumarate) 10.2 Gm Hfa.aer.ad 2 Puff IH BID Prilosec Otc (Omeprazole Magnesium) 20 Mg Tablet.dr 1 Tab PO DAILY Theophylline (Theophylline Anhydrous) 400 Mg Tablet.er 300 Mg PO BID Vitals/I & O Vital Sign - Last 24 Hours 04/25/18 04/25/18 04/25/18 04/25/18 14:50 15:00 18:17 19:00 Temp 98.0 98.9 98.0 98.9 Pulse 110 119 Resp 20 20 B/P (MAP) 135/80 (98) 135/85 (102) Pulse Ox 95 94 O2 Delivery Room Air Room Air Room Air 04/25/18 04/25/18 04/26/18 04/26/18 20:00 23:00 03:00 07:00 Temp 98.2 99.6 98.4 98.2 99.6 98.4 Pulse 100 98 94 Resp 20 20 20 B/P (MAP) 119/72 (88) 108/75 (86) 125/78 (94) Pulse Ox 92 97 93 O2 Delivery Room Air Room Air 04/26/18 04/26/18 04/26/18 04/26/18 07:10 07:45 11:00 11:35 Temp 98.0 98.0 Pulse 92 Resp 20 B/P (MAP) 130/74 (92) Pulse Ox 94 O2 Delivery Room Air Room Air Room Air Room Air Intake and Output 04/25/18 04/25/18 04/26/18 15:00 23:00 07:00 Intake Total 600 ml 1300 ml Output Total 200 ml Balance 400 ml 1300 ml MAY FROST III DO Apr 26, 2018 13:21
[2018-04-26 15:00] VITALS: BP 138/80
--- NOTE | 2018-04-26 15:34 | RAD ---
CERVICAL SPINE WO CONTRAST Clinical Indication: DIFFUSE WEAKNESS Comparison: CT cervical spine without contrast, August 13, 2016. TECHNIQUE: Routine multiplanar multiple pulse sequence images of the cervical spine are obtained without IV contrast. Findings: No bone marrow edema is identified in the cervical spine. There is disc desiccation. There is no suspicious T1 marrow signal abnormality. Near isointensity of the marrow to the disc spaces may reflect residual red marrow or red marrow reconversion. There is no cerebellar tonsillar ectopia. T2 signal and caliber of the cervical cord are normal. There is minimal grade 1 anterolisthesis of C2 on C3. The vertebral body height and alignment are otherwise maintained. C2/C3: Central canal is patent. Neural foramina are adequate. C3/C4: Minimal posterior disc bulge. The central canal is patent. Mild facet hypertrophy. Mild left and no significant right neural foraminal narrowing. C4/C5: Negligible posterior disc bulge. The central canal is patent. There is facet hypertrophy. This contributes to moderate bilateral neural foraminal narrowing. C5/C6: Central disc protrusion abuts the ventral cord. No significant central canal stenosis. There is mild facet hypertrophy. Uncinate process hypertrophy. Severe right and mild left neural foraminal narrowing. C6/C7: There is right paracentral disc extrusion with superior extension that indents the anterior cord. No significant central canal stenosis. Mild facet hypertrophy on the left. Just superior to the disc space the disc extrusion contributes to severe narrowing of the right lateral recess. There may be abutment of the C7 nerve root. Mild bilateral neural foraminal narrowing. C7/T1: Unremarkable. IMPRESSION: 1. At C6/C7 there is right paracentral disc extrusion with superior extension and narrowing of the right lateral recess. Correlate for right C7 radiculopathy. 2. No significant central canal stenosis. Electronically signed by: Tommy Estrada MD (04/26/2018 3:31 PM) [facility]
--- NOTE | 2018-04-26 15:35 | PDOC ---
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 Alcoholism, prior metabolic encephalopathy Psychogenic component, patient refuses therapy, makes the nurses feed him and provide total care, tremors appear factitious as well, but there may be a component of essential tremor Diffuse weakness, can't even get up and physical therapy, but able to give pretty good strength while in bed Plan Continue levetiracetam, 2-6 months Encouraged patient to cooperate with therapy and to not have the nurses do everything for him I gave the patient reassurance that if he abstains from alcohol and get some therapy, physical and mental, he should continue to improve. Await MRI of the cervical spine Await rest of new labwork EMG on 04/27 to rule out myopathy or neuropathy Objective Vital Signs Date Time Temp Pulse Resp B/P (MAP) Pulse Ox O2 Delivery O2 Flow Rate FiO2 04/26/18 15:10 Room Air 04/26/18 11:00 98.0 92 20 130/74 (92) 94 98.0 04/25/18 12:25 2.0 Intake and Output 04/26/18 07:00 Intake Total 1900 ml Output Total 200 ml Balance 1700 ml Intake Oral 1900 ml Output Urine Total 200 ml # Voids 5 PHYSICAL EXAM Alert. Oriented to time, place and person. PERRL, left pupil dilated due to iris injury. EOMI. CN: no focal findings. Muscle tone: normal. Muscle strength: 5/5 DTR: 2+ Plantar reflex: flexor Gait: not examined in bed. Sensory exam: no abnormal findings. Tremors: appear voluntary, whole-body tremor as he is ready to be transported for MRI, says he needs some Ativan to relieve it Review of Relevant I have reviewed the following items wali (where applicable) has been applied. Labs Laboratory Tests Test 04/24/18 22:30 04/25/18 05:00 04/26/18 04:55 Urine Collection Type Unknown Urine Color Yellow Urine Clarity Clear Urine pH 5.5 Urine Specific [place] 1.020 Urine Protein Negative mg/dL (NEG-TRACE) Urine Glucose (UA) Negative mg/dL (NEG) Urine Ketones (Stick) Negative mg/dL (NEG) Urine Blood Negative (NEG) Urine Nitrite Negative (NEG) Urine Bilirubin Negative (NEG) Urine Urobilinogen Dipstick 0.2 mg/dL (0.2 mg/dL) Urine Leukocyte Esterase Negative (NEG) Urine RBC 0 /HPF (0-2) Urine WBC Rare /HPF (0-4) Urine Squamous Epithelial Cells None /LPF Urine Bacteria 0 /HPF (0-FEW) Urine Mucus Mod /LPF White Blood Count 10.8 x10^3/uL (4.0-11.0) 8.6 x10^3/uL (4.0-11.0) Red Blood Count 4.25 x10^6/uL (4.30-5.70) 4.47 x10^6/uL (4.30-5.70) Hemoglobin 11.0 g/dL (13.0-17.5) 11.6 g/dL (13.0-17.5) Hematocrit 33.6 % (39.0-53.0) 35.6 % (39.0-53.0) Mean Corpuscular Volume 79 fL (79-100) 80 fL (79-100) Mean Corpuscular Hemoglobin 26 pg (25-35) 26 pg (25-35) Mean Corpuscular Hemoglobin Concent 33 g/dL (31-37) 33 g/dL (31-37) Red Cell Distribution Width 20.6 % (11.5-14.5) 20.3 % (11.5-14.5) Platelet Count 212 x10^3/uL (140-400) 172 x10^3/uL (140-400) Neutrophils (%) (Auto) 66 % (31-73) 65 % (31-73) Lymphocytes (%) (Auto) 19 % (24-48) 19 % (24-48) Monocytes (%) (Auto) 11 % (0-9) 11 % (0-9) Eosinophils (%) (Auto) 3 % (0-3) 4 % (0-3) Basophils (%) (Auto) 1 % (0-3) 1 % (0-3) Neutrophils # (Auto) 7.2 x10^3uL (1.8-7.7) 5.6 x10^3uL (1.8-7.7) Lymphocytes # (Auto) 2.1 x10^3/uL (1.0-4.8) 1.6 x10^3/uL (1.0-4.8) Monocytes # (Auto) 1.1 x10^3/uL (0.0-1.1) 0.9 x10^3/uL (0.0-1.1) Eosinophils # (Auto) 0.3 x10^3/uL (0.0-0.7) 0.4 x10^3/uL (0.0-0.7) Basophils # (Auto) 0.1 x10^3/uL (0.0-0.2) 0.1 x10^3/uL (0.0-0.2) Platelet Estimate Adequate (ADEQUATE) Anisocytosis Present Sodium Level 137 mmol/L (136-145) 136 mmol/L (136-145) Potassium Level 3.8 mmol/L (3.5-5.1) 4.2 mmol/L (3.5-5.1) Chloride Level 99 mmol/L (98-107) 100 mmol/L (98-107) Carbon Dioxide Level 26 mmol/L (21-32) 27 mmol/L (21-32) Anion Gap 12 (6-14) 9 (6-14) Blood Urea Nitrogen 13 mg/dL (8-26) 13 mg/dL (8-26) Creatinine 0.8 mg/dL (0.7-1.3) 0.8 mg/dL (0.7-1.3) Estimated GFR (Cockcroft-Gault) 106.5 106.5 Glucose Level 75 mg/dL (70-99) 96 mg/dL (70-99) Calcium Level 9.7 mg/dL (8.5-10.1) 10.3 mg/dL (8.5-10.1) Laboratory Tests Test 04/26/18 04:55 White Blood Count 8.6 x10^3/uL (4.0-11.0) Red Blood Count 4.47 x10^6/uL (4.30-5.70) Hemoglobin 11.6 g/dL (13.0-17.5) Hematocrit 35.6 % (39.0-53.0) Mean Corpuscular Volume 80 fL (79-100) Mean Corpuscular Hemoglobin 26 pg (25-35) Mean Corpuscular Hemoglobin Concent 33 g/dL (31-37) Red Cell Distribution Width 20.3 % (11.5-14.5) Platelet Count 172 x10^3/uL (140-400) Neutrophils (%) (Auto) 65 % (31-73) Lymphocytes (%) (Auto) 19 % (24-48) Monocytes (%) (Auto) 11 % (0-9) Eosinophils (%) (Auto) 4 % (0-3) Basophils (%) (Auto) 1 % (0-3) Neutrophils # (Auto) 5.6 x10^3uL (1.8-7.7) Lymphocytes # (Auto) 1.6 x10^3/uL (1.0-4.8) Monocytes # (Auto) 0.9 x10^3/uL (0.0-1.1) Eosinophils # (Auto) 0.4 x10^3/uL (0.0-0.7) Basophils # (Auto) 0.1 x10^3/uL (0.0-0.2) Sodium Level 136 mmol/L (136-145) Potassium Level 4.2 mmol/L (3.5-5.1) Chloride Level 100 mmol/L (98-107) Carbon Dioxide Level 27 mmol/L (21-32) Anion Gap 9 (6-14) Blood Urea Nitrogen 13 mg/dL (8-26) Creatinine 0.8 mg/dL (0.7-1.3) Estimated GFR (Cockcroft-Gault) 106.5 Glucose Level 96 mg/dL (70-99) Calcium Level 10.3 mg/dL (8.5-10.1) Microbiology 04/24/18 Blood Culture - Preliminary, Resulted NO GROWTH AFTER 1 DAY Medications Current Medications Multivitamins 10 ml/Thiamine HCl 100 mg/Folic Acid 1 mg/Sodium Chloride 1,011.2 ml @ 100 mls/ hr DAILY IV Last administered on 04/25/18at 08:54; Start at 09:00; Stop 04/25/18 at 19:07; Status DC Multivitamins (Thera M Plus) 1 tab DAILY PO Last administered on 04/26/18at 09: 10; Start 04/21/18 at 09:00 Folic Acid (Folic Acid) 1 mg DAILY PO Last administered on 04/26/18at 09:10; Start 04/21/18 at 09:00 Thiamine HCl 100 mg/Dextrose 51 ml @ 100 mls/hr DAILY IV Last administered on 04/21/18at 09:08; Start 04/21/18 at 09:00; Stop 04/21/18 at 17:17; Status DC Chlordiazepoxide (Librium) 50 mg PRN Q1HR PRN PO For CIWA 8-14; Start 04/20/18 at 22:15 Chlordiazepoxide (Librium) 100 mg PRN Q1HR PRN PO For CIWA 15 or greater; Start 04/20/18 at 22:15 Lorazepam (Ativan) 4 mg PRN Q1HR PRN PO For CIWA 8-14, 2nd CHOICE; Start at 22:15 Lorazepam (Ativan) 8 mg PRN Q1HR PRN PO CIWA 15 or greater,2nd CHOICE; Start 04/20/18 at 22:15 Lorazepam (Ativan) 2 mg PRN Q1HR PRN IV For CIWA 8-14 Last administered on at 13:59; Start 04/20/18 at 22:15 Lorazepam (Ativan) 4 mg PRN Q1HR PRN IV For CIWA 15 or greater Last administered on 04/22/18at 18:25; Start 04/20/18 at 22:15 Haloperidol Lactate (Haldol Inj) 5 mg PRN Q4HRS PRN IVP Hallucinatns,Confusn, Delirium Last administered on 04/24/18at 13:49; Start 04/20/18 at 22:15 Clonidine HCl (Catapres) 0.1 mg PRN Q1HR PRN PO SBP > 180 or DBP > 100, MRX3; Start 04/20/18 at 22:15 Lorazepam (Ativan) 2 mg PRN Q15MIN PRN IV ANXIETY / AGITATION; Start 04/20/18 at 22:15; Stop 04/22/18 at 14:35; Status DC Lorazepam (Ativan) 4 mg PRN Q15MIN PRN IV ANXIETY / AGITATION; Start 04/20/18 at 22:15; Stop 04/22/18 at 14:35; Status DC Levetiracetam (Keppra) 500 mg BID PO Last administered on 04/26/18at 09:10; Start 04/21/18 at 09:00 Gadobutrol (Gadavist) 10 mmol 1X ONCE IV Last administered on 04/21/18at 14:14 ; Start 04/21/18 at 14:00; Stop 04/21/18 at 14:01; Status DC Albuterol/ Ipratropium (Duoneb) 3 ml RTQID NEB Last administered on 04/26/18at 15:09; Start 04/21/18 at 20:00 Enoxaparin Sodium (Lovenox 40mg Syringe) 40 mg Q24H SQ Last administered on 06/30at 12:51; Start 04/24/18 at 12:00; Stop 04/24/18 at 14:57; Status DC Enoxaparin Sodium (Lovenox Per Pharmacy Treatment Dosing) 1 each PRN DAILY PRN MC SEE COMMENTS; Start 04/24/18 at 15:00; Status UNV Enoxaparin Sodium (Lovenox 60mg Syringe) 60 mg 1X ONCE SQ Last administered on 04/24/18at 15:25; Start 04/24/18 at 15:00; Stop 04/24/18 at 15:01; Status DC Enoxaparin Sodium (Lovenox 100mg Syringe) 90 mg Q12HR SQ Last administered on 04/25/18at 08:55; Start 04/24/18 at 23:00; Stop 04/25/18 at 18:47; Status DC Acetaminophen (Tylenol) 650 mg PRN Q6HRS PRN PO MILD PAIN / TEMP Last administered on 04/25/18at 18:51; Start 04/24/18 at 20:00 Enoxaparin Sodium (Lovenox 100mg Syringe) 90 mg Q12HR SQ Last administered on 04/26/18at 09:10; Start 04/26/18 at 09:00 Active Scripts Active Catapres (Clonidine Hcl) 0.1 Mg Tablet 0.1 Mg PO PRN Q1HR PRN 14 Days Withdrawal symptoms Reported Proair Hfa Inhaler (Albuterol Sulfate) 8.5 Gm Hfa.aer.ad 1 Puff INH PRN Q4HRS PRN Duoneb 0.5-3(2.5) Mg/3 Ml (Albuterol/Ipratropium) 3 Ml Ampul.neb 3 Ml NEB Q2HR PRN Symbicort 160-4.5 Mcg Inhaler (Budesonide/Formoterol Fumarate) 10.2 Gm Hfa.aer.ad 2 Puff IH BID Prilosec Otc (Omeprazole Magnesium) 20 Mg Tablet.dr 1 Tab PO DAILY Theophylline (Theophylline Anhydrous) 400 Mg Tablet.er 300 Mg PO BID Vitals/I & O Vital Sign - Last 24 Hours 04/25/18 04/25/18 04/25/18 04/25/18 18:17 19:00 20:00 23:00 Temp 98.9 98.2 98.9 98.2 Pulse 119 100 Resp 20 20 B/P (MAP) 135/85 (102) 119/72 (88) Pulse Ox 94 92 O2 Delivery Room Air Room Air 04/26/18 04/26/18 04/26/18 04/26/18 03:00 07:00 07:10 07:45 Temp 99.6 98.4 99.6 98.4 Pulse 98 94 Resp 20 20 B/P (MAP) 108/75 (86) 125/78 (94) Pulse Ox 97 93 O2 Delivery Room Air Room Air Room Air 04/26/18 04/26/18 04/26/18 11:00 11:35 15:10 Temp 98.0 98.0 Pulse 92 Resp 20 B/P (MAP) 130/74 (92) Pulse Ox 94 O2 Delivery Room Air Room Air Room Air Intake and Output 04/25/18 04/25/18 04/26/18 15:00 23:00 07:00 Intake Total 600 ml 1300 ml Output Total 200 ml Balance 400 ml 1300 ml JUANCARLOS CULP MD Apr 26, 2018 15:35
[2018-04-26] MEDS: HYDROcodone/APAP 5/325MG 1 TAB TABLET PO PRN ×2 (16:30→21:48)
[2018-04-26 19:00] VITALS: BP 121/77
[2018-04-26 23:00] VITALS: BP 133/80
[2018-04-27] MEDS: LORazepam 1 MG TABLET PO PRN ×6 (01:43→22:28)
[2018-04-27] MEDS: HYDROcodone/APAP 5/325MG 1 TAB TABLET PO PRN ×3 (01:44→10:08)
[2018-04-27 03:00] VITALS: BP 129/81
[2018-04-27 04:08] LABS: BASO # 0.1 x10^3/uL (0.0-0.2); BASO % 1 % (0-3); EOS # 0.3 x10^3/uL (0.0-0.7); EOS % 3 % (0-3); HEMATOCRIT 32.2 % (39.0-53.0); HEMOGLOBIN 10.9 g/dL (13.0-17.5); LYMPH # 1.6 x10^3/uL (1.0-4.8); LYMPH % 17 % (24-48); MEAN CORPUSCULAR HEMOGLOBIN 27 pg (25-35); MEAN CORPUSCULAR HGB CONC 34 g/dL (31-37); MEAN CORPUSCULAR VOLUME 79 fL (79-100); MONO # 1.1 x10^3/uL (0.0-1.1); MONO % 11 % (0-9); NEUT # 6.7 x10^3uL (1.8-7.7); NEUT % 69 % (31-73); PLATELET COUNT 178 x10^3/uL (140-400); RED CELL DISTRIBUTION WIDTH 20.4 % (11.5-14.5); WHITE BLOOD COUNT 9.8 x10^3/uL (4.0-11.0)
[2018-04-27 04:23] LABS: CALCIUM 9.7 mg/dL (8.5-10.1); CREATININE 0.8 mg/dL (0.7-1.3); GFR 106.5
[2018-04-27 07:00] VITALS: BP 129/79
[2018-04-27] MEDS: IPRATRPIUM/ALBUTEROL 0.5/2.5MG 3 ML NEBU. NEB SCH ×4 (07:15→19:16)
[2018-04-27] MEDS: MULTIVITAMIN with MINERAL TABLET. PO SCH (09:21)
[2018-04-27] MEDS: FOLIC ACID 1 MG TABLET. PO SCH (09:21)
[2018-04-27] MEDS: levETIRAcetam 500 MG TABLET PO SCH ×2 (09:21→20:09)
--- NOTE | 2018-04-27 10:07 | PDOC ---
Provider Note Provider Note [facility] Juancarlos Hernandez M.D. [id number], [address] [place] [address] Test Date: 04/27/2018 Patient: Buster Osborn : 1975 Physician: Juancarlos Culp M.D., FAAN Sex: Male Height: 183 cm Ref Phys: Dr. Munoz Dear Dr. Munoz: I appreciated the opportunity to perform an electrodiagnostic medical consultation on your patient. Patient Complaints: Evaluate whole-body weakness NCV & EMG Findings: Evaluation of the Left peroneal motor nerve showed reduced amplitude (0.7 mV). The Right peroneal motor nerve showed prolonged distal onset latency (7.8 ms), reduced amplitude (0.3 mV), and decreased conduction velocity (B Fib-Ankle, 36 m /s). The Left sural sensory and the Right sural sensory nerves showed prolonged distal peak latency (L4.3, R5.1 ms). All remaining nerves (as indicated in the following tables) were within normal limits. Needle evaluation of the Left extensor hallucis longus, the Left gastroc, the Left anterior tibialis, the Left vastus medialis, the Left biceps femoris (long head), the Right extensor hallucis longus, the Right gastroc, the Right anterior tibialis, the Right vastus medialis, and the Right biceps femoris ( long head) muscles showed decreased motor unit amplitude and diminished recruitment. All remaining muscles (as indicated in the following table) showed no evidence of electrical instability. Impression: 1. There is a myopathy involving all limb muscles tested 2. 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 There are no other nerve conduction abnormalities: there is no sign of other mononeuropathy or polyneuropathy affecting the studied extremities. 4. There is no sign of lumbosacral radiculopathy on either side. 5. There is no sign of lumbosacral plexopathy on either side. Thank you very much for letting me help with the patient's care. Juancarlos Culp M.D., FAAN Elecctronically authenticated 04/27/2018 9:28:06 AM Nerve Conduction Studies Anti Sensory Summary Table Site NR Onset (ms) Norm Onset (ms) O-P Amp (V) Norm O-P Amp Site1 Site2 Delta -0 (ms) Dist (cm) Rcikey (m/s) Norm Rickey (m/s) Left Sural Anti Sensory (Lat Mall) Calf 3.4 5.0 >5.0 Calf Lat Mall 3.4 14.0 41 >35 Right Sural Anti Sensory (Lat Mall) Calf 3.5 5.5 >5.0 Calf Lat Mall 3.5 14.0 40 >35 Motor Summary Table Site NR Onset (ms) Norm Onset (ms) P-T Amp (mV) Norm P-T Amp Site1 Site2 Delta -0 (ms) Dist (cm) Rickey (m/s) Norm Rickey (m/s) Left Peroneal Motor (Ext Dig Brev) Ankle 4.5 <4.8 0.7 >4 B Fib Ankle 7.8 31.0 40 >40 B Fib 12.3 2.6 Poplt B Fib 1.5 12.0 80 >40 Poplt 13.8 0.2 Right Peroneal Motor (Ext Dig Brev) Ankle 7.8 <4.8 0.3 >4 B Fib Ankle 7.7 28.0 36 >40 B Fib 15.5 0.2 Poplt B Fib 2.5 12.0 48 >40 Poplt 18.0 0.3 Left Tibial Motor (Abd Woodard Brev) Ankle 5.2 <6.0 7.3 >4.0 Knee Ankle 10.2 43.0 42 >40 Knee 15.4 7.9 EMG Side Muscle Nerve Root Ins Act Fibs Psw Amp Dur Poly Recrt Int Pat Comment Left ExtHallLong Dp Br Peron L5, S1 Nml Nml Nml Decr Nml 0 Reduced Nml myopathic Left Gastroc Tibial S1-2 Nml Nml Nml Decr Nml 0 Reduced Nml " Left AntTibialis Dp Br Peron L4-5 Nml Nml Nml Decr Nml 0 Reduced Nml " Left VastusMed Femoral L2-4 Nml Nml Nml Decr Nml 0 Reduced Nml " Left BicepsFemL Sciatic L5-S2 Nml Nml Nml Decr Nml 0 Reduced Nml " Left Lumbo Parasp Up Rami L1-2 Nml Nml Nml normal Left Lumbo Parasp Mid Rami L3-4 Nml Nml Nml " Left Lumbo Parasp Low Rami L5-S1 Nml Nml Nml " Right ExtHallLong Dp Br Peron L5, S1 Nml Nml Nml Decr Nml 0 Reduced Nml myopathic Right Gastroc Tibial S1-2 Nml Nml Nml Decr Nml 0 Reduced Nml " Right AntTibialis Dp Br Peron L4-5 Nml Nml Nml Decr Nml 0 Reduced Nml " Right VastusMed Femoral L2-4 Nml Nml Nml Decr Nml 0 Reduced Nml " Right BicepsFemL Sciatic L5-S2 Nml Nml Nml Decr Nml 0 Reduced Nml " Right Lumbo Parasp Up Rami L1-2 Nml Nml Nml normal Right Lumbo Parasp Mid Rami L3-4 Nml Nml Nml Right Lumbo Parasp Low Rami L5-S1 Nml Nml Nml Nerve Conduction Studies Anti Sensory Left/Right Comparison Site L Lat (ms) R Lat (ms) L-R Lat (ms) L Amp (V) R Amp (V) L-R Amp (%) Site1 Site2 L Rickey (m/s) R Rickey (m/s) L-R Rickey (m/s) Sural Anti Sensory (Lat Mall) Calf 3.4 3.5 0.1 5.0 5.5 9.1 Calf Lat Mall 41 40 1 Motor Left/Right Comparison Site L Lat (ms) R Lat (ms) L-R Lat (ms) L Amp (mV) R Amp (mV) L-R Amp (%) Site1 Site2 L Rickey (m/s) R Rickey (m/s) L-R Rickey (m/s) Peroneal Motor (Ext Dig Brev) Ankle 4.5 7.8 3.3 0.7 0.3 57.1 B Fib Ankle 40 36 4 B Fib 12.3 15.5 3.2 2.6 0.2 92.3 Poplt B Fib 80 48 32 Poplt 13.8 18.0 4.2 0.2 0.3 33.3 Tibial Motor (Abd Woodard Brev) Ankle 5.2 7.3 Knee Ankle 42 Knee 15.4 7.9 JUANCARLOS CULP MD Apr 27, 2018 10:07
--- NOTE | 2018-04-27 10:12 | PDOC ---
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 Also has bilateral peroneal neuropathy, but no systemic peripheral neuropathy. 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 Alcoholism, prior metabolic encephalopathy Psychogenic component, patient refuses therapy, makes the nurses feed him and provide total care, tremors appear factitious as well, but there may be a component of essential tremor Labwork negative for other causes of weakness C6-7 disk disease, abutting right C7 nerve root, but no spinal cord involvement. Plan Continue levetiracetam, 2-6 months Encouraged patient to cooperate with therapy and to not have the nurses do everything for him I gave the patient reassurance that if he abstains from alcohol and get some therapy, physical and mental, he should continue to improve. Subjective no new complaints Objective Vital Signs Date Time Temp Pulse Resp B/P (MAP) Pulse Ox O2 Delivery O2 Flow Rate FiO2 04/27/18 08:30 Room Air 04/27/18 07:06 20 04/27/18 07:00 98.4 89 129/79 (96) 95 98.4 Intake and Output 04/27/18 07:00 Intake Total 1850 ml Output Total 1175 ml Balance 675 ml Intake Oral 1850 ml Output Urine Total 1175 ml # Bowel Movements 1 PHYSICAL EXAM Alert. Oriented to time, place and person. PERRL, left pupil dilated due to iris injury. EOMI. CN: no focal findings. Muscle tone: normal. Muscle strength: 3/5 DTR: 2+ Plantar reflex: flexor Gait: not examined in bed. Sensory exam: no abnormal findings. Tremors: appear voluntary, whole-body tremor as he is ready to be transported for MRI, says he needs some Ativan to relieve it Review of Relevant I have reviewed the following items wali (where applicable) has been applied. Labs Laboratory Tests Test 04/26/18 04:55 04/27/18 03:35 White Blood Count 8.6 x10^3/uL (4.0-11.0) 9.8 x10^3/uL (4.0-11.0) Red Blood Count 4.47 x10^6/uL (4.30-5.70) 4.10 x10^6/uL (4.30-5.70) Hemoglobin 11.6 g/dL (13.0-17.5) 10.9 g/dL (13.0-17.5) Hematocrit 35.6 % (39.0-53.0) 32.2 % (39.0-53.0) Mean Corpuscular Volume 80 fL (79-100) 79 fL (79-100) Mean Corpuscular Hemoglobin 26 pg (25-35) 27 pg (25-35) Mean Corpuscular Hemoglobin Concent 33 g/dL (31-37) 34 g/dL (31-37) Red Cell Distribution Width 20.3 % (11.5-14.5) 20.4 % (11.5-14.5) Platelet Count 172 x10^3/uL (140-400) 178 x10^3/uL (140-400) Neutrophils (%) (Auto) 65 % (31-73) 69 % (31-73) Lymphocytes (%) (Auto) 19 % (24-48) 17 % (24-48) Monocytes (%) (Auto) 11 % (0-9) 11 % (0-9) Eosinophils (%) (Auto) 4 % (0-3) 3 % (0-3) Basophils (%) (Auto) 1 % (0-3) 1 % (0-3) Neutrophils # (Auto) 5.6 x10^3uL (1.8-7.7) 6.7 x10^3uL (1.8-7.7) Lymphocytes # (Auto) 1.6 x10^3/uL (1.0-4.8) 1.6 x10^3/uL (1.0-4.8) Monocytes # (Auto) 0.9 x10^3/uL (0.0-1.1) 1.1 x10^3/uL (0.0-1.1) Eosinophils # (Auto) 0.4 x10^3/uL (0.0-0.7) 0.3 x10^3/uL (0.0-0.7) Basophils # (Auto) 0.1 x10^3/uL (0.0-0.2) 0.1 x10^3/uL (0.0-0.2) Sodium Level 136 mmol/L (136-145) 136 mmol/L (136-145) Potassium Level 4.2 mmol/L (3.5-5.1) 4.0 mmol/L (3.5-5.1) Chloride Level 100 mmol/L (98-107) 99 mmol/L (98-107) Carbon Dioxide Level 27 mmol/L (21-32) 26 mmol/L (21-32) Anion Gap 9 (6-14) 11 (6-14) Blood Urea Nitrogen 13 mg/dL (8-26) 16 mg/dL (8-26) Creatinine 0.8 mg/dL (0.7-1.3) 0.8 mg/dL (0.7-1.3) Estimated GFR (Cockcroft-Gault) 106.5 106.5 Glucose Level 96 mg/dL (70-99) 115 mg/dL (70-99) Calcium Level 10.3 mg/dL (8.5-10.1) 9.7 mg/dL (8.5-10.1) Laboratory Tests Test 04/27/18 03:35 White Blood Count 9.8 x10^3/uL (4.0-11.0) Red Blood Count 4.10 x10^6/uL (4.30-5.70) Hemoglobin 10.9 g/dL (13.0-17.5) Hematocrit 32.2 % (39.0-53.0) Mean Corpuscular Volume 79 fL (79-100) Mean Corpuscular Hemoglobin 27 pg (25-35) Mean Corpuscular Hemoglobin Concent 34 g/dL (31-37) Red Cell Distribution Width 20.4 % (11.5-14.5) Platelet Count 178 x10^3/uL (140-400) Neutrophils (%) (Auto) 69 % (31-73) Lymphocytes (%) (Auto) 17 % (24-48) Monocytes (%) (Auto) 11 % (0-9) Eosinophils (%) (Auto) 3 % (0-3) Basophils (%) (Auto) 1 % (0-3) Neutrophils # (Auto) 6.7 x10^3uL (1.8-7.7) Lymphocytes # (Auto) 1.6 x10^3/uL (1.0-4.8) Monocytes # (Auto) 1.1 x10^3/uL (0.0-1.1) Eosinophils # (Auto) 0.3 x10^3/uL (0.0-0.7) Basophils # (Auto) 0.1 x10^3/uL (0.0-0.2) Sodium Level 136 mmol/L (136-145) Potassium Level 4.0 mmol/L (3.5-5.1) Chloride Level 99 mmol/L (98-107) Carbon Dioxide Level 26 mmol/L (21-32) Anion Gap 11 (6-14) Blood Urea Nitrogen 16 mg/dL (8-26) Creatinine 0.8 mg/dL (0.7-1.3) Estimated GFR (Cockcroft-Gault) 106.5 Glucose Level 115 mg/dL (70-99) Calcium Level 9.7 mg/dL (8.5-10.1) Microbiology 04/24/18 Blood Culture - Preliminary, Resulted NO GROWTH AFTER 2 DAYS Medications Current Medications Multivitamins 10 ml/Thiamine HCl 100 mg/Folic Acid 1 mg/Sodium Chloride 1,011.2 ml @ 100 mls/ hr DAILY IV Last administered on 04/25/18at 08:54; Start at 09:00; Stop 04/25/18 at 19:07; Status DC Multivitamins (Thera M Plus) 1 tab DAILY PO Last administered on 04/27/18at 09: 21; Start 04/21/18 at 09:00 Folic Acid (Folic Acid) 1 mg DAILY PO Last administered on 04/27/18at 09:21; Start 04/21/18 at 09:00 Thiamine HCl 100 mg/Dextrose 51 ml @ 100 mls/hr DAILY IV Last administered on 04/21/18at 09:08; Start 04/21/18 at 09:00; Stop 04/21/18 at 17:17; Status DC Chlordiazepoxide (Librium) 50 mg PRN Q1HR PRN PO For CIWA 8-14; Start 04/20/18 at 22:15 Chlordiazepoxide (Librium) 100 mg PRN Q1HR PRN PO For CIWA 15 or greater; Start 04/20/18 at 22:15 Lorazepam (Ativan) 4 mg PRN Q1HR PRN PO For CIWA 8-14, 2nd CHOICE Last administered on 04/27/18at 09:22; Start 04/20/18 at 22:15 Lorazepam (Ativan) 8 mg PRN Q1HR PRN PO CIWA 15 or greater,2nd CHOICE; Start 04/20/18 at 22:15 Lorazepam (Ativan) 2 mg PRN Q1HR PRN IV For CIWA 8-14 Last administered on at 19:55; Start 04/20/18 at 22:15 Lorazepam (Ativan) 4 mg PRN Q1HR PRN IV For CIWA 15 or greater Last administered on 04/22/18at 18:25; Start 04/20/18 at 22:15 Haloperidol Lactate (Haldol Inj) 5 mg PRN Q4HRS PRN IVP Hallucinatns,Confusn, Delirium Last administered on 04/24/18at 13:49; Start 04/20/18 at 22:15 Clonidine HCl (Catapres) 0.1 mg PRN Q1HR PRN PO SBP > 180 or DBP > 100, MRX3; Start 04/20/18 at 22:15 Lorazepam (Ativan) 2 mg PRN Q15MIN PRN IV ANXIETY / AGITATION; Start 04/20/18 at 22:15; Stop 04/22/18 at 14:35; Status DC Lorazepam (Ativan) 4 mg PRN Q15MIN PRN IV ANXIETY / AGITATION; Start 04/20/18 at 22:15; Stop 04/22/18 at 14:35; Status DC Levetiracetam (Keppra) 500 mg BID PO Last administered on 04/27/18at 09:21; Start 04/21/18 at 09:00 Gadobutrol (Gadavist) 10 mmol 1X ONCE IV Last administered on 04/21/18at 14:14 ; Start 04/21/18 at 14:00; Stop 04/21/18 at 14:01; Status DC Albuterol/ Ipratropium (Duoneb) 3 ml RTQID NEB Last administered on 04/27/18at 07:15; Start 04/21/18 at 20:00 Enoxaparin Sodium (Lovenox 40mg Syringe) 40 mg Q24H SQ Last administered on 10/ 12/18at 12:51; Start 04/24/18 at 12:00; Stop 04/24/18 at 14:57; Status DC Enoxaparin Sodium (Lovenox Per Pharmacy Treatment Dosing) 1 each PRN DAILY PRN MC SEE COMMENTS; Start 04/24/18 at 15:00; Status UNV Enoxaparin Sodium (Lovenox 60mg Syringe) 60 mg 1X ONCE SQ Last administered on 04/24/18at 15:25; Start 04/24/18 at 15:00; Stop 04/24/18 at 15:01; Status DC Enoxaparin Sodium (Lovenox 100mg Syringe) 90 mg Q12HR SQ Last administered on 04/25/18at 08:55; Start 04/24/18 at 23:00; Stop 04/25/18 at 18:47; Status DC Acetaminophen (Tylenol) 650 mg PRN Q6HRS PRN PO MILD PAIN / TEMP Last administered on 04/25/18at 18:51; Start 04/24/18 at 20:00 Enoxaparin Sodium (Lovenox 100mg Syringe) 90 mg Q12HR SQ Last administered on 04/27/18at 09:22; Start 04/26/18 at 09:00 Acetaminophen/ Hydrocodone Bitart (Lortab 5/325) 1 tab PRN Q4HRS PRN PO MOD TO SEVERE PAIN Last administered on 04/27/18at 06:06; Start 04/26/18 at 16:30 Active Scripts Active Catapres (Clonidine Hcl) 0.1 Mg Tablet 0.1 Mg PO PRN Q1HR PRN 14 Days Withdrawal symptoms Reported Proair Hfa Inhaler (Albuterol Sulfate) 8.5 Gm Hfa.aer.ad 1 Puff INH PRN Q4HRS PRN Duoneb 0.5-3(2.5) Mg/3 Ml (Albuterol/Ipratropium) 3 Ml Ampul.neb 3 Ml NEB Q2HR PRN Symbicort 160-4.5 Mcg Inhaler (Budesonide/Formoterol Fumarate) 10.2 Gm Hfa.aer.ad 2 Puff IH BID Prilosec Otc (Omeprazole Magnesium) 20 Mg Tablet.dr 1 Tab PO DAILY Theophylline (Theophylline Anhydrous) 400 Mg Tablet.er 300 Mg PO BID Vitals/I & O Vital Sign - Last 24 Hours 04/26/18 04/26/18 04/26/18 04/26/18 11:00 11:35 15:00 15:10 Temp 98.0 98.0 98.0 98.0 Pulse 92 96 Resp 20 20 B/P (MAP) 130/74 (92) 138/80 (99) Pulse Ox 94 94 O2 Delivery Room Air Room Air Room Air Room Air 04/26/18 04/26/18 04/26/18 04/26/18 16:30 17:30 19:00 19:32 Temp 98.1 98.1 Pulse 112 Resp 20 20 B/P (MAP) 121/77 (92) Pulse Ox 93 94 95 O2 Delivery Room Air Room Air 04/26/18 04/26/18 04/26/18 04/27/18 20:00 21:48 23:00 01:44 Temp 98.5 98.5 Pulse 113 Resp 20 18 20 B/P (MAP) 133/80 (97) Pulse Ox 91 O2 Delivery Room Air Room Air Room Air 04/27/18 04/27/18 04/27/18 04/27/18 03:00 06:06 07:00 07:06 Temp 97.7 98.4 97.7 98.4 Pulse 60 89 Resp 18 20 20 20 B/P (MAP) 129/81 (97) 129/79 (96) Pulse Ox 96 95 O2 Delivery Room Air Room Air Room Air 04/27/18 04/27/18 07:16 08:30 O2 Delivery Room Air Room Air Intake and Output 04/26/18 04/26/18 04/27/18 15:00 23:00 07:00 Intake Total 500 ml 1350 ml Output Total 350 ml 825 ml Balance 500 ml 1000 ml -825 ml Images No bone marrow edema is identified in the cervical spine. There is disc desiccation. There is no suspicious T1 marrow signal abnormality. Near isointensity of the marrow to the disc spaces may reflect residual red marrow or red marrow reconversion. There is no cerebellar tonsillar ectopia. T2 signal and caliber of the cervical cord are normal. There is minimal grade 1 anterolisthesis of C2 on C3. The vertebral body height and alignment are otherwise maintained. C2/C3: Central canal is patent. Neural foramina are adequate. C3/C4: Minimal posterior disc bulge. The central canal is patent. Mild facet hypertrophy. Mild left and no significant right neural foraminal narrowing. C4/C5: Negligible posterior disc bulge. The central canal is patent. There is facet hypertrophy. This contributes to moderate bilateral neural foraminal narrowing. C5/C6: Central disc protrusion abuts the ventral cord. No significant central canal stenosis. There is mild facet hypertrophy. Uncinate process hypertrophy. Severe right and mild left neural foraminal narrowing. C6/C7: There is right paracentral disc extrusion with superior extension that indents the anterior cord. No significant central canal stenosis. Mild facet hypertrophy on the left. Just superior to the disc space the disc extrusion contributes to severe narrowing of the right lateral recess. There may be abutment of the C7 nerve root. Mild bilateral neural foraminal narrowing. C7/T1: Unremarkable. IMPRESSION: 1. At C6/C7 there is right paracentral disc extrusion with superior extension and narrowing of the right lateral recess. Correlate for right C7 radiculopathy. 2. No significant central canal stenosis. JUANCARLOS CULP MD Apr 27, 2018 10:12
[2018-04-27 11:00] VITALS: BP 124/77
[2018-04-27] MEDS ORDERED: HYDROcodone/APAP 10/325 1 TAB TABLET PO PRN (11:45)
[2018-04-27 13:03] LABS: PROTHROMBIN TIME PATIENT 14.5 SEC (11.7-14.0)
--- NOTE | 2018-04-27 14:05 | PDOC ---
PROGRESS NOTES Chief Complaint Chief Complaint Postural tremor consistent with essential tremor Left leg DVT Possible seizure episodes, partial-complex. 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 Alcoholism, prior metabolic encephalopathy Substance use disorder myopathy, critical dz related right C7 radiculopathy. no central spinal stenosis plan: fu with neuro, on keppra cont PTOT add percocet for pain control on lovenox bid , talked to sw and mother, pt has no insurance, will add warfarin , check INR daily, goal 2-3. will check CTA to rule out PE. on vitamins. History of Present Illness History of Present Illness Pt has a chronic history of severe alcohol abuse. He is not tremulous at this time. Neurology notes, per record states to start Keppra for 2-6 months and follow up with neurology in 4-6 weeks. Neurology progress note states pt needs to abstain from alcohol and receive both mental and physical therapy to improve tremor symptoms and weakness. Pt alert and oriented; affect appropriate, pt is complaining of leg pain. His left knee and thigh is TTP DW RN VSS pt has no insurance, alcoholism, father dying at home, mother will take him home if he can walk. left leg DVT, c/o severe left leg pain Vitals Vitals Vital Signs Date Time Temp Pulse Resp B/P (MAP) Pulse Ox O2 Delivery O2 Flow Rate FiO2 04/27/18 11:27 Room Air 04/27/18 11:08 97 04/27/18 11:00 98.1 101 20 124/77 (93) 98.1 Physical Exam Physical Exam left leg red, warm, tenderness, swelling. General: Cooperative, No acute distress Heart: Regular rate, Normal S1 Lungs: Clear, Other Abdomen: Normal bowel sounds, Soft Extremities: No clubbing, Normal pulses Skin: No rashes, No breakdown, No significant lesion Labs LABS Laboratory Tests Test 04/27/18 03:35 04/27/18 12:40 White Blood Count 9.8 x10^3/uL (4.0-11.0) Red Blood Count 4.10 x10^6/uL (4.30-5.70) Hemoglobin 10.9 g/dL (13.0-17.5) Hematocrit 32.2 % (39.0-53.0) Mean Corpuscular Volume 79 fL (79-100) Mean Corpuscular Hemoglobin 27 pg (25-35) Mean Corpuscular Hemoglobin Concent 34 g/dL (31-37) Red Cell Distribution Width 20.4 % (11.5-14.5) Platelet Count 178 x10^3/uL (140-400) Neutrophils (%) (Auto) 69 % (31-73) Lymphocytes (%) (Auto) 17 % (24-48) Monocytes (%) (Auto) 11 % (0-9) Eosinophils (%) (Auto) 3 % (0-3) Basophils (%) (Auto) 1 % (0-3) Neutrophils # (Auto) 6.7 x10^3uL (1.8-7.7) Lymphocytes # (Auto) 1.6 x10^3/uL (1.0-4.8) Monocytes # (Auto) 1.1 x10^3/uL (0.0-1.1) Eosinophils # (Auto) 0.3 x10^3/uL (0.0-0.7) Basophils # (Auto) 0.1 x10^3/uL (0.0-0.2) Sodium Level 136 mmol/L (136-145) Potassium Level 4.0 mmol/L (3.5-5.1) Chloride Level 99 mmol/L (98-107) Carbon Dioxide Level 26 mmol/L (21-32) Anion Gap 11 (6-14) Blood Urea Nitrogen 16 mg/dL (8-26) Creatinine 0.8 mg/dL (0.7-1.3) Estimated GFR (Cockcroft-Gault) 106.5 Glucose Level 115 mg/dL (70-99) Calcium Level 9.7 mg/dL (8.5-10.1) Prothrombin Time 14.5 SEC (11.7-14.0) Prothromb Time International Ratio 1.2 (0.8-1.1) Comment Review of Relevant I have reviewed the following items wali (where applicable) has been applied. Labs Laboratory Tests Test 04/26/18 04:55 04/27/18 03:35 04/27/18 12:40 White Blood Count 8.6 x10^3/uL (4.0-11.0) 9.8 x10^3/uL (4.0-11.0) Red Blood Count 4.47 x10^6/uL (4.30-5.70) 4.10 x10^6/uL (4.30-5.70) Hemoglobin 11.6 g/dL (13.0-17.5) 10.9 g/dL (13.0-17.5) Hematocrit 35.6 % (39.0-53.0) 32.2 % (39.0-53.0) Mean Corpuscular Volume 80 fL (79-100) 79 fL (79-100) Mean Corpuscular Hemoglobin 26 pg (25-35) 27 pg (25-35) Mean Corpuscular Hemoglobin Concent 33 g/dL (31-37) 34 g/dL (31-37) Red Cell Distribution Width 20.3 % (11.5-14.5) 20.4 % (11.5-14.5) Platelet Count 172 x10^3/uL (140-400) 178 x10^3/uL (140-400) Neutrophils (%) (Auto) 65 % (31-73) 69 % (31-73) Lymphocytes (%) (Auto) 19 % (24-48) 17 % (24-48) Monocytes (%) (Auto) 11 % (0-9) 11 % (0-9) Eosinophils (%) (Auto) 4 % (0-3) 3 % (0-3) Basophils (%) (Auto) 1 % (0-3) 1 % (0-3) Neutrophils # (Auto) 5.6 x10^3uL (1.8-7.7) 6.7 x10^3uL (1.8-7.7) Lymphocytes # (Auto) 1.6 x10^3/uL (1.0-4.8) 1.6 x10^3/uL (1.0-4.8) Monocytes # (Auto) 0.9 x10^3/uL (0.0-1.1) 1.1 x10^3/uL (0.0-1.1) Eosinophils # (Auto) 0.4 x10^3/uL (0.0-0.7) 0.3 x10^3/uL (0.0-0.7) Basophils # (Auto) 0.1 x10^3/uL (0.0-0.2) 0.1 x10^3/uL (0.0-0.2) Sodium Level 136 mmol/L (136-145) 136 mmol/L (136-145) Potassium Level 4.2 mmol/L (3.5-5.1) 4.0 mmol/L (3.5-5.1) Chloride Level 100 mmol/L (98-107) 99 mmol/L (98-107) Carbon Dioxide Level 27 mmol/L (21-32) 26 mmol/L (21-32) Anion Gap 9 (6-14) 11 (6-14) Blood Urea Nitrogen 13 mg/dL (8-26) 16 mg/dL (8-26) Creatinine 0.8 mg/dL (0.7-1.3) 0.8 mg/dL (0.7-1.3) Estimated GFR (Cockcroft-Gault) 106.5 106.5 Glucose Level 96 mg/dL (70-99) 115 mg/dL (70-99) Calcium Level 10.3 mg/dL (8.5-10.1) 9.7 mg/dL (8.5-10.1) Prothrombin Time 14.5 SEC (11.7-14.0) Prothromb Time International Ratio 1.2 (0.8-1.1) Laboratory Tests Test 04/27/18 03:35 04/27/18 12:40 White Blood Count 9.8 x10^3/uL (4.0-11.0) Red Blood Count 4.10 x10^6/uL (4.30-5.70) Hemoglobin 10.9 g/dL (13.0-17.5) Hematocrit 32.2 % (39.0-53.0) Mean Corpuscular Volume 79 fL (79-100) Mean Corpuscular Hemoglobin 27 pg (25-35) Mean Corpuscular Hemoglobin Concent 34 g/dL (31-37) Red Cell Distribution Width 20.4 % (11.5-14.5) Platelet Count 178 x10^3/uL (140-400) Neutrophils (%) (Auto) 69 % (31-73) Lymphocytes (%) (Auto) 17 % (24-48) Monocytes (%) (Auto) 11 % (0-9) Eosinophils (%) (Auto) 3 % (0-3) Basophils (%) (Auto) 1 % (0-3) Neutrophils # (Auto) 6.7 x10^3uL (1.8-7.7) Lymphocytes # (Auto) 1.6 x10^3/uL (1.0-4.8) Monocytes # (Auto) 1.1 x10^3/uL (0.0-1.1) Eosinophils # (Auto) 0.3 x10^3/uL (0.0-0.7) Basophils # (Auto) 0.1 x10^3/uL (0.0-0.2) Sodium Level 136 mmol/L (136-145) Potassium Level 4.0 mmol/L (3.5-5.1) Chloride Level 99 mmol/L (98-107) Carbon Dioxide Level 26 mmol/L (21-32) Anion Gap 11 (6-14) Blood Urea Nitrogen 16 mg/dL (8-26) Creatinine 0.8 mg/dL (0.7-1.3) Estimated GFR (Cockcroft-Gault) 106.5 Glucose Level 115 mg/dL (70-99) Calcium Level 9.7 mg/dL (8.5-10.1) Prothrombin Time 14.5 SEC (11.7-14.0) Prothromb Time International Ratio 1.2 (0.8-1.1) Microbiology 04/24/18 Blood Culture - Preliminary, Resulted NO GROWTH AFTER 2 DAYS Medications Current Medications Multivitamins 10 ml/Thiamine HCl 100 mg/Folic Acid 1 mg/Sodium Chloride 1,011.2 ml @ 100 mls/ hr DAILY IV Last administered on 04/25/18at 08:54; Start at 09:00; Stop 04/25/18 at 19:07; Status DC Multivitamins (Thera M Plus) 1 tab DAILY PO Last administered on 04/27/18at 09: 21; Start 04/21/18 at 09:00 Folic Acid (Folic Acid) 1 mg DAILY PO Last administered on 04/27/18at 09:21; Start 04/21/18 at 09:00 Thiamine HCl 100 mg/Dextrose 51 ml @ 100 mls/hr DAILY IV Last administered on 04/21/18at 09:08; Start 04/21/18 at 09:00; Stop 04/21/18 at 17:17; Status DC Chlordiazepoxide (Librium) 50 mg PRN Q1HR PRN PO For CIWA 8-14; Start 04/20/18 at 22:15 Chlordiazepoxide (Librium) 100 mg PRN Q1HR PRN PO For CIWA 15 or greater; Start 04/20/18 at 22:15 Lorazepam (Ativan) 4 mg PRN Q1HR PRN PO For CIWA 8-14, 2nd CHOICE Last administered on 04/27/18at 09:22; Start 04/20/18 at 22:15 Lorazepam (Ativan) 8 mg PRN Q1HR PRN PO CIWA 15 or greater,2nd CHOICE; Start 04/20/18 at 22:15 Lorazepam (Ativan) 2 mg PRN Q1HR PRN IV For CIWA 8-14 Last administered on at 19:55; Start 04/20/18 at 22:15 Lorazepam (Ativan) 4 mg PRN Q1HR PRN IV For CIWA 15 or greater Last administered on 04/22/18at 18:25; Start 04/20/18 at 22:15 Haloperidol Lactate (Haldol Inj) 5 mg PRN Q4HRS PRN IVP Hallucinatns,Confusn, Delirium Last administered on 04/24/18at 13:49; Start 04/20/18 at 22:15 Clonidine HCl (Catapres) 0.1 mg PRN Q1HR PRN PO SBP > 180 or DBP > 100, MRX3; Start 04/20/18 at 22:15 Lorazepam (Ativan) 2 mg PRN Q15MIN PRN IV ANXIETY / AGITATION; Start 04/20/18 at 22:15; Stop 04/22/18 at 14:35; Status DC Lorazepam (Ativan) 4 mg PRN Q15MIN PRN IV ANXIETY / AGITATION; Start 04/20/18 at 22:15; Stop 04/22/18 at 14:35; Status DC Levetiracetam (Keppra) 500 mg BID PO Last administered on 04/27/18at 09:21; Start 04/21/18 at 09:00 Gadobutrol (Gadavist) 10 mmol 1X ONCE IV Last administered on 04/21/18at 14:14 ; Start 04/21/18 at 14:00; Stop 04/21/18 at 14:01; Status DC Albuterol/ Ipratropium (Duoneb) 3 ml RTQID NEB Last administered on 04/27/18at 11:07; Start 04/21/18 at 20:00 Enoxaparin Sodium (Lovenox 40mg Syringe) 40 mg Q24H SQ Last administered on 06/30at 12:51; Start 04/24/18 at 12:00; Stop 04/24/18 at 14:57; Status DC Enoxaparin Sodium (Lovenox Per Pharmacy Treatment Dosing) 1 each PRN DAILY PRN MC SEE COMMENTS; Start 04/24/18 at 15:00; Status UNV Enoxaparin Sodium (Lovenox 60mg Syringe) 60 mg 1X ONCE SQ Last administered on 04/24/18at 15:25; Start 04/24/18 at 15:00; Stop 04/24/18 at 15:01; Status DC Enoxaparin Sodium (Lovenox 100mg Syringe) 90 mg Q12HR SQ Last administered on 04/25/18at 08:55; Start 04/24/18 at 23:00; Stop 04/25/18 at 18:47; Status DC Acetaminophen (Tylenol) 650 mg PRN Q6HRS PRN PO MILD PAIN / TEMP Last administered on 04/25/18at 18:51; Start 04/24/18 at 20:00 Enoxaparin Sodium (Lovenox 100mg Syringe) 90 mg Q12HR SQ Last administered on 04/27/18at 09:22; Start 04/26/18 at 09:00 Acetaminophen/ Hydrocodone Bitart (Lortab 5/325) 1 tab PRN Q4HRS PRN PO MOD TO SEVERE PAIN Last administered on 04/27/18at 10:08; Start 04/26/18 at 16:30; Stop 04/27/18 at 11:32; Status DC Acetaminophen/ Hydrocodone Bitart (Lortab 10/325) 1 tab PRN Q6HRS PRN PO MODERATE-SEVERE PAIN; Start 04/27/18 at 11:45 Warfarin Sodium (Coumadin Per Pharmacy) 1 each PRN DAILY PRN MC SEE COMMENTS; Start 04/27/18 at 11:45; Status UNV Warfarin Sodium (Coumadin) 7.5 mg 1X ONCE PO ; Start 04/27/18 at 11:45; Stop 04/27/18 at 11:46; Status UNV Active Scripts Active Catapres (Clonidine Hcl) 0.1 Mg Tablet 0.1 Mg PO PRN Q1HR PRN 14 Days Withdrawal symptoms Reported Proair Hfa Inhaler (Albuterol Sulfate) 8.5 Gm Hfa.aer.ad 1 Puff INH PRN Q4HRS PRN Duoneb 0.5-3(2.5) Mg/3 Ml (Albuterol/Ipratropium) 3 Ml Ampul.neb 3 Ml NEB Q2HR PRN Symbicort 160-4.5 Mcg Inhaler (Budesonide/Formoterol Fumarate) 10.2 Gm Hfa.aer.ad 2 Puff IH BID Prilosec Otc (Omeprazole Magnesium) 20 Mg Tablet.dr 1 Tab PO DAILY Theophylline (Theophylline Anhydrous) 400 Mg Tablet.er 300 Mg PO BID Vitals/I & O Vital Sign - Last 24 Hours 04/26/18 04/26/18 04/26/18 04/26/18 15:00 15:10 16:30 17:30 Temp 98.0 98.0 Pulse 96 Resp 20 20 B/P (MAP) 138/80 (99) Pulse Ox 94 93 94 O2 Delivery Room Air Room Air Room Air 04/26/18 04/26/18 04/26/18 04/26/18 19:00 19:32 20:00 21:48 Temp 98.1 98.1 Pulse 112 Resp 20 20 B/P (MAP) 121/77 (92) Pulse Ox 95 O2 Delivery Room Air Room Air Room Air 04/26/18 04/27/18 04/27/18 04/27/18 23:00 01:44 03:00 06:06 Temp 98.5 97.7 98.5 97.7 Pulse 113 60 Resp 18 20 18 20 B/P (MAP) 133/80 (97) 129/81 (97) Pulse Ox 91 96 O2 Delivery Room Air Room Air 04/27/18 04/27/18 04/27/18 04/27/18 07:00 07:06 07:16 08:30 Temp 98.4 98.4 Pulse 89 Resp 20 20 B/P (MAP) 129/79 (96) Pulse Ox 95 O2 Delivery Room Air Room Air Room Air 04/27/18 04/27/18 04/27/18 04/27/18 10:08 11:00 11:08 11:27 Temp 98.1 98.1 Pulse 101 Resp 20 B/P (MAP) 124/77 (93) Pulse Ox 94 97 O2 Delivery Room Air Room Air Room Air Room Air Intake and Output 04/26/18 04/26/18 04/27/18 15:00 23:00 07:00 Intake Total 500 ml 1350 ml Output Total 350 ml 825 ml Balance 500 ml 1000 ml -825 ml BIGG NICHOLE MD Apr 27, 2018 14:05
[2018-04-27 15:00] VITALS: BP 128/70
[2018-04-27] MEDS ORDERED: WARFARIN 7.5 MG TABLET. PO ONE (16:00)
[2018-04-27] MEDS: oxyCODONE/APAP 5/325 1 TAB TABLET PO PRN ×2 (17:04→22:28)
[2018-04-27 19:00] VITALS: BP 118/61
[2018-04-27 22:57] VITALS: BP 132/74
[2018-04-28] MEDS: LORazepam 1 MG TABLET PO PRN ×5 (01:38→21:18)
[2018-04-28] MEDS: oxyCODONE/APAP 5/325 1 TAB TABLET PO PRN ×4 (02:48→21:10)
[2018-04-28 03:00] VITALS: BP 113/65
[2018-04-28 03:51] LABS: BASO % 1 % (0-3); EOS # 0.3 x10^3/uL (0.0-0.7); EOS % 5 % (0-3); HEMATOCRIT 30.3 % (39.0-53.0); HEMOGLOBIN 10.2 g/dL (13.0-17.5); LYMPH # 1.8 x10^3/uL (1.0-4.8); LYMPH % 24 % (24-48); MEAN CORPUSCULAR HEMOGLOBIN 26 pg (25-35); MEAN CORPUSCULAR HGB CONC 34 g/dL (31-37); MEAN CORPUSCULAR VOLUME 78 fL (79-100); MONO # 0.8 x10^3/uL (0.0-1.1); MONO % 11 % (0-9); NEUT # 4.4 x10^3uL (1.8-7.7); NEUT % 60 % (31-73); PLATELET COUNT 173 x10^3/uL (140-400); RED BLOOD COUNT 3.88 x10^6/uL (4.30-5.70); RED CELL DISTRIBUTION WIDTH 19.8 % (11.5-14.5); WHITE BLOOD COUNT 7.3 x10^3/uL (4.0-11.0)
[2018-04-28 03:57] LABS: PROTHROMBIN TIME PATIENT 14.6 SEC (11.7-14.0)
[2018-04-28 04:12] LABS: CALCIUM 9.2 mg/dL (8.5-10.1); CREATININE 0.7 mg/dL (0.7-1.3); GFR 124.3; POTASSIUM 3.9 mmol/L (3.5-5.1)
[2018-04-28 07:00] VITALS: BP 116/78
[2018-04-28] MEDS: IPRATRPIUM/ALBUTEROL 0.5/2.5MG 3 ML NEBU. NEB SCH ×4 (07:48→19:28)
[2018-04-28] MEDS: MULTIVITAMIN with MINERAL TABLET. PO SCH (08:29)
[2018-04-28] MEDS: FOLIC ACID 1 MG TABLET. PO SCH (08:29)
[2018-04-28] MEDS: levETIRAcetam 500 MG TABLET PO SCH ×2 (08:29→21:10)
[2018-04-28 11:27] VITALS: BP 110/73
--- NOTE | 2018-04-28 12:20 | PDOC ---
PROGRESS NOTES Chief Complaint Chief Complaint Postural tremor consistent with essential tremor Left leg DVT Possible seizure episodes, partial-complex. 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 Alcoholism, prior metabolic encephalopathy Substance use disorder myopathy, critical dz related right C7 radiculopathy. no central spinal stenosis plan: fu with neuro, on keppra cont PTOT added percocet for pain control on lovenox bid , talked to sw and mother, pt has no insurance, cont warfarin , check INR daily, goal 2-3. will check CTA to rule out PE. but pt's has no IV access for iv contrast. on vitamins. History of Present Illness History of Present Illness Pt has a chronic history of severe alcohol abuse. He is not tremulous at this time. Neurology notes, per record states to start Keppra for 2-6 months and follow up with neurology in 4-6 weeks. Neurology progress note states pt needs to abstain from alcohol and receive both mental and physical therapy to improve tremor symptoms and weakness. Pt alert and oriented; affect appropriate, pt is complaining of leg pain. His left knee and thigh is TTP DW RN VSS pt has no insurance, alcoholism, father dying at home, mother will take him home if he can walk. left leg DVT, c/o severe left leg pain, slightly better today Vitals Vitals Vital Signs Date Time Temp Pulse Resp B/P (MAP) Pulse Ox O2 Delivery O2 Flow Rate FiO2 04/28/18 11:27 97.9 102 20 110/73 (85) 97 Room Air 97.9 04/28/18 03:00 2.0 Physical Exam Physical Exam left leg red, warm, tenderness, swelling. General: Cooperative, No acute distress Heart: Regular rate, Normal S1 Lungs: Clear, Other Abdomen: Normal bowel sounds, Soft Extremities: No clubbing, Normal pulses Skin: No rashes, No breakdown, No significant lesion Labs LABS Laboratory Tests Test 04/27/18 12:40 04/28/18 02:55 Prothrombin Time 14.5 SEC (11.7-14.0) 14.6 SEC (11.7-14.0) Prothromb Time International Ratio 1.2 (0.8-1.1) 1.2 (0.8-1.1) White Blood Count 7.3 x10^3/uL (4.0-11.0) Red Blood Count 3.88 x10^6/uL (4.30-5.70) Hemoglobin 10.2 g/dL (13.0-17.5) Hematocrit 30.3 % (39.0-53.0) Mean Corpuscular Volume 78 fL (79-100) Mean Corpuscular Hemoglobin 26 pg (25-35) Mean Corpuscular Hemoglobin Concent 34 g/dL (31-37) Red Cell Distribution Width 19.8 % (11.5-14.5) Platelet Count 173 x10^3/uL (140-400) Neutrophils (%) (Auto) 60 % (31-73) Lymphocytes (%) (Auto) 24 % (24-48) Monocytes (%) (Auto) 11 % (0-9) Eosinophils (%) (Auto) 5 % (0-3) Basophils (%) (Auto) 1 % (0-3) Neutrophils # (Auto) 4.4 x10^3uL (1.8-7.7) Lymphocytes # (Auto) 1.8 x10^3/uL (1.0-4.8) Monocytes # (Auto) 0.8 x10^3/uL (0.0-1.1) Eosinophils # (Auto) 0.3 x10^3/uL (0.0-0.7) Basophils # (Auto) 0.0 x10^3/uL (0.0-0.2) Sodium Level 138 mmol/L (136-145) Potassium Level 3.9 mmol/L (3.5-5.1) Chloride Level 100 mmol/L (98-107) Carbon Dioxide Level 26 mmol/L (21-32) Anion Gap 12 (6-14) Blood Urea Nitrogen 15 mg/dL (8-26) Creatinine 0.7 mg/dL (0.7-1.3) Estimated GFR (Cockcroft-Gault) 124.3 Glucose Level 101 mg/dL (70-99) Calcium Level 9.2 mg/dL (8.5-10.1) Comment Review of Relevant I have reviewed the following items wali (where applicable) has been applied. Labs Laboratory Tests Test 04/27/18 03:35 04/27/18 12:40 04/28/18 02:55 White Blood Count 9.8 x10^3/uL (4.0-11.0) 7.3 x10^3/uL (4.0-11.0) Red Blood Count 4.10 x10^6/uL (4.30-5.70) 3.88 x10^6/uL (4.30-5.70) Hemoglobin 10.9 g/dL (13.0-17.5) 10.2 g/dL (13.0-17.5) Hematocrit 32.2 % (39.0-53.0) 30.3 % (39.0-53.0) Mean Corpuscular Volume 79 fL (79-100) 78 fL (79-100) Mean Corpuscular Hemoglobin 27 pg (25-35) 26 pg (25-35) Mean Corpuscular Hemoglobin Concent 34 g/dL (31-37) 34 g/dL (31-37) Red Cell Distribution Width 20.4 % (11.5-14.5) 19.8 % (11.5-14.5) Platelet Count 178 x10^3/uL (140-400) 173 x10^3/uL (140-400) Neutrophils (%) (Auto) 69 % (31-73) 60 % (31-73) Lymphocytes (%) (Auto) 17 % (24-48) 24 % (24-48) Monocytes (%) (Auto) 11 % (0-9) 11 % (0-9) Eosinophils (%) (Auto) 3 % (0-3) 5 % (0-3) Basophils (%) (Auto) 1 % (0-3) 1 % (0-3) Neutrophils # (Auto) 6.7 x10^3uL (1.8-7.7) 4.4 x10^3uL (1.8-7.7) Lymphocytes # (Auto) 1.6 x10^3/uL (1.0-4.8) 1.8 x10^3/uL (1.0-4.8) Monocytes # (Auto) 1.1 x10^3/uL (0.0-1.1) 0.8 x10^3/uL (0.0-1.1) Eosinophils # (Auto) 0.3 x10^3/uL (0.0-0.7) 0.3 x10^3/uL (0.0-0.7) Basophils # (Auto) 0.1 x10^3/uL (0.0-0.2) 0.0 x10^3/uL (0.0-0.2) Sodium Level 136 mmol/L (136-145) 138 mmol/L (136-145) Potassium Level 4.0 mmol/L (3.5-5.1) 3.9 mmol/L (3.5-5.1) Chloride Level 99 mmol/L (98-107) 100 mmol/L (98-107) Carbon Dioxide Level 26 mmol/L (21-32) 26 mmol/L (21-32) Anion Gap 11 (6-14) 12 (6-14) Blood Urea Nitrogen 16 mg/dL (8-26) 15 mg/dL (8-26) Creatinine 0.8 mg/dL (0.7-1.3) 0.7 mg/dL (0.7-1.3) Estimated GFR (Cockcroft-Gault) 106.5 124.3 Glucose Level 115 mg/dL (70-99) 101 mg/dL (70-99) Calcium Level 9.7 mg/dL (8.5-10.1) 9.2 mg/dL (8.5-10.1) Prothrombin Time 14.5 SEC (11.7-14.0) 14.6 SEC (11.7-14.0) Prothromb Time International Ratio 1.2 (0.8-1.1) 1.2 (0.8-1.1) Laboratory Tests Test 04/27/18 12:40 04/28/18 02:55 Prothrombin Time 14.5 SEC (11.7-14.0) 14.6 SEC (11.7-14.0) Prothromb Time International Ratio 1.2 (0.8-1.1) 1.2 (0.8-1.1) White Blood Count 7.3 x10^3/uL (4.0-11.0) Red Blood Count 3.88 x10^6/uL (4.30-5.70) Hemoglobin 10.2 g/dL (13.0-17.5) Hematocrit 30.3 % (39.0-53.0) Mean Corpuscular Volume 78 fL (79-100) Mean Corpuscular Hemoglobin 26 pg (25-35) Mean Corpuscular Hemoglobin Concent 34 g/dL (31-37) Red Cell Distribution Width 19.8 % (11.5-14.5) Platelet Count 173 x10^3/uL (140-400) Neutrophils (%) (Auto) 60 % (31-73) Lymphocytes (%) (Auto) 24 % (24-48) Monocytes (%) (Auto) 11 % (0-9) Eosinophils (%) (Auto) 5 % (0-3) Basophils (%) (Auto) 1 % (0-3) Neutrophils # (Auto) 4.4 x10^3uL (1.8-7.7) Lymphocytes # (Auto) 1.8 x10^3/uL (1.0-4.8) Monocytes # (Auto) 0.8 x10^3/uL (0.0-1.1) Eosinophils # (Auto) 0.3 x10^3/uL (0.0-0.7) Basophils # (Auto) 0.0 x10^3/uL (0.0-0.2) Sodium Level 138 mmol/L (136-145) Potassium Level 3.9 mmol/L (3.5-5.1) Chloride Level 100 mmol/L (98-107) Carbon Dioxide Level 26 mmol/L (21-32) Anion Gap 12 (6-14) Blood Urea Nitrogen 15 mg/dL (8-26) Creatinine 0.7 mg/dL (0.7-1.3) Estimated GFR (Cockcroft-Gault) 124.3 Glucose Level 101 mg/dL (70-99) Calcium Level 9.2 mg/dL (8.5-10.1) Microbiology 04/24/18 Blood Culture - Preliminary, Resulted NO GROWTH AFTER 3 DAYS Medications Current Medications Multivitamins 10 ml/Thiamine HCl 100 mg/Folic Acid 1 mg/Sodium Chloride 1,011.2 ml @ 100 mls/ hr DAILY IV Last administered on 04/25/18at 08:54; Start at 09:00; Stop 04/25/18 at 19:07; Status DC Multivitamins (Thera M Plus) 1 tab DAILY PO Last administered on 04/28/18at 08: 29; Start 04/21/18 at 09:00 Folic Acid (Folic Acid) 1 mg DAILY PO Last administered on 04/28/18at 08:29; Start 04/21/18 at 09:00 Thiamine HCl 100 mg/Dextrose 51 ml @ 100 mls/hr DAILY IV Last administered on 04/21/18at 09:08; Start 04/21/18 at 09:00; Stop 04/21/18 at 17:17; Status DC Chlordiazepoxide (Librium) 50 mg PRN Q1HR PRN PO For CIWA 8-14; Start 04/20/18 at 22:15 Chlordiazepoxide (Librium) 100 mg PRN Q1HR PRN PO For CIWA 15 or greater; Start 04/20/18 at 22:15 Lorazepam (Ativan) 4 mg PRN Q1HR PRN PO For CIWA 8-14, 2nd CHOICE Last administered on 04/28/18at 08:30; Start 04/20/18 at 22:15 Lorazepam (Ativan) 8 mg PRN Q1HR PRN PO CIWA 15 or greater,2nd CHOICE; Start 04/20/18 at 22:15 Lorazepam (Ativan) 2 mg PRN Q1HR PRN IV For CIWA 8-14 Last administered on at 19:55; Start 04/20/18 at 22:15 Lorazepam (Ativan) 4 mg PRN Q1HR PRN IV For CIWA 15 or greater Last administered on 04/22/18at 18:25; Start 04/20/18 at 22:15 Haloperidol Lactate (Haldol Inj) 5 mg PRN Q4HRS PRN IVP Hallucinatns,Confusn, Delirium Last administered on 04/24/18at 13:49; Start 04/20/18 at 22:15 Clonidine HCl (Catapres) 0.1 mg PRN Q1HR PRN PO SBP > 180 or DBP > 100, MRX3; Start 04/20/18 at 22:15 Lorazepam (Ativan) 2 mg PRN Q15MIN PRN IV ANXIETY / AGITATION; Start 04/20/18 at 22:15; Stop 04/22/18 at 14:35; Status DC Lorazepam (Ativan) 4 mg PRN Q15MIN PRN IV ANXIETY / AGITATION; Start 04/20/18 at 22:15; Stop 04/22/18 at 14:35; Status DC Levetiracetam (Keppra) 500 mg BID PO Last administered on 04/28/18at 08:29; Start 04/21/18 at 09:00 Gadobutrol (Gadavist) 10 mmol 1X ONCE IV Last administered on 04/21/18at 14:14 ; Start 04/21/18 at 14:00; Stop 04/21/18 at 14:01; Status DC Albuterol/ Ipratropium (Duoneb) 3 ml RTQID NEB Last administered on 04/28/18at 11:07; Start 04/21/18 at 20:00 Enoxaparin Sodium (Lovenox 40mg Syringe) 40 mg Q24H SQ Last administered on 06/30at 12:51; Start 04/24/18 at 12:00; Stop 04/24/18 at 14:57; Status DC Enoxaparin Sodium (Lovenox Per Pharmacy Treatment Dosing) 1 each PRN DAILY PRN MC SEE COMMENTS; Start 04/24/18 at 15:00; Status UNV Enoxaparin Sodium (Lovenox 60mg Syringe) 60 mg 1X ONCE SQ Last administered on 04/24/18at 15:25; Start 04/24/18 at 15:00; Stop 04/24/18 at 15:01; Status DC Enoxaparin Sodium (Lovenox 100mg Syringe) 90 mg Q12HR SQ Last administered on 04/25/18at 08:55; Start 04/24/18 at 23:00; Stop 04/25/18 at 18:47; Status DC Acetaminophen (Tylenol) 650 mg PRN Q6HRS PRN PO MILD PAIN / TEMP Last administered on 04/25/18at 18:51; Start 04/24/18 at 20:00 Enoxaparin Sodium (Lovenox 100mg Syringe) 90 mg Q12HR SQ Last administered on 04/28/18at 08:31; Start 04/26/18 at 09:00 Acetaminophen/ Hydrocodone Bitart (Lortab 5/325) 1 tab PRN Q4HRS PRN PO MOD TO SEVERE PAIN Last administered on 04/27/18at 10:08; Start 04/26/18 at 16:30; Stop 04/27/18 at 11:32; Status DC Acetaminophen/ Hydrocodone Bitart (Lortab 10/325) 1 tab PRN Q6HRS PRN PO MODERATE-SEVERE PAIN; Start 04/27/18 at 11:45; Stop 04/27/18 at 14:02; Status DC Warfarin Sodium (Coumadin Per Pharmacy) 1 each PRN DAILY PRN MC SEE COMMENTS Last administered on 04/27/18at 14:20; Start 04/27/18 at 11:45 Warfarin Sodium (Coumadin) 7.5 mg 1X ONCE PO Last administered on 04/27/18at 17:03; Start 04/27/18 at 16:00; Stop 04/27/18 at 16:01; Status DC Oxycodone/ Acetaminophen (Percocet 5/325) 1 tab PRN Q4HRS PRN PO PAIN Last administered on 04/28/18at 08:30; Start 04/27/18 at 14:15 Active Scripts Active Catapres (Clonidine Hcl) 0.1 Mg Tablet 0.1 Mg PO PRN Q1HR PRN 14 Days Withdrawal symptoms Reported Proair Hfa Inhaler (Albuterol Sulfate) 8.5 Gm Hfa.aer.ad 1 Puff INH PRN Q4HRS PRN Duoneb 0.5-3(2.5) Mg/3 Ml (Albuterol/Ipratropium) 3 Ml Ampul.neb 3 Ml NEB Q2HR PRN Symbicort 160-4.5 Mcg Inhaler (Budesonide/Formoterol Fumarate) 10.2 Gm Hfa.aer.ad 2 Puff IH BID Prilosec Otc (Omeprazole Magnesium) 20 Mg Tablet.dr 1 Tab PO DAILY Theophylline (Theophylline Anhydrous) 400 Mg Tablet.er 300 Mg PO BID Vitals/I & O Vital Sign - Last 24 Hours 04/27/18 04/27/18 04/27/18 04/27/18 15:00 15:05 17:04 19:00 Temp 97.9 99.9 97.9 99.9 Pulse 101 102 Resp 20 23 B/P (MAP) 128/70 (89) 118/61 (80) Pulse Ox 93 94 97 O2 Delivery Room Air Room Air Room Air Room Air 04/27/18 04/27/18 04/27/18 04/27/18 19:16 20:00 22:28 22:57 Temp 97.9 97.9 Pulse 102 Resp 17 20 B/P (MAP) 132/74 (93) Pulse Ox 96 96 96 O2 Delivery Room Air Room Air Room Air Room Air O2 Flow Rate 2.0 04/28/18 04/28/18 04/28/18 04/28/18 02:48 03:00 07:00 07:48 Temp 97.9 97.5 97.9 97.5 Pulse 104 99 Resp 18 20 20 B/P (MAP) 113/65 (81) 116/78 (91) Pulse Ox 96 97 95 O2 Delivery Room Air Room Air Room Air Room Air O2 Flow Rate 2.0 04/28/18 04/28/18 04/28/18 04/28/18 08:00 08:30 09:30 11:08 Resp 20 20 Pulse Ox 94 93 O2 Delivery Room Air Room Air Room Air Room Air 04/28/18 11:27 Temp 97.9 97.9 Pulse 102 Resp 20 B/P (MAP) 110/73 (85) Pulse Ox 97 O2 Delivery Room Air Intake and Output 04/27/18 04/27/18 04/28/18 15:00 23:00 07:00 Intake Total 600 ml 1300 ml 500 ml Output Total 400 ml Balance 600 ml 1300 ml 100 ml BIGG NICHOLE MD Apr 28, 2018 12:20
[2018-04-28 15:00] VITALS: BP 113/67
[2018-04-28] MEDS ORDERED: WARFARIN 3 MG TABLET. PO ONE (16:00)
[2018-04-28] MEDS: ACETAMINOPHEN 325 MG TABLET. PO PRN (17:41)
--- NOTE | 2018-04-28 18:01 | PDOC ---
PROGRESS NOTES Assessment Assessment IMPRESSION: Seizure or seizure like episodes, alcohol related. Pancreatitis. Critical illness neuropathy. Right C7 radiculopathy. Cervical disc disease. Cerebral atrophy. Left LE extensive DVT. RECOMMENDATIONS/PLAN: Continue Keppra for a few months. Treat medical diseases. He has been treated with Coumadin. Alcohol abstinence. FU with Dr. Cai in Neurology Clinic. Past Medical History Cardiovascular: CAD, HTN Pulmonary: Asthma, Other ( sleep apnea) CENTRAL NERVOUS SYSTEM: Seizure (Nursing note says that he has had seizures, patient denies) GI: GERD Heme/Onc: Other ( alcoholic pancreatitis) Psych: Anxiety, Addictions, Depression Musculoskeletal: low back pain ( degenerative disc disease) Rheumatologic: Gout Infectious disease: HIV Endocrine: Diabetes ( prediabetes) Past Surgical History No pertinent history Family History CAD Social History Single, mireles, no tobacco or street drugs, drinks alcohol heavily, but not since going home ALLERGY: Reviewed. MEDICATIONS: Refer to MAR REVIEW OF SYSTEMS: Constitutional: No malnutrition, weight loss, cachexia. Head: No traumatic brain or head injury. Skin: No edema, or rash. Ear: No infection. Eyes: No vision loss, or diplopia. Nose: No bleeding or purulent discharges. Hearing: No hearing decrease. Hearing loss. Neck: No injury. Cardiac: No MD, arrhythmia. Pulmonary: No COPD. GI: No GI Ulcer, GI bleeding. Urinary/genital: No dysuria, incontinence, urinary retention. Endocrine: Over weight.. Skeletomuscular: Weakness.. Neurological: see HP. Psychiatric: Denies drug use/abuse. Otherwise, not [id number] review of systems. PHYSICAL EXAMINATION: General appearance in no acute distress. HEENT: Normocephalic and nontraumatic. Eyes, nose, ears, and throat are unremarkable. Neck is supple. No lymphadenopathy. No Crepitus. Cardiovascular: S1, S2, regular rate and rhythm. Pulmonary: Clear to auscultation bilaterally. Abdomen: Bowel sounds are positive. Abdomen is soft, nontender, and nondistended. Extremities: No rash, lesions. Edema noted in left LE.. No restriction of range of motion NEUROLOGICAL EXAMINATION: Awake. Reactions were slow. Not fully oriented to time, place and person. PERRL. EOMI but gaze very slow. CN: no focal findings. Muscle tone: within normal. Muscle strength: 4- DTR: 1+ Plantar reflex: Flexor response bilaterally Gait: not examined in bed. Sensory exam: no acute abnormal findings. No acute cerebellar signs elicited. F-T-N test not accurate. No tremors noted this time. Objective Objective Vital Signs Date Time Temp Pulse Resp B/P (MAP) Pulse Ox O2 Delivery O2 Flow Rate FiO2 04/28/18 15:02 98 Room Air 04/28/18 15:00 96.7 92 24 113/67 (82) 96.7 04/28/18 03:00 2.0 Intake and Output 04/28/18 07:00 Intake Total 2400 ml Output Total 400 ml Balance 2000 ml Intake Oral 2400 ml Output Urine Total 400 ml Vitals Signs Vitals VS - Last 72 Hours, by Label Date Time Temp Pulse Resp B/P (MAP) Pulse Ox O2 Delivery O2 Flow Rate FiO2 04/28/18 15:02 98 Room Air 04/28/18 15:00 96.7 92 24 113/67 (82) 98 Room Air 96.7 04/28/18 13:50 20 94 Room Air 04/28/18 12:36 20 94 Room Air 04/28/18 11:27 97.9 102 20 110/73 (85) 97 Room Air 97.9 04/28/18 11:08 Room Air 04/28/18 08:30 20 94 Room Air 04/28/18 08:00 Room Air 04/28/18 07:48 Room Air 04/28/18 07:00 97.5 99 20 116/78 (91) 95 Room Air 97.5 04/28/18 03:00 97.9 104 20 113/65 (81) 97 Room Air 2.0 97.9 04/28/18 02:48 18 96 Room Air 04/27/18 22:57 97.9 102 20 132/74 (93) 96 Room Air 2.0 97.9 04/27/18 22:28 17 96 Room Air 04/27/18 20:00 Room Air 04/27/18 19:16 96 Room Air 04/27/18 19:00 99.9 102 23 118/61 (80) 97 Room Air 99.9 04/27/18 17:04 Room Air 04/27/18 15:05 94 Room Air 04/27/18 15:00 97.9 101 20 128/70 (89) 93 Room Air 97.9 04/27/18 11:27 Room Air 04/27/18 11:08 97 Room Air 04/27/18 11:00 98.1 101 20 124/77 (93) 94 Room Air 98.1 04/27/18 10:08 Room Air 04/27/18 08:30 Room Air 04/27/18 07:16 Room Air 04/27/18 07:06 20 04/27/18 07:00 98.4 89 20 129/79 (96) 95 Room Air 98.4 Laboratory Laboratory Laboratory Tests Test 04/28/18 02:55 White Blood Count 7.3 x10^3/uL (4.0-11.0) Red Blood Count 3.88 x10^6/uL (4.30-5.70) Hemoglobin 10.2 g/dL (13.0-17.5) Hematocrit 30.3 % (39.0-53.0) Mean Corpuscular Volume 78 fL (79-100) Mean Corpuscular Hemoglobin 26 pg (25-35) Mean Corpuscular Hemoglobin Concent 34 g/dL (31-37) Red Cell Distribution Width 19.8 % (11.5-14.5) Platelet Count 173 x10^3/uL (140-400) Neutrophils (%) (Auto) 60 % (31-73) Lymphocytes (%) (Auto) 24 % (24-48) Monocytes (%) (Auto) 11 % (0-9) Eosinophils (%) (Auto) 5 % (0-3) Basophils (%) (Auto) 1 % (0-3) Neutrophils # (Auto) 4.4 x10^3uL (1.8-7.7) Lymphocytes # (Auto) 1.8 x10^3/uL (1.0-4.8) Monocytes # (Auto) 0.8 x10^3/uL (0.0-1.1) Eosinophils # (Auto) 0.3 x10^3/uL (0.0-0.7) Basophils # (Auto) 0.0 x10^3/uL (0.0-0.2) Prothrombin Time 14.6 SEC (11.7-14.0) Prothromb Time International Ratio 1.2 (0.8-1.1) Sodium Level 138 mmol/L (136-145) Potassium Level 3.9 mmol/L (3.5-5.1) Chloride Level 100 mmol/L (98-107) Carbon Dioxide Level 26 mmol/L (21-32) Anion Gap 12 (6-14) Blood Urea Nitrogen 15 mg/dL (8-26) Creatinine 0.7 mg/dL (0.7-1.3) Estimated GFR (Cockcroft-Gault) 124.3 Glucose Level 101 mg/dL (70-99) Calcium Level 9.2 mg/dL (8.5-10.1) Microbiology 04/24/18 Blood Culture - Preliminary, Resulted NO GROWTH AFTER 3 DAYS Medication Medications Current Medications Warfarin Sodium (Coumadin) 9 mg 1X WARF ONCE PO Last administered on at 17:42; Start 04/28/18 at 16:00; Stop 04/28/18 at 16:01; Status DC Comment Review of Relevant I have reviewed the following items wali (where applicable) has been applied. EFE CRUZ MD Apr 28, 2018 18:01
[2018-04-28 19:00] VITALS: BP 114/65
[2018-04-28 23:00] VITALS: BP 119/73
[2018-04-29] MEDS: LORazepam 1 MG TABLET PO PRN ×4 (02:33→22:37)
[2018-04-29] MEDS: oxyCODONE/APAP 5/325 1 TAB TABLET PO PRN ×4 (02:34→22:37)
[2018-04-29 03:00] VITALS: BP 105/64
[2018-04-29 05:25] LABS: BASO % 1 % (0-3); EOS # 0.3 x10^3/uL (0.0-0.7); EOS % 5 % (0-3); HEMATOCRIT 28.3 % (39.0-53.0); HEMOGLOBIN 9.3 g/dL (13.0-17.5); LYMPH # 1.3 x10^3/uL (1.0-4.8); LYMPH % 19 % (24-48); MEAN CORPUSCULAR HEMOGLOBIN 26 pg (25-35); MEAN CORPUSCULAR HGB CONC 33 g/dL (31-37); MEAN CORPUSCULAR VOLUME 79 fL (79-100); MONO # 0.7 x10^3/uL (0.0-1.1); MONO % 11 % (0-9); NEUT # 4.3 x10^3uL (1.8-7.7); NEUT % 64 % (31-73); PLATELET COUNT 167 x10^3/uL (140-400); RED BLOOD COUNT 3.59 x10^6/uL (4.30-5.70); RED CELL DISTRIBUTION WIDTH 20.2 % (11.5-14.5); WHITE BLOOD COUNT 6.6 x10^3/uL (4.0-11.0)
[2018-04-29 05:37] LABS: PROTHROMBIN TIME PATIENT 15.1 SEC (11.7-14.0)
[2018-04-29 05:41] LABS: CALCIUM 9.6 mg/dL (8.5-10.1); CREATININE 0.7 mg/dL (0.7-1.3); GFR 124.3
[2018-04-29 07:00] VITALS: BP 110/76
[2018-04-29] MEDS: IPRATRPIUM/ALBUTEROL 0.5/2.5MG 3 ML NEBU. NEB SCH ×4 (08:00→19:20)
[2018-04-29] MEDS: MULTIVITAMIN with MINERAL TABLET. PO SCH (08:48)
[2018-04-29] MEDS: FOLIC ACID 1 MG TABLET. PO SCH (08:48)
[2018-04-29] MEDS: levETIRAcetam 500 MG TABLET PO SCH ×2 (08:48→22:37)
[2018-04-29 11:07] VITALS: BP 113/80
--- NOTE | 2018-04-29 11:38 | PDOC ---
PROGRESS NOTES Chief Complaint Chief Complaint Postural tremor consistent with essential tremor Left leg DVT Possible seizure episodes, partial-complex. 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 Alcoholism, prior metabolic encephalopathy Substance use disorder myopathy, critical dz related right C7 radiculopathy. no central spinal stenosis plan: fu with neuro, on keppra cont PTOT added percocet for pain control on lovenox bid , talked to sw and mother, pt has no insurance, cont warfarin , check INR daily, goal 2-3. will check CTA to rule out PE. but pt's has no IV access for iv contrast. on vitamins. pt able to walk with a walker with PT today, INR still low at 1.2. pt needs to stay in Hosp till stable walking evaluated as PTOT, and till INR 2 IF mother cannot handle lovenox bid at home for bridging coumadin and go to a clinic for INR daily. talked to SW. History of Present Illness History of Present Illness Pt has a chronic history of severe alcohol abuse. He is not tremulous at this time. Neurology notes, per record states to start Keppra for 2-6 months and follow up with neurology in 4-6 weeks. Neurology progress note states pt needs to abstain from alcohol and receive both mental and physical therapy to improve tremor symptoms and weakness. Pt alert and oriented; affect appropriate, pt is complaining of leg pain. His left knee and thigh is TTP DW RN VSS pt has no insurance, alcoholism, father dying at home, mother will take him home if he can walk. left leg DVT, c/o severe left leg pain Vitals Vitals Vital Signs Date Time Temp Pulse Resp B/P (MAP) Pulse Ox O2 Delivery O2 Flow Rate FiO2 04/29/18 11:17 Room Air 04/29/18 11:07 97.7 76 20 113/80 (91) 96 97.7 Physical Exam Physical Exam left leg red, warm, tenderness, swelling. General: Cooperative, No acute distress Heart: Regular rate, Normal S1 Lungs: Clear, Other Abdomen: Normal bowel sounds, Soft Extremities: No clubbing, Normal pulses Skin: No rashes, No breakdown, No significant lesion Labs LABS Laboratory Tests Test 04/29/18 04:30 White Blood Count 6.6 x10^3/uL (4.0-11.0) Red Blood Count 3.59 x10^6/uL (4.30-5.70) Hemoglobin 9.3 g/dL (13.0-17.5) Hematocrit 28.3 % (39.0-53.0) Mean Corpuscular Volume 79 fL (79-100) Mean Corpuscular Hemoglobin 26 pg (25-35) Mean Corpuscular Hemoglobin Concent 33 g/dL (31-37) Red Cell Distribution Width 20.2 % (11.5-14.5) Platelet Count 167 x10^3/uL (140-400) Neutrophils (%) (Auto) 64 % (31-73) Lymphocytes (%) (Auto) 19 % (24-48) Monocytes (%) (Auto) 11 % (0-9) Eosinophils (%) (Auto) 5 % (0-3) Basophils (%) (Auto) 1 % (0-3) Neutrophils # (Auto) 4.3 x10^3uL (1.8-7.7) Lymphocytes # (Auto) 1.3 x10^3/uL (1.0-4.8) Monocytes # (Auto) 0.7 x10^3/uL (0.0-1.1) Eosinophils # (Auto) 0.3 x10^3/uL (0.0-0.7) Basophils # (Auto) 0.0 x10^3/uL (0.0-0.2) Prothrombin Time 15.1 SEC (11.7-14.0) Prothromb Time International Ratio 1.2 (0.8-1.1) Sodium Level 137 mmol/L (136-145) Potassium Level 4.0 mmol/L (3.5-5.1) Chloride Level 99 mmol/L (98-107) Carbon Dioxide Level 28 mmol/L (21-32) Anion Gap 10 (6-14) Blood Urea Nitrogen 13 mg/dL (8-26) Creatinine 0.7 mg/dL (0.7-1.3) Estimated GFR (Cockcroft-Gault) 124.3 Glucose Level 104 mg/dL (70-99) Calcium Level 9.6 mg/dL (8.5-10.1) Comment Review of Relevant I have reviewed the following items wali (where applicable) has been applied. Labs Laboratory Tests Test 04/27/18 12:40 04/28/18 02:55 04/29/18 04:30 Prothrombin Time 14.5 SEC (11.7-14.0) 14.6 SEC (11.7-14.0) 15.1 SEC (11.7-14.0) Prothromb Time International Ratio 1.2 (0.8-1.1) 1.2 (0.8-1.1) 1.2 (0.8-1.1) White Blood Count 7.3 x10^3/uL (4.0-11.0) 6.6 x10^3/uL (4.0-11.0) Red Blood Count 3.88 x10^6/uL (4.30-5.70) 3.59 x10^6/uL (4.30-5.70) Hemoglobin 10.2 g/dL (13.0-17.5) 9.3 g/dL (13.0-17.5) Hematocrit 30.3 % (39.0-53.0) 28.3 % (39.0-53.0) Mean Corpuscular Volume 78 fL (79-100) 79 fL (79-100) Mean Corpuscular Hemoglobin 26 pg (25-35) 26 pg (25-35) Mean Corpuscular Hemoglobin Concent 34 g/dL (31-37) 33 g/dL (31-37) Red Cell Distribution Width 19.8 % (11.5-14.5) 20.2 % (11.5-14.5) Platelet Count 173 x10^3/uL (140-400) 167 x10^3/uL (140-400) Neutrophils (%) (Auto) 60 % (31-73) 64 % (31-73) Lymphocytes (%) (Auto) 24 % (24-48) 19 % (24-48) Monocytes (%) (Auto) 11 % (0-9) 11 % (0-9) Eosinophils (%) (Auto) 5 % (0-3) 5 % (0-3) Basophils (%) (Auto) 1 % (0-3) 1 % (0-3) Neutrophils # (Auto) 4.4 x10^3uL (1.8-7.7) 4.3 x10^3uL (1.8-7.7) Lymphocytes # (Auto) 1.8 x10^3/uL (1.0-4.8) 1.3 x10^3/uL (1.0-4.8) Monocytes # (Auto) 0.8 x10^3/uL (0.0-1.1) 0.7 x10^3/uL (0.0-1.1) Eosinophils # (Auto) 0.3 x10^3/uL (0.0-0.7) 0.3 x10^3/uL (0.0-0.7) Basophils # (Auto) 0.0 x10^3/uL (0.0-0.2) 0.0 x10^3/uL (0.0-0.2) Sodium Level 138 mmol/L (136-145) 137 mmol/L (136-145) Potassium Level 3.9 mmol/L (3.5-5.1) 4.0 mmol/L (3.5-5.1) Chloride Level 100 mmol/L (98-107) 99 mmol/L (98-107) Carbon Dioxide Level 26 mmol/L (21-32) 28 mmol/L (21-32) Anion Gap 12 (6-14) 10 (6-14) Blood Urea Nitrogen 15 mg/dL (8-26) 13 mg/dL (8-26) Creatinine 0.7 mg/dL (0.7-1.3) 0.7 mg/dL (0.7-1.3) Estimated GFR (Cockcroft-Gault) 124.3 124.3 Glucose Level 101 mg/dL (70-99) 104 mg/dL (70-99) Calcium Level 9.2 mg/dL (8.5-10.1) 9.6 mg/dL (8.5-10.1) Laboratory Tests Test 04/29/18 04:30 White Blood Count 6.6 x10^3/uL (4.0-11.0) Red Blood Count 3.59 x10^6/uL (4.30-5.70) Hemoglobin 9.3 g/dL (13.0-17.5) Hematocrit 28.3 % (39.0-53.0) Mean Corpuscular Volume 79 fL (79-100) Mean Corpuscular Hemoglobin 26 pg (25-35) Mean Corpuscular Hemoglobin Concent 33 g/dL (31-37) Red Cell Distribution Width 20.2 % (11.5-14.5) Platelet Count 167 x10^3/uL (140-400) Neutrophils (%) (Auto) 64 % (31-73) Lymphocytes (%) (Auto) 19 % (24-48) Monocytes (%) (Auto) 11 % (0-9) Eosinophils (%) (Auto) 5 % (0-3) Basophils (%) (Auto) 1 % (0-3) Neutrophils # (Auto) 4.3 x10^3uL (1.8-7.7) Lymphocytes # (Auto) 1.3 x10^3/uL (1.0-4.8) Monocytes # (Auto) 0.7 x10^3/uL (0.0-1.1) Eosinophils # (Auto) 0.3 x10^3/uL (0.0-0.7) Basophils # (Auto) 0.0 x10^3/uL (0.0-0.2) Prothrombin Time 15.1 SEC (11.7-14.0) Prothromb Time International Ratio 1.2 (0.8-1.1) Sodium Level 137 mmol/L (136-145) Potassium Level 4.0 mmol/L (3.5-5.1) Chloride Level 99 mmol/L (98-107) Carbon Dioxide Level 28 mmol/L (21-32) Anion Gap 10 (6-14) Blood Urea Nitrogen 13 mg/dL (8-26) Creatinine 0.7 mg/dL (0.7-1.3) Estimated GFR (Cockcroft-Gault) 124.3 Glucose Level 104 mg/dL (70-99) Calcium Level 9.6 mg/dL (8.5-10.1) Microbiology 04/24/18 Blood Culture - Preliminary, Resulted NO GROWTH AFTER 4 DAYS Medications Current Medications Multivitamins 10 ml/Thiamine HCl 100 mg/Folic Acid 1 mg/Sodium Chloride 1,011.2 ml @ 100 mls/ hr DAILY IV Last administered on 04/25/18at 08:54; Start at 09:00; Stop 04/25/18 at 19:07; Status DC Multivitamins (Thera M Plus) 1 tab DAILY PO Last administered on 04/29/18at 08: 48; Start 04/21/18 at 09:00 Folic Acid (Folic Acid) 1 mg DAILY PO Last administered on 04/29/18at 08:48; Start 04/21/18 at 09:00 Thiamine HCl 100 mg/Dextrose 51 ml @ 100 mls/hr DAILY IV Last administered on 04/21/18at 09:08; Start 04/21/18 at 09:00; Stop 04/21/18 at 17:17; Status DC Chlordiazepoxide (Librium) 50 mg PRN Q1HR PRN PO For CIWA 8-14; Start 04/20/18 at 22:15 Chlordiazepoxide (Librium) 100 mg PRN Q1HR PRN PO For CIWA 15 or greater; Start 04/20/18 at 22:15 Lorazepam (Ativan) 4 mg PRN Q1HR PRN PO For CIWA 8-14, 2nd CHOICE Last administered on 04/29/18at 07:14; Start 04/20/18 at 22:15 Lorazepam (Ativan) 8 mg PRN Q1HR PRN PO CIWA 15 or greater,2nd CHOICE; Start 04/20/18 at 22:15 Lorazepam (Ativan) 2 mg PRN Q1HR PRN IV For CIWA 8-14 Last administered on at 19:55; Start 04/20/18 at 22:15 Lorazepam (Ativan) 4 mg PRN Q1HR PRN IV For CIWA 15 or greater Last administered on 04/22/18at 18:25; Start 04/20/18 at 22:15 Haloperidol Lactate (Haldol Inj) 5 mg PRN Q4HRS PRN IVP Hallucinatns,Confusn, Delirium Last administered on 04/24/18at 13:49; Start 04/20/18 at 22:15 Clonidine HCl (Catapres) 0.1 mg PRN Q1HR PRN PO SBP > 180 or DBP > 100, MRX3; Start 04/20/18 at 22:15 Lorazepam (Ativan) 2 mg PRN Q15MIN PRN IV ANXIETY / AGITATION; Start 04/20/18 at 22:15; Stop 04/22/18 at 14:35; Status DC Lorazepam (Ativan) 4 mg PRN Q15MIN PRN IV ANXIETY / AGITATION; Start 04/20/18 at 22:15; Stop 04/22/18 at 14:35; Status DC Levetiracetam (Keppra) 500 mg BID PO Last administered on 04/29/18at 08:48; Start 04/21/18 at 09:00 Gadobutrol (Gadavist) 10 mmol 1X ONCE IV Last administered on 04/21/18at 14:14 ; Start 04/21/18 at 14:00; Stop 04/21/18 at 14:01; Status DC Albuterol/ Ipratropium (Duoneb) 3 ml RTQID NEB Last administered on 04/29/18at 11:15; Start 04/21/18 at 20:00 Enoxaparin Sodium (Lovenox 40mg Syringe) 40 mg Q24H SQ Last administered on 06/30at 12:51; Start 04/24/18 at 12:00; Stop 04/24/18 at 14:57; Status DC Enoxaparin Sodium (Lovenox Per Pharmacy Treatment Dosing) 1 each PRN DAILY PRN MC SEE COMMENTS; Start 04/24/18 at 15:00; Status UNV Enoxaparin Sodium (Lovenox 60mg Syringe) 60 mg 1X ONCE SQ Last administered on 04/24/18at 15:25; Start 04/24/18 at 15:00; Stop 04/24/18 at 15:01; Status DC Enoxaparin Sodium (Lovenox 100mg Syringe) 90 mg Q12HR SQ Last administered on 04/25/18at 08:55; Start 04/24/18 at 23:00; Stop 04/25/18 at 18:47; Status DC Acetaminophen (Tylenol) 650 mg PRN Q6HRS PRN PO MILD PAIN / TEMP Last administered on 04/28/18at 17:41; Start 04/24/18 at 20:00 Enoxaparin Sodium (Lovenox 100mg Syringe) 90 mg Q12HR SQ Last administered on 04/29/18at 08:48; Start 04/26/18 at 09:00 Acetaminophen/ Hydrocodone Bitart (Lortab 5/325) 1 tab PRN Q4HRS PRN PO MOD TO SEVERE PAIN Last administered on 04/27/18at 10:08; Start 04/26/18 at 16:30; Stop 04/27/18 at 11:32; Status DC Acetaminophen/ Hydrocodone Bitart (Lortab 10/325) 1 tab PRN Q6HRS PRN PO MODERATE-SEVERE PAIN; Start 04/27/18 at 11:45; Stop 04/27/18 at 14:02; Status DC Warfarin Sodium (Coumadin Per Pharmacy) 1 each PRN DAILY PRN MC SEE COMMENTS Last administered on 04/28/18at 15:07; Start 04/27/18 at 11:45 Warfarin Sodium (Coumadin) 7.5 mg 1X ONCE PO Last administered on 04/27/18at 17:03; Start 04/27/18 at 16:00; Stop 04/27/18 at 16:01; Status DC Oxycodone/ Acetaminophen (Percocet 5/325) 1 tab PRN Q4HRS PRN PO PAIN Last administered on 04/29/18at 07:14; Start 04/27/18 at 14:15 Warfarin Sodium (Coumadin) 9 mg 1X WARF ONCE PO Last administered on at 17:42; Start 04/28/18 at 16:00; Stop 04/28/18 at 16:01; Status DC Active Scripts Active Catapres (Clonidine Hcl) 0.1 Mg Tablet 0.1 Mg PO PRN Q1HR PRN 14 Days Withdrawal symptoms Reported Proair Hfa Inhaler (Albuterol Sulfate) 8.5 Gm Hfa.aer.ad 1 Puff INH PRN Q4HRS PRN Duoneb 0.5-3(2.5) Mg/3 Ml (Albuterol/Ipratropium) 3 Ml Ampul.neb 3 Ml NEB Q2HR PRN Symbicort 160-4.5 Mcg Inhaler (Budesonide/Formoterol Fumarate) 10.2 Gm Hfa.aer.ad 2 Puff IH BID Prilosec Otc (Omeprazole Magnesium) 20 Mg Tablet.dr 1 Tab PO DAILY Theophylline (Theophylline Anhydrous) 400 Mg Tablet.er 300 Mg PO BID Vitals/I & O Vital Sign - Last 24 Hours 04/28/18 04/28/18 04/28/18 04/28/18 12:36 13:50 15:00 15:02 Temp 96.7 96.7 Pulse 92 Resp 20 20 24 B/P (MAP) 113/67 (82) Pulse Ox 94 94 98 98 O2 Delivery Room Air Room Air Room Air Room Air 04/28/18 04/28/18 04/28/18 04/29/18 19:00 19:29 23:00 03:00 Temp 98.2 97.9 97.7 98.2 97.9 97.7 Pulse 102 91 95 Resp 20 20 20 B/P (MAP) 114/65 (81) 119/73 (88) 105/64 (78) Pulse Ox 92 94 96 O2 Delivery Room Air Room Air Room Air Room Air 04/29/18 04/29/18 04/29/18 04/29/18 07:00 08:00 11:07 11:17 Temp 98.3 97.7 98.3 97.7 Pulse 88 76 Resp 20 20 B/P (MAP) 110/76 (87) 113/80 (91) Pulse Ox 97 96 O2 Delivery Room Air Room Air Room Air Room Air Intake and Output 04/28/18 04/28/18 04/29/18 15:00 23:00 07:00 Intake Total 650 ml 480 ml 500 ml Output Total 150 ml 325 ml 750 ml Balance 500 ml 155 ml -250 ml BIGG NICHOLE MD Apr 29, 2018 11:38
[2018-04-29] MEDS: ACETAMINOPHEN 325 MG TABLET. PO PRN (14:43)
[2018-04-29 15:00] VITALS: BP 125/73
--- NOTE | 2018-04-29 15:02 | PDOC ---
PROGRESS NOTES Assessment Assessment Seizure or seizure like episodes, alcohol related. Pancreatitis. Critical illness neuropathy. Right C7 radiculopathy. Cervical disc disease. Cerebral atrophy. Left LE pain and edema, extensive DVT. RECOMMENDATIONS/PLAN: Continue Keppra for a few months. Treat medical diseases. He has been treated with Coumadin. Alcohol abstinence. OT/PT. Rehab, left LE immobile. FU with Dr. Cai in [facility]rology [facility]. FU with PCP. Past Medical History Cardiovascular: CAD, HTN Pulmonary: Asthma, Other ( sleep apnea) CENTRAL NERVOUS SYSTEM: Seizure (Nursing note says that he has had seizures, patient denies) GI: GERD Heme/Onc: Other ( alcoholic pancreatitis) Psych: Anxiety, Addictions, Depression Musculoskeletal: low back pain ( degenerative disc disease) Rheumatologic: Gout Infectious disease: HIV Endocrine: Diabetes ( prediabetes) Past Surgical History No pertinent history Family History CAD Social History Single, mireles, no tobacco or street drugs, drinks alcohol heavily, but not since going home ALLERGY: Reviewed. MEDICATIONS: Refer to MAR REVIEW OF SYSTEMS: Constitutional: No malnutrition, weight loss, cachexia. Head: No traumatic brain or head injury. Skin: No edema, or rash. Ear: No infection. Eyes: No vision loss, or diplopia. Nose: No bleeding or purulent discharges. Hearing: No hearing decrease. Hearing loss. Neck: No injury. Cardiac: No OR, arrhythmia. Pulmonary: No COPD. GI: No GI Ulcer, GI bleeding. Urinary/genital: No dysuria, incontinence, urinary retention. Endocrine: Over weight.. Skeletomuscular: Weakness.. Neurological: see HP. Psychiatric: Denies drug use/abuse. Otherwise, not [id number] review of systems. PHYSICAL EXAMINATION: General appearance in subacute distress. HEENT: Normocephalic and nontraumatic. Eyes, nose, ears, and throat are unremarkable. Neck is supple. No lymphadenopathy. No Crepitus. Cardiovascular: S1, S2, regular rate and rhythm. Pulmonary: Clear to auscultation bilaterally. Abdomen: Bowel sounds are positive. Abdomen is soft, nontender, and nondistended. Extremities: No rash, lesions. Edema noted in left LE.. No restriction of range of motion NEUROLOGICAL EXAMINATION: Awake. Reactions were slow.but knew place and person. PERRL. EOMI but gaze very slow. CN: no focal findings. Muscle tone: within normal. Muscle strength: 4, unable to move left LE due to pain from DVT. DTR: 1+ Plantar reflex: Flexor response bilaterally Gait: not examined in bed. Sensory exam: no acute abnormal findings. No acute cerebellar signs elicited. F-T-N test not accurate. No tremors noted this time. Objective Objective Vital Signs Date Time Temp Pulse Resp B/P (MAP) Pulse Ox O2 Delivery O2 Flow Rate FiO2 04/29/18 13:33 20 93 Room Air 04/29/18 11:07 97.7 76 113/80 (91) 97.7 Intake and Output 04/29/18 07:00 Intake Total 1630 ml Output Total 1225 ml Balance 405 ml Intake Oral 1630 ml Output Urine Total 1225 ml Vitals Signs Vitals VS - Last 72 Hours, by Label Date Time Temp Pulse Resp B/P (MAP) Pulse Ox O2 Delivery O2 Flow Rate FiO2 04/29/18 13:33 20 93 Room Air 04/29/18 12:33 Room Air 04/29/18 11:17 Room Air 04/29/18 11:07 97.7 76 20 113/80 (91) 96 Room Air 97.7 04/29/18 08:00 Room Air 04/29/18 07:00 98.3 88 20 110/76 (87) 97 Room Air 98.3 04/29/18 03:00 97.7 95 20 105/64 (78) 96 Room Air 97.7 04/28/18 23:00 97.9 91 20 119/73 (88) 94 Room Air 97.9 04/28/18 19:29 Room Air 04/28/18 19:00 98.2 102 20 114/65 (81) 92 Room Air 98.2 04/28/18 15:02 98 Room Air 04/28/18 15:00 96.7 92 24 113/67 (82) 98 Room Air 96.7 04/28/18 12:36 20 94 Room Air 04/28/18 11:27 97.9 102 20 110/73 (85) 97 Room Air 97.9 04/28/18 11:08 Room Air 04/28/18 08:30 20 94 Room Air 04/28/18 08:00 Room Air 04/28/18 07:48 Room Air 04/28/18 07:00 97.5 99 20 116/78 (91) 95 Room Air 97.5 Laboratory Laboratory Laboratory Tests Test 04/29/18 04:30 White Blood Count 6.6 x10^3/uL (4.0-11.0) Red Blood Count 3.59 x10^6/uL (4.30-5.70) Hemoglobin 9.3 g/dL (13.0-17.5) Hematocrit 28.3 % (39.0-53.0) Mean Corpuscular Volume 79 fL (79-100) Mean Corpuscular Hemoglobin 26 pg (25-35) Mean Corpuscular Hemoglobin Concent 33 g/dL (31-37) Red Cell Distribution Width 20.2 % (11.5-14.5) Platelet Count 167 x10^3/uL (140-400) Neutrophils (%) (Auto) 64 % (31-73) Lymphocytes (%) (Auto) 19 % (24-48) Monocytes (%) (Auto) 11 % (0-9) Eosinophils (%) (Auto) 5 % (0-3) Basophils (%) (Auto) 1 % (0-3) Neutrophils # (Auto) 4.3 x10^3uL (1.8-7.7) Lymphocytes # (Auto) 1.3 x10^3/uL (1.0-4.8) Monocytes # (Auto) 0.7 x10^3/uL (0.0-1.1) Eosinophils # (Auto) 0.3 x10^3/uL (0.0-0.7) Basophils # (Auto) 0.0 x10^3/uL (0.0-0.2) Prothrombin Time 15.1 SEC (11.7-14.0) Prothromb Time International Ratio 1.2 (0.8-1.1) Sodium Level 137 mmol/L (136-145) Potassium Level 4.0 mmol/L (3.5-5.1) Chloride Level 99 mmol/L (98-107) Carbon Dioxide Level 28 mmol/L (21-32) Anion Gap 10 (6-14) Blood Urea Nitrogen 13 mg/dL (8-26) Creatinine 0.7 mg/dL (0.7-1.3) Estimated GFR (Cockcroft-Gault) 124.3 Glucose Level 104 mg/dL (70-99) Calcium Level 9.6 mg/dL (8.5-10.1) Microbiology 04/24/18 Blood Culture - Preliminary, Resulted NO GROWTH AFTER 4 DAYS Medication Medications Current Medications Warfarin Sodium (Coumadin) 9 mg 1X WARF ONCE PO Last administered on at 17:42; Start 04/28/18 at 16:00; Stop 04/28/18 at 16:01; Status DC Warfarin Sodium (Coumadin) 10 mg 1X WARF ONCE PO ; Start 04/29/18 at 16:00; Stop 04/29/18 at 16:01 Comment Review of Relevant I have reviewed the following items wali (where applicable) has been applied. EFE CRUZ MD Apr 29, 2018 15:02
[2018-04-29] MEDS ORDERED: WARFARIN 5 MG TABLET. PO ONE (16:00)
[2018-04-29 19:00] VITALS: BP 105/68
[2018-04-29 23:00] VITALS: BP 114/74
[2018-04-30] MEDS: LORazepam 1 MG TABLET PO PRN ×5 (01:46→21:58)
[2018-04-30] MEDS: oxyCODONE/APAP 5/325 1 TAB TABLET PO PRN ×5 (01:46→21:57)
[2018-04-30 03:00] VITALS: BP 106/69
[2018-04-30 07:00] VITALS: BP 120/70
[2018-04-30] MEDS: IPRATRPIUM/ALBUTEROL 0.5/2.5MG 3 ML NEBU. NEB SCH ×4 (07:37→20:00)
[2018-04-30] MEDS: FOLIC ACID 1 MG TABLET. PO SCH (08:00)
[2018-04-30] MEDS: MULTIVITAMIN with MINERAL TABLET. PO SCH (08:00)
[2018-04-30] MEDS: levETIRAcetam 500 MG TABLET PO SCH ×2 (08:00→20:14)
[2018-04-30] MEDS: ACETAMINOPHEN 325 MG TABLET. PO PRN ×2 (08:01→16:26)
[2018-04-30 11:00] VITALS: BP 104/54
--- NOTE | 2018-04-30 13:19 | PDOC ---
PROGRESS NOTES Chief Complaint Chief Complaint Postural tremor consistent with essential tremor Left leg DVT Possible seizure episodes, partial-complex. 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 Alcoholism, prior metabolic encephalopathy Substance use disorder myopathy, critical dz related right C7 radiculopathy. no central spinal stenosis plan: fu with neuro, on keppra cont PTOT added percocet for pain control on lovenox bid , talked to sw and mother, pt has no insurance, cont warfarin , check INR daily, goal 2-3. wanted to check CTA to rule out PE. but pt's has no IV access for iv contrast. on vitamins. pt able to walk with a walker with PTOT, INR still low at 1.4. pt needs to stay in Hosp till stable walking evaluated as PTOT, and till INR 2 IF mother cannot handle lovenox bid at home for bridging coumadin and go to a clinic for INR daily. talked to SW. History of Present Illness History of Present Illness Pt has a chronic history of severe alcohol abuse. He is not tremulous at this time. Neurology notes, per record states to start Keppra for 2-6 months and follow up with neurology in 4-6 weeks. Neurology progress note states pt needs to abstain from alcohol and receive both mental and physical therapy to improve tremor symptoms and weakness. Pt alert and oriented; affect appropriate, pt is complaining of leg pain. His left knee and thigh is TTP DW RN VSS pt has no insurance, alcoholism, father dying at home, mother will take him home if he can walk. left leg DVT, c/o eft leg pain better walks better with PTOT Vitals Vitals Vital Signs Date Time Temp Pulse Resp B/P (MAP) Pulse Ox O2 Delivery O2 Flow Rate FiO2 04/30/18 11:13 Room Air 04/30/18 11:00 97.7 80 20 104/54 (71) 97 97.7 Physical Exam Physical Exam left leg red, warm, tenderness, swelling. General: Cooperative, No acute distress Heart: Regular rate, Normal S1 Lungs: Clear, Other Abdomen: Normal bowel sounds, Soft Extremities: No clubbing, Normal pulses Skin: No rashes, No breakdown, No significant lesion Labs LABS Laboratory Tests Test 04/30/18 04:05 Prothrombin Time 17.0 SEC (11.7-14.0) Prothromb Time International Ratio 1.4 (0.8-1.1) Comment Review of Relevant I have reviewed the following items wali (where applicable) has been applied. Labs Laboratory Tests Test 04/29/18 04:30 04/30/18 04:05 White Blood Count 6.6 x10^3/uL (4.0-11.0) Red Blood Count 3.59 x10^6/uL (4.30-5.70) Hemoglobin 9.3 g/dL (13.0-17.5) Hematocrit 28.3 % (39.0-53.0) Mean Corpuscular Volume 79 fL (79-100) Mean Corpuscular Hemoglobin 26 pg (25-35) Mean Corpuscular Hemoglobin Concent 33 g/dL (31-37) Red Cell Distribution Width 20.2 % (11.5-14.5) Platelet Count 167 x10^3/uL (140-400) Neutrophils (%) (Auto) 64 % (31-73) Lymphocytes (%) (Auto) 19 % (24-48) Monocytes (%) (Auto) 11 % (0-9) Eosinophils (%) (Auto) 5 % (0-3) Basophils (%) (Auto) 1 % (0-3) Neutrophils # (Auto) 4.3 x10^3uL (1.8-7.7) Lymphocytes # (Auto) 1.3 x10^3/uL (1.0-4.8) Monocytes # (Auto) 0.7 x10^3/uL (0.0-1.1) Eosinophils # (Auto) 0.3 x10^3/uL (0.0-0.7) Basophils # (Auto) 0.0 x10^3/uL (0.0-0.2) Prothrombin Time 15.1 SEC (11.7-14.0) 17.0 SEC (11.7-14.0) Prothromb Time International Ratio 1.2 (0.8-1.1) 1.4 (0.8-1.1) Sodium Level 137 mmol/L (136-145) Potassium Level 4.0 mmol/L (3.5-5.1) Chloride Level 99 mmol/L (98-107) Carbon Dioxide Level 28 mmol/L (21-32) Anion Gap 10 (6-14) Blood Urea Nitrogen 13 mg/dL (8-26) Creatinine 0.7 mg/dL (0.7-1.3) Estimated GFR (Cockcroft-Gault) 124.3 Glucose Level 104 mg/dL (70-99) Calcium Level 9.6 mg/dL (8.5-10.1) Laboratory Tests Test 04/30/18 04:05 Prothrombin Time 17.0 SEC (11.7-14.0) Prothromb Time International Ratio 1.4 (0.8-1.1) Microbiology 04/24/18 Blood Culture - Final, Complete NO GROWTH AFTER 5 DAYS Medications Current Medications Multivitamins 10 ml/Thiamine HCl 100 mg/Folic Acid 1 mg/Sodium Chloride 1,011.2 ml @ 100 mls/ hr DAILY IV Last administered on 04/25/18at 08:54; Start at 09:00; Stop 04/25/18 at 19:07; Status DC Multivitamins (Thera M Plus) 1 tab DAILY PO Last administered on 04/30/18at 08: 00; Start 04/21/18 at 09:00 Folic Acid (Folic Acid) 1 mg DAILY PO Last administered on 04/30/18at 08:00; Start 04/21/18 at 09:00 Thiamine HCl 100 mg/Dextrose 51 ml @ 100 mls/hr DAILY IV Last administered on 04/21/18at 09:08; Start 04/21/18 at 09:00; Stop 04/21/18 at 17:17; Status DC Chlordiazepoxide (Librium) 50 mg PRN Q1HR PRN PO For CIWA 8-14; Start 04/20/18 at 22:15 Chlordiazepoxide (Librium) 100 mg PRN Q1HR PRN PO For CIWA 15 or greater; Start 04/20/18 at 22:15; Stop 04/29/18 at 11:37; Status DC Lorazepam (Ativan) 4 mg PRN Q1HR PRN PO For CIWA 8-14, 2nd CHOICE Last administered on 04/30/18at 11:25; Start 04/20/18 at 22:15 Lorazepam (Ativan) 8 mg PRN Q1HR PRN PO CIWA 15 or greater,2nd CHOICE; Start 04/20/18 at 22:15; Stop 04/29/18 at 11:37; Status DC Lorazepam (Ativan) 2 mg PRN Q1HR PRN IV For CIWA 8-14 Last administered on at 19:55; Start 04/20/18 at 22:15 Lorazepam (Ativan) 4 mg PRN Q1HR PRN IV For CIWA 15 or greater Last administered on 04/22/18at 18:25; Start 04/20/18 at 22:15; Stop 04/29/18 at 11: 37; Status DC Haloperidol Lactate (Haldol Inj) 5 mg PRN Q4HRS PRN IVP Hallucinatns,Confusn, Delirium Last administered on 04/24/18at 13:49; Start 04/20/18 at 22:15 Clonidine HCl (Catapres) 0.1 mg PRN Q1HR PRN PO SBP > 180 or DBP > 100, MRX3; Start 04/20/18 at 22:15 Lorazepam (Ativan) 2 mg PRN Q15MIN PRN IV ANXIETY / AGITATION; Start 04/20/18 at 22:15; Stop 04/22/18 at 14:35; Status DC Lorazepam (Ativan) 4 mg PRN Q15MIN PRN IV ANXIETY / AGITATION; Start 04/20/18 at 22:15; Stop 04/22/18 at 14:35; Status DC Levetiracetam (Keppra) 500 mg BID PO Last administered on 04/30/18at 08:00; Start 04/21/18 at 09:00 Gadobutrol (Gadavist) 10 mmol 1X ONCE IV Last administered on 04/21/18at 14:14 ; Start 04/21/18 at 14:00; Stop 04/21/18 at 14:01; Status DC Albuterol/ Ipratropium (Duoneb) 3 ml RTQID NEB Last administered on 04/30/18at 11:12; Start 04/21/18 at 20:00 Enoxaparin Sodium (Lovenox 40mg Syringe) 40 mg Q24H SQ Last administered on 06/30at 12:51; Start 04/24/18 at 12:00; Stop 04/24/18 at 14:57; Status DC Enoxaparin Sodium (Lovenox Per Pharmacy Treatment Dosing) 1 each PRN DAILY PRN MC SEE COMMENTS; Start 04/24/18 at 15:00; Status UNV Enoxaparin Sodium (Lovenox 60mg Syringe) 60 mg 1X ONCE SQ Last administered on 04/24/18at 15:25; Start 04/24/18 at 15:00; Stop 04/24/18 at 15:01; Status DC Enoxaparin Sodium (Lovenox 100mg Syringe) 90 mg Q12HR SQ Last administered on 04/25/18at 08:55; Start 04/24/18 at 23:00; Stop 04/25/18 at 18:47; Status DC Acetaminophen (Tylenol) 650 mg PRN Q6HRS PRN PO MILD PAIN / TEMP Last administered on 04/30/18at 08:01; Start 04/24/18 at 20:00 Enoxaparin Sodium (Lovenox 100mg Syringe) 90 mg Q12HR SQ Last administered on 04/30/18at 08:01; Start 04/26/18 at 09:00 Acetaminophen/ Hydrocodone Bitart (Lortab 5/325) 1 tab PRN Q4HRS PRN PO MOD TO SEVERE PAIN Last administered on 04/27/18at 10:08; Start 04/26/18 at 16:30; Stop 04/27/18 at 11:32; Status DC Acetaminophen/ Hydrocodone Bitart (Lortab 10/325) 1 tab PRN Q6HRS PRN PO MODERATE-SEVERE PAIN; Start 04/27/18 at 11:45; Stop 04/27/18 at 14:02; Status DC Warfarin Sodium (Coumadin Per Pharmacy) 1 each PRN DAILY PRN MC SEE COMMENTS Last administered on 04/29/18at 13:30; Start 04/27/18 at 11:45 Warfarin Sodium (Coumadin) 7.5 mg 1X ONCE PO Last administered on 04/27/18at 17:03; Start 04/27/18 at 16:00; Stop 04/27/18 at 16:01; Status DC Oxycodone/ Acetaminophen (Percocet 5/325) 1 tab PRN Q4HRS PRN PO MODERATE TO SEVERE PAIN Last administered on 04/30/18at 06:05; Start 04/27/18 at 14:15 Warfarin Sodium (Coumadin) 9 mg 1X WARF ONCE PO Last administered on at 17:42; Start 04/28/18 at 16:00; Stop 04/28/18 at 16:01; Status DC Warfarin Sodium (Coumadin) 10 mg 1X WARF ONCE PO Last administered on at 16:31; Start 04/29/18 at 16:00; Stop 04/29/18 at 16:01; Status DC Active Scripts Active Catapres (Clonidine Hcl) 0.1 Mg Tablet 0.1 Mg PO PRN Q1HR PRN 14 Days Withdrawal symptoms Reported Proair Hfa Inhaler (Albuterol Sulfate) 8.5 Gm Hfa.aer.ad 1 Puff INH PRN Q4HRS PRN Duoneb 0.5-3(2.5) Mg/3 Ml (Albuterol/Ipratropium) 3 Ml Ampul.neb 3 Ml NEB Q2HR PRN Symbicort 160-4.5 Mcg Inhaler (Budesonide/Formoterol Fumarate) 10.2 Gm Hfa.aer.ad 2 Puff IH BID Prilosec Otc (Omeprazole Magnesium) 20 Mg Tablet.dr 1 Tab PO DAILY Theophylline (Theophylline Anhydrous) 400 Mg Tablet.er 300 Mg PO BID Vitals/I & O Vital Sign - Last 24 Hours 04/29/18 04/29/18 04/29/18 04/29/18 13:33 15:00 15:23 19:00 Temp 97.5 98.3 97.5 98.3 Pulse 98 98 Resp 20 20 18 B/P (MAP) 125/73 (90) 105/68 (80) Pulse Ox 93 96 97 96 O2 Delivery Room Air Room Air 04/29/18 04/29/18 04/30/18 04/30/18 19:22 23:00 01:46 03:00 Temp 98.3 97.5 98.3 97.5 Pulse 85 77 Resp 18 20 B/P (MAP) 114/74 (87) 106/69 (81) Pulse Ox 99 97 95 O2 Delivery Room Air Room Air 04/30/18 04/30/18 04/30/18 04/30/18 07:00 07:39 07:59 08:00 Temp 97.5 97.5 Pulse 98 Resp 20 B/P (MAP) 120/70 (87) Pulse Ox 96 96 O2 Delivery Room Air Room Air Room Air Room Air 04/30/18 04/30/18 11:00 11:13 Temp 97.7 97.7 Pulse 80 Resp 20 B/P (MAP) 104/54 (71) Pulse Ox 97 O2 Delivery Room Air Room Air Intake and Output 04/29/18 04/29/18 04/30/18 15:00 23:00 07:00 Intake Total 720 ml 250 ml Output Total 400 ml Balance 720 ml -150 ml BIGG NICHOLE MD Apr 30, 2018 13:19
[2018-04-30 15:00] VITALS: BP 111/75
[2018-04-30] MEDS ORDERED: WARFARIN 5 MG TABLET. PO ONE (17:00)
--- NOTE | 2018-04-30 18:57 | PDOC ---
PROGRESS NOTES Assessment Assessment Seizure or seizure like episodes, alcohol related. Pancreatitis. Critical illness neuropathy. Right C7 radiculopathy. Cervical disc disease. Cerebral atrophy. Left LE pain and edema, extensive DVT. RECOMMENDATIONS/PLAN: Continue Keppra for a few months. Treat medical diseases. He has been treated with Coumadin. Alcohol abstinence. OT/PT. Rehab, left LE immobile. FU with Dr. Cai in [facility]rology Clinic. FU with PCP. Past Medical History Cardiovascular: CAD, HTN Pulmonary: Asthma, Other ( sleep apnea) CENTRAL NERVOUS SYSTEM: Seizure (Nursing note says that he has had seizures, patient denies) GI: GERD Heme/Onc: Other ( alcoholic pancreatitis) Psych: Anxiety, Addictions, Depression Musculoskeletal: low back pain ( degenerative disc disease) Rheumatologic: Gout Infectious disease: HIV Endocrine: Diabetes ( prediabetes) Past Surgical History No pertinent history Family History CAD Social History Single, mireles, no tobacco or street drugs, drinks alcohol heavily, but not since going home ALLERGY: Reviewed. MEDICATIONS: Refer to MAR REVIEW OF SYSTEMS: Constitutional: No malnutrition, weight loss, cachexia. Head: No traumatic brain or head injury. Skin: No edema, or rash. Ear: No infection. Eyes: No vision loss, or diplopia. Nose: No bleeding or purulent discharges. Hearing: No hearing decrease. Hearing loss. Neck: No injury. Cardiac: No MS, arrhythmia. Pulmonary: No COPD. GI: No GI Ulcer, GI bleeding. Urinary/genital: No dysuria, incontinence, urinary retention. Endocrine: Over weight.. Skeletomuscular: Weakness.. Neurological: see HP. Psychiatric: Denies drug use/abuse. Otherwise, not [id number] review of systems. PHYSICAL EXAMINATION: General appearance in subacute distress. HEENT: Normocephalic and nontraumatic. Eyes, nose, ears, and throat are unremarkable. Neck is supple. No lymphadenopathy. No Crepitus. Cardiovascular: S1, S2, regular rate and rhythm. Pulmonary: Clear to auscultation bilaterally. Abdomen: Bowel sounds are positive. Abdomen is soft, nontender, and nondistended. Extremities: No rash, lesions. Edema noted in left LE.. No restriction of range of motion NEUROLOGICAL EXAMINATION: Awake. Reactions were slow.but knew time, place and person. PERRL. EOMI but gaze very slow. CN: no focal findings. Muscle tone: within normal. Muscle strength: 4, unable to move left LE due to pain from DVT. DTR: 1+ Plantar reflex: Flexor response bilaterally Gait: not examined in bed. Sensory exam: no acute abnormal findings. No acute cerebellar signs elicited. F-T-N test not accurate. No tremors noted this time. Objective Objective Vital Signs Date Time Temp Pulse Resp B/P (MAP) Pulse Ox O2 Delivery O2 Flow Rate FiO2 04/30/18 18:08 Room Air 04/30/18 15:00 98.3 90 20 111/75 (87) 99 98.3 Intake and Output 04/30/18 07:00 Intake Total 970 ml Output Total 400 ml Balance 570 ml Intake Oral 970 ml Output Urine Total 400 ml # Voids 4 # Bowel Movements 1 Vitals Signs Vitals VS - Last 72 Hours, by Label Date Time Temp Pulse Resp B/P (MAP) Pulse Ox O2 Delivery O2 Flow Rate FiO2 04/30/18 18:08 Room Air 04/30/18 15:26 Room Air 04/30/18 15:00 98.3 90 20 111/75 (87) 99 Room Air 98.3 04/30/18 14:06 Room Air 04/30/18 11:13 Room Air 04/30/18 11:00 97.7 80 20 104/54 (71) 97 Room Air 97.7 04/30/18 08:00 Room Air 04/30/18 07:59 Room Air 04/30/18 07:39 96 Room Air 04/30/18 07:00 97.5 98 20 120/70 (87) 96 Room Air 97.5 04/30/18 03:00 97.5 77 20 106/69 (81) 95 97.5 04/30/18 01:46 Room Air 04/29/18 23:00 98.3 85 18 114/74 (87) 97 98.3 04/29/18 19:22 99 Room Air 04/29/18 19:00 98.3 98 18 105/68 (80) 96 98.3 04/29/18 15:23 97 Room Air 04/29/18 15:00 97.5 98 20 125/73 (90) 96 Room Air 97.5 04/29/18 13:33 20 93 04/29/18 12:33 Room Air 04/29/18 11:17 Room Air 04/29/18 11:07 97.7 76 20 113/80 (91) 96 Room Air 97.7 04/29/18 08:00 Room Air 04/29/18 07:00 98.3 88 20 110/76 (87) 97 Room Air 98.3 Laboratory Laboratory Laboratory Tests Test 04/30/18 04:05 Prothrombin Time 17.0 SEC (11.7-14.0) Prothromb Time International Ratio 1.4 (0.8-1.1) Microbiology 04/24/18 Blood Culture - Final, Complete NO GROWTH AFTER 5 DAYS Medication Medications Current Medications Warfarin Sodium (Coumadin) 10 mg 1X WARF ONCE PO Last administered on at 17:03; Start 04/30/18 at 17:00; Stop 04/30/18 at 17:01; Status DC Comment Review of Relevant I have reviewed the following items wali (where applicable) has been applied. EFE CRUZ MD Apr 30, 2018 18:57
[2018-04-30 19:00] VITALS: BP 128/94
[2018-04-30] MEDS ORDERED: ONDANSETRON ODT 4 MG TAB.RAPDIS. PO PRN (21:30)
[2018-04-30] MEDS: diphenhydrAMINE HCL 25 MG CAPSULE PO PRN (21:57)
[2018-04-30] MEDS ORDERED: CALCIUM CARBONATE 500 MG TAB.CHEW PO ONE (22:00)
[2018-04-30] MEDS ORDERED: PANTOPRAZOLE 40 MG TABLET.DR. PO ONE (22:00)
[2018-04-30 23:00] VITALS: BP 103/72
[2018-05-01 03:00] VITALS: BP 118/84
[2018-05-01] MEDS: oxyCODONE/APAP 5/325 1 TAB TABLET PO PRN ×4 (03:21→17:45)
[2018-05-01 05:19] LABS: PROTHROMBIN TIME PATIENT 17.6 SEC (11.7-14.0)
[2018-05-01] MEDS: IPRATRPIUM/ALBUTEROL 0.5/2.5MG 3 ML NEBU. NEB SCH ×4 (06:56→19:04)
[2018-05-01 07:00] VITALS: BP 118/84
[2018-05-01] MEDS: FOLIC ACID 1 MG TABLET. PO SCH (07:53)
[2018-05-01] MEDS: levETIRAcetam 500 MG TABLET PO SCH ×2 (07:53→21:06)
[2018-05-01] MEDS: MULTIVITAMIN with MINERAL TABLET. PO SCH (07:53)
[2018-05-01] MEDS: PANTOPRAZOLE 40 MG TABLET.DR. PO SCH (07:54)
[2018-05-01] MEDS ORDERED: CALCIUM CARBONATE 500 MG TAB.CHEW PO PRN (08:00)
[2018-05-01 11:00] VITALS: BP 119/78
--- NOTE | 2018-05-01 11:11 | PDOC ---
PROGRESS NOTES Chief Complaint Chief Complaint Postural tremor consistent with essential tremor Left leg DVT Possible seizure episodes, partial-complex. 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 Alcoholism, prior metabolic encephalopathy Substance use disorder myopathy, critical dz related right C7 radiculopathy. no central spinal stenosis plan: fu with neuro, on keppra cont PTOT added percocet for pain control on lovenox bid , talked to sw and mother, pt has no insurance, cont warfarin , check INR daily, goal 2-3. wanted to check CTA to rule out PE. but pt's has no IV access for iv contrast. on vitamins. pt able to walk with a walker with PTOT, INR still low at 1.5. pt needs to stay in Hosp till stable walking evaluated as PTOT, and till INR 2 IF mother cannot handle lovenox bid at home for bridging coumadin and go to a clinic for INR daily. talked to SW. History of Present Illness History of Present Illness Pt has a chronic history of severe alcohol abuse. He is not tremulous at this time. Neurology notes, per record states to start Keppra for 2-6 months and follow up with neurology in 4-6 weeks. Neurology progress note states pt needs to abstain from alcohol and receive both mental and physical therapy to improve tremor symptoms and weakness. Pt alert and oriented; affect appropriate, pt is complaining of leg pain. His left knee and thigh is TTP DW RN VSS pt has no insurance, alcoholism, father dying at home, mother will take him home if he can walk. left leg DVT, c/o eft leg pain better walks better with PTOT INR 1.5 today, goal 2-3 Vitals Vitals Vital Signs Date Time Temp Pulse Resp B/P (MAP) Pulse Ox O2 Delivery O2 Flow Rate FiO2 05/01/18 11:08 Room Air 05/01/18 07:00 97.6 80 18 118/84 (95) 96 97.6 Physical Exam Physical Exam left leg red, warm, tenderness, swelling. General: Cooperative, No acute distress Heart: Regular rate, Normal S1 Lungs: Clear, Other Abdomen: Normal bowel sounds, Soft Extremities: No clubbing, Normal pulses Skin: No rashes, No breakdown, No significant lesion Labs LABS Laboratory Tests Test 05/01/18 03:20 Prothrombin Time 17.6 SEC (11.7-14.0) Prothromb Time International Ratio 1.5 (0.8-1.1) Comment Review of Relevant I have reviewed the following items wali (where applicable) has been applied. Labs Laboratory Tests Test 04/30/18 04:05 05/01/18 03:20 Prothrombin Time 17.0 SEC (11.7-14.0) 17.6 SEC (11.7-14.0) Prothromb Time International Ratio 1.4 (0.8-1.1) 1.5 (0.8-1.1) Laboratory Tests Test 05/01/18 03:20 Prothrombin Time 17.6 SEC (11.7-14.0) Prothromb Time International Ratio 1.5 (0.8-1.1) Microbiology 04/24/18 Blood Culture - Final, Complete NO GROWTH AFTER 5 DAYS Medications Current Medications Multivitamins 10 ml/Thiamine HCl 100 mg/Folic Acid 1 mg/Sodium Chloride 1,011.2 ml @ 100 mls/ hr DAILY IV Last administered on 04/25/18at 08:54; Start at 09:00; Stop 04/25/18 at 19:07; Status DC Multivitamins (Thera M Plus) 1 tab DAILY PO Last administered on 05/01/18at 07: 53; Start 04/21/18 at 09:00 Folic Acid (Folic Acid) 1 mg DAILY PO Last administered on 05/01/18at 07:53; Start 04/21/18 at 09:00 Thiamine HCl 100 mg/Dextrose 51 ml @ 100 mls/hr DAILY IV Last administered on 04/21/18at 09:08; Start 04/21/18 at 09:00; Stop 04/21/18 at 17:17; Status DC Chlordiazepoxide (Librium) 50 mg PRN Q1HR PRN PO For CIWA 8-14; Start 04/20/18 at 22:15 Chlordiazepoxide (Librium) 100 mg PRN Q1HR PRN PO For CIWA 15 or greater; Start 04/20/18 at 22:15; Stop 04/29/18 at 11:37; Status DC Lorazepam (Ativan) 4 mg PRN Q1HR PRN PO For CIWA 8-14, 2nd CHOICE Last administered on 04/30/18at 21:58; Start 04/20/18 at 22:15 Lorazepam (Ativan) 8 mg PRN Q1HR PRN PO CIWA 15 or greater,2nd CHOICE; Start 04/20/18 at 22:15; Stop 04/29/18 at 11:37; Status DC Lorazepam (Ativan) 2 mg PRN Q1HR PRN IV For CIWA 8-14 Last administered on at 19:55; Start 04/20/18 at 22:15 Lorazepam (Ativan) 4 mg PRN Q1HR PRN IV For CIWA 15 or greater Last administered on 04/22/18at 18:25; Start 04/20/18 at 22:15; Stop 04/29/18 at 11: 37; Status DC Haloperidol Lactate (Haldol Inj) 5 mg PRN Q4HRS PRN IVP Hallucinatns,Confusn, Delirium Last administered on 04/24/18at 13:49; Start 04/20/18 at 22:15 Clonidine HCl (Catapres) 0.1 mg PRN Q1HR PRN PO SBP > 180 or DBP > 100, MRX3; Start 04/20/18 at 22:15 Lorazepam (Ativan) 2 mg PRN Q15MIN PRN IV ANXIETY / AGITATION; Start 04/20/18 at 22:15; Stop 04/22/18 at 14:35; Status DC Lorazepam (Ativan) 4 mg PRN Q15MIN PRN IV ANXIETY / AGITATION; Start 04/20/18 at 22:15; Stop 04/22/18 at 14:35; Status DC Levetiracetam (Keppra) 500 mg BID PO Last administered on 05/01/18at 07:53; Start 04/21/18 at 09:00 Gadobutrol (Gadavist) 10 mmol 1X ONCE IV Last administered on 04/21/18at 14:14 ; Start 04/21/18 at 14:00; Stop 04/21/18 at 14:01; Status DC Albuterol/ Ipratropium (Duoneb) 3 ml RTQID NEB Last administered on 05/01/18at 11:07; Start 04/21/18 at 20:00 Enoxaparin Sodium (Lovenox 40mg Syringe) 40 mg Q24H SQ Last administered on 06/30at 12:51; Start 04/24/18 at 12:00; Stop 04/24/18 at 14:57; Status DC Enoxaparin Sodium (Lovenox Per Pharmacy Treatment Dosing) 1 each PRN DAILY PRN MC SEE COMMENTS; Start 04/24/18 at 15:00; Status UNV Enoxaparin Sodium (Lovenox 60mg Syringe) 60 mg 1X ONCE SQ Last administered on 04/24/18at 15:25; Start 04/24/18 at 15:00; Stop 04/24/18 at 15:01; Status DC Enoxaparin Sodium (Lovenox 100mg Syringe) 90 mg Q12HR SQ Last administered on 04/25/18at 08:55; Start 04/24/18 at 23:00; Stop 04/25/18 at 18:47; Status DC Acetaminophen (Tylenol) 650 mg PRN Q6HRS PRN PO MILD PAIN / TEMP Last administered on 04/30/18at 16:26; Start 04/24/18 at 20:00 Enoxaparin Sodium (Lovenox 100mg Syringe) 90 mg Q12HR SQ Last administered on 05/01/18at 07:54; Start 04/26/18 at 09:00 Acetaminophen/ Hydrocodone Bitart (Lortab 5/325) 1 tab PRN Q4HRS PRN PO MOD TO SEVERE PAIN Last administered on 04/27/18at 10:08; Start 04/26/18 at 16:30; Stop 04/27/18 at 11:32; Status DC Acetaminophen/ Hydrocodone Bitart (Lortab 10/325) 1 tab PRN Q6HRS PRN PO MODERATE-SEVERE PAIN; Start 04/27/18 at 11:45; Stop 04/27/18 at 14:02; Status DC Warfarin Sodium (Coumadin Per Pharmacy) 1 each PRN DAILY PRN MC SEE COMMENTS Last administered on 04/30/18at 16:49; Start 04/27/18 at 11:45 Warfarin Sodium (Coumadin) 7.5 mg 1X ONCE PO Last administered on 04/27/18at 17:03; Start 04/27/18 at 16:00; Stop 04/27/18 at 16:01; Status DC Oxycodone/ Acetaminophen (Percocet 5/325) 1 tab PRN Q4HRS PRN PO MODERATE TO SEVERE PAIN Last administered on 05/01/18at 07:53; Start 04/27/18 at 14:15 Warfarin Sodium (Coumadin) 9 mg 1X WARF ONCE PO Last administered on at 17:42; Start 04/28/18 at 16:00; Stop 04/28/18 at 16:01; Status DC Warfarin Sodium (Coumadin) 10 mg 1X WARF ONCE PO Last administered on at 16:31; Start 04/29/18 at 16:00; Stop 04/29/18 at 16:01; Status DC Warfarin Sodium (Coumadin) 10 mg 1X WARF ONCE PO Last administered on at 17:03; Start 04/30/18 at 17:00; Stop 04/30/18 at 17:01; Status DC Diphenhydramine HCl (Benadryl) 25 mg PRN Q6HRS PRN PO ITCHING Last administered on 04/30/18at 21:57; Start 04/30/18 at 21:30 Calcium Carbonate/ Glycine (Tums) 1,000 mg PRN AFTMEALHC PRN PO INDIGESTION; Start 05/01/18 at 08:00 Calcium Carbonate/ Glycine (Tums) 1,000 mg 1X ONCE PO Last administered on at 21:57; Start 04/30/18 at 22:00; Stop 04/30/18 at 22:01; Status DC Ondansetron HCl (Zofran Odt) 4 mg PRN Q8HRS PRN PO NAUSEA/VOMITING Last administered on 04/30/18at 21:58; Start 04/30/18 at 21:30 Pantoprazole Sodium (Protonix) 40 mg 1X ONCE PO Last administered on at 21:58; Start 04/30/18 at 22:00; Stop 04/30/18 at 22:01; Status DC Pantoprazole Sodium (Protonix) 40 mg DAILYAC PO Last administered on at 07:54; Start 05/01/18 at 07:30 Active Scripts Active Catapres (Clonidine Hcl) 0.1 Mg Tablet 0.1 Mg PO PRN Q1HR PRN 14 Days Withdrawal symptoms Reported Proair Hfa Inhaler (Albuterol Sulfate) 8.5 Gm Hfa.aer.ad 1 Puff INH PRN Q4HRS PRN Duoneb 0.5-3(2.5) Mg/3 Ml (Albuterol/Ipratropium) 3 Ml Ampul.neb 3 Ml NEB Q2HR PRN Symbicort 160-4.5 Mcg Inhaler (Budesonide/Formoterol Fumarate) 10.2 Gm Hfa.aer.ad 2 Puff IH BID Prilosec Otc (Omeprazole Magnesium) 20 Mg Tablet. 1 Tab PO DAILY Theophylline (Theophylline Anhydrous) 400 Mg Tablet.er 300 Mg PO BID Vitals/I & O Vital Sign - Last 24 Hours 04/30/18 04/30/18 04/30/18 04/30/18 11:13 14:06 15:00 15:26 Temp 98.3 98.3 Pulse 90 Resp 20 B/P (MAP) 111/75 (87) Pulse Ox 99 O2 Delivery Room Air Room Air Room Air Room Air 04/30/18 04/30/18 04/30/18 04/30/18 18:08 19:00 20:00 21:57 Temp 98.0 98.0 Pulse 96 Resp 18 20 B/P (MAP) 128/94 (105) Pulse Ox 97 O2 Delivery Room Air Room Air Room Air 04/30/18 05/01/18 05/01/18 05/01/18 23:00 03:00 03:21 04:21 Temp 97.7 97.5 97.7 97.5 Pulse 74 83 Resp 18 20 20 20 B/P (MAP) 103/72 (82) 118/84 (95) Pulse Ox 94 94 O2 Delivery Room Air Room Air 05/01/18 05/01/18 05/01/18 05/01/18 06:58 07:00 07:53 08:00 Temp 97.6 97.6 Pulse 80 Resp 18 B/P (MAP) 118/84 (95) Pulse Ox 99 96 O2 Delivery Room Air Room Air Room Air 05/01/18 11:08 O2 Delivery Room Air Intake and Output 04/30/18 04/30/18 05/01/18 15:00 23:00 07:00 Intake Total 720 ml 480 ml 240 ml Balance 720 ml 480 ml 240 ml BIGG NICHOLE MD May 01, 2018 11:11
[2018-05-01] MEDS: LORazepam 1 MG TABLET PO PRN ×3 (11:14→18:58)
[2018-05-01 15:00] VITALS: BP 131/67
[2018-05-01] MEDS ORDERED: WARFARIN 5 MG TABLET. PO ONE (16:00)
--- NOTE | 2018-05-01 17:03 | PDOC ---
PROGRESS NOTES Assessment Assessment Seizure or seizure like episodes, alcohol related. Pancreatitis. Critical illness myopathy.. Right C7 radiculopathy. Cervical disc disease. Cerebral atrophy. CAD. HTN. Recently homicidal ideation. Left LE pain and edema, extensive DVT. RECOMMENDATIONS/PLAN: Continue Keppra for a few months. Treat medical diseases. He has been treated with Coumadin. Alcohol abstinence. OT/PT. Rehab, left LE pain and weak. FU with Dr. Cai in [facility]. FU with PCP. Past Medical History Cardiovascular: CAD, HTN Pulmonary: Asthma, Other ( sleep apnea) CENTRAL NERVOUS SYSTEM: Seizure (Nursing note says that he has had seizures, patient denies) GI: GERD Heme/Onc: Other ( alcoholic pancreatitis) Psych: Anxiety, Addictions, Depression Musculoskeletal: low back pain ( degenerative disc disease) Rheumatologic: Gout Infectious disease: HIV Endocrine: Diabetes ( prediabetes) Past Surgical History No pertinent history Family History CAD Social History Single, mireles, no tobacco or street drugs, drinks alcohol heavily, but not since going home ALLERGY: Reviewed. MEDICATIONS: Refer to [facility] REVIEW OF SYSTEMS: Constitutional: No malnutrition, weight loss, cachexia. Head: No traumatic brain or head injury. Skin: No edema, or rash. Ear: No infection. Eyes: No vision loss, or diplopia. Nose: No bleeding or purulent discharges. Hearing: No hearing decrease. Hearing loss. Neck: No injury. Cardiac: No DC, arrhythmia. Pulmonary: No COPD. GI: No GI Ulcer, GI bleeding. Urinary/genital: No dysuria, incontinence, urinary retention. Endocrine: Over weight.. Skeletomuscular: Weakness.. Neurological: see HP. Psychiatric: Denies drug use/abuse. Otherwise, not [id number] review of systems. PHYSICAL EXAMINATION: General appearance in subacute distress. HEENT: Normocephalic and nontraumatic. Eyes, nose, ears, and throat are unremarkable. Neck is supple. No lymphadenopathy. No Crepitus. Cardiovascular: S1, S2, regular rate and rhythm. Pulmonary: Clear to auscultation bilaterally. Abdomen: Bowel sounds are positive. Abdomen is soft, nontender, and nondistended. Extremities: No rash, lesions. Edema noted in left LE.. No restriction of range of motion NEUROLOGICAL EXAMINATION: Awake. Reactions were slow.but knew time, place and person. PERRL. EOMI but gaze very slow. CN: no focal findings. Muscle tone: within normal. Muscle strength: 4, refused to move left LE due to pain from DVT. DTR: 1+ Plantar reflex: Flexor response bilaterally Gait: not examined in bed. Sensory exam: no acute abnormal findings. No acute cerebellar signs elicited. F-T-N test not accurate. No tremors noted this time. Objective Objective Vital Signs Date Time Temp Pulse Resp B/P (MAP) Pulse Ox O2 Delivery O2 Flow Rate FiO2 05/01/18 16:19 Room Air 05/01/18 15:00 98.5 82 18 131/67 (88) 95 98.5 Intake and Output 05/01/18 07:00 Intake Total 1440 ml Balance 1440 ml Intake Oral 1440 ml # Voids 7 # Bowel Movements 1 Vitals Signs Vitals VS - Last 72 Hours, by Label Date Time Temp Pulse Resp B/P (MAP) Pulse Ox O2 Delivery O2 Flow Rate FiO2 05/01/18 16:19 Room Air 05/01/18 15:00 98.5 82 18 131/67 (88) 95 Room Air 98.5 05/01/18 12:32 Room Air 05/01/18 11:08 Room Air 05/01/18 11:00 97.9 84 18 119/78 (92) 95 Room Air 97.9 05/01/18 08:00 Room Air 05/01/18 07:53 Room Air 05/01/18 07:00 97.6 80 18 118/84 (95) 96 97.6 05/01/18 06:58 99 Room Air 05/01/18 04:21 20 Room Air 05/01/18 03:21 20 Room Air 05/01/18 03:00 97.5 83 20 118/84 (95) 94 97.5 04/30/18 23:00 97.7 74 18 103/72 (82) 94 97.7 04/30/18 21:57 20 Room Air 04/30/18 20:00 Room Air 04/30/18 19:00 98.0 96 18 128/94 (105) 97 98.0 04/30/18 18:08 Room Air 04/30/18 15:26 Room Air 04/30/18 15:00 98.3 90 20 111/75 (87) 99 Room Air 98.3 04/30/18 14:06 Room Air 04/30/18 11:13 Room Air 04/30/18 11:00 97.7 80 20 104/54 (71) 97 Room Air 97.7 04/30/18 08:00 Room Air 04/30/18 07:39 96 Room Air 04/30/18 07:00 97.5 98 20 120/70 (87) 96 Room Air 97.5 Laboratory Laboratory Laboratory Tests Test 05/01/18 03:20 Prothrombin Time 17.6 SEC (11.7-14.0) Prothromb Time International Ratio 1.5 (0.8-1.1) Microbiology 04/24/18 Blood Culture - Final, Complete NO GROWTH AFTER 5 DAYS Medication Medications Current Medications Calcium Carbonate/ Glycine (Tums) 1,000 mg 1X ONCE PO Last administered on 21:57; Start 04/30/18 at 22:00; Stop 04/30/18 at 22:01; Status DC Calcium Carbonate/ Glycine (Tums) 1,000 mg PRN AFTMEALHC PRN PO INDIGESTION; Start 05/01/18 at 08:00 Diphenhydramine HCl (Benadryl) 25 mg PRN Q6HRS PRN PO ITCHING Last administered on 04/30/18at 21:57; Start 04/30/18 at 21:30 Ondansetron HCl (Zofran Odt) 4 mg PRN Q8HRS PRN PO NAUSEA/VOMITING Last administered on 04/30/18at 21:58; Start 04/30/18 at 21:30 Pantoprazole Sodium (Protonix) 40 mg 1X ONCE PO Last administered on at 21:58; Start 04/30/18 at 22:00; Stop 04/30/18 at 22:01; Status DC Pantoprazole Sodium (Protonix) 40 mg DAILYAC PO Last administered on at 07:54; Start 05/01/18 at 07:30 Warfarin Sodium (Coumadin) 10 mg 1X WARF ONCE PO Last administered on at 17:03; Start 04/30/18 at 17:00; Stop 04/30/18 at 17:01; Status DC Warfarin Sodium (Coumadin) 15 mg 1X WARF ONCE PO Last administered on at 16:28; Start 05/01/18 at 16:00; Stop 05/01/18 at 16:01; Status DC Comment Review of Relevant I have reviewed the following items wali (where applicable) has been applied. EFE CRUZ MD May 01, 2018 17:03
[2018-05-01 18:55] VITALS: BP 125/76
[2018-05-01] MEDS: diphenhydrAMINE HCL 25 MG CAPSULE PO PRN (21:05)
[2018-05-01] MEDS: oxyCODONE/APAP 7.5/325 1 TAB TABLET PO PRN (21:06)
[2018-05-01 23:43] VITALS: BP 118/77
[2018-05-02] MEDS: LORazepam 1 MG TABLET PO PRN ×4 (00:18→20:49)
[2018-05-02 03:10] VITALS: BP 112/65
[2018-05-02] MEDS: diphenhydrAMINE HCL 25 MG CAPSULE PO PRN ×2 (03:13→20:50)
[2018-05-02] MEDS: oxyCODONE/APAP 7.5/325 1 TAB TABLET PO PRN ×2 (03:13→20:50)
[2018-05-02 05:02] LABS: PROTHROMBIN TIME PATIENT 22.6 SEC (11.7-14.0)
[2018-05-02 07:00] VITALS: BP 107/67
[2018-05-02] MEDS: IPRATRPIUM/ALBUTEROL 0.5/2.5MG 3 ML NEBU. NEB SCH ×4 (07:35→20:12)
[2018-05-02] MEDS: PANTOPRAZOLE 40 MG TABLET.DR. PO SCH (08:52)
[2018-05-02] MEDS: levETIRAcetam 500 MG TABLET PO SCH ×2 (08:52→20:50)
[2018-05-02] MEDS: MULTIVITAMIN with MINERAL TABLET. PO SCH (08:53)
[2018-05-02] MEDS: FOLIC ACID 1 MG TABLET. PO SCH (08:53)
[2018-05-02 11:00] VITALS: BP 130/87
[2018-05-02] MEDS: ACETAMINOPHEN 325 MG TABLET. PO PRN (11:27)
--- NOTE | 2018-05-02 13:38 | PDOC ---
PROGRESS NOTES Chief Complaint Chief Complaint Postural tremor consistent with essential tremor Left leg DVT Possible seizure episodes, partial-complex. 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 Alcoholism, prior metabolic encephalopathy Substance use disorder myopathy, critical dz related right C7 radiculopathy. no central spinal stenosis plan: fu with neuro, on keppra cont PTOT added percocet for pain control on lovenox bid , talked to sw and mother, pt has no insurance, cont warfarin , check INR daily, goal 2-3. wanted to check CTA to rule out PE. but pt's has no IV access for iv contrast. on vitamins. pt able to walk with a walker with PTOT, slowly better since 3ds ago. i talked to mother and SW a few days ago, regarding the warfarin. at that time, mother was ok that he goes home with warfarin and check INR as needed. today, i told pt that he can dc since able to walk a little bit and INR 2.1. He wants tmr and asked me to call mother Tamara [phone]. i CALLED the mother, notify her that pt can go home today or tmr. However, mother said she WOULD not take him home since his dad is dying. i told her that i would tell the food service supervisor which i did, and fu with PTOT, if pt stable to walk but not go home, then pt will be dced to homeless care home. History of Present Illness History of Present Illness Pt has a chronic history of severe alcohol abuse. He is not tremulous at this time. Neurology notes, per record states to start Keppra for 2-6 months and follow up with neurology in 4-6 weeks. Neurology progress note states pt needs to abstain from alcohol and receive both mental and physical therapy to improve tremor symptoms and weakness. Pt alert and oriented; affect appropriate, pt is complaining of leg pain. His left knee and thigh is TTP DW RN VSS pt has no insurance, alcoholism, father dying at home, i was told before that mother would take him home if he can walk , which is not the case now. left leg DVT, c/o eft leg pain better walks better with PTOT INR2.1 on 05/02 , goal 2-3 Vitals Vitals Vital Signs Date Time Temp Pulse Resp B/P (MAP) Pulse Ox O2 Delivery O2 Flow Rate FiO2 05/02/18 11:32 Room Air 05/02/18 11:00 97.7 93 20 130/87 (101) 99 97.7 05/02/18 08:00 2.0 Physical Exam Physical Exam left leg red, warm, tenderness, swelling. General: Cooperative, No acute distress Heart: Regular rate, Normal S1 Lungs: Clear, Other Abdomen: Normal bowel sounds, Soft Extremities: No clubbing, Normal pulses Skin: No rashes, No breakdown, No significant lesion Labs LABS Laboratory Tests Test 05/02/18 03:35 Prothrombin Time 22.6 SEC (11.7-14.0) Prothromb Time International Ratio 2.1 (0.8-1.1) Comment Review of Relevant I have reviewed the following items wali (where applicable) has been applied. Labs Laboratory Tests Test 05/01/18 03:20 05/02/18 03:35 Prothrombin Time 17.6 SEC (11.7-14.0) 22.6 SEC (11.7-14.0) Prothromb Time International Ratio 1.5 (0.8-1.1) 2.1 (0.8-1.1) Laboratory Tests Test 05/02/18 03:35 Prothrombin Time 22.6 SEC (11.7-14.0) Prothromb Time International Ratio 2.1 (0.8-1.1) Microbiology 04/24/18 Blood Culture - Final, Complete NO GROWTH AFTER 5 DAYS Medications Current Medications Multivitamins 10 ml/Thiamine HCl 100 mg/Folic Acid 1 mg/Sodium Chloride 1,011.2 ml @ 100 mls/ hr DAILY IV Last administered on 04/25/18at 08:54; Start at 09:00; Stop 04/25/18 at 19:07; Status DC Multivitamins (Thera M Plus) 1 tab DAILY PO Last administered on 05/02/18at 08: 53; Start 04/21/18 at 09:00 Folic Acid (Folic Acid) 1 mg DAILY PO Last administered on 05/02/18at 08:53; Start 04/21/18 at 09:00 Thiamine HCl 100 mg/Dextrose 51 ml @ 100 mls/hr DAILY IV Last administered on 04/21/18at 09:08; Start 04/21/18 at 09:00; Stop 04/21/18 at 17:17; Status DC Chlordiazepoxide (Librium) 50 mg PRN Q1HR PRN PO For CIWA 8-14; Start 04/20/18 at 22:15 Chlordiazepoxide (Librium) 100 mg PRN Q1HR PRN PO For CIWA 15 or greater; Start 04/20/18 at 22:15; Stop 04/29/18 at 11:37; Status DC Lorazepam (Ativan) 4 mg PRN Q1HR PRN PO For CIWA 8-14, 2nd CHOICE Last administered on 05/02/18at 11:27; Start 04/20/18 at 22:15 Lorazepam (Ativan) 8 mg PRN Q1HR PRN PO CIWA 15 or greater,2nd CHOICE; Start 04/20/18 at 22:15; Stop 04/29/18 at 11:37; Status DC Lorazepam (Ativan) 2 mg PRN Q1HR PRN IV For CIWA 8-14 Last administered on at 19:55; Start 04/20/18 at 22:15 Lorazepam (Ativan) 4 mg PRN Q1HR PRN IV For CIWA 15 or greater Last administered on 04/22/18at 18:25; Start 04/20/18 at 22:15; Stop 04/29/18 at 11: 37; Status DC Haloperidol Lactate (Haldol Inj) 5 mg PRN Q4HRS PRN IVP Hallucinatns,Confusn, Delirium Last administered on 04/24/18at 13:49; Start 04/20/18 at 22:15 Clonidine HCl (Catapres) 0.1 mg PRN Q1HR PRN PO SBP > 180 or DBP > 100, MRX3; Start 04/20/18 at 22:15 Lorazepam (Ativan) 2 mg PRN Q15MIN PRN IV ANXIETY / AGITATION; Start 04/20/18 at 22:15; Stop 04/22/18 at 14:35; Status DC Lorazepam (Ativan) 4 mg PRN Q15MIN PRN IV ANXIETY / AGITATION; Start 04/20/18 at 22:15; Stop 04/22/18 at 14:35; Status DC Levetiracetam (Keppra) 500 mg BID PO Last administered on 05/02/18at 08:52; Start 04/21/18 at 09:00 Gadobutrol (Gadavist) 10 mmol 1X ONCE IV Last administered on 04/21/18at 14:14 ; Start 04/21/18 at 14:00; Stop 04/21/18 at 14:01; Status DC Albuterol/ Ipratropium (Duoneb) 3 ml RTQID NEB Last administered on 05/02/18at 11:31; Start 04/21/18 at 20:00 Enoxaparin Sodium (Lovenox 40mg Syringe) 40 mg Q24H SQ Last administered on 06/30at 12:51; Start 04/24/18 at 12:00; Stop 04/24/18 at 14:57; Status DC Enoxaparin Sodium (Lovenox Per Pharmacy Treatment Dosing) 1 each PRN DAILY PRN MC SEE COMMENTS; Start 04/24/18 at 15:00; Status UNV Enoxaparin Sodium (Lovenox 60mg Syringe) 60 mg 1X ONCE SQ Last administered on 04/24/18at 15:25; Start 04/24/18 at 15:00; Stop 04/24/18 at 15:01; Status DC Enoxaparin Sodium (Lovenox 100mg Syringe) 90 mg Q12HR SQ Last administered on 04/25/18at 08:55; Start 04/24/18 at 23:00; Stop 04/25/18 at 18:47; Status DC Acetaminophen (Tylenol) 650 mg PRN Q6HRS PRN PO MILD PAIN / TEMP Last administered on 05/02/18at 11:27; Start 04/24/18 at 20:00 Enoxaparin Sodium (Lovenox 100mg Syringe) 90 mg Q12HR SQ Last administered on 05/02/18at 08:53; Start 04/26/18 at 09:00; Stop 05/02/18 at 12:17; Status DC Acetaminophen/ Hydrocodone Bitart (Lortab 5/325) 1 tab PRN Q4HRS PRN PO MOD TO SEVERE PAIN Last administered on 04/27/18at 10:08; Start 04/26/18 at 16:30; Stop 04/27/18 at 11:32; Status DC Acetaminophen/ Hydrocodone Bitart (Lortab 10/325) 1 tab PRN Q6HRS PRN PO MODERATE-SEVERE PAIN; Start 04/27/18 at 11:45; Stop 04/27/18 at 14:02; Status DC Warfarin Sodium (Coumadin Per Pharmacy) 1 each PRN DAILY PRN MC SEE COMMENTS Last administered on 05/02/18at 11:43; Start 04/27/18 at 11:45 Warfarin Sodium (Coumadin) 7.5 mg 1X ONCE PO Last administered on 04/27/18at 17:03; Start 04/27/18 at 16:00; Stop 04/27/18 at 16:01; Status DC Oxycodone/ Acetaminophen (Percocet 5/325) 1 tab PRN Q4HRS PRN PO MODERATE TO SEVERE PAIN Last administered on 05/01/18at 17:45; Start 04/27/18 at 14:15; Stop 05/01/18 at 18:04; Status DC Warfarin Sodium (Coumadin) 9 mg 1X WARF ONCE PO Last administered on at 17:42; Start 04/28/18 at 16:00; Stop 04/28/18 at 16:01; Status DC Warfarin Sodium (Coumadin) 10 mg 1X WARF ONCE PO Last administered on at 16:31; Start 04/29/18 at 16:00; Stop 04/29/18 at 16:01; Status DC Warfarin Sodium (Coumadin) 10 mg 1X WARF ONCE PO Last administered on at 17:03; Start 04/30/18 at 17:00; Stop 04/30/18 at 17:01; Status DC Diphenhydramine HCl (Benadryl) 25 mg PRN Q6HRS PRN PO ITCHING Last administered on 05/02/18at 03:13; Start 04/30/18 at 21:30 Calcium Carbonate/ Glycine (Tums) 1,000 mg PRN AFTMEALHC PRN PO INDIGESTION; Start 05/01/18 at 08:00 Calcium Carbonate/ Glycine (Tums) 1,000 mg 1X ONCE PO Last administered on at 21:57; Start 04/30/18 at 22:00; Stop 04/30/18 at 22:01; Status DC Ondansetron HCl (Zofran Odt) 4 mg PRN Q8HRS PRN PO NAUSEA/VOMITING Last administered on 04/30/18at 21:58; Start 04/30/18 at 21:30 Pantoprazole Sodium (Protonix) 40 mg 1X ONCE PO Last administered on at 21:58; Start 04/30/18 at 22:00; Stop 04/30/18 at 22:01; Status DC Pantoprazole Sodium (Protonix) 40 mg DAILYAC PO Last administered on at 08:52; Start 05/01/18 at 07:30 Warfarin Sodium (Coumadin) 15 mg 1X WARF ONCE PO Last administered on at 16:28; Start 05/01/18 at 16:00; Stop 05/01/18 at 16:01; Status DC Oxycodone/ Acetaminophen (Percocet 7.5/ 325) 1 tab PRN Q4HRS PRN PO PAIN Last administered on 05/02/18at 03:13; Start 05/01/18 at 18:15 Warfarin Sodium (Coumadin) 10 mg 1X WARF ONCE PO ; Start 05/02/18 at 16:00; Stop 05/02/18 at 16:01 Active Scripts Active Catapres (Clonidine Hcl) 0.1 Mg Tablet 0.1 Mg PO PRN Q1HR PRN 14 Days Withdrawal symptoms Reported Proair Hfa Inhaler (Albuterol Sulfate) 8.5 Gm Hfa.aer.ad 1 Puff INH PRN Q4HRS PRN Duoneb 0.5-3(2.5) Mg/3 Ml (Albuterol/Ipratropium) 3 Ml Ampul.neb 3 Ml NEB Q2HR PRN Symbicort 160-4.5 Mcg Inhaler (Budesonide/Formoterol Fumarate) 10.2 Gm Hfa.aer.ad 2 Puff IH BID Prilosec Otc (Omeprazole Magnesium) 20 Mg Tablet.dr 1 Tab PO DAILY Theophylline (Theophylline Anhydrous) 400 Mg Tablet.er 300 Mg PO BID Vitals/I & O Vital Sign - Last 24 Hours 05/01/18 05/01/18 05/01/18 05/01/18 15:00 16:19 17:45 18:55 Temp 98.5 97.6 98.5 97.6 Pulse 82 96 Resp 18 17 B/P (MAP) 131/67 (88) 125/76 (92) Pulse Ox 95 96 O2 Delivery Room Air Room Air Room Air Room Air 05/01/18 05/01/18 05/01/18 05/01/18 19:06 20:10 21:06 22:06 Resp 20 20 O2 Delivery Room Air Room Air Room Air Room Air O2 Flow Rate 2.0 05/01/18 05/02/18 05/02/18 05/02/18 23:43 03:10 03:13 07:00 Temp 98.0 98.1 97.6 98.0 98.1 97.6 Pulse 88 78 71 Resp 18 19 20 20 B/P (MAP) 118/77 (91) 112/65 (81) 107/67 (80) Pulse Ox 97 96 98 O2 Delivery Room Air Room Air Room Air Room Air 05/02/18 05/02/18 05/02/18 05/02/18 07:36 08:00 11:00 11:32 Temp 97.7 97.7 Pulse 93 Resp 20 B/P (MAP) 130/87 (101) Pulse Ox 99 O2 Delivery Room Air Room Air Room Air Room Air O2 Flow Rate 2.0 Intake and Output 05/01/18 05/01/18 05/02/18 15:00 23:00 07:00 Intake Total 350 ml 100 ml Balance 350 ml 100 ml BIGG NICHOLE MD May 02, 2018 13:38
[2018-05-02 15:00] VITALS: BP 118/76
[2018-05-02] MEDS ORDERED: WARFARIN 5 MG TABLET. PO ONE (16:00)
[2018-05-02 19:59] VITALS: BP 116/81
[2018-05-02 23:25] VITALS: BP 113/76
[2018-05-03 03:02] VITALS: BP 111/61
[2018-05-03 05:05] LABS: BASO # 0.1 x10^3/uL (0.0-0.2); BASO % 1 % (0-3); EOS # 0.4 x10^3/uL (0.0-0.7); EOS % 7 % (0-3); HEMATOCRIT 29.6 % (39.0-53.0); HEMOGLOBIN 9.7 g/dL (13.0-17.5); LYMPH # 1.8 x10^3/uL (1.0-4.8); LYMPH % 32 % (24-48); MEAN CORPUSCULAR HEMOGLOBIN 26 pg (25-35); MEAN CORPUSCULAR HGB CONC 33 g/dL (31-37); MEAN CORPUSCULAR VOLUME 78 fL (79-100); MONO # 0.4 x10^3/uL (0.0-1.1); MONO % 8 % (0-9); NEUT # 2.9 x10^3uL (1.8-7.7); NEUT % 52 % (31-73); PLATELET COUNT 265 x10^3/uL (140-400); RED BLOOD COUNT 3.78 x10^6/uL (4.30-5.70); RED CELL DISTRIBUTION WIDTH 19.3 % (11.5-14.5); WHITE BLOOD COUNT 5.6 x10^3/uL (4.0-11.0)
[2018-05-03 05:14] LABS: PROTHROMBIN TIME PATIENT 21.6 SEC (11.7-14.0)
[2018-05-03 05:21] LABS: CALCIUM 10.1 mg/dL (8.5-10.1); CREATININE 0.8 mg/dL (0.7-1.3); GFR 106.5; POTASSIUM 4.2 mmol/L (3.5-5.1)
[2018-05-03 07:00] VITALS: BP 117/87
[2018-05-03] MEDS: MULTIVITAMIN with MINERAL TABLET. PO SCH (08:05)
[2018-05-03] MEDS: levETIRAcetam 500 MG TABLET PO SCH ×2 (08:05→20:53)
[2018-05-03] MEDS: PANTOPRAZOLE 40 MG TABLET.DR. PO SCH (08:05)
[2018-05-03] MEDS: FOLIC ACID 1 MG TABLET. PO SCH (08:05)
[2018-05-03] MEDS: IPRATRPIUM/ALBUTEROL 0.5/2.5MG 3 ML NEBU. NEB SCH ×4 (08:26→19:59)
[2018-05-03] MEDS: oxyCODONE/APAP 7.5/325 1 TAB TABLET PO PRN ×3 (09:43→20:53)
[2018-05-03 11:00] VITALS: BP 118/87
--- NOTE | 2018-05-03 12:37 | PDOC ---
PROGRESS NOTES Chief Complaint Chief Complaint Postural tremor consistent with essential tremor Left leg DVT Possible seizure episodes, partial-complex. 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 Alcoholism, prior metabolic encephalopathy Substance use disorder myopathy, critical dz related right C7 radiculopathy. no central spinal stenosis plan: fu with neuro, on keppra cont PTOT added percocet for pain control on lovenox bid , talked to sw and mother, pt has no insurance, cont warfarin , check INR daily, goal 2-3. wanted to check CTA to rule out PE. but pt's has no IV access for iv contrast. on vitamins. pt able to walk with a walker with PTOT, slowly better since 3ds ago. i talked to mother and SW a few days ago, regarding the warfarin. at that time, mother was ok that he goes home with warfarin and check INR as needed. on Sat, i told pt that he can dc since able to walk a little bit and INR 2.1. He wants tmr and asked me to call mother Tamara [phone]. i CALLED the mother, notified her that pt can go home today or tmr. However, mother said she WOULD NOT take him home since his dad is dying. i told her that i would tell the mine engineering supervisor which i did, and fu with PTOT, if pt stable to walk but not go home, then pt will be dced to [facility]. PT should be dc tmr. to home or [facility]. History of Present Illness History of Present Illness Pt has a chronic history of severe alcohol abuse. He is not tremulous at this time. Neurology notes, per record states to start Keppra for 2-6 months and follow up with neurology in 4-6 weeks. Neurology progress note states pt needs to abstain from alcohol and receive both mental and physical therapy to improve tremor symptoms and weakness. Pt alert and oriented; affect appropriate, pt is complaining of leg pain. His left knee and thigh is TTP DW RN VSS pt has no insurance, alcoholism, father dying at home, i was told before that mother would take him home if he can walk , which is not the case now. left leg DVT, c/o eft leg pain better walks better with PTOT INR2.1 on 05/02 , goal 2-3 Vitals Vitals Vital Signs Date Time Temp Pulse Resp B/P (MAP) Pulse Ox O2 Delivery O2 Flow Rate FiO2 10/21/18 11:23 97 Room Air 05/03/18 11:00 97.7 84 20 118/87 (97) 97.7 05/03/18 09:43 2.0 Physical Exam Physical Exam left leg red, warm, tenderness, swelling. General: Cooperative, No acute distress Heart: Regular rate, Normal S1 Lungs: Clear, Other Abdomen: Normal bowel sounds, Soft Extremities: No clubbing, Normal pulses Skin: No rashes, No breakdown, No significant lesion Labs LABS Laboratory Tests Test 05/03/18 04:10 White Blood Count 5.6 x10^3/uL (4.0-11.0) Red Blood Count 3.78 x10^6/uL (4.30-5.70) Hemoglobin 9.7 g/dL (13.0-17.5) Hematocrit 29.6 % (39.0-53.0) Mean Corpuscular Volume 78 fL (79-100) Mean Corpuscular Hemoglobin 26 pg (25-35) Mean Corpuscular Hemoglobin Concent 33 g/dL (31-37) Red Cell Distribution Width 19.3 % (11.5-14.5) Platelet Count 265 x10^3/uL (140-400) Neutrophils (%) (Auto) 52 % (31-73) Lymphocytes (%) (Auto) 32 % (24-48) Monocytes (%) (Auto) 8 % (0-9) Eosinophils (%) (Auto) 7 % (0-3) Basophils (%) (Auto) 1 % (0-3) Neutrophils # (Auto) 2.9 x10^3uL (1.8-7.7) Lymphocytes # (Auto) 1.8 x10^3/uL (1.0-4.8) Monocytes # (Auto) 0.4 x10^3/uL (0.0-1.1) Eosinophils # (Auto) 0.4 x10^3/uL (0.0-0.7) Basophils # (Auto) 0.1 x10^3/uL (0.0-0.2) Prothrombin Time 21.6 SEC (11.7-14.0) Prothromb Time International Ratio 2.0 (0.8-1.1) Sodium Level 138 mmol/L (136-145) Potassium Level 4.2 mmol/L (3.5-5.1) Chloride Level 100 mmol/L (98-107) Carbon Dioxide Level 28 mmol/L (21-32) Anion Gap 10 (6-14) Blood Urea Nitrogen 18 mg/dL (8-26) Creatinine 0.8 mg/dL (0.7-1.3) Estimated GFR (Cockcroft-Gault) 106.5 Glucose Level 100 mg/dL (70-99) Calcium Level 10.1 mg/dL (8.5-10.1) Comment Review of Relevant I have reviewed the following items wali (where applicable) has been applied. Labs Laboratory Tests Test 05/02/18 03:35 05/03/18 04:10 Prothrombin Time 22.6 SEC (11.7-14.0) 21.6 SEC (11.7-14.0) Prothromb Time International Ratio 2.1 (0.8-1.1) 2.0 (0.8-1.1) White Blood Count 5.6 x10^3/uL (4.0-11.0) Red Blood Count 3.78 x10^6/uL (4.30-5.70) Hemoglobin 9.7 g/dL (13.0-17.5) Hematocrit 29.6 % (39.0-53.0) Mean Corpuscular Volume 78 fL (79-100) Mean Corpuscular Hemoglobin 26 pg (25-35) Mean Corpuscular Hemoglobin Concent 33 g/dL (31-37) Red Cell Distribution Width 19.3 % (11.5-14.5) Platelet Count 265 x10^3/uL (140-400) Neutrophils (%) (Auto) 52 % (31-73) Lymphocytes (%) (Auto) 32 % (24-48) Monocytes (%) (Auto) 8 % (0-9) Eosinophils (%) (Auto) 7 % (0-3) Basophils (%) (Auto) 1 % (0-3) Neutrophils # (Auto) 2.9 x10^3uL (1.8-7.7) Lymphocytes # (Auto) 1.8 x10^3/uL (1.0-4.8) Monocytes # (Auto) 0.4 x10^3/uL (0.0-1.1) Eosinophils # (Auto) 0.4 x10^3/uL (0.0-0.7) Basophils # (Auto) 0.1 x10^3/uL (0.0-0.2) Sodium Level 138 mmol/L (136-145) Potassium Level 4.2 mmol/L (3.5-5.1) Chloride Level 100 mmol/L (98-107) Carbon Dioxide Level 28 mmol/L (21-32) Anion Gap 10 (6-14) Blood Urea Nitrogen 18 mg/dL (8-26) Creatinine 0.8 mg/dL (0.7-1.3) Estimated GFR (Cockcroft-Gault) 106.5 Glucose Level 100 mg/dL (70-99) Calcium Level 10.1 mg/dL (8.5-10.1) Laboratory Tests Test 05/03/18 04:10 White Blood Count 5.6 x10^3/uL (4.0-11.0) Red Blood Count 3.78 x10^6/uL (4.30-5.70) Hemoglobin 9.7 g/dL (13.0-17.5) Hematocrit 29.6 % (39.0-53.0) Mean Corpuscular Volume 78 fL (79-100) Mean Corpuscular Hemoglobin 26 pg (25-35) Mean Corpuscular Hemoglobin Concent 33 g/dL (31-37) Red Cell Distribution Width 19.3 % (11.5-14.5) Platelet Count 265 x10^3/uL (140-400) Neutrophils (%) (Auto) 52 % (31-73) Lymphocytes (%) (Auto) 32 % (24-48) Monocytes (%) (Auto) 8 % (0-9) Eosinophils (%) (Auto) 7 % (0-3) Basophils (%) (Auto) 1 % (0-3) Neutrophils # (Auto) 2.9 x10^3uL (1.8-7.7) Lymphocytes # (Auto) 1.8 x10^3/uL (1.0-4.8) Monocytes # (Auto) 0.4 x10^3/uL (0.0-1.1) Eosinophils # (Auto) 0.4 x10^3/uL (0.0-0.7) Basophils # (Auto) 0.1 x10^3/uL (0.0-0.2) Prothrombin Time 21.6 SEC (11.7-14.0) Prothromb Time International Ratio 2.0 (0.8-1.1) Sodium Level 138 mmol/L (136-145) Potassium Level 4.2 mmol/L (3.5-5.1) Chloride Level 100 mmol/L (98-107) Carbon Dioxide Level 28 mmol/L (21-32) Anion Gap 10 (6-14) Blood Urea Nitrogen 18 mg/dL (8-26) Creatinine 0.8 mg/dL (0.7-1.3) Estimated GFR (Cockcroft-Gault) 106.5 Glucose Level 100 mg/dL (70-99) Calcium Level 10.1 mg/dL (8.5-10.1) Microbiology 04/24/18 Blood Culture - Final, Complete NO GROWTH AFTER 5 DAYS Medications Current Medications Multivitamins 10 ml/Thiamine HCl 100 mg/Folic Acid 1 mg/Sodium Chloride 1,011.2 ml @ 100 mls/ hr DAILY IV Last administered on 04/25/18at 08:54; Start at 09:00; Stop 04/25/18 at 19:07; Status DC Multivitamins (Thera M Plus) 1 tab DAILY PO Last administered on 05/03/18at 08: 05; Start 04/21/18 at 09:00 Folic Acid (Folic Acid) 1 mg DAILY PO Last administered on 05/03/18at 08:05; Start 04/21/18 at 09:00 Thiamine HCl 100 mg/Dextrose 51 ml @ 100 mls/hr DAILY IV Last administered on 04/21/18at 09:08; Start 04/21/18 at 09:00; Stop 04/21/18 at 17:17; Status DC Chlordiazepoxide (Librium) 50 mg PRN Q1HR PRN PO For CIWA 8-14; Start 04/20/18 at 22:15 Chlordiazepoxide (Librium) 100 mg PRN Q1HR PRN PO For CIWA 15 or greater; Start 04/20/18 at 22:15; Stop 04/29/18 at 11:37; Status DC Lorazepam (Ativan) 4 mg PRN Q1HR PRN PO For CIWA 8-14, 2nd CHOICE Last administered on 05/02/18at 20:49; Start 04/20/18 at 22:15 Lorazepam (Ativan) 8 mg PRN Q1HR PRN PO CIWA 15 or greater,2nd CHOICE; Start 04/20/18 at 22:15; Stop 04/29/18 at 11:37; Status DC Lorazepam (Ativan) 2 mg PRN Q1HR PRN IV For CIWA 8-14 Last administered on at 19:55; Start 04/20/18 at 22:15 Lorazepam (Ativan) 4 mg PRN Q1HR PRN IV For CIWA 15 or greater Last administered on 04/22/18at 18:25; Start 04/20/18 at 22:15; Stop 04/29/18 at 11: 37; Status DC Haloperidol Lactate (Haldol Inj) 5 mg PRN Q4HRS PRN IVP Hallucinatns,Confusn, Delirium Last administered on 04/24/18at 13:49; Start 04/20/18 at 22:15 Clonidine HCl (Catapres) 0.1 mg PRN Q1HR PRN PO SBP > 180 or DBP > 100, MRX3; Start 04/20/18 at 22:15 Lorazepam (Ativan) 2 mg PRN Q15MIN PRN IV ANXIETY / AGITATION; Start 04/20/18 at 22:15; Stop 04/22/18 at 14:35; Status DC Lorazepam (Ativan) 4 mg PRN Q15MIN PRN IV ANXIETY / AGITATION; Start 04/20/18 at 22:15; Stop 04/22/18 at 14:35; Status DC Levetiracetam (Keppra) 500 mg BID PO Last administered on 05/03/18at 08:05; Start 04/21/18 at 09:00 Gadobutrol (Gadavist) 10 mmol 1X ONCE IV Last administered on 04/21/18at 14:14 ; Start 04/21/18 at 14:00; Stop 04/21/18 at 14:01; Status DC Albuterol/ Ipratropium (Duoneb) 3 ml RTQID NEB Last administered on 05/03/18at 11:22; Start 04/21/18 at 20:00 Enoxaparin Sodium (Lovenox 40mg Syringe) 40 mg Q24H SQ Last administered on 06/30at 12:51; Start 04/24/18 at 12:00; Stop 04/24/18 at 14:57; Status DC Enoxaparin Sodium (Lovenox Per Pharmacy Treatment Dosing) 1 each PRN DAILY PRN MC SEE COMMENTS; Start 04/24/18 at 15:00; Status UNV Enoxaparin Sodium (Lovenox 60mg Syringe) 60 mg 1X ONCE SQ Last administered on 04/24/18at 15:25; Start 04/24/18 at 15:00; Stop 04/24/18 at 15:01; Status DC Enoxaparin Sodium (Lovenox 100mg Syringe) 90 mg Q12HR SQ Last administered on 04/25/18at 08:55; Start 04/24/18 at 23:00; Stop 04/25/18 at 18:47; Status DC Acetaminophen (Tylenol) 650 mg PRN Q6HRS PRN PO MILD PAIN / TEMP Last administered on 05/02/18at 11:27; Start 04/24/18 at 20:00 Enoxaparin Sodium (Lovenox 100mg Syringe) 90 mg Q12HR SQ Last administered on 05/02/18at 08:53; Start 04/26/18 at 09:00; Stop 05/02/18 at 12:17; Status DC Acetaminophen/ Hydrocodone Bitart (Lortab 5/325) 1 tab PRN Q4HRS PRN PO MOD TO SEVERE PAIN Last administered on 04/27/18at 10:08; Start 04/26/18 at 16:30; Stop 04/27/18 at 11:32; Status DC Acetaminophen/ Hydrocodone Bitart (Lortab 10/325) 1 tab PRN Q6HRS PRN PO MODERATE-SEVERE PAIN; Start 04/27/18 at 11:45; Stop 04/27/18 at 14:02; Status DC Warfarin Sodium (Coumadin Per Pharmacy) 1 each PRN DAILY PRN MC SEE COMMENTS Last administered on 05/03/18at 12:25; Start 04/27/18 at 11:45 Warfarin Sodium (Coumadin) 7.5 mg 1X ONCE PO Last administered on 04/27/18at 17:03; Start 04/27/18 at 16:00; Stop 04/27/18 at 16:01; Status DC Oxycodone/ Acetaminophen (Percocet 5/325) 1 tab PRN Q4HRS PRN PO MODERATE TO SEVERE PAIN Last administered on 05/01/18 17:45; Start 04/27/18 at 14:15; Stop 05/01/18 at 18:04; Status DC Warfarin Sodium (Coumadin) 9 mg 1X WARF ONCE PO Last administered on at 17:42; Start 04/28/18 at 16:00; Stop 04/28/18 at 16:01; Status DC Warfarin Sodium (Coumadin) 10 mg 1X WARF ONCE PO Last administered on at 16:31; Start 04/29/18 at 16:00; Stop 04/29/18 at 16:01; Status DC Warfarin Sodium (Coumadin) 10 mg 1X WARF ONCE PO Last administered on at 17:03; Start 04/30/18 at 17:00; Stop 04/30/18 at 17:01; Status DC Diphenhydramine HCl (Benadryl) 25 mg PRN Q6HRS PRN PO ITCHING Last administered on 05/02/18at 20:50; Start 04/30/18 at 21:30 Calcium Carbonate/ Glycine (Tums) 1,000 mg PRN AFTMEALHC PRN PO INDIGESTION; Start 05/01/18 at 08:00 Calcium Carbonate/ Glycine (Tums) 1,000 mg 1X ONCE PO Last administered on at 21:57; Start 04/30/18 at 22:00; Stop 04/30/18 at 22:01; Status DC Ondansetron HCl (Zofran Odt) 4 mg PRN Q8HRS PRN PO NAUSEA/VOMITING Last administered on 04/30/18at 21:58; Start 04/30/18 at 21:30 Pantoprazole Sodium (Protonix) 40 mg 1X ONCE PO Last administered on 21:58; Start 04/30/18 at 22:00; Stop 04/30/18 at 22:01; Status DC Pantoprazole Sodium (Protonix) 40 mg DAILYAC PO Last administered on at 08:05; Start 05/01/18 at 07:30 Warfarin Sodium (Coumadin) 15 mg 1X WARF ONCE PO Last administered on at 16:28; Start 05/01/18 at 16:00; Stop 05/01/18 at 16:01; Status DC Oxycodone/ Acetaminophen (Percocet 7.5/ 325) 1 tab PRN Q4HRS PRN PO PAIN Last administered on 05/03/18at 09:43; Start 05/01/18 at 18:15 Warfarin Sodium (Coumadin) 10 mg 1X WARF ONCE PO Last administered on at 16:41; Start 05/02/18 at 16:00; Stop 05/02/18 at 16:01; Status DC Warfarin Sodium (Coumadin) 12 mg 1X WARF ONCE PO ; Start 05/03/18 at 16:00; Stop 05/03/18 at 16:01 Active Scripts Active Catapres (Clonidine Hcl) 0.1 Mg Tablet 0.1 Mg PO PRN Q1HR PRN 14 Days Withdrawal symptoms Reported Proair Hfa Inhaler (Albuterol Sulfate) 8.5 Gm Hfa.aer.ad 1 Puff INH PRN Q4HRS PRN Duoneb 0.5-3(2.5) Mg/3 Ml (Albuterol/Ipratropium) 3 Ml Ampul.neb 3 Ml NEB Q2HR PRN Symbicort 160-4.5 Mcg Inhaler (Budesonide/Formoterol Fumarate) 10.2 Gm Hfa.aer.ad 2 Puff IH BID Prilosec Otc (Omeprazole Magnesium) 20 Mg Tablet.dr 1 Tab PO DAILY Theophylline (Theophylline Anhydrous) 400 Mg Tablet.er 300 Mg PO BID Vitals/I & O Vital Sign - Last 24 Hours 05/02/18 05/02/18 05/02/18 05/02/18 15:00 15:16 19:59 20:00 Temp 97.9 97.7 97.9 97.7 Pulse 84 93 Resp 20 17 B/P (MAP) 118/76 (90) 116/81 (93) Pulse Ox 99 97 O2 Delivery Room Air Room Air Room Air Room Air 05/02/18 05/02/18 05/02/18 05/03/18 20:12 20:50 23:25 03:02 Temp 97.5 98.7 97.5 98.7 Pulse 78 68 Resp 18 18 B/P (MAP) 113/76 (88) 111/61 (78) Pulse Ox 97 97 97 97 O2 Delivery Room Air Room Air Room Air Room Air 05/03/18 05/03/18 05/03/18 05/03/18 07:00 08:00 09:43 10:45 Temp 97.6 97.6 Pulse 89 Resp 20 18 18 B/P (MAP) 117/87 (97) Pulse Ox 96 96 97 O2 Delivery Room Air Room Air Room Air Room Air O2 Flow Rate 2.0 2.0 05/03/18 05/03/18 11:00 11:23 Temp 97.7 97.7 Pulse 84 Resp 20 B/P (MAP) 118/87 (97) Pulse Ox 97 97 O2 Delivery Room Air Room Air Intake and Output 05/02/18 05/02/18 05/03/18 15:00 23:00 07:00 Intake Total 600 ml 1300 ml 0 ml Output Total 0 ml Balance 600 ml 1300 ml 0 ml BIGG NICHOLE MD May 03, 2018 12:37
[2018-05-03 15:00] VITALS: BP 119/83
[2018-05-03] MEDS ORDERED: WARFARIN 6 MG TABLET. PO ONE (16:00)
[2018-05-03 19:00] VITALS: BP 121/91
[2018-05-03] MEDS: diphenhydrAMINE HCL 25 MG CAPSULE PO PRN (20:53)
[2018-05-03] MEDS: LORazepam 1 MG TABLET PO PRN (20:53)
[2018-05-03 23:00] VITALS: BP 117/61
[2018-05-04 03:00] VITALS: BP 113/68
[2018-05-04 07:00] VITALS: BP 118/79
[2018-05-04] MEDS: IPRATRPIUM/ALBUTEROL 0.5/2.5MG 3 ML NEBU. NEB SCH ×2 (07:20→11:59)
[2018-05-04] MEDS: levETIRAcetam 500 MG TABLET PO SCH (08:26)
[2018-05-04] MEDS: PANTOPRAZOLE 40 MG TABLET.DR. PO SCH (08:27)
[2018-05-04] MEDS: FOLIC ACID 1 MG TABLET. PO SCH (08:28)
[2018-05-04] MEDS: MULTIVITAMIN with MINERAL TABLET. PO SCH (08:28)
[2018-05-04] MEDS: oxyCODONE/APAP 7.5/325 1 TAB TABLET PO PRN (08:28)
[2018-05-04] MEDS: LORazepam 1 MG TABLET PO PRN (08:32)
[2018-05-04] MEDS ORDERED: LEVE500T56 PO (10:24)
[2018-05-04] MEDS ORDERED: WARF-31 PO (10:24)
--- NOTE | 2018-05-04 10:30 | PDOC3 ---
Discharge Summary Visit Information Date of Admission: Apr 20, 2018 Date of Discharge: May 04, 2018 Admitting Diagnosis Comment: Postural tremor consistent with essential tremor Left leg DVT Possible seizure episodes, partial-complex. 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 Alcoholism, prior metabolic encephalopathy Substance use disorder myopathy, critical dz related right C7 radiculopathy. no central spinal stenosis Brief Hospital Course Allergies Allergies Coded Allergies Type Severity Reaction Last Updated Verified No Known Drug Allergies 04/30/16 No Vital Signs Vital Signs Date Time Temp Pulse Resp B/P (MAP) Pulse Ox O2 Delivery O2 Flow Rate FiO2 05/04/18 08:28 Room Air 05/04/18 07:22 99 05/04/18 07:00 97.6 87 18 118/79 (92) 97.6 05/03/18 09:43 2.0 Lab Results Laboratory Tests Test 05/03/18 04:10 05/04/18 05:00 White Blood Count 5.6 x10^3/uL (4.0-11.0) Red Blood Count 3.78 x10^6/uL (4.30-5.70) Hemoglobin 9.7 g/dL (13.0-17.5) Hematocrit 29.6 % (39.0-53.0) Mean Corpuscular Volume 78 fL (79-100) Mean Corpuscular Hemoglobin 26 pg (25-35) Mean Corpuscular Hemoglobin Concent 33 g/dL (31-37) Red Cell Distribution Width 19.3 % (11.5-14.5) Platelet Count 265 x10^3/uL (140-400) Neutrophils (%) (Auto) 52 % (31-73) Lymphocytes (%) (Auto) 32 % (24-48) Monocytes (%) (Auto) 8 % (0-9) Eosinophils (%) (Auto) 7 % (0-3) Basophils (%) (Auto) 1 % (0-3) Neutrophils # (Auto) 2.9 x10^3uL (1.8-7.7) Lymphocytes # (Auto) 1.8 x10^3/uL (1.0-4.8) Monocytes # (Auto) 0.4 x10^3/uL (0.0-1.1) Eosinophils # (Auto) 0.4 x10^3/uL (0.0-0.7) Basophils # (Auto) 0.1 x10^3/uL (0.0-0.2) Prothrombin Time 21.6 SEC (11.7-14.0) 22.0 SEC (11.7-14.0) Prothromb Time International Ratio 2.0 (0.8-1.1) 2.0 (0.8-1.1) Sodium Level 138 mmol/L (136-145) Potassium Level 4.2 mmol/L (3.5-5.1) Chloride Level 100 mmol/L (98-107) Carbon Dioxide Level 28 mmol/L (21-32) Anion Gap 10 (6-14) Blood Urea Nitrogen 18 mg/dL (8-26) Creatinine 0.8 mg/dL (0.7-1.3) Estimated GFR (Cockcroft-Gault) 106.5 Glucose Level 100 mg/dL (70-99) Calcium Level 10.1 mg/dL (8.5-10.1) Laboratory Tests Test 05/04/18 05:00 Prothrombin Time 22.0 SEC (11.7-14.0) Prothromb Time International Ratio 2.0 (0.8-1.1) Brief Hospital Course Mr. Osborn is a 43 old male who lives either home alone with a mother although mother seems to be apprehensive to came back, but not interested homeless halfway, admitted because of seizures versus essential tremors. Thoughts of partial complex seizure. Started on Keppra 500 twice a day, on board. Course remarkable for some encephalopathy - does have history of alcohol abuse. Some C7 myelopathy. And also left leg DVT. Started on warfarin, able to afford warfarin. INR on discharge is 2.0. I have Rx'd warfarin 5 mg daily advised 3 months left leg DVT, seems either provoked from prolonged hospitalization. Stayed about 2 weeks with us. Have Rx and Pro Air and Symbicort started by colleague bec course remarkable for some respiratory issues. Maybe even a smoker prior to admission? Also Rx'd some Keppra 500 twice a day as was started here. Patient seen and examined, discussed with social work, patient, and RN. Rx on chart. DC time 31 mins. 50% DC education counseling and coordination Discharge Information Condition at Discharge: Improved, Stable Disposition/Orders: D/C to Home Scheduled Budesonide/Formoterol Fumarate (Symbicort 160-4.5 Mcg Inhaler) 10.2 Gm Hfa.aer.ad, 2 PUFF IH BID, #10.6 Ref 3 (Reported) Entered as Reported by: RIKA RIVERA on 08/13/16 2327 Levetiracetam (Keppra) 500 Mg Tablet, 1 TAB PO BID, #180 Ref 3 Prescribed by: JAMES HURST on 05/04/18 1024 Omeprazole Magnesium (Prilosec Otc) 20 Mg Tablet.dr, 1 TAB PO DAILY, #30 Ref 3 ( Reported) Entered as Reported by: FELICIANO KNOX on 04/30/16 1848 Theophylline Anhydrous (Theophylline) 400 Mg Tablet.er, 300 MG PO BID, (Reported ) Entered as Reported by: ALBERTINA MURILLO on 08/20/13 2035 Warfarin Sodium (Warfarin Sodium) 5 Mg Tablet, 1 TAB PO DAILY, #90 Ref 1 Prescribed by: JAMES HURST on 05/04/18 1024 Scheduled PRN Albuterol Sulfate (Proair Hfa Inhaler) 8.5 Gm Hfa.aer.ad, 1 PUFF INH PRN Q4HRS PRN for SHORTNESS OF BREATH, Ref 0 (Reported) Entered as Reported by: FIONA CATHERINE on 03/02/182058 Clonidine Hcl (Catapres) 0.1 Mg Tablet, 0.1 MG PO PRN Q1HR PRN for SBP > 180 or DBP > 100, MRX3 for 14 Days, #28 Withdrawal symptoms Prescribed by: RYAN HERNÁNDEZ MD on 04/18/18 1123 Ipratropium/Albuterol Sulfate (Duoneb 0.5-3(2.5) Mg/3 Ml) 3 Ml Ampul.neb, 3 ML NEB Q2HR PRN for SHORTNESS OF BREATH, (Reported) Entered as Reported by: FIONA CATHERINE on 03/02/182058 JAMES HURST MD May 04, 2018 10:30
[2018-05-04 11:00] VITALS: BP 108/66
== END 2018-05-04 12:44 | disposition home or self-care (01) | DRG 100 ==
LOC: 6 SOUTH 21:25 → 5 SOUTH 04-22 14:37
PROVIDERS: ADMIT Internal Medicine; ATTEND Internal Medicine
DX: G40.209 Localization-related (focal) (partial) symptomatic epilepsy and epileptic syndromes with complex partial seizures, not intractable, without status epilepticus (principal); K85.90 Acute pancreatitis without necrosis or infection, unspecified; I82.402 Acute embolism and thrombosis of unspecified deep veins of left lower extremity; G72.81 Critical illness myopathy; G95.9 Disease of spinal cord, unspecified; G25.2 Other specified forms of tremor; G25.0 Essential tremor; F10.20 Alcohol dependence, uncomplicated; F17.200 Nicotine dependence, unspecified, uncomplicated; G31.9 Degenerative disease of nervous system, unspecified; G31.2 Degeneration of nervous system due to alcohol; G47.30 Sleep apnea, unspecified; G57.30 Lesion of lateral popliteal nerve, unspecified lower limb; E11.40 Type 2 diabetes mellitus with diabetic neuropathy, unspecified; Z79.4 Long term (current) use of insulin; I10 Essential (primary) hypertension; F32.9 Major depressive disorder, single episode, unspecified; F41.9 Anxiety disorder, unspecified; M10.9 Gout, unspecified; M54.5 Low back pain; I25.10 Atherosclerotic heart disease of native coronary artery without angina pectoris; J45.909 Unspecified asthma, uncomplicated; K21.9 Gastro-esophageal reflux disease without esophagitis; M50.10 Cervical disc disorder with radiculopathy, unspecified cervical region; Z79.01 Long term (current) use of anticoagulants; Z79.51 Long term (current) use of inhaled steroids; Z79.899 Other long term (current) drug therapy; Z82.49 Family history of ischemic heart disease and other diseases of the circulatory system
CPT/HCPCS: 36415; 70553; 71045; 72141; 80048; 80307; 81001; 85025; 85610; 87040; 93970; 94640; 94760; 95816; A9585; J1630; J1650; J2060; J7030; J7620; Q0162; Q0163; 92526; 92610; 97116; 97530; 97535; G0479

== ENCOUNTER 2018-05-08 16:10 | Inpatient (IN) | payer SELFPAY ==
[~2018-05-08] VITALS: Ht 182.9 cm; Wt 89.8 kg
[~2018-05-08 16:10] MED LIST changes: +LEVE500T56 PO; +WARF-31 PO
[2018-05-08 17:00] VITALS: BP 116/75
[2018-05-08] MEDS ORDERED: PROCHLORPERAZINE 25 MG SUPP.RECT. PR PRN (18:30)
[2018-05-08] MEDS ORDERED: MAG HYDROX/ALUMINUM HYD/SIMETH 30 ML ORAL.SUSP PO PRN (18:30)
[2018-05-08] MEDS ORDERED: CALCIUM CARBONATE 500 MG TAB.CHEW PO PRN (18:30)
[2018-05-08] MEDS ORDERED: BISACODYL 10 MG SUPP.RECT. PR PRN (18:30)
[2018-05-08] MEDS ORDERED: cloNIDine HCL 0.1 MG TABLET PO PRN (18:30)
[2018-05-08] MEDS ORDERED: ZOLPIDEM 5 MG TABLET. PO PRN (18:30)
[2018-05-08] MEDS ORDERED: NON FORMULARY ITEM (Albuterol Sulfate (Proair Hfa Inhaler) 1 PUFF) INH PRN (18:30)
[2018-05-08] MEDS ORDERED: ACETAMINOPHEN 325 MG TABLET. PO PRN (18:30)
[2018-05-08] MEDS ORDERED: ONDANSETRON PF 4 MG/2 ML VIAL. IV PRN (18:30)
[2018-05-08] MEDS ORDERED: MAGNESIUM HYDROXIDE 2,400 MG/30 ML ORAL.SUSP. PO PRN (18:30)
[2018-05-08] MEDS ORDERED: PROCHLORPERAZINE 10 MG/2 ML VIAL. IV PRN (18:30)
[2018-05-08] MEDS ORDERED: ALBUTEROL SULFATE 2.5 MG/3 ML NEBU. NEB PRN (18:45)
[2018-05-08 19:00] VITALS: BP 104/74
--- NOTE | 2018-05-08 19:07 | PDOC1 ---
History and Physical Date of Admission Date of Admission DATE: 05/08/18 TIME: 19:00 Identification/Chief Complaint Chief Complaint more swelling and pain left leg Source Source: Caregiver, Chart review, Patient History of Present Illness History of Present Illness Pt is a direct admit from Dr. Manzanares office, he was there for follow-up today after being discharge few days ago for left leg DVT. He was discharged on warfarin, he has no insurance. He claims he was compliant but INR is 1.6. Blood pressure on the high side but he is because uncomfortable. His left leg is markedly more swollen and red than the right leg, no skin breakages. Ankle is swollen but no trauma. He claims he is minimal ambulation because of this pain and swelling which is rather acute - started late last night. NO SOA His dc dx few dasy ago are as follows: Date of Admission: Apr 20, 2018 Date of Discharge: May 04, 2018 Admitting Diagnosis Comment: Postural tremor consistent with essential tremor Left leg DVT Possible seizure episodes, partial-complex. 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 Alcoholism, prior metabolic encephalopathy Substance use disorder myopathy, critical dz related right C7 radiculopathy. no central spinal stenosis HE has no appetite, questions if the Keppra could cause a metallic taste in his mouth He was discharged on 4 medications namely Coumadin, Keppra, hydrocodone, and another unrecalled pill which he claims compliance to. He has alcohol history but has been sober for 8 weeks now, but he has been shaking. He has not had a drop of alcohol he claims Past Medical History Cardiovascular: CAD, HTN Pulmonary: Asthma, Other CENTRAL NERVOUS SYSTEM: Seizure GI: GERD Heme/Onc: Other Psych: Anxiety, Addictions, Depression Musculoskeletal: low back pain Rheumatologic: Gout Infectious disease: HIV Endocrine: Diabetes Past Surgical History Past Surgical History: No pertinent history Family History Family History: Hypertension Social History Smoke: No ALCOHOL: heavy Drugs: Cocaine, Marijuana Current Medications Current Medications Current Medications Ondansetron HCl (Zofran) 4 mg PRN Q6HRS PRN IV NAUSEA/VOMITING; Start at 18:30 Prochlorperazine Edisylate (Compazine) 10 mg PRN Q6HRS PRN IV NAUSEA/VOMITING; Start 05/08/18 at 18:30 Prochlorperazine (Compazine) 25 mg PRN Q12HR PRN [place] NAUSEA/VOMITING; Start at 18:30 Al Hydroxide/Mg Hydroxide (Mylanta Plus Xs) 30 ml PRN Q3HRS PRN PO HEARTBURN / GAS; Start 05/08/18 at 18:30 Calcium Carbonate/ Glycine (Tums) 500 mg PRN Q3HRS PRN PO UPSET STOMACH; Start 05/08/18 at 18:30 Zolpidem Tartrate (Ambien) 5 mg PRN QHS PRN PO INSOMNIA, MAY REPEAT IN 1HR; Start 05/08/18 at 18:30 Oxycodone HCl (Roxicodone) 5 mg PRN Q3HRS PRN PO BREAKTHROUGH PAIN; Start at 18:30 Morphine Sulfate (Morphine Sulfate) 2 mg PRN Q2HR PRN IV PAIN; Start 05/08/18 at 18:30 Acetaminophen (Tylenol) 650 mg PRN Q6HRS PRN PO Headaches, Temp > 101.5F; Start 05/08/18 at 18:30 Magnesium Hydroxide (Milk Of Magnesia) 2,400 mg PRN Q12HR PRN PO CONSTIPATION; Start 05/08/18 at 18:30 Bisacodyl (Dulcolax Supp) 10 mg PRN DAILY PRN [place] CONSTIPATION; Start 05/08/18 at 18:30 Clonidine HCl (Catapres) 0.1 mg PRN Q1HR PRN PO SBP > 180 or DBP > 100, MRX3; Start 05/08/18 at 18:30 Albuterol Sulfate (Ventolin Neb Soln) 2.5 mg PRN Q2HRS PRN NEB SHORTNESS OF BREATH; Start 05/08/18 at 18:45 Levetiracetam (Keppra) 500 mg BID PO ; Start 05/08/18 at 21:00 Non-Formulary Medication (Albuterol Sulfate (Proair Hfa Inhaler)) 1 puff PRN Q4HRS PRN INH SHORTNESS OF BREATH; Start 05/08/18 at 18:30; Status UNV Budesonide (Pulmicort) 0.5 mg RTBID NEB ; Start 05/08/18 at 20:00 Pantoprazole Sodium (Protonix) 40 mg DAILYAC PO ; Start 05/08/18 at 18:30 Theophylline (Theodur) 300 mg BID PO ; Start 05/08/18 at 21:00 Warfarin Sodium (Coumadin Per Pharmacy) 1 each PRN DAILY PRN MC SEE COMMENTS; Start 05/08/18 at 18:30 Active Scripts Active Keppra (Levetiracetam) 500 Mg Tablet 1 Tab PO BID Warfarin Sodium 5 Mg Tablet 1 Tab PO DAILY Catapres (Clonidine Hcl) 0.1 Mg Tablet 0.1 Mg PO PRN Q1HR PRN 14 Days Withdrawal symptoms Reported Proair Hfa Inhaler (Albuterol Sulfate) 8.5 Gm Hfa.aer.ad 1 Puff INH PRN Q4HRS PRN Duoneb 0.5-3(2.5) Mg/3 Ml (Albuterol/Ipratropium) 3 Ml Ampul.neb 3 Ml NEB Q2HR PRN Symbicort 160-4.5 Mcg Inhaler (Budesonide/Formoterol Fumarate) 10.2 Gm Hfa.aer.ad 2 Puff IH BID Prilosec Otc (Omeprazole Magnesium) 20 Mg Tablet.dr 1 Tab PO DAILY Theophylline (Theophylline Anhydrous) 400 Mg Tablet.er 300 Mg PO BID Allergies Allergies: Coded Allergies: No Known Drug Allergies (Unverified , 04/30/16) ROS Review of System Leg pain and swelling, poor appetite, she came from alcohol withdrawal symptoms - he claims he is feeling like ants crawling on his right leg Physical Exam General: No acute distress, Other (very shaky and restless, left leg is markedly swollen and red and painful more than RT) HEENT: PERRLA Lungs: Clear to auscultation Heart: S1S2, RRR, no thrills, no rubs Cardiovascular: S1, S2 Abdomen: Normal bowel sounds, Soft, No tenderness, No hepatosplenomegaly, No masses Male Genitals Exam: normal genitalia, normal prostate PELVIC: Nml ext genitalia Extremities: Other (left leg markedly red swollen painful, no skin breakages, limited movement flexion because of pain and swelling) Neuro: Normal gait, Normal speech, Strength at 5/5 X4 ext, Normal tone, Sensation intact, Cranial nerves 3-12 NL, Reflexes 2+ Vitals Vitals Vital Signs Date Time Temp Pulse Resp B/P (MAP) Pulse Ox O2 Delivery O2 Flow Rate FiO2 05/08/18 17:00 97.6 85 20 116/75 (89) 98 Room Air 97.6 VTE Prophylaxis Ordered VTE Prophylaxis Devices: Yes VTE Pharmacological Prophylaxi: Yes Assessment/Plan Assessment/Plan LEft leg pain and swelling, site of recent prev DVT - r/o extension/worsened DVT SUB therapeutic INR Postural tremor consistent with essential tremor partial-complex SZ started on keppra recently\ Alcohol withdrawal sxs Alcoholism, prior metabolic encephalopathy Substance use disorder - sober now right C7 radiculopathy. no central spinal stenosis PLAN: Admit 2 MN Recheck venous Doppler stat tonight INR is subtherapeutic, Lovenox twice a day dose with warfarin per pharmacy-goal INR 2-3 CIWA protocol, I do believe he is going to alcohol withdrawal now, shakes, restlessness, feeling ants crawling on his other leg Home meds I have reconciled including pain meds and Keppra. Okay for regular diet Seizure precaution Discussed with family at bedside JAMES HURST MD May 08, 2018 19:07
[2018-05-08] MEDS: BUDESONIDE 0.5 MG/2 ML NEBU. NEB SCH (19:31)
[2018-05-08] MEDS ORDERED: MULTIVIT INFUSN,ADULT 4,VIT K 10 ML, THIAMINE INJ 100 MG, FOLIC ACID INJ 1 MG in IV NOR... IV ONE (20:00)
[2018-05-08] MEDS: MORPHINE SULFATE 2 MG/ML VIAL. IV PRN ×2 (20:07→22:17)
[2018-05-08] MEDS: THEOPHYLLINE 12HR ER 300 MG TAB.ER.12H. PO SCH (20:07)
[2018-05-08] MEDS: PANTOPRAZOLE 40 MG TABLET.DR. PO SCH (20:07)
[2018-05-08] MEDS: levETIRAcetam 500 MG TABLET PO SCH (20:08)
[2018-05-08] MEDS ORDERED: C.DIFF MED SCREEN BY RX. MC ONE (21:15)
[2018-05-08 21:47] LABS: PROTHROMBIN TIME PATIENT 18.5 SEC (11.7-14.0)
[2018-05-08 23:00] VITALS: BP 119/72
[2018-05-09] VITALS (7 sets, daily range): BP systolic 95–117; BP diastolic 58–75
[2018-05-09] MEDS: MORPHINE SULFATE 2 MG/ML VIAL. IV PRN ×10 (00:30→23:50)
[2018-05-09 05:01] LABS: BASO # 0.1 x10^3/uL (0.0-0.2); BASO % 1 % (0-3); EOS # 0.3 x10^3/uL (0.0-0.7); EOS % 7 % (0-3); HEMATOCRIT 28.7 % (39.0-53.0); HEMOGLOBIN 9.6 g/dL (13.0-17.5); LYMPH # 1.8 x10^3/uL (1.0-4.8); LYMPH % 35 % (24-48); MEAN CORPUSCULAR HEMOGLOBIN 26 pg (25-35); MEAN CORPUSCULAR HGB CONC 34 g/dL (31-37); MEAN CORPUSCULAR VOLUME 78 fL (79-100); MONO # 0.4 x10^3/uL (0.0-1.1); MONO % 8 % (0-9); NEUT # 2.6 x10^3uL (1.8-7.7); NEUT % 50 % (31-73); PLATELET COUNT 353 x10^3/uL (140-400); RED BLOOD COUNT 3.67 x10^6/uL (4.30-5.70); RED CELL DISTRIBUTION WIDTH 19.5 % (11.5-14.5); WHITE BLOOD COUNT 5.2 x10^3/uL (4.0-11.0)
[2018-05-09 05:24] LABS: ALBUMIN 3.1 g/dL (3.4-5.0); ALBUMIN/GLOBULIN RATIO 0.9 (1.0-1.7); CALCIUM 9.3 mg/dL (8.5-10.1); CREATININE 0.7 mg/dL (0.7-1.3); GFR 124.3; PHOSPHORUS 4.5 mg/dL (2.6-4.7); POTASSIUM 3.9 mmol/L (3.5-5.1); TOTAL BILIRUBIN 0.2 mg/dL (0.2-1.0); TOTAL PROTEIN 6.7 g/dL (6.4-8.2)
[2018-05-09] MEDS: BUDESONIDE 0.5 MG/2 ML NEBU. NEB SCH ×2 (08:00→19:19)
--- NOTE | 2018-05-09 09:08 | RAD ---
Examination: VENOUS LOWER EXTREMITY LEFT History: RECENT DVT, PT ON BLOOD THINNERS, INCREASED SWELLING LLE X 1 DAY
PREV BLEV 04/24/18

LT NO FLOW SEEN AT CFV/ PROX DFV, AND CALF VEINS
LT NON OCCLUSIVE CLOT IN SFV AND POP VN
LT GSV PATENT
RT CFV PATENT
NO AUGMENTATION PERFORMED Comparison/Correlation: 04/24/2018 bilateral lower extremity venous ultrasound exam Findings: Left lower extremity duplex venous ultrasound exam was performed. Grayscale, color Doppler, spectral Doppler imaging was performed. Augmentation was not performed. The left greater saphenous vein is patent. Right common femoral vein is patent. There is no flow identified at the common femoral vein and proximal profunda femoris vein. Nonocclusive clot is seen involving the superficial femoral vein and popliteal vein. No flow identified involving the calf veins. Impression: Thrombus identified involving the left lower extremity venous system. Improvement is noted with nonocclusive thrombus and flow evident in the left superficial femoral vein and popliteal vein although no flow is evident in the calf veins. Electronically signed by: Benito Ross MD (05/09/2018 9:05 AM) [facility]
[2018-05-09] MEDS: THEOPHYLLINE 12HR ER 300 MG TAB.ER.12H. PO SCH ×2 (09:36→20:48)
[2018-05-09] MEDS: levETIRAcetam 500 MG TABLET PO SCH ×2 (09:36→20:48)
[2018-05-09] MEDS: PANTOPRAZOLE 40 MG TABLET.DR. PO SCH (09:36)
--- NOTE | 2018-05-09 10:04 | PDOC ---
PROGRESS NOTES Chief Complaint Chief Complaint left leg dvt - interval sono actually shows improvement SUB therapeutic INR - 1.6 on admit Self pay Postural tremor consistent with essential tremor partial-complex SZ started on keppra recently\ Alcohol withdrawal sxs Alcoholism, prior metabolic encephalopathy Substance use disorder - sober now right C7 radiculopathy. no central spinal stenosis History of Present Illness History of Present Illness Alcohol withdrawal symptoms are better since I started CIWA last night Ultrasound results reviewed, there is actually improvement in interval ultrasound of the left leg DVT INR is low 1.6-warfarin per pharmacy managing, goal INR 2-3 Plan: Continue warfarin with a goal INR 2-3 Ambulate ad chapis. Continue CIWA Continue Lovenox twice a day until INR is at goal Daily INR Discussed with patient Vitals Vitals Vital Signs Date Time Temp Pulse Resp B/P (MAP) Pulse Ox O2 Delivery O2 Flow Rate FiO2 05/09/18 09:50 98 Room Air 05/09/18 07:00 97.5 79 16 95/58 (70) 97.5 Physical Exam General: Alert, Oriented X3, Cooperative, No acute distress, Other (very shaky and restless, left leg is markedly swollen and red and painful more than RT) Heart: Regular rate, Normal S1, Normal S2 Lungs: Clear, Other Abdomen: Normal bowel sounds, Soft, No tenderness, No hepatosplenomegaly, No masses Extremities: No clubbing, No cyanosis, Other (left leg markedly red swollen painful, no skin breakages, limited movement flexion because of pain and swelling) Skin: No rashes, No breakdown Labs LABS Laboratory Tests Test 05/08/18 21:20 05/09/18 03:40 Prothrombin Time 18.5 SEC (11.7-14.0) 18.0 SEC (11.7-14.0) Prothromb Time International Ratio 1.6 (0.8-1.1) 1.6 (0.8-1.1) White Blood Count 5.2 x10^3/uL (4.0-11.0) Red Blood Count 3.67 x10^6/uL (4.30-5.70) Hemoglobin 9.6 g/dL (13.0-17.5) Hematocrit 28.7 % (39.0-53.0) Mean Corpuscular Volume 78 fL (79-100) Mean Corpuscular Hemoglobin 26 pg (25-35) Mean Corpuscular Hemoglobin Concent 34 g/dL (31-37) Red Cell Distribution Width 19.5 % (11.5-14.5) Platelet Count 353 x10^3/uL (140-400) Neutrophils (%) (Auto) 50 % (31-73) Lymphocytes (%) (Auto) 35 % (24-48) Monocytes (%) (Auto) 8 % (0-9) Eosinophils (%) (Auto) 7 % (0-3) Basophils (%) (Auto) 1 % (0-3) Neutrophils # (Auto) 2.6 x10^3uL (1.8-7.7) Lymphocytes # (Auto) 1.8 x10^3/uL (1.0-4.8) Monocytes # (Auto) 0.4 x10^3/uL (0.0-1.1) Eosinophils # (Auto) 0.3 x10^3/uL (0.0-0.7) Basophils # (Auto) 0.1 x10^3/uL (0.0-0.2) Sodium Level 141 mmol/L (136-145) Potassium Level 3.9 mmol/L (3.5-5.1) Chloride Level 105 mmol/L (98-107) Carbon Dioxide Level 26 mmol/L (21-32) Anion Gap 10 (6-14) Blood Urea Nitrogen 14 mg/dL (8-26) Creatinine 0.7 mg/dL (0.7-1.3) Estimated GFR (Cockcroft-Gault) 124.3 BUN/Creatinine Ratio 20 (6-20) Glucose Level 110 mg/dL (70-99) Calcium Level 9.3 mg/dL (8.5-10.1) Phosphorus Level 4.5 mg/dL (2.6-4.7) Magnesium Level 2.0 mg/dL (1.8-2.4) Total Bilirubin 0.2 mg/dL (0.2-1.0) Aspartate Amino Transf (AST/SGOT) 13 U/L (15-37) Alanine Aminotransferase (ALT/SGPT) 24 U/L (16-63) Alkaline Phosphatase 68 U/L (46-116) Total Protein 6.7 g/dL (6.4-8.2) Albumin 3.1 g/dL (3.4-5.0) Albumin/Globulin Ratio 0.9 (1.0-1.7) Review of Systems Review of Systems A 14 point ROS was completed with the following noted as positive: Other systems reviewed and negative. \CONSTITUTIONAL: No fever or chills EYES: No recent changes SKIN: No rash or itching CARDIOVASCULAR: No chest pain, syncope, palpitations, or edema RESPIRATORY: No SOB or cough GASTROINTESTINAL: No nausea, vomiting or abdominal pain NEUROLOGICAL: No headaches or weakness ENDOCRINE: No cold or heat intolerance GENITOURINARY: No urgency or frequency of urination MUSCULOSKELETAL: No back pain or joint pain LYMPHATICS: No enlarged lymph nodes PSYCHIATRIC: No anxiety or depression Comment Review of Relevant I have reviewed the following items wali (where applicable) has been applied. Labs Laboratory Tests Test 05/08/18 21:20 05/09/18 03:40 Prothrombin Time 18.5 SEC (11.7-14.0) 18.0 SEC (11.7-14.0) Prothromb Time International Ratio 1.6 (0.8-1.1) 1.6 (0.8-1.1) White Blood Count 5.2 x10^3/uL (4.0-11.0) Red Blood Count 3.67 x10^6/uL (4.30-5.70) Hemoglobin 9.6 g/dL (13.0-17.5) Hematocrit 28.7 % (39.0-53.0) Mean Corpuscular Volume 78 fL (79-100) Mean Corpuscular Hemoglobin 26 pg (25-35) Mean Corpuscular Hemoglobin Concent 34 g/dL (31-37) Red Cell Distribution Width 19.5 % (11.5-14.5) Platelet Count 353 x10^3/uL (140-400) Neutrophils (%) (Auto) 50 % (31-73) Lymphocytes (%) (Auto) 35 % (24-48) Monocytes (%) (Auto) 8 % (0-9) Eosinophils (%) (Auto) 7 % (0-3) Basophils (%) (Auto) 1 % (0-3) Neutrophils # (Auto) 2.6 x10^3uL (1.8-7.7) Lymphocytes # (Auto) 1.8 x10^3/uL (1.0-4.8) Monocytes # (Auto) 0.4 x10^3/uL (0.0-1.1) Eosinophils # (Auto) 0.3 x10^3/uL (0.0-0.7) Basophils # (Auto) 0.1 x10^3/uL (0.0-0.2) Sodium Level 141 mmol/L (136-145) Potassium Level 3.9 mmol/L (3.5-5.1) Chloride Level 105 mmol/L (98-107) Carbon Dioxide Level 26 mmol/L (21-32) Anion Gap 10 (6-14) Blood Urea Nitrogen 14 mg/dL (8-26) Creatinine 0.7 mg/dL (0.7-1.3) Estimated GFR (Cockcroft-Gault) 124.3 BUN/Creatinine Ratio 20 (6-20) Glucose Level 110 mg/dL (70-99) Calcium Level 9.3 mg/dL (8.5-10.1) Phosphorus Level 4.5 mg/dL (2.6-4.7) Magnesium Level 2.0 mg/dL (1.8-2.4) Total Bilirubin 0.2 mg/dL (0.2-1.0) Aspartate Amino Transf (AST/SGOT) 13 U/L (15-37) Alanine Aminotransferase (ALT/SGPT) 24 U/L (16-63) Alkaline Phosphatase 68 U/L (46-116) Total Protein 6.7 g/dL (6.4-8.2) Albumin 3.1 g/dL (3.4-5.0) Albumin/Globulin Ratio 0.9 (1.0-1.7) Laboratory Tests Test 05/08/18 21:20 05/09/18 03:40 Prothrombin Time 18.5 SEC (11.7-14.0) 18.0 SEC (11.7-14.0) Prothromb Time International Ratio 1.6 (0.8-1.1) 1.6 (0.8-1.1) White Blood Count 5.2 x10^3/uL (4.0-11.0) Red Blood Count 3.67 x10^6/uL (4.30-5.70) Hemoglobin 9.6 g/dL (13.0-17.5) Hematocrit 28.7 % (39.0-53.0) Mean Corpuscular Volume 78 fL (79-100) Mean Corpuscular Hemoglobin 26 pg (25-35) Mean Corpuscular Hemoglobin Concent 34 g/dL (31-37) Red Cell Distribution Width 19.5 % (11.5-14.5) Platelet Count 353 x10^3/uL (140-400) Neutrophils (%) (Auto) 50 % (31-73) Lymphocytes (%) (Auto) 35 % (24-48) Monocytes (%) (Auto) 8 % (0-9) Eosinophils (%) (Auto) 7 % (0-3) Basophils (%) (Auto) 1 % (0-3) Neutrophils # (Auto) 2.6 x10^3uL (1.8-7.7) Lymphocytes # (Auto) 1.8 x10^3/uL (1.0-4.8) Monocytes # (Auto) 0.4 x10^3/uL (0.0-1.1) Eosinophils # (Auto) 0.3 x10^3/uL (0.0-0.7) Basophils # (Auto) 0.1 x10^3/uL (0.0-0.2) Sodium Level 141 mmol/L (136-145) Potassium Level 3.9 mmol/L (3.5-5.1) Chloride Level 105 mmol/L (98-107) Carbon Dioxide Level 26 mmol/L (21-32) Anion Gap 10 (6-14) Blood Urea Nitrogen 14 mg/dL (8-26) Creatinine 0.7 mg/dL (0.7-1.3) Estimated GFR (Cockcroft-Gault) 124.3 BUN/Creatinine Ratio 20 (6-20) Glucose Level 110 mg/dL (70-99) Calcium Level 9.3 mg/dL (8.5-10.1) Phosphorus Level 4.5 mg/dL (2.6-4.7) Magnesium Level 2.0 mg/dL (1.8-2.4) Total Bilirubin 0.2 mg/dL (0.2-1.0) Aspartate Amino Transf (AST/SGOT) 13 U/L (15-37) Alanine Aminotransferase (ALT/SGPT) 24 U/L (16-63) Alkaline Phosphatase 68 U/L (46-116) Total Protein 6.7 g/dL (6.4-8.2) Albumin 3.1 g/dL (3.4-5.0) Albumin/Globulin Ratio 0.9 (1.0-1.7) Medications Current Medications Ondansetron HCl (Zofran) 4 mg PRN Q6HRS PRN IV NAUSEA/VOMITING; Start at 18:30 Prochlorperazine Edisylate (Compazine) 10 mg PRN Q6HRS PRN IV NAUSEA/VOMITING; Start 05/08/18 at 18:30 Prochlorperazine (Compazine) 25 mg PRN Q12HR PRN [place] NAUSEA/VOMITING; Start at 18:30 Al Hydroxide/Mg Hydroxide (Mylanta Plus Xs) 30 ml PRN Q3HRS PRN PO HEARTBURN / GAS; Start 05/08/18 at 18:30 Calcium Carbonate/ Glycine (Tums) 500 mg PRN Q3HRS PRN PO UPSET STOMACH; Start 05/08/18 at 18:30 Zolpidem Tartrate (Ambien) 5 mg PRN QHS PRN PO INSOMNIA, MAY REPEAT IN 1HR; Start 05/08/18 at 18:30; Stop 05/08/18 at 19:10; Status DC Oxycodone HCl (Roxicodone) 5 mg PRN Q3HRS PRN PO BREAKTHROUGH PAIN; Start at 18:30 Morphine Sulfate (Morphine Sulfate) 2 mg PRN Q2HR PRN IV PAIN Last administered on 05/09/18at 09:35; Start 05/08/18 at 18:30 Acetaminophen (Tylenol) 650 mg PRN Q6HRS PRN PO Headaches, Temp > 101.5F; Start 05/08/18 at 18:30 Magnesium Hydroxide (Milk Of Magnesia) 2,400 mg PRN Q12HR PRN PO CONSTIPATION; Start 05/08/18 at 18:30 Bisacodyl (Dulcolax Supp) 10 mg PRN DAILY PRN [place] CONSTIPATION; Start 05/08/18 at 18:30 Clonidine HCl (Catapres) 0.1 mg PRN Q1HR PRN PO SBP > 180 or DBP > 100, MRX3; Start 05/08/18 at 18:30 Albuterol Sulfate (Ventolin Neb Soln) 2.5 mg PRN Q2HRS PRN NEB SHORTNESS OF BREATH; Start 05/08/18 at 18:45 Levetiracetam (Keppra) 500 mg BID PO Last administered on 05/09/18 09:36; Start 05/08/18 at 21:00 Non-Formulary Medication (Albuterol Sulfate (Proair Hfa Inhaler)) 1 puff PRN Q4HRS PRN INH SHORTNESS OF BREATH; Start 05/08/18 at 18:30; Status UNV Budesonide (Pulmicort) 0.5 mg RTBID NEB Last administered on 05/08/18 19:31; Start 05/08/18 at 20:00 Pantoprazole Sodium (Protonix) 40 mg DAILYAC PO Last administered on 09:36; Start 05/08/18 at 18:30 Theophylline (Theodur) 300 mg BID PO Last administered on 05/09/18 09:36; Start 05/08/18 at 21:00 Warfarin Sodium (Coumadin Per Pharmacy) 1 each PRN DAILY PRN MC SEE COMMENTS Last administered on 05/09/18at 05:46; Start 05/08/18 at 18:30 Enoxaparin Sodium (Lovenox 100mg Syringe) 90 mg Q12HR SQ Last administered on 05/09/18at 09:36; Start 05/08/18 at 21:00 Lorazepam (Ativan) 1 mg PRN Q6HRS PRN PO ANXIETY / AGITATION; Start 05/08/18 at 19:15 Lorazepam (Ativan) 2 mg PRN Q4HRS PRN IV ANXIETY / AGITATION Last administered on 05/09/18at 09:35; Start 05/08/18 at 19:15 Chlordiazepoxide (Librium) 50 mg PRN Q6HRS PRN PO ANXIETY / AGITATION; Start 05/08/18 at 19:15 Multivitamins 10 ml/Thiamine HCl 100 mg/Folic Acid 1 mg/Sodium Chloride 1,011.2 ml @ 1,000.088 mls/hr 1X ONCE IV Last administered on 05/08/18at 21:51; Start 05/08/18 at 20:00; Stop 05/08/18 at 21:00; Status DC Zolpidem Tartrate (Ambien) 5 mg PRN QHS PRN PO INSOMNIA; Start 05/08/18 at 19: 15 Pharmacy Consult (C.diff Med Screen By Rx) 1 each 1X ONCE MC ; Start 05/08/18 at 21:15; Stop 05/08/18 at 21:16; Status Cancel Influenza Virus Vaccine (Afluria Trivalent [id number] Syringe) 0.5 ml ONCE ONCE VAX IM ; Start 05/09/18 at 09:00; Stop 05/09/18 at 09:01; Status DC Info (Anti-Coagulation Monitoring By Pharmacy) 1 each PRN DAILY PRN MC SEE COMMENTS; Start 05/09/18 at 09:00 Active Scripts Active Keppra (Levetiracetam) 500 Mg Tablet 1 Tab PO BID Warfarin Sodium 5 Mg Tablet 1 Tab PO DAILY Catapres (Clonidine Hcl) 0.1 Mg Tablet 0.1 Mg PO PRN Q1HR PRN 14 Days Withdrawal symptoms Reported Proair Hfa Inhaler (Albuterol Sulfate) 8.5 Gm Hfa.aer.ad 1 Puff INH PRN Q4HRS PRN Duoneb 0.5-3(2.5) Mg/3 Ml (Albuterol/Ipratropium) 3 Ml Ampul.neb 3 Ml NEB Q2HR PRN Symbicort 160-4.5 Mcg Inhaler (Budesonide/Formoterol Fumarate) 10.2 Gm Hfa.aer.ad 2 Puff IH BID Prilosec Otc (Omeprazole Magnesium) 20 Mg Tablet. 1 Tab PO DAILY Theophylline (Theophylline Anhydrous) 400 Mg Tablet.er 300 Mg PO BID Vitals/I & O Vital Sign - Last 24 Hours 05/08/18 05/08/18 05/08/18 05/08/18 17:00 18:00 19:00 19:34 Temp 97.6 97.8 97.6 97.8 Pulse 85 94 Resp 20 18 B/P (MAP) 116/75 (89) 104/74 (84) Pulse Ox 98 96 97 O2 Delivery Room Air Room Air Room Air Room Air 05/08/18 05/08/18 05/08/18 05/08/18 20:00 20:07 22:17 23:00 Temp 98.6 98.6 Pulse 81 Resp 18 B/P (MAP) 119/72 (88) Pulse Ox 98 O2 Delivery Room Air Room Air Room Air Room Air 05/09/18 05/09/18 05/09/18 05/09/18 00:30 03:00 03:43 07:00 Temp 98.0 97.5 98.0 97.5 Pulse 80 79 Resp 18 16 B/P (MAP) 115/75 (88) 95/58 (70) Pulse Ox 98 98 O2 Delivery Room Air Room Air Room Air Room Air 05/09/18 05/09/18 05/09/18 07:29 09:35 09:50 Pulse Ox 98 98 O2 Delivery Room Air Room Air Room Air Intake and Output 05/08/18 05/08/18 05/09/18 15:00 23:00 07:00 Intake Total 60 ml 120 ml Balance 60 ml 120 ml JAMES HURST MD May 09, 2018 10:04
[2018-05-09] MEDS: ANTI-COAG MONITOR BY PHARMACY. MC PRN (15:34)
[2018-05-09] MEDS ORDERED: WARFARIN 7.5 MG TABLET. PO ONE (16:00)
[2018-05-09] MEDS: oxyCODONE IR 5 MG TABLET PO PRN ×2 (17:56→22:08)
[2018-05-09] MEDS: chlordiazePOXIDE HCL 25 MG CAPSULE PO PRN (20:34)
[2018-05-09] MEDS: ZOLPIDEM 5 MG TABLET. PO PRN (20:49)
[2018-05-09] MEDS: LORazepam 1 MG TABLET PO PRN (22:08)
[2018-05-10] MEDS: oxyCODONE IR 5 MG TABLET PO PRN ×3 (01:32→21:36)
[2018-05-10] MEDS: MORPHINE SULFATE 2 MG/ML VIAL. IV PRN ×6 (02:05→20:49)
[2018-05-10 03:30] VITALS: BP 118/81
[2018-05-10 07:32] VITALS: BP 132/83
[2018-05-10] MEDS: BUDESONIDE 0.5 MG/2 ML NEBU. NEB SCH ×2 (07:44→19:55)
[2018-05-10] MEDS: THEOPHYLLINE 12HR ER 300 MG TAB.ER.12H. PO SCH ×2 (08:36→20:52)
[2018-05-10] MEDS: PANTOPRAZOLE 40 MG TABLET.DR. PO SCH (08:36)
[2018-05-10] MEDS: levETIRAcetam 500 MG TABLET PO SCH ×2 (08:36→20:52)
--- NOTE | 2018-05-10 09:53 | PDOC ---
PROGRESS NOTES Chief Complaint Chief Complaint left leg dvt - interval sono actually shows improvement SUB therapeutic INR - 1.6 on admit Self pay [facility] dependecne ETOH use - sober for weeks/mos now Other diagnoses: Postural tremor consistent with essential tremor partial-complex SZ started on keppra recently\ Alcohol withdrawal sxs Alcoholism, prior metabolic encephalopathy Substance use disorder - sober now right C7 radiculopathy. no central spinal stenosis History of Present Illness History of Present Illness Left leg clinically and sonographically looks better But INR 1.2 now from 1.6-pharmacy managing warfarin. Goal INR is 2-3 because of left leg DVT-first episode, unprovoked Alcohol withdrawal symptoms are better Some night RN issues-patient asking for morphine and Ativan [id number] Plan: Decrease morphine to 1 mg every 4 when necessary-since leg sonographically and clinically looks better Continue CIWA I did decrease Ativan to 1 mg instead of 2 mg every 4 when necessary since clinically better Also on by mouth pain meds He likes his narcotics DC home once INR is at least 2-he already has warfarin scripts on chart from his recent admission - he was a direct admit from [employer] primary for worsening left leg AMbulate ad chapis Vitals Vitals Vital Signs Date Time Temp Pulse Resp B/P (MAP) Pulse Ox O2 Delivery O2 Flow Rate FiO2 05/10/18 08:35 Room Air 05/10/18 07:44 99 05/10/18 07:32 97.7 105 20 132/83 (99) 97.7 Physical Exam General: Alert, Oriented X3, Cooperative, No acute distress, Other (very shaky and restless, left leg is markedly swollen and red and painful more than RT) Heart: Regular rate, Normal S1, Normal S2 Lungs: Clear, Other Abdomen: Normal bowel sounds, Soft, No tenderness, No hepatosplenomegaly, No masses Extremities: No clubbing, No cyanosis, Other (left leg markedly red swollen painful, no skin breakages, limited movement flexion because of pain and swelling) Skin: No rashes, No breakdown Labs LABS Laboratory Tests Test 05/10/18 03:50 Prothrombin Time 15.0 SEC (11.7-14.0) Prothromb Time International Ratio 1.2 (0.8-1.1) Review of Systems Review of Systems Left leg discomfort otherwise the rest of ROS 14 point negative Comment Review of Relevant I have reviewed the following items wali (where applicable) has been applied. Labs Laboratory Tests Test 05/08/18 21:20 05/09/18 03:40 05/10/18 03:50 Prothrombin Time 18.5 SEC (11.7-14.0) 18.0 SEC (11.7-14.0) 15.0 SEC (11.7-14.0) Prothromb Time International Ratio 1.6 (0.8-1.1) 1.6 (0.8-1.1) 1.2 (0.8-1.1) White Blood Count 5.2 x10^3/uL (4.0-11.0) Red Blood Count 3.67 x10^6/uL (4.30-5.70) Hemoglobin 9.6 g/dL (13.0-17.5) Hematocrit 28.7 % (39.0-53.0) Mean Corpuscular Volume 78 fL (79-100) Mean Corpuscular Hemoglobin 26 pg (25-35) Mean Corpuscular Hemoglobin Concent 34 g/dL (31-37) Red Cell Distribution Width 19.5 % (11.5-14.5) Platelet Count 353 x10^3/uL (140-400) Neutrophils (%) (Auto) 50 % (31-73) Lymphocytes (%) (Auto) 35 % (24-48) Monocytes (%) (Auto) 8 % (0-9) Eosinophils (%) (Auto) 7 % (0-3) Basophils (%) (Auto) 1 % (0-3) Neutrophils # (Auto) 2.6 x10^3uL (1.8-7.7) Lymphocytes # (Auto) 1.8 x10^3/uL (1.0-4.8) Monocytes # (Auto) 0.4 x10^3/uL (0.0-1.1) Eosinophils # (Auto) 0.3 x10^3/uL (0.0-0.7) Basophils # (Auto) 0.1 x10^3/uL (0.0-0.2) Sodium Level 141 mmol/L (136-145) Potassium Level 3.9 mmol/L (3.5-5.1) Chloride Level 105 mmol/L (98-107) Carbon Dioxide Level 26 mmol/L (21-32) Anion Gap 10 (6-14) Blood Urea Nitrogen 14 mg/dL (8-26) Creatinine 0.7 mg/dL (0.7-1.3) Estimated GFR (Cockcroft-Gault) 124.3 BUN/Creatinine Ratio 20 (6-20) Glucose Level 110 mg/dL (70-99) Calcium Level 9.3 mg/dL (8.5-10.1) Phosphorus Level 4.5 mg/dL (2.6-4.7) Magnesium Level 2.0 mg/dL (1.8-2.4) Total Bilirubin 0.2 mg/dL (0.2-1.0) Aspartate Amino Transf (AST/SGOT) 13 U/L (15-37) Alanine Aminotransferase (ALT/SGPT) 24 U/L (16-63) Alkaline Phosphatase 68 U/L (46-116) Total Protein 6.7 g/dL (6.4-8.2) Albumin 3.1 g/dL (3.4-5.0) Albumin/Globulin Ratio 0.9 (1.0-1.7) Laboratory Tests Test 05/10/18 03:50 Prothrombin Time 15.0 SEC (11.7-14.0) Prothromb Time International Ratio 1.2 (0.8-1.1) Medications Current Medications Ondansetron HCl (Zofran) 4 mg PRN Q6HRS PRN IV NAUSEA/VOMITING; Start at 18:30 Prochlorperazine Edisylate (Compazine) 10 mg PRN Q6HRS PRN IV NAUSEA/VOMITING; Start 05/08/18 at 18:30 Prochlorperazine (Compazine) 25 mg PRN Q12HR PRN [place] NAUSEA/VOMITING; Start at 18:30 Al Hydroxide/Mg Hydroxide (Mylanta Plus Xs) 30 ml PRN Q3HRS PRN PO HEARTBURN / GAS; Start 05/08/18 at 18:30 Calcium Carbonate/ Glycine (Tums) 500 mg PRN Q3HRS PRN PO UPSET STOMACH; Start 05/08/18 at 18:30 Zolpidem Tartrate (Ambien) 5 mg PRN QHS PRN PO INSOMNIA, MAY REPEAT IN 1HR; Start 05/08/18 at 18:30; Stop 05/08/18 at 19:10; Status DC Oxycodone HCl (Roxicodone) 5 mg PRN Q3HRS PRN PO BREAKTHROUGH PAIN Last administered on 05/10/18at 01:32; Start 05/08/18 at 18:30 Morphine Sulfate (Morphine Sulfate) 2 mg PRN Q2HR PRN IV PAIN Last administered on 05/10/18 08:35; Start 05/08/18 at 18:30 Acetaminophen (Tylenol) 650 mg PRN Q6HRS PRN PO Headaches, Temp > 101.5F; Start 05/08/18 at 18:30 Magnesium Hydroxide (Milk Of Magnesia) 2,400 mg PRN Q12HR PRN PO CONSTIPATION; Start 05/08/18 at 18:30 Bisacodyl (Dulcolax Supp) 10 mg PRN DAILY PRN [place] CONSTIPATION; Start 05/08/18 at 18:30 Clonidine HCl (Catapres) 0.1 mg PRN Q1HR PRN PO SBP > 180 or DBP > 100, MRX3; Start 05/08/18 at 18:30 Albuterol Sulfate (Ventolin Neb Soln) 2.5 mg PRN Q2HRS PRN NEB SHORTNESS OF BREATH; Start 05/08/18 at 18:45 Levetiracetam (Keppra) 500 mg BID PO Last administered on 05/10/18 08:36; Start 05/08/18 at 21:00 Non-Formulary Medication (Albuterol Sulfate (Proair Hfa Inhaler)) 1 puff PRN Q4HRS PRN INH SHORTNESS OF BREATH; Start 05/08/18 at 18:30; Status UNV Budesonide (Pulmicort) 0.5 mg RTBID NEB Last administered on 05/10/18at 07:44; Start 05/08/18 at 20:00 Pantoprazole Sodium (Protonix) 40 mg DAILYAC PO Last administered on 08:36; Start 05/08/18 at 18:30 Theophylline (Theodur) 300 mg BID PO Last administered on 05/10/18 08:36; Start 05/08/18 at 21:00 Warfarin Sodium (Coumadin Per Pharmacy) 1 each PRN DAILY PRN MC SEE COMMENTS Last administered on 05/09/18at 15:34; Start 05/08/18 at 18:30 Enoxaparin Sodium (Lovenox 100mg Syringe) 90 mg Q12HR SQ Last administered on 05/10/18at 08:37; Start 05/08/18 at 21:00 Lorazepam (Ativan) 1 mg PRN Q6HRS PRN PO ANXIETY / AGITATION Last administered on 05/09/18 22:08; Start 05/08/18 at 19:15 Lorazepam (Ativan) 2 mg PRN Q4HRS PRN IV ANXIETY / AGITATION Last administered on 05/10/18 05:07; Start 05/08/18 at 19:15 Chlordiazepoxide (Librium) 50 mg PRN Q6HRS PRN PO ANXIETY / AGITATION Last administered on 05/09/18 20:34; Start 05/08/18 at 19:15 Multivitamins 10 ml/Thiamine HCl 100 mg/Folic Acid 1 mg/Sodium Chloride 1,011.2 ml @ 1,000.088 mls/hr 1X ONCE IV Last administered on 05/08/18at 21:51; Start 05/08/18 at 20:00; Stop 05/08/18 at 21:00; Status DC Zolpidem Tartrate (Ambien) 5 mg PRN QHS PRN PO INSOMNIA Last administered on at 20:49; Start 05/08/18 at 19:15 Pharmacy Consult (C.diff Med Screen By Rx) 1 each 1X ONCE MC ; Start 05/08/18 at 21:15; Stop 05/08/18 at 21:16; Status Cancel Influenza Virus Vaccine (Afluria Trivalent [id number] Syringe) 0.5 ml ONCE ONCE VAX IM Last administered on 05/09/18at 09:00; Start 05/09/18 at 09:00; Stop 05/09/18 at 09:01; Status DC Info (Anti-Coagulation Monitoring By Pharmacy) 1 each PRN DAILY PRN MC SEE COMMENTS Last administered on 05/09/18at 15:34; Start 05/09/18 at 09:00 Warfarin Sodium (Coumadin) 7.5 mg 1X WARF ONCE PO Last administered on at 16:13; Start 05/09/18 at 16:00; Stop 05/09/18 at 16:01; Status DC Active Scripts Active Keppra (Levetiracetam) 500 Mg Tablet 1 Tab PO BID Warfarin Sodium 5 Mg Tablet 1 Tab PO DAILY Catapres (Clonidine Hcl) 0.1 Mg Tablet 0.1 Mg PO PRN Q1HR PRN 14 Days Withdrawal symptoms Reported Proair Hfa Inhaler (Albuterol Sulfate) 8.5 Gm Hfa.aer.ad 1 Puff INH PRN Q4HRS PRN Duoneb 0.5-3(2.5) Mg/3 Ml (Albuterol/Ipratropium) 3 Ml Ampul.neb 3 Ml NEB Q2HR PRN Symbicort 160-4.5 Mcg Inhaler (Budesonide/Formoterol Fumarate) 10.2 Gm Hfa.aer.ad 2 Puff IH BID Prilosec Otc (Omeprazole Magnesium) 20 Mg Tablet.dr 1 Tab PO DAILY Theophylline (Theophylline Anhydrous) 400 Mg Tablet.er 300 Mg PO BID Vitals/I & O Vital Sign - Last 24 Hours 05/09/18 05/09/18 05/09/18 05/09/18 11:00 11:56 12:31 14:16 Temp 97.8 98.6 97.8 98.6 Pulse 88 92 Resp 18 16 B/P (MAP) 105/63 (77) 112/64 (80) Pulse Ox 98 95 95 O2 Delivery Room Air Room Air Room Air Room Air 05/09/18 05/09/18 05/09/18 05/09/18 15:00 16:13 17:56 19:14 Temp 98.0 98.0 Pulse 88 Resp 18 18 18 B/P (MAP) 106/66 (79) Pulse Ox 98 95 95 95 O2 Delivery Room Air Room Air Room Air Room Air 05/09/18 05/09/18 05/09/18 05/09/18 19:20 19:30 20:00 21:15 Temp 97.5 97.5 Pulse 85 Resp 18 18 B/P (MAP) 117/61 (79) Pulse Ox 98 95 98 O2 Delivery Room Air Room Air Room Air Room Air 05/09/18 05/09/18 05/09/18 05/10/18 22:08 23:30 23:50 01:32 Temp 98.0 98.0 Pulse 85 Resp 18 18 18 18 B/P (MAP) 117/67 (84) Pulse Ox 98 98 98 98 O2 Delivery Room Air Room Air Room Air Room Air 05/10/18 05/10/18 05/10/18 05/10/18 02:05 02:32 03:30 05:50 Temp 97.5 97.5 Pulse 88 Resp 18 18 18 18 B/P (MAP) 118/81 (93) Pulse Ox 98 98 94 94 O2 Delivery Room Air Room Air Room Air Room Air 05/10/18 05/10/18 05/10/18 05/10/18 06:20 07:32 07:44 08:35 Temp 97.7 97.7 Pulse 105 Resp 18 20 B/P (MAP) 132/83 (99) Pulse Ox 94 96 99 O2 Delivery Room Air Room Air Room Air Room Air Intake and Output 05/09/18 05/09/18 05/10/18 15:00 23:00 07:00 Intake Total 370 ml 450 ml 1650 ml Balance 370 ml 450 ml 1650 ml JAMES HURST MD May 10, 2018 09:53
[2018-05-10] MEDS: LORazepam 1 MG TABLET PO PRN (10:15)
[2018-05-10 10:38] VITALS: BP 116/63
[2018-05-10] MEDS: ANTI-COAG MONITOR BY PHARMACY. MC PRN (12:53)
[2018-05-10 15:38] VITALS: BP 112/66
[2018-05-10] MEDS ORDERED: WARFARIN 5 MG TABLET. PO ONE (16:00)
[2018-05-10 19:00] VITALS: BP 108/63
[2018-05-10] MEDS: ZOLPIDEM 5 MG TABLET. PO PRN (20:52)
[2018-05-10] MEDS: chlordiazePOXIDE HCL 25 MG CAPSULE PO PRN (20:53)
[2018-05-10 23:00] VITALS: BP 114/63
[2018-05-11] MEDS: MORPHINE SULFATE 2 MG/ML VIAL. IV PRN ×3 (01:00→09:09)
[2018-05-11 03:00] VITALS: BP 106/59
[2018-05-11 04:15] LABS: PROTHROMBIN TIME PATIENT 15.1 SEC (11.7-14.0)
[2018-05-11 07:00] VITALS: BP 97/51
[2018-05-11] MEDS: BUDESONIDE 0.5 MG/2 ML NEBU. NEB SCH ×2 (07:18→19:07)
[2018-05-11] MEDS: PANTOPRAZOLE 40 MG TABLET.DR. PO SCH (09:07)
[2018-05-11] MEDS: levETIRAcetam 500 MG TABLET PO SCH ×2 (09:07→21:21)
[2018-05-11] MEDS: THEOPHYLLINE 12HR ER 300 MG TAB.ER.12H. PO SCH ×2 (09:07→21:22)
[2018-05-11 11:00] VITALS: BP 118/69
[2018-05-11 15:00] VITALS: BP 115/69
--- NOTE | 2018-05-11 15:25 | PDOC ---
PROGRESS NOTES Chief Complaint Chief Complaint Postural tremor consistent with essential tremor Left leg DVT Possible seizure episodes, partial-complex. 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 Alcoholism, prior metabolic encephalopathy Substance use disorder myopathy, critical dz related right C7 radiculopathy. no central spinal stenosis SUB therapeutic INR - 1.6 on admit Self pay [employer] dependecne ETOH use - sober for weeks/mos now plan: cont coumadin, pharmacy dosing, likely need 10mg daily when dc inr daily, dc when 2-3. talked to SW, pt's mother pays him to go to motel. i told him need to see a doc for INR within 3ds after dc. decrease ativan. PTOT History of Present Illness History of Present Illness Left leg clinically and sonographically looks better severe home and financial issues, no insurance, cannot go home , Mother pays to live in a motel dced 1 week ago with coumadin 5mg daily for left leg dvt, INR back <2 with more leg swelling. pt was dced on Friday but not seen a doc till Friday had some fingers tremor yesterday, not today, INR 1.2 Vitals Vitals Vital Signs Date Time Temp Pulse Resp B/P (MAP) Pulse Ox O2 Delivery O2 Flow Rate FiO2 05/11/18 11:51 95 Room Air 05/11/18 11:00 97.8 78 18 118/69 (85) 97.8 Physical Exam General: Alert, Oriented X3, Cooperative, No acute distress, Other (very shaky and restless, left leg is markedly swollen and red and painful more than RT) Heart: Regular rate, Normal S1, Normal S2 Lungs: Clear, Other Abdomen: Normal bowel sounds, Soft, No tenderness, No hepatosplenomegaly, No masses Extremities: No clubbing, No cyanosis, Other (left leg markedly red swollen painful, no skin breakages, limited movement flexion because of pain and swelling) Skin: No rashes, No breakdown Labs LABS Laboratory Tests Test 05/11/18 02:55 Prothrombin Time 15.1 SEC (11.7-14.0) Prothromb Time International Ratio 1.2 (0.8-1.1) Comment Review of Relevant I have reviewed the following items wali (where applicable) has been applied. Labs Laboratory Tests Test 05/10/18 03:50 05/11/18 02:55 Prothrombin Time 15.0 SEC (11.7-14.0) 15.1 SEC (11.7-14.0) Prothromb Time International Ratio 1.2 (0.8-1.1) 1.2 (0.8-1.1) Laboratory Tests Test 05/11/18 02:55 Prothrombin Time 15.1 SEC (11.7-14.0) Prothromb Time International Ratio 1.2 (0.8-1.1) Medications Current Medications Ondansetron HCl (Zofran) 4 mg PRN Q6HRS PRN IV NAUSEA/VOMITING; Start at 18:30 Prochlorperazine Edisylate (Compazine) 10 mg PRN Q6HRS PRN IV NAUSEA/VOMITING; Start 05/08/18 at 18:30 Prochlorperazine (Compazine) 25 mg PRN Q12HR PRN [place] NAUSEA/VOMITING; Start at 18:30 Al Hydroxide/Mg Hydroxide (Mylanta Plus Xs) 30 ml PRN Q3HRS PRN PO HEARTBURN / GAS; Start 05/08/18 at 18:30 Calcium Carbonate/ Glycine (Tums) 500 mg PRN Q3HRS PRN PO UPSET STOMACH; Start 05/08/18 at 18:30 Zolpidem Tartrate (Ambien) 5 mg PRN QHS PRN PO INSOMNIA, MAY REPEAT IN 1HR; Start 05/08/18 at 18:30; Stop 05/08/18 at 19:10; Status DC Oxycodone HCl (Roxicodone) 5 mg PRN Q3HRS PRN PO BREAKTHROUGH PAIN Last administered on 05/10/18at 21:36; Start 05/08/18 at 18:30 Morphine Sulfate (Morphine Sulfate) 2 mg PRN Q2HR PRN IV PAIN Last administered on 05/10/18at 08:35; Start 05/08/18 at 18:30; Stop 05/10/18 at 09 :51; Status DC Acetaminophen (Tylenol) 650 mg PRN Q6HRS PRN PO Headaches, Temp > 101.5F; Start 05/08/18 at 18:30 Magnesium Hydroxide (Milk Of Magnesia) 2,400 mg PRN Q12HR PRN PO CONSTIPATION; Start 05/08/18 at 18:30 Bisacodyl (Dulcolax Supp) 10 mg PRN DAILY PRN [place] CONSTIPATION; Start 05/08/18 at 18:30 Clonidine HCl (Catapres) 0.1 mg PRN Q1HR PRN PO SBP > 180 or DBP > 100, MRX3; Start 05/08/18 at 18:30 Albuterol Sulfate (Ventolin Neb Soln) 2.5 mg PRN Q2HRS PRN NEB SHORTNESS OF BREATH; Start 05/08/18 at 18:45 Levetiracetam (Keppra) 500 mg BID PO Last administered on 05/11/18 09:07; Start 05/08/18 at 21:00 Non-Formulary Medication (Albuterol Sulfate (Proair Hfa Inhaler)) 1 puff PRN Q4HRS PRN INH SHORTNESS OF BREATH; Start 05/08/18 at 18:30; Status UNV Budesonide (Pulmicort) 0.5 mg RTBID NEB Last administered on 05/11/18 07:18; Start 05/08/18 at 20:00 Pantoprazole Sodium (Protonix) 40 mg DAILYAC PO Last administered on 09:07; Start 05/08/18 at 18:30 Theophylline (Theodur) 300 mg BID PO Last administered on 05/11/18 09:07; Start 05/08/18 at 21:00 Warfarin Sodium (Coumadin Per Pharmacy) 1 each PRN DAILY PRN MC SEE COMMENTS Last administered on 05/11/18at 13:27; Start 05/08/18 at 18:30 Enoxaparin Sodium (Lovenox 100mg Syringe) 90 mg Q12HR SQ Last administered on 05/11/18at 09:07; Start 05/08/18 at 21:00 Lorazepam (Ativan) 1 mg PRN Q6HRS PRN PO ANXIETY / AGITATION Last administered on 05/10/18at 10:15; Start 05/08/18 at 19:15 Lorazepam (Ativan) 2 mg PRN Q4HRS PRN IV ANXIETY / AGITATION Last administered on 05/10/18at 05:07; Start 05/08/18 at 19:15; Stop 05/10/18 at 09:51; Status DC Chlordiazepoxide (Librium) 50 mg PRN Q6HRS PRN PO ANXIETY / AGITATION Last administered on 05/10/18at 20:53; Start 05/08/18 at 19:15 Multivitamins 10 ml/Thiamine HCl 100 mg/Folic Acid 1 mg/Sodium Chloride 1,011.2 ml @ 1,000.088 mls/hr 1X ONCE IV Last administered on 05/08/18at 21:51; Start 05/08/18 at 20:00; Stop 05/08/18 at 21:00; Status DC Zolpidem Tartrate (Ambien) 5 mg PRN QHS PRN PO INSOMNIA Last administered on at 20:52; Start 05/08/18 at 19:15 Pharmacy Consult (C.diff Med Screen By Rx) 1 each 1X ONCE MC ; Start 05/08/18 at 21:15; Stop 05/08/18 at 21:16; Status Cancel Influenza Virus Vaccine (Afluria Trivalent [id number] Syringe) 0.5 ml ONCE ONCE VAX IM Last administered on 05/09/18at 09:00; Start 05/09/18 at 09:00; Stop 05/09/18 at 09:01; Status DC Info (Anti-Coagulation Monitoring By Pharmacy) 1 each PRN DAILY PRN MC SEE COMMENTS Last administered on 05/10/18at 12:53; Start 05/09/18 at 09:00 Warfarin Sodium (Coumadin) 7.5 mg 1X WARF ONCE PO Last administered on at 16:13; Start 05/09/18 at 16:00; Stop 05/09/18 at 16:01; Status DC Lorazepam (Ativan) 1 mg PRN Q4HRS PRN IV ANXIETY / AGITATION 3RD CHOICE Last administered on 05/11/18at 15:10; Start 05/10/18 at 10:00 Morphine Sulfate (Morphine Sulfate) 1 mg PRN Q4HRS PRN IV PAIN Last administered on 05/11/18at 09:09; Start 05/10/18 at 10:00 Warfarin Sodium (Coumadin) 10 mg 1X WARF ONCE PO Last administered on at 17:34; Start 05/10/18 at 16:00; Stop 05/10/18 at 16:01; Status DC Warfarin Sodium (Coumadin) 12 mg 1X WARF ONCE PO ; Start 05/11/18 at 16:00; Stop 05/11/18 at 16:01 Active Scripts Active Keppra (Levetiracetam) 500 Mg Tablet 1 Tab PO BID Warfarin Sodium 5 Mg Tablet 1 Tab PO DAILY Catapres (Clonidine Hcl) 0.1 Mg Tablet 0.1 Mg PO PRN Q1HR PRN 14 Days Withdrawal symptoms Reported Proair Hfa Inhaler (Albuterol Sulfate) 8.5 Gm Hfa.aer.ad 1 Puff INH PRN Q4HRS PRN Duoneb 0.5-3(2.5) Mg/3 Ml (Albuterol/Ipratropium) 3 Ml Ampul.neb 3 Ml NEB Q2HR PRN Symbicort 160-4.5 Mcg Inhaler (Budesonide/Formoterol Fumarate) 10.2 Gm Hfa.aer.ad 2 Puff IH BID Prilosec Otc (Omeprazole Magnesium) 20 Mg Tablet.dr 1 Tab PO DAILY Theophylline (Theophylline Anhydrous) 400 Mg Tablet.er 300 Mg PO BID Vitals/I & O Vital Sign - Last 24 Hours 05/10/18 05/10/18 05/10/18 05/10/18 15:38 16:01 17:34 19:00 Temp 97.6 97.7 97.6 97.7 Pulse 87 85 Resp 18 18 B/P (MAP) 112/66 (81) 108/63 (78) Pulse Ox 96 96 98 O2 Delivery Room Air Room Air Room Air Room Air 05/10/18 05/10/18 05/10/18 05/10/18 19:55 20:00 20:49 21:36 Resp 18 18 Pulse Ox 97 97 97 O2 Delivery Room Air Room Air Room Air Room Air 05/10/18 05/10/18 05/11/18 05/11/18 22:36 23:00 01:00 03:00 Temp 97.3 98.0 97.3 98.0 Pulse 74 86 Resp 18 18 18 18 B/P (MAP) 114/63 (80) 106/59 (75) Pulse Ox 97 97 97 98 O2 Delivery Room Air Room Air Room Air Room Air 05/11/18 05/11/18 05/11/18 05/11/18 05:02 05:32 07:00 07:18 Temp 97.7 97.7 Pulse 70 Resp 18 18 18 B/P (MAP) 97/51 (66) Pulse Ox 98 99 98 O2 Delivery Room Air Room Air Room Air 05/11/18 05/11/18 05/11/18 05/11/18 08:00 09:09 11:00 11:51 Temp 97.8 97.8 Pulse 78 Resp 18 B/P (MAP) 118/69 (85) Pulse Ox 95 95 O2 Delivery Room Air Room Air Room Air Room Air Intake and Output 05/10/18 05/10/18 05/11/18 15:00 23:00 07:00 Intake Total 120 ml 500 ml 1290 ml Balance 120 ml 500 ml 1290 ml BIGG NICHOLE MD May 11, 2018 15:25
[2018-05-11] MEDS ORDERED: WARFARIN 6 MG TABLET. PO ONE (16:00)
[2018-05-11 19:00] VITALS: BP 110/74
[2018-05-11] MEDS: LORazepam 0.5 MG TABLET PO PRN (21:21)
[2018-05-11] MEDS: ZOLPIDEM 5 MG TABLET. PO PRN (21:22)
[2018-05-11] MEDS: oxyCODONE/APAP 5/325 1 TAB TABLET PO PRN (21:23)
[2018-05-11 23:00] VITALS: BP 115/80
[2018-05-12 03:00] VITALS: BP 96/58
[2018-05-12] MEDS: LORazepam 0.5 MG TABLET PO PRN ×4 (03:32→22:49)
[2018-05-12] MEDS: oxyCODONE/APAP 5/325 1 TAB TABLET PO PRN ×4 (03:32→22:49)
[2018-05-12 04:40] LABS: BASO # 0.1 x10^3/uL (0.0-0.2); BASO % 1 % (0-3); EOS # 0.3 x10^3/uL (0.0-0.7); EOS % 5 % (0-3); HEMATOCRIT 32.9 % (39.0-53.0); HEMOGLOBIN 11.2 g/dL (13.0-17.5); LYMPH # 2.2 x10^3/uL (1.0-4.8); LYMPH % 42 % (24-48); MEAN CORPUSCULAR HEMOGLOBIN 27 pg (25-35); MEAN CORPUSCULAR HGB CONC 34 g/dL (31-37); MEAN CORPUSCULAR VOLUME 79 fL (79-100); MONO # 0.4 x10^3/uL (0.0-1.1); MONO % 7 % (0-9); NEUT # 2.4 x10^3uL (1.8-7.7); NEUT % 45 % (31-73); PLATELET COUNT 368 x10^3/uL (140-400); RED BLOOD COUNT 4.19 x10^6/uL (4.30-5.70); RED CELL DISTRIBUTION WIDTH 19.3 % (11.5-14.5); WHITE BLOOD COUNT 5.4 x10^3/uL (4.0-11.0)
[2018-05-12 04:57] LABS: CALCIUM 9.4 mg/dL (8.5-10.1); CREATININE 0.8 mg/dL (0.7-1.3); GFR 106.5; POTASSIUM 3.9 mmol/L (3.5-5.1)
[2018-05-12 07:00] VITALS: BP 118/72
[2018-05-12] MEDS: BUDESONIDE 0.5 MG/2 ML NEBU. NEB SCH ×2 (08:00→20:22)
[2018-05-12] MEDS: levETIRAcetam 500 MG TABLET PO SCH ×2 (10:09→20:24)
[2018-05-12] MEDS: PANTOPRAZOLE 40 MG TABLET.DR. PO SCH (10:09)
[2018-05-12] MEDS: THEOPHYLLINE 12HR ER 300 MG TAB.ER.12H. PO SCH ×2 (10:10→20:30)
[2018-05-12 11:00] VITALS: BP 110/65
--- NOTE | 2018-05-12 13:48 | PDOC ---
PROGRESS NOTES Chief Complaint Chief Complaint Postural tremor consistent with essential tremor Left leg DVT Possible seizure episodes, partial-complex. 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 Alcoholism, prior metabolic encephalopathy Substance use disorder myopathy, critical dz related right C7 radiculopathy. no central spinal stenosis SUB therapeutic INR - 1.6 on admit Self pay [employer] dependecne ETOH use - sober for weeks/mos now plan: cont coumadin, pharmacy dosing, likely need 10mg daily when dc inr daily, dc when 2-3. talked to SW, pt's mother pays him to go to motel. i told him need to see a doc for INR within 3ds after dc. decrease ativan. PTOT History of Present Illness History of Present Illness Left leg clinically and sonographically looks better severe home and financial issues, no insurance, cannot go home , Mother pays to live in a motel dced 1 week ago with coumadin 5mg daily for left leg dvt, INR back <2 with more leg swelling. pt was dced on Friday but not seen a doc till Friday had some fingers tremor yesterday, not today, INR 1.2 Vitals Vitals Vital Signs Date Time Temp Pulse Resp B/P (MAP) Pulse Ox O2 Delivery O2 Flow Rate FiO2 05/12/18 11:11 20 96 Room Air 05/12/18 11:00 97.6 89 110/65 (80) 97.6 Physical Exam General: Alert, Oriented X3, Cooperative, No acute distress, Other (very shaky and restless, left leg is markedly swollen and red and painful more than RT) Heart: Regular rate, Normal S1, Normal S2 Lungs: Clear, Other Abdomen: Normal bowel sounds, Soft, No tenderness, No hepatosplenomegaly, No masses Extremities: No clubbing, No cyanosis, Other (left leg markedly red swollen painful, no skin breakages, limited movement flexion because of pain and swelling) Skin: No rashes, No breakdown Labs LABS Laboratory Tests Test 05/12/18 03:50 White Blood Count 5.4 x10^3/uL (4.0-11.0) Red Blood Count 4.19 x10^6/uL (4.30-5.70) Hemoglobin 11.2 g/dL (13.0-17.5) Hematocrit 32.9 % (39.0-53.0) Mean Corpuscular Volume 79 fL (79-100) Mean Corpuscular Hemoglobin 27 pg (25-35) Mean Corpuscular Hemoglobin Concent 34 g/dL (31-37) Red Cell Distribution Width 19.3 % (11.5-14.5) Platelet Count 368 x10^3/uL (140-400) Neutrophils (%) (Auto) 45 % (31-73) Lymphocytes (%) (Auto) 42 % (24-48) Monocytes (%) (Auto) 7 % (0-9) Eosinophils (%) (Auto) 5 % (0-3) Basophils (%) (Auto) 1 % (0-3) Neutrophils # (Auto) 2.4 x10^3uL (1.8-7.7) Lymphocytes # (Auto) 2.2 x10^3/uL (1.0-4.8) Monocytes # (Auto) 0.4 x10^3/uL (0.0-1.1) Eosinophils # (Auto) 0.3 x10^3/uL (0.0-0.7) Basophils # (Auto) 0.1 x10^3/uL (0.0-0.2) Prothrombin Time 16.0 SEC (11.7-14.0) Prothromb Time International Ratio 1.3 (0.8-1.1) Sodium Level 139 mmol/L (136-145) Potassium Level 3.9 mmol/L (3.5-5.1) Chloride Level 102 mmol/L (98-107) Carbon Dioxide Level 27 mmol/L (21-32) Anion Gap 10 (6-14) Blood Urea Nitrogen 20 mg/dL (8-26) Creatinine 0.8 mg/dL (0.7-1.3) Estimated GFR (Cockcroft-Gault) 106.5 Glucose Level 132 mg/dL (70-99) Calcium Level 9.4 mg/dL (8.5-10.1) Comment Review of Relevant I have reviewed the following items wali (where applicable) has been applied. Labs Laboratory Tests Test 05/11/18 02:55 05/12/18 03:50 Prothrombin Time 15.1 SEC (11.7-14.0) 16.0 SEC (11.7-14.0) Prothromb Time International Ratio 1.2 (0.8-1.1) 1.3 (0.8-1.1) White Blood Count 5.4 x10^3/uL (4.0-11.0) Red Blood Count 4.19 x10^6/uL (4.30-5.70) Hemoglobin 11.2 g/dL (13.0-17.5) Hematocrit 32.9 % (39.0-53.0) Mean Corpuscular Volume 79 fL (79-100) Mean Corpuscular Hemoglobin 27 pg (25-35) Mean Corpuscular Hemoglobin Concent 34 g/dL (31-37) Red Cell Distribution Width 19.3 % (11.5-14.5) Platelet Count 368 x10^3/uL (140-400) Neutrophils (%) (Auto) 45 % (31-73) Lymphocytes (%) (Auto) 42 % (24-48) Monocytes (%) (Auto) 7 % (0-9) Eosinophils (%) (Auto) 5 % (0-3) Basophils (%) (Auto) 1 % (0-3) Neutrophils # (Auto) 2.4 x10^3uL (1.8-7.7) Lymphocytes # (Auto) 2.2 x10^3/uL (1.0-4.8) Monocytes # (Auto) 0.4 x10^3/uL (0.0-1.1) Eosinophils # (Auto) 0.3 x10^3/uL (0.0-0.7) Basophils # (Auto) 0.1 x10^3/uL (0.0-0.2) Sodium Level 139 mmol/L (136-145) Potassium Level 3.9 mmol/L (3.5-5.1) Chloride Level 102 mmol/L (98-107) Carbon Dioxide Level 27 mmol/L (21-32) Anion Gap 10 (6-14) Blood Urea Nitrogen 20 mg/dL (8-26) Creatinine 0.8 mg/dL (0.7-1.3) Estimated GFR (Cockcroft-Gault) 106.5 Glucose Level 132 mg/dL (70-99) Calcium Level 9.4 mg/dL (8.5-10.1) Laboratory Tests Test 05/12/18 03:50 White Blood Count 5.4 x10^3/uL (4.0-11.0) Red Blood Count 4.19 x10^6/uL (4.30-5.70) Hemoglobin 11.2 g/dL (13.0-17.5) Hematocrit 32.9 % (39.0-53.0) Mean Corpuscular Volume 79 fL (79-100) Mean Corpuscular Hemoglobin 27 pg (25-35) Mean Corpuscular Hemoglobin Concent 34 g/dL (31-37) Red Cell Distribution Width 19.3 % (11.5-14.5) Platelet Count 368 x10^3/uL (140-400) Neutrophils (%) (Auto) 45 % (31-73) Lymphocytes (%) (Auto) 42 % (24-48) Monocytes (%) (Auto) 7 % (0-9) Eosinophils (%) (Auto) 5 % (0-3) Basophils (%) (Auto) 1 % (0-3) Neutrophils # (Auto) 2.4 x10^3uL (1.8-7.7) Lymphocytes # (Auto) 2.2 x10^3/uL (1.0-4.8) Monocytes # (Auto) 0.4 x10^3/uL (0.0-1.1) Eosinophils # (Auto) 0.3 x10^3/uL (0.0-0.7) Basophils # (Auto) 0.1 x10^3/uL (0.0-0.2) Prothrombin Time 16.0 SEC (11.7-14.0) Prothromb Time International Ratio 1.3 (0.8-1.1) Sodium Level 139 mmol/L (136-145) Potassium Level 3.9 mmol/L (3.5-5.1) Chloride Level 102 mmol/L (98-107) Carbon Dioxide Level 27 mmol/L (21-32) Anion Gap 10 (6-14) Blood Urea Nitrogen 20 mg/dL (8-26) Creatinine 0.8 mg/dL (0.7-1.3) Estimated GFR (Cockcroft-Gault) 106.5 Glucose Level 132 mg/dL (70-99) Calcium Level 9.4 mg/dL (8.5-10.1) Medications Current Medications Ondansetron HCl (Zofran) 4 mg PRN Q6HRS PRN IV NAUSEA/VOMITING, 1ST CHOICE; Start 05/08/18 at 18:30 Prochlorperazine Edisylate (Compazine) 10 mg PRN Q6HRS PRN IV NAUSEA/VOMITING, 2ND CHOICE; Start 05/08/18 at 18:30 Prochlorperazine (Compazine) 25 mg PRN Q12HR PRN [place] NAUSEA/VOMITING; Start at 18:30 Al Hydroxide/Mg Hydroxide (Mylanta Plus Xs) 30 ml PRN Q3HRS PRN PO HEARTBURN / GAS; Start 05/08/18 at 18:30 Calcium Carbonate/ Glycine (Tums) 500 mg PRN Q3HRS PRN PO UPSET STOMACH; Start 05/08/18 at 18:30 Zolpidem Tartrate (Ambien) 5 mg PRN QHS PRN PO INSOMNIA, MAY REPEAT IN 1HR; Start 05/08/18 at 18:30; Stop 05/08/18 at 19:10; Status DC Oxycodone HCl (Roxicodone) 5 mg PRN Q3HRS PRN PO BREAKTHROUGH PAIN Last administered on 05/10/18at 21:36; Start 05/08/18 at 18:30 Morphine Sulfate (Morphine Sulfate) 2 mg PRN Q2HR PRN IV PAIN Last administered on 05/10/18at 08:35; Start 05/08/18 at 18:30; Stop 05/10/18 at 09 :51; Status DC Acetaminophen (Tylenol) 650 mg PRN Q6HRS PRN PO Headaches, Temp > 101.5F; Start 05/08/18 at 18:30 Magnesium Hydroxide (Milk Of Magnesia) 2,400 mg PRN Q12HR PRN PO CONSTIPATION; Start 05/08/18 at 18:30 Bisacodyl (Dulcolax Supp) 10 mg PRN DAILY PRN [place] CONSTIPATION; Start 05/08/18 at 18:30 Clonidine HCl (Catapres) 0.1 mg PRN Q1HR PRN PO SBP > 180 or DBP > 100, MRX3; Start 05/08/18 at 18:30 Albuterol Sulfate (Ventolin Neb Soln) 2.5 mg PRN Q2HRS PRN NEB SHORTNESS OF BREATH; Start 05/08/18 at 18:45 Levetiracetam (Keppra) 500 mg BID PO Last administered on 05/12/18 10:09; Start 05/08/18 at 21:00 Non-Formulary Medication (Albuterol Sulfate (Proair Hfa Inhaler)) 1 puff PRN Q4HRS PRN INH SHORTNESS OF BREATH; Start 05/08/18 at 18:30; Status UNV Budesonide (Pulmicort) 0.5 mg RTBID NEB Last administered on 05/12/18 08:00; Start 05/08/18 at 20:00 Pantoprazole Sodium (Protonix) 40 mg DAILYAC PO Last administered on 10:09; Start 05/08/18 at 18:30 Theophylline (Theodur) 300 mg BID PO Last administered on 05/12/18 10:10; Start 05/08/18 at 21:00 Warfarin Sodium (Coumadin Per Pharmacy) 1 each PRN DAILY PRN [facility] SEE COMMENTS Last administered on 05/12/18 13:40; Start 05/08/18 at 18:30 Enoxaparin Sodium (Lovenox 100mg Syringe) 90 mg Q12HR SQ Last administered on 05/12/18at 10:10; Start 05/08/18 at 21:00 Lorazepam (Ativan) 1 mg PRN Q6HRS PRN PO ANXIETY / AGITATION Last administered on 05/10/18at 10:15; Start 05/08/18 at 19:15; Stop 05/11/18 at 15:23; Status DC Lorazepam (Ativan) 2 mg PRN Q4HRS PRN IV ANXIETY / AGITATION Last administered on 05/10/18at 05:07; Start 05/08/18 at 19:15; Stop 05/10/18 at 09:51; Status DC Chlordiazepoxide (Librium) 50 mg PRN Q6HRS PRN PO ANXIETY / AGITATION, 2ND CHOI Last administered on 05/10/18at 20:53; Start 05/08/18 at 19:15 Multivitamins 10 ml/Thiamine HCl 100 mg/Folic Acid 1 mg/Sodium Chloride 1,011.2 ml @ 1,000.088 mls/hr 1X ONCE IV Last administered on 05/08/18at 21:51; Start 05/08/18 at 20:00; Stop 05/08/18 at 21:00; Status DC Zolpidem Tartrate (Ambien) 5 mg PRN QHS PRN PO INSOMNIA Last administered on at 21:22; Start 05/08/18 at 19:15 Pharmacy Consult (C.diff Med Screen By Rx) 1 each 1X ONCE MC ; Start 05/08/18 at 21:15; Stop 05/08/18 at 21:16; Status Cancel Influenza Virus Vaccine (Afluria Trivalent [id number] Syringe) 0.5 ml ONCE ONCE VAX IM Last administered on 05/09/18at 09:00; Start 05/09/18 at 09:00; Stop 05/09/18 at 09:01; Status DC Info (Anti-Coagulation Monitoring By Pharmacy) 1 each PRN DAILY PRN [facility] SEE COMMENTS Last administered on 05/10/18at 12:53; Start 05/09/18 at 09:00 Warfarin Sodium (Coumadin) 7.5 mg 1X WARF ONCE PO Last administered on at 16:13; Start 05/09/18 at 16:00; Stop 05/09/18 at 16:01; Status DC Lorazepam (Ativan) 1 mg PRN Q4HRS PRN IV ANXIETY / AGITATION 3RD CHOICE Last administered on 05/11/18at 15:10; Start 05/10/18 at 10:00; Stop 05/11/18 at 15 :23; Status DC Morphine Sulfate (Morphine Sulfate) 1 mg PRN Q4HRS PRN IV PAIN Last administered on 05/11/18at 09:09; Start 05/10/18 at 10:00; Stop 05/12/18 at 01 :06; Status DC Warfarin Sodium (Coumadin) 10 mg 1X WARF ONCE PO Last administered on at 17:34; Start 05/10/18 at 16:00; Stop 05/10/18 at 16:01; Status DC Warfarin Sodium (Coumadin) 12 mg 1X WARF ONCE PO Last administered on at 17:09; Start 05/11/18 at 16:00; Stop 05/11/18 at 16:01; Status DC Lorazepam (Ativan) 0.5 mg PRN Q6HRS PRN PO ANXIETY / AGITATION, 1ST CHOIC Last administered on 05/12/18at 10:11; Start 05/11/18 at 15:30 Oxycodone/ Acetaminophen (Percocet 5/325) 1 tab PRN Q6HRS PRN PO MOD TO SEVERE PAIN Last administered on 05/12/18at 10:11; Start 05/11/18 at 15:30 Warfarin Sodium (Coumadin) 15 mg 1X WARF ONCE PO ; Start 05/12/18 at 16:00; Stop 05/12/18 at 16:01 Active Scripts Active Keppra (Levetiracetam) 500 Mg Tablet 1 Tab PO BID Warfarin Sodium 5 Mg Tablet 1 Tab PO DAILY Catapres (Clonidine Hcl) 0.1 Mg Tablet 0.1 Mg PO PRN Q1HR PRN 14 Days Withdrawal symptoms Reported Proair Hfa Inhaler (Albuterol Sulfate) 8.5 Gm Hfa.aer.ad 1 Puff INH PRN Q4HRS PRN Duoneb 0.5-3(2.5) Mg/3 Ml (Albuterol/Ipratropium) 3 Ml Ampul.neb 3 Ml NEB Q2HR PRN Symbicort 160-4.5 Mcg Inhaler (Budesonide/Formoterol Fumarate) 10.2 Gm Hfa.aer.ad 2 Puff IH BID Prilosec Otc (Omeprazole Magnesium) 20 Mg Tablet.dr 1 Tab PO DAILY Theophylline (Theophylline Anhydrous) 400 Mg Tablet.er 300 Mg PO BID Vitals/I & O Vital Sign - Last 24 Hours 05/11/18 05/11/18 05/11/18 05/11/18 15:00 19:00 19:07 20:00 Temp 97.6 97.5 97.6 97.5 Pulse 89 87 Resp 18 B/P (MAP) 115/69 (84) 110/74 (86) Pulse Ox 98 95 97 O2 Delivery Room Air Room Air Room Air Room Air 05/11/18 05/11/18 05/12/18 05/12/18 21:23 23:00 03:00 03:32 Temp 98.0 97.3 98.0 97.3 Pulse 80 80 Resp 18 18 B/P (MAP) 115/80 (92) 96/58 (71) Pulse Ox 97 99 97 99 O2 Delivery Room Air Room Air Room Air Room Air 05/12/18 05/12/18 05/12/18 05/12/18 07:00 07:35 08:00 10:11 Temp 97.4 97.4 Pulse 70 Resp 16 20 B/P (MAP) 118/72 (87) Pulse Ox 96 97 97 O2 Delivery Room Air Room Air Room Air Room Air 05/12/18 05/12/18 11:00 11:11 Temp 97.6 97.6 Pulse 89 Resp 18 20 B/P (MAP) 110/65 (80) Pulse Ox 96 96 O2 Delivery Room Air Room Air Intake and Output 05/11/18 05/11/18 05/12/18 15:00 23:00 07:00 Intake Total 240 ml 720 ml 840 ml Balance 240 ml 720 ml 840 ml BIGG NICHOLE MD May 12, 2018 13:47
[2018-05-12 15:00] VITALS: BP 142/85
[2018-05-12] MEDS ORDERED: WARFARIN 5 MG TABLET. PO ONE (16:00)
[2018-05-12 19:00] VITALS: BP 126/81
[2018-05-12] MEDS: ZOLPIDEM 5 MG TABLET. PO PRN (20:24)
[2018-05-12] MEDS: oxyCODONE IR 5 MG TABLET PO PRN (20:26)
[2018-05-12 23:00] VITALS: BP 129/78
[2018-05-13 03:00] VITALS: BP 121/69
[2018-05-13] MEDS: oxyCODONE/APAP 5/325 1 TAB TABLET PO PRN ×3 (06:23→18:43)
[2018-05-13] MEDS: PANTOPRAZOLE 40 MG TABLET.DR. PO SCH (06:23)
[2018-05-13] MEDS: LORazepam 0.5 MG TABLET PO PRN ×3 (06:23→18:43)
[2018-05-13 07:00] VITALS: BP 111/62
[2018-05-13] MEDS: BUDESONIDE 0.5 MG/2 ML NEBU. NEB SCH (07:43)
[2018-05-13] MEDS: THEOPHYLLINE 12HR ER 300 MG TAB.ER.12H. PO SCH ×2 (08:21→20:31)
[2018-05-13] MEDS: levETIRAcetam 500 MG TABLET PO SCH ×2 (08:21→20:31)
[2018-05-13 09:22] LABS: PROTHROMBIN TIME PATIENT 18.2 SEC (11.7-14.0)
[2018-05-13 11:00] VITALS: BP 115/65
[2018-05-13] MEDS: ANTI-COAG MONITOR BY PHARMACY. MC PRN (13:59)
--- NOTE | 2018-05-13 14:00 | PDOC ---
PROGRESS NOTES Chief Complaint Chief Complaint Postural tremor consistent with essential tremor Left leg DVT Possible seizure episodes, partial-complex. 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 Alcoholism, prior metabolic encephalopathy Substance use disorder myopathy, critical dz related right C7 radiculopathy. no central spinal stenosis SUB therapeutic INR - 1.6 on admit Self pay [employer] dependecne ETOH use - sober for weeks/mos now plan: cont coumadin, pharmacy dosing inr daily, dc when 2-3. talked to SW, pt's mother pays him to go to motel. i told him need to see a doc for INR within 3ds after dc. decrease ativan. PTOT History of Present Illness History of Present Illness Left leg clinically and sonographically looks better severe home and financial issues, no insurance, cannot go home , Mother pays to live in a motel dced 1 week ago with coumadin 5mg daily for left leg dvt, INR back <2 with more leg swelling. pt was dced on Friday but not seen a doc till Friday left leg still swelling, but better compared to admission as per pt, INR 1.6 Vitals Vitals Vital Signs Date Time Temp Pulse Resp B/P (MAP) Pulse Ox O2 Delivery O2 Flow Rate FiO2 05/13/18 13:38 20 96 Room Air 05/13/18 11:00 97.9 73 115/65 (82) 97.9 Physical Exam General: Alert, Oriented X3, Cooperative, No acute distress, Other (very shaky and restless, left leg is markedly swollen and red and painful more than RT) Heart: Regular rate, Normal S1, Normal S2 Lungs: Clear, Other Abdomen: Normal bowel sounds, Soft, No tenderness, No hepatosplenomegaly, No masses Extremities: No clubbing, No cyanosis, Other (left leg markedly red swollen painful, no skin breakages, limited movement flexion because of pain and swelling) Skin: No rashes, No breakdown Labs LABS Laboratory Tests Test 05/13/18 08:20 Prothrombin Time 18.2 SEC (11.7-14.0) Prothromb Time International Ratio 1.6 (0.8-1.1) Comment Review of Relevant I have reviewed the following items wali (where applicable) has been applied. Labs Laboratory Tests Test 05/12/18 03:50 05/13/18 08:20 White Blood Count 5.4 x10^3/uL (4.0-11.0) Red Blood Count 4.19 x10^6/uL (4.30-5.70) Hemoglobin 11.2 g/dL (13.0-17.5) Hematocrit 32.9 % (39.0-53.0) Mean Corpuscular Volume 79 fL (79-100) Mean Corpuscular Hemoglobin 27 pg (25-35) Mean Corpuscular Hemoglobin Concent 34 g/dL (31-37) Red Cell Distribution Width 19.3 % (11.5-14.5) Platelet Count 368 x10^3/uL (140-400) Neutrophils (%) (Auto) 45 % (31-73) Lymphocytes (%) (Auto) 42 % (24-48) Monocytes (%) (Auto) 7 % (0-9) Eosinophils (%) (Auto) 5 % (0-3) Basophils (%) (Auto) 1 % (0-3) Neutrophils # (Auto) 2.4 x10^3uL (1.8-7.7) Lymphocytes # (Auto) 2.2 x10^3/uL (1.0-4.8) Monocytes # (Auto) 0.4 x10^3/uL (0.0-1.1) Eosinophils # (Auto) 0.3 x10^3/uL (0.0-0.7) Basophils # (Auto) 0.1 x10^3/uL (0.0-0.2) Prothrombin Time 16.0 SEC (11.7-14.0) 18.2 SEC (11.7-14.0) Prothromb Time International Ratio 1.3 (0.8-1.1) 1.6 (0.8-1.1) Sodium Level 139 mmol/L (136-145) Potassium Level 3.9 mmol/L (3.5-5.1) Chloride Level 102 mmol/L (98-107) Carbon Dioxide Level 27 mmol/L (21-32) Anion Gap 10 (6-14) Blood Urea Nitrogen 20 mg/dL (8-26) Creatinine 0.8 mg/dL (0.7-1.3) Estimated GFR (Cockcroft-Gault) 106.5 Glucose Level 132 mg/dL (70-99) Calcium Level 9.4 mg/dL (8.5-10.1) Laboratory Tests Test 10/31/18 08:20 Prothrombin Time 18.2 SEC (11.7-14.0) Prothromb Time International Ratio 1.6 (0.8-1.1) Medications Current Medications Ondansetron HCl (Zofran) 4 mg PRN Q6HRS PRN IV NAUSEA/VOMITING, 1ST CHOICE; Start 05/08/18 at 18:30 Prochlorperazine Edisylate (Compazine) 10 mg PRN Q6HRS PRN IV NAUSEA/VOMITING, 2ND CHOICE; Start 05/08/18 at 18:30 Prochlorperazine (Compazine) 25 mg PRN Q12HR PRN [place] NAUSEA/VOMITING; Start at 18:30 Al Hydroxide/Mg Hydroxide (Mylanta Plus Xs) 30 ml PRN Q3HRS PRN PO HEARTBURN / GAS; Start 05/08/18 at 18:30 Calcium Carbonate/ Glycine (Tums) 500 mg PRN Q3HRS PRN PO UPSET STOMACH; Start 05/08/18 at 18:30 Zolpidem Tartrate (Ambien) 5 mg PRN QHS PRN PO INSOMNIA, MAY REPEAT IN 1HR; Start 05/08/18 at 18:30; Stop 05/08/18 at 19:10; Status DC Oxycodone HCl (Roxicodone) 5 mg PRN Q3HRS PRN PO BREAKTHROUGH PAIN Last administered on 05/12/18at 20:26; Start 05/08/18 at 18:30 Morphine Sulfate (Morphine Sulfate) 2 mg PRN Q2HR PRN IV PAIN Last administered on 05/10/18at 08:35; Start 05/08/18 at 18:30; Stop 05/10/18 at 09 :51; Status DC Acetaminophen (Tylenol) 650 mg PRN Q6HRS PRN PO Headaches, Temp > 101.5F; Start 05/08/18 at 18:30 Magnesium Hydroxide (Milk Of Magnesia) 2,400 mg PRN Q12HR PRN PO CONSTIPATION; Start 05/08/18 at 18:30 Bisacodyl (Dulcolax Supp) 10 mg PRN DAILY PRN [place] CONSTIPATION; Start 05/08/18 at 18:30 Clonidine HCl (Catapres) 0.1 mg PRN Q1HR PRN PO SBP > 180 or DBP > 100, MRX3; Start 05/08/18 at 18:30 Albuterol Sulfate (Ventolin Neb Soln) 2.5 mg PRN Q2HRS PRN NEB SHORTNESS OF BREATH; Start 05/08/18 at 18:45 Levetiracetam (Keppra) 500 mg BID PO Last administered on 05/13/18 08:21; Start 05/08/18 at 21:00 Non-Formulary Medication (Albuterol Sulfate (Proair Hfa Inhaler)) 1 puff PRN Q4HRS PRN INH SHORTNESS OF BREATH; Start 05/08/18 at 18:30; Status UNV Budesonide (Pulmicort) 0.5 mg RTBID NEB Last administered on 05/13/18 07:43; Start 05/08/18 at 20:00 Pantoprazole Sodium (Protonix) 40 mg DAILYAC PO Last administered on 06:23; Start 05/08/18 at 18:30 Theophylline (Theodur) 300 mg BID PO Last administered on 05/13/18 08:21; Start 05/08/18 at 21:00 Warfarin Sodium (Coumadin Per Pharmacy) 1 each PRN DAILY PRN [facility] SEE COMMENTS Last administered on 05/12/18 13:40; Start 05/08/18 at 18:30 Enoxaparin Sodium (Lovenox 100mg Syringe) 90 mg Q12HR SQ Last administered on 05/13/18 08:22; Start 05/08/18 at 21:00 Lorazepam (Ativan) 1 mg PRN Q6HRS PRN PO ANXIETY / AGITATION Last administered on 05/10/18at 10:15; Start 05/08/18 at 19:15; Stop 05/11/18 at 15:23; Status DC Lorazepam (Ativan) 2 mg PRN Q4HRS PRN IV ANXIETY / AGITATION Last administered on 05/10/18at 05:07; Start 05/08/18 at 19:15; Stop 05/10/18 at 09:51; Status DC Chlordiazepoxide (Librium) 50 mg PRN Q6HRS PRN PO ANXIETY / AGITATION, 2ND CHOIC Last administered on 05/10/18at 20:53; Start 05/08/18 at 19:15 Multivitamins 10 ml/Thiamine HCl 100 mg/Folic Acid 1 mg/Sodium Chloride 1,011.2 ml @ 1,000.088 mls/hr 1X ONCE IV Last administered on 05/08/18at 21:51; Start 05/08/18 at 20:00; Stop 05/08/18 at 21:00; Status DC Zolpidem Tartrate (Ambien) 5 mg PRN QHS PRN PO INSOMNIA Last administered on at 20:24; Start 05/08/18 at 19:15 Pharmacy Consult (C.diff Med Screen By Rx) 1 each 1X ONCE MC ; Start 05/08/18 at 21:15; Stop 05/08/18 at 21:16; Status Cancel Influenza Virus Vaccine (Afluria Trivalent [id number] Syringe) 0.5 ml ONCE ONCE VAX IM Last administered on 05/09/18at 09:00; Start 05/09/18 at 09:00; Stop 05/09/18 at 09:01; Status DC Info (Anti-Coagulation Monitoring By Pharmacy) 1 each PRN DAILY PRN [facility] SEE COMMENTS Last administered on 05/10/18at 12:53; Start 05/09/18 at 09:00 Warfarin Sodium (Coumadin) 7.5 mg 1X WARF ONCE PO Last administered on at 16:13; Start 05/09/18 at 16:00; Stop 05/09/18 at 16:01; Status DC Lorazepam (Ativan) 1 mg PRN Q4HRS PRN IV ANXIETY / AGITATION 3RD CHOICE Last administered on 05/11/18at 15:10; Start 05/10/18 at 10:00; Stop 05/11/18 at 15 :23; Status DC Morphine Sulfate (Morphine Sulfate) 1 mg PRN Q4HRS PRN IV PAIN Last administered on 05/11/18at 09:09; Start 05/10/18 at 10:00; Stop 05/12/18 at 01 :06; Status DC Warfarin Sodium (Coumadin) 10 mg 1X WARF ONCE PO Last administered on at 17:34; Start 05/10/18 at 16:00; Stop 05/10/18 at 16:01; Status DC Warfarin Sodium (Coumadin) 12 mg 1X WARF ONCE PO Last administered on at 17:09; Start 05/11/18 at 16:00; Stop 05/11/18 at 16:01; Status DC Lorazepam (Ativan) 0.5 mg PRN Q6HRS PRN PO ANXIETY / AGITATION, 1ST CHOIC Last administered on 05/13/18at 12:37; Start 05/11/18 at 15:30 Oxycodone/ Acetaminophen (Percocet 5/325) 1 tab PRN Q6HRS PRN PO MOD TO SEVERE PAIN Last administered on 05/13/18at 12:38; Start 05/11/18 at 15:30 Warfarin Sodium (Coumadin) 15 mg 1X WARF ONCE PO Last administered on at 16:11; Start 05/12/18 at 16:00; Stop 05/12/18 at 16:01; Status DC Warfarin Sodium (Coumadin) 15 mg 1X WARF ONCE PO ; Start 05/13/18 at 16:00; Stop 05/13/18 at 16:01 Active Scripts Active Keppra (Levetiracetam) 500 Mg Tablet 1 Tab PO BID Warfarin Sodium 5 Mg Tablet 1 Tab PO DAILY Catapres (Clonidine Hcl) 0.1 Mg Tablet 0.1 Mg PO PRN Q1HR PRN 14 Days Withdrawal symptoms Reported Proair Hfa Inhaler (Albuterol Sulfate) 8.5 Gm Hfa.aer.ad 1 Puff INH PRN Q4HRS PRN Duoneb 0.5-3(2.5) Mg/3 Ml (Albuterol/Ipratropium) 3 Ml Ampul.neb 3 Ml NEB Q2HR PRN Symbicort 160-4.5 Mcg Inhaler (Budesonide/Formoterol Fumarate) 10.2 Gm Hfa.aer.ad 2 Puff IH BID Prilosec Otc (Omeprazole Magnesium) 20 Mg Tablet.dr 1 Tab PO DAILY Theophylline (Theophylline Anhydrous) 400 Mg Tablet.er 300 Mg PO BID Vitals/I & O Vital Sign - Last 24 Hours 05/12/18 05/12/18 05/12/18 05/12/18 15:00 16:13 19:00 19:47 Temp 97.8 97.7 97.8 97.7 Pulse 89 81 Resp 18 20 18 B/P (MAP) 142/85 (104) 126/81 (96) Pulse Ox 96 96 97 O2 Delivery Room Air Room Air Room Air Room Air 05/12/18 05/12/18 05/12/18 05/12/18 20:23 20:26 21:26 22:49 Resp 18 18 18 Pulse Ox 96 96 96 O2 Delivery Room Air Room Air Room Air Room Air 05/12/18 05/13/18 05/13/18 05/13/18 23:00 03:00 06:23 07:00 Temp 97.7 97.9 97.9 97.7 97.9 97.9 Pulse 61 73 71 Resp 18 18 18 18 B/P (MAP) 129/78 (95) 121/69 (86) 111/62 (78) Pulse Ox 97 98 98 96 O2 Delivery Room Air Room Air Room Air Room Air 05/13/18 05/13/18 05/13/18 05/13/18 07:45 08:00 11:00 12:38 Temp 97.9 97.9 Pulse 73 Resp 18 20 B/P (MAP) 115/65 (82) Pulse Ox 98 96 96 O2 Delivery Room Air Room Air Room Air Room Air 05/13/18 13:38 Resp 20 Pulse Ox 96 O2 Delivery Room Air Intake and Output 05/12/18 05/12/18 05/13/18 15:00 23:00 07:00 Intake Total 480 ml 840 ml 1600 ml Balance 480 ml 840 ml 1600 ml BIGG NICHOLE MD May 13, 2018 14:00
[2018-05-13 15:00] VITALS: BP 120/71
[2018-05-13] MEDS ORDERED: WARFARIN 5 MG TABLET. PO ONE (16:00)
[2018-05-13] MEDS ORDERED: diphenhydrAMINE HCL 25 MG CAPSULE PO PRN (17:30)
[2018-05-13 19:00] VITALS: BP 114/73
[2018-05-13] MEDS: oxyCODONE IR 5 MG TABLET PO PRN (20:30)
[2018-05-13] MEDS: ZOLPIDEM 5 MG TABLET. PO PRN (20:30)
[2018-05-13 23:00] VITALS: BP 111/66
[2018-05-14] MEDS: LORazepam 0.5 MG TABLET PO PRN ×2 (01:52→10:47)
[2018-05-14 03:00] VITALS: BP 107/61
[2018-05-14 06:10] LABS: PROTHROMBIN TIME PATIENT 21.8 SEC (11.7-14.0)
[2018-05-14 07:00] VITALS: BP 120/67
[2018-05-14] MEDS: BUDESONIDE 0.5 MG/2 ML NEBU. NEB SCH ×2 (08:04→08:36)
--- NOTE | 2018-05-14 08:06 | PDOC ---
PROGRESS NOTES Chief Complaint Chief Complaint Postural tremor consistent with essential tremor Left leg DVT Possible seizure episodes, partial-complex. 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 Alcoholism, prior metabolic encephalopathy Substance use disorder myopathy, critical dz related right C7 radiculopathy. no central spinal stenosis SUB therapeutic INR - 1.6 on admit Self pay [facility] dependecne ETOH use - sober for weeks/mos now History of Present Illness History of Present Illness Left leg clinically and sonographically looks better severe home and financial issues, no insurance, cannot go home , Mother pays to live in a motel dced 1 week ago with coumadin 5mg daily for left leg dvt, INR back <2 with more leg swelling. pt was dced on Friday but not seen a doc till Friday left leg still swelling, but better compared to admission as per pt, INR 1.6 Postural tremor consistent with essential tremor Left leg DVT Possible seizure episodes, partial-complex. 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 Alcoholism, prior metabolic encephalopathy Substance use disorder myopathy, critical dz related right C7 radiculopathy. no central spinal stenosis SUB therapeutic INR - 1.6 on admit Self pay [facility] depend[employer]ne ETOH use - sober for weeks/mos now plan: cont coumadin, pharmacy dosing inr daily, dc when 2-3. talked to SW, pt's mother pays him to go to motel. i told him need to see a doc for INR within 3ds after dc. decrease ativan. PTOT Vitals Vitals Vital Signs Date Time Temp Pulse Resp B/P (MAP) Pulse Ox O2 Delivery O2 Flow Rate FiO2 05/14/18 03:00 98.8 72 18 107/61 (76) 97 Room Air 98.8 Physical Exam General: Alert, Oriented X3, Cooperative, No acute distress, Other (very shaky and restless, left leg is markedly swollen and red and painful more than RT) Heart: Regular rate, Normal S1, Normal S2 Lungs: Clear, Other Abdomen: Normal bowel sounds, Soft, No tenderness, No hepatosplenomegaly, No masses Extremities: No clubbing, No cyanosis, Other (left leg markedly red swollen painful, no skin breakages, limited movement flexion because of pain and swelling) Skin: No rashes, No breakdown Labs LABS Laboratory Tests Test 05/13/18 08:20 05/14/18 04:20 Prothrombin Time 18.2 SEC (11.7-14.0) 21.8 SEC (11.7-14.0) Prothromb Time International Ratio 1.6 (0.8-1.1) 2.0 (0.8-1.1) Comment Review of Relevant I have reviewed the following items wali (where applicable) has been applied. Labs Laboratory Tests Test 05/13/18 08:20 05/14/18 04:20 Prothrombin Time 18.2 SEC (11.7-14.0) 21.8 SEC (11.7-14.0) Prothromb Time International Ratio 1.6 (0.8-1.1) 2.0 (0.8-1.1) Laboratory Tests Test 05/13/18 08:20 05/14/18 04:20 Prothrombin Time 18.2 SEC (11.7-14.0) 21.8 SEC (11.7-14.0) Prothromb Time International Ratio 1.6 (0.8-1.1) 2.0 (0.8-1.1) Medications Current Medications Ondansetron HCl (Zofran) 4 mg PRN Q6HRS PRN IV NAUSEA/VOMITING, 1ST CHOICE; Start 05/08/18 at 18:30 Prochlorperazine Edisylate (Compazine) 10 mg PRN Q6HRS PRN IV NAUSEA/VOMITING, 2ND CHOICE; Start 05/08/18 at 18:30 Prochlorperazine (Compazine) 25 mg PRN Q12HR PRN IA NAUSEA/VOMITING; Start at 18:30 Al Hydroxide/Mg Hydroxide (Mylanta Plus Xs) 30 ml PRN Q3HRS PRN PO HEARTBURN / GAS; Start 05/08/18 at 18:30 Calcium Carbonate/ Glycine (Tums) 500 mg PRN Q3HRS PRN PO UPSET STOMACH; Start 05/08/18 at 18:30 Zolpidem Tartrate (Ambien) 5 mg PRN QHS PRN PO INSOMNIA, MAY REPEAT IN 1HR; Start 05/08/18 at 18:30; Stop 05/08/18 at 19:10; Status DC Oxycodone HCl (Roxicodone) 5 mg PRN Q3HRS PRN PO BREAKTHROUGH PAIN Last administered on 05/13/18at 20:30; Start 05/08/18 at 18:30 Morphine Sulfate (Morphine Sulfate) 2 mg PRN Q2HR PRN IV PAIN Last administered on 05/10/18 08:35; Start 05/08/18 at 18:30; Stop 05/10/18 at 09 :51; Status DC Acetaminophen (Tylenol) 650 mg PRN Q6HRS PRN PO Headaches, Temp > 101.5F; Start 05/08/18 at 18:30 Magnesium Hydroxide (Milk Of Magnesia) 2,400 mg PRN Q12HR PRN PO CONSTIPATION; Start 05/08/18 at 18:30 Bisacodyl (Dulcolax Supp) 10 mg PRN DAILY PRN IA CONSTIPATION; Start 05/08/18 at 18:30 Clonidine HCl (Catapres) 0.1 mg PRN Q1HR PRN PO SBP > 180 or DBP > 100, MRX3; Start 05/08/18 at 18:30 Albuterol Sulfate (Ventolin Neb Soln) 2.5 mg PRN Q2HRS PRN NEB SHORTNESS OF BREATH; Start 05/08/18 at 18:45 Levetiracetam (Keppra) 500 mg BID PO Last administered on 05/13/18 20:31; Start 05/08/18 at 21:00 Non-Formulary Medication (Albuterol Sulfate (Proair Hfa Inhaler)) 1 puff PRN Q4HRS PRN INH SHORTNESS OF BREATH; Start 05/08/18 at 18:30; Status UNV Budesonide (Pulmicort) 0.5 mg RTBID NEB Last administered on 05/14/18at 08:04; Start 05/08/18 at 20:00 Pantoprazole Sodium (Protonix) 40 mg DAILYAC PO Last administered on at 06:23; Start 05/08/18 at 18:30 Theophylline (Theodur) 300 mg BID PO Last administered on 05/13/18 20:31; Start 05/08/18 at 21:00 Warfarin Sodium (Coumadin Per Pharmacy) 1 each PRN DAILY PRN MC SEE COMMENTS Last administered on 05/13/18at 14:02; Start 05/08/18 at 18:30 Enoxaparin Sodium (Lovenox 100mg Syringe) 90 mg Q12HR SQ Last administered on 05/13/18at 20:31; Start 05/08/18 at 21:00 Lorazepam (Ativan) 1 mg PRN Q6HRS PRN PO ANXIETY / AGITATION Last administered on 05/10/18at 10:15; Start 05/08/18 at 19:15; Stop 05/11/18 at 15:23; Status DC Lorazepam (Ativan) 2 mg PRN Q4HRS PRN IV ANXIETY / AGITATION Last administered on 05/10/18at 05:07; Start 05/08/18 at 19:15; Stop 05/10/18 at 09:51; Status DC Chlordiazepoxide (Librium) 50 mg PRN Q6HRS PRN PO ANXIETY / AGITATION, 2ND CHOIC Last administered on 05/10/18at 20:53; Start 05/08/18 at 19:15 Multivitamins 10 ml/Thiamine HCl 100 mg/Folic Acid 1 mg/Sodium Chloride 1,011.2 ml @ 1,000.088 mls/hr 1X ONCE IV Last administered on 05/08/18at 21:51; Start 05/08/18 at 20:00; Stop 05/08/18 at 21:00; Status DC Zolpidem Tartrate (Ambien) 5 mg PRN QHS PRN PO INSOMNIA Last administered on at 20:30; Start 05/08/18 at 19:15 Pharmacy Consult (C.diff Med Screen By Rx) 1 each 1X ONCE MC ; Start 05/08/18 at 21:15; Stop 05/08/18 at 21:16; Status Cancel Influenza Virus Vaccine (Afluria Trivalent [id number] Syringe) 0.5 ml ONCE ONCE VAX IM Last administered on 05/09/18at 09:00; Start 05/09/18 at 09:00; Stop 05/09/18 at 09:01; Status DC Info (Anti-Coagulation Monitoring By Pharmacy) 1 each PRN DAILY PRN MC SEE COMMENTS Last administered on 05/13/18at 13:59; Start 05/09/18 at 09:00 Warfarin Sodium (Coumadin) 7.5 mg 1X WARF ONCE PO Last administered on at 16:13; Start 05/09/18 at 16:00; Stop 05/09/18 at 16:01; Status DC Lorazepam (Ativan) 1 mg PRN Q4HRS PRN IV ANXIETY / AGITATION 3RD CHOICE Last administered on 05/11/18at 15:10; Start 05/10/18 at 10:00; Stop 05/11/18 at 15 :23; Status DC Morphine Sulfate (Morphine Sulfate) 1 mg PRN Q4HRS PRN IV PAIN Last administered on 05/11/18at 09:09; Start 05/10/18 at 10:00; Stop 05/12/18 at 01 :06; Status DC Warfarin Sodium (Coumadin) 10 mg 1X WARF ONCE PO Last administered on at 17:34; Start 05/10/18 at 16:00; Stop 05/10/18 at 16:01; Status DC Warfarin Sodium (Coumadin) 12 mg 1X WARF ONCE PO Last administered on at 17:09; Start 05/11/18 at 16:00; Stop 05/11/18 at 16:01; Status DC Lorazepam (Ativan) 0.5 mg PRN Q6HRS PRN PO ANXIETY / AGITATION, 1ST CHOIC Last administered on 05/14/18at 01:52; Start 05/11/18 at 15:30 Oxycodone/ Acetaminophen (Percocet 5/325) 1 tab PRN Q6HRS PRN PO MOD TO SEVERE PAIN Last administered on 05/13/18at 18:43; Start 05/11/18 at 15:30 Warfarin Sodium (Coumadin) 15 mg 1X WARF ONCE PO Last administered on at 16:11; Start 05/12/18 at 16:00; Stop 05/12/18 at 16:01; Status DC Warfarin Sodium (Coumadin) 15 mg 1X WARF ONCE PO Last administered on at 18:43; Start 05/13/18 at 16:00; Stop 05/13/18 at 16:01; Status DC Diphenhydramine HCl (Benadryl) 25 mg PRN Q6HRS PRN PO ITCHING Last administered on 05/13/18at 18:43; Start 05/13/18 at 17:30 Active Scripts Active Keppra (Levetiracetam) 500 Mg Tablet 1 Tab PO BID Warfarin Sodium 5 Mg Tablet 1 Tab PO DAILY Catapres (Clonidine Hcl) 0.1 Mg Tablet 0.1 Mg PO PRN Q1HR PRN 14 Days Withdrawal symptoms Reported Proair Hfa Inhaler (Albuterol Sulfate) 8.5 Gm Hfa.aer.ad 1 Puff INH PRN Q4HRS PRN Duoneb 0.5-3(2.5) Mg/3 Ml (Albuterol/Ipratropium) 3 Ml Ampul.neb 3 Ml NEB Q2HR PRN Symbicort 160-4.5 Mcg Inhaler (Budesonide/Formoterol Fumarate) 10.2 Gm Hfa.aer.ad 2 Puff IH BID Prilosec Otc (Omeprazole Magnesium) 20 Mg Tablet.dr 1 Tab PO DAILY Theophylline (Theophylline Anhydrous) 400 Mg Tablet.er 300 Mg PO BID Vitals/I & O Vital Sign - Last 24 Hours 05/13/18 05/13/18 05/13/18 05/13/18 11:00 12:38 15:00 18:43 Temp 97.9 97.9 97.9 97.9 Pulse 73 75 Resp 18 20 18 20 B/P (MAP) 115/65 (82) 120/71 (87) Pulse Ox 96 96 98 98 O2 Delivery Room Air Room Air Room Air Room Air 05/13/18 05/13/18 05/13/18 05/13/18 19:00 19:43 20:00 20:30 Temp 97.6 97.6 Pulse 66 Resp 18 20 18 B/P (MAP) 114/73 (87) Pulse Ox 98 98 98 O2 Delivery Room Air Room Air Room Air Room Air 05/13/18 05/13/18 05/14/18 21:33 23:00 03:00 Temp 98.1 98.8 98.1 98.8 Pulse 65 72 Resp 18 18 18 B/P (MAP) 111/66 (81) 107/61 (76) Pulse Ox 98 98 97 O2 Delivery Room Air Room Air Room Air Intake and Output 05/13/18 05/13/18 05/14/18 15:00 23:00 07:00 Intake Total 360 ml 480 ml Output Total 0 ml Balance 360 ml 480 ml 0 ml RYAN HERNÁNDEZ MD May 14, 2018 08:06
[2018-05-14] MEDS: oxyCODONE IR 5 MG TABLET PO PRN ×3 (08:40→16:07)
[2018-05-14] MEDS: THEOPHYLLINE 12HR ER 300 MG TAB.ER.12H. PO SCH (08:40)
[2018-05-14] MEDS: PANTOPRAZOLE 40 MG TABLET.DR. PO SCH (08:40)
[2018-05-14] MEDS: levETIRAcetam 500 MG TABLET PO SCH (08:40)
[2018-05-14] MEDS: oxyCODONE/APAP 5/325 1 TAB TABLET PO PRN ×2 (08:41→16:07)
[2018-05-14 11:00] VITALS: BP 108/59
[2018-05-14] MEDS: ANTI-COAG MONITOR BY PHARMACY. MC PRN (13:19)
[2018-05-14 15:00] VITALS: BP 110/65
[2018-05-14] MEDS ORDERED: WARF-78 PO (15:22)
[2018-05-14] MEDS ORDERED: WARFARIN 5 MG TABLET. PO ONE (16:00)
[2018-05-14] MEDS ORDERED: OXYC1TAB7 PO (16:13)
--- NOTE | 2018-05-18 11:08 | PDOC3 ---
Discharge Summary Visit Information Date of Admission: May 08, 2018 Date of Discharge: May 14, 2018 Admitting Diagnosis: Acute LLE DVT Final Diagnosis DVT Brief Hospital Course Allergies Allergies Coded Allergies Type Severity Reaction Last Updated Verified No Known Drug Allergies 04/30/16 No Brief Hospital Course Left leg clinically and sonographically looks better severe home and financial issues, no insurance, cannot go home , Mother pays to live in a motel dced 1 week ago with coumadin 5mg daily for left leg dvt, INR back <2 with more leg swelling. pt was dced on Friday but not seen a doc till Friday left leg still swelling, but better compared to admission as per pt, INR 1.6 Postural tremor consistent with essential tremor Left leg DVT Possible seizure episodes, partial-complex. 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 Alcoholism, prior metabolic encephalopathy Substance use disorder myopathy, critical dz related right C7 radiculopathy. no central spinal stenosis SUB therapeutic INR - 1.6 on admit Self pay [employer] dependecne ETOH use - sober for weeks/mos now plan: cont coumadin, pharmacy dosing inr daily, dc when 2-3. talked to SW, pt's mother pays him to go to motel. i told him need to see a doc for INR within 3ds after dc. decrease ativan Discharge Information Condition at Discharge: Improved Follow Up: Weeks (1) Disposition/Orders: D/C to a Intermediate (Hot) Scheduled Budesonide/Formoterol Fumarate (Symbicort 160-4.5 Mcg Inhaler) 10.2 Gm Hfa.aer.ad, 2 PUFF IH BID, #10.6 Ref 3 (Reported) Entered as Reported by: RIKA RIVERA on 08/13/167 Last Action: Converted on 05/08/181820 by JAMES HURST Levetiracetam (Keppra) 500 Mg Tablet, 1 TAB PO BID, #180 Ref 3 Prescribed by: JAMES HURST on 05/04/18 1024 Last Action: Continued on 05/08/181820 by JAMES HURST Omeprazole Magnesium (Prilosec Otc) 20 Mg Tablet.dr, 1 TAB PO DAILY, #30 Ref 3 ( Reported) Entered as Reported by: FELICIANO KNOX on 04/30/16 1848 Last Action: Converted on 05/08/181820 by JAMES HURST Theophylline Anhydrous (Theophylline) 400 Mg Tablet.er, 300 MG PO BID, (Reported ) Entered as Reported by: ALBERTINA MURILLO on 08/20/132034 Last Action: Converted on 05/08/181820 by JAMES HURST Warfarin Sodium (Warfarin Sodium) 5 Mg Tablet, 1 TAB PO DAILY, #90 Ref 1 Prescribed by: JAMES HURST on 05/04/18 1024 Last Action: Reviewed on 05/08/181820 by JAMES HURST Warfarin Sodium (Coumadin) 5 Mg Tablet, 5 MG PO 1X WARF for DVT for 30 Days, # 45 Ref 1 Alternate 10mg and 5mg every other day Prescribed by: RYAN HERNÁNDEZ MD on 05/14/181521 Scheduled PRN Albuterol Sulfate (Proair Hfa Inhaler) 8.5 Gm Hfa.aer.ad, 1 PUFF INH PRN Q4HRS PRN for SHORTNESS OF BREATH, Ref 0 (Reported) Entered as Reported by: FIONA CATHERINE on 03/02/182058 Last Action: Converted on 05/08/181820 by JAMES HURST Clonidine Hcl (Catapres) 0.1 Mg Tablet, 0.1 MG PO PRN Q1HR PRN for SBP > 180 or DBP > 100, MRX3 for 14 Days, #28 Withdrawal symptoms Prescribed by: RYAN HERNÁNDEZ MD on 04/18/18 1123 Last Action: Continued on 05/08/181820 by JAMES HURST Ipratropium/Albuterol Sulfate (Duoneb 0.5-3(2.5) Mg/3 Ml) 3 Ml Ampul.neb, 3 ML NEB Q2HR PRN for SHORTNESS OF BREATH, (Reported) Entered as Reported by: FIONA CATHERINE on 03/02/182058 Last Action: Continued on 05/08/181820 by JAMES HURST Oxycodone Hcl/Acetaminophen (Oxycodone-Acetaminophen 5-325) 1 Each Tablet, 1 TAB PO PRN Q6HRS PRN for MOD TO SEVERE PAIN for 6 Days, #20 Ref 0 Prescribed by: RYAN HERNÁNDEZ MD on 05/14/181612 RYAN HERNÁNDEZ MD May 18, 2018 11:08
== END 2018-05-14 16:45 | disposition home or self-care (01) | DRG 299 ==
LOC: 5 NORTH 16:20
PROVIDERS: ADMIT Internal Medicine; ATTEND Internal Medicine
DX: I82.402 Acute embolism and thrombosis of unspecified deep veins of left lower extremity (principal); G93.41 Metabolic encephalopathy; F10.239 Alcohol dependence with withdrawal, unspecified; G40.209 Localization-related (focal) (partial) symptomatic epilepsy and epileptic syndromes with complex partial seizures, not intractable, without status epilepticus; I25.10 Atherosclerotic heart disease of native coronary artery without angina pectoris; I10 Essential (primary) hypertension; J45.909 Unspecified asthma, uncomplicated; K21.9 Gastro-esophageal reflux disease without esophagitis; F41.9 Anxiety disorder, unspecified; F32.9 Major depressive disorder, single episode, unspecified; E11.9 Type 2 diabetes mellitus without complications; M10.9 Gout, unspecified; F12.10 Cannabis abuse, uncomplicated; G25.0 Essential tremor; M54.12 Radiculopathy, cervical region; F19.10 Other psychoactive substance abuse, uncomplicated; R79.1 Abnormal coagulation profile; Z79.01 Long term (current) use of anticoagulants; Z82.49 Family history of ischemic heart disease and other diseases of the circulatory system; Z59.9 Problem related to housing and economic circumstances, unspecified
CPT/HCPCS: 36415; 80048; 80053; 83735; 84100; 85025; 85610; 90471; 90756; 93971; 94640; 94760; J1650; J2060; J2270; J7030; J7626; Q0163; Q2035

== ENCOUNTER 2019-07-30 03:44 | Emergency (ER) | payer SELFPAY ==
[~2019-07-30 03:44] MED LIST changes: +ACET325T9 PO; +ALBU2.5V8 INH; +AMLO5TAB10 PO; +CHLO25CA9 PO; +Folic Acid PO; -HYDR-2758 PO; +HYDR-2761 PO; +MAG30ORA2 PO; +MULT-503 PO; +MULT1TAB90 PO; +NALT50TA PO; +OXYC1TAB7 PO; -PANT40TA5 PO; +PANT40TA77 PO; -PROAIR HFA8.5 GM INH; +THIA100T22 PO; +VENL37.5 PO; +WARF-78 PO
[2019-07-30 04:05] LABS: BASO # 0.1 x10^3/uL (0.0-0.2); BASO % 1 % (0-3); EOS # 0.3 x10^3/uL (0.0-0.7); EOS % 4 % (0-3); HEMOGLOBIN 12.9 g/dL (13.0-17.5); LYMPH # 2.6 x10^3/uL (1.0-4.8); LYMPH % 39 % (24-48); MEAN CORPUSCULAR HEMOGLOBIN 25 pg (25-35); MEAN CORPUSCULAR HGB CONC 32 g/dL (31-37); MEAN CORPUSCULAR VOLUME 76 fL (79-100); MONO # 0.6 x10^3/uL (0.0-1.1); MONO % 9 % (0-9); NEUT # 3.1 x10^3/uL (1.8-7.7); NEUT % 46 % (31-73); PLATELET COUNT 335 x10^3/uL (140-400); RED BLOOD COUNT 5.24 x10^6/uL (4.30-5.70); WHITE BLOOD COUNT 6.7 x10^3/uL (4.0-11.0)
[2019-07-30 04:18] LABS: ANION GAP 11 (6-14); BLOOD UREA NITROGEN 12 mg/dL (8-26); BUN/CREATININE RATIO 12 (6-20); CALCIUM 8.4 mg/dL (8.5-10.1); CARBON DIOXIDE 28 mmol/L (21-32); CHLORIDE 104 mmol/L (98-107); GFR 81.9; GLUCOSE 122 mg/dL (70-99); SODIUM 143 mmol/L (136-145)
[2019-07-30 04:24] LABS: ALBUMIN 3.5 g/dL (3.4-5.0); ALBUMIN/GLOBULIN RATIO 0.9 (1.0-1.7); ALK PHOS 59 U/L (46-116); ALT (SGPT) 21 U/L (16-63); AST (SGOT) 29 U/L (15-37); LIPASE 148 U/L (73-393); TOTAL PROTEIN 7.5 g/dL (6.4-8.2)
[2019-07-30 04:26] LABS: TOTAL BILIRUBIN < 0.1 mg/dL (0.2-1.0)
[2019-07-30] MEDS ORDERED: IV NORMAL SALINE 1000ML BAG 1,000 ML IV ONE ×2 (04:30)
[2019-07-30] MEDS ORDERED: ONDANSETRON PF 4 MG/2 ML VIAL. IVP ONE (04:30)
[2019-07-30 04:33] LABS: BILIRUBIN,URINE NEGATIVE (NEG); CLARITY,URINE CLEAR; COLOR,URINE YELLOW; NITRITE,URINE NEGATIVE (NEG); PH,URINE 6.5; PROTEIN,URINE 30 mg/dL (NEG-TRACE)
[2019-07-30 04:40] LABS: BARBITURATES NEG (NEG); BENZODIAZEPINES POS (NEG); CANNABINOIDS NEG (NEG); COCAINE NEG (NEG); METHADONE NEG (NEG); OPIATES NEG (NEG); PHENCYCLIDINE NEG (NEG)
[2019-07-30 04:41] LABS: AMPHETAMINE/METHAMPHETAMINE NEG (NEG)
[2019-07-30 04:46] LABS: BACTERIA,URINE 0 /HPF (0-FEW); RBC,URINE 0 /HPF (0-2); SQUAMOUS EPITHELIAL CELL,UR FEW /LPF; WBC,URINE OCC /HPF (0-4)
[2019-07-30 04:54] LABS: INFLUENZA A PATIENT NEGATIVE (NEGATIVE); INFLUENZA B PATIENT NEGATIVE (NEGATIVE)
[2019-07-30 05:00] VITALS: BP 118/69
--- NOTE | 2019-07-30 05:15 | PHYS DOC ---
Past Medical History Past Medical History: Asthma, Pancreatitis Past Surgical History: Tonsillectomy Additional Past Surgical Histo: adnoidectomy, left eye Alcohol Use: Heavy Drug Use: None Adult General Chief Complaint Chief Complaint: ABDOMINAL PAIN HPI HPI Patient is a 44 year old male with history of alcoholism, chronic pancreatitis who presents with epigastric pain nausea and vomiting after drinking 2 pints of alcohol earlier yesterday. Patient denies hematemesis coffee-ground emesis trudy na. No fever chills sweats. No back pain or flank pain no other acute symptoms or complaints. Patient recently admitted to this facility and discharge 1 week ago for treatment of alcohol withdrawal and pancreatitis.[] Review of Systems Review of Systems ROS as per HPI All other systems were reviewed and found to be within normal limits, except as documented in this note. Current Medications Current Medications Current Medications Medications (Trade) Dose Ordered Sig/Wil Start Time Stop Time Status Last Admin Dose Admin Ondansetron HCl (Zofran) 4 mg 1X ONCE 07/30/19 04:30 07/30/19 04:31 DC 07/30/19 04:18 4 MG Sodium Chloride 1,000 ml @ 1,000 mls/hr 1X ONCE 07/30/19 04:30 07/30/19 05:29 07/30/19 04:18 1,000 MLS/HR Allergies Allergies Allergies Coded Allergies Type Severity Reaction Last Updated Verified No Known Drug Allergies 04/30/16 No Physical Exam Physical Exam Constitutional: Well developed, well nourished, no acute distress, smells of EtOH intoxicants. [] HENT: Normocephalic, atraumatic, bilateral external ears normal, oropharynx moist, no oral exudates, nose normal. [] Eyes: PERRLA, EOMI, conjunctiva, injected. [] Neck: Normal range of motion, no tenderness, supple, no stridor. [] Cardiovascular:Heart rate regular rhythm, no murmur [] Lungs & Thorax: Bilateral breath sounds clear to auscultation [] Abdomen: Bowel sounds normal, soft, epigastric pain, tenderness, no rebound rigidity or guarding. [] Skin: Warm, dry, no erythema, no rash. [] Back: No tenderness,. [] Extremities: No tenderness, no edema. [] Neurologic: Alert and oriented X 3, normal motor function, normal sensory function, no focal deficits noted. [] Psychologic: Affect, flat. [] Current Patient Data Vital Signs Vital Signs Date Time Temp Pulse Resp B/P (MAP) Pulse Ox O2 Delivery O2 Flow Rate FiO2 07/30/19 04:30 94 18 109/55 (73) 96 Room Air 07/30/19 03:50 97.4 97.4 Lab Values Laboratory Tests Test 07/30/19 03:55 07/30/19 04:20 White Blood Count 6.7 x10^3/uL (4.0-11.0) Red Blood Count 5.24 x10^6/uL (4.30-5.70) Hemoglobin 12.9 g/dL (13.0-17.5) L Hematocrit 40.0 % (39.0-53.0) Mean Corpuscular Volume 76 fL (79-100) L Mean Corpuscular Hemoglobin 25 pg (25-35) Mean Corpuscular Hemoglobin Concent 32 g/dL (31-37) Red Cell Distribution Width 19.0 % (11.5-14.5) H Platelet Count 335 x10^3/uL (140-400) Neutrophils (%) (Auto) 46 % (31-73) Lymphocytes (%) (Auto) 39 % (24-48) Monocytes (%) (Auto) 9 % (0-9) Eosinophils (%) (Auto) 4 % (0-3) H Basophils (%) (Auto) 1 % (0-3) Neutrophils # (Auto) 3.1 x10^3/uL (1.8-7.7) Lymphocytes # (Auto) 2.6 x10^3/uL (1.0-4.8) Monocytes # (Auto) 0.6 x10^3/uL (0.0-1.1) Eosinophils # (Auto) 0.3 x10^3/uL (0.0-0.7) Basophils # (Auto) 0.1 x10^3/uL (0.0-0.2) Sodium Level 143 mmol/L (136-145) Potassium Level 4.0 mmol/L (3.5-5.1) Chloride Level 104 mmol/L (98-107) Carbon Dioxide Level 28 mmol/L (21-32) Anion Gap 11 (6-14) Blood Urea Nitrogen 12 mg/dL (8-26) Creatinine 1.0 mg/dL (0.7-1.3) Estimated GFR (Cockcroft-Gault) 81.9 BUN/Creatinine Ratio 12 (6-20) Glucose Level 122 mg/dL (70-99) H Calcium Level 8.4 mg/dL (8.5-10.1) L Total Bilirubin < 0.1 mg/dL (0.2-1.0) L Aspartate Amino Transferase (AST) 29 U/L (15-37) Alanine Aminotransferase (ALT) 21 U/L (16-63) Alkaline Phosphatase 59 U/L (46-116) Total Protein 7.5 g/dL (6.4-8.2) Albumin 3.5 g/dL (3.4-5.0) Albumin/Globulin Ratio 0.9 (1.0-1.7) L Lipase 148 U/L (73-393) Urine Collection Type Unknown Urine Color Yellow Urine Clarity Clear Urine pH 6.5 Urine Specific [place] 1.020 Urine Protein 30 mg/dL (NEG-TRACE) Urine Glucose (UA) Negative mg/dL (NEG) Urine Ketones (Stick) Trace mg/dL (NEG) Urine Blood Negative (NEG) Urine Nitrite Negative (NEG) Urine Bilirubin Negative (NEG) Urine Urobilinogen Dipstick 1.0 mg/dL (0.2 mg/dL) Urine Leukocyte Esterase Negative (NEG) Urine RBC 0 /HPF (0-2) Urine WBC Occ /HPF (0-4) Urine Squamous Epithelial Cells Few /LPF Urine Bacteria 0 /HPF (0-FEW) Urine Mucus Slight /LPF Urine Opiates Screen Neg (NEG) Urine Methadone Screen Neg (NEG) Urine Barbiturates Neg (NEG) Urine Phencyclidine Screen Neg (NEG) Urine Amphetamine/Methamphetamine Neg (NEG) Urine Benzodiazepines Screen Pos (NEG) Urine Cocaine Screen Neg (NEG) Urine Cannabinoids Screen Neg (NEG) Urine Ethyl Alcohol Pos (NEG) Influenza Type A Antigen Negative (NEGATIVE) Influenza Type B Antigen Negative (NEGATIVE) Laboratory Tests 07/30/19 03:55 Laboratory Tests 07/30/19 03:55 EKG EKG [] Radiology/Procedures Radiology/Procedures [] Course & Med Decision Making Course & Med Decision Making Pertinent Labs and Imaging studies reviewed. (See chart for details) [Labs reviewed. Symptoms consistent with alcoholic gastritis. Patient requesting dc from the ED and pulls his own IV and elopes. ] Hemant Disclaimer Dragon Disclaimer This electronic medical record was generated, in whole or in part, using a voice recognition dictation system. Departure Departure Impression: Primary Impression: Epigastric abdominal pain Disposition: HOME, SELF-CARE Condition: STABLE Referrals: HERMILA JACKSON MD (PCP) Patient Instructions: Alcohol Problems, Gastritis, Adult KARLENEALEE ERAZO Jul 30, 2019 05:15
[2019-07-30] MEDS ORDERED: LIDO:MAALOX 1:1 20 ML SINGLE DOSE. PO ONE (05:30)
== END 2019-07-30 05:19 | disposition home or self-care (01) ==
LOC: ER 03:44
DX: R10.13 Epigastric pain (principal); R11.2 Nausea with vomiting, unspecified; J45.909 Unspecified asthma, uncomplicated; F10.20 Alcohol dependence, uncomplicated; Y90.9 Presence of alcohol in blood, level not specified
CPT/HCPCS: 36415; 80053; 80307; 81001; 83690; 85025; 87804; 96361; 96374; 99284; J2405; J7030

== ENCOUNTER 2019-09-14 17:15 | Inpatient (IN) | payer SELFPAY ==
[~2019-09-14] VITALS: Ht 182.9 cm; Wt 91.0 kg
[2019-09-14] VITALS (13 sets, daily range): BP systolic 122–204; BP diastolic 60–102
[2019-09-14] MEDS ORDERED: ONDANSETRON PF 4 MG/2 ML VIAL. ONE (17:54)
[2019-09-14] MEDS ORDERED: ONDANSETRON PF 4 MG/2 ML VIAL. IVP ONE (18:00)
[2019-09-14] MEDS ORDERED: PANTOPRAZOLE IV PUSH 40 MG VIAL. IVP ONE (18:00)
[2019-09-14] MEDS ORDERED: IV NORMAL SALINE 1000ML BAG 1,000 ML IV ONE (18:00)
--- NOTE | 2019-09-14 18:09 | PHYS DOC ---
Past Medical History Past Medical History: Asthma, Pancreatitis (SILVIO PICKARD APRN) Past Surgical History: Tonsillectomy Additional Past Surgical Histo: adnoidectomy, left eye (SILVIO PICKARD APRN) Smoking Status: Never Smoker Alcohol Use: Heavy Drug Use: None (SILVIO PICKARD APRN) Attending Signature I have participated in the care of this patient and I have reviewed and agree with all pertinent clinical information above including history, exam, and recommendations. (KAREN EVANS MD) Adult General Chief Complaint Chief Complaint: WITHDRAWL HPI HPI Patient is a 44 year old male who presents with has been binge drinking for the last 5 or 6 months but mother states is gotten really bad over the last month and he'll try to stop and he goes back to drinking. When asked how much alcohol he drinks a day usually he states I don't know a lot. Patient having tremors, nausea, vomiting coffee ground blood, LOC for the last 3 days. Denies hearing voices are seen things aren't there. Mother states that the patient stated that he could not see anything on the way here but when they got retirement here that he could see again. Patient rates his abdominal pain a 8/10. (SILVIO PICKARD APRN) Review of Systems Review of Systems GI: abdominal pain, nausea, vomiting, denies bloody stools or denies diarrhea [] Neurologic: Tremors. Light headedness, vision changes. Denies headache, focal weakness or sensory changes [] All other systems were reviewed and found to be within normal limits, except as documented in this note. (SILVIO PICKARD APRN) Current Medications Current Medications Current Medications Medications (Trade) Dose Ordered Sig/Wil Start Time Stop Time Status Last Admin Dose Admin Info (CONTRAST GIVEN -- Rx MONITORING) 1 each PRN DAILY PRN 09/14/19 19:00 09/16/19 18:59 Iohexol (Omnipaque 300 Mg/ml) 75 ml 1X ONCE 09/14/19 19:00 09/14/19 19:01 DC Lorazepam (Ativan Inj) 4 mg PRN Q1HR PRN 09/14/19 18:30 09/14/19 19:56 4 MG Multivitamins 10 ml/Thiamine HCl 100 mg/Folic Acid 1 mg/Sodium Chloride 1,011.2 ml @ 100 mls/ hr DAILY 09/14/19 18:30 09/18/19 19:07 09/14/19 19:06 100 MLS/HR Ondansetron HCl (Zofran) 4 mg 1X ONCE 09/14/19 18:00 09/14/19 18:09 DC 09/14/19 18:04 4 MG Pantoprazole Sodium (PROTONIX VIAL for IV PUSH) 40 mg 1X ONCE 09/14/19 18:00 09/14/19 18:09 DC 09/14/19 18:43 40 MG Pantoprazole Sodium 80 mg/ Sodium Chloride 100 ml @ 10 mls/hr 1X ONCE 09/14/19 18:30 09/15/19 04:29 09/14/19 18:44 10 MLS/HR Sodium Chloride 1,000 ml @ 1,000 mls/hr 1X ONCE 09/14/19 18:00 09/14/19 19:00 DC 09/14/19 19:10 1,000 MLS/HR (KAREN EVANS MD) Allergies Allergies Allergies Coded Allergies Type Severity Reaction Last Updated Verified No Known Drug Allergies 04/30/16 No (KAREN EVANS MD) Physical Exam Physical Exam Constitutional: Well developed, well nourished, no acute distress, non-toxic rosemary earance. [] HENT: Normocephalic, atraumatic, bilateral external ears normal, oropharynx moist, no oral exudates, nose normal. [] Eyes: PERRLA, EOMI, conjunctiva normal, no discharge. [] Neck: Normal range of motion, no tenderness, supple, no stridor. [] Cardiovascular:Heart rate tachy regular rhythm, no murmur [] Lungs & Thorax: Bilateral breath sounds inspiratory expiratory wheezing to au scultation [] Abdomen: Bowel sounds normal, soft, generalized tenderness, no masses, no pulsatile masses. [] Skin: Warm, moist, pale, no erythema, no rash. [] Back: No tenderness, no CVA tenderness. [] Extremities:Tremors, No tenderness, no cyanosis, no clubbing, ROM intact, no edema. [] Neurologic: Alert and oriented X 3, normal motor function, normal sensory function, no focal deficits noted. [] Psychologic: Affect normal, judgement normal, mood normal. [] (SILVIO PICKARD APRN) Current Patient Data Vital Signs Vital Signs Date Time Temp Pulse Resp B/P (MAP) Pulse Ox O2 Delivery O2 Flow Rate FiO2 09/14/19 19:00 120 202/132 (155) 98 Room Air 09/14/19 17:40 97.5 28 97.5 (KAREN EVANS MD) Lab Values Laboratory Tests Test 09/14/19 18:00 09/14/19 18:54 White Blood Count 15.0 x10^3/uL (4.0-11.0) H Red Blood Count 1.91 x10^6/uL (4.30-5.70) L Hemoglobin 4.4 g/dL (13.0-17.5) *L Hematocrit 15.5 % (39.0-53.0) *L Mean Corpuscular Volume 82 fL (79-100) Mean Corpuscular Hemoglobin 23 pg (25-35) L Mean Corpuscular Hemoglobin Concent 28 g/dL (31-37) L Red Cell Distribution Width 20.1 % (11.5-14.5) H Platelet Count 174 x10^3/uL (140-400) Neutrophils (%) (Auto) 72 % (31-73) Lymphocytes (%) (Auto) 18 % (24-48) L Monocytes (%) (Auto) 9 % (0-9) Eosinophils (%) (Auto) 0 % (0-3) Basophils (%) (Auto) 1 % (0-3) Neutrophils # (Auto) 10.8 x10^3/uL (1.8-7.7) H Lymphocytes # (Auto) 2.7 x10^3/uL (1.0-4.8) Monocytes # (Auto) 1.3 x10^3/uL (0.0-1.1) H Eosinophils # (Auto) 0.0 x10^3/uL (0.0-0.7) Basophils # (Auto) 0.1 x10^3/uL (0.0-0.2) Platelet Estimate Adequate (ADEQUATE) Polychromasia Occasional Hypochromasia Mod Poikilocytosis Slight Anisocytosis Mod Ovalocytes Occ [place] Cells Few Acanthocytes (Spur Cells) Few Schistocytes Occ Prothrombin Time 16.4 SEC (11.7-14.0) H Prothrombin Time INR 1.4 (0.8-1.1) H Sodium Level 142 mmol/L (136-145) Potassium Level 3.8 mmol/L (3.5-5.1) Chloride Level 97 mmol/L (98-107) L Carbon Dioxide Level 11 mmol/L (21-32) *L Anion Gap 34 (6-14) H Blood Urea Nitrogen 16 mg/dL (8-26) Creatinine 1.3 mg/dL (0.7-1.3) Estimated GFR (Cockcroft-Gault) 60.5 BUN/Creatinine Ratio 12 (6-20) Glucose Level 197 mg/dL (70-99) H Calcium Level 8.4 mg/dL (8.5-10.1) L Total Bilirubin 0.4 mg/dL (0.2-1.0) Aspartate Amino Transferase (AST) 110 U/L (15-37) H Alanine Aminotransferase (ALT) 106 U/L (16-63) H Alkaline Phosphatase 48 U/L (46-116) Troponin I Quantitative < 0.017 ng/mL (0.000-0.055) Total Protein 6.0 g/dL (6.4-8.2) L Albumin 2.9 g/dL (3.4-5.0) L Albumin/Globulin Ratio 0.9 (1.0-1.7) L Ethyl Alcohol Level 111 mg/dL (0-10) H Urine Collection Type Unknown Urine Color Yellow Urine Clarity Clear Urine pH 5.5 Urine Specific Epsom 1.020 Urine Protein Negative mg/dL (NEG-TRACE) Urine Glucose (UA) Negative mg/dL (NEG) Urine Ketones (Stick) 40 mg/dL (NEG) Urine Blood Trace (NEG) Urine Nitrite Negative (NEG) Urine Bilirubin Negative (NEG) Urine Urobilinogen Dipstick 0.2 mg/dL (0.2 mg/dL) Urine Leukocyte Esterase Negative (NEG) Urine RBC 0 /HPF (0-2) Urine WBC Rare /HPF (0-4) Urine Squamous Epithelial Cells Occ /LPF Urine Bacteria 0 /HPF (0-FEW) Urine Mucus Slight /LPF Urine Opiates Screen Neg (NEG) Urine Methadone Screen Neg (NEG) Urine Barbiturates Neg (NEG) Urine Phencyclidine Screen Neg (NEG) Urine Amphetamine/Methamphetamine Neg (NEG) Urine Benzodiazepines Screen Neg (NEG) Urine Cocaine Screen Neg (NEG) Urine Cannabinoids Screen Neg (NEG) Urine Ethyl Alcohol Pos (NEG) Laboratory Tests 09/14/19 18:00 Laboratory Tests 09/14/19 18:00 (KAREN EVANS MD) Lab Values Laboratory Tests Test 09/14/19 18:00 09/14/19 18:54 White Blood Count 15.0 x10^3/uL (4.0-11.0) H Red Blood Count 1.91 x10^6/uL (4.30-5.70) L Hemoglobin 4.4 g/dL (13.0-17.5) *L Hematocrit 15.5 % (39.0-53.0) *L Mean Corpuscular Volume 82 fL (79-100) Mean Corpuscular Hemoglobin 23 pg (25-35) L Mean Corpuscular Hemoglobin Concent 28 g/dL (31-37) L Red Cell Distribution Width 20.1 % (11.5-14.5) H Platelet Count 174 x10^3/uL (140-400) Neutrophils (%) (Auto) 72 % (31-73) Lymphocytes (%) (Auto) 18 % (24-48) L Monocytes (%) (Auto) 9 % (0-9) Eosinophils (%) (Auto) 0 % (0-3) Basophils (%) (Auto) 1 % (0-3) Neutrophils # (Auto) 10.8 x10^3/uL (1.8-7.7) H Lymphocytes # (Auto) 2.7 x10^3/uL (1.0-4.8) Monocytes # (Auto) 1.3 x10^3/uL (0.0-1.1) H Eosinophils # (Auto) 0.0 x10^3/uL (0.0-0.7) Basophils # (Auto) 0.1 x10^3/uL (0.0-0.2) Platelet Estimate Pending Prothrombin Time 16.4 SEC (11.7-14.0) H Prothrombin Time INR 1.4 (0.8-1.1) H Sodium Level 142 mmol/L (136-145) Potassium Level 3.8 mmol/L (3.5-5.1) Chloride Level 97 mmol/L (98-107) L Carbon Dioxide Level 11 mmol/L (21-32) *L Anion Gap 34 (6-14) H Blood Urea Nitrogen 16 mg/dL (8-26) Creatinine 1.3 mg/dL (0.7-1.3) Estimated GFR (Cockcroft-Gault) 60.5 BUN/Creatinine Ratio 12 (6-20) Glucose Level 197 mg/dL (70-99) H Calcium Level 8.4 mg/dL (8.5-10.1) L Total Bilirubin 0.4 mg/dL (0.2-1.0) Aspartate Amino Transferase (AST) 110 U/L (15-37) H Alanine Aminotransferase (ALT) 106 U/L (16-63) H Alkaline Phosphatase 48 U/L (46-116) Troponin I Quantitative < 0.017 ng/mL (0.000-0.055) Total Protein 6.0 g/dL (6.4-8.2) L Albumin 2.9 g/dL (3.4-5.0) L Albumin/Globulin Ratio 0.9 (1.0-1.7) L Ethyl Alcohol Level 111 mg/dL (0-10) H Urine Collection Type Unknown Urine Color Yellow Urine Clarity Clear Urine pH 5.5 Urine Specific Epsom 1.020 Urine Protein Negative mg/dL (NEG-TRACE) Urine Glucose (UA) Negative mg/dL (NEG) Urine Ketones (Stick) 40 mg/dL (NEG) Urine Blood Trace (NEG) Urine Nitrite Negative (NEG) Urine Bilirubin Negative (NEG) Urine Urobilinogen Dipstick 0.2 mg/dL (0.2 mg/dL) Urine Leukocyte Esterase Negative (NEG) Urine RBC 0 /HPF (0-2) Urine WBC Rare /HPF (0-4) Urine Squamous Epithelial Cells Occ /LPF Urine Bacteria 0 /HPF (0-FEW) Urine Mucus Slight /LPF Urine Opiates Screen Neg (NEG) Urine Methadone Screen Neg (NEG) Urine Barbiturates Neg (NEG) Urine Phencyclidine Screen Neg (NEG) Urine Amphetamine/Methamphetamine Neg (NEG) Urine Benzodiazepines Screen Neg (NEG) Urine Cocaine Screen Neg (NEG) Urine Cannabinoids Screen Neg (NEG) Urine Ethyl Alcohol Pos (NEG) Laboratory Tests 09/14/19 18:00 Laboratory Tests 09/14/19 18:00 (SILVIO PICKARD APRN) EKG EKG Sinus Tachycardia, no STEMI[] Interpretation Time: [address] Evans (SILVIO PICKARD APRN) Radiology/Procedures Radiology/Procedures [] (SILVIO PICKARD APRN) Impressions: [address] [address] IMAGING REPORT Signed PATIENT: SHAHEEN OLIVEIRA CACCOUNT: [id number] : 1975 LOCATION: ER AGE: 44 SEX: M EXAM STATUS: REG ER ORD. PHYSICIAN: SILVIO PICKARD APRN REASON: wheezing PROCEDURE: PORTABLE CHEST 1V PORTABLE CHEST 1V Clinical History: Wheezing Technique: AP view of the chest was obtained at 09/14/2019 5:57 PM. Comparison: June 21, 2019. Findings: The cardiomediastinal silhouette is normal. The pulmonary vasculature is normal. The lungs and pleural margins are clear. Impression: No evidence of an acute cardiopulmonary process. Electronically signed by: Colleen Burton III, MD (09/14/2019 7:53 PM) [id number] DICTATED and SIGNED BY: COLLEEN BURTON III, MD DATE: 09/14/[address] [address] IMAGING REPORT Signed PATIENT: SHAHEEN OLIVEIRA CACCOUNT: [id number] : 1975 LOCATION: ER AGE: 44 SEX: M EXAM STATUS: REG ER ORD. PHYSICIAN: SILVIO PICKARD APRN REASON: vomiting blood, alcoholism PROCEDURE: CT ABDOMEN PELVIS WO CONTRAST Exam: CT of abdomen and pelvis without contrast INDICATION: Vomiting blood, alcoholism TECHNIQUE: Sequential axial images through the abdomen and pelvis obtained without IV contrast. Sagittal and coronal reformatted images were reconstructed from the axial data and reviewed. Comparisons: 07/21/2019 FINDINGS: Heart size is normal. No pericardial effusion. Visualized lung bases are clear. No pleural effusion. Diffuse severe hepatic steatosis. Stable lesion is seen within the left hepatic lobe measuring approximately 2.5 cm. Spleen, pancreas, gallbladder and adrenals are unremarkable. No perinephric inflammation or hydronephrosis. No renal or ureteral calculi are identified. Bladder is distended and appears thin-walled. Prostate is not enlarged. Large and small bowel are unremarkable. No obstruction. No free abdominal air or fluid. No obstruction. Appendix is not identified. There remains thickening at the gastroesophageal junction similar to the prior exam. Abdominal aorta has a normal course and caliber. No enlarged abdominal lymph nodes are identified. No suspicious osseous lesions or acute fractures. IMPRESSION: 1. Since the prior study there is been interval development of severe diffuse hepatic steatosis. Correlate with LFTs. 2. Other stable findings as described above. Exposure: One or more of the following in the visualized dose reduction techniques were utilized for this examination: 1. Automated exposure control 2. Adjustment of the MA and/or KV according to patient size 3. Use of iterative of reconstructive technique Electronically signed by: Silverio Poole MD (09/14/2019 7:54 PM) [id number] DICTATED and SIGNED BY: SILVERIO POOLE MD DATE: 09/14/191953 [facility] [address] [place] [address] IMAGING REPORT Signed PATIENT: SHAHEEN OLIVEIRA CACCOUNT: [id number] : 1975 LOCATION: ER AGE: 44 SEX: M EXAM STATUS: REG ER ORD. PHYSICIAN: SILVIO PICKARD APRN REASON: etoh, loc, PT UNABLE TO HOLD STILL, TREMORS PROCEDURE: CT HEAD WO CONTRAST CT scan of the head without contrast 09/14/2019 Clinical History: Tremors. Technique: Unenhanced, contiguous, 5 mm axial sections were obtained through the head. One or more of the following individualized dose reduction techniques were utilized for this study: 1. Automated exposure control. 2. Adjustment of the mA and/or kV according to patient size. 3. Use of iterative reconstruction technique. Findings: Comparison study is dated 06/18/2019. Images are degraded by patient motion. There is mild generalized parenchymal atrophy. No acute parenchymal abnormality is seen. No extra-axial fluid collection is noted. No skull fracture is seen. Impression: No acute intracranial abnormality is seen. Electronically signed by: Alexia Long MD (09/14/2019 7:53 PM) [id number] DICTATED and SIGNED BY: ALEXIA LONG MD DATE: 09/14/191952 (SILVIO PICKARD APRN) Course & Med Decision Making Course & Med Decision Making Pertinent Labs and Imaging studies reviewed. (See chart for details) Visible tremors. Patient is pale. Alert and oriented. Speaks in full clear sentences. PERRLA. Moves all arms and legs appropriately but severe tremors are seen. Patient states he has not drank in the last 24 hours. Vomiting has been going on for the last 3 days. Mother states last night she noticed he was vomiting blood but he would not come to the emergency room. Denies chest pain, shortness of air, headache, diarrhea. Patient is given 2 mg Ativan and Zofran in the ED. I have started Protonix and fluids. Patient has vomited coffee-ground emesis in the ED. Abdomen is soft and nontender. No extremity edema. Patient is diaphoretic. CIWA 20. Hemoglobin 4.4. 2 units of PRBC ordered. Protonix drip ordered. Patient is in metabolic acidosis. I have reviewed this patient and care plan with Dr Evans. I have spoken to Dr Ortiz for admission to ICU. I have spoken to Dr Rogers. Dr Rogers is coming in to scope the patient. The patient will be taken to ICU for the procedure and the patient will be intubated by Dr Guerrero in the ICU. [] (SILVIO PICKARD APRN) Dragon Disclaimer Dragon Disclaimer This electronic medical record was generated, in whole or in part, using a voice recognition dictation system. (SILVIO PICKARD APRN) Departure Departure Impression: Primary Impression: GI bleed Additional Impression: Alcohol withdrawal Disposition: ADMITTED INPATIENT Admitting Physician: BRITTANEY (SILVIO PICKARD APRN) Condition: GOOD Referrals: HERMILA JACKSON MD (PCP) Problem Qualifiers Primary Impression: GI bleed GI bleed type/associated pathology: gastrointestinal hemorrhage with hematemesis Qualified Codes: K92.0 - Hematemesis Additional Impression: Alcohol withdrawal Complication of substance-induced condition: with unspecified complication Qualified Codes: F10.239 - Alcohol dependence with withdrawal, unspecified SILVIO PICKARD APRN Sep 14, 2019 18:09 KAREN EVANS MD Sep 14, 2019 22:04
[2019-09-14] MEDS ORDERED: PANTOPRAZOLE SODIUM IV DRIP 80 MG in IV NORMAL SALINE 100ML 100 ML IV ONE (18:30)
[2019-09-14 18:35] LABS: BASO # 0.1 x10^3/uL (0.0-0.2); BASO % 1 % (0-3); EOS % 0 % (0-3); LYMPH # 2.7 x10^3/uL (1.0-4.8); LYMPH % 18 % (24-48); MEAN CORPUSCULAR HEMOGLOBIN 23 pg (25-35); MEAN CORPUSCULAR HGB CONC 28 g/dL (31-37); MEAN CORPUSCULAR VOLUME 82 fL (79-100); MONO # 1.3 x10^3/uL (0.0-1.1); MONO % 9 % (0-9); NEUT # 10.8 x10^3/uL (1.8-7.7); NEUT % 72 % (31-73); PLATELET COUNT 174 x10^3/uL (140-400); RED BLOOD COUNT 1.91 x10^6/uL (4.30-5.70); RED CELL DISTRIBUTION WIDTH 20.1 % (11.5-14.5)
[2019-09-14 18:41] LABS: ALBUMIN 2.9 g/dL (3.4-5.0); ALBUMIN/GLOBULIN RATIO 0.9 (1.0-1.7); CALCIUM 8.4 mg/dL (8.5-10.1); CREATININE 1.3 mg/dL (0.7-1.3); GFR 60.5; POTASSIUM 3.8 mmol/L (3.5-5.1); TOTAL BILIRUBIN 0.4 mg/dL (0.2-1.0)
[2019-09-14 18:44] LABS: HEMATOCRIT 15.5 % (39.0-53.0); HEMOGLOBIN 4.4 g/dL (13.0-17.5)
[2019-09-14 18:45] LABS: PROTHROMBIN TIME PATIENT 16.4 SEC (11.7-14.0)
[2019-09-14] MEDS ORDERED: CONTRAST GIVEN. MC PRN (19:00)
[2019-09-14] MEDS ORDERED: IOHEXOL 300 MG/ML 100ML VIAL. IV ONE (19:00)
[2019-09-14 19:02] LABS: BILIRUBIN,URINE NEGATIVE (NEG); CLARITY,URINE CLEAR; COLOR,URINE YELLOW; NITRITE,URINE NEGATIVE (NEG); PH,URINE 5.5; PROTEIN,URINE NEGATIVE (NEG-TRACE); UROBILINOGEN,URINE 0.2 mg/dL (0.2 mg/dL)
[2019-09-14] MEDS: MULTIVIT INFUSN,ADULT 4,VIT K 10 ML, THIAMINE INJ 100 MG, FOLIC ACID INJ 1 MG in IV NOR... IV SCH (19:06)
[2019-09-14 19:07] LABS: BARBITURATES NEG (NEG); BENZODIAZEPINES NEG (NEG); CANNABINOIDS NEG (NEG); COCAINE NEG (NEG); METHADONE NEG (NEG); OPIATES NEG (NEG); PHENCYCLIDINE NEG (NEG)
[2019-09-14 19:11] LABS: AMPHETAMINE/METHAMPHETAMINE NEG (NEG)
[2019-09-14] MEDS ORDERED: ONDANSETRON PF 4 MG/2 ML VIAL. IV PRN (19:30)
[2019-09-14 19:39] LABS: BACTERIA,URINE 0 /HPF (0-FEW); RBC,URINE 0 /HPF (0-2); SQUAMOUS EPITHELIAL CELL,UR OCC /LPF; WBC,URINE RARE /HPF (0-4)
--- NOTE | 2019-09-14 19:55 | RAD ---
CT scan of the head without contrast 09/14/2019 Clinical History: Tremors. Technique: Unenhanced, contiguous, 5 mm axial sections were obtained through the head. One or more of the following individualized dose reduction techniques were utilized for this study: 1. Automated exposure control. 2. Adjustment of the mA and/or kV according to patient size. 3. Use of iterative reconstruction technique. Findings: Comparison study is dated 06/18/2019. Images are degraded by patient motion. There is mild generalized parenchymal atrophy. No acute parenchymal abnormality is seen. No extra-axial fluid collection is noted. No skull fracture is seen. Impression: No acute intracranial abnormality is seen. Electronically signed by: Gino Long MD (09/14/2019 7:53 PM) [id number]
--- NOTE | 2019-09-14 19:55 | RAD ---
PORTABLE CHEST 1V Clinical History: Wheezing Technique: AP view of the chest was obtained at 09/14/2019 5:57 PM. Comparison: June 21, 2019. Findings: The cardiomediastinal silhouette is normal. The pulmonary vasculature is normal. The lungs and pleural margins are clear. Impression: No evidence of an acute cardiopulmonary process. Electronically signed by: Lokesh Arreaga III, MD (09/14/2019 7:53 PM) [id number]
--- NOTE | 2019-09-14 19:57 | RAD ---
Exam: CT of abdomen and pelvis without contrast INDICATION: Vomiting blood, alcoholism TECHNIQUE: Sequential axial images through the abdomen and pelvis obtained without IV contrast. Sagittal and coronal reformatted images were reconstructed from the axial data and reviewed. Comparisons: 07/21/2019 FINDINGS: Heart size is normal. No pericardial effusion. Visualized lung bases are clear. No pleural effusion. Diffuse severe hepatic steatosis. Stable lesion is seen within the left hepatic lobe measuring approximately 2.5 cm. Spleen, pancreas, gallbladder and adrenals are unremarkable. No perinephric inflammation or hydronephrosis. No renal or ureteral calculi are identified. Bladder is distended and appears thin-walled. Prostate is not enlarged. Large and small bowel are unremarkable. No obstruction. No free abdominal air or fluid. No obstruction. Appendix is not identified. There remains thickening at the gastroesophageal junction similar to the prior exam. Abdominal aorta has a normal course and caliber. No enlarged abdominal lymph nodes are identified. No suspicious osseous lesions or acute fractures. IMPRESSION: 1. Since the prior study there is been interval development of severe diffuse hepatic steatosis. Correlate with LFTs. 2. Other stable findings as described above. Exposure: One or more of the following in the visualized dose reduction techniques were utilized for this examination: 1. Automated exposure control 2. Adjustment of the MA and/or KV according to patient size 3. Use of iterative of reconstructive technique Electronically signed by: Silverio Webster MD (09/14/2019 7:54 PM) [id number]
[2019-09-14 20:48] LABS: PLT ESTIMATE ADEQUATE (ADEQUATE)
[2019-09-14 20:49] LABS: ANISOCYTOSIS MOD; HYPOCHROMIA MOD; POIKILOCYTOSIS SLIGHT; POLYCHROMASIA OCCASIONAL
[2019-09-14 20:50] LABS: BURR CELLS FEW
[2019-09-14 20:51] LABS: ACANTHOCYTES FEW; OVALOCYTES OCC; SCHISTOCYTES OCC
[2019-09-14] MEDS ORDERED: ETOMIDATE 20 MG/10 ML VIAL. IV ONE (21:22)
[2019-09-14] MEDS ORDERED: LIDOCAINE 2% PF 5 ML VIAL. ONE (21:22)
[2019-09-14] MEDS ORDERED: ROCURONIUM 50 MG/5 ML VIAL. ONE (21:23)
[2019-09-14] MEDS ORDERED: PHENYLEPHRINE in 0.9% NACL PF 1 MG/10 ML SYRINGE. IV ONE (21:24)
--- NOTE | 2019-09-14 21:40 | PDOC2 ---
CONSULT Date of Consult Date of Consult DATE: 09/14/19 TIME: 21:37 Reason for Consult Reason for Consult: Hematemesis-with acute blood loss anemia, alcoholic liver disease.Variceal source leads differential. MW tear,malignancy, PUD, and/or D[place]ouy lesion possible as well. Plan admit/transfusional support to maintain Hg > 8 PPIand/or octreotide drips based on endocopic findings after intubation with anesthesia [facility] without alcohol abstinence no meaningful life expectancy without liver transplant is possible FUll note dictated Past Medical History Cardiovascular: CAD, HTN Pulmonary: Asthma, Other CENTRAL NERVOUS SYSTEM: Seizure GI: GERD, Gastritis Heme/Onc: Other Psych: Anxiety, Addictions, Depression Musculoskeletal: low back pain Rheumatologic: Gout Infectious disease: HIV Endocrine: Diabetes Past Surgical History Past Surgical History: No pertinent history Family History Family History: Alcohol Abuse, Hypertension Social History ALCOHOL: heavy Drugs: Cocaine, Marijuana Current Problem List Problem List Problems Medical Problems: (1) GI bleed Status: Acute Current Medications Current Medications Current Medications Ondansetron HCl (Zofran) 4 mg STK-MED ONCE .ROUTE ; Start 09/14/19 at 17:54; Stop 09/14/19 at 17:54; Status DC Lorazepam (Ativan Inj) 2 mg STK-MED ONCE .ROUTE ; Start 09/14/19 at 17:55; Stop 09/14/19 at 17:55; Status DC Lorazepam (Ativan Inj) 2 mg 1X ONCE IVP Last administered on 09/14/19at 18:05; Start 09/14/19 at 18:00; Stop 09/14/19 at 18:09; Status DC Ondansetron HCl (Zofran) 4 mg 1X ONCE IVP Last administered on 09/14/19at 18:04; Start 09/14/19 at 18:00; Stop 09/14/19 at 18:09; Status DC Pantoprazole Sodium (PROTONIX VIAL for IV PUSH) 40 mg 1X ONCE IVP Last administered on 09/14/19at 18:43; Start 09/14/19 at 18:00; Stop 09/14/19 at 18:09; Status DC Sodium Chloride 1,000 ml @ 1,000 mls/hr 1X ONCE IV Last administered on 09/14/19at 19:10; Start 09/14/19 at 18:00; Stop 09/14/19 at 19:00; Status DC Multivitamins 10 ml/Thiamine HCl 100 mg/Folic Acid 1 mg/Sodium Chloride 1,011.2 ml @ 100 mls/ hr DAILY IV Last administered on 09/14/19at 19:06; Start 09/14/19 at 18:30; Stop 09/18/19 at 19:07 Lorazepam (Ativan Inj) 2 mg PRN Q1HR PRN IV For CIWA 8-14 Last administered on 09/14/19at 18:43; Start 09/14/19 at 18:30 Lorazepam (Ativan Inj) 4 mg PRN Q1HR PRN IV For CIWA 15 or greater Last administered on 09/14/19at 19:56; Start 09/14/19 at 18:30 Pantoprazole Sodium 80 mg/ Sodium Chloride 100 ml @ 10 mls/hr 1X ONCE IV Last administered on 09/14/19at 18:44; Start 09/14/19 at 18:30; Stop 09/15/19 at 04:29 Iohexol (Omnipaque 300 Mg/ml) 75 ml 1X ONCE IV ; Start 09/14/19 at 19:00; Stop 09/14/19 at 19:01; Status DC Info (CONTRAST GIVEN -- Rx MONITORING) 1 each PRN DAILY PRN MC SEE COMMENTS; Start 09/14/19 at 19:00; Stop 09/16/19 at 18:59 Ondansetron HCl (Zofran) 4 mg PRN Q8HRS PRN IV NAUSEA/VOMITING; Start 09/14/19 at 19:30; Stop 09/15/19 at 19:29 Sodium Chloride 1,000 ml @ 125 mls/hr Q8H IV ; Start 09/14/19 at 19:19; Stop 09/15/19 at 19:18 Active Scripts Active Naltrexone Hcl 50 Mg Tablet 1 Tab PO DAILY 30 Days Ativan (Lorazepam) 1 Mg Tablet 2 Mg PO PRN Q4HRS PRN 2 Days Catapres (Clonidine Hcl) 0.1 Mg Tablet 0.1 Mg PO PRN Q1HR PRN 14 Days Protonix (Pantoprazole Sodium) 40 Mg Tablet.dr 40 Mg PO DAILYAC PRN 30 Days Tylenol (Acetaminophen) 325 Mg Tablet 650 Mg PO PRN Q4HRS PRN 30 Days Reported Vitamin B-1 (Thiamine Mononitrate) 100 Mg Tablet 1 Tab PO DAILY 30 Days Thera-M (Multivits,Th W-Fe,Other Min) 1 Each Tablet 1 Tab PO DAILY 30 Days Amlodipine Besylate 5 Mg Tablet 5 Mg PO DAILY Proair Hfa Inhaler (Albuterol Sulfate) 8.5 Gm Hfa.aer.ad 1 Puff INH PRN Q4HRS PRN Symbicort 160-4.5 Mcg Inhaler (Budesonide/Formoterol Fumarate) 10.2 Gm Hf a.aer.ad 2 Puff IH BID Theophylline (Theophylline Anhydrous) 400 Mg Tablet.er 300 Mg PO BID Allergies Allergies: Coded Allergies: No Known Drug Allergies (Unverified , 04/30/16) Vitals VITALS Vital Signs Date Time Temp Pulse Resp B/P (MAP) Pulse Ox O2 Delivery O2 Flow Rate FiO2 09/14/19 21:12 97.8 118 29 130/90 97.8 09/14/19 20:00 98 Room Air Labs Labs Laboratory Tests Test 09/14/19 18:00 09/14/19 18:54 White Blood Count 15.0 x10^3/uL (4.0-11.0) Red Blood Count 1.91 x10^6/uL (4.30-5.70) Hemoglobin 4.4 g/dL (13.0-17.5) Hematocrit 15.5 % (39.0-53.0) Mean Corpuscular Volume 82 fL (79-100) Mean Corpuscular Hemoglobin 23 pg (25-35) Mean Corpuscular Hemoglobin Concent 28 g/dL (31-37) Red Cell Distribution Width 20.1 % (11.5-14.5) Platelet Count 174 x10^3/uL (140-400) Neutrophils (%) (Auto) 72 % (31-73) Lymphocytes (%) (Auto) 18 % (24-48) Monocytes (%) (Auto) 9 % (0-9) Eosinophils (%) (Auto) 0 % (0-3) Basophils (%) (Auto) 1 % (0-3) Neutrophils # (Auto) 10.8 x10^3/uL (1.8-7.7) Lymphocytes # (Auto) 2.7 x10^3/uL (1.0-4.8) Monocytes # (Auto) 1.3 x10^3/uL (0.0-1.1) Eosinophils # (Auto) 0.0 x10^3/uL (0.0-0.7) Basophils # (Auto) 0.1 x10^3/uL (0.0-0.2) Platelet Estimate Adequate (ADEQUATE) Polychromasia Occasional Hypochromasia Mod Poikilocytosis Slight Anisocytosis Mod Ovalocytes Occ Miguel Cells Few Acanthocytes Few Schistocytes Occ Prothrombin Time 16.4 SEC (11.7-14.0) Prothromb Time International Ratio 1.4 (0.8-1.1) Sodium Level 142 mmol/L (136-145) Potassium Level 3.8 mmol/L (3.5-5.1) Chloride Level 97 mmol/L (98-107) Carbon Dioxide Level 11 mmol/L (21-32) Anion Gap 34 (6-14) Blood Urea Nitrogen 16 mg/dL (8-26) Creatinine 1.3 mg/dL (0.7-1.3) Estimated GFR (Cockcroft-Gault) 60.5 BUN/Creatinine Ratio 12 (6-20) Glucose Level 197 mg/dL (70-99) Calcium Level 8.4 mg/dL (8.5-10.1) Total Bilirubin 0.4 mg/dL (0.2-1.0) Aspartate Amino Transf (AST/SGOT) 110 U/L (15-37) Alanine Aminotransferase (ALT/SGPT) 106 U/L (16-63) Alkaline Phosphatase 48 U/L (46-116) Troponin I Quantitative < 0.017 ng/mL (0.000-0.055) Total Protein 6.0 g/dL (6.4-8.2) Albumin 2.9 g/dL (3.4-5.0) Albumin/Globulin Ratio 0.9 (1.0-1.7) Ethyl Alcohol Level 111 mg/dL (0-10) Urine Collection Type Unknown Urine Color Yellow Urine Clarity Clear Urine pH 5.5 Urine Specific [place] 1.020 Urine Protein Negative mg/dL (NEG-TRACE) Urine Glucose (UA) Negative mg/dL (NEG) Urine Ketones (Stick) 40 mg/dL (NEG) Urine Blood Trace (NEG) Urine Nitrite Negative (NEG) Urine Bilirubin Negative (NEG) Urine Urobilinogen Dipstick 0.2 mg/dL (0.2 mg/dL) Urine Leukocyte Esterase Negative (NEG) Urine RBC 0 /HPF (0-2) Urine WBC Rare /HPF (0-4) Urine Squamous Epithelial Cells Occ /LPF Urine Bacteria 0 /HPF (0-FEW) Urine Mucus Slight /LPF Urine Opiates Screen Neg (NEG) Urine Methadone Screen Neg (NEG) Urine Barbiturates Neg (NEG) Urine Phencyclidine Screen Neg (NEG) Urine Amphetamine/Methamphetamine Neg (NEG) Urine Benzodiazepines Screen Neg (NEG) Urine Cocaine Screen Neg (NEG) Urine Cannabinoids Screen Neg (NEG) Urine Ethyl Alcohol Pos (NEG) Laboratory Tests Test 09/14/19 18:00 09/14/19 18:54 White Blood Count 15.0 x10^3/uL (4.0-11.0) Red Blood Count 1.91 x10^6/uL (4.30-5.70) Hemoglobin 4.4 g/dL (13.0-17.5) Hematocrit 15.5 % (39.0-53.0) Mean Corpuscular Volume 82 fL (79-100) Mean Corpuscular Hemoglobin 23 pg (25-35) Mean Corpuscular Hemoglobin Concent 28 g/dL (31-37) Red Cell Distribution Width 20.1 % (11.5-14.5) Platelet Count 174 x10^3/uL (140-400) Neutrophils (%) (Auto) 72 % (31-73) Lymphocytes (%) (Auto) 18 % (24-48) Monocytes (%) (Auto) 9 % (0-9) Eosinophils (%) (Auto) 0 % (0-3) Basophils (%) (Auto) 1 % (0-3) Neutrophils # (Auto) 10.8 x10^3/uL (1.8-7.7) Lymphocytes # (Auto) 2.7 x10^3/uL (1.0-4.8) Monocytes # (Auto) 1.3 x10^3/uL (0.0-1.1) Eosinophils # (Auto) 0.0 x10^3/uL (0.0-0.7) Basophils # (Auto) 0.1 x10^3/uL (0.0-0.2) Platelet Estimate Adequate (ADEQUATE) Polychromasia Occasional Hypochromasia Mod Poikilocytosis Slight Anisocytosis Mod Ovalocytes Occ Miguel Cells Few Acanthocytes Few Schistocytes Occ Prothrombin Time 16.4 SEC (11.7-14.0) Prothromb Time International Ratio 1.4 (0.8-1.1) Sodium Level 142 mmol/L (136-145) Potassium Level 3.8 mmol/L (3.5-5.1) Chloride Level 97 mmol/L (98-107) Carbon Dioxide Level 11 mmol/L (21-32) Anion Gap 34 (6-14) Blood Urea Nitrogen 16 mg/dL (8-26) Creatinine 1.3 mg/dL (0.7-1.3) Estimated GFR (Cockcroft-Gault) 60.5 BUN/Creatinine Ratio 12 (6-20) Glucose Level 197 mg/dL (70-99) Calcium Level 8.4 mg/dL (8.5-10.1) Total Bilirubin 0.4 mg/dL (0.2-1.0) Aspartate Amino Transf (AST/SGOT) 110 U/L (15-37) Alanine Aminotransferase (ALT/SGPT) 106 U/L (16-63) Alkaline Phosphatase 48 U/L (46-116) Troponin I Quantitative < 0.017 ng/mL (0.000-0.055) Total Protein 6.0 g/dL (6.4-8.2) Albumin 2.9 g/dL (3.4-5.0) Albumin/Globulin Ratio 0.9 (1.0-1.7) Ethyl Alcohol Level 111 mg/dL (0-10) Urine Collection Type Unknown Urine Color Yellow Urine Clarity Clear Urine pH 5.5 Urine Specific [place] 1.020 Urine Protein Negative mg/dL (NEG-TRACE) Urine Glucose (UA) Negative mg/dL (NEG) Urine Ketones (Stick) 40 mg/dL (NEG) Urine Blood Trace (NEG) Urine Nitrite Negative (NEG) Urine Bilirubin Negative (NEG) Urine Urobilinogen Dipstick 0.2 mg/dL (0.2 mg/dL) Urine Leukocyte Esterase Negative (NEG) Urine RBC 0 /HPF (0-2) Urine WBC Rare /HPF (0-4) Urine Squamous Epithelial Cells Occ /LPF Urine Bacteria 0 /HPF (0-FEW) Urine Mucus Slight /LPF Urine Opiates Screen Neg (NEG) Urine Methadone Screen Neg (NEG) Urine Barbiturates Neg (NEG) Urine Phencyclidine Screen Neg (NEG) Urine Amphetamine/Methamphetamine Neg (NEG) Urine Benzodiazepines Screen Neg (NEG) Urine Cocaine Screen Neg (NEG) Urine Cannabinoids Screen Neg (NEG) Urine Ethyl Alcohol Pos (NEG) SURJIT KIMBLE MD Sep 14, 2019 21:40
[2019-09-14] MEDS ORDERED: fentaNYL PF VIAL 100 MCG/2 ML VIAL IV PRN ×2 (22:30)
[2019-09-14] MEDS ORDERED: EPINEPHrine SYRINGE 1 MG/10 ML SYRINGE IV ONE (23:00)
--- NOTE | 2019-09-14 23:14 | PDOC4 ---
Operative Note Operative Note EGD with epi injection Meds propofol per anesthesia Pre-op dx hematemesis Post-op dx erosive esophagitis s/p epiinjection duodenal ulcer with visible clot s/p epi injectionx 6 cc Plan PPi therapy' transfusionsal support embolization if bleeding resumes with above alcohol withdrawal precautions-longterm prognosis poor wihtout abstinence SURJIT KIMBLE MD Sep 14, 2019 23:14
[2019-09-14] MEDS: MIDAZOLAM HCL 50 MG in IV NORMAL SALINE 50ML 50 ML IV PRN (23:15)
[2019-09-14] MEDS ORDERED: EPINEPHrine SYRINGE 1 MG/10 ML SYRINGE ONE (23:19)
[2019-09-14 23:30] LABS: BASE EXCESS ABG -8 mmol/L (-3-3); HCO3 ABG 18 mmol/L (21-28); PCO2 ABG 40 mmHg (35-46); PO2 ABG 417 mmHg (75-108); SAT O2 ABG 99 % (92-99)
[2019-09-14 23:32] LABS: FIO2 ABG 100
[2019-09-14] MEDS: IV NORMAL SALINE 1000ML BAG 1,000 ML IV SCH (23:38)
[2019-09-14] MEDS: PROPOFOL 100 ML IV PRN (23:39)
[2019-09-15] VITALS (26 sets, daily range): BP systolic 109–149; BP diastolic 6–83
--- NOTE | 2019-09-15 00:13 | CONS ---
DATE OF CONSULTATION: 09/14/2019 REFERRING PHYSICIAN: Dr. Neal Ortiz REASON FOR CONSULTATION: Hematemesis, acute blood loss anemia and hypovolemic shock. HISTORY OF PRESENT ILLNESS: A 44-year-old male whose past medical history is significant for asthma, pancreatitis, history of tonsillectomy and adenoidectomy, left eye surgery, is admitted to [facility] after a recurrent alcohol binge complicated by bleeding. He has been unable to see anything on his way into the hospital, decreased visual acuity perhaps due to his hypotension. He states now can see some with his one eye. He had a history of possibly varices in the past, chronic pancreatitis, is recalcitrant alcoholic who is noncompliant and has been verbally and physically abusive to staff, particularly female nursing staff and physician assistants. Consultation is requested due to the massive bleed, hemodynamic instability and continued hematemesis. PAST MEDICAL HISTORY: Alcohol abuse, pancreatitis, tonsillectomy, adenoidectomy, left eye surgery. ALLERGIES: None. MEDICATIONS: None as he is noncompliant with all medications and other medical advice SOCIAL HISTORY: Heavy drinker, heavy smoker. FAMILY HISTORY: Noncontributory. REVIEW OF SYSTEMS: Per records. PHYSICAL EXAMINATION: GENERAL: Reveals a pale male who is tachycardic. VITAL SIGNS: Pulse 118, respirations 25, blood pressure is 130/99. HEENT: Reveals left eye being absent. LUNGS: Reveal decreased breath sounds. CARDIOVASCULAR: S1, S2 without S3, S4 or appreciable murmur. ABDOMEN: With a soft abdomen with epigastric tenderness to deep palpation which is distended. EXTREMITIES: Reveals no cyanosis, clubbing or edema. LABORATORY STUDIES: Prior to 4 units of packed cells, hemoglobin 4.4, hematocrit 15.5, white count is 15, platelet count is 174,000. Sodium 142, potassium 3.8, chloride 97, bicarb is 11, BUN 15, creatinine 1.3, glucose 197, calcium is 8.4, AST 119, ALT is 106, total protein 6.0, albumin 2.9. INR is 1.4. IMPRESSION AND PLAN: Hematemesis with history of alcohol abuse, most likely secondary to variceal bleed or gastric varices and/or esophageal Rabia-De León tear, malignancy, peptic ulcer disease certainly are possible as well. Therefore, I recommend the patient be admitted to the Intensive Care Unit and receive additional fluid and blood to total minimum of 2 liters of saline, minimum of 4 units of packed cells if not 2 additional depending upon his hemodynamics. Upon entering the ICU he will be intubated with Anesthesia and will be at bedside for anesthetic support during an emergent upper endoscopy if the patient has active bleeding from varices and the mortality rate during the stay is approximately 33% despite his young age due to liver failure and other metabolic complications which do occur with end-stage liver disease. Liver transplantation is not possible at the present time due to his continued alcohol bingeing, but maybe his only hope for long-term survival in view of his advanced abuse, cirrhosis and end-stage liver disease. SURJIT KIMBLE MD DR: ALIZA/gretel JOB#: [id number] / [id number]
[2019-09-15 00:19] LABS: HEMATOCRIT 24.4 % (39.0-53.0); HEMOGLOBIN 8.2 g/dL (13.0-17.5); RED BLOOD COUNT 2.96 x10^6/uL (4.30-5.70); RED CELL DISTRIBUTION WIDTH 19.4 % (11.5-14.5); WHITE BLOOD COUNT 7.9 x10^3/uL (4.0-11.0)
[2019-09-15] MEDS: PROPOFOL 100 ML IV PRN ×8 (00:31→22:21)
[2019-09-15] MEDS ORDERED: SODIUM BICARB ADULT 8.4% 50 MEQ/50 ML DISP.SYRIN. IV ONE (01:00)
--- NOTE | 2019-09-15 01:31 | OP ---
DATE OF SURGERY: 09/14/2019 PROCEDURE PERFORMED: Esophagogastroduodenoscopy with epinephrine injection. MEDICATIONS RECEIVED: Propofol after intubation. PREOPERATIVE DIAGNOSES: Acute blood loss anemia and hematemesis. POSTOPERATIVE DIAGNOSES: Erosive esophagitis, status post epinephrine injection and a duodenal ulcer in the first and second portions of duodenum with a visible vessel, status post epinephrine injection. PROCEDURE NOTE: Risks and benefits of procedure including risks of hemorrhage, perforation as well as due to multiorgan failure due to the patient has ongoing alcohol consumption and self-destructive and addictive behavior were discussed with the patient and family including his mother and . Informed consent was obtained. The patient was then placed in the supine position after he was intubated. Endoscope was then advanced through esophagus, stomach, and first and second portions of the duodenum. Eventually a small ulcer was noted within the duodenum. This was injected with epinephrine with much effort due to the angulation of the patient's stomach. In addition, erosive esophagitis was encountered. This was injected with cessation of the bleeding at least for this time. PPI therapy will be recommended, serial transfusional support and the patient will remain intubated overnight with potential weaning in a.m. depending upon the patient's clinical course. SURJIT KIMBLE MD DR: ALIZA/gretel JOB#: [id number] / [id number]
--- NOTE | 2019-09-15 02:02 | RAD ---
CHEST AP ONLY History: GI bleed. Intubation. Comparison: September 14, 2019 Findings: Interval intubation with endotracheal tube tip 2.4 cm above the osvaldo. Patchy right basilar opacity. No pleural effusion. No pneumothorax. Normal heart size. Impression: 1. Interval intubation. 2. Patchy right basilar opacity, likely atelectasis. Electronically signed by: Gaetano May DO (09/15/2019 1:59 AM) [id number]
--- NOTE | 2019-09-15 03:30 | NUR ---
Pt admitted to ICU room 105 at 2155. Pt brought on bed by two ED nurses. Pt alert and oriented upon admission, with periods of forgetfulness and confusion. Pt speech garbled, pt trembling in all extremities. Pt tachycardic, all other VSS. Pt afebrile. ED nurses brought pts last two units of blood to be administered. Blood rapidly transfused per Dr. Rogers. Dr. Rogers, Dr. Kidd, SATELLITE TECHNICIAN, GI nurses on unit to perform bedside EGD upon pt admission. Pt intubated at [address] MAL[address] Kidd. Pts family in waiting room; updated before and after procedure. Pt to stay intubated through the night per Dr. Rogers and Dr. Kidd. Dr. Ballesteros also made aware of pt. Received orders for sedation medications. Received order for no OG tube per Dr. Rogers, change from Protonix gtt to IVP BID, tranfuse PRBC PRN to keep Hgb above 8, okay to place connor, am labs. Pt did not tolerate Propofol only and was agitated/restless. Pt is now lightly sedated on propofol, fentanyl, versed. Pt family left after EGD finished. Obtained data for pts admission assessment from report/pt chart at this time. Pt within sight of care team, will continue to monitor.
[2019-09-15] MEDS: MIDAZOLAM HCL 50 MG in IV NORMAL SALINE 50ML 50 ML IV PRN ×4 (03:53→22:10)
[2019-09-15 04:40] LABS: BASO % 1 % (0-3); EOS % 0 % (0-3); HEMATOCRIT 21.7 % (39.0-53.0); HEMOGLOBIN 7.2 g/dL (13.0-17.5); LYMPH % 13 % (24-48); MEAN CORPUSCULAR HEMOGLOBIN 27 pg (25-35); MEAN CORPUSCULAR HGB CONC 33 g/dL (31-37); MEAN CORPUSCULAR VOLUME 81 fL (79-100); MONO # 0.7 x10^3/uL (0.0-1.1); MONO % 10 % (0-9); NEUT # 5.4 x10^3/uL (1.8-7.7); NEUT % 76 % (31-73); PLATELET COUNT 76 x10^3/uL (140-400); RED BLOOD COUNT 2.67 x10^6/uL (4.30-5.70); RED CELL DISTRIBUTION WIDTH 18.7 % (11.5-14.5); WHITE BLOOD COUNT 7.1 x10^3/uL (4.0-11.0)
[2019-09-15 04:54] LABS: CALCIUM 7.7 mg/dL (8.5-10.1); CREATININE 0.9 mg/dL (0.7-1.3); GFR 92.5
--- NOTE | 2019-09-15 06:10 | EKG ---
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
[2019-09-15] MEDS: IV NORMAL SALINE 1000ML BAG 1,000 ML IV SCH ×2 (07:10→15:39)
[2019-09-15] MEDS: PANTOPRAZOLE IV PUSH 40 MG VIAL. IVP SCH ×2 (08:50→20:32)
[2019-09-15] MEDS: MULTIVIT INFUSN,ADULT 4,VIT K 10 ML, THIAMINE INJ 100 MG, FOLIC ACID INJ 1 MG in IV NOR... IV SCH (08:51)
[2019-09-15 09:02] LABS: BASE EXCESS ABG 1 mmol/L (-3-3); HCO3 ABG 25 mmol/L (21-28); PCO2 ABG 39 mmHg (35-46); PO2 ABG 150 mmHg (75-108); SAT O2 ABG 98 % (92-99)
[2019-09-15 09:09] LABS: FIO2 ABG 40
--- NOTE | 2019-09-15 09:23 | PDOC ---
Objective: Objective: No bleeding per nurse. Vital Signs: Vital Signs Date Time Temp Pulse Resp B/P (MAP) Pulse Ox O2 Delivery O2 Flow Rate FiO2 09/15/19 07:57 98 Ventilator 09/15/19 06:00 81 16 111/53 (72) 09/15/19 04:00 98.8 98.8 Labs: Laboratory Tests Test 09/14/19 18:00 09/14/19 18:54 09/14/19 23:25 09/15/19 04:25 White Blood Count 15.0 x10^3/uL 7.1 x10^3/uL Red Blood Count 1.91 x10^6/uL 2.67 x10^6/uL Hemoglobin 4.4 g/dL 7.2 g/dL Hematocrit 15.5 % 21.7 % Mean Corpuscular Volume 82 fL 81 fL Mean Corpuscular Hemoglobin 23 pg 27 pg Mean Corpuscular Hemoglobin Concent 28 g/dL 33 g/dL Red Cell Distribution Width 20.1 % 18.7 % Platelet Count 174 x10^3/uL 76 x10^3/uL Neutrophils (%) (Auto) 72 % 76 % Lymphocytes (%) (Auto) 18 % 13 % Monocytes (%) (Auto) 9 % 10 % Eosinophils (%) (Auto) 0 % 0 % Basophils (%) (Auto) 1 % 1 % Neutrophils # (Auto) 10.8 x10^3/uL 5.4 x10^3/uL Lymphocytes # (Auto) 2.7 x10^3/uL 1.0 x10^3/uL Monocytes # (Auto) 1.3 x10^3/uL 0.7 x10^3/uL Eosinophils # (Auto) 0.0 x10^3/uL 0.0 x10^3/uL Basophils # (Auto) 0.1 x10^3/uL 0.0 x10^3/uL Platelet Estimate Adequate Polychromasia Occasional Hypochromasia Mod Poikilocytosis Slight Anisocytosis Mod Ovalocytes Occ [place] Cells Few Acanthocytes Few Schistocytes Occ Prothrombin Time 16.4 SEC Prothromb Time International Ratio 1.4 Sodium Level 142 mmol/L 144 mmol/L Potassium Level 3.8 mmol/L 4.0 mmol/L Chloride Level 97 mmol/L 107 mmol/L Carbon Dioxide Level 11 mmol/L 27 mmol/L Anion Gap 34 10 Blood Urea Nitrogen 16 mg/dL 13 mg/dL Creatinine 1.3 mg/dL 0.9 mg/dL Estimated GFR (Cockcroft-Gault) 60.5 92.5 BUN/Creatinine Ratio 12 Glucose Level 197 mg/dL 107 mg/dL Calcium Level 8.4 mg/dL 7.7 mg/dL Total Bilirubin 0.4 mg/dL Aspartate Amino Transf (AST/SGOT) 110 U/L Alanine Aminotransferase (ALT/SGPT) 106 U/L Alkaline Phosphatase 48 U/L Troponin I Quantitative < 0.017 ng/mL Total Protein 6.0 g/dL Albumin 2.9 g/dL Albumin/Globulin Ratio 0.9 Ethyl Alcohol Level 111 mg/dL Urine Collection Type Unknown Urine Color Yellow Urine Clarity Clear Urine pH 5.5 Urine Specific [place] 1.020 Urine Protein Negative mg/dL Urine Glucose (UA) Negative mg/dL Urine Ketones (Stick) 40 mg/dL Urine Blood Trace Urine Nitrite Negative Urine Bilirubin Negative Urine Urobilinogen Dipstick 0.2 mg/dL Urine Leukocyte Esterase Negative Urine RBC 0 /HPF Urine WBC Rare /HPF Urine Squamous Epithelial Cells Occ /LPF Urine Bacteria 0 /HPF Urine Mucus Slight /LPF Urine Opiates Screen Neg Urine Methadone Screen Neg Urine Barbiturates Neg Urine Phencyclidine Screen Neg Urine Amphetamine/Methamphetamine Neg Urine Benzodiazepines Screen Neg Urine Cocaine Screen Neg Urine Cannabinoids Screen Neg Urine Ethyl Alcohol Pos O2 Saturation 99 % Arterial Blood pH 7.28 Arterial Blood pCO2 at Patient Temp 40 mmHg Arterial Blood pO2 at Patient Temp 417 mmHg Arterial Blood HCO3 18 mmol/L Arterial Blood Base Excess -8 mmol/L FiO2 100 Test 09/15/19 08:55 O2 Saturation 98 % Arterial Blood pH 7.42 Arterial Blood pCO2 at Patient Temp 39 mmHg Arterial Blood pO2 at Patient Temp 150 mmHg Arterial Blood HCO3 25 mmol/L Arterial Blood Base Excess 1 mmol/L FiO2 40 Imaging: EGD 09/14 Erosive esophagitis, status post epinephrine injectionand a duodenal ulcer in the first and second portions of duodenum with a visible vessel, status post epinephrine injection. PE: GEN: intubated LUNGS: vent, clear anteriorly HEART: RRR ABD: soft, quiet NEURO/PSYCH: sedated A/P: Hematemesis Anemia - improved w/ transfusions Erosive esophagitis, DU - s/p endotherapy Alcohol abuse GERD H/o recurrent pancreatitis - in the past w/ resp failure/agitation/withdrawal requiring extended hospital stay on vent, TPN, octreotide H/o hepatic steatosis, hepatic lesions H/o psych/social issues -- Continue PPI, monitor for bleeding. Hemodynamically unstable?: Yes Is patient in severe pain?: No Is NPO status required?: Yes MESSI GORE Sep 15, 2019 09:23
--- NOTE | 2019-09-15 09:28 | CONS ---
DATE OF CONSULTATION: PULMONARY CONSULTATION ATTENDING PHYSICIAN: Gordon Rogers MD REASON FOR CONSULTATION: Respiratory failure, GI bleed. HISTORY OF PRESENT ILLNESS: The patient is a 44-year-old male who has history of alcoholism. He was brought into the hospital with coffee-ground emesis and LOC for the last 3 days. The patient was seen by GI. His hemoglobin was as low as 4.4. He underwent EGD. However, he was intubated with propofol for the procedure. He was found to have erosive esophagitis. He underwent epinephrine injection and a duodenal ulcer was also noted in the first and second portion of the duodenum with a visible vessel, which was injected. He received packed RBCs overnight, multiple. His latest hemoglobin is 7.2. His ABGs showed a pH of 7.28, pCO2 of 40 and a pO2 of 417 initially and it is now 7.42 pH with a pCO2 of 39 and a pO2 of 149 on 40% FiO2. I have reviewed the patient's chest x-ray. There is possible right lower lobe atelectasis. I have been asked to see him for further evaluation. PAST MEDICAL HISTORY: Significant for history of alcoholism, likely alcoholic liver disease. No other history available. PAST SURGICAL HISTORY: Unknown. ALLERGIES: None. CURRENT MEDICATIONS: Reviewed as listed in the MRAD. REVIEW OF SYSTEMS: Unable to obtain from the patient. SOCIAL HISTORY: History of alcoholism. PHYSICAL EXAMINATION: GENERAL: He is sedated and intubated. VITAL SIGNS: Blood pressure stable, pulse ox 98%. HEENT: Sclerae nonicteric. NECK: Supple. LUNGS: Clear. CARDIOVASCULAR: With a regular rate. ABDOMEN: Soft. EXTREMITIES: With no pitting edema. LABORATORY DATA: Reviewed. White cell count is down to 7.1, hemoglobin 7.2 and platelets are 76. BUN is 13, creatinine 0.9. Albumin 2.9. IMPRESSION: 1. Acute respiratory failure secondary to acute gastrointestinal bleed along with hepatic encephalopathy. 2. History of alcoholism, presented with acute gastrointestinal bleed. 3. Status post EGD, was found to have a duodenal ulcer in the first and second portion of the duodenum with a visible vessel. Status post epinephrine injection. 4. Acute blood loss anemia. 5. Mild coagulopathy along with thrombocytopenia. RECOMMENDATIONS: 1. Continue present assist control mode. 2. Watch for stability of the hemoglobin. 3. Once hemoglobin remained stable in the next 24 hours and no further evidence of GI bleed, we will stop sedation and hopefully proceed with the weaning trial. 4. Monitor chest x-ray. 5. Monitor hemoglobin. 6. Follow GI recommendations. 7. PPI. 8. SCDs. 9. Discussed with RN and RT. Critical care time 35 minutes. KARLA LOVING MD DR: RENETTA/gretel JOB#: [id number] / [id number]
--- NOTE | 2019-09-15 10:19 | PDOC1 ---
History and Physical Date of Admission Date of Admission DATE: 09/15/19 TIME: 10:19 Identification/Chief Complaint Chief Complaint SEEN IN ER WITH UGI BLEEDING middle-aged white male who drinks a half gallon of vodka a day We admitted him at least 4 times in the LAST 2 months Once again he presents with alcohol withdrawal and abdominal pain Has alcoholic pancreatitis , UGI BLEEDING, Severe HGB =4.4 has been binge drinking for the last 5 or 6 months but mother states is gotten really bad over the last month and he'll try to stop and he goes back to drink ing. . PRESENTED WITH tremors, nausea, vomiting coffee ground blood, LOC for the last 3 days. Denies hearing voices are seen things aren't there Past Medical History Past Medical History Past Medical History Past Medical History Past Medical History: Asthma, Pancreatitis Past Surgical History: Tonsillectomy Additional Past Surgical Histo: adnoidectomy, left eye Smoking Status: Never Smoker Alcohol Use: Heavy Drug Use: None fhx alcohol abuse Cardiovascular: CAD, HTN Pulmonary: Asthma, Other CENTRAL NERVOUS SYSTEM: Seizure GI: GERD, Gastritis Heme/Onc: Other Psych: Anxiety, Addictions, Depression Musculoskeletal: low back pain Rheumatologic: Gout Infectious disease: HIV Endocrine: Diabetes Past Surgical History Past Surgical History: No pertinent history Family History Family History: Alcohol Abuse, Hypertension Social History Smoke: <1 pack per day ALCOHOL: heavy Drugs: Cocaine, Marijuana Current Problem List Problem List Problems Medical Problems: (1) GI bleed Status: Acute Current Medications Current Medications Current Medications Ondansetron HCl (Zofran) 4 mg STK-MED ONCE .ROUTE ; Start 09/14/19 at 17:54; Stop 09/14/19 at 17:54; Status DC Lorazepam (Ativan Inj) 2 mg STK-MED ONCE .ROUTE ; Start 09/14/19 at 17:55; Stop 09/14/19 at 17:55; Status DC Lorazepam (Ativan Inj) 2 mg 1X ONCE IVP Last administered on 09/14/19at 18:05; Start 09/14/19 at 18:00; Stop 09/14/19 at 18:09; Status DC Ondansetron HCl (Zofran) 4 mg 1X ONCE IVP Last administered on 09/14/19at 18:04; Start 09/14/19 at 18:00; Stop 09/14/19 at 18:09; Status DC Pantoprazole Sodium (PROTONIX VIAL for IV PUSH) 40 mg 1X ONCE IVP Last administered on 09/14/19at 18:43; Start 09/14/19 at 18:00; Stop 09/14/19 at 18:09; Status DC Sodium Chloride 1,000 ml @ 1,000 mls/hr 1X ONCE IV Last administered on 09/14/19at 19:10; Start 09/14/19 at 18:00; Stop 09/14/19 at 19:00; Status DC Multivitamins 10 ml/Thiamine HCl 100 mg/Folic Acid 1 mg/Sodium Chloride 1,011.2 ml @ 100 mls/ hr DAILY IV Last administered on 09/15/19at 08:51; Start 09/14/19 at 18:30; Stop 09/18/19 at 19:07 Lorazepam (Ativan Inj) 2 mg PRN Q1HR PRN IV For CIWA 8-14 Last administered on 09/14/19at 18:43; Start 09/14/19 at 18:30 Lorazepam (Ativan Inj) 4 mg PRN Q1HR PRN IV For CIWA 15 or greater Last administered on 09/14/19at 19:56; Start 09/14/19 at 18:30 Pantoprazole Sodium 80 mg/ Sodium Chloride 100 ml @ 10 mls/hr 1X ONCE IV Last administered on 09/14/19at 18:44; Start 09/14/19 at 18:30; Stop 09/15/19 at 04:29; Status DC Iohexol (Omnipaque 300 Mg/ml) 75 ml 1X ONCE IV ; Start 09/14/19 at 19:00; Stop 09/14/19 at 19:01; Status DC Info (CONTRAST GIVEN -- Rx MONITORING) 1 each PRN DAILY PRN MC SEE COMMENTS; Start 09/14/19 at 19:00; Stop 09/16/19 at 18:59 Ondansetron HCl (Zofran) 4 mg PRN Q8HRS PRN IV NAUSEA/VOMITING; Start 09/14/19 at 19:30; Stop 09/15/19 at 19:29 Sodium Chloride 1,000 ml @ 125 mls/hr Q8H IV Last administered on 09/15/19at 07:10; Start 09/14/19 at 19:19; Stop 09/15/19 at 19:18 Etomidate (Amidate) 20 mg STK-MED ONCE IV ; Start 09/14/19 at 21:22; Stop 09/14/19 at 21:22; Status DC Lidocaine HCl (Lidocaine Pf 2% Vial) 5 ml STK-MED ONCE .ROUTE ; Start 09/14/19 at 21:22; Stop 09/14/19 at 21:22; Status DC Rocuronium [place] (Zemuron) 50 mg STK-MED ONCE .ROUTE ; Start 09/14/19 at 21:23; Stop 09/14/19 at 21:23; Status DC Phenylephrine HCl (PHENYLEPHRINE in 0.9% NACL PF) 1 mg STK-MED ONCE IV ; Start 09/14/19 at 21:24; Stop 09/14/19 at 21:24; Status DC Propofol 100 ml @ 0 mls/hr CONT PRN IV SEE PROTOCOL Last administered on 09/15/19at 07:09; Start 09/14/19 at 22:30 Fentanyl Citrate (Fentanyl 2ml Vial) 25 mcg PRN Q1HR PRN IV SEE COMMENTS; Start 09/14/19 at 22:30; Stop 09/15/19 at 06:26; Status DC Fentanyl Citrate (Fentanyl 2ml Vial) 50 mcg PRN Q1HR PRN IV SEE COMMENTS; Start 09/14/19 at 22:30; Stop 09/15/19 at 06:26; Status DC Epinephrine HCl (EPINEPHrine SYRINGE) 1 mg STK-MED ONCE .ROUTE ; Start 09/14/19 at 23:19; Stop 09/14/19 at 23:20; Status DC Pantoprazole Sodium (PROTONIX VIAL for IV PUSH) 40 mg BID IVP Last administered on 09/15/19at 08:50; Start 09/15/19 at 09:00 Epinephrine HCl (EPINEPHrine SYRINGE) 1 mg STK-MED ONCE IV Last administered on 09/14/19at 23:00; Start 09/14/19 at 23:00; Stop 09/14/19 at 23:29; Status DC Fentanyl Citrate 30 ml @ 0 mls/hr CONT PRN IV SEE PROTOCOL Last administered on 09/15/19at 07:09; Start 09/14/19 at 23:45 Midazolam HCl 50 mg/Sodium Chloride 50 ml @ 0 mls/hr CONT PRN IV SEE PROTOCOL Last administered on 09/15/19at 03:53; Start 09/14/19 at 23:45 Sodium Bicarbonate (Sodium Bicarb Adult 8.4% Syr) 50 meq 1X ONCE IV Last administered on 09/15/19at 01:25; Start 09/15/19 at 01:00; Stop 09/15/19 at 01:01; Status DC Active Scripts Active Naltrexone Hcl 50 Mg Tablet 1 Tab PO DAILY 30 Days Ativan (Lorazepam) 1 Mg Tablet 2 Mg PO PRN Q4HRS PRN 2 Days Catapres (Clonidine Hcl) 0.1 Mg Tablet 0.1 Mg PO PRN Q1HR PRN 14 Days Protonix (Pantoprazole Sodium) 40 Mg Tablet.dr 40 Mg PO DAILYAC PRN 30 Days Tylenol (Acetaminophen) 325 Mg Tablet 650 Mg PO PRN Q4HRS PRN 30 Days Reported Vitamin B-1 (Thiamine Mononitrate) 100 Mg Tablet 1 Tab PO DAILY 30 Days Thera-M (Multivits,Th W-Fe,Other Min) 1 Each Tablet 1 Tab PO DAILY 30 Days Amlodipine Besylate 5 Mg Tablet 5 Mg PO DAILY Proair Hfa Inhaler (Albuterol Sulfate) 8.5 Gm Hfa.aer.ad 1 Puff INH PRN Q4HRS PRN Symbicort 160-4.5 Mcg Inhaler (Budesonide/Formoterol Fumarate) 10.2 Gm Hfa.aer.ad 2 Puff IH BID Theophylline (Theophylline Anhydrous) 400 Mg Tablet.er 300 Mg PO BID Allergies Allergies: Coded Allergies: No Known Drug Allergies (Unverified , 04/30/16) ROS Review of System Review of Systems Review of Systems GI: abdominal pain, nausea, vomiting, denies bloody stools or denies diarrhea [] Neurologic: Tremors. Light headedness, vision changes. Denies headache, focal weakness or sensory changes [] 14 pt systems were reviewed and found to be within normal limits, except as documented ALLERGY AND IMMUNOLOGY: No: Hives, Insect Bite Sensitivity, Itchy/Watery Eyes, Nasal Congestion, Post Nasal Drip, Seasonal Allergies, Other Hematological and Lymphatic: YES: Bleeding Problems Gastrointestinal: Yes Abdominal Pain Musculoskeletal: Yes Joint Stiffness, Yes Muscular Weakness Neurological: Yes Gait Disturbance Physical Exam Physical Exam prior to intubation Eyes: PERRLA, EOMI, conjunctiva normal, no discharge. [] Neck: Normal range of motion, no tenderness, supple, no stridor. [] Cardiovascular:Heart rate tachy regular rhythm, no murmur [] Lungs & Thorax: Bilateral breath sounds inspiratory expiratory wheezing to auscultation [] Abdomen: Bowel sounds normal, soft, generalized tenderness, no masses, no pulsatile masses. [] Skin: Warm, moist, pale, no erythema, no rash. [] Back: No tenderness, no CVA tenderness. [] Extremities:Tremors, No tenderness, no cyanosis, no clubbing, ROM intact, no edema. [] Neurologic: Alert and oriented X 3, normal motor function, normal sensory function, no focal deficits noted. [] Psychologic: Affect normal, judgment POOR, mood normal. General: Oriented X3, Cooperative, No acute distress HEENT: Atraumatic, EOMI Lungs: Clear to auscultation Breasts: Not examined Abdomen: Soft Rectal Exam: not examined Extremities: No cyanosis Neuro: Normal speech, Cranial nerves 3-12 NL Psych/Mental Status: Mood NL Vitals Vitals Vital Signs Date Time Temp Pulse Resp B/P (MAP) Pulse Ox O2 Delivery O2 Flow Rate FiO2 09/15/19 10:02 97 Ventilator 09/15/19 09:54 99.4 76 16 115/53 99.4 Labs Labs Laboratory Tests Test 09/14/19 00:12 09/14/19 18:00 09/14/19 18:54 09/14/19 23:25 White Blood Count 7.9 x10^3/uL (4.0-11.0) 15.0 x10^3/uL (4.0-11.0) Red Blood Count 2.96 x10^6/uL (4.30-5.70) 1.91 x10^6/uL (4.30-5.70) Hemoglobin 8.2 g/dL (13.0-17.5) 4.4 g/dL (13.0-17.5) Hematocrit 24.4 % (39.0-53.0) 15.5 % (39.0-53.0) Mean Corpuscular Volume 82 fL (79-100) 82 fL (79-100) Mean Corpuscular Hemoglobin 28 pg (25-35) 23 pg (25-35) Mean Corpuscular Hemoglobin Concent 34 g/dL (31-37) 28 g/dL (31-37) Red Cell Distribution Width 19.4 % (11.5-14.5) 20.1 % (11.5-14.5) Platelet Count 80 x10^3/uL (140-400) 174 x10^3/uL (140-400) Neutrophils (%) (Auto) 72 % (31-73) Lymphocytes (%) (Auto) 18 % (24-48) Monocytes (%) (Auto) 9 % (0-9) Eosinophils (%) (Auto) 0 % (0-3) Basophils (%) (Auto) 1 % (0-3) Neutrophils # (Auto) 10.8 x10^3/uL (1.8-7.7) Lymphocytes # (Auto) 2.7 x10^3/uL (1.0-4.8) Monocytes # (Auto) 1.3 x10^3/uL (0.0-1.1) Eosinophils # (Auto) 0.0 x10^3/uL (0.0-0.7) Basophils # (Auto) 0.1 x10^3/uL (0.0-0.2) Platelet Estimate Adequate (ADEQUATE) Polychromasia Occasional Hypochromasia Mod Poikilocytosis Slight Anisocytosis Mod Ovalocytes Occ [place] Cells Few Acanthocytes Few Schistocytes Occ Prothrombin Time 16.4 SEC (11.7-14.0) Prothromb Time International Ratio 1.4 (0.8-1.1) Sodium Level 142 mmol/L (136-145) Potassium Level 3.8 mmol/L (3.5-5.1) Chloride Level 97 mmol/L (98-107) Carbon Dioxide Level 11 mmol/L (21-32) Anion Gap 34 (6-14) Blood Urea Nitrogen 16 mg/dL (8-26) Creatinine 1.3 mg/dL (0.7-1.3) Estimated GFR (Cockcroft-Gault) 60.5 BUN/Creatinine Ratio 12 (6-20) Glucose Level 197 mg/dL (70-99) Calcium Level 8.4 mg/dL (8.5-10.1) Total Bilirubin 0.4 mg/dL (0.2-1.0) Aspartate Amino Transf (AST/SGOT) 110 U/L (15-37) Alanine Aminotransferase (ALT/SGPT) 106 U/L (16-63) Alkaline Phosphatase 48 U/L (46-116) Troponin I Quantitative < 0.017 ng/mL (0.000-0.055) Total Protein 6.0 g/dL (6.4-8.2) Albumin 2.9 g/dL (3.4-5.0) Albumin/Globulin Ratio 0.9 (1.0-1.7) Ethyl Alcohol Level 111 mg/dL (0-10) Urine Collection Type Unknown Urine Color Yellow Urine Clarity Clear Urine pH 5.5 Urine Specific [place] 1.020 Urine Protein Negative mg/dL (NEG-TRACE) Urine Glucose (UA) Negative mg/dL (NEG) Urine Ketones (Stick) 40 mg/dL (NEG) Urine Blood Trace (NEG) Urine Nitrite Negative (NEG) Urine Bilirubin Negative (NEG) Urine Urobilinogen Dipstick 0.2 mg/dL (0.2 mg/dL) Urine Leukocyte Esterase Negative (NEG) Urine RBC 0 /HPF (0-2) Urine WBC Rare /HPF (0-4) Urine Squamous Epithelial Cells Occ /LPF Urine Bacteria 0 /HPF (0-FEW) Urine Mucus Slight /LPF Urine Opiates Screen Neg (NEG) Urine Methadone Screen Neg (NEG) Urine Barbiturates Neg (NEG) Urine Phencyclidine Screen Neg (NEG) Urine Amphetamine/Methamphetamine Neg (NEG) Urine Benzodiazepines Screen Neg (NEG) Urine Cocaine Screen Neg (NEG) Urine Cannabinoids Screen Neg (NEG) Urine Ethyl Alcohol Pos (NEG) O2 Saturation 99 % (92-99) Arterial Blood pH 7.28 (7.35-7.45) Arterial Blood pCO2 at Patient Temp 40 mmHg (35-46) Arterial Blood pO2 at Patient Temp 417 mmHg (75-108) Arterial Blood HCO3 18 mmol/L (21-28) Arterial Blood Base Excess -8 mmol/L (-3-3) FiO2 100 Test 09/15/19 04:25 09/15/19 08:55 White Blood Count 7.1 x10^3/uL (4.0-11.0) Red Blood Count 2.67 x10^6/uL (4.30-5.70) Hemoglobin 7.2 g/dL (13.0-17.5) Hematocrit 21.7 % (39.0-53.0) Mean Corpuscular Volume 81 fL (79-100) Mean Corpuscular Hemoglobin 27 pg (25-35) Mean Corpuscular Hemoglobin Concent 33 g/dL (31-37) Red Cell Distribution Width 18.7 % (11.5-14.5) Platelet Count 76 x10^3/uL (140-400) Neutrophils (%) (Auto) 76 % (31-73) Lymphocytes (%) (Auto) 13 % (24-48) Monocytes (%) (Auto) 10 % (0-9) Eosinophils (%) (Auto) 0 % (0-3) Basophils (%) (Auto) 1 % (0-3) Neutrophils # (Auto) 5.4 x10^3/uL (1.8-7.7) Lymphocytes # (Auto) 1.0 x10^3/uL (1.0-4.8) Monocytes # (Auto) 0.7 x10^3/uL (0.0-1.1) Eosinophils # (Auto) 0.0 x10^3/uL (0.0-0.7) Basophils # (Auto) 0.0 x10^3/uL (0.0-0.2) Sodium Level 144 mmol/L (136-145) Potassium Level 4.0 mmol/L (3.5-5.1) Chloride Level 107 mmol/L (98-107) Carbon Dioxide Level 27 mmol/L (21-32) Anion Gap 10 (6-14) Blood Urea Nitrogen 13 mg/dL (8-26) Creatinine 0.9 mg/dL (0.7-1.3) Estimated GFR (Cockcroft-Gault) 92.5 Glucose Level 107 mg/dL (70-99) Calcium Level 7.7 mg/dL (8.5-10.1) O2 Saturation 98 % (92-99) Arterial Blood pH 7.42 (7.35-7.45) Arterial Blood pCO2 at Patient Temp 39 mmHg (35-46) Arterial Blood pO2 at Patient Temp 150 mmHg (75-108) Arterial Blood HCO3 25 mmol/L (21-28) Arterial Blood Base Excess 1 mmol/L (-3-3) FiO2 40 Laboratory Tests Test 09/14/19 18:00 09/14/19 18:54 09/14/19 23:25 09/15/19 04:25 White Blood Count 15.0 x10^3/uL (4.0-11.0) 7.1 x10^3/uL (4.0-11.0) Red Blood Count 1.91 x10^6/uL (4.30-5.70) 2.67 x10^6/uL (4.30-5.70) Hemoglobin 4.4 g/dL (13.0-17.5) 7.2 g/dL (13.0-17.5) Hematocrit 15.5 % (39.0-53.0) 21.7 % (39.0-53.0) Mean Corpuscular Volume 82 fL (79-100) 81 fL (79-100) Mean Corpuscular Hemoglobin 23 pg (25-35) 27 pg (25-35) Mean Corpuscular Hemoglobin Concent 28 g/dL (31-37) 33 g/dL (31-37) Red Cell Distribution Width 20.1 % (11.5-14.5) 18.7 % (11.5-14.5) Platelet Count 174 x10^3/uL (140-400) 76 x10^3/uL (140-400) Neutrophils (%) (Auto) 72 % (31-73) 76 % (31-73) Lymphocytes (%) (Auto) 18 % (24-48) 13 % (24-48) Monocytes (%) (Auto) 9 % (0-9) 10 % (0-9) Eosinophils (%) (Auto) 0 % (0-3) 0 % (0-3) Basophils (%) (Auto) 1 % (0-3) 1 % (0-3) Neutrophils # (Auto) 10.8 x10^3/uL (1.8-7.7) 5.4 x10^3/uL (1.8-7.7) Lymphocytes # (Auto) 2.7 x10^3/uL (1.0-4.8) 1.0 x10^3/uL (1.0-4.8) Monocytes # (Auto) 1.3 x10^3/uL (0.0-1.1) 0.7 x10^3/uL (0.0-1.1) Eosinophils # (Auto) 0.0 x10^3/uL (0.0-0.7) 0.0 x10^3/uL (0.0-0.7) Basophils # (Auto) 0.1 x10^3/uL (0.0-0.2) 0.0 x10^3/uL (0.0-0.2) Platelet Estimate Adequate (ADEQUATE) Polychromasia Occasional Hypochromasia Mod Poikilocytosis Slight Anisocytosis Mod Ovalocytes Occ [place] Cells Few Acanthocytes Few Schistocytes Occ Prothrombin Time 16.4 SEC (11.7-14.0) Prothromb Time International Ratio 1.4 (0.8-1.1) Sodium Level 142 mmol/L (136-145) 144 mmol/L (136-145) Potassium Level 3.8 mmol/L (3.5-5.1) 4.0 mmol/L (3.5-5.1) Chloride Level 97 mmol/L (98-107) 107 mmol/L (98-107) Carbon Dioxide Level 11 mmol/L (21-32) 27 mmol/L (21-32) Anion Gap 34 (6-14) 10 (6-14) Blood Urea Nitrogen 16 mg/dL (8-26) 13 mg/dL (8-26) Creatinine 1.3 mg/dL (0.7-1.3) 0.9 mg/dL (0.7-1.3) Estimated GFR (Cockcroft-Gault) 60.5 92.5 BUN/Creatinine Ratio 12 (6-20) Glucose Level 197 mg/dL (70-99) 107 mg/dL (70-99) Calcium Level 8.4 mg/dL (8.5-10.1) 7.7 mg/dL (8.5-10.1) Total Bilirubin 0.4 mg/dL (0.2-1.0) Aspartate Amino Transf (AST/SGOT) 110 U/L (15-37) Alanine Aminotransferase (ALT/SGPT) 106 U/L (16-63) Alkaline Phosphatase 48 U/L (46-116) Troponin I Quantitative < 0.017 ng/mL (0.000-0.055) Total Protein 6.0 g/dL (6.4-8.2) Albumin 2.9 g/dL (3.4-5.0) Albumin/Globulin Ratio 0.9 (1.0-1.7) Ethyl Alcohol Level 111 mg/dL (0-10) Urine Collection Type Unknown Urine Color Yellow Urine Clarity Clear Urine pH 5.5 Urine Specific [place] 1.020 Urine Protein Negative mg/dL (NEG-TRACE) Urine Glucose (UA) Negative mg/dL (NEG) Urine Ketones (Stick) 40 mg/dL (NEG) Urine Blood Trace (NEG) Urine Nitrite Negative (NEG) Urine Bilirubin Negative (NEG) Urine Urobilinogen Dipstick 0.2 mg/dL (0.2 mg/dL) Urine Leukocyte Esterase Negative (NEG) Urine RBC 0 /HPF (0-2) Urine WBC Rare /HPF (0-4) Urine Squamous Epithelial Cells Occ /LPF Urine Bacteria 0 /HPF (0-FEW) Urine Mucus Slight /LPF Urine Opiates Screen Neg (NEG) Urine Methadone Screen Neg (NEG) Urine Barbiturates Neg (NEG) Urine Phencyclidine Screen Neg (NEG) Urine Amphetamine/Methamphetamine Neg (NEG) Urine Benzodiazepines Screen Neg (NEG) Urine Cocaine Screen Neg (NEG) Urine Cannabinoids Screen Neg (NEG) Urine Ethyl Alcohol Pos (NEG) O2 Saturation 99 % (92-99) Arterial Blood pH 7.28 (7.35-7.45) Arterial Blood pCO2 at Patient Temp 40 mmHg (35-46) Arterial Blood pO2 at Patient Temp 417 mmHg (75-108) Arterial Blood HCO3 18 mmol/L (21-28) Arterial Blood Base Excess -8 mmol/L (-3-3) FiO2 100 Test 09/15/19 08:55 O2 Saturation 98 % (92-99) Arterial Blood pH 7.42 (7.35-7.45) Arterial Blood pCO2 at Patient Temp 39 mmHg (35-46) Arterial Blood pO2 at Patient Temp 150 mmHg (75-108) Arterial Blood HCO3 25 mmol/L (21-28) Arterial Blood Base Excess 1 mmol/L (-3-3) FiO2 40 Images Images CHEST AP ONLY History: GI bleed. Intubation. Comparison: September 14, 2019 Findings: Interval intubation with endotracheal tube tip 2.4 cm above the osvaldo. Patchy right basilar opacity. No pleural effusion. No pneumothorax. Normal heart size. Impression: 1. Interval intubation. 2. Patchy right basilar opacity, likely atelectasis. Electronically signed by: Gaetano Barnes DO (09/15/2019 1:59 AM) [id number] DICTATED and SIGNED BY: GAETANO BARNES DO Exam: CT of abdomen and pelvis without contrast INDICATION: Vomiting blood, alcoholism TECHNIQUE: Sequential axial images through the abdomen and pelvis obtained without IV contrast. Sagittal and coronal reformatted images were reconstructed from the axial data and reviewed. Comparisons: 07/21/2019 FINDINGS: Heart size is normal. No pericardial effusion. Visualized lung bases are clear. No pleural effusion. Diffuse severe hepatic steatosis. Stable lesion is seen within the left hepatic lobe measuring approximately 2.5 cm. Spleen, pancreas, gallbladder and adrenals are unremarkable. No perinephric inflammation or hydronephrosis. No renal or ureteral calculi are identified. Bladder is distended and appears thin-walled. Prostate is not enlarged. Large and small bowel are unremarkable. No obstruction. No free abdominal air or fluid. No obstruction. Appendix is not identified. There remains thickening at the gastroesophageal junction similar to the prior exam. Abdominal aorta has a normal course and caliber. No enlarged abdominal lymph nodes are identified. No suspicious osseous lesions or acute fractures. IMPRESSION: 1. Since the prior study there is been interval development of severe diffuse hepatic steatosis. Correlate with LFTs. 2. Other stable findings as described above. Exposure: One or more of the following in the visualized dose reduction techniques were utilized for this examination: 1. Automated exposure control 2. Adjustment of the MA and/or KV according to patient size 3. Use of iterative of reconstructive technique Electronically signed by: Silverio Poole MD (09/14/2019 7:54 PM) [id number] DICTATED and SIGNED BY: SILVERIO POOLE MD DATE: 09/14/191953 VTE Prophylaxis Ordered VTE Prophylaxis Devices: Yes VTE Pharmacological Prophylaxi: Contraindicated Assessment/Plan Assessment/Plan IMPRESSION: 1. acute UGI BLEED 2. severe diffuse hepatic steatosis. 3. Erosive esophagitis, epinephrine injection duodenal ulcer in the first and second portions of duodenum with a visible vessel, status post epinephrine injection. 4. polysubstance abuse, ALCOHOL, COCAINE, THC PLAN ADMIT ICU status post epinephrine injection second portions of duodenum with a visible GI CONSULTED IN ER TRANSFUSED PRN alcohol withdrawal protocol SCD'S pat consult VENT SUPPORT PROTONIX DRIP 40 min cc time Hemodynamically unstable?: Yes Is patient in severe pain?: No Is NPO status required?: Yes MENDOZA NICOLE MD Sep 15, 2019 10:19
--- NOTE | 2019-09-15 16:03 | NUR ---
SS following for discharge planning. SS reviewed pt chart and spoke with pt's RN. Pt is from home with family and is currently on the vent. SS will continue to follow for discharge planning.
[2019-09-15 20:38] LABS: HEMATOCRIT 24.1 % (39.0-53.0); HEMOGLOBIN 7.8 g/dL (13.0-17.5); RED BLOOD COUNT 2.9 x10^6/uL (4.30-5.70); RED CELL DISTRIBUTION WIDTH 17.5 % (11.5-14.5); WHITE BLOOD COUNT 7.9 x10^3/uL (4.0-11.0)
[2019-09-16] VITALS (27 sets, daily range): BP systolic 114–183; BP diastolic 57–107
[2019-09-16] MEDS: PROPOFOL 100 ML IV PRN ×7 (01:43→23:56)
[2019-09-16] MEDS: IV NORMAL SALINE 1000ML BAG 1,000 ML IV SCH ×3 (03:50→18:00)
--- NOTE | 2019-09-16 03:56 | NUR ---
Pt Hgb 7.[address] Rogers's order, 1 unit PRBC transfused for Hgb less than 8. Pt tolerated well, VSS. Pt labs to be drawn again this am. When pt is not well sedated this shift, tremors noted in all extremities. Pt is currently moderately sedated. Versed being titrated down per Dr. Ballesteros. Will pass on and continue to monitor. Pt within sight of care team.
[2019-09-16 06:46] LABS: HEMATOCRIT 25.7 % (39.0-53.0); HEMOGLOBIN 8.5 g/dL (13.0-17.5); RED BLOOD COUNT 3.05 x10^6/uL (4.30-5.70); RED CELL DISTRIBUTION WIDTH 17.4 % (11.5-14.5); WHITE BLOOD COUNT 6.9 x10^3/uL (4.0-11.0)
[2019-09-16 06:54] LABS: CALCIUM 7.8 mg/dL (8.5-10.1); CREATININE 0.7 mg/dL (0.7-1.3); GFR 123.7; MAGNESIUM 1.4 mg/dL (1.8-2.4); POTASSIUM 3.7 mmol/L (3.5-5.1)
--- NOTE | 2019-09-16 08:18 | RAD ---
AP chest. HISTORY: GI bleed, intubated AP view was taken of the chest. Endotracheal tube remains in good position. Heart is normal in size. No new infiltrates are noted. There is mild hazy atelectasis in the right lung base. The patient's taken a poor inspiration. IMPRESSION: 1. Endotracheal tube in good position. 2. Little interval change. 3. Mild hazy atelectasis right lung base. Electronically signed by: Alton Tolbert MD (09/16/2019 8:15 AM) [id number]
[2019-09-16 08:28] LABS: BASE EXCESS ABG -1 mmol/L (-3-3); HCO3 ABG 24 mmol/L (21-28); PCO2 ABG 40 mmHg (35-46); PO2 ABG 112 mmHg (75-108); SAT O2 ABG 98 % (92-99)
[2019-09-16] MEDS ORDERED: IV NORMAL SALINE 500ML BAG 500 ML IV PRN (08:30)
[2019-09-16] MEDS ORDERED: ATROPINE 0.5 MG/5 ML DISP.SYRINGE. IV PRN (08:30)
[2019-09-16] MEDS: PANTOPRAZOLE IV PUSH 40 MG VIAL. IVP SCH ×2 (08:36→20:53)
[2019-09-16] MEDS: MULTIVIT INFUSN,ADULT 4,VIT K 10 ML, THIAMINE INJ 100 MG, FOLIC ACID INJ 1 MG in IV NOR... IV SCH (08:37)
[2019-09-16] MEDS: DEXMEDETOMIDINE 400 MCG in IV NORMAL SALINE 100ML 96 ML IV PRN ×3 (08:41→23:07)
[2019-09-16 08:44] LABS: FIO2 ABG 40% VENT
--- NOTE | 2019-09-16 09:45 | PDOC ---
Objective: Objective: D/w nurse - no bleeding, transfused yesterday. Attempt to wean resulted in violent shaking. Vital Signs: Vital Signs Date Time Temp Pulse Resp B/P (MAP) Pulse Ox O2 Delivery O2 Flow Rate FiO2 09/16/19 09:29 95 09/16/19 09:17 Ventilator 09/16/19 06:00 68 16 119/62 (81) 09/16/19 04:00 98.6 98.6 Labs: Laboratory Tests Test 09/15/19 20:20 09/16/19 06:15 09/16/19 08:00 White Blood Count 7.9 x10^3/uL 6.9 x10^3/uL Red Blood Count 2.90 x10^6/uL 3.05 x10^6/uL Hemoglobin 7.8 g/dL 8.5 g/dL Hematocrit 24.1 % 25.7 % Mean Corpuscular Volume 83 fL 84 fL Mean Corpuscular Hemoglobin 27 pg 28 pg Mean Corpuscular Hemoglobin Concent 33 g/dL 33 g/dL Red Cell Distribution Width 17.5 % 17.4 % Platelet Count 75 x10^3/uL 75 x10^3/uL Sodium Level 143 mmol/L Potassium Level 3.7 mmol/L Chloride Level 110 mmol/L Carbon Dioxide Level 26 mmol/L Anion Gap 7 Blood Urea Nitrogen 11 mg/dL Creatinine 0.7 mg/dL Estimated GFR (Cockcroft-Gault) 123.7 Glucose Level 96 mg/dL Calcium Level 7.8 mg/dL Magnesium Level 1.4 mg/dL O2 Saturation 98 % Arterial Blood pH 7.39 Arterial Blood pCO2 at Patient Temp 40 mmHg Arterial Blood pO2 at Patient Temp 112 mmHg Arterial Blood HCO3 24 mmol/L Arterial Blood Base Excess -1 mmol/L FiO2 40% vent Imaging: CXR 09/15 IMPRESSION: 1. Endotracheal tube in good position. 2. Little interval change. 3. Mild hazy atelectasis right lung base. PE: GEN: intubated, alone in room LUNGS: clear, vent HEART: RRR ABD: quiet, soft NEURO/PSYCH: sedated A/P: Hematemesis - no recurrence Anemia - improved w/ transfusions Erosive esophagitis, DU - s/p endotherapy 09/15/19 Alcohol abuse, psych issues, h/o recurrent pancreatitis -- Continue same per GI w/ IV PPI. Difficultly weaning off vent in past. [facility] follow[facility] at [facility] or recommended and previously d/w family. Hemodynamically unstable?: No Is patient in severe pain?: No Is NPO status required?: Yes MESSI GORE Sep 16, 2019 09:45
[2019-09-16] MEDS ORDERED: AMINO AC 3%/ELECTROLYTE/GLYCER 1,000 ML IV SCH (10:00)
--- NOTE | 2019-09-16 10:03 | PDOC ---
PULMONARY PROGRESS NOTES Subjective PT HAD SEIZURE LIKE ACTIVITY WHEN OFF SEDATION AC MODE RE SEDATED Vitals Vital Signs Date Time Temp Pulse Resp B/P (MAP) Pulse Ox O2 Delivery O2 Flow Rate FiO2 09/16/19 09:29 95 09/16/19 09:17 Ventilator 09/16/19 06:00 68 16 119/62 (81) 09/16/19 04:00 98.6 98.6 Lungs: Clear Cardiovascular: S1, S2 Abdomen: Soft Extremities: No Edema Skin: Warm Labs Laboratory Tests Test 09/14/19 18:00 09/14/19 18:54 09/14/19 23:25 09/15/19 04:25 White Blood Count 15.0 x10^3/uL (4.0-11.0) 7.1 x10^3/uL (4.0-11.0) Red Blood Count 1.91 x10^6/uL (4.30-5.70) 2.67 x10^6/uL (4.30-5.70) Hemoglobin 4.4 g/dL (13.0-17.5) 7.2 g/dL (13.0-17.5) Hematocrit 15.5 % (39.0-53.0) 21.7 % (39.0-53.0) Mean Corpuscular Volume 82 fL (79-100) 81 fL (79-100) Mean Corpuscular Hemoglobin 23 pg (25-35) 27 pg (25-35) Mean Corpuscular Hemoglobin Concent 28 g/dL (31-37) 33 g/dL (31-37) Red Cell Distribution Width 20.1 % (11.5-14.5) 18.7 % (11.5-14.5) Platelet Count 174 x10^3/uL (140-400) 76 x10^3/uL (140-400) Neutrophils (%) (Auto) 72 % (31-73) 76 % (31-73) Lymphocytes (%) (Auto) 18 % (24-48) 13 % (24-48) Monocytes (%) (Auto) 9 % (0-9) 10 % (0-9) Eosinophils (%) (Auto) 0 % (0-3) 0 % (0-3) Basophils (%) (Auto) 1 % (0-3) 1 % (0-3) Neutrophils # (Auto) 10.8 x10^3/uL (1.8-7.7) 5.4 x10^3/uL (1.8-7.7) Lymphocytes # (Auto) 2.7 x10^3/uL (1.0-4.8) 1.0 x10^3/uL (1.0-4.8) Monocytes # (Auto) 1.3 x10^3/uL (0.0-1.1) 0.7 x10^3/uL (0.0-1.1) Eosinophils # (Auto) 0.0 x10^3/uL (0.0-0.7) 0.0 x10^3/uL (0.0-0.7) Basophils # (Auto) 0.1 x10^3/uL (0.0-0.2) 0.0 x10^3/uL (0.0-0.2) Platelet Estimate Adequate (ADEQUATE) Polychromasia Occasional Hypochromasia Mod Poikilocytosis Slight Anisocytosis Mod Ovalocytes Occ Miguel Cells Few Acanthocytes Few Schistocytes Occ Prothrombin Time 16.4 SEC (11.7-14.0) Prothromb Time International Ratio 1.4 (0.8-1.1) Sodium Level 142 mmol/L (136-145) 144 mmol/L (136-145) Potassium Level 3.8 mmol/L (3.5-5.1) 4.0 mmol/L (3.5-5.1) Chloride Level 97 mmol/L (98-107) 107 mmol/L (98-107) Carbon Dioxide Level 11 mmol/L (21-32) 27 mmol/L (21-32) Anion Gap 34 (6-14) 10 (6-14) Blood Urea Nitrogen 16 mg/dL (8-26) 13 mg/dL (8-26) Creatinine 1.3 mg/dL (0.7-1.3) 0.9 mg/dL (0.7-1.3) Estimated GFR (Cockcroft-Gault) 60.5 92.5 BUN/Creatinine Ratio 12 (6-20) Glucose Level 197 mg/dL (70-99) 107 mg/dL (70-99) Calcium Level 8.4 mg/dL (8.5-10.1) 7.7 mg/dL (8.5-10.1) Total Bilirubin 0.4 mg/dL (0.2-1.0) Aspartate Amino Transf (AST/SGOT) 110 U/L (15-37) Alanine Aminotransferase (ALT/SGPT) 106 U/L (16-63) Alkaline Phosphatase 48 U/L (46-116) Troponin I Quantitative < 0.017 ng/mL (0.000-0.055) Total Protein 6.0 g/dL (6.4-8.2) Albumin 2.9 g/dL (3.4-5.0) Albumin/Globulin Ratio 0.9 (1.0-1.7) Ethyl Alcohol Level 111 mg/dL (0-10) Urine Collection Type Unknown Urine Color Yellow Urine Clarity Clear Urine pH 5.5 Urine Specific [place] 1.020 Urine Protein Negative mg/dL (NEG-TRACE) Urine Glucose (UA) Negative mg/dL (NEG) Urine Ketones (Stick) 40 mg/dL (NEG) Urine Blood Trace (NEG) Urine Nitrite Negative (NEG) Urine Bilirubin Negative (NEG) Urine Urobilinogen Dipstick 0.2 mg/dL (0.2 mg/dL) Urine Leukocyte Esterase Negative (NEG) Urine RBC 0 /HPF (0-2) Urine WBC Rare /HPF (0-4) Urine Squamous Epithelial Cells Occ /LPF Urine Bacteria 0 /HPF (0-FEW) Urine Mucus Slight /LPF Urine Opiates Screen Neg (NEG) Urine Methadone Screen Neg (NEG) Urine Barbiturates Neg (NEG) Urine Phencyclidine Screen Neg (NEG) Urine Amphetamine/Methamphetamine Neg (NEG) Urine Benzodiazepines Screen Neg (NEG) Urine Cocaine Screen Neg (NEG) Urine Cannabinoids Screen Neg (NEG) Urine Ethyl Alcohol Pos (NEG) O2 Saturation 99 % (92-99) Arterial Blood pH 7.28 (7.35-7.45) Arterial Blood pCO2 at Patient Temp 40 mmHg (35-46) Arterial Blood pO2 at Patient Temp 417 mmHg (75-108) Arterial Blood HCO3 18 mmol/L (21-28) Arterial Blood Base Excess -8 mmol/L (-3-3) FiO2 100 Test 09/15/19 08:55 09/15/19 20:20 09/16/19 06:15 09/16/19 08:00 O2 Saturation 98 % (92-99) 98 % (92-99) Arterial Blood pH 7.42 (7.35-7.45) 7.39 (7.35-7.45) Arterial Blood pCO2 at Patient Temp 39 mmHg (35-46) 40 mmHg (35-46) Arterial Blood pO2 at Patient Temp 150 mmHg (75-108) 112 mmHg (75-108) Arterial Blood HCO3 25 mmol/L (21-28) 24 mmol/L (21-28) Arterial Blood Base Excess 1 mmol/L (-3-3) -1 mmol/L (-3-3) FiO2 40 40% vent White Blood Count 7.9 x10^3/uL (4.0-11.0) 6.9 x10^3/uL (4.0-11.0) Red Blood Count 2.90 x10^6/uL (4.30-5.70) 3.05 x10^6/uL (4.30-5.70) Hemoglobin 7.8 g/dL (13.0-17.5) 8.5 g/dL (13.0-17.5) Hematocrit 24.1 % (39.0-53.0) 25.7 % (39.0-53.0) Mean Corpuscular Volume 83 fL (79-100) 84 fL (79-100) Mean Corpuscular Hemoglobin 27 pg (25-35) 28 pg (25-35) Mean Corpuscular Hemoglobin Concent 33 g/dL (31-37) 33 g/dL (31-37) Red Cell Distribution Width 17.5 % (11.5-14.5) 17.4 % (11.5-14.5) Platelet Count 75 x10^3/uL (140-400) 75 x10^3/uL (140-400) Sodium Level 143 mmol/L (136-145) Potassium Level 3.7 mmol/L (3.5-5.1) Chloride Level 110 mmol/L (98-107) Carbon Dioxide Level 26 mmol/L (21-32) Anion Gap 7 (6-14) Blood Urea Nitrogen 11 mg/dL (8-26) Creatinine 0.7 mg/dL (0.7-1.3) Estimated GFR (Cockcroft-Gault) 123.7 Glucose Level 96 mg/dL (70-99) Calcium Level 7.8 mg/dL (8.5-10.1) Magnesium Level 1.4 mg/dL (1.8-2.4) Laboratory Tests Test 09/15/19 20:20 09/16/19 06:15 09/16/19 08:00 White Blood Count 7.9 x10^3/uL (4.0-11.0) 6.9 x10^3/uL (4.0-11.0) Red Blood Count 2.90 x10^6/uL (4.30-5.70) 3.05 x10^6/uL (4.30-5.70) Hemoglobin 7.8 g/dL (13.0-17.5) 8.5 g/dL (13.0-17.5) Hematocrit 24.1 % (39.0-53.0) 25.7 % (39.0-53.0) Mean Corpuscular Volume 83 fL (79-100) 84 fL (79-100) Mean Corpuscular Hemoglobin 27 pg (25-35) 28 pg (25-35) Mean Corpuscular Hemoglobin Concent 33 g/dL (31-37) 33 g/dL (31-37) Red Cell Distribution Width 17.5 % (11.5-14.5) 17.4 % (11.5-14.5) Platelet Count 75 x10^3/uL (140-400) 75 x10^3/uL (140-400) Sodium Level 143 mmol/L (136-145) Potassium Level 3.7 mmol/L (3.5-5.1) Chloride Level 110 mmol/L (98-107) Carbon Dioxide Level 26 mmol/L (21-32) Anion Gap 7 (6-14) Blood Urea Nitrogen 11 mg/dL (8-26) Creatinine 0.7 mg/dL (0.7-1.3) Estimated GFR (Cockcroft-Gault) 123.7 Glucose Level 96 mg/dL (70-99) Calcium Level 7.8 mg/dL (8.5-10.1) Magnesium Level 1.4 mg/dL (1.8-2.4) O2 Saturation 98 % (92-99) Arterial Blood pH 7.39 (7.35-7.45) Arterial Blood pCO2 at Patient Temp 40 mmHg (35-46) Arterial Blood pO2 at Patient Temp 112 mmHg (75-108) Arterial Blood HCO3 24 mmol/L (21-28) Arterial Blood Base Excess -1 mmol/L (-3-3) FiO2 40% vent Medications Active Scripts Medications Dose Route/Sig Max Daily Dose Days Date Category Amlodipine Besylate 5 Mg Tablet 5 Mg PO DAILY 07/08/19 Reported Protonix (Pantoprazole Sodium) 40 Mg Tablet.dr 40 Mg PO DAILYAC PRN 30 06/23/19 Rx Proair Hfa Inhaler (Albuterol Sulfate) 8.5 Gm Hfa.aer.ad 1 Puff INH PRN Q4HRS PRN 03/02/18 Reported Symbicort 160-4.5 Mcg Inhaler (Budesonide/Formoterol Fumarate) 10.2 Gm Hfa.aer.ad 2 Puff IH BID 08/13/16 Reported Theophylline (Theophylline Anhydrous) 400 Mg Tablet.er 300 Mg PO BID 08/20/13 Reported Impression . 1. Acute respiratory failure secondary to acute gastrointestinal bleed along with hepatic encephalopathy. 2. History of alcoholism, presented with acute gastrointestinal bleed. 3. Status post EGD, was found to have a duodenal ulcer in the first and second portion of the duodenum with a visible vessel. Status post epinephrine injection. 4. Acute blood loss anemia. 5. Mild coagulopathy along with thrombocytopenia. 6. Susped ETOH withdrawl seizures Plan . 1. Continue present assist control mode. 2. Watch for stability of the hemoglobin. 3. sedation 4. Monitor chest x-ray. 5. Monitor hemoglobin. 6. Follow GI recommendations. 7. PPI. 8. SCDs. 9. Discussed with RN and RT. 10. add empiric KARLA Dillon MD Sep 16, 2019 10:02
--- NOTE | 2019-09-16 10:26 | PDOC ---
PROGRESS NOTES History of Present Illness History of Present Illness VTE Prophylaxis Ordered VTE Prophylaxis Devices: Yes VTE Pharmacological Prophylaxi: Contraindicated Assessment/Plan Assessment/Plan IMPRESSION: 1. acute UGI BLEED 2. severe diffuse hepatic steatosis. 3. Erosive esophagitis, epinephrine injection duodenal ulcer in the first and second portions of duodenum with a visible vessel, status post epinephrine injection. 4. polysubstance abuse, ALCOHOL, COCAINE, THC PLAN ADMIT ICU status post epinephrine injection second portions of duodenum with a visible GI CONSULTED IN ER TRANSFUSED PRN alcohol withdrawal protocol SCD'S pat consult VENT SUPPORT PROTONIX DRIP 34 min cc time Vitals Vitals Vital Signs Date Time Temp Pulse Resp B/P (MAP) Pulse Ox O2 Delivery O2 Flow Rate FiO2 09/16/19 09:29 95 09/16/19 09:17 Ventilator 09/16/19 06:00 68 16 119/62 (81) 09/16/19 04:00 98.6 98.6 Physical Exam Physical Exam SEDATED ON VENT General: No acute distress Heart: Regular rate, Normal S1, Normal S2 Lungs: Clear Abdomen: Normal bowel sounds, Soft, No tenderness Extremities: No cyanosis, No edema Labs LABS EX: M EXAM STATUS: ADM IN ORD. PHYSICIAN: KARLA LOVING MD REASON: GI bleed, intubated PROCEDURE: CHEST AP ONLY AP chest. HISTORY: GI bleed, intubated AP view was taken of the chest. Endotracheal tube remains in good position. Heart is normal in size. No new infiltrates are noted. There is mild hazy atelectasis in the right lung base. The patient's taken a poor inspiration. IMPRESSION: 1. Endotracheal tube in good position. 2. Little interval change. 3. Mild hazy atelectasis right lung base. Electronically signed by: Alton Green MD (09/16/2019 8:15 AM) [id number] DICTATED and SIGNED BY: ALTON GREEN MD DATE: 09/16/1915 Laboratory Tests Test 09/15/19 20:20 09/16/19 06:15 09/16/19 08:00 White Blood Count 7.9 x10^3/uL (4.0-11.0) 6.9 x10^3/uL (4.0-11.0) Red Blood Count 2.90 x10^6/uL (4.30-5.70) 3.05 x10^6/uL (4.30-5.70) Hemoglobin 7.8 g/dL (13.0-17.5) 8.5 g/dL (13.0-17.5) Hematocrit 24.1 % (39.0-53.0) 25.7 % (39.0-53.0) Mean Corpuscular Volume 83 fL (79-100) 84 fL (79-100) Mean Corpuscular Hemoglobin 27 pg (25-35) 28 pg (25-35) Mean Corpuscular Hemoglobin Concent 33 g/dL (31-37) 33 g/dL (31-37) Red Cell Distribution Width 17.5 % (11.5-14.5) 17.4 % (11.5-14.5) Platelet Count 75 x10^3/uL (140-400) 75 x10^3/uL (140-400) Sodium Level 143 mmol/L (136-145) Potassium Level 3.7 mmol/L (3.5-5.1) Chloride Level 110 mmol/L (98-107) Carbon Dioxide Level 26 mmol/L (21-32) Anion Gap 7 (6-14) Blood Urea Nitrogen 11 mg/dL (8-26) Creatinine 0.7 mg/dL (0.7-1.3) Estimated GFR (Cockcroft-Gault) 123.7 Glucose Level 96 mg/dL (70-99) Calcium Level 7.8 mg/dL (8.5-10.1) Magnesium Level 1.4 mg/dL (1.8-2.4) O2 Saturation 98 % (92-99) Arterial Blood pH 7.39 (7.35-7.45) Arterial Blood pCO2 at Patient Temp 40 mmHg (35-46) Arterial Blood pO2 at Patient Temp 112 mmHg (75-108) Arterial Blood HCO3 24 mmol/L (21-28) Arterial Blood Base Excess -1 mmol/L (-3-3) FiO2 40% vent Assessment and Plan Assessmemt and Plan Problems Medical Problems: (1) GI bleed Status: Acute Comment Review of Relevant I have reviewed the following items wali (where applicable) has been applied. Labs Laboratory Tests Test 09/14/19 18:00 09/14/19 18:54 09/14/19 23:25 09/15/19 04:25 White Blood Count 15.0 x10^3/uL (4.0-11.0) 7.1 x10^3/uL (4.0-11.0) Red Blood Count 1.91 x10^6/uL (4.30-5.70) 2.67 x10^6/uL (4.30-5.70) Hemoglobin 4.4 g/dL (13.0-17.5) 7.2 g/dL (13.0-17.5) Hematocrit 15.5 % (39.0-53.0) 21.7 % (39.0-53.0) Mean Corpuscular Volume 82 fL (79-100) 81 fL (79-100) Mean Corpuscular Hemoglobin 23 pg (25-35) 27 pg (25-35) Mean Corpuscular Hemoglobin Concent 28 g/dL (31-37) 33 g/dL (31-37) Red Cell Distribution Width 20.1 % (11.5-14.5) 18.7 % (11.5-14.5) Platelet Count 174 x10^3/uL (140-400) 76 x10^3/uL (140-400) Neutrophils (%) (Auto) 72 % (31-73) 76 % (31-73) Lymphocytes (%) (Auto) 18 % (24-48) 13 % (24-48) Monocytes (%) (Auto) 9 % (0-9) 10 % (0-9) Eosinophils (%) (Auto) 0 % (0-3) 0 % (0-3) Basophils (%) (Auto) 1 % (0-3) 1 % (0-3) Neutrophils # (Auto) 10.8 x10^3/uL (1.8-7.7) 5.4 x10^3/uL (1.8-7.7) Lymphocytes # (Auto) 2.7 x10^3/uL (1.0-4.8) 1.0 x10^3/uL (1.0-4.8) Monocytes # (Auto) 1.3 x10^3/uL (0.0-1.1) 0.7 x10^3/uL (0.0-1.1) Eosinophils # (Auto) 0.0 x10^3/uL (0.0-0.7) 0.0 x10^3/uL (0.0-0.7) Basophils # (Auto) 0.1 x10^3/uL (0.0-0.2) 0.0 x10^3/uL (0.0-0.2) Platelet Estimate Adequate (ADEQUATE) Polychromasia Occasional Hypochromasia Mod Poikilocytosis Slight Anisocytosis Mod Ovalocytes Occ [place] Cells Few Acanthocytes Few Schistocytes Occ Prothrombin Time 16.4 SEC (11.7-14.0) Prothromb Time International Ratio 1.4 (0.8-1.1) Sodium Level 142 mmol/L (136-145) 144 mmol/L (136-145) Potassium Level 3.8 mmol/L (3.5-5.1) 4.0 mmol/L (3.5-5.1) Chloride Level 97 mmol/L (98-107) 107 mmol/L (98-107) Carbon Dioxide Level 11 mmol/L (21-32) 27 mmol/L (21-32) Anion Gap 34 (6-14) 10 (6-14) Blood Urea Nitrogen 16 mg/dL (8-26) 13 mg/dL (8-26) Creatinine 1.3 mg/dL (0.7-1.3) 0.9 mg/dL (0.7-1.3) Estimated GFR (Cockcroft-Gault) 60.5 92.5 BUN/Creatinine Ratio 12 (6-20) Glucose Level 197 mg/dL (70-99) 107 mg/dL (70-99) Calcium Level 8.4 mg/dL (8.5-10.1) 7.7 mg/dL (8.5-10.1) Total Bilirubin 0.4 mg/dL (0.2-1.0) Aspartate Amino Transf (AST/SGOT) 110 U/L (15-37) Alanine Aminotransferase (ALT/SGPT) 106 U/L (16-63) Alkaline Phosphatase 48 U/L (46-116) Troponin I Quantitative < 0.017 ng/mL (0.000-0.055) Total Protein 6.0 g/dL (6.4-8.2) Albumin 2.9 g/dL (3.4-5.0) Albumin/Globulin Ratio 0.9 (1.0-1.7) Ethyl Alcohol Level 111 mg/dL (0-10) Urine Collection Type Unknown Urine Color Yellow Urine Clarity Clear Urine pH 5.5 Urine Specific Vincent 1.020 Urine Protein Negative mg/dL (NEG-TRACE) Urine Glucose (UA) Negative mg/dL (NEG) Urine Ketones (Stick) 40 mg/dL (NEG) Urine Blood Trace (NEG) Urine Nitrite Negative (NEG) Urine Bilirubin Negative (NEG) Urine Urobilinogen Dipstick 0.2 mg/dL (0.2 mg/dL) Urine Leukocyte Esterase Negative (NEG) Urine RBC 0 /HPF (0-2) Urine WBC Rare /HPF (0-4) Urine Squamous Epithelial Cells Occ /LPF Urine Bacteria 0 /HPF (0-FEW) Urine Mucus Slight /LPF Urine Opiates Screen Neg (NEG) Urine Methadone Screen Neg (NEG) Urine Barbiturates Neg (NEG) Urine Phencyclidine Screen Neg (NEG) Urine Amphetamine/Methamphetamine Neg (NEG) Urine Benzodiazepines Screen Neg (NEG) Urine Cocaine Screen Neg (NEG) Urine Cannabinoids Screen Neg (NEG) Urine Ethyl Alcohol Pos (NEG) O2 Saturation 99 % (92-99) Arterial Blood pH 7.28 (7.35-7.45) Arterial Blood pCO2 at Patient Temp 40 mmHg (35-46) Arterial Blood pO2 at Patient Temp 417 mmHg (75-108) Arterial Blood HCO3 18 mmol/L (21-28) Arterial Blood Base Excess -8 mmol/L (-3-3) FiO2 100 Test 09/15/19 08:55 09/15/19 20:20 09/16/19 06:15 09/16/19 08:00 O2 Saturation 98 % (92-99) 98 % (92-99) Arterial Blood pH 7.42 (7.35-7.45) 7.39 (7.35-7.45) Arterial Blood pCO2 at Patient Temp 39 mmHg (35-46) 40 mmHg (35-46) Arterial Blood pO2 at Patient Temp 150 mmHg (75-108) 112 mmHg (75-108) Arterial Blood HCO3 25 mmol/L (21-28) 24 mmol/L (21-28) Arterial Blood Base Excess 1 mmol/L (-3-3) -1 mmol/L (-3-3) FiO2 40 40% vent White Blood Count 7.9 x10^3/uL (4.0-11.0) 6.9 x10^3/uL (4.0-11.0) Red Blood Count 2.90 x10^6/uL (4.30-5.70) 3.05 x10^6/uL (4.30-5.70) Hemoglobin 7.8 g/dL (13.0-17.5) 8.5 g/dL (13.0-17.5) Hematocrit 24.1 % (39.0-53.0) 25.7 % (39.0-53.0) Mean Corpuscular Volume 83 fL (79-100) 84 fL (79-100) Mean Corpuscular Hemoglobin 27 pg (25-35) 28 pg (25-35) Mean Corpuscular Hemoglobin Concent 33 g/dL (31-37) 33 g/dL (31-37) Red Cell Distribution Width 17.5 % (11.5-14.5) 17.4 % (11.5-14.5) Platelet Count 75 x10^3/uL (140-400) 75 x10^3/uL (140-400) Sodium Level 143 mmol/L (136-145) Potassium Level 3.7 mmol/L (3.5-5.1) Chloride Level 110 mmol/L (98-107) Carbon Dioxide Level 26 mmol/L (21-32) Anion Gap 7 (6-14) Blood Urea Nitrogen 11 mg/dL (8-26) Creatinine 0.7 mg/dL (0.7-1.3) Estimated GFR (Cockcroft-Gault) 123.7 Glucose Level 96 mg/dL (70-99) Calcium Level 7.8 mg/dL (8.5-10.1) Magnesium Level 1.4 mg/dL (1.8-2.4) Laboratory Tests Test 09/15/19 20:20 09/16/19 06:15 09/16/19 08:00 White Blood Count 7.9 x10^3/uL (4.0-11.0) 6.9 x10^3/uL (4.0-11.0) Red Blood Count 2.90 x10^6/uL (4.30-5.70) 3.05 x10^6/uL (4.30-5.70) Hemoglobin 7.8 g/dL (13.0-17.5) 8.5 g/dL (13.0-17.5) Hematocrit 24.1 % (39.0-53.0) 25.7 % (39.0-53.0) Mean Corpuscular Volume 83 fL (79-100) 84 fL (79-100) Mean Corpuscular Hemoglobin 27 pg (25-35) 28 pg (25-35) Mean Corpuscular Hemoglobin Concent 33 g/dL (31-37) 33 g/dL (31-37) Red Cell Distribution Width 17.5 % (11.5-14.5) 17.4 % (11.5-14.5) Platelet Count 75 x10^3/uL (140-400) 75 x10^3/uL (140-400) Sodium Level 143 mmol/L (136-145) Potassium Level 3.7 mmol/L (3.5-5.1) Chloride Level 110 mmol/L (98-107) Carbon Dioxide Level 26 mmol/L (21-32) Anion Gap 7 (6-14) Blood Urea Nitrogen 11 mg/dL (8-26) Creatinine 0.7 mg/dL (0.7-1.3) Estimated GFR (Cockcroft-Gault) 123.7 Glucose Level 96 mg/dL (70-99) Calcium Level 7.8 mg/dL (8.5-10.1) Magnesium Level 1.4 mg/dL (1.8-2.4) O2 Saturation 98 % (92-99) Arterial Blood pH 7.39 (7.35-7.45) Arterial Blood pCO2 at Patient Temp 40 mmHg (35-46) Arterial Blood pO2 at Patient Temp 112 mmHg (75-108) Arterial Blood HCO3 24 mmol/L (21-28) Arterial Blood Base Excess -1 mmol/L (-3-3) FiO2 40% vent Medications Current Medications Ondansetron HCl (Zofran) 4 mg STK-MED ONCE .ROUTE ; Start 09/14/19 at 17:54; Stop 09/14/19 at 17:54; Status DC Lorazepam (Ativan Inj) 2 mg STK-MED ONCE .ROUTE ; Start 09/14/19 at 17:55; Stop 09/14/19 at 17:55; Status DC Lorazepam (Ativan Inj) 2 mg 1X ONCE IVP Last administered on 09/14/19at 18:05; Start 09/14/19 at 18:00; Stop 09/14/19 at 18:09; Status DC Ondansetron HCl (Zofran) 4 mg 1X ONCE IVP Last administered on 09/14/19at 18:04; Start 09/14/19 at 18:00; Stop 09/14/19 at 18:09; Status DC Pantoprazole Sodium (PROTONIX VIAL for IV PUSH) 40 mg 1X ONCE IVP Last administered on 09/14/19at 18:43; Start 09/14/19 at 18:00; Stop 09/14/19 at 18:09; Status DC Sodium Chloride 1,000 ml @ 1,000 mls/hr 1X ONCE IV Last administered on 09/14/19 19:10; Start 09/14/19 at 18:00; Stop 09/14/19 at 19:00; Status DC Multivitamins 10 ml/Thiamine HCl 100 mg/Folic Acid 1 mg/Sodium Chloride 1,011.2 ml @ 100 mls/ hr DAILY IV Last administered on 09/16/19at 08:37; Start 09/14/19 at 18:30; Stop 09/18/19 at 19:07 Lorazepam (Ativan Inj) 2 mg PRN Q1HR PRN IV For CIWA 8-14 Last administered on 09/14/19at 18:43; Start 09/14/19 at 18:30 Lorazepam (Ativan Inj) 4 mg PRN Q1HR PRN IV For CIWA 15 or greater Last admin istered on 09/16/19at 09:27; Start 09/14/19 at 18:30 Pantoprazole Sodium 80 mg/ Sodium Chloride 100 ml @ 10 mls/hr 1X ONCE IV Last administered on 09/14/19at 18:44; Start 09/14/19 at 18:30; Stop 09/15/19 at 04:29; Status DC Iohexol (Omnipaque 300 Mg/ml) 75 ml 1X ONCE IV ; Start 09/14/19 at 19:00; Stop 09/14/19 at 19:01; Status DC Info (CONTRAST GIVEN -- Rx MONITORING) 1 each PRN DAILY PRN MC SEE COMMENTS; Start 09/14/19 at 19:00; Stop 09/16/19 at 18:59 Ondansetron HCl (Zofran) 4 mg PRN Q8HRS PRN IV NAUSEA/VOMITING; Start 09/14/19 at 19:30; Stop 09/15/19 at 19:29; Status DC Sodium Chloride 1,000 ml @ 125 mls/hr Q8H IV Last administered on 09/15/19at 15:39; Start 09/14/19 at 19:19; Stop 09/15/19 at 19:18; Status DC Etomidate (Amidate) 20 mg STK-MED ONCE IV ; Start 09/14/19 at 21:22; Stop 09/14/19 at 21:22; Status DC Lidocaine HCl (Lidocaine Pf 2% Vial) 5 ml STK-MED ONCE .ROUTE ; Start 09/14/19 at 21:22; Stop 09/14/19 at 21:22; Status DC Rocuronium [place] (Zemuron) 50 mg STK-MED ONCE .ROUTE ; Start 09/14/19 at 21:23; Stop 09/14/19 at 21:23; Status DC Phenylephrine HCl (PHENYLEPHRINE in 0.9% NACL PF) 1 mg STK-MED ONCE IV ; Start 09/14/19 at 21:24; Stop 09/14/19 at 21:24; Status DC Propofol 100 ml @ 0 mls/hr CONT PRN IV SEE PROTOCOL Last administered on 09/16/19at 08:39; Start 09/14/19 at 22:30 Fentanyl Citrate (Fentanyl 2ml Vial) 25 mcg PRN Q1HR PRN IV SEE COMMENTS; Start 09/14/19 at 22:30; Stop 09/15/19 at 06:26; Status DC Fentanyl Citrate (Fentanyl 2ml Vial) 50 mcg PRN Q1HR PRN IV SEE COMMENTS; Start 09/14/19 at 22:30; Stop 09/15/19 at 06:26; Status DC Epinephrine HCl (EPINEPHrine SYRINGE) 1 mg STK-MED ONCE .ROUTE ; Start 09/14/19 at 23:19; Stop 09/14/19 at 23:20; Status DC Pantoprazole Sodium (PROTONIX VIAL for IV PUSH) 40 mg BID IVP Last administered on 09/16/19at 08:36; Start 09/15/19 at 09:00 Epinephrine HCl (EPINEPHrine SYRINGE) 1 mg STK-MED ONCE IV Last administered on 09/14/19at 23:00; Start 09/14/19 at 23:00; Stop 09/14/19 at 23:29; Status DC Fentanyl Citrate 30 ml @ 0 mls/hr CONT PRN IV SEE PROTOCOL Last administered on 09/16/19at 09:29; Start 09/14/19 at 23:45 Midazolam HCl 50 mg/Sodium Chloride 50 ml @ 0 mls/hr CONT PRN IV SEE PROTOCOL Last administered on 09/15/19at 22:10; Start 09/14/19 at 23:45 Sodium Bicarbonate (Sodium Bicarb Adult 8.4% Syr) 50 meq 1X ONCE IV Last ad ministered on 09/15/19at 01:25; Start 09/15/19 at 01:00; Stop 09/15/19 at 01:01; Status DC Sodium Chloride 1,000 ml @ 125 mls/hr Q8H IV Last administered on 09/16/19at 08:37; Start 09/16/19 at 02:00 Dexmedetomidine HCl 400 mcg/ Sodium Chloride 100 ml @ 0 mls/hr CONT PRN IV AGITATION Last administered on 09/16/19at 08:41; Start 09/16/19 at 08:30 Sodium Chloride 500 ml @ 500 mls/hr 1X PRN PRN IV HYPOTENTION; Start 09/16/19 at 08:30 Atropine Sulfate (ATROPINE 0.5mg SYRINGE) 0.5 mg PRN Q5MIN PRN IV SEE COMMENTS; Start 09/16/19 at 08:30 Amino Acids/ Glycerin/ Electrolytes 1,000 ml @ 80 mls/hr [id number] IV ; Start 09/16/19 at 10:00; Status UNV Ceftriaxone Sodium (Rocephin) 1 gm Q24H IVP ; Start 09/16/19 at 11:00 Amino Acids/ Electrolytes/ Dextrose 1,000 ml @ 80 mls/hr [id number] IV ; Start 09/16/19 at 10:15 Active Scripts Active Protonix (Pantoprazole Sodium) 40 Mg Tablet.dr 40 Mg PO DAILYAC PRN 30 Days Reported Amlodipine Besylate 5 Mg Tablet 5 Mg PO DAILY Proair Hfa Inhaler (Albuterol Sulfate) 8.5 Gm Hfa.aer.ad 1 Puff INH PRN Q4HRS PRN Symbicort 160-4.5 Mcg Inhaler (Budesonide/Formoterol Fumarate) 10.2 Gm Hfa.aer.ad 2 Puff IH BID Theophylline (Theophylline Anhydrous) 400 Mg Tablet.er 300 Mg PO BID Vitals/I & O Vital Sign - Last 24 Hours 09/15/19 09/15/19 09/15/19 09/15/19 11:00 11:00 11:00 11:56 Temp 98.8 98.8 Pulse 74 75 74 Resp 18 16 18 B/P (MAP) 114/59 (77) 114/59 114/59 (77) Pulse Ox 97 97 97 O2 Delivery Ventilator Ventilator Ventilator 09/15/19 09/15/19 09/15/19 09/15/19 12:00 12:00 12:00 13:00 Temp 98.9 99.0 98.9 99.0 Pulse 76 76 72 Resp 18 18 16 B/P (MAP) 126/63 (84) 126/63 (84) 124/60 (81) Pulse Ox 97 98 97 O2 Delivery Ventilator Mechanical Ventilator Ventilator Ventilator 09/15/19 09/15/19 09/15/19 09/15/19 13:00 13:18 14:00 14:00 Pulse 72 66 66 Resp 16 18 16 B/P (MAP) 124/60 (81) 124/60 (81) 124/60 (81) Pulse Ox 98 98 98 97 O2 Delivery Ventilator Ventilator Ventilator Ventilator 09/15/19 09/15/19 09/15/19 09/15/19 15:00 15:00 15:17 15:47 Pulse 70 70 Resp 16 16 B/P (MAP) 125/74 (91) 125/74 (91) Pulse Ox 97 98 98 98 O2 Delivery Ventilator Ventilator 09/15/19 09/15/19 09/15/19 09/15/19 16:00 16:00 16:02 17:00 Temp 99.5 99.5 Pulse 76 62 Resp 16 16 B/P (MAP) 139/72 (94) 134/61 (85) Pulse Ox 98 98 99 O2 Delivery Ventilator Mechanical Ventilator Ventilator Ventilator 09/15/19 09/15/19 09/15/19 09/15/19 18:00 18:07 19:00 19:59 Pulse 68 69 Resp 16 16 B/P (MAP) 134/62 (86) 141/65 (90) Pulse Ox 100 100 98 100 O2 Delivery Ventilator Ventilator Ventilator Ventilator 09/15/19 09/15/19 09/15/19 09/15/19 20:00 20:00 21:00 22:00 Temp 99.5 99.5 Pulse 72 61 64 Resp 16 16 16 B/P (MAP) 126/63 (84) 149/72 (97) 147/74 (98) Pulse Ox 97 99 99 O2 Delivery Ventilator Mechanical Ventilator Ventilator Ventilator 09/15/19 09/15/19 09/15/19 09/16/19 23:00 23:36 23:59 00:00 Temp 98.7 98.7 Pulse 56 80 Resp 16 16 16 B/P (MAP) 132/60 (84) 117/63 (81) Pulse Ox 99 99 99 O2 Delivery Ventilator Ventilator Mechanical Ventilator Ventilator 09/16/19 09/16/19 09/16/19 09/16/19 00:06 00:28 00:38 00:46 Temp 98.7 98.8 98.7 98.8 Pulse 55 79 Resp 16 16 16 B/P (MAP) 132/60 117/63 Pulse Ox 100 O2 Delivery Ventilator Ventilator 09/16/19 09/16/19 09/16/19 09/16/19 01:00 01:47 02:00 03:00 Temp 99.7 99.7 Pulse 58 55 57 54 Resp 16 16 16 16 B/P (MAP) 139/68 (91) 139/68 138/67 (90) 141/68 (92) Pulse Ox 99 99 99 O2 Delivery Ventilator Ventilator Ventilator 09/16/19 09/16/19 09/16/19 09/16/19 03:29 04:00 04:00 05:00 Temp 98.6 98.6 Pulse 56 54 Resp 16 16 B/P (MAP) 121/62 (81) 122/63 (82) Pulse Ox 99 100 99 O2 Delivery Ventilator Ventilator Mechanical Ventilator Ventilator 09/16/19 09/16/19 09/16/19 09/16/19 05:05 05:35 05:43 06:00 Pulse 68 Resp 16 16 B/P (MAP) 119/62 (81) Pulse Ox 99 99 O2 Delivery Ventilator Ventilator Ventilator Ventilator 3/5/20 3/5/20 3/5/20 07:26 09:17 09:29 Pulse Ox 100 95 95 O2 Delivery Ventilator Ventilator Intake and Output 09/15/19 09/15/19 09/16/19 14:59 22:59 06:59 Intake Total 2722 ml 2677.99 ml Output Total 400 ml 460 ml 325 ml Balance -400 ml 2262 ml 2352.99 ml Hemodynamically unstable?: No Is patient in severe pain?: No Is NPO status required?: Yes MENDOZA NICOLE MD Sep 16, 2019 10:26
[2019-09-16] MEDS: cefTRIAXone IV Push 1 GM VIAL. IVP SCH (10:34)
[2019-09-16] MEDS: AA 4.25 %/CALCIUM/LYTES/D5W 1,000 ML IV SCH ×2 (10:34→23:07)
[2019-09-16] MEDS ORDERED: MAGNESIUM SULFATE 1GM 100 ML IV ONE (11:45)
[2019-09-16] MEDS ORDERED: POTASSIUM CHLORIDE 10MEQ 100 ML IV SCH ×2 (14:15)
[2019-09-16] MEDS ORDERED: SODIUM PHOSPHATE 15 MMOL in IV NORMAL SALINE 250ML 250 ML IV PRN ×4 (14:15)
[2019-09-16] MEDS ORDERED: POTASSIUM CHLORIDE 10MEQ 100 ML IV PRN ×2 (14:30)
--- NOTE | 2019-09-16 15:47 | PDOC2 ---
NEUROLOGY CONSULT Date of Admission Date of Admission DATE: 09/16/19 TIME: 15:38 Reason for Consult Reason for Consult: alcohol related seizures Referring Physician Referring Physician: Dr. Ortiz, Dr. 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 He is admitted 2 days ago with GI bleeding. He is now on Precedex, midazolam, propofol. When these are withdrawn, he has some coarse shaking movements which the nurse does not think are seizures, but rather a withdrawal behavior. Past Medical History Cardiovascular: CAD, HTN Pulmonary: Asthma, Other (Sleep apnea) CENTRAL NERVOUS SYSTEM: Seizure (Related to alcohol), Other (Critical illness neuropathy) GI: Constipation, GI bleed, Other (Pancreatitis, diarrhea) Psych: Anxiety, Addictions, Depression Musculoskeletal: low back pain, Other (Left arm fracture) Rheumatologic: Gout ENT: Other (Blind in the left eye, left eye surgery) Renal/: Other (Urinary retention) Endocrine: Diabetes (Prediabetes) Past Surgical History Past Surgical History: Tonsillectomy (Adenoidectomy) Family History Family History: No pertinent hx Social History Social History Single, unemployed, drinks heavy amounts of vodka daily, occasional tobacco Current Medications Current Medications Current Medications Ondansetron HCl (Zofran) 4 mg STK-MED ONCE .ROUTE ; Start 09/14/19 at 17:54; Stop 09/14/19 at 17:54; Status DC Lorazepam (Ativan Inj) 2 mg STK-MED ONCE .ROUTE ; Start 09/14/19 at 17:55; Stop 09/14/19 at 17:55; Status DC Lorazepam (Ativan Inj) 2 mg 1X ONCE IVP Last administered on 09/14/19at 18:05; Start 09/14/19 at 18:00; Stop 09/14/19 at 18:09; Status DC Ondansetron HCl (Zofran) 4 mg 1X ONCE IVP Last administered on 09/14/19at 18:04; Start 09/14/19 at 18:00; Stop 09/14/19 at 18:09; Status DC Pantoprazole Sodium (PROTONIX VIAL for IV PUSH) 40 mg 1X ONCE IVP Last administered on 09/14/19at 18:43; Start 09/14/19 at 18:00; Stop 09/14/19 at 18:09; Status DC Sodium Chloride 1,000 ml @ 1,000 mls/hr 1X ONCE IV Last administered on 09/14/19at 19:10; Start 09/14/19 at 18:00; Stop 09/14/19 at 19:00; Status DC Multivitamins 10 ml/Thiamine HCl 100 mg/Folic Acid 1 mg/Sodium Chloride 1,011.2 ml @ 100 mls/ hr DAILY IV Last administered on 09/16/19at 08:37; Start 09/14/19 at 18:30; Stop 09/18/19 at 19:07 Lorazepam (Ativan Inj) 2 mg PRN Q1HR PRN IV For CIWA 8-14 Last administered on 09/14/19at 18:43; Start 09/14/19 at 18:30 Lorazepam (Ativan Inj) 4 mg PRN Q1HR PRN IV For CIWA 15 or greater Last administered on 09/16/19at 09:27; Start 09/14/19 at 18:30 Pantoprazole Sodium 80 mg/ Sodium Chloride 100 ml @ 10 mls/hr 1X ONCE IV Last administered on 09/14/19at 18:44; Start 09/14/19 at 18:30; Stop 09/15/19 at 04:29; Status DC Iohexol (Omnipaque 300 Mg/ml) 75 ml 1X ONCE IV ; Start 09/14/19 at 19:00; Stop 09/14/19 at 19:01; Status DC Info (CONTRAST GIVEN -- Rx MONITORING) 1 each PRN DAILY PRN MC SEE COMMENTS; Start 09/14/19 at 19:00; Stop 09/16/19 at 18:59 Ondansetron HCl (Zofran) 4 mg PRN Q8HRS PRN IV NAUSEA/VOMITING; Start 09/14/19 at 19:30; Stop 09/15/19 at 19:29; Status DC Sodium Chloride 1,000 ml @ 125 mls/hr Q8H IV Last administered on 09/15/19at 15:39; Start 09/14/19 at 19:19; Stop 09/15/19 at 19:18; Status DC Etomidate (Amidate) 20 mg STK-MED ONCE IV ; Start 09/14/19 at 21:22; Stop 09/14/19 at 21:22; Status DC Lidocaine HCl (Lidocaine Pf 2% Vial) 5 ml STK-MED ONCE .ROUTE ; Start 09/14/19 at 21:22; Stop 09/14/19 at 21:22; Status DC Rocuronium Jolo (Zemuron) 50 mg STK-MED ONCE .ROUTE ; Start 09/14/19 at 21:23; Stop 09/14/19 at 21:23; Status DC Phenylephrine HCl (PHENYLEPHRINE in 0.9% NACL PF) 1 mg STK-MED ONCE IV ; Start 09/14/19 at 21:24; Stop 09/14/19 at 21:24; Status DC Propofol 100 ml @ 0 mls/hr CONT PRN IV SEE PROTOCOL Last administered on 09/16/19at 08:39; Start 09/14/19 at 22:30 Fentanyl Citrate (Fentanyl 2ml Vial) 25 mcg PRN Q1HR PRN IV SEE COMMENTS; Start 09/14/19 at 22:30; Stop 09/15/19 at 06:26; Status DC Fentanyl Citrate (Fentanyl 2ml Vial) 50 mcg PRN Q1HR PRN IV SEE COMMENTS; Start 09/14/19 at 22:30; Stop 09/15/19 at 06:26; Status DC Epinephrine HCl (EPINEPHrine SYRINGE) 1 mg STK-MED ONCE .ROUTE ; Start 09/14/19 at 23:19; Stop 09/14/19 at 23:20; Status DC Pantoprazole Sodium (PROTONIX VIAL for IV PUSH) 40 mg BID IVP Last administered on 09/16/19at 08:36; Start 09/15/19 at 09:00 Epinephrine HCl (EPINEPHrine SYRINGE) 1 mg STK-MED ONCE IV Last administered on 09/14/19at 23:00; Start 09/14/19 at 23:00; Stop 09/14/19 at 23:29; Status DC Fentanyl Citrate 30 ml @ 0 mls/hr CONT PRN IV SEE PROTOCOL Last administered on 09/16/19at 09:29; Start 09/14/19 at 23:45 Midazolam HCl 50 mg/Sodium Chloride 50 ml @ 0 mls/hr CONT PRN IV SEE PROTOCOL Last administered on 09/15/19at 22:10; Start 09/14/19 at 23:45 Sodium Bicarbonate (Sodium Bicarb Adult 8.4% Syr) 50 meq 1X ONCE IV Last administered on 09/15/19at 01:25; Start 09/15/19 at 01:00; Stop 09/15/19 at 01:01; Status DC Sodium Chloride 1,000 ml @ 125 mls/hr Q8H IV Last administered on 09/16/19at 08:37; Start 09/16/19 at 02:00 Dexmedetomidine HCl 400 mcg/ Sodium Chloride 100 ml @ 0 mls/hr CONT PRN IV AGITATION Last administered on 09/16/19at 08:41; Start 09/16/19 at 08:30 Sodium Chloride 500 ml @ 500 mls/hr 1X PRN PRN IV HYPOTENTION; Start 09/16/19 at 08:30 Atropine Sulfate (ATROPINE 0.5mg SYRINGE) 0.5 mg PRN Q5MIN PRN IV SEE COMMENTS; Start 09/16/19 at 08:30 Amino Acids/ Glycerin/ Electrolytes 1,000 ml @ 80 mls/hr [id number] IV ; Start 09/16/19 at 10:00; Status UNV Ceftriaxone Sodium (Rocephin) 1 gm Q24H IVP Last administered on 09/16/19at 10:34; Start 09/16/19 at 11:00 Amino Acids/ Electrolytes/ Dextrose 1,000 ml @ 80 mls/hr [id number] IV Last administered on 09/16/19at 10:34; Start 09/16/19 at 10:15 Magnesium Sulfate/ Dextrose 100 ml @ 100 mls/hr 1X ONCE IV Last administered on 09/16/19at 12:10; Start 09/16/19 at 11:45; Stop 09/16/19 at 12:44; Status DC Potassium Chloride/Water 100 ml @ 100 mls/hr Q1H IV ; Start 09/16/19 at 14:15; Stop 09/16/19 at 14:16; Status DC Potassium Chloride/Water 100 ml @ 100 mls/hr Q1H IV ; Start 09/16/19 at 14:15; Stop 09/16/19 at 14:17; Status DC Magnesium Sulfate 100 ml @ 50 mls/hr DAILY IV ; Start 09/17/19 at 09:00; Stop 09/20/19 at 08:59 Sodium Phosphate 15 mmol/Sodium Chloride 255 ml @ 62.5 mls/hr PRN 1X PRN IV SEE COMMENTS; Start 09/16/19 at 14:15 Sodium Phosphate 15 mmol/Sodium Chloride 255 ml @ 62.5 mls/hr PRN 1X PRN IV SEE COMMENTS; Start 09/16/19 at 14:15 Potassium Chloride/Water 100 ml @ 100 mls/hr PRN Q1HR PRN IV SEE COMMENTS; Start 09/16/19 at 14:30 Potassium Chloride/Water 100 ml @ 100 mls/hr PRN Q1HR PRN IV SEE COMMENTS; Start 09/16/19 at 14:30 Active Scripts Active Protonix (Pantoprazole Sodium) 40 Mg Tablet.dr 40 Mg PO DAILYAC PRN 30 Days Reported Amlodipine Besylate 5 Mg Tablet 5 Mg PO DAILY Proair Hfa Inhaler (Albuterol Sulfate) 8.5 Gm Hfa.aer.ad 1 Puff INH PRN Q4HRS PRN Symbicort 160-4.5 Mcg Inhaler (Budesonide/Formoterol Fumarate) 10.2 Gm Hfa.aer. ad 2 Puff IH BID Theophylline (Theophylline Anhydrous) 400 Mg Tablet.er 300 Mg PO BID Allergies Allergies: Coded Allergies: No Known Drug Allergies (Unverified , 04/30/16) ROS Review of System Unobtainable Physical Exam Physical Examination General: Well-developed, well-nourished white male in no acute distress HEENT: Normocephalic andatraumatic. Temporal arteriespulsatile and nontender. Neck: Supple without bruit, no meningismus Musculoskeletal: Stability:see neurologic. Gait exam:see neurologic. Tone:see neurologic.S trength:see neurologic. Neurological: Mental Status:orientation, memory, attention span/concentration, language, fund of knowledge: Intubated and sedated. Cranial Nerves:Pupils equal and reactive to light, extraocular movements areintact. There is no facial asymmetry. All other cranial related problems are negative except as mentioned before.Reflexes:2+ and symmetric with flexor plantar responses. Motor:no response to pain, sedated. Coordination and gait:not tested. Sensory:not tested. Vitals VITALS Vital Signs Date Time Temp Pulse Resp B/P (MAP) Pulse Ox O2 Delivery O2 Flow Rate FiO2 09/16/19 14:00 84 19 183/105 (131) 99 Ventilator 09/16/19 12:00 98.8 98.8 Labs Labs Laboratory Tests Test 09/14/19 18:00 09/14/19 18:54 09/14/19 23:25 09/15/19 04:25 White Blood Count 15.0 x10^3/uL (4.0-11.0) 7.1 x10^3/uL (4.0-11.0) Red Blood Count 1.91 x10^6/uL (4.30-5.70) 2.67 x10^6/uL (4.30-5.70) Hemoglobin 4.4 g/dL (13.0-17.5) 7.2 g/dL (13.0-17.5) Hematocrit 15.5 % (39.0-53.0) 21.7 % (39.0-53.0) Mean Corpuscular Volume 82 fL (79-100) 81 fL (79-100) Mean Corpuscular Hemoglobin 23 pg (25-35) 27 pg (25-35) Mean Corpuscular Hemoglobin Concent 28 g/dL (31-37) 33 g/dL (31-37) Red Cell Distribution Width 20.1 % (11.5-14.5) 18.7 % (11.5-14.5) Platelet Count 174 x10^3/uL (140-400) 76 x10^3/uL (140-400) Neutrophils (%) (Auto) 72 % (31-73) 76 % (31-73) Lymphocytes (%) (Auto) 18 % (24-48) 13 % (24-48) Monocytes (%) (Auto) 9 % (0-9) 10 % (0-9) Eosinophils (%) (Auto) 0 % (0-3) 0 % (0-3) Basophils (%) (Auto) 1 % (0-3) 1 % (0-3) Neutrophils # (Auto) 10.8 x10^3/uL (1.8-7.7) 5.4 x10^3/uL (1.8-7.7) Lymphocytes # (Auto) 2.7 x10^3/uL (1.0-4.8) 1.0 x10^3/uL (1.0-4.8) Monocytes # (Auto) 1.3 x10^3/uL (0.0-1.1) 0.7 x10^3/uL (0.0-1.1) Eosinophils # (Auto) 0.0 x10^3/uL (0.0-0.7) 0.0 x10^3/uL (0.0-0.7) Basophils # (Auto) 0.1 x10^3/uL (0.0-0.2) 0.0 x10^3/uL (0.0-0.2) Platelet Estimate Adequate (ADEQUATE) Polychromasia Occasional Hypochromasia Mod Poikilocytosis Slight Anisocytosis Mod Ovalocytes Occ [place] Cells Few Acanthocytes Few Schistocytes Occ Prothrombin Time 16.4 SEC (11.7-14.0) Prothromb Time International Ratio 1.4 (0.8-1.1) Sodium Level 142 mmol/L (136-145) 144 mmol/L (136-145) Potassium Level 3.8 mmol/L (3.5-5.1) 4.0 mmol/L (3.5-5.1) Chloride Level 97 mmol/L (98-107) 107 mmol/L (98-107) Carbon Dioxide Level 11 mmol/L (21-32) 27 mmol/L (21-32) Anion Gap 34 (6-14) 10 (6-14) Blood Urea Nitrogen 16 mg/dL (8-26) 13 mg/dL (8-26) Creatinine 1.3 mg/dL (0.7-1.3) 0.9 mg/dL (0.7-1.3) Estimated GFR (Cockcroft-Gault) 60.5 92.5 BUN/Creatinine Ratio 12 (6-20) Glucose Level 197 mg/dL (70-99) 107 mg/dL (70-99) Calcium Level 8.4 mg/dL (8.5-10.1) 7.7 mg/dL (8.5-10.1) Total Bilirubin 0.4 mg/dL (0.2-1.0) Aspartate Amino Transf (AST/SGOT) 110 U/L (15-37) Alanine Aminotransferase (ALT/SGPT) 106 U/L (16-63) Alkaline Phosphatase 48 U/L (46-116) Troponin I Quantitative < 0.017 ng/mL (0.000-0.055) Total Protein 6.0 g/dL (6.4-8.2) Albumin 2.9 g/dL (3.4-5.0) Albumin/Globulin Ratio 0.9 (1.0-1.7) Ethyl Alcohol Level 111 mg/dL (0-10) Urine Collection Type Unknown Urine Color Yellow Urine Clarity Clear Urine pH 5.5 Urine Specific [place] 1.020 Urine Protein Negative mg/dL (NEG-TRACE) Urine Glucose (UA) Negative mg/dL (NEG) Urine Ketones (Stick) 40 mg/dL (NEG) Urine Blood Trace (NEG) Urine Nitrite Negative (NEG) Urine Bilirubin Negative (NEG) Urine Urobilinogen Dipstick 0.2 mg/dL (0.2 mg/dL) Urine Leukocyte Esterase Negative (NEG) Urine RBC 0 /HPF (0-2) Urine WBC Rare /HPF (0-4) Urine Squamous Epithelial Cells Occ /LPF Urine Bacteria 0 /HPF (0-FEW) Urine Mucus Slight /LPF Urine Opiates Screen Neg (NEG) Urine Methadone Screen Neg (NEG) Urine Barbiturates Neg (NEG) Urine Phencyclidine Screen Neg (NEG) Urine Amphetamine/Methamphetamine Neg (NEG) Urine Benzodiazepines Screen Neg (NEG) Urine Cocaine Screen Neg (NEG) Urine Cannabinoids Screen Neg (NEG) Urine Ethyl Alcohol Pos (NEG) O2 Saturation 99 % (92-99) Arterial Blood pH 7.28 (7.35-7.45) Arterial Blood pCO2 at Patient Temp 40 mmHg (35-46) Arterial Blood pO2 at Patient Temp 417 mmHg (75-108) Arterial Blood HCO3 18 mmol/L (21-28) Arterial Blood Base Excess -8 mmol/L (-3-3) FiO2 100 Test 09/15/19 08:55 09/15/19 20:20 09/16/19 06:15 09/16/19 08:00 O2 Saturation 98 % (92-99) 98 % (92-99) Arterial Blood pH 7.42 (7.35-7.45) 7.39 (7.35-7.45) Arterial Blood pCO2 at Patient Temp 39 mmHg (35-46) 40 mmHg (35-46) Arterial Blood pO2 at Patient Temp 150 mmHg (75-108) 112 mmHg (75-108) Arterial Blood HCO3 25 mmol/L (21-28) 24 mmol/L (21-28) Arterial Blood Base Excess 1 mmol/L (-3-3) -1 mmol/L (-3-3) FiO2 40 40% vent White Blood Count 7.9 x10^3/uL (4.0-11.0) 6.9 x10^3/uL (4.0-11.0) Red Blood Count 2.90 x10^6/uL (4.30-5.70) 3.05 x10^6/uL (4.30-5.70) Hemoglobin 7.8 g/dL (13.0-17.5) 8.5 g/dL (13.0-17.5) Hematocrit 24.1 % (39.0-53.0) 25.7 % (39.0-53.0) Mean Corpuscular Volume 83 fL (79-100) 84 fL (79-100) Mean Corpuscular Hemoglobin 27 pg (25-35) 28 pg (25-35) Mean Corpuscular Hemoglobin Concent 33 g/dL (31-37) 33 g/dL (31-37) Red Cell Distribution Width 17.5 % (11.5-14.5) 17.4 % (11.5-14.5) Platelet Count 75 x10^3/uL (140-400) 75 x10^3/uL (140-400) Sodium Level 143 mmol/L (136-145) Potassium Level 3.7 mmol/L (3.5-5.1) Chloride Level 110 mmol/L (98-107) Carbon Dioxide Level 26 mmol/L (21-32) Anion Gap 7 (6-14) Blood Urea Nitrogen 11 mg/dL (8-26) Creatinine 0.7 mg/dL (0.7-1.3) Estimated GFR (Cockcroft-Gault) 123.7 Glucose Level 96 mg/dL (70-99) Calcium Level 7.8 mg/dL (8.5-10.1) Phosphorus Level 3.4 mg/dL (2.6-4.7) Magnesium Level 1.4 mg/dL (1.8-2.4) Test 09/16/19 13:45 Ammonia 26 mcmol/L (11-34) Laboratory Tests Test 09/15/19 20:20 09/16/19 06:15 09/16/19 08:00 09/16/19 13:45 White Blood Count 7.9 x10^3/uL (4.0-11.0) 6.9 x10^3/uL (4.0-11.0) Red Blood Count 2.90 x10^6/uL (4.30-5.70) 3.05 x10^6/uL (4.30-5.70) Hemoglobin 7.8 g/dL (13.0-17.5) 8.5 g/dL (13.0-17.5) Hematocrit 24.1 % (39.0-53.0) 25.7 % (39.0-53.0) Mean Corpuscular Volume 83 fL (79-100) 84 fL (79-100) Mean Corpuscular Hemoglobin 27 pg (25-35) 28 pg (25-35) Mean Corpuscular Hemoglobin Concent 33 g/dL (31-37) 33 g/dL (31-37) Red Cell Distribution Width 17.5 % (11.5-14.5) 17.4 % (11.5-14.5) Platelet Count 75 x10^3/uL (140-400) 75 x10^3/uL (140-400) Sodium Level 143 mmol/L (136-145) Potassium Level 3.7 mmol/L (3.5-5.1) Chloride Level 110 mmol/L (98-107) Carbon Dioxide Level 26 mmol/L (21-32) Anion Gap 7 (6-14) Blood Urea Nitrogen 11 mg/dL (8-26) Creatinine 0.7 mg/dL (0.7-1.3) Estimated GFR (Cockcroft-Gault) 123.7 Glucose Level 96 mg/dL (70-99) Calcium Level 7.8 mg/dL (8.5-10.1) Phosphorus Level 3.4 mg/dL (2.6-4.7) Magnesium Level 1.4 mg/dL (1.8-2.4) O2 Saturation 98 % (92-99) Arterial Blood pH 7.39 (7.35-7.45) Arterial Blood pCO2 at Patient Temp 40 mmHg (35-46) Arterial Blood pO2 at Patient Temp 112 mmHg (75-108) Arterial Blood HCO3 24 mmol/L (21-28) Arterial Blood Base Excess -1 mmol/L (-3-3) FiO2 40% vent Ammonia 26 mcmol/L (11-34) Images Images CT scan of the head without contrast 09/14/2019 Clinical History: Tremors. Technique: Unenhanced, contiguous, 5 mm axial sections were obtained through the head. One or more of the following individualized dose reduction techniques were utilized for this study: 1. Automated exposure control. 2. Adjustment of the mA and/or kV according to patient size. 3. Use of iterative reconstruction technique. Findings: Comparison study is dated 06/18/2019. Images are degraded by patient motion. There is mild generalized parenchymal atrophy. No acute parenchymal abnormality is seen. No extra-axial fluid collection is noted. No skull fracture is seen. Impression: No acute intracranial abnormality is seen. Assessment/Plan Assessment/Plan Impression: These coarse movements do not sound like seizures and indeed probably are just automatisms from withdrawal. Of course he is on 3 sedatives now all having anticonvulsant effects. Recommendations: I will cover with some levetiracetam EEG is worthless in the situation given the sedatives. Try to again to wean off sedatives tomorrow. Overall prognosis in this patient who refuses to stop drinking is very poor. Thank you for letting me help with the patient's care. JUANCARLOS CULP MD Sep 16, 2019 15:47
[2019-09-16] MEDS: hydrALAZINE 20 MG/ML VIAL. IVP PRN (18:16)
[2019-09-16] MEDS: levETIRAcetam 500 MG in IV DEXTROSE 5% 100ML 100 ML IV SCH (20:52)
[2019-09-17] VITALS (24 sets, daily range): BP systolic 127–181; BP diastolic 47–98
[2019-09-17] MEDS: PROPOFOL 100 ML IV PRN (03:32)
[2019-09-17] MEDS: hydrALAZINE 20 MG/ML VIAL. IVP PRN ×2 (04:08→15:49)
[2019-09-17 05:08] LABS: BASO # 0.1 x10^3/uL (0.0-0.2); BASO % 1 % (0-3); EOS # 0.2 x10^3/uL (0.0-0.7); EOS % 3 % (0-3); HEMATOCRIT 27.2 % (39.0-53.0); LYMPH # 0.9 x10^3/uL (1.0-4.8); LYMPH % 16 % (24-48); MEAN CORPUSCULAR HEMOGLOBIN 28 pg (25-35); MEAN CORPUSCULAR HGB CONC 33 g/dL (31-37); MEAN CORPUSCULAR VOLUME 84 fL (79-100); MONO # 0.6 x10^3/uL (0.0-1.1); MONO % 10 % (0-9); NEUT # 4.3 x10^3/uL (1.8-7.7); NEUT % 71 % (31-73); PLATELET COUNT 83 x10^3/uL (140-400); RED BLOOD COUNT 3.26 x10^6/uL (4.30-5.70); RED CELL DISTRIBUTION WIDTH 17.4 % (11.5-14.5); WHITE BLOOD COUNT 6.1 x10^3/uL (4.0-11.0)
[2019-09-17 05:59] LABS: ALBUMIN 2.1 g/dL (3.4-5.0); ALBUMIN/GLOBULIN RATIO 0.7 (1.0-1.7); CALCIUM 7.6 mg/dL (8.5-10.1); CREATININE 0.6 mg/dL (0.7-1.3); GFR 147.8; POTASSIUM 3.4 mmol/L (3.5-5.1); TOTAL BILIRUBIN 0.4 mg/dL (0.2-1.0)
[2019-09-17] MEDS: levETIRAcetam 500 MG in IV DEXTROSE 5% 100ML 100 ML IV SCH ×2 (08:06→20:27)
[2019-09-17] MEDS: MULTIVIT INFUSN,ADULT 4,VIT K 10 ML, THIAMINE INJ 100 MG, FOLIC ACID INJ 1 MG in IV NOR... IV SCH (08:06)
[2019-09-17 08:10] LABS: BASE EXCESS ABG 0 mmol/L (-3-3); HCO3 ABG 24 mmol/L (21-28); PCO2 ABG 37 mmHg (35-46); PO2 ABG 143 mmHg (75-108); SAT O2 ABG 98 % (92-99)
[2019-09-17] MEDS: DEXMEDETOMIDINE 400 MCG in IV NORMAL SALINE 100ML 96 ML IV PRN ×2 (08:11→15:47)
[2019-09-17] MEDS: PANTOPRAZOLE IV PUSH 40 MG VIAL. IVP SCH ×2 (09:08→20:27)
[2019-09-17] MEDS: cefTRIAXone IV Push 1 GM VIAL. IVP SCH (09:08)
[2019-09-17] MEDS: MAGNESIUM SULFATE 4GM 100 ML IV SCH (09:17)
--- NOTE | 2019-09-17 09:22 | PDOC ---
Objective: Objective: D/w nurse - no bleeding. Turned Fentanyl down earlier, then about 30 min later arms started shaking, legs and feet got tight. Reviewed neurology note - suspect shaking is withdrawal behavior rather than seizures - covering with levetiracetam. Vital Signs: Vital Signs Date Time Temp Pulse Resp B/P (MAP) Pulse Ox O2 Delivery O2 Flow Rate FiO2 09/17/19 07:58 100 Ventilator 09/17/19 06:00 71 16 143/57 (85) 09/17/19 04:00 99.7 99.7 Labs: Laboratory Tests Test 09/16/19 13:45 09/17/19 04:00 Ammonia 26 mcmol/L White Blood Count 6.1 x10^3/uL Red Blood Count 3.26 x10^6/uL Hemoglobin 9.0 g/dL Hematocrit 27.2 % Mean Corpuscular Volume 84 fL Mean Corpuscular Hemoglobin 28 pg Mean Corpuscular Hemoglobin Concent 33 g/dL Red Cell Distribution Width 17.4 % Platelet Count 83 x10^3/uL Neutrophils (%) (Auto) 71 % Lymphocytes (%) (Auto) 16 % Monocytes (%) (Auto) 10 % Eosinophils (%) (Auto) 3 % Basophils (%) (Auto) 1 % Neutrophils # (Auto) 4.3 x10^3/uL Lymphocytes # (Auto) 0.9 x10^3/uL Monocytes # (Auto) 0.6 x10^3/uL Eosinophils # (Auto) 0.2 x10^3/uL Basophils # (Auto) 0.1 x10^3/uL Sodium Level 141 mmol/L Potassium Level 3.4 mmol/L Chloride Level 107 mmol/L Carbon Dioxide Level 27 mmol/L Anion Gap 7 Blood Urea Nitrogen 7 mg/dL Creatinine 0.6 mg/dL Estimated GFR (Cockcroft-Gault) 147.8 BUN/Creatinine Ratio 12 Glucose Level 136 mg/dL Calcium Level 7.6 mg/dL Magnesium Level 1.7 mg/dL Total Bilirubin 0.4 mg/dL Aspartate Amino Transf (AST/SGOT) 82 U/L Alanine Aminotransferase (ALT/SGPT) 105 U/L Alkaline Phosphatase 49 U/L Total Protein 5.0 g/dL Albumin 2.1 g/dL Albumin/Globulin Ratio 0.7 PE: GEN: intubated LUNGS: clear anteriorly, vemt HEART: RRR ABD: soft, quiet NEURO/PSYCH: sedated A/P: Hematemesis (resolved) Anemia (stable), thrombocytopenia, hypomagnesemia (improved - 1.4 to 1.7), elevated AST and ALT (better) Erosive esophagitis, DU - s/p endotherapy 09/15/19 - on IV PPI Hepatic steatosis - worse per CT Alcohol abuse/withdrawal, psych issues, h/o recurrent pancreatitis - no peripancreatic inflammation on CT -- Continue PPI, monitor Hgb. Follow neurology recs. Extended hospital stays in the past. Will review all w/ Dr. Rogers. Hemodynamically unstable?: No Is patient in severe pain?: No Is NPO status required?: Yes MESSI GORE Sep 17, 2019 09:22
--- NOTE | 2019-09-17 10:02 | PDOC ---
PROGRESS NOTES History of Present Illness History of Present Illness VTE Prophylaxis Ordered VTE Prophylaxis Devices: Yes VTE Pharmacological Prophylaxi: Contraindicated Assessment/Plan Assessment/Plan IMPRESSION: 1. acute UGI BLEED 2. severe diffuse hepatic steatosis. 3. Erosive esophagitis, epinephrine injection duodenal ulcer in the first and second portions of duodenum with a visible vessel, status post epinephrine injection. 4. polysubstance abuse, ALCOHOL, COCAINE, THC 5. ELECTROLYTE IMBALANCE PLAN ADMIT ICU status post epinephrine injection second portions of duodenum with a visible GI CONSULTED IN ER TRANSFUSED PRN alcohol withdrawal protocol SCD'S pat consult VENT SUPPORT D/C PROTONIX DRIP replete lytes 09/16 EXTUBATED 34 min cc time Vitals Vitals Vital Signs Date Time Temp Pulse Resp B/P (MAP) Pulse Ox O2 Delivery O2 Flow Rate FiO2 09/17/19 07:58 100 Ventilator 09/17/19 06:00 71 16 143/57 (85) 09/17/19 04:00 99.7 99.7 Physical Exam Physical Exam SEDATED ON VENT General: No acute distress Heart: Regular rate, Normal S1, Normal S2 Lungs: Clear Abdomen: Normal bowel sounds, Soft, No tenderness Extremities: No cyanosis, No edema Labs LABS Laboratory Tests Test 09/16/19 13:45 09/17/19 04:00 Ammonia 26 mcmol/L (11-34) White Blood Count 6.1 x10^3/uL (4.0-11.0) Red Blood Count 3.26 x10^6/uL (4.30-5.70) Hemoglobin 9.0 g/dL (13.0-17.5) Hematocrit 27.2 % (39.0-53.0) Mean Corpuscular Volume 84 fL (79-100) Mean Corpuscular Hemoglobin 28 pg (25-35) Mean Corpuscular Hemoglobin Concent 33 g/dL (31-37) Red Cell Distribution Width 17.4 % (11.5-14.5) Platelet Count 83 x10^3/uL (140-400) Neutrophils (%) (Auto) 71 % (31-73) Lymphocytes (%) (Auto) 16 % (24-48) Monocytes (%) (Auto) 10 % (0-9) Eosinophils (%) (Auto) 3 % (0-3) Basophils (%) (Auto) 1 % (0-3) Neutrophils # (Auto) 4.3 x10^3/uL (1.8-7.7) Lymphocytes # (Auto) 0.9 x10^3/uL (1.0-4.8) Monocytes # (Auto) 0.6 x10^3/uL (0.0-1.1) Eosinophils # (Auto) 0.2 x10^3/uL (0.0-0.7) Basophils # (Auto) 0.1 x10^3/uL (0.0-0.2) Sodium Level 141 mmol/L (136-145) Potassium Level 3.4 mmol/L (3.5-5.1) Chloride Level 107 mmol/L (98-107) Carbon Dioxide Level 27 mmol/L (21-32) Anion Gap 7 (6-14) Blood Urea Nitrogen 7 mg/dL (8-26) Creatinine 0.6 mg/dL (0.7-1.3) Estimated GFR (Cockcroft-Gault) 147.8 BUN/Creatinine Ratio 12 (6-20) Glucose Level 136 mg/dL (70-99) Calcium Level 7.6 mg/dL (8.5-10.1) Magnesium Level 1.7 mg/dL (1.8-2.4) Total Bilirubin 0.4 mg/dL (0.2-1.0) Aspartate Amino Transf (AST/SGOT) 82 U/L (15-37) Alanine Aminotransferase (ALT/SGPT) 105 U/L (16-63) Alkaline Phosphatase 49 U/L (46-116) Total Protein 5.0 g/dL (6.4-8.2) Albumin 2.1 g/dL (3.4-5.0) Albumin/Globulin Ratio 0.7 (1.0-1.7) Assessment and Plan Assessmemt and Plan Problems Medical Problems: (1) GI bleed Status: Acute Comment Review of Relevant I have reviewed the following items wali (where applicable) has been applied. Labs Laboratory Tests Test 09/15/19 20:20 09/16/19 06:15 09/16/19 08:00 09/16/19 13:45 White Blood Count 7.9 x10^3/uL (4.0-11.0) 6.9 x10^3/uL (4.0-11.0) Red Blood Count 2.90 x10^6/uL (4.30-5.70) 3.05 x10^6/uL (4.30-5.70) Hemoglobin 7.8 g/dL (13.0-17.5) 8.5 g/dL (13.0-17.5) Hematocrit 24.1 % (39.0-53.0) 25.7 % (39.0-53.0) Mean Corpuscular Volume 83 fL (79-100) 84 fL (79-100) Mean Corpuscular Hemoglobin 27 pg (25-35) 28 pg (25-35) Mean Corpuscular Hemoglobin Concent 33 g/dL (31-37) 33 g/dL (31-37) Red Cell Distribution Width 17.5 % (11.5-14.5) 17.4 % (11.5-14.5) Platelet Count 75 x10^3/uL (140-400) 75 x10^3/uL (140-400) Sodium Level 143 mmol/L (136-145) Potassium Level 3.7 mmol/L (3.5-5.1) Chloride Level 110 mmol/L (98-107) Carbon Dioxide Level 26 mmol/L (21-32) Anion Gap 7 (6-14) Blood Urea Nitrogen 11 mg/dL (8-26) Creatinine 0.7 mg/dL (0.7-1.3) Estimated GFR (Cockcroft-Gault) 123.7 Glucose Level 96 mg/dL (70-99) Calcium Level 7.8 mg/dL (8.5-10.1) Phosphorus Level 3.4 mg/dL (2.6-4.7) Magnesium Level 1.4 mg/dL (1.8-2.4) O2 Saturation 98 % (92-99) Arterial Blood pH 7.39 (7.35-7.45) Arterial Blood pCO2 at Patient Temp 40 mmHg (35-46) Arterial Blood pO2 at Patient Temp 112 mmHg (75-108) Arterial Blood HCO3 24 mmol/L (21-28) Arterial Blood Base Excess -1 mmol/L (-3-3) FiO2 40% vent Ammonia 26 mcmol/L (11-34) Test 09/17/19 04:00 White Blood Count 6.1 x10^3/uL (4.0-11.0) Red Blood Count 3.26 x10^6/uL (4.30-5.70) Hemoglobin 9.0 g/dL (13.0-17.5) Hematocrit 27.2 % (39.0-53.0) Mean Corpuscular Volume 84 fL (79-100) Mean Corpuscular Hemoglobin 28 pg (25-35) Mean Corpuscular Hemoglobin Concent 33 g/dL (31-37) Red Cell Distribution Width 17.4 % (11.5-14.5) Platelet Count 83 x10^3/uL (140-400) Neutrophils (%) (Auto) 71 % (31-73) Lymphocytes (%) (Auto) 16 % (24-48) Monocytes (%) (Auto) 10 % (0-9) Eosinophils (%) (Auto) 3 % (0-3) Basophils (%) (Auto) 1 % (0-3) Neutrophils # (Auto) 4.3 x10^3/uL (1.8-7.7) Lymphocytes # (Auto) 0.9 x10^3/uL (1.0-4.8) Monocytes # (Auto) 0.6 x10^3/uL (0.0-1.1) Eosinophils # (Auto) 0.2 x10^3/uL (0.0-0.7) Basophils # (Auto) 0.1 x10^3/uL (0.0-0.2) Sodium Level 141 mmol/L (136-145) Potassium Level 3.4 mmol/L (3.5-5.1) Chloride Level 107 mmol/L (98-107) Carbon Dioxide Level 27 mmol/L (21-32) Anion Gap 7 (6-14) Blood Urea Nitrogen 7 mg/dL (8-26) Creatinine 0.6 mg/dL (0.7-1.3) Estimated GFR (Cockcroft-Gault) 147.8 BUN/Creatinine Ratio 12 (6-20) Glucose Level 136 mg/dL (70-99) Calcium Level 7.6 mg/dL (8.5-10.1) Magnesium Level 1.7 mg/dL (1.8-2.4) Total Bilirubin 0.4 mg/dL (0.2-1.0) Aspartate Amino Transf (AST/SGOT) 82 U/L (15-37) Alanine Aminotransferase (ALT/SGPT) 105 U/L (16-63) Alkaline Phosphatase 49 U/L (46-116) Total Protein 5.0 g/dL (6.4-8.2) Albumin 2.1 g/dL (3.4-5.0) Albumin/Globulin Ratio 0.7 (1.0-1.7) Laboratory Tests Test 09/16/19 13:45 09/17/19 04:00 Ammonia 26 mcmol/L (11-34) White Blood Count 6.1 x10^3/uL (4.0-11.0) Red Blood Count 3.26 x10^6/uL (4.30-5.70) Hemoglobin 9.0 g/dL (13.0-17.5) Hematocrit 27.2 % (39.0-53.0) Mean Corpuscular Volume 84 fL (79-100) Mean Corpuscular Hemoglobin 28 pg (25-35) Mean Corpuscular Hemoglobin Concent 33 g/dL (31-37) Red Cell Distribution Width 17.4 % (11.5-14.5) Platelet Count 83 x10^3/uL (140-400) Neutrophils (%) (Auto) 71 % (31-73) Lymphocytes (%) (Auto) 16 % (24-48) Monocytes (%) (Auto) 10 % (0-9) Eosinophils (%) (Auto) 3 % (0-3) Basophils (%) (Auto) 1 % (0-3) Neutrophils # (Auto) 4.3 x10^3/uL (1.8-7.7) Lymphocytes # (Auto) 0.9 x10^3/uL (1.0-4.8) Monocytes # (Auto) 0.6 x10^3/uL (0.0-1.1) Eosinophils # (Auto) 0.2 x10^3/uL (0.0-0.7) Basophils # (Auto) 0.1 x10^3/uL (0.0-0.2) Sodium Level 141 mmol/L (136-145) Potassium Level 3.4 mmol/L (3.5-5.1) Chloride Level 107 mmol/L (98-107) Carbon Dioxide Level 27 mmol/L (21-32) Anion Gap 7 (6-14) Blood Urea Nitrogen 7 mg/dL (8-26) Creatinine 0.6 mg/dL (0.7-1.3) Estimated GFR (Cockcroft-Gault) 147.8 BUN/Creatinine Ratio 12 (6-20) Glucose Level 136 mg/dL (70-99) Calcium Level 7.6 mg/dL (8.5-10.1) Magnesium Level 1.7 mg/dL (1.8-2.4) Total Bilirubin 0.4 mg/dL (0.2-1.0) Aspartate Amino Transf (AST/SGOT) 82 U/L (15-37) Alanine Aminotransferase (ALT/SGPT) 105 U/L (16-63) Alkaline Phosphatase 49 U/L (46-116) Total Protein 5.0 g/dL (6.4-8.2) Albumin 2.1 g/dL (3.4-5.0) Albumin/Globulin Ratio 0.7 (1.0-1.7) Medications Current Medications Ondansetron HCl (Zofran) 4 mg STK-MED ONCE .ROUTE ; Start 09/14/19 at 17:54; Stop 09/14/19 at 17:54; Status DC Lorazepam (Ativan Inj) 2 mg STK-MED ONCE .ROUTE ; Start 09/14/19 at 17:55; Stop 09/14/19 at 17:55; Status DC Lorazepam (Ativan Inj) 2 mg 1X ONCE IVP Last administered on 09/14/19at 18:05; Start 09/14/19 at 18:00; Stop 09/14/19 at 18:09; Status DC Ondansetron HCl (Zofran) 4 mg 1X ONCE IVP Last administered on 09/14/19at 18:04; Start 09/14/19 at 18:00; Stop 09/14/19 at 18:09; Status DC Pantoprazole Sodium (PROTONIX VIAL for IV PUSH) 40 mg 1X ONCE IVP Last administered on 09/14/19at 18:43; Start 09/14/19 at 18:00; Stop 09/14/19 at 18:09; Status DC Sodium Chloride 1,000 ml @ 1,000 mls/hr 1X ONCE IV Last administered on 09/14/19at 19:10; Start 09/14/19 at 18:00; Stop 09/14/19 at 19:00; Status DC Multivitamins 10 ml/Thiamine HCl 100 mg/Folic Acid 1 mg/Sodium Chloride 1,011.2 ml @ 100 mls/ hr DAILY IV Last administered on 09/17/19at 08:06; Start 09/14/19 at 18:30; Stop 09/18/19 at 19:07 Lorazepam (Ativan Inj) 2 mg PRN Q1HR PRN IV For CIWA 8-14 Last administered on 09/14/19at 18:43; Start 09/14/19 at 18:30 Lorazepam (Ativan Inj) 4 mg PRN Q1HR PRN IV For CIWA 15 or greater Last administered on 09/16/19at 20:03; Start 09/14/19 at 18:30 Pantoprazole Sodium 80 mg/ Sodium Chloride 100 ml @ 10 mls/hr 1X ONCE IV Last administered on 09/14/19at 18:44; Start 09/14/19 at 18:30; Stop 09/15/19 at 04:29; Status DC Iohexol (Omnipaque 300 Mg/ml) 75 ml 1X ONCE IV ; Start 09/14/19 at 19:00; Stop 09/14/19 at 19:01; Status DC Info (CONTRAST GIVEN -- Rx MONITORING) 1 each PRN DAILY PRN MC SEE COMMENTS; Start 09/14/19 at 19:00; Stop 09/16/19 at 18:59; Status DC Ondansetron HCl (Zofran) 4 mg PRN Q8HRS PRN IV NAUSEA/VOMITING; Start 09/14/19 at 19:30; Stop 09/15/19 at 19:29; Status DC Sodium Chloride 1,000 ml @ 125 mls/hr Q8H IV Last administered on 09/15/19at 15:39; Start 09/14/19 at 19:19; Stop 09/15/19 at 19:18; Status DC Etomidate (Amidate) 20 mg STK-MED ONCE IV ; Start 09/14/19 at 21:22; Stop 09/14/19 at 21:22; Status DC Lidocaine HCl (Lidocaine Pf 2% Vial) 5 ml STK-MED ONCE .ROUTE ; Start 09/14/19 at 21:22; Stop 09/14/19 at 21:22; Status DC Rocuronium Henderson (Zemuron) 50 mg STK-MED ONCE .ROUTE ; Start 09/14/19 at 21:23; Stop 09/14/19 at 21:23; Status DC Phenylephrine HCl (PHENYLEPHRINE in 0.9% NACL PF) 1 mg STK-MED ONCE IV ; Start 09/14/19 at 21:24; Stop 09/14/19 at 21:24; Status DC Propofol 100 ml @ 0 mls/hr CONT PRN IV SEE PROTOCOL Last administered on 09/17/19at 03:32; Start 09/14/19 at 22:30 Fentanyl Citrate (Fentanyl 2ml Vial) 25 mcg PRN Q1HR PRN IV SEE COMMENTS; Start 09/14/19 at 22:30; Stop 09/15/19 at 06:26; Status DC Fentanyl Citrate (Fentanyl 2ml Vial) 50 mcg PRN Q1HR PRN IV SEE COMMENTS; Start 09/14/19 at 22:30; Stop 09/15/19 at 06:26; Status DC Epinephrine HCl (EPINEPHrine SYRINGE) 1 mg STK-MED ONCE .ROUTE ; Start 09/14/19 at 23:19; Stop 09/14/19 at 23:20; Status DC Pantoprazole Sodium (PROTONIX VIAL for IV PUSH) 40 mg BID IVP Last administered on 09/17/19at 09:08; Start 09/15/19 at 09:00 Epinephrine HCl (EPINEPHrine SYRINGE) 1 mg STK-MED ONCE IV Last administered on 09/14/19at 23:00; Start 09/14/19 at 23:00; Stop 09/14/19 at 23:29; Status DC Fentanyl Citrate 30 ml @ 0 mls/hr CONT PRN IV SEE PROTOCOL Last administered on 09/16/19at 20:58; Start 09/14/19 at 23:45 Midazolam HCl 50 mg/Sodium Chloride 50 ml @ 0 mls/hr CONT PRN IV SEE PROTOCOL Last administered on 09/15/19at 22:10; Start 09/14/19 at 23:45 Sodium Bicarbonate (Sodium Bicarb Adult 8.4% Syr) 50 meq 1X ONCE IV Last administered on 09/15/19at 01:25; Start 09/15/19 at 01:00; Stop 09/15/19 at 01:01; Status DC Sodium Chloride 1,000 ml @ 50 mls/hr Q20H IV Last administered on 09/16/19at 08:37; Start 09/16/19 at 02:00 Dexmedetomidine HCl 400 mcg/ Sodium Chloride 100 ml @ 0 mls/hr CONT PRN IV AGITATION Last administered on 09/17/19at 08:11; Start 09/16/19 at 08:30 Sodium Chloride 500 ml @ 500 mls/hr 1X PRN PRN IV HYPOTENTION; Start 09/16/19 at 08:30 Atropine Sulfate (ATROPINE 0.5mg SYRINGE) 0.5 mg PRN Q5MIN PRN IV SEE COMMENTS; Start 09/16/19 at 08:30 Amino Acids/ Glycerin/ Electrolytes 1,000 ml @ 80 mls/hr [id number] IV ; Start 09/16/19 at 10:00; Status UNV Ceftriaxone Sodium (Rocephin) 1 gm Q24H IVP Last administered on 09/17/19at 09:08; Start 09/16/19 at 11:00 Amino Acids/ Electrolytes/ Dextrose 1,000 ml @ 80 mls/hr [id number] IV Last administered on 09/16/19at 23:07; Start 09/16/19 at 10:15 Magnesium Sulfate/ Dextrose 100 ml @ 100 mls/hr 1X ONCE IV Last administered on 09/16/19at 12:10; Start 09/16/19 at 11:45; Stop 09/16/19 at 12:44; Status DC Potassium Chloride/Water 100 ml @ 100 mls/hr Q1H IV ; Start 09/16/19 at 14:15; Stop 09/16/19 at 14:16; Status DC Potassium Chloride/Water 100 ml @ 100 mls/hr Q1H IV ; Start 09/16/19 at 14:15; Stop 09/16/19 at 14:17; Status DC Magnesium Sulfate 100 ml @ 50 mls/hr DAILY IV Last administered on 09/17/19at 09:17; Start 09/17/19 at 09:00; Stop 09/20/19 at 08:59 Sodium Phosphate 15 mmol/Sodium Chloride 255 ml @ 62.5 mls/hr PRN 1X PRN IV SEE COMMENTS; Start 09/16/19 at 14:15 Sodium Phosphate 15 mmol/Sodium Chloride 255 ml @ 62.5 mls/hr PRN 1X PRN IV SEE COMMENTS; Start 09/16/19 at 14:15 Potassium Chloride/Water 100 ml @ 100 mls/hr PRN Q1HR PRN IV SEE COMMENTS; Start 09/16/19 at 14:30 Potassium Chloride/Water 100 ml @ 100 mls/hr PRN Q1HR PRN IV SEE COMMENTS; Start 09/16/19 at 14:30 Levetiracetam 500 mg/Dextrose 105 ml @ 420 mls/hr Q12HR IV Last administered on 09/17/19at 08:06; Start 09/16/19 at 21:00 Hydralazine HCl (Apresoline Inj) 10 mg PRN Q4HRS PRN IVP ELEVATED BP, SEE CO MMENTS Last administered on 09/17/19at 04:08; Start 09/16/19 at 18:00 Active Scripts Active Protonix (Pantoprazole Sodium) 40 Mg Tablet.dr 40 Mg PO DAILYAC PRN 30 Days Reported Amlodipine Besylate 5 Mg Tablet 5 Mg PO DAILY Proair Hfa Inhaler (Albuterol Sulfate) 8.5 Gm Hfa.aer.ad 1 Puff INH PRN Q4HRS PRN Symbicort 160-4.5 Mcg Inhaler (Budesonide/Formoterol Fumarate) 10.2 Gm Hfa.aer.ad 2 Puff IH BID Theophylline (Theophylline Anhydrous) 400 Mg Tablet.er 300 Mg PO BID Vitals/I & O Vital Sign - Last 24 Hours 09/16/19 09/16/19 09/16/19 09/16/19 11:00 11:23 12:00 12:00 Temp 98.8 98.8 Pulse 68 82 Resp 16 20 B/P (MAP) 163/102 (122) 163/102 (122) Pulse Ox 100 100 99 O2 Delivery Ventilator Ventilator Ventilator Mechanical Ventilator 09/16/19 09/16/19 09/16/19 09/16/19 13:00 13:37 14:00 15:00 Pulse 64 84 84 Resp 18 19 18 B/P (MAP) 160/98 (118) 183/105 (131) 183/105 (131) Pulse Ox 100 100 99 100 O2 Delivery Ventilator Ventilator Ventilator Ventilator 09/16/19 09/16/19 09/16/19 09/16/19 15:56 16:00 16:00 17:00 Temp 99.9 99.9 Pulse 77 84 Resp 16 18 B/P (MAP) 172/107 (128) 179/102 (127) Pulse Ox 99 99 99 O2 Delivery Ventilator Ventilator Mechanical Ventilator Ventilator 09/16/19 09/16/19 09/16/19 09/16/19 17:35 18:00 18:16 19:00 Pulse 86 74 83 Resp 16 16 B/P (MAP) 177/101 (126) 177/101 156/76 (102) Pulse Ox 99 97 97 O2 Delivery Ventilator Ventilator Ventilator 09/16/19 09/16/19 09/16/19 09/16/19 20:00 20:00 20:30 20:58 Temp 100.3 100.3 Pulse 92 Resp 16 16 B/P (MAP) 172/91 (118) Pulse Ox 99 99 O2 Delivery Ventilator Mechanical Ventilator Ventilator Ventilator 09/16/19 09/16/19 09/16/19 09/16/19 21:00 21:28 22:00 22:13 Pulse 74 65 Resp 16 16 16 B/P (MAP) 172/89 (116) 163/86 (111) Pulse Ox 98 99 100 O2 Delivery Ventilator Ventilator Ventilator Ventilator 09/16/19 09/16/19 09/16/19 09/17/19 23:00 23:58 23:59 00:00 Temp 99.2 99.2 Pulse 65 64 Resp 16 16 B/P (MAP) 161/85 (110) 165/91 (115) Pulse Ox 99 98 99 O2 Delivery Ventilator Ventilator Mechanical Ventilator Ventilator 09/17/19 09/17/19 09/17/19 09/17/19 01:00 01:35 02:00 03:00 Pulse 65 67 66 Resp 16 16 16 B/P (MAP) 167/90 (115) 169/89 (115) 167/91 (116) Pulse Ox 99 99 99 99 O2 Delivery Ventilator Ventilator Ventilator Ventilator 09/17/19 09/17/19 09/17/19 09/17/19 03:42 04:00 04:00 04:08 Temp 99.7 99.7 Pulse 92 65 Resp 16 B/P (MAP) 172/91 (118) 174/90 Pulse Ox 100 99 O2 Delivery Ventilator Mechanical Ventilator Ventilator 09/17/19 09/17/19 09/17/19 09/17/19 05:00 05:53 06:00 07:58 Pulse 73 71 Resp 16 16 B/P (MAP) 137/47 (77) 143/57 (85) Pulse Ox 98 100 99 100 O2 Delivery Ventilator Ventilator Ventilator Ventilator Intake and Output 09/16/19 09/16/19 09/17/19 15:00 23:00 07:00 Intake Total 100 ml 1506 ml 2927.67 ml Output Total 300 ml 805 ml 755 ml Balance -200 ml 701 ml 2172.67 ml Hemodynamically unstable?: No Is patient in severe pain?: No Is NPO status required?: Yes MENDOZA NICOLE MD Sep 17, 2019 10:02
[2019-09-17 10:03] LABS: FIO2 ABG 40
--- NOTE | 2019-09-17 10:09 | PDOC ---
PROGRESS NOTES Assessment Problems Medical Problems: (1) GI bleed Status: Acute These coarse movements do not sound like seizures and indeed probably are just automatisms from withdrawal. Of course he is on 3 sedatives now all having anticonvulsant effects. Plan Levetiracetam EEG is worthless in the situation given the sedatives. Try to again to wean off sedatives and ventilator today Overall prognosis in this patient who refuses to stop drinking is very poor. Subjective None Objective Vital Signs Date Time Temp Pulse Resp B/P (MAP) Pulse Ox O2 Delivery O2 Flow Rate FiO2 09/17/19 07:58 100 Ventilator 09/17/19 06:00 71 16 143/57 (85) 09/17/19 04:00 99.7 99.7 Intake and Output 09/17/19 07:00 Intake Total 4533.67 ml Output Total 1860 ml Balance 2673.67 ml Intake IV Total 4533.67 ml Output Urine Total 1860 ml PHYSICAL EXAM Intubated, sedated. PERRL. EOMI. CN: no focal findings. Muscle tone: normal. Muscle strength: moves slightly to pain DTR: 2+ Plantar reflex: silent Gait: not examined in bed. Sensory exam: no abnormal findings. No cerebellar signs elicited. Review of Relevant I have reviewed the following items wali (where applicable) has been applied. Labs Laboratory Tests Test 09/15/19 20:20 09/16/19 06:15 09/16/19 08:00 09/16/19 13:45 White Blood Count 7.9 x10^3/uL (4.0-11.0) 6.9 x10^3/uL (4.0-11.0) Red Blood Count 2.90 x10^6/uL (4.30-5.70) 3.05 x10^6/uL (4.30-5.70) Hemoglobin 7.8 g/dL (13.0-17.5) 8.5 g/dL (13.0-17.5) Hematocrit 24.1 % (39.0-53.0) 25.7 % (39.0-53.0) Mean Corpuscular Volume 83 fL (79-100) 84 fL (79-100) Mean Corpuscular Hemoglobin 27 pg (25-35) 28 pg (25-35) Mean Corpuscular Hemoglobin Concent 33 g/dL (31-37) 33 g/dL (31-37) Red Cell Distribution Width 17.5 % (11.5-14.5) 17.4 % (11.5-14.5) Platelet Count 75 x10^3/uL (140-400) 75 x10^3/uL (140-400) Sodium Level 143 mmol/L (136-145) Potassium Level 3.7 mmol/L (3.5-5.1) Chloride Level 110 mmol/L (98-107) Carbon Dioxide Level 26 mmol/L (21-32) Anion Gap 7 (6-14) Blood Urea Nitrogen 11 mg/dL (8-26) Creatinine 0.7 mg/dL (0.7-1.3) Estimated GFR (Cockcroft-Gault) 123.7 Glucose Level 96 mg/dL (70-99) Calcium Level 7.8 mg/dL (8.5-10.1) Phosphorus Level 3.4 mg/dL (2.6-4.7) Magnesium Level 1.4 mg/dL (1.8-2.4) O2 Saturation 98 % (92-99) Arterial Blood pH 7.39 (7.35-7.45) Arterial Blood pCO2 at Patient Temp 40 mmHg (35-46) Arterial Blood pO2 at Patient Temp 112 mmHg (75-108) Arterial Blood HCO3 24 mmol/L (21-28) Arterial Blood Base Excess -1 mmol/L (-3-3) FiO2 40% vent Ammonia 26 mcmol/L (11-34) Test 09/17/19 04:00 09/17/19 08:00 White Blood Count 6.1 x10^3/uL (4.0-11.0) Red Blood Count 3.26 x10^6/uL (4.30-5.70) Hemoglobin 9.0 g/dL (13.0-17.5) Hematocrit 27.2 % (39.0-53.0) Mean Corpuscular Volume 84 fL (79-100) Mean Corpuscular Hemoglobin 28 pg (25-35) Mean Corpuscular Hemoglobin Concent 33 g/dL (31-37) Red Cell Distribution Width 17.4 % (11.5-14.5) Platelet Count 83 x10^3/uL (140-400) Neutrophils (%) (Auto) 71 % (31-73) Lymphocytes (%) (Auto) 16 % (24-48) Monocytes (%) (Auto) 10 % (0-9) Eosinophils (%) (Auto) 3 % (0-3) Basophils (%) (Auto) 1 % (0-3) Neutrophils # (Auto) 4.3 x10^3/uL (1.8-7.7) Lymphocytes # (Auto) 0.9 x10^3/uL (1.0-4.8) Monocytes # (Auto) 0.6 x10^3/uL (0.0-1.1) Eosinophils # (Auto) 0.2 x10^3/uL (0.0-0.7) Basophils # (Auto) 0.1 x10^3/uL (0.0-0.2) Sodium Level 141 mmol/L (136-145) Potassium Level 3.4 mmol/L (3.5-5.1) Chloride Level 107 mmol/L (98-107) Carbon Dioxide Level 27 mmol/L (21-32) Anion Gap 7 (6-14) Blood Urea Nitrogen 7 mg/dL (8-26) Creatinine 0.6 mg/dL (0.7-1.3) Estimated GFR (Cockcroft-Gault) 147.8 BUN/Creatinine Ratio 12 (6-20) Glucose Level 136 mg/dL (70-99) Calcium Level 7.6 mg/dL (8.5-10.1) Magnesium Level 1.7 mg/dL (1.8-2.4) Total Bilirubin 0.4 mg/dL (0.2-1.0) Aspartate Amino Transf (AST/SGOT) 82 U/L (15-37) Alanine Aminotransferase (ALT/SGPT) 105 U/L (16-63) Alkaline Phosphatase 49 U/L (46-116) Total Protein 5.0 g/dL (6.4-8.2) Albumin 2.1 g/dL (3.4-5.0) Albumin/Globulin Ratio 0.7 (1.0-1.7) O2 Saturation 98 % (92-99) Arterial Blood pH 7.43 (7.35-7.45) Arterial Blood pCO2 at Patient Temp 37 mmHg (35-46) Arterial Blood pO2 at Patient Temp 143 mmHg (75-108) Arterial Blood HCO3 24 mmol/L (21-28) Arterial Blood Base Excess 0 mmol/L (-3-3) FiO2 40 Laboratory Tests Test 09/16/19 13:45 09/17/19 04:00 09/17/19 08:00 Ammonia 26 mcmol/L (11-34) White Blood Count 6.1 x10^3/uL (4.0-11.0) Red Blood Count 3.26 x10^6/uL (4.30-5.70) Hemoglobin 9.0 g/dL (13.0-17.5) Hematocrit 27.2 % (39.0-53.0) Mean Corpuscular Volume 84 fL (79-100) Mean Corpuscular Hemoglobin 28 pg (25-35) Mean Corpuscular Hemoglobin Concent 33 g/dL (31-37) Red Cell Distribution Width 17.4 % (11.5-14.5) Platelet Count 83 x10^3/uL (140-400) Neutrophils (%) (Auto) 71 % (31-73) Lymphocytes (%) (Auto) 16 % (24-48) Monocytes (%) (Auto) 10 % (0-9) Eosinophils (%) (Auto) 3 % (0-3) Basophils (%) (Auto) 1 % (0-3) Neutrophils # (Auto) 4.3 x10^3/uL (1.8-7.7) Lymphocytes # (Auto) 0.9 x10^3/uL (1.0-4.8) Monocytes # (Auto) 0.6 x10^3/uL (0.0-1.1) Eosinophils # (Auto) 0.2 x10^3/uL (0.0-0.7) Basophils # (Auto) 0.1 x10^3/uL (0.0-0.2) Sodium Level 141 mmol/L (136-145) Potassium Level 3.4 mmol/L (3.5-5.1) Chloride Level 107 mmol/L (98-107) Carbon Dioxide Level 27 mmol/L (21-32) Anion Gap 7 (6-14) Blood Urea Nitrogen 7 mg/dL (8-26) Creatinine 0.6 mg/dL (0.7-1.3) Estimated GFR (Cockcroft-Gault) 147.8 BUN/Creatinine Ratio 12 (6-20) Glucose Level 136 mg/dL (70-99) Calcium Level 7.6 mg/dL (8.5-10.1) Magnesium Level 1.7 mg/dL (1.8-2.4) Total Bilirubin 0.4 mg/dL (0.2-1.0) Aspartate Amino Transf (AST/SGOT) 82 U/L (15-37) Alanine Aminotransferase (ALT/SGPT) 105 U/L (16-63) Alkaline Phosphatase 49 U/L (46-116) Total Protein 5.0 g/dL (6.4-8.2) Albumin 2.1 g/dL (3.4-5.0) Albumin/Globulin Ratio 0.7 (1.0-1.7) O2 Saturation 98 % (92-99) Arterial Blood pH 7.43 (7.35-7.45) Arterial Blood pCO2 at Patient Temp 37 mmHg (35-46) Arterial Blood pO2 at Patient Temp 143 mmHg (75-108) Arterial Blood HCO3 24 mmol/L (21-28) Arterial Blood Base Excess 0 mmol/L (-3-3) FiO2 40 Medications Current Medications Ondansetron HCl (Zofran) 4 mg STK-MED ONCE .ROUTE ; Start 09/14/19 at 17:54; Stop 09/14/19 at 17:54; Status DC Lorazepam (Ativan Inj) 2 mg STK-MED ONCE .ROUTE ; Start 09/14/19 at 17:55; Stop 09/14/19 at 17:55; Status DC Lorazepam (Ativan Inj) 2 mg 1X ONCE IVP Last administered on 09/14/19at 18:05; Start 09/14/19 at 18:00; Stop 09/14/19 at 18:09; Status DC Ondansetron HCl (Zofran) 4 mg 1X ONCE IVP Last administered on 09/14/19at 18:04; Start 09/14/19 at 18:00; Stop 09/14/19 at 18:09; Status DC Pantoprazole Sodium (PROTONIX VIAL for IV PUSH) 40 mg 1X ONCE IVP Last administered on 09/14/19at 18:43; Start 09/14/19 at 18:00; Stop 09/14/19 at 18:09; Status DC Sodium Chloride 1,000 ml @ 1,000 mls/hr 1X ONCE IV Last administered on 09/14/19at 19:10; Start 09/14/19 at 18:00; Stop 09/14/19 at 19:00; Status DC Multivitamins 10 ml/Thiamine HCl 100 mg/Folic Acid 1 mg/Sodium Chloride 1,011.2 ml @ 100 mls/ hr DAILY IV Last administered on 09/17/19at 08:06; Start 09/14/19 at 18:30; Stop 09/18/19 at 19:07 Lorazepam (Ativan Inj) 2 mg PRN Q1HR PRN IV For CIWA 8-14 Last administered on 09/14/19at 18:43; Start 09/14/19 at 18:30 Lorazepam (Ativan Inj) 4 mg PRN Q1HR PRN IV For CIWA 15 or greater Last administered on 09/16/19at 20:03; Start 09/14/19 at 18:30 Pantoprazole Sodium 80 mg/ Sodium Chloride 100 ml @ 10 mls/hr 1X ONCE IV Last administered on 09/14/19at 18:44; Start 09/14/19 at 18:30; Stop 09/15/19 at 04:29; Status DC Iohexol (Omnipaque 300 Mg/ml) 75 ml 1X ONCE IV ; Start 09/14/19 at 19:00; Stop 09/14/19 at 19:01; Status DC Info (CONTRAST GIVEN -- Rx MONITORING) 1 each PRN DAILY PRN MC SEE COMMENTS; Start 09/14/19 at 19:00; Stop 09/16/19 at 18:59; Status DC Ondansetron HCl (Zofran) 4 mg PRN Q8HRS PRN IV NAUSEA/VOMITING; Start 09/14/19 at 19:30; Stop 09/15/19 at 19:29; Status DC Sodium Chloride 1,000 ml @ 125 mls/hr Q8H IV Last administered on 09/15/19at 15:39; Start 09/14/19 at 19:19; Stop 09/15/19 at 19:18; Status DC Etomidate (Amidate) 20 mg STK-MED ONCE IV ; Start 09/14/19 at 21:22; Stop 09/14/19 at 21:22; Status DC Lidocaine HCl (Lidocaine Pf 2% Vial) 5 ml STK-MED ONCE .ROUTE ; Start 09/14/19 at 21:22; Stop 09/14/19 at 21:22; Status DC Rocuronium Jackson (Zemuron) 50 mg STK-MED ONCE .ROUTE ; Start 09/14/19 at 21:23; Stop 09/14/19 at 21:23; Status DC Phenylephrine HCl (PHENYLEPHRINE in 0.9% NACL PF) 1 mg STK-MED ONCE IV ; Start 09/14/19 at 21:24; Stop 09/14/19 at 21:24; Status DC Propofol 100 ml @ 0 mls/hr CONT PRN IV SEE PROTOCOL Last administered on 09/17/19at 03:32; Start 09/14/19 at 22:30 Fentanyl Citrate (Fentanyl 2ml Vial) 25 mcg PRN Q1HR PRN IV SEE COMMENTS; Start 09/14/19 at 22:30; Stop 09/15/19 at 06:26; Status DC Fentanyl Citrate (Fentanyl 2ml Vial) 50 mcg PRN Q1HR PRN IV SEE COMMENTS; Start 09/14/19 at 22:30; Stop 09/15/19 at 06:26; Status DC Epinephrine HCl (EPINEPHrine SYRINGE) 1 mg STK-MED ONCE .ROUTE ; Start 09/14/19 at 23:19; Stop 09/14/19 at 23:20; Status DC Pantoprazole Sodium (PROTONIX VIAL for IV PUSH) 40 mg BID IVP Last administered on 09/17/19at 09:08; Start 09/15/19 at 09:00 Epinephrine HCl (EPINEPHrine SYRINGE) 1 mg STK-MED ONCE IV Last administered on 09/14/19at 23:00; Start 09/14/19 at 23:00; Stop 09/14/19 at 23:29; Status DC Fentanyl Citrate 30 ml @ 0 mls/hr CONT PRN IV SEE PROTOCOL Last administered on 09/16/19at 20:58; Start 09/14/19 at 23:45 Midazolam HCl 50 mg/Sodium Chloride 50 ml @ 0 mls/hr CONT PRN IV SEE PROTOCOL Last administered on 09/15/19at 22:10; Start 09/14/19 at 23:45 Sodium Bicarbonate (Sodium Bicarb Adult 8.4% Syr) 50 meq 1X ONCE IV Last administered on 09/15/19at 01:25; Start 09/15/19 at 01:00; Stop 09/15/19 at 01:01; Status DC Sodium Chloride 1,000 ml @ 50 mls/hr Q20H IV Last administered on 09/16/19at 08:37; Start 09/16/19 at 02:00 Dexmedetomidine HCl 400 mcg/ Sodium Chloride 100 ml @ 0 mls/hr CONT PRN IV AGITATION Last administered on 09/17/19at 08:11; Start 09/16/19 at 08:30 Sodium Chloride 500 ml @ 500 mls/hr 1X PRN PRN IV HYPOTENTION; Start 09/16/19 at 08:30 Atropine Sulfate (ATROPINE 0.5mg SYRINGE) 0.5 mg PRN Q5MIN PRN IV SEE COMMENTS; Start 09/16/19 at 08:30 Amino Acids/ Glycerin/ Electrolytes 1,000 ml @ 80 mls/hr [id number] IV ; Start 09/16/19 at 10:00; Status UNV Ceftriaxone Sodium (Rocephin) 1 gm Q24H IVP Last administered on 09/17/19at 09:08; Start 09/16/19 at 11:00 Amino Acids/ Electrolytes/ Dextrose 1,000 ml @ 80 mls/hr [id number] IV Last administered on 09/16/19at 23:07; Start 09/16/19 at 10:15 Magnesium Sulfate/ Dextrose 100 ml @ 100 mls/hr 1X ONCE IV Last administered on 09/16/19at 12:10; Start 09/16/19 at 11:45; Stop 09/16/19 at 12:44; Status DC Potassium Chloride/Water 100 ml @ 100 mls/hr Q1H IV ; Start 09/16/19 at 14:15; Stop 09/16/19 at 14:16; Status DC Potassium Chloride/Water 100 ml @ 100 mls/hr Q1H IV ; Start 09/16/19 at 14:15; Stop 09/16/19 at 14:17; Status DC Magnesium Sulfate 100 ml @ 50 mls/hr DAILY IV Last administered on 09/17/19at 09:17; Start 09/17/19 at 09:00; Stop 09/20/19 at 08:59 Sodium Phosphate 15 mmol/Sodium Chloride 255 ml @ 62.5 mls/hr PRN 1X PRN IV SEE COMMENTS; Start 09/16/19 at 14:15 Sodium Phosphate 15 mmol/Sodium Chloride 255 ml @ 62.5 mls/hr PRN 1X PRN IV SEE COMMENTS; Start 09/16/19 at 14:15 Potassium Chloride/Water 100 ml @ 100 mls/hr PRN Q1HR PRN IV SEE COMMENTS; Start 09/16/19 at 14:30 Potassium Chloride/Water 100 ml @ 100 mls/hr PRN Q1HR PRN IV SEE COMMENTS; Start 09/16/19 at 14:30 Levetiracetam 500 mg/Dextrose 105 ml @ 420 mls/hr Q12HR IV Last administered on 09/17/19at 08:06; Start 09/16/19 at 21:00 Hydralazine HCl (Apresoline Inj) 10 mg PRN Q4HRS PRN IVP ELEVATED BP, SEE COMMENTS Last administered on 09/17/19at 04:08; Start 09/16/19 at 18:00 Active Scripts Active Protonix (Pantoprazole Sodium) 40 Mg Tablet.dr 40 Mg PO DAILYAC PRN 30 Days Reported Amlodipine Besylate 5 Mg Tablet 5 Mg PO DAILY Proair Hfa Inhaler (Albuterol Sulfate) 8.5 Gm Hfa.aer.ad 1 Puff INH PRN Q4HRS PRN Symbicort 160-4.5 Mcg Inhaler (Budesonide/Formoterol Fumarate) 10.2 Gm Hfa.aer.ad 2 Puff IH BID Theophylline (Theophylline Anhydrous) 400 Mg Tablet.er 300 Mg PO BID Vitals/I & O Vital Sign - Last 24 Hours 09/16/19 09/16/19 09/16/19 09/16/19 11:00 11:23 12:00 12:00 Temp 98.8 98.8 Pulse 68 82 Resp 16 20 B/P (MAP) 163/102 (122) 163/102 (122) Pulse Ox 100 100 99 O2 Delivery Ventilator Ventilator Ventilator Mechanical Ventilator 09/16/19 09/16/19 09/16/19 09/16/19 13:00 13:37 14:00 15:00 Pulse 64 84 84 Resp 18 19 18 B/P (MAP) 160/98 (118) 183/105 (131) 183/105 (131) Pulse Ox 100 100 99 100 O2 Delivery Ventilator Ventilator Ventilator Ventilator 09/16/19 09/16/19 09/16/19 09/16/19 15:56 16:00 16:00 17:00 Temp 99.9 99.9 Pulse 77 84 Resp 16 18 B/P (MAP) 172/107 (128) 179/102 (127) Pulse Ox 99 99 99 O2 Delivery Ventilator Ventilator Mechanical Ventilator Ventilator 09/16/19 09/16/19 09/16/19 09/16/19 17:35 18:00 18:16 19:00 Pulse 86 74 83 Resp 16 16 B/P (MAP) 177/101 (126) 177/101 156/76 (102) Pulse Ox 99 97 97 O2 Delivery Ventilator Ventilator Ventilator 09/16/19 09/16/19 09/16/19 09/16/19 20:00 20:00 20:30 20:58 Temp 100.3 100.3 Pulse 92 Resp 16 16 B/P (MAP) 172/91 (118) Pulse Ox 99 99 O2 Delivery Ventilator Mechanical Ventilator Ventilator Ventilator 09/16/19 09/16/19 09/16/19 09/16/19 21:00 21:28 22:00 22:13 Pulse 74 65 Resp 16 16 16 B/P (MAP) 172/89 (116) 163/86 (111) Pulse Ox 98 99 100 O2 Delivery Ventilator Ventilator Ventilator Ventilator 09/16/19 09/16/19 09/16/19 09/17/19 23:00 23:58 23:59 00:00 Temp 99.2 99.2 Pulse 65 64 Resp 16 16 B/P (MAP) 161/85 (110) 165/91 (115) Pulse Ox 99 98 99 O2 Delivery Ventilator Ventilator Mechanical Ventilator Ventilator 09/17/19 09/17/19 09/17/19 09/17/19 01:00 01:35 02:00 03:00 Pulse 65 67 66 Resp 16 16 16 B/P (MAP) 167/90 (115) 169/89 (115) 167/91 (116) Pulse Ox 99 99 99 99 O2 Delivery Ventilator Ventilator Ventilator Ventilator 09/17/19 09/17/19 09/17/19 09/17/19 03:42 04:00 04:00 04:08 Temp 99.7 99.7 Pulse 92 65 Resp 16 B/P (MAP) 172/91 (118) 174/90 Pulse Ox 100 99 O2 Delivery Ventilator Mechanical Ventilator Ventilator 09/17/19 09/17/19 09/17/19 09/17/19 05:00 05:53 06:00 07:58 Pulse 73 71 Resp 16 16 B/P (MAP) 137/47 (77) 143/57 (85) Pulse Ox 98 100 99 100 O2 Delivery Ventilator Ventilator Ventilator Ventilator Intake and Output 09/16/19 09/16/19 09/17/19 15:00 23:00 07:00 Intake Total 100 ml 1506 ml 2927.67 ml Output Total 300 ml 805 ml 755 ml Balance -200 ml 701 ml 2172.67 ml JUANCARLOS CULP MD Sep 17, 2019 10:09
--- NOTE | 2019-09-17 10:23 | PDOC ---
PULMONARY PROGRESS NOTES Subjective PT HAD SEIZURE LIKE ACTIVITY WHEN OFF SEDATION 09/15 AC MODE SEDATED Vitals Vital Signs Date Time Temp Pulse Resp B/P (MAP) Pulse Ox O2 Delivery O2 Flow Rate FiO2 09/17/19 07:58 100 Ventilator 09/17/19 06:00 71 16 143/57 (85) 09/17/19 04:00 99.7 99.7 Lungs: Clear Cardiovascular: S1, S2 Abdomen: Soft Extremities: No Edema Skin: Warm Labs Laboratory Tests Test 09/15/19 20:20 09/16/19 06:15 09/16/19 08:00 09/16/19 13:45 White Blood Count 7.9 x10^3/uL (4.0-11.0) 6.9 x10^3/uL (4.0-11.0) Red Blood Count 2.90 x10^6/uL (4.30-5.70) 3.05 x10^6/uL (4.30-5.70) Hemoglobin 7.8 g/dL (13.0-17.5) 8.5 g/dL (13.0-17.5) Hematocrit 24.1 % (39.0-53.0) 25.7 % (39.0-53.0) Mean Corpuscular Volume 83 fL (79-100) 84 fL (79-100) Mean Corpuscular Hemoglobin 27 pg (25-35) 28 pg (25-35) Mean Corpuscular Hemoglobin Concent 33 g/dL (31-37) 33 g/dL (31-37) Red Cell Distribution Width 17.5 % (11.5-14.5) 17.4 % (11.5-14.5) Platelet Count 75 x10^3/uL (140-400) 75 x10^3/uL (140-400) Sodium Level 143 mmol/L (136-145) Potassium Level 3.7 mmol/L (3.5-5.1) Chloride Level 110 mmol/L (98-107) Carbon Dioxide Level 26 mmol/L (21-32) Anion Gap 7 (6-14) Blood Urea Nitrogen 11 mg/dL (8-26) Creatinine 0.7 mg/dL (0.7-1.3) Estimated GFR (Cockcroft-Gault) 123.7 Glucose Level 96 mg/dL (70-99) Calcium Level 7.8 mg/dL (8.5-10.1) Phosphorus Level 3.4 mg/dL (2.6-4.7) Magnesium Level 1.4 mg/dL (1.8-2.4) O2 Saturation 98 % (92-99) Arterial Blood pH 7.39 (7.35-7.45) Arterial Blood pCO2 at Patient Temp 40 mmHg (35-46) Arterial Blood pO2 at Patient Temp 112 mmHg (75-108) Arterial Blood HCO3 24 mmol/L (21-28) Arterial Blood Base Excess -1 mmol/L (-3-3) FiO2 40% vent Ammonia 26 mcmol/L (11-34) Test 09/17/19 04:00 09/17/19 08:00 White Blood Count 6.1 x10^3/uL (4.0-11.0) Red Blood Count 3.26 x10^6/uL (4.30-5.70) Hemoglobin 9.0 g/dL (13.0-17.5) Hematocrit 27.2 % (39.0-53.0) Mean Corpuscular Volume 84 fL (79-100) Mean Corpuscular Hemoglobin 28 pg (25-35) Mean Corpuscular Hemoglobin Concent 33 g/dL (31-37) Red Cell Distribution Width 17.4 % (11.5-14.5) Platelet Count 83 x10^3/uL (140-400) Neutrophils (%) (Auto) 71 % (31-73) Lymphocytes (%) (Auto) 16 % (24-48) Monocytes (%) (Auto) 10 % (0-9) Eosinophils (%) (Auto) 3 % (0-3) Basophils (%) (Auto) 1 % (0-3) Neutrophils # (Auto) 4.3 x10^3/uL (1.8-7.7) Lymphocytes # (Auto) 0.9 x10^3/uL (1.0-4.8) Monocytes # (Auto) 0.6 x10^3/uL (0.0-1.1) Eosinophils # (Auto) 0.2 x10^3/uL (0.0-0.7) Basophils # (Auto) 0.1 x10^3/uL (0.0-0.2) Sodium Level 141 mmol/L (136-145) Potassium Level 3.4 mmol/L (3.5-5.1) Chloride Level 107 mmol/L (98-107) Carbon Dioxide Level 27 mmol/L (21-32) Anion Gap 7 (6-14) Blood Urea Nitrogen 7 mg/dL (8-26) Creatinine 0.6 mg/dL (0.7-1.3) Estimated GFR (Cockcroft-Gault) 147.8 BUN/Creatinine Ratio 12 (6-20) Glucose Level 136 mg/dL (70-99) Calcium Level 7.6 mg/dL (8.5-10.1) Magnesium Level 1.7 mg/dL (1.8-2.4) Total Bilirubin 0.4 mg/dL (0.2-1.0) Aspartate Amino Transf (AST/SGOT) 82 U/L (15-37) Alanine Aminotransferase (ALT/SGPT) 105 U/L (16-63) Alkaline Phosphatase 49 U/L (46-116) Total Protein 5.0 g/dL (6.4-8.2) Albumin 2.1 g/dL (3.4-5.0) Albumin/Globulin Ratio 0.7 (1.0-1.7) O2 Saturation 98 % (92-99) Arterial Blood pH 7.43 (7.35-7.45) Arterial Blood pCO2 at Patient Temp 37 mmHg (35-46) Arterial Blood pO2 at Patient Temp 143 mmHg (75-108) Arterial Blood HCO3 24 mmol/L (21-28) Arterial Blood Base Excess 0 mmol/L (-3-3) FiO2 40 Laboratory Tests Test 09/16/19 13:45 09/17/19 04:00 09/17/19 08:00 Ammonia 26 mcmol/L (11-34) White Blood Count 6.1 x10^3/uL (4.0-11.0) Red Blood Count 3.26 x10^6/uL (4.30-5.70) Hemoglobin 9.0 g/dL (13.0-17.5) Hematocrit 27.2 % (39.0-53.0) Mean Corpuscular Volume 84 fL (79-100) Mean Corpuscular Hemoglobin 28 pg (25-35) Mean Corpuscular Hemoglobin Concent 33 g/dL (31-37) Red Cell Distribution Width 17.4 % (11.5-14.5) Platelet Count 83 x10^3/uL (140-400) Neutrophils (%) (Auto) 71 % (31-73) Lymphocytes (%) (Auto) 16 % (24-48) Monocytes (%) (Auto) 10 % (0-9) Eosinophils (%) (Auto) 3 % (0-3) Basophils (%) (Auto) 1 % (0-3) Neutrophils # (Auto) 4.3 x10^3/uL (1.8-7.7) Lymphocytes # (Auto) 0.9 x10^3/uL (1.0-4.8) Monocytes # (Auto) 0.6 x10^3/uL (0.0-1.1) Eosinophils # (Auto) 0.2 x10^3/uL (0.0-0.7) Basophils # (Auto) 0.1 x10^3/uL (0.0-0.2) Sodium Level 141 mmol/L (136-145) Potassium Level 3.4 mmol/L (3.5-5.1) Chloride Level 107 mmol/L (98-107) Carbon Dioxide Level 27 mmol/L (21-32) Anion Gap 7 (6-14) Blood Urea Nitrogen 7 mg/dL (8-26) Creatinine 0.6 mg/dL (0.7-1.3) Estimated GFR (Cockcroft-Gault) 147.8 BUN/Creatinine Ratio 12 (6-20) Glucose Level 136 mg/dL (70-99) Calcium Level 7.6 mg/dL (8.5-10.1) Magnesium Level 1.7 mg/dL (1.8-2.4) Total Bilirubin 0.4 mg/dL (0.2-1.0) Aspartate Amino Transf (AST/SGOT) 82 U/L (15-37) Alanine Aminotransferase (ALT/SGPT) 105 U/L (16-63) Alkaline Phosphatase 49 U/L (46-116) Total Protein 5.0 g/dL (6.4-8.2) Albumin 2.1 g/dL (3.4-5.0) Albumin/Globulin Ratio 0.7 (1.0-1.7) O2 Saturation 98 % (92-99) Arterial Blood pH 7.43 (7.35-7.45) Arterial Blood pCO2 at Patient Temp 37 mmHg (35-46) Arterial Blood pO2 at Patient Temp 143 mmHg (75-108) Arterial Blood HCO3 24 mmol/L (21-28) Arterial Blood Base Excess 0 mmol/L (-3-3) FiO2 40 Medications Active Scripts Medications Dose Route/Sig Max Daily Dose Days Date Category Amlodipine Besylate 5 Mg Tablet 5 Mg PO DAILY 07/08/19 Reported Protonix (Pantoprazole Sodium) 40 Mg Tablet.dr 40 Mg PO DAILYAC PRN 30 06/23/19 Rx Proair Hfa Inhaler (Albuterol Sulfate) 8.5 Gm Hfa.aer.ad 1 Puff INH PRN Q4HRS PRN 03/02/18 Reported Symbicort 160-4.5 Mcg Inhaler (Budesonide/Formoterol Fumarate) 10.2 Gm Hfa.aer.ad 2 Puff IH BID 08/13/16 Reported Theophylline (Theophylline Anhydrous) 400 Mg Tablet.er 300 Mg PO BID 08/20/13 Reported Impression . 1. Acute respiratory failure secondary to acute gastrointestinal bleed along with hepatic encephalopathy. 2. History of alcoholism, presented with acute gastrointestinal bleed. 3. Status post EGD, was found to have a duodenal ulcer in the first and second portion of the duodenum with a visible vessel. Status post epinephrine injection. 4. Acute blood loss anemia. 5. Mild coagulopathy along with thrombocytopenia. 6. Susped ETOH withdrawl seizures Plan . 1. Continue present assist control mode. DC SEDATION AGAIN AND CONSIDER CPAP IF TOLERATES 2. Watch for stability of the hemoglobin. 4. Monitor chest x-ray. 5. Monitor hemoglobin. 6. Follow GI recommendations. 7. PPI. 8. SCDs. 9. Discussed with RN and RT. 10.empiric abx KARLA LOVING MD Sep 17, 2019 10:23
[2019-09-17 12:30] LABS: BASE EXCESS ABG 1 mmol/L (-3-3); HCO3 ABG 25 mmol/L (21-28); PCO2 ABG 38 mmHg (35-46); PO2 ABG 81 mmHg (75-108); SAT O2 ABG 95 % (92-99)
[2019-09-17] MEDS ORDERED: MAGNESIUM SULFATE 1GM 100 ML IV ONE (12:45)
[2019-09-17 12:57] LABS: FIO2 ABG 35
[2019-09-17] MEDS: AA 4.25 %/CALCIUM/LYTES/D5W 1,000 ML IV SCH (13:27)
[2019-09-17] MEDS ORDERED: ALBUTEROL SULFATE 2.5 MG/3 ML NEBU. NEB PRN (15:45)
[2019-09-17] MEDS: fentaNYL PF VIAL 100 MCG/2 ML VIAL IVP PRN (17:23)
[2019-09-17] MEDS: BUDESONIDE 0.5 MG/2 ML NEBU. NEB SCH (20:05)
[2019-09-17] MEDS: ALBUTEROL SULFATE 2.5 MG/3 ML NEBU. NEB SCH (20:05)
[2019-09-18] VITALS (24 sets, daily range): BP systolic 118–195; BP diastolic 65–107
[2019-09-18] MEDS: ALBUTEROL SULFATE 2.5 MG/3 ML NEBU. NEB SCH ×5 (00:02→23:45)
[2019-09-18] MEDS: IV NORMAL SALINE 1000ML BAG 1,000 ML IV SCH ×2 (00:18→07:52)
[2019-09-18] MEDS: hydrALAZINE 20 MG/ML VIAL. IVP PRN ×4 (01:08→16:29)
[2019-09-18] MEDS: AA 4.25 %/CALCIUM/LYTES/D5W 1,000 ML IV SCH ×3 (01:08→21:49)
[2019-09-18] MEDS: BUDESONIDE 0.5 MG/2 ML NEBU. NEB SCH ×2 (07:55→19:48)
[2019-09-18 08:49] LABS: BASO % 1 % (0-3); EOS # 0.1 x10^3/uL (0.0-0.7); EOS % 3 % (0-3); HEMATOCRIT 29.3 % (39.0-53.0); HEMOGLOBIN 9.7 g/dL (13.0-17.5); LYMPH # 0.5 x10^3/uL (1.0-4.8); LYMPH % 9 % (24-48); MEAN CORPUSCULAR HEMOGLOBIN 27 pg (25-35); MEAN CORPUSCULAR HGB CONC 33 g/dL (31-37); MEAN CORPUSCULAR VOLUME 82 fL (79-100); MONO # 0.7 x10^3/uL (0.0-1.1); MONO % 12 % (0-9); NEUT # 4.3 x10^3/uL (1.8-7.7); NEUT % 76 % (31-73); PLATELET COUNT 132 x10^3/uL (140-400); RED BLOOD COUNT 3.56 x10^6/uL (4.30-5.70); RED CELL DISTRIBUTION WIDTH 17.6 % (11.5-14.5); WHITE BLOOD COUNT 5.7 x10^3/uL (4.0-11.0)
[2019-09-18 08:58] LABS: CALCIUM 8.1 mg/dL (8.5-10.1); CREATININE 0.6 mg/dL (0.7-1.3); GFR 147.8; MAGNESIUM 1.7 mg/dL (1.8-2.4); POTASSIUM 3.5 mmol/L (3.5-5.1)
[2019-09-18] MEDS: levETIRAcetam 500 MG in IV DEXTROSE 5% 100ML 100 ML IV SCH ×2 (09:14→20:33)
[2019-09-18] MEDS: PANTOPRAZOLE IV PUSH 40 MG VIAL. IVP SCH ×2 (09:21→20:33)
[2019-09-18] MEDS: MULTIVIT INFUSN,ADULT 4,VIT K 10 ML, THIAMINE INJ 100 MG, FOLIC ACID INJ 1 MG in IV NOR... IV SCH (09:37)
[2019-09-18] MEDS: MAGNESIUM SULFATE 4GM 100 ML IV SCH (09:39)
--- NOTE | 2019-09-18 09:59 | PDOC ---
PULMONARY PROGRESS NOTES Subjective Pt. is extubated on room air, no SOA, no overnight concerns from nursing Vitals Vital Signs Date Time Temp Pulse Resp B/P (MAP) Pulse Ox O2 Delivery O2 Flow Rate FiO2 09/18/19 09:53 63 172/104 (126) 95 Room Air 09/18/19 07:09 98.0 20 98.0 09/18/19 06:00 4.0 General: Alert Lungs: Clear Cardiovascular: S1, S2 Abdomen: Soft Extremities: No Edema Skin: Warm Labs Laboratory Tests Test 09/16/19 13:45 09/17/19 04:00 09/17/19 08:00 09/17/19 12:30 Ammonia 26 mcmol/L (11-34) White Blood Count 6.1 x10^3/uL (4.0-11.0) Red Blood Count 3.26 x10^6/uL (4.30-5.70) Hemoglobin 9.0 g/dL (13.0-17.5) Hematocrit 27.2 % (39.0-53.0) Mean Corpuscular Volume 84 fL (79-100) Mean Corpuscular Hemoglobin 28 pg (25-35) Mean Corpuscular Hemoglobin Concent 33 g/dL (31-37) Red Cell Distribution Width 17.4 % (11.5-14.5) Platelet Count 83 x10^3/uL (140-400) Neutrophils (%) (Auto) 71 % (31-73) Lymphocytes (%) (Auto) 16 % (24-48) Monocytes (%) (Auto) 10 % (0-9) Eosinophils (%) (Auto) 3 % (0-3) Basophils (%) (Auto) 1 % (0-3) Neutrophils # (Auto) 4.3 x10^3/uL (1.8-7.7) Lymphocytes # (Auto) 0.9 x10^3/uL (1.0-4.8) Monocytes # (Auto) 0.6 x10^3/uL (0.0-1.1) Eosinophils # (Auto) 0.2 x10^3/uL (0.0-0.7) Basophils # (Auto) 0.1 x10^3/uL (0.0-0.2) Sodium Level 141 mmol/L (136-145) Potassium Level 3.4 mmol/L (3.5-5.1) Chloride Level 107 mmol/L (98-107) Carbon Dioxide Level 27 mmol/L (21-32) Anion Gap 7 (6-14) Blood Urea Nitrogen 7 mg/dL (8-26) Creatinine 0.6 mg/dL (0.7-1.3) Estimated GFR (Cockcroft-Gault) 147.8 BUN/Creatinine Ratio 12 (6-20) Glucose Level 136 mg/dL (70-99) Calcium Level 7.6 mg/dL (8.5-10.1) Magnesium Level 1.7 mg/dL (1.8-2.4) Total Bilirubin 0.4 mg/dL (0.2-1.0) Aspartate Amino Transf (AST/SGOT) 82 U/L (15-37) Alanine Aminotransferase (ALT/SGPT) 105 U/L (16-63) Alkaline Phosphatase 49 U/L (46-116) Total Protein 5.0 g/dL (6.4-8.2) Albumin 2.1 g/dL (3.4-5.0) Albumin/Globulin Ratio 0.7 (1.0-1.7) O2 Saturation 98 % (92-99) 95 % (92-99) Arterial Blood pH 7.43 (7.35-7.45) 7.44 (7.35-7.45) Arterial Blood pCO2 at Patient Temp 37 mmHg (35-46) 38 mmHg (35-46) Arterial Blood pO2 at Patient Temp 143 mmHg (75-108) 81 mmHg (75-108) Arterial Blood HCO3 24 mmol/L (21-28) 25 mmol/L (21-28) Arterial Blood Base Excess 0 mmol/L (-3-3) 1 mmol/L (-3-3) FiO2 40 35 Test 09/18/19 08:40 White Blood Count 5.7 x10^3/uL (4.0-11.0) Red Blood Count 3.56 x10^6/uL (4.30-5.70) Hemoglobin 9.7 g/dL (13.0-17.5) Hematocrit 29.3 % (39.0-53.0) Mean Corpuscular Volume 82 fL (79-100) Mean Corpuscular Hemoglobin 27 pg (25-35) Mean Corpuscular Hemoglobin Concent 33 g/dL (31-37) Red Cell Distribution Width 17.6 % (11.5-14.5) Platelet Count 132 x10^3/uL (140-400) Neutrophils (%) (Auto) 76 % (31-73) Lymphocytes (%) (Auto) 9 % (24-48) Monocytes (%) (Auto) 12 % (0-9) Eosinophils (%) (Auto) 3 % (0-3) Basophils (%) (Auto) 1 % (0-3) Neutrophils # (Auto) 4.3 x10^3/uL (1.8-7.7) Lymphocytes # (Auto) 0.5 x10^3/uL (1.0-4.8) Monocytes # (Auto) 0.7 x10^3/uL (0.0-1.1) Eosinophils # (Auto) 0.1 x10^3/uL (0.0-0.7) Basophils # (Auto) 0.0 x10^3/uL (0.0-0.2) Sodium Level 140 mmol/L (136-145) Potassium Level 3.5 mmol/L (3.5-5.1) Chloride Level 103 mmol/L (98-107) Carbon Dioxide Level 28 mmol/L (21-32) Anion Gap 9 (6-14) Blood Urea Nitrogen 6 mg/dL (8-26) Creatinine 0.6 mg/dL (0.7-1.3) Estimated GFR (Cockcroft-Gault) 147.8 Glucose Level 132 mg/dL (70-99) Calcium Level 8.1 mg/dL (8.5-10.1) Magnesium Level 1.7 mg/dL (1.8-2.4) Laboratory Tests Test 09/17/19 12:30 09/18/19 08:40 O2 Saturation 95 % (92-99) Arterial Blood pH 7.44 (7.35-7.45) Arterial Blood pCO2 at Patient Temp 38 mmHg (35-46) Arterial Blood pO2 at Patient Temp 81 mmHg (75-108) Arterial Blood HCO3 25 mmol/L (21-28) Arterial Blood Base Excess 1 mmol/L (-3-3) FiO2 35 White Blood Count 5.7 x10^3/uL (4.0-11.0) Red Blood Count 3.56 x10^6/uL (4.30-5.70) Hemoglobin 9.7 g/dL (13.0-17.5) Hematocrit 29.3 % (39.0-53.0) Mean Corpuscular Volume 82 fL (79-100) Mean Corpuscular Hemoglobin 27 pg (25-35) Mean Corpuscular Hemoglobin Concent 33 g/dL (31-37) Red Cell Distribution Width 17.6 % (11.5-14.5) Platelet Count 132 x10^3/uL (140-400) Neutrophils (%) (Auto) 76 % (31-73) Lymphocytes (%) (Auto) 9 % (24-48) Monocytes (%) (Auto) 12 % (0-9) Eosinophils (%) (Auto) 3 % (0-3) Basophils (%) (Auto) 1 % (0-3) Neutrophils # (Auto) 4.3 x10^3/uL (1.8-7.7) Lymphocytes # (Auto) 0.5 x10^3/uL (1.0-4.8) Monocytes # (Auto) 0.7 x10^3/uL (0.0-1.1) Eosinophils # (Auto) 0.1 x10^3/uL (0.0-0.7) Basophils # (Auto) 0.0 x10^3/uL (0.0-0.2) Sodium Level 140 mmol/L (136-145) Potassium Level 3.5 mmol/L (3.5-5.1) Chloride Level 103 mmol/L (98-107) Carbon Dioxide Level 28 mmol/L (21-32) Anion Gap 9 (6-14) Blood Urea Nitrogen 6 mg/dL (8-26) Creatinine 0.6 mg/dL (0.7-1.3) Estimated GFR (Cockcroft-Gault) 147.8 Glucose Level 132 mg/dL (70-99) Calcium Level 8.1 mg/dL (8.5-10.1) Magnesium Level 1.7 mg/dL (1.8-2.4) Medications Active Scripts Medications Dose Route/Sig Max Daily Dose Days Date Category Amlodipine Besylate 5 Mg Tablet 5 Mg PO DAILY 07/08/19 Reported Protonix (Pantoprazole Sodium) 40 Mg Tablet.dr 40 Mg PO DAILYAC PRN 30 06/23/19 Rx Proair Hfa Inhaler (Albuterol Sulfate) 8.5 Gm Hfa.aer.ad 1 Puff INH PRN Q4HRS PRN 03/02/18 Reported Symbicort 160-4.5 Mcg Inhaler (Budesonide/Formoterol Fumarate) 10.2 Gm Hfa.aer.ad 2 Puff IH BID 08/13/16 Reported Theophylline (Theophylline Anhydrous) 400 Mg Tablet.er 300 Mg PO BID 08/20/13 Reported Impression . 1. Acute respiratory failure secondary to acute gastrointestinal bleed along wi th hepatic encephalopathy. 2. History of alcoholism, presented with acute gastrointestinal bleed. 3. Status post EGD, was found to have a duodenal ulcer in the first and second portion of the duodenum with a visible vessel. Status post epinephrine injec tion. 4. Acute blood loss anemia. 5. Mild coagulopathy along with thrombocytopenia. 6. Susped ETOH withdrawl seizures Plan . 1. continue supplemental oxygen PRN 2. Watch for stability of the hemoglobin. 4. Monitor chest x-ray. 5. Monitor hemoglobin. 6. Follow GI recommendations. 7. PPI. 8. SCDs. 9. empiric abx Stable from pulmonary stand point, we will S/O at this time Please call with questions or concerns KARLA LOVING MD Sep 18, 2019 09:59
--- NOTE | 2019-09-18 10:27 | PDOC ---
PROGRESS NOTES History of Present Illness History of Present Illness VTE Prophylaxis Ordered VTE Prophylaxis Devices: Yes VTE Pharmacological Prophylaxi: Contraindicated Assessment/Plan Assessment/Plan IMPRESSION: 1. acute UGI BLEED 2. severe diffuse hepatic steatosis. 3. Erosive esophagitis, epinephrine injection duodenal ulcer in the first and second portions of duodenum with a visible vessel, status post epinephrine injection. 4. polysubstance abuse, ALCOHOL, COCAINE, THC 5. ELECTROLYTE IMBALANCE 6. MALIGNANT HTN PLAN ADMIT ICU status post epinephrine injection second portions of duodenum with a visible GI CONSULTED IN ER TRANSFUSED PRN alcohol withdrawal protocol SCD'S pat consult VENT SUPPORT D/C PROTONIX DRIP replete lytes IV HYDRALAZINE 10-20 MG PRN BP SUPPORT 09/16 EXTUBATED 36 min cc time Vitals Vitals Vital Signs Date Time Temp Pulse Resp B/P (MAP) Pulse Ox O2 Delivery O2 Flow Rate FiO2 09/18/19 09:53 63 172/104 (126) 95 Room Air 09/18/19 07:09 98.0 20 98.0 09/18/19 06:00 4.0 Physical Exam Physical Exam SEDATED ON VENT General: No acute distress Heart: Regular rate, Normal S1, Normal S2 Lungs: Clear Abdomen: Normal bowel sounds, Soft, No tenderness Extremities: No cyanosis, No edema Labs LABS Laboratory Tests Test 09/17/19 12:30 09/18/19 08:40 O2 Saturation 95 % (92-99) Arterial Blood pH 7.44 (7.35-7.45) Arterial Blood pCO2 at Patient Temp 38 mmHg (35-46) Arterial Blood pO2 at Patient Temp 81 mmHg (75-108) Arterial Blood HCO3 25 mmol/L (21-28) Arterial Blood Base Excess 1 mmol/L (-3-3) FiO2 35 White Blood Count 5.7 x10^3/uL (4.0-11.0) Red Blood Count 3.56 x10^6/uL (4.30-5.70) Hemoglobin 9.7 g/dL (13.0-17.5) Hematocrit 29.3 % (39.0-53.0) Mean Corpuscular Volume 82 fL (79-100) Mean Corpuscular Hemoglobin 27 pg (25-35) Mean Corpuscular Hemoglobin Concent 33 g/dL (31-37) Red Cell Distribution Width 17.6 % (11.5-14.5) Platelet Count 132 x10^3/uL (140-400) Neutrophils (%) (Auto) 76 % (31-73) Lymphocytes (%) (Auto) 9 % (24-48) Monocytes (%) (Auto) 12 % (0-9) Eosinophils (%) (Auto) 3 % (0-3) Basophils (%) (Auto) 1 % (0-3) Neutrophils # (Auto) 4.3 x10^3/uL (1.8-7.7) Lymphocytes # (Auto) 0.5 x10^3/uL (1.0-4.8) Monocytes # (Auto) 0.7 x10^3/uL (0.0-1.1) Eosinophils # (Auto) 0.1 x10^3/uL (0.0-0.7) Basophils # (Auto) 0.0 x10^3/uL (0.0-0.2) Sodium Level 140 mmol/L (136-145) Potassium Level 3.5 mmol/L (3.5-5.1) Chloride Level 103 mmol/L (98-107) Carbon Dioxide Level 28 mmol/L (21-32) Anion Gap 9 (6-14) Blood Urea Nitrogen 6 mg/dL (8-26) Creatinine 0.6 mg/dL (0.7-1.3) Estimated GFR (Cockcroft-Gault) 147.8 Glucose Level 132 mg/dL (70-99) Calcium Level 8.1 mg/dL (8.5-10.1) Magnesium Level 1.7 mg/dL (1.8-2.4) Assessment and Plan Assessmemt and Plan Problems Medical Problems: (1) GI bleed Status: Acute Identification/Chief Complaint Chief Complaint SEEN IN ER WITH UGI BLEEDING middle-aged white male who drinks a half gallon of vodka a day We admitted him at least 4 times in the LAST 2 months Once again he presents with alcohol withdrawal and abdominal pain Has alcoholic pancreatitis , UGI BLEEDING, Severe HGB =4.4 has been binge drinking for the last 5 or 6 months but mother states is gotten really bad over the last month and he'll try to stop and he goes back to drinking. . PRESENTED WITH tremors, nausea, vomiting coffee ground blood, LOC for the last 3 days. Denies hearing voices are seen things aren't there Past Medical History Past Medical History Past Medical History Past Medical History Past Medical History: Asthma, Pancreatitis Past Surgical History: Tonsillectomy Additional Past Surgical Histo: adnoidectomy, left eye Smoking Status: Never Smoker Alcohol Use: Heavy Drug Use: None fhx alcohol abuse Cardiovascular: CAD, HTN Pulmonary: Asthma, Other CENTRAL NERVOUS SYSTEM: Seizure GI: GERD, Gastritis Heme/Onc: Other Psych: Anxiety, Addictions, Depression Musculoskeletal: low back pain Rheumatologic: Gout Infectious disease: HIV Endocrine: Diabetes Past Surgical History Past Surgical History: No pertinent history Family History Family History: Alcohol Abuse, Hypertension Social History Smoke: <1 pack per day ALCOHOL: heavy Drugs: Cocaine, Marijuana Comment Review of Relevant I have reviewed the following items wali (where applicable) has been applied. Labs Laboratory Tests Test 09/16/19 13:45 09/17/19 04:00 09/17/19 08:00 09/17/19 12:30 Ammonia 26 mcmol/L (11-34) White Blood Count 6.1 x10^3/uL (4.0-11.0) Red Blood Count 3.26 x10^6/uL (4.30-5.70) Hemoglobin 9.0 g/dL (13.0-17.5) Hematocrit 27.2 % (39.0-53.0) Mean Corpuscular Volume 84 fL (79-100) Mean Corpuscular Hemoglobin 28 pg (25-35) Mean Corpuscular Hemoglobin Concent 33 g/dL (31-37) Red Cell Distribution Width 17.4 % (11.5-14.5) Platelet Count 83 x10^3/uL (140-400) Neutrophils (%) (Auto) 71 % (31-73) Lymphocytes (%) (Auto) 16 % (24-48) Monocytes (%) (Auto) 10 % (0-9) Eosinophils (%) (Auto) 3 % (0-3) Basophils (%) (Auto) 1 % (0-3) Neutrophils # (Auto) 4.3 x10^3/uL (1.8-7.7) Lymphocytes # (Auto) 0.9 x10^3/uL (1.0-4.8) Monocytes # (Auto) 0.6 x10^3/uL (0.0-1.1) Eosinophils # (Auto) 0.2 x10^3/uL (0.0-0.7) Basophils # (Auto) 0.1 x10^3/uL (0.0-0.2) Sodium Level 141 mmol/L (136-145) Potassium Level 3.4 mmol/L (3.5-5.1) Chloride Level 107 mmol/L (98-107) Carbon Dioxide Level 27 mmol/L (21-32) Anion Gap 7 (6-14) Blood Urea Nitrogen 7 mg/dL (8-26) Creatinine 0.6 mg/dL (0.7-1.3) Estimated GFR (Cockcroft-Gault) 147.8 BUN/Creatinine Ratio 12 (6-20) Glucose Level 136 mg/dL (70-99) Calcium Level 7.6 mg/dL (8.5-10.1) Magnesium Level 1.7 mg/dL (1.8-2.4) Total Bilirubin 0.4 mg/dL (0.2-1.0) Aspartate Amino Transf (AST/SGOT) 82 U/L (15-37) Alanine Aminotransferase (ALT/SGPT) 105 U/L (16-63) Alkaline Phosphatase 49 U/L (46-116) Total Protein 5.0 g/dL (6.4-8.2) Albumin 2.1 g/dL (3.4-5.0) Albumin/Globulin Ratio 0.7 (1.0-1.7) O2 Saturation 98 % (92-99) 95 % (92-99) Arterial Blood pH 7.43 (7.35-7.45) 7.44 (7.35-7.45) Arterial Blood pCO2 at Patient Temp 37 mmHg (35-46) 38 mmHg (35-46) Arterial Blood pO2 at Patient Temp 143 mmHg (75-108) 81 mmHg (75-108) Arterial Blood HCO3 24 mmol/L (21-28) 25 mmol/L (21-28) Arterial Blood Base Excess 0 mmol/L (-3-3) 1 mmol/L (-3-3) FiO2 40 35 Test 09/18/19 08:40 White Blood Count 5.7 x10^3/uL (4.0-11.0) Red Blood Count 3.56 x10^6/uL (4.30-5.70) Hemoglobin 9.7 g/dL (13.0-17.5) Hematocrit 29.3 % (39.0-53.0) Mean Corpuscular Volume 82 fL (79-100) Mean Corpuscular Hemoglobin 27 pg (25-35) Mean Corpuscular Hemoglobin Concent 33 g/dL (31-37) Red Cell Distribution Width 17.6 % (11.5-14.5) Platelet Count 132 x10^3/uL (140-400) Neutrophils (%) (Auto) 76 % (31-73) Lymphocytes (%) (Auto) 9 % (24-48) Monocytes (%) (Auto) 12 % (0-9) Eosinophils (%) (Auto) 3 % (0-3) Basophils (%) (Auto) 1 % (0-3) Neutrophils # (Auto) 4.3 x10^3/uL (1.8-7.7) Lymphocytes # (Auto) 0.5 x10^3/uL (1.0-4.8) Monocytes # (Auto) 0.7 x10^3/uL (0.0-1.1) Eosinophils # (Auto) 0.1 x10^3/uL (0.0-0.7) Basophils # (Auto) 0.0 x10^3/uL (0.0-0.2) Sodium Level 140 mmol/L (136-145) Potassium Level 3.5 mmol/L (3.5-5.1) Chloride Level 103 mmol/L (98-107) Carbon Dioxide Level 28 mmol/L (21-32) Anion Gap 9 (6-14) Blood Urea Nitrogen 6 mg/dL (8-26) Creatinine 0.6 mg/dL (0.7-1.3) Estimated GFR (Cockcroft-Gault) 147.8 Glucose Level 132 mg/dL (70-99) Calcium Level 8.1 mg/dL (8.5-10.1) Magnesium Level 1.7 mg/dL (1.8-2.4) Laboratory Tests Test 09/17/19 12:30 09/18/19 08:40 O2 Saturation 95 % (92-99) Arterial Blood pH 7.44 (7.35-7.45) Arterial Blood pCO2 at Patient Temp 38 mmHg (35-46) Arterial Blood pO2 at Patient Temp 81 mmHg (75-108) Arterial Blood HCO3 25 mmol/L (21-28) Arterial Blood Base Excess 1 mmol/L (-3-3) FiO2 35 White Blood Count 5.7 x10^3/uL (4.0-11.0) Red Blood Count 3.56 x10^6/uL (4.30-5.70) Hemoglobin 9.7 g/dL (13.0-17.5) Hematocrit 29.3 % (39.0-53.0) Mean Corpuscular Volume 82 fL (79-100) Mean Corpuscular Hemoglobin 27 pg (25-35) Mean Corpuscular Hemoglobin Concent 33 g/dL (31-37) Red Cell Distribution Width 17.6 % (11.5-14.5) Platelet Count 132 x10^3/uL (140-400) Neutrophils (%) (Auto) 76 % (31-73) Lymphocytes (%) (Auto) 9 % (24-48) Monocytes (%) (Auto) 12 % (0-9) Eosinophils (%) (Auto) 3 % (0-3) Basophils (%) (Auto) 1 % (0-3) Neutrophils # (Auto) 4.3 x10^3/uL (1.8-7.7) Lymphocytes # (Auto) 0.5 x10^3/uL (1.0-4.8) Monocytes # (Auto) 0.7 x10^3/uL (0.0-1.1) Eosinophils # (Auto) 0.1 x10^3/uL (0.0-0.7) Basophils # (Auto) 0.0 x10^3/uL (0.0-0.2) Sodium Level 140 mmol/L (136-145) Potassium Level 3.5 mmol/L (3.5-5.1) Chloride Level 103 mmol/L (98-107) Carbon Dioxide Level 28 mmol/L (21-32) Anion Gap 9 (6-14) Blood Urea Nitrogen 6 mg/dL (8-26) Creatinine 0.6 mg/dL (0.7-1.3) Estimated GFR (Cockcroft-Gault) 147.8 Glucose Level 132 mg/dL (70-99) Calcium Level 8.1 mg/dL (8.5-10.1) Magnesium Level 1.7 mg/dL (1.8-2.4) Medications Current Medications Ondansetron HCl (Zofran) 4 mg STK-MED ONCE .ROUTE ; Start 09/14/19 at 17:54; Stop 09/14/19 at 17:54; Status DC Lorazepam (Ativan Inj) 2 mg STK-MED ONCE .ROUTE ; Start 09/14/19 at 17:55; Stop 09/14/19 at 17:55; Status DC Lorazepam (Ativan Inj) 2 mg 1X ONCE IVP Last administered on 09/14/19at 18:05; Start 09/14/19 at 18:00; Stop 09/14/19 at 18:09; Status DC Ondansetron HCl (Zofran) 4 mg 1X ONCE IVP Last administered on 09/14/19at 18:04; Start 09/14/19 at 18:00; Stop 09/14/19 at 18:09; Status DC Pantoprazole Sodium (PROTONIX VIAL for IV PUSH) 40 mg 1X ONCE IVP Last administered on 09/14/19at 18:43; Start 09/14/19 at 18:00; Stop 09/14/19 at 18:09; Status DC Sodium Chloride 1,000 ml @ 1,000 mls/hr 1X ONCE IV Last administered on 09/14/19 19:10; Start 09/14/19 at 18:00; Stop 09/14/19 at 19:00; Status DC Multivitamins 10 ml/Thiamine HCl 100 mg/Folic Acid 1 mg/Sodium Chloride 1,011.2 ml @ 100 mls/ hr DAILY IV Last administered on 09/18/19at 09:37; Start 09/14/19 at 18:30; Stop 09/18/19 at 19:07 Lorazepam (Ativan Inj) 2 mg PRN Q1HR PRN IV For CIWA 8-14 Last administered on 09/18/19at 05:33; Start 09/14/19 at 18:30 Lorazepam (Ativan Inj) 4 mg PRN Q1HR PRN IV For CIWA 15 or greater Last administered on 09/17/19at 14:08; Start 09/14/19 at 18:30 Pantoprazole Sodium 80 mg/ Sodium Chloride 100 ml @ 10 mls/hr 1X ONCE IV Last administered on 09/14/19at 18:44; Start 09/14/19 at 18:30; Stop 09/15/19 at 04:29; Status DC Iohexol (Omnipaque 300 Mg/ml) 75 ml 1X ONCE IV ; Start 09/14/19 at 19:00; Stop 09/14/19 at 19:01; Status DC Info (CONTRAST GIVEN -- Rx MONITORING) 1 each PRN DAILY PRN MC SEE COMMENTS; Start 09/14/19 at 19:00; Stop 09/16/19 at 18:59; Status DC Ondansetron HCl (Zofran) 4 mg PRN Q8HRS PRN IV NAUSEA/VOMITING; Start 09/14/19 at 19:30; Stop 09/15/19 at 19:29; Status DC Sodium Chloride 1,000 ml @ 125 mls/hr Q8H IV Last administered on 09/15/19at 15:39; Start 09/14/19 at 19:19; Stop 09/15/19 at 19:18; Status DC Etomidate (Amidate) 20 mg STK-MED ONCE IV ; Start 09/14/19 at 21:22; Stop 09/14/19 at 21:22; Status DC Lidocaine HCl (Lidocaine Pf 2% Vial) 5 ml STK-MED ONCE .ROUTE ; Start 09/14/19 at 21:22; Stop 09/14/19 at 21:22; Status DC Rocuronium Lane (Zemuron) 50 mg STK-MED ONCE .ROUTE ; Start 09/14/19 at 21:23; Stop 09/14/19 at 21:23; Status DC Phenylephrine HCl (PHENYLEPHRINE in 0.9% NACL PF) 1 mg STK-MED ONCE IV ; Start 09/14/19 at 21:24; Stop 09/14/19 at 21:24; Status DC Propofol 100 ml @ 0 mls/hr CONT PRN IV SEE PROTOCOL Last administered on 09/17/19at 03:32; Start 09/14/19 at 22:30 Fentanyl Citrate (Fentanyl 2ml Vial) 25 mcg PRN Q1HR PRN IV SEE COMMENTS; Start 09/14/19 at 22:30; Stop 09/15/19 at 06:26; Status DC Fentanyl Citrate (Fentanyl 2ml Vial) 50 mcg PRN Q1HR PRN IV SEE COMMENTS; Start 09/14/19 at 22:30; Stop 09/15/19 at 06:26; Status DC Epinephrine HCl (EPINEPHrine SYRINGE) 1 mg STK-MED ONCE .ROUTE ; Start 09/14/19 at 23:19; Stop 09/14/19 at 23:20; Status DC Pantoprazole Sodium (PROTONIX VIAL for IV PUSH) 40 mg BID IVP Last administered on 09/18/19at 09:21; Start 09/15/19 at 09:00 Epinephrine HCl (EPINEPHrine SYRINGE) 1 mg STK-MED ONCE IV Last administered on 09/14/19at 23:00; Start 09/14/19 at 23:00; Stop 09/14/19 at 23:29; Status DC Fentanyl Citrate 30 ml @ 0 mls/hr CONT PRN IV SEE PROTOCOL Last administered on 09/16/19at 20:58; Start 09/14/19 at 23:45; Stop 09/17/19 at 16:28; Status DC Midazolam HCl 50 mg/Sodium Chloride 50 ml @ 0 mls/hr CONT PRN IV SEE PROTOCOL Last administered on 09/15/19at 22:10; Start 09/14/19 at 23:45; Stop 09/17/19 at 16:28; Status DC Sodium Bicarbonate (Sodium Bicarb Adult 8.4% Syr) 50 meq 1X ONCE IV Last administered on 09/15/19at 01:25; Start 09/15/19 at 01:00; Stop 09/15/19 at 01:01; Status DC Sodium Chloride 1,000 ml @ 50 mls/hr Q20H IV Last administered on 09/18/19at 00:18; Start 09/16/19 at 02:00 Dexmedetomidine HCl 400 mcg/ Sodium Chloride 100 ml @ 0 mls/hr CONT PRN IV AGITATION Last administered on 09/17/19at 15:47; Start 09/16/19 at 08:30 Sodium Chloride 500 ml @ 500 mls/hr 1X PRN PRN IV HYPOTENTION; Start 09/16/19 at 08:30 Atropine Sulfate (ATROPINE 0.5mg SYRINGE) 0.5 mg PRN Q5MIN PRN IV SEE COMMENTS; Start 09/16/19 at 08:30 Amino Acids/ Glycerin/ Electrolytes 1,000 ml @ 80 mls/hr [id number] IV ; Start 09/16/19 at 10:00; Status UNV Ceftriaxone Sodium (Rocephin) 1 gm Q24H IVP Last administered on 09/17/19at 09:08; Start 09/16/19 at 11:00 Amino Acids/ Electrolytes/ Dextrose 1,000 ml @ 80 mls/hr [id number] IV Last administered on 09/18/19at 01:08; Start 09/16/19 at 10:15 Magnesium Sulfate/ Dextrose 100 ml @ 100 mls/hr 1X ONCE IV Last administered on 09/16/19at 12:10; Start 09/16/19 at 11:45; Stop 09/16/19 at 12:44; Status DC Potassium Chloride/Water 100 ml @ 100 mls/hr Q1H IV ; Start 09/16/19 at 14:15; Stop 09/16/19 at 14:16; Status DC Potassium Chloride/Water 100 ml @ 100 mls/hr Q1H IV ; Start 09/16/19 at 14:15; Stop 09/16/19 at 14:17; Status DC Magnesium Sulfate 100 ml @ 50 mls/hr DAILY IV Last administered on 09/18/19at 09:39; Start 09/17/19 at 09:00; Stop 09/20/19 at 08:59 Sodium Phosphate 15 mmol/Sodium Chloride 255 ml @ 62.5 mls/hr PRN 1X PRN IV SEE COMMENTS; Start 09/16/19 at 14:15 Sodium Phosphate 15 mmol/Sodium Chloride 255 ml @ 62.5 mls/hr PRN 1X PRN IV SEE COMMENTS; Start 09/16/19 at 14:15 Potassium Chloride/Water 100 ml @ 100 mls/hr PRN Q1HR PRN IV SEE COMMENTS; Start 09/16/19 at 14:30 Potassium Chloride/Water 100 ml @ 100 mls/hr PRN Q1HR PRN IV SEE COMMENTS; Start 09/16/19 at 14:30 Levetiracetam 500 mg/Dextrose 105 ml @ 420 mls/hr Q12HR IV Last administered on 09/18/19at 09:14; Start 09/16/19 at 21:00 Hydralazine HCl (Apresoline Inj) 10 mg PRN Q4HRS PRN IVP ELEVATED BP, SEE COMMENTS Last administered on 09/18/19at 07:14; Start 09/16/19 at 18:00 Magnesium Sulfate/ Dextrose 100 ml @ 100 mls/hr 1X ONCE IV ; Start 09/17/19 at 12:45; Stop 09/17/19 at 13:03; Status DC Albuterol Sulfate (Ventolin Neb Soln) 2.5 mg PRN Q6HRS PRN NEB SHORTNESS OF BREATH; Start 09/17/19 at 15:45 Budesonide (Pulmicort) 0.5 mg RTBID NEB Last administered on 09/18/19at 07:55; Start 09/17/19 at 20:00 Albuterol Sulfate (Ventolin Neb Soln) 2.5 mg Q6HRS NEB Last administered on 09/18/19at 07:55; Start 09/17/19 at 18:00 Fentanyl Citrate (Fentanyl 2ml Vial) 25 mcg PRN Q3HRS PRN IVP PAIN Last administered on 09/17/19at 17:23; Start 09/17/19 at 17:00 Active Scripts Active Protonix (Pantoprazole Sodium) 40 Mg Tablet.dr 40 Mg PO DAILYAC PRN 30 Days Reported Amlodipine Besylate 5 Mg Tablet 5 Mg PO DAILY Proair Hfa Inhaler (Albuterol Sulfate) 8.5 Gm Hfa.aer.ad 1 Puff INH PRN Q4HRS PRN Symbicort 160-4.5 Mcg Inhaler (Budesonide/Formoterol Fumarate) 10.2 Gm Hfa.aer.ad 2 Puff IH BID Theophylline (Theophylline Anhydrous) 400 Mg Tablet.er 300 Mg PO BID Vitals/I & O Vital Sign - Last 24 Hours 09/17/19 09/17/19 09/17/19 09/17/19 11:00 11:40 12:00 12:00 Pulse 61 60 Resp 16 16 B/P (MAP) 127/73 (91) 141/80 (100) Pulse Ox 99 100 99 O2 Delivery Ventilator Ventilator Mechanical Ventilator Ventilator 09/17/19 09/17/19 09/17/19 09/17/19 12:17 13:00 14:00 15:00 Temp 98.0 98.0 Pulse 64 92 71 Resp 16 16 18 B/P (MAP) 156/91 (112) 144/75 (98) 181/98 (125) Pulse Ox 97 100 99 100 O2 Delivery Ventilator Venturi Mask Venturi Mask Venturi Mask 3/6/20 3/6/20 3/6/20 3/6/20 15:49 16:00 16:00 17:00 Temp 98.6 98.6 Pulse 66 71 70 Resp 20 19 B/P (MAP) 181/98 179/88 (118) 151/77 (101) Pulse Ox 98 97 O2 Delivery Mechanical Ventilator Venturi Mask Venturi Mask 09/17/19 09/17/19 09/17/19 09/17/19 17:23 18:00 18:23 19:00 Pulse 66 64 Resp 12 13 20 B/P (MAP) 152/83 (106) 155/84 (107) Pulse Ox 98 98 99 O2 Delivery Venturi Mask Venturi Mask Venturi Mask 09/17/19 09/17/19 09/17/19 09/17/19 20:00 20:00 20:04 21:00 Temp 98.4 98.4 Pulse 69 Resp 20 B/P (MAP) 157/90 (112) 156/87 (110) Pulse Ox 97 99 100 O2 Delivery Venturi Mask Venturi Mask Venturi Mask Venturi Mask O2 Flow Rate 9.0 9.0 9.0 9.0 09/17/19 09/17/19 09/18/19 09/18/19 22:00 23:00 00:00 00:00 Temp 98.2 98.2 Pulse 80 62 61 Resp 20 B/P (MAP) 159/90 (113) 159/92 (114) 178/107 (130) Pulse Ox 100 100 100 O2 Delivery Venturi Mask Venturi Mask Venturi Mask Nasal Cannula O2 Flow Rate 9.0 9.0 9.0 5.0 09/18/19 09/18/19 09/18/19 09/18/19 00:02 00:58 01:08 02:00 Pulse 64 64 77 Resp 20 22 B/P (MAP) 181/104 (129) 181/104 170/94 (119) Pulse Ox 99 98 96 O2 Delivery Venturi Mask Nasal Cannula Room Air O2 Flow Rate 9.0 5.0 09/18/19 09/18/19 09/18/19 09/18/19 03:00 04:00 04:04 05:00 Pulse 76 86 70 Resp 16 20 22 B/P (MAP) 169/73 (105) 174/86 (115) 118/76 (90) Pulse Ox 97 92 91 O2 Delivery Room Air Room Air Nasal Cannula Room Air O2 Flow Rate 4.0 09/18/19 09/18/19 09/18/19 09/18/19 06:00 07:09 07:14 07:33 Temp 98.0 98.0 Pulse 83 65 63 Resp 20 20 B/P (MAP) 160/94 (116) 195/98 (130) 195/98 Pulse Ox 96 96 O2 Delivery Nasal Cannula Room Air Room Air O2 Flow Rate 4.0 09/18/19 09/18/19 09/18/19 09/18/19 07:57 08:00 08:54 09:53 Pulse 69 81 63 B/P (MAP) 188/85 (119) 175/88 (117) 172/104 (126) Pulse Ox 94 95 96 95 O2 Delivery Room Air Room Air Room Air Room Air Intake and Output 09/17/19 09/17/19 09/18/19 15:00 23:00 07:00 Intake Total 205 ml 2499.19 ml 2730 ml Output Total 710 ml 610 ml 1750 ml Balance -505 ml 1889.19 ml 980 ml Hemodynamically unstable?: No Is patient in severe pain?: No Is NPO status required?: Yes MENDOZA NICOLE MD Sep 18, 2019 10:27
[2019-09-18] MEDS: cefTRIAXone IV Push 1 GM VIAL. IVP SCH (10:40)
[2019-09-18] MEDS: DEXMEDETOMIDINE 400 MCG in IV NORMAL SALINE 100ML 96 ML IV PRN ×3 (11:19→20:46)
[2019-09-18] MEDS ORDERED: hydrALAZINE 20 MG/ML VIAL. IVP ONE (12:15)
--- NOTE | 2019-09-18 15:34 | PDOC ---
PROGRESS NOTES Assessment Problems Medical Problems: (1) GI bleed Status: Acute Coarse movements, doubt seizures, more likely automatisms from withdrawal. Alcoholic dementia Plan Levetiracetam EEG not necessary given improvement. Overall prognosis in this patient who refuses to stop drinking is very poor. Subjective Denies pain Objective Vital Signs Date Time Temp Pulse Resp B/P (MAP) Pulse Ox O2 Delivery O2 Flow Rate FiO2 09/18/19 14:55 98.0 73 18 168/80 (109) 95 Room Air 98.0 09/18/19 06:00 4.0 Intake and Output 09/18/19 07:00 Intake Total 5434.19 ml Output Total 3070 ml Balance 2364.19 ml Intake Oral 0 ml IV Total 5434.19 ml Output Urine Total 3070 ml PHYSICAL EXAM Extubated, alert, knows location, not date PERRL. EOMI. CN: no focal findings. Muscle tone: normal. Muscle strength: 4/5 DTR: 2+ Plantar reflex: silent Gait: not examined in bed. Sensory exam: no abnormal findings. No cerebellar signs elicited. Review of Relevant I have reviewed the following items wali (where applicable) has been applied. Labs Laboratory Tests Test 09/17/19 04:00 09/17/19 08:00 09/17/19 12:30 09/18/19 08:40 White Blood Count 6.1 x10^3/uL (4.0-11.0) 5.7 x10^3/uL (4.0-11.0) Red Blood Count 3.26 x10^6/uL (4.30-5.70) 3.56 x10^6/uL (4.30-5.70) Hemoglobin 9.0 g/dL (13.0-17.5) 9.7 g/dL (13.0-17.5) Hematocrit 27.2 % (39.0-53.0) 29.3 % (39.0-53.0) Mean Corpuscular Volume 84 fL (79-100) 82 fL (79-100) Mean Corpuscular Hemoglobin 28 pg (25-35) 27 pg (25-35) Mean Corpuscular Hemoglobin Concent 33 g/dL (31-37) 33 g/dL (31-37) Red Cell Distribution Width 17.4 % (11.5-14.5) 17.6 % (11.5-14.5) Platelet Count 83 x10^3/uL (140-400) 132 x10^3/uL (140-400) Neutrophils (%) (Auto) 71 % (31-73) 76 % (31-73) Lymphocytes (%) (Auto) 16 % (24-48) 9 % (24-48) Monocytes (%) (Auto) 10 % (0-9) 12 % (0-9) Eosinophils (%) (Auto) 3 % (0-3) 3 % (0-3) Basophils (%) (Auto) 1 % (0-3) 1 % (0-3) Neutrophils # (Auto) 4.3 x10^3/uL (1.8-7.7) 4.3 x10^3/uL (1.8-7.7) Lymphocytes # (Auto) 0.9 x10^3/uL (1.0-4.8) 0.5 x10^3/uL (1.0-4.8) Monocytes # (Auto) 0.6 x10^3/uL (0.0-1.1) 0.7 x10^3/uL (0.0-1.1) Eosinophils # (Auto) 0.2 x10^3/uL (0.0-0.7) 0.1 x10^3/uL (0.0-0.7) Basophils # (Auto) 0.1 x10^3/uL (0.0-0.2) 0.0 x10^3/uL (0.0-0.2) Sodium Level 141 mmol/L (136-145) 140 mmol/L (136-145) Potassium Level 3.4 mmol/L (3.5-5.1) 3.5 mmol/L (3.5-5.1) Chloride Level 107 mmol/L (98-107) 103 mmol/L (98-107) Carbon Dioxide Level 27 mmol/L (21-32) 28 mmol/L (21-32) Anion Gap 7 (6-14) 9 (6-14) Blood Urea Nitrogen 7 mg/dL (8-26) 6 mg/dL (8-26) Creatinine 0.6 mg/dL (0.7-1.3) 0.6 mg/dL (0.7-1.3) Estimated GFR (Cockcroft-Gault) 147.8 147.8 BUN/Creatinine Ratio 12 (6-20) Glucose Level 136 mg/dL (70-99) 132 mg/dL (70-99) Calcium Level 7.6 mg/dL (8.5-10.1) 8.1 mg/dL (8.5-10.1) Magnesium Level 1.7 mg/dL (1.8-2.4) 1.7 mg/dL (1.8-2.4) Total Bilirubin 0.4 mg/dL (0.2-1.0) Aspartate Amino Transf (AST/SGOT) 82 U/L (15-37) Alanine Aminotransferase (ALT/SGPT) 105 U/L (16-63) Alkaline Phosphatase 49 U/L (46-116) Total Protein 5.0 g/dL (6.4-8.2) Albumin 2.1 g/dL (3.4-5.0) Albumin/Globulin Ratio 0.7 (1.0-1.7) O2 Saturation 98 % (92-99) 95 % (92-99) Arterial Blood pH 7.43 (7.35-7.45) 7.44 (7.35-7.45) Arterial Blood pCO2 at Patient Temp 37 mmHg (35-46) 38 mmHg (35-46) Arterial Blood pO2 at Patient Temp 143 mmHg (75-108) 81 mmHg (75-108) Arterial Blood HCO3 24 mmol/L (21-28) 25 mmol/L (21-28) Arterial Blood Base Excess 0 mmol/L (-3-3) 1 mmol/L (-3-3) FiO2 40 35 Laboratory Tests Test 09/18/19 08:40 White Blood Count 5.7 x10^3/uL (4.0-11.0) Red Blood Count 3.56 x10^6/uL (4.30-5.70) Hemoglobin 9.7 g/dL (13.0-17.5) Hematocrit 29.3 % (39.0-53.0) Mean Corpuscular Volume 82 fL (79-100) Mean Corpuscular Hemoglobin 27 pg (25-35) Mean Corpuscular Hemoglobin Concent 33 g/dL (31-37) Red Cell Distribution Width 17.6 % (11.5-14.5) Platelet Count 132 x10^3/uL (140-400) Neutrophils (%) (Auto) 76 % (31-73) Lymphocytes (%) (Auto) 9 % (24-48) Monocytes (%) (Auto) 12 % (0-9) Eosinophils (%) (Auto) 3 % (0-3) Basophils (%) (Auto) 1 % (0-3) Neutrophils # (Auto) 4.3 x10^3/uL (1.8-7.7) Lymphocytes # (Auto) 0.5 x10^3/uL (1.0-4.8) Monocytes # (Auto) 0.7 x10^3/uL (0.0-1.1) Eosinophils # (Auto) 0.1 x10^3/uL (0.0-0.7) Basophils # (Auto) 0.0 x10^3/uL (0.0-0.2) Sodium Level 140 mmol/L (136-145) Potassium Level 3.5 mmol/L (3.5-5.1) Chloride Level 103 mmol/L (98-107) Carbon Dioxide Level 28 mmol/L (21-32) Anion Gap 9 (6-14) Blood Urea Nitrogen 6 mg/dL (8-26) Creatinine 0.6 mg/dL (0.7-1.3) Estimated GFR (Cockcroft-Gault) 147.8 Glucose Level 132 mg/dL (70-99) Calcium Level 8.1 mg/dL (8.5-10.1) Magnesium Level 1.7 mg/dL (1.8-2.4) Medications Current Medications Ondansetron HCl (Zofran) 4 mg STK-MED ONCE .ROUTE ; Start 09/14/19 at 17:54; Stop 09/14/19 at 17:54; Status DC Lorazepam (Ativan Inj) 2 mg STK-MED ONCE .ROUTE ; Start 09/14/19 at 17:55; Stop 09/14/19 at 17:55; Status DC Lorazepam (Ativan Inj) 2 mg 1X ONCE IVP Last administered on 09/14/19at 18:05; Start 09/14/19 at 18:00; Stop 09/14/19 at 18:09; Status DC Ondansetron HCl (Zofran) 4 mg 1X ONCE IVP Last administered on 09/14/19at 18:04; Start 09/14/19 at 18:00; Stop 09/14/19 at 18:09; Status DC Pantoprazole Sodium (PROTONIX VIAL for IV PUSH) 40 mg 1X ONCE IVP Last administered on 09/14/19at 18:43; Start 09/14/19 at 18:00; Stop 09/14/19 at 18:09; Status DC Sodium Chloride 1,000 ml @ 1,000 mls/hr 1X ONCE IV Last administered on 09/14/19at 19:10; Start 09/14/19 at 18:00; Stop 09/14/19 at 19:00; Status DC Multivitamins 10 ml/Thiamine HCl 100 mg/Folic Acid 1 mg/Sodium Chloride 1,011.2 ml @ 100 mls/ hr DAILY IV Last administered on 09/18/19at 09:37; Start 09/14/19 at 18:30; Stop 09/18/19 at 19:07 Lorazepam (Ativan Inj) 2 mg PRN Q1HR PRN IV For CIWA 8-14 Last administered on 09/18/19at 05:33; Start 09/14/19 at 18:30 Lorazepam (Ativan Inj) 4 mg PRN Q1HR PRN IV For CIWA 15 or greater Last administered on 09/18/19at 13:17; Start 09/14/19 at 18:30 Pantoprazole Sodium 80 mg/ Sodium Chloride 100 ml @ 10 mls/hr 1X ONCE IV Last administered on 09/14/19at 18:44; Start 09/14/19 at 18:30; Stop 09/15/19 at 04:29; Status DC Iohexol (Omnipaque 300 Mg/ml) 75 ml 1X ONCE IV ; Start 09/14/19 at 19:00; Stop 09/14/19 at 19:01; Status DC Info (CONTRAST GIVEN -- Rx MONITORING) 1 each PRN DAILY PRN MC SEE COMMENTS; Start 09/14/19 at 19:00; Stop 09/16/19 at 18:59; Status DC Ondansetron HCl (Zofran) 4 mg PRN Q8HRS PRN IV NAUSEA/VOMITING; Start 09/14/19 at 19:30; Stop 09/15/19 at 19:29; Status DC Sodium Chloride 1,000 ml @ 125 mls/hr Q8H IV Last administered on 09/15/19at 15:39; Start 09/14/19 at 19:19; Stop 09/15/19 at 19:18; Status DC Etomidate (Amidate) 20 mg STK-MED ONCE IV ; Start 09/14/19 at 21:22; Stop 09/14/19 at 21:22; Status DC Lidocaine HCl (Lidocaine Pf 2% Vial) 5 ml STK-MED ONCE .ROUTE ; Start 09/14/19 at 21:22; Stop 09/14/19 at 21:22; Status DC Rocuronium [place] (Zemuron) 50 mg STK-MED ONCE .ROUTE ; Start 09/14/19 at 21:23; Stop 09/14/19 at 21:23; Status DC Phenylephrine HCl (PHENYLEPHRINE in 0.9% NACL PF) 1 mg STK-MED ONCE IV ; Start 09/14/19 at 21:24; Stop 09/14/19 at 21:24; Status DC Propofol 100 ml @ 0 mls/hr CONT PRN IV SEE PROTOCOL Last administered on 09/17/19at 03:32; Start 09/14/19 at 22:30 Fentanyl Citrate (Fentanyl 2ml Vial) 25 mcg PRN Q1HR PRN IV SEE COMMENTS; Start 09/14/19 at 22:30; Stop 09/15/19 at 06:26; Status DC Fentanyl Citrate (Fentanyl 2ml Vial) 50 mcg PRN Q1HR PRN IV SEE COMMENTS; Start 09/14/19 at 22:30; Stop 09/15/19 at 06:26; Status DC Epinephrine HCl (EPINEPHrine SYRINGE) 1 mg STK-MED ONCE .ROUTE ; Start 09/14/19 at 23:19; Stop 09/14/19 at 23:20; Status DC Pantoprazole Sodium (PROTONIX VIAL for IV PUSH) 40 mg BID IVP Last administered on 09/18/19at 09:21; Start 09/15/19 at 09:00 Epinephrine HCl (EPINEPHrine SYRINGE) 1 mg STK-MED ONCE IV Last administered on 09/14/19at 23:00; Start 09/14/19 at 23:00; Stop 09/14/19 at 23:29; Status DC Fentanyl Citrate 30 ml @ 0 mls/hr CONT PRN IV SEE PROTOCOL Last administered on 09/16/19at 20:58; Start 09/14/19 at 23:45; Stop 09/17/19 at 16:28; Status DC Midazolam HCl 50 mg/Sodium Chloride 50 ml @ 0 mls/hr CONT PRN IV SEE PROTOCOL Last administered on 09/15/19at 22:10; Start 09/14/19 at 23:45; Stop 09/17/19 at 16:28; Status DC Sodium Bicarbonate (Sodium Bicarb Adult 8.4% Syr) 50 meq 1X ONCE IV Last administered on 09/15/19at 01:25; Start 09/15/19 at 01:00; Stop 09/15/19 at 01:01; Status DC Sodium Chloride 1,000 ml @ 50 mls/hr Q20H IV Last administered on 09/18/19at 00:18; Start 09/16/19 at 02:00 Dexmedetomidine HCl 400 mcg/ Sodium Chloride 100 ml @ 0 mls/hr CONT PRN IV AGITATION Last administered on 09/18/19at 11:19; Start 09/16/19 at 08:30 Sodium Chloride 500 ml @ 500 mls/hr 1X PRN PRN IV HYPOTENTION; Start 09/16/19 at 08:30 Atropine Sulfate (ATROPINE 0.5mg SYRINGE) 0.5 mg PRN Q5MIN PRN IV SEE COMMENTS; Start 09/16/19 at 08:30 Amino Acids/ Glycerin/ Electrolytes 1,000 ml @ 80 mls/hr [id number] IV ; Start 09/16/19 at 10:00; Status UNV Ceftriaxone Sodium (Rocephin) 1 gm Q24H IVP Last administered on 09/18/19at 10:40; Start 09/16/19 at 11:00 Amino Acids/ Electrolytes/ Dextrose 1,000 ml @ 80 mls/hr [id number] IV Last administered on 09/18/19at 01:08; Start 09/16/19 at 10:15 Magnesium Sulfate/ Dextrose 100 ml @ 100 mls/hr 1X ONCE IV Last administered on 09/16/19at 12:10; Start 09/16/19 at 11:45; Stop 09/16/19 at 12:44; Status DC Potassium Chloride/Water 100 ml @ 100 mls/hr Q1H IV ; Start 09/16/19 at 14:15; Stop 09/16/19 at 14:16; Status DC Potassium Chloride/Water 100 ml @ 100 mls/hr Q1H IV ; Start 09/16/19 at 14:15; Stop 09/16/19 at 14:17; Status DC Magnesium Sulfate 100 ml @ 50 mls/hr DAILY IV Last administered on 09/18/19at 09:39; Start 09/17/19 at 09:00; Stop 09/20/19 at 08:59 Sodium Phosphate 15 mmol/Sodium Chloride 255 ml @ 62.5 mls/hr PRN 1X PRN IV SEE COMMENTS; Start 09/16/19 at 14:15 Sodium Phosphate 15 mmol/Sodium Chloride 255 ml @ 62.5 mls/hr PRN 1X PRN IV SEE COMMENTS; Start 09/16/19 at 14:15 Potassium Chloride/Water 100 ml @ 100 mls/hr PRN Q1HR PRN IV SEE COMMENTS; Start 09/16/19 at 14:30 Potassium Chloride/Water 100 ml @ 100 mls/hr PRN Q1HR PRN IV SEE COMMENTS; Start 09/16/19 at 14:30 Levetiracetam 500 mg/Dextrose 105 ml @ 420 mls/hr Q12HR IV Last administered on 09/18/19at 09:14; Start 09/16/19 at 21:00 Hydralazine HCl (Apresoline Inj) 10 mg PRN Q4HRS PRN IVP ELEVATED BP, SEE COMMENTS Last administered on 09/18/19at 11:22; Start 09/16/19 at 18:00 Magnesium Sulfate/ Dextrose 100 ml @ 100 mls/hr 1X ONCE IV ; Start 09/17/19 at 12:45; Stop 09/17/19 at 13:03; Status DC Albuterol Sulfate (Ventolin Neb Soln) 2.5 mg PRN Q6HRS PRN NEB SHORTNESS OF BREATH; Start 09/17/19 at 15:45 Budesonide (Pulmicort) 0.5 mg RTBID NEB Last administered on 09/18/19at 07:55; Start 09/17/19 at 20:00 Albuterol Sulfate (Ventolin Neb Soln) 2.5 mg Q6HRS NEB Last administered on 09/18/19at 12:35; Start 09/17/19 at 18:00 Fentanyl Citrate (Fentanyl 2ml Vial) 25 mcg PRN Q3HRS PRN IVP PAIN Last administered on 09/17/19at 17:23; Start 09/17/19 at 17:00 Hydralazine HCl (Apresoline Inj) 10 mg 1X ONCE IVP Last administered on 09/18/19at 12:18; Start 09/18/19 at 12:15; Stop 09/18/19 at 12:16; Status DC Hydralazine HCl (Apresoline Inj) 20 mg PRN Q4HRS PRN IVP ELEVATED BP, SEE COMMENTS; Start 09/18/19 at 12:15 Active Scripts Active Protonix (Pantoprazole Sodium) 40 Mg Tablet.dr 40 Mg PO DAILYAC PRN 30 Days Reported Amlodipine Besylate 5 Mg Tablet 5 Mg PO DAILY Proair Hfa Inhaler (Albuterol Sulfate) 8.5 Gm Hfa.aer.ad 1 Puff INH PRN Q4HRS PRN Symbicort 160-4.5 Mcg Inhaler (Budesonide/Formoterol Fumarate) 10.2 Gm Hfa.aer.ad 2 Puff IH BID Theophylline (Theophylline Anhydrous) 400 Mg Tablet.er 300 Mg PO BID Vitals/I & O Vital Sign - Last 24 Hours 09/17/19 09/17/19 09/17/19 09/17/19 15:49 16:00 16:00 17:00 Temp 98.6 98.6 Pulse 66 71 70 Resp 20 19 B/P (MAP) 181/98 179/88 (118) 151/77 (101) Pulse Ox 98 97 O2 Delivery Mechanical Ventilator Venturi Mask Venturi Mask 09/17/19 09/17/19 09/17/19 09/17/19 17:23 18:00 18:23 19:00 Pulse 66 64 Resp 12 13 20 B/P (MAP) 152/83 (106) 155/84 (107) Pulse Ox 98 98 99 O2 Delivery Venturi Mask Venturi Mask Venturi Mask 09/17/19 09/17/19 09/17/19 09/17/19 20:00 20:00 20:04 21:00 Temp 98.4 98.4 Pulse 69 Resp 20 B/P (MAP) 157/90 (112) 156/87 (110) Pulse Ox 97 99 100 O2 Delivery Venturi Mask Venturi Mask Venturi Mask Venturi Mask O2 Flow Rate 9.0 9.0 9.0 9.0 09/17/19 09/17/19 09/18/19 09/18/19 22:00 23:00 00:00 00:00 Temp 98.2 98.2 Pulse 80 62 61 Resp 20 B/P (MAP) 159/90 (113) 159/92 (114) 178/107 (130) Pulse Ox 100 100 100 O2 Delivery Venturi Mask Venturi Mask Venturi Mask Nasal Cannula O2 Flow Rate 9.0 9.0 9.0 5.0 09/18/19 09/18/19 09/18/19 09/18/19 00:02 00:58 01:08 02:00 Pulse 64 64 77 Resp 20 B/P (MAP) 181/104 (129) 181/104 170/94 (119) Pulse Ox 99 98 96 O2 Delivery Venturi Mask Nasal Cannula Room Air O2 Flow Rate 9.0 5.0 09/18/19 09/18/19 09/18/19 09/18/19 03:00 04:00 04:04 05:00 Pulse 76 86 70 Resp 16 22 B/P (MAP) 169/73 (105) 174/86 (115) 118/76 (90) Pulse Ox 97 92 91 O2 Delivery Room Air Room Air Nasal Cannula Room Air O2 Flow Rate 4.0 09/18/19 09/18/19 09/18/19 09/18/19 06:00 07:09 07:14 07:33 Temp 98.0 98.0 Pulse 83 65 63 Resp B/P (MAP) 160/94 (116) 195/98 (130) 195/98 Pulse Ox 96 96 O2 Delivery Nasal Cannula Room Air Room Air O2 Flow Rate 4.0 09/18/19 09/18/19 09/18/19 09/18/19 07:57 08:00 08:54 09:53 Pulse 69 81 63 B/P (MAP) 188/85 (119) 175/88 (117) 172/104 (126) Pulse Ox 94 95 96 95 O2 Delivery Room Air Room Air Room Air Room Air 09/18/19 09/18/19 09/18/19 09/18/19 10:55 11:22 12:00 12:11 Temp 97.8 97.8 Pulse 80 72 86 Resp 22 B/P (MAP) 187/104 (131) 187/104 157/94 (115) Pulse Ox 94 92 O2 Delivery Room Air Room Air 09/18/19 09/18/19 09/18/19 09/18/19 12:18 12:36 13:15 14:16 Pulse 64 65 72 Resp 21 B/P (MAP) 181/90 154/78 (103) 164/88 (113) Pulse Ox 94 98 95 O2 Delivery Room Air Room Air Room Air 09/18/19 14:55 Temp 98.0 98.0 Pulse 73 Resp 18 B/P (MAP) 168/80 (109) Pulse Ox 95 O2 Delivery Room Air Intake and Output 09/17/19 09/17/19 09/18/19 15:00 23:00 07:00 Intake Total 205 ml 2499.19 ml 2730 ml Output Total 710 ml 610 ml 1750 ml Balance -505 ml 1889.19 ml 980 ml JUANCARLOS CULP MD Sep 18, 2019 15:34
--- NOTE | 2019-09-18 18:42 | RAD ---
Exam: Chest one view INDICATION: PICC placement TECHNIQUE: Frontal view of the chest Comparisons: 09/16/2019 FINDINGS: Right-sided PICC with tip at the atrial caval junction. The cardiomediastinal silhouette and pulmonary vessels are within normal limits. Patchy airspace disease at the right mid and lower lung. No pleural effusion. IMPRESSION: Interval placement of a right-sided PICC as described above. Electronically signed by: Silverio Webster MD (09/18/2019 6:39 PM) [id number]
--- NOTE | 2019-09-18 18:43 | RAD ---
Exam: Chest one view INDICATION: PICC placement TECHNIQUE: Frontal view of the chest Comparisons: Radiograph earlier today FINDINGS: There has been mild interval retraction of the right PICC which is now in the SVC/atrial caval junction. Remainder of the exam is unchanged. IMPRESSION: PICC adjustment as described above. Electronically signed by: Silverio Webster MD (09/18/2019 6:40 PM) [id number]
--- NOTE | 2019-09-18 19:13 | NUR ---
RN Note patient lost multiple IV sites and was unable to get camryn medications. TL PICC placed by [place] and IVF restarted. patient has a pressure dressing on PICC d/t bleeding.
--- NOTE | 2019-09-18 20:49 | RAD ---
Exam: Left lower extremity venous duplex study INDICATION: Leg swelling TECHNIQUE: Using a combination of real-time ultrasound imaging and color-flow and pulse Doppler imaging techniques along with graded compression and augmentation, duplex evaluation of the deep venous systems of leftlower extremity was performed. Multiple images were obtained. Findings: Linear web noted within the left common femoral vein similar to the prior study. There is no sonographic evidence for deep venous thrombosis involving the visualized deep venous structures of the left lower extremity. IMPRESSION: No acute DVT in the left lower extremity. 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 Electronically signed by: Silverio Webster MD (09/18/2019 8:46 PM) [id number]
[2019-09-19] VITALS (24 sets, daily range): BP systolic 138–194; BP diastolic 69–106
[2019-09-19] MEDS: DEXMEDETOMIDINE 400 MCG in IV NORMAL SALINE 100ML 96 ML IV PRN ×7 (01:05→23:20)
[2019-09-19] MEDS: IV NORMAL SALINE 1000ML BAG 1,000 ML IV SCH (03:09)
[2019-09-19] MEDS: hydrALAZINE 20 MG/ML VIAL. IVP PRN ×3 (04:43→18:25)
[2019-09-19 05:10] LABS: CALCIUM 8.5 mg/dL (8.5-10.1); CREATININE 0.7 mg/dL (0.7-1.3); GFR 123.7; MAGNESIUM 1.7 mg/dL (1.8-2.4); POTASSIUM 3.4 mmol/L (3.5-5.1)
--- NOTE | 2019-09-19 06:21 | NUR ---
Pt. restless all night. Continuously trying to get out of bed. Ativan given throughout night prn.
[2019-09-19] MEDS: BUDESONIDE 0.5 MG/2 ML NEBU. NEB SCH ×2 (08:08→19:35)
[2019-09-19] MEDS: ALBUTEROL SULFATE 2.5 MG/3 ML NEBU. NEB SCH ×4 (08:08→23:51)
[2019-09-19] MEDS: PANTOPRAZOLE IV PUSH 40 MG VIAL. IVP SCH ×2 (09:08→21:58)
[2019-09-19] MEDS: MAGNESIUM SULFATE 4GM 100 ML IV SCH (09:10)
[2019-09-19] MEDS: levETIRAcetam 500 MG in IV DEXTROSE 5% 100ML 100 ML IV SCH (10:19)
[2019-09-19] MEDS: cefTRIAXone IV Push 1 GM VIAL. IVP SCH (10:19)
--- NOTE | 2019-09-19 10:25 | PDOC ---
PULMONARY PROGRESS NOTES Subjective Pt. is extubated 09/15 on precedex Vitals Vital Signs Date Time Temp Pulse Resp B/P (MAP) Pulse Ox O2 Delivery O2 Flow Rate FiO2 09/19/19 09:09 93 188/99 09/19/19 08:08 98 Nasal Cannula 4.0 09/19/19 06:00 15 09/19/19 04:00 97.5 97.5 General: Lethargic Lungs: Clear Cardiovascular: S1, S2 Abdomen: Soft Extremities: No Edema Skin: Warm Labs Laboratory Tests Test 09/17/19 12:30 09/18/19 08:40 09/19/19 04:30 O2 Saturation 95 % (92-99) Arterial Blood pH 7.44 (7.35-7.45) Arterial Blood pCO2 at Patient Temp 38 mmHg (35-46) Arterial Blood pO2 at Patient Temp 81 mmHg (75-108) Arterial Blood HCO3 25 mmol/L (21-28) Arterial Blood Base Excess 1 mmol/L (-3-3) FiO2 35 White Blood Count 5.7 x10^3/uL (4.0-11.0) Red Blood Count 3.56 x10^6/uL (4.30-5.70) Hemoglobin 9.7 g/dL (13.0-17.5) Hematocrit 29.3 % (39.0-53.0) Mean Corpuscular Volume 82 fL (79-100) Mean Corpuscular Hemoglobin 27 pg (25-35) Mean Corpuscular Hemoglobin Concent 33 g/dL (31-37) Red Cell Distribution Width 17.6 % (11.5-14.5) Platelet Count 132 x10^3/uL (140-400) Neutrophils (%) (Auto) 76 % (31-73) Lymphocytes (%) (Auto) 9 % (24-48) Monocytes (%) (Auto) 12 % (0-9) Eosinophils (%) (Auto) 3 % (0-3) Basophils (%) (Auto) 1 % (0-3) Neutrophils # (Auto) 4.3 x10^3/uL (1.8-7.7) Lymphocytes # (Auto) 0.5 x10^3/uL (1.0-4.8) Monocytes # (Auto) 0.7 x10^3/uL (0.0-1.1) Eosinophils # (Auto) 0.1 x10^3/uL (0.0-0.7) Basophils # (Auto) 0.0 x10^3/uL (0.0-0.2) Sodium Level 140 mmol/L (136-145) 139 mmol/L (136-145) Potassium Level 3.5 mmol/L (3.5-5.1) 3.4 mmol/L (3.5-5.1) Chloride Level 103 mmol/L (98-107) 103 mmol/L (98-107) Carbon Dioxide Level 28 mmol/L (21-32) 26 mmol/L (21-32) Anion Gap 9 (6-14) 10 (6-14) Blood Urea Nitrogen 6 mg/dL (8-26) 6 mg/dL (8-26) Creatinine 0.6 mg/dL (0.7-1.3) 0.7 mg/dL (0.7-1.3) Estimated GFR (Cockcroft-Gault) 147.8 123.7 Glucose Level 132 mg/dL (70-99) 113 mg/dL (70-99) Calcium Level 8.1 mg/dL (8.5-10.1) 8.5 mg/dL (8.5-10.1) Magnesium Level 1.7 mg/dL (1.8-2.4) 1.7 mg/dL (1.8-2.4) Laboratory Tests Test 09/19/19 04:30 Sodium Level 139 mmol/L (136-145) Potassium Level 3.4 mmol/L (3.5-5.1) Chloride Level 103 mmol/L (98-107) Carbon Dioxide Level 26 mmol/L (21-32) Anion Gap 10 (6-14) Blood Urea Nitrogen 6 mg/dL (8-26) Creatinine 0.7 mg/dL (0.7-1.3) Estimated GFR (Cockcroft-Gault) 123.7 Glucose Level 113 mg/dL (70-99) Calcium Level 8.5 mg/dL (8.5-10.1) Magnesium Level 1.7 mg/dL (1.8-2.4) Medications Active Scripts Medications Dose Route/Sig Max Daily Dose Days Date Category Amlodipine Besylate 5 Mg Tablet 5 Mg PO DAILY 07/08/19 Reported Protonix (Pantoprazole Sodium) 40 Mg Tablet.dr 40 Mg PO DAILYAC PRN 30 06/23/19 Rx Proair Hfa Inhaler (Albuterol Sulfate) 8.5 Gm Hfa.aer.ad 1 Puff INH PRN Q4HRS PRN 03/02/18 Reported Symbicort 160-4.5 Mcg Inhaler (Budesonide/Formoterol Fumarate) 10.2 Gm Hfa.aer.ad 2 Puff IH BID 08/13/16 Reported Theophylline (Theophylline Anhydrous) 400 Mg Tablet.er 300 Mg PO BID 08/20/13 Reported Impression . 1. Acute respiratory failure secondary to acute gastrointestinal bleed along with hepatic encephalopathy. 2. History of alcoholism, presented with acute gastrointestinal bleed. 3. Status post EGD, was found to have a duodenal ulcer in the first and second portion of the duodenum with a visible vessel. Status post epinephrine injection. 4. Acute blood loss anemia. 5. Mild coagulopathy along with thrombocytopenia. 6. Susped ETOH withdrawl seizures 7. DT Plan . 1. continue precedex, prn ativan 2. Watch for stability of the hemoglobin. 4. Monitor chest x-ray. 5. Monitor hemoglobin. 6. Follow GI recommendations. 7. PPI. 8. SCDs. 9. empiric abx d/w KARLA BIRCH MD Sep 19, 2019 10:25
[2019-09-19] MEDS: POTASSIUM CHLORIDE 20MEQ 100 ML IV SCH ×2 (11:16→13:26)
--- NOTE | 2019-09-19 11:53 | PDOC ---
PROGRESS NOTES History of Present Illness History of Present Illness VTE Prophylaxis Ordered VTE Prophylaxis Devices: Yes VTE Pharmacological Prophylaxi: Contraindicated Assessment/Plan Assessment/Plan IMPRESSION: 1. acute UGI BLEED 2. severe diffuse hepatic steatosis. 3. Erosive esophagitis, epinephrine injection duodenal ulcer in the first and second portions of duodenum with a visible vessel, status post epinephrine injection. 4. polysubstance abuse, ALCOHOL, COCAINE, THC 5. ELECTROLYTE IMBALANCE 6. MALIGNANT HTN PLAN ADMIT ICU status post epinephrine injection second portions of duodenum with a visible GI CONSULTED IN ER TRANSFUSED PRN alcohol withdrawal protocol SCD'S pat consult VENT SUPPORT D/C PROTONIX DRIP replete lytes IV HYDRALAZINE 10-20 MG PRN BP SUPPORT stop levetiracetam EEG not necessary with improvement. 09/16 EXTUBATED 09/18 lytes replaced 34 min cc time Vitals Vitals Vital Signs Date Time Temp Pulse Resp B/P (MAP) Pulse Ox O2 Delivery O2 Flow Rate FiO2 09/19/19 09:09 93 188/99 09/19/19 08:08 98 Nasal Cannula 4.0 09/19/19 06:00 15 09/19/19 04:00 97.5 97.5 Physical Exam Physical Exam SEDATED ON VENT General: No acute distress Heart: Regular rate, Normal S1, Normal S2 Lungs: Clear Abdomen: Normal bowel sounds, Soft, No tenderness Extremities: No cyanosis, No edema Labs LABS Laboratory Tests Test 09/19/19 04:30 Sodium Level 139 mmol/L (136-145) Potassium Level 3.4 mmol/L (3.5-5.1) Chloride Level 103 mmol/L (98-107) Carbon Dioxide Level 26 mmol/L (21-32) Anion Gap 10 (6-14) Blood Urea Nitrogen 6 mg/dL (8-26) Creatinine 0.7 mg/dL (0.7-1.3) Estimated GFR (Cockcroft-Gault) 123.7 Glucose Level 113 mg/dL (70-99) Calcium Level 8.5 mg/dL (8.5-10.1) Magnesium Level 1.7 mg/dL (1.8-2.4) Assessment and Plan Assessmemt and Plan Problems Medical Problems: (1) GI bleed Status: Acute Comment Review of Relevant I have reviewed the following items wali (where applicable) has been applied. Labs Laboratory Tests Test 09/17/19 12:30 09/18/19 08:40 09/19/19 04:30 O2 Saturation 95 % (92-99) Arterial Blood pH 7.44 (7.35-7.45) Arterial Blood pCO2 at Patient Temp 38 mmHg (35-46) Arterial Blood pO2 at Patient Temp 81 mmHg (75-108) Arterial Blood HCO3 25 mmol/L (21-28) Arterial Blood Base Excess 1 mmol/L (-3-3) FiO2 35 White Blood Count 5.7 x10^3/uL (4.0-11.0) Red Blood Count 3.56 x10^6/uL (4.30-5.70) Hemoglobin 9.7 g/dL (13.0-17.5) Hematocrit 29.3 % (39.0-53.0) Mean Corpuscular Volume 82 fL (79-100) Mean Corpuscular Hemoglobin 27 pg (25-35) Mean Corpuscular Hemoglobin Concent 33 g/dL (31-37) Red Cell Distribution Width 17.6 % (11.5-14.5) Platelet Count 132 x10^3/uL (140-400) Neutrophils (%) (Auto) 76 % (31-73) Lymphocytes (%) (Auto) 9 % (24-48) Monocytes (%) (Auto) 12 % (0-9) Eosinophils (%) (Auto) 3 % (0-3) Basophils (%) (Auto) 1 % (0-3) Neutrophils # (Auto) 4.3 x10^3/uL (1.8-7.7) Lymphocytes # (Auto) 0.5 x10^3/uL (1.0-4.8) Monocytes # (Auto) 0.7 x10^3/uL (0.0-1.1) Eosinophils # (Auto) 0.1 x10^3/uL (0.0-0.7) Basophils # (Auto) 0.0 x10^3/uL (0.0-0.2) Sodium Level 140 mmol/L (136-145) 139 mmol/L (136-145) Potassium Level 3.5 mmol/L (3.5-5.1) 3.4 mmol/L (3.5-5.1) Chloride Level 103 mmol/L (98-107) 103 mmol/L (98-107) Carbon Dioxide Level 28 mmol/L (21-32) 26 mmol/L (21-32) Anion Gap 9 (6-14) 10 (6-14) Blood Urea Nitrogen 6 mg/dL (8-26) 6 mg/dL (8-26) Creatinine 0.6 mg/dL (0.7-1.3) 0.7 mg/dL (0.7-1.3) Estimated GFR (Cockcroft-Gault) 147.8 123.7 Glucose Level 132 mg/dL (70-99) 113 mg/dL (70-99) Calcium Level 8.1 mg/dL (8.5-10.1) 8.5 mg/dL (8.5-10.1) Magnesium Level 1.7 mg/dL (1.8-2.4) 1.7 mg/dL (1.8-2.4) Laboratory Tests Test 09/19/19 04:30 Sodium Level 139 mmol/L (136-145) Potassium Level 3.4 mmol/L (3.5-5.1) Chloride Level 103 mmol/L (98-107) Carbon Dioxide Level 26 mmol/L (21-32) Anion Gap 10 (6-14) Blood Urea Nitrogen 6 mg/dL (8-26) Creatinine 0.7 mg/dL (0.7-1.3) Estimated GFR (Cockcroft-Gault) 123.7 Glucose Level 113 mg/dL (70-99) Calcium Level 8.5 mg/dL (8.5-10.1) Magnesium Level 1.7 mg/dL (1.8-2.4) Medications Current Medications Ondansetron HCl (Zofran) 4 mg STK-MED ONCE .ROUTE ; Start 09/14/19 at 17:54; Stop 09/14/19 at 17:54; Status DC Lorazepam (Ativan Inj) 2 mg STK-MED ONCE .ROUTE ; Start 09/14/19 at 17:55; Stop 09/14/19 at 17:55; Status DC Lorazepam (Ativan Inj) 2 mg 1X ONCE IVP Last administered on 09/14/19at 18:05; Start 09/14/19 at 18:00; Stop 09/14/19 at 18:09; Status DC Ondansetron HCl (Zofran) 4 mg 1X ONCE IVP Last administered on 09/14/19 18:04; Start 09/14/19 at 18:00; Stop 09/14/19 at 18:09; Status DC Pantoprazole Sodium (PROTONIX VIAL for IV PUSH) 40 mg 1X ONCE IVP Last administered on 09/14/19at 18:43; Start 09/14/19 at 18:00; Stop 09/14/19 at 18:09; Status DC Sodium Chloride 1,000 ml @ 1,000 mls/hr 1X ONCE IV Last administered on 09/14/19at 19:10; Start 09/14/19 at 18:00; Stop 09/14/19 at 19:00; Status DC Multivitamins 10 ml/Thiamine HCl 100 mg/Folic Acid 1 mg/Sodium Chloride 1,011.2 ml @ 100 mls/ hr DAILY IV Last administered on 09/18/19at 09:37; Start 09/14/19 at 18:30; Stop 09/18/19 at 19:07; Status DC Lorazepam (Ativan Inj) 2 mg PRN Q1HR PRN IV For CIWA 8-14 Last administered on 09/19/19at 09:09; Start 09/14/19 at 18:30 Lorazepam (Ativan Inj) 4 mg PRN Q1HR PRN IV For CIWA 15 or greater Last administered on 09/19/19at 08:38; Start 09/14/19 at 18:30 Pantoprazole Sodium 80 mg/ Sodium Chloride 100 ml @ 10 mls/hr 1X ONCE IV Last administered on 09/14/19at 18:44; Start 09/14/19 at 18:30; Stop 09/15/19 at 04:29; Status DC Iohexol (Omnipaque 300 Mg/ml) 75 ml 1X ONCE IV ; Start 09/14/19 at 19:00; Stop 09/14/19 at 19:01; Status DC Info (CONTRAST GIVEN -- Rx MONITORING) 1 each PRN DAILY PRN MC SEE COMMENTS; Start 09/14/19 at 19:00; Stop 09/16/19 at 18:59; Status DC Ondansetron HCl (Zofran) 4 mg PRN Q8HRS PRN IV NAUSEA/VOMITING; Start 09/14/19 at 19:30; Stop 09/15/19 at 19:29; Status DC Sodium Chloride 1,000 ml @ 125 mls/hr Q8H IV Last administered on 09/15/19at 15:39; Start 09/14/19 at 19:19; Stop 09/15/19 at 19:18; Status DC Etomidate (Amidate) 20 mg STK-MED ONCE IV ; Start 09/14/19 at 21:22; Stop 09/14/19 at 21:22; Status DC Lidocaine HCl (Lidocaine Pf 2% Vial) 5 ml STK-MED ONCE .ROUTE ; Start 09/14/19 at 21:22; Stop 09/14/19 at 21:22; Status DC Rocuronium [place] (Zemuron) 50 mg STK-MED ONCE .ROUTE ; Start 09/14/19 at 21:23; Stop 09/14/19 at 21:23; Status DC Phenylephrine HCl (PHENYLEPHRINE in 0.9% NACL PF) 1 mg STK-MED ONCE IV ; Start 09/14/19 at 21:24; Stop 09/14/19 at 21:24; Status DC Propofol 100 ml @ 0 mls/hr CONT PRN IV SEE PROTOCOL Last administered on 09/17/19at 03:32; Start 09/14/19 at 22:30 Fentanyl Citrate (Fentanyl 2ml Vial) 25 mcg PRN Q1HR PRN IV SEE COMMENTS; Start 09/14/19 at 22:30; Stop 09/15/19 at 06:26; Status DC Fentanyl Citrate (Fentanyl 2ml Vial) 50 mcg PRN Q1HR PRN IV SEE COMMENTS; Start 09/14/19 at 22:30; Stop 09/15/19 at 06:26; Status DC Epinephrine HCl (EPINEPHrine SYRINGE) 1 mg STK-MED ONCE .ROUTE ; Start 09/14/19 at 23:19; Stop 09/14/19 at 23:20; Status DC Pantoprazole Sodium (PROTONIX VIAL for IV PUSH) 40 mg BID IVP Last administered on 09/19/19at 09:08; Start 09/15/19 at 09:00 Epinephrine HCl (EPINEPHrine SYRINGE) 1 mg STK-MED ONCE IV Last administered on 09/14/19at 23:00; Start 09/14/19 at 23:00; Stop 09/14/19 at 23:29; Status DC Fentanyl Citrate 30 ml @ 0 mls/hr CONT PRN IV SEE PROTOCOL Last administered on 09/16/19at 20:58; Start 09/14/19 at 23:45; Stop 09/17/19 at 16:28; Status DC Midazolam HCl 50 mg/Sodium Chloride 50 ml @ 0 mls/hr CONT PRN IV SEE PROTOCOL Last administered on 09/15/19at 22:10; Start 09/14/19 at 23:45; Stop 09/17/19 at 16:28; Status DC Sodium Bicarbonate (Sodium Bicarb Adult 8.4% Syr) 50 meq 1X ONCE IV Last administered on 09/15/19at 01:25; Start 09/15/19 at 01:00; Stop 09/15/19 at 01:01; Status DC Sodium Chloride 1,000 ml @ 50 mls/hr Q20H IV Last administered on 09/19/19at 03:09; Start 09/16/19 at 02:00 Dexmedetomidine HCl 400 mcg/ Sodium Chloride 100 ml @ 0 mls/hr CONT PRN IV AGITATION Last administered on 09/19/19at 10:20; Start 09/16/19 at 08:30 Sodium Chloride 500 ml @ 500 mls/hr 1X PRN PRN IV HYPOTENTION; Start 09/16/19 at 08:30 Atropine Sulfate (ATROPINE 0.5mg SYRINGE) 0.5 mg PRN Q5MIN PRN IV SEE COMMENTS; Start 09/16/19 at 08:30 Amino Acids/ Glycerin/ Electrolytes 1,000 ml @ 80 mls/hr [id number] IV ; Start 09/16/19 at 10:00; Status UNV Ceftriaxone Sodium (Rocephin) 1 gm Q24H IVP Last administered on 09/19/19at 10: 19; Start 09/16/19 at 11:00 Amino Acids/ Electrolytes/ Dextrose 1,000 ml @ 80 mls/hr [id number] IV Last administered on 09/18/19at 21:49; Start 09/16/19 at 10:15 Magnesium Sulfate/ Dextrose 100 ml @ 100 mls/hr 1X ONCE IV Last administered on 09/16/19at 12:10; Start 09/16/19 at 11:45; Stop 09/16/19 at 12:44; Status DC Potassium Chloride/Water 100 ml @ 100 mls/hr Q1H IV ; Start 09/16/19 at 14:15; Stop 09/16/19 at 14:16; Status DC Potassium Chloride/Water 100 ml @ 100 mls/hr Q1H IV ; Start 09/16/19 at 14:15; Stop 09/16/19 at 14:17; Status DC Magnesium Sulfate 100 ml @ 50 mls/hr DAILY IV Last administered on 09/19/19at 09:10; Start 09/17/19 at 09:00; Stop 09/20/19 at 08:59 Sodium Phosphate 15 mmol/Sodium Chloride 255 ml @ 62.5 mls/hr PRN 1X PRN IV SEE COMMENTS; Start 09/16/19 at 14:15 Sodium Phosphate 15 mmol/Sodium Chloride 255 ml @ 62.5 mls/hr PRN 1X PRN IV SEE COMMENTS; Start 09/16/19 at 14:15 Potassium Chloride/Water 100 ml @ 100 mls/hr PRN Q1HR PRN IV SEE COMMENTS; Start 09/16/19 at 14:30 Potassium Chloride/Water 100 ml @ 100 mls/hr PRN Q1HR PRN IV SEE COMMENTS; Start 09/16/19 at 14:30 Levetiracetam 500 mg/Dextrose 105 ml @ 420 mls/hr Q12HR IV Last administered on 09/19/19at 10:19; Start 09/16/19 at 21:00 Hydralazine HCl (Apresoline Inj) 10 mg PRN Q4HRS PRN IVP ELEVATED BP, SEE COMMENTS Last administered on 09/19/19at 09:09; Start 09/16/19 at 18:00; Stop 09/19/19 at 09:49; Status DC Magnesium Sulfate/ Dextrose 100 ml @ 100 mls/hr 1X ONCE IV ; Start 09/17/19 at 12:45; Stop 09/17/19 at 13:03; Status DC Albuterol Sulfate (Ventolin Neb Soln) 2.5 mg PRN Q6HRS PRN NEB SHORTNESS OF BREATH; Start 09/17/19 at 15:45 Budesonide (Pulmicort) 0.5 mg RTBID NEB Last administered on 09/19/19at 08:08; Start 09/17/19 at 20:00 Albuterol Sulfate (Ventolin Neb Soln) 2.5 mg Q6HRS NEB Last administered on 09/19/19at 08:08; Start 09/17/19 at 18:00 Fentanyl Citrate (Fentanyl 2ml Vial) 25 mcg PRN Q3HRS PRN IVP PAIN Last administered on 09/17/19at 17:23; Start 09/17/19 at 17:00 Hydralazine HCl (Apresoline Inj) 10 mg 1X ONCE IVP Last administered on 09/18/19at 12:18; Start 09/18/19 at 12:15; Stop 09/18/19 at 12:16; Status DC Hydralazine HCl (Apresoline Inj) 20 mg PRN Q4HRS PRN IVP ELEVATED BP, SEE COMMENTS Last administered on 09/18/19at 16:29; Start 09/18/19 at 12:15 Potassium Chloride/Water 100 ml @ 100 mls/hr Q1H IV Last administered on 09/19/19at 11:16; Start 09/19/19 at 11:00; Stop 09/19/19 at 12:59 Active Scripts Active Protonix (Pantoprazole Sodium) 40 Mg Tablet.dr 40 Mg PO DAILYAC PRN 30 Days Reported Amlodipine Besylate 5 Mg Tablet 5 Mg PO DAILY Proair Hfa Inhaler (Albuterol Sulfate) 8.5 Gm Hfa.aer.ad 1 Puff INH PRN Q4HRS PRN Symbicort 160-4.5 Mcg Inhaler (Budesonide/Formoterol Fumarate) 10.2 Gm Hfa.aer.ad 2 Puff IH BID Theophylline (Theophylline Anhydrous) 400 Mg Tablet.er 300 Mg PO BID Vitals/I & O Vital Sign - Last 24 Hours 09/18/19 09/18/19 09/18/19 09/18/19 12:00 12:11 12:18 12:36 Pulse 86 64 B/P (MAP) 157/94 (115) 181/90 Pulse Ox 92 94 O2 Delivery Room Air Room Air 09/18/19 09/18/19 09/18/19 09/18/19 13:15 14:16 14:55 16:20 Temp 98.0 98.0 Pulse 65 72 73 Resp 21 18 B/P (MAP) 154/78 (103) 164/88 (113) 168/80 (109) Pulse Ox 98 95 95 O2 Delivery Room Air Room Air Room Air Room Air 09/18/19 09/18/19 09/18/19 09/18/19 16:24 16:29 16:54 18:00 Pulse 61 64 66 65 Resp 20 18 B/P (MAP) 191/95 (127) 191/95 165/91 (115) 169/82 (111) Pulse Ox 97 95 O2 Delivery Room Air Room Air 09/18/19 09/18/19 09/18/19 09/18/19 19:00 19:48 20:00 20:00 Temp 97.6 97.6 Pulse 65 79 Resp 17 16 B/P (MAP) 130/65 (86) 173/101 (125) Pulse Ox 94 99 95 O2 Delivery Room Air Room Air Room Air Room Air 09/18/19 09/18/19 09/18/19 09/18/19 21:00 22:00 23:00 23:44 Pulse 67 67 79 Resp 20 24 18 B/P (MAP) 146/85 (105) 147/89 (108) 178/104 (128) Pulse Ox 96 91 95 O2 Delivery Room Air Room Air Room Air Room Air 09/18/19 09/19/19 09/19/19 09/19/19 23:53 00:00 01:00 03:00 Temp 97.5 97.5 Pulse 71 71 80 Resp 20 21 28 B/P (MAP) 167/87 (113) 183/104 (130) 174/102 (126) Pulse Ox 93 96 93 92 O2 Delivery Room Air Room Air Room Air Room Air 09/19/19 09/19/19 09/19/19 09/19/19 03:35 04:00 04:43 05:00 Temp 97.5 97.5 Pulse 79 81 90 Resp 24 21 B/P (MAP) 194/106 (135) 194/106 174/90 (118) Pulse Ox 93 90 O2 Delivery Room Air Room Air Room Air 09/19/19 09/19/19 09/19/19 09/19/19 06:00 08:00 08:08 09:09 Pulse 93 93 Resp 15 B/P (MAP) 160/76 (104) 188/99 Pulse Ox 90 98 O2 Delivery Room Air Nasal Cannula Nasal Cannula O2 Flow Rate 4.0 4.0 Intake and Output 09/18/19 09/18/19 09/19/19 15:00 23:00 07:00 Intake Total 205 ml 1956 ml 1211.2 ml Output Total 4725 ml 2900 ml 1125 ml Balance -4520 ml -944 ml 86.2 ml Hemodynamically unstable?: No Is patient in severe pain?: No Is NPO status required?: Yes MENDOZA NICOLE MD Sep 19, 2019 11:53
--- NOTE | 2019-09-19 13:05 | PDOC ---
PROGRESS NOTES Assessment Problems Medical Problems: (1) GI bleed Status: Acute Coarse movements, doubt seizures, more likely automatisms from withdrawal. Alcoholic dementia Left eye prior trauma Plan Current management Will stop levetiracetam EEG not necessary given improvement. Overall prognosis in this patient who refuses to stop drinking is very poor Objective Vital Signs Date Time Temp Pulse Resp B/P (MAP) Pulse Ox O2 Delivery O2 Flow Rate FiO2 09/19/19 12:50 Nasal Cannula 4.0 09/19/19 09:09 93 188/99 09/19/19 08:08 98 09/19/19 06:00 15 09/19/19 04:00 97.5 97.5 Intake and Output 09/19/19 07:00 Intake Total 3372.2 ml Output Total 8750 ml Balance -5377.8 ml IV Total 2621.2 ml Other 751 ml Output Urine Total 8750 ml PHYSICAL EXAM Extubated, alert, knows location, not date, follows simple commands Left pupil irregular, large, non reactive EOMI. CN: no focal findings. Muscle tone: normal. Muscle strength: 4/5 DTR: 2+ Plantar reflex: silent Gait: not examined in bed. Sensory exam: no abnormal findings. No cerebellar signs elicited. Review of Relevant I have reviewed the following items wali (where applicable) has been applied. Labs Laboratory Tests Test 09/18/19 08:40 09/19/19 04:30 White Blood Count 5.7 x10^3/uL (4.0-11.0) Red Blood Count 3.56 x10^6/uL (4.30-5.70) Hemoglobin 9.7 g/dL (13.0-17.5) Hematocrit 29.3 % (39.0-53.0) Mean Corpuscular Volume 82 fL (79-100) Mean Corpuscular Hemoglobin 27 pg (25-35) Mean Corpuscular Hemoglobin Concent 33 g/dL (31-37) Red Cell Distribution Width 17.6 % (11.5-14.5) Platelet Count 132 x10^3/uL (140-400) Neutrophils (%) (Auto) 76 % (31-73) Lymphocytes (%) (Auto) 9 % (24-48) Monocytes (%) (Auto) 12 % (0-9) Eosinophils (%) (Auto) 3 % (0-3) Basophils (%) (Auto) 1 % (0-3) Neutrophils # (Auto) 4.3 x10^3/uL (1.8-7.7) Lymphocytes # (Auto) 0.5 x10^3/uL (1.0-4.8) Monocytes # (Auto) 0.7 x10^3/uL (0.0-1.1) Eosinophils # (Auto) 0.1 x10^3/uL (0.0-0.7) Basophils # (Auto) 0.0 x10^3/uL (0.0-0.2) Sodium Level 140 mmol/L (136-145) 139 mmol/L (136-145) Potassium Level 3.5 mmol/L (3.5-5.1) 3.4 mmol/L (3.5-5.1) Chloride Level 103 mmol/L (98-107) 103 mmol/L (98-107) Carbon Dioxide Level 28 mmol/L (21-32) 26 mmol/L (21-32) Anion Gap 9 (6-14) 10 (6-14) Blood Urea Nitrogen 6 mg/dL (8-26) 6 mg/dL (8-26) Creatinine 0.6 mg/dL (0.7-1.3) 0.7 mg/dL (0.7-1.3) Estimated GFR (Cockcroft-Gault) 147.8 123.7 Glucose Level 132 mg/dL (70-99) 113 mg/dL (70-99) Calcium Level 8.1 mg/dL (8.5-10.1) 8.5 mg/dL (8.5-10.1) Magnesium Level 1.7 mg/dL (1.8-2.4) 1.7 mg/dL (1.8-2.4) Laboratory Tests Test 09/19/19 04:30 Sodium Level 139 mmol/L (136-145) Potassium Level 3.4 mmol/L (3.5-5.1) Chloride Level 103 mmol/L (98-107) Carbon Dioxide Level 26 mmol/L (21-32) Anion Gap 10 (6-14) Blood Urea Nitrogen 6 mg/dL (8-26) Creatinine 0.7 mg/dL (0.7-1.3) Estimated GFR (Cockcroft-Gault) 123.7 Glucose Level 113 mg/dL (70-99) Calcium Level 8.5 mg/dL (8.5-10.1) Magnesium Level 1.7 mg/dL (1.8-2.4) Medications Current Medications Ondansetron HCl (Zofran) 4 mg STK-MED ONCE .ROUTE ; Start 09/14/19 at 17:54; Stop 09/14/19 at 17:54; Status DC Lorazepam (Ativan Inj) 2 mg STK-MED ONCE .ROUTE ; Start 09/14/19 at 17:55; Stop 09/14/19 at 17:55; Status DC Lorazepam (Ativan Inj) 2 mg 1X ONCE IVP Last administered on 09/14/19at 18:05; Start 09/14/19 at 18:00; Stop 09/14/19 at 18:09; Status DC Ondansetron HCl (Zofran) 4 mg 1X ONCE IVP Last administered on 09/14/19at 18:04; Start 09/14/19 at 18:00; Stop 09/14/19 at 18:09; Status DC Pantoprazole Sodium (PROTONIX VIAL for IV PUSH) 40 mg 1X ONCE IVP Last administered on 09/14/19at 18:43; Start 09/14/19 at 18:00; Stop 09/14/19 at 18:09; Status DC Sodium Chloride 1,000 ml @ 1,000 mls/hr 1X ONCE IV Last administered on 09/14/19at 19:10; Start 09/14/19 at 18:00; Stop 09/14/19 at 19:00; Status DC Multivitamins 10 ml/Thiamine HCl 100 mg/Folic Acid 1 mg/Sodium Chloride 1,011.2 ml @ 100 mls/ hr DAILY IV Last administered on 09/18/19at 09:37; Start 09/14/19 at 18:30; Stop 09/18/19 at 19:07; Status DC Lorazepam (Ativan Inj) 2 mg PRN Q1HR PRN IV For CIWA 8-14 Last administered on 09/19/19at 12:02; Start 09/14/19 at 18:30 Lorazepam (Ativan Inj) 4 mg PRN Q1HR PRN IV For CIWA 15 or greater Last administered on 09/19/19at 08:38; Start 09/14/19 at 18:30 Pantoprazole Sodium 80 mg/ Sodium Chloride 100 ml @ 10 mls/hr 1X ONCE IV Last administered on 09/14/19at 18:44; Start 09/14/19 at 18:30; Stop 09/15/19 at 04:29; Status DC Iohexol (Omnipaque 300 Mg/ml) 75 ml 1X ONCE IV ; Start 09/14/19 at 19:00; Stop 09/14/19 at 19:01; Status DC Info (CONTRAST GIVEN -- Rx MONITORING) 1 each PRN DAILY PRN MC SEE COMMENTS; Start 09/14/19 at 19:00; Stop 09/16/19 at 18:59; Status DC Ondansetron HCl (Zofran) 4 mg PRN Q8HRS PRN IV NAUSEA/VOMITING; Start 09/14/19 at 19:30; Stop 09/15/19 at 19:29; Status DC Sodium Chloride 1,000 ml @ 125 mls/hr Q8H IV Last administered on 09/15/19at 15:39; Start 09/14/19 at 19:19; Stop 09/15/19 at 19:18; Status DC Etomidate (Amidate) 20 mg STK-MED ONCE IV ; Start 09/14/19 at 21:22; Stop 09/14/19 at 21:22; Status DC Lidocaine HCl (Lidocaine Pf 2% Vial) 5 ml STK-MED ONCE .ROUTE ; Start 09/14/19 at 21:22; Stop 09/14/19 at 21:22; Status DC Rocuronium [place] (Zemuron) 50 mg STK-MED ONCE .ROUTE ; Start 09/14/19 at 21:23; Stop 09/14/19 at 21:23; Status DC Phenylephrine HCl (PHENYLEPHRINE in 0.9% NACL PF) 1 mg STK-MED ONCE IV ; Start 09/14/19 at 21:24; Stop 09/14/19 at 21:24; Status DC Propofol 100 ml @ 0 mls/hr CONT PRN IV SEE PROTOCOL Last administered on 09/17/19at 03:32; Start 09/14/19 at 22:30 Fentanyl Citrate (Fentanyl 2ml Vial) 25 mcg PRN Q1HR PRN IV SEE COMMENTS; Start 09/14/19 at 22:30; Stop 09/15/19 at 06:26; Status DC Fentanyl Citrate (Fentanyl 2ml Vial) 50 mcg PRN Q1HR PRN IV SEE COMMENTS; Start 09/14/19 at 22:30; Stop 09/15/19 at 06:26; Status DC Epinephrine HCl (EPINEPHrine SYRINGE) 1 mg STK-MED ONCE .ROUTE ; Start 09/14/19 at 23:19; Stop 09/14/19 at 23:20; Status DC Pantoprazole Sodium (PROTONIX VIAL for IV PUSH) 40 mg BID IVP Last administered on 09/19/19at 09:08; Start 09/15/19 at 09:00 Epinephrine HCl (EPINEPHrine SYRINGE) 1 mg STK-MED ONCE IV Last administered on 09/14/19at 23:00; Start 09/14/19 at 23:00; Stop 09/14/19 at 23:29; Status DC Fentanyl Citrate 30 ml @ 0 mls/hr CONT PRN IV SEE PROTOCOL Last administered on 09/16/19at 20:58; Start 09/14/19 at 23:45; Stop 09/17/19 at 16:28; Status DC Midazolam HCl 50 mg/Sodium Chloride 50 ml @ 0 mls/hr CONT PRN IV SEE PROTOCOL Last administered on 09/15/19at 22:10; Start 09/14/19 at 23:45; Stop 09/17/19 at 16:28; Status DC Sodium Bicarbonate (Sodium Bicarb Adult 8.4% Syr) 50 meq 1X ONCE IV Last administered on 09/15/19at 01:25; Start 09/15/19 at 01:00; Stop 09/15/19 at 01:01; Status DC Sodium Chloride 1,000 ml @ 50 mls/hr Q20H IV Last administered on 09/19/19at 03:09; Start 09/16/19 at 02:00 Dexmedetomidine HCl 400 mcg/ Sodium Chloride 100 ml @ 0 mls/hr CONT PRN IV AGITATION Last administered on 09/19/19at 10:20; Start 09/16/19 at 08:30 Sodium Chloride 500 ml @ 500 mls/hr 1X PRN PRN IV HYPOTENTION; Start 09/16/19 at 08:30 Atropine Sulfate (ATROPINE 0.5mg SYRINGE) 0.5 mg PRN Q5MIN PRN IV SEE COMMENTS; Start 09/16/19 at 08:30 Amino Acids/ Glycerin/ Electrolytes 1,000 ml @ 80 mls/hr [id number] IV ; Start 09/16/19 at 10:00; Status UNV Ceftriaxone Sodium (Rocephin) 1 gm Q24H IVP Last administered on 09/19/19at 10:19; Start 09/16/19 at 11:00 Amino Acids/ Electrolytes/ Dextrose 1,000 ml @ 80 mls/hr [id number] IV Last administered on 09/18/19at 21:49; Start 09/16/19 at 10:15 Magnesium Sulfate/ Dextrose 100 ml @ 100 mls/hr 1X ONCE IV Last administered on 09/16/19at 12:10; Start 09/16/19 at 11:45; Stop 09/16/19 at 12:44; Status DC Potassium Chloride/Water 100 ml @ 100 mls/hr Q1H IV ; Start 09/16/19 at 14:15; Stop 09/16/19 at 14:16; Status DC Potassium Chloride/Water 100 ml @ 100 mls/hr Q1H IV ; Start 09/16/19 at 14:15; Stop 09/16/19 at 14:17; Status DC Magnesium Sulfate 100 ml @ 50 mls/hr DAILY IV Last administered on 09/19/19at 09:10; Start 09/17/19 at 09:00; Stop 09/20/19 at 08:59 Sodium Phosphate 15 mmol/Sodium Chloride 255 ml @ 62.5 mls/hr PRN 1X PRN IV SEE COMMENTS; Start 09/16/19 at 14:15 Sodium Phosphate 15 mmol/Sodium Chloride 255 ml @ 62.5 mls/hr PRN 1X PRN IV SEE COMMENTS; Start 09/16/19 at 14:15 Potassium Chloride/Water 100 ml @ 100 mls/hr PRN Q1HR PRN IV SEE COMMENTS; Start 09/16/19 at 14:30 Potassium Chloride/Water 100 ml @ 100 mls/hr PRN Q1HR PRN IV SEE COMMENTS; Start 09/16/19 at 14:30 Levetiracetam 500 mg/Dextrose 105 ml @ 420 mls/hr Q12HR IV Last administered on 09/19/19at 10:19; Start 09/16/19 at 21:00 Hydralazine HCl (Apresoline Inj) 10 mg PRN Q4HRS PRN IVP ELEVATED BP, SEE COMMENTS Last administered on 09/19/19at 09:09; Start 09/16/19 at 18:00; Stop 09/19/19 at 09:49; Status DC Magnesium Sulfate/ Dextrose 100 ml @ 100 mls/hr 1X ONCE IV ; Start 09/17/19 at 12:45; Stop 09/17/19 at 13:03; Status DC Albuterol Sulfate (Ventolin Neb Soln) 2.5 mg PRN Q6HRS PRN NEB SHORTNESS OF BREATH; Start 09/17/19 at 15:45 Budesonide (Pulmicort) 0.5 mg RTBID NEB Last administered on 09/19/19at 08:08; Start 09/17/19 at 20:00 Albuterol Sulfate (Ventolin Neb Soln) 2.5 mg Q6HRS NEB Last administered on 09/19/19at 12:48; Start 09/17/19 at 18:00 Fentanyl Citrate (Fentanyl 2ml Vial) 25 mcg PRN Q3HRS PRN IVP PAIN Last administered on 09/17/19at 17:23; Start 09/17/19 at 17:00 Hydralazine HCl (Apresoline Inj) 10 mg 1X ONCE IVP Last administered on 09/18/19at 12:18; Start 09/18/19 at 12:15; Stop 09/18/19 at 12:16; Status DC Hydralazine HCl (Apresoline Inj) 20 mg PRN Q4HRS PRN IVP ELEVATED BP, SEE COMMENTS Last administered on 09/18/19at 16:29; Start 09/18/19 at 12:15 Potassium Chloride/Water 100 ml @ 100 mls/hr Q1H IV Last administered on 09/19/19at 11:16; Start 09/19/19 at 11:00; Stop 09/19/19 at 12:59 Active Scripts Active Protonix (Pantoprazole Sodium) 40 Mg Tablet.dr 40 Mg PO DAILYAC PRN 30 Days Reported Amlodipine Besylate 5 Mg Tablet 5 Mg PO DAILY Proair Hfa Inhaler (Albuterol Sulfate) 8.5 Gm Hfa.aer.ad 1 Puff INH PRN Q4HRS PRN Symbicort 160-4.5 Mcg Inhaler (Budesonide/Formoterol Fumarate) 10.2 Gm Hfa.aer.ad 2 Puff IH BID Theophylline (Theophylline Anhydrous) 400 Mg Tablet.er 300 Mg PO BID Vitals/I & O Vital Sign - Last 24 Hours 09/18/19 09/18/19 09/18/19 09/18/19 13:15 14:16 14:55 16:20 Temp 98.0 98.0 Pulse 65 72 73 Resp 21 18 B/P (MAP) 154/78 (103) 164/88 (113) 168/80 (109) Pulse Ox 98 95 95 O2 Delivery Room Air Room Air Room Air Room Air 09/18/19 09/18/19 09/18/19 09/18/19 16:24 16:29 16:54 18:00 Pulse 61 64 66 65 Resp 20 18 B/P (MAP) 191/95 (127) 191/95 165/91 (115) 169/82 (111) Pulse Ox 97 95 O2 Delivery Room Air Room Air 09/18/19 09/18/19 09/18/19 09/18/19 19:00 19:48 20:00 20:00 Temp 97.6 97.6 Pulse 65 79 Resp 17 16 B/P (MAP) 130/65 (86) 173/101 (125) Pulse Ox 94 99 95 O2 Delivery Room Air Room Air Room Air Room Air 09/18/19 09/18/19 09/18/19 09/18/19 21:00 22:00 23:00 23:44 Pulse 67 67 79 Resp 20 24 18 B/P (MAP) 146/85 (105) 147/89 (108) 178/104 (128) Pulse Ox 96 91 95 O2 Delivery Room Air Room Air Room Air Room Air 09/18/19 09/19/19 09/19/19 09/19/19 23:53 00:00 01:00 03:00 Temp 97.5 97.5 Pulse 71 71 80 Resp 20 21 28 B/P (MAP) 167/87 (113) 183/104 (130) 174/102 (126) Pulse Ox 93 96 93 92 O2 Delivery Room Air Room Air Room Air Room Air 09/19/19 09/19/19 09/19/19 09/19/19 03:35 04:00 04:43 05:00 Temp 97.5 97.5 Pulse 79 81 90 Resp 24 21 B/P (MAP) 194/106 (135) 194/106 174/90 (118) Pulse Ox 93 90 O2 Delivery Room Air Room Air Room Air 09/19/19 09/19/19 09/19/19 09/19/19 06:00 08:00 08:08 09:09 Pulse 93 93 Resp 15 B/P (MAP) 160/76 (104) 188/99 Pulse Ox 90 98 O2 Delivery Room Air Nasal Cannula Nasal Cannula O2 Flow Rate 4.0 4.0 09/19/19 12:50 O2 Delivery Nasal Cannula O2 Flow Rate 4.0 Intake and Output 09/18/19 09/18/19 09/19/19 15:00 23:00 07:00 Intake Total 205 ml 1956 ml 1211.2 ml Output Total 4725 ml 2900 ml 1125 ml Balance -4520 ml -944 ml 86.2 ml JUANCARLOS CULP MD Sep 19, 2019 13:05
[2019-09-19] MEDS: fentaNYL PF VIAL 100 MCG/2 ML VIAL IVP PRN ×2 (14:46→22:31)
[2019-09-19] MEDS: AA 4.25 %/CALCIUM/LYTES/D5W 1,000 ML IV SCH (14:46)
[2019-09-19] MEDS: HALOPERIDOL LACTATE 5 MG/ML VIAL. IVP PRN ×2 (15:43→22:00)
[2019-09-20] VITALS (23 sets, daily range): BP systolic 84–255; BP diastolic 40–115
[2019-09-20 00:10] LABS: BASE EXCESS ABG -2 mmol/L (-3-3); HCO3 ABG 20 mmol/L (21-28); PCO2 ABG 28 mmHg (35-46); PO2 ABG 79 mmHg (75-108); SAT O2 ABG 95 % (92-99)
[2019-09-20 00:11] LABS: FIO2 ABG 28
[2019-09-20] MEDS: hydrALAZINE 20 MG/ML VIAL. IVP PRN ×3 (00:16→08:22)
[2019-09-20] MEDS: IV NORMAL SALINE 1000ML BAG 1,000 ML IV SCH ×2 (00:17→20:42)
[2019-09-20] MEDS: AA 4.25 %/CALCIUM/LYTES/D5W 1,000 ML IV SCH ×2 (01:38→15:27)
[2019-09-20] MEDS: DEXMEDETOMIDINE 400 MCG in IV NORMAL SALINE 100ML 96 ML IV PRN ×4 (01:38→23:05)
--- NOTE | 2019-09-20 03:06 | NUR ---
NURSING NOTE Pt continues to be restless throughout shift. Pt putting legs over the rails and trying to get OOB. Pt able to be redirected somewhat. Pt gets anxious and starts shaking, but stops shaking when he calms down. Pt was given a precedex bolus by DRY CLEANING COUNTER CLERK to help with restlessness and tachypnea, and placed on a simple mask to see if that would help. Pt continues to try to pull oxygen mask off intermittently. Will monitor.
--- NOTE | 2019-09-20 04:00 | NUR ---
NURSING NOTE Attempted to bathe pt d/t drenched in sweat. During bath pt became tachypnic, RR in the 40s. Bath stopped, Ativan given. ICU charge nurse, Bernie, came in to assist with pt. Pt continues of simple mask @6L/NC. ICU charge also gave a bolus of precedex. Pt turned on side, 02 sat @ 96%, RR at 39. BP elevated at 255/115, will recheck when pt calms down. ICU charge nurse recommends to let meds take effect and let pt rest. Will monitor.
--- NOTE | 2019-09-20 05:00 | NUR ---
NURSING NOTE RT and ICU account support analyst Jessie evaluating pt at bedside. Attempted NTS suction, but pt nasal passage too dry. Pt placed on AP neb at 50% Fi02 for moisture and to help break up dry secretions that pt is unable to cough up. RR still elevated in 30s. Will all continue to monitor.
[2019-09-20] MEDS: HALOPERIDOL LACTATE 5 MG/ML VIAL. IVP PRN (05:25)
[2019-09-20 05:46] LABS: BASO # 0.1 x10^3/uL (0.0-0.2); BASO % 1 % (0-3); EOS # 0.1 x10^3/uL (0.0-0.7); EOS % 1 % (0-3); HEMATOCRIT 31.7 % (39.0-53.0); HEMOGLOBIN 10.6 g/dL (13.0-17.5); LYMPH # 0.5 x10^3/uL (1.0-4.8); LYMPH % 5 % (24-48); MEAN CORPUSCULAR HEMOGLOBIN 27 pg (25-35); MEAN CORPUSCULAR HGB CONC 34 g/dL (31-37); MEAN CORPUSCULAR VOLUME 81 fL (79-100); MONO # 1.5 x10^3/uL (0.0-1.1); MONO % 16 % (0-9); NEUT # 7.3 x10^3/uL (1.8-7.7); NEUT % 77 % (31-73); PLATELET COUNT 236 x10^3/uL (140-400); RED BLOOD COUNT 3.92 x10^6/uL (4.30-5.70); RED CELL DISTRIBUTION WIDTH 17.8 % (11.5-14.5); WHITE BLOOD COUNT 9.6 x10^3/uL (4.0-11.0)
[2019-09-20 08:09] LABS: ALBUMIN 2.7 g/dL (3.4-5.0); ALBUMIN/GLOBULIN RATIO 0.7 (1.0-1.7); CALCIUM 8.4 mg/dL (8.5-10.1); CREATININE 0.7 mg/dL (0.7-1.3); GFR 123.7; MAGNESIUM 1.8 mg/dL (1.8-2.4); POTASSIUM 3.8 mmol/L (3.5-5.1); TOTAL BILIRUBIN 0.4 mg/dL (0.2-1.0); TOTAL PROTEIN 6.5 g/dL (6.4-8.2)
[2019-09-20 08:34] LABS: BASE EXCESS ABG -3 mmol/L (-3-3); HCO3 ABG 24 mmol/L (21-28); PCO2 ABG 47 mmHg (35-46); PO2 ABG 82 mmHg (75-108); SAT O2 ABG 94 % (92-99)
[2019-09-20] MEDS: fentaNYL PF VIAL 100 MCG/2 ML VIAL IVP PRN (08:44)
--- NOTE | 2019-09-20 08:53 | RAD ---
CHEST AP ONLY, KUB History: Respiratory failure. Post code. Nasogastric tube placement. Technique: AP view the chest and supine view the abdomen. Comparison: September 18, 2019 Findings: Interval intubation with endotracheal tube 3.5 cm above the osvaldo. Interval placement of enteric tube with tip projecting over the distal gastric body. Patchy bibasilar opacities. Unchanged heart size. No pneumothorax. Stable right PICC. Small right pleural effusion. Nonobstructed bowel gas pattern. Minimal small bowel gas. Air scattered throughout portions of the colon Impression: 1. Interval intubation and placement of enteric tube. 2. Patchy bibasilar opacities, unchanged. 3. Small right pleural effusion. Electronically signed by: Gaetano May DO (09/20/2019 8:50 AM) [id number]
--- NOTE | 2019-09-20 09:03 | NUR ---
POST JACKI PETERS NURSING NOTE: This RN was at bedside doing head to toe assessment. Pt very Tachypnic, profusely sweating,Temperature 99.3 axillary. Pt lethargic, does not answer questions, rhonci upon auscultation and stridor sound coming from upper airway. CIWA protocol in place and 4mg Ativan was given about 0800. Around 0813 pt began to desat, this RN attempted jaw thrust with no improvement on oxygen saturation. RT Salguero called to bedside to bag pt. Bagging pt was difficult due to pt not moving air very well. Pt began to santos, oxygen in the teens. Anesthesia paged STAT to bedside to intubate pt. Jacki peters was called at 0813, pt PEA on monitor. See jacki peters sheet. Pt intubated at [address] Foster, tube placement verified and tube secured. Upon bagging pt, pt coughed up large dark brown plug into tube. OG placed and Xray confirmed placement of OG and ET tube. Sedation medications were administered. Around 0900 this RN attempted to call Sera @ [phone] and phone is off at this time. Attempt to call Tamara @ [phone] and phone rang and then hung up on this RN. Will update family on pt condition when they arrive to hospital.
[2019-09-20] MEDS: BUDESONIDE 0.5 MG/2 ML NEBU. NEB SCH ×2 (09:25→19:15)
[2019-09-20] MEDS: ALBUTEROL SULFATE 2.5 MG/3 ML NEBU. NEB SCH ×4 (09:25→23:47)
--- NOTE | 2019-09-20 09:33 | PDOC ---
Objective: Objective: D/w nurse - tachypneic, got Ativan, de-sat - coded, re-intubated - dark material from OG, wonders about varices on EGD. Reviewed EGD note - no varices mentioned. Hgb has been stable/improved. Vital Signs: Vital Signs Date Time Temp Pulse Resp B/P (MAP) Pulse Ox O2 Delivery O2 Flow Rate FiO2 09/20/19 09:24 99 Ventilator 09/20/19 08:22 122 206/91 09/20/19 05:15 33 15.0 09/20/19 05:00 97.8 97.8 Labs: Laboratory Tests Test 09/20/19 00:00 09/20/19 05:30 O2 Saturation 95 % Arterial Blood pH 7.48 Arterial Blood pCO2 at Patient Temp 28 mmHg Arterial Blood pO2 at Patient Temp 79 mmHg Arterial Blood HCO3 20 mmol/L Arterial Blood Base Excess -2 mmol/L FiO2 28 White Blood Count 9.6 x10^3/uL Red Blood Count 3.92 x10^6/uL Hemoglobin 10.6 g/dL Hematocrit 31.7 % Mean Corpuscular Volume 81 fL Mean Corpuscular Hemoglobin 27 pg Mean Corpuscular Hemoglobin Concent 34 g/dL Red Cell Distribution Width 17.8 % Platelet Count 236 x10^3/uL Neutrophils (%) (Auto) 77 % Lymphocytes (%) (Auto) 5 % Monocytes (%) (Auto) 16 % Eosinophils (%) (Auto) 1 % Basophils (%) (Auto) 1 % Neutrophils # (Auto) 7.3 x10^3/uL Lymphocytes # (Auto) 0.5 x10^3/uL Monocytes # (Auto) 1.5 x10^3/uL Eosinophils # (Auto) 0.1 x10^3/uL Basophils # (Auto) 0.1 x10^3/uL Sodium Level 137 mmol/L Potassium Level 3.8 mmol/L Chloride Level 101 mmol/L Carbon Dioxide Level 26 mmol/L Anion Gap 10 Blood Urea Nitrogen 9 mg/dL Creatinine 0.7 mg/dL Estimated GFR (Cockcroft-Gault) 123.7 BUN/Creatinine Ratio 13 Glucose Level 147 mg/dL Calcium Level 8.4 mg/dL Magnesium Level 1.8 mg/dL Total Bilirubin 0.4 mg/dL Aspartate Amino Transf (AST/SGOT) 41 U/L Alanine Aminotransferase (ALT/SGPT) 70 U/L Alkaline Phosphatase 58 U/L Total Protein 6.5 g/dL Albumin 2.7 g/dL Albumin/Globulin Ratio 0.7 Imaging: CXR, KUB 09/19 Impression: 1. Interval intubation and placement of enteric tube. 2. Patchy bibasilar opacities, unchanged. 3. Small right pleural effusion. PE: GEN: multiple staff members in room - RT, x-ray, etc. LUNGS: intubated HEART: tachycardic on monitor ABD: dried brown material on bedding from OG NEURO/PSYCH: sedated A/P: S/p code Alcohol abuse/withdrawal Hematemesis - no recurrence since admission, dark brown material from OG this morning Anemia (stable), thrombocytopenia, hypomagnesemia (improved - 1.4 to 1.7), elevated AST and ALT (better) Erosive esophagitis, DU - s/p endotherapy 09/15/19 - on IV PPI Psych issues, h/o recurrent pancreatitis, hepatic steatosis -- Reviewed this morning's events w/ Dr. Rogers. Continue IV PPI, monitor Hgb. Hemodynamically unstable?: Yes Is patient in severe pain?: No Is NPO status required?: Yes MESSI GORE Sep 20, 2019 09:33
[2019-09-20 09:37] LABS: FIO2 ABG 50
[2019-09-20] MEDS: PANTOPRAZOLE IV PUSH 40 MG VIAL. IVP SCH ×2 (10:04→20:42)
[2019-09-20 10:18] LABS: BASE EXCESS ABG -1 mmol/L (-3-3); HCO3 ABG 23 mmol/L (21-28); PCO2 ABG 36 mmHg (35-46); PO2 ABG 183 mmHg (75-108); SAT O2 ABG 99 % (92-99)
[2019-09-20] MEDS: MIDAZOLAM HCL 50 MG in IV NORMAL SALINE 50ML 50 ML IV PRN ×5 (10:18→23:02)
[2019-09-20 10:21] LABS: FIO2 ABG 60
--- NOTE | 2019-09-20 11:07 | EKG ---
[facility] [address] [place] [address] Test Date: 2019-09-20 Test Time: 10:02:41 Pat Name: SHAHEEN OLIVEIRA Department: Room: 105 Gender: M Clinical Appeals Reviewer: : 1975 Requested By: MENDOZA NICOLE Order Number: [id number] Reading MD: Measurements Intervals [place] Rate: 84 P: 44 IA: 148 QRS: 28 QRSD: 86 T: 16 QT: 376 QTc: 448 Interpretive Statements SINUS RHYTHM VENTRICULAR PREMATURE COMPLEX(ES) ABNORMAL ECG RI6.02 No previous ECG available for comparison
[2019-09-20] MEDS: cefTRIAXone IV Push 1 GM VIAL. IVP SCH (11:24)
--- NOTE | 2019-09-20 11:33 | PDOC ---
[employer] PROGRESS NOTE Chief Complaint Chief Complaint 0. Respiratory failure on the vent 1. acute UGI BLEED 2. severe diffuse hepatic steatosis. 3. Erosive esophagitis, epinephrine injection duodenal ulcer in the first and second portions of duodenum with a visible vessel, status post epinephrine injection. 4. polysubstance abuse, ALCOHOL, COCAINE, THC 5. ELECTROLYTE IMBALANCE 6. MALIGNANT HTN History of Present Illness History of Present Illness [id number] Patient seen and examined in the ICU He is intubated Assist-control/16/500/60% FiO2 Chart reviewed Discussed with RN Vitals/I&O Vitals/I&O: Vital Signs Date Time Temp Pulse Resp B/P (MAP) Pulse Ox O2 Delivery O2 Flow Rate FiO2 09/20/19 11:00 75 18 84/50 (61) 100 Ventilator 09/20/19 08:00 99.3 10.0 99.3 I & O 09/19/19 09/19/19 09/20/19 15:00 23:00 07:00 Intake Total 1985 ml 0 ml 2254 ml Output Total 1750 ml 2800 ml 990 ml Balance 235 ml -2800 ml 1264 ml Physical Exam Physical Exam: SEDATED ON VENT General: No acute distress Heart: Regular rate, Normal S1, Normal S2 Lungs: Clear Abdomen: Normal bowel sounds, Soft, No tenderness Extremities: No cyanosis, No edema Labs Labs: Laboratory Tests Test 09/20/19 00:00 09/20/19 05:30 09/20/19 08:00 09/20/19 08:50 O2 Saturation 95 % (92-99) 94 % (92-99) Arterial Blood pH 7.48 (7.35-7.45) 7.32 (7.35-7.45) Arterial Blood pCO2 at Patient Temp 28 mmHg (35-46) 47 mmHg (35-46) Arterial Blood pO2 at Patient Temp 79 mmHg (75-108) 82 mmHg (75-108) Arterial Blood HCO3 20 mmol/L (21-28) 24 mmol/L (21-28) Arterial Blood Base Excess -2 mmol/L (-3-3) -3 mmol/L (-3-3) FiO2 28 50 White Blood Count 9.6 x10^3/uL (4.0-11.0) Red Blood Count 3.92 x10^6/uL (4.30-5.70) Hemoglobin 10.6 g/dL (13.0-17.5) Hematocrit 31.7 % (39.0-53.0) Mean Corpuscular Volume 81 fL (79-100) Mean Corpuscular Hemoglobin 27 pg (25-35) Mean Corpuscular Hemoglobin Concent 34 g/dL (31-37) Red Cell Distribution Width 17.8 % (11.5-14.5) Platelet Count 236 x10^3/uL (140-400) Neutrophils (%) (Auto) 77 % (31-73) Lymphocytes (%) (Auto) 5 % (24-48) Monocytes (%) (Auto) 16 % (0-9) Eosinophils (%) (Auto) 1 % (0-3) Basophils (%) (Auto) 1 % (0-3) Neutrophils # (Auto) 7.3 x10^3/uL (1.8-7.7) Lymphocytes # (Auto) 0.5 x10^3/uL (1.0-4.8) Monocytes # (Auto) 1.5 x10^3/uL (0.0-1.1) Eosinophils # (Auto) 0.1 x10^3/uL (0.0-0.7) Basophils # (Auto) 0.1 x10^3/uL (0.0-0.2) Sodium Level 137 mmol/L (136-145) Potassium Level 3.8 mmol/L (3.5-5.1) Chloride Level 101 mmol/L (98-107) Carbon Dioxide Level 26 mmol/L (21-32) Anion Gap 10 (6-14) Blood Urea Nitrogen 9 mg/dL (8-26) Creatinine 0.7 mg/dL (0.7-1.3) Estimated GFR (Cockcroft-Gault) 123.7 BUN/Creatinine Ratio 13 (6-20) Glucose Level 147 mg/dL (70-99) Calcium Level 8.4 mg/dL (8.5-10.1) Magnesium Level 1.8 mg/dL (1.8-2.4) Total Bilirubin 0.4 mg/dL (0.2-1.0) Aspartate Amino Transf (AST/SGOT) 41 U/L (15-37) Alanine Aminotransferase (ALT/SGPT) 70 U/L (16-63) Alkaline Phosphatase 58 U/L (46-116) Total Protein 6.5 g/dL (6.4-8.2) Albumin 2.7 g/dL (3.4-5.0) Albumin/Globulin Ratio 0.7 (1.0-1.7) Lactic Acid Level 1.6 mmol/L (0.4-2.0) Test 09/20/19 09:50 O2 Saturation 99 % (92-99) Arterial Blood pH 7.43 (7.35-7.45) Arterial Blood pCO2 at Patient Temp 36 mmHg (35-46) Arterial Blood pO2 at Patient Temp 183 mmHg (75-108) Arterial Blood pO2 (Temp corrected) mmHg Arterial Blood HCO3 23 mmol/L (21-28) Arterial Blood Base Excess -1 mmol/L (-3-3) FiO2 60 Review of Systems Review of Systems: Unable to obtain Assessment and Plan Assessmemt and Plan Problems Medical Problems: (1) GI bleed Status: Acute IMPRESSION: 1. acute UGI BLEED 2. severe diffuse hepatic steatosis. 3. Erosive esophagitis, epinephrine injection duodenal ulcer in the first and second portions of duodenum with a visible vessel, status post epinephrine injection. 4. polysubstance abuse, ALCOHOL, COCAINE, THC 5. ELECTROLYTE IMBALANCE 6. MALIGNANT HTN PLAN ICU monitoring GI following When necessary transfusions alcohol withdrawal protocol SCD'S pat consult VENT SUPPORT D/C PROTONIX DRIP replete lytes IV HYDRALAZINE 10-20 MG PRN BP SUPPORT stop levetiracetam EEG not necessary with improvement. He is critically ill Total time 33 minutes Comment Review of Relevant I have reviewed the following items wali (where applicable) has been applied. Medications: Current Medications Medications (Trade) Dose Ordered Sig/Wil Route PRN Reason Start Time Stop Time Status Last Admin Dose Admin Haloperidol Lactate (Haldol Inj) 2 mg PRN Q6HRS PRN IVP AGITATION 09/19/19 15:00 09/20/19 05:25 Fentanyl Citrate 30 ml @ 0 mls/hr CONT PRN IV SEE PROTOCOL 09/20/19 08:45 09/20/19 11:19 Midazolam HCl 50 mg/Sodium Chloride 50 ml @ 0 mls/hr CONT PRN IV SEE PROTOCOL 09/20/19 08:45 09/20/19 11:29 Hemodynamically unstable?: Yes Is patient in severe pain?: No Is NPO status required?: Yes MAY FROST III DO Sep 20, 2019 11:33
--- NOTE | 2019-09-20 12:00 | NUR ---
Mother Tamara called back and updated on pt condition.
--- NOTE | 2019-09-20 12:59 | PDOC ---
PULMONARY PROGRESS NOTES Subjective Pt. is extubated 09/15, re-intubated early am 09/19 due to DT/ increase work of breathing Vitals Vital Signs Date Time Temp Pulse Resp B/P (MAP) Pulse Ox O2 Delivery O2 Flow Rate FiO2 09/20/19 12:00 Mechanical Ventilator 09/20/19 11:00 75 18 84/50 (61) 100 09/20/19 08:00 99.3 10.0 99.3 Lungs: Other (rhonchi) Cardiovascular: S1, S2 Abdomen: Soft Extremities: No Edema Skin: Warm Labs Laboratory Tests Test 09/19/19 04:30 09/20/19 00:00 09/20/19 05:30 09/20/19 08:00 Sodium Level 139 mmol/L (136-145) 137 mmol/L (136-145) Potassium Level 3.4 mmol/L (3.5-5.1) 3.8 mmol/L (3.5-5.1) Chloride Level 103 mmol/L (98-107) 101 mmol/L (98-107) Carbon Dioxide Level 26 mmol/L (21-32) 26 mmol/L (21-32) Anion Gap 10 (6-14) 10 (6-14) Blood Urea Nitrogen 6 mg/dL (8-26) 9 mg/dL (8-26) Creatinine 0.7 mg/dL (0.7-1.3) 0.7 mg/dL (0.7-1.3) Estimated GFR (Cockcroft-Gault) 123.7 123.7 Glucose Level 113 mg/dL (70-99) 147 mg/dL (70-99) Calcium Level 8.5 mg/dL (8.5-10.1) 8.4 mg/dL (8.5-10.1) Magnesium Level 1.7 mg/dL (1.8-2.4) 1.8 mg/dL (1.8-2.4) O2 Saturation 95 % (92-99) 94 % (92-99) Arterial Blood pH 7.48 (7.35-7.45) 7.32 (7.35-7.45) Arterial Blood pCO2 at Patient Temp 28 mmHg (35-46) 47 mmHg (35-46) Arterial Blood pO2 at Patient Temp 79 mmHg (75-108) 82 mmHg (75-108) Arterial Blood HCO3 20 mmol/L (21-28) 24 mmol/L (21-28) Arterial Blood Base Excess -2 mmol/L (-3-3) -3 mmol/L (-3-3) FiO2 28 50 White Blood Count 9.6 x10^3/uL (4.0-11.0) Red Blood Count 3.92 x10^6/uL (4.30-5.70) Hemoglobin 10.6 g/dL (13.0-17.5) Hematocrit 31.7 % (39.0-53.0) Mean Corpuscular Volume 81 fL (79-100) Mean Corpuscular Hemoglobin 27 pg (25-35) Mean Corpuscular Hemoglobin Concent 34 g/dL (31-37) Red Cell Distribution Width 17.8 % (11.5-14.5) Platelet Count 236 x10^3/uL (140-400) Neutrophils (%) (Auto) 77 % (31-73) Lymphocytes (%) (Auto) 5 % (24-48) Monocytes (%) (Auto) 16 % (0-9) Eosinophils (%) (Auto) 1 % (0-3) Basophils (%) (Auto) 1 % (0-3) Neutrophils # (Auto) 7.3 x10^3/uL (1.8-7.7) Lymphocytes # (Auto) 0.5 x10^3/uL (1.0-4.8) Monocytes # (Auto) 1.5 x10^3/uL (0.0-1.1) Eosinophils # (Auto) 0.1 x10^3/uL (0.0-0.7) Basophils # (Auto) 0.1 x10^3/uL (0.0-0.2) BUN/Creatinine Ratio 13 (6-20) Total Bilirubin 0.4 mg/dL (0.2-1.0) Aspartate Amino Transf (AST/SGOT) 41 U/L (15-37) Alanine Aminotransferase (ALT/SGPT) 70 U/L (16-63) Alkaline Phosphatase 58 U/L (46-116) Total Protein 6.5 g/dL (6.4-8.2) Albumin 2.7 g/dL (3.4-5.0) Albumin/Globulin Ratio 0.7 (1.0-1.7) Thyroid Stimulating Hormone (TSH) 1.075 uIU/mL (0.358-3.74) Test 09/20/19 08:50 09/20/19 09:50 Lactic Acid Level 1.6 mmol/L (0.4-2.0) O2 Saturation 99 % (92-99) Arterial Blood pH 7.43 (7.35-7.45) Arterial Blood pCO2 at Patient Temp 36 mmHg (35-46) Arterial Blood pO2 at Patient Temp 183 mmHg (75-108) Arterial Blood pO2 (Temp corrected) mmHg Arterial Blood HCO3 23 mmol/L (21-28) Arterial Blood Base Excess -1 mmol/L (-3-3) FiO2 60 Laboratory Tests Test 09/20/19 00:00 09/20/19 05:30 09/20/19 08:00 09/20/19 08:50 O2 Saturation 95 % (92-99) 94 % (92-99) Arterial Blood pH 7.48 (7.35-7.45) 7.32 (7.35-7.45) Arterial Blood pCO2 at Patient Temp 28 mmHg (35-46) 47 mmHg (35-46) Arterial Blood pO2 at Patient Temp 79 mmHg (75-108) 82 mmHg (75-108) Arterial Blood HCO3 20 mmol/L (21-28) 24 mmol/L (21-28) Arterial Blood Base Excess -2 mmol/L (-3-3) -3 mmol/L (-3-3) FiO2 28 50 White Blood Count 9.6 x10^3/uL (4.0-11.0) Red Blood Count 3.92 x10^6/uL (4.30-5.70) Hemoglobin 10.6 g/dL (13.0-17.5) Hematocrit 31.7 % (39.0-53.0) Mean Corpuscular Volume 81 fL (79-100) Mean Corpuscular Hemoglobin 27 pg (25-35) Mean Corpuscular Hemoglobin Concent 34 g/dL (31-37) Red Cell Distribution Width 17.8 % (11.5-14.5) Platelet Count 236 x10^3/uL (140-400) Neutrophils (%) (Auto) 77 % (31-73) Lymphocytes (%) (Auto) 5 % (24-48) Monocytes (%) (Auto) 16 % (0-9) Eosinophils (%) (Auto) 1 % (0-3) Basophils (%) (Auto) 1 % (0-3) Neutrophils # (Auto) 7.3 x10^3/uL (1.8-7.7) Lymphocytes # (Auto) 0.5 x10^3/uL (1.0-4.8) Monocytes # (Auto) 1.5 x10^3/uL (0.0-1.1) Eosinophils # (Auto) 0.1 x10^3/uL (0.0-0.7) Basophils # (Auto) 0.1 x10^3/uL (0.0-0.2) Sodium Level 137 mmol/L (136-145) Potassium Level 3.8 mmol/L (3.5-5.1) Chloride Level 101 mmol/L (98-107) Carbon Dioxide Level 26 mmol/L (21-32) Anion Gap 10 (6-14) Blood Urea Nitrogen 9 mg/dL (8-26) Creatinine 0.7 mg/dL (0.7-1.3) Estimated GFR (Cockcroft-Gault) 123.7 BUN/Creatinine Ratio 13 (6-20) Glucose Level 147 mg/dL (70-99) Calcium Level 8.4 mg/dL (8.5-10.1) Magnesium Level 1.8 mg/dL (1.8-2.4) Total Bilirubin 0.4 mg/dL (0.2-1.0) Aspartate Amino Transf (AST/SGOT) 41 U/L (15-37) Alanine Aminotransferase (ALT/SGPT) 70 U/L (16-63) Alkaline Phosphatase 58 U/L (46-116) Total Protein 6.5 g/dL (6.4-8.2) Albumin 2.7 g/dL (3.4-5.0) Albumin/Globulin Ratio 0.7 (1.0-1.7) Thyroid Stimulating Hormone (TSH) 1.075 uIU/mL (0.358-3.74) Lactic Acid Level 1.6 mmol/L (0.4-2.0) Test 09/20/19 09:50 O2 Saturation 99 % (92-99) Arterial Blood pH 7.43 (7.35-7.45) Arterial Blood pCO2 at Patient Temp 36 mmHg (35-46) Arterial Blood pO2 at Patient Temp 183 mmHg (75-108) Arterial Blood pO2 (Temp corrected) mmHg Arterial Blood HCO3 23 mmol/L (21-28) Arterial Blood Base Excess -1 mmol/L (-3-3) FiO2 60 Medications Active Scripts Medications Dose Route/Sig Max Daily Dose Days Date Category Amlodipine Besylate 5 Mg Tablet 5 Mg PO DAILY 07/08/19 Reported Protonix (Pantoprazole Sodium) 40 Mg Tablet.dr 40 Mg PO DAILYAC PRN 30 06/23/19 Rx Proair Hfa Inhaler (Albuterol Sulfate) 8.5 Gm Hfa.aer.ad 1 Puff INH PRN Q4HRS PRN 03/02/18 Reported Symbicort 160-4.5 Mcg Inhaler (Budesonide/Formoterol Fumarate) 10.2 Gm Hfa.aer.ad 2 Puff IH BID 08/13/16 Reported Theophylline (Theophylline Anhydrous) 400 Mg Tablet.er 300 Mg PO BID 08/20/13 Reported Impression . 1. Acute respiratory failure secondary to acute gastrointestinal bleed along with hepatic encephalopathy. extubated 09/15, re-intubated 09/19 2. History of alcoholism, presented with acute gastrointestinal bleed. 3. Status post EGD, was found to have a duodenal ulcer in the first and second portion of the duodenum with a visible vessel. Status post epinephrine injection. 4. Acute blood loss anemia. 5. Mild coagulopathy along with thrombocytopenia. 6. Susped ETOH withdrawl seizures 7. DT Plan . 1. continue AC mode 2. sedation 4. Monitor chest x-ray. 5. Monitor hemoglobin. 6. Follow GI recommendations. 7. PPI. 8. SCDs. 9. empiric abx d/w KARLA BIRCH MD Sep 20, 2019 12:59
--- NOTE | 2019-09-20 15:23 | PDOC ---
PROGRESS NOTES Assessment Assessment Metabolic encephalopathy. Toxic encephalopathy. Respiratory failure. Alcohol intoxication, alcohol level 111. Korsakoff Syndrome. Seizure or seizure like episodes, alcohol related. Pancreatitis, recurrent. Right C7 radiculopathy per history. CAD. HTN. KIMBERLY. Tremors. Left eye injury s/p surgery in 2014. RECOMMENDATIONS/PLAN: Continue life support in ICU at the present time. Alcohol detoxication treatment per medical team. Vit B1 100 mg IV daily. Treat medical diseases. Alcohol abstinence. Avoid Haldol as possible. EEG on 06/18/19: No seizure activity. Past Medical History Cardiovascular: CAD, HTN Pulmonary: Asthma, Other ( sleep apnea) CENTRAL NERVOUS SYSTEM: Seizure (Nursing note says that he has had seizures, patient denies) GI: GERD Heme/Onc: Other ( alcoholic pancreatitis) Psych: Anxiety, Addictions, Depression Musculoskeletal: low back pain ( degenerative disc disease) Rheumatologic: Gout Infectious disease: HIV Endocrine: Diabetes ( prediabetes) Past Surgical History No pertinent history Family History CAD Social History Single, mireles, no tobacco or street drugs, drinks alcohol heavily, but not since going home ALLERGY: Reviewed. MEDICATIONS: Refer to MAR REVIEW OF SYSTEMS: Constitutional: No malnutrition, weight loss, cachexia. Head: No traumatic brain or head injury. Skin: No edema, or rash. Ear: No infection. Eyes: No vision loss, or diplopia. Nose: No bleeding or purulent discharges. Hearing: No hearing decrease. Hearing loss. Neck: No injury. Cardiac: No LA, arrhythmia. Pulmonary: No COPD. GI: No GI Ulcer, GI bleeding. Urinary/genital: No dysuria, incontinence, urinary retention. Endocrine: Over weight.. Skeletomuscular: Weakness.. Neurological: see HP. Psychiatric: Denies drug use/abuse. Otherwise, not [id number] review of systems. PHYSICAL EXAMINATION: General appearance in subacute distress. HEENT: Normocephalic and nontraumatic. Eyes, nose, ears, and throat are unremarkable. Neck is supple. No lymphadenopathy. No Crepitus. Cardiovascular: S1, S2, regular rate and rhythm. Pulmonary: Clear to auscultation bilaterally. Abdomen: Bowel sounds are positive. Abdomen is soft, nontender, and nondistended. Extremities: No rash, lesions. Edema noted in left LE.. No restriction of range of motion NEUROLOGICAL EXAMINATION: On vent. Unresponsive. Not oriented to time, place and person. Right pupil 1-2 mm reactive, left side 4-5 mm not reactive to lights, chronic. EOMI not elicited. CN: no focal findings. Muscle tone: Decreased. Muscle strength: No movements to stimuli. DTR: 1 Plantar reflex: No response bilaterally Gait: Not able to walk. Sensory exam: minimla response to stimuli. Not able to access cerebellar signs. F-T-N test not performed. Objective Objective Vital Signs Date Time Temp Pulse Resp B/P (MAP) Pulse Ox O2 Delivery O2 Flow Rate FiO2 09/20/19 14:00 70 14 98/49 (65) 99 Ventilator 09/20/19 12:00 98.8 98.8 09/20/19 08:00 10.0 Intake and Output 09/20/19 07:00 Intake Total 4239 ml Output Total 5540 ml Balance -1301 ml Intake Oral 0 ml IV Total 4239 ml Output Urine Total 5540 ml Vitals Signs Vitals VS - Last 72 Hours, by Label Date Time Temp Pulse Resp B/P (MAP) Pulse Ox O2 Delivery O2 Flow Rate FiO2 09/20/19 14:00 70 14 98/49 (65) 99 Ventilator 09/20/19 13:26 100 Ventilator 09/20/19 13:00 72 12 98/49 (65) 100 Ventilator 09/20/19 12:00 Mechanical Ventilator 09/20/19 12:00 98.8 72 12 91/45 (60) 99 Ventilator 98.8 09/20/19 11:00 75 18 84/50 (61) 100 Ventilator 09/20/19 10:00 82 16 87/48 (61) 99 Ventilator 09/20/19 09:45 100 Ventilator 09/20/19 09:24 99 Ventilator 09/20/19 09:14 97 Ventilator 09/20/19 09:00 80 18 139/69 (92) 99 Ventilator 09/20/19 08:44 Ventilator 09/20/19 08:22 122 206/91 09/20/19 08:00 99.3 104 41 184/82 (116) 95 Aerosol Mask 10.0 99.3 09/20/19 08:00 Mask 10.0 09/20/19 07:00 100 38 147/71 (96) 99 Aerosol Mask 10.0 09/20/19 05:18 104 176/96 09/20/19 05:15 95 33 97 Aerosol Mask 15.0 09/20/19 05:10 96 AP NEB 10.0 09/20/19 05:08 Non-Rebreather 15.0 09/20/19 05:00 97.8 98 39 168/104 (125) 98 NonRebreather Mask 15.0 97.8 09/20/19 04:00 92 39 255/115 (161) 96 Simple Mask 6.0 09/20/19 03:00 102 39 170/82 (111) 98 Simple Mask 6.0 09/20/19 02:00 90 35 154/81 (105) 97 Nasal Cannula 2.0 09/20/19 01:00 88 33 144/81 (102) 97 Nasal Cannula 2.0 09/20/19 00:16 91 174/97 09/20/19 00:05 Nasal Cannula 2.0 09/20/19 00:00 96 34 174/97 (122) 96 Nasal Cannula 2.0 09/19/19 23:52 97 Nasal Cannula 2.0 09/19/19 23:00 104 36 181/91 (121) 96 Nasal Cannula 2.0 09/19/19 23:00 39 Nasal Cannula 97.0 09/19/19 22:31 32 97 Nasal Cannula 2.0 09/19/19 22:00 84 31 138/82 (100) 98 Nasal Cannula 2.0 09/19/19 21:00 94 27 145/69 (94) 97 Nasal Cannula 2.0 09/19/19 20:00 Nasal Cannula 2.0 09/19/19 20:00 92 37 150/76 (100) 98 Nasal Cannula 2.0 09/19/19 19:35 95 Nasal Cannula 2.0 09/19/19 19:00 98.1 96 24 166/81 (109) 97 Nasal Cannula 2.0 98.1 09/19/19 18:25 88 190/106 09/19/19 18:00 86 25 190/106 (134) 98 Nasal Cannula 2.0 09/19/19 17:00 88 26 160/78 (105) 98 Nasal Cannula 2.0 09/19/19 16:00 97.7 90 24 140/88 (105) 96 Nasal Cannula 2.0 97.7 09/19/19 15:34 Nasal Cannula 2.0 09/19/19 15:16 96 Nasal Cannula 2.0 3/8/20 15:00 76 24 175/96 (122) 98 Nasal Cannula 2.0 09/19/19 14:46 98 Nasal Cannula 4.0 09/19/19 14:00 98 25 160/76 (104) 98 Nasal Cannula 2.0 09/19/19 13:00 74 27 160/76 (104) 97 Nasal Cannula 2.0 09/19/19 12:50 Nasal Cannula 4.0 09/19/19 12:00 Nasal Cannula 2.0 09/19/19 12:00 98.9 84 26 160/76 (104) 97 Nasal Cannula 2.0 98.9 09/19/19 11:00 86 28 160/76 (104) 97 Nasal Cannula 4.0 09/19/19 10:00 90 28 156/81 (106) 97 Nasal Cannula 4.0 09/19/19 09:09 93 188/99 09/19/19 09:00 88 25 188/99 (128) 97 Nasal Cannula 4.0 09/19/19 08:08 98 Nasal Cannula 4.0 09/19/19 08:00 98.1 80 28 170/99 (122) 97 Nasal Cannula 4.0 98.1 09/19/19 08:00 Nasal Cannula 4.0 09/19/19 07:00 86 28 170/90 (116) 97 Nasal Cannula 4.0 Laboratory Laboratory Laboratory Tests Test 09/20/19 00:00 09/20/19 05:30 09/20/19 08:00 09/20/19 08:50 O2 Saturation 95 % (92-99) 94 % (92-99) Arterial Blood pH 7.48 (7.35-7.45) 7.32 (7.35-7.45) Arterial Blood pCO2 at Patient Temp 28 mmHg (35-46) 47 mmHg (35-46) Arterial Blood pO2 at Patient Temp 79 mmHg (75-108) 82 mmHg (75-108) Arterial Blood HCO3 20 mmol/L (21-28) 24 mmol/L (21-28) Arterial Blood Base Excess -2 mmol/L (-3-3) -3 mmol/L (-3-3) FiO2 28 50 White Blood Count 9.6 x10^3/uL (4.0-11.0) Red Blood Count 3.92 x10^6/uL (4.30-5.70) Hemoglobin 10.6 g/dL (13.0-17.5) Hematocrit 31.7 % (39.0-53.0) Mean Corpuscular Volume 81 fL (79-100) Mean Corpuscular Hemoglobin 27 pg (25-35) Mean Corpuscular Hemoglobin Concent 34 g/dL (31-37) Red Cell Distribution Width 17.8 % (11.5-14.5) Platelet Count 236 x10^3/uL (140-400) Neutrophils (%) (Auto) 77 % (31-73) Lymphocytes (%) (Auto) 5 % (24-48) Monocytes (%) (Auto) 16 % (0-9) Eosinophils (%) (Auto) 1 % (0-3) Basophils (%) (Auto) 1 % (0-3) Neutrophils # (Auto) 7.3 x10^3/uL (1.8-7.7) Lymphocytes # (Auto) 0.5 x10^3/uL (1.0-4.8) Monocytes # (Auto) 1.5 x10^3/uL (0.0-1.1) Eosinophils # (Auto) 0.1 x10^3/uL (0.0-0.7) Basophils # (Auto) 0.1 x10^3/uL (0.0-0.2) Sodium Level 137 mmol/L (136-145) Potassium Level 3.8 mmol/L (3.5-5.1) Chloride Level 101 mmol/L (98-107) Carbon Dioxide Level 26 mmol/L (21-32) Anion Gap 10 (6-14) Blood Urea Nitrogen 9 mg/dL (8-26) Creatinine 0.7 mg/dL (0.7-1.3) Estimated GFR (Cockcroft-Gault) 123.7 BUN/Creatinine Ratio 13 (6-20) Glucose Level 147 mg/dL (70-99) Calcium Level 8.4 mg/dL (8.5-10.1) Magnesium Level 1.8 mg/dL (1.8-2.4) Total Bilirubin 0.4 mg/dL (0.2-1.0) Aspartate Amino Transf (AST/SGOT) 41 U/L (15-37) Alanine Aminotransferase (ALT/SGPT) 70 U/L (16-63) Alkaline Phosphatase 58 U/L (46-116) Total Protein 6.5 g/dL (6.4-8.2) Albumin 2.7 g/dL (3.4-5.0) Albumin/Globulin Ratio 0.7 (1.0-1.7) Vitamin B12 Level 880 pg/mL (247-911) Thyroid Stimulating Hormone (TSH) 1.075 uIU/mL (0.358-3.74) Lactic Acid Level 1.6 mmol/L (0.4-2.0) Test 09/20/19 09:50 O2 Saturation 99 % (92-99) Arterial Blood pH 7.43 (7.35-7.45) Arterial Blood pCO2 at Patient Temp 36 mmHg (35-46) Arterial Blood pO2 at Patient Temp 183 mmHg (75-108) Arterial Blood pO2 (Temp corrected) mmHg Arterial Blood HCO3 23 mmol/L (21-28) Arterial Blood Base Excess -1 mmol/L (-3-3) FiO2 60 Medication Medications Current Medications Fentanyl Citrate 30 ml @ 0 mls/hr CONT PRN IV SEE PROTOCOL Last administered on 09/20/19at 11:19; Start 09/20/19 at 08:45 Midazolam HCl 50 mg/Sodium Chloride 50 ml @ 0 mls/hr CONT PRN IV SEE PROTOCOL Last administered on 09/20/19at 11:29; Start 09/20/19 at 08:45 Comment Review of Relevant I have reviewed the following items wali (where applicable) has been applied. EFE CRUZ MD Sep 20, 2019 15:23
[2019-09-20] MEDS: THIAMINE INJ 100 MG in IV DEXTROSE 5% 50 ML IV SCH (15:52)
[2019-09-21] VITALS (24 sets, daily range): BP systolic 86–158; BP diastolic 37–79
[2019-09-21] MEDS: AA 4.25 %/CALCIUM/LYTES/D5W 1,000 ML IV SCH ×2 (03:29→16:10)
[2019-09-21] MEDS: MIDAZOLAM HCL 50 MG in IV NORMAL SALINE 50ML 50 ML IV PRN ×4 (05:35→19:26)
[2019-09-21] MEDS: ALBUTEROL SULFATE 2.5 MG/3 ML NEBU. NEB SCH ×3 (07:35→19:36)
[2019-09-21] MEDS: BUDESONIDE 0.5 MG/2 ML NEBU. NEB SCH ×2 (07:35→19:36)
[2019-09-21 07:47] LABS: BASE EXCESS ABG -1 mmol/L (-3-3); HCO3 ABG 24 mmol/L (21-28); PCO2 ABG 43 mmHg (35-46); PO2 ABG 98 mmHg (75-108); SAT O2 ABG 97 % (92-99)
[2019-09-21 08:52] LABS: FIO2 ABG 40
[2019-09-21] MEDS: PANTOPRAZOLE IV PUSH 40 MG VIAL. IVP SCH ×2 (08:58→21:40)
[2019-09-21] MEDS: THIAMINE INJ 100 MG in IV DEXTROSE 5% 50 ML IV SCH (08:58)
--- NOTE | 2019-09-21 09:54 | PDOC ---
Objective: Objective: D/w nurse - ~200cc from OG yesterday - initially dark, then green. Tube feeds started per dietary at 4:00 this morning. No stools. Vital Signs: Vital Signs Date Time Temp Pulse Resp B/P (MAP) Pulse Ox O2 Delivery O2 Flow Rate FiO2 09/21/19 09:14 100 Ventilator 09/21/19 09:00 64 13 136/72 (93) 09/21/19 08:00 98.4 98.4 09/20/19 23:06 10.0 Labs: Laboratory Tests Test 09/21/19 07:30 O2 Saturation 97 % Arterial Blood pH 7.38 Arterial Blood pCO2 at Patient Temp 43 mmHg Arterial Blood pO2 at Patient Temp 98 mmHg Arterial Blood HCO3 24 mmol/L Arterial Blood Base Excess -1 mmol/L FiO2 40 PE: GEN: intubated LUNGS: vent, clear HEART: RRR ABD: quiet, soft NEURO/PSYCH: awake, tremulous A/P: Alcohol abuse/withdrawal, s/p code, psych issues Hematemesis - resolved Anemia, thrombocytopenia, elevated AST and ALT (improving) Erosive esophagitis, DU - s/p endotherapy 09/15/19 - on IV PPI H/o recurrent pancreatitis, hepatic steatosis -- Recheck of Hgb pending. Now trying OG feeds. Continue PPI. Hemodynamically unstable?: No Is patient in severe pain?: No Is NPO status required?: Yes MESSI GORE Sep 21, 2019 09:54
[2019-09-21] MEDS ORDERED: PIP/TAZO PER PHARMACY MC PRN (10:45)
--- NOTE | 2019-09-21 10:45 | PDOC ---
PULMONARY PROGRESS NOTES Subjective Pt. is extubated 09/15, re-intubated early am 09/19 due to DT/ increase work of breathing ET with thick secretions Vitals Vital Signs Date Time Temp Pulse Resp B/P (MAP) Pulse Ox O2 Delivery O2 Flow Rate FiO2 09/21/19 09:14 100 Ventilator 09/21/19 09:00 64 13 136/72 (93) 09/21/19 08:00 98.4 98.4 09/20/19 23:06 10.0 Lungs: Other (rhonchi) Cardiovascular: S1, S2 Abdomen: Soft Extremities: No Edema Skin: Warm Labs Laboratory Tests Test 09/20/19 00:00 09/20/19 05:30 09/20/19 08:00 09/20/19 08:50 O2 Saturation 95 % (92-99) 94 % (92-99) Arterial Blood pH 7.48 (7.35-7.45) 7.32 (7.35-7.45) Arterial Blood pCO2 at Patient Temp 28 mmHg (35-46) 47 mmHg (35-46) Arterial Blood pO2 at Patient Temp 79 mmHg (75-108) 82 mmHg (75-108) Arterial Blood HCO3 20 mmol/L (21-28) 24 mmol/L (21-28) Arterial Blood Base Excess -2 mmol/L (-3-3) -3 mmol/L (-3-3) FiO2 28 50 White Blood Count 9.6 x10^3/uL (4.0-11.0) Red Blood Count 3.92 x10^6/uL (4.30-5.70) Hemoglobin 10.6 g/dL (13.0-17.5) Hematocrit 31.7 % (39.0-53.0) Mean Corpuscular Volume 81 fL (79-100) Mean Corpuscular Hemoglobin 27 pg (25-35) Mean Corpuscular Hemoglobin Concent 34 g/dL (31-37) Red Cell Distribution Width 17.8 % (11.5-14.5) Platelet Count 236 x10^3/uL (140-400) Neutrophils (%) (Auto) 77 % (31-73) Lymphocytes (%) (Auto) 5 % (24-48) Monocytes (%) (Auto) 16 % (0-9) Eosinophils (%) (Auto) 1 % (0-3) Basophils (%) (Auto) 1 % (0-3) Neutrophils # (Auto) 7.3 x10^3/uL (1.8-7.7) Lymphocytes # (Auto) 0.5 x10^3/uL (1.0-4.8) Monocytes # (Auto) 1.5 x10^3/uL (0.0-1.1) Eosinophils # (Auto) 0.1 x10^3/uL (0.0-0.7) Basophils # (Auto) 0.1 x10^3/uL (0.0-0.2) Sodium Level 137 mmol/L (136-145) Potassium Level 3.8 mmol/L (3.5-5.1) Chloride Level 101 mmol/L (98-107) Carbon Dioxide Level 26 mmol/L (21-32) Anion Gap 10 (6-14) Blood Urea Nitrogen 9 mg/dL (8-26) Creatinine 0.7 mg/dL (0.7-1.3) Estimated GFR (Cockcroft-Gault) 123.7 BUN/Creatinine Ratio 13 (6-20) Glucose Level 147 mg/dL (70-99) Calcium Level 8.4 mg/dL (8.5-10.1) Magnesium Level 1.8 mg/dL (1.8-2.4) Total Bilirubin 0.4 mg/dL (0.2-1.0) Aspartate Amino Transf (AST/SGOT) 41 U/L (15-37) Alanine Aminotransferase (ALT/SGPT) 70 U/L (16-63) Alkaline Phosphatase 58 U/L (46-116) Total Protein 6.5 g/dL (6.4-8.2) Albumin 2.7 g/dL (3.4-5.0) Albumin/Globulin Ratio 0.7 (1.0-1.7) Vitamin B12 Level 880 pg/mL (247-911) Thyroid Stimulating Hormone (TSH) 1.075 uIU/mL (0.358-3.74) Lactic Acid Level 1.6 mmol/L (0.4-2.0) Test 09/20/19 09:50 09/21/19 07:30 O2 Saturation 99 % (92-99) 97 % (92-99) Arterial Blood pH 7.43 (7.35-7.45) 7.38 (7.35-7.45) Arterial Blood pCO2 at Patient Temp 36 mmHg (35-46) 43 mmHg (35-46) Arterial Blood pO2 at Patient Temp 183 mmHg (75-108) 98 mmHg (75-108) Arterial Blood pO2 (Temp corrected) mmHg Arterial Blood HCO3 23 mmol/L (21-28) 24 mmol/L (21-28) Arterial Blood Base Excess -1 mmol/L (-3-3) -1 mmol/L (-3-3) FiO2 60 40 Laboratory Tests Test 09/21/19 07:30 O2 Saturation 97 % (92-99) Arterial Blood pH 7.38 (7.35-7.45) Arterial Blood pCO2 at Patient Temp 43 mmHg (35-46) Arterial Blood pO2 at Patient Temp 98 mmHg (75-108) Arterial Blood HCO3 24 mmol/L (21-28) Arterial Blood Base Excess -1 mmol/L (-3-3) FiO2 40 Medications Active Scripts Medications Dose Route/Sig Max Daily Dose Days Date Category Amlodipine Besylate 5 Mg Tablet 5 Mg PO DAILY 07/08/19 Reported Protonix (Pantoprazole Sodium) 40 Mg Tablet.dr 40 Mg PO DAILYAC PRN 30 06/23/19 Rx Proair Hfa Inhaler (Albuterol Sulfate) 8.5 Gm Hfa.aer.ad 1 Puff INH PRN Q4HRS PRN 03/02/18 Reported Symbicort 160-4.5 Mcg Inhaler (Budesonide/Formoterol Fumarate) 10.2 Gm Hfa.aer.ad 2 Puff IH BID 08/13/16 Reported Theophylline (Theophylline Anhydrous) 400 Mg Tablet.er 300 Mg PO BID 08/20/13 Reported Impression . 1. Acute respiratory failure secondary to acute gastrointestinal bleed along with hepatic encephalopathy. extubated 09/15, re-intubated 09/19 2. History of alcoholism, presented with acute gastrointestinal bleed. 3. Status post EGD, was found to have a duodenal ulcer in the first and second portion of the duodenum with a visible vessel. Status post epinephrine injection. 4. Acute blood loss anemia. 5. Mild coagulopathy along with thrombocytopenia. 6. Susped ETOH withdrawl seizures 7. DT Plan . 1. continue AC mode. Has thick ET secretions. Add Zosyn 2. sedation 4. Monitor chest x-ray prn 5. Monitor hemoglobin. 6. Follow GI recommendations. 7. PPI. 8. SCDs. d/w KARLA BIRCH MD Sep 21, 2019 10:45
[2019-09-21] MEDS: PIPERACILLIN/TAZOBACTAM 3.375 GM in IV NORMAL SALINE 50ML 50 ML IV SCH ×2 (11:25→18:16)
[2019-09-21] MEDS: DEXMEDETOMIDINE 400 MCG in IV NORMAL SALINE 100ML 96 ML IV PRN ×3 (11:25→19:26)
--- NOTE | 2019-09-21 11:57 | PDOC ---
[employer] PROGRESS NOTE Chief Complaint Chief Complaint 0. Respiratory failure on the vent 1. acute UGI BLEED 2. severe diffuse hepatic steatosis. 3. Erosive esophagitis, epinephrine injection duodenal ulcer in the first and second portions of duodenum with a visible vessel, status post epinephrine injection. 4. polysubstance abuse, ALCOHOL, COCAINE, THC 5. ELECTROLYTE IMBALANCE 6. MALIGNANT HTN History of Present Illness History of Present Illness [id number] Patient seen and examined in the ICU once again He remains intubated and on assist-control/16/500/40% with 5 of PEEP Sedated with Precedex Getting TPN and albumin Also on Versed levo fed He is critically ill Discussed with RN Chart reviewed [id number] Patient seen and examined in the ICU He is intubated Assist-control/16/500/60% FiO2 Chart reviewed Discussed with RN Vitals/I&O Vitals/I&O: Vital Signs Date Time Temp Pulse Resp B/P (MAP) Pulse Ox O2 Delivery O2 Flow Rate FiO2 09/21/19 11:25 14 98 Ventilator 09/21/19 09:00 64 136/72 (93) 09/21/19 08:00 98.4 98.4 09/20/19 23:06 10.0 I & O 09/20/19 09/20/19 09/21/19 15:00 23:00 07:00 Intake Total 660 ml 2496 ml Output Total 199 ml 470 ml 255 ml Balance 461 ml 2026 ml -255 ml Physical Exam Physical Exam: SEDATED ON VENT General: No acute distress Heart: Regular rate, Normal S1, Normal S2 Lungs: Other (rhonchi) Abdomen: Normal bowel sounds, Soft, No tenderness Extremities: No cyanosis, No edema Labs Labs: Laboratory Tests Test 09/21/19 07:30 O2 Saturation 97 % (92-99) Arterial Blood pH 7.38 (7.35-7.45) Arterial Blood pCO2 at Patient Temp 43 mmHg (35-46) Arterial Blood pO2 at Patient Temp 98 mmHg (75-108) Arterial Blood HCO3 24 mmol/L (21-28) Arterial Blood Base Excess -1 mmol/L (-3-3) FiO2 40 Review of Systems Review of Systems: Unable to obtain Assessment and Plan Assessmemt and Plan Problems Medical Problems: (1) GI bleed Status: Acute 1. acute UGI BLEED 2. severe diffuse hepatic steatosis. 3. Erosive esophagitis, epinephrine injection duodenal ulcer in the first and second portions of duodenum with a visible vessel, status post epinephrine injection. 4. polysubstance abuse, ALCOHOL, COCAINE, THC 5. ELECTROLYTE IMBALANCE 6. MALIGNANT HTN PLAN ICU monitoring GI following Trying to wean off Levaquin fed Vent weaning When necessary transfusions alcohol withdrawal protocol SCD'S IV proton pump inhibitors Trend labs When necessary hydralazine He is critically ill Total time 31 minutes Comment Review of Relevant I have reviewed the following items wali (where applicable) has been applied. Medications: Current Medications Medications (Trade) Dose Ordered Sig/Wil Route PRN Reason Start Time Stop Time Status Last Admin Dose Admin Thiamine HCl 100 mg/Dextrose 51 ml @ 102 mls/hr DAILY IV 09/20/19 16:00 09/21/19 08:58 Piperacillin Sod/ Tazobactam Sod 3.375 gm/Sodium Chloride 50 ml @ 100 mls/hr Q6HRS IV 09/21/19 12:00 09/21/19 11:25 Hemodynamically unstable?: No Is patient in severe pain?: No Is NPO status required?: Yes MAY FROST III DO Sep 21, 2019 11:57
[2019-09-21 12:49] LABS: HEMATOCRIT 27.4 % (39.0-53.0); HEMOGLOBIN 8.9 g/dL (13.0-17.5); RED BLOOD COUNT 3.33 x10^6/uL (4.30-5.70); WHITE BLOOD COUNT 8.8 x10^3/uL (4.0-11.0)
--- NOTE | 2019-09-21 15:45 | NUR ---
SS following up with discharge planning. HCFS continues to follow for self pay status. Pt remains on the vent at this time. SS will continue to follow for discharge planning.
--- NOTE | 2019-09-21 16:02 | PDOC ---
PROGRESS NOTES Assessment Assessment Metabolic encephalopathy. Toxic encephalopathy. Respiratory failure. Alcohol intoxication, alcohol level 111. Korsakoff Syndrome. Seizure or seizure like episodes, alcohol related. Pancreatitis, recurrent. Right C7 radiculopathy per history. CAD. HTN. KIMBERLY. Tremors. Left eye injury s/p surgery in 2015. RECOMMENDATIONS/PLAN: Continue life support in ICU at the present time. Alcohol detoxication treatment per medical team. Continue Vit B1 100 mg IV daily. Treat medical diseases. Alcohol abstinence. Avoid Haldol as possible. EEG on 06/18/19: No seizure activity. Objective: On vent. Past Medical History Cardiovascular: CAD, HTN Pulmonary: Asthma, Other ( sleep apnea) CENTRAL NERVOUS SYSTEM: Seizure (Nursing note says that he has had seizures, patient denies) GI: GERD Heme/Onc: Other ( alcoholic pancreatitis) Psych: Anxiety, Addictions, Depression Musculoskeletal: low back pain ( degenerative disc disease) Rheumatologic: Gout Infectious disease: HIV Endocrine: Diabetes ( prediabetes) Past Surgical History No pertinent history Family History CAD Social History Single, mireles, no tobacco or street drugs, drinks alcohol heavily, but not since going home ALLERGY: Reviewed. MEDICATIONS: Refer to [facility]VIEW OF SYSTEMS: Constitutional: No malnutrition, weight loss, cachexia. Head: No traumatic brain or head injury. Skin: No edema, or rash. Ear: No infection. Eyes: No vision loss, or diplopia. Nose: No bleeding or purulent discharges. Hearing: No hearing decrease. Hearing loss. Neck: No injury. Cardiac: No CT, arrhythmia. Pulmonary: No COPD. GI: No GI Ulcer, GI bleeding. Urinary/genital: No dysuria, incontinence, urinary retention. Endocrine: Over weight.. Skeletomuscular: Weakness.. Neurological: see HP. Psychiatric: Denies drug use/abuse. Otherwise, not [id number] review of systems. PHYSICAL EXAMINATION: General appearance in subacute distress. HEENT: Normocephalic and nontraumatic. Eyes, nose, ears, and throat are unremarkable. Neck is supple. No lymphadenopathy. No Crepitus. Cardiovascular: S1, S2, regular rate and rhythm. Pulmonary: Clear to auscultation bilaterally. Abdomen: Bowel sounds are positive. Abdomen is soft, nontender, and nondistended. Extremities: No rash, lesions. Edema noted in left LE.. No restriction of range of motion NEUROLOGICAL EXAMINATION: On vent. Minimal responsive. Not oriented to time, place and person. Right pupil 1-2 mm reactive, left side 4-5 mm not reactive to lights, chronic. EOMI not elicited. CN: no focal findings. Muscle tone: Decreased. Muscle strength: Minimal movements to stimuli. DTR: 1 Plantar reflex: No response bilaterally Gait: Not able to walk. Sensory exam: minimal response to stimuli. Not able to access cerebellar signs. F-T-N test not performed due to decreased mentation. Objective Objective Vital Signs Date Time Temp Pulse Resp B/P (MAP) Pulse Ox O2 Delivery O2 Flow Rate FiO2 09/21/19 15:41 99 Ventilator 09/21/19 15:00 60 14 122/60 (80) 09/21/19 12:00 98.8 98.8 09/20/19 23:06 10.0 Intake and Output 09/21/19 07:00 Intake Total 3156 ml Output Total 924 ml Balance 2232 ml IV Total 3156 ml Output Urine Total 724 ml Gastric Drainage Total 200 ml Vitals Signs Vitals VS - Last 72 Hours, by Label Date Time Temp Pulse Resp B/P (MAP) Pulse Ox O2 Delivery O2 Flow Rate FiO2 09/21/19 15:41 99 Ventilator 09/21/19 15:00 60 14 122/60 (80) 98 Ventilator 09/21/19 14:08 98 Ventilator 09/21/19 14:00 57 15 114/53 (73) 98 Ventilator 09/21/19 13:00 60 16 115/54 (74) 98 Ventilator 09/21/19 12:08 98 Ventilator 09/21/19 12:00 Mechanical Ventilator 09/21/19 12:00 98.8 56 13 112/58 (76) 98 Ventilator 98.8 09/21/19 11:25 14 98 Ventilator 09/21/19 11:00 64 13 86/42 (57) 98 Ventilator 09/21/19 10:00 82 13 143/79 (100) 99 Ventilator 09/21/19 09:14 100 Ventilator 09/21/19 09:00 64 13 136/72 (93) 99 Ventilator 09/21/19 08:00 98.4 62 13 123/63 (83) 100 Ventilator 98.4 09/21/19 08:00 Mechanical Ventilator 09/21/19 07:35 99 Ventilator 09/21/19 07:00 60 17 103/51 (68) 99 Ventilator 09/21/19 06:03 97 Ventilator 09/21/19 06:00 64 16 119/64 (82) 96 Ventilator 09/21/19 05:37 99 Ventilator 09/21/19 05:00 60 17 139/76 (97) 96 Ventilator 09/21/19 04:00 Mechanical Ventilator 09/21/19 04:00 99.2 61 16 111/57 (75) 100 Ventilator 99.2 09/21/19 03:28 97 Ventilator 09/21/19 03:00 62 16 99/48 (65) 99 Ventilator 09/21/19 02:00 68 18 96/49 (65) 98 Ventilator 09/21/19 01:00 62 15 92/43 (59) 95 Ventilator 09/21/19 00:00 99.5 66 22 91/37 (55) 96 Ventilator 99.5 09/20/19 23:59 Mechanical Ventilator 09/20/19 23:47 97 Ventilator 09/20/19 23:36 18 97 Ventilator 09/20/19 23:06 97 Ventilator 10.0 09/20/19 23:00 74 18 100/40 (60) 97 Ventilator 09/20/19 22:00 79 20 107/51 (69) 97 Ventilator 09/20/19 21:15 97 Ventilator 09/20/19 21:00 75 18 104/49 (67) 97 Ventilator 09/20/19 20:00 Mechanical Ventilator 09/20/19 20:00 98.2 81 16 104/44 (64) 97 Ventilator 98.2 09/20/19 19:21 97 Ventilator 09/20/19 19:00 79 16 119/57 (77) 97 Ventilator 09/20/19 18:00 99.2 74 16 93/44 (60) 98 Ventilator 99.2 09/20/19 17:57 98 10.0 09/20/19 17:00 82 18 105/47 (66) 100 Ventilator 09/20/19 16:55 98 09/20/19 16:00 Mechanical Ventilator 09/20/19 16:00 100.2 83 17 128/50 (76) 99 Ventilator 100.2 09/20/19 15:00 73 14 95/51 (66) 99 Ventilator 09/20/19 14:00 70 14 98/49 (65) 99 Ventilator 09/20/19 13:26 100 Ventilator 09/20/19 13:00 72 12 98/49 (65) 100 Ventilator 09/20/19 12:00 Mechanical Ventilator 09/20/19 12:00 98.8 72 12 91/45 (60) 99 Ventilator 98.8 09/20/19 11:00 75 18 84/50 (61) 100 Ventilator 09/20/19 10:00 82 16 87/48 (61) 99 Ventilator 09/20/19 09:45 100 Ventilator 09/20/19 09:24 99 Ventilator 09/20/19 09:14 97 Ventilator 09/20/19 09:00 80 18 139/69 (92) 99 Ventilator 09/20/19 08:44 Ventilator 09/20/19 08:22 122 206/91 09/20/19 08:00 99.3 104 41 184/82 (116) 95 Aerosol Mask 10.0 99.3 09/20/19 08:00 Mask 10.0 09/20/19 07:00 100 38 147/71 (96) 99 Aerosol Mask 10.0 Laboratory Laboratory Laboratory Tests Test 09/21/19 07:30 09/21/19 12:45 O2 Saturation 97 % (92-99) Arterial Blood pH 7.38 (7.35-7.45) Arterial Blood pCO2 at Patient Temp 43 mmHg (35-46) Arterial Blood pO2 at Patient Temp 98 mmHg (75-108) Arterial Blood HCO3 24 mmol/L (21-28) Arterial Blood Base Excess -1 mmol/L (-3-3) FiO2 40 White Blood Count 8.8 x10^3/uL (4.0-11.0) Red Blood Count 3.33 x10^6/uL (4.30-5.70) Hemoglobin 8.9 g/dL (13.0-17.5) Hematocrit 27.4 % (39.0-53.0) Mean Corpuscular Volume 82 fL (79-100) Mean Corpuscular Hemoglobin 27 pg (25-35) Mean Corpuscular Hemoglobin Concent 33 g/dL (31-37) Red Cell Distribution Width 18.0 % (11.5-14.5) Platelet Count 232 x10^3/uL (140-400) Medication Medications Current Medications Piperacillin Sod/ Tazobactam Sod (Zosyn Per Pharmacy) 1 each PRN DAILY PRN MC SEE COMMENTS; Start 09/21/19 at 10:45 Piperacillin Sod/ Tazobactam Sod 3.375 gm/Sodium Chloride 50 ml @ 100 mls/hr Q6HRS IV Last administered on 09/21/19at 11:25; Start 09/21/19 at 12:00 Comment Review of Relevant I have reviewed the following items wali (where applicable) has been applied. EFE CRUZ MD Sep 21, 2019 16:02
[2019-09-21] MEDS: IV NORMAL SALINE 1000ML BAG 1,000 ML IV SCH (16:57)
[2019-09-22] VITALS (24 sets, daily range): BP systolic 100–172; BP diastolic 44–89
[2019-09-22] MEDS: PIPERACILLIN/TAZOBACTAM 3.375 GM in IV NORMAL SALINE 50ML 50 ML IV SCH ×4 (00:10→17:21)
[2019-09-22] MEDS: PROPOFOL 100 ML IV PRN ×7 (00:42→20:50)
[2019-09-22] MEDS ORDERED: ALTEPLASE 1MG SYRINGE. INT CAT ONE ×2 (02:30→03:30)
[2019-09-22] MEDS: AA 4.25 %/CALCIUM/LYTES/D5W 1,000 ML IV SCH ×2 (03:45→17:21)
[2019-09-22] MEDS: BUDESONIDE 0.5 MG/2 ML NEBU. NEB SCH ×2 (08:12→20:06)
[2019-09-22] MEDS: ALBUTEROL SULFATE 2.5 MG/3 ML NEBU. NEB SCH ×4 (08:12→20:06)
[2019-09-22 08:16] LABS: BASE EXCESS ABG 1 mmol/L (-3-3); HCO3 ABG 27 mmol/L (21-28); PCO2 ABG 45 mmHg (35-46); PO2 ABG 97 mmHg (75-108); SAT O2 ABG 97 % (92-99)
--- NOTE | 2019-09-22 08:42 | PDOC ---
Objective: Objective: D/w nurse - possible extubation Friday, more sedated today, tolerating tube feeds, hasn't stooled. KUB ok 09/19. Vital Signs: Vital Signs Date Time Temp Pulse Resp B/P (MAP) Pulse Ox O2 Delivery O2 Flow Rate FiO2 09/22/19 08:04 99 Ventilator 09/22/19 08:00 98.0 56 16 118/59 (78) 98.0 Labs: Laboratory Tests Test 09/21/19 12:45 White Blood Count 8.8 x10^3/uL Red Blood Count 3.33 x10^6/uL Hemoglobin 8.9 g/dL Hematocrit 27.4 % Mean Corpuscular Volume 82 fL Mean Corpuscular Hemoglobin 27 pg Mean Corpuscular Hemoglobin Concent 33 g/dL Red Cell Distribution Width 18.0 % Platelet Count 232 x10^3/uL PE: GEN: intubated LUNGS: clear anteriorly, vent HEART: RRR ABD: a few quiet gurgles, soft, non-distended NEURO/PSYCH: sedated A/P: Alcohol abuse/withdrawal, resp failure Anemia Erosive esophagitis, DU - s/p endotherapy 09/15/19 H/o recurrent pancreatitis, hepatic steatosis -- BMP pending, will also check Hgb. Continue PPI, monitor on tube feeds. Hemodynamically unstable?: No Is patient in severe pain?: No Is NPO status required?: Yes (OG feeds ok) MESSI GORE Sep 22, 2019 08:42
[2019-09-22] MEDS: THIAMINE INJ 100 MG in IV DEXTROSE 5% 50 ML IV SCH (08:44)
[2019-09-22] MEDS ORDERED: POLYETHYLENE GLYCOL 3350 17 GM PACKET. FT PRN (08:45)
[2019-09-22] MEDS: PANTOPRAZOLE IV PUSH 40 MG VIAL. IVP SCH ×2 (08:45→20:50)
--- NOTE | 2019-09-22 08:55 | PDOC ---
[facility] PROGRESS NOTE Chief Complaint Chief Complaint 0. Respiratory failure on the vent 1. acute UGI BLEED 2. severe diffuse hepatic steatosis. 3. Erosive esophagitis, epinephrine injection duodenal ulcer in the first and second portions of duodenum with a visible vessel, status post epinephrine injection. 4. polysubstance abuse, ALCOHOL, COCAINE, THC 5. ELECTROLYTE IMBALANCE 6. MALIGNANT HTN History of Present Illness History of Present Illness [id number] Patient seen and examined in the ICU He remains critically ill On mechanical ventilation with assist control/16/500/40% Sedated with propofol and fentanyl Has PPN and OG feeds running Chart reviewed Discussed with RN [id number] Patient seen and examined in the ICU once again He remains intubated and on assist-control/16/500/40% with 5 of PEEP Sedated with Precedex Getting TPN and albumin Also on Versed levo fed He is critically ill Discussed with RN Chart reviewed [id number] Patient seen and examined in the ICU He is intubated Assist-control/16/500/60% FiO2 Chart reviewed Discussed with RN Vitals/I&O Vitals/I&O: Vital Signs Date Time Temp Pulse Resp B/P (MAP) Pulse Ox O2 Delivery O2 Flow Rate FiO2 09/22/19 08:04 99 Ventilator 09/22/19 08:00 98.0 56 16 118/59 (78) 98.0 I & O 09/21/19 09/21/19 09/22/19 15:00 23:00 07:00 Intake Total 401 ml 4541 ml 2342 ml Output Total 710 ml 815 ml 2250 ml Balance -309 ml 3726 ml 92 ml Physical Exam Physical Exam: SEDATED ON VENT General: No acute distress Heart: Regular rate, Normal S1, Normal S2 Lungs: Other (rhonchi) Abdomen: Normal bowel sounds, Soft, No tenderness Extremities: No cyanosis, No edema Skin: No rashes Labs Labs: Laboratory Tests Test 09/21/19 12:45 White Blood Count 8.8 x10^3/uL (4.0-11.0) Red Blood Count 3.33 x10^6/uL (4.30-5.70) Hemoglobin 8.9 g/dL (13.0-17.5) Hematocrit 27.4 % (39.0-53.0) Mean Corpuscular Volume 82 fL (79-100) Mean Corpuscular Hemoglobin 27 pg (25-35) Mean Corpuscular Hemoglobin Concent 33 g/dL (31-37) Red Cell Distribution Width 18.0 % (11.5-14.5) Platelet Count 232 x10^3/uL (140-400) Review of Systems Review of Systems: Unable to obtain Assessment and Plan Assessmemt and Plan Problems Medical Problems: (1) GI bleed Status: Acute 1. acute UGI BLEED 2. severe diffuse hepatic steatosis. 3. Erosive esophagitis, epinephrine injection duodenal ulcer in the first and second portions of duodenum with a visible vessel, status post epinephrine injection. 4. polysubstance abuse, ALCOHOL, COCAINE, THC 5. ELECTROLYTE IMBALANCE 6. MALIGNANT HTN Plan Continue fentanyl and propofol ICU monitoring GI following Trying to wean off Levaquin fed Vent weaning When necessary transfusions alcohol withdrawal protocol SCD'S IV proton pump inhibitors Trend labs When necessary hydralazine He is still critically ill Total time 31 minutes Comment Review of Relevant I have reviewed the following items wali (where applicable) has been applied. Medications: Current Medications Medications (Trade) Dose Ordered Sig/Wil Route PRN Reason Start Time Stop Time Status Last Admin Dose Admin Piperacillin Sod/ Tazobactam Sod 3.375 gm/Sodium Chloride 50 ml @ 100 mls/hr Q6HRS IV 09/21/19 12:00 09/22/19 05:35 Alteplase, Recombinant (Cathflo For Central Catheter Clearance) 1 mg 1X ONCE INT CAT 09/22/19 02:30 09/22/19 02:31 DC 09/22/19 02:16 Alteplase, Recombinant (Cathflo For Central Catheter Clearance) 1 mg 1X ONCE INT CAT 09/22/19 03:30 09/22/19 03:32 DC 09/22/19 03:43 Hemodynamically unstable?: No Is patient in severe pain?: No Is NPO status required?: Yes (OG feeds ok) MAY FROST III DO Sep 22, 2019 08:55
[2019-09-22 09:38] LABS: FIO2 ABG 40
[2019-09-22 12:07] LABS: HEMATOCRIT 27.2 % (39.0-53.0); HEMOGLOBIN 8.8 g/dL (13.0-17.5); RED BLOOD COUNT 3.31 x10^6/uL (4.30-5.70); RED CELL DISTRIBUTION WIDTH 17.6 % (11.5-14.5); WHITE BLOOD COUNT 6.9 x10^3/uL (4.0-11.0)
[2019-09-22 12:24] LABS: CALCIUM 8.2 mg/dL (8.5-10.1); CREATININE 0.8 mg/dL (0.7-1.3); MAGNESIUM 1.7 mg/dL (1.8-2.4); POTASSIUM 4.3 mmol/L (3.5-5.1)
--- NOTE | 2019-09-22 12:48 | PDOC ---
PULMONARY PROGRESS NOTES Subjective Pt. is extubated 09/15, re-intubated early am 09/19 due to DT/ increase work of breathing ET with thick secretions, improved now AC mode Vitals Vital Signs Date Time Temp Pulse Resp B/P (MAP) Pulse Ox O2 Delivery O2 Flow Rate FiO2 09/22/19 12:00 Mechanical Ventilator 09/22/19 12:00 98.1 60 16 120/52 (74) 97 98.1 Lungs: Other (rhonchi) Cardiovascular: S1, S2 Abdomen: Soft Extremities: No Edema Skin: Warm Labs Laboratory Tests Test 09/21/19 07:30 09/21/19 12:45 09/22/19 08:05 09/22/19 11:50 O2 Saturation 97 % (92-99) 97 % (92-99) Arterial Blood pH 7.38 (7.35-7.45) 7.39 (7.35-7.45) Arterial Blood pCO2 at Patient Temp 43 mmHg (35-46) 45 mmHg (35-46) Arterial Blood pO2 at Patient Temp 98 mmHg (75-108) 97 mmHg (75-108) Arterial Blood HCO3 24 mmol/L (21-28) 27 mmol/L (21-28) Arterial Blood Base Excess -1 mmol/L (-3-3) 1 mmol/L (-3-3) FiO2 40 40 White Blood Count 8.8 x10^3/uL (4.0-11.0) 6.9 x10^3/uL (4.0-11.0) Red Blood Count 3.33 x10^6/uL (4.30-5.70) 3.31 x10^6/uL (4.30-5.70) Hemoglobin 8.9 g/dL (13.0-17.5) 8.8 g/dL (13.0-17.5) Hematocrit 27.4 % (39.0-53.0) 27.2 % (39.0-53.0) Mean Corpuscular Volume 82 fL (79-100) 82 fL (79-100) Mean Corpuscular Hemoglobin 27 pg (25-35) 27 pg (25-35) Mean Corpuscular Hemoglobin Concent 33 g/dL (31-37) 32 g/dL (31-37) Red Cell Distribution Width 18.0 % (11.5-14.5) 17.6 % (11.5-14.5) Platelet Count 232 x10^3/uL (140-400) 249 x10^3/uL (140-400) Sodium Level 141 mmol/L (136-145) Potassium Level 4.3 mmol/L (3.5-5.1) Chloride Level 107 mmol/L (98-107) Carbon Dioxide Level 30 mmol/L (21-32) Anion Gap 4 (6-14) Blood Urea Nitrogen 18 mg/dL (8-26) Creatinine 0.8 mg/dL (0.7-1.3) Estimated GFR (Cockcroft-Gault) 106.0 Glucose Level 105 mg/dL (70-99) Calcium Level 8.2 mg/dL (8.5-10.1) Magnesium Level 1.7 mg/dL (1.8-2.4) Laboratory Tests Test 09/22/19 08:05 09/22/19 11:50 O2 Saturation 97 % (92-99) Arterial Blood pH 7.39 (7.35-7.45) Arterial Blood pCO2 at Patient Temp 45 mmHg (35-46) Arterial Blood pO2 at Patient Temp 97 mmHg (75-108) Arterial Blood HCO3 27 mmol/L (21-28) Arterial Blood Base Excess 1 mmol/L (-3-3) FiO2 40 White Blood Count 6.9 x10^3/uL (4.0-11.0) Red Blood Count 3.31 x10^6/uL (4.30-5.70) Hemoglobin 8.8 g/dL (13.0-17.5) Hematocrit 27.2 % (39.0-53.0) Mean Corpuscular Volume 82 fL (79-100) Mean Corpuscular Hemoglobin 27 pg (25-35) Mean Corpuscular Hemoglobin Concent 32 g/dL (31-37) Red Cell Distribution Width 17.6 % (11.5-14.5) Platelet Count 249 x10^3/uL (140-400) Sodium Level 141 mmol/L (136-145) Potassium Level 4.3 mmol/L (3.5-5.1) Chloride Level 107 mmol/L (98-107) Carbon Dioxide Level 30 mmol/L (21-32) Anion Gap 4 (6-14) Blood Urea Nitrogen 18 mg/dL (8-26) Creatinine 0.8 mg/dL (0.7-1.3) Estimated GFR (Cockcroft-Gault) 106.0 Glucose Level 105 mg/dL (70-99) Calcium Level 8.2 mg/dL (8.5-10.1) Magnesium Level 1.7 mg/dL (1.8-2.4) Medications Active Scripts Medications Dose Route/Sig Max Daily Dose Days Date Category Amlodipine Besylate 5 Mg Tablet 5 Mg PO DAILY 07/08/19 Reported Protonix (Pantoprazole Sodium) 40 Mg Tablet.dr 40 Mg PO DAILYAC PRN 30 06/23/19 Rx Proair Hfa Inhaler (Albuterol Sulfate) 8.5 Gm Hfa.aer.ad 1 Puff INH PRN Q4HRS PRN 03/02/18 Reported Symbicort 160-4.5 Mcg Inhaler (Budesonide/Formoterol Fumarate) 10.2 Gm Hfa.aer.ad 2 Puff IH BID 08/13/16 Reported Theophylline (Theophylline Anhydrous) 400 Mg Tablet.er 300 Mg PO BID 08/20/13 Reported Impression . 1. Acute respiratory failure secondary to acute gastrointestinal bleed along with hepatic encephalopathy. extubated 09/15, re-intubated 09/19 2. History of alcoholism, presented with acute gastrointestinal bleed. 3. Status post EGD, was found to have a duodenal ulcer in the first and second portion of the duodenum with a visible vessel. Status post epinephrine injection. 4. Acute blood loss anemia. 5. Mild coagulopathy along with thrombocytopenia. 6. Susped ETOH withdrawl seizures 7. DT Plan . 1. AC mode. less secretions. wean sedation 2. CPAP trial later 4. Monitor chest x-ray prn 5. Monitor hemoglobin. 6. Follow GI recommendations. 7. PPI. 8. SCDs. 9. abx d/w KARLA BIRCH MD Sep 22, 2019 12:48
[2019-09-22] MEDS: DEXMEDETOMIDINE 400 MCG in IV NORMAL SALINE 100ML 96 ML IV PRN (14:14)
--- NOTE | 2019-09-22 14:15 | PDOC ---
PROGRESS NOTES Assessment Assessment Metabolic encephalopathy. Toxic encephalopathy. Respiratory failure. Alcohol intoxication, alcohol level 111. Korsakoff Syndrome. Seizure or seizure like episodes, alcohol related. Pancreatitis, recurrent. Right C7 radiculopathy per history. CAD. HTN. KIMBERLY. Tremors. Left eye injury s/p surgery in 2015. RECOMMENDATIONS/PLAN: Continue life support in ICU at the present time. Alcohol detoxication treatment per medical team. Continue Vit B1 100 mg IV daily. Treat medical diseases. Alcohol abstinence. Avoid Haldol as possible. EEG on 06/18/19: No seizure activity. Objective: On vent. Past Medical History Cardiovascular: CAD, HTN Pulmonary: Asthma, Other ( sleep apnea) CENTRAL NERVOUS SYSTEM: Seizure (Nursing note says that he has had seizures, patient denies) GI: GERD Heme/Onc: Other ( alcoholic pancreatitis) Psych: Anxiety, Addictions, Depression Musculoskeletal: low back pain ( degenerative disc disease) Rheumatologic: Gout Infectious disease: HIV Endocrine: Diabetes ( prediabetes) Past Surgical History No pertinent history Family History CAD Social History Single, mireles, no tobacco or street drugs, drinks alcohol heavily, but not since going home ALLERGY: Reviewed. MEDICATIONS: Refer to [facility] REVIEW OF SYSTEMS: Constitutional: No malnutrition, weight loss, cachexia. Head: No traumatic brain or head injury. Skin: No edema, or rash. Ear: No infection. Eyes: No vision loss, or diplopia. Nose: No bleeding or purulent discharges. Hearing: No hearing decrease. Hearing loss. Neck: No injury. Cardiac: No IL, arrhythmia. Pulmonary: No COPD. GI: No GI Ulcer, GI bleeding. Urinary/genital: No dysuria, incontinence, urinary retention. Endocrine: Over weight.. Skeletomuscular: Weakness.. Neurological: see HP. Psychiatric: Denies drug use/abuse. Otherwise, not [id number] review of systems. PHYSICAL EXAMINATION: General appearance in subacute distress. HEENT: Normocephalic and nontraumatic. Eyes, nose, ears, and throat are unremarkable. Neck is supple. No lymphadenopathy. No Crepitus. Cardiovascular: S1, S2, regular rate and rhythm. Pulmonary: Clear to auscultation bilaterally. Abdomen: Bowel sounds are positive. Abdomen is soft, nontender, and nondistended. Extremities: No rash, lesions. Edema noted in left LE.. No restriction of range of motion NEUROLOGICAL EXAMINATION: On vent. Minimal responsive. Not oriented to time, place and person. Right pupil 1-2 mm reactive, left side 4-5 mm not reactive to lights, chronic. EOMI not elicited. CN: no focal findings. Muscle tone: Decreased. Muscle strength: Minimal movements to stimuli. DTR: 1 Plantar reflex: No response bilaterally Gait: Not able to walk. Sensory exam: minimal response to stimuli. Not able to access cerebellar signs. F-T-N test not performed due to decreased mentation. Objective Objective Vital Signs Date Time Temp Pulse Resp B/P (MAP) Pulse Ox O2 Delivery O2 Flow Rate FiO2 09/22/19 13:02 99 Ventilator 09/22/19 13:00 58 16 140/61 (87) 09/22/19 12:00 98.1 98.1 Intake and Output 09/22/19 07:00 Intake Total 7284 ml Output Total 3775 ml Balance 3509 ml IV Total 5046 ml Tube Feeding 1538 ml Other 700 ml Output Urine Total 3775 ml Gastric Drainage Total 0 ml Vitals Signs Vitals VS - Last 72 Hours, by Label Date Time Temp Pulse Resp B/P (MAP) Pulse Ox O2 Delivery O2 Flow Rate FiO2 09/22/19 13:02 99 Ventilator 09/22/19 13:00 58 16 140/61 (87) 99 Ventilator 09/22/19 12:00 Mechanical Ventilator 09/22/19 12:00 98.1 60 16 120/52 (74) 97 Ventilator 98.1 09/22/19 11:27 99 Ventilator 09/22/19 11:00 57 16 119/60 (79) 99 Ventilator 09/22/19 10:00 61 16 116/50 (72) 99 Ventilator 09/22/19 09:34 99 Ventilator 09/22/19 09:00 57 16 116/49 (71) 99 Ventilator 09/22/19 08:04 99 Ventilator 09/22/19 08:00 98.0 56 16 118/59 (78) 99 Ventilator 98.0 09/22/19 07:56 Mechanical Ventilator 09/22/19 07:00 55 16 109/50 (69) 99 Ventilator 09/22/19 06:00 51 16 100/47 (64) 99 Ventilator 09/22/19 05:30 99 Ventilator 09/22/19 05:00 50 16 115/55 (75) 99 Ventilator 09/22/19 04:53 99 Ventilator 09/22/19 04:23 99 Ventilator 09/22/19 04:00 98.2 54 16 120/48 (72) 99 Ventilator 98.2 09/22/19 04:00 Mechanical Ventilator 09/22/19 03:15 99 Ventilator 09/22/19 03:00 55 16 124/49 (74) 99 Ventilator 09/22/19 02:00 50 16 126/50 (75) 99 Ventilator 09/22/19 01:00 60 16 108/44 (65) 99 Ventilator 09/22/19 00:03 99 Ventilator 09/22/19 00:00 98.7 52 16 121/47 (71) 100 Ventilator 98.7 09/21/19 23:59 Mechanical Ventilator 09/21/19 23:00 53 16 128/47 (74) 99 Ventilator 09/21/19 22:00 60 16 140/59 (86) 99 Ventilator 09/21/19 21:20 98 Ventilator 09/21/19 21:00 55 16 154/63 (93) 98 Ventilator 09/21/19 20:00 99.2 57 16 140/63 (88) 97 Ventilator 99.2 09/21/19 20:00 Mechanical Ventilator 09/21/19 19:37 98 Ventilator 09/21/19 19:00 52 16 158/68 (98) 99 Ventilator 09/21/19 18:16 99 Ventilator 09/21/19 18:00 61 13 148/71 (96) 98 Ventilator 09/21/19 17:54 99 Ventilator 09/21/19 17:24 14 97 Ventilator 09/21/19 17:00 58 17 146/64 (91) 96 Ventilator 09/21/19 16:00 Mechanical Ventilator 09/21/19 16:00 98.6 61 14 122/62 (82) 96 Ventilator 98.6 09/21/19 15:41 99 Ventilator 09/21/19 15:00 60 14 122/60 (80) 98 Ventilator 09/21/19 14:08 98 Ventilator 09/21/19 14:00 57 15 114/53 (73) 98 Ventilator 09/21/19 13:00 60 16 115/54 (74) 98 Ventilator 09/21/19 12:08 98 Ventilator 09/21/19 12:00 Mechanical Ventilator 09/21/19 12:00 98.8 56 13 112/58 (76) 98 Ventilator 98.8 3/10/20 11:55 99 Ventilator 09/21/19 11:25 14 98 Ventilator 09/21/19 11:00 64 13 86/42 (57) 98 Ventilator 09/21/19 10:00 82 13 143/79 (100) 99 Ventilator 09/21/19 09:14 100 Ventilator 09/21/19 09:00 64 13 136/72 (93) 99 Ventilator 09/21/19 08:00 98.4 62 13 123/63 (83) 100 Ventilator 98.4 09/21/19 08:00 Mechanical Ventilator 09/21/19 07:35 99 Ventilator 09/21/19 07:00 60 17 103/51 (68) 99 Ventilator Laboratory Laboratory Laboratory Tests Test 09/22/19 08:05 09/22/19 11:50 O2 Saturation 97 % (92-99) Arterial Blood pH 7.39 (7.35-7.45) Arterial Blood pCO2 at Patient Temp 45 mmHg (35-46) Arterial Blood pO2 at Patient Temp 97 mmHg (75-108) Arterial Blood HCO3 27 mmol/L (21-28) Arterial Blood Base Excess 1 mmol/L (-3-3) FiO2 40 White Blood Count 6.9 x10^3/uL (4.0-11.0) Red Blood Count 3.31 x10^6/uL (4.30-5.70) Hemoglobin 8.8 g/dL (13.0-17.5) Hematocrit 27.2 % (39.0-53.0) Mean Corpuscular Volume 82 fL (79-100) Mean Corpuscular Hemoglobin 27 pg (25-35) Mean Corpuscular Hemoglobin Concent 32 g/dL (31-37) Red Cell Distribution Width 17.6 % (11.5-14.5) Platelet Count 249 x10^3/uL (140-400) Sodium Level 141 mmol/L (136-145) Potassium Level 4.3 mmol/L (3.5-5.1) Chloride Level 107 mmol/L (98-107) Carbon Dioxide Level 30 mmol/L (21-32) Anion Gap 4 (6-14) Blood Urea Nitrogen 18 mg/dL (8-26) Creatinine 0.8 mg/dL (0.7-1.3) Estimated GFR (Cockcroft-Gault) 106.0 Glucose Level 105 mg/dL (70-99) Calcium Level 8.2 mg/dL (8.5-10.1) Magnesium Level 1.7 mg/dL (1.8-2.4) Medication Medications Current Medications Alteplase, Recombinant (Cathflo For Central Catheter Clearance) 1 mg 1X ONCE INT CAT Last administered on 09/22/19at 02:16; Start 09/22/19 at 02:30; Stop 09/22/19 at 02:31; Status DC Alteplase, Recombinant (Cathflo For Central Catheter Clearance) 1 mg 1X ONCE INT CAT Last administered on 09/22/19at 03:43; Start 09/22/19 at 03:30; Stop 09/22/19 at 03:32; Status DC Polyethylene Glycol (miraLAX PACKET) 17 gm PRN DAILY PRN FT CONSTIPATION; Start 09/22/19 at 08:45 Comment Review of Relevant I have reviewed the following items wali (where applicable) has been applied. EFE CRUZ MD Sep 22, 2019 14:15
[2019-09-22] MEDS: IV NORMAL SALINE 1000ML BAG 1,000 ML IV SCH (16:28)
[2019-09-23] VITALS (24 sets, daily range): BP systolic 95–167; BP diastolic 42–94
[2019-09-23] MEDS: PROPOFOL 100 ML IV PRN ×8 (00:14→23:46)
[2019-09-23] MEDS: PIPERACILLIN/TAZOBACTAM 3.375 GM in IV NORMAL SALINE 50ML 50 ML IV SCH ×4 (00:14→17:49)
[2019-09-23] MEDS: ALBUTEROL SULFATE 2.5 MG/3 ML NEBU. NEB SCH ×5 (00:21→20:38)
[2019-09-23] MEDS: AA 4.25 %/CALCIUM/LYTES/D5W 1,000 ML IV SCH (04:45)
[2019-09-23] MEDS: DEXMEDETOMIDINE 400 MCG in IV NORMAL SALINE 100ML 96 ML IV PRN ×3 (06:12→17:49)
[2019-09-23] MEDS: MIDAZOLAM HCL 50 MG in IV NORMAL SALINE 50ML 50 ML IV PRN ×3 (07:22→17:49)
[2019-09-23] MEDS: BUDESONIDE 0.5 MG/2 ML NEBU. NEB SCH ×2 (07:30→20:38)
[2019-09-23 07:51] LABS: BASE EXCESS ABG 3 mmol/L (-3-3); HCO3 ABG 28 mmol/L (21-28); PCO2 ABG 47 mmHg (35-46); PO2 ABG 96 mmHg (75-108); SAT O2 ABG 97 % (92-99)
[2019-09-23 08:07] LABS: BASO # 0.2 x10^3/uL (0.0-0.2); BASO % 3 % (0-3); EOS # 0.4 x10^3/uL (0.0-0.7); EOS % 5 % (0-3); HEMATOCRIT 28.2 % (39.0-53.0); LYMPH # 1.2 x10^3/uL (1.0-4.8); LYMPH % 14 % (24-48); MEAN CORPUSCULAR HEMOGLOBIN 26 pg (25-35); MEAN CORPUSCULAR HGB CONC 32 g/dL (31-37); MEAN CORPUSCULAR VOLUME 82 fL (79-100); MONO # 1.3 x10^3/uL (0.0-1.1); MONO % 16 % (0-9); NEUT # 5.3 x10^3/uL (1.8-7.7); NEUT % 63 % (31-73); PLATELET COUNT 307 x10^3/uL (140-400); RED BLOOD COUNT 3.42 x10^6/uL (4.30-5.70); RED CELL DISTRIBUTION WIDTH 17.2 % (11.5-14.5); WHITE BLOOD COUNT 8.4 x10^3/uL (4.0-11.0)
[2019-09-23 08:22] LABS: CALCIUM 8.4 mg/dL (8.5-10.1); CREATININE 0.7 mg/dL (0.7-1.3); GFR 123.7; POTASSIUM 4.4 mmol/L (3.5-5.1)
[2019-09-23] MEDS: hydrALAZINE 20 MG/ML VIAL. IVP PRN (08:56)
[2019-09-23] MEDS: PANTOPRAZOLE IV PUSH 40 MG VIAL. IVP SCH ×2 (08:56→21:21)
[2019-09-23] MEDS: THIAMINE INJ 100 MG in IV DEXTROSE 5% 50 ML IV SCH (08:57)
--- NOTE | 2019-09-23 09:44 | PDOC ---
Objective: Objective: Nurse concerned for withdrawal. Tolerating tube feeds. Vital Signs: Vital Signs Date Time Temp Pulse Resp B/P (MAP) Pulse Ox O2 Delivery O2 Flow Rate FiO2 09/23/19 09:22 97 Ventilator 09/23/19 09:00 68 16 118/54 (75) 09/23/19 08:00 98.8 98.8 09/23/19 02:47 10.0 Labs: Laboratory Tests Test 09/22/19 11:50 09/23/19 07:25 White Blood Count 6.9 x10^3/uL 8.4 x10^3/uL Red Blood Count 3.31 x10^6/uL 3.42 x10^6/uL Hemoglobin 8.8 g/dL 9.0 g/dL Hematocrit 27.2 % 28.2 % Mean Corpuscular Volume 82 fL 82 fL Mean Corpuscular Hemoglobin 27 pg 26 pg Mean Corpuscular Hemoglobin Concent 32 g/dL 32 g/dL Red Cell Distribution Width 17.6 % 17.2 % Platelet Count 249 x10^3/uL 307 x10^3/uL Sodium Level 141 mmol/L 143 mmol/L Potassium Level 4.3 mmol/L 4.4 mmol/L Chloride Level 107 mmol/L 107 mmol/L Carbon Dioxide Level 30 mmol/L 31 mmol/L Anion Gap 4 5 Blood Urea Nitrogen 18 mg/dL 14 mg/dL Creatinine 0.8 mg/dL 0.7 mg/dL Estimated GFR (Cockcroft-Gault) 106.0 123.7 Glucose Level 105 mg/dL 110 mg/dL Calcium Level 8.2 mg/dL 8.4 mg/dL Magnesium Level 1.7 mg/dL Neutrophils (%) (Auto) 63 % Lymphocytes (%) (Auto) 14 % Monocytes (%) (Auto) 16 % Eosinophils (%) (Auto) 5 % Basophils (%) (Auto) 3 % Neutrophils # (Auto) 5.3 x10^3/uL Lymphocytes # (Auto) 1.2 x10^3/uL Monocytes # (Auto) 1.3 x10^3/uL Eosinophils # (Auto) 0.4 x10^3/uL Basophils # (Auto) 0.2 x10^3/uL PE: GEN: intubated LUNGS: vent, clear HEART: RRR ABD: quiet BS, soft NEURO/PSYCH: eyes open, some sedation A/P: Alcohol abuse/withdrawal, resp failure Anemia - stable Erosive esophagitis, DU - s/p endotherapy 09/15/19 - on IV PPI -- Stable GI-smith, continue same. Hemodynamically unstable?: No Is patient in severe pain?: No Is NPO status required?: Yes (OG feeds ok) MESSI GORE Sep 23, 2019 09:44
[2019-09-23 10:23] LABS: FIO2 ABG 40%
--- NOTE | 2019-09-23 12:11 | PDOC ---
[employer] PROGRESS NOTE Chief Complaint Chief Complaint 0. Respiratory failure on the vent 1. acute UGI BLEED 2. severe diffuse hepatic steatosis. 3. Erosive esophagitis, epinephrine injection duodenal ulcer in the first and second portions of duodenum with a visible vessel, status post epinephrine injection. 4. polysubstance abuse, ALCOHOL, COCAINE, THC 5. ELECTROLYTE IMBALANCE 6. MALIGNANT HTN History of Present Illness History of Present Illness [id number] Patient seen and examined in the ICU He remains mechanically ventilated with an OG feeds running at 55 mL/h Vent settings as follows assist-control/10/500/40% with 5 of PEEP Chart reviewed Discussed with RN He is critically ill [id number] Patient seen and examined in the ICU He remains critically ill On mechanical ventilation with assist control/16/500/40% Sedated with propofol and fentanyl Has PPN and OG feeds running Chart reviewed Discussed with RN [id number] Patient seen and examined in the ICU once again He remains intubated and on assist-control/16/500/40% with 5 of PEEP Sedated with Precedex Getting TPN and albumin Also on Versed levo fed He is critically ill Discussed with RN Chart reviewed [id number] Patient seen and examined in the ICU He is intubated Assist-control/16/500/60% FiO2 Chart reviewed Discussed with RN Vitals/I&O Vitals/I&O: Vital Signs Date Time Temp Pulse Resp B/P (MAP) Pulse Ox O2 Delivery O2 Flow Rate FiO2 09/23/19 12:00 98.6 61 16 95/42 (59) 97 Ventilator 98.6 09/23/19 02:47 10.0 I & O 09/22/19 09/22/19 09/23/19 15:00 23:00 07:00 Intake Total 401 ml 2905 ml 2855 ml Output Total 1585 ml 1820 ml 1700 ml Balance -1184 ml 1085 ml 1155 ml Physical Exam Physical Exam: SEDATED ON VENT General: No acute distress Heart: Regular rate, Normal S1, Normal S2 Lungs: Other (rhonchi) Abdomen: Normal bowel sounds, Soft, No tenderness Extremities: No cyanosis, No edema Skin: No rashes Labs Labs: Laboratory Tests Test 09/23/19 07:25 White Blood Count 8.4 x10^3/uL (4.0-11.0) Red Blood Count 3.42 x10^6/uL (4.30-5.70) Hemoglobin 9.0 g/dL (13.0-17.5) Hematocrit 28.2 % (39.0-53.0) Mean Corpuscular Volume 82 fL (79-100) Mean Corpuscular Hemoglobin 26 pg (25-35) Mean Corpuscular Hemoglobin Concent 32 g/dL (31-37) Red Cell Distribution Width 17.2 % (11.5-14.5) Platelet Count 307 x10^3/uL (140-400) Neutrophils (%) (Auto) 63 % (31-73) Lymphocytes (%) (Auto) 14 % (24-48) Monocytes (%) (Auto) 16 % (0-9) Eosinophils (%) (Auto) 5 % (0-3) Basophils (%) (Auto) 3 % (0-3) Neutrophils # (Auto) 5.3 x10^3/uL (1.8-7.7) Lymphocytes # (Auto) 1.2 x10^3/uL (1.0-4.8) Monocytes # (Auto) 1.3 x10^3/uL (0.0-1.1) Eosinophils # (Auto) 0.4 x10^3/uL (0.0-0.7) Basophils # (Auto) 0.2 x10^3/uL (0.0-0.2) O2 Saturation 97 % (92-99) Arterial Blood pH 7.40 (7.35-7.45) Arterial Blood pCO2 at Patient Temp 47 mmHg (35-46) Arterial Blood pO2 at Patient Temp 96 mmHg (75-108) Arterial Blood HCO3 28 mmol/L (21-28) Arterial Blood Base Excess 3 mmol/L (-3-3) FiO2 40% Sodium Level 143 mmol/L (136-145) Potassium Level 4.4 mmol/L (3.5-5.1) Chloride Level 107 mmol/L (98-107) Carbon Dioxide Level 31 mmol/L (21-32) Anion Gap 5 (6-14) Blood Urea Nitrogen 14 mg/dL (8-26) Creatinine 0.7 mg/dL (0.7-1.3) Estimated GFR (Cockcroft-Gault) 123.7 Glucose Level 110 mg/dL (70-99) Calcium Level 8.4 mg/dL (8.5-10.1) Review of Systems Review of Systems: Unable to obtain Assessment and Plan Assessmemt and Plan Problems Medical Problems: (1) GI bleed Status: Acute 1. acute UGI BLEED 2. severe diffuse hepatic steatosis. 3. Erosive esophagitis, epinephrine injection duodenal ulcer in the first and second portions of duodenum with a visible vessel, status post epinephrine injection. 4. polysubstance abuse, ALCOHOL, COCAINE, THC 5. ELECTROLYTE IMBALANCE 6. MALIGNANT HTN Plan Continue fentanyl and propofol ICU monitoring GI following Trying to wean off Levaquin fed Vent weaning When necessary transfusions alcohol withdrawal protocol SCD'S IV proton pump inhibitors Trend labs When necessary hydralazine He is still critically ill Long-term prognosis extremely guarded especially if he doesn't quit drinking Total time 32 minutes Comment Review of Relevant I have reviewed the following items wali (where applicable) has been applied. Hemodynamically unstable?: No Is patient in severe pain?: No Is NPO status required?: Yes (OG feeds ok) MAY FROST III DO Sep 23, 2019 12:11
--- NOTE | 2019-09-23 13:02 | PDOC ---
PULMONARY PROGRESS NOTES Subjective Pt. is extubated 09/15, re-intubated early am 09/19 due to DT/ increase work of breathing ET with thick secretions, improved now AC mode Vitals Vital Signs Date Time Temp Pulse Resp B/P (MAP) Pulse Ox O2 Delivery O2 Flow Rate FiO2 09/23/19 12:21 99 Ventilator 09/23/19 12:00 98.6 61 16 95/42 (59) 98.6 09/23/19 02:47 10.0 Lungs: Other (rhonchi) Cardiovascular: S1, S2 Abdomen: Soft Extremities: No Edema Skin: Warm Labs Laboratory Tests Test 09/22/19 08:05 09/22/19 11:50 09/23/19 07:25 O2 Saturation 97 % (92-99) 97 % (92-99) Arterial Blood pH 7.39 (7.35-7.45) 7.40 (7.35-7.45) Arterial Blood pCO2 at Patient Temp 45 mmHg (35-46) 47 mmHg (35-46) Arterial Blood pO2 at Patient Temp 97 mmHg (75-108) 96 mmHg (75-108) Arterial Blood HCO3 27 mmol/L (21-28) 28 mmol/L (21-28) Arterial Blood Base Excess 1 mmol/L (-3-3) 3 mmol/L (-3-3) FiO2 40 40% White Blood Count 6.9 x10^3/uL (4.0-11.0) 8.4 x10^3/uL (4.0-11.0) Red Blood Count 3.31 x10^6/uL (4.30-5.70) 3.42 x10^6/uL (4.30-5.70) Hemoglobin 8.8 g/dL (13.0-17.5) 9.0 g/dL (13.0-17.5) Hematocrit 27.2 % (39.0-53.0) 28.2 % (39.0-53.0) Mean Corpuscular Volume 82 fL (79-100) 82 fL (79-100) Mean Corpuscular Hemoglobin 27 pg (25-35) 26 pg (25-35) Mean Corpuscular Hemoglobin Concent 32 g/dL (31-37) 32 g/dL (31-37) Red Cell Distribution Width 17.6 % (11.5-14.5) 17.2 % (11.5-14.5) Platelet Count 249 x10^3/uL (140-400) 307 x10^3/uL (140-400) Sodium Level 141 mmol/L (136-145) 143 mmol/L (136-145) Potassium Level 4.3 mmol/L (3.5-5.1) 4.4 mmol/L (3.5-5.1) Chloride Level 107 mmol/L (98-107) 107 mmol/L (98-107) Carbon Dioxide Level 30 mmol/L (21-32) 31 mmol/L (21-32) Anion Gap 4 (6-14) 5 (6-14) Blood Urea Nitrogen 18 mg/dL (8-26) 14 mg/dL (8-26) Creatinine 0.8 mg/dL (0.7-1.3) 0.7 mg/dL (0.7-1.3) Estimated GFR (Cockcroft-Gault) 106.0 123.7 Glucose Level 105 mg/dL (70-99) 110 mg/dL (70-99) Calcium Level 8.2 mg/dL (8.5-10.1) 8.4 mg/dL (8.5-10.1) Magnesium Level 1.7 mg/dL (1.8-2.4) Neutrophils (%) (Auto) 63 % (31-73) Lymphocytes (%) (Auto) 14 % (24-48) Monocytes (%) (Auto) 16 % (0-9) Eosinophils (%) (Auto) 5 % (0-3) Basophils (%) (Auto) 3 % (0-3) Neutrophils # (Auto) 5.3 x10^3/uL (1.8-7.7) Lymphocytes # (Auto) 1.2 x10^3/uL (1.0-4.8) Monocytes # (Auto) 1.3 x10^3/uL (0.0-1.1) Eosinophils # (Auto) 0.4 x10^3/uL (0.0-0.7) Basophils # (Auto) 0.2 x10^3/uL (0.0-0.2) Laboratory Tests Test 09/23/19 07:25 White Blood Count 8.4 x10^3/uL (4.0-11.0) Red Blood Count 3.42 x10^6/uL (4.30-5.70) Hemoglobin 9.0 g/dL (13.0-17.5) Hematocrit 28.2 % (39.0-53.0) Mean Corpuscular Volume 82 fL (79-100) Mean Corpuscular Hemoglobin 26 pg (25-35) Mean Corpuscular Hemoglobin Concent 32 g/dL (31-37) Red Cell Distribution Width 17.2 % (11.5-14.5) Platelet Count 307 x10^3/uL (140-400) Neutrophils (%) (Auto) 63 % (31-73) Lymphocytes (%) (Auto) 14 % (24-48) Monocytes (%) (Auto) 16 % (0-9) Eosinophils (%) (Auto) 5 % (0-3) Basophils (%) (Auto) 3 % (0-3) Neutrophils # (Auto) 5.3 x10^3/uL (1.8-7.7) Lymphocytes # (Auto) 1.2 x10^3/uL (1.0-4.8) Monocytes # (Auto) 1.3 x10^3/uL (0.0-1.1) Eosinophils # (Auto) 0.4 x10^3/uL (0.0-0.7) Basophils # (Auto) 0.2 x10^3/uL (0.0-0.2) O2 Saturation 97 % (92-99) Arterial Blood pH 7.40 (7.35-7.45) Arterial Blood pCO2 at Patient Temp 47 mmHg (35-46) Arterial Blood pO2 at Patient Temp 96 mmHg (75-108) Arterial Blood HCO3 28 mmol/L (21-28) Arterial Blood Base Excess 3 mmol/L (-3-3) FiO2 40% Sodium Level 143 mmol/L (136-145) Potassium Level 4.4 mmol/L (3.5-5.1) Chloride Level 107 mmol/L (98-107) Carbon Dioxide Level 31 mmol/L (21-32) Anion Gap 5 (6-14) Blood Urea Nitrogen 14 mg/dL (8-26) Creatinine 0.7 mg/dL (0.7-1.3) Estimated GFR (Cockcroft-Gault) 123.7 Glucose Level 110 mg/dL (70-99) Calcium Level 8.4 mg/dL (8.5-10.1) Medications Active Scripts Medications Dose Route/Sig Max Daily Dose Days Date Category Amlodipine Besylate 5 Mg Tablet 5 Mg PO DAILY 07/08/19 Reported Protonix (Pantoprazole Sodium) 40 Mg Tablet.dr 40 Mg PO DAILYAC PRN 30 06/23/19 Rx Proair Hfa Inhaler (Albuterol Sulfate) 8.5 Gm Hfa.aer.ad 1 Puff INH PRN Q4HRS PRN 03/02/18 Reported Symbicort 160-4.5 Mcg Inhaler (Budesonide/Formoterol Fumarate) 10.2 Gm Hfa.aer.ad 2 Puff IH BID 08/13/16 Reported Theophylline (Theophylline Anhydrous) 400 Mg Tablet.er 300 Mg PO BID 08/20/13 Reported Impression . 1. Acute respiratory failure secondary to acute gastrointestinal bleed along with hepatic encephalopathy. extubated 09/15, re-intubated 09/19 2. History of alcoholism, presented with acute gastrointestinal bleed. 3. Status post EGD, was found to have a duodenal ulcer in the first and second portion of the duodenum with a visible vessel. Status post epinephrine injection. 4. Acute blood loss anemia. 5. Mild coagulopathy along with thrombocytopenia. 6. Susped ETOH withdrawl seizures 7. DT Plan . 1. AC mode. less secretions. had etoh withrawl when off sedation 2. hold off CPAP 4. Monitor chest x-ray prn 5. Monitor hemoglobin. 6. Follow GI recommendations. 7. PPI. 8. SCDs. 9. abx d/w KARLA BIRCH MD Sep 23, 2019 13:02
--- NOTE | 2019-09-23 13:39 | PDOC ---
PROGRESS NOTES Assessment Assessment Metabolic encephalopathy. Toxic encephalopathy. Respiratory failure. Alcohol intoxication, alcohol level 111. Korsakoff Syndrome. Seizure or seizure like episodes, alcohol related. Pancreatitis, recurrent. Right C7 radiculopathy per history. CAD. HTN. KIMBERLY. Tremors. Left eye injury s/p surgery in 2015. RECOMMENDATIONS/PLAN: Continue life support in ICU at the present time. Alcohol detoxication treatment per medical team. Continue Vit B1 100 mg IV daily. Treat medical diseases. Alcohol abstinence. Avoid Haldol as possible. EEG on 06/18/19: No seizure activity. Objective: On vent. Past Medical History Cardiovascular: CAD, HTN Pulmonary: Asthma, Other ( sleep apnea) CENTRAL NERVOUS SYSTEM: Seizure (Nursing note says that he has had seizures, patient denies) GI: GERD Heme/Onc: Other ( alcoholic pancreatitis) Psych: Anxiety, Addictions, Depression Musculoskeletal: low back pain ( degenerative disc disease) Rheumatologic: Gout Infectious disease: HIV Endocrine: Diabetes ( prediabetes) Past Surgical History No pertinent history Family History CAD Social History Single, mireles, no tobacco or street drugs, drinks alcohol heavily, but not since going home ALLERGY: Reviewed. MEDICATIONS: Refer to [facility] REVIEW OF SYSTEMS: Constitutional: No malnutrition, weight loss, cachexia. Head: No traumatic brain or head injury. Skin: No edema, or rash. Ear: No infection. Eyes: No vision loss, or diplopia. Nose: No bleeding or purulent discharges. Hearing: No hearing decrease. Hearing loss. Neck: No injury. Cardiac: No MD, arrhythmia. Pulmonary: No COPD. GI: No GI Ulcer, GI bleeding. Urinary/genital: No dysuria, incontinence, urinary retention. Endocrine: Over weight.. Skeletomuscular: Weakness.. Neurological: see HP. Psychiatric: Denies drug use/abuse. Otherwise, not [id number] review of systems. PHYSICAL EXAMINATION: General appearance in subacute distress. HEENT: Normocephalic and nontraumatic. Eyes, nose, ears, and throat are unremarkable. Neck is supple. No lymphadenopathy. No Crepitus. Cardiovascular: S1, S2, regular rate and rhythm. Pulmonary: Clear to auscultation bilaterally. Abdomen: Bowel sounds are positive. Abdomen is soft, nontender, and nondistended. Extremities: No rash, lesions. Edema noted in left LE.. No restriction of range of motion NEUROLOGICAL EXAMINATION: On vent. Decreased responsive. Not oriented to time, place and person. Right pupil 1-2 mm reactive, left side 4-5 mm not reactive to lights, chronic. EOMI not elicited. CN: no focal findings. Muscle tone: Decreased. Muscle strength: Minimal movements to stimuli. DTR: 1 Plantar reflex: No response bilaterally Gait: Not able to walk. Sensory exam: minimal response to stimuli. Not able to access cerebellar signs. F-T-N test not performed due to decreased mentation. Objective Objective Vital Signs Date Time Temp Pulse Resp B/P (MAP) Pulse Ox O2 Delivery O2 Flow Rate FiO2 09/23/19 13:00 73 16 105/56 (72) 99 Ventilator 09/23/19 12:00 98.6 98.6 09/23/19 02:47 10.0 Intake and Output 09/23/19 07:00 Intake Total 6161 ml Output Total 5105 ml Balance 1056 ml IV Total 3589 ml Tube Feeding 1972 ml Other 600 ml Output Urine Total 5105 ml Gastric Drainage Total 0 ml Vitals Signs Vitals VS - Last 72 Hours, by Label Date Time Temp Pulse Resp B/P (MAP) Pulse Ox O2 Delivery O2 Flow Rate FiO2 09/23/19 13:00 73 16 105/56 (72) 99 Ventilator 09/23/19 12:21 99 Ventilator 09/23/19 12:00 98.6 61 16 95/42 (59) 97 Ventilator 98.6 09/23/19 11:52 Mechanical Ventilator 09/23/19 11:12 97 Ventilator 09/23/19 11:00 60 16 106/45 (65) 97 Ventilator 09/23/19 10:00 66 16 118/56 (76) 98 Ventilator 09/23/19 09:22 97 Ventilator 09/23/19 09:00 68 16 118/54 (75) 98 Ventilator 09/23/19 08:56 64 166/85 09/23/19 08:00 Mechanical Ventilator 09/23/19 08:00 98.8 64 16 166/85 (112) 100 Ventilator 98.8 09/23/19 07:36 99 Ventilator 09/23/19 07:00 61 16 162/86 (111) 100 Ventilator 09/23/19 06:00 62 16 154/83 (106) 100 Ventilator 09/23/19 05:42 99 Ventilator 09/23/19 05:00 66 16 164/85 (111) 100 Ventilator 09/23/19 04:00 98.5 60 16 167/94 (118) 99 Ventilator 98.5 09/23/19 04:00 Mechanical Ventilator 09/23/19 03:38 99 Ventilator 09/23/19 03:00 63 16 156/79 (104) 100 Ventilator 09/23/19 02:47 99 Ventilator 10.0 09/23/19 02:10 99 Ventilator 10.0 09/23/19 02:00 60 16 151/82 (105) 100 Ventilator 09/23/19 01:33 100 Ventilator 09/23/19 01:00 56 16 143/74 (97) 99 Ventilator 09/23/19 00:19 99 Ventilator 09/23/19 00:00 98.6 59 16 139/63 (88) 99 Ventilator 98.6 09/22/19 23:59 Mechanical Ventilator 09/22/19 23:00 57 16 150/73 (98) 99 Ventilator 09/22/19 22:03 100 Ventilator 09/22/19 22:00 59 16 150/62 (91) 98 Ventilator 09/22/19 21:00 62 16 158/87 (110) 98 Ventilator 09/22/19 20:56 99 Ventilator 09/22/19 20:26 99 Ventilator 09/22/19 20:01 99 Ventilator 09/22/19 20:00 Mechanical Ventilator 09/22/19 20:00 98.2 60 16 158/87 (110) 99 Ventilator 98.2 09/22/19 19:00 54 16 144/71 (95) 98 Ventilator 09/22/19 18:00 60 16 150/74 (99) 98 Ventilator 09/22/19 17:09 99 Ventilator 09/22/19 17:00 58 16 172/89 (116) 99 Ventilator 09/22/19 16:00 98.0 59 16 142/71 (94) 100 Ventilator 98.0 09/22/19 15:50 Mechanical Ventilator 09/22/19 15:17 99 Ventilator 09/22/19 15:00 53 16 156/79 (104) 100 Ventilator 09/22/19 14:00 57 16 134/60 (84) 99 Ventilator 09/22/19 13:02 99 Ventilator 09/22/19 13:00 58 16 140/61 (87) 99 Ventilator 09/22/19 12:00 Mechanical Ventilator 09/22/19 12:00 98.1 60 16 120/52 (74) 97 Ventilator 98.1 09/22/19 11:27 99 Ventilator 09/22/19 11:00 57 16 119/60 (79) 99 Ventilator 09/22/19 10:00 61 16 116/50 (72) 99 Ventilator 09/22/19 09:34 99 Ventilator 09/22/19 09:00 57 16 116/49 (71) 99 Ventilator 09/22/19 08:04 99 Ventilator 09/22/19 08:00 98.0 56 16 118/59 (78) 99 Ventilator 98.0 09/22/19 07:56 Mechanical Ventilator 09/22/19 07:00 55 16 109/50 (69) 99 Ventilator Laboratory Laboratory Laboratory Tests Test 09/23/19 07:25 White Blood Count 8.4 x10^3/uL (4.0-11.0) Red Blood Count 3.42 x10^6/uL (4.30-5.70) Hemoglobin 9.0 g/dL (13.0-17.5) Hematocrit 28.2 % (39.0-53.0) Mean Corpuscular Volume 82 fL (79-100) Mean Corpuscular Hemoglobin 26 pg (25-35) Mean Corpuscular Hemoglobin Concent 32 g/dL (31-37) Red Cell Distribution Width 17.2 % (11.5-14.5) Platelet Count 307 x10^3/uL (140-400) Neutrophils (%) (Auto) 63 % (31-73) Lymphocytes (%) (Auto) 14 % (24-48) Monocytes (%) (Auto) 16 % (0-9) Eosinophils (%) (Auto) 5 % (0-3) Basophils (%) (Auto) 3 % (0-3) Neutrophils # (Auto) 5.3 x10^3/uL (1.8-7.7) Lymphocytes # (Auto) 1.2 x10^3/uL (1.0-4.8) Monocytes # (Auto) 1.3 x10^3/uL (0.0-1.1) Eosinophils # (Auto) 0.4 x10^3/uL (0.0-0.7) Basophils # (Auto) 0.2 x10^3/uL (0.0-0.2) O2 Saturation 97 % (92-99) Arterial Blood pH 7.40 (7.35-7.45) Arterial Blood pCO2 at Patient Temp 47 mmHg (35-46) Arterial Blood pO2 at Patient Temp 96 mmHg (75-108) Arterial Blood HCO3 28 mmol/L (21-28) Arterial Blood Base Excess 3 mmol/L (-3-3) FiO2 40% Sodium Level 143 mmol/L (136-145) Potassium Level 4.4 mmol/L (3.5-5.1) Chloride Level 107 mmol/L (98-107) Carbon Dioxide Level 31 mmol/L (21-32) Anion Gap 5 (6-14) Blood Urea Nitrogen 14 mg/dL (8-26) Creatinine 0.7 mg/dL (0.7-1.3) Estimated GFR (Cockcroft-Gault) 123.7 Glucose Level 110 mg/dL (70-99) Calcium Level 8.4 mg/dL (8.5-10.1) Comment Review of Relevant I have reviewed the following items wali (where applicable) has been applied. EFE CRUZ MD Sep 23, 2019 13:39
[2019-09-23] MEDS: IV NORMAL SALINE 1000ML BAG 1,000 ML IV SCH (15:35)
[2019-09-24] VITALS (24 sets, daily range): BP systolic 116–195; BP diastolic 50–108
[2019-09-24] MEDS: PIPERACILLIN/TAZOBACTAM 3.375 GM in IV NORMAL SALINE 50ML 50 ML IV SCH ×4 (00:48→18:06)
[2019-09-24] MEDS: PROPOFOL 100 ML IV PRN ×3 (02:55→09:12)
[2019-09-24] MEDS: MIDAZOLAM HCL 50 MG in IV NORMAL SALINE 50ML 50 ML IV PRN (06:03)
[2019-09-24] MEDS: PANTOPRAZOLE IV PUSH 40 MG VIAL. IVP SCH ×2 (08:10→21:16)
[2019-09-24] MEDS: THIAMINE INJ 100 MG in IV DEXTROSE 5% 50 ML IV SCH (08:11)
--- NOTE | 2019-09-24 08:43 | PDOC ---
PROGRESS NOTES Assessment Problems Medical Problems: (1) GI bleed Status: Acute Metabolic encephalopathy. Toxic encephalopathy. Respiratory failure. Alcohol intoxication, alcohol level 111. Korsakoff Syndrome. Seizure or seizure like episodes, alcohol/withdrawal related. Pancreatitis, recurrent. Right C7 radiculopathy per history. CAD. HTN. KIMBERLY. Tremors. Left eye injury s/p surgery in 2014. thin Plan Continue Vit B1 100 mg IV daily. Treat medical diseases. Alcohol abstinence. Avoid Haldol as possible. Subjective none Objective Vital Signs Date Time Temp Pulse Resp B/P (MAP) Pulse Ox O2 Delivery O2 Flow Rate FiO2 09/24/19 06:37 Ventilator 09/24/19 06:00 48 16 154/88 (110) 99 09/24/19 04:00 97.7 97.7 Intake and Output 09/24/19 06:59 Intake Total 5241 ml Output Total 4475 ml Balance 766 ml IV Total 2502 ml Tube Feeding 2139 ml Other 600 ml Output Urine Total 4475 ml Gastric Drainage Total 0 ml PHYSICAL EXAM Sedated on ventilator right people reacts, left pupil large, unreactive EOMI. CN: no focal findings. Muscle tone: normal. Muscle strength: slight movement to pain DTR: 1+ Plantar reflex: silent Gait: not examined in bed. Sensory exam: not cooperative. Cerebellar: not cooperative Review of Relevant I have reviewed the following items wali (where applicable) has been applied. Labs Laboratory Tests Test 09/22/19 11:50 09/23/19 07:25 White Blood Count 6.9 x10^3/uL (4.0-11.0) 8.4 x10^3/uL (4.0-11.0) Red Blood Count 3.31 x10^6/uL (4.30-5.70) 3.42 x10^6/uL (4.30-5.70) Hemoglobin 8.8 g/dL (13.0-17.5) 9.0 g/dL (13.0-17.5) Hematocrit 27.2 % (39.0-53.0) 28.2 % (39.0-53.0) Mean Corpuscular Volume 82 fL (79-100) 82 fL (79-100) Mean Corpuscular Hemoglobin 27 pg (25-35) 26 pg (25-35) Mean Corpuscular Hemoglobin Concent 32 g/dL (31-37) 32 g/dL (31-37) Red Cell Distribution Width 17.6 % (11.5-14.5) 17.2 % (11.5-14.5) Platelet Count 249 x10^3/uL (140-400) 307 x10^3/uL (140-400) Sodium Level 141 mmol/L (136-145) 143 mmol/L (136-145) Potassium Level 4.3 mmol/L (3.5-5.1) 4.4 mmol/L (3.5-5.1) Chloride Level 107 mmol/L (98-107) 107 mmol/L (98-107) Carbon Dioxide Level 30 mmol/L (21-32) 31 mmol/L (21-32) Anion Gap 4 (6-14) 5 (6-14) Blood Urea Nitrogen 18 mg/dL (8-26) 14 mg/dL (8-26) Creatinine 0.8 mg/dL (0.7-1.3) 0.7 mg/dL (0.7-1.3) Estimated GFR (Cockcroft-Gault) 106.0 123.7 Glucose Level 105 mg/dL (70-99) 110 mg/dL (70-99) Calcium Level 8.2 mg/dL (8.5-10.1) 8.4 mg/dL (8.5-10.1) Magnesium Level 1.7 mg/dL (1.8-2.4) Neutrophils (%) (Auto) 63 % (31-73) Lymphocytes (%) (Auto) 14 % (24-48) Monocytes (%) (Auto) 16 % (0-9) Eosinophils (%) (Auto) 5 % (0-3) Basophils (%) (Auto) 3 % (0-3) Neutrophils # (Auto) 5.3 x10^3/uL (1.8-7.7) Lymphocytes # (Auto) 1.2 x10^3/uL (1.0-4.8) Monocytes # (Auto) 1.3 x10^3/uL (0.0-1.1) Eosinophils # (Auto) 0.4 x10^3/uL (0.0-0.7) Basophils # (Auto) 0.2 x10^3/uL (0.0-0.2) O2 Saturation 97 % (92-99) Arterial Blood pH 7.40 (7.35-7.45) Arterial Blood pCO2 at Patient Temp 47 mmHg (35-46) Arterial Blood pO2 at Patient Temp 96 mmHg (75-108) Arterial Blood HCO3 28 mmol/L (21-28) Arterial Blood Base Excess 3 mmol/L (-3-3) FiO2 40% Medications Current Medications Ondansetron HCl (Zofran) 4 mg STK-MED ONCE .ROUTE ; Start 09/14/19 at 17:54; Stop 09/14/19 at 17:54; Status DC Lorazepam (Ativan Inj) 2 mg STK-MED ONCE .ROUTE ; Start 09/14/19 at 17:55; Stop 09/14/19 at 17:55; Status DC Lorazepam (Ativan Inj) 2 mg 1X ONCE IVP Last administered on 09/14/19at 18:05; Start 09/14/19 at 18:00; Stop 09/14/19 at 18:09; Status DC Ondansetron HCl (Zofran) 4 mg 1X ONCE IVP Last administered on 09/14/19at 18:04; Start 09/14/19 at 18:00; Stop 09/14/19 at 18:09; Status DC Pantoprazole Sodium (PROTONIX VIAL for IV PUSH) 40 mg 1X ONCE IVP Last administered on 09/14/19at 18:43; Start 09/14/19 at 18:00; Stop 09/14/19 at 18:09; Status DC Sodium Chloride 1,000 ml @ 1,000 mls/hr 1X ONCE IV Last administered on 09/14/19at 19:10; Start 09/14/19 at 18:00; Stop 09/14/19 at 19:00; Status DC Multivitamins 10 ml/Thiamine HCl 100 mg/Folic Acid 1 mg/Sodium Chloride 1,011.2 ml @ 100 mls/ hr DAILY IV Last administered on 09/18/19at 09:37; Start 09/14/19 at 18:30; Stop 09/18/19 at 19:07; Status DC Lorazepam (Ativan Inj) 2 mg PRN Q1HR PRN IV For CIWA 8-14 Last administered on 09/23/19at 09:25; Start 09/14/19 at 18:30 Lorazepam (Ativan Inj) 4 mg PRN Q1HR PRN IV For CIWA 15 or greater Last administered on 09/21/19at 08:54; Start 09/14/19 at 18:30 Pantoprazole Sodium 80 mg/ Sodium Chloride 100 ml @ 10 mls/hr 1X ONCE IV Last administered on 09/14/19at 18:44; Start 09/14/19 at 18:30; Stop 09/15/19 at 04:29; Status DC Iohexol (Omnipaque 300 Mg/ml) 75 ml 1X ONCE IV ; Start 09/14/19 at 19:00; Stop 09/14/19 at 19:01; Status DC Info (CONTRAST GIVEN -- Rx MONITORING) 1 each PRN DAILY PRN MC SEE COMMENTS; Start 09/14/19 at 19:00; Stop 09/16/19 at 18:59; Status DC Ondansetron HCl (Zofran) 4 mg PRN Q8HRS PRN IV NAUSEA/VOMITING; Start 09/14/19 a t 19:30; Stop 09/15/19 at 19:29; Status DC Sodium Chloride 1,000 ml @ 125 mls/hr Q8H IV Last administered on 09/15/19at 15:39; Start 09/14/19 at 19:19; Stop 09/15/19 at 19:18; Status DC Etomidate (Amidate) 20 mg STK-MED ONCE IV ; Start 09/14/19 at 21:22; Stop 09/14/19 at 21:22; Status DC Lidocaine HCl (Lidocaine Pf 2% Vial) 5 ml STK-MED ONCE .ROUTE ; Start 09/14/19 at 21:22; Stop 09/14/19 at 21:22; Status DC Rocuronium [place] (Zemuron) 50 mg STK-MED ONCE .ROUTE ; Start 09/14/19 at 21:23; Stop 09/14/19 at 21:23; Status DC Phenylephrine HCl (PHENYLEPHRINE in 0.9% NACL PF) 1 mg STK-MED ONCE IV ; Start 09/14/19 at 21:24; Stop 09/14/19 at 21:24; Status DC Propofol 100 ml @ 0 mls/hr CONT PRN IV SEE PROTOCOL Last administered on 09/24/19at 06:03; Start 09/14/19 at 22:30 Fentanyl Citrate (Fentanyl 2ml Vial) 25 mcg PRN Q1HR PRN IV SEE COMMENTS; Start 09/14/19 at 22:30; Stop 09/15/19 at 06:26; Status DC Fentanyl Citrate (Fentanyl 2ml Vial) 50 mcg PRN Q1HR PRN IV SEE COMMENTS; Start 09/14/19 at 22:30; Stop 09/15/19 at 06:26; Status DC Epinephrine HCl (EPINEPHrine SYRINGE) 1 mg STK-MED ONCE .ROUTE ; Start 09/14/19 at 23:19; Stop 09/14/19 at 23:20; Status DC Pantoprazole Sodium (PROTONIX VIAL for IV PUSH) 40 mg BID IVP Last administered on 09/24/19at 08:10; Start 09/15/19 at 09:00 Epinephrine HCl (EPINEPHrine SYRINGE) 1 mg STK-MED ONCE IV Last administered on 09/14/19at 23:00; Start 09/14/19 at 23:00; Stop 09/14/19 at 23:29; Status DC Fentanyl Citrate 30 ml @ 0 mls/hr CONT PRN IV SEE PROTOCOL Last administered on 09/16/19at 20:58; Start 09/14/19 at 23:45; Stop 09/17/19 at 16:28; Status DC Midazolam HCl 50 mg/Sodium Chloride 50 ml @ 0 mls/hr CONT PRN IV SEE PROTOCOL Last administered on 09/15/19at 22:10; Start 09/14/19 at 23:45; Stop 09/17/19 at 16:28; Status DC Sodium Bicarbonate (Sodium Bicarb Adult 8.4% Syr) 50 meq 1X ONCE IV Last administered on 09/15/19at 01:25; Start 09/15/19 at 01:00; Stop 09/15/19 at 01:01; Status DC Sodium Chloride 1,000 ml @ 50 mls/hr Q20H IV Last administered on 09/23/19at 15:35; Start 09/16/19 at 02:00 Dexmedetomidine HCl 400 mcg/ Sodium Chloride 100 ml @ 0 mls/hr CONT PRN IV AGITATION Last administered on 09/23/19at 17:49; Start 09/16/19 at 08:30 Sodium Chloride 500 ml @ 500 mls/hr 1X PRN PRN IV HYPOTENTION; Start 09/16/19 at 08:30 Atropine Sulfate (ATROPINE 0.5mg SYRINGE) 0.5 mg PRN Q5MIN PRN IV SEE COMMENTS; Start 09/16/19 at 08:30 Amino Acids/ Glycerin/ Electrolytes 1,000 ml @ 80 mls/hr [id number] IV ; Start 09/16/19 at 10:00; Status UNV Ceftriaxone Sodium (Rocephin) 1 gm Q24H IVP Last administered on 09/20/19at 11:24; Start 09/16/19 at 11:00; Stop 09/21/19 at 10:45; Status DC Amino Acids/ Electrolytes/ Dextrose 1,000 ml @ 80 mls/hr [id number] IV Last administered on 09/23/19at 04:45; Start 09/16/19 at 10:15; Stop 09/23/19 at 09:35; Status DC Magnesium Sulfate/ Dextrose 100 ml @ 100 mls/hr 1X ONCE IV Last administered on 09/16/19at 12:10; Start 09/16/19 at 11:45; Stop 09/16/19 at 12:44; Status DC Potassium Chloride/Water 100 ml @ 100 mls/hr Q1H IV ; Start 09/16/19 at 14:15; Stop 09/16/19 at 14:16; Status DC Potassium Chloride/Water 100 ml @ 100 mls/hr Q1H IV ; Start 09/16/19 at 14:15; Stop 09/16/19 at 14:17; Status DC Magnesium Sulfate 100 ml @ 50 mls/hr DAILY IV Last administered on 09/19/19at 09:10; Start 09/17/19 at 09:00; Stop 09/20/19 at 08:59; Status DC Sodium Phosphate 15 mmol/Sodium Chloride 255 ml @ 62.5 mls/hr PRN 1X PRN IV SEE COMMENTS; Start 09/16/19 at 14:15 Sodium Phosphate 15 mmol/Sodium Chloride 255 ml @ 62.5 mls/hr PRN 1X PRN IV SEE COMMENTS; Start 09/16/19 at 14:15 Potassium Chloride/Water 100 ml @ 100 mls/hr PRN Q1HR PRN IV SEE COMMENTS; Start 09/16/19 at 14:30 Potassium Chloride/Water 100 ml @ 100 mls/hr PRN Q1HR PRN IV SEE COMMENTS; Start 09/16/19 at 14:30 Levetiracetam 500 mg/Dextrose 105 ml @ 420 mls/hr Q12HR IV Last administered on 09/19/19 10:19; Start 09/16/19 at 21:00; Stop 09/19/19 at 13:06; Status DC Hydralazine HCl (Apresoline Inj) 10 mg PRN Q4HRS PRN IVP ELEVATED BP, SEE COMMENTS Last administered on 09/19/19at 09:09; Start 09/16/19 at 18:00; Stop 09/19/19 at 09:49; Status DC Magnesium Sulfate/ Dextrose 100 ml @ 100 mls/hr 1X ONCE IV ; Start 09/17/19 at 12:45; Stop 09/17/19 at 13:03; Status DC Albuterol Sulfate (Ventolin Neb Soln) 2.5 mg PRN Q6HRS PRN NEB SHORTNESS OF BREATH Last administered on 09/20/19at 17:27; Start 09/17/19 at 15:45 Budesonide (Pulmicort) 0.5 mg RTBID NEB Last administered on 09/23/19at 20:38; Start 09/17/19 at 20:00 Albuterol Sulfate (Ventolin Neb Soln) 2.5 mg Q6HRS NEB Last administered on 09/23/19at 20:38; Start 09/17/19 at 18:00 Fentanyl Citrate (Fentanyl 2ml Vial) 25 mcg PRN Q3HRS PRN IVP PAIN Last administered on 09/20/19at 08:44; Start 09/17/19 at 17:00 Hydralazine HCl (Apresoline Inj) 10 mg 1X ONCE IVP Last administered on 09/18/19at 12:18; Start 09/18/19 at 12:15; Stop 09/18/19 at 12:16; Status DC Hydralazine HCl (Apresoline Inj) 20 mg PRN Q4HRS PRN IVP ELEVATED BP, SEE COMMENTS Last administered on 09/23/19at 08:56; Start 09/18/19 at 12:15 Potassium Chloride/Water 100 ml @ 100 mls/hr Q1H IV Last administered on 09/19/19 13:26; Start 09/19/19 at 11:00; Stop 09/19/19 at 12:59; Status DC Haloperidol Lactate (Haldol Inj) 2 mg PRN Q6HRS PRN IVP AGITATION Last administered on 09/20/19at 05:25; Start 09/19/19 at 15:00 Fentanyl Citrate 30 ml @ 0 mls/hr CONT PRN IV SEE PROTOCOL Last administered on 09/24/19at 06:37; Start 09/20/19 at 08:45 Midazolam HCl 50 mg/Sodium Chloride 50 ml @ 0 mls/hr CONT PRN IV SEE PROTOCOL Last administered on 09/24/19at 06:03; Start 09/20/19 at 08:45 Thiamine HCl 100 mg/Dextrose 51 ml @ 102 mls/hr DAILY IV Last administered on 09/24/19at 08:11; Start 09/20/19 at 16:00 Piperacillin Sod/ Tazobactam Sod (Zosyn Per Pharmacy) 1 each PRN DAILY PRN MC SEE COMMENTS; Start 09/21/19 at 10:45 Piperacillin Sod/ Tazobactam Sod 3.375 gm/Sodium Chloride 50 ml @ 100 mls/hr Q6HRS IV Last administered on 09/24/19at 06:02; Start 09/21/19 at 12:00 Alteplase, Recombinant (Cathflo For Central Catheter Clearance) 1 mg 1X ONCE INT CAT Last administered on 09/22/19at 02:16; Start 09/22/19 at 02:30; Stop 09/22/19 at 02:31; Status DC Alteplase, Recombinant (Cathflo For Central Catheter Clearance) 1 mg 1X ONCE INT CAT Last administered on 09/22/19at 03:43; Start 09/22/19 at 03:30; Stop 09/22/19 at 03:32; Status DC Polyethylene Glycol (miraLAX PACKET) 17 gm PRN DAILY PRN FT CONSTIPATION; Start 09/22/19 at 08:45 Active Scripts Active Protonix (Pantoprazole Sodium) 40 Mg Tablet.dr 40 Mg PO DAILYAC PRN 30 Days Reported Amlodipine Besylate 5 Mg Tablet 5 Mg PO DAILY Proair Hfa Inhaler (Albuterol Sulfate) 8.5 Gm Hfa.aer.ad 1 Puff INH PRN Q4HRS PRN Symbicort 160-4.5 Mcg Inhaler (Budesonide/Formoterol Fumarate) 10.2 Gm Hfa.aer.ad 2 Puff IH BID Theophylline (Theophylline Anhydrous) 400 Mg Tablet.er 300 Mg PO BID Vitals/I & O Vital Sign - Last 24 Hours 09/23/19 09/23/19 09/23/19 09/23/19 08:56 09:00 09:22 10:00 Pulse 64 68 66 Resp 16 16 B/P (MAP) 166/85 118/54 (75) 118/56 (76) Pulse Ox 98 97 98 O2 Delivery Ventilator Ventilator Ventilator 09/23/19 09/23/19 09/23/19 09/23/19 11:00 11:12 11:52 12:00 Temp 98.6 98.6 Pulse 60 61 Resp 16 16 B/P (MAP) 106/45 (65) 95/42 (59) Pulse Ox 97 97 97 O2 Delivery Ventilator Ventilator Mechanical Ventilator Ventilator 09/23/19 09/23/19 09/23/19 09/23/19 12:21 13:00 14:00 15:00 Pulse 73 59 53 Resp 16 16 16 B/P (MAP) 105/56 (72) 110/57 (74) 116/59 (78) Pulse Ox 99 99 97 98 O2 Delivery Ventilator Ventilator Ventilator Ventilator 09/23/19 09/23/19 09/23/19 09/23/19 15:40 15:56 16:00 17:00 Temp 98.6 98.6 Pulse 59 56 Resp 16 16 B/P (MAP) 106/47 (66) 106/52 (70) Pulse Ox 98 98 98 O2 Delivery Ventilator Mechanical Ventilator Ventilator Ventilator 09/23/19 09/23/19 09/23/19 09/23/19 17:47 18:00 19:00 19:20 Pulse 56 54 Resp 16 16 B/P (MAP) 121/61 (81) 119/62 (81) Pulse Ox 99 99 99 O2 Delivery Ventilator Ventilator Ventilator Ventilator 09/23/19 09/23/19 09/23/19 09/23/19 20:00 20:00 20:40 20:41 Temp 97.6 97.6 Pulse 52 Resp 16 B/P (MAP) 116/61 (79) Pulse Ox 99 99 99 O2 Delivery Ventilator Mechanical Ventilator Ventilator Ventilator 09/23/19 09/23/19 09/23/19 09/23/19 21:00 21:16 22:00 23:00 Pulse 50 60 58 Resp 16 16 16 B/P (MAP) 129/67 (87) 122/63 (82) 124/67 (86) Pulse Ox 100 100 100 O2 Delivery Ventilator Ventilator Ventilator Ventilator 09/23/19 09/24/19 09/24/19 09/24/19 23:44 00:00 00:00 01:00 Temp 98.2 98.2 Pulse 55 54 Resp 16 16 B/P (MAP) 127/62 (83) 140/69 (92) Pulse Ox 99 99 100 O2 Delivery Ventilator Ventilator Mechanical Ventilator Ventilator 09/24/19 09/24/19 09/24/19 09/24/19 01:03 01:34 01:35 02:00 Pulse 55 Resp 16 B/P (MAP) 116/50 (72) Pulse Ox 99 98 O2 Delivery Ventilator Ventilator Ventilator Ventilator 09/24/19 09/24/19 09/24/19 09/24/19 03:00 03:43 03:50 04:00 Temp 97.7 97.7 Pulse 53 47 Resp 16 16 B/P (MAP) 128/61 (83) 143/72 (95) Pulse Ox 99 99 99 O2 Delivery Ventilator Ventilator Mechanical Ventilator Ventilator 09/24/19 09/24/19 09/24/19 09/24/19 05:00 05:39 06:00 06:37 Pulse 48 48 Resp 16 16 B/P (MAP) 144/80 (101) 154/88 (110) Pulse Ox 99 99 99 O2 Delivery Ventilator Ventilator Ventilator Ventilator Intake and Output 09/23/19 09/23/19 09/24/19 14:59 22:59 06:59 Intake Total 401 ml 2848 ml 1992 ml Output Total 1625 ml 1300 ml 1550 ml Balance -1224 ml 1548 ml 442 ml JUANCARLOS CULP MD Sep 24, 2019 08:43
[2019-09-24] MEDS: BUDESONIDE 0.5 MG/2 ML NEBU. NEB SCH ×2 (09:19→19:57)
[2019-09-24] MEDS: ALBUTEROL SULFATE 2.5 MG/3 ML NEBU. NEB SCH ×3 (09:19→19:57)
[2019-09-24 09:39] LABS: BASE EXCESS ABG 5 mmol/L (-3-3); HCO3 ABG 31 mmol/L (21-28); PCO2 ABG 52 mmHg (35-46); PO2 ABG 113 mmHg (75-108); SAT O2 ABG 98 % (92-99)
[2019-09-24 09:41] LABS: FIO2 ABG 40
--- NOTE | 2019-09-24 10:03 | PDOC ---
Objective: Objective: D/w nurse - tolerating tube feeds, doesn't think plans to extubate yet. Vital Signs: Vital Signs Date Time Temp Pulse Resp B/P (MAP) Pulse Ox O2 Delivery O2 Flow Rate FiO2 09/24/19 09:20 100 Ventilator 09/24/19 06:00 48 16 154/88 (110) 09/24/19 04:00 97.7 97.7 Labs: Laboratory Tests Test 09/24/19 09:30 O2 Saturation 98 % Arterial Blood pH 7.39 Arterial Blood pCO2 at Patient Temp 52 mmHg Arterial Blood pO2 at Patient Temp 113 mmHg Arterial Blood HCO3 31 mmol/L Arterial Blood Base Excess 5 mmol/L FiO2 40 PE: GEN: intubated, mittens LUNGS: clear, vent HEART: RRR ABD: S/ND/NT NEURO/PSYCH: awake A/P: Alcohol abuse, resp failure, encephalopathy Anemia - stable Erosive esophagitis, DU - s/p endotherapy 09/15/19 - on IV PPI -- Continue same per GI. Hemodynamically unstable?: No Is patient in severe pain?: No Is NPO status required?: Yes (OG feeds ok) MESSI GORE Sep 24, 2019 10:03
[2019-09-24] MEDS: DEXMEDETOMIDINE 400 MCG in IV NORMAL SALINE 100ML 96 ML IV PRN ×3 (11:02→21:15)
--- NOTE | 2019-09-24 11:18 | PDOC ---
[facility] [facility] PROGRESS NOTE Chief Complaint Chief Complaint 0. Respiratory failure on the vent 1. acute UGI BLEED 2. severe diffuse hepatic steatosis. 3. Erosive esophagitis, epinephrine injection duodenal ulcer in the first and second portions of duodenum with a visible vessel, status post epinephrine injection. 4. polysubstance abuse, alcohol cocaine and marijuana 5. Electrolyte imbalance 6. Malignant hypertension History of Present Illness History of Present Illness [id number] Patient seen and examined in the ICU He remains on the vent assist control 16/500/40% Eyes are open but he doesn't seem to recognize me Chart reviewed Discussed with RN Still critically ill [id number] Patient seen and examined in the ICU He remains mechanically ventilated with an OG feeds running at 55 mL/h Vent settings as follows assist-control/10/500/40% with 5 of PEEP Chart reviewed Discussed with RN He is critically ill [id number] Patient seen and examined in the ICU He remains critically ill On mechanical ventilation with assist control/16/500/40% Sedated with propofol and fentanyl Has PPN and OG feeds running Chart reviewed Discussed with RN [id number] Patient seen and examined in the ICU once again He remains intubated and on assist-control/16/500/40% with 5 of PEEP Sedated with Precedex Getting TPN and albumin Also on Versed levo fed He is critically ill Discussed with RN Chart reviewed [id number] Patient seen and examined in the ICU He is intubated Assist-control/16/500/60% FiO2 Chart reviewed Discussed with RN Vitals/I&O Vitals/I&O: Vital Signs Date Time Temp Pulse Resp B/P (MAP) Pulse Ox O2 Delivery O2 Flow Rate FiO2 09/24/19 09:20 100 Ventilator 09/24/19 06:00 48 16 154/88 (110) 09/24/19 04:00 97.7 97.7 I & O 09/23/19 09/23/19 09/24/19 15:00 23:00 07:00 Intake Total 401 ml 2848 ml 1992 ml Output Total 1550 ml 1325 ml 1425 ml Balance -1149 ml 1523 ml 567 ml Physical Exam Physical Exam: SEDATED ON VENT General: No acute distress Heart: Regular rate, Normal S1, Normal S2 Lungs: Other (rhonchi) Abdomen: Normal bowel sounds, Soft, No tenderness Extremities: No cyanosis, No edema Skin: No rashes Labs Labs: Laboratory Tests Test 09/24/19 09:30 O2 Saturation 98 % (92-99) Arterial Blood pH 7.39 (7.35-7.45) Arterial Blood pCO2 at Patient Temp 52 mmHg (35-46) Arterial Blood pO2 at Patient Temp 113 mmHg (75-108) Arterial Blood HCO3 31 mmol/L (21-28) Arterial Blood Base Excess 5 mmol/L (-3-3) FiO2 40 Review of Systems Review of Systems: Unable to obtain Assessment and Plan Assessmemt and Plan Problems Medical Problems: (1) GI bleed Status: Acute 0. Respiratory failure on the vent 1. acute UGI BLEED 2. severe diffuse hepatic steatosis. 3. Erosive esophagitis, epinephrine injection duodenal ulcer in the first and second portions of duodenum with a visible vessel, status post epinephrine injection. 4. polysubstance abuse, alcohol cocaine and marijuana 5. Electrolyte imbalance 6. Malignant hypertension Plan ICU monitoring GI following Trying to wean off Levaquin fed Vent weaning When necessary transfusions alcohol withdrawal protocol SCD'S IV proton pump inhibitors Trend labs When necessary hydralazine He is still critically ill Long-term prognosis extremely guarded especially if he doesn't quit drinking Total time 33 minutes Comment Review of Relevant I have reviewed the following items wali (where applicable) has been applied. Hemodynamically unstable?: No Is patient in severe pain?: No Is NPO status required?: Yes (OG feeds ok) MAY FROST III DO Sep 24, 2019 11:18
[2019-09-24 11:33] LABS: BASE EXCESS ABG 6 mmol/L (-3-3); HCO3 ABG 32 mmol/L (21-28); PCO2 ABG 49 mmHg (35-46); PO2 ABG 103 mmHg (75-108); SAT O2 ABG 98 % (92-99)
[2019-09-24 11:35] LABS: FIO2 ABG 40
[2019-09-24] MEDS: hydrALAZINE 20 MG/ML VIAL. IVP PRN (11:36)
--- NOTE | 2019-09-24 11:45 | PDOC ---
PULMONARY PROGRESS NOTES Subjective Pt. is extubated 09/15, re-intubated early am 09/19 due to DT/ increase work of breathing ET with thick secretions, improved now awake , on CPAP trial Vitals Vital Signs Date Time Temp Pulse Resp B/P (MAP) Pulse Ox O2 Delivery O2 Flow Rate FiO2 09/24/19 11:36 75 200/100 09/24/19 09:20 100 Ventilator 09/24/19 06:00 16 09/24/19 04:00 97.7 97.7 General: Alert Lungs: Other (rhonchi) Cardiovascular: S1, S2 Abdomen: Soft Extremities: No Edema Skin: Warm Labs Laboratory Tests Test 09/22/19 11:50 09/23/19 07:25 09/24/19 09:30 09/24/19 11:20 White Blood Count 6.9 x10^3/uL (4.0-11.0) 8.4 x10^3/uL (4.0-11.0) Red Blood Count 3.31 x10^6/uL (4.30-5.70) 3.42 x10^6/uL (4.30-5.70) Hemoglobin 8.8 g/dL (13.0-17.5) 9.0 g/dL (13.0-17.5) Hematocrit 27.2 % (39.0-53.0) 28.2 % (39.0-53.0) Mean Corpuscular Volume 82 fL (79-100) 82 fL (79-100) Mean Corpuscular Hemoglobin 27 pg (25-35) 26 pg (25-35) Mean Corpuscular Hemoglobin Concent 32 g/dL (31-37) 32 g/dL (31-37) Red Cell Distribution Width 17.6 % (11.5-14.5) 17.2 % (11.5-14.5) Platelet Count 249 x10^3/uL (140-400) 307 x10^3/uL (140-400) Sodium Level 141 mmol/L (136-145) 143 mmol/L (136-145) Potassium Level 4.3 mmol/L (3.5-5.1) 4.4 mmol/L (3.5-5.1) Chloride Level 107 mmol/L (98-107) 107 mmol/L (98-107) Carbon Dioxide Level 30 mmol/L (21-32) 31 mmol/L (21-32) Anion Gap 4 (6-14) 5 (6-14) Blood Urea Nitrogen 18 mg/dL (8-26) 14 mg/dL (8-26) Creatinine 0.8 mg/dL (0.7-1.3) 0.7 mg/dL (0.7-1.3) Estimated GFR (Cockcroft-Gault) 106.0 123.7 Glucose Level 105 mg/dL (70-99) 110 mg/dL (70-99) Calcium Level 8.2 mg/dL (8.5-10.1) 8.4 mg/dL (8.5-10.1) Magnesium Level 1.7 mg/dL (1.8-2.4) Neutrophils (%) (Auto) 63 % (31-73) Lymphocytes (%) (Auto) 14 % (24-48) Monocytes (%) (Auto) 16 % (0-9) Eosinophils (%) (Auto) 5 % (0-3) Basophils (%) (Auto) 3 % (0-3) Neutrophils # (Auto) 5.3 x10^3/uL (1.8-7.7) Lymphocytes # (Auto) 1.2 x10^3/uL (1.0-4.8) Monocytes # (Auto) 1.3 x10^3/uL (0.0-1.1) Eosinophils # (Auto) 0.4 x10^3/uL (0.0-0.7) Basophils # (Auto) 0.2 x10^3/uL (0.0-0.2) O2 Saturation 97 % (92-99) 98 % (92-99) 98 % (92-99) Arterial Blood pH 7.40 (7.35-7.45) 7.39 (7.35-7.45) 7.43 (7.35-7.45) Arterial Blood pCO2 at Patient Temp 47 mmHg (35-46) 52 mmHg (35-46) 49 mmHg (35-46) Arterial Blood pO2 at Patient Temp 96 mmHg (75-108) 113 mmHg (75-108) 103 mmHg (75-108) Arterial Blood HCO3 28 mmol/L (21-28) 31 mmol/L (21-28) 32 mmol/L (21-28) Arterial Blood Base Excess 3 mmol/L (-3-3) 5 mmol/L (-3-3) 6 mmol/L (-3-3) FiO2 40% 40 40 Laboratory Tests Test 09/24/19 09:30 09/24/19 11:20 O2 Saturation 98 % (92-99) 98 % (92-99) Arterial Blood pH 7.39 (7.35-7.45) 7.43 (7.35-7.45) Arterial Blood pCO2 at Patient Temp 52 mmHg (35-46) 49 mmHg (35-46) Arterial Blood pO2 at Patient Temp 113 mmHg (75-108) 103 mmHg (75-108) Arterial Blood HCO3 31 mmol/L (21-28) 32 mmol/L (21-28) Arterial Blood Base Excess 5 mmol/L (-3-3) 6 mmol/L (-3-3) FiO2 40 40 Medications Active Scripts Medications Dose Route/Sig Max Daily Dose Days Date Category Amlodipine Besylate 5 Mg Tablet 5 Mg PO DAILY 07/08/19 Reported Protonix (Pantoprazole Sodium) 40 Mg Tablet.dr 40 Mg PO DAILYAC PRN 30 06/23/19 Rx Proair Hfa Inhaler (Albuterol Sulfate) 8.5 Gm Hfa.aer.ad 1 Puff INH PRN Q4HRS PRN 03/02/18 Reported Symbicort 160-4.5 Mcg Inhaler (Budesonide/Formoterol Fumarate) 10.2 Gm Hfa.aer.ad 2 Puff IH BID 08/13/16 Reported Theophylline (Theophylline Anhydrous) 400 Mg Tablet.er 300 Mg PO BID 08/20/13 Reported Impression . 1. Acute respiratory failure secondary to acute gastrointestinal bleed along with hepatic encephalopathy. extubated 09/15, re-intubated 09/19 2. History of alcoholism, presented with acute gastrointestinal bleed. 3. Status post EGD, was found to have a duodenal ulcer in the first and second portion of the duodenum with a visible vessel. Status post epinephrine injection. 4. Acute blood loss anemia. 5. Mild coagulopathy along with thrombocytopenia. 6. Susped ETOH withdrawl seizures 7. DT Plan . 1. awake, folowing commands. on CPAP. will proceed with extubation 2. VM post intubation 4. Monitor chest x-ray prn 5. Monitor hemoglobin. 6. Follow GI recommendations. 7. PPI. 8. SCDs. 9. abx d/w KARLA BIRCH MD Sep 24, 2019 11:45
[2019-09-24] MEDS: IV NORMAL SALINE 1000ML BAG 1,000 ML IV SCH (14:50)
[2019-09-24] MEDS: HALOPERIDOL LACTATE 5 MG/ML VIAL. IVP PRN (16:36)
[2019-09-25] VITALS (23 sets, daily range): BP systolic 132–220; BP diastolic 78–130
[2019-09-25] MEDS: ALBUTEROL SULFATE 2.5 MG/3 ML NEBU. NEB SCH ×5 (00:35→20:13)
[2019-09-25] MEDS: DEXMEDETOMIDINE 400 MCG in IV NORMAL SALINE 100ML 96 ML IV PRN ×3 (00:35→22:16)
[2019-09-25] MEDS: PIPERACILLIN/TAZOBACTAM 3.375 GM in IV NORMAL SALINE 50ML 50 ML IV SCH ×5 (00:37→23:34)
[2019-09-25] MEDS: BUDESONIDE 0.5 MG/2 ML NEBU. NEB SCH ×2 (07:43→20:12)
[2019-09-25] MEDS: THIAMINE INJ 100 MG in IV DEXTROSE 5% 50 ML IV SCH (09:00)
[2019-09-25] MEDS: PANTOPRAZOLE IV PUSH 40 MG VIAL. IVP SCH ×2 (09:00→20:47)
--- NOTE | 2019-09-25 11:50 | PDOC ---
PULMONARY PROGRESS NOTES Subjective Pt. is extubated 09/15, re-intubated early am 09/19 due to DT/ increase work of breathing ET with thick secretions, improved now awake , on CPAP trial Vitals Vital Signs Date Time Temp Pulse Resp B/P (MAP) Pulse Ox O2 Delivery O2 Flow Rate FiO2 09/25/19 08:00 Room Air 09/25/19 00:00 98.6 76 22 186/102 (130) 96 98.6 09/24/19 12:55 12.0 Comments alert confused at times General: Alert HEENT: Other (nc at perrl ) Lungs: Other (rhonchi) Cardiovascular: S1, S2 Abdomen: Soft, Non-tender Neuro Exam: Alert Extremities: No Edema Skin: Warm Labs Laboratory Tests Test 09/24/19 09:30 09/24/19 11:20 O2 Saturation 98 % (92-99) 98 % (92-99) Arterial Blood pH 7.39 (7.35-7.45) 7.43 (7.35-7.45) Arterial Blood pCO2 at Patient Temp 52 mmHg (35-46) 49 mmHg (35-46) Arterial Blood pO2 at Patient Temp 113 mmHg (75-108) 103 mmHg (75-108) Arterial Blood HCO3 31 mmol/L (21-28) 32 mmol/L (21-28) Arterial Blood Base Excess 5 mmol/L (-3-3) 6 mmol/L (-3-3) FiO2 40 40 Medications Active Scripts Medications Dose Route/Sig Max Daily Dose Days Date Category Amlodipine Besylate 5 Mg Tablet 5 Mg PO DAILY 07/08/19 Reported Protonix (Pantoprazole Sodium) 40 Mg Tablet.dr 40 Mg PO DAILYAC PRN 30 06/23/19 Rx Proair Hfa Inhaler (Albuterol Sulfate) 8.5 Gm Hfa.aer.ad 1 Puff INH PRN Q4HRS PRN 03/02/18 Reported Symbicort 160-4.5 Mcg Inhaler (Budesonide/Formoterol Fumarate) 10.2 Gm Hfa.aer.ad 2 Puff IH BID 08/13/16 Reported Theophylline (Theophylline Anhydrous) 400 Mg Tablet.er 300 Mg PO BID 08/20/13 Reported Impression . 1. Acute respiratory failure secondary to acute gastrointestinal bleed along with hepatic encephalopathy. extubated 09/15, re-intubated 09/19, ext 09/23, on RA now 2. History of alcoholism, presented with acute gastrointestinal bleed. 3. Status post EGD, was found to have a duodenal ulcer in the first and second portion of the duodenum with a visible vessel. Status post epinephrine injection. 4. Acute blood loss anemia. 5. Mild coagulopathy along with thrombocytopenia. 6. Susped ETOH withdrawl seizures 7. DT Plan . 1. 02 titration. 2. taper off precedex 4. speech eval 5. Monitor hemoglobin. 6. Follow GI recommendations. 7. PPI. 8. SCDs. 9. abx will so but available for any help d/w WENDI ROSE MD Sep 25, 2019 11:50
--- NOTE | 2019-09-25 17:57 | NUR ---
see downtime paperwork for medication documentation
--- NOTE | 2019-09-25 19:56 | PN ---
DATE: 09/25/2019 CHIEF COMPLAINT: Severe alcohol withdrawal and GI bleed. HISTORY OF PRESENT ILLNESS: The patient is a pleasant 44-year-old male who has been here for the past 11 days. He is well known to our service. He has severe alcoholism and drinks more than a liter of vodka each day. He drinks by himself. Once again, he has been in the hospital for some time with severe GI bleed and alcohol withdrawal. He is currently being examined in the ICU room #105, where he is on the vent. OBJECTIVE: VITAL SIGNS: Stable. GENERAL: He is sedated on the vent. HEART: Distant S1, S2. LUNGS: Diminished. ABDOMEN: Soft. Decreased bowel sounds. EXTREMITIES: Trace edema. ASSESSMENT: Severe gastrointestinal bleed and alcohol withdrawal and respiratory failure. PLAN: ICU monitoring, vent weaning. Home meds, DVT prophylaxis. Full code. OG feeds. Prognosis guarded. Trend labs. MAY FROST DO DR: AMANDA/gretel JOB#: [id number] / [id number]
[2019-09-26] VITALS (24 sets, daily range): BP systolic 118–207; BP diastolic 60–121
[2019-09-26] MEDS: ALBUTEROL SULFATE 2.5 MG/3 ML NEBU. NEB SCH ×4 (00:15→20:06)
[2019-09-26] MEDS: hydrALAZINE 20 MG/ML VIAL. IVP PRN ×2 (04:22→13:33)
[2019-09-26] MEDS: ENALAPRILAT 1.25 MG/ML VIAL. IVP PRN ×2 (05:47→11:31)
[2019-09-26] MEDS: PIPERACILLIN/TAZOBACTAM 3.375 GM in IV NORMAL SALINE 50ML 50 ML IV SCH ×3 (05:47→18:00)
[2019-09-26] MEDS: BUDESONIDE 0.5 MG/2 ML NEBU. NEB SCH ×2 (07:51→20:06)
[2019-09-26] MEDS: HALOPERIDOL LACTATE 5 MG/ML VIAL. IVP PRN (08:12)
[2019-09-26] MEDS: IV NORMAL SALINE 1000ML BAG 1,000 ML IV SCH ×2 (09:33→09:35)
[2019-09-26] MEDS: PANTOPRAZOLE IV PUSH 40 MG VIAL. IVP SCH ×2 (09:33→21:01)
[2019-09-26] MEDS: THIAMINE INJ 100 MG in IV DEXTROSE 5% 50 ML IV SCH (09:33)
--- NOTE | 2019-09-26 10:02 | PDOC ---
PULMONARY PROGRESS NOTES Subjective Pt. is extubated 09/15, re-intubated early am 09/19 due to DT/ increase work of breathing ET with thick secretions, improved now awake , on CPAP trial Vitals Vital Signs Date Time Temp Pulse Resp B/P (MAP) Pulse Ox O2 Delivery O2 Flow Rate FiO2 09/26/19 09:00 75 20 185/90 (121) 96 Room Air 09/26/19 08:00 98.9 98.9 Comments alert confused at times General: Alert HEENT: Other Lungs: Other (rhonchi) Cardiovascular: S1, S2 Abdomen: Soft, Non-tender Neuro Exam: Alert Extremities: No Edema Skin: Warm Labs Laboratory Tests Test 09/24/19 11:20 O2 Saturation 98 % (92-99) Arterial Blood pH 7.43 (7.35-7.45) Arterial Blood pCO2 at Patient Temp 49 mmHg (35-46) Arterial Blood pO2 at Patient Temp 103 mmHg (75-108) Arterial Blood HCO3 32 mmol/L (21-28) Arterial Blood Base Excess 6 mmol/L (-3-3) FiO2 40 Medications Active Scripts Medications Dose Route/Sig Max Daily Dose Days Date Category Amlodipine Besylate 5 Mg Tablet 5 Mg PO DAILY 07/08/19 Reported Protonix (Pantoprazole Sodium) 40 Mg Tablet.dr 40 Mg PO DAILYAC PRN 30 06/23/19 Rx Proair Hfa Inhaler (Albuterol Sulfate) 8.5 Gm Hfa.aer.ad 1 Puff INH PRN Q4HRS PRN 03/02/18 Reported Symbicort 160-4.5 Mcg Inhaler (Budesonide/Formoterol Fumarate) 10.2 Gm Hfa.aer.ad 2 Puff IH BID 08/13/16 Reported Theophylline (Theophylline Anhydrous) 400 Mg Tablet.er 300 Mg PO BID 08/20/13 Reported Impression . 1. Acute respiratory failure secondary to acute gastrointestinal bleed along with hepatic encephalopathy. extubated 09/15, re-intubated 09/19, ext 09/23, on RA now 2. History of alcoholism, presented with acute gastrointestinal bleed. 3. Status post EGD, was found to have a duodenal ulcer in the first and second portion of the duodenum with a visible vessel. Status post epinephrine injection. 4. Acute blood loss anemia. 5. Mild coagulopathy along with thrombocytopenia. 6. Susped ETOH withdrawl seizures 7. DT Plan . 1. 02 titration. 2. taper off precedex 4. speech eval 5. Monitor hemoglobin. 6. Follow GI recommendations. 7. PPI. 8. SCDs. 9. abx will so but available for any help d/w WENDI ROSE MD Sep 26, 2019 10:02
[2019-09-26] MEDS ORDERED: diphenhydrAMINE 50 MG/ML VIAL IVP PRN (13:15)
[2019-09-26] MEDS ORDERED: LORazepam 1 MG TABLET PO PRN (13:15)
--- NOTE | 2019-09-26 13:56 | PDOC ---
[facility] PROGRESS NOTE Chief Complaint Chief Complaint 0. Respiratory failure on the vent 1. acute UGI BLEED 2. severe diffuse hepatic steatosis. 3. Erosive esophagitis, epinephrine injection duodenal ulcer in the first and second portions of duodenum with a visible vessel, status post epinephrine injection. 4. polysubstance abuse, alcohol cocaine and marijuana 5. Electrolyte imbalance 6. Malignant hypertension History of Present Illness History of Present Illness [id number] Patient seen and examined He is now extubated Extremely weak and tremulous Chart reviewed Discussed with RN Seems that he needs high-dose benzodiazepines [id number] Patient seen and examined in the ICU He remains on the vent assist control 16/500/40% Eyes are open but he doesn't seem to recognize me Chart reviewed Discussed with RN Still critically ill [id number] Patient seen and examined in the ICU He remains mechanically ventilated with an OG feeds running at 55 mL/h Vent settings as follows assist-control/10/500/40% with 5 of PEEP Chart reviewed Discussed with RN He is critically ill [id number] Patient seen and examined in the ICU He remains critically ill On mechanical ventilation with assist control/16/500/40% Sedated with propofol and fentanyl Has PPN and OG feeds running Chart reviewed Discussed with RN [id number] Patient seen and examined in the ICU once again He remains intubated and on assist-control/16/500/40% with 5 of PEEP Sedated with Precedex Getting TPN and albumin Also on Versed levo fed He is critically ill Discussed with RN Chart reviewed [id number] Patient seen and examined in the ICU He is intubated Assist-control/16/500/60% FiO2 Chart reviewed Discussed with RN Vitals/I&O Vitals/I&O: Vital Signs Date Time Temp Pulse Resp B/P (MAP) Pulse Ox O2 Delivery O2 Flow Rate FiO2 09/26/19 13:33 102 193/121 09/26/19 13:01 Room Air 09/26/19 13:00 22 96 09/26/19 12:00 98.7 98.7 I & O 09/25/19 09/25/19 09/26/19 15:00 23:00 07:00 Intake Total 123 ml Output Total 2455 ml 880 ml Balance -2455 ml -757 ml Physical Exam General: Alert, Other (intermittently confused shaking) Heart: Regular rate, Normal S1, Normal S2 Lungs: Other (rhonchi) Abdomen: Normal bowel sounds, Soft, No tenderness Extremities: No cyanosis, No edema Skin: No rashes Review of Systems Review of Systems: Complains of weakness complains of confusion Assessment and Plan Assessmemt and Plan Problems Medical Problems: (1) GI bleed Status: Acute 0. Respiratory failure on the vent 1. acute UGI BLEED 2. severe diffuse hepatic steatosis. 3. Erosive esophagitis, epinephrine injection duodenal ulcer in the first and second portions of duodenum with a visible vessel, status post epinephrine injection. 4. polysubstance abuse, alcohol cocaine and marijuana 5. Electrolyte imbalance 6. Malignant hypertension Plan ICU monitoring GI following Increase benzodiazepines When necessary transfusions alcohol withdrawal protocol SCD'S IV proton pump inhibitors Trend labs When necessary hydralazine He is still critically ill Long-term prognosis extremely guarded especially if he doesn't quit drinking Total time 31 minutes Comment Review of Relevant I have reviewed the following items wali (where applicable) has been applied. Medications: Current Medications Medications (Trade) Dose Ordered Sig/Wil Route PRN Reason Start Time Stop Time Status Last Admin Dose Admin Enalaprilat (Vasotec Inj) 1.25 mg PRN Q6HRS PRN IVP HYPERTENSION 09/26/19 05:45 09/26/19 11:31 Lorazepam (Ativan Inj) 6 mg PRN Q1HR PRN IV For CIWA 15 or greater 09/26/19 13:15 09/26/19 13:31 Diphenhydramine HCl (Benadryl) 25 mg PRN Q15MIN PRN IVP EPS symptoms 2'Haldol admin 09/26/19 13:15 09/26/19 13:32 Hemodynamically unstable?: No Is patient in severe pain?: No Is NPO status required?: Yes (OG feeds ok) MAY FROST III DO Sep 26, 2019 13:55
[2019-09-26] MEDS: DEXMEDETOMIDINE 400 MCG in IV NORMAL SALINE 100ML 96 ML IV PRN (21:22)
[2019-09-27] VITALS (24 sets, daily range): BP systolic 118–183; BP diastolic 63–100
[2019-09-27] MEDS: PIPERACILLIN/TAZOBACTAM 3.375 GM in IV NORMAL SALINE 50ML 50 ML IV SCH ×5 (00:27→23:37)
[2019-09-27] MEDS: DEXMEDETOMIDINE 400 MCG in IV NORMAL SALINE 100ML 96 ML IV PRN (07:50)
[2019-09-27] MEDS: ALBUTEROL SULFATE 2.5 MG/3 ML NEBU. NEB SCH ×4 (07:51→20:03)
[2019-09-27] MEDS: BUDESONIDE 0.5 MG/2 ML NEBU. NEB SCH ×2 (07:51→20:03)
[2019-09-27] MEDS: THIAMINE INJ 100 MG in IV DEXTROSE 5% 50 ML IV SCH (08:13)
[2019-09-27] MEDS: IV NORMAL SALINE 1000ML BAG 1,000 ML IV SCH ×2 (08:15→23:39)
[2019-09-27] MEDS: PANTOPRAZOLE IV PUSH 40 MG VIAL. IVP SCH (08:15)
[2019-09-27] MEDS: hydrALAZINE 20 MG/ML VIAL. IVP PRN ×2 (08:24→12:55)
--- NOTE | 2019-09-27 08:32 | PDOC ---
PULMONARY PROGRESS NOTES Subjective Pt. is extubated 09/15, re-intubated early am 09/19 due to DT/ increase work of breathing ET with thick secretions, improved now awake , on CPAP trial Vitals Vital Signs Date Time Temp Pulse Resp B/P (MAP) Pulse Ox O2 Delivery O2 Flow Rate FiO2 09/27/19 08:30 69 20 183/89 (120) 94 Room Air 09/27/19 07:29 97.9 97.9 Comments alert confused at times General: Alert HEENT: Other Lungs: Other (rhonchi) Cardiovascular: S1, S2 Abdomen: Soft, Non-tender Neuro Exam: Alert Extremities: No Edema Skin: Warm Medications Active Scripts Medications Dose Route/Sig Max Daily Dose Days Date Category Amlodipine Besylate 5 Mg Tablet 5 Mg PO DAILY 07/08/19 Reported Protonix (Pantoprazole Sodium) 40 Mg Tablet.dr 40 Mg PO DAILYAC PRN 30 06/23/19 Rx Proair Hfa Inhaler (Albuterol Sulfate) 8.5 Gm Hfa.aer.ad 1 Puff INH PRN Q4HRS PRN 03/02/18 Reported Symbicort 160-4.5 Mcg Inhaler (Budesonide/Formoterol Fumarate) 10.2 Gm Hfa.aer.ad 2 Puff IH BID 08/13/16 Reported Theophylline (Theophylline Anhydrous) 400 Mg Tablet.er 300 Mg PO BID 08/20/13 Reported Impression . 1. Acute respiratory failure secondary to acute gastrointestinal bleed along with hepatic encephalopathy. extubated 09/15, re-intubated 09/19, ext 09/23, on RA now 2. History of alcoholism, presented with acute gastrointestinal bleed. 3. Status post EGD, was found to have a duodenal ulcer in the first and second portion of the duodenum with a visible vessel. Status post epinephrine injection. 4. Acute blood loss anemia. 5. Mild coagulopathy along with thrombocytopenia. 6. Susped ETOH withdrawl seizures 7. DT Plan . 1. 02 titration. 2. taper off precedex 4. speech eval 5. Monitor hemoglobin. 6. Follow GI recommendations. 7. PPI. 8. SCDs. 9. abx will so but available for any help d/w CHASITY DALY MD Sep 27, 2019 08:32
--- NOTE | 2019-09-27 09:45 | PDOC ---
PROGRESS NOTES Assessment Problems Medical Problems: (1) GI bleed Status: Acute Metabolic encephalopathy. Still on Precedex Toxic encephalopathy. Respiratory failure, extubated. Alcohol intoxication, alcohol level 111. Korsakoff Syndrome. Seizure or seizure like episodes, alcohol/withdrawal related. Pancreatitis, recurrent. Right C7 radiculopathy per history. CAD. HTN. KIMBERLY. Tremors. Left eye injury s/p surgery in 2014 Plan Continue Vit B1 100 mg IV daily. Treat medical diseases. Alcohol abstinence. Subjective No complaints Objective Vital Signs Date Time Temp Pulse Resp B/P (MAP) Pulse Ox O2 Delivery O2 Flow Rate FiO2 09/27/19 09:08 80 20 160/80 (106) 96 Room Air 09/27/19 07:29 97.9 97.9 Intake and Output 09/27/19 07:00 Intake Total 562 ml Output Total 2385 ml Balance -1823 ml Intake Oral 240 ml IV Total 322 ml Output Urine Total 2385 ml PHYSICAL EXAM Alert, knows location, not date Right people reacts, left pupil large, unreactive EOMI. CN: no focal findings. Muscle tone: normal. Muscle strength: slight movement to pain DTR: 1+ Plantar reflex: silent Gait: not examined in bed. Sensory exam: no abnormal findings. No cerebellar signs elicited. Mild tremulousness Review of Relevant I have reviewed the following items wali (where applicable) has been applied. Medications Current Medications Ondansetron HCl (Zofran) 4 mg STK-MED ONCE .ROUTE ; Start 09/14/19 at 17:54; Stop 09/14/19 at 17:54; Status DC Lorazepam (Ativan Inj) 2 mg STK-MED ONCE .ROUTE ; Start 09/14/19 at 17:55; Stop 09/14/19 at 17:55; Status DC Lorazepam (Ativan Inj) 2 mg 1X ONCE IVP Last administered on 09/14/19at 18:05; Start 09/14/19 at 18:00; Stop 09/14/19 at 18:09; Status DC Ondansetron HCl (Zofran) 4 mg 1X ONCE IVP Last administered on 09/14/19at 18:04; Start 09/14/19 at 18:00; Stop 09/14/19 at 18:09; Status DC Pantoprazole Sodium (PROTONIX VIAL for IV PUSH) 40 mg 1X ONCE IVP Last administered on 09/14/19at 18:43; Start 09/14/19 at 18:00; Stop 09/14/19 at 18:09; Status DC Sodium Chloride 1,000 ml @ 1,000 mls/hr 1X ONCE IV Last administered on 09/14/19at 19:10; Start 09/14/19 at 18:00; Stop 09/14/19 at 19:00; Status DC Multivitamins 10 ml/Thiamine HCl 100 mg/Folic Acid 1 mg/Sodium Chloride 1,011.2 ml @ 100 mls/ hr DAILY IV Last administered on 09/18/19at 09:37; Start 09/14/19 at 18:30; Stop 09/18/19 at 19:07; Status DC Lorazepam (Ativan Inj) 2 mg PRN Q1HR PRN IV For CIWA 8-14 Last administered on 09/27/19at 09:32; Start 09/14/19 at 18:30 Lorazepam (Ativan Inj) 4 mg PRN Q1HR PRN IV For CIWA 15 or greater Last administered on 09/27/19at 03:22; Start 09/14/19 at 18:30 Pantoprazole Sodium 80 mg/ Sodium Chloride 100 ml @ 10 mls/hr 1X ONCE IV Last administered on 09/14/19at 18:44; Start 09/14/19 at 18:30; Stop 09/15/19 at 04:29; Status DC Iohexol (Omnipaque 300 Mg/ml) 75 ml 1X ONCE IV ; Start 09/14/19 at 19:00; Stop 09/14/19 at 19:01; Status DC Info (CONTRAST GIVEN -- Rx MONITORING) 1 each PRN DAILY PRN MC SEE COMMENTS; Start 09/14/19 at 19:00; Stop 09/16/19 at 18:59; Status DC Ondansetron HCl (Zofran) 4 mg PRN Q8HRS PRN IV NAUSEA/VOMITING; Start 09/14/19 at 19:30; Stop 09/15/19 at 19:29; Status DC Sodium Chloride 1,000 ml @ 125 mls/hr Q8H IV Last administered on 09/15/19at 15:39; Start 09/14/19 at 19:19; Stop 09/15/19 at 19:18; Status DC Etomidate (Amidate) 20 mg STK-MED ONCE IV ; Start 09/14/19 at 21:22; Stop 09/14/19 at 21:22; Status DC Lidocaine HCl (Lidocaine Pf 2% Vial) 5 ml STK-MED ONCE .ROUTE ; Start 09/14/19 at 21:22; Stop 09/14/19 at 21:22; Status DC Rocuronium [place] (Zemuron) 50 mg STK-MED ONCE .ROUTE ; Start 09/14/19 at 21:23; Stop 09/14/19 at 21:23; Status DC Phenylephrine HCl (PHENYLEPHRINE in 0.9% NACL PF) 1 mg STK-MED ONCE IV ; Start 09/14/19 at 21:24; Stop 09/14/19 at 21:24; Status DC Propofol 100 ml @ 0 mls/hr CONT PRN IV SEE PROTOCOL Last administered on 09/24/19at 09:12; Start 09/14/19 at 22:30 Fentanyl Citrate (Fentanyl 2ml Vial) 25 mcg PRN Q1HR PRN IV SEE COMMENTS; Start 09/14/19 at 22:30; Stop 09/15/19 at 06:26; Status DC Fentanyl Citrate (Fentanyl 2ml Vial) 50 mcg PRN Q1HR PRN IV SEE COMMENTS; Start 09/14/19 at 22:30; Stop 09/15/19 at 06:26; Status DC Epinephrine HCl (EPINEPHrine SYRINGE) 1 mg STK-MED ONCE .ROUTE ; Start 09/14/19 at 23:19; Stop 09/14/19 at 23:20; Status DC Pantoprazole Sodium (PROTONIX VIAL for IV PUSH) 40 mg BID IVP Last administered on 09/27/19at 08:15; Start 09/15/19 at 09:00 Epinephrine HCl (EPINEPHrine SYRINGE) 1 mg STK-MED ONCE IV Last administered on 09/14/19at 23:00; Start 09/14/19 at 23:00; Stop 09/14/19 at 23:29; Status DC Fentanyl Citrate 30 ml @ 0 mls/hr CONT PRN IV SEE PROTOCOL Last administered on 09/16/19at 20:58; Start 09/14/19 at 23:45; Stop 09/17/19 at 16:28; Status DC Midazolam HCl 50 mg/Sodium Chloride 50 ml @ 0 mls/hr CONT PRN IV SEE PROTOCOL Last administered on 09/15/19at 22:10; Start 09/14/19 at 23:45; Stop 09/17/19 at 16:28; Status DC Sodium Bicarbonate (Sodium Bicarb Adult 8.4% Syr) 50 meq 1X ONCE IV Last administered on 09/15/19at 01:25; Start 09/15/19 at 01:00; Stop 09/15/19 at 01:01; Status DC Sodium Chloride 1,000 ml @ 50 mls/hr Q20H IV Last administered on 09/27/19at 08:15; Start 09/16/19 at 02:00 Dexmedetomidine HCl 400 mcg/ Sodium Chloride 100 ml @ 0 mls/hr CONT PRN IV AGITATION Last administered on 09/27/19at 07:50; Start 09/16/19 at 08:30 Sodium Chloride 500 ml @ 500 mls/hr 1X PRN PRN IV HYPOTENTION; Start 09/16/19 at 08:30 Atropine Sulfate (ATROPINE 0.5mg SYRINGE) 0.5 mg PRN Q5MIN PRN IV SEE COMMENTS; Start 09/16/19 at 08:30 Amino Acids/ Glycerin/ Electrolytes 1,000 ml @ 80 mls/hr [id number] IV ; Start 09/16/19 at 10:00; Status UNV Ceftriaxone Sodium (Rocephin) 1 gm Q24H IVP Last administered on 09/20/19at 11:24; Start 09/16/19 at 11:00; Stop 09/21/19 at 10:45; Status DC Amino Acids/ Electrolytes/ Dextrose 1,000 ml @ 80 mls/hr [id number] IV Last administered on 09/23/19at 04:45; Start 09/16/19 at 10:15; Stop 09/23/19 at 09:35; Status DC Magnesium Sulfate/ Dextrose 100 ml @ 100 mls/hr 1X ONCE IV Last administered on 09/16/19at 12:10; Start 09/16/19 at 11:45; Stop 09/16/19 at 12:44; Status DC Potassium Chloride/Water 100 ml @ 100 mls/hr Q1H IV ; Start 09/16/19 at 14:15; Stop 09/16/19 at 14:16; Status DC Potassium Chloride/Water 100 ml @ 100 mls/hr Q1H IV ; Start 09/16/19 at 14:15; Stop 09/16/19 at 14:17; Status DC Magnesium Sulfate 100 ml @ 50 mls/hr DAILY IV Last administered on 09/19/19at 09:10; Start 09/17/19 at 09:00; Stop 09/20/19 at 08:59; Status DC Sodium Phosphate 15 mmol/Sodium Chloride 255 ml @ 62.5 mls/hr PRN 1X PRN IV SEE COMMENTS; Start 09/16/19 at 14:15 Sodium Phosphate 15 mmol/Sodium Chloride 255 ml @ 62.5 mls/hr PRN 1X PRN IV SEE COMMENTS; Start 09/16/19 at 14:15 Potassium Chloride/Water 100 ml @ 100 mls/hr PRN Q1HR PRN IV SEE COMMENTS; Start 09/16/19 at 14:30 Potassium Chloride/Water 100 ml @ 100 mls/hr PRN Q1HR PRN IV SEE COMMENTS; Start 09/16/19 at 14:30 Levetiracetam 500 mg/Dextrose 105 ml @ 420 mls/hr Q12HR IV Last administered on 09/19/19at 10:19; Start 09/16/19 at 21:00; Stop 09/19/19 at 13:06; Status DC Hydralazine HCl (Apresoline Inj) 10 mg PRN Q4HRS PRN IVP ELEVATED BP, SEE COMMENTS Last administered on 09/19/19at 09:09; Start 09/16/19 at 18:00; Stop 09/19/19 at 09:49; Status DC Magnesium Sulfate/ Dextrose 100 ml @ 100 mls/hr 1X ONCE IV ; Start 09/17/19 at 12:45; Stop 09/17/19 at 13:03; Status DC Albuterol Sulfate (Ventolin Neb Soln) 2.5 mg PRN Q6HRS PRN NEB SHORTNESS OF BREATH Last administered on 09/20/19at 17:27; Start 09/17/19 at 15:45 Budesonide (Pulmicort) 0.5 mg RTBID NEB Last administered on 09/27/19at 07:51; Start 09/17/19 at 20:00 Albuterol Sulfate (Ventolin Neb Soln) 2.5 mg Q6HRS NEB Last administered on 09/27/19at 07:51; Start 09/17/19 at 18:00 Fentanyl Citrate (Fentanyl 2ml Vial) 25 mcg PRN Q3HRS PRN IVP PAIN Last administered on 09/20/19at 08:44; Start 09/17/19 at 17:00 Hydralazine HCl (Apresoline Inj) 10 mg 1X ONCE IVP Last administered on 09/18/19at 12:18; Start 09/18/19 at 12:15; Stop 09/18/19 at 12:16; Status DC Hydralazine HCl (Apresoline Inj) 20 mg PRN Q4HRS PRN IVP ELEVATED BP, SEE COMMENTS Last administered on 09/27/19at 08:24; Start 09/18/19 at 12:15 Potassium Chloride/Water 100 ml @ 100 mls/hr Q1H IV Last administered on 09/19/19at 13:26; Start 09/19/19 at 11:00; Stop 09/19/19 at 12:59; Status DC Haloperidol Lactate (Haldol Inj) 2 mg PRN Q6HRS PRN IVP AGITATION Last administered on 09/26/19at 08:12; Start 09/19/19 at 15:00 Fentanyl Citrate 30 ml @ 0 mls/hr CONT PRN IV SEE PROTOCOL Last administered on 09/24/19at 06:37; Start 09/20/19 at 08:45 Midazolam HCl 50 mg/Sodium Chloride 50 ml @ 0 mls/hr CONT PRN IV SEE PROTOCOL Last administered on 09/24/19at 06:03; Start 09/20/19 at 08:45 Thiamine HCl 100 mg/Dextrose 51 ml @ 102 mls/hr DAILY IV Last administered on 09/27/19at 08:13; Start 09/20/19 at 16:00 Piperacillin Sod/ Tazobactam Sod (Zosyn Per Pharmacy) 1 each PRN DAILY PRN MC SEE COMMENTS; Start 09/21/19 at 10:45 Piperacillin Sod/ Tazobactam Sod 3.375 gm/Sodium Chloride 50 ml @ 100 mls/hr Q6HRS IV Last administered on 09/27/19at 05:43; Start 09/21/19 at 12:00 Alteplase, Recombinant (Cathflo For Central Catheter Clearance) 1 mg 1X ONCE INT CAT Last administered on 09/22/19at 02:16; Start 09/22/19 at 02:30; Stop 09/22/19 at 02:31; Status DC Alteplase, Recombinant (Cathflo For Central Catheter Clearance) 1 mg 1X ONCE INT CAT Last administered on 09/22/19at 03:43; Start 09/22/19 at 03:30; Stop 09/22/19 at 03:32; Status DC Polyethylene Glycol (miraLAX PACKET) 17 gm PRN DAILY PRN FT CONSTIPATION; Start 09/22/19 at 08:45 Enalaprilat (Vasotec Inj) 1.25 mg PRN Q6HRS PRN IVP HYPERTENSION Last administ ered on 09/26/19at 11:31; Start 09/26/19 at 05:45 Lorazepam (Ativan) 8 mg PRN Q1HR PRN PO For CIWA 15 or greater; Start 09/26/19 at 13:15 Lorazepam (Ativan Inj) 6 mg PRN Q1HR PRN IV For CIWA 15 or greater Last administered on 09/26/19at 13:31; Start 09/26/19 at 13:15 Diphenhydramine HCl (Benadryl) 25 mg PRN Q15MIN PRN IVP EPS symptoms 2'Haldol admin Last administered on 09/26/19at 13:32; Start 09/26/19 at 13:15 Active Scripts Active Protonix (Pantoprazole Sodium) 40 Mg Tablet.dr 40 Mg PO DAILYAC PRN 30 Days Reported Amlodipine Besylate 5 Mg Tablet 5 Mg PO DAILY Proair Hfa Inhaler (Albuterol Sulfate) 8.5 Gm Hfa.aer.ad 1 Puff INH PRN Q4HRS PRN Symbicort 160-4.5 Mcg Inhaler (Budesonide/Formoterol Fumarate) 10.2 Gm Hfa.aer.ad 2 Puff IH BID Theophylline (Theophylline Anhydrous) 400 Mg Tablet.er 300 Mg PO BID Vitals/I & O Vital Sign - Last 24 Hours 09/26/19 09/26/19 09/26/19 09/26/19 10:00 11:00 11:31 12:00 Pulse 75 92 114 Resp 24 22 B/P (MAP) 165/96 (119) 184/95 (124) 190/100 Pulse Ox 96 96 O2 Delivery Room Air Room Air Room Air 09/26/19 09/26/19 09/26/19 09/26/19 12:00 13:00 13:01 13:33 Temp 98.7 98.7 Pulse 96 102 102 Resp B/P (MAP) 184/97 (126) 193/121 (145) 193/121 Pulse Ox 96 96 O2 Delivery Room Air Room Air Room Air 09/26/19 09/26/19 09/26/19 09/26/19 14:00 15:00 16:00 16:00 Temp 98.9 98.9 Pulse 102 102 102 Resp B/P (MAP) 176/98 (124) 160/98 (118) 159/82 (107) Pulse Ox 96 96 96 O2 Delivery Room Air Room Air Room Air Room Air 09/26/19 09/26/19 09/26/19 09/26/19 17:00 18:00 19:00 20:00 Pulse 102 75 72 Resp B/P (MAP) 123/73 (90) 145/62 (89) 118/60 (79) Pulse Ox 94 94 97 O2 Delivery Room Air Room Air Room Air Room Air 09/26/19 09/26/19 09/26/19 09/26/19 20:00 20:07 20:08 21:07 Temp 97.8 97.8 Pulse 66 78 Resp 20 B/P (MAP) 129/67 (87) 152/70 (97) Pulse Ox 96 98 98 95 O2 Delivery Room Air Room Air Room Air Room Air 09/26/19 09/26/19 09/27/19 09/27/19 22:00 23:00 00:00 00:00 Temp 98.7 98.7 Pulse 73 70 70 Resp 20 B/P (MAP) 143/61 (88) 150/73 (98) 160/78 (105) Pulse Ox 97 96 95 O2 Delivery Room Air Room Air Room Air Room Air 09/27/19 09/27/19 09/27/19 09/27/19 01:00 02:00 03:00 04:00 Temp 98.3 98.3 Pulse 65 65 73 68 Resp 20 B/P (MAP) 140/79 (99) 168/88 (114) 151/83 (105) 149/79 (102) Pulse Ox 96 96 99 97 O2 Delivery Room Air Room Air Room Air Room Air 309/27/19 09/27/19 09/27/19 04:00 05:01 06:00 07:29 Temp 97.9 97.9 Pulse 69 62 61 Resp 20 20 20 B/P (MAP) 175/98 (123) 165/87 (113) 169/88 (115) Pulse Ox 97 96 100 O2 Delivery Room Air Room Air Room Air Room Air 09/27/19 09/27/19 09/27/19 09/27/19 07:48 08:00 08:24 08:30 Pulse 65 69 Resp 20 B/P (MAP) 183/89 183/89 (120) Pulse Ox 98 94 O2 Delivery Room Air Room Air Room Air 09/27/19 09:08 Pulse 80 Resp 20 B/P (MAP) 160/80 (106) Pulse Ox 96 O2 Delivery Room Air Intake and Output 09/26/19 09/26/19 09/27/19 15:00 23:00 07:00 Intake Total 240 ml 322 ml Output Total 2080 ml 305 ml Balance -1840 ml 17 ml JUANCARLOS CULP MD Sep 27, 2019 09:45
--- NOTE | 2019-09-27 10:52 | NUR ---
SS following up with discharge planning. [facility] continuing to follow for self pay status. Pt is currently on room air. SS will continue to follow for discharge planning.
--- NOTE | 2019-09-27 12:34 | PDOC ---
Objective: Objective: D/w nurse - hasn't eaten today but tolerated diet over the weekend. Vital Signs: Vital Signs Date Time Temp Pulse Resp B/P (MAP) Pulse Ox O2 Delivery O2 Flow Rate FiO2 09/27/19 11:30 98.2 106 20 176/76 (109) 98 Room Air 98.2 PE: GEN: NAD LUNGS: room air HEART: mildly tachycardic on monitor NEURO/PSYCH: sleeping, not awakened A/P: Alcohol abuse Resp failure, encephalopathy - extubated, better Anemia - last labs on 09/22 Erosive esophagitis, DU - s/p endotherapy 09/15/19 - on IV PPI -- Change to PO PPI. Scheduled Miralax. Hemodynamically unstable?: No Is patient in severe pain?: No Is NPO status required?: No MESSI GORE Sep 27, 2019 12:34
[2019-09-27] MEDS ORDERED: POLYETHYLENE GLYCOL 3350 17 GM PACKET. PO PRN (12:45)
[2019-09-27] MEDS: POLYETHYLENE GLYCOL 3350 17 GM PACKET. PO SCH (13:00)
--- NOTE | 2019-09-27 13:18 | PDOC ---
[facility] [facility] PROGRESS NOTE Chief Complaint Chief Complaint 0. Respiratory failure on the vent 1. acute UGI BLEED 2. severe diffuse hepatic steatosis. 3. Erosive esophagitis, epinephrine injection duodenal ulcer in the first and second portions of duodenum with a visible vessel, status post epinephrine injection. 4. polysubstance abuse, alcohol cocaine and marijuana 5. Electrolyte imbalance 6. Malignant hypertension History of Present Illness History of Present Illness [id number] Patient seen and examined in the ICU He is starting to wake up more for the past 48 hours but is still very shaky States he is going to quit drinking when he gets home, although he has told me that in the past Discussed with case management Discussed with RN Chart reviewed [id number] Patient seen and examined He is now extubated Extremely weak and tremulous Chart reviewed Discussed with RN Seems that he needs high-dose benzodiazepines [id number] Patient seen and examined in the ICU He remains on the vent assist control 16/500/40% Eyes are open but he doesn't seem to recognize me Chart reviewed Discussed with RN Still critically ill [id number] Patient seen and examined in the ICU He remains mechanically ventilated with an OG feeds running at 55 mL/h Vent settings as follows assist-control/10/500/40% with 5 of PEEP Chart reviewed Discussed with RN He is critically ill [id number] Patient seen and examined in the ICU He remains critically ill On mechanical ventilation with assist control/16/500/40% Sedated with propofol and fentanyl Has PPN and OG feeds running Chart reviewed Discussed with RN [id number] Patient seen and examined in the ICU once again He remains intubated and on assist-control/16/500/40% with 5 of PEEP Sedated with Precedex Getting TPN and albumin Also on Versed levo fed He is critically ill Discussed with RN Chart reviewed [id number] Patient seen and examined in the ICU He is intubated Assist-control/16/500/60% FiO2 Chart reviewed Discussed with RN Vitals/I&O Vitals/I&O: Vital Signs Date Time Temp Pulse Resp B/P (MAP) Pulse Ox O2 Delivery O2 Flow Rate FiO2 09/27/19 13:07 Room Air 09/27/19 12:55 76 183/95 09/27/19 12:45 20 97 09/27/19 11:30 98.2 98.2 I & O 3/15/20 3/15/20 3/16/20 15:00 23:00 07:00 Intake Total 240 ml 322 ml Output Total 2080 ml 305 ml Balance -1840 ml 17 ml Physical Exam General: Alert, Other (intermittently confused shaking) Heart: Regular rate, Normal S1, Normal S2 Lungs: Other (rhonchi) Abdomen: Normal bowel sounds, Soft, No tenderness Extremities: No cyanosis, No edema Skin: No rashes Review of Systems Review of Systems: Complains of weakness complains of shaking Assessment and Plan Assessmemt and Plan Problems Medical Problems: (1) GI bleed Status: Acute 0. Respiratory failure on the vent 1. acute UGI BLEED 2. severe diffuse hepatic steatosis. 3. Erosive esophagitis, epinephrine injection duodenal ulcer in the first and second portions of duodenum with a visible vessel, status post epinephrine injection. 4. polysubstance abuse, alcohol cocaine and marijuana 5. Electrolyte imbalance 6. Malignant hypertension Plan ICU monitoring GI following High dose benzodiazepines When necessary transfusions alcohol withdrawal protocol SCD'S IV proton pump inhibitors Trend labs When necessary hydralazine He is still critically ill Long-term guarded Total time 32 minutes Comment Review of Relevant I have reviewed the following items wali (where applicable) has been applied. Hemodynamically unstable?: No Is patient in severe pain?: No Is NPO status required?: No MAY FROST III DO Sep 27, 2019 13:18
[2019-09-28] VITALS (19 sets, daily range): BP systolic 131–178; BP diastolic 66–120
[2019-09-28] MEDS: ALBUTEROL SULFATE 2.5 MG/3 ML NEBU. NEB SCH ×5 (00:15→20:51)
[2019-09-28] MEDS: DEXMEDETOMIDINE 400 MCG in IV NORMAL SALINE 100ML 96 ML IV PRN (04:57)
[2019-09-28] MEDS: PIPERACILLIN/TAZOBACTAM 3.375 GM in IV NORMAL SALINE 50ML 50 ML IV SCH ×4 (05:03→23:27)
[2019-09-28] MEDS: BUDESONIDE 0.5 MG/2 ML NEBU. NEB SCH ×2 (08:00→19:36)
[2019-09-28] MEDS: PANTOPRAZOLE 40 MG TABLET.DR. PO SCH (08:18)
[2019-09-28] MEDS: THIAMINE INJ 100 MG in IV DEXTROSE 5% 50 ML IV SCH (08:50)
[2019-09-28] MEDS: POLYETHYLENE GLYCOL 3350 17 GM PACKET. PO SCH ×2 (08:50→09:00)
[2019-09-28] MEDS: LORazepam 1 MG TABLET PO SCH ×4 (09:02→20:23)
--- NOTE | 2019-09-28 09:46 | PDOC ---
Objective: Objective: D/w nurse - eating well, no stool, remains in ICU for precedex but plans to change to ativan. Looks like refused Miralax. Vital Signs: Vital Signs Date Time Temp Pulse Resp B/P (MAP) Pulse Ox O2 Delivery O2 Flow Rate FiO2 09/28/19 09:04 108 151/84 (106) 91 09/28/19 08:26 Room Air 09/28/19 07:19 97.9 19 97.9 PE: GEN: NAD LUNGS: room air HEART: mildly tachycardic ABD: non-distended NEURO/PSYCH: sleeping, not awakened A/P: Alcohol abuse Erosive esophagitis, DU - s/p endotherapy 09/15/19 - on PPI -- Continue same per GI. Hemodynamically unstable?: No Is patient in severe pain?: No Is NPO status required?: No MESSI OGRE Sep 28, 2019 09:46
--- NOTE | 2019-09-28 11:19 | PDOC ---
PROGRESS NOTES Assessment Problems Medical Problems: (1) GI bleed Status: Acute Metabolic encephalopathy. Still on Precedex Toxic encephalopathy. Respiratory failure, extubated. Alcohol intoxication, alcohol level 111. Korsakoff Syndrome. Seizure or seizure like episodes, alcohol/withdrawal related. Pancreatitis, recurrent. Right C7 radiculopathy per history. CAD. HTN. KIMBERLY. Tremors. Left eye injury s/p surgery in 2014 Plan Try replacing the Precedex with scheduled oral Ativan Stop Vit B1 100 mg IV daily. Mobilize with some physical therapy Transfer to floor Treat medical diseases. Alcohol abstinence. Objective Vital Signs Date Time Temp Pulse Resp B/P (MAP) Pulse Ox O2 Delivery O2 Flow Rate FiO2 09/28/19 10:59 98.3 84 16 148/82 (104) 97 Room Air 98.3 Intake and Output 09/28/19 06:59 Intake Total 1859.8 ml Output Total 850 ml Balance 1009.8 ml Intake Oral 400 ml IV Total 1459.8 ml Output Urine Total 850 ml PHYSICAL EXAM Alert, knows location, not date Right people reacts, left pupil large, unreactive EOMI. CN: no focal findings. Muscle tone: normal. Muscle strength: slight movement to pain DTR: 1+ Plantar reflex: silent Gait: not examined in bed. Sensory exam: no abnormal findings. No cerebellar signs elicited. Mild tremulousness Review of Relevant I have reviewed the following items wali (where applicable) has been applied. Medications Current Medications Ondansetron HCl (Zofran) 4 mg STK-MED ONCE .ROUTE ; Start 09/14/19 at 17:54; Stop 09/14/19 at 17:54; Status DC Lorazepam (Ativan Inj) 2 mg STK-MED ONCE .ROUTE ; Start 09/14/19 at 17:55; Stop 09/14/19 at 17:55; Status DC Lorazepam (Ativan Inj) 2 mg 1X ONCE IVP Last administered on 09/14/19at 18:05; Start 09/14/19 at 18:00; Stop 09/14/19 at 18:09; Status DC Ondansetron HCl (Zofran) 4 mg 1X ONCE IVP Last administered on 09/14/19at 18:04; Start 09/14/19 at 18:00; Stop 09/14/19 at 18:09; Status DC Pantoprazole Sodium (PROTONIX VIAL for IV PUSH) 40 mg 1X ONCE IVP Last administered on 09/14/19at 18:43; Start 09/14/19 at 18:00; Stop 09/14/19 at 18:09; Status DC Sodium Chloride 1,000 ml @ 1,000 mls/hr 1X ONCE IV Last administered on 09/14/19at 19:10; Start 09/14/19 at 18:00; Stop 09/14/19 at 19:00; Status DC Multivitamins 10 ml/Thiamine HCl 100 mg/Folic Acid 1 mg/Sodium Chloride 1,011.2 ml @ 100 mls/ hr DAILY IV Last administered on 09/18/19at 09:37; Start 09/14/19 at 18:30; Stop 09/18/19 at 19:07; Status DC Lorazepam (Ativan Inj) 2 mg PRN Q1HR PRN IV For CIWA 8-14 Last administered on 09/28/19at 08:54; Start 09/14/19 at 18:30 Lorazepam (Ativan Inj) 4 mg PRN Q1HR PRN IV For CIWA 15 or greater Last administered on 09/27/19at 21:51; Start 09/14/19 at 18:30 Pantoprazole Sodium 80 mg/ Sodium Chloride 100 ml @ 10 mls/hr 1X ONCE IV Last administered on 09/14/19at 18:44; Start 09/14/19 at 18:30; Stop 09/15/19 at 04:29; Status DC Iohexol (Omnipaque 300 Mg/ml) 75 ml 1X ONCE IV ; Start 09/14/19 at 19:00; Stop 09/14/19 at 19:01; Status DC Info (CONTRAST GIVEN -- Rx MONITORING) 1 each PRN DAILY PRN MC SEE COMMENTS; Start 09/14/19 at 19:00; Stop 09/16/19 at 18:59; Status DC Ondansetron HCl (Zofran) 4 mg PRN Q8HRS PRN IV NAUSEA/VOMITING; Start 09/14/19 at 19:30; Stop 09/15/19 at 19:29; Status DC Sodium Chloride 1,000 ml @ 125 mls/hr Q8H IV Last administered on 09/15/19at 15:39; Start 09/14/19 at 19:19; Stop 09/15/19 at 19:18; Status DC Etomidate (Amidate) 20 mg STK-MED ONCE IV ; Start 09/14/19 at 21:22; Stop 09/14/19 at 21:22; Status DC Lidocaine HCl (Lidocaine Pf 2% Vial) 5 ml STK-MED ONCE .ROUTE ; Start 09/14/19 at 21:22; Stop 09/14/19 at 21:22; Status DC Rocuronium [place] (Zemuron) 50 mg STK-MED ONCE .ROUTE ; Start 09/14/19 at 21:23; Stop 09/14/19 at 21:23; Status DC Phenylephrine HCl (PHENYLEPHRINE in 0.9% NACL PF) 1 mg STK-MED ONCE IV ; Start 09/14/19 at 21:24; Stop 09/14/19 at 21:24; Status DC Propofol 100 ml @ 0 mls/hr CONT PRN IV SEE PROTOCOL Last administered on 09/24/19at 09:12; Start 09/14/19 at 22:30 Fentanyl Citrate (Fentanyl 2ml Vial) 25 mcg PRN Q1HR PRN IV SEE COMMENTS; Start 09/14/19 at 22:30; Stop 09/15/19 at 06:26; Status DC Fentanyl Citrate (Fentanyl 2ml Vial) 50 mcg PRN Q1HR PRN IV SEE COMMENTS; Start 09/14/19 at 22:30; Stop 09/15/19 at 06:26; Status DC Epinephrine HCl (EPINEPHrine SYRINGE) 1 mg STK-MED ONCE .ROUTE ; Start 09/14/19 at 23:19; Stop 09/14/19 at 23:20; Status DC Pantoprazole Sodium (PROTONIX VIAL for IV PUSH) 40 mg BID IVP Last administered on 09/27/19at 08:15; Start 09/15/19 at 09:00; Stop 09/27/19 at 12:35; Status DC Epinephrine HCl (EPINEPHrine SYRINGE) 1 mg STK-MED ONCE IV Last administered on 09/14/19at 23:00; Start 09/14/19 at 23:00; Stop 09/14/19 at 23:29; Status DC Fentanyl Citrate 30 ml @ 0 mls/hr CONT PRN IV SEE PROTOCOL Last administered on 09/16/19at 20:58; Start 09/14/19 at 23:45; Stop 09/17/19 at 16:28; Status DC Midazolam HCl 50 mg/Sodium Chloride 50 ml @ 0 mls/hr CONT PRN IV SEE PROTOCOL Last administered on 09/15/19at 22:10; Start 09/14/19 at 23:45; Stop 09/17/19 at 16:28; Status DC Sodium Bicarbonate (Sodium Bicarb Adult 8.4% Syr) 50 meq 1X ONCE IV Last administered on 09/15/19at 01:25; Start 09/15/19 at 01:00; Stop 09/15/19 at 01:01; Status DC Sodium Chloride 1,000 ml @ 50 mls/hr Q20H IV Last administered on 09/27/19at 23:39; Start 09/16/19 at 02:00 Dexmedetomidine HCl 400 mcg/ Sodium Chloride 100 ml @ 0 mls/hr CONT PRN IV AGITATION Last administered on 09/28/19at 04:57; Start 09/16/19 at 08:30; Stop 09/28/19 at 08:55; Status DC Sodium Chloride 500 ml @ 500 mls/hr 1X PRN PRN IV HYPOTENTION; Start 09/16/19 at 08:30 Atropine Sulfate (ATROPINE 0.5mg SYRINGE) 0.5 mg PRN Q5MIN PRN IV SEE COMMENTS; Start 09/16/19 at 08:30; Stop 09/28/19 at 09:42; Status DC Amino Acids/ Glycerin/ Electrolytes 1,000 ml @ 80 mls/hr [id number] IV ; Start 09/16/19 at 10:00; Status UNV Ceftriaxone Sodium (Rocephin) 1 gm Q24H IVP Last administered on 09/20/19at 11:24; Start 09/16/19 at 11:00; Stop 09/21/19 at 10:45; Status DC Amino Acids/ Electrolytes/ Dextrose 1,000 ml @ 80 mls/hr [id number] IV Last administered on 09/23/19at 04:45; Start 09/16/19 at 10:15; Stop 09/23/19 at 09:35; Status DC Magnesium Sulfate/ Dextrose 100 ml @ 100 mls/hr 1X ONCE IV Last administered on 09/16/19at 12:10; Start 09/16/19 at 11:45; Stop 09/16/19 at 12:44; Status DC Potassium Chloride/Water 100 ml @ 100 mls/hr Q1H IV ; Start 09/16/19 at 14:15; Stop 09/16/19 at 14:16; Status DC Potassium Chloride/Water 100 ml @ 100 mls/hr Q1H IV ; Start 09/16/19 at 14:15; Stop 09/16/19 at 14:17; Status DC Magnesium Sulfate 100 ml @ 50 mls/hr DAILY IV Last administered on 09/19/19at 09:10; Start 09/17/19 at 09:00; Stop 09/20/19 at 08:59; Status DC Sodium Phosphate 15 mmol/Sodium Chloride 255 ml @ 62.5 mls/hr PRN 1X PRN IV SEE COMMENTS; Start 09/16/19 at 14:15 Sodium Phosphate 15 mmol/Sodium Chloride 255 ml @ 62.5 mls/hr PRN 1X PRN IV SEE COMMENTS; Start 09/16/19 at 14:15 Potassium Chloride/Water 100 ml @ 100 mls/hr PRN Q1HR PRN IV SEE COMMENTS; Start 09/16/19 at 14:30 Potassium Chloride/Water 100 ml @ 100 mls/hr PRN Q1HR PRN IV SEE COMMENTS; Start 09/16/19 at 14:30 Levetiracetam 500 mg/Dextrose 105 ml @ 420 mls/hr Q12HR IV Last administered on 09/19/19at 10:19; Start 09/16/19 at 21:00; Stop 09/19/19 at 13:06; Status DC Hydralazine HCl (Apresoline Inj) 10 mg PRN Q4HRS PRN IVP ELEVATED BP, SEE COMMENTS Last administered on 09/19/19at 09:09; Start 09/16/19 at 18:00; Stop 09/19/19 at 09:49; Status DC Magnesium Sulfate/ Dextrose 100 ml @ 100 mls/hr 1X ONCE IV ; Start 09/17/19 at 12:45; Stop 09/17/19 at 13:03; Status DC Albuterol Sulfate (Ventolin Neb Soln) 2.5 mg PRN Q6HRS PRN NEB SHORTNESS OF BREATH Last administered on 09/20/19at 17:27; Start 09/17/19 at 15:45 Budesonide (Pulmicort) 0.5 mg RTBID NEB Last administered on 09/28/19at 08:00; Start 09/17/19 at 20:00 Albuterol Sulfate (Ventolin Neb Soln) 2.5 mg Q6HRS NEB Last administered on 09/28/19at 08:00; Start 09/17/19 at 18:00 Fentanyl Citrate (Fentanyl 2ml Vial) 25 mcg PRN Q3HRS PRN IVP PAIN Last administered on 09/20/19at 08:44; Start 09/17/19 at 17:00 Hydralazine HCl (Apresoline Inj) 10 mg 1X ONCE IVP Last administered on 09/18/19at 12:18; Start 09/18/19 at 12:15; Stop 09/18/19 at 12:16; Status DC Hydralazine HCl (Apresoline Inj) 20 mg PRN Q4HRS PRN IVP ELEVATED BP, SEE COMMENTS Last administered on 09/27/19at 12:55; Start 09/18/19 at 12:15 Potassium Chloride/Water 100 ml @ 100 mls/hr Q1H IV Last administered on 09/19/19at 13:26; Start 09/19/19 at 11:00; Stop 09/19/19 at 12:59; Status DC Haloperidol Lactate (Haldol Inj) 2 mg PRN Q6HRS PRN IVP AGITATION Last administered on 09/26/19at 08:12; Start 09/19/19 at 15:00 Fentanyl Citrate 30 ml @ 0 mls/hr CONT PRN IV SEE PROTOCOL Last administered on 09/24/19at 06:37; Start 09/20/19 at 08:45 Midazolam HCl 50 mg/Sodium Chloride 50 ml @ 0 mls/hr CONT PRN IV SEE PROTOCOL Last administered on 09/24/19at 06:03; Start 09/20/19 at 08:45 Thiamine HCl 100 mg/Dextrose 51 ml @ 102 mls/hr DAILY IV Last administered on 09/28/19at 08:50; Start 09/20/19 at 16:00 Piperacillin Sod/ Tazobactam Sod (Zosyn Per Pharmacy) 1 each PRN DAILY PRN MC SEE COMMENTS; Start 09/21/19 at 10:45 Piperacillin Sod/ Tazobactam Sod 3.375 gm/Sodium Chloride 50 ml @ 100 mls/hr Q6HRS IV Last administered on 09/28/19at 05:03; Start 09/21/19 at 12:00 Alteplase, Recombinant (Cathflo For Central Catheter Clearance) 1 mg 1X ONCE INT CAT Last administered on 09/22/19at 02:16; Start 09/22/19 at 02:30; Stop 09/22/19 at 02:31; Status DC Alteplase, Recombinant (Cathflo For Central Catheter Clearance) 1 mg 1X ONCE INT CAT Last administered on 09/22/19at 03:43; Start 09/22/19 at 03:30; Stop 09/22/19 at 03:32; Status DC Polyethylene Glycol (miraLAX PACKET) 17 gm PRN DAILY PRN FT CONSTIPATION; Start 09/22/19 at 08:45; Stop 09/27/19 at 12:35; Status DC Enalaprilat (Vasotec Inj) 1.25 mg PRN Q6HRS PRN IVP HYPERTENSION Last administered on 09/26/19at 11:31; Start 09/26/19 at 05:45 Lorazepam (Ativan) 8 mg PRN Q1HR PRN PO For CIWA 15 or greater; Start 09/26/19 at 13:15 Lorazepam (Ativan Inj) 6 mg PRN Q1HR PRN IV For CIWA 15 or greater Last administered on 09/26/19at 13:31; Start 09/26/19 at 13:15 Diphenhydramine HCl (Benadryl) 25 mg PRN Q15MIN PRN IVP EPS symptoms 2'Haldol admin Last administered on 09/26/19at 13:32; Start 09/26/19 at 13:15 Pantoprazole Sodium (Protonix) 40 mg DAILYAC PO Last administered on 09/28/19at 08:18; Start 09/28/19 at 07:30 Polyethylene Glycol (miraLAX PACKET) 17 gm DAILY PO Last administered on 09/27/19at 13:00; Start 09/27/19 at 13:00 Polyethylene Glycol (miraLAX PACKET) 17 gm PRN DAILY PRN PO CONSTIPATION; Start 09/27/19 at 12:45 Lorazepam (Ativan) 2 mg QID PO Last administered on 09/28/19at 09:02; Start 09/28/19 at 09:00 Lactobacillus Rhamnosus (Culturelle) 1 cap BID PO ; Start 09/28/19 at 21:00 Active Scripts Active Protonix (Pantoprazole Sodium) 40 Mg Tablet.dr 40 Mg PO DAILYAC PRN 30 Days Reported Amlodipine Besylate 5 Mg Tablet 5 Mg PO DAILY Proair Hfa Inhaler (Albuterol Sulfate) 8.5 Gm Hfa.aer.ad 1 Puff INH PRN Q4HRS PRN Symbicort 160-4.5 Mcg Inhaler (Budesonide/Formoterol Fumarate) 10.2 Gm Hfa.aer.ad 2 Puff IH BID Theophylline (Theophylline Anhydrous) 400 Mg Tablet.er 300 Mg PO BID Vitals/I & O Vital Sign - Last 24 Hours 09/27/19 09/27/19 09/27/19 09/27/19 11:30 12:00 12:45 12:55 Temp 98.2 98.2 Pulse 106 76 76 Resp 20 20 B/P (MAP) 176/76 (109) 183/95 (124) 183/95 Pulse Ox 98 97 O2 Delivery Room Air Room Air Room Air 09/27/19 09/27/19 09/27/19 09/27/19 13:00 13:07 14:00 15:30 Temp 98.2 98.2 Pulse 90 94 86 Resp 20 20 22 B/P (MAP) 177/99 (125) 153/78 (103) 140/80 (100) Pulse Ox 97 95 94 O2 Delivery Room Air Room Air Room Air Room Air 09/27/19 09/27/19 09/27/19 09/27/19 16:00 16:23 17:20 18:20 Pulse 95 95 90 Resp 20 20 20 B/P (MAP) 118/63 (81) 149/81 (103) 165/88 (113) Pulse Ox 95 96 98 O2 Delivery Room Air Room Air Room Air Room Air 09/27/19 09/27/19 09/27/19 09/27/19 19:00 20:04 20:10 20:10 Temp 97.6 97.6 Pulse 76 74 Resp 18 B/P (MAP) 169/85 (113) 181/100 (127) Pulse Ox 97 98 O2 Delivery Room Air Room Air Room Air Room Air 09/27/19 09/27/19 09/27/19 09/28/19 21:12 22:07 23:00 00:01 Pulse 73 80 66 B/P (MAP) 172/99 (123) 174/100 (124) 164/67 (99) Pulse Ox 95 96 97 O2 Delivery Room Air Room Air Room Air Room Air 09/28/19 09/28/19 09/28/19 09/28/19 00:01 01:07 02:00 03:00 Temp 97.7 97.7 Pulse 64 72 69 68 Resp 20 B/P (MAP) 149/92 (111) 161/87 (111) 159/88 (111) 145/76 (99) Pulse Ox 96 96 96 96 O2 Delivery Room Air Room Air Room Air Room Air 09/28/19 09/28/19 09/28/19 09/28/19 04:12 04:14 04:55 05:59 Pulse 66 66 63 Resp 18 B/P (MAP) 161/84 (109) 156/89 (111) 173/97 (122) Pulse Ox 94 96 95 O2 Delivery Room Air Room Air Room Air Room Air 09/28/19 09/28/19 09/28/19 09/28/19 07:19 08:09 08:15 08:26 Temp 97.9 97.9 Pulse 60 87 Resp 19 B/P (MAP) 156/88 (110) 161/97 (118) Pulse Ox 96 97 O2 Delivery Room Air Room Air Room Air Room Air 09/28/19 09/28/19 09/28/19 09:04 10:25 10:59 Temp 98.3 98.3 Pulse 108 69 84 Resp 16 B/P (MAP) 151/84 (106) 171/83 (112) 148/82 (104) Pulse Ox 91 96 97 O2 Delivery Room Air Room Air Intake and Output 09/27/19 09/27/19 09/28/19 14:59 22:59 06:59 Intake Total 100 ml 657 ml 1102.8 ml Output Total 450 ml 400 ml Balance -350 ml 257 ml 1102.8 ml JUANCARLOS CULP MD Sep 28, 2019 11:19
[2019-09-28] MEDS: hydrALAZINE 20 MG/ML VIAL. IVP PRN (13:39)
--- NOTE | 2019-09-28 13:45 | PDOC ---
[employer] [facility] PROGRESS NOTE Chief Complaint Chief Complaint 0. Resolving respiratory failure (was intubated now extubated for 2 days) 1. acute UGI BLEED 2. severe diffuse hepatic steatosis. 3. Erosive esophagitis, epinephrine injection duodenal ulcer in the first and second portions of duodenum with a visible vessel, status post epinephrine injection. 4. polysubstance abuse, alcohol cocaine and marijuana 5. Electrolyte imbalance 6. Malignant hypertension History of Present Illness History of Present Illness [id number] Patient seen and examined in the ICU Chart reviewed Discussed with RN Discussed with PT [id number] Patient seen and examined in the ICU He is starting to wake up more for the past 48 hours but is still very shaky States he is going to quit drinking when he gets home, although he has told me that in the past Discussed with case management Discussed with RN Chart reviewed [id number] Patient seen and examined He is now extubated Extremely weak and tremulous Chart reviewed Discussed with RN Seems that he needs high-dose benzodiazepines [id number] Patient seen and examined in the ICU He remains on the vent assist control 16/500/40% Eyes are open but he doesn't seem to recognize me Chart reviewed Discussed with RN Still critically ill [id number] Patient seen and examined in the ICU He remains mechanically ventilated with an OG feeds running at 55 mL/h Vent settings as follows assist-control/10/500/40% with 5 of PEEP Chart reviewed Discussed with RN He is critically ill [id number] Patient seen and examined in the ICU He remains critically ill On mechanical ventilation with assist control/16/500/40% Sedated with propofol and fentanyl Has PPN and OG feeds running Chart reviewed Discussed with RN [id number] Patient seen and examined in the ICU once again He remains intubated and on assist-control/16/500/40% with 5 of PEEP Sedated with Precedex Getting TPN and albumin Also on Versed levo fed He is critically ill Discussed with RN Chart reviewed [id number] Patient seen and examined in the ICU He is intubated Assist-control/16/500/60% FiO2 Chart reviewed Discussed with RN Vitals/I&O Vitals/I&O: Vital Signs Date Time Temp Pulse Resp B/P (MAP) Pulse Ox O2 Delivery O2 Flow Rate FiO2 09/28/19 13:39 98 178/92 09/28/19 13:04 95 Room Air 09/28/19 10:59 98.3 16 98.3 I & O 09/27/19 09/27/19 09/28/19 15:00 23:00 07:00 Intake Total 100 ml 657 ml 1102.8 ml Output Total 450 ml 400 ml Balance -350 ml 257 ml 1102.8 ml Physical Exam General: Alert, Other (intermittently confused shaking) Heart: Regular rate, Normal S1, Normal S2 Lungs: Other (rhonchi) Abdomen: Normal bowel sounds, Soft, No tenderness Extremities: No cyanosis, No edema Skin: No rashes Assessment and Plan Assessmemt and Plan Problems Medical Problems: (1) GI bleed Status: Acute 0. Slowing restrictive failure (he was on the vent but now extubated for 2 days) 1. acute UGI BLEED 2. severe diffuse hepatic steatosis. 3. Erosive esophagitis, epinephrine injection duodenal ulcer in the first and second portions of duodenum with a visible vessel, status post epinephrine injection. 4. polysubstance abuse, alcohol cocaine and marijuana 5. Electrolyte imbalance 6. Malignant hypertension Plan Transfer to medical floor GI following High dose benzodiazepines When necessary transfusions alcohol withdrawal protocol SCD'S IV proton pump inhibitors Trend labs When necessary hydralazine Long-term prognosis guarded Comment Review of Relevant I have reviewed the following items wali (where applicable) has been applied. Medications: Current Medications Medications (Trade) Dose Ordered Sig/Wil Route PRN Reason Start Time Stop Time Status Last Admin Dose Admin Pantoprazole Sodium (Protonix) 40 mg DAILYAC PO 09/28/19 07:30 09/28/19 08:18 Lorazepam (Ativan) 2 mg QID PO 09/28/19 09:00 09/28/19 12:30 Hemodynamically unstable?: No Is patient in severe pain?: No Is NPO status required?: No MAY FROST III DO Sep 28, 2019 13:45
[2019-09-28] MEDS: amLODIPine BESYLATE 5 MG TABLET PO SCH (15:02)
--- NOTE | 2019-09-28 16:09 | NUR ---
RN NOTE patient transferred to [id number] via wheelchair by this RN. report called to [facility]. patient called family to update them with the plan of care. patients BP has been running high homr norvasc restarted and given prior to transfer.
[2019-09-28] MEDS: LACTOBACILLUS RHAMNOSUS GG 1 CAPSULE. PO SCH (20:24)
[2019-09-28] MEDS: diphenhydrAMINE HCL 25 MG CAPSULE PO PRN (21:21)
[2019-09-29] MEDS: HALOPERIDOL LACTATE 5 MG/ML VIAL. IVP PRN ×2 (02:07→16:36)
[2019-09-29] MEDS: ALBUTEROL SULFATE 2.5 MG/3 ML NEBU. NEB SCH ×5 (02:46→23:24)
[2019-09-29] MEDS: PIPERACILLIN/TAZOBACTAM 3.375 GM in IV NORMAL SALINE 50ML 50 ML IV SCH ×3 (06:10→17:57)
[2019-09-29 07:00] VITALS: BP_SYST 123; BP_SYST 162; BP_DIAS 59; BP_DIAS 96
[2019-09-29] MEDS: BUDESONIDE 0.5 MG/2 ML NEBU. NEB SCH ×2 (07:53→19:45)
--- NOTE | 2019-09-29 08:52 | PDOC ---
PROGRESS NOTES Assessment Problems Medical Problems: (1) GI bleed Status: Acute Metabolic encephalopathy. Off Precedex, on scheduled lorazepam Toxic encephalopathy. Respiratory failure, extubated. Alcohol intoxication, alcohol level 111. Korsakoff Syndrome. Seizure or seizure like episodes, alcohol/withdrawal related. Pancreatitis, recurrent. Right C7 radiculopathy per history. CAD. HTN. KIMBERLY. Tremors. Left eye injury s/p surgery in 2014 Hiccups, received Haldol last night Plan Discharge planing Scheduled oral Ativan, also on Zyprexa Haldol as needed for hiccups, I suspect these will be refractory Physical therapy Treat medical diseases. Alcohol abstinence. Subjective feels better Objective Vital Signs Date Time Temp Pulse Resp B/P (MAP) Pulse Ox O2 Delivery O2 Flow Rate FiO2 09/29/19 07:54 Room Air 09/29/19 03:28 24 09/29/19 02:46 95 09/28/19 23:35 98.2 80 169/99 (122) 98.2 Intake and Output 09/29/19 07:00 Intake Total 1913.28 ml Output Total 1355 ml Balance 558.28 ml Intake Oral 1200 ml IV Total 713.28 ml Output Urine Total 1355 ml # Voids 1 PHYSICAL EXAM Alert, knows location, not date Right people reacts, left pupil large, unreactive EOMI. CN: no focal findings. Muscle tone: normal. Muscle strength: slight movement to pain DTR: 1+ Plantar reflex: silent Gait: not examined in bed. Sensory exam: no abnormal findings. No cerebellar signs elicited. Mild tremulousness Has hiccups Review of Relevant I have reviewed the following items wali (where applicable) has been applied. Medications Current Medications Ondansetron HCl (Zofran) 4 mg STK-MED ONCE .ROUTE ; Start 09/14/19 at 17:54; Stop 09/14/19 at 17:54; Status DC Lorazepam (Ativan Inj) 2 mg STK-MED ONCE .ROUTE ; Start 09/14/19 at 17:55; Stop 09/14/19 at 17:55; Status DC Lorazepam (Ativan Inj) 2 mg 1X ONCE IVP Last administered on 09/14/19at 18:05; Start 09/14/19 at 18:00; Stop 09/14/19 at 18:09; Status DC Ondansetron HCl (Zofran) 4 mg 1X ONCE IVP Last administered on 09/14/19at 18:04; Start 09/14/19 at 18:00; Stop 09/14/19 at 18:09; Status DC Pantoprazole Sodium (PROTONIX VIAL for IV PUSH) 40 mg 1X ONCE IVP Last administered on 09/14/19at 18:43; Start 09/14/19 at 18:00; Stop 09/14/19 at 18:09; Status DC Sodium Chloride 1,000 ml @ 1,000 mls/hr 1X ONCE IV Last administered on 09/14/19at 19:10; Start 09/14/19 at 18:00; Stop 09/14/19 at 19:00; Status DC Multivitamins 10 ml/Thiamine HCl 100 mg/Folic Acid 1 mg/Sodium Chloride 1,011.2 ml @ 100 mls/ hr DAILY IV Last administered on 09/18/19at 09:37; Start 09/14/19 at 18:30; Stop 09/18/19 at 19:07; Status DC Lorazepam (Ativan Inj) 2 mg PRN Q1HR PRN IV For CIWA 8-14 Last administered on 09/28/19at 15:42; Start 09/14/19 at 18:30 Lorazepam (Ativan Inj) 4 mg PRN Q1HR PRN IV For CIWA 15 or greater Last administered on 09/28/19at 23:26; Start 09/14/19 at 18:30 Pantoprazole Sodium 80 mg/ Sodium Chloride 100 ml @ 10 mls/hr 1X ONCE IV Last administered on 09/14/19at 18:44; Start 09/14/19 at 18:30; Stop 09/15/19 at 04:29; Status DC Iohexol (Omnipaque 300 Mg/ml) 75 ml 1X ONCE IV ; Start 09/14/19 at 19:00; Stop 09/14/19 at 19:01; Status DC Info (CONTRAST GIVEN -- Rx MONITORING) 1 each PRN DAILY PRN MC SEE COMMENTS; Start 09/14/19 at 19:00; Stop 09/16/19 at 18:59; Status DC Ondansetron HCl (Zofran) 4 mg PRN Q8HRS PRN IV NAUSEA/VOMITING; Start 09/14/19 at 19:30; Stop 09/15/19 at 19:29; Status DC Sodium Chloride 1,000 ml @ 125 mls/hr Q8H IV Last administered on 09/15/19at 15:39; Start 09/14/19 at 19:19; Stop 09/15/19 at 19:18; Status DC Etomidate (Amidate) 20 mg STK-MED ONCE IV ; Start 09/14/19 at 21:22; Stop 09/14/19 at 21:22; Status DC Lidocaine HCl (Lidocaine Pf 2% Vial) 5 ml STK-MED ONCE .ROUTE ; Start 09/14/19 at 21:22; Stop 09/14/19 at 21:22; Status DC Rocuronium Dudley (Zemuron) 50 mg STK-MED ONCE .ROUTE ; Start 09/14/19 at 21:23; Stop 09/14/19 at 21:23; Status DC Phenylephrine HCl (PHENYLEPHRINE in 0.9% NACL PF) 1 mg STK-MED ONCE IV ; Start 09/14/19 at 21:24; Stop 09/14/19 at 21:24; Status DC Propofol 100 ml @ 0 mls/hr CONT PRN IV SEE PROTOCOL Last administered on 09/24/19at 09:12; Start 09/14/19 at 22:30; Stop 09/28/19 at 15:28; Status DC Fentanyl Citrate (Fentanyl 2ml Vial) 25 mcg PRN Q1HR PRN IV SEE COMMENTS; Start 09/14/19 at 22:30; Stop 09/15/19 at 06:26; Status DC Fentanyl Citrate (Fentanyl 2ml Vial) 50 mcg PRN Q1HR PRN IV SEE COMMENTS; Start 09/14/19 at 22:30; Stop 09/15/19 at 06:26; Status DC Epinephrine HCl (EPINEPHrine SYRINGE) 1 mg STK-MED ONCE .ROUTE ; Start 09/14/19 at 23:19; Stop 09/14/19 at 23:20; Status DC Pantoprazole Sodium (PROTONIX VIAL for IV PUSH) 40 mg BID IVP Last administered on 09/27/19at 08:15; Start 09/15/19 at 09:00; Stop 09/27/19 at 12:35; Status DC Epinephrine HCl (EPINEPHrine SYRINGE) 1 mg STK-MED ONCE IV Last administered on 09/14/19at 23:00; Start 09/14/19 at 23:00; Stop 09/14/19 at 23:29; Status DC Fentanyl Citrate 30 ml @ 0 mls/hr CONT PRN IV SEE PROTOCOL Last administered on 09/16/19at 20:58; Start 09/14/19 at 23:45; Stop 09/17/19 at 16:28; Status DC Midazolam HCl 50 mg/Sodium Chloride 50 ml @ 0 mls/hr CONT PRN IV SEE PROTOCOL Last administered on 09/15/19at 22:10; Start 09/14/19 at 23:45; Stop 09/17/19 at 16:28; Status DC Sodium Bicarbonate (Sodium Bicarb Adult 8.4% Syr) 50 meq 1X ONCE IV Last administered on 09/15/19at 01:25; Start 09/15/19 at 01:00; Stop 09/15/19 at 01:01; Status DC Sodium Chloride 1,000 ml @ 50 mls/hr Q20H IV Last administered on 09/27/19at 23:39; Start 09/16/19 at 02:00; Stop 09/28/19 at 14:58; Status DC Dexmedetomidine HCl 400 mcg/ Sodium Chloride 100 ml @ 0 mls/hr CONT PRN IV AGITATION Last administered on 09/28/19at 04:57; Start 09/16/19 at 08:30; Stop 09/28/19 at 08:55; Status DC Sodium Chloride 500 ml @ 500 mls/hr 1X PRN PRN IV HYPOTENTION; Start 09/16/19 at 08:30 Atropine Sulfate (ATROPINE 0.5mg SYRINGE) 0.5 mg PRN Q5MIN PRN IV SEE COMMENTS; Start 09/16/19 at 08:30; Stop 09/28/19 at 09:42; Status DC Amino Acids/ Glycerin/ Electrolytes 1,000 ml @ 80 mls/hr [id number] IV ; Start at 10:00; Status UNV Ceftriaxone Sodium (Rocephin) 1 gm Q24H IVP Last administered on 09/20/19at 11:24; Start 09/16/19 at 11:00; Stop 09/21/19 at 10:45; Status DC Amino Acids/ Electrolytes/ Dextrose 1,000 ml @ 80 mls/hr [id number] IV Last administered on 09/23/19at 04:45; Start 09/16/19 at 10:15; Stop 09/23/19 at 09:35; Status DC Magnesium Sulfate/ Dextrose 100 ml @ 100 mls/hr 1X ONCE IV Last administered on 09/16/19at 12:10; Start 09/16/19 at 11:45; Stop 09/16/19 at 12:44; Status DC Potassium Chloride/Water 100 ml @ 100 mls/hr Q1H IV ; Start 09/16/19 at 14:15; Stop 09/16/19 at 14:16; Status DC Potassium Chloride/Water 100 ml @ 100 mls/hr Q1H IV ; Start 09/16/19 at 14:15; Stop 09/16/19 at 14:17; Status DC Magnesium Sulfate 100 ml @ 50 mls/hr DAILY IV Last administered on 09/19/19at 09:10; Start 09/17/19 at 09:00; Stop 09/20/19 at 08:59; Status DC Sodium Phosphate 15 mmol/Sodium Chloride 255 ml @ 62.5 mls/hr PRN 1X PRN IV SEE COMMENTS; Start 09/16/19 at 14:15 Sodium Phosphate 15 mmol/Sodium Chloride 255 ml @ 62.5 mls/hr PRN 1X PRN IV SEE COMMENTS; Start 09/16/19 at 14:15 Potassium Chloride/Water 100 ml @ 100 mls/hr PRN Q1HR PRN IV SEE COMMENTS; Start 09/16/19 at 14:30 Potassium Chloride/Water 100 ml @ 100 mls/hr PRN Q1HR PRN IV SEE COMMENTS; Start 09/16/19 at 14:30 Levetiracetam 500 mg/Dextrose 105 ml @ 420 mls/hr Q12HR IV Last administered on 09/19/19at 10:19; Start 09/16/19 at 21:00; Stop 09/19/19 at 13:06; Status DC Hydralazine HCl (Apresoline Inj) 10 mg PRN Q4HRS PRN IVP ELEVATED BP, SEE COMMENTS Last administered on 09/19/19at 09:09; Start 09/16/19 at 18:00; Stop 09/19/19 at 09:49; Status DC Magnesium Sulfate/ Dextrose 100 ml @ 100 mls/hr 1X ONCE IV ; Start 09/17/19 at 12:45; Stop 09/17/19 at 13:03; Status DC Albuterol Sulfate (Ventolin Neb Soln) 2.5 mg PRN Q6HRS PRN NEB SHORTNESS OF BREATH Last administered on 09/20/19at 17:27; Start 09/17/19 at 15:45 Budesonide (Pulmicort) 0.5 mg RTBID NEB Last administered on 09/29/19at 07:53; Start 09/17/19 at 20:00 Albuterol Sulfate (Ventolin Neb Soln) 2.5 mg Q6HRS NEB Last administered on 09/29/19at 07:54; Start 09/17/19 at 18:00 Fentanyl Citrate (Fentanyl 2ml Vial) 25 mcg PRN Q3HRS PRN IVP PAIN Last administered on 09/20/19at 08:44; Start 09/17/19 at 17:00 Hydralazine HCl (Apresoline Inj) 10 mg 1X ONCE IVP Last administered on 09/18/19at 12:18; Start 09/18/19 at 12:15; Stop 09/18/19 at 12:16; Status DC Hydralazine HCl (Apresoline Inj) 20 mg PRN Q4HRS PRN IVP ELEVATED BP, SEE COMMENTS Last administered on 09/28/19at 13:39; Start 09/18/19 at 12:15 Potassium Chloride/Water 100 ml @ 100 mls/hr Q1H IV Last administered on 09/19/19at 13:26; Start 09/19/19 at 11:00; Stop 09/19/19 at 12:59; Status DC Haloperidol Lactate (Haldol Inj) 2 mg PRN Q6HRS PRN IVP AGITATION Last administered on 09/29/19at 02:07; Start 09/19/19 at 15:00 Fentanyl Citrate 30 ml @ 0 mls/hr CONT PRN IV SEE PROTOCOL Last administered on 09/24/19at 06:37; Start 09/20/19 at 08:45; Stop 09/28/19 at 15:28; Status DC Midazolam HCl 50 mg/Sodium Chloride 50 ml @ 0 mls/hr CONT PRN IV SEE PROTOCOL Last administered on 09/24/19at 06:03; Start 09/20/19 at 08:45; Stop 09/28/19 at 15:29; Status DC Thiamine HCl 100 mg/Dextrose 51 ml @ 102 mls/hr DAILY IV Last administered on 09/28/19at 08:50; Start 09/20/19 at 16:00; Stop 09/28/19 at 11:16; Status DC Piperacillin Sod/ Tazobactam Sod (Zosyn Per Pharmacy) 1 each PRN DAILY PRN MC SEE COMMENTS; Start 09/21/19 at 10:45 Piperacillin Sod/ Tazobactam Sod 3.375 gm/Sodium Chloride 50 ml @ 100 mls/hr Q6HRS IV Last administered on 09/29/19at 06:10; Start 09/21/19 at 12:00 Alteplase, Recombinant (Cathflo For Central Catheter Clearance) 1 mg 1X ONCE INT CAT Last administered on 09/22/19at 02:16; Start 09/22/19 at 02:30; Stop 09/22/19 at 02:31; Status DC Alteplase, Recombinant (Cathflo For Central Catheter Clearance) 1 mg 1X ONCE INT CAT Last administered on 09/22/19at 03:43; Start 09/22/19 at 03:30; Stop 09/22/19 at 03:32; Status DC Polyethylene Glycol (miraLAX PACKET) 17 gm PRN DAILY PRN FT CONSTIPATION; Start 09/22/19 at 08:45; Stop 09/27/19 at 12:35; Status DC Enalaprilat (Vasotec Inj) 1.25 mg PRN Q6HRS PRN IVP HYPERTENSION Last administered on 09/26/19at 11:31; Start 09/26/19 at 05:45 Lorazepam (Ativan) 8 mg PRN Q1HR PRN PO For CIWA 15 or greater; Start 09/26/19 at 13:15 Lorazepam (Ativan Inj) 6 mg PRN Q1HR PRN IV For CIWA 15 or greater Last administered on 09/26/19at 13:31; Start 09/26/19 at 13:15 Diphenhydramine HCl (Benadryl) 25 mg PRN Q15MIN PRN IVP EPS symptoms 2'Haldol admin Last administered on 09/26/19at 13:32; Start 09/26/19 at 13:15 Pantoprazole Sodium (Protonix) 40 mg DAILYAC PO Last administered on 09/28/19at 08:18; Start 09/28/19 at 07:30 Polyethylene Glycol (miraLAX PACKET) 17 gm DAILY PO Last administered on 09/27/19at 13:00; Start 09/27/19 at 13:00 Polyethylene Glycol (miraLAX PACKET) 17 gm PRN DAILY PRN PO CONSTIPATION; Start 09/27/19 at 12:45 Lorazepam (Ativan) 2 mg QID PO Last administered on 09/28/19at 20:23; Start 09/28/19 at 09:00 Lactobacillus Rhamnosus (Culturelle) 1 cap BID PO Last administered on 09/28/19at 20:24; Start 09/28/19 at 21:00 Amlodipine Besylate (Norvasc) 5 mg DAILY PO Last administered on 09/28/19at 15:02; Start 09/28/19 at 15:00 Diphenhydramine HCl (Benadryl) 50 mg PRN QHS PRN PO INSOMNIA Last administered on 09/28/19at 21:21; Start 09/28/19 at 21:15 Active Scripts Active Protonix (Pantoprazole Sodium) 40 Mg Tablet.dr 40 Mg PO DAILYAC PRN 30 Days Reported Amlodipine Besylate 5 Mg Tablet 5 Mg PO DAILY Proair Hfa Inhaler (Albuterol Sulfate) 8.5 Gm Hfa.aer.ad 1 Puff INH PRN Q4HRS PRN Symbicort 160-4.5 Mcg Inhaler (Budesonide/Formoterol Fumarate) 10.2 Gm Hfa.aer.ad 2 Puff IH BID Theophylline (Theophylline Anhydrous) 400 Mg Tablet.er 300 Mg PO BID Vitals/I & O Vital Sign - Last 24 Hours 09/28/19 09/28/19 09/28/19 09/28/19 09:04 10:25 10:59 12:12 Temp 98.3 98.3 Pulse 108 69 84 Resp 16 B/P (MAP) 151/84 (106) 171/83 (112) 148/82 (104) Pulse Ox 91 96 97 97 O2 Delivery Room Air Room Air Room Air 09/28/19 09/28/19 09/28/19 09/28/19 12:16 12:18 13:04 13:39 Pulse 89 113 98 B/P (MAP) 162/100 (120) 177/100 (125) 178/92 Pulse Ox 93 95 O2 Delivery Room Air Room Air 09/28/19 09/28/19 09/28/19 09/28/19 13:44 15:02 15:04 15:47 Temp 98.0 97.6 98.0 97.6 Pulse 101 106 100 83 Resp 18 20 B/P (MAP) 154/95 (114) 178/102 178/102 (127) 166/120 (135) Pulse Ox 96 98 O2 Delivery Room Air Room Air Room Air 09/28/19 09/28/19 09/28/19 09/28/19 19:00 19:41 20:40 22:15 Temp 98.2 98.2 Pulse 85 Resp 20 B/P (MAP) 164/96 (118) Pulse Ox 95 98 O2 Delivery Room Air Room Air Room Air 09/28/19 09/29/19 09/29/19 09/29/19 23:35 02:46 03:28 07:54 Temp 98.2 98.2 Pulse 80 Resp 18 24 B/P (MAP) 169/99 (122) Pulse Ox 97 95 O2 Delivery Room Air Room Air Room Air Room Air Intake and Output 09/28/19 09/28/19 09/29/19 15:00 23:00 07:00 Intake Total 1091.6 ml 581.68 ml 240 ml Output Total 655 ml 700 ml Balance 436.6 ml 581.68 ml -460 ml JUANCARLOS CULP MD Sep 29, 2019 08:52
--- NOTE | 2019-09-29 09:20 | NUR ---
SW following. Discussed with RN, pt is from home with spouse. PAT team coming to see pt due to drinking. Per RN, Neuro has give pt the okay to discharge, awaiting confirmation from other consults for pt to discharge home today. SW will continue to follow.
--- NOTE | 2019-09-29 09:25 | PDOC ---
Subjective: Subjective: Shaking sometimes, has hiccups. Wants to know if he can have Ativan to take home. Eating okay. Objective: Vital Signs: Vital Signs Date Time Temp Pulse Resp B/P (MAP) Pulse Ox O2 Delivery O2 Flow Rate FiO2 09/29/19 07:54 Room Air 09/29/19 07:00 98.5 78 18 162/96 (118) 94 98.5 PE: GEN: hiccups LUNGS: CTAB HEART: RRR ABD: BS+, soft, non-tender NEURO/PSYCH: A & O 3 A/P: Alcohol abuse, recurrent admissions. Erosive esophagitis, DU - s/p endotherapy 09/15/19 -- DC per primary. PPI, no NSAIDs, no alcohol. Hemodynamically unstable?: No Is patient in severe pain?: No Is NPO status required?: No MESSI GORE Sep 29, 2019 09:25
[2019-09-29] MEDS ORDERED: BISACODYL 5 MG TABLET.DR. PO PRN (09:30)
[2019-09-29] MEDS: LORazepam 1 MG TABLET PO SCH ×4 (09:51→20:52)
[2019-09-29] MEDS: PANTOPRAZOLE 40 MG TABLET.DR. PO SCH (09:51)
[2019-09-29] MEDS: LACTOBACILLUS RHAMNOSUS GG 1 CAPSULE. PO SCH ×2 (09:52→20:52)
[2019-09-29] MEDS: amLODIPine BESYLATE 5 MG TABLET PO SCH (09:57)
[2019-09-29] MEDS: POLYETHYLENE GLYCOL 3350 17 GM PACKET. PO SCH (09:57)
--- NOTE | 2019-09-29 10:40 | PDOC ---
PROGRESS NOTES Chief Complaint Chief Complaint impression 0. Resolving respiratory failure (was intubated now extubated for 3 days) 1. acute UGI BLEED 2. severe diffuse hepatic steatosis. 3. Erosive esophagitis, epinephrine injection duodenal ulcer in the first and second portions of duodenum with a visible vessel, status post epinephrine injection. 4. polysubstance abuse, alcohol cocaine and marijuana 5. Electrolyte imbalance 6. Malignant hypertension 7. mild generalized parenchymal atrophy. No acute parenchymal abnormality is seen. No extra-axial fluid collection is noted. No skull fracture is seen. BY CT HEAD 09/13 8. GENERALIZED WEAKNESS 9. 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 11. Seizure or seizure like episodes, alcohol/withdrawal related. PLAN CBC, COMP TODAY TELE BED PT/OT ATTEND AA DAILY POOR PROGNOSIS DUE TO POLYSUBSTANCE ABUSE Treatment Plan * Therapeutic Exercise * Dynamic Balance Training Frequency of Treatment Expected * 7 visits/week Duration of Treatment Expected * 2 weeks History of Present Illness History of Present Illness [id number] Patient seen and examined Chart reviewed Discussed with RN CONFUSED AND SHAKING AT TIMES PT/OT SEEING [id number] Patient seen and examined in the ICU He is starting to wake up more for the past 48 hours but is still very shaky States he is going to quit drinking when he gets home, although he has told me that in the past Discussed with case management Discussed with RN Chart reviewed [id number] Patient seen and examined He is now extubated Extremely weak and tremulous Chart reviewed Discussed with RN Seems that he needs high-dose benzodiazepines [id number] Patient seen and examined in the ICU He remains on the vent assist control 16/500/40% Eyes are open but he doesn't seem to recognize me Chart reviewed Discussed with RN Still critically ill [id number] Patient seen and examined in the ICU He remains mechanically ventilated with an OG feeds running at 55 mL/h Vent settings as follows assist-control/10/500/40% with 5 of PEEP Chart reviewed Discussed with RN He is critically ill [id number] Patient seen and examined in the ICU He remains critically ill On mechanical ventilation with assist control/16/500/40% Sedated with propofol and fentanyl Has PPN and OG feeds running Chart reviewed Discussed with RN [id number] Patient seen and examined in the ICU once again He remains intubated and on assist-control/16/500/40% with 5 of PEEP Sedated with Precedex Getting TPN and albumin Also on Versed levo fed He is critically ill Discussed with RN Chart reviewed [id number] Patient seen and examined in the ICU He is intubated Assist-control/16/500/60% FiO2 Chart reviewed Discussed with RN Vitals Vitals Vital Signs Date Time Temp Pulse Resp B/P (MAP) Pulse Ox O2 Delivery O2 Flow Rate FiO2 09/29/19 09:57 78 162/96 09/29/19 08:00 Room Air 09/29/19 07:00 98.5 18 94 98.5 Physical Exam General: Alert, Cooperative, No acute distress, Other (intermittently confused shaking) Heart: Regular rate, Normal S1, Normal S2 Lungs: Other (rhonchi) Abdomen: Normal bowel sounds, Soft, No tenderness Extremities: No cyanosis, No edema Skin: No rashes Labs LABS CT scan of the head without contrast 09/14/2019 Clinical History: Tremors. Technique: Unenhanced, contiguous, 5 mm axial sections were obtained through the head. One or more of the following individualized dose reduction techniques were utilized for this study: 1. Automated exposure control. 2. Adjustment of the mA and/or kV according to patient size. 3. Use of iterative reconstruction technique. Findings: Comparison study is dated 06/18/2019. Images are degraded by patient motion. There is mild generalized parenchymal atrophy. No acute parenchymal abnormality is seen. No extra-axial fluid collection is noted. No skull fracture is seen. Impression: No acute intracranial abnormality is seen. Electronically signed by: Gino Long MD (09/14/2019 7:53 PM) [id number] Assessment and Plan Assessmemt and Plan O.T. Visit Type * Pt Declined Attempted Visit Details * pt declined all activity d/t fatigue, will f/u later this date or 09/29 Relevant History * GI Bleed Hx: DVT's, alcohol, metabolic encephalopathy, CAD, HTN, pacreatitis, seizures, tremors, ETOH withdrawal, Asthma, DDD, pancreatitis, heavy ETOH use; marijuana OT Care Provider * Tiffanie Jiménez OTR/L Communicated Patient Care With (Name, Title) * TRACEY Cotto, Leticia, PT Problems Medical Problems: (1) GI bleed Status: Acute Transfer Type * Sit to Stand Transfer Assistive Device * No Device Ambulation Assistance Required * Supervision Ambulation Assistive Device * No Device Ambulation Distance * 250 ft x 2 Gait Impairments * Ataxic Ambulation Comments * several minor losses of balance, self correcting Stairs Assistance Required * Contact Guard Assist Number of Stairs * >9 Stairs Assistive Device * Rail on Right * Rail on Left Learning Preferences * One-on-One Instruction * Demonstration Problem List (body system elements) * Impaired fnctnl mobility * Balance * Coordination Goal 1 - Bed Mobility Assistance Required * Independent Goal 1 Assessment * Appropriate - Continue Goal 2 - Transfers Assistance Required * Independent Goal 2 - Transfer Type * Stand-Step Goal 2 Assessment * Appropriate - Continue Goal 3 - Ambulation Assistance Required * Independent Goal 3 - Ambulation Distance * 250' Goal 3 - Ambulation Device * No Device Goal 4 - Stairs Assistance Required * Independent Goal 4 - Number of Stairs * 2-4 Goal 4 - Device on Stairs * Rail on Right Treatment Plan * Therapeutic Exercise * Dynamic Balance Training Frequency of Treatment Expected * 7 visits/week Duration of Treatment Expected * 2 weeks Discharge Recommendation Comments * possibly will be ready to go home in a couple of days Comment Review of Relevant I have reviewed the following items wali (where applicable) has been applied. Medications Current Medications Ondansetron HCl (Zofran) 4 mg STK-MED ONCE .ROUTE ; Start 09/14/19 at 17:54; Stop 09/14/19 at 17:54; Status DC Lorazepam (Ativan Inj) 2 mg STK-MED ONCE .ROUTE ; Start 09/14/19 at 17:55; Stop 09/14/19 at 17:55; Status DC Lorazepam (Ativan Inj) 2 mg 1X ONCE IVP Last administered on 09/14/19at 18:05; Start 09/14/19 at 18:00; Stop 09/14/19 at 18:09; Status DC Ondansetron HCl (Zofran) 4 mg 1X ONCE IVP Last administered on 09/14/19at 18:04; Start 09/14/19 at 18:00; Stop 09/14/19 at 18:09; Status DC Pantoprazole Sodium (PROTONIX VIAL for IV PUSH) 40 mg 1X ONCE IVP Last administered on 09/14/19at 18:43; Start 09/14/19 at 18:00; Stop 09/14/19 at 18:09; Status DC Sodium Chloride 1,000 ml @ 1,000 mls/hr 1X ONCE IV Last administered on 09/14/19at 19:10; Start 09/14/19 at 18:00; Stop 09/14/19 at 19:00; Status DC Multivitamins 10 ml/Thiamine HCl 100 mg/Folic Acid 1 mg/Sodium Chloride 1,011.2 ml @ 100 mls/ hr DAILY IV Last administered on 09/18/19at 09:37; Start 09/14/19 at 18:30; Stop 09/18/19 at 19:07; Status DC Lorazepam (Ativan Inj) 2 mg PRN Q1HR PRN IV For CIWA 8-14 Last administered on 09/28/19at 15:42; Start 09/14/19 at 18:30 Lorazepam (Ativan Inj) 4 mg PRN Q1HR PRN IV For CIWA 15 or greater Last administered on 09/28/19at 23:26; Start 09/14/19 at 18:30 Pantoprazole Sodium 80 mg/ Sodium Chloride 100 ml @ 10 mls/hr 1X ONCE IV Last administered on 09/14/19at 18:44; Start 09/14/19 at 18:30; Stop 09/15/19 at 04:29; Status DC Iohexol (Omnipaque 300 Mg/ml) 75 ml 1X ONCE IV ; Start 09/14/19 at 19:00; Stop 09/14/19 at 19:01; Status DC Info (CONTRAST GIVEN -- Rx MONITORING) 1 each PRN DAILY PRN MC SEE COMMENTS; Start 09/14/19 at 19:00; Stop 09/16/19 at 18:59; Status DC Ondansetron HCl (Zofran) 4 mg PRN Q8HRS PRN IV NAUSEA/VOMITING; Start 09/14/19 at 19:30; Stop 09/15/19 at 19:29; Status DC Sodium Chloride 1,000 ml @ 125 mls/hr Q8H IV Last administered on 09/15/19at 15:39; Start 09/14/19 at 19:19; Stop 09/15/19 at 19:18; Status DC Etomidate (Amidate) 20 mg STK-MED ONCE IV ; Start 09/14/19 at 21:22; Stop 09/14/19 at 21:22; Status DC Lidocaine HCl (Lidocaine Pf 2% Vial) 5 ml STK-MED ONCE .ROUTE ; Start 09/14/19 at 21:22; Stop 09/14/19 at 21:22; Status DC Rocuronium [place] (Zemuron) 50 mg STK-MED ONCE .ROUTE ; Start 09/14/19 at 21:23; Stop 09/14/19 at 21:23; Status DC Phenylephrine HCl (PHENYLEPHRINE in 0.9% NACL PF) 1 mg STK-MED ONCE IV ; Start 09/14/19 at 21:24; Stop 09/14/19 at 21:24; Status DC Propofol 100 ml @ 0 mls/hr CONT PRN IV SEE PROTOCOL Last administered on 09/24/19at 09:12; Start 09/14/19 at 22:30; Stop 09/28/19 at 15:28; Status DC Fentanyl Citrate (Fentanyl 2ml Vial) 25 mcg PRN Q1HR PRN IV SEE COMMENTS; Start 09/14/19 at 22:30; Stop 09/15/19 at 06:26; Status DC Fentanyl Citrate (Fentanyl 2ml Vial) 50 mcg PRN Q1HR PRN IV SEE COMMENTS; Start 09/14/19 at 22:30; Stop 09/15/19 at 06:26; Status DC Epinephrine HCl (EPINEPHrine SYRINGE) 1 mg STK-MED ONCE .ROUTE ; Start 09/14/19 at 23:19; Stop 09/14/19 at 23:20; Status DC Pantoprazole Sodium (PROTONIX VIAL for IV PUSH) 40 mg BID IVP Last administered on 09/27/19at 08:15; Start 09/15/19 at 09:00; Stop 09/27/19 at 12:35; Status DC Epinephrine HCl (EPINEPHrine SYRINGE) 1 mg STK-MED ONCE IV Last administered on 09/14/19at 23:00; Start 09/14/19 at 23:00; Stop 09/14/19 at 23:29; Status DC Fentanyl Citrate 30 ml @ 0 mls/hr CONT PRN IV SEE PROTOCOL Last administered on 09/16/19at 20:58; Start 09/14/19 at 23:45; Stop 09/17/19 at 16:28; Status DC Midazolam HCl 50 mg/Sodium Chloride 50 ml @ 0 mls/hr CONT PRN IV SEE PROTOCOL Last administered on 09/15/19at 22:10; Start 09/14/19 at 23:45; Stop 09/17/19 at 16:28; Status DC Sodium Bicarbonate (Sodium Bicarb Adult 8.4% Syr) 50 meq 1X ONCE IV Last administered on 09/15/19at 01:25; Start 09/15/19 at 01:00; Stop 09/15/19 at 01:01; Status DC Sodium Chloride 1,000 ml @ 50 mls/hr Q20H IV Last administered on 09/27/19at 23:39; Start 09/16/19 at 02:00; Stop 09/28/19 at 14:58; Status DC Dexmedetomidine HCl 400 mcg/ Sodium Chloride 100 ml @ 0 mls/hr CONT PRN IV AGITATION Last administered on 09/28/19at 04:57; Start 09/16/19 at 08:30; Stop 09/28/19 at 08:55; Status DC Sodium Chloride 500 ml @ 500 mls/hr 1X PRN PRN IV HYPOTENTION; Start 09/16/19 at 08:30 Atropine Sulfate (ATROPINE 0.5mg SYRINGE) 0.5 mg PRN Q5MIN PRN IV SEE COMMENTS; Start 09/16/19 at 08:30; Stop 09/28/19 at 09:42; Status DC Amino Acids/ Glycerin/ Electrolytes 1,000 ml @ 80 mls/hr [id number] IV ; Start 09/16/19 at 10:00; Status UNV Ceftriaxone Sodium (Rocephin) 1 gm Q24H IVP Last administered on 09/20/19at 11:24; Start 09/16/19 at 11:00; Stop 09/21/19 at 10:45; Status DC Amino Acids/ Electrolytes/ Dextrose 1,000 ml @ 80 mls/hr [id number] IV Last administered on 09/23/19at 04:45; Start 09/16/19 at 10:15; Stop 09/23/19 at 09:35; Status DC Magnesium Sulfate/ Dextrose 100 ml @ 100 mls/hr 1X ONCE IV Last administered on 09/16/19at 12:10; Start 09/16/19 at 11:45; Stop 09/16/19 at 12:44; Status DC Potassium Chloride/Water 100 ml @ 100 mls/hr Q1H IV ; Start 09/16/19 at 14:15; Stop 09/16/19 at 14:16; Status DC Potassium Chloride/Water 100 ml @ 100 mls/hr Q1H IV ; Start 09/16/19 at 14:15; Stop 09/16/19 at 14:17; Status DC Magnesium Sulfate 100 ml @ 50 mls/hr DAILY IV Last administered on 09/19/19at 09:10; Start 09/17/19 at 09:00; Stop 09/20/19 at 08:59; Status DC Sodium Phosphate 15 mmol/Sodium Chloride 255 ml @ 62.5 mls/hr PRN 1X PRN IV SEE COMMENTS; Start 09/16/19 at 14:15 Sodium Phosphate 15 mmol/Sodium Chloride 255 ml @ 62.5 mls/hr PRN 1X PRN IV SEE COMMENTS; Start 09/16/19 at 14:15 Potassium Chloride/Water 100 ml @ 100 mls/hr PRN Q1HR PRN IV SEE COMMENTS; Start 09/16/19 at 14:30 Potassium Chloride/Water 100 ml @ 100 mls/hr PRN Q1HR PRN IV SEE COMMENTS; Start 09/16/19 at 14:30 Levetiracetam 500 mg/Dextrose 105 ml @ 420 mls/hr Q12HR IV Last administered on 09/19/19at 10:19; Start 09/16/19 at 21:00; Stop 09/19/19 at 13:06; Status DC Hydralazine HCl (Apresoline Inj) 10 mg PRN Q4HRS PRN IVP ELEVATED BP, SEE COMMENTS Last administered on 09/19/19at 09:09; Start 09/16/19 at 18:00; Stop 09/19/19 at 09:49; Status DC Magnesium Sulfate/ Dextrose 100 ml @ 100 mls/hr 1X ONCE IV ; Start 09/17/19 at 12:45; Stop 09/17/19 at 13:03; Status DC Albuterol Sulfate (Ventolin Neb Soln) 2.5 mg PRN Q6HRS PRN NEB SHORTNESS OF BREATH Last administered on 09/20/19at 17:27; Start 09/17/19 at 15:45 Budesonide (Pulmicort) 0.5 mg RTBID NEB Last administered on 09/29/19at 07:53; Start 09/17/19 at 20:00 Albuterol Sulfate (Ventolin Neb Soln) 2.5 mg Q6HRS NEB Last administered on 09/29/19at 07:54; Start 09/17/19 at 18:00 Fentanyl Citrate (Fentanyl 2ml Vial) 25 mcg PRN Q3HRS PRN IVP PAIN Last admi nistered on 09/20/19at 08:44; Start 09/17/19 at 17:00 Hydralazine HCl (Apresoline Inj) 10 mg 1X ONCE IVP Last administered on 09/17at 12:18; Start 09/18/19 at 12:15; Stop 09/18/19 at 12:16; Status DC Hydralazine HCl (Apresoline Inj) 20 mg PRN Q4HRS PRN IVP ELEVATED BP, SEE COMMENTS Last administered on 09/28/19at 13:39; Start 09/18/19 at 12:15 Potassium Chloride/Water 100 ml @ 100 mls/hr Q1H IV Last administered on 09/19/19at 13:26; Start 09/19/19 at 11:00; Stop 09/19/19 at 12:59; Status DC Haloperidol Lactate (Haldol Inj) 2 mg PRN Q6HRS PRN IVP AGITATION Last administered on 09/29/19at 02:07; Start 09/19/19 at 15:00 Fentanyl Citrate 30 ml @ 0 mls/hr CONT PRN IV SEE PROTOCOL Last administered on 09/24/19at 06:37; Start 09/20/19 at 08:45; Stop 09/28/19 at 15:28; Status DC Midazolam HCl 50 mg/Sodium Chloride 50 ml @ 0 mls/hr CONT PRN IV SEE PROTOCOL Last administered on 09/24/19at 06:03; Start 09/20/19 at 08:45; Stop 09/28/19 at 15:29; Status DC Thiamine HCl 100 mg/Dextrose 51 ml @ 102 mls/hr DAILY IV Last administered on 09/28/19at 08:50; Start 09/20/19 at 16:00; Stop 09/28/19 at 11:16; Status DC Piperacillin Sod/ Tazobactam Sod (Zosyn Per Pharmacy) 1 each PRN DAILY PRN MC SEE COMMENTS; Start 09/21/19 at 10:45 Piperacillin Sod/ Tazobactam Sod 3.375 gm/Sodium Chloride 50 ml @ 100 mls/hr Q6HRS IV Last administered on 09/29/19at 06:10; Start 09/21/19 at 12:00 Alteplase, Recombinant (Cathflo For Central Catheter Clearance) 1 mg 1X ONCE INT CAT Last administered on 09/22/19at 02:16; Start 09/22/19 at 02:30; Stop 09/22/19 at 02:31; Status DC Alteplase, Recombinant (Cathflo For Central Catheter Clearance) 1 mg 1X ONCE INT CAT Last administered on 09/22/19at 03:43; Start 09/22/19 at 03:30; Stop 09/22/19 at 03:32; Status DC Polyethylene Glycol (miraLAX PACKET) 17 gm PRN DAILY PRN FT CONSTIPATION; Start 09/22/19 at 08:45; Stop 09/27/19 at 12:35; Status DC Enalaprilat (Vasotec Inj) 1.25 mg PRN Q6HRS PRN IVP HYPERTENSION Last administered on 09/26/19at 11:31; Start 09/26/19 at 05:45 Lorazepam (Ativan) 8 mg PRN Q1HR PRN PO For CIWA 15 or greater; Start 09/26/19 at 13:15 Lorazepam (Ativan Inj) 6 mg PRN Q1HR PRN IV For CIWA 15 or greater Last admi nistered on 09/26/19at 13:31; Start 09/26/19 at 13:15 Diphenhydramine HCl (Benadryl) 25 mg PRN Q15MIN PRN IVP EPS symptoms 2'Haldol admin Last administered on 09/26/19at 13:32; Start 09/26/19 at 13:15 Pantoprazole Sodium (Protonix) 40 mg DAILYAC PO Last administered on 09/29/19at 09:51; Start 09/28/19 at 07:30 Polyethylene Glycol (miraLAX PACKET) 17 gm DAILY PO Last administered on 09/29/19at 09:57; Start 09/27/19 at 13:00 Polyethylene Glycol (miraLAX PACKET) 17 gm PRN DAILY PRN PO CONSTIPATION; Start 09/27/19 at 12:45 Lorazepam (Ativan) 2 mg QID PO Last administered on 09/29/19 09:51; Start 09/28/19 at 09:00 Lactobacillus Rhamnosus (Culturelle) 1 cap BID PO Last administered on 3/18/20at 09:52; Start 09/28/19 at 21:00 Amlodipine Besylate (Norvasc) 5 mg DAILY PO Last administered on 09/29/19at 09:57; Start 09/28/19 at 15:00 Diphenhydramine HCl (Benadryl) 50 mg PRN QHS PRN PO INSOMNIA Last administered on 09/28/19at 21:21; Start 09/28/19 at 21:15 Bisacodyl (Dulcolax Tab) 10 mg PRN DAILY PRN PO CONSTIPATION; Start 09/29/19 at 09:30 Active Scripts Active Protonix (Pantoprazole Sodium) 40 Mg Tablet.dr 40 Mg PO DAILYAC PRN 30 Days Reported Amlodipine Besylate 5 Mg Tablet 5 Mg PO DAILY Proair Hfa Inhaler (Albuterol Sulfate) 8.5 Gm Hfa.aer.ad 1 Puff INH PRN Q4HRS PRN Symbicort 160-4.5 Mcg Inhaler (Budesonide/Formoterol Fumarate) 10.2 Gm Hfa.aer.ad 2 Puff IH BID Theophylline (Theophylline Anhydrous) 400 Mg Tablet.er 300 Mg PO BID Vitals/I & O Vital Sign - Last 24 Hours 09/28/19 09/28/19 09/28/19 09/28/19 10:59 12:12 12:16 12:18 Temp 98.3 98.3 Pulse 84 89 Resp 16 B/P (MAP) 148/82 (104) 162/100 (120) Pulse Ox 97 97 93 O2 Delivery Room Air Room Air Room Air 09/28/19 09/28/19 09/28/19 09/28/19 13:04 13:39 13:44 15:02 Pulse 113 98 101 106 B/P (MAP) 177/100 (125) 178/92 154/95 (114) 178/102 Pulse Ox 95 O2 Delivery Room Air Room Air 09/28/19 09/28/19 09/28/19 09/28/19 15:04 15:47 19:00 19:41 Temp 98.0 97.6 98.0 97.6 Pulse 100 83 Resp 18 20 B/P (MAP) 178/102 (127) 166/120 (135) Pulse Ox 96 98 95 O2 Delivery Room Air Room Air Room Air 09/28/19 09/28/19 09/28/19 3/18/20 20:40 22:15 23:35 02:46 Temp 98.2 98.2 98.2 98.2 Pulse 85 80 Resp 20 18 B/P (MAP) 164/96 (118) 169/99 (122) Pulse Ox 98 97 95 O2 Delivery Room Air Room Air Room Air Room Air 09/29/19 09/29/19 09/29/19 09/29/19 03:28 07:00 07:54 08:00 Temp 98.5 98.5 Pulse 78 Resp 24 18 B/P (MAP) 162/96 (118) Pulse Ox 94 O2 Delivery Room Air Room Air Room Air Room Air 09/29/19 09:57 Pulse 78 B/P (MAP) 162/96 Intake and Output 09/28/19 09/28/19 09/29/19 15:00 23:00 07:00 Intake Total 1091.6 ml 581.68 ml 240 ml Output Total 655 ml 700 ml Balance 436.6 ml 581.68 ml -460 ml Hemodynamically unstable?: No Is patient in severe pain?: No Is NPO status required?: No MENDOZA NICOLE MD Sep 29, 2019 10:40
[2019-09-29 11:00] VITALS: BP 156/84
[2019-09-29 12:44] LABS: BASO # 0.4 x10^3/uL (0.0-0.2); BASO % 4 % (0-3); EOS # 0.5 x10^3/uL (0.0-0.7); EOS % 5 % (0-3); HEMATOCRIT 32.6 % (39.0-53.0); HEMOGLOBIN 10.7 g/dL (13.0-17.5); LYMPH # 1.6 x10^3/uL (1.0-4.8); LYMPH % 15 % (24-48); MEAN CORPUSCULAR HEMOGLOBIN 26 pg (25-35); MEAN CORPUSCULAR HGB CONC 33 g/dL (31-37); MEAN CORPUSCULAR VOLUME 79 fL (79-100); MONO # 0.9 x10^3/uL (0.0-1.1); MONO % 9 % (0-9); NEUT # 7.1 x10^3/uL (1.8-7.7); NEUT % 67 % (31-73); PLATELET COUNT 698 x10^3/uL (140-400); RED BLOOD COUNT 4.15 x10^6/uL (4.30-5.70); RED CELL DISTRIBUTION WIDTH 18.5 % (11.5-14.5); WHITE BLOOD COUNT 10.6 x10^3/uL (4.0-11.0)
[2019-09-29 13:01] LABS: ALBUMIN/GLOBULIN RATIO 0.9 (1.0-1.7); CALCIUM 8.9 mg/dL (8.5-10.1); CREATININE 0.9 mg/dL (0.7-1.3); GFR 92.5; POTASSIUM 4.1 mmol/L (3.5-5.1); TOTAL BILIRUBIN 0.3 mg/dL (0.2-1.0); TOTAL PROTEIN 6.4 g/dL (6.4-8.2)
[2019-09-29 13:16] LABS: % BANDS 2 % (0-9); % BASOS 3 % (0-3); % EOS 3 % (0-5); % LYMPHS 15 % (24-48); % MONOS 13 % (0-10); % SEGS 64 % (35-66); PLT ESTIMATE INCREASED (ADEQUATE)
[2019-09-29 13:17] LABS: ANISOCYTOSIS SLIGHT; OVALOCYTES OCC; POLYCHROMASIA SLIGHT; TARGET CELLS OCC; TEAR DROP CELLS OCC; TOXIC GRANULATION SLIGHT
[2019-09-29 15:00] VITALS: BP 147/90
[2019-09-29 19:40] VITALS: BP 157/95
[2019-09-29 23:54] VITALS: BP 140/80
[2019-09-30] MEDS: PIPERACILLIN/TAZOBACTAM 3.375 GM in IV NORMAL SALINE 50ML 50 ML IV SCH ×4 (01:00→17:22)
[2019-09-30 03:47] VITALS: BP 137/77
[2019-09-30 07:47] VITALS: BP 169/99
[2019-09-30] MEDS: ALBUTEROL SULFATE 2.5 MG/3 ML NEBU. NEB SCH ×4 (07:47→20:44)
[2019-09-30] MEDS: BUDESONIDE 0.5 MG/2 ML NEBU. NEB SCH ×2 (07:47→20:44)
[2019-09-30] MEDS: LACTOBACILLUS RHAMNOSUS GG 1 CAPSULE. PO SCH ×2 (08:55→22:03)
[2019-09-30] MEDS: PANTOPRAZOLE 40 MG TABLET.DR. PO SCH (08:55)
[2019-09-30] MEDS: LORazepam 1 MG TABLET PO SCH ×4 (08:55→22:03)
[2019-09-30] MEDS: amLODIPine BESYLATE 5 MG TABLET PO SCH (08:55)
[2019-09-30] MEDS: POLYETHYLENE GLYCOL 3350 17 GM PACKET. PO SCH (08:55)
--- NOTE | 2019-09-30 09:26 | PDOC ---
PROGRESS NOTES Assessment Problems Medical Problems: (1) GI bleed Status: Acute Metabolic encephalopathy. Off Precedex, on scheduled lorazepam Toxic encephalopathy. Respiratory failure, extubated. Alcohol intoxication, alcohol level 111. Korsakoff Syndrome. Seizure or seizure like episodes, alcohol/withdrawal related. Pancreatitis, recurrent. Right C7 radiculopathy per history. CAD. HTN. KIMBERLY. Tremors. Left eye injury s/p surgery in 2014 Hiccups, better Plan Discharge planing Scheduled oral Ativan, also on Zyprexa I suggest slow Ativan taper at home, 2 mg times a day for 1 week, 1 mg 4 times a day for 1 week, 1 mg twice a day for 1 week, 1 mg at bedtime for 1 week, then stop Follow-up with psychiatry Haldol as needed for hiccups Physical therapy Treat medical diseases. Alcohol abstinence. Subjective Feeling better, still tremulous, wants to go home, does not want to resume alcohol, plans to attend Alcoholics Anonymous Objective Vital Signs Date Time Temp Pulse Resp B/P (MAP) Pulse Ox O2 Delivery O2 Flow Rate FiO2 09/30/19 08:55 89 169/99 09/30/19 07:51 95 Room Air 09/30/19 07:47 97.7 18 97.7 Intake and Output 09/30/19 07:00 Intake Total 900 ml Output Total 1600 ml Balance -700 ml Intake Oral 900 ml Output Urine Total 1600 ml PHYSICAL EXAM Alert, knows location, not date Right people reacts, left pupil large, unreactive EOMI. CN: no focal findings. Muscle tone: normal. Muscle strength: slight movement to pain DTR: 1+ Plantar reflex: silent Gait: not examined in bed. Sensory exam: no abnormal findings. No cerebellar signs elicited. Mild tremulousness Review of Relevant I have reviewed the following items wali (where applicable) has been applied. Labs Laboratory Tests Test 09/29/19 12:12 White Blood Count 10.6 x10^3/uL (4.0-11.0) Red Blood Count 4.15 x10^6/uL (4.30-5.70) Hemoglobin 10.7 g/dL (13.0-17.5) Hematocrit 32.6 % (39.0-53.0) Mean Corpuscular Volume 79 fL (79-100) Mean Corpuscular Hemoglobin 26 pg (25-35) Mean Corpuscular Hemoglobin Concent 33 g/dL (31-37) Red Cell Distribution Width 18.5 % (11.5-14.5) Platelet Count 698 x10^3/uL (140-400) Neutrophils (%) (Auto) 67 % (31-73) Lymphocytes (%) (Auto) 15 % (24-48) Monocytes (%) (Auto) 9 % (0-9) Eosinophils (%) (Auto) 5 % (0-3) Basophils (%) (Auto) 4 % (0-3) Neutrophils # (Auto) 7.1 x10^3/uL (1.8-7.7) Lymphocytes # (Auto) 1.6 x10^3/uL (1.0-4.8) Monocytes # (Auto) 0.9 x10^3/uL (0.0-1.1) Eosinophils # (Auto) 0.5 x10^3/uL (0.0-0.7) Basophils # (Auto) 0.4 x10^3/uL (0.0-0.2) Segmented Neutrophils % 64 % (35-66) Band Neutrophils % 2 % (0-9) Lymphocytes % 15 % (24-48) Monocytes % 13 % (0-10) Eosinophils % 3 % (0-5) Basophils % 3 % (0-3) Toxic Granulation Slight Platelet Estimate Increased (ADEQUATE) Polychromasia Slight Anisocytosis Slight Target Cells Occ Tear Drop Cells Occ Ovalocytes Occ Sodium Level 142 mmol/L (136-145) Potassium Level 4.1 mmol/L (3.5-5.1) Chloride Level 105 mmol/L (98-107) Carbon Dioxide Level 29 mmol/L (21-32) Anion Gap 8 (6-14) Blood Urea Nitrogen 10 mg/dL (8-26) Creatinine 0.9 mg/dL (0.7-1.3) Estimated GFR (Cockcroft-Gault) 92.5 BUN/Creatinine Ratio 11 (6-20) Glucose Level 86 mg/dL (70-99) Calcium Level 8.9 mg/dL (8.5-10.1) Total Bilirubin 0.3 mg/dL (0.2-1.0) Aspartate Amino Transf (AST/SGOT) 24 U/L (15-37) Alanine Aminotransferase (ALT/SGPT) 37 U/L (16-63) Alkaline Phosphatase 53 U/L (46-116) Total Protein 6.4 g/dL (6.4-8.2) Albumin 3.0 g/dL (3.4-5.0) Albumin/Globulin Ratio 0.9 (1.0-1.7) Laboratory Tests Test 09/29/19 12:12 White Blood Count 10.6 x10^3/uL (4.0-11.0) Red Blood Count 4.15 x10^6/uL (4.30-5.70) Hemoglobin 10.7 g/dL (13.0-17.5) Hematocrit 32.6 % (39.0-53.0) Mean Corpuscular Volume 79 fL (79-100) Mean Corpuscular Hemoglobin 26 pg (25-35) Mean Corpuscular Hemoglobin Concent 33 g/dL (31-37) Red Cell Distribution Width 18.5 % (11.5-14.5) Platelet Count 698 x10^3/uL (140-400) Neutrophils (%) (Auto) 67 % (31-73) Lymphocytes (%) (Auto) 15 % (24-48) Monocytes (%) (Auto) 9 % (0-9) Eosinophils (%) (Auto) 5 % (0-3) Basophils (%) (Auto) 4 % (0-3) Neutrophils # (Auto) 7.1 x10^3/uL (1.8-7.7) Lymphocytes # (Auto) 1.6 x10^3/uL (1.0-4.8) Monocytes # (Auto) 0.9 x10^3/uL (0.0-1.1) Eosinophils # (Auto) 0.5 x10^3/uL (0.0-0.7) Basophils # (Auto) 0.4 x10^3/uL (0.0-0.2) Segmented Neutrophils % 64 % (35-66) Band Neutrophils % 2 % (0-9) Lymphocytes % 15 % (24-48) Monocytes % 13 % (0-10) Eosinophils % 3 % (0-5) Basophils % 3 % (0-3) Toxic Granulation Slight Platelet Estimate Increased (ADEQUATE) Polychromasia Slight Anisocytosis Slight Target Cells Occ Tear Drop Cells Occ Ovalocytes Occ Sodium Level 142 mmol/L (136-145) Potassium Level 4.1 mmol/L (3.5-5.1) Chloride Level 105 mmol/L (98-107) Carbon Dioxide Level 29 mmol/L (21-32) Anion Gap 8 (6-14) Blood Urea Nitrogen 10 mg/dL (8-26) Creatinine 0.9 mg/dL (0.7-1.3) Estimated GFR (Cockcroft-Gault) 92.5 BUN/Creatinine Ratio 11 (6-20) Glucose Level 86 mg/dL (70-99) Calcium Level 8.9 mg/dL (8.5-10.1) Total Bilirubin 0.3 mg/dL (0.2-1.0) Aspartate Amino Transf (AST/SGOT) 24 U/L (15-37) Alanine Aminotransferase (ALT/SGPT) 37 U/L (16-63) Alkaline Phosphatase 53 U/L (46-116) Total Protein 6.4 g/dL (6.4-8.2) Albumin 3.0 g/dL (3.4-5.0) Albumin/Globulin Ratio 0.9 (1.0-1.7) Medications Current Medications Ondansetron HCl (Zofran) 4 mg STK-MED ONCE .ROUTE ; Start 09/14/19 at 17:54; Stop 09/14/19 at 17:54; Status DC Lorazepam (Ativan Inj) 2 mg STK-MED ONCE .ROUTE ; Start 09/14/19 at 17:55; Stop 09/14/19 at 17:55; Status DC Lorazepam (Ativan Inj) 2 mg 1X ONCE IVP Last administered on 09/14/19at 18:05; Start 09/14/19 at 18:00; Stop 09/14/19 at 18:09; Status DC Ondansetron HCl (Zofran) 4 mg 1X ONCE IVP Last administered on 09/14/19at 18:04; Start 09/14/19 at 18:00; Stop 09/14/19 at 18:09; Status DC Pantoprazole Sodium (PROTONIX VIAL for IV PUSH) 40 mg 1X ONCE IVP Last administered on 09/14/19at 18:43; Start 09/14/19 at 18:00; Stop 09/14/19 at 18:09; Status DC Sodium Chloride 1,000 ml @ 1,000 mls/hr 1X ONCE IV Last administered on 09/14/19at 19:10; Start 09/14/19 at 18:00; Stop 09/14/19 at 19:00; Status DC Multivitamins 10 ml/Thiamine HCl 100 mg/Folic Acid 1 mg/Sodium Chloride 1,011.2 ml @ 100 mls/ hr DAILY IV Last administered on 09/18/19at 09:37; Start 09/14/19 at 18:30; Stop 09/18/19 at 19:07; Status DC Lorazepam (Ativan Inj) 2 mg PRN Q1HR PRN IV For CIWA 8-14 Last administered on 09/30/19at 04:13; Start 09/14/19 at 18:30 Lorazepam (Ativan Inj) 4 mg PRN Q1HR PRN IV For CIWA 15 or greater Last administered on 09/28/19at 23:26; Start 09/14/19 at 18:30 Pantoprazole Sodium 80 mg/ Sodium Chloride 100 ml @ 10 mls/hr 1X ONCE IV Last administered on 09/14/19at 18:44; Start 09/14/19 at 18:30; Stop 09/15/19 at 04:29; Status DC Iohexol (Omnipaque 300 Mg/ml) 75 ml 1X ONCE IV ; Start 09/14/19 at 19:00; Stop 09/14/19 at 19:01; Status DC Info (CONTRAST GIVEN -- Rx MONITORING) 1 each PRN DAILY PRN MC SEE COMMENTS; Start 09/14/19 at 19:00; Stop 09/16/19 at 18:59; Status DC Ondansetron HCl (Zofran) 4 mg PRN Q8HRS PRN IV NAUSEA/VOMITING; Start 09/14/19 at 19:30; Stop 09/15/19 at 19:29; Status DC Sodium Chloride 1,000 ml @ 125 mls/hr Q8H IV Last administered on 09/15/19at 15:39; Start 09/14/19 at 19:19; Stop 09/15/19 at 19:18; Status DC Etomidate (Amidate) 20 mg STK-MED ONCE IV ; Start 09/14/19 at 21:22; Stop 09/14/19 at 21:22; Status DC Lidocaine HCl (Lidocaine Pf 2% Vial) 5 ml STK-MED ONCE .ROUTE ; Start 09/14/19 at 21:22; Stop 09/14/19 at 21:22; Status DC Rocuronium Leonard (Zemuron) 50 mg STK-MED ONCE .ROUTE ; Start 09/14/19 at 21:23; Stop 09/14/19 at 21:23; Status DC Phenylephrine HCl (PHENYLEPHRINE in 0.9% NACL PF) 1 mg STK-MED ONCE IV ; Start 09/14/19 at 21:24; Stop 09/14/19 at 21:24; Status DC Propofol 100 ml @ 0 mls/hr CONT PRN IV SEE PROTOCOL Last administered on 09/24/19at 09:12; Start 09/14/19 at 22:30; Stop 09/28/19 at 15:28; Status DC Fentanyl Citrate (Fentanyl 2ml Vial) 25 mcg PRN Q1HR PRN IV SEE COMMENTS; Start 09/14/19 at 22:30; Stop 09/15/19 at 06:26; Status DC Fentanyl Citrate (Fentanyl 2ml Vial) 50 mcg PRN Q1HR PRN IV SEE COMMENTS; Start 09/14/19 at 22:30; Stop 09/15/19 at 06:26; Status DC Epinephrine HCl (EPINEPHrine SYRINGE) 1 mg STK-MED ONCE .ROUTE ; Start 09/14/19 at 23:19; Stop 09/14/19 at 23:20; Status DC Pantoprazole Sodium (PROTONIX VIAL for IV PUSH) 40 mg BID IVP Last administered on 09/27/19at 08:15; Start 09/15/19 at 09:00; Stop 09/27/19 at 12:35; Status DC Epinephrine HCl (EPINEPHrine SYRINGE) 1 mg STK-MED ONCE IV Last administered on 09/14/19at 23:00; Start 09/14/19 at 23:00; Stop 09/14/19 at 23:29; Status DC Fentanyl Citrate 30 ml @ 0 mls/hr CONT PRN IV SEE PROTOCOL Last administered on 09/16/19at 20:58; Start 09/14/19 at 23:45; Stop 09/17/19 at 16:28; Status DC Midazolam HCl 50 mg/Sodium Chloride 50 ml @ 0 mls/hr CONT PRN IV SEE PROTOCOL Last administered on 09/15/19at 22:10; Start 09/14/19 at 23:45; Stop 09/17/19 at 16:28; Status DC Sodium Bicarbonate (Sodium Bicarb Adult 8.4% Syr) 50 meq 1X ONCE IV Last administered on 09/15/19at 01:25; Start 09/15/19 at 01:00; Stop 09/15/19 at 01:01; Status DC Sodium Chloride 1,000 ml @ 50 mls/hr Q20H IV Last administered on 09/27/19at 23:39; Start 09/16/19 at 02:00; Stop 09/28/19 at 14:58; Status DC Dexmedetomidine HCl 400 mcg/ Sodium Chloride 100 ml @ 0 mls/hr CONT PRN IV AGITATION Last administered on 09/28/19at 04:57; Start 09/16/19 at 08:30; Stop 09/28/19 at 08:55; Status DC Sodium Chloride 500 ml @ 500 mls/hr 1X PRN PRN IV HYPOTENTION; Start 09/16/19 at 08:30 Atropine Sulfate (ATROPINE 0.5mg SYRINGE) 0.5 mg PRN Q5MIN PRN IV SEE COMMENTS; Start 09/16/19 at 08:30; Stop 09/28/19 at 09:42; Status DC Amino Acids/ Glycerin/ Electrolytes 1,000 ml @ 80 mls/hr [id number] IV ; Start 09/16/19 at 10:00; Status UNV Ceftriaxone Sodium (Rocephin) 1 gm Q24H IVP Last administered on 09/20/19at 11:24; Start 09/16/19 at 11:00; Stop 09/21/19 at 10:45; Status DC Amino Acids/ Electrolytes/ Dextrose 1,000 ml @ 80 mls/hr [id number] IV Last administered on 09/23/19at 04:45; Start 09/16/19 at 10:15; Stop 09/23/19 at 09:35; Status DC Magnesium Sulfate/ Dextrose 100 ml @ 100 mls/hr 1X ONCE IV Last administered on 09/16/19at 12:10; Start 09/16/19 at 11:45; Stop 09/16/19 at 12:44; Status DC Potassium Chloride/Water 100 ml @ 100 mls/hr Q1H IV ; Start 09/16/19 at 14:15; Stop 09/16/19 at 14:16; Status DC Potassium Chloride/Water 100 ml @ 100 mls/hr Q1H IV ; Start 09/16/19 at 14:15; Stop 09/16/19 at 14:17; Status DC Magnesium Sulfate 100 ml @ 50 mls/hr DAILY IV Last administered on 09/19/19at 09:10; Start 09/17/19 at 09:00; Stop 09/20/19 at 08:59; Status DC Sodium Phosphate 15 mmol/Sodium Chloride 255 ml @ 62.5 mls/hr PRN 1X PRN IV SEE COMMENTS; Start 09/16/19 at 14:15 Sodium Phosphate 15 mmol/Sodium Chloride 255 ml @ 62.5 mls/hr PRN 1X PRN IV SEE COMMENTS; Start 09/16/19 at 14:15 Potassium Chloride/Water 100 ml @ 100 mls/hr PRN Q1HR PRN IV SEE COMMENTS; Start 09/16/19 at 14:30 Potassium Chloride/Water 100 ml @ 100 mls/hr PRN Q1HR PRN IV SEE COMMENTS; Start 09/16/19 at 14:30 Levetiracetam 500 mg/Dextrose 105 ml @ 420 mls/hr Q12HR IV Last administered on 09/19/19at 10:19; Start 09/16/19 at 21:00; Stop 09/19/19 at 13:06; Status DC Hydralazine HCl (Apresoline Inj) 10 mg PRN Q4HRS PRN IVP ELEVATED BP, SEE COMMENTS Last administered on 09/19/19at 09:09; Start 09/16/19 at 18:00; Stop 09/19/19 at 09:49; Status DC Magnesium Sulfate/ Dextrose 100 ml @ 100 mls/hr 1X ONCE IV ; Start 09/17/19 at 12:45; Stop 09/17/19 at 13:03; Status DC Albuterol Sulfate (Ventolin Neb Soln) 2.5 mg PRN Q6HRS PRN NEB SHORTNESS OF BREATH Last administered on 09/20/19at 17:27; Start 09/17/19 at 15:45 Budesonide (Pulmicort) 0.5 mg RTBID NEB Last administered on 09/30/19at 07:47; Start 09/17/19 at 20:00 Albuterol Sulfate (Ventolin Neb Soln) 2.5 mg Q6HRS NEB Last administered on 09/30/19at 07:47; Start 09/17/19 at 18:00 Fentanyl Citrate (Fentanyl 2ml Vial) 25 mcg PRN Q3HRS PRN IVP PAIN Last administered on 09/20/19at 08:44; Start 09/17/19 at 17:00 Hydralazine HCl (Apresoline Inj) 10 mg 1X ONCE IVP Last administered on 09/18/19at 12:18; Start 09/18/19 at 12:15; Stop 09/18/19 at 12:16; Status DC Hydralazine HCl (Apresoline Inj) 20 mg PRN Q4HRS PRN IVP ELEVATED BP, SEE COMMENTS Last administered on 09/28/19at 13:39; Start 09/18/19 at 12:15 Potassium Chloride/Water 100 ml @ 100 mls/hr Q1H IV Last administered on 09/19/19at 13:26; Start 09/19/19 at 11:00; Stop 09/19/19 at 12:59; Status DC Haloperidol Lactate (Haldol Inj) 2 mg PRN Q6HRS PRN IVP AGITATION Last administered on 09/29/19at 16:36; Start 09/19/19 at 15:00 Fentanyl Citrate 30 ml @ 0 mls/hr CONT PRN IV SEE PROTOCOL Last administered on 09/24/19at 06:37; Start 09/20/19 at 08:45; Stop 09/28/19 at 15:28; Status DC Midazolam HCl 50 mg/Sodium Chloride 50 ml @ 0 mls/hr CONT PRN IV SEE PROTOCOL Last administered on 09/24/19at 06:03; Start 09/20/19 at 08:45; Stop 09/28/19 at 15:29; Status DC Thiamine HCl 100 mg/Dextrose 51 ml @ 102 mls/hr DAILY IV Last administered on 09/28/19at 08:50; Start 09/20/19 at 16:00; Stop 09/28/19 at 11:16; Status DC Piperacillin Sod/ Tazobactam Sod (Zosyn Per Pharmacy) 1 each PRN DAILY PRN MC SEE COMMENTS; Start 09/21/19 at 10:45 Piperacillin Sod/ Tazobactam Sod 3.375 gm/Sodium Chloride 50 ml @ 100 mls/hr Q6HRS IV Last administered on 09/30/19at 06:36; Start 09/21/19 at 12:00 Alteplase, Recombinant (Cathflo For Central Catheter Clearance) 1 mg 1X ONCE INT CAT Last administered on 09/22/19at 02:16; Start 09/22/19 at 02:30; Stop 09/22/19 at 02:31; Status DC Alteplase, Recombinant (Cathflo For Central Catheter Clearance) 1 mg 1X ONCE INT CAT Last administered on 09/22/19at 03:43; Start 09/22/19 at 03:30; Stop 09/22/19 at 03:32; Status DC Polyethylene Glycol (miraLAX PACKET) 17 gm PRN DAILY PRN FT CONSTIPATION; Start 09/22/19 at 08:45; Stop 09/27/19 at 12:35; Status DC Enalaprilat (Vasotec Inj) 1.25 mg PRN Q6HRS PRN IVP HYPERTENSION Last administered on 09/26/19at 11:31; Start 09/26/19 at 05:45 Lorazepam (Ativan) 8 mg PRN Q1HR PRN PO For CIWA 15 or greater; Start 09/26/19 at 13:15 Lorazepam (Ativan Inj) 6 mg PRN Q1HR PRN IV For CIWA 15 or greater Last administered on 09/26/19at 13:31; Start 09/26/19 at 13:15 Diphenhydramine HCl (Benadryl) 25 mg PRN Q15MIN PRN IVP EPS symptoms 2'Haldol admin Last administered on 09/26/19at 13:32; Start 09/26/19 at 13:15 Pantoprazole Sodium (Protonix) 40 mg DAILYAC PO Last administered on 09/30/19at 08:55; Start 09/28/19 at 07:30 Polyethylene Glycol (miraLAX PACKET) 17 gm DAILY PO Last administered on 09/29/19at 09:57; Start 09/27/19 at 13:00 Polyethylene Glycol (miraLAX PACKET) 17 gm PRN DAILY PRN PO CONSTIPATION; Start 09/27/19 at 12:45 Lorazepam (Ativan) 2 mg QID PO Last administered on 09/30/19at 08:55; Start 09/28/19 at 09:00 Lactobacillus Rhamnosus (Culturelle) 1 cap BID PO Last administered on 09/30/19at 08:55; Start 09/28/19 at 21:00 Amlodipine Besylate (Norvasc) 5 mg DAILY PO Last administered on 09/30/19at 08:55; Start 09/28/19 at 15:00 Diphenhydramine HCl (Benadryl) 50 mg PRN QHS PRN PO INSOMNIA Last administered on 09/28/19at 21:21; Start 09/28/19 at 21:15 Bisacodyl (Dulcolax Tab) 10 mg PRN DAILY PRN PO CONSTIPATION; Start 09/29/19 at 09:30 Active Scripts Active Protonix (Pantoprazole Sodium) 40 Mg Tablet.dr 40 Mg PO DAILYAC PRN 30 Days Reported Amlodipine Besylate 5 Mg Tablet 5 Mg PO DAILY Proair Hfa Inhaler (Albuterol Sulfate) 8.5 Gm Hfa.aer.ad 1 Puff INH PRN Q4HRS PRN Symbicort 160-4.5 Mcg Inhaler (Budesonide/Formoterol Fumarate) 10.2 Gm Hfa.aer.ad 2 Puff IH BID Theophylline (Theophylline Anhydrous) 400 Mg Tablet.er 300 Mg PO BID Vitals/I & O Vital Sign - Last 24 Hours 09/29/19 09/29/19 09/29/19 09/29/19 09:57 11:00 13:13 15:00 Temp 98.1 97.8 98.1 97.8 Pulse 78 72 78 Resp 18 18 B/P (MAP) 162/96 156/84 (108) 147/90 (109) Pulse Ox 94 97 O2 Delivery Room Air Room Air Room Air 09/29/19 09/29/19 09/29/19 09/29/19 19:40 19:47 19:47 20:45 Temp 97.5 97.5 Pulse 86 Resp 20 B/P (MAP) 157/95 (115) Pulse Ox 98 O2 Delivery Room Air Room Air Room Air Room Air 09/29/19 09/30/19 09/30/19 09/30/19 23:54 03:47 07:47 07:49 Temp 97.7 97.8 97.7 97.7 97.8 97.7 Pulse 70 68 89 Resp 20 20 18 B/P (MAP) 140/80 (100) 137/77 (97) 169/99 (122) Pulse Ox 95 95 99 95 O2 Delivery Room Air Room Air Room Air Room Air 09/30/19 09/30/19 07:51 08:55 Pulse 89 B/P (MAP) 169/99 Pulse Ox 95 O2 Delivery Room Air Intake and Output 09/29/19 09/29/19 09/30/19 15:00 23:00 07:00 Intake Total 400 ml 500 ml Output Total 300 ml 600 ml 700 ml Balance -300 ml -200 ml -200 ml JUANCARLOS CULP MD Sep 30, 2019 09:26
--- NOTE | 2019-09-30 10:18 | PDOC ---
Subjective: Subjective: Tolerating PO and stooling. Objective: Vital Signs: Vital Signs Date Time Temp Pulse Resp B/P (MAP) Pulse Ox O2 Delivery O2 Flow Rate FiO2 09/30/19 08:55 89 169/99 09/30/19 08:00 Room Air 09/30/19 07:51 95 09/30/19 07:47 97.7 18 97.7 Labs: Laboratory Tests Test 09/29/19 12:12 White Blood Count 10.6 x10^3/uL Red Blood Count 4.15 x10^6/uL Hemoglobin 10.7 g/dL Hematocrit 32.6 % Mean Corpuscular Volume 79 fL Mean Corpuscular Hemoglobin 26 pg Mean Corpuscular Hemoglobin Concent 33 g/dL Red Cell Distribution Width 18.5 % Platelet Count 698 x10^3/uL Neutrophils (%) (Auto) 67 % Lymphocytes (%) (Auto) 15 % Monocytes (%) (Auto) 9 % Eosinophils (%) (Auto) 5 % Basophils (%) (Auto) 4 % Neutrophils # (Auto) 7.1 x10^3/uL Lymphocytes # (Auto) 1.6 x10^3/uL Monocytes # (Auto) 0.9 x10^3/uL Eosinophils # (Auto) 0.5 x10^3/uL Basophils # (Auto) 0.4 x10^3/uL Segmented Neutrophils % 64 % Band Neutrophils % 2 % Lymphocytes % 15 % Monocytes % 13 % Eosinophils % 3 % Basophils % 3 % Toxic Granulation Slight Platelet Estimate Increased Polychromasia Slight Anisocytosis Slight Target Cells Occ Tear Drop Cells Occ Ovalocytes Occ Sodium Level 142 mmol/L Potassium Level 4.1 mmol/L Chloride Level 105 mmol/L Carbon Dioxide Level 29 mmol/L Anion Gap 8 Blood Urea Nitrogen 10 mg/dL Creatinine 0.9 mg/dL Estimated GFR (Cockcroft-Gault) 92.5 BUN/Creatinine Ratio 11 Glucose Level 86 mg/dL Calcium Level 8.9 mg/dL Total Bilirubin 0.3 mg/dL Aspartate Amino Transf (AST/SGOT) 24 U/L Alanine Aminotransferase (ALT/SGPT) 37 U/L Alkaline Phosphatase 53 U/L Total Protein 6.4 g/dL Albumin 3.0 g/dL Albumin/Globulin Ratio 0.9 PE: GEN: NAD ABD: S/ND/NT NEURO/PSYCH: A & O 3 A/P: Alcohol abuse Erosive esophagitis, DU - s/p endotherapy 09/15/19, on PPI -- Awaiting DC. Hemodynamically unstable?: No Is patient in severe pain?: No Is NPO status required?: No MESSI GORE Sep 30, 2019 10:18
--- NOTE | 2019-09-30 10:59 | PDOC ---
PROGRESS NOTES Chief Complaint Chief Complaint impression 0. Resolving respiratory failure (was intubated now extubated for 3 days) 1. acute UGI BLEED 2. severe diffuse hepatic steatosis. 3. Erosive esophagitis, epinephrine injection duodenal ulcer in the first and second portions of duodenum with a visible vessel, status post epinephrine injection. 4. polysubstance abuse, alcohol cocaine and marijuana 5. Electrolyte imbalance 6. Malignant hypertension 7. mild generalized parenchymal atrophy. No acute parenchymal abnormality is seen. No extra-axial fluid collection is noted. No skull fracture is seen. BY CT HEAD 09/13 8. GENERALIZED WEAKNESS 9. 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 11. Seizure or seizure like episodes, alcohol/withdrawal related. PLAN CBC, COMP TODAY TELE BED PT/OT ATTEND AA DAILY POOR PROGNOSIS DUE TO POLYSUBSTANCE ABUSE Treatment Plan * Therapeutic Exercise * Dynamic Balance Training Frequency of Treatment Expected * 7 visits/week Duration of Treatment Expected * 2 weeks History of Present Illness History of Present Illness [id number] Patient seen and examined Chart reviewed Discussed with RN CONFUSED AND SHAKING AT TIMES PT/OT SEEING [id number] Patient seen and examined in the ICU He is starting to wake up more for the past 48 hours but is still very shaky States he is going to quit drinking when he gets home, although he has told me that in the past Discussed with case management Discussed with RN Chart reviewed [id number] Patient seen and examined He is now extubated Extremely weak and tremulous Chart reviewed Discussed with RN Seems that he needs high-dose benzodiazepines [id number] Patient seen and examined in the ICU He remains on the vent assist control 16/500/40% Eyes are open but he doesn't seem to recognize me Chart reviewed Discussed with RN Still critically ill [id number] Patient seen and examined in the ICU He remains mechanically ventilated with an OG feeds running at 55 mL/h Vent settings as follows assist-control/10/500/40% with 5 of PEEP Chart reviewed Discussed with RN He is critically ill [id number] Patient seen and examined in the ICU He remains critically ill On mechanical ventilation with assist control/16/500/40% Sedated with propofol and fentanyl Has PPN and OG feeds running Chart reviewed Discussed with RN [id number] Patient seen and examined in the ICU once again He remains intubated and on assist-control/16/500/40% with 5 of PEEP Sedated with Precedex Getting TPN and albumin Also on Versed levo fed He is critically ill Discussed with RN Chart reviewed [id number] Patient seen and examined in the ICU He is intubated Assist-control//500/60% FiO2 Chart reviewed Discussed with RN Vitals Vitals Vital Signs Date Time Temp Pulse Resp B/P (MAP) Pulse Ox O2 Delivery O2 Flow Rate FiO2 09/30/19 08:55 89 169/99 09/30/19 08:00 Room Air 09/30/19 07:51 95 09/30/19 07:47 97.7 18 97.7 Physical Exam General: Alert, Cooperative, No acute distress, Other (intermittently confused shaking) Heart: Regular rate, Normal S1, Normal S2 Lungs: Other (rhonchi) Abdomen: Normal bowel sounds, Soft, No tenderness Extremities: No cyanosis, No edema Skin: No rashes Labs LABS Laboratory Tests Test 09/29/19 12:12 White Blood Count 10.6 x10^3/uL (4.0-11.0) Red Blood Count 4.15 x10^6/uL (4.30-5.70) Hemoglobin 10.7 g/dL (13.0-17.5) Hematocrit 32.6 % (39.0-53.0) Mean Corpuscular Volume 79 fL (79-100) Mean Corpuscular Hemoglobin 26 pg (25-35) Mean Corpuscular Hemoglobin Concent 33 g/dL (31-37) Red Cell Distribution Width 18.5 % (11.5-14.5) Platelet Count 698 x10^3/uL (140-400) Neutrophils (%) (Auto) 67 % (31-73) Lymphocytes (%) (Auto) 15 % (24-48) Monocytes (%) (Auto) 9 % (0-9) Eosinophils (%) (Auto) 5 % (0-3) Basophils (%) (Auto) 4 % (0-3) Neutrophils # (Auto) 7.1 x10^3/uL (1.8-7.7) Lymphocytes # (Auto) 1.6 x10^3/uL (1.0-4.8) Monocytes # (Auto) 0.9 x10^3/uL (0.0-1.1) Eosinophils # (Auto) 0.5 x10^3/uL (0.0-0.7) Basophils # (Auto) 0.4 x10^3/uL (0.0-0.2) Segmented Neutrophils % 64 % (35-66) Band Neutrophils % 2 % (0-9) Lymphocytes % 15 % (24-48) Monocytes % 13 % (0-10) Eosinophils % 3 % (0-5) Basophils % 3 % (0-3) Toxic Granulation Slight Platelet Estimate Increased (ADEQUATE) Polychromasia Slight Anisocytosis Slight Target Cells Occ Tear Drop Cells Occ Ovalocytes Occ Sodium Level 142 mmol/L (136-145) Potassium Level 4.1 mmol/L (3.5-5.1) Chloride Level 105 mmol/L (98-107) Carbon Dioxide Level 29 mmol/L (21-32) Anion Gap 8 (6-14) Blood Urea Nitrogen 10 mg/dL (8-26) Creatinine 0.9 mg/dL (0.7-1.3) Estimated GFR (Cockcroft-Gault) 92.5 BUN/Creatinine Ratio 11 (6-20) Glucose Level 86 mg/dL (70-99) Calcium Level 8.9 mg/dL (8.5-10.1) Total Bilirubin 0.3 mg/dL (0.2-1.0) Aspartate Amino Transf (AST/SGOT) 24 U/L (15-37) Alanine Aminotransferase (ALT/SGPT) 37 U/L (16-63) Alkaline Phosphatase 53 U/L (46-116) Total Protein 6.4 g/dL (6.4-8.2) Albumin 3.0 g/dL (3.4-5.0) Albumin/Globulin Ratio 0.9 (1.0-1.7) Assessment and Plan Assessmemt and Plan Problems Medical Problems: (1) GI bleed Status: Acute Comment Review of Relevant I have reviewed the following items wali (where applicable) has been applied. Labs Laboratory Tests Test 09/29/19 12:12 White Blood Count 10.6 x10^3/uL (4.0-11.0) Red Blood Count 4.15 x10^6/uL (4.30-5.70) Hemoglobin 10.7 g/dL (13.0-17.5) Hematocrit 32.6 % (39.0-53.0) Mean Corpuscular Volume 79 fL (79-100) Mean Corpuscular Hemoglobin 26 pg (25-35) Mean Corpuscular Hemoglobin Concent 33 g/dL (31-37) Red Cell Distribution Width 18.5 % (11.5-14.5) Platelet Count 698 x10^3/uL (140-400) Neutrophils (%) (Auto) 67 % (31-73) Lymphocytes (%) (Auto) 15 % (24-48) Monocytes (%) (Auto) 9 % (0-9) Eosinophils (%) (Auto) 5 % (0-3) Basophils (%) (Auto) 4 % (0-3) Neutrophils # (Auto) 7.1 x10^3/uL (1.8-7.7) Lymphocytes # (Auto) 1.6 x10^3/uL (1.0-4.8) Monocytes # (Auto) 0.9 x10^3/uL (0.0-1.1) Eosinophils # (Auto) 0.5 x10^3/uL (0.0-0.7) Basophils # (Auto) 0.4 x10^3/uL (0.0-0.2) Segmented Neutrophils % 64 % (35-66) Band Neutrophils % 2 % (0-9) Lymphocytes % 15 % (24-48) Monocytes % 13 % (0-10) Eosinophils % 3 % (0-5) Basophils % 3 % (0-3) Toxic Granulation Slight Platelet Estimate Increased (ADEQUATE) Polychromasia Slight Anisocytosis Slight Target Cells Occ Tear Drop Cells Occ Ovalocytes Occ Sodium Level 142 mmol/L (136-145) Potassium Level 4.1 mmol/L (3.5-5.1) Chloride Level 105 mmol/L (98-107) Carbon Dioxide Level 29 mmol/L (21-32) Anion Gap 8 (6-14) Blood Urea Nitrogen 10 mg/dL (8-26) Creatinine 0.9 mg/dL (0.7-1.3) Estimated GFR (Cockcroft-Gault) 92.5 BUN/Creatinine Ratio 11 (6-20) Glucose Level 86 mg/dL (70-99) Calcium Level 8.9 mg/dL (8.5-10.1) Total Bilirubin 0.3 mg/dL (0.2-1.0) Aspartate Amino Transf (AST/SGOT) 24 U/L (15-37) Alanine Aminotransferase (ALT/SGPT) 37 U/L (16-63) Alkaline Phosphatase 53 U/L (46-116) Total Protein 6.4 g/dL (6.4-8.2) Albumin 3.0 g/dL (3.4-5.0) Albumin/Globulin Ratio 0.9 (1.0-1.7) Laboratory Tests Test 09/29/19 12:12 White Blood Count 10.6 x10^3/uL (4.0-11.0) Red Blood Count 4.15 x10^6/uL (4.30-5.70) Hemoglobin 10.7 g/dL (13.0-17.5) Hematocrit 32.6 % (39.0-53.0) Mean Corpuscular Volume 79 fL (79-100) Mean Corpuscular Hemoglobin 26 pg (25-35) Mean Corpuscular Hemoglobin Concent 33 g/dL (31-37) Red Cell Distribution Width 18.5 % (11.5-14.5) Platelet Count 698 x10^3/uL (140-400) Neutrophils (%) (Auto) 67 % (31-73) Lymphocytes (%) (Auto) 15 % (24-48) Monocytes (%) (Auto) 9 % (0-9) Eosinophils (%) (Auto) 5 % (0-3) Basophils (%) (Auto) 4 % (0-3) Neutrophils # (Auto) 7.1 x10^3/uL (1.8-7.7) Lymphocytes # (Auto) 1.6 x10^3/uL (1.0-4.8) Monocytes # (Auto) 0.9 x10^3/uL (0.0-1.1) Eosinophils # (Auto) 0.5 x10^3/uL (0.0-0.7) Basophils # (Auto) 0.4 x10^3/uL (0.0-0.2) Segmented Neutrophils % 64 % (35-66) Band Neutrophils % 2 % (0-9) Lymphocytes % 15 % (24-48) Monocytes % 13 % (0-10) Eosinophils % 3 % (0-5) Basophils % 3 % (0-3) Toxic Granulation Slight Platelet Estimate Increased (ADEQUATE) Polychromasia Slight Anisocytosis Slight Target Cells Occ Tear Drop Cells Occ Ovalocytes Occ Sodium Level 142 mmol/L (136-145) Potassium Level 4.1 mmol/L (3.5-5.1) Chloride Level 105 mmol/L (98-107) Carbon Dioxide Level 29 mmol/L (21-32) Anion Gap 8 (6-14) Blood Urea Nitrogen 10 mg/dL (8-26) Creatinine 0.9 mg/dL (0.7-1.3) Estimated GFR (Cockcroft-Gault) 92.5 BUN/Creatinine Ratio 11 (6-20) Glucose Level 86 mg/dL (70-99) Calcium Level 8.9 mg/dL (8.5-10.1) Total Bilirubin 0.3 mg/dL (0.2-1.0) Aspartate Amino Transf (AST/SGOT) 24 U/L (15-37) Alanine Aminotransferase (ALT/SGPT) 37 U/L (16-63) Alkaline Phosphatase 53 U/L (46-116) Total Protein 6.4 g/dL (6.4-8.2) Albumin 3.0 g/dL (3.4-5.0) Albumin/Globulin Ratio 0.9 (1.0-1.7) Medications Current Medications Ondansetron HCl (Zofran) 4 mg STK-MED ONCE .ROUTE ; Start 09/14/19 at 17:54; Stop 09/14/19 at 17:54; Status DC Lorazepam (Ativan Inj) 2 mg STK-MED ONCE .ROUTE ; Start 09/14/19 at 17:55; Stop 09/14/19 at 17:55; Status DC Lorazepam (Ativan Inj) 2 mg 1X ONCE IVP Last administered on 09/14/19at 18:05; Start 09/14/19 at 18:00; Stop 09/14/19 at 18:09; Status DC Ondansetron HCl (Zofran) 4 mg 1X ONCE IVP Last administered on 09/14/19at 18:04; Start 09/14/19 at 18:00; Stop 09/14/19 at 18:09; Status DC Pantoprazole Sodium (PROTONIX VIAL for IV PUSH) 40 mg 1X ONCE IVP Last administered on 09/14/19at 18:43; Start 09/14/19 at 18:00; Stop 09/14/19 at 18:09; Status DC Sodium Chloride 1,000 ml @ 1,000 mls/hr 1X ONCE IV Last administered on 09/14/19at 19:10; Start 09/14/19 at 18:00; Stop 09/14/19 at 19:00; Status DC Multivitamins 10 ml/Thiamine HCl 100 mg/Folic Acid 1 mg/Sodium Chloride 1,011.2 ml @ 100 mls/ hr DAILY IV Last administered on 09/18/19at 09:37; Start 09/14/19 at 18:30; Stop 09/18/19 at 19:07; Status DC Lorazepam (Ativan Inj) 2 mg PRN Q1HR PRN IV For CIWA 8-14 Last administered on 09/30/19at 04:13; Start 09/14/19 at 18:30 Lorazepam (Ativan Inj) 4 mg PRN Q1HR PRN IV For CIWA 15 or greater Last administered on 09/28/19at 23:26; Start 09/14/19 at 18:30 Pantoprazole Sodium 80 mg/ Sodium Chloride 100 ml @ 10 mls/hr 1X ONCE IV Last administered on 09/14/19at 18:44; Start 09/14/19 at 18:30; Stop 09/15/19 at 04:29; Status DC Iohexol (Omnipaque 300 Mg/ml) 75 ml 1X ONCE IV ; Start 09/14/19 at 19:00; Stop 09/14/19 at 19:01; Status DC Info (CONTRAST GIVEN -- Rx MONITORING) 1 each PRN DAILY PRN MC SEE COMMENTS; Start 09/14/19 at 19:00; Stop 09/16/19 at 18:59; Status DC Ondansetron HCl (Zofran) 4 mg PRN Q8HRS PRN IV NAUSEA/VOMITING; Start 09/14/19 at 19:30; Stop 09/15/19 at 19:29; Status DC Sodium Chloride 1,000 ml @ 125 mls/hr Q8H IV Last administered on 09/15/19at 15:39; Start 09/14/19 at 19:19; Stop 09/15/19 at 19:18; Status DC Etomidate (Amidate) 20 mg STK-MED ONCE IV ; Start 09/14/19 at 21:22; Stop 09/14/19 at 21:22; Status DC Lidocaine HCl (Lidocaine Pf 2% Vial) 5 ml STK-MED ONCE .ROUTE ; Start 09/14/19 at 21:22; Stop 09/14/19 at 21:22; Status DC Rocuronium [place] (Zemuron) 50 mg STK-MED ONCE .ROUTE ; Start 09/14/19 at 21:23; Stop 09/14/19 at 21:23; Status DC Phenylephrine HCl (PHENYLEPHRINE in 0.9% NACL PF) 1 mg STK-MED ONCE IV ; Start 09/14/19 at 21:24; Stop 09/14/19 at 21:24; Status DC Propofol 100 ml @ 0 mls/hr CONT PRN IV SEE PROTOCOL Last administered on 09/24/19at 09:12; Start 09/14/19 at 22:30; Stop 09/28/19 at 15:28; Status DC Fentanyl Citrate (Fentanyl 2ml Vial) 25 mcg PRN Q1HR PRN IV SEE COMMENTS; Start 09/14/19 at 22:30; Stop 09/15/19 at 06:26; Status DC Fentanyl Citrate (Fentanyl 2ml Vial) 50 mcg PRN Q1HR PRN IV SEE COMMENTS; Start 09/14/19 at 22:30; Stop 09/15/19 at 06:26; Status DC Epinephrine HCl (EPINEPHrine SYRINGE) 1 mg STK-MED ONCE .ROUTE ; Start 09/14/19 at 23:19; Stop 09/14/19 at 23:20; Status DC Pantoprazole Sodium (PROTONIX VIAL for IV PUSH) 40 mg BID IVP Last administered on 09/27/19at 08:15; Start 09/15/19 at 09:00; Stop 09/27/19 at 12:35; Status DC Epinephrine HCl (EPINEPHrine SYRINGE) 1 mg STK-MED ONCE IV Last administered on 09/14/19at 23:00; Start 09/14/19 at 23:00; Stop 09/14/19 at 23:29; Status DC Fentanyl Citrate 30 ml @ 0 mls/hr CONT PRN IV SEE PROTOCOL Last administered on 09/16/19at 20:58; Start 09/14/19 at 23:45; Stop 09/17/19 at 16:28; Status DC Midazolam HCl 50 mg/Sodium Chloride 50 ml @ 0 mls/hr CONT PRN IV SEE PROTOCOL Last administered on 09/15/19at 22:10; Start 09/14/19 at 23:45; Stop 09/17/19 at 16:28; Status DC Sodium Bicarbonate (Sodium Bicarb Adult 8.4% Syr) 50 meq 1X ONCE IV Last administered on 09/15/19at 01:25; Start 09/15/19 at 01:00; Stop 09/15/19 at 01:01; Status DC Sodium Chloride 1,000 ml @ 50 mls/hr Q20H IV Last administered on 09/27/19at 23:39; Start 09/16/19 at 02:00; Stop 09/28/19 at 14:58; Status DC Dexmedetomidine HCl 400 mcg/ Sodium Chloride 100 ml @ 0 mls/hr CONT PRN IV AGITATION Last administered on 09/28/19at 04:57; Start 09/16/19 at 08:30; Stop 09/28/19 at 08:55; Status DC Sodium Chloride 500 ml @ 500 mls/hr 1X PRN PRN IV HYPOTENTION; Start 09/16/19 at 08:30 Atropine Sulfate (ATROPINE 0.5mg SYRINGE) 0.5 mg PRN Q5MIN PRN IV SEE COMMENTS; Start 09/16/19 at 08:30; Stop 09/28/19 at 09:42; Status DC Amino Acids/ Glycerin/ Electrolytes 1,000 ml @ 80 mls/hr [id number] IV ; Start 09/16/19 at 10:00; Status UNV Ceftriaxone Sodium (Rocephin) 1 gm Q24H IVP Last administered on 09/20/19at 11:24; Start 09/16/19 at 11:00; Stop 09/21/19 at 10:45; Status DC Amino Acids/ Electrolytes/ Dextrose 1,000 ml @ 80 mls/hr [id number] IV Last administered on 09/23/19at 04:45; Start 09/16/19 at 10:15; Stop 09/23/19 at 09:35; Status DC Magnesium Sulfate/ Dextrose 100 ml @ 100 mls/hr 1X ONCE IV Last administered on 09/16/19at 12:10; Start 09/16/19 at 11:45; Stop 09/16/19 at 12:44; Status DC Potassium Chloride/Water 100 ml @ 100 mls/hr Q1H IV ; Start 09/16/19 at 14:15; Stop 09/16/19 at 14:16; Status DC Potassium Chloride/Water 100 ml @ 100 mls/hr Q1H IV ; Start 09/16/19 at 14:15; Stop 09/16/19 at 14:17; Status DC Magnesium Sulfate 100 ml @ 50 mls/hr DAILY IV Last administered on 09/19/19at 09:10; Start 09/17/19 at 09:00; Stop 09/20/19 at 08:59; Status DC Sodium Phosphate 15 mmol/Sodium Chloride 255 ml @ 62.5 mls/hr PRN 1X PRN IV SEE COMMENTS; Start 09/16/19 at 14:15 Sodium Phosphate 15 mmol/Sodium Chloride 255 ml @ 62.5 mls/hr PRN 1X PRN IV SEE COMMENTS; Start 09/16/19 at 14:15 Potassium Chloride/Water 100 ml @ 100 mls/hr PRN Q1HR PRN IV SEE COMMENTS; Start 09/16/19 at 14:30 Potassium Chloride/Water 100 ml @ 100 mls/hr PRN Q1HR PRN IV SEE COMMENTS; Start 09/16/19 at 14:30 Levetiracetam 500 mg/Dextrose 105 ml @ 420 mls/hr Q12HR IV Last administered on 09/19/19at 10:19; Start 09/16/19 at 21:00; Stop 09/19/19 at 13:06; Status DC Hydralazine HCl (Apresoline Inj) 10 mg PRN Q4HRS PRN IVP ELEVATED BP, SEE COMMENTS Last administered on 09/19/19at 09:09; Start 09/16/19 at 18:00; Stop 09/18 at 09:49; Status DC Magnesium Sulfate/ Dextrose 100 ml @ 100 mls/hr 1X ONCE IV ; Start 09/17/19 at 12:45; Stop 09/17/19 at 13:03; Status DC Albuterol Sulfate (Ventolin Neb Soln) 2.5 mg PRN Q6HRS PRN NEB SHORTNESS OF BREATH Last administered on 09/20/19at 17:27; Start 09/17/19 at 15:45 Budesonide (Pulmicort) 0.5 mg RTBID NEB Last administered on 09/30/19at 07:47; Start 09/17/19 at 20:00 Albuterol Sulfate (Ventolin Neb Soln) 2.5 mg Q6HRS NEB Last administered on 09/30/19at 07:47; Start 09/17/19 at 18:00 Fentanyl Citrate (Fentanyl 2ml Vial) 25 mcg PRN Q3HRS PRN IVP PAIN Last administered on 09/20/19at 08:44; Start 09/17/19 at 17:00 Hydralazine HCl (Apresoline Inj) 10 mg 1X ONCE IVP Last administered on 09/18/19at 12:18; Start 09/18/19 at 12:15; Stop 09/18/19 at 12:16; Status DC Hydralazine HCl (Apresoline Inj) 20 mg PRN Q4HRS PRN IVP ELEVATED BP, SEE COMMENTS Last administered on 09/28/19at 13:39; Start 09/18/19 at 12:15 Potassium Chloride/Water 100 ml @ 100 mls/hr Q1H IV Last administered on 09/19/19at 13:26; Start 09/19/19 at 11:00; Stop 09/19/19 at 12:59; Status DC Haloperidol Lactate (Haldol Inj) 2 mg PRN Q6HRS PRN IVP AGITATION Last a dministered on 09/29/19at 16:36; Start 09/19/19 at 15:00 Fentanyl Citrate 30 ml @ 0 mls/hr CONT PRN IV SEE PROTOCOL Last administered on 09/24/19at 06:37; Start 09/20/19 at 08:45; Stop 09/28/19 at 15:28; Status DC Midazolam HCl 50 mg/Sodium Chloride 50 ml @ 0 mls/hr CONT PRN IV SEE PROTOCOL Last administered on 09/24/19at 06:03; Start 09/20/19 at 08:45; Stop 09/28/19 at 15:29; Status DC Thiamine HCl 100 mg/Dextrose 51 ml @ 102 mls/hr DAILY IV Last administered on 09/28/19at 08:50; Start 09/20/19 at 16:00; Stop 09/28/19 at 11:16; Status DC Piperacillin Sod/ Tazobactam Sod (Zosyn Per Pharmacy) 1 each PRN DAILY PRN MC SEE COMMENTS; Start 09/21/19 at 10:45 Piperacillin Sod/ Tazobactam Sod 3.375 gm/Sodium Chloride 50 ml @ 100 mls/hr Q6HRS IV Last administered on 09/30/19at 06:36; Start 09/21/19 at 12:00 Alteplase, Recombinant (Cathflo For Central Catheter Clearance) 1 mg 1X ONCE INT CAT Last administered on 09/22/19at 02:16; Start 09/22/19 at 02:30; Stop 09/22/19 at 02:31; Status DC Alteplase, Recombinant (Cathflo For Central Catheter Clearance) 1 mg 1X ONCE INT CAT Last administered on 09/22/19at 03:43; Start 09/22/19 at 03:30; Stop 09/22/19 at 03:32; Status DC Polyethylene Glycol (miraLAX PACKET) 17 gm PRN DAILY PRN FT CONSTIPATION; Start 09/22/19 at 08:45; Stop 09/27/19 at 12:35; Status DC Enalaprilat (Vasotec Inj) 1.25 mg PRN Q6HRS PRN IVP HYPERTENSION Last administered on 09/26/19at 11:31; Start 09/26/19 at 05:45 Lorazepam (Ativan) 8 mg PRN Q1HR PRN PO For CIWA 15 or greater; Start 09/26/19 at 13:15 Lorazepam (Ativan Inj) 6 mg PRN Q1HR PRN IV For CIWA 15 or greater Last administered on 09/26/19at 13:31; Start 09/26/19 at 13:15 Diphenhydramine HCl (Benadryl) 25 mg PRN Q15MIN PRN IVP EPS symptoms 2'Haldol admin Last administered on 09/26/19at 13:32; Start 09/26/19 at 13:15 Pantoprazole Sodium (Protonix) 40 mg DAILYAC PO Last administered on 09/30/19at 08:55; Start 09/28/19 at 07:30 Polyethylene Glycol (miraLAX PACKET) 17 gm DAILY PO Last administered on 09/29/19at 09:57; Start 09/27/19 at 13:00 Polyethylene Glycol (miraLAX PACKET) 17 gm PRN DAILY PRN PO CONSTIPATION; Start 09/27/19 at 12:45 Lorazepam (Ativan) 2 mg QID PO Last administered on 09/30/19at 08:55; Start 09/28/19 at 09:00 Lactobacillus Rhamnosus (Culturelle) 1 cap BID PO Last administered on 09/11 04/02at 08:55; Start 09/28/19 at 21:00 Amlodipine Besylate (Norvasc) 5 mg DAILY PO Last administered on 09/30/19at 08:55; Start 09/28/19 at 15:00 Diphenhydramine HCl (Benadryl) 50 mg PRN QHS PRN PO INSOMNIA Last administered on 09/28/19at 21:21; Start 09/28/19 at 21:15 Bisacodyl (Dulcolax Tab) 10 mg PRN DAILY PRN PO CONSTIPATION; Start 09/29/19 at 09:30 Active Scripts Active Protonix (Pantoprazole Sodium) 40 Mg Tablet.dr 40 Mg PO DAILYAC PRN 30 Days Reported Amlodipine Besylate 5 Mg Tablet 5 Mg PO DAILY Proair Hfa Inhaler (Albuterol Sulfate) 8.5 Gm Hfa.aer.ad 1 Puff INH PRN Q4HRS PRN Symbicort 160-4.5 Mcg Inhaler (Budesonide/Formoterol Fumarate) 10.2 Gm Hfa.aer.ad 2 Puff IH BID Theophylline (Theophylline Anhydrous) 400 Mg Tablet.er 300 Mg PO BID Vitals/I & O Vital Sign - Last 24 Hours 09/29/19 09/29/19 09/29/19 09/29/19 11:00 13:13 15:00 19:40 Temp 98.1 97.8 97.5 98.1 97.8 97.5 Pulse 72 78 86 Resp 18 18 20 B/P (MAP) 156/84 (108) 147/90 (109) 157/95 (115) Pulse Ox 94 97 98 O2 Delivery Room Air Room Air Room Air Room Air 09/29/19 09/29/19 09/29/19 09/29/19 19:47 19:47 20:45 23:54 Temp 97.7 97.7 Pulse 70 Resp 20 B/P (MAP) 140/80 (100) Pulse Ox 95 O2 Delivery Room Air Room Air Room Air Room Air 09/30/19 09/30/19 09/30/19 09/30/19 03:47 07:47 07:49 07:51 Temp 97.8 97.7 97.8 97.7 Pulse 68 89 Resp 20 18 B/P (MAP) 137/77 (97) 169/99 (122) Pulse Ox 95 99 95 95 O2 Delivery Room Air Room Air Room Air Room Air 09/30/19 09/30/19 08:00 08:55 Pulse 89 B/P (MAP) 169/99 O2 Delivery Room Air Intake and Output 09/29/19 09/29/19 09/30/19 15:00 23:00 07:00 Intake Total 400 ml 500 ml Output Total 300 ml 600 ml 700 ml Balance -300 ml -200 ml -200 ml Hemodynamically unstable?: No Is patient in severe pain?: No Is NPO status required?: No MENDOZA NICOLE MD Sep 30, 2019 10:59
[2019-09-30 11:00] VITALS: BP 143/97
[2019-09-30 15:08] VITALS: BP 155/88
[2019-09-30 19:00] VITALS: BP 157/93
[2019-09-30] MEDS: diphenhydrAMINE HCL 25 MG CAPSULE PO PRN (22:04)
[2019-09-30 23:24] VITALS: BP 177/99
[2019-10-01] MEDS: PIPERACILLIN/TAZOBACTAM 3.375 GM in IV NORMAL SALINE 50ML 50 ML IV SCH ×3 (00:45→12:00)
[2019-10-01 03:00] VITALS: BP 132/76
[2019-10-01] MEDS: ALBUTEROL SULFATE 2.5 MG/3 ML NEBU. NEB SCH ×2 (07:14→12:10)
[2019-10-01] MEDS: BUDESONIDE 0.5 MG/2 ML NEBU. NEB SCH (07:14)
[2019-10-01 07:37] VITALS: BP 150/104
--- NOTE | 2019-10-01 08:31 | PDOC ---
Subjective: Subjective: Feels fine and wants to go home. Objective: Vital Signs: Vital Signs Date Time Temp Pulse Resp B/P (MAP) Pulse Ox O2 Delivery O2 Flow Rate FiO2 10/01/19 07:37 97.6 70 20 150/104 (119) 96 Room Air 97.6 PE: GEN: NAD LUNGS: CTAB HEART: RRR ABD: NABS, S/ND/NT NEURO/PSYCH: A & O 3 A/P: Alcohol abuse, erosive esophagitis, DU -- DC per primary on PPI. No alcohol. Hemodynamically unstable?: No Is patient in severe pain?: No Is NPO status required?: No MESSI GORE Oct 01, 2019 08:31
--- NOTE | 2019-10-01 08:42 | PDOC ---
PROGRESS NOTES Assessment Problems Medical Problems: (1) GI bleed Status: Acute Metabolic encephalopathy. Off Precedex, on scheduled lorazepam Toxic encephalopathy. Respiratory failure, extubated. Alcohol intoxication, alcohol level 111. Korsakoff Syndrome. Seizure or seizure like episodes, alcohol/withdrawal related. Pancreatitis, recurrent. Right C7 radiculopathy per history. CAD. HTN. KIMBERLY. Tremors. Left eye injury s/p surgery in 2014 Hiccups, better Plan Discharge planing, PT and OT have cleared to go home Scheduled oral Ativan, also on Zyprexa I suggest slow Ativan taper at home, 2 mg times a day for 1 week, 1 mg 4 times a day for 1 week, 1 mg twice a day for 1 week, 1 mg at bedtime for 1 week, then stop Follow-up with psychiatry Haldol as needed for hiccups Physical therapy Treat medical diseases. Alcohol abstinence. Subjective No complaints, wants to go home Objective Vital Signs Date Time Temp Pulse Resp B/P (MAP) Pulse Ox O2 Delivery O2 Flow Rate FiO2 10/01/19 07:37 97.6 70 20 150/104 (119) 96 Room Air 97.6 Intake and Output 10/01/19 07:00 Intake Total 1480 ml Output Total 2350 ml Balance -870 ml Intake Oral 1480 ml Output Urine Total 2350 ml PHYSICAL EXAM Alert, knows location, not date Right people reacts, left pupil large, unreactive EOMI. CN: no focal findings. Muscle tone: normal. Muscle strength: slight movement to pain DTR: 1+ Plantar reflex: silent Gait: not examined in bed. Sensory exam: no abnormal findings. No cerebellar signs elicited. Mild tremulousness Review of Relevant I have reviewed the following items wali (where applicable) has been applied. Labs Laboratory Tests Test 09/29/19 12:12 White Blood Count 10.6 x10^3/uL (4.0-11.0) Red Blood Count 4.15 x10^6/uL (4.30-5.70) Hemoglobin 10.7 g/dL (13.0-17.5) Hematocrit 32.6 % (39.0-53.0) Mean Corpuscular Volume 79 fL (79-100) Mean Corpuscular Hemoglobin 26 pg (25-35) Mean Corpuscular Hemoglobin Concent 33 g/dL (31-37) Red Cell Distribution Width 18.5 % (11.5-14.5) Platelet Count 698 x10^3/uL (140-400) Neutrophils (%) (Auto) 67 % (31-73) Lymphocytes (%) (Auto) 15 % (24-48) Monocytes (%) (Auto) 9 % (0-9) Eosinophils (%) (Auto) 5 % (0-3) Basophils (%) (Auto) 4 % (0-3) Neutrophils # (Auto) 7.1 x10^3/uL (1.8-7.7) Lymphocytes # (Auto) 1.6 x10^3/uL (1.0-4.8) Monocytes # (Auto) 0.9 x10^3/uL (0.0-1.1) Eosinophils # (Auto) 0.5 x10^3/uL (0.0-0.7) Basophils # (Auto) 0.4 x10^3/uL (0.0-0.2) Segmented Neutrophils % 64 % (35-66) Band Neutrophils % 2 % (0-9) Lymphocytes % 15 % (24-48) Monocytes % 13 % (0-10) Eosinophils % 3 % (0-5) Basophils % 3 % (0-3) Toxic Granulation Slight Platelet Estimate Increased (ADEQUATE) Polychromasia Slight Anisocytosis Slight Target Cells Occ Tear Drop Cells Occ Ovalocytes Occ Sodium Level 142 mmol/L (136-145) Potassium Level 4.1 mmol/L (3.5-5.1) Chloride Level 105 mmol/L (98-107) Carbon Dioxide Level 29 mmol/L (21-32) Anion Gap 8 (6-14) Blood Urea Nitrogen 10 mg/dL (8-26) Creatinine 0.9 mg/dL (0.7-1.3) Estimated GFR (Cockcroft-Gault) 92.5 BUN/Creatinine Ratio 11 (6-20) Glucose Level 86 mg/dL (70-99) Calcium Level 8.9 mg/dL (8.5-10.1) Total Bilirubin 0.3 mg/dL (0.2-1.0) Aspartate Amino Transf (AST/SGOT) 24 U/L (15-37) Alanine Aminotransferase (ALT/SGPT) 37 U/L (16-63) Alkaline Phosphatase 53 U/L (46-116) Total Protein 6.4 g/dL (6.4-8.2) Albumin 3.0 g/dL (3.4-5.0) Albumin/Globulin Ratio 0.9 (1.0-1.7) Medications Current Medications Ondansetron HCl (Zofran) 4 mg STK-MED ONCE .ROUTE ; Start 09/14/19 at 17:54; Stop 09/14/19 at 17:54; Status DC Lorazepam (Ativan Inj) 2 mg STK-MED ONCE .ROUTE ; Start 09/14/19 at 17:55; Stop 09/14/19 at 17:55; Status DC Lorazepam (Ativan Inj) 2 mg 1X ONCE IVP Last administered on 09/14/19at 18:05; Start 09/14/19 at 18:00; Stop 09/14/19 at 18:09; Status DC Ondansetron HCl (Zofran) 4 mg 1X ONCE IVP Last administered on 09/14/19at 18:04; Start 09/14/19 at 18:00; Stop 09/14/19 at 18:09; Status DC Pantoprazole Sodium (PROTONIX VIAL for IV PUSH) 40 mg 1X ONCE IVP Last administered on 09/14/19at 18:43; Start 09/14/19 at 18:00; Stop 09/14/19 at 18:09; Status DC Sodium Chloride 1,000 ml @ 1,000 mls/hr 1X ONCE IV Last administered on at 19:10; Start 09/14/19 at 18:00; Stop 09/14/19 at 19:00; Status DC Multivitamins 10 ml/Thiamine HCl 100 mg/Folic Acid 1 mg/Sodium Chloride 1,011.2 ml @ 100 mls/ hr DAILY IV Last administered on 09/18/19at 09:37; Start 09/14/19 at 18:30; Stop 09/18/19 at 19:07; Status DC Lorazepam (Ativan Inj) 2 mg PRN Q1HR PRN IV For CIWA 8-14 Last administered on 10/01/19at 02:00; Start 09/14/19 at 18:30 Lorazepam (Ativan Inj) 4 mg PRN Q1HR PRN IV For CIWA 15 or greater Last administered on 09/28/19at 23:26; Start 09/14/19 at 18:30 Pantoprazole Sodium 80 mg/ Sodium Chloride 100 ml @ 10 mls/hr 1X ONCE IV Last administered on 09/14/19at 18:44; Start 09/14/19 at 18:30; Stop 09/15/19 at 04:29; Status DC Iohexol (Omnipaque 300 Mg/ml) 75 ml 1X ONCE IV ; Start 09/14/19 at 19:00; Stop 09/14/19 at 19:01; Status DC Info (CONTRAST GIVEN -- Rx MONITORING) 1 each PRN DAILY PRN MC SEE COMMENTS; Start 09/14/19 at 19:00; Stop 09/16/19 at 18:59; Status DC Ondansetron HCl (Zofran) 4 mg PRN Q8HRS PRN IV NAUSEA/VOMITING; Start 09/14/19 at 19:30; Stop 09/15/19 at 19:29; Status DC Sodium Chloride 1,000 ml @ 125 mls/hr Q8H IV Last administered on 09/15/19at 15:39; Start 09/14/19 at 19:19; Stop 09/15/19 at 19:18; Status DC Etomidate (Amidate) 20 mg STK-MED ONCE IV ; Start 09/14/19 at 21:22; Stop 09/14/19 at 21:22; Status DC Lidocaine HCl (Lidocaine Pf 2% Vial) 5 ml STK-MED ONCE .ROUTE ; Start 09/14/19 at 21:22; Stop 09/14/19 at 21:22; Status DC Rocuronium [place] (Zemuron) 50 mg STK-MED ONCE .ROUTE ; Start 09/14/19 at 21:23; Stop 09/14/19 at 21:23; Status DC Phenylephrine HCl (PHENYLEPHRINE in 0.9% NACL PF) 1 mg STK-MED ONCE IV ; Start 09/14/19 at 21:24; Stop 09/14/19 at 21:24; Status DC Propofol 100 ml @ 0 mls/hr CONT PRN IV SEE PROTOCOL Last administered on 09/24/19at 09:12; Start 09/14/19 at 22:30; Stop 09/28/19 at 15:28; Status DC Fentanyl Citrate (Fentanyl 2ml Vial) 25 mcg PRN Q1HR PRN IV SEE COMMENTS; Start 09/14/19 at 22:30; Stop 09/15/19 at 06:26; Status DC Fentanyl Citrate (Fentanyl 2ml Vial) 50 mcg PRN Q1HR PRN IV SEE COMMENTS; Start 09/14/19 at 22:30; Stop 09/15/19 at 06:26; Status DC Epinephrine HCl (EPINEPHrine SYRINGE) 1 mg STK-MED ONCE .ROUTE ; Start 09/14/19 at 23:19; Stop 09/14/19 at 23:20; Status DC Pantoprazole Sodium (PROTONIX VIAL for IV PUSH) 40 mg BID IVP Last administered on 09/27/19at 08:15; Start 09/15/19 at 09:00; Stop 09/27/19 at 12:35; Status DC Epinephrine HCl (EPINEPHrine SYRINGE) 1 mg STK-MED ONCE IV Last administered on 09/14/19at 23:00; Start 09/14/19 at 23:00; Stop 09/14/19 at 23:29; Status DC Fentanyl Citrate 30 ml @ 0 mls/hr CONT PRN IV SEE PROTOCOL Last administered on 09/16/19at 20:58; Start 09/14/19 at 23:45; Stop 09/17/19 at 16:28; Status DC Midazolam HCl 50 mg/Sodium Chloride 50 ml @ 0 mls/hr CONT PRN IV SEE PROTOCOL Last administered on 09/15/19at 22:10; Start 09/14/19 at 23:45; Stop 09/17/19 at 16:28; Status DC Sodium Bicarbonate (Sodium Bicarb Adult 8.4% Syr) 50 meq 1X ONCE IV Last administered on 09/15/19at 01:25; Start 09/15/19 at 01:00; Stop 09/15/19 at 01:01; Status DC Sodium Chloride 1,000 ml @ 50 mls/hr Q20H IV Last administered on 09/27/19at 23:39; Start 09/16/19 at 02:00; Stop 09/28/19 at 14:58; Status DC Dexmedetomidine HCl 400 mcg/ Sodium Chloride 100 ml @ 0 mls/hr CONT PRN IV AGITATION Last administered on 09/28/19at 04:57; Start 09/16/19 at 08:30; Stop 09/28/19 at 08:55; Status DC Sodium Chloride 500 ml @ 500 mls/hr 1X PRN PRN IV HYPOTENTION; Start 09/16/19 at 08:30 Atropine Sulfate (ATROPINE 0.5mg SYRINGE) 0.5 mg PRN Q5MIN PRN IV SEE COMMENTS; Start 09/16/19 at 08:30; Stop 09/28/19 at 09:42; Status DC Amino Acids/ Glycerin/ Electrolytes 1,000 ml @ 80 mls/hr [id number] IV ; Start 09/16/19 at 10:00; Status UNV Ceftriaxone Sodium (Rocephin) 1 gm Q24H IVP Last administered on 09/20/19at 11:24; Start 09/16/19 at 11:00; Stop 09/21/19 at 10:45; Status DC Amino Acids/ Electrolytes/ Dextrose 1,000 ml @ 80 mls/hr [id number] IV Last administered on 09/23/19at 04:45; Start 09/16/19 at 10:15; Stop 09/23/19 at 09:35; Status DC Magnesium Sulfate/ Dextrose 100 ml @ 100 mls/hr 1X ONCE IV Last administered on 09/16/19at 12:10; Start 09/16/19 at 11:45; Stop 09/16/19 at 12:44; Status DC Potassium Chloride/Water 100 ml @ 100 mls/hr Q1H IV ; Start 09/16/19 at 14:15; Stop 09/16/19 at 14:16; Status DC Potassium Chloride/Water 100 ml @ 100 mls/hr Q1H IV ; Start 09/16/19 at 14:15; Stop 09/16/19 at 14:17; Status DC Magnesium Sulfate 100 ml @ 50 mls/hr DAILY IV Last administered on 09/19/19at 09:10; Start 09/17/19 at 09:00; Stop 09/20/19 at 08:59; Status DC Sodium Phosphate 15 mmol/Sodium Chloride 255 ml @ 62.5 mls/hr PRN 1X PRN IV SEE COMMENTS; Start 09/16/19 at 14:15 Sodium Phosphate 15 mmol/Sodium Chloride 255 ml @ 62.5 mls/hr PRN 1X PRN IV SEE COMMENTS; Start 09/16/19 at 14:15 Potassium Chloride/Water 100 ml @ 100 mls/hr PRN Q1HR PRN IV SEE COMMENTS; Start 09/16/19 at 14:30 Potassium Chloride/Water 100 ml @ 100 mls/hr PRN Q1HR PRN IV SEE COMMENTS; Start 09/16/19 at 14:30 Levetiracetam 500 mg/Dextrose 105 ml @ 420 mls/hr Q12HR IV Last administered on 09/19/19at 10:19; Start 09/16/19 at 21:00; Stop 09/19/19 at 13:06; Status DC Hydralazine HCl (Apresoline Inj) 10 mg PRN Q4HRS PRN IVP ELEVATED BP, SEE COMMENTS Last administered on 09/19/19at 09:09; Start 09/16/19 at 18:00; Stop 09/19/19 at 09:49; Status DC Magnesium Sulfate/ Dextrose 100 ml @ 100 mls/hr 1X ONCE IV ; Start 09/17/19 at 12:45; Stop 09/17/19 at 13:03; Status DC Albuterol Sulfate (Ventolin Neb Soln) 2.5 mg PRN Q6HRS PRN NEB SHORTNESS OF BREATH Last administered on 09/20/19at 17:27; Start 09/17/19 at 15:45 Budesonide (Pulmicort) 0.5 mg RTBID NEB Last administered on 10/01/19 07:14; Start 09/17/19 at 20:00 Albuterol Sulfate (Ventolin Neb Soln) 2.5 mg Q6HRS NEB Last administered on 10/01/19at 07:14; Start 09/17/19 at 18:00 Fentanyl Citrate (Fentanyl 2ml Vial) 25 mcg PRN Q3HRS PRN IVP PAIN Last administered on 09/20/19at 08:44; Start 09/17/19 at 17:00 Hydralazine HCl (Apresoline Inj) 10 mg 1X ONCE IVP Last administered on 09/18/19at 12:18; Start 09/18/19 at 12:15; Stop 09/18/19 at 12:16; Status DC Hydralazine HCl (Apresoline Inj) 20 mg PRN Q4HRS PRN IVP ELEVATED BP, SEE COMMENTS Last administered on 09/28/19at 13:39; Start 09/18/19 at 12:15 Potassium Chloride/Water 100 ml @ 100 mls/hr Q1H IV Last administered on 3/8/20at 13:26; Start 09/19/19 at 11:00; Stop 09/19/19 at 12:59; Status DC Haloperidol Lactate (Haldol Inj) 2 mg PRN Q6HRS PRN IVP AGITATION Last administered on 09/29/19at 16:36; Start 09/19/19 at 15:00 Fentanyl Citrate 30 ml @ 0 mls/hr CONT PRN IV SEE PROTOCOL Last administered on 09/24/19at 06:37; Start 09/20/19 at 08:45; Stop 09/28/19 at 15:28; Status DC Midazolam HCl 50 mg/Sodium Chloride 50 ml @ 0 mls/hr CONT PRN IV SEE PROTOCOL Last administered on 09/24/19at 06:03; Start 09/20/19 at 08:45; Stop 09/28/19 at 15:29; Status DC Thiamine HCl 100 mg/Dextrose 51 ml @ 102 mls/hr DAILY IV Last administered on 09/28/19at 08:50; Start 09/20/19 at 16:00; Stop 09/28/19 at 11:16; Status DC Piperacillin Sod/ Tazobactam Sod (Zosyn Per Pharmacy) 1 each PRN DAILY PRN MC SEE COMMENTS; Start 09/21/19 at 10:45 Piperacillin Sod/ Tazobactam Sod 3.375 gm/Sodium Chloride 50 ml @ 100 mls/hr Q6HRS IV Last administered on 10/01/19at 06:50; Start 09/21/19 at 12:00 Alteplase, Recombinant (Cathflo For Central Catheter Clearance) 1 mg 1X ONCE INT CAT Last administered on 09/22/19at 02:16; Start 09/22/19 at 02:30; Stop 09/22/19 at 02:31; Status DC Alteplase, Recombinant (Cathflo For Central Catheter Clearance) 1 mg 1X ONCE INT CAT Last administered on 09/22/19at 03:43; Start 09/22/19 at 03:30; Stop 09/22/19 at 03:32; Status DC Polyethylene Glycol (miraLAX PACKET) 17 gm PRN DAILY PRN FT CONSTIPATION; Start 09/22/19 at 08:45; Stop 09/27/19 at 12:35; Status DC Enalaprilat (Vasotec Inj) 1.25 mg PRN Q6HRS PRN IVP HYPERTENSION Last administered on 09/26/19at 11:31; Start 09/26/19 at 05:45 Lorazepam (Ativan) 8 mg PRN Q1HR PRN PO For CIWA 15 or greater; Start 09/26/19 at 13:15 Lorazepam (Ativan Inj) 6 mg PRN Q1HR PRN IV For CIWA 15 or greater Last administered on 09/26/19at 13:31; Start 09/26/19 at 13:15 Diphenhydramine HCl (Benadryl) 25 mg PRN Q15MIN PRN IVP EPS symptoms 2'Haldol admin Last administered on 09/26/19 13:32; Start 09/26/19 at 13:15 Pantoprazole Sodium (Protonix) 40 mg DAILYAC PO Last administered on 09/30/19 08:55; Start 09/28/19 at 07:30 Polyethylene Glycol (miraLAX PACKET) 17 gm DAILY PO Last administered on 09/29/19at 09:57; Start 09/27/19 at 13:00 Polyethylene Glycol (miraLAX PACKET) 17 gm PRN DAILY PRN PO CONSTIPATION; Start 09/27/19 at 12:45 Lorazepam (Ativan) 2 mg QID PO Last administered on 09/30/19 22:03; Start 09/28/19 at 09:00 Lactobacillus Rhamnosus (Culturelle) 1 cap BID PO Last administered on 09/30/19 22:03; Start 09/28/19 at 21:00 Amlodipine Besylate (Norvasc) 5 mg DAILY PO Last administered on 09/30/19at 08: 55; Start 09/28/19 at 15:00 Diphenhydramine HCl (Benadryl) 50 mg PRN QHS PRN PO INSOMNIA Last administered on 09/30/19at 22:04; Start 09/28/19 at 21:15 Bisacodyl (Dulcolax Tab) 10 mg PRN DAILY PRN PO CONSTIPATION; Start 09/29/19 at 09:30 Active Scripts Active Protonix (Pantoprazole Sodium) 40 Mg Tablet.dr 40 Mg PO DAILYAC PRN 30 Days Reported Amlodipine Besylate 5 Mg Tablet 5 Mg PO DAILY Proair Hfa Inhaler (Albuterol Sulfate) 8.5 Gm Hfa.aer.ad 1 Puff INH PRN Q4HRS PRN Symbicort 160-4.5 Mcg Inhaler (Budesonide/Formoterol Fumarate) 10.2 Gm Hfa.aer.ad 2 Puff IH BID Theophylline (Theophylline Anhydrous) 400 Mg Tablet.er 300 Mg PO BID Vitals/I & O Vital Sign - Last 24 Hours 09/30/19 09/30/19 09/30/19 09/30/19 08:55 11:00 11:36 15:08 Temp 97.6 98.4 97.6 98.4 Pulse 89 90 86 Resp 18 18 B/P (MAP) 169/99 143/97 (112) 155/88 (110) Pulse Ox 95 97 O2 Delivery Room Air Room Air Room Air 09/30/19 09/30/19 09/30/19 09/30/19 17:39 19:00 20:43 22:00 Temp 97.8 97.8 Pulse 73 Resp 16 B/P (MAP) 157/93 (114) Pulse Ox 98 96 O2 Delivery Room Air Room Air Room Air Room Air 09/30/19 10/01/19 10/01/19 10/01/19 23:24 03:00 07:15 07:16 Temp 97.7 97.6 97.7 97.6 Pulse 88 65 Resp 16 16 B/P (MAP) 177/99 (125) 132/76 (94) Pulse Ox 97 95 96 96 O2 Delivery Room Air Room Air Room Air Room Air 10/01/19 07:37 Temp 97.6 97.6 Pulse 70 Resp 20 B/P (MAP) 150/104 (119) Pulse Ox 96 O2 Delivery Room Air Intake and Output 09/30/19 09/30/19 10/01/19 15:00 23:00 07:00 Intake Total 400 ml 880 ml 200 ml Output Total 625 ml 925 ml 800 ml Balance -225 ml -45 ml -600 ml JUANCARLOS CULP MD Oct 01, 2019 08:42
[2019-10-01] MEDS: POLYETHYLENE GLYCOL 3350 17 GM PACKET. PO SCH (09:00)
[2019-10-01] MEDS: LACTOBACILLUS RHAMNOSUS GG 1 CAPSULE. PO SCH (09:06)
[2019-10-01] MEDS: PANTOPRAZOLE 40 MG TABLET.DR. PO SCH (09:06)
[2019-10-01] MEDS: LORazepam 1 MG TABLET PO SCH (09:06)
[2019-10-01] MEDS: amLODIPine BESYLATE 5 MG TABLET PO SCH (09:07)
[2019-10-01 11:20] VITALS: BP 144/92
--- NOTE | 2019-10-01 11:51 | PDOC ---
PROGRESS NOTES Chief Complaint Chief Complaint DISCHARGE DX 0. Resolving respiratory failure (was intubated now extubated for 5 days) 1. acute UGI BLEED 2. severe diffuse hepatic steatosis. 3. Erosive esophagitis, epinephrine injection duodenal ulcer in the first and second portions of duodenum with a visible vessel, status post epinephrine injection. 4. polysubstance abuse, alcohol cocaine and marijuana 5. Electrolyte imbalance 6. Malignant hypertension 7. mild generalized parenchymal atrophy. No acute parenchymal abnormality is seen. No extra-axial fluid collection is noted. No skull fracture is seen. BY CT HEAD 09/13 8. GENERALIZED WEAKNESS 9. 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 11. Seizure or seizure like episodes, alcohol/withdrawal related. PLAN TELE BED PT/OT ATTEND AA DAILY slow Ativan taper at home, 2 mg times a day for 1 week, 1 mg 4 times a day for 1 week, 1 mg twice a day for 1 week, 1 mg at bedtime for 1 week, then stop POOR PROGNOSIS DUE TO POLYSUBSTANCE ABUSE D/C PLANNING 34 MIN Treatment Plan * Therapeutic Exercise * Dynamic Balance Training Frequency of Treatment Expected * 7 visits/week Duration of Treatment Expected * 2 weeks History of Present Illness History of Present Illness 320 2020 Patient seen and examined Chart reviewed Discussed with RN CONFUSED AND SHAKING AT TIMES PT/OT SEEING [id number] Patient seen and examined He is starting to wake up more for the past 48 hours but is still very shaky States he is going to quit drinking when he gets home, although he has told me that in the past Discussed with case management Discussed with RN Chart reviewed [id number] Patient seen and examined He is now extubated Extremely weak and tremulous Chart reviewed Discussed with RN Seems that he needs high-dose benzodiazepines [id number] Patient seen and examined in the ICU He remains on the vent assist control 16/500/40% Eyes are open but he doesn't seem to recognize me Chart reviewed Discussed with RN Still critically ill [id number] Patient seen and examined in the ICU He remains mechanically ventilated with an OG feeds running at 55 mL/h Vent settings as follows assist-control/10/500/40% with 5 of PEEP Chart reviewed Discussed with RN He is critically ill [id number] Patient seen and examined in the ICU He remains critically ill On mechanical ventilation with assist control/16/500/40% Sedated with propofol and fentanyl Has PPN and OG feeds running Chart reviewed Discussed with RN [id number] Patient seen and examined in the ICU once again He remains intubated and on assist-control/16/500/40% with 5 of PEEP Sedated with Precedex Getting TPN and albumin Also on Versed levo fed He is critically ill Discussed with RN Chart reviewed [id number] Patient seen and examined in the ICU He is intubated Assist-control/16/500/60% FiO2 Chart reviewed Discussed with RN Vitals Vitals Vital Signs Date Time Temp Pulse Resp B/P (MAP) Pulse Ox O2 Delivery O2 Flow Rate FiO2 10/01/19 11:20 97.6 81 18 144/92 (109) 96 Room Air 97.6 10/01/19 08:00 12.0 Physical Exam General: Alert, Oriented X3, Cooperative, No acute distress, Other (intermittently confused shaking) Heart: Regular rate, Normal S1, Normal S2 Lungs: Other (rhonchi) Abdomen: Normal bowel sounds, Soft, No tenderness Extremities: No cyanosis, No edema Skin: No rashes Assessment and Plan Assessmemt and Plan Problems Medical Problems: (1) GI bleed Status: Acute Comment Review of Relevant I have reviewed the following items wali (where applicable) has been applied. Labs Laboratory Tests Test 09/29/19 12:12 White Blood Count 10.6 x10^3/uL (4.0-11.0) Red Blood Count 4.15 x10^6/uL (4.30-5.70) Hemoglobin 10.7 g/dL (13.0-17.5) Hematocrit 32.6 % (39.0-53.0) Mean Corpuscular Volume 79 fL (79-100) Mean Corpuscular Hemoglobin 26 pg (25-35) Mean Corpuscular Hemoglobin Concent 33 g/dL (31-37) Red Cell Distribution Width 18.5 % (11.5-14.5) Platelet Count 698 x10^3/uL (140-400) Neutrophils (%) (Auto) 67 % (31-73) Lymphocytes (%) (Auto) 15 % (24-48) Monocytes (%) (Auto) 9 % (0-9) Eosinophils (%) (Auto) 5 % (0-3) Basophils (%) (Auto) 4 % (0-3) Neutrophils # (Auto) 7.1 x10^3/uL (1.8-7.7) Lymphocytes # (Auto) 1.6 x10^3/uL (1.0-4.8) Monocytes # (Auto) 0.9 x10^3/uL (0.0-1.1) Eosinophils # (Auto) 0.5 x10^3/uL (0.0-0.7) Basophils # (Auto) 0.4 x10^3/uL (0.0-0.2) Segmented Neutrophils % 64 % (35-66) Band Neutrophils % 2 % (0-9) Lymphocytes % 15 % (24-48) Monocytes % 13 % (0-10) Eosinophils % 3 % (0-5) Basophils % 3 % (0-3) Toxic Granulation Slight Platelet Estimate Increased (ADEQUATE) Polychromasia Slight Anisocytosis Slight Target Cells Occ Tear Drop Cells Occ Ovalocytes Occ Sodium Level 142 mmol/L (136-145) Potassium Level 4.1 mmol/L (3.5-5.1) Chloride Level 105 mmol/L (98-107) Carbon Dioxide Level 29 mmol/L (21-32) Anion Gap 8 (6-14) Blood Urea Nitrogen 10 mg/dL (8-26) Creatinine 0.9 mg/dL (0.7-1.3) Estimated GFR (Cockcroft-Gault) 92.5 BUN/Creatinine Ratio 11 (6-20) Glucose Level 86 mg/dL (70-99) Calcium Level 8.9 mg/dL (8.5-10.1) Total Bilirubin 0.3 mg/dL (0.2-1.0) Aspartate Amino Transf (AST/SGOT) 24 U/L (15-37) Alanine Aminotransferase (ALT/SGPT) 37 U/L (16-63) Alkaline Phosphatase 53 U/L (46-116) Total Protein 6.4 g/dL (6.4-8.2) Albumin 3.0 g/dL (3.4-5.0) Albumin/Globulin Ratio 0.9 (1.0-1.7) Medications Current Medications Ondansetron HCl (Zofran) 4 mg STK-MED ONCE .ROUTE ; Start 09/14/19 at 17:54; Stop 09/14/19 at 17:54; Status DC Lorazepam (Ativan Inj) 2 mg STK-MED ONCE .ROUTE ; Start 09/14/19 at 17:55; Stop 09/14/19 at 17:55; Status DC Lorazepam (Ativan Inj) 2 mg 1X ONCE IVP Last administered on 09/14/19at 18:05; Start 09/14/19 at 18:00; Stop 09/14/19 at 18:09; Status DC Ondansetron HCl (Zofran) 4 mg 1X ONCE IVP Last administered on 09/14/19at 18:04; Start 09/14/19 at 18:00; Stop 09/14/19 at 18:09; Status DC Pantoprazole Sodium (PROTONIX VIAL for IV PUSH) 40 mg 1X ONCE IVP Last administered on 09/14/19at 18:43; Start 09/14/19 at 18:00; Stop 09/14/19 at 18:09; Status DC Sodium Chloride 1,000 ml @ 1,000 mls/hr 1X ONCE IV Last administered on 09/14/19at 19:10; Start 09/14/19 at 18:00; Stop 09/14/19 at 19:00; Status DC Multivitamins 10 ml/Thiamine HCl 100 mg/Folic Acid 1 mg/Sodium Chloride 1,011.2 ml @ 100 mls/ hr DAILY IV Last administered on 09/18/19at 09:37; Start 09/14/19 at 18:30; Stop 09/18/19 at 19:07; Status DC Lorazepam (Ativan Inj) 2 mg PRN Q1HR PRN IV For CIWA 8-14 Last administered on 10/01/19at 02:00; Start 09/14/19 at 18:30 Lorazepam (Ativan Inj) 4 mg PRN Q1HR PRN IV For CIWA 15 or greater Last administered on 09/28/19at 23:26; Start 09/14/19 at 18:30 Pantoprazole Sodium 80 mg/ Sodium Chloride 100 ml @ 10 mls/hr 1X ONCE IV Last administered on 09/14/19at 18:44; Start 09/14/19 at 18:30; Stop 09/15/19 at 04:29; Status DC Iohexol (Omnipaque 300 Mg/ml) 75 ml 1X ONCE IV ; Start 09/14/19 at 19:00; Stop 09/14/19 at 19:01; Status DC Info (CONTRAST GIVEN -- Rx MONITORING) 1 each PRN DAILY PRN MC SEE COMMENTS; Start 09/14/19 at 19:00; Stop 09/16/19 at 18:59; Status DC Ondansetron HCl (Zofran) 4 mg PRN Q8HRS PRN IV NAUSEA/VOMITING; Start 09/14/19 at 19:30; Stop 09/15/19 at 19:29; Status DC Sodium Chloride 1,000 ml @ 125 mls/hr Q8H IV Last administered on 09/15/19at 15:39; Start 09/14/19 at 19:19; Stop 09/15/19 at 19:18; Status DC Etomidate (Amidate) 20 mg STK-MED ONCE IV ; Start 09/14/19 at 21:22; Stop 09/14/19 at 21:22; Status DC Lidocaine HCl (Lidocaine Pf 2% Vial) 5 ml STK-MED ONCE .ROUTE ; Start 09/14/19 at 21:22; Stop 09/14/19 at 21:22; Status DC Rocuronium [place] (Zemuron) 50 mg STK-MED ONCE .ROUTE ; Start 09/14/19 at 21:23; Stop 09/14/19 at 21:23; Status DC Phenylephrine HCl (PHENYLEPHRINE in 0.9% NACL PF) 1 mg STK-MED ONCE IV ; Start 09/14/19 at 21:24; Stop 09/14/19 at 21:24; Status DC Propofol 100 ml @ 0 mls/hr CONT PRN IV SEE PROTOCOL Last administered on 09/24/19at 09:12; Start 09/14/19 at 22:30; Stop 09/28/19 at 15:28; Status DC Fentanyl Citrate (Fentanyl 2ml Vial) 25 mcg PRN Q1HR PRN IV SEE COMMENTS; Sta rt 09/14/19 at 22:30; Stop 09/15/19 at 06:26; Status DC Fentanyl Citrate (Fentanyl 2ml Vial) 50 mcg PRN Q1HR PRN IV SEE COMMENTS; Start 09/14/19 at 22:30; Stop 09/15/19 at 06:26; Status DC Epinephrine HCl (EPINEPHrine SYRINGE) 1 mg STK-MED ONCE .ROUTE ; Start 09/14/19 at 23:19; Stop 09/14/19 at 23:20; Status DC Pantoprazole Sodium (PROTONIX VIAL for IV PUSH) 40 mg BID IVP Last administered on 09/27/19at 08:15; Start 09/15/19 at 09:00; Stop 09/27/19 at 12:35; Status DC Epinephrine HCl (EPINEPHrine SYRINGE) 1 mg STK-MED ONCE IV Last administered on 09/14/19at 23:00; Start 09/14/19 at 23:00; Stop 09/14/19 at 23:29; Status DC Fentanyl Citrate 30 ml @ 0 mls/hr CONT PRN IV SEE PROTOCOL Last administered on 09/16/19at 20:58; Start 09/14/19 at 23:45; Stop 09/17/19 at 16:28; Status DC Midazolam HCl 50 mg/Sodium Chloride 50 ml @ 0 mls/hr CONT PRN IV SEE PROTOCOL Last administered on 09/15/19at 22:10; Start 09/14/19 at 23:45; Stop 09/17/19 at 16:28; Status DC Sodium Bicarbonate (Sodium Bicarb Adult 8.4% Syr) 50 meq 1X ONCE IV Last administered on 09/15/19at 01:25; Start 09/15/19 at 01:00; Stop 09/15/19 at 01:01; Status DC Sodium Chloride 1,000 ml @ 50 mls/hr Q20H IV Last administered on 09/27/19at 23:39; Start 09/16/19 at 02:00; Stop 09/28/19 at 14:58; Status DC Dexmedetomidine HCl 400 mcg/ Sodium Chloride 100 ml @ 0 mls/hr CONT PRN IV AGITATION Last administered on 09/28/19at 04:57; Start 09/16/19 at 08:30; Stop 09/28/19 at 08:55; Status DC Sodium Chloride 500 ml @ 500 mls/hr 1X PRN PRN IV HYPOTENTION; Start 09/16/19 at 08:30 Atropine Sulfate (ATROPINE 0.5mg SYRINGE) 0.5 mg PRN Q5MIN PRN IV SEE COMMENTS; Start 09/16/19 at 08:30; Stop 09/28/19 at 09:42; Status DC Amino Acids/ Glycerin/ Electrolytes 1,000 ml @ 80 mls/hr [id number] IV ; Start 09/16/19 at 10:00; Status UNV Ceftriaxone Sodium (Rocephin) 1 gm Q24H IVP Last administered on 09/20/19at 11:24; Start 09/16/19 at 11:00; Stop 09/21/19 at 10:45; Status DC Amino Acids/ Electrolytes/ Dextrose 1,000 ml @ 80 mls/hr [id number] IV Last administered on 09/23/19at 04:45; Start 09/16/19 at 10:15; Stop 09/23/19 at 09:35; Status DC Magnesium Sulfate/ Dextrose 100 ml @ 100 mls/hr 1X ONCE IV Last administered on 09/16/19at 12:10; Start 09/16/19 at 11:45; Stop 09/16/19 at 12:44; Status DC Potassium Chloride/Water 100 ml @ 100 mls/hr Q1H IV ; Start 09/16/19 at 14:15; Stop 09/16/19 at 14:16; Status DC Potassium Chloride/Water 100 ml @ 100 mls/hr Q1H IV ; Start 09/16/19 at 14:15; Stop 09/16/19 at 14:17; Status DC Magnesium Sulfate 100 ml @ 50 mls/hr DAILY IV Last administered on 09/19/19at 09:10; Start 09/17/19 at 09:00; Stop 09/20/19 at 08:59; Status DC Sodium Phosphate 15 mmol/Sodium Chloride 255 ml @ 62.5 mls/hr PRN 1X PRN IV SEE COMMENTS; Start 09/16/19 at 14:15 Sodium Phosphate 15 mmol/Sodium Chloride 255 ml @ 62.5 mls/hr PRN 1X PRN IV SEE COMMENTS; Start 09/16/19 at 14:15 Potassium Chloride/Water 100 ml @ 100 mls/hr PRN Q1HR PRN IV SEE COMMENTS; Start 09/16/19 at 14:30 Potassium Chloride/Water 100 ml @ 100 mls/hr PRN Q1HR PRN IV SEE COMMENTS; Start 09/16/19 at 14:30 Levetiracetam 500 mg/Dextrose 105 ml @ 420 mls/hr Q12HR IV Last administered on 09/19/19at 10:19; Start 09/16/19 at 21:00; Stop 09/19/19 at 13:06; Status DC Hydralazine HCl (Apresoline Inj) 10 mg PRN Q4HRS PRN IVP ELEVATED BP, SEE COMMENTS Last administered on 09/19/19 09:09; Start 09/16/19 at 18:00; Stop 09/19/19 at 09:49; Status DC Magnesium Sulfate/ Dextrose 100 ml @ 100 mls/hr 1X ONCE IV ; Start 09/17/19 at 12:45; Stop 09/17/19 at 13:03; Status DC Albuterol Sulfate (Ventolin Neb Soln) 2.5 mg PRN Q6HRS PRN NEB SHORTNESS OF BREATH Last administered on 09/20/19at 17:27; Start 09/17/19 at 15:45 Budesonide (Pulmicort) 0.5 mg RTBID NEB Last administered on 10/01/19 07:14; Start 09/17/19 at 20:00 Albuterol Sulfate (Ventolin Neb Soln) 2.5 mg Q6HRS NEB Last administered on 10/01/19at 07:14; Start 09/17/19 at 18:00 Fentanyl Citrate (Fentanyl 2ml Vial) 25 mcg PRN Q3HRS PRN IVP PAIN Last administered on 09/20/19at 08:44; Start 09/17/19 at 17:00 Hydralazine HCl (Apresoline Inj) 10 mg 1X ONCE IVP Last administered on 09/18/19at 12:18; Start 09/18/19 at 12:15; Stop 09/18/19 at 12:16; Status DC Hydralazine HCl (Apresoline Inj) 20 mg PRN Q4HRS PRN IVP ELEVATED BP, SEE COMMENTS Last administered on 09/28/19at 13:39; Start 09/18/19 at 12:15 Potassium Chloride/Water 100 ml @ 100 mls/hr Q1H IV Last administered on 09/19/19at 13:26; Start 09/19/19 at 11:00; Stop 09/19/19 at 12:59; Status DC Haloperidol Lactate (Haldol Inj) 2 mg PRN Q6HRS PRN IVP AGITATION Last administered on 09/29/19at 16:36; Start 09/19/19 at 15:00 Fentanyl Citrate 30 ml @ 0 mls/hr CONT PRN IV SEE PROTOCOL Last administered on 09/24/19at 06:37; Start 09/20/19 at 08:45; Stop 09/28/19 at 15:28; Status DC Midazolam HCl 50 mg/Sodium Chloride 50 ml @ 0 mls/hr CONT PRN IV SEE PROTOCOL Last administered on 09/24/19at 06:03; Start 09/20/19 at 08:45; Stop 09/28/19 at 15:29; Status DC Thiamine HCl 100 mg/Dextrose 51 ml @ 102 mls/hr DAILY IV Last administered on 09/28/19at 08:50; Start 09/20/19 at 16:00; Stop 09/28/19 at 11:16; Status DC Piperacillin Sod/ Tazobactam Sod (Zosyn Per Pharmacy) 1 each PRN DAILY PRN MC SEE COMMENTS; Start 09/21/19 at 10:45 Piperacillin Sod/ Tazobactam Sod 3.375 gm/Sodium Chloride 50 ml @ 100 mls/hr Q6 HRS IV Last administered on 10/01/19at 06:50; Start 09/21/19 at 12:00 Alteplase, Recombinant (Cathflo For Central Catheter Clearance) 1 mg 1X ONCE INT CAT Last administered on 09/22/19at 02:16; Start 09/22/19 at 02:30; Stop 09/22/19 at 02:31; Status DC Alteplase, Recombinant (Cathflo For Central Catheter Clearance) 1 mg 1X ONCE INT CAT Last administered on 09/22/19at 03:43; Start 09/22/19 at 03:30; Stop 09/22/19 at 03:32; Status DC Polyethylene Glycol (miraLAX PACKET) 17 gm PRN DAILY PRN FT CONSTIPATION; Start 09/22/19 at 08:45; Stop 09/27/19 at 12:35; Status DC Enalaprilat (Vasotec Inj) 1.25 mg PRN Q6HRS PRN IVP HYPERTENSION- 2ND CHOICE Last administered on 09/26/19at 11:31; Start 09/26/19 at 05:45 Lorazepam (Ativan) 8 mg PRN Q1HR PRN PO For CIWA 15 or greater; Start 09/26/19 at 13:15 Lorazepam (Ativan Inj) 6 mg PRN Q1HR PRN IV For CIWA 15 or greater Last administered on 09/26/19at 13:31; Start 09/26/19 at 13:15 Diphenhydramine HCl (Benadryl) 25 mg PRN Q15MIN PRN IVP EPS symptoms 2'Haldol admin Last administered on 09/26/19at 13:32; Start 09/26/19 at 13:15 Pantoprazole Sodium (Protonix) 40 mg DAILYAC PO Last administered on 10/01/19 09:06; Start 09/28/19 at 07:30 Polyethylene Glycol (miraLAX PACKET) 17 gm DAILY PO Last administered on 09/29/19at 09:57; Start 09/27/19 at 13:00 Polyethylene Glycol (miraLAX PACKET) 17 gm PRN DAILY PRN PO CONSTIPATION- 1ST CHOICE; Start 09/27/19 at 12:45 Lorazepam (Ativan) 2 mg QID PO Last administered on 10/01/19at 09:06; Start 09/28/19 at 09:00 Lactobacillus Rhamnosus (Culturelle) 1 cap BID PO Last administered on 10/01/19 09:06; Start 09/28/19 at 21:00 Amlodipine Besylate (Norvasc) 5 mg DAILY PO Last administered on 10/01/19at 09:07; Start 09/28/19 at 15:00 Diphenhydramine HCl (Benadryl) 50 mg PRN QHS PRN PO INSOMNIA Last administered on 09/30/19at 22:04; Start 09/28/19 at 21:15 Bisacodyl (Dulcolax Tab) 10 mg PRN DAILY PRN PO CONSTIPATION; Start 09/29/19 at 09:30 Active Scripts Active Protonix (Pantoprazole Sodium) 40 Mg Tablet.dr 40 Mg PO DAILYAC PRN 30 Days Reported Amlodipine Besylate 5 Mg Tablet 5 Mg PO DAILY Proair Hfa Inhaler (Albuterol Sulfate) 8.5 Gm Hfa.aer.ad 1 Puff INH PRN Q4HRS PRN Symbicort 160-4.5 Mcg Inhaler (Budesonide/Formoterol Fumarate) 10.2 Gm Hfa.aer.ad 2 Puff IH BID Theophylline (Theophylline Anhydrous) 400 Mg Tablet.er 300 Mg PO BID Vitals/I & O Vital Sign - Last 24 Hours 09/30/19 09/30/19 09/30/19 09/30/19 15:08 17:39 19:00 20:43 Temp 98.4 97.8 98.4 97.8 Pulse 86 73 Resp 18 16 B/P (MAP) 155/88 (110) 157/93 (114) Pulse Ox 97 98 96 O2 Delivery Room Air Room Air Room Air Room Air 09/30/19 09/30/19 10/01/19 10/01/19 22:00 23:24 03:00 07:15 Temp 97.7 97.6 97.7 97.6 Pulse 88 65 Resp 16 16 B/P (MAP) 177/99 (125) 132/76 (94) Pulse Ox 97 95 96 O2 Delivery Room Air Room Air Room Air Room Air 10/01/19 10/01/19 10/01/19 10/01/19 07:16 07:37 08:00 09:07 Temp 97.6 97.6 Pulse 70 70 Resp 20 B/P (MAP) 150/104 (119) 150/104 Pulse Ox 96 96 O2 Delivery Room Air Room Air Room Air O2 Flow Rate 12.0 10/01/19 11:20 Temp 97.6 97.6 Pulse 81 Resp 18 B/P (MAP) 144/92 (109) Pulse Ox 96 O2 Delivery Room Air Intake and Output 09/30/19 09/30/19 10/01/19 15:00 23:00 07:00 Intake Total 400 ml 880 ml 200 ml Output Total 625 ml 925 ml 800 ml Balance -225 ml -45 ml -600 ml Hemodynamically unstable?: No Is patient in severe pain?: No Is NPO status required?: No MENDOZA NICOLE MD Oct 01, 2019 11:50
--- NOTE | 2019-10-01 12:05 | PDOC3 ---
Discharge Summary Date of Admission: Sep 15, 2019 Date of Discharge: Oct 01, 2019 Follow-Up: 1-2 days Admitting Diagnosis comment: DISCHARGE DX 0. Resolving respiratory failure (was intubated now extubated for 5 days) 1. acute UGI BLEED 2. severe diffuse hepatic steatosis. 3. Erosive esophagitis, epinephrine injection duodenal ulcer in the first and second portions of duodenum with a visible vessel, status post epinephrine injection. 4. polysubstance abuse, alcohol cocaine and marijuana 5. Electrolyte imbalance 6. Malignant hypertension 7. mild generalized parenchymal atrophy. No acute parenchymal abnormality is seen. No extra-axial fluid collection is noted. No skull fracture is seen. BY CT HEAD 09/13 8. GENERALIZED WEAKNESS 9. 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 11. Seizure or seizure like episodes, alcohol/withdrawal related. PLAN TELE BED PT/OT ATTEND AA DAILY slow Ativan taper at home, 2 mg times a day for 1 week, 1 mg 4 times a day for 1 week, 1 mg twice a day for 1 week, 1 mg at bedtime for 1 week, then stop POOR PROGNOSIS DUE TO POLYSUBSTANCE ABUSE D/C PLANNING 34 MIN HOME HEALTH Treatment Plan * Therapeutic Exercise * Dynamic Balance Training Frequency of Treatment Expected * 7 visits/week Duration of Treatment Expected * 2 weeks History of Present Illness History of Present Illness [id number] Patient seen and examined Chart reviewed Discussed with RN CONFUSED AND SHAKING AT TIMES PT/OT SEEING [id number] Patient seen and examined He is starting to wake up more for the past 48 hours but is still very shaky States he is going to quit drinking when he gets home, although he has told me that in the past Discussed with case management Discussed with RN Chart reviewed [id number] Patient seen and examined He is now extubated Extremely weak and tremulous Chart reviewed Discussed with RN Seems that he needs high-dose benzodiazepines [id number] Patient seen and examined in the ICU He remains on the vent assist control 16/500/40% Eyes are open but he doesn't seem to recognize me Chart reviewed Discussed with RN Still critically ill [id number] Patient seen and examined in the ICU He remains mechanically ventilated with an OG feeds running at 55 mL/h Vent settings as follows assist-control/10/500/40% with 5 of PEEP Chart reviewed Discussed with RN He is critically ill [id number] Patient seen and examined in the ICU He remains critically ill On mechanical ventilation with assist control/16/500/40% Sedated with propofol and fentanyl Has PPN and OG feeds running Chart reviewed Discussed with RN [id number] Patient seen and examined in the ICU once again He remains intubated and on assist-control/16/500/40% with 5 of PEEP Sedated with Precedex Getting TPN and albumin Also on Versed levo fed He is critically ill Discussed with RN Chart reviewed [id number] Patient seen and examined in the ICU He is intubated Assist-control/16/500/60% FiO2 Chart reviewed Discussed with RN Vitals Vitals Vital Signs Date Time Temp Pulse Resp B/P (MAP) Pulse Ox O2 Delivery O2 Flow Rate FiO2 10/01/19 11:20 97.6 81 18 144/92 (109) 96 Room Air 97.6 10/01/19 08:00 12.0 Physical Exam General: Alert, Oriented X3, Cooperative, No acute distress, Other (NO shaking) Heart: Regular rate, Normal S1, Normal S2 Lungs: Other CTA Abdomen: Normal bowel sounds, Soft, No tenderness Extremities: No cyanosis, No edema Skin: No rashes FINAL DIAGNOSIS Problems Medical Problems: (1) GI bleed Status: Acute Brief Hospital Course Mr. Osborn is a 44 old [sex] who presented with [ SEVERE ALCOHOL ABUSE, GI BLEEDING ] CONDITION AT DISCHARGE: Improved Discharge Medications Current Medications Ondansetron HCl (Zofran) 4 mg STK-MED ONCE .ROUTE ; Start 09/14/19 at 17:54; Stop 09/14/19 at 17:54; Status DC Lorazepam (Ativan Inj) 2 mg STK-MED ONCE .ROUTE ; Start 09/14/19 at 17:55; Stop 09/14/19 at 17:55; Status DC Lorazepam (Ativan Inj) 2 mg 1X ONCE IVP Last administered on 09/14/19at 18:05; Start 09/14/19 at 18:00; Stop 09/14/19 at 18:09; Status DC Ondansetron HCl (Zofran) 4 mg 1X ONCE IVP Last administered on 09/14/19at 18:04; Start 09/14/19 at 18:00; Stop 09/14/19 at 18:09; Status DC Pantoprazole Sodium (PROTONIX VIAL for IV PUSH) 40 mg 1X ONCE IVP Last adminis tered on 09/14/19at 18:43; Start 09/14/19 at 18:00; Stop 09/14/19 at 18:09; Status DC Sodium Chloride 1,000 ml @ 1,000 mls/hr 1X ONCE IV Last administered on 09/14/19at 19:10; Start 09/14/19 at 18:00; Stop 09/14/19 at 19:00; Status DC Multivitamins 10 ml/Thiamine HCl 100 mg/Folic Acid 1 mg/Sodium Chloride 1,011.2 ml @ 100 mls/ hr DAILY IV Last administered on 09/18/19at 09:37; Start 09/14/19 at 18:30; Stop 09/18/19 at 19:07; Status DC Lorazepam (Ativan Inj) 2 mg PRN Q1HR PRN IV For CIWA 8-14 Last administered on 10/01/19at 02:00; Start 09/14/19 at 18:30 Lorazepam (Ativan Inj) 4 mg PRN Q1HR PRN IV For CIWA 15 or greater Last administered on 09/28/19at 23:26; Start 09/14/19 at 18:30 Pantoprazole Sodium 80 mg/ Sodium Chloride 100 ml @ 10 mls/hr 1X ONCE IV Last administered on 09/14/19at 18:44; Start 09/14/19 at 18:30; Stop 09/15/19 at 04:29; Status DC Iohexol (Omnipaque 300 Mg/ml) 75 ml 1X ONCE IV ; Start 09/14/19 at 19:00; Stop 09/14/19 at 19:01; Status DC Info (CONTRAST GIVEN -- Rx MONITORING) 1 each PRN DAILY PRN MC SEE COMMENTS; Start 09/14/19 at 19:00; Stop 09/16/19 at 18:59; Status DC Ondansetron HCl (Zofran) 4 mg PRN Q8HRS PRN IV NAUSEA/VOMITING; Start 09/14/19 at 19:30; Stop 09/15/19 at 19:29; Status DC Sodium Chloride 1,000 ml @ 125 mls/hr Q8H IV Last administered on 09/15/19at 15:39; Start 09/14/19 at 19:19; Stop 09/15/19 at 19:18; Status DC Etomidate (Amidate) 20 mg STK-MED ONCE IV ; Start 09/14/19 at 21:22; Stop 09/14/19 at 21:22; Status DC Lidocaine HCl (Lidocaine Pf 2% Vial) 5 ml STK-MED ONCE .ROUTE ; Start 09/14/19 at 21:22; Stop 09/14/19 at 21:22; Status DC Rocuronium [place] (Zemuron) 50 mg STK-MED ONCE .ROUTE ; Start 09/14/19 at 21:23; Stop 09/14/19 at 21:23; Status DC Phenylephrine HCl (PHENYLEPHRINE in 0.9% NACL PF) 1 mg STK-MED ONCE IV ; Start 09/14/19 at 21:24; Stop 09/14/19 at 21:24; Status DC Propofol 100 ml @ 0 mls/hr CONT PRN IV SEE PROTOCOL Last administered on 09/24/19at 09:12; Start 09/14/19 at 22:30; Stop 09/28/19 at 15:28; Status DC Fentanyl Citrate (Fentanyl 2ml Vial) 25 mcg PRN Q1HR PRN IV SEE COMMENTS; Start 09/14/19 at 22:30; Stop 09/15/19 at 06:26; Status DC Fentanyl Citrate (Fentanyl 2ml Vial) 50 mcg PRN Q1HR PRN IV SEE COMMENTS; Start 09/14/19 at 22:30; Stop 09/15/19 at 06:26; Status DC Epinephrine HCl (EPINEPHrine SYRINGE) 1 mg STK-MED ONCE .ROUTE ; Start 09/14/19 at 23:19; Stop 09/14/19 at 23:20; Status DC Pantoprazole Sodium (PROTONIX VIAL for IV PUSH) 40 mg BID IVP Last administered on 09/27/19at 08:15; Start 09/15/19 at 09:00; Stop 09/27/19 at 12:35; Status DC Epinephrine HCl (EPINEPHrine SYRINGE) 1 mg STK-MED ONCE IV Last administered on 09/14/19at 23:00; Start 09/14/19 at 23:00; Stop 09/14/19 at 23:29; Status DC Fentanyl Citrate 30 ml @ 0 mls/hr CONT PRN IV SEE PROTOCOL Last administered on 09/16/19at 20:58; Start 09/14/19 at 23:45; Stop 09/17/19 at 16:28; Status DC Midazolam HCl 50 mg/Sodium Chloride 50 ml @ 0 mls/hr CONT PRN IV SEE PROTOCOL Last administered on 09/15/19at 22:10; Start 09/14/19 at 23:45; Stop 09/17/19 at 16:28; Status DC Sodium Bicarbonate (Sodium Bicarb Adult 8.4% Syr) 50 meq 1X ONCE IV Last administered on 09/15/19at 01:25; Start 09/15/19 at 01:00; Stop 09/15/19 at 01:01; Status DC Sodium Chloride 1,000 ml @ 50 mls/hr Q20H IV Last administered on 09/27/19at 23:39; Start 09/16/19 at 02:00; Stop 09/28/19 at 14:58; Status DC Dexmedetomidine HCl 400 mcg/ Sodium Chloride 100 ml @ 0 mls/hr CONT PRN IV AGITATION Last administered on 09/28/19at 04:57; Start 09/16/19 at 08:30; Stop 09/28/19 at 08:55; Status DC Sodium Chloride 500 ml @ 500 mls/hr 1X PRN PRN IV HYPOTENTION; Start 09/16/19 at 08:30 Atropine Sulfate (ATROPINE 0.5mg SYRINGE) 0.5 mg PRN Q5MIN PRN IV SEE COMMENTS; Start 09/16/19 at 08:30; Stop 09/28/19 at 09:42; Status DC Amino Acids/ Glycerin/ Electrolytes 1,000 ml @ 80 mls/hr [id number] IV ; Start 09/16/19 at 10:00; Status UNV Ceftriaxone Sodium (Rocephin) 1 gm Q24H IVP Last administered on 09/20/19at 11:24; Start 09/16/19 at 11:00; Stop 09/21/19 at 10:45; Status DC Amino Acids/ Electrolytes/ Dextrose 1,000 ml @ 80 mls/hr [id number] IV Last administered on 09/23/19at 04:45; Start 09/16/19 at 10:15; Stop 09/23/19 at 09:35; Status DC Magnesium Sulfate/ Dextrose 100 ml @ 100 mls/hr 1X ONCE IV Last administered on 09/16/19at 12:10; Start 09/16/19 at 11:45; Stop 09/16/19 at 12:44; Status DC Potassium Chloride/Water 100 ml @ 100 mls/hr Q1H IV ; Start 09/16/19 at 14:15; Stop 09/16/19 at 14:16; Status DC Potassium Chloride/Water 100 ml @ 100 mls/hr Q1H IV ; Start 09/16/19 at 14:15; Stop 09/16/19 at 14:17; Status DC Magnesium Sulfate 100 ml @ 50 mls/hr DAILY IV Last administered on 09/19/19at 09:10; Start 09/17/19 at 09:00; Stop 09/20/19 at 08:59; Status DC Sodium Phosphate 15 mmol/Sodium Chloride 255 ml @ 62.5 mls/hr PRN 1X PRN IV SEE COMMENTS; Start 09/16/19 at 14:15 Sodium Phosphate 15 mmol/Sodium Chloride 255 ml @ 62.5 mls/hr PRN 1X PRN IV SEE COMMENTS; Start 09/16/19 at 14:15 Potassium Chloride/Water 100 ml @ 100 mls/hr PRN Q1HR PRN IV SEE COMMENTS; Start 09/16/19 at 14:30 Potassium Chloride/Water 100 ml @ 100 mls/hr PRN Q1HR PRN IV SEE COMMENTS; Start 09/16/19 at 14:30 Levetiracetam 500 mg/Dextrose 105 ml @ 420 mls/hr Q12HR IV Last administered on 09/19/19at 10:19; Start 09/16/19 at 21:00; Stop 09/19/19 at 13:06; Status DC Hydralazine HCl (Apresoline Inj) 10 mg PRN Q4HRS PRN IVP ELEVATED BP, SEE COMMENTS Last administered on 09/19/19at 09:09; Start 09/16/19 at 18:00; Stop 09/19/19 at 09:49; Status DC Magnesium Sulfate/ Dextrose 100 ml @ 100 mls/hr 1X ONCE IV ; Start 09/17/19 at 12:45; Stop 09/17/19 at 13:03; Status DC Albuterol Sulfate (Ventolin Neb Soln) 2.5 mg PRN Q6HRS PRN NEB SHORTNESS OF BREATH Last administered on 09/20/19at 17:27; Start 09/17/19 at 15:45 Budesonide (Pulmicort) 0.5 mg RTBID NEB Last administered on 10/01/19at 07:14; Start 09/17/19 at 20:00 Albuterol Sulfate (Ventolin Neb Soln) 2.5 mg Q6HRS NEB Last administered on at 07:14; Start 09/17/19 at 18:00 Fentanyl Citrate (Fentanyl 2ml Vial) 25 mcg PRN Q3HRS PRN IVP PAIN Last administered on 09/20/19at 08:44; Start 09/17/19 at 17:00 Hydralazine HCl (Apresoline Inj) 10 mg 1X ONCE IVP Last administered on 09/18/19at 12:18; Start 09/18/19 at 12:15; Stop 09/18/19 at 12:16; Status DC Hydralazine HCl (Apresoline Inj) 20 mg PRN Q4HRS PRN IVP ELEVATED BP, SEE COMMENTS Last administered on 09/28/19at 13:39; Start 09/18/19 at 12:15 Potassium Chloride/Water 100 ml @ 100 mls/hr Q1H IV Last administered on 09/19/19at 13:26; Start 09/19/19 at 11:00; Stop 09/19/19 at 12:59; Status DC Haloperidol Lactate (Haldol Inj) 2 mg PRN Q6HRS PRN IVP AGITATION Last administered on 09/29/19at 16:36; Start 09/19/19 at 15:00 Fentanyl Citrate 30 ml @ 0 mls/hr CONT PRN IV SEE PROTOCOL Last administered on 09/24/19at 06:37; Start 09/20/19 at 08:45; Stop 09/28/19 at 15:28; Status DC Midazolam HCl 50 mg/Sodium Chloride 50 ml @ 0 mls/hr CONT PRN IV SEE PROTOCOL Last administered on 09/24/19at 06:03; Start 09/20/19 at 08:45; Stop 09/28/19 at 15:29; Status DC Thiamine HCl 100 mg/Dextrose 51 ml @ 102 mls/hr DAILY IV Last administered on 09/28/19at 08:50; Start 09/20/19 at 16:00; Stop 09/28/19 at 11:16; Status DC Piperacillin Sod/ Tazobactam Sod (Zosyn Per Pharmacy) 1 each PRN DAILY PRN MC SEE COMMENTS; Start 09/21/19 at 10:45 Piperacillin Sod/ Tazobactam Sod 3.375 gm/Sodium Chloride 50 ml @ 100 mls/hr Q6HRS IV Last administered on 10/01/19at 06:50; Start 09/21/19 at 12:00 Alteplase, Recombinant (Cathflo For Central Catheter Clearance) 1 mg 1X ONCE INT CAT Last administered on 09/22/19at 02:16; Start 09/22/19 at 02:30; Stop 09/22/19 at 02:31; Status DC Alteplase, Recombinant (Cathflo For Central Catheter Clearance) 1 mg 1X ONCE INT CAT Last administered on 09/22/19at 03:43; Start 09/22/19 at 03:30; Stop 09/22/19 at 03:32; Status DC Polyethylene Glycol (miraLAX PACKET) 17 gm PRN DAILY PRN FT CONSTIPATION; Start 09/22/19 at 08:45; Stop 09/27/19 at 12:35; Status DC Enalaprilat (Vasotec Inj) 1.25 mg PRN Q6HRS PRN IVP HYPERTENSION- 2ND CHOICE Last administered on 09/26/19at 11:31; Start 09/26/19 at 05:45 Lorazepam (Ativan) 8 mg PRN Q1HR PRN PO For CIWA 15 or greater; Start 09/26/19 at 13:15 Lorazepam (Ativan Inj) 6 mg PRN Q1HR PRN IV For CIWA 15 or greater Last admi nistered on 09/26/19at 13:31; Start 09/26/19 at 13:15 Diphenhydramine HCl (Benadryl) 25 mg PRN Q15MIN PRN IVP EPS symptoms 2'Haldol admin Last administered on 09/26/19at 13:32; Start 09/26/19 at 13:15 Pantoprazole Sodium (Protonix) 40 mg DAILYAC PO Last administered on 10/01/19at 09:06; Start 09/28/19 at 07:30 Polyethylene Glycol (miraLAX PACKET) 17 gm DAILY PO Last administered on 09/29/19at 09:57; Start 09/27/19 at 13:00 Polyethylene Glycol (miraLAX PACKET) 17 gm PRN DAILY PRN PO CONSTIPATION- 1ST CHOICE; Start 09/27/19 at 12:45 Lorazepam (Ativan) 2 mg QID PO Last administered on 10/01/19at 09:06; Start 09/28/19 at 09:00 Lactobacillus Rhamnosus (Culturelle) 1 cap BID PO Last administered on 10/01/19at 09:06; Start 09/28/19 at 21:00 Amlodipine Besylate (Norvasc) 5 mg DAILY PO Last administered on 10/01/19at 09:07; Start 09/28/19 at 15:00 Diphenhydramine HCl (Benadryl) 50 mg PRN QHS PRN PO INSOMNIA Last administered on 09/30/19at 22:04; Start 09/28/19 at 21:15 Bisacodyl (Dulcolax Tab) 10 mg PRN DAILY PRN PO CONSTIPATION; Start 09/29/19 at 09:30 Active Scripts Active Protonix (Pantoprazole Sodium) 40 Mg Tablet.dr 40 Mg PO DAILYAC PRN 30 Days Reported Amlodipine Besylate 5 Mg Tablet 5 Mg PO DAILY Proair Hfa Inhaler (Albuterol Sulfate) 8.5 Gm Hfa.aer.ad 1 Puff INH PRN Q4HRS PRN Symbicort 160-4.5 Mcg Inhaler (Budesonide/Formoterol Fumarate) 10.2 Gm Hfa.aer.ad 2 Puff IH BID Theophylline (Theophylline Anhydrous) 400 Mg Tablet.er 300 Mg PO BID Vital Signs Vital Signs Date Time Temp Pulse Resp B/P (MAP) Pulse Ox O2 Delivery O2 Flow Rate FiO2 10/01/19 11:20 97.6 81 18 144/92 (109) 96 Room Air 97.6 10/01/19 08:00 12.0 Labs Laboratory Tests Test 09/29/19 12:12 White Blood Count 10.6 x10^3/uL (4.0-11.0) Red Blood Count 4.15 x10^6/uL (4.30-5.70) Hemoglobin 10.7 g/dL (13.0-17.5) Hematocrit 32.6 % (39.0-53.0) Mean Corpuscular Volume 79 fL (79-100) Mean Corpuscular Hemoglobin 26 pg (25-35) Mean Corpuscular Hemoglobin Concent 33 g/dL (31-37) Red Cell Distribution Width 18.5 % (11.5-14.5) Platelet Count 698 x10^3/uL (140-400) Neutrophils (%) (Auto) 67 % (31-73) Lymphocytes (%) (Auto) 15 % (24-48) Monocytes (%) (Auto) 9 % (0-9) Eosinophils (%) (Auto) 5 % (0-3) Basophils (%) (Auto) 4 % (0-3) Neutrophils # (Auto) 7.1 x10^3/uL (1.8-7.7) Lymphocytes # (Auto) 1.6 x10^3/uL (1.0-4.8) Monocytes # (Auto) 0.9 x10^3/uL (0.0-1.1) Eosinophils # (Auto) 0.5 x10^3/uL (0.0-0.7) Basophils # (Auto) 0.4 x10^3/uL (0.0-0.2) Segmented Neutrophils % 64 % (35-66) Band Neutrophils % 2 % (0-9) Lymphocytes % 15 % (24-48) Monocytes % 13 % (0-10) Eosinophils % 3 % (0-5) Basophils % 3 % (0-3) Toxic Granulation Slight Platelet Estimate Increased (ADEQUATE) Polychromasia Slight Anisocytosis Slight Target Cells Occ Tear Drop Cells Occ Ovalocytes Occ Sodium Level 142 mmol/L (136-145) Potassium Level 4.1 mmol/L (3.5-5.1) Chloride Level 105 mmol/L (98-107) Carbon Dioxide Level 29 mmol/L (21-32) Anion Gap 8 (6-14) Blood Urea Nitrogen 10 mg/dL (8-26) Creatinine 0.9 mg/dL (0.7-1.3) Estimated GFR (Cockcroft-Gault) 92.5 BUN/Creatinine Ratio 11 (6-20) Glucose Level 86 mg/dL (70-99) Calcium Level 8.9 mg/dL (8.5-10.1) Total Bilirubin 0.3 mg/dL (0.2-1.0) Aspartate Amino Transf (AST/SGOT) 24 U/L (15-37) Alanine Aminotransferase (ALT/SGPT) 37 U/L (16-63) Alkaline Phosphatase 53 U/L (46-116) Total Protein 6.4 g/dL (6.4-8.2) Albumin 3.0 g/dL (3.4-5.0) Albumin/Globulin Ratio 0.9 (1.0-1.7) Allergies Allergies Coded Allergies Type Severity Reaction Last Updated Verified No Known Drug Allergies 04/30/16 No Disposition/Orders: D/C to Home w/ HH Hemodynamically unstable?: No Is patient in severe pain?: No Is NPO status required?: No MENDOZA NICOLE MD Oct 01, 2019 12:05
[2019-10-01] MEDS ORDERED: POLY17PO28 PO (12:10)
[2019-10-01] MEDS ORDERED: FOLI0.8C PO (12:10)
[2019-10-01] MEDS ORDERED: MULT-245 PO (12:10)
[2019-10-01] MEDS ORDERED: LACT1CAP19 PO (12:10)
[2019-10-01] MEDS ORDERED: THIA100T57 PO (12:10)
--- NOTE | 2019-10-01 12:11 | SNU/HH DC ---
DISCHARGE WITH HOME HEALTH DISCHARGE INFORMATION: Final Diagnosis: Problems Medical Problems: (1) GI bleed Status: Acute Condition on Discharge: Stable CODE STATUS: Code Status: Full HOME HEALTH: Face to Face: I certify this patient is under my care and that I, or a nurse practitioner or physician's volleyball assistant coach working with me, had a face to face encounter that meets the physician face to face encounter requirements with this patient on []. Medical Complications: Falls, Pneumonia, Other (ALCOHOL ABUSE, GI BLEED) Care Home For: Assess Cardiopulm Status, Assess & Educate Safety, Medication Management RN For Eval/Treatment: Yes Physical Therapy For: Evalulation/Treatment Occupational Therapy For: Evaluation/Treatment Speech Language Pathology For: Evaluation/Treatment Home Health Aide For: Self-care BOWLING BALL WEIGHER AND PACKER For: Community Resources Pt Meets Homebound Status: Poor coordination w/ amb., Fatigue w/ amb. POST DISCHARGE ORDERS: Activity Instructions for Disc: Activity as tolerated Weight Bearing Status after Di: As tolerated DIET AFTER DISCHARGE: Low Sodium 2 gm Wound/Incision Care: No wound care needed CHECKS AFTER DISCHARGE: Checks after discharge: Check blood press - daily, Check your Temp as needed TREATMENT/EQUIPMENT ORDERS: Adaptive Equipment Issued: None, Front wheeled walker CERTIFICATION STATEMENT: Certification Statement: Certification Statement: Based on the above finding, I certify that this patient is confined to the home and needs intermittent jail care, physical therapy and/or speech therapy, or continues to need occupational therapy.~ This patient is under my care, and I have initiated the establishment of the plan of care.~ This patient will be followed by myself or a community physician who will periodically review the plan of care. Home Meds Active Scripts Multivitamin (MULTI VITAMIN DAILY) 1 Each Tablet, 1 TAB PO DAILY for SUPPLEMENT for 30 Days, #30 TAB 0 Refills Prov:MENDOZA NICOLE MD 10/01/19 Thiamine Hcl (VITAMIN B-1) 100 Mg Tablet, 1 TAB PO DAILY for SUPPLEMENT for 30 Days, #30 TAB 0 Refills Prov:MENDOZA NICOLE MD 10/01/19 Folic Acid (Folic Acid) 0.8 Mg Capsule, 1 CAP PO BID for SUPPLEMENT for 30 Days, #60 CAP 0 Refills Prov:MENDOZA NICOLE MD 10/01/19 Lactobacillus Rhamnosus Gg (CULTURELLE) 1 Each Cap.sprink, 1 CAP PO BID for SUPPLEMENT for 30 Days, #60 CAP Prov:MENDOZA NICOLE MD 10/01/19 Polyethylene Glycol 3350 (POLYETHYLENE GLYCOL 3350) 17 Gm Powd.pack, 17 GM PO DAILY for PREVENT CONSTIPATION for 14 Days, #14 PKT Prov:MENDOZA NICOLE MD 10/01/19 Pantoprazole Sodium (PROTONIX ) 40 Mg Tablet.dr, 40 MG PO DAILYAC PRN for DAILY for 30 Days, #30 TAB Prov:MENDOZA NICOLE MD 06/23/19 Reported Medications Amlodipine Besylate (AMLODIPINE BESYLATE) 5 Mg Tablet, 5 MG PO DAILY for high blood pressure , TAB 07/08/19 Albuterol Sulfate (PROAIR HFA INHALER) 8.5 Gm Hfa.aer.ad, 1 PUFF INH PRN Q4HRS PRN for SHORTNESS OF BREATH, INHALER 0 Refills 03/02/18 Budesonide/Formoterol Fumarate (SYMBICORT 160-4.5 MCG INHALER) 10.2 Gm Hfa. aer.ad, 2 PUFF IH BID, #10.6 GM 3 Refills 08/13/16 Theophylline Anhydrous (THEOPHYLLINE) 400 Mg Tablet.er, 300 MG PO BID 08/20/13 MENDOZA NICOLE MD Oct 01, 2019 12:11
--- NOTE | 2019-10-01 13:04 | NUR ---
SS following up with discharge planning. Discharge order on the chart for home with home healthcare. pt is self pay pt. SS unable to find home healthcare company to accept pt for demi services due to polysubstance abuse and walking 500 feet with PT. Pt's RN notified.
--- NOTE | 2019-10-01 14:00 | NUR ---
Discharge instructions given to patient regarding follow up appointments. Education given over signs and symptoms of GI bleeding and alcohol withdrawal. Medication reviewed and prescription given. [facility] contact information given. Patient verbalizes understanding.
== END 2019-10-01 14:19 | disposition home or self-care (01) | DRG 380 ==
LOC: ER 17:15 → 1 WEST ICU 19:15 → 6 SOUTH 09-28 15:24
PROVIDERS: ADMIT Family Medicine; ATTEND Family Medicine
PROC: 0BH17EZ Insertion of Endotracheal Airway into Trachea, Via Natural or Artificial Opening (ICD-10-PCS; 2019-09-14)
PROC: 3E0G8GC Introduction of Other Therapeutic Substance into Upper GI, Via Natural or Artificial Opening Endoscopic (ICD-10-PCS; 2019-09-14)
PROC: 30233N1 Transfusion of Nonautologous Red Blood Cells into Peripheral Vein, Percutaneous Approach (ICD-10-PCS; 2019-09-14)
PROC: 5A1945Z Respiratory Ventilation, 24-96 Consecutive Hours (ICD-10-PCS; principal; 2019-09-14 21:13)
PROC: 02HV33Z Insertion of Infusion Device into Superior Vena Cava, Percutaneous Approach (ICD-10-PCS; 2019-09-18)
PROC: 5A1955Z Respiratory Ventilation, Greater than 96 Consecutive Hours (ICD-10-PCS; 2019-09-20)
PROC: 0BH17EZ Insertion of Endotracheal Airway into Trachea, Via Natural or Artificial Opening (ICD-10-PCS; 2019-09-20)
DX: K22.11 Ulcer of esophagus with bleeding (principal); J96.02 Acute respiratory failure with hypercapnia; G92 Toxic encephalopathy; R57.1 Hypovolemic shock; F10.239 Alcohol dependence with withdrawal, unspecified; D62 Acute posthemorrhagic anemia; D68.9 Coagulation defect, unspecified; F10.27 Alcohol dependence with alcohol-induced persisting dementia; J98.11 Atelectasis; K86.0 Alcohol-induced chronic pancreatitis; K26.4 Chronic or unspecified duodenal ulcer with hemorrhage; I25.10 Atherosclerotic heart disease of native coronary artery without angina pectoris; M10.9 Gout, unspecified; K21.0 Gastro-esophageal reflux disease with esophagitis; F14.10 Cocaine abuse, uncomplicated; K76.0 Fatty (change of) liver, not elsewhere classified; F12.10 Cannabis abuse, uncomplicated; R56.9 Unspecified convulsions; I10 Essential (primary) hypertension; F04 Amnestic disorder due to known physiological condition; E87.8 Other disorders of electrolyte and fluid balance, not elsewhere classified; J45.909 Unspecified asthma, uncomplicated; G47.30 Sleep apnea, unspecified; F32.9 Major depressive disorder, single episode, unspecified; F41.9 Anxiety disorder, unspecified; D69.6 Thrombocytopenia, unspecified; E11.9 Type 2 diabetes mellitus without complications; E83.42 Hypomagnesemia; F10.229 Alcohol dependence with intoxication, unspecified; F10.26 Alcohol dependence with alcohol-induced persisting amnestic disorder; F17.210 Nicotine dependence, cigarettes, uncomplicated; G47.33 Obstructive sleep apnea (adult) (pediatric); H54.62 Unqualified visual loss, left eye, normal vision right eye; K21.9 Gastro-esophageal reflux disease without esophagitis; K70.40 Alcoholic hepatic failure without coma; K74.60 Unspecified cirrhosis of liver; M54.12 Radiculopathy, cervical region; Z91.19 Patient's noncompliance with other medical treatment and regimen; Z87.11 Personal history of peptic ulcer disease; Z86.718 Personal history of other venous thrombosis and embolism; Z82.49 Family history of ischemic heart disease and other diseases of the circulatory system; Z81.1 Family history of alcohol abuse and dependence
CPT/HCPCS: 36415; 36430; 36569; 36600; 43236; 43255; 70450; 71045; 74018; 74176; 80048; 80053; 80307; 81001; 82140; 82607; 82805; 83605; 83735; 84100; 84443; 84484; 85007; 85025; 85027; 85610; 86850; 86900; 86901; 86920; 93005; 93971; 94002; 94003; 94640; 94760; 96365; 96375; C9113; G0480; J0171; J0360; J0696; J1200; J1630; J1953; J2001; J2060; J2250; J2370; J2405; J2543; J2704; J2997; J3010; J3411; J3475; J3480; J3490; J7030; J7060; P9016; 97116; 97530; 97535; 99285-25; G0378; J7613; J7626; Q0163

== ENCOUNTER 2020-09-07 01:14 | Emergency (ER) | payer SELFPAY ==
[~2020-09-07] VITALS: Ht 182.9 cm; Wt 104.5 kg
[~2020-09-07 01:14] MED LIST changes: +AMLO-186 PO; -AMLO5TAB10 PO; +FLUO20CA16 PO; +FOLI0.8C PO; +LACT1CAP19 PO; +MULT-245 PO; +POLY17PO28 PO; +THEO300C PO; -WARF-78 PO; +WARF5TAB2 PO
--- NOTE | 2020-09-07 01:50 | PHYS DOC ---
Past Medical History Past Medical History: Alcoholism, Asthma, GI Bleed Additional Past Medical Histor: bleeding varices Past Surgical History: Tonsillectomy Additional Past Surgical Histo: repair of GI bleed Smoking Status: Never Smoker Alcohol Use: Heavy Drug Use: Cocaine, Marijuana General Adult EDM: Chief Complaint: HEMATEMESIS/VOMITING BLOOD HPI: HPI: Patient is a 45 year old male with a PMH of severe alcohol abuse disorder and pancreatitis that presents for hematemesis and abdominal pain. He was recently admitted for this and discharged yesterday, with no findings of pancreatits at that time. He states that today he drank a pint of vodka around 9 PM and 30 minutes later vomited 3 times, all times containing material that looked like coffee grounds. He is nauseous, dizzy, and sweaty. He vomited one more time before presenting to ED but without blood. He also states he has been having abdominal pain since before his admission on 06/30. He states this pain has significantly increased. It is located in his LUQ radiating through to his back. It is constant but becomes more severe at times with sharp shooting pains. Laying flat makes it worse but sitting very still makes it better. He states he has had pancreatitis in the past and this feels the same. He denies syncope, chest pain, upper back pain, shortness of breath, diarrhea, or numbness or tingling anywhere. Review of Systems: Review of Systems: Constitutional: Denies fever or chills. [] Eyes: Denies change in visual acuity. [] HENT: Denies nasal congestion or sore throat. [] Respiratory: Denies cough or shortness of breath. [] Cardiovascular: Denies chest pain or edema. [] GI: Positive abdominal pain, nausea, vomiting, and hematemesis denies bloody stools or diarrhea. [] : Denies dysuria. [] Musculoskeletal: Denies back pain or joint pain. [] Integument: Denies rash. [] Neurologic: Positive headache, denies focal weakness or sensory changes. [] Endocrine: Denies polyuria or polydipsia. [] Lymphatic: Denies swollen glands. [] Psychiatric: Denies depression or anxiety. [] Heart Score: Risk Factors: Risk Factors: DM, Current or recent (<one month) smoker, HTN, HLP, family history of CAD, obesity. Risk Scores: Score 0 - 3: 2.5% MACE over next 6 weeks - Discharge Home Score 4 - 6: 20.3% MACE over next 6 weeks - Admit for Clinical Observation Score 7 - 10: 72.7% MACE over next 6 weeks - Early Invasive Strategies Current Medications: Current Medications Medications (Trade) Dose Ordered Sig/Wil Start Time Stop Time Status Last Admin Dose Admin Ondansetron HCl (Zofran) 4 mg 1X ONCE 09/07/20 02:00 09/07/20 02:01 Sodium Chloride 1,000 ml @ 1,000 mls/hr 1X ONCE 09/07/20 02:00 09/07/20 02:59 Allergies: Allergies: Allergies Coded Allergies Type Severity Reaction Last Updated Verified No Known Drug Allergies 04/30/16 No Physical Exam: PE: Constitutional: Well developed, well nourished, no acute distress, non-toxic appearance. [] HENT: Normocephalic, atraumatic, bilateral external ears normal, oropharynx moist, no oral exudates, nose normal. [] Eyes: PERRLA, EOMI, conjunctiva normal, no discharge. [] Neck: Normal range of motion, no tenderness, supple, no stridor. [] Cardiovascular:Heart rate regular rhythm, no murmur [] Lungs & Thorax: Bilateral breath sounds clear to auscultation [] Abdomen: Bowel sounds normal, soft, no tenderness, no masses, no pulsatile masses. [] Skin: Warm, dry, no erythema, no rash. [] Back: No tenderness, no CVA tenderness. [] Extremities: No tenderness, no cyanosis, no clubbing, ROM intact, no edema. [] Neurologic: Alert and oriented X 3, normal motor function, normal sensory function, no focal deficits noted. [] Psychologic: Affect normal, judgement normal, mood normal. [] Current Patient Data: Vital Signs: Vital Signs Date Time Temp Pulse Resp B/P (MAP) Pulse Ox O2 Delivery O2 Flow Rate FiO2 09/07/20 01:26 98.0 113 24 142/94 98 98.0 EKG: EKG: [] Radiology/Procedures: Radiology/Procedures: [] Course & Med Decision Making: Course & Med Decision Making Pertinent Labs and Imaging studies reviewed. (See chart for details) [] Patient was evaluated for chief complaint. Work-up consisted of laboratory analysis. Results reviewed. Patient with elevated lipase. Patient with no episodes of vomiting in the emergency department. Patient requesting requesting morphine fentanyl Ativan for his pain and anxiety. 0430hrs- Patient informed nursing he would like to leave. Patient signed out AMA. Hemant Disclaimer: Hemant Disclaimer: This electronic medical record was generated, in whole or in part, using a voice recognition dictation system. Departure Departure Impression: Primary Impression: Alcoholism Additional Impressions: Abdominal pain Pancreatitis Disposition: 07 AMA/ELOPED/LWBS Condition: STABLE Referrals: HERMILA JACKSON MD (PCP) JAYDA DUBOIS DO Sep 07, 2020 01:50
[2020-09-07] MEDS ORDERED: IV NORMAL SALINE 1000ML BAG 1,000 ML IV ONE (02:00)
[2020-09-07] MEDS ORDERED: ONDANSETRON PF 4 MG/2 ML VIAL. IVP ONE (02:00)
[2020-09-07 02:14] LABS: BASO % 1 % (0-3); EOS # 0.2 x10^3/uL (0.0-0.7); EOS % 2 % (0-3); HEMATOCRIT 40.7 % (39.0-53.0); HEMOGLOBIN 12.8 g/dL (13.0-17.5); LYMPH # 1.4 x10^3/uL (1.0-4.8); LYMPH % 19 % (24-48); MEAN CORPUSCULAR HEMOGLOBIN 23 pg (25-35); MEAN CORPUSCULAR HGB CONC 31 g/dL (31-37); MEAN CORPUSCULAR VOLUME 73 fL (79-100); MONO # 0.8 x10^3/uL (0.0-1.1); MONO % 12 % (0-9); NEUT # 4.9 x10^3/uL (1.8-7.7); NEUT % 67 % (31-73); PLATELET COUNT 181 x10^3/uL (140-400); RED BLOOD COUNT 5.57 x10^6/uL (4.30-5.70); RED CELL DISTRIBUTION WIDTH 21.2 % (11.5-14.5); WHITE BLOOD COUNT 7.4 x10^3/uL (4.0-11.0)
[2020-09-07 02:23] LABS: PROTHROMBIN TIME PATIENT 13.9 SEC (11.7-14.0)
[2020-09-07 02:24] LABS: CALCIUM 8.8 mg/dL (8.5-10.1); CREATININE 1.1 mg/dL (0.7-1.3); GFR 73.1; POTASSIUM 4.1 mmol/L (3.5-5.1)
[2020-09-07 02:30] LABS: ALBUMIN 3.5 g/dL (3.4-5.0); ALBUMIN/GLOBULIN RATIO 0.8 (1.0-1.7); TOTAL BILIRUBIN 0.4 mg/dL (0.2-1.0); TOTAL PROTEIN 7.9 g/dL (6.4-8.2)
[2020-09-07 03:15] VITALS: BP 150/57
[2020-09-07 04:45] LABS: PLT ESTIMATE ADEQUATE (ADEQUATE); POLYCHROMASIA SLIGHT
[2020-09-07 04:46] LABS: ANISOCYTOSIS MOD; HYPOCHROMIA MOD; MICROCYTOSIS SLIGHT; OVALOCYTES OCC; TEAR DROP CELLS OCC
== END 2020-09-07 04:25 | disposition left against medical advice (07) ==
LOC: ER 01:14
DX: K85.90 Acute pancreatitis without necrosis or infection, unspecified (principal); J45.909 Unspecified asthma, uncomplicated; F10.20 Alcohol dependence, uncomplicated; Y90.3 Blood alcohol level of 60-79 mg/100 ml
CPT/HCPCS: 36415; 80053; 83690; 85025; 85610; 85730; 96361; 96374; 99284; G0480; J2405; J7030